=== PATIENT | male | born 1990 | race Caucasian/White ===

== ENCOUNTER 2023-09-18 15:11 | Inpatient (IN) ==
--- NOTE | 2023-09-18 17:08 | Emergency Department Note ---
Impression & Plan Nausea & vomiting, Pancytopenia, Burkitt lymphoma ED Provider Note ED Provider Note NAME: OMEGA SALVADOR AGE:32 SEX: Male : 1990 ARRIVES VIA: Private vehicle INFORMANT: Patient ED PROVIDER(s): Veena Kay DO CHIEF COMPLAINT: Nausea and vomiting, fatigue, tongue swelling HPI: This is a 32-year-old male with a history of Burkitt's lymphoma who presents emergency department with mother at bedside due to concern for increased fatigue today, sense of tongue swelling, as well as nausea and 2 episodes of vomiting. Mom states his last chemo was last week and this was his off week. She states he got a blood transfusion yesterday as an outpatient due to his red blood cell counts being low. She states his platelets are always low but were not low enough to need an infusion for. She states his labs yesterday showed a white blood cell count of 0.5. She states he did well with the transfusion and has not not had reactions as he has had transfusions in the past. She states he woke up with symptoms today. She states he did note that his father picked him up from the blood transfusion and then took him to the local public swimming pool to see friends. She is concerned he could have picked up an illness there. She states he denied shortness of breath or abdominal pain. She states no fevers or chills noted. No recent change in urine or stools. PAST MEDICAL HISTORY:See Below PAST SURGICAL HISTORY:See Below FAMILY HISTORY:See Below SOCIAL HISTORY:See Below HOME MEDICATIONS:See Below ALLERGIES:See Below VITALS:See Below PHYSICAL EXAMINATION: GENERAL: alert, ill appearing, well nourished, no distress, non-toxic EYE EXAM: normal conjunctiva, PERRL and EOM's grossly intact OROPHARYNX: no exudate, no erythema, lips, buccal mucosa, and tongue normal and mucous membranes are moist NECK: supple, no nuchal rigidity, no adenopathy, non-tender LUNGS: Clear to auscultation. Normal chest wall mechanics, no w/r/r HEART: no murmurs, S1 normal and S2 normal, port noted to right anterior superior chest wall ABDOMEN: abdomen soft, non-tender, normo-active bowel sounds, no masses, no rebound or guarding. SKIN: no rashes, petechiae, orbruising, pale UPPER EXTREMITIES: upper extremities are grossly normal. FROM, nml pulses b/l. LOWER EXTREMITIES: No pitting edema. FROM, nml pulses b/l. NEURO EXAM: Normal sensorium, cranial nerves II-XII grossly intact, normal speech, no facial droop,nogross weakness of arms, no gross weakness of legs. Gross sensation intact. No ataxia. Vital Signs: reviewed and remarkable Differential Diagnosis: Bacteremia, sepsis, viral syndrome, medication ADR, SANTA, electrolyte abnormality, as well as others were considered MEDICAL DECISION MAKING: This is a 32-year-old male with a history of recurrent lymphoma currently undergoing chemotherapy treatment who presents due to increased weakness/fatigue as well as 2 episodes of vomiting earlier today and decreased oral intake. Labs drawn and sent, IV established, and patient monitored on telemetry. He was started on IV fluids. I was able to review with mom blood work from yesterday via his [facility] portal as this was done as an outpatient. Labs here today show worsening pancytopenia. Given known history and current presentation I did contact heme-onc. I did recommend use of blood cultures despite national shortage, addition of urinalysis, chest x-ray, and viral panel. I did discuss the pancytopenia and threshold for transfusion this patient did receive an outpatient transfusion of packed RBCs yesterday. She was in agreement with plan for additional transfusion of packed red cells and would also recommend a unit of platelets. Transfusion consent form signed at bedside and patient and mom verbalized understanding. These were ordered and started. Patient initially did feel slightly improved and asked to try things by mouth, however became nauseated again. He was given Zofran and then felt more fatigued again. Patient continued to be fatigued in appearance although denied any current plaints of headache, chest pain, shortness of breath, abdominal pain. Had no further vomiting and no diarrhea while in the emergency department. Patient then developed a fever of 38.1. Heme-onc was updated and case discussed with the hospitalist team for additional evaluation and management. Cefepime and vancomycin was added additionally. Consultation(s): 0656: Discussed with Dr. Jason. Feels counts are likely lower from the effects of chemotherapy last week although patient is still at high risk of infection. Recommends adding chest x-ray, urinalysis, blood culture, and transfusing the patient with packed RBCs as well as 1 unit of platelets. She states if patient remained stable and can be discharged home, would recommend transfusion 2 units of packed RBCs now and have close follow-up with his usual oncologist on Thursday. If this cannot be safely arranged or the patient appears worse, would transfuse 1 unit packed red cells tonight and admit the patient overnight for additional observation. 2320: [facility] and mgmt. ER Treatment Provided: See below Diagnostics Interpreted By Me: -Cardiac Monitoring: An order was placed for continuous cardiac monitoring. The monitor shows a rate of 92 with normal sinus rhythm. -Laboratory studies: As stated above and show below. -Imaging studies: X-ray Chest: A single view study of the chest was reviewed and was negative for cardiomegaly, focal infiltrate, effusion, pulmonary edema, or wide mediastinum. Port noted on the right Triage Nursing Note Reviewed Prior/Outside Records Reviewed - outpatient labs from yesterday Critical Care: Critical care of 48 min performed to assess and manage high likelihood of life- threatening pancytopenia, involving labs and imaging performed with assessment to evaluate weakness and Burkitt's lymphoma diagnosis with frequent reassessment. This time includes bedside time, treatment discussions with patient/family/consultants, documentation time and excludes procedure time. 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) Hypertension Cerebral vasculitis Surgical History S/P tonsillectomy Family History Mother Hypertension Social History Smoking Status: Former smoker Tobacco Type: Cigarettes Age Quit Using Tobacco: 30; Cigarettes Per Day: 10; Smoking End Date: quit 2 years ago; Second Hand Exposure: No; Do You Dip or Chew Tobacco: No; Tobacco Cessation Education Requested by Patient: No Hx Alcohol Use: No Hx Substance Use: No Preferred Language: Bengali Communication Ability: Effective Hand Cloth Examiner Required: No Beliefs That Will Affect Care: None marital status: Single Current Living Situation: Family Current Living Situation Comment: lives with s/o current occupational status: disabled Other Information That Helps Us Care for You: No Feels Safe at Home: Yes Safety Concerns: Feels Safe At This Time Assistive Devices: None Assistive Devices Comment: right chest port Allergies Allergies Allergy/AdvReac Type Severity Reaction Status Date / Time No Known Allergies Allergy Verified 09/18/23 20:24 Home Meds Home Medications Medication Instructions Recorded Confirmed celecoxib 200 mg capsule 200 mg PO QAM 07/02/21 09/18/23 hydrochlorothiazide 12.5 mg tablet 12.5 mg PO DAILY 07/02/21 09/18/23 aspirin 81 mg tablet,delayed 81 mg PO DAILY 12/03/21 09/18/23 release (Brad Low Dose Aspirin) divalproex 500 mg tablet,extended 500 mg PO BID 12/03/21 09/18/23 release 24 hr (Depakote ER) propranolol 40 mg tablet 40 mg PO BID 12/03/21 09/18/23 topiramate 100 mg tablet (Topamax) 100 mg PO BID 12/03/21 09/18/23 Magic Swizzle 15 ml mucous membrane QID MOUTH 09/18/23 09/18/23 IRRITATION acyclovir 400 mg tablet 400 mg PO BID 09/18/23 09/18/23 albuterol sulfate 90 mcg/actuation 2 inh inhalation Q4H PRN Shortness 09/18/23 09/18/23 aerosol inhaler Of Breath Or Wheezing allopurinol 300 mg tablet 300 mg PO QAM 09/18/23 09/18/23 buprenorphine HCl 2 mg sublingual 1 mg sublingual BID 09/18/23 09/18/23 tablet cetirizine 10 mg tablet 10 mg PO QAM 09/18/23 09/18/23 famotidine 20 mg tablet 20 mg PO DAILY 09/18/23 09/18/23 fluconazole 200 mg tablet 400 mg PO QAM 09/18/23 09/18/23 fluticasone 250 mcg-salmeterol 50 1 inh inhalation BID 09/18/23 09/18/23 mcg/dose blistr powdr for inhalation levofloxacin 750 mg tablet 750 mg PO QAM PRN IF ANC <500. 09/18/23 09/18/23 morphine 15 mg immediate release 15 mg PO Q6H PRN Pain 09/18/23 09/18/23 tablet ondansetron HCl 4 mg tablet 4 mg PO Q6H PRN NAUSEA/VOMTING 09/18/23 09/18/23 ondansetron HCl 8 mg tablet 8 mg PO Q8H PRN NAUSEA/VOMITING 09/18/23 09/18/23 pantoprazole 40 mg tablet,delayed 40 mg PO DAILYBB 09/18/23 09/18/23 release potassium chloride 10 mEq 20 meq PO BID 09/18/23 09/18/23 tablet,extended release(part/cryst) sulfamethoxazole 400 1 tab PO QAM 09/18/23 09/18/23 mg-trimethoprim 80 mg tablet Results & Data (ED) Vital Signs Vital Signs - 24 hr 09/18/23 15:15 09/18/23 15:40 09/18/23 15:40 Temperature 36.6 C Temperature Source Temporal Artery Scan Pulse Rate 103 H Pulse Rate from SpO2 Sensor Pulse Rhythm Pulse Strength Respiratory Rate 20 Respiratory Effort / Characteristics Non-Labored Spontaneous Respiratory Depth Normal Blood Pressure 127/87 128/79 128/79 Blood Pressure Mean 100 84 84 Blood Pressure Position Pulse Oximetry 100 Oxygen Delivery Method Room Air Sepsis Recent Fever Within 48 Hours No Sepsis New/Unexplained Change in Mental Status No Sepsis Action Taken by Nursing No Action Required 09/18/23 15:41 09/18/23 15:42 09/18/23 16:06 Temperature Temperature Source Pulse Rate 99 H 100 H 94 H Pulse Rate from SpO2 Sensor 98 H 94 H Pulse Rhythm Pulse Strength Respiratory Rate 17 15 Respiratory Effort / Characteristics Respiratory Depth Blood Pressure Blood Pressure Mean Blood Pressure Position Pulse Oximetry 98 97 Oxygen Delivery Method Sepsis Recent Fever Within 48 Hours Sepsis New/Unexplained Change in Mental Status Sepsis Action Taken by Nursing 09/18/23 16:30 09/18/23 16:30 09/18/23 16:30 Temperature Temperature Source Pulse Rate 89 Pulse Rate from SpO2 Sensor 89 Pulse Rhythm Pulse Strength Respiratory Rate 15 Respiratory Effort / Characteristics Respiratory Depth Blood Pressure 111/67 111/67 Blood Pressure Mean 74 74 Blood Pressure Position Pulse Oximetry 99 Oxygen Delivery Method Sepsis Recent Fever Within 48 Hours Sepsis New/Unexplained Change in Mental Status Sepsis Action Taken by Nursing 09/18/23 16:54 09/18/23 17:00 09/18/23 17:00 Temperature Temperature Source Pulse Rate 85 Pulse Rate from SpO2 Sensor 85 Pulse Rhythm Pulse Strength Respiratory Rate 14 Respiratory Effort / Characteristics Respiratory Depth Blood Pressure 126/80 126/80 Blood Pressure Mean 97 97 Blood Pressure Position Pulse Oximetry 100 Oxygen Delivery Method Sepsis Recent Fever Within 48 Hours Sepsis New/Unexplained Change in Mental Status Sepsis Action Taken by Nursing 09/18/23 17:03 09/18/23 17:33 09/18/23 18:18 Temperature Temperature Source Pulse Rate 90 108 H 92 H Pulse Rate from SpO2 Sensor 89 92 H Pulse Rhythm Pulse Strength Respiratory Rate 15 19 14 Respiratory Effort / Characteristics Respiratory Depth Blood Pressure Blood Pressure Mean Blood Pressure Position Pulse Oximetry 100 99 Oxygen Delivery Method Sepsis Recent Fever Within 48 Hours Sepsis New/Unexplained Change in Mental Status Sepsis Action Taken by Nursing 09/18/23 18:30 09/18/23 18:30 09/18/23 18:30 Temperature Temperature Source Pulse Rate 96 H Pulse Rate from SpO2 Sensor 95 H Pulse Rhythm Pulse Strength Respiratory Rate 14 Respiratory Effort / Characteristics Respiratory Depth Blood Pressure 138/78 138/78 Blood Pressure Mean 94 94 Blood Pressure Position Pulse Oximetry 100 Oxygen Delivery Method Sepsis Recent Fever Within 48 Hours Sepsis New/Unexplained Change in Mental Status Sepsis Action Taken by Nursing 09/18/23 18:30 09/18/23 19:00 09/18/23 19:06 Temperature Temperature Source Pulse Rate 99 H Pulse Rate from SpO2 Sensor 97 H Pulse Rhythm Pulse Strength Respiratory Rate 9 L Respiratory Effort / Characteristics Respiratory Depth Blood Pressure 138/78 Blood Pressure Mean 94 Blood Pressure Position Pulse Oximetry 99 Oxygen Delivery Method Sepsis Recent Fever Within 48 Hours Sepsis New/Unexplained Change in Mental Status Sepsis Action Taken by Nursing 09/18/23 19:20 09/18/23 19:30 09/18/23 19:30 Temperature Temperature Source Pulse Rate 94 H Pulse Rate from SpO2 Sensor Pulse Rhythm Pulse Strength Respiratory Rate 17 Respiratory Effort / Characteristics Respiratory Depth Blood Pressure 127/84 126/78 Blood Pressure Mean 108 101 Blood Pressure Position Pulse Oximetry Oxygen Delivery Method Sepsis Recent Fever Within 48 Hours Sepsis New/Unexplained Change in Mental Status Sepsis Action Taken by Nursing 09/18/23 19:30 09/18/23 19:30 09/18/23 20:00 Temperature Temperature Source Pulse Rate 95 H Pulse Rate from SpO2 Sensor Pulse Rhythm Pulse Strength Respiratory Rate 14 Respiratory Effort / Characteristics Respiratory Depth Blood Pressure 126/78 126/78 Blood Pressure Mean 101 101 Blood Pressure Position Pulse Oximetry Oxygen Delivery Method Sepsis Recent Fever Within 48 Hours Sepsis New/Unexplained Change in Mental Status Sepsis Action Taken by Nursing 09/18/23 20:12 09/18/23 20:24 09/18/23 20:24 Temperature 36.9 C Temperature Source Oral Pulse Rate 97 H 102 H Pulse Rate from SpO2 Sensor Pulse Rhythm Regular Pulse Strength Normal Respiratory Rate 17 17 Respiratory Effort / Characteristics Respiratory Depth Blood Pressure 135/77 135/77 Blood Pressure Mean 96 90 Blood Pressure Position Lying Pulse Oximetry 100 100 Oxygen Delivery Method Room Air Sepsis Recent Fever Within 48 Hours Sepsis New/Unexplained Change in Mental Status Sepsis Action Taken by Nursing 09/18/23 20:43 09/18/23 20:58 09/18/23 21:28 Temperature 37.4 C 37.7 C H 37.3 C Temperature Source Oral Oral Oral Pulse Rate 105 H 102 H 103 H Pulse Rate from SpO2 Sensor Pulse Rhythm Regular Regular Pulse Strength Normal Normal Respiratory Rate 16 16 18 Respiratory Effort / Characteristics Respiratory Depth Blood Pressure 140/93 159/87 H 147/77 H Blood Pressure Mean 108 111 100 Blood Pressure Position Lying Lying Pulse Oximetry 100 100 100 Oxygen Delivery Method Sepsis Recent Fever Within 48 Hours Sepsis New/Unexplained Change in Mental Status Sepsis Action Taken by Nursing 09/18/23 21:28 09/18/23 22:28 09/18/23 23:28 Temperature 37.3 C 37.8 C H 38.1 C H Temperature Source Oral Oral Oral Pulse Rate 100 H 98 H 104 H Pulse Rate from SpO2 Sensor Pulse Rhythm Regular Regular Regular Pulse Strength Normal Normal Normal Respiratory Rate 16 16 17 Respiratory Effort / Characteristics Respiratory Depth Blood Pressure 147/77 H 123/71 136/83 Blood Pressure Mean 100 88 100 Blood Pressure Position Lying Lying Lying Pulse Oximetry 100 99 100 Oxygen Delivery Method Sepsis Recent Fever Within 48 Hours Sepsis New/Unexplained Change in Mental Status Sepsis Action Taken by Nursing 09/19/23 00:30 09/19/23 00:50 09/19/23 01:05 Temperature 36.8 C 36.6 C 37.4 C Temperature Source Oral Oral Oral Pulse Rate 103 H 102 H 108 H Pulse Rate from SpO2 Sensor Pulse Rhythm Regular Regular Regular Pulse Strength Normal Normal Normal Respiratory Rate 14 17 19 Respiratory Effort / Characteristics Respiratory Depth Blood Pressure 132/73 129/65 108/65 Blood Pressure Mean 92 86 79 Blood Pressure Position Lying Lying Lying Pulse Oximetry 98 99 98 Oxygen Delivery Method Sepsis Recent Fever Within 48 Hours Sepsis New/Unexplained Change in Mental Status Sepsis Action Taken by Nursing 09/19/23 01:35 Temperature 37.6 C Temperature Source Oral Pulse Rate 107 H Pulse Rate from SpO2 Sensor Pulse Rhythm Regular Pulse Strength Normal Respiratory Rate 14 Respiratory Effort / Characteristics Respiratory Depth Blood Pressure 134/74 Blood Pressure Mean 94 Blood Pressure Position Lying Pulse Oximetry 100 Oxygen Delivery Method Sepsis Recent Fever Within 48 Hours Sepsis New/Unexplained Change in Mental Status Sepsis Action Taken by Nursing Laboratory Data 09/19/23 10:58 09/19/23 10:58 Lab Results 09/18/23 09/18/23 09/18/23 Range/Units 15:40 18:51 18:55 WBC 0.11 L* (4.8-10.8) K/ul RBC 2.13 L (4.70-6.10) M/uL Hgb 6.4 L* (14.0-18.0) g/dl Hct 18.8 L* (42.0-52.0) % MCV 88.3 (80.0-100.0) fL MCH 30.0 (25.0-34.0) pg MCHC 34.0 (32.0-36.0) g/dL RDW Std Deviation 54.6 H (36.4-46.3) fL RDW Coeff of Anastasiia 17.0 H (11.5-14.5) % Plt Count 14 L* (130-400) K/uL Neut # (Auto) < 0.50 L* (1.40-6.50) K/uL Sodium 138 (136-145) mmol/L Potassium 3.2 L (3.5-5.1) mmol/L Chloride 107 (98-107) mmol/L Carbon Dioxide 24 (21-32) mmol/L Anion Gap 7 (3-11) BUN 11 (6-23) mg/dl Creatinine 0.55 L (0.6-1.4) mg/dl Est Cr Clr Drug Dosing 236.6 ml/min Est GFR ( Amer) > 150.0 ml/min Est GFR (Non-Af Amer) 136.0 ml/min BUN/Creatinine Ratio 20.0 (10-20) Glucose 134 H (70-99(Fasting)) mg/dl Calcium 9.3 (8.6-10.3) mg/dl Magnesium 1.7 (1.7-2.4) mg/dl Total Bilirubin 0.8 (0.2-1.0) mg/dl AST 10 L (13-39) U/L ALT 20 (7-52) U/L Alkaline Phosphatase 70 (34-104) U/L Total Protein 6.0 (6.0-8.3) gm/dl Albumin 3.9 (3.4-5.0) gm/dl Globulin 2.1 L (2.5-4.0) gm/dl Albumin/Globulin Ratio 1.9 (0.9-2) Urine Color Yellow Urine Appearance Clear (Clear) Urine pH 7.0 (4.5-7.5) Ur Specific [place] 1.015 (1.000-1.030) Urine Protein Negative (Negative) Urine Glucose (UA) Negative (Negative) Urine Ketones Negative (Negative) Urine Blood Negative (Negative) Urine Nitrite Negative (Negative) Urine Bilirubin Negative (Negative) Urine Urobilinogen Negative (Negative) Ur Leukocyte Esterase Negative (Negative) Adenovirus (PCR) Not Detected (NotDetected) B. pertussis DNA (PCR) Not Detected (NotDetected) B.parapertussis DNA PCR Not Detected (NotDetected) C. pneumoniae DNA (PCR) Not Detected (NotDetected) Coronavirus OC43 (PCR) Not Detected (NotDetected) Coronavirus HKU1 (PCR) Not Detected (NotDetected) Coronavirus 229E (PCR) Not Detected (NotDetected) SARS-CoV-2 (PCR) Not Detected (NotDetected) Coronavirus NL63 (PCR) Not Detected (NotDetected) Human Metapneumovir PCR Not Detected (NotDetected) Influenza Type A (PCR) Not Detected (NotDetected) Influenza Type B (PCR) Not Detected (NotDetected) M. pneumoniae (PCR) Not Detected (NotDetected) Parainfluenza 1 (PCR) Not Detected (NotDetected) Parainfluenza 2 (PCR) Not Detected (NotDetected) Parainfluenza 3 (PCR) Not Detected (NotDetected) Parainfluenza 4 (PCR) Not Detected (NotDetected) RSV (PCR) Not Detected (NotDetected) Entero/Rhino (PCR) Not Detected (NotDetected) Blood Type O Positive Blood Type Recheck Antibody Screen NEGATIVE Crossmatch See Detail 09/18/23 Range/Units 19:21 WBC (4.8-10.8) K/ul RBC (4.70-6.10) M/uL Hgb (14.0-18.0) g/dl Hct (42.0-52.0) % MCV (80.0-100.0) fL MCH (25.0-34.0) pg MCHC (32.0-36.0) g/dL RDW Std Deviation (36.4-46.3) fL RDW Coeff of Anastasiia (11.5-14.5) % Plt Count (130-400) K/uL Neut # (Auto) (1.40-6.50) K/uL Sodium (136-145) mmol/L Potassium (3.5-5.1) mmol/L Chloride (98-107) mmol/L Carbon Dioxide (21-32) mmol/L Anion Gap (3-11) BUN (6-23) mg/dl Creatinine (0.6-1.4) mg/dl Est Cr Clr Drug Dosing ml/min Est GFR ( Amer) ml/min Est GFR (Non-Af Amer) ml/min BUN/Creatinine Ratio (10-20) Glucose (70-99(Fasting)) mg/dl Calcium (8.6-10.3) mg/dl Magnesium (1.7-2.4) mg/dl Total Bilirubin (0.2-1.0) mg/dl AST (13-39) U/L ALT (7-52) U/L Alkaline Phosphatase (34-104) U/L Total Protein (6.0-8.3) gm/dl Albumin (3.4-5.0) gm/dl Globulin (2.5-4.0) gm/dl Albumin/Globulin Ratio (0.9-2) Urine Color Urine Appearance (Clear) Urine pH (4.5-7.5) Ur Specific [place] (1.000-1.030) Urine Protein (Negative) Urine Glucose (UA) (Negative) Urine Ketones (Negative) Urine Blood (Negative) Urine Nitrite (Negative) Urine Bilirubin (Negative) Urine Urobilinogen (Negative) Ur Leukocyte Esterase (Negative) Adenovirus (PCR) (NotDetected) B. pertussis DNA (PCR) (NotDetected) B.parapertussis DNA PCR (NotDetected) C. pneumoniae DNA (PCR) (NotDetected) Coronavirus OC43 (PCR) (NotDetected) Coronavirus HKU1 (PCR) (NotDetected) Coronavirus 229E (PCR) (NotDetected) SARS-CoV-2 (PCR) (NotDetected) Coronavirus NL63 (PCR) (NotDetected) Human Metapneumovir PCR (NotDetected) Influenza Type A (PCR) (NotDetected) Influenza Type B (PCR) (NotDetected) M. pneumoniae (PCR) (NotDetected) Parainfluenza 1 (PCR) (NotDetected) Parainfluenza 2 (PCR) (NotDetected) Parainfluenza 3 (PCR) (NotDetected) Parainfluenza 4 (PCR) (NotDetected) RSV (PCR) (NotDetected) Entero/Rhino (PCR) (NotDetected) Blood Type Blood Type Recheck O Positive Antibody Screen Crossmatch Administered Medications Acetaminophen (Acetaminophen 325 Mg Tab) 650 mg PO Q4H PRN PRN Reason: Pain or Fever Stop: 10/19/23 04:36 Last Admin: 09/19/23 09:07 Dose: 650 mg Documented By: LUIS Acyclovir (Acyclovir 400 Mg Tab) 400 mg PO BID [facility] Stop: 10/19/23 08:59 Last Admin: 09/19/23 08:05 Dose: 400 mg Documented By: LUIS Allopurinol (Allopurinol 300 Mg Tab) 300 mg PO QAM [facility] Stop: 10/19/23 08:59 Last Admin: 09/19/23 08:06 Dose: 300 mg Documented By: LUIS Aspirin (Aspirin 81 Mg Ectab) 81 mg PO DAILY [facility] [place] Stop: 10/19/23 08:59 Last Admin: 09/19/23 08:56 Dose: Not Given Documented By: LUIS Buprenorphine HCl (Buprenorphine Hcl 2 Mg Subl) 1 mg SL BID [facility] Stop: 10/19/23 08:59 Last Admin: 09/19/23 08:15 Dose: 1 mg Documented By: LUIS Cetirizine HCl (Cetirizine Hcl 10 Mg Tablet) 10 mg PO QAM [facility] Stop: 10/19/23 08:59 Last Admin: 09/19/23 08:06 Dose: 10 mg Documented By: LUIS Divalproex Sodium (Divalproex Extended Release 500 Mg Tab) 500 mg PO BID [facility] [place] Stop: 10/19/23 08:59 Last Admin: 09/19/23 08:05 Dose: 500 mg Documented By: LUIS Famotidine (Famotidine 20 Mg Tab) 20 mg PO DAILY [facility] Stop: 10/19/23 08:59 Last Admin: 09/19/23 08:06 Dose: 20 mg Documented By: LUIS Fluconazole (Fluconazole 100 Mg Tab) 400 mg PO QAM [facility] Stop: 10/19/23 08:59 Last Admin: 09/19/23 08:06 Dose: 400 mg Documented By: LUIS Fluticasone/Vilanterol (Fluticasone/Vilanterol 200/25mcg 14 Puffs/Inhaler) 1 puffs INH DAILY [facility] Stop: 10/19/23 08:59 Last Admin: 09/19/23 07:54 Dose: 1 puffs Documented By: LUIS Sodium Chloride (Nss) 1,000 mls @ 80 mls/hr IV .[id number] [facility] Stop: 10/19/23 04:36 Last Admin: 09/19/23 05:43 Dose: 80 mls/hr Documented By: MIKO Cefepime HCl 2,000 mg/ Syringe 20 mls @ 5 mls/min IV Q8H [facility]; Protocol Stop: 09/26/23 07:59 Last Admin: 09/19/23 07:55 Dose: 5 mls/min Documented By: LUIS Vancomycin HCl 1,500 mg/ (Sodium Chloride) 530 mls @ 200 mls/hr IV Q8H [facility] [place] Stop: 09/21/23 07:59 Last Infusion: 09/19/23 10:54 Dose: Infused Documented By: Admin: 09/19/23 07:56 Dose: 200 mls/hr Documented By: LUIS Multi-Ingredient Mouthwash/Gargle (First - Mouthwash Blm 119 Ml) 15 ml PO QID [facility] Stop: 10/19/23 08:59 Last Admin: 09/19/23 07:54 Dose: 15 ml Documented By: LUIS Pantoprazole Sodium (Pantoprazole 40 Mg Tab) 40 mg PO DAILYBB JARETH Stop: 10/19/23 06:29 Last Admin: 09/19/23 06:24 Dose: 40 mg Documented By: MIKO Potassium Chloride (Potassium Chloride Crtab 20 Meq Tabcr) 20 meq PO BID JARETH Stop: 10/19/23 08:59 Last Admin: 09/19/23 08:06 Dose: 20 meq Documented By: LUIS Propranolol HCl (Propranolol Hcl 20 Mg Tab) 40 mg PO BID JARETH Stop: 10/19/23 08:59 Last Admin: 09/19/23 08:06 Dose: 40 mg Documented By: LUIS Topiramate (Topiramate 100 Mg Tab) 100 mg PO BID JAR[facility] Stop: 10/19/23 08:59 Last Admin: 09/19/23 08:06 Dose: 100 mg Documented By: LUIS Discontinued Medications Acetaminophen (Acetaminophen 325 Mg Tab) 650 mg PO NOW ONE Stop: 09/19/23 05:59 Last Admin: 09/19/23 06:24 Dose: 650 mg Documented By: MIKO Diphenhydramine HCl (Diphenhydramine 50 Mg/Ml Vial) 25 mg IV NOW STA Stop: 09/18/23 20:59 Last Admin: 09/18/23 21:05 Dose: 25 mg Documented By: JUAN Furosemide (Furosemide Inj 20 Mg/2 Ml Vial) 20 mg IV ONE ONE Stop: 09/19/23 05:58 Last Admin: 09/19/23 06:41 Dose: 20 mg Documented By: MIKO Sodium Chloride (Nss) 1,000 mls @ 999 mls/hr IV .Q1H1M ONE Stop: 09/18/23 18:06 Last Infusion: 09/18/23 18:22 Dose: Infused Documented By: Admin: 09/18/23 17:17 Dose: 999 mls/hr Documented By: CHRISTINA Sodium Chloride (Nss) 250 mls @ 15 mls/hr IV .[id number] PRN PRN Reason: For Transfusion Duration Stop: 09/19/23 04:35 Last Infusion: 09/19/23 04:42 Dose: Infused Documented By: Admin: 09/18/23 20:28 Dose: 15 mls/hr Documented By: JUAN Famotidine (Pepcid 20mg Iv Push) 20 mg in 5 mls @ 2.5 mls/min IV NOW STA Stop: 09/18/23 20:59 Last Admin: 09/18/23 21:06 Dose: 2.5 mls/min Documented By: JUAN Vancomycin HCl 2,250 mg/ (Sodium Chloride) 545 mls @ 200 mls/hr IV NOW ONE Stop: 09/19/23 02:24 Last Infusion: 09/19/23 04:43 Dose: Infused Documented By: Admin: 09/19/23 00:51 Dose: 200 mls/hr Documented By: JUAN Cefepime HCl (Maxipime) 2,000 mg in 20 mls @ 5 mls/min IV NOW STA; Protocol Stop: 09/18/23 23:44 Last Admin: 09/18/23 23:58 Dose: 5 mls/min Documented By: JUAN Acetaminophen (Ofirmev) 1,000 mg in 100 mls @ 400 mls/hr IV NOW STA Stop: 09/18/23 23:56 Last Infusion: 09/19/23 00:14 Dose: Infused Documented By: Admin: 09/18/23 23:58 Dose: 400 mls/hr Documented By: JUAN Potassium Chloride (K Bo / Wtr) 10 meq in 100 mls @ 100 mls/hr IV Q1H JARETH Stop: 09/19/23 07:36 Last Infusion: 09/19/23 08:56 Dose: Infused Documented By: Admin: 09/19/23 07:53 Dose: 100 mls/hr Documented By: Infusion: 09/19/23 07:40 Dose: Infused Documented By: Admin: 09/19/23 06:40 Dose: 100 mls/hr Documented By: Infusion: 09/19/23 06:40 Dose: Infused Documented By: Admin: 09/19/23 05:42 Dose: 100 mls/hr Documented By: MIKO Magnesium Sulfate/Dextrose (Magnesium Sulfate / D5w) 1 gm in 100 mls @ 50 mls/hr IV ONE ONE Stop: 09/19/23 07:54 Last Infusion: 09/19/23 08:33 Dose: Infused Documented By: Admin: 09/19/23 06:22 Dose: 50 mls/hr Documented By: MIKO Ondansetron HCl (Ondansetron 4 Mg Od Tab) 4 mg PO NOW STA Stop: 09/18/23 20:49 Last Admin: 09/18/23 20:52 Dose: 4 mg Documented By: JUAN Potassium Chloride (Potassium Chloride Crtab 20 Meq Tabcr) 20 meq PO NOW STA Stop: 09/19/23 06:00 Last Admin: 09/19/23 06:24 Dose: 20 meq Documented By: MIKO Potassium Chloride (Potassium Chloride Crtab 20 Meq Tabcr) 20 meq PO NOW STA Stop: 09/19/23 12:19 Last Admin: 09/19/23 12:29 Dose: 20 meq Documented By: WS Imaging Data Radiologist's Impression: Chest X-Ray 09/18/23 18:29 XR chest 1V portable HISTORY: weakness COMPARISON: Chest 04/19/2023. FINDINGS: There are low lung volumes. The patient's head partially obscures the lung apices. No pneumothorax. No pleural effusions. The lungs are clear. The cardiac silhouette remains top normal in size. A right jugular Port-A-Cath terminates in the SVC. No acute fractures. IMPRESSION: No acute process. ACT 112: Negative or not required by law. Electronically signed by: Mayco Mcmillan M.D. 09/18/2023 6:58 PM Discharge Plan Visit Data Chief Complaint: Allergic Reaction Stated Complaint: POSSIBLE REACTION TO BLOOD TRANSFUSIN ED Provider: Veena Kay Discharge Problem: Nausea & vomiting, Pancytopenia, Burkitt lymphoma Patient Disposition: Admitted As Inpatient Discharge Instructions Interventions: ED Discharge Assessment Last Done: 09/19/23 04:07
[2023-09-18] MEDS: SODIUM CHLORIDE 0.9% 1,000 ML IV ONE (17:17)
[2023-09-18 17:47] LABS: Alanine Aminotransferase 20 U/L (7-52); Albumin Globulin Ratio 1.9 (0.9-2); Albumin Level 3.9 gm/dl (3.4-5.0); Alkaline Phosphatase 70 U/L (34-104); Anion Gap 7 (3-11); Aspartate Aminotransferase 10 U/L (13-39); Bilirubin,Total 0.8 mg/dl (0.2-1.0); Blood Urea Nitrogen 11 mg/dl (6-23); Calcium 9.3 mg/dl (8.6-10.3); Carbon Dioxide 24 mmol/L (21-32); Chloride 107 mmol/L (98-107); Creatinine Clr Calc Pharmacy 236.6 ml/min; Est GFR (African American) > 150.0 ml/min; Globulin 2.1 gm/dl (2.5-4.0); Glucose 134 mg/dl (70-99(Fasting)); Magnesium 1.7 mg/dl (1.7-2.4); Potassium 3.2 mmol/L (3.5-5.1); Sodium 138 mmol/L (136-145)
[2023-09-18 17:59] LABS: Hematocrit (blood only) 18.8 % (42.0-52.0); Hemoglobin 6.4 g/dl (14.0-18.0); Mean Corpuscular Volume 88.3 fL (80.0-100.0); Neutrophils # (auto) < 0.50 K/uL (1.40-6.50); Platelet Count 14 K/uL (130-400); RDW Standard Deviation 54.6 fL (36.4-46.3); Red Blood Count 2.13 M/uL (4.70-6.10); White Blood Count 0.11 K/ul (4.8-10.8)
[2023-09-18] MEDS ORDERED: SODIUM CHLORIDE 0.9% 250 ML IV PRN (18:43)
--- NOTE | 2023-09-18 19:00 | XRay Report ---
XR chest 1V portable HISTORY: weakness COMPARISON: Chest 04/19/2023. FINDINGS: There are low lung volumes. The patient's head partially obscures the lung apices. No pneum othorax. No pleural effusions. The lungs are clear. The cardiac silhouette remains top normal in size . A right jugular Port-A-Cath terminates in the SVC. No acute fractures. IMPRESSION: No acute process. ACT 112: Negative or not required by law. Electronically signed by: Mayco Mcmillan M.D. 09/18/2023 6:58 PM
[2023-09-18 19:24] LABS: Appearance Urine Clear (Clear); Bilirubin Urine Negative (Negative); Blood Urine Negative (Negative); Color Urine Yellow; Glucose Urine UA Negative (Negative); Ketones Urine Negative (Negative); Leukocyte Esterase Urine Negative (Negative); Nitrite Urine Negative (Negative); Protein Urine Negative (Negative); Specific Gravity Urine 1.015 (1.000-1.030); Urobilinogen Urine Negative (Negative)
[2023-09-18 20:02] LABS: Adenovirus PCR Not Detected (NotDetected); Bordetella parapertussis PCR Not Detected (NotDetected); Bordetella pertussis PCR Not Detected (NotDetected); Chlamydia pneumoniae PCR Not Detected (NotDetected); Coronavirus 229E PCR Not Detected (NotDetected); Coronavirus CoV-2 (COVID19)PCR Not Detected (NotDetected); Coronavirus HKU1 PCR Not Detected (NotDetected); Coronavirus NL63 PCR Not Detected (NotDetected); Coronavirus OC43PCR Not Detected (NotDetected); Human Metapneumovirus PCR Not Detected (NotDetected); Influenza A PCR Not Detected (NotDetected); Influenza B PCR Not Detected (NotDetected); Mycoplasma pneumoniae PCR Not Detected (NotDetected); Parainfluenza Virus 1 PCR Not Detected (NotDetected); Parainfluenza Virus 2 PCR Not Detected (NotDetected); Parainfluenza Virus 3 PCR Not Detected (NotDetected); Parainfluenza Virus 4 PCR Not Detected (NotDetected); Respiratory Syncytial VirusPCR Not Detected (NotDetected); Rhinovirus/Enterovirus PCR Not Detected (NotDetected)
[2023-09-18] MEDS: SODIUM CHLORIDE 0.9% 250 ML IV PRN (20:28)
[2023-09-18] MEDS: ONDANSETRON 4 MG OD TAB PO STA (20:52)
[2023-09-18] MEDS: diphenhydrAMINE 50 MG/ML VIAL IV STA (21:05)
[2023-09-18] MEDS: FAMOTIDINE 20MG IV PUSH 20 MG/5 ML SYR IV STA (21:06)
--- OUTSIDE RECORDS SUMMARY | 2023-09-18 21:14 | External Medical Summary | Summary of Care ---
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)*; Generalized weakness; Encounter to discuss test results Allergies No known active allergiesdocumented as of this encounter (statuses as of 09/17/2023) Medications Medication Sig Dispensed Refills Start Date End Date Status ASPIRIN 81 MG PO TABS one tablet daily Active Divalproex Sodium ER 500 MG Oral Tablet Extended Release 24 Hour (Depakote ER) TAKE ONE TABLET BY MOUTH TWICE A DAY (MORNING AND BEFORE BEDTIME) -DO NOT CUT, CRUSH OR CHEW 180 Tablet 3 08/04/2022 Active Additional Information Patient taking differently: 500 mg Oral QHS, Reported on 06/02/2023 Propranolol HCl 40 MG Oral Tablet (Inderal)Indications :Migraine with aura and without status migrainosus, not intractable,HTN, goal below 140/90 TAKE ONE TABLET BY MOUTH TWICE A DAY (IN THE MORNING AND BEFORE BEDTIME) 180 Tablet 3 02/23/2023 Active hydroCHLOROthiazide 12.5 MG Oral Capsule (Hydrodiuril)Indicat ions:History of petit-mal seizures Take 1 Capsule by mouth in the morning. 90 Capsule 1 03/02/2023 Active Celecoxib 200 MG Oral Capsule (CeleBREX)Indication s:Migraine with aura and without status migrainosus, not intractable Take 1 Capsule by mouth in the morning. Every morning.. 30 Capsule 3 05/01/2023 Active Pantoprazole Sodium 40 MG Oral Tablet Delayed Release (Protonix)Indication s:Gastroesophageal reflux disease with esophagitis without hemorrhage TAKE ONE TABLET BY MOUTH EVERY MORNING 30 MINUTES BEFORE THE FIRST MEAL OF THE DAY. DO NOT CRUSH,SPLIT OR CHEW THE TABLET 30 Tablet 5 05/22/2023 Active Proventil HFA 108 (90 Base) MCG/ACT Inhalation Aerosol SolutionIndications: Chronic cough Inhale 2 Puffs by mouth every 4 hours as needed for Wheezing, Shortness of Breath or Cough. 18 g 1 06/09/2023 Active Fluticasone-Salmeter ol 250-50 MCG/ACT Inhalation Aerosol Powder Breath Activated (Advair Diskus)Indications:C hronic cough INHALE ONE PUFF BY MOUTH EVERY MORNING AND ONE PUFF BEFORE BEDTIME 60 Each 5 06/11/2023 Active Sulfamethoxazole-Tri methoprim 400-80 MG Oral Tablet (Bactrim) Take 1 Tablet by mouth in the morning. 30 Tablet 1 07/08/2023 Active Sennosides-Docusate Sodium 8.6-50 MG Oral Tablet (Senokot-S) Take 2 Tablets by mouth in the morning and 2 Tablets in the evening. 60 Tablet 1 07/07/2023 Active Naloxone HCl 4 MG/0.1ML Nasal Liquid (Narcan Nasal) Administer 1 nasal spray device into one nostril as needed for suspected opioid overdose. Seek medical help immediately. If no response after 2-3 minutes, administer second nasal spray device in other nostril. 2 Each 3 07/07/2023 Active Magic Swizzle (Lidocaine-Benadryl- Maalox) oral solution Swish and spit 15 mL 4 times a day as needed for Sore throat (oral pain). 900 mL 07/14/2023 Active Prochlorperazine Maleate 5 MG Oral Tablet (Compazine)Indicatio ns:Chemotherapy induced nausea and vomiting Take 1 Tablet by mouth every 8 hours as needed for Nausea. 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 60 Tablet 1 07/24/2023 Active Lidocaine-Prilocaine 2.5-2.5 % External Cream (Emla)Indications:Bu rkitt lymphoma of intra-abdominal lymph nodes (HCC),Encounter for venous access device care Apply topically to affected area as needed prior to accessing port for chemotherapy and blood work. 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 Take 1 tab by mouth daily throughout all chemotherapy cycles.. 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 Take 2 tabs Daily for 4 days after starting chemotherapy. 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 Take twice a day with food on Days 1-5 of EPOCH treatment only. 75 Tablet 5 07/27/2023 Active Morphine Sulfate 15 MG Oral Tablet (Msir)Indications:Ca ncer related pain Take 1 Tablet by mouth every 6 hours as needed for Pain, Breakthrough. 30 Tablet 08/14/2023 Active Potassium Chloride Ashley ER 10 MEQ Oral Tablet Extended ReleaseIndications:H ypokalemia TAKE TWO TABLETS BY MOUTH EVERY MORNING AND TWO TABLETS BEFORE BEDTIME. DO ALL THIS FOR 14 DAYS 56 Tablet 08/24/2023 Active Buprenorphine HCl 2 MG Sublingual Tablet Sublingual (Subutex)Indications :Cancer related pain Place 0.5 Tablets under the tongue in the morning and 0.5 Tablets in the evening. 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 When ANC less than 500. 30 Tablet 08/28/2023 Active Topiramate 100 MG Oral Tablet (topAMAX) Take 1 Tablet by mouth in the morning and 1 Tablet before bedtime. 180 Tablet 3 08/28/2023 Active Cetirizine HCl 10 MG Oral Tablet (ZyrTEC)Indications: Seasonal allergies Take 1 Tablet by mouth in the morning. 30 Tablet 09/09/2023 4 Active Potassium Chloride Ashley ER 10 MEQ Oral Tablet Extended ReleaseIndications:H ypokalemia TAKE TWO TABLETS BY MOUTH TWICE A DAY (MORNING AND BEFORE BEDTIME) 56 Tablet 09/11/2023 Active documented as of this encounter (statuses as of 09/17/2023) Active Problems Patient Care Coordination No te Formatting of this note migh t be different from the original. Patient receiving home chemo infusion and gets disconnected in the [facility]. 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 06/25/2023 Hyperuricemia 06/25/2023 At high risk of tumor lysis syndrome 06/25/2023 History of immunosuppression therapy 06/25/2023 Cancer related pain 06/25/2023 Hypokalemia 06/22/2023 Neoplasm related pain 06/22/2023 Goals of care, counseling/discussion 06/22/2023 Kidney stones 05/21/2023 HTN, goal below 140/90 04/20/2023 Visual field defect due to a nd not concurrent with cerebrovascular accident (CVA) 04/22/2022 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 Overview: Follows in [place] q6m History of petit-mal seizures 03/07/2016 Tobacco use disorder 01/01/2016 Migraine with aura and witho ut status migrainosus, not intractable 12/18/2014 Gastroesophageal reflux disease with esophagitis 12/18/2014 Adjustment disorder with depressed mood 08/15/19 10 documented as of this encounter (statuses as of 09/17/2023) Resolved Problems Problem Noted Date Diagnosed Date Resolved Date Encounter for palliative care 07/07/2023 07/20/2023 Admission for antineoplastic chemotherapy 06/28/2023 07/20/2023 Therapeutic opioid induced constipation 06/22/2023 07/20/2023 Palliative care encounter 06/22/2023 Retroperitoneal mass 06/21/2023 024 Aspiration pneumonitis 06/04/202204/19 Pneumonia of left lower lobe due to infectious organism 07/05/2021 07/20/2023 Muscle spasm 11/29/2020 11/29/2020 Tenosynovitis of ankle 02/23/202011/29 Overview: left medial ankle. 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 08/14/2009 03/07/2016 Attention deficit hyperactiv ity disorder (ADHD) 08/14/2009 12/18/2014 OSTEOARTHRITIS 08/14/2009 03/07/2016 documented as of this encounter (statuses as of 09/17/2023) Immunizations Name Administration Dates Next Due DT - Diptheria/Tetanus (PEDS) 10/09/2005 DTaP Dipth/Tet/Acell Pertussis (Infanrix), Peds 04/23/1994,06/05/1989,03/30/1989,01/23 Haemophilius B (HIB), unspecified 03/16/1990 IPV - Polio Virus Vaccine (Inact) 1994,06/09/1990,06/05/1989,03/30,01/23/1989 MMR - Measles/Mumps/Rubella Vaccine 04/23/1994 Meningococcal Conjugate Vacc ine (Menactra/Menveo) 04/09/2007 OPV - Polio Virus Vaccine (Oral) 995,06/09/1990,06/05/1989,03/30,01/23/1989 PPD 05/15/1994,03/18/1990 Pneumococcal Polysaccharide PPV23 (Pneumovax) 01/23/2017 Seasonal Influenza, Quadrivalent, ID 03/2016,11/30/2015,10/31/2014,10/19,11/18/2012,01/09/2009,12/16/2007 ,01/18/2007 Seasonal Influenza, Split, I IV3, With Preserve, Inj 11/17/2016,11/30/2015,10/31/2014,10/19,11/18/2012 TDAP (age 10 and older)(Boostrix) 10/19/2013 documented as of this encounter Social History Tobacco Use Types Packs/Day Years Used Date Smoking Tobacco: Former Cigarettes 2 7.2 0 05/17/2014 - 07/17/2021 Passive Smoke Exposure: Past Smokeless Tobacco: Never Tobacco Cessation:Counseling Given: Not Answered Comments:4-5 cigs/day Alcohol Use Standard Drinks/Week Comments Yes 0 (1 standard drink = 0.6 oz pure alcohol) rarely - only on my birthday and new years PHQ-2 Answer Date Recorded PHQ Adult Total Score 1 07/08/2023 Hunger Vital Sign Answer Date Recorded Within the past 12 months, y ou worried that your food would run out before you got the money to buy more. Never true Within the past 12 months, t he food you bought just didn't last and you didn't have money to get more. Sometimes true Childcare Answer Date Recorded Do you feel overwhelmed with taking care of a child, family member or friend? No 07/08/2023 Does your family need help f inding childcare? (Household - for ages 0-17 years) Not on file 07/08/2023 Clothing Answer Date Recorded Have you been unable to get clothing when it was really needed? No 07/08/2023 Is your family able to get c lothes or diapers when needed? (Household - for ages 0-17 years) Not on file 07/08/2023 Personal Safety Answer Date Recorded Do you feel unsafe or have concerns for your saf ety? No 07/13/2023 Do you have concerns for you r family's safety? (Household - for ages 0-17 years) Not on file 07/13/2023 Utilities Answer Date Recorded Do you have trouble paying y our heating, water, or electric bill? No 07/13/2023 Is your family able to pay t he heat, water, or electric bill? (Household - for ages 0-17 years) Not on file 07/13/2023 Does your family have access to good internet? (Household - for ages 0-17 years) Not on file 07/13/2023 Employment Status Answer Date Recorded Are you unemployed or without regular income? No 07/08/2023 Does the household have a re gular source of income? (Household - for ages 0-17 years) Not on file 07/08/2023 Social Connections Answer Date Recorded How often do you feel lonely or isolated from th ose around you? Never 07/08/2023 Financial Resource Strain Answer Date R ecorded Do you have any trouble payi ng for your medications, or do you think you might in the future? No 07/08/2023 Does your family have troubl e paying for medicine? (Household - for ages 0-17 years) Not on file 07/08/2023 Transportation Needs Answer Date Record ed READ ONLY Do you have troubl e getting a ride to medical visits or work? Never True 07/13/2023 Does your family have a hard time getting a ride to doctors visits? (Household - for ages 0-17 years) Not on file 07/13/2023 Has lack of transportation k ept you from medical appointments, meetings, work, or from getting things needed for daily living? Check all that apply. (Adult - for ages 18 years and over) Not on file 07/13/2023 Do you (or your family) have trouble finding or paying for a ride (transportation)? (Household - for ages 0-17 years) Not on file 07/13/2023 Housing Stability Answer Date Recorded Do you currently live in a s helter or have no steady place to sleep at night? No 07/13/2023 READ ONLY Do you think you a re at risk of becoming homeless? No 07/13/2023 Does your family worry about paying for your home or becoming homeless? (Household - for ages 0-17 years) Not on file 0 07/13/2023 Are you homeless or worried that you might be in the future? (Adult - for ages 18 years and over) Not on file Are you (or your family) leonila eless or worried that you might be in the future? (Household - for ages 0-17 years) Not on file Food Insecurity Answer Date Recorded Do you need food for this week? No 07/13/2023 Are you able to get enough f ood for your family? (Household - for ages 0-17 years) Not on file 07/13/2023 Does your family need food t his week? (Household - for ages 0-17 years) Not on file 07/13/2023 Do you always have enough fo od for your family? (Household - for ages 0-17 years) Not on file 07/13/2023 Sex and Gender Information Value Date Recorded Sex Assigned at Male 06/11/2023 12:02 PM EDT Gender Identity Male 06/11/2023 12:02 PM EDT Sexual Orientation Straight 06/11/2023 12 :02 PM EDT Job Start Date Occupation Industry Not on file Not on file Not on file documented as of this encounter Last Filed Vital Signs Vital Sign Reading Time Taken Comments Blood Pressure 121/72 09/17/2023 11:11 AM EDT Pulse 89 09/17/2023 11:11 AM EDT Temperature 37.1 C (98.8 F) 09/17/2023 11:11 AM E DT Respiratory Rate - - Oxygen Saturation 100% 09/17/2023 11:11 AM EDT Inhaled Oxygen Concentration - - Weight 109 kg (240 lb 4.8 oz) 09/17/2023 11:11 A M EDT Height - - Body Mass Index 33.52 09/11/2023 9:25 AM EDT documented in this encounter Functional Status Functional Status Response Date of Assess ment Are you deaf or do you have serious difficulty h earing? No 07/13/2023 Are you blind or do you have serious difficulty seeing, even when wearing glasses? No 07/13/2023 Do you have serious difficul ty walking or climbing stairs? (5 years old or older) No 07/13/2023 Do you have difficulty dress ing or bathing? (5 years old or older) No 07/13/2023 Because of a physical, menta l, or emotional condition, do you have difficulty doing errands alone such as visiting a doctor s office or shopping? (15 years old or older) No 07/13/19 Cognitive Status Response Date of Assessm ent Because of a physical, menta l, or emotional condition, do you have serious difficulty concentrating, remembering, or making decisions? (5 years old or older) No 07/13/2023 documented as of this encounter Progress Notes * Ritika Godfrey CRNP - 09/17/2023 11:30 AM EDT Hematology/Oncology Outpatient Clinic note [address] [place] [address] Name: Farhad Franco Date: 09/17/2023 CHIEF COMPLAINT: Farhad Franco is a 32 year old male patient of Dr. Mike Chaudhary here today for f/u visit From Patient chart confirmed with patient. From Dr. Mike Chaudhary note 09/04/2023. Hematology/Oncology diagnosis: BL (Burkitt lymphoma): (June 2023) Sporadic variant, associated with EBV infection (EBV DNA, QN PCR= 70003). Also, patient with remotehistory of immunosuppressive meds. NEGATIVE HIV. High risk (retroperitoneal abdominal mass, > 7cm, High LDH). [email or web address] Bulky disease (single mass >7 cm) Stage III (Retroperitoneal disease), with no bone marrow, or [employer] involvement (LP x 2, Rare atypicallymphocytes W/small lymphocytes favor reactive lymphomonocytosis, flow:no evidence of clonal or aberrant cells) Retroperitoneal biopsy; IHC: Aggressive CD10+ B-cell lymphoma with EBV expression. Ki-67 = 80-90%. Flow cytometry: EU50-qucqxpdd B cell population expressing kappa light chains. FISH: t(8:14). 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 H/O seizures, last was in high school, has been on Depakote and toapmax for years Cognitive, and learning disabilities Gout HTN Former smoker, quit 2 years ago Treatment rendered: CALGB 1002 Pre-phase: Cyclophosphamide 200 mg/m2 IV days 1-5 (06/26/23-06/30/23) Prednisone 60 mg/m2 PO days 1-7 IT MTX 12 mg (07/02/23, 07/22/23) Current treatment: [email or web address] Risk-adapted DA-EPOCH-R Q 21 days, with G-CSF support x 6 cycles (07/02/23- )---> C1 started IP, w/o steroids d/t getting pre phase steroids. IT MTX D1 and D5 of C3-C6 (for a total of 8 doses) Supportive meds: Acyclovir 400 mg twice daily Fluconazole 400 mg daily Bactrim 400-80 mg once daily Allopurinol 300 mg daily Levofloxacin when ANC <500 HISTORY OF PRESENT ILLNESS: Farhad Franco is a 32 year old male with a history as outlined above. Currently here for f/u visit today with his father. He is here for toxicity check after treatment last week. He had Cycle 4 DA-EPOCH-R last week. His father reports that the trip to [place] and the wait for treatment is "rough". Farhad reports that he is so tired. No fever or chills. Denies headache. Denies sore mouth or trouble swallowing. Denies chest pain, palpitation or shortness of breath. Denies abdominal pain, cramping, constipation or diarrhea. No urinary issues. See full ROS below Past Medical History: Diagnosis Date Adjustment disorder with depressed mood 08/14/2009 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 Follows in [place] q6m Cerebrovascular accident (CVA) (HCC) Gastroesophageal reflux disease with esophagitis 12/18/2014 History of petit-mal seizures 03/07/2016 Migraine with aura and without status migrainosus, not intractable 12/18/2014 Pneumonia of left lower lobe due to infectious organism 07/05/2021 Retroperitoneal mass 06/21/2023 Tobacco use disorder 01/01/2016 Past Surgical History: Procedure Laterality Date COLONOSCOPY, DIAGNOSTIC (RECTUM) 02/05/2022 normal bx / COLONOSCOPY FLEXIBLE PROXIMAL DIAGNOSTIC performed by aLurence Dent MD at ENDOSCOPY [facility] EGD, FLEXIBLE, DIAGNOSTIC 02/05/2022 normal bx / ESOPHAGOGASTRODUODENOSCOPY (EGD), FLEXIBLE, TRANSORAL, DIAGNOSTIC performed by Laurence Dent MD at ENDOSCOPY [facility] INFORMATION Arteriograms. INSER TUNN ACC DEV;5 YRS/OLDER Right 07/17/2023 INSERT TUNNELED CENTRAL VENOUS ACCESS WITH SUBQ PORT performed by Medhat Angel MD at OR [facility] IR BIOPSY 06/22/2023 [place] ANESTH,OPEN HEAD SURGERY Social History Socioeconomic History Marital status: Single Spouse name: Not on file Number of children: Not on file Years of education: Not on file Highest education level: Not on file Occupational History Not on file Tobacco Use Smoking status: Former Current packs/day: 0.00 Average packs/day: 2.0 packs/day for 7.2 years (14.3 ttl pk-yrs) Types: Cigarettes Start date: 05/17/2014 Quit date: 07/17/2021 Years since quittin.1 Passive exposure: Past Smokeless tobacco: Never Tobacco comments: 4-5 cigs/day Vaping Use Vaping status: Former Start date: 02/16/2017 Quit date: 02/16/2019 Substances: Nicotine, Flavoring Devices: Pre-filled or refillable cartridge, Refillable tank Passive vaping exposure: Yes Substance and Sexual Activity Alcohol use: Yes Comment: rarely - only on my birthday and new years Drug use: Never Sexual activity: Not Currently Other Topics Concern Not on file Social History Narrative Not on file Social Determinants of Health Financial Resource Strain: Low Risk (07/08/2023) Financial Resource Strain Do you have any trouble paying for your medications, or do you think you might in the future? (Adult - for ages 18 years and over): No Does your family have trouble paying for medicine? (Household - for ages 0-17 years): Not on file Food Insecurity: No Food Insecurity (07/13/2023) Food Insecurity Do you need food for this week? (Adult - for ages 18 years and over): No Are you able to get enough food for your family? (Household - for ages 0-17 years): Not on file Does your family need food this week? (Household - for ages 0-17 years): Not on file Do you always have enough food for your family? (Household - for ages 0-17 years): Not on file Recent Concern: Food Insecurity - Food Insecurity Present (07/08/2023) Hunger Vital Sign Worried About Running Out of Food in the Last Year: Never true Ran Out of Food in the Last Year: Sometimes true Transportation Needs: No Transportation Needs (07/13/2023) Transportation Needs Do you have trouble getting a ride to medical visits or work? (Adult - for ages 18 years and over):Never True Does your family have a hard time getting a ride to doctors visits? (Household - for ages 0-17 years): Not on file Has lack of transportation kept you from medical appointments, meetings, work, or from getting things needed for daily living? Check all that apply. (Adult - for ages 18 years and over): Not on file Do you (or your family) have trouble finding or paying for a ride (transportation)? (Household - for ages 0-17 years): Not on file Social Connections: Socially Integrated (07/08/2023) Social Connections How often do you feel lonely or isolated from those around you? (Adult - for ages 18 years and over): Never Housing Stability: Low Risk (07/13/2023) Housing Stability Do you currently live in a fci or have no steady place to sleep at night? (Adult - for ages 18 years and over): No Do you think you are at risk of becoming homeless? (Adult - for ages 18 years and over): No Does your family worry about paying for your home or becoming homeless? (Household - for ages 0-17 years): Not on file Are you homeless or worried that you might be in the future? (Adult - for ages 18 years and over): Not on file Are you (or your family) homeless or worried that you might be in the future? (Household - for ages0-17 years): Not on file Review of patient's allergies indicates: No Known Allergies Current Outpatient Medications Medication Sig Dispense Refill ASPIRIN 81 MG PO TABS one tablet daily Divalproex Sodium ER 500 MG Oral Tablet Extended Release 24 Hour (Depakote ER) TAKE ONE TABLET BY MOUTH TWICE A DAY (MORNING AND BEFORE BEDTIME) -DO NOT CUT, CRUSH OR CHEW (Patient taking differently: Take 1 Tablet by mouth every night at bedtime.) 180 Tablet 3 Propranolol HCl 40 MG Oral Tablet (Inderal) TAKE ONE TABLET BY MOUTH TWICE A DAY (IN THE MORNING AND BEFORE BEDTIME) 180 Tablet 3 hydroCHLOROthiazide 12.5 MG Oral Capsule (Hydrodiuril) Take 1 Capsule by mouth in the morning. 90 Capsule 1 Celecoxib 200 MG Oral Capsule (CeleBREX) Take 1 Capsule by mouth in the morning. Every morning.. 30Capsule 3 Pantoprazole Sodium 40 MG Oral Tablet Delayed Release (Protonix) TAKE ONE TABLET BY MOUTH EVERY MORNING 30 MINUTES BEFORE THE FIRST MEAL OF THE DAY. DO NOT CRUSH,SPLIT OR CHEW THE TABLET 30 Tablet 5 Proventil HFA 108 (90 Base) MCG/ACT Inhalation Aerosol Solution Inhale 2 Puffs by mouth every 4 hours as needed for Wheezing, Shortness of Breath or Cough. 18 g 1 Fluticasone-Salmeterol 250-50 MCG/ACT Inhalation Aerosol Powder Breath Activated (Advair Diskus) INHALE ONE PUFF BY MOUTH EVERY MORNING AND ONE PUFF BEFORE BEDTIME 60 Each 5 Sulfamethoxazole-Trimethoprim 400-80 MG Oral Tablet (Bactrim) Take 1 Tablet by mouth in the morning. 30 Tablet 1 Sennosides-Docusate Sodium 8.6-50 MG Oral Tablet (Senokot-S) Take 2 Tablets by mouth in the morningand 2 Tablets in the evening. 60 Tablet 1 Naloxone HCl 4 MG/0.1ML Nasal Liquid (Narcan Nasal) Administer 1 nasal spray device into one nostril as needed for suspected opioid overdose. Seek medical help immediately. If no response after 2-3 minutes, administer second nasal spray device in other nostril. 2 Each 3 Magic Swizzle (Wyvnapvzu-Aqvgxpld-Cwbvbq) oral solution Swish and spit 15 mL 4 times a day as needed for Sore throat (oral pain). 900 mL 0 Prochlorperazine Maleate 5 MG Oral Tablet (Compazine) Take 1 Tablet by mouth every 8 hours as needed for Nausea. 30 Tablet 0 Allopurinol 300 MG Oral Tablet (Zyloprim) Take 1 Tablet by mouth in the morning. 30 Tablet 1 Fluconazole 200 MG Oral Tablet (Diflucan) Take 2 Tablets by mouth in the morning. 60 Tablet 1 Lidocaine-Prilocaine 2.5-2.5 % External Cream (Emla) Apply topically to affected area as needed prior to accessing port for chemotherapy and blood work. Apply to skin over mediport and cover 1 hour prior to accessing 30 g 0 Acyclovir 400 MG Oral Tablet (Zovirax) Take 1 Tablet by mouth in the morning and 1 Tablet before bedtime. 30 Tablet 2 Ondansetron HCl 4 MG Oral Tablet Take 1 Tablet by mouth every 6 hours as needed for Nausea. 30 Tablet 0 Sulfamethoxazole-Trimethoprim 400-80 MG Oral Tablet (Bactrim) Take 1 Tablet by mouth in the morning. Take 1 tab by mouth daily throughout all chemotherapy cycles.. 30 Tablet 5 Ondansetron HCl 8 MG Oral Tablet Take 1 Tablet by mouth every 8 hours as needed for Nausea. Take 2 tabs Daily for 4 days after starting chemotherapy. 8 Tablet 5 predniSONE 20 MG Oral Tablet (Deltasone) Take 7.25 Tablets by mouth in the morning and 7.25 Tabletsbefore bedtime. Take twice a day with food on Days 1-5 of EPOCH treatment only. 75 Tablet 5 Morphine Sulfate 15 MG Oral Tablet (Msir) Take 1 Tablet by mouth every 6 hours as needed for Pain, Breakthrough. 30 Tablet 0 Potassium Chloride Ashley ER 10 MEQ Oral Tablet Extended Release TAKE TWO TABLETS BY MOUTH EVERY MORNING AND TWO TABLETS BEFORE BEDTIME. DO ALL THIS FOR 14 DAYS 56 Tablet 0 Buprenorphine HCl 2 MG Sublingual Tablet Sublingual (Subutex) Place 0.5 Tablets under the tongue inthe morning and 0.5 Tablets in the evening. 30 Tablet 0 levoFLOXacin 750 MG Oral Tablet (Levaquin) Take 1 Tablet by mouth in the morning. When ANC less than 500. 30 Tablet 0 Topiramate 100 MG Oral Tablet (topAMAX) Take 1 Tablet by mouth in the morning and 1 Tablet before bedtime. 180 Tablet 3 Cetirizine HCl 10 MG Oral Tablet (ZyrTEC) Take 1 Tablet by mouth in the morning. 30 Tablet 0 Potassium Chloride Ashley ER 10 MEQ Oral Tablet Extended Release TAKE TWO TABLETS BY MOUTH TWICE A DAY (MORNING AND BEFORE BEDTIME) 56 Tablet 0 No current facility-administered medications for this visit. REVIEW OF SYSTEMS: Review of Systems Constitutional: Positive for appetite change and fatigue. Negative for chills and fever. HENT: Negative for mouth sores, sore throat and trouble swallowing. Respiratory: Negative for chest tightness, cough and shortness of breath. Cardiovascular: Negative for chest pain and palpitations. Gastrointestinal: Negative for abdominal pain, constipation, diarrhea, nausea and vomiting. Genitourinary: Negative for difficulty urinating. Musculoskeletal: Positive for back pain. Sore in back from injection Skin: Negative for itching and rash. Neurological: Positive for dizziness and numbness. Negative for extremity weakness. Got dizzy early this am, briefly. No syncope Numbness in tips of fingers -- no worse Hematological: Does not bruise/bleed easily. Psychiatric/Behavioral: Negative for sleep disturbance. OBJECTIVE: Filed Vitals: 09/17/23 1111 BP: 121/72 Pulse: 89 Temp: 37.1 C (98.8 F) TempSrc: Tympanic SpO2: 100% Weight: 109 kg (240 lb 4.8 oz) Wt Readings from Last 5 Encounters: 09/17/23 109 kg (240 lb 4.8 oz) 09/11/23 112 kg (246 lb 14.4 oz) 09/09/23 110.3 kg (243 lb 2.7 oz) 09/09/23 110.3 kg (243 lb 1.6 oz) 09/07/23 108.7 kg (239 lb 9.6 oz) PHYSICAL EXAM: ECOG: Performance Status 0 = 100% Normal Activity General Appearance: Normal - Healthy appearing patient in no acute distress HEENT: Normal - No oral or pharyngeal masses, ulceration or thrush noted, no sinus tenderness Lymph Nodes: Normal - No palpable lymph nodes in the neck or supraclavicular areas Lungs/Thorax: Normal - Clear to auscultation Heart: Normal - Regular rate and rhythm, normal S1, S2, no appreciable murmurs, rubs, gallops Pulses/Extremities: Normal - 2+ throughout and symmetrical, no edema Abdomen: Normal - Soft, nontender, bowel sounds present, no appreciable hepatosplenomegaly, no palpable masses Musculoskeletal: Normal - No pain on palpation over bony prominence, no joint or bony deformity Neurologic: Normal - Grossly intact LABS: Results for orders placed or performed in visit on 09/17/23 URIC ACID Result Value Ref Range Uric Acid 4.0 3.4 - 7.0 mg/dL LD Result Value Ref Range LD 209 <=250 U/L TYPE AND SCREEN Result Value Ref Range ABO O Rh Positive Red Blood Cell Antibody Screen Negative Specimen Expiration Date 09/20/2023 23:59 COMPREHENSIVE METABOLIC PANEL Result Value Ref Range BUN 12 6 - 20 mg/dL Creatinine 0.6 0.6 - 1.2 mg/dL Estimated Glomerular Filtration Rate >90 >=60 mL/min Sodium 141 135 - 146 mmol/L Potassium 3.7 3.5 - 5.1 mmol/L Chloride 108 (H) 98 - 107 mmol/L CO2 23 22 - 32 mmol/L Anion Gap 10 7 - 15 mmol/L Glucose 123 (H) 70 - 120 mg/dL Albumin 4.0 3.8 - 5.0 g/dL AST 17 10 - 50 U/L Alkaline Phosphatase 79 35 - 130 U/L Bilirubin, Total 0.3 <=1.2 mg/dL Calcium 8.9 8.4 - 10.2 mg/dL Protein 6.1 6.0 - 8.3 g/dL ALT 34 10 - 50 U/L CBC Result Value Ref Range WBC 0.55 (LL) 4.00 - 10.80 K/uL RBC 1.94 4.50 - 5.25 M/uL HGB 6.1 (L) 14.0 - 16.8 g/dL HCT 18.5 (L) 40.0 - 48.4 % MCV 95.4 82.0 - 99.5 fL MCH 31.4 27.0 - 34.0 pg MCHC 33.0 32.0 - 36.0 g/dL RDW 17.6 11.5 - 15.5 % PLT 37 (L) 140 - 400 K/uL MPV 10.1 6.6 - 11.1 fL nRBCs 0 <=0 /100 WBCs Reviewed lab results with pt/ father Neutropenia precautions reviewed Will need transfusion today IMPRESSION/PLAN: Burkitt Lymphoma of intra-abdominal lymph nodes Chemotherapy-induced pancytopenia Generalized Weakness/ Fatigue Seasonal allergies- improved Encounter to discuss test results Reviewed results of CBC/diff and CMP from 09/17/23 with the patient and his dad today Repeat CBC/diff, CMP and LDH twice weekly, next due 09/21/23 Transfuse as needed for Hgb < 7 and PLT < 10 Recently completed Cycle 4 of DA-EPOCH-R Repeat labs twice weekly: CBC/diff, CMP, and LDH Remain alert and contact the clinic with any new fevers, headaches, vision changes or signs of increased bruising or bleeding Neutropenic precautions reviewed Continue taking supportive medications as prescribed Allopurinol, Fluconazole, Bactrim and Acyclovir take Levaquin for when ANC < 500 Dose of R EPOCH to be adjusted based on his ANC as following: Each new cycle should be delayed until ANC is >1000/microL and platelet count is >100,000/microL. Doses of etoposide, doxorubicin, and cyclophosphamide are adjusted based upon the khurram ANC and platelet counts: If khurram ANC ?500/microL, increase doses by 20% over preceding cycle If ANC <500/microL on one or two measurements, doses remain the same as preceding cycle If ANC <500 on ?3 measurements or platelets <25,000/microL on one measurement, doses reduced by 20% from preceding cycle. Doxorubicin and etoposide doses are not reduced below starting dose Surveillance upon complete response (after 6 cycles): CT C/A/P W contrast no more often than every 6 mo for 2 y after completion of treatment, then only as clinically indicated. RTC Dr. Chaudhary 09/25/23 with CBC/diff, CMP, Uric Acid, UA and LDH NIK Enciso documented in this encounter Nursing Notes * Melvin Valiente MED ASSIST - 09/17/2023 11:16 AM EDT Patient identified by name and date of . Do you have any concerns about pain management for today's visit? No Living Will or Advance Directive for Health Care as noted on problem list. My [facility] is a way you can talk to your provider online through e-mail. Would you like to sign up? I can activate it for you? ALREADY ACTIVE BP 121/72 (BP Site: Right Arm, BP Position: Sitting, BP Cuff Size: Regular) | Pulse 89 | Temp 37.1 C (98.8 F) (Tympanic) | Wt 109 kg (240 lb 4.8 oz) | SpO2 100% | BMI 33.52 kg/m | BSA 2.34 m Patient was instructed to not get up on the exam table/exam chair until directed and assisted by their provider; patient is to remain seated in the chair/ wheelchair/ exam table/ exam chair for fall prevention and safety reasons. Patient is aware to have assistance to step down off exam table/exam chair with personnel. Patient voiced full comprehension of instructions. documented in this encounter Plan of Treatment Upcoming Encounters Date Type Department Care Team (Late st Contact Info) Description 09/21/2023 9:10 AM EDT Laboratory Laboratory [facility] [place] [address] [place] [phone] [place], Lab [facility] [address] [place] [address] 09/25/2023 10:30 AM EDT Laboratory Laboratory, [address] [phone] [facility], Lab [address] [place] [address] 09/25/2023 11:30 AM EDT Telemedicine Hematology/Oncology, [address] [address] Mike Chaudhary MD [address] [place] [address] Herve Hurtadoed [facility] Hem Onc Clinic [address] [place] [address] 09/25/2023 2:40 PM EDT Office Visit Rheumatology [address] [place], [place] [address] Oliver Zhang MD [address] [place] [address] [place], [place] [address] 09/28/2023 7:30 AM EDT Laboratory Laboratory Hem/Onc [facility], [address] [phone] [place], Lab [address] [place] [address] 09/28/2023 8:00 AM EDT Hem/Onc Treatment Hematology Oncology [address] [address] [place], Chair 14 Hem/Onc [address] [place] [address] 09/28/2023 2:00 PM EDT Appointment Radiology, [address] [phone] 09/30/2023 11:00 AM EDT Hem/Onc Treatment Hematology/Oncology Treatment, [address] [address] [facility], Chair2 Hem Onc [address] [place] [address] 10/02/2023 9:00 AM EDT Laboratory Laboratory Hem/Onc [address] [phone] [place], Lab [address] [place] [address] 10/02/2023 10:00 AM EDT Hem/Onc Treatment Hematology Oncology [address] [address] [place], Chair 18 Hem/Onc [address] [place] [address] 10/02/2023 2:00 PM EDT Appointment Radiology, [address] [address] 10/05/2023 7:10 AM EDT Laboratory Laboratory, [address] [address] [facility], Lab [address] [place] [address] 10/05/2023 8:00 AM EDT Immunization/Injection Hematology/Oncology Treatment, [address] [address] [facility], Chair2 Hem Onc [address] [place] [address] 10/08/2023 12:00 PM EDT Laboratory Laboratory, [address] [address] [facility], Lab [address] [place] [address] 10/08/2023 1:00 PM EDT Office Visit Hematology/Oncology, [address] [address] Lakeshia tSone CRNP [address] [place] [address] 10/08/2023 1:30 PM EDT Office Visit Palliative Medicine, [address] [place] [address] Tessa Rubio PA-C [address] [place] [address] 02/19/2024 12:00 PM EST [facility] [address] [place] [address] Kayla Reeder DO [address] [place] [id number] Health Maintenance Due Date Last Done Comments COVID-19 Vaccine (#1) 1993 Influenza Vaccine (FLU shot) (#1) 2023 11/17/2016, 11/17/2016, 11/30/2015, Additional history exists Depression Screening 07/07/2024 07/08/2023, 06/11/19 24 Albumin/Creatinine Ratio Discontinued 08/02/2021 documented as of this encounter Medical Devices Implanted Type Area Career Placement Specialist Device Identifier Shelf Expiration Date Model / Serial / Lot Mediport Pwr Mri 8fr [id number] - [id number] Implanted:Qty : 1 on 07/17/2023 by Medhat Angel MD at OR [facility] Right: Chest CR BARD : PERIPHERAL VASCULAR 07/16/2024 [id number] / / [id number] Port Implant W8f Poly Cath - [id number] Implanted:Qty : 1 on 07/17/2023 by Medhat Angel MD at OR [facility] CR BARD : PERIPHERAL VASCULAR [id number] 07/16/2024 [id number] / / [id number] documented as of this encounter Visit Diagnoses Diagnosis 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)- Primary Burkitt's tumor or lymphoma of intra-abdominal lymph nodes Generalized weakness Other malaise and fatigue Encounter to discuss test results Other specified counseling documented in this encounter Advance Directives Documents on File Type Date Recorded 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 Question Answer Comments Discussion of Advance Directives occurred with: Patient * Full Code Date Activated Date Inactivated Comments 06/20/2023 10:27 PM 07/07/2023 5:41 PM This order r eflects the patients wishes and were consensually agreed upon. Question Answer Comments Discussion of Advance Directives occurred with: Patient Healthcare Agents on File Name Relationship Healthcare Agent [facility] p Communication Trixie Le [facility] Care Repr esentative (appointed verbally by patient or by statute hierarchy) [email or web address] Care Teams Tree Warden Relationship Specialty Start Date End Date Kayla Reeder DO [address] [facility] [place] [id number] PCP - General Family Medicine 06/11/23 documented as of this encounter
--- OUTSIDE RECORDS SUMMARY | 2023-09-18 21:14 | External Medical Summary ---
Author Name Unknown Address Unknown Organization K1F:[facility] - [address] [address] Laboratory Report Ordering Provider Test Date Status [id number] 09/17/2023 10:21:57 Final Observation Date Value Abnormality Reference (Units ) Status Uric Acid 09/17/2023 10:21:57 4.0 3.4-7.0 (m g/dL) Final Performing Location [facility] - [address] [address]
--- OUTSIDE RECORDS SUMMARY | 2023-09-18 21:14 | External Medical Summary | Summary of Care ---
Author Name Unknown Organization [facility] Address [address] [place] [address] Phone [phone] Care Team Providers Care Boots And Shoes Supervisor Name Role Phone Varinder Kaylaparth Clarke DO Primary Care Provider [phone]- [phone] Reason for Visit * Reason Comments Outpatient Testing Encounter Details Date Type Department Care Team (Late st Contact Info) Description 09/17/2023 10:30 AM EDT Laboratory Laboratory, [facility] [address] [place] [address] [facility], Lab [address] [place], [place] [phone] 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); Antineoplastic chemotherapy induced pancytopenia (HCC); 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 18 g 06/09/2023 Active Fluticasone-Salmeter ol 250-50 MCG/ACT Inhalation Aerosol Powder Breath Activated (Advair Diskus)Indications:C hronic cough INHALE ONE PUFF BY MOUTH EVERY MORNING AND ONE PUFF BEFORE BEDTIME 60 Each 06/11/2023 Active Sulfamethoxazole-Tri methoprim 400-80 MG Oral [...] Tablets in the evening. 30 Tablet 08/24/2023 Active levoFLOXacin 750 MG Oral Tablet (Levaquin)Indication [...] mouth in the morning. 30 Tablet 09/09/2023 Active Potassium Chloride Ashley ER 10 MEQ [...] chemo infusion and gets disconnected in the [facility]. Problem Noted Date Diagnosed Date Antineoplastic chemotherapy [...] pain 07/24/2016 0 07/24/2017 Overview: Post Mt Dew Acute recurrent maxillary sinusitis 01/22/2016 07/24/2016 Attention deficit hyperactiv ity disorder (ADHD), combined type 12/18/2014 03/07/2016 RIGHT OTITIS EXTERNA 08/14/2009 013 CEREBRAL VASCULITIS AGE 6 08/14/2009 PETITE MAL SEIZURES LAST 200608/14/2009 03/07/2016 Esophageal reflux 08/14/2009 12/18/2014 MIGRAINE HEADACHES [...] Passive Smoke Exposure: Past Smokeless Tobacco: Never Comments:4-5 cigs/day Alcohol Use Standard Drinks/Week Comments [...] on file documented as of this encounter Functional Status Functional Status Response [...] No 07/13/2023 documented as of this encounter Plan of Treatment Upcoming Encounters Date Type Department Care Team (Latest Contact Info) Description 09/17/2023 11:30 AM EDT Office Visit Hematology/Oncolog [facility] [address] [place] [address] Ritika Godfrey CRNP [address] [place] [phone] PENDING VISIT DRAFT 09/17/2023 12:00 PM EDT Hem/Onc Treatment Hematology/Oncolog y Treatment, [address] [address] [facility], Chair9 Hem Onc [address] [place] [address] Arrived 09/21/2023 9:10 AM EDT Laboratory Laboratory [address], [place] [address] [place] [phone] [place], [address] [place] [address] 09/25/2023 10:30 AM EDT Laboratory Laboratory, [address] [phone] [facility], [address] [address] 09/25/2023 11:30 AM EDT Telemedicine Hematology/Oncolog y, [address] [address] Mike Chaudhary MD [address] [place] [address] [place], Telemed [facility] Hem [facility]c [facility] [address] [place] [address] 09/25/2023 2:40 PM EDT Office Visit Rheumatology [facility] [address] [place] [address] Oliver Zhang MD [address] [facility] [place] [address] 09/28/2023 7:30 AM EDT Laboratory Laboratory Hem/Onc [facility] [address] [place] [phone] Violette Julian Med[address] [place] [address] 09/28/2023 8:00 AM EDT Hem/Onc Treatment Hematology Oncology [facility], [address] [address] [place], Chair 14 Hem/Onc [address] [place] [address] 09/28/2023 2:00 PM EDT Appointment Radiology, [address] [phone] 09/30/2023 11:00 AM EDT Hem/Onc Treatment Hematology/Oncolog y Treatment, [address] [address] [facility], Chair2 Hem Onc [address] [place] [address] 10/02/2023 9:00 AM EDT Laboratory Laboratory Hem/Onc [facility], [address] [phone] [place], Lab [address] [address] 10/02/2023 10:00 AM EDT Hem/Onc Treatment Hematology Oncology [facility], [address] [address] [place], Chair [address] Hem/Onc [address] [place] [address] 10/02/2023 2:00 PM EDT Appointment Radiology, [address] [address] 10/05/2023 7:10 AM EDT Laboratory Laboratory, [address] [address] [facility], Lab [address] [place] [address] [place] [address] 10/05/2023 8:00 AM EDT Immunization/Injecti on Hematology/Oncolog y Treatment, [address], [place] [address] [place], Chair2 Hem Onc [address] [place] [address] 10/08/2023 12:00 PM EDT Laboratory Laboratory, [address] [phone] [facility], Lab [address] [place] [address] 10/08/2023 1:00 PM EDT Office Visit Hematology/Oncolog y, [address] [address] Lakeshia Stone CRNP [address] [place] [address] 10/08/2023 1:30 PM EDT Office Visit Palliative Medicine, [address] 5th [place] [address] Tessa Rubio PAMalik [address] [place] [address] 02/19/2024 12:00 PM EST Office Visit [facility] [address], [place] [address] [place] [phone] Kayla Reeder DO [address] [place] [address] Pending Results Name Type Priority Associated Diagnoses Date /Time URIC ACID Lab STAT 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) 09/17/2023 10:21 AM EDT LD Lab STAT 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) 09/17/2023 10:21 AM EDT CBC WITH WBC DIFFERENTIAL Lab STAT 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) 09/17/2023 10:21 AM EDT TYPE AND SCREEN Lab STAT 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) 09/17/2023 10:21 AM EDT COMPREHENSIVE METABOLIC PANEL Lab STAT 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) 09/17/2023 10:21 AM EDT CBC Lab STAT 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) 09/17/2023 10:21 AM EDT DIFFERENTIAL, AUTOMATED Lab STAT 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) 09/17/2023 10:21 AM EDT Health Maintenance Due Date Last Done Comments COVID-19 Vaccine (#1) 1993 Influenza Vaccine (FLU shot) (#1) 2023 11/17/2016, 11/17/2016, 11/30/2015, Additional history exists Depression Screening 07/07/2024 07/08/2023, 06/11/19 24 Albumin/Creatinine Ratio Discontinued 08/02/2021 documented as of this encounter Medical Devices Implanted Type Area Authorizer Device Identifier Shelf Expiration Date Model / Serial / Lot Mediport Pwr Mri 8fr [id number] - [id number] Implanted:Qty : 1 on 07/17/2023 by Medhat Angel MD at OR [facility] Right: Chest CR BARD : PERIPHERAL VASCULAR 07/16/2024 [id number] / / [id number] Port Implant W8f Poly Cath - [id number] Implanted:Qty : 1 on 07/17/2023 by Medhat Angel MD at OR [facility] CR BARD : PERIPHERAL VASCULAR [id number] 07/16/2024 [id number] / / [id number] documented as of this encounter Visit Diagnoses Diagnosis 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) Burkitt's tumor or lymphoma of intra-abdominal lymph nodes 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) Other malignant lymphomas of intra-abdominal lymph nodes documented in this encounter Advance Directives Documents on File Type Date Recorded 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
--- OUTSIDE RECORDS SUMMARY | 2023-09-18 21:14 | External Medical Summary | Summary of Care ---
Author Name Unknown Organization [facility] Address [address] [place] [address] Phone [phone] Care Team Providers Care Engineer Operations And Maintenance Name Role Phone ReederKayla Primary Care Provider +1- [phone] Reason for Visit * Reason Onset Date Comments Test Results 09/14/2023 Completed Encounter Details Date Type Department Care Team (Late st Contact Info) Description 09/14/2023 Telephone Hematology Oncology [facility] [address] [place] [address] Mike Chaudhary MD [address] [place] [address] Test Results (Completed) Allergies No known active allergiesdocumented as of [...] chemo infusion and gets disconnected in the [facility]. Problem Noted Date Diagnosed Date Antineoplastic chemotherapy induced pancytopenia 08/27/2023 Encounter for antineoplastic chemotherapy 2023 Immunodeficiency 07/20/2023 Pancytopenia 07/14/2023 Headache 07/13/2023 Chemotherapy-induced neutropenia 07/13/2023 Neoplastic (malignant) related fatigue 05/19/202 4 Therapeutic opioid-induced constipation (OIC) Burkitt lymphoma of [...] No 07/13/2023 documented as of this encounter Miscellaneous Notes * Telephone Encounter - Radha Grimm CPhT - 09/17/2023 2:40 PM EDT DA-EPOCH LAB MONITORING DOCUMENTATION Farhad Franco [id number] Patient Phone Numbers Communication: Chart review Indication/Staging/Diagnosis Code: 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 Chaudhary Treatment: DA-EPOCH Cycle 4 Patient was educated by nurse specialist at start of treatment: Yes Per communication from clinic pharmacist, Day 1 of current cycle was 09/06, which was a Thursday, meaning: Day 8 lab appt scheduled for 09/14/23 Day 11 lab appt scheduled for , 09/17/23 Day 15 lab appt scheduled for 09/21/23 Day 18 lab appt scheduled for , 09/24/23 Reviewed patient chart today to monitor for Day 11 lab completed: Patient labs completed and in chart, will follow up with lab compliance on Day 15 - 09/21/23 Radha Grimm Wire Coiner III Hematology Oncology Oral Chemotherapy Clinic Medication Therapy Disease Management [facility] 09/17/2023 2:42 PM Time Spent on Encounter: < 5 minutes * Telephone Encounter - Radha Grimm CPhT - 09/14/2023 3:03 PM EDT DA-EPOCH LAB MONITORING DOCUMENTATION Farhad Franco [id number] Patient Phone Numbers Communication: Chart review Indication/Staging/Diagnosis Code: 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 Chaudhary Treatment: DA-EPOCH Cycle 4 Patient was educated by nurse specialist at start of treatment: Yes Per communication from clinic pharmacist, Day 1 of current cycle was 09/06, which was a Thursday, meaning: Day 8 lab appt scheduled for 09/14/23 Day 11 lab appt scheduled for , 09/17/23 Day 15 lab appt scheduled for 09/21/23 Day 18 lab appt scheduled for , 09/24/23 Reviewed patient chart today to monitor for Day 8 lab completed: Patient labs completed and in chart, will follow up with lab compliance on Day 11 Will follow up on 09/16(Date) for next labs due on Day 11 Radha Grimm Wire Coiner III Hematology Oncology Oral Chemotherapy Clinic Medication Therapy Disease Management [facility] 09/14/2023 3:06 PM Time Spent on Encounter: < 5 minutes documented in this encounter Plan of Treatment Upcoming Encounters Date Type Department Care Team (Late st Contact Info) Description 09/21/2023 9:10 AM EDT Laboratory Laboratory [address] [place] [phone] [place], [facility] [address] [place] [address] 09/25/2023 10:30 AM EDT Laboratory Laboratory, [address] [phone] [facility], Lab [address] [place] [address] 09/25/2023 11:30 AM EDT Telemedicine Hematology/Oncology, [address] [address] Mike Chaudhary MD [address] [place] [address] [place], Telemed [facility] Hem Onc Clinic [address] [place] [address] 09/25/2023 2:40 PM EDT Office Visit Rheumatology [address] [place] [address] Oliver Zhang MD [address] [place] [address] 09/28/2023 7:30 AM EDT Laboratory Laboratory Hem/Onc [address] [phone] [place], [facility] Med [address] [place] [address] 09/28/2023 8:00 AM EDT Hem/Onc Treatment Hematology Oncology [place] [address] [place] [address] [place], Chair 14 Hem/Onc [facility] [address] [place], [place] [phone] 09/28/2023 2:00 PM EDT Appointment Radiology, [address] [phone] 09/30/2023 11:00 AM EDT Hem/Onc Treatment Hematology/Oncology Treatment, [address] [place] [address] [facility], Chair2 Hem Onc [address] [place] [address], [place] [address] 10/02/2023 9:00 AM EDT Laboratory Laboratory Hem/Onc [facility], [address] [phone] [place], Lab [address] [place] [address] 10/02/2023 10:00 AM EDT Hem/Onc Treatment Hematology Oncology [facility], [address] [place] [address] [place], Chair 18 Hem/Onc [address] [place] [address] 10/02/2023 2:00 PM EDT Appointment Radiology, [address] [phone] 10/05/2023 7:10 AM EDT Laboratory Laboratory, [address], [place] [address] [facility], Lab [address] [place] [address], [place] [address] 10/05/2023 8:00 AM EDT Immunization/Injection Hematology/Oncology Treatment, [address], [place] [address] [facility], Chair2 Hem Onc [address] [place] [address], [place] [address] 10/08/2023 12:00 PM EDT Laboratory Laboratory, [address] [phone] [facility], Lab [address] [place] [address] 10/08/2023 1:00 PM EDT Office Visit Hematology/Oncology, [address] [address] Lakeshia Stone CRNP [address] [place], [place] [phone] 10/08/2023 1:30 PM EDT Office Visit Palliative Medicine, [address] 5th [place] [address] Tessa Rubio PA-C [address] [place] [address] 02/19/2024 12:00 PM EST Office Visit [facility], [place] [address] [place] [address] Kayla Reeder DO [address] [place] [address] Health Maintenance Due Date Last Done Comments COVID-19 Vaccine (#1) 1993 Influenza Vaccine (FLU shot) (#1) 2023 11/17/2016, 11/17/2016, 11/30/2015, Additional history exists Depression Screening 07/07/2024 07/08/2023, 06/11/19 24 Albumin/Creatinine Ratio Discontinued 08/02/2021 documented as of this encounter Medical Devices Implanted Type Area Ocular Pathologist Device Identifier Shelf Expiration Date Model / Serial / Lot Mediport Pwr Mri 8fr [id number] - [id number] Implanted:Qty : 1 on 07/17/2023 by Medhat Angel MD at OR [facility] Right: Chest CR BARD : PERIPHERAL VASCULAR 07/16/2024 [id number] / / [id number] Port Implant W8f Poly Cath - [id number] Implanted:Qty : 1 on 07/17/2023 by Medhat Angel MD at OR [facility] CR BARD : PERIPHERAL VASCULAR [id number] 07/16/2024 [id number] / / [id number] documented as of this encounter Advance Directives Documents on File Type Date Recorded Patient Acetone Button Paster Expl anation Power of Ornamenter 09/15/2023 signed on 07/08/2023 * Full Code [...] Healthcare Agent Relationshi p Communication Trixie Le [facility] Care Repr esentative (appointed verbally by patient or by statute hierarchy) [email or web address] Care Teams Engineer Operations And Maintenance Relationship Specialty Start Date End Date Kayla Reeder DO [address] [place] [place] [address] PCP - General Family Medicine 06/11/23 documented as of this encounter
--- OUTSIDE RECORDS SUMMARY | 2023-09-18 21:14 | External Medical Summary ---
Author Name Unknown Address Unknown Organization K1F:LABORATORY [facility] - [address] [place] [address] Laboratory Report Ordering Provider Test Date Status MATTI BARAJAS 09/17/2023 10:21:57 Final Observation Date Value Abnormality Reference (Units ) Status LDH 09/17/2023 10:21:57 209 <=250 (U/L ) Final Results may be falsely eleva ketan due to hemolysis. Performing Location LABORATORY [facility] - [address] [place] [address]
--- OUTSIDE RECORDS SUMMARY | 2023-09-18 21:14 | External Medical Summary ---
Author Name Unknown Address Unknown Organization K1F:LABORATORY [facility] - [address] [place] [address] Laboratory Report Ordering Provider Test Date Status JENNMATTI 09/17/2023 10:21:57 Final Observation Date Value Abnormality Reference (Units ) Status ABO 09/17/2023 10:21:57 O Final RH 09/17/2023 10:21:57 Positive Final RED BLOOD CELL ANTIBODY SCREEN 09/17/2023 10:21:57 Negative Final SPECIMEN EXPIRATION DATE 09/17/2023 10:21:57 09/20/2023 23:59 Final Performing Location LABORATORY [facility] - [address] [place] [address]
--- OUTSIDE RECORDS SUMMARY | 2023-09-18 21:14 | External Medical Summary ---
Author Name Unknown Address Unknown Organization K1F[facility] [address] [facility] [place] [address] Laboratory Report Ordering Provider Test Date Status CHANTEL JORDAN 09/17/2023 10:21:57 Final Observation Date Value Abnormality Reference (Units ) Status BUN 09/17/2023 10:21:57 12 6-20 (mg/dL) Final Creatinine 09/17/2023 10:21:57 0.6 0.6-1.2 (mg/dL) Final Glomerular filtration rate/1.73 sq M.predicted [Volume Rate/Area] in Serum, Plasma or Blood by Creatinine-based formula (CKD-EPI) 09/17/2023 10:21:57 >90 >=60 (mL/min) Final eGFR is calculated based on the CKD-EPI 2020 equation. Sodium 09/17/2023 10:21:57 141 135-146 (m mol/L) Final Potassium 09/17/2023 10:21:57 3.7 3.5-5.1 (m mol/L) Final Cl 09/17/2023 10:21:57 108 Above high normal 98 -107 (mmol/L) Final CO2 09/17/2023 10:21:57 23 22-32 (mmo l/L) Final Anion gap 09/17/2023 10:21:57 10 7-15 (mmol /L) Final Glucose 09/17/2023 10:21:57 123 Above high normal 70 -120 (mg/dL) Final Albumin 09/17/2023 10:21:57 4.0 3.8-5.0 (g /dL) Final AST (Aspartate aminotransferase) 09/17/2023 10:21:57 17 10-50 (U/L) Fin al Results may be falsely eleva ketan due to hemolysis. Alk Phos 09/17/2023 10:21:57 79 35-130 (U/ L) Final Bilirubin, Total 09/17/2023 10:21:57 0.3 <=1 .2 (mg/dL) Final Calcium 09/17/2023 10:21:57 8.9 8.4-10.2 ( mg/dL) Final Protein 09/17/2023 10:21:57 6.1 6.0-8.3 (g /dL) Final ALT (Alanine aminotransferase) 09/17/2023 10:21:57 34 10-50 (U/L) Final Performing Location LABORATORY [facility] - [facility] [address] [place] [address]
--- OUTSIDE RECORDS SUMMARY | 2023-09-18 21:14 | External Medical Summary | Summary of Care ---
Author Name Unknown Organization [facility] Address [address] [place] [address] Phone [phone] Care Team Providers Care Television Analyzer Name Role Phone Kayla Reeder DO Primary Care Provider +1- [phone] Reason for Visit * Reason Comments eRx-Medication Refill Encounter Details Date Type Department Care Team (Late st Contact Info) Description 09/17/2023 Refill Family Practice [facility] [address] [place] [address] Calin Galloway PA-C [address] [place] [address] Chronic cough Allergies No known active allergiesdocumented as of [...] chemo infusion and gets disconnected in the [facility]. 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 Overview: Follows in [place] q6m History of petit-mal seizures 03/07/2016 Tobacco [...] encounter Miscellaneous Notes * Telephone Encounter - Chevy Arnold [facility] - 09/17/2023 1:20 PM EDT Refused Prescriptions: Disp Refills Loratadine 10 MG Oral Tablet (Claritin) 30 Tab*11 Sig: TAKE ONETABLET BY MOUTH EVERY MORNINGRefused By: CHEVY ARNOLDReason for Refusal: Other (comment below)Reason for Refusal Comment: Now on ceterizine documented in this encounter Plan of Treatment Upcoming Encounters Date Type Department Care Team (Late st Contact Info) Description 09/21/2023 9:10 AM EDT Laboratory Laboratory [address], [place] [address] [place] [phone] [place], Lab [address] [place] [address] 09/25/2023 10:30 AM EDT Laboratory Laboratory, [address] [phone] [facility], [address] [address] 09/25/2023 11:30 AM EDT Telemedicine Hematology/Oncology, [address] [address] Mike Chaudhary MD [address] [place] [address] [place], Telemed [facility] Hem Onc Clinic [address] [place] [address] 09/25/2023 2:40 PM EDT Office Visit Rheumatology [place] [address] [facility] [address] Oliver Zhang MD [address] [place] [address] [place] [address] 09/28/2023 7:30 AM EDT Laboratory Laboratory Hem/Onc [facility] [address] [place] [phone] [place] [address] [address] [place] [address] 09/28/2023 8:00 AM EDT Hem/Onc Treatment Hematology Oncology [facility], [address] [address] [place], Chair [address] Hem/Onc [address] [place] [address] 09/28/2023 2:00 PM EDT Appointment Radiology, [address] [phone] 09/30/2023 11:00 AM EDT Hem/Onc Treatment Hematology/Oncology Treatment, [address] [address] [facility], Chair2 Hem Onc [address] [place] [address] 10/02/2023 9:00 AM EDT Laboratory Laboratory Hem/Onc [address] [address] [place], Lab [address] [place] [address] 10/02/2023 10:00 AM EDT Hem/Onc Treatment Hematology Oncology [facility], [address] [address] [place], Chair [address] Hem/Onc [address] [place] [address] 10/02/2023 2:00 PM EDT Appointment Radiology, [address] [address] 10/05/2023 7:10 AM EDT Laboratory Laboratory, [address] [phone] [facility], Lab [address] [place] [address] 10/05/2023 8:00 AM EDT Immunization/Injection Hematology/Oncology Treatment, [address], [place] [address] [facility], Chair2 Hem Onc [address] [place] [address], [place] [address] 10/08/2023 12:00 PM EDT Laboratory Laboratory, [address] [phone] [facility], Lab [address] [place] [address], [place] [address] 10/08/2023 1:00 PM EDT Office Visit Hematology/Oncology, [address] [place] [address] Lakeshia Stone CRNP [address] [place] [address] 10/08/2023 1:30 PM EDT Office Visit Palliative Medicine, [address] 5th [place] [address] Tessa Rubio [facility] [address] [place] [address] 02/19/2024 12:00 PM EST Office Visit [facility] [place] [address] [place] [address] Kayla Reeder DO [address] [place] [place] [address] Health Maintenance Due Date Last Done Comments COVID-19 Vaccine (#1) 1993 Influenza Vaccine (FLU shot) (#1) 2023 11/17/2016, 11/17/2016, 11/30/2015, Additional history exists Depression Screening 07/07/2024 07/08/2023, 06/11/19 24 Albumin/Creatinine Ratio Discontinued 08/02/2021 documented as of this encounter Medical Devices Implanted Type Area Scientific Programmer Device Identifier Shelf Expiration Date Model / Serial / Lot Mediport Pwr Mri 8fr [id number] - [id number] Implanted:Qty : 1 on 07/17/2023 by Medhat Angel MD at OR [facility] Right: Chest CR BARD : PERIPHERAL VASCULAR 07/16/2024 [id number] / / [id number] Port Implant W8f Poly Cath - [id number] Implanted:Qty : 1 on 07/17/2023 by Medhat Angel MD at OR [facility] CR BARD : PERIPHERAL VASCULAR [id number] 07/16/2024 [id number] / / [id number] documented as of this encounter Visit Diagnoses Diagnosis Chronic cough Cough documented in this encounter Advance Directives Documents on File Type Date Recorded Patient Mail Weigher Expl anation Power of Insulation Cutter And Former 09/15/2023 signed on 07/08/2023 * Full Code [...] Agents on File Name Relationship Healthcare Agent [facility] p Communication Trixie Le [facility] Repr esentative (appointed verbally by patient or by statute hierarchy) [email or web address] Care Teams Television Analyzer Relationship Specialty Start Date End Date Kayla Reeder DO [address] [facility] [place] [place] [address] PCP - General Family Medicine 06/11/23 documented as of this encounter
--- OUTSIDE RECORDS SUMMARY | 2023-09-18 21:14 | External Medical Summary ---
Author Name Unknown Address Unknown Organization K1F:LABORATORY [facility] - [address] [address] Laboratory Report Ordering Provider Test Date Status MATTI BARAJAS 09/17/2023 10:21:57 Final Observation Date Value Abnormality Reference (Units ) Status COMMENT 09/17/2023 10:21:57 WBC < 0.60, WBC differential cancelled. Please call Client Services if differential is required. Final Performing Location LABORATORY [facility] - [address] [address]
--- OUTSIDE RECORDS SUMMARY | 2023-09-18 21:14 | External Medical Summary | Summary of Care ---
Author Name Unknown Organization [facility] Address [address] [place] [address] Phone [phone] Care Team Providers Care Certified Juvenile Probation Officer Name Role Phone Kayla Reeder DO Primary Care Provider +1- [phone] Reason for Visit * Reason Comments Treatment Blood transfusion Encounter Details Date Type Department Care Team (Latest Contact Info) Description 09/17/2023 12:00 PM EDT Hem/Onc Treatment Hematology/Oncolog y Treatment, [facility] [address] [place], [place] [id number] [facility], Chair9 Hem Onc [address] [place], [place] [id number] Antineoplastic chemotherapy induced pancytopenia (HCC)*; 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 60 Tablet 07/07/2023 Active Naloxone HCl 4 MG/0.1ML Nasal [...] and gets disconnected in the [facility]. Problem Noted Date Diagnosed Date Antineoplastic [...] Sign Reading Time Taken Comments Blood Pressure 108/60 09/17/2023 3:00 PM EDT Pulse 79 09/17/2023 3:00 PM EDT Temperature 36.6 C (97.9 F) 09/17/2023 3:00 PM ED T Respiratory Rate 18 09/17/2023 3:00 PM EDT Oxygen Saturation - - Inhaled Oxygen Concentration - - Weight - - Height - - Body Mass Index - - documented in this encounter Functional Status Functional [...] No 07/13/2023 documented as of this encounter Patient Instructions * Patient Instructions* Roula Ramirez RN - 09/17/2023 2:49 PM EDT POST TRANSFUSION INSTRUCTIONS FOR THE AMBULATORY PATIENT You have just completed your blood transfusion. Every effort has been made to ensure that you have received the safest blood product available. However, side effects or complications can occur. Thesecomplications are called transfusion reactions. These reactions are rare. It is important that you be able to recognize a reaction should one occur. If any of the following symptoms occur over the next 12 hours, please notify your physician immediately: Shaking chills Back pain (that is new or different) Chest pain Dizziness (that was not present before the transfusion) Fainting If any of the following symptoms occur over the next 10 days, please notify your physician right away: Fever greater than 100.5F Jaundice (the white part of your eyes turn yellow) Color of urine changes to pink, red, or brown. Shortness of breath (that was not present before the transfusion) Weakness after normal exercise Decrease in amount of urine or frequency or urinating. Every effort has been made to prevent any reactions and make your transfusion as safe as possible. Should you have any questions, please contact your physician. After hours and on weekends, call the hospital-paging acid polymerization operator at one of the below listed numbers and ask to speak with an emergency room physician or the medical staff specialist of transfusion medicine. [facility] - [phone] [facility] - [phone] [facility] - [phone] [facility] of [facility] - [phone] [facility] - [phone] [facility] - [phone] [facility] - ext. 4 [facility] - You received Red Blood Cells Your temperature, pulse, and blood pressure at the end of your transfusion are as follows: Temperature: 98.2 Pulse: 82 Blood Pressure: 110/54 documented in this encounter Nursing Notes * Roula Ramirez RN - 09/17/2023 3:06 PM EDT Patient tolerated blood transfusion without complications. Lungs clear post transfusion. Patient instructed on use of heat and massage functions where applicable. Patient shown how to operate the heat function of the chair and to alert nursing staff if the chair feels too warm. Patient instructed on the risk of potential watkins while using the heat function. * Haylie Pham RN - 09/17/2023 12:51 PM EDT 1240 - Patient tolerated first 15 minutes of blood transfusion without s/s of reaction. Patient's rate increased to 175 ml/hr as documented within Flowsheets. VSS. All needs met at this time. BP 105/54 | Pulse 88 | Temp 36.9 C (98.4 F) | Resp 16 * Haylie Pham RN - 09/17/2023 12:27 PM EDT 1225 - Dual verification performed with this nurse and Roula Ramirez RN. Patient explained s/s of transfusion reaction with verbal understanding. VS checked prior to blood transfusion as documented. Blood transfusion initiated at this time. BP 108/62 | Pulse 86 | Temp 37.1 C (98.8 F) | Resp 16 * Haylie Pham RN - 09/17/2023 12:14 PM EDT [facility] Nursing Care Plan ID is not set. 09/17/2023 Safety and Risk for Injury Patient will remain free from injury. Assess patient's risk for falls per policy. Encourage activity as ordered per policy. Ensure appropriate safety devices are available. Implement fall prevention plan of care per policy. Include patient and caregiver in decisions related to safety. Perform safety rounds per policy. Provide and maintain safe environment. Use appropriate transfer methods. Haylie Pham RN * Roula Ramirez RN - 09/17/2023 12:11 PM EDT Patient brought back to chair 5. Right chest port placed and flushed with + blood return. IVF running into port without difficulty. documented in this encounter Plan of Treatment Upcoming Encounters Date Type Department Care Team (Late st Contact Info) Description 09/21/2023 9:10 AM EDT Laboratory Laboratory [facility], [place] [address] [place] [phone] [place], Lab [facility] [address] [place] [address] 09/25/2023 10:30 AM EDT Laboratory Laboratory, [address] [phone] [facility], Lab [address] [place] [address] 09/25/2023 11:30 AM EDT Telemedicine Hematology/Oncology, [address] [address] Mike Chaudhary MD [address] [place] [address] [place], Telemed [facility] Hem Onc Clinic [address] [place] [address] 09/25/2023 2:40 PM EDT Office Visit Rheumatology [place] [address] [facility] [place] [address] Oliver Zhang MD [address] [place] [address] 09/28/2023 7:30 AM EDT Laboratory Laboratory Hem/Onc [facility], [address] [address] [place], Lab Med[address] [place] [address] 09/28/2023 8:00 AM EDT Hem/Onc Treatment Hematology Oncology [facility], [address] [address] [place], Chair 14 Hem/Onc [address] [place] [address] 09/28/2023 2:00 PM EDT Appointment Radiology, [address] [phone] 09/30/2023 11:00 AM EDT Hem/Onc Treatment Hematology/Oncology Treatment, [address] [address] [facility], Chair2 Hem Onc [address] [place] [address] 10/02/2023 9:00 AM EDT Laboratory Laboratory Hem/Onc [facility], [address] [address] [place], Lab [address] [place] [address] 10/02/2023 10:00 AM EDT Hem/Onc Treatment Hematology Oncology [facility], [address] [address] [place], Chair 18 Hem/Onc [address] [place] [address] 10/02/2023 2:00 PM EDT Appointment Radiology, [address] [address] 10/05/2023 7:10 AM EDT Laboratory Laboratory, [address] [place] [address] [facility], Lab [address] [place] [address] 10/05/2023 8:00 AM EDT Immunization/Injection Hematology/Oncology Treatment, [address] [address] [facility], Chair2 Hem Onc [address] [place] [address] 10/08/2023 12:00 PM EDT Laboratory Laboratory, [address] [address] [facility], Lab [address] [place] [address] 10/08/2023 1:00 PM EDT Office Visit Hematology/Oncology, [address] [address] Lakeshia Stone CRNP [address] [place] [address] 10/08/2023 1:30 PM EDT Office Visit Palliative Medicine, [address] [address] Tessa Rubio PA-C [address] [place] [address] 02/19/2024 12:00 PM EST Office Visit [facility] [place], [place] [address] [place] [address] Kayla Reeder DO [address] [place] [address] Health Maintenance Due Date Last Done Comments COVID-19 Vaccine (#1) 1993 Influenza Vaccine (FLU shot) (#1) 2023 11/17/2016, 11/17/2016, 11/30/2015, Additional history exists Depression Screening 07/07/2024 07/08/2023, 06/11/19 24 Albumin/Creatinine Ratio Discontinued 08/02/2021 documented as of this encounter Medical Devices Implanted Type Area Medical Registrar Device Identifier Shelf Expiration Date Model / Serial / Lot Mediport Pwr Mri 8fr [id number] - [id number] Implanted:Qty : 1 on 07/17/2023 by Medhat Angel MD at OR [facility] Right: Chest CR BARD : PERIPHERAL VASCULAR 07/16/2024 [id number] / / [id number] Port Implant W8f Poly Cath - [id number] Implanted:Qty : 1 on 07/17/2023 by Medhat Angel MD at OR [facility] CR BARD : PERIPHERAL VASCULAR [id number] 07/16/2024 [id number] / / [id number] documented as of this encounter Procedures Procedure Name Priority Date/Time Associated Diagnosis Comments TRANSFUSE PACKED RED BLOOD CELLS Routine 09/17/2023 12:25 PM EDT 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) PREPARE PACKED RED BLOOD CELLS STAT 09/17/2023 12:05 PM EDT 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) documented in this encounter Results * TRANSFUSE PACKED RED BLOOD CELLS (09/17/2023 2:48 PM EDT) [facility] TRANFUS E ORDERABLES * TRANSFUSE PACKED RED BLOOD CELLS (09/17/2023 2:48 PM EDT) [facility] TRANFUS E ORDERABLES * PREPARE PACKED RED BLOOD CELLS (09/17/2023 12:05 PM EDT) Unit Product Code [id number] 09/17/2023 12:17 PM EDT LAB[facility] Unit Number [id number] 09/17/2023 12:17 PM EDT LAB[facility]ATORY [facility] Unit ABO O 09/17/2023 12:17 PM EDT [facility]ORY [facility] Unit Rh POS 09/17/2023 12:17 PM EDT [facility]ORY [facility] Unit Crossmatch Compatible 09/17/2023 12:11 PM EDT LAB[facility]ATORY [facility] Unit Status IS 09/17/2023 12:17 PM EDT LAB[facility]ORY [facility] Unit Blood Type OPOS 09/17/2023 12:17 PM EDT LABORATORY [facility] Unit Expiration [id number] 09/17/2023 12:17 PM EDT LABORATORY [facility] Unit Barcode [id number] 09/17/2023 12:17 PM EDT LAB[facility]ATORY [facility] 09/17/2023 12:0 5 PM EDT Lakeshia ZARAGOZA BLD BANK PRODUCT ORDERABLES LAB[facility]ATORY [facility] [address] [place] [address] documented in this encounter Visit Diagnoses Diagnosis 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 Acetaminophen (Tylenol) tab 650 mg 650 mg, Oral, ONCE PRN Other, Transfusion Reaction, Starting on Tess 09/17/23 at 1200, Until Thu09/18/23 at 1159, For 24 hours, Maximum of 4 grams (4000 mg) per day. diphenhydrAMINE (Benadryl) cap 25 mg 25 mg, Oral, ONCE PRN Other, If previous infusion reaction with blood transfusion, Starting on Thu09/17/23 at 1315, Until Discontinued diphenhydrAMINE (Benadryl) cap 25 mg 25 mg, Oral, ONCE PRN Other, Transfusion Reaction, Starting on Thu09/17/23 at 1200, Until Thu09/18/23 at 1159, For 24 hours diphenhydrAMINE (Benadryl) inj 50 mg 50 mg, IV Push, ONCE PRN Other, Hypersensitivity Reaction, Starting on Thu09/17/23 at 1200, Until Thu09/18/23 at 1159, For 24 hours EPINEPHrine 1 MG/ML inj 0.3 mg 0.3 mg, Intramuscular, ONCE PRN Other, Hypersensitivity Reaction or Anaphylaxis, Starting on Thu09/17/23 at 1200, Until Thu09/18/23 at 1159, For 24 hours hEParin 100 UNIT/ML Lock Flush inj 500 Units 500 Units (5 mL), IV Lock, PRN Other, IV Flush, Starting on Thu09/17/23 at 1200, Until Thu09/18/23 at 1159, For 24 hours, Do not flush if lock, PICC, or central line not in place; IV infusing or unable to flush. Hydrocortisone Sod Suc (PF) (Solu-Cortef) inj 100 mg 100 mg, IV Push, ONCE PRN Other, If previous infusion reaction with blood transfusion, Starting on Thu09/17/23 at 1315, Until Discontinued Hydrocortisone Sod Suc (PF) (Solu-Cortef) inj 100 mg 100 mg, IV Push, ONCE PRN Other, Hypersensitivity Reaction, Starting on Thu09/17/23 at 1200, Until Thu09/18/23 at 1159, For 24 hours NSS infusion 500 mL, Intravenous, at 50 mL/hr, CONTINUOUS, Starting on Thu09/17/23 at 1315, Until Thu09/17/23 at 2314 Start Infusion 09/17/2023 12:09 PM EDT 500 mL 50 mL/hr oxygen GAS Inhalation, OXYGEN, First dose on Thu09/17/23 at 1600, Until Discontinued, Device/Managed by: Low Flow Device, Goal SPO2 (%): 91-95, Starting Device: Nasal Cannula, Initial Flow Rate (LPM): 2, Lowest Support: Nasal Cannula: Flow 0-6 LPM. Titrate up/down by 1 LPM., Higher Support: Non-Rebreather (NRB) Mask: Minimum of 10 LPM. Titrate to maintain bag inflation., Titration Interval: Q2 minutes and as needed., Notify Provider: For sudden DECREASE in resting SPO2 to less than 85% and when escalating delivery device., Wean patient off Oxygen when the oxygen saturation is greater than or equal to 93% sodium chloride 0.9 % flush central line 10 mL 10 mL, IV Push, PRN Other, IV Flush, Starting on Tess 09/17/23 at 1200, Until Thu09/18/23 at 1159, For 24 hours, Do not flush if lock, PICC, or central line not in place; IV infusing or unable to flush. documented in this encounter Advance Directives Documents on File Type Date Recorded Patient Oil Heat[employer] anation Power of Field Pipelines Supervisor 09/15/2023 signed on 07/08/2023 * Full Code [...] Agents on File Name Relationship Healthcare Agent [facility] p Communication Trixie [facility] Repr esentative (appointed verbally by patient or by statute hierarchy) [email or web address] Care Teams Certified Juvenile Probation Officer Relationship Specialty Start Date End Date Kayla Reeder DO [address] [facility] [place] [address] PCP - General Family Medicine 06/11/23 documented as of this encounter"
--- OUTSIDE RECORDS SUMMARY | 2023-09-18 21:14 | External Medical Summary ---
Author Name Unknown Address Unknown Organization K1F:LABORATORY [facility] - [address] [place] [address] Laboratory Report Ordering Provider Test Date Status MATTI BARAJAS 09/17/2023 10:21:57 Final Observation Date Value Abnormality Reference (Units ) Status WBC, Total 09/17/2023 10:21:57 0.55 Below lower panic limits 4.00-10.80 (K/uL) Final Results rechecked.
null RBC 09/17/2023 10:21:57 1.94 4.50-5.25 (M/uL) Final Hemoglobin 09/17/2023 10:21:57 6.1 Below low normal 14 .0-16.8 (g/dL) Final HCT 09/17/2023 10:21:57 18.5 Below low normal 40. 0-48.4 (%) Final MCV 09/17/2023 10:21:57 95.4 82.0-99.5 (fL) Final MCH 09/17/2023 10:21:57 31.4 27.0-34.0 (pg) Final MCHC 09/17/2023 10:21:57 33.0 32.0-36.0 (g/dL) Final RDW 09/17/2023 10:21:57 17.6 11.5-15.5 (%) Final Platelets 09/17/2023 10:21:57 37 Below low normal 140 -400 (K/uL) Final Results rechecked.
null MPV 09/17/2023 10:21:57 10.1 6.6-11.1 ( fL) Final Nucleated erythrocytes/100 leukocytes [Ratio] in Blood by Automated count 09/17/2023 10:21:57 0 <=0 (/100 WBCs) Fi nal Performing Location LAB[facility]ORY [facility] - [address] [place] [address]
--- OUTSIDE RECORDS SUMMARY | 2023-09-18 21:15 | External Medical Summary | Summary of Care ---
Author Name Unknown Organization [facility] Address [address] [place] [address] Phone [phone] Care Team Providers Care Blindstitch Hemmer Name Role Phone VarinderKayla Primary Care Provider +1- [phone] Reason for Visit * Reason Onset Date Comments Appointment 09/14/2023 Encounter Details Date Type Department Care Team (Late st Contact Info) Description 09/14/2023 Telephone Hematology/Oncology Treatment, [facility] [address] [place] [address] Mike Chaudhary MD [address] [place] [address] Appointment Allergies No known active allergiesdocumented as of this encounter (statuses as of 09/14/2023) Medications Medication Sig Dispensed Refills Start Date [...] as of this encounter (statuses as of 09/14/2023) Active Problems Patient Care Coordination No te Formatting of this note migh t be different from the original. Patient receiving home chemo infusion and gets disconnected in the [facility]. Problem Noted Date Diagnosed Date Antineoplastic chemotherapy [...] as of this encounter (statuses as of 09/14/2023) Resolved Problems Problem Noted Date Diagnosed Date [...] as of this encounter (statuses as of 09/14/2023) Immunizations Name Administration Dates Next Due DT [...] encounter Miscellaneous Notes * Telephone Encounter - Shannon Kendall RN - 09/14/2023 11:00 AM EDT Called farhad - left voicemail. Called Trixie - she states she sent her down to his home to get him. States he pounded on the door, no response, got the garcia and then entered Farhad's home. Farhad was not there. The father then went to the girlfriends house where they were unable to wake them up. Farhad then called hismother asking what happened and Trixie told him to call "her " apologize, and get down to his appointments. Trixie was unaware he had not yet arrived. Made aware Dr. Chaudhary still wants him to have his injection and he needs blood work today. Trixie attempting to call farhad and then willupdate nursing. Dr. Neena ARNOLD documented in this encounter Plan of Treatment Upcoming Encounters Date Type Department Care Team (Late st Contact Info) Description 09/17/2023 10:30 AM EDT Laboratory Laboratory, [address] [address] [facility], Lab [address] [place] [address] 09/17/2023 11:30 AM EDT Office Visit Hematology/Oncology, [address] [place] [address] Ritika Godfrey CRNP [address] [place] [address] 09/17/2023 12:00 PM EDT Hem/Onc Treatment Hematology/[address]cology Treatment, [address] [address] [facility], Chair9 Hem Onc [address] [place] [address] 09/18/2023 10:00 AM EDT Laboratory Laboratory, [address], [place] [address] [facility], Lab [address] [place] [address] 09/18/2023 11:30 AM EDT Hem/Onc Treatment Hematology/Oncology Treatment, [address] [address] [facility], Chair5 Hem Onc [address] [place] [address] [place] [address] 09/21/2023 9:10 AM EDT Laboratory Laboratory [address], [place] [address] [place] [phone] [place], [address] [place] [address] 09/25/2023 10:30 AM EDT Laboratory Laboratory, [address] [phone] [facility], [address] [address] 09/25/2023 11:30 AM EDT Telemedicine Hematology/Oncology, [address] [address] Mike Chaudhary MD [address] [place] [address] Herve Hurtadoed [facility] Hem Onc Clinic [address] [place] [address] 09/25/2023 2:40 PM EDT Office Visit Rheumatology [address] [place] [address] Oliver Zhang MD [address] [place] [address], [place] [address] 09/28/2023 2:00 PM EDT Appointment Radiology, [place] [address] [place] [phone] 09/30/2023 11:00 AM EDT Hem/Onc Treatment Hematology/Oncology Treatment, [address] [address] [facility], Chair2 Hem Onc [address] [place] [address] 10/02/2023 2:00 PM EDT Appointment Radiology, [address] [address] 10/05/2023 7:10 AM EDT Laboratory Laboratory, [address] [phone] [facility], Lab [address] [place] [address] 10/05/2023 8:00 AM EDT Immunization/Injection Hematology/Oncology Treatment, [address] [address] [facility], Chair2 Hem Onc [address] [place] [address] 10/08/2023 12:00 PM EDT Laboratory Laboratory, [address] [phone] [facility], Lab [address] [place] [address] 10/08/2023 1:00 PM EDT Office Visit Hematology/Oncology, [address] [address] Lakeshia Stone CRNP [address] [place] [address] 02/19/2024 12:00 PM EST [facility] [address] [place] [address] Kayla Reeder DO [address] [place] [place] [address] Health Maintenance Due Date Last Done Comments COVID-19 Vaccine (#1) 1993 Influenza Vaccine (FLU shot) (#1) 2023 11/17/2016, 11/17/2016, 11/30/2015, Additional history exists Depression Screening 07/07/2024 07/08/2023, 06/11/19 24 Albumin/Creatinine Ratio Discontinued 08/02/2021 documented as of this encounter Medical Devices Implanted Type Area Software Consultant Device Identifier Shelf Expiration Date Model / Serial / Lot Mediport Pwr Mri 8fr [id number] - [id number] Implanted:Qty : 1 on 07/17/2023 by Medhat Angel MD at OR [facility] Right: Chest CR BARD : PERIPHERAL VASCULAR 07/16/2024 [id number] / / [id number] Port Implant W8f Poly Cath - [id number] Implanted:Qty : 1 on 07/17/2023 by Medhat Angel MD at OR [facility] CR BARD : PERIPHERAL VASCULAR [id number] 07/16/2024 [id number] / / [id number] documented as of this encounter Advance Directives * Full Code (Latest Code Status on [...] Healthcare Agent Relationshi p Communication Trixie [facility] Repr esentative (appointed verbally by patient or by statute hierarchy) [email or web address] Care Teams Blindstitch Hemmer Relationship Specialty Start Date End Date Kayla Reeder DO [address] [facility] [place] [address] PCP - General Family Medicine 06/11/23 documented as of this encounter
--- OUTSIDE RECORDS SUMMARY | 2023-09-18 21:15 | External Medical Summary ---
Author Name Unknown Address Unknown Organization K1F[facility] [address] [facility] [place] [id number] Laboratory Report Ordering Provider Test Date Status CHANTEL JORDAN 09/14/2023 12:15:37 Final Observation Date Value Abnormality Reference (Units ) Status BUN 09/14/2023 12:15:37 10 6-20 (mg/dL) Final Creatinine 09/14/2023 12:15:37 0.7 0.6-1.2 (mg/dL) Final Glomerular filtration rate/1.73 sq M.predicted [Volume Rate/Area] in Serum, Plasma or Blood by Creatinine-based formula (CKD-EPI) 09/14/2023 12:15:37 >90 >=60 (mL/min) Final eGFR is calculated based on the CKD-EPI 2020 equation. Sodium 09/14/2023 12:15:37 142 135-146 (m mol/L) Final Potassium 09/14/2023 12:15:37 3.7 3.5-5.1 (m mol/L) Final Cl 09/14/2023 12:15:37 108 Above high normal 98 -107 (mmol/L) Final CO2 09/14/2023 12:15:37 25 22-32 (mmo l/L) Final Anion gap 09/14/2023 12:15:37 9 7-15 (mmol /L) Final Glucose 09/14/2023 12:15:37 120 70-120 (mg /dL) Final Albumin 09/14/2023 12:15:37 3.8 3.8-5.0 (g /dL) Final AST (Aspartate aminotransferase) 09/14/2023 12:15:37 52 Above high normal 10-50 (U/L) Final Results may be falsely eleva ketan due to hemolysis. Alk Phos 09/14/2023 12:15:37 72 35-130 (U/ L) Final Bilirubin, Total 09/14/2023 12:15:37 0.4 <=1 .2 (mg/dL) Final Calcium 09/14/2023 12:15:37 9.1 8.4-10.2 ( mg/dL) Final Protein 09/14/2023 12:15:37 6.0 6.0-8.3 (g /dL) Final ALT (Alanine aminotransferase) 09/14/2023 12:15:37 71 Above high normal 10-50 (U/L) Final Performing Location LABORATORY [facility] - [facility] [address]. [place] [id number]
--- OUTSIDE RECORDS SUMMARY | 2023-09-18 21:15 | External Medical Summary ---
Author Name Unknown Address Unknown Organization K1F:LABORATORY [facility] - [address] [address] Laboratory Report Ordering Provider Test Date Status MATTI BARAJAS 09/14/2023 12:15:37 Final Observation Date Value Abnormality Reference (Units ) Status Uric Acid 09/14/2023 12:15:37 6.2 3.4-7.0 (m g/dL) Final Performing Location [facility]ORY [facility] - [address] [place] [address]
--- OUTSIDE RECORDS SUMMARY | 2023-09-18 21:15 | External Medical Summary ---
Author Name Unknown Address Unknown Organization K1F:LABORATORY [facility] - [address] [address] Laboratory Report Ordering Provider Test Date Status MATTI BARAJAS 09/14/2023 12:15:37 Final Observation Date Value Abnormality Reference (Units ) Status LDH 09/14/2023 12:15:37 234 <=250 (U/L ) Final Results may be falsely eleva ketan due to hemolysis. Performing Location LAB[facility]ATORY [facility] - [address] [place] [address]
--- OUTSIDE RECORDS SUMMARY | 2023-09-18 21:15 | External Medical Summary ---
Author Name Unknown Address Unknown Organization K1F:LABORATORY [facility] - [address] [facility]. [place] [address] Laboratory Report Ordering Provider Test Date Status MATTI BARAJAS 09/14/2023 12:15:37 Final Observation Date Value Abnormality Reference (Units ) Status SYNC LEUKOCYTES IN BLOOD BY AUTOMATED COUNT 09/14/2023 12:15:37 2.95 Below low normal 4.00-10.80 (K/uL) Final Segs 09/14/2023 12:15:37 87.4 Above high normal 40.0-75.0 (%) Final Lymphs % 09/14/2023 12:15:37 10.2 Below low normal 18.0-42.0 (%) Final Monos 09/14/2023 12:15:37 0.3 Below low normal 1.0-11.0 (%) Final Eosinophils 09/14/2023 12:15:37 0.0 0.0-6.0 (%) Final Basos 09/14/2023 12:15:37 0.7 0.0-2.0 (%) Final Immature Granulocyte, Percent 09/14/2023 12:15:37 1.4 0.0-2.0 (%) Final Absolute Segs 09/14/2023 12:15:37 2.58 1.80-7.70 (K/uL) Final Lymphs, absolute 09/14/2023 12:15:37 0.30 Below low normal 1.00-4.80 (K/ul) Final Monos, Abs 09/14/2023 12:15:37 0.01 0.00-1.10 (K/uL) Final Eos, Abs 09/14/2023 12:15:37 0.00 0.00-0.70 (K/uL) Final Basos, Abs 09/14/2023 12:15:37 0.02 0.00-0.20 (K/uL) Final Immature Granulocytes, Number 09/14/2023 12:15:37 0.04 0.00-0.20 (K/uL) Final Performing Location LABORATORY [facility] - [facility] [address]ano. [place] [id number]
--- OUTSIDE RECORDS SUMMARY | 2023-09-18 21:15 | External Medical Summary | Summary of Care ---
Author Name Unknown Organization [facility] Address [address] [place] [address] Phone [phone] Care Team Providers Care Thermometer Maker Name Role Phone Kayla Reeder DO Primary Care Provider [phone] Reason for Visit * Reason Comments Follow Up Encounter Details Date Type Department Care Team (Late st Contact Info) Description 09/04/2023 11:00 AM EDT Telemedicine Hematology/Oncology , [facility] [address] [place] [address] Mike Chaudhary MD [address] [place] [address] 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); Encounter to discuss test results; Encounter for antineoplastic chemotherapy; Encounter to discuss treatment options; Encounter for medication monitoring; Generalized weakness Allergies No known active allergiesdocumented as of [...] NOT CUT, CRUSH OR CHEW 180 Tablet 08/05/19 23 Active Additional Information Patient taking differently: 500 mg Oral QHS, Reported on 06/02/2023 Propranolol HCl 40 MG Oral Tablet (Inderal)Indicatio ns:Migraine with aura and without status migrainosus, not intractable,HTN, goal below 140/90 TAKE ONE TABLET BY MOUTH TWICE A DAY (IN THE MORNING AND BEFORE BEDTIME) 180 Tablet 3 02/23/19 24 Active hydroCHLOROthiazid e 12.5 MG Oral Capsule (Hydrodiuril)Indic ations:History of petit-mal seizures Take 1 Capsule by mouth in the morning. 90 Capsule 03/02/19 24 Active Celecoxib 200 MG Oral Capsule (CeleBREX)Indicati ons:Migraine with aura and without status migrainosus, not intractable Take 1 Capsule by mouth in the morning. Every morning.. 30 Capsule 05/01/19 24 Active Pantoprazole Sodium 40 MG Oral Tablet Delayed Release (Protonix)Indicati ons:Gastroesophage al reflux disease with esophagitis without hemorrhage TAKE ONE TABLET BY MOUTH EVERY MORNING 30 MINUTES BEFORE THE FIRST MEAL OF THE DAY. DO NOT CRUSH,SPLIT OR CHEW THE TABLET 30 Tablet 05/22/19 24 Active Proventil HFA 108 (90 Base) MCG/ACT Inhalation Aerosol SolutionIndication s:Chronic cough Inhale 2 Puffs by mouth every 4 hours as needed for Wheezing, Shortness of Breath or Cough. 18 g 06/09/19 24 Active Fluticasone-Salmet alex 250-50 MCG/ACT Inhalation Aerosol Powder Breath Activated (Advair Diskus)Indications :Chronic cough INHALE ONE PUFF BY MOUTH EVERY MORNING AND ONE PUFF BEFORE BEDTIME 60 Each 06/11/19 24 Active Sulfamethoxazole-T rimethoprim 400-80 MG Oral Tablet (Bactrim) Take 1 Tablet by mouth in the morning. 30 Tablet 07/08/19 24 Active Sennosides-Docusat e Sodium 8.6-50 MG Oral Tablet (Senokot-S) Take 2 Tablets by mouth in the morning and 2 Tablets in the evening. 60 Tablet 07/07/19 24 Active Naloxone HCl 4 MG/0.1ML Nasal Liquid (Narcan Nasal) Administer 1 nasal spray device into one nostril as needed for suspected opioid overdose. Seek medical help immediately. If no response after 2-3 minutes, administer second nasal spray device in other nostril. 2 Each 3 07/07/19 24 Active Magic Swizzle (Lidocaine-Benadry l-Maalox) oral solution Swish and spit 15 mL 4 times a day as needed for Sore throat (oral pain). 900 mL 07/14/19 24 Active Prochlorperazine Maleate 5 MG Oral Tablet (Compazine)Indicat ions:Chemotherapy induced nausea and vomiting Take 1 Tablet by mouth every 8 hours as needed for Nausea. 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 30 Tablet 07/24/19 24 Active Sulfamethoxazole-T rimethoprim 400-80 MG Oral Tablet (Bactrim)Indicatio ns:Encounter for antineoplastic chemotherapy,Burki tt lymphoma of intra-abdominal lymph nodes (HCC) Take 1 Tablet by mouth in the morning. Take 1 tab by mouth daily throughout all chemotherapy cycles.. 30 Tablet 5 07/24/19 24 Active Ondansetron HCl 8 MG Oral TabletIndications: Encounter for antineoplastic chemotherapy,Burki tt lymphoma of intra-abdominal lymph nodes (HCC) Take 1 Tablet by mouth every 8 hours as needed for Nausea. Take 2 tabs Daily for 4 days after starting chemotherapy. 8 Tablet 5 07/24/19 24 Active predniSONE 20 MG Oral Tablet (Deltasone)Indicat ions:Encounter for antineoplastic chemotherapy,Burki tt lymphoma of intra-abdominal lymph nodes (HCC) Take 7.25 Tablets by mouth in the morning and 7.25 Tablets before bedtime. Take twice a day with food on Days 1-5 of EPOCH treatment only. 75 Tablet 5 07/27/19 24 Active Morphine Sulfate 15 MG Oral Tablet (Msir)Indications: Cancer related pain Take 1 Tablet by mouth every 6 hours as needed for Pain, Breakthrough. 30 Tablet 08/14/19 24 Active Potassium Chloride Ashley ER 10 MEQ Oral Tablet Extended ReleaseIndications :Hypokalemia TAKE TWO TABLETS BY MOUTH EVERY MORNING AND TWO TABLETS BEFORE BEDTIME. DO ALL THIS FOR 14 DAYS 56 Tablet 08/24/19 24 Active Buprenorphine HCl 2 MG Sublingual Tablet Sublingual (Subutex)Indicatio ns:Cancer related pain Place 0.5 Tablets under the tongue in the morning and 0.5 Tablets in the evening. 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 When ANC less than 500. 30 Tablet 08/28/19 24 Active Topiramate 100 MG Oral Tablet (topAMAX) Take 1 Tablet by mouth in the morning and 1 Tablet before bedtime. 180 Tablet 3 08/28/19 24 Active Loratadine 10 MG Oral Tablet (Claritin)Indicati ons:Chronic cough Take 1 Tablet by mouth in the morning. 30 Tablet 11 05/01/19 24 024 Discontinued(Me dication/Dose Changed) Famotidine 20 MG Oral Tablet (Pepcid)Indication s:Acid indigestion Take 1 Tablet by mouth in the morning. 30 Tablet 08/11/19 24 024 Potassium Chloride Ashley ER 10 MEQ Oral Tablet Extended ReleaseIndications :Hypokalemia Take 2 Tablets by mouth in the morning and 2 Tablets before bedtime. 56 Tablet 08/22/19 24 024 Discontinued documented as of this encounter (statuses as of 09/14/2023) Active Problems Patient Care Coordination No te Formatting of this note migh t be different from the original. Patient receiving home chemo infusion and gets disconnected in the [facility]. Problem Noted Date Diagnosed Date Antineoplastic chemotherapy [...] Past Smokeless Tobacco: Never Tobacco Cessation:Counseling Given: No Comments:4-5 cigs/day Alcohol Use Standard Drinks/Week Comments [...] Sign Reading Time Taken Comments Blood Pressure 113/71 09/04/2023 11:11 AM EDT Pulse 73 09/04/2023 11:11 AM EDT Temperature 36.9 C (98.4 F) 09/04/2023 1 1:11 AM EDT Respiratory Rate 16 09/04/2023 11:1 1 AM EDT Oxygen Saturation 96% 09/04/2023 11: 11 AM EDT Inhaled Oxygen Concentration - - Weight 109.9 kg (242 lb 4.8 oz) 024 11:11 AM EDT Height - - Body Mass Index 33.79 08/21/2023 9:40 AM EDT documented in this encounter Functional [...] as of this encounter Progress Notes * Mike Chaudhary MD - 09/04/2023 11:20 AM EDT Images from the original note were not included. TeleVIDEO Visit Patient location: CLINIC. I was not in a hospital or clinic location. After connecting through televideo, patient was verified with two unique identifiers. Patient (or authorized legal telephone services sales representative) was then informed that this was a Telemedicine visit and being conducted confidentially over secure lines. My office door was closed. No one else was in the room with me. Patient acknowledged consent and understanding of privacy and security of the Telemedicine visit, and gave permission to have atelemedicine presenter stay in the room in order to assist with the history and to conduct the examas needed. I informed the patient that I have reviewed their record in [facility] and presented the opportunity for them to ask any questions regarding the visit today. The patient agreed to participate. 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 Also, patient with remotehistory of immunosuppressive meds. NEGATIVE HIV. High risk (retroperitoneal abdominal mass, > 7cm, High LDH). [email or web address] Bulky disease (single mass >7 cm) Stage III (Retroperitoneal disease), with no bone marrow, or SPECIAL EDUCATION RESOURCE ROOM TEACHER involvement (LP x 2, Rare atypicallymphocytes W/small lymphocytes favor reactive lymphomonocytosis, flow:no evidence of clonal or aberrant cells) Retroperitoneal biopsy; IHC: Aggressive CD10+ B-cell lymphoma with EBV expression. Ki-67 = 80-90%. Flow cytometry: RR70-mmfhfazi B cell population expressing kappa light chains. FISH: t(8:14). 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 H/O seizures, last was in high school, has been on Depakote and toapmax for years Cognitive, and learning disabilities Gout HTN Former smoker, quit 2 years ago Treatment rendered: CALGB 1002 Pre-phase: Cyclophosphamide 200 mg/m2 IV days 1-5 (06/26/23-06/30/23) Prednisone 60 mg/m2 PO days 1-7 IT MTX 12 mg (07/02/23, 07/22/23) Current treatment: [email or web address] Risk-adapted DA-EPOCH-R Q 21 days, with G-CSF support x 6 cycles (07/02/23- )---> C1 started IP, w/o steroids d/t getting pre phase steroids. 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) 06/25/2023 Initial Diagnosis B-cell lymphoma of intra-abdominal lymph nodes (HCC) 06/26/2023 - 07/09/2023 Chemotherapy CALGB 27546 Pre-Phase ONLY (1 Cycle/14 Days) [id number] 07/01/2023 - 07/01/2023 Chemotherapy OP CHOP-R every 21 days (Lymphoma) [id number] 07/02/2023 - 07/09/2023 Chemotherapy IP DA-EPOCH every 21 days (Lymphoma) [id number] 07/02/2023 - Supportive Therapy SCP - INTRATHECAL CHEMOTHERAPY (HEMATOLOGY) [id number] Plan Provider: Yaz Molina MD Treatment goal: Supportive Line of treatment: [No plan line of treatment] 07/24/2023 - Chemotherapy OP DA-EPOCH-R every 21 days (Clinic Administration 48hr EPOCH infusion) [id number] 07/27/2023 - 07/27/2023 Chemotherapy Outpatient DA R-EPOCH Home Health Administration (48hr EPOCH infusion) [id number] 08/11/2023 - Supportive Therapy SCP - PORT FLUSH Plan Provider: Mkie Chaudhary MD Treatment goal: Supportive Line of treatment: Maintenance 08/27/2023 - Chemotherapy SCP - PACKED RED BLOOD CELLS AND PLATELETS FOR ADULTS REQUIRING FREQUENT TRANSFUSIONS (3 TIMES A WEEK FOR 3 MONTHS) [id number] 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 He reported generalized weakness, and feeling tired with chemotherapy. Overall, he is tolerating chemotherapy very well. He reported mild nausea, that controlled on Zofran. He denied constipation, diarrhea, vomiting, or neuropathy. He keeps himself well hydrated. He is taking all his supportive medications. History of present illness (at time of my initial evaluation on 07/27/2023 ): Farhad Franco is a 32 year old male , presented to my office today accompanied by his mother to establish care with outpatient lead massage therapist for evaluation, treatment of his newly diagnosed Burkittcell lymphoma. Patient lives 1 hour away from [facility]. He lives with his 4-year-old son. Patient is . He is on disability. Patient was admitted to [facility], and then transferred to [facility] because of Burkitt's lymphoma with hospital courses as below HOSPITAL COURSE (focused): - [facility] 06/20/2023 - 07/07/2023 (17 days): "Farhad Franco is 32 year old male with a past medical history significant for cerebral vasculitis (primary cerebral angiitis following Rheumatology in [place]) complicated by stroke at the age of7, migraine with aura, nephrolithiasis, petite mal seizures presented to [facility] with complaint of abdominal pain. Transferred from [facility] ER to [facility] to assess for IR biopsy in the setting of rapidly enlarging retroperitoneal mass on CT imaging. As per mother, he was on number of medications for his vasculitis like CellCept, Cytoxan, methotrexate from 1997 through 2014. Biopsy of retroperitoneal mass consistent with CD10 positive high-grade lymphoma with continued abdominal pain requiring morphine ADMISSIONS DIRECTOR pump. His uric acid was elevated s/p rasburicase. Transferred to inpatient service for initiating chemotherapy. Mr. Franco was admitted to medicine 06/19 with abdominal and back pain and due to concerns for lymphoma and IR performed a retroperitoneal mass biopsy. Palliative medicine was consulted for pain control related to his retroperitoneal mass. Hematology was consulted concerning concern for lymphoma and his biopsy did show a aggressive CD10+ B cell lymphoma and thus he was transferred to hematology for urgent chemotherapy. Bone marrow biopsy did not show any lymphoma involvement. He was started on pre-phase chemotherapy w cytoxan and prednisone while his pathology finalized. Mild TLS was controlledwith rasburicase and allopurinol. His pathology was finalized w FISH showing MYC + confirming Burkitts lymphoma. Thus, he was started on DA R-EPOCH chem which he tolerated well. Testicular and ocularw/u was negative for involvement. He had a LP with IT MTX on 07/02/23 and his CSF was negative for lymphoma. He had mild chest pain and his cardiology w/u was negative however a CXR done showed a L pneumonia. Although he had no respiratory symptoms, due to likely upcoming neutropenia from chemo he was started on a 10 day course of augmentin and cipro. Given he was stable, he was discahrged on atbxand will follow up 07/08 for a G-CSF shot and will see a AP in clinic on 07/14. Operations & Procedures: Bone marrow biopsy 06/25/23, lumbar puncture 07/02/23" HOSPITAL COURSE (focused) [facility]- 07/12/2023 - 07/14/2023 (2 days): 32 yo male presents to the [facility] ED c/o headache. Found to be pancytopenic on admission, not requiring transfusion. MRI done which was negative for acute change or metastasis. Headache resolved throughcourse of admission. Cell lines remained stable during admission, abx ppx was changed to levaquin. Oncology was consulted, recommended no additional change on management. Was discharged in stable condition on 07/13 with plan for close f/u with oncology OP. Review of Systems: Negative except as mentioned above Past Medical History: Diagnosis Date Adjustment disorder with depressed mood 08/14/2009 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 Follows in [place] q6m Cerebrovascular accident (CVA) (HCC) Gastroesophageal reflux disease with esophagitis 12/18/2014 History of petit-mal seizures 03/07/2016 Migraine with aura and without status migrainosus, not intractable 12/18/2014 Pneumonia of left lower lobe due to infectious organism 07/05/2021 Retroperitoneal mass 06/21/2023 Tobacco use disorder 01/01/2016 Past Surgical History: Procedure Laterality Date COLONOSCOPY, DIAGNOSTIC (RECTUM) 02/05/2022 normal bx / COLONOSCOPY FLEXIBLE PROXIMAL DIAGNOSTIC performed by Laurence Dent MD at ENDOSCOPY [facility] EGD, FLEXIBLE, DIAGNOSTIC 02/05/2022 normal bx / ESOPHAGOGASTRODUODENOSCOPY (EGD), FLEXIBLE, TRANSORAL, DIAGNOSTIC performed by Laurence Dent MD at ENDOSCOPY [facility] INFORMATION Arteriograms. INSER TUNN ACC DEV;5 YRS/OLDER Right 07/17/2023 INSERT TUNNELED CENTRAL VENOUS ACCESS WITH SUBQ PORT performed by Medhat Angel MD at OR [facility] IR BIOPSY 06/22/2023 [place] ANESTH,OPEN HEAD SURGERY Social History Tobacco Use Smoking status: Former Current packs/day: [...] Refillable tank Passive vaping exposure: Yes Substance Use Topics Alcohol use: Yes Comment: rarely - only on my birthday and new years Drug use: Never Family History Problem Relation Name Age of Onset Cervical Cancer Mother Uterine cancer Grandmother (Maternal) Uterine cancer Aunt (Maternal) Current Outpatient Medications Medication Sig Dispense Refill [...] mouth in the morning. 90 Capsule 1 Loratadine 10 MG Oral Tablet (Claritin) Take 1 Tablet by mouth in the morning. 30 Tablet 11 Celecoxib 200 MG Oral Capsule (CeleBREX) Take [...] other nostril. 2 Each 3 Magic Swizzle (Nlleiqlcm-Qrhglbwp-Vqnshc) oral solution Swish and spit 15 mL [...] of EPOCH treatment only. 75 Tablet 5 Famotidine 20 MG Oral Tablet (Pepcid) Take 1 Tablet by mouth in the morning. 30 Tablet 0 Morphine Sulfate 15 MG Oral Tablet (Msir) Take 1 Tablet by mouth every 6 hours as needed for Pain, Breakthrough. 30 Tablet 0 Potassium Chloride Ashley ER 10 MEQ Oral Tablet Extended Release TAKE TWO TABLETS BY MOUTH EVERY MORNING AND TWO TABLETS BEFORE BEDTIME. DO ALL THIS FOR 14 DAYS 56 Tablet 0 Potassium Chloride Ashley ER 10 MEQ Oral Tablet Extended Release Take 2 Tablets by mouth in the morning and 2 Tablets before bedtime. 56 Tablet 0 Buprenorphine HCl 2 MG [...] 1 Tablet before bedtime. 180 Tablet 3 No current facility-administered medications for this visit. Review of patient's allergies indicates: No Known Allergies Physical exam: Vitals 08/27/2023 08/28/2023 08/31/2023 09/01/2023 09/02/2023 12:48 09/04/2023 Vitals BP 110/73 113/71 Pulse 80 73 Resp 18 16 Temp 36.8 C (98.2 F) 36.9 C (98.4 F) SpO2 100 % 96 % Weight 245 lb 6.4 oz 242 lb 4.8 oz Notes Notes Patient Instructions Addendum Arlyn Melvin, RN Telephone Encounter Signed Shannon Kendall RN Telephone Encounter Signed Radha Grimm CPhT Telephone Encounter Signed Lakeshia Stone CRNP Telephone Encounter Signed Kayla Reeder, Progress Notes Sign when Signing Visit Tegan Burleson LPN Details More values are hidden. Newest values shown. Go to activity for more data. General: alert and no distress Head: Normocephalic, No masses, lesions, tenderness or abnormalities Rest of examination can not be performed because of video visit Labs: Results for orders placed or performed in visit on 09/04/23 URIC ACID Result Value Ref Range Uric Acid 6.4 3.4 - 7.0 mg/dL LD Result Value Ref Range LD 416 (H) <=250 U/L CBC Result Value Ref Range WBC 16.51 (H) 4.00 - 10.80 K/uL RBC 2.87 4.50 - 5.25 M/uL HGB 9.2 (L) 14.0 - 16.8 g/dL HCT 28.2 (L) 40.0 - 48.4 % MCV 98.3 82.0 - 99.5 fL MCH 32.1 27.0 - 34.0 pg MCHC 32.6 32.0 - 36.0 g/dL RDW 20.9 11.5 - 15.5 % PLT 140 140 - 400 K/uL MPV 10.6 6.6 - 11.1 fL nRBCs 1 (H) <=0 /100 WBCs COMPREHENSIVE METABOLIC PANEL Result Value Ref Range BUN 15 6 - 20 mg/dL Creatinine 0.7 0.6 - 1.2 mg/dL Estimated Glomerular Filtration Rate >90 >=60 mL/min Sodium 141 135 - 146 mmol/L Potassium 3.8 3.5 - 5.1 mmol/L Chloride 106 98 - 107 mmol/L CO2 22 22 - 32 mmol/L Anion Gap 13 7 - 15 mmol/L Glucose 106 70 - 120 mg/dL Albumin 3.9 3.8 - 5.0 g/dL AST 22 10 - 50 U/L Alkaline Phosphatase 117 35 - 130 U/L Bilirubin, Total 0.2 <=1.2 mg/dL Calcium 8.9 8.4 - 10.2 mg/dL Protein 6.3 6.0 - 8.3 g/dL ALT 19 10 - 50 U/L DIFFERENTIAL, TECHNOLOGIST REVIEW Result Value Ref Range WBC 16.51 (H) 4.00 - 10.80 K/uL Neutrophils % 74.0 40.0 - 75.0 % Lymphocytes % 6.0 (L) 18.0 - 42.0 % Monocytes % 5.0 1.0 - 11.0 % Metamyelocytes % 11.0 (H) <=0.0 % Myelocytes % 4.0 (H) <=0.0 % Absolute Neutrophils 12.22 (H) 1.80 - 7.70 K/uL Absolute Lymphocytes 0.99 (L) 1.00 - 4.80 K/uL Absolute Monocytes 0.83 0.00 - 1.10 K/uL Absolute Metamyelocytes 1.82 (H) <=0.00 K/uL Absolute Myelocytes 0.66 (H) <=0.00 K/uL Toxic Granulation Moderate (A) None Seen Imaging: FLUORO GUIDED CHEMO ADMIN INTO SPECIAL EDUCATION RESOURCE ROOM TEACHER Result Date: 08/21/2023 IMPRESSION Successful fluoroscopically guided lumbar puncture for administration of intrathecal chemotherapy. I have personally reviewed this examination and agree with the resident/fellow physician's interpretation. FLUORO GUIDED CHEMO ADMIN INTO SPECIAL EDUCATION RESOURCE ROOM TEACHER Result Date: 08/17/2023 IMPRESSION Final report Successful fluoroscopy guided lumbar puncture and intrathecal chemotherapy administration without immediate complication. I have personally reviewed this examination and agreewith the resident/fellow physician's interpretation. FLUORO GUIDED CHEMO ADMIN INTO SPECIAL EDUCATION RESOURCE ROOM TEACHER Result Date: 07/22/2023 IMPRESSION Successful fluoroscopy guided lumbar puncture and intrathecal chemotherapy administration without immediate complication. IR INTERVENTIONAL RADIOLOGY PROCEDURE IN OR Result Date: 07/17/2023 IMPRESSION: Successful placement of a chest power injectable medical port. MRI BRAIN W WO CONTRAST Result Date: 07/13/2023 IMPRESSION: No acute intracranial abnormality nor suspicious lesion. Chronic left ADMISSIONS DIRECTOR territory infarct. CTA HEAD/CTA NECK Result Date: 07/13/[address] HEAD WITHOUT CONTRAST shows: 1. No CT evidence for acute intracranial abnormality. 2.Stable chronic encephalomalacia in the left occipital lobe, likely sequela of chronic infarct. CTA HEAD AND NECK shows: 1. Redemonstration of multifocal areas of irregular stenosis or hypoplasia of the cerebral vasculature as above, left worse than right, stable to slightly worsened since prior andpossibly representing sequela of reported cerebral vasculitis. There is especially small caliber/poor opacification of the distal branches of the left posterior cerebral artery, though this finding is similar to prior. 2. Carotid and vertebral arterial systems are widely patent in the neck bilaterally. If there is concern for acute ischemia or other acute intracranial process, noncontrast MRI of the brain could be considered for further evaluation. XR CHEST 1 VIEW Result Date: 07/06/2023 IMPRESSION Left-sided infiltrate, compatible with pneumonia. US SCROTUM/TESTES Result Date: 06/29/2023 IMPRESSION 1. No sonographic evidence of intratesticular lesion. 2. Bilateral varicoceles. I have personally reviewed this examination and agree with the resident/fellow physician's interpretation. CT HEAD/BRAIN W WO CONTRAST Result Date: 06/29/2023 IMPRESSION 1. No acute intracranial abnormality. 2. No abnormal intracranial enhancement. If there is continued clinical concern for intracranial disease, MRI brain with and without contrast is suggested which is more sensitive. CT ABD/PELVIS WO IV/ORAL CONTRAST Result Date: 06/26/2023 IMPRESSION 1. There is a confluent lobulated mass in the retroperitoneum compatible with adenopathy. This may be slightly increased in size from the previous examination. There is also increased fat stranding noted around the mass. There is encasement of the vasculature which is suboptimally assessed due to lack of IV contrast. 2. There is some stranding in the root of the small bowel mesentery as well. 3. There are patchy ill-defined infiltrates in the lung bases. There is a left lower lobe nodule measuring 7 mm. These do not appear significantly changed from 06/20/2023. 4. There is a catheter whose tip is in the right ventricle. 5. The spleen is mildly enlarged. 6. Nonobstructing calculi in the left kidney. XR CHEST 1 VIEW Result Date: 06/26/2023 IMPRESSION Right PICC with tip at the mid right atrium. IR BIOPSY Result Date: 06/23/2023 IMPRESSION: CT-guided percutaneous fine needle aspiration and core biopsy of retroperitoneal mass. PLAN: Ordering clinician to follow-up results with patient. CTA CHEST/ABDOMEN/PELVIS Result Date: 06/20/2023 IMPRESSION: 1. No acute arterial pathology. 2. 8 x 8 x 8 cm upper retroperitoneal lesion, most suggestive of lymphoma. 3. Probable minor multilobar pneumonitis. 4. Nonobstructive left nephrolithiasis. THIS DOCUMENT HAS BEEN ELECTRONICALLY SIGNED BY ANUP NO MD XR ABDOMEN 1 VIEW Result Date: 05/21/2023 IMPRESSION Left renal calculi. Pathology Review: Retroperitoneum, CT guided fine needle aspiration (06/22/23) Addendum 2 A. Retroperitoneum, CT guided fine needle aspiration: - [id number] B-cell lymphoma expressing EBV and t(8:14), consistent with Burkitt lymphoma. FISH studies BCL2 (18q21) Rearrangement Not Detected BCL6 (3q27) Rearrangement Not Detected MYC (8q24) Rearrangement Detected MYC/IgH/CEN8 t(8;14) Detected Dr. Retana was notified of the updated diagnosis on 07/01/23 at 3:45 PM via secure messaging. Addendum electronically signed by Ritika Mane DO on 07/01/2023 at 1238 Final Diagnosis A. 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 See comment. at 1607 Cytology Diagnostic Comment The differential includes diffuse large B-cell lymphoma with EBV expression, Burkitt's lymphoma, orhigh grade B-cell lymphoma. Final categorization requires correlation of FISH studies to morphologic evaluation. Prior Cancer None Indication for Procedure rapidly enlarging retroperitoneal mass Gross Description A. Retroperitoneum. Received are 2 air dried and 1 fixed slides and specimen in RPMI labeled with name: Farhad Franco and retroperitoneum and verified with the patient's name and date of . Specimen A1 contains 3cores measuring up to 1.5 cm. Specimen A3 contains 2 cores measuring up to 1.5 cm. Specimen sent for cell block and Specimen held for FLOW cytometry. The slides are stained and specimens are preparedfor cell blocks at [facility]. The cell blocks are submitted in cassettes A1/A3 and processed at [facility]./MZ Prepared by: XIMENA Formalin fixation time: 10 hours Microscopic Description B. Sections show small core needle biopsies with small foci of medium-sized to large lymphoid cells. The lymphoid cells have variable amounts of cytoplasm, round to oval nuclei, fine to vesicular chromatin, and several small to medium nucleoli often adjacent to the nuclear membrane. Tingible-body macrophages and variable numbers of small lymphocytes and histiocytes are also present. Immunohistochemical staining is performed on block A3 to characterize the cells with appropriate staining noted in controls. CD3 stain background small sized T-cells. [place]-5 stains B-cells and is diffusely positive in the abnormal cells. Bcl-6 are in the abnormal B-cell. Bcl-2 is predominately negative in the large lymphocytes and stains background small sized lymphocytes. c-Myc is expressed in the majority of tumor cells consistent with double expressor phenotype. Ki-67 shows a high proliferation rate of 80-90%. EBV in situ hybridization is diffusely positive. CD30, CD23, and CD21 are negative in the B-cells. P53 shows weak diffuse staining. Intraprocedural Assessment A. Retroperitoneum. Collecting Physician: Dr Drew Type of Assessment: Telecytology used Onsite Personnel: Padmini Villafuerte DO Time: 12:37 Source: Retroperitoneum Part: [id number] Pass(es): 1 Adequacy: Less than optimal/Material collected for ancillary studies Preliminary: Defer Additional tube for molecular/Flow: Yes Reason for terminating procedure: Procedure endpoint (reasonable number of passes made) Additional Information: End Time: 13:38 Intraprocedural assessment performed by: Emir Cantu MD Specimen sent for: Specimen sent for cell block and Specimen held for FLOW cytometry Flow cytometry Indication for Flow Testing Retroperitoneum mass . Viability (%) Specimen A: 96 % . Cell Count Specimen A: 480 Cells/uL in 0.4 mL of fluid Gross Description A. Retroperitoneum. Specimen: A, Source: Retroperitoneum See . Flow Interpretation Retroperitoneum core biopsy: - [id number] B cell population expressing kappa light chains. See comment. COMMENT: Findings are consistent with a B-cell lymphoma and the differential includes follicular lymphoma, Burkitt's lymphoma and other B-cell lymphoma. Selective cell loss can occur in large cell lymphomas. Correlation with morphology is essential. Efrain Salgado PA-C notified via secure messaging at 5:10 PM. The analysis is performed by multi-parameter flow cytometry. On CD45 versus dot plot histogram, thelymphoid population comprises approximately 62% of the total events, which contains a monotypic B cell population (51% of lymphocytes) that are medium to large in size based on forward light scattered properties. The monotypic B cells are positive for CD45, CD19, CD20, CD10, CD43, and FMC7 and kappa immunoglobulin light chain. They monotypic Bcells show equivocal CD5 and CD3 expression in a subset of cells and are negative for other markers performed in this study. The remaining cells in the gate are T cells and NK cells. The remaining events (43%) are granulocytic. High-Grade/Large B-Cell Lymphoma FISH Bone marrow, left posterior iliac crest, aspirate, biopsy, clot, touch imprints and peripheral blood: - Normocellular marrow with trilineage hematopoiesis. Negative for lymphoma. at 1517 Clinical History Lymphoma, rule out BM involvement Bone Marrow Aspirate Microscopic Findings Aspirate Adequacy: adequate. Core Touch Imprint Adequacy: adeqaute. Blasts: within normal limits. Myelopoiesis: full spectrum of maturation; no dysplasia identified. Erythropoiesis: full spectrum of maturation; no dysplasia identified. Megakaryocytes: unremarkable morphology. Lymphocytes: within normal limits. Plasma Cells: within normal limits. Iron Status No ringed sideroblasts. Bone Marrow Biopsy and Clot Microscopic Findings Core Biopsy Adequacy: Present with relatively small amount of marrow elements. Clot Section Adequacy: Small fragments of marrow elements. Marrow Cellularity: 50% normocellular. Cellular Composition: similar to aspirate smears. Myelopoiesis: adequate with normal morphology and distribution. Erythropoiesis: adequate with normal morphology and distribution. Megakaryocytes: adequate with normal morphology and distribution. Trabecular Bone: unremarkable. Other: no lymphoid aggregates, granulomas, or abnormal cell populations. Blasts: not increased. Lymphocytes: not increased. Plasma cells: not increased. Monocytic cells: not increased. Peripheral Blood Microscopic Findings CBC resulted date/time: 06/25/2023 0842 EDT. WBC: 7.06 K/uL, HGB: 12.1 g/dL, MCV: 88.2 fL, RDW: 12.5 %, PLT: 232 K/uL Red Blood Cells: normocytic/normochromic red blood cells. White Blood Cells: normal white blood cell morphology. Platelets: normal in number; normal platelet morphology. Immunostains and Special Stains Flow cytometry analysis of the bone marrow aspirate demonstrated no evidence of monotypic or abnormal T-cell population consistent with a benign lymphoid population (linked report [id number]). Bone Marrow Aspirate Differential Value % Reference Range % Blasts 1 0-3 Early myeloid precursors 13 11-15 Neutrophils and other late precursors 34 22-40 Eosinophils and precursors 1 1-5 Monocytes 5 0-2 Erythroid precursors 30 15-25 Lymphocytes 15 10-15 Plasma Cells 1 0-1 Peripheral Blood Differential Value % Reference Range % Neutrophils 50 40-75 Lymphocytes 31 18-42 Monocytes 16 1-11 Eosinophils 2 0-6 Metamyelocytes 1 <=0 Impression: Farhad Franco is a 32 year old male with BL (Burkitt lymphoma): (June 2023) Sporadic variant, associated with EBV infection (EBV DNA, QN PCR= 69129). Also, patient with remotehistory of immunosuppressive meds. NEGATIVE HIV. High risk (retroperitoneal abdominal mass, > 7cm, High LDH). [email or web address] Bulky disease (single mass >7 cm) Stage III (Retroperitoneal disease), with no bone marrow, or SPECIAL EDUCATION RESOURCE ROOM TEACHER involvement (LP x 2, Rare atypicallymphocytes W/small lymphocytes favor reactive lymphomonocytosis, flow:no evidence of clonal or aberrant cells) Retroperitoneal biopsy; IHC: Aggressive CD10+ B-cell lymphoma with EBV expression. Ki-67 = 80-90%. Flow cytometry: [id number] B cell population expressing kappa light chains. FISH: t(8:14). MYC/IgH/CEN8 t(8;14) Detected (82%), MYC (8q24) Rearrangement Detected (68%) (MYC chromosomal translocations +) S/P CAL 1002 Pre-phase: Cyclophosphamide 200 mg/m2 IV days 1-5 (06/26/23-06/30/23) Prednisone 60 mg/m2 PO days 1-7 IT MTX 12 mg (07/02/23, 07/22/23) On our initial visit, I had a very lengthy discussion with patient, and his mother about his current diagnosis, prognosis, treatment options. Patient has some degree of learning and cognitive disabilities, and his mother is supportive, and helping him. Most of the care is provided by his mother, who works from home as a wiring technician. Patient has 1 son, and he is not planning for anymore kids. He is aware of reproductive, fertility risk of chemotherapy. We discussed that Burkitts lymphoma is a highly aggressive B-cell lymphoma and the most rapidly proliferating human cancer. More than 90% of children and adolescents are cured with highly dose-intensive chemotherapy, whereas adults are more susceptible to the toxic effects of treatment, and prospective trials have shown that only 75 to 85% of adults have a long-term remission. We also discussed that nvolvement of the SPECIAL EDUCATION RESOURCE ROOM TEACHER occurs in up to 20% of cases ( but he was negative for SPECIAL EDUCATION RESOURCE ROOM TEACHER involvement), and the bone marrow is involved in 30 to 35% of cases ( and also he was negative for bone marrow involvement ). EBV is associated with 20 to 30% of cases of sporadic Burkitts lymphoma. Although front-line therapy is highly effective, nearly all cases of recurrent or refractory disease are fatal. Retrospective population-based studies of Burkitts lymphoma have shown that the incidence of treatment failure among adults may be as high as 35%. His case was discussed in our Hematology tumor board on 07/20/23. We discussed different treatment regimens including CODOX-M/IVAC, HYPER CVAD, and DA EPOCH-R. Considering the high toxicity of most of the chemo regimens requiring treatment interruption, hospitalization, as well as his significant past medical history as mentioned above, decision was made to continue his treatment with dose adjustedEPOCH-R, and IT methotrexate. Plan: PET-CT-2 on 08/12/23 reviewed, Rosa score 1. Significant decrease in size and resolution of retroperitoneal lymph node conglomerate. Plan to complete 6 cycles of his current chemotherapy with dose adjusted EPOCH-R First 2 cylces of EPOCH-R were with same dose level. C3 DI by 20%. His khurram ANC after cycle 3 was 0.47, so will keep same dose level as C3 Platelet count is totally normal at 140 K, hemoglobin up to 9.2, ANC is up to 12,000, okay to proceed with cycle 4 as scheduled on Wednesday 09/06 in [place]. His systemic chemotherapy, as well as IT methotrexate on day 1, day 5 of every cycle, will be managed between [place], and [facility]. He is scheduled with IR in [place] for IT methotrexate on day 1, day 5 of cycle 3, and will be scheduled in the future until he completes total of 6 cycles of dose adjusted EPOCH-R. He should get labs twice weekly during treatment, and dose of R EPOCH to be adjusted based on his ANC as following; Each new cycle should be delayed until ANC is >1000/microL and platelet count is >100,000/microL. Doses of etoposide, doxorubicin, and cyclophosphamide are adjusted based upon the khurram ANC and platelet counts: If khurram ANC ?500/microL, increase doses by 20% over preceding cycle. If ANC <500/microL on one or two measurements, doses remain the same as preceding cycle. If ANC <500 on ?3 measurements or platelets <25,000/microL on one measurement, doses reduced by 20% from preceding cycle. Doxorubicin and etoposide doses are not reduced below starting dose. I highly instructed patient to be very well-hydrated and drink water about 2 to 3 L a day while he is receiving Cytoxan. Also will schedule him for IV fluids. Continue supportive medications as above. OK to stop Levaquin, his ANC is 12,000. LP x 2 did not show evidence of SPECIAL EDUC[employer] RESOURCE ROOM TEACHER involvement. So plan is to proceed with IT methotrexate on day1, day 5 of every cycle from cycle 3 to cycle 6. Currently his pain is well-controlled, he is following with palliative. Surveillance upon complete response (after 6 cycles): CT C/A/P W contrast no more often than every 6 mo for 2 y after completion of treatment, then only as clinically indicated. No orders of the defined types were placed in this encounter. Check-out note: RTC on 09/06 to [place] for C4D1 DA EPOCH-R (Then through the rest of the week between [facility] and [place]) Need IT MTX on D1 and D5 of each cycle by IR in [place] Need bag change Q 48 hrs IVF three times weekly on week of chemo RTC on Wednesday 09/13 for G-CSF shot CBC/Diff, CMP, LDH, twice weekly RTC with AP weekly for toxicity visit Need to be seen by Neena prior to each chemo cycle This chart was completed in part utilizing [employer] Speech Voice Recognition Software. Grammatical errors, random word insertions, pronoun errors, and incomplete sentences are an occasional consequence of this system due to software limitations, ambient noise, and hardware issues. Any formal questions or concerns about the content, text, or information contained within the body of this dictation should be directly addressed to the provider for clarification. I spent a total time of 40 minutes on the date of service in preparation, delivery, and documentation of the care provided, excluding any time spent in the performance of separately billed services. * Tegan Burleson LPN - 09/04/2023 11:12 AM EDT Vitals: 09/04/23 1111 Temp: 36.9 C (98.4 F) Pulse: 73 Resp: 16 SpO2: 96% BP: 113/71 Exam rm 7, CART 1 documented in this encounter Plan of Treatment Upcoming Encounters Date Type Department Care Team (Late st Contact Info) Description 09/14/2023 8:00 AM EDT Immunization/Injection Hematology/Oncology Treatment, [facility] [address] [place] [address] [facility], [facility] [address] [facility] [place] [address] 09/17/2023 10:30 AM EDT Laboratory Laboratory, [address] [place] [address] [facility], Lab [address] [place] [address] 09/17/2023 11:30 AM EDT Office Visit Hematology/Oncology, [address] [place] [address] Ritika Godfrey CRNP [address] [place] [address] 09/17/2023 12:00 PM EDT Hem/Onc Treatment Hematology/Oncology Treatment, [address] [place] [address] [facility], Chair9 Hem Onc [address] [place] [address], [place] [address] 09/18/2023 10:00 AM EDT Laboratory Laboratory, [address] [place] [address] [facility], Lab [address] [place] [address] 09/18/2023 11:30 AM EDT Hem/Onc Treatment Hematology/Oncology Treatment, [address], [place] [address] [facility], Chair5 Hem Onc [address] [place] [address], [place] [address] 09/21/2023 9:10 AM EDT Laboratory Laboratory [place] [address] [place] [address] [place], [facility] [address] [place] [address] 09/25/2023 10:30 AM EDT Laboratory Laboratory, [address] [address] [facility], Lab [address] [place] [address] 09/25/2023 11:30 AM EDT Telemedicine Hematology/Oncology, [address] [address] Mike Chaudhary MD [facility] [place] [address] Cart, Telemed [facility] Hem Onc Clinic [address] [place] [address] 09/25/2023 2:40 PM EDT Office Visit Rheumatology [place] [id number] [place] [address] Oliver Zhang MD [address] [place] [address], [place] [address] 09/28/2023 2:00 PM EDT Appointment Radiology, [address] [phone] 09/30/2023 11:00 AM EDT Hem/Onc Treatment Hematology/Oncology Treatment, [address] [place] [address] [facility], Chair2 Hem Onc [address] [place] [address] [place] [address] 10/02/2023 2:00 PM EDT Appointment Radiology, [address] [address] 10/05/2023 7:10 AM EDT Laboratory Laboratory, [address], [place] [address] [facility], Lab [address] [place] [address], [place] [address] 10/05/2023 8:00 AM EDT Immunization/Injection Hematology/Oncology Treatment, [address], [place] [address] [facility], Chair2 Hem Onc [address] [place] [address], [place] [address] 10/08/2023 12:00 PM EDT Laboratory Laboratory, [address], [place] [address] [facility], Lab [address] [place] [address], [place] [address] 10/08/2023 1:00 PM EDT Office Visit Hematology/Oncology, [address], [place] [address] Lakeshia Stone CRNP [address] [place] [address], [place] [address] 02/19/2024 12:00 PM EST Office Visit [facility] [address], [place] [address] [place] [address] Kayla Reeder DO [address] [place] [address] Health Maintenance Due Date Last Done Comments COVID-19 Vaccine (#1) 1995 Influenza Vaccine (FLU shot) (#1) 2023 11/17/2016, 11/17/2016, 11/30/2015, Additional history exists Depression Screening 07/07/2024 07/08/2023, 06/11/19 24 Albumin/Creatinine Ratio Discontinued 08/02/2021 documented as of this encounter Medical Devices Implanted Type Area Mailroom Supervisor Device Identifier Shelf Expiration Date Model / Serial / Lot Mediport Pwr Mri 8fr [id number] - [id number] Implanted:Qty : 1 on 07/17/2023 by Medhat Angel MD at OR [facility] Right: Chest CR BARD : PERIPHERAL VASCULAR 07/16/2024 [id number] / / [id number] Port Implant W8f Poly Cath - [id number] Implanted:Qty : 1 on 07/17/2023 by Medhat Angel MD at OR [facility] CR BARD : PERIPHERAL VASCULAR [id number] 07/16/2024 [id number] / / [id number] documented as of this encounter Visit Diagnoses Diagnosis 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)- Primary Burkitt's tumor or lymphoma of intra-abdominal lymph nodes 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) Other malignant lymphomas of intra-abdominal lymph nodes Encounter to discuss test results Other specified counseling Encounter for antineoplastic chemotherapy Encounter to discuss treatment options Other specified counseling Encounter for medication monitoring Encounter for therapeutic drug monitoring Generalized weakness Other malaise and fatigue documented in this encounter Advance Directives * Full Code [...] on File Name Relationship Healthcare Agent [facility] Trixie Le [facility] Repr esentative (appointed verbally by patient or by statute hierarchy) [email or web address] Care Teams Thermometer Maker Relationship Specialty Start Date End Date Kayla Reeder DO [address] [place] [address] PCP - General Family Medicine 06/11/23 documented as of this encounter
--- OUTSIDE RECORDS SUMMARY | 2023-09-18 21:15 | External Medical Summary | Summary of Care ---
Author Name Unknown Organization [facility] Address [address] [place] [address] Phone [phone] Care Team Providers Care Creosoting Engineer Name Role Phone Kayla Reeder DO Primary Care Provider +1- [phone] Encounter Details Date Type Department Care Team (Latest Contact Info) Description 09/11/2023 1:48 PM EDT - 09/11/2023 11:59 PM EDT Hospital Encounter Radiology, [facility] [address] [place] [address] Arrived Discharge Disposition: Home - Self Care Allergies No known active allergiesdocumented as of this encounter (statuses as of 09/12/2023) Medications Medication Sig Dispensed Refills Start Date [...] as of this encounter (statuses as of 09/12/2023) Active Problems Patient Care Coordination No te Formatting of this note migh t be different from the original. Patient receiving home chemo infusion and gets disconnected in the [facility]. Problem Noted Date Diagnosed Date [...] as of this encounter (statuses as of 09/12/2023) Resolved Problems Problem Noted Date Diagnosed Date [...] as of this encounter (statuses as of 09/12/2023) Immunizations Name Administration Dates Next Due DT [...] Sign Reading Time Taken Comments Blood Pressure 136/76 09/11/2023 3:45 PM EDT Pulse 77 09/11/2023 3:45 PM EDT Temperature 36.4 C (97.5 F) 09/11/2023 3:10 PM ED T Respiratory Rate 18 09/11/2023 3:45 PM EDT Oxygen Saturation 97% 09/11/2023 3:45 PM EDT Inhaled Oxygen Concentration - - Weight - [...] Team (Late st Contact Info) Description 09/14/2023 7:00 AM EDT Laboratory Laboratory, [address] [place] [address] [facility], Lab [address] [facility] [place] [address] 09/14/2023 8:00 AM EDT Immunization/Injection Hematology/Oncology Treatment, [address], [place] [address] [facility], Chair1 Hem Onc [address] [place] [address] [place] [address] 09/17/2023 10:30 AM EDT Laboratory Laboratory, [address], [place] [address] [facility], Lab [address] [place] [address], [place] [address] 09/17/2023 11:30 AM EDT Office Visit Hematology/Oncology, [address], [place] [address] Ritika Godfrey CRNP [address] [place] [address], [place] [address] 09/17/2023 12:00 PM EDT Hem/Onc Treatment Hematology/Oncology Treatment, [address], [place] [address] [facility], Chair9 Hem Onc [address] [place] [address], [place] [address] 09/18/2023 10:00 AM EDT Laboratory Laboratory, [address], [place] [address] [facility], Lab [address] [place] [address], [place] [address] 09/18/2023 11:30 AM EDT Hem/Onc Treatment Hematology/Oncology Treatment, [address], [place] [address] [facility], Chair5 Hem Onc [address] [place] [address] 09/21/2023 9:10 AM EDT Laboratory Laboratory [address], [place] [address] [place] [address] [place], Lab [address] [place] [address] 09/25/2023 10:30 AM EDT Laboratory Laboratory, [address] [id number] [facility], [address] [address] 09/25/2023 11:30 AM EDT Telemedicine Hematology/Oncology, [address] [address] Mike Chaudhary MD [address] [place], [place] [id number] Herve Hurtadoed [facility] Hem Onc Clinic [address] [place] [address] 09/25/2023 2:40 PM EDT Office Visit Rheumatology [address] [place] [address] Oliver Zhang MD [address] [place] [address] [place] [address] 09/28/2023 2:00 PM EDT Appointment Radiology, [facility] [address] [place] [address] 09/30/2023 11:00 AM EDT Hem/Onc Treatment Hematology/Oncology Treatment, [address] [address] [facility], Chair2 Hem Onc [address] [place] [address] 10/02/2023 2:00 PM EDT Appointment Radiology, [address] [facility] [address] 10/05/2023 7:10 AM EDT Laboratory Laboratory, [address] [place] [address] [facility], Lab [address] [place] [address] 10/05/2023 8:00 AM EDT Immunization/Injection Hematology/[address]cology Treatment, [address] [address] [facility], Chair2 Hem Onc [address] [place] [address] 10/08/2023 12:00 PM EDT Laboratory Laboratory, [address] [address] [facility], Lab [address] [place] [address] 10/08/2023 1:00 PM EDT Office Visit Hematology/Oncology, [address] [address] Lakeshia Stone CRNP [address] [place] [address] [place] [address] 02/19/2024 12:00 PM EST Office Visit [facility] [address], [place] [address] [place] [address] Kayla Reeder DO [address] [place] [address] Health Maintenance Due Date Last Done Comments COVID-19 Vaccine (#1) 1995 Influenza Vaccine (FLU shot) (#1) 2023 11/17/2016, 11/17/2016, 11/30/2015, Additional history exists Depression Screening 07/07/2024 07/08/2023, 06/11/19 24 Albumin/Creatinine Ratio Discontinued 08/02/2021 documented as of this encounter Medical Devices Implanted Type Area Reworker Device Identifier Shelf Expiration Date Model / Serial / Lot Mediport Pwr Mri 8fr [id number] - [id number] Implanted:Qty : 1 on 07/17/2023 by Medhat nAgel MD at OR [facility] Right: Chest CR BARD : PERIPHERAL VASCULAR 07/16/2024 [id number] / / [id number] Port Implant W8f Poly Cath - [id number] Implanted:Qty : 1 on 07/17/2023 by Medhat Angel MD at OR [facility] CR BARD : PERIPHERAL VASCULAR [id number] 07/16/2024 [id number] / / [id number] documented as of this encounter Procedures Procedure Name Priority Date/Time Associated Diagnosis Comments FLUORO GUIDED CHEMO ADMIN INTO GLUER STAT 09/11/2023 3:14 PM EDT 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 I have personally reviewed this examination and agree with the resident/fellow physician's interpretation. Narrative 09/11/2023 5:27 PM EDT EXAM FLUORO GUIDED CHEMO ADMIN INTO GLUER-09/11/2023 3:14 pm HISTORY IT methotrexate COMPARISON Lumbar puncture and chemotherapy administration 09/07/2023. TECHNIQUE PHYSICIANS: Dr. Raegan Marks (Attending); Dr. Correa (Resident) TIME OUT, PATIENT IDENTIFICATION, AND CONSENT: A time out procedure was performed at 2:50 p.m. in the presence of RT Michael. The patient's identification was verified. The risks, benefits, and alternatives to the procedure were discussed with the patient who then gave both written and verbal consent. Informed consent with agreement of procedure, site, and position was obtained. Verbalized procedure matches the written consent. All necessary equipment was available prior to the procedure. PROCEDURE: The patient was placed prone on the fluoroscopy table and under intermittent fluoroscopic guidance the right L4-5 interlaminar space was localized. The patient was prepped and draped in the usual sterile fashion. 1% percent lidocaine was injected into the skin at the access site for local anesthesia. A 22 gauge 3.5 in spinal needle and stylet were advanced into the thecal sac under intermittent fluoroscopic guidance. There was spontaneous slow flow of clear CSF. ADMINISTRATION OF CHEMOTHERAPY: Methotrexate sodium (PF) 50 MG/2ML 12 mg in sodium chloride 0.9 % 5 mL intrathecal was slowly administered. The stylet was replaced and the needle was removed. There were no immediate post procedure complications. ATTESTATION: Dr. Marks was present throughout the procedure without overlapping cases. FINDINGS Spot fluoroscopic images of the lumbar spine demonstrate spinal needle in proper position over the thecal sac. Procedure Note Raegan Marks MD - 09/11/2023 EXAM FLUORO GUIDED CHEMO ADMIN INTO GLUER-09/11/2023 3:14 pm HISTORY IT methotrexate COMPARISON Lumbar puncture and chemotherapy administration 09/07/2023. TECHNIQUE PHYSICIANS: Dr. Raegan Marks (Attending); Dr. Correa (Resident) TIME OUT, PATIENT IDENTIFICATION, AND CONSENT: A time out procedure wasperformed at 2:50 p.m. in the presence of RT Michael. The patient'sidentification was verified. The risks, benefits, and alternatives to theprocedure were discussed with the patient who then gave both written andverbal consent. Informed consent with agreement of procedure, site, andposition was obtained. Verbalized procedure matches the written consent.All necessary equipment was available prior to the procedure. PROCEDURE: The patient was placed prone on the fluoroscopy table and underintermittent fluoroscopic guidance the right L4-5 interlaminar space waslocalized. The patient was prepped and draped in the usual sterilefashion. 1% percent lidocaine was injected into the skin at the accesssite for local anesthesia. A 22 gauge 3.5 in spinal needle and stylet wereadvanced into the thecal sac under intermittent fluoroscopic guidance.There was spontaneous slow flow of clear CSF. ADMINISTRATION OF CHEMOTHERAPY: Methotrexate sodium (PF) 50 MG/2ML 12 mgin sodium chloride 0.9 % 5 mL intrathecal was slowly administered. The stylet was replaced and the needle was removed. There were noimmediate post procedure complications. ATTESTATION: Dr. Marks was present throughout the procedure withoutoverlapping cases. FINDINGS Spot fluoroscopic images of the lumbar spine demonstrate spinal needle inproper position over the thecal sac. IMPRESSION IMPRESSION Successful fluoroscopy guided lumbar puncture and intrathecaladministration of chemotherapy without immediate complications. I have personally reviewed this examination and agree with the resident/fellow physician's interpretation. 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)- Primary Burkitt's tumor or lymphoma of intra-abdominal lymph nodes documented in this encounter Administered Medications Inactive Administered Medications - up to 3 most recent administrations Medication Order MAR Action Action Date Dose Rate Site METHOtrexate Sodium (PF) 50 MG/2ML 12 mg in sodium chloride 0.9 % 5 mL intrathecal 12 mg, Intrathecal, Administer over 3 Minutes, FOR INTRATHECAL ADMINISTRATION Protect from Light!, ONCE, 1 dose, On Thu09/11/23 at 1527 Given 09/11/2023 2:34 PM EDT 12 mg documented in this encounter Advance Directives * [...] Relationship Healthcare Agent Relationshi p Communication Trixie D [facility] Repr esentative (appointed verbally by patient or by statute hierarchy) [email or web address] Care Teams Creosoting Engineer Relationship Specialty Start Date End Date Kayla Reeder DO [address] [facility] [place] [address] PCP - General Family Medicine 06/11/23 documented as of this encounter
--- OUTSIDE RECORDS SUMMARY | 2023-09-18 21:15 | External Medical Summary ---
Author Name Unknown Address Unknown Organization K1F:[facility] - [address] [place] [address] Laboratory Report Ordering Provider Test Date Status MATTI BARAJAS 09/14/2023 12:15:37 Final Observation Date Value Abnormality Reference (Units ) Status WBC, Total 09/14/2023 12:15:37 2.95 Below low normal 4.00-10.80 (K/uL) Final RBC 09/14/2023 12:15:37 2.24 4.50-5.25 (M/uL) Final Hemoglobin 09/14/2023 12:15:37 7.0 Below low normal 14.0-16.8 (g/dL) Final HCT 09/14/2023 12:15:37 21.5 Below low normal 40.0-48.4 (%) Final MCV 09/14/2023 12:15:37 96.0 82.0-99.5 (fL) Final MCH 09/14/2023 12:15:37 31.3 27.0-34.0 (pg) Final MCHC 09/14/2023 12:15:37 32.6 32.0-36.0 (g/dL) Final RDW 09/14/2023 12:15:37 19.2 11.5-15.5 (%) Final Platelets 09/14/2023 12:15:37 103 Below low normal 140-400 (K/uL) Final MPV 09/14/2023 12:15:37 9.4 6.6-11.1 (fL) Final Nucleated erythrocytes/100 leukocytes [Ratio] in Blood by Automated count 09/14/2023 12:15:37 0 <=0 (/100 WBCs) Final Performing Location [facility] - [address] [place] [address]
--- OUTSIDE RECORDS SUMMARY | 2023-09-18 21:15 | External Medical Summary | Summary of Care ---
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) Procedures IN DOXORUBIC HCL 10 MG VL CHEMO IN VINCRISTINE SULFATE 1 MG INJ IN FOSAPREPITANT INJECTION IN ETOPOSIDE 10 MG INJ IN INJECTION, RITUXIMAB-PVVR, BIOSIMILAR, (RUXIENCE), 10 MG IN INJ, NYVEPRIA IN INJ, CYCLOPHOSPHAMIDE, NOS Elvis Villalobos [facility] [address] [facility] [place] [address] [facility] [address] [facility] [place] [address] Referral ID Status Reason Start Date Expiration Date V isits Requested Visits Authorized [id number] Authorized 07/23/2023 01/22/2024 999 999 Encounter Details Date Type Department Care Team ([facility] st Contact Info) Description 09/14/2023 8:00 AM EDT Immunization/ Injection Hematology/Oncology Treatment, [facility] [address] [place] [address] 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 Problem Noted Date Diagnosed Date Antineoplastic [...] No 07/08/2023 Does the household have a [facility] source of income? (Household - for ages [...] (15 years old or older) No 07/13/19 24 Cognitive Status Response Date of Assessm ent Because of a physical, menta l, or emotional condition, do you have serious difficulty concentrating, remembering, or making decisions? (5 years old or older) No 07/13/2023 documented as of this encounter Nursing Notes * Radha López LPN - 09/14/2023 12:50 PM EDT [place] 3 Nyvepria given SQ left arm Patient left IVC by ambulating. Accompanied by Family. Voiced no complaints. Radha López LPN 09/14/2023 12:50 PM documented in this encounter Plan of Treatment Upcoming Encounters Date Type Department Care Team (Late st Contact Info) Description 09/17/2023 10:30 AM EDT Laboratory Laboratory, [address] [place] [address] [facility], Lab [address] [place], [place] [address] [address] 09/17/2023 11:30 AM EDT Office Visit Hematology/Oncology, [address] [place] [address] Ritika Godfrey CRNP [address] [place], [place] [address] [address] 09/17/2023 12:00 PM EDT Hem/Onc Treatment Hematology/Oncology Treatment, [address] [facility] [place] [address] [facility], Chair9 Hem Onc [address] [place], [place] [address] [address] 09/21/2023 9:10 AM EDT Laboratory Laboratory [place] [address] [place] [address] [address] [place] [address] 09/25/2023 10:30 AM EDT Laboratory Laboratory, [address] [address] [facility], Lab [address] [place] [address] 09/25/2023 11:30 AM EDT Telemedicine Hematology/Oncology, [address] [address] Mike Chaudhary MD [facility] [address] Cart, Telemed [facility] Hem Onc Clinic [address] [place] [address] 09/25/2023 2:40 PM EDT Office Visit Rheumatology [address] [address] Oliver Zhang MD [address] [place] [address], [place] [address] 09/28/2023 2:00 PM EDT Appointment Radiology, [address] [phone] 09/30/2023 11:00 AM EDT Hem/Onc Treatment Hematology/Oncology Treatment, [address] [address] [facility], Chair2 Hem Onc [address] [place] [address] 10/02/2023 2:00 PM EDT Appointment Radiology, [address] [phone] 10/05/2023 7:10 AM EDT Laboratory Laboratory, [address] [place] [address] [facility], Lab [address] [place] [address] 10/05/2023 8:00 AM EDT Immunization/Injection Hematology/Oncology Treatment, [address] [place] [address] [facility], Chair2 Hem Onc [address] [place] [address], [place] [address] 10/08/2023 12:00 PM EDT Laboratory Laboratory, [address] [place] [address] [facility], Lab [address] [place] [address] 10/08/2023 1:00 PM EDT Office Visit Hematology/Oncology, [address] [place] [address] Lakeshia Stone CRNP [address] [place] [address], [place] [address] 02/19/2024 12:00 PM EST Office Visit [facility] [address], [place] [address] [place] [address] Kayla Reeder DO [address] [place] [address] Health Maintenance Due Date Last Done Comments COVID-19 Vaccine (#1) 1995 Influenza Vaccine (FLU shot) (#1) 2023 11/17/2016, 11/17/2016, 11/30/2015, Additional history exists Depression Screening 07/07/2024 07/08/2023, 06/11/19 24 Albumin/Creatinine Ratio Discontinued 08/02/2021 documented as of this encounter Medical Devices Implanted Type Area Flower Picker Device Identifier Shelf Expiration Date Model / Serial / Lot Mediport Pwr Mri 8fr [id number] - [id number] Implanted:Qty : 1 on 07/17/2023 by Medhat Angel MD at OR [facility] Right: Chest CR BARD : PERIPHERAL VASCULAR 07/16/2024 [id number] / / [id number] Port Implant W8f Poly Cath - [id number] Implanted:Qty : 1 on 07/17/2023 by Medhat Angel MD at OR [facility] CR BARD : PERIPHERAL VASCULAR [id number] 07/16/2024 [id number] / / [id number] documented as of this encounter Visit Diagnoses Diagnosis Encounter for antineoplastic chemotherapy- Primary 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) Burkitt's tumor or lymphoma of intra-abdominal lymph nodes documented in this encounter Administered Medications Inactive Administered Medications - up to 3 most recent administrations Medication Order MAR Action Action Date Dose Rate Site Pegfilgrastim-apgf (Nyvepria) inj 6 mg 6 mg, Subcutaneous, ONCE, On Thu09/14/23 at 1300, For 1 dose Given 09/14/2023 12:46 PM EDT 6 mg Arm Left Upper documented in this encounter Advance Directives * [...] Agents on File Name Relationship Healthcare Agent [facility] p Communication Trixie Le [facility] Repr esentative (appointed verbally by patient or by statute hierarchy) [email or web address] Care Teams Clinical Outcomes Manager Relationship Specialty Start Date End Date Kayla Reeder DO [address] [facility] [place] [address] PCP - General Family Medicine 06/11/23 documented as of this encounter
--- OUTSIDE RECORDS SUMMARY | 2023-09-18 21:15 | External Medical Summary | Summary of Care ---
Author Name Unknown Organization [facility] Address [address] [place] [address] Phone [phone] Care Team Providers Care Inking Machine Tender Name Role Phone VarinderKayla Primary Care Provider +1- [phone] Reason for Visit * Reason Onset Date Comments Appointment 09/14/2023 Encounter Details Date Type Department Care Team (Late st Contact Info) Description 09/14/2023 Telephone Hematology/Oncology Treatment, [facility] [address] [place] [address] Mike Chaudhary MD [address] [place] [address] Appointment Allergies No known active [...] chemo infusion and gets disconnected in the [facility]. Problem Noted Date Diagnosed Date Antineoplastic [...] Encounter - Shannon Kendall RN - 09/14/2023 11:25 AM EDT Trixie calling back. She took off work to get Farhad and is bringing him in. Will be here at 1230. Let the treatment room and schedulers know of this. * Telephone Encounter - Shannon Kendall RN [...] Description 09/17/2023 10:30 AM EDT Laboratory Laboratory, [address] [phone] [facility], Lab [address] [place] [address] 09/17/2023 11:30 AM EDT Office Visit Hematology/Oncology, [address] [place] [address] Ritika Godfrey CRNP [address] [place], [place] [address] [address] 09/17/2023 12:00 PM EDT Hem/Onc Treatment Hematology/Oncology Treatment, [address] [address] [facility], Chair9 Hem Onc [address] [place], [place] [address] 09/18/2023 10:00 AM EDT Laboratory Laboratory, [address] [place] [address] [facility], Lab [address] [place] [address] 09/18/2023 11:30 AM EDT Hem/Onc Treatment Hematology/Oncology Treatment, [address] [address] [facility], Chair5 Hem Onc [address] [place] [address] 09/21/2023 9:10 AM EDT Laboratory Laboratory [address], [place] [address] [place] [address] [place], [address] [place] [address] 09/25/2023 10:30 AM EDT Laboratory Laboratory, [address] [address] [facility], Lab [address] [place] [address] 09/25/2023 11:30 AM EDT Telemedicine Hematology/Oncology, [address] [address] Mike Chaudhary MD [address] [place] [address] Cart, Telemed [facility] Hem Onc Clinic [address] [place] [address] 09/25/2023 2:40 PM EDT Office Visit Rheumatology [place] [phone] [place] [place] [address] Oliver Zhang MD [address] [facility] [place], [place] [address] 09/28/2023 2:00 PM EDT Appointment Radiology, [address], [place] [address] 09/30/2023 11:00 AM EDT Hem/Onc Treatment Hematology/Oncology Treatment, [address] [place] [address] [facility], Chair2 Hem Onc [address] [place] [address], [place] [address] 10/02/2023 2:00 PM EDT Appointment Radiology, [address] [place] [address] 10/05/2023 7:10 AM EDT Laboratory Laboratory, [address] [place] [address] [facility], Lab [address] [place] [address] 10/05/2023 8:00 AM EDT Immunization/Injection Hematology/Oncology Treatment, [address], [place] [address] [facility], Chair2 Hem Onc [address] [place] [address], [place] [address] 10/08/2023 12:00 PM EDT Laboratory Laboratory, [address] [place] [address] [facility], Lab [address] [place] [address], [place] [address] 10/08/2023 1:00 PM EDT Office Visit Hematology/Oncology, [address], [place] [address] Lakeshia Stone CRNP [address] [place], [place] [address] [address] 02/19/2024 12:00 PM EST Office Visit Family [facility] [address], [place] [address] [place] [phone] Kayla Reeder DO [address] [place] [address] Health Maintenance Due Date Last Done Comments COVID-19 Vaccine (#1) 1993 Influenza Vaccine (FLU shot) (#1) 2023 11/17/2016, 11/17/2016, 11/30/2015, Additional history exists Depression Screening 07/07/2024 07/08/2023, 06/11/19 24 Albumin/Creatinine Ratio Discontinued 08/02/2021 documented as of this encounter Medical Devices Implanted Type Area Fender Finisher Device Identifier Shelf Expiration Date Model / Serial / Lot Mediport Pwr Mri 8fr [id number] - [id number] Implanted:Qty : 1 on 07/17/2023 by Medhat Angel MD at OR [facility] Right: Chest CR BARD : PERIPHERAL VASCULAR 07/16/2024 [id number] / / [id number] Port Implant W8f Poly Cath - [id number] Implanted:Qty : 1 on 07/17/2023 by Medhat Angel MD at OR [facility] CR BARD : PERIPHERAL VASCULAR [id number] 07/16/2024 [id number] / / [id number] documented as of this encounter Advance Directives [...] Agents on File Name Relationship Healthcare Agent [facility] p Communication Trixie [facility] Repr esentative (appointed verbally by patient or by statute hierarchy) [email or web address] Care Teams Inking Machine Tender Relationship Specialty Start Date End Date Kayla Reeder DO [address] [facility] [place] [address] PCP - General Family Medicine 06/11/23 documented as of this encounter
--- OUTSIDE RECORDS SUMMARY | 2023-09-18 21:15 | External Medical Summary | Summary of Care ---
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 Problem Noted Date Diagnosed Date Antineoplastic [...] Description 09/17/2023 10:30 AM EDT Laboratory Laboratory, [address] [place] [address] [facility], Lab [address] [place], [place] [address]ER[place]rian [address] 09/17/2023 11:30 AM EDT Office Visit Hematology/Oncology, [address] [place] [address] Ritika Godfrey CRNP [address] [place] [address] [place] [address] 09/17/2023 12:00 PM EDT Hem/Onc Treatment Hematology/Oncology Treatment, [address], [place] [address] [facility], Chair9 Hem Onc [address] [place] [address], [place] [address] 09/18/2023 10:00 AM EDT Laboratory Laboratory, [address], [place] [phone] [facility], Lab [address] [place] [address], [place] [address] 09/18/2023 11:30 AM EDT Hem/Onc Treatment Hematology/Oncology Treatment, [address], [place] [address] [facility], Chair5 Hem Onc [address] [place] [address], [place] [address] 09/21/2023 9:10 AM EDT Laboratory Laboratory [facility], [place] [address] [facility] [place] [phone] [place], Lab [facility] [address] [facility] [place] [address] 09/25/2023 10:30 AM EDT Laboratory Laboratory, [address] [place] [phone] [facility], Lab [address] [place] [address], [place] [address] 09/25/2023 11:30 AM EDT Telemedicine Hematology/Oncology, [address] [place] [address] Mike Chaudhary MD [address] [facility] [place] [place] [address] Cart, Telemed [facility] Hem Onc Clinic [address] [place] [address] 09/25/2023 2:40 PM EDT Office Visit Rheumatology [address] [place], [place] [address] Oliver Zhang MD [address] [place] [address] [place], [place] [address] 09/28/2023 2:00 PM EDT Appointment Radiology, [address] [address] 09/30/2023 11:00 AM EDT Hem/Onc Treatment Hematology/Oncology Treatment, [address] [address] [facility], Chair2 Hem Onc [address] [place] [address], [place] [address] 10/02/2023 2:00 PM EDT Appointment Radiology, [address] [place] [address] 10/05/2023 7:10 AM EDT Laboratory Laboratory, [address] [place] [phone] [facility], Lab [address] [place] [address] [place] [address] 10/05/2023 8:00 AM EDT Immunization/Injection Hematology/Oncology Treatment, [address] [place] [address] [facility], Chair2 Hem Onc 400 [place] [address] 10/08/2023 12:00 PM EDT Laboratory Laboratory, [facility] [address] [place] [address] [facility], Lab [address] [place] [address] 10/08/2023 1:00 PM EDT Office Visit Hematology/Oncology, [address] [place] [address] Lakeshia Stone CRNP [address] [facility], [place] [address] 02/19/2024 12:00 PM EST Office Visit [facility] [address], [place] [address] [place] [address] Kayla Reeder, [address] [place] [address] Pending Results Name Type Priority Associated Diagnoses Date /Time URIC ACID Lab STAT 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) 09/14/2023 12:15 PM EDT LD Lab STAT 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) 09/14/2023 12:15 PM EDT COMPREHENSIVE METABOLIC PANEL Lab STAT 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) 09/14/2023 12:15 PM EDT Health Maintenance Due Date Last Done Comments COVID-19 Vaccine (#1) 1993 Influenza Vaccine (FLU shot) (#1) 2023 11/17/2016, 11/17/2016, 11/30/2015, Additional history exists Depression Screening 07/07/2024 07/08/2023, 06/11/19 24 Albumin/Creatinine Ratio Discontinued 08/02/2021 documented as of this encounter Medical Devices Implanted Type Area Carbon Capture Power Plant Manager Device Identifier Shelf Expiration Date Model / Serial / Lot Tee Pwr Mri 8fr [id number] - [id number] Implanted:Qty : 1 on 07/17/2023 by Medhat Angel MD at OR [facility] Right: Chest CR BARD : PERIPHERAL VASCULAR 07/16/2024 [id number] / / [id number] Port Implant W8f Poly Cath - [id number] Implanted:Qty : 1 on 07/17/2023 by Medhat Angel MD at OR [facility] CR BARD : PERIPHERAL VASCULAR [id number] 07/16/2024 [id number] / / [id number] documented as of this encounter Procedures Procedure Name Priority Date/Time Associated Diagnosis Comments DIFFERENTIAL, AUTOMATED STAT 09/14/2023 12:15 PM EDT 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) CBC STAT 09/14/2023 12:15 PM EDT 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) CBC STAT 09/14/2023 12:15 PM EDT 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) documented in this encounter Results * (ABNORMAL) DIFFERENTIAL, AUTOMATED (09/14/2023 12:15 PM EDT) WBC 2.95(L) 4.00 - 10.80 K/uL 09/14/2023 12:24 PM EDT LABORATORY [facility] Neutrophils % 87.4(H) 40.0 - 75.0 % 09/14/2023 12:24 PM EDT LABORATORY [facility] Lymphocytes % 10.2(L) 18.0 - 42.0 % 09/14/2023 12:24 PM EDT LABORATORY [facility] Monocytes % 0.3(L) 1.0 - 11.0 % 09/14/2023 12:24 PM EDT LABORATORY [facility] Eosinophils % 0.0 0.0 - 6.0 % 09/14/2023 12:24 PM EDT LABORATORY [facility] Basophils % 0.7 0.0 - 2.0 % 09/14/2023 12:24 PM EDT LABORATORY GL Immature Granulocytes % 1.4 0.0 - 2.0 % 09/14/2023 12:24 PM EDT LABORATORY GL Absolute Neutrophils 2.58 1.80 - 7.70 K/uL 09/14/2023 12:24 PM EDT LABORATORY GL Absolute Lymphocytes 0.30(L) 1.00 - 4.80 K/ul 09/14/2023 12:24 PM EDT LABORATORY GL Absolute Monocytes 0.01 0.00 - 1.10 K/uL 09/14/2023 12:24 PM EDT LABORATORY GL Absolute Eosinophils 0.00 0.00 - 0.70 K/uL 09/14/2023 12:24 PM EDT LABORATORY GL Absolute Basophils 0.02 0.00 - 0.20 K/uL 09/14/2023 12:24 PM EDT LABORATORY GL Absolute Immature Granulocytes 0.04 0.00 - 0.20 K/uL 09/14/2023 12:24 PM EDT LABORATORY GL Blood Venous blood specimen / Unknown Venipuncture / Unknown 09/14/2023 12:15 PM EDT 09/14/2023 12:15 PM EDT Mike Chaudhary MD LAB BLOOD O RDERABLES LABORATORY [facility] [address] [place] [address] * (ABNORMAL) CBC (09/14/2023 12:15 PM EDT) Pathologist [facility] WBC 2.95(L) 4.00 - 10.80 K/uL 09/14/2023 12:24 PM EDT LABORATORY GL RBC 2.24 4.50 - 5.25 M/uL 09/14/2023 12:24 PM EDT LABORATORY GL HGB 7.0(L) 14.0 - 16.8 g/dL 09/14/2023 12:24 PM EDT LABORATORY GL HCT 21.5(L) 40.0 - 48.4 % 09/14/2023 12:24 PM EDT LABORATORY GL MCV 96.0 82.0 - 99.5 fL 09/14/2023 12:24 PM EDT LABORATORY [facility] MCH 31.3 27.0 - 34.0 pg 09/14/2023 12:24 PM EDT LABORATORY [facility] MCHC 32.6 32.0 - 36.0 g/dL 09/14/2023 12:24 PM EDT LABORATORY [facility] RDW 19.2 11.5 - 15.5 % 09/14/2023 12:24 PM EDT LABORATORY [facility] PLT 103(L) 140 - 400 K/uL 09/14/2023 12:24 PM EDT LABORATORY [facility] MPV 9.4 6.6 - 11.1 fL 09/14/2023 12:24 PM EDT LABORATORY [facility] nRBCs 0 <=0 /100 WBCs 09/14/2023 12:24 PM EDT LABORATORY [facility] Blood Venous blood specimen / Unknown Venipuncture / Unknown 09/14/2023 12:15 PM EDT 09/14/2023 12:15 PM EDT Mike Chaudhary MD LAB BLOOD O RDERABLES LABORATORY [facility] [address] [place] [address] documented in this encounter Visit Diagnoses Diagnosis 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) Burkitt's tumor or lymphoma of intra-abdominal lymph nodes 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
--- OUTSIDE RECORDS SUMMARY | 2023-09-18 21:15 | External Medical Summary | Summary of Care ---
Author Name Unknown Organization [facility] Address [address] [place] [address] Phone [phone] Care Team Providers Care Developmental Therapist Name Role Phone ReederKayla Primary Care Provider +1- [phone] Reason for Visit * Reason Onset Date Comments Test Results 09/14/2023 Completed Encounter Details Date Type Department Care Team (Late st Contact Info) Description 09/14/2023 Telephone Hematology Oncology [facility] [address] [place] [address] Mike Chaudhary MD [address] [place] [address] Test Results (Completed) Allergies No [...] infusion and gets disconnected in the [facility]. 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 Chaudhary Treatment: DA-EPOCH Cycle 4 Patient [...] labs due on Day 11 Radha Grimm Case Management Associate III Hematology Oncology Oral Chemotherapy Clinic Medication Therapy Disease Management [facility] 09/14/2023 3:06 PM Time Spent on Encounter: < 5 minutes documented in this encounter Plan of Treatment Upcoming Encounters Date Type Department Care Team (Late st Contact Info) Description 09/17/2023 10:30 AM EDT Laboratory Laboratory, [address] [place] [address] [facility], Lab [address] [place], [place] [address] 09/17/2023 11:30 AM EDT Office Visit Hematology/Oncology, [address] [place] [address] Ritika Godfrey CRNP [address] [facility] [address] 09/17/2023 12:00 PM EDT Hem/Onc Treatment Hematology/Oncology Treatment, [address] [place] [address] [facility], Chair9 Hem Onc [address] [facility] [address] 09/21/2023 9:10 AM EDT Laboratory Laboratory [place], [place] [address] [place] [phone] [place]a [place] [address] [place] [address] 09/25/2023 10:30 AM EDT Laboratory Laboratory, [address] [address] [facility], Lab [address] [place] [address] 09/25/2023 11:30 AM EDT Telemedicine Hematology/Oncology, [address] [address] Mike Chaudhary MD [address] [place] [address] Cart, Telemed [facility] Hem Onc Clinic [address] [place] [phone] 09/25/2023 2:40 PM EDT Office Visit Rheumatology [address] [place] [address] Oliver Zhang MD [address] [place] [address], [place] [address] 09/28/2023 7:30 AM EDT Laboratory Laboratory Hem/Onc [address] [phone] [place], [address] [address] 09/28/2023 8:00 AM EDT Hem/Onc Treatment Hematology Oncology [address] [phone] [place], [facility] 14 Hem/Onc [address] [place] [id number] 09/28/2023 2:00 PM EDT Appointment Radiology, [address] [address] 09/30/2023 11:00 AM EDT Hem/Onc Treatment Hematology/Oncology Treatment, [address] [place] [address] [facility], Chair2 Hem Onc [address] [place] [address] 10/02/2023 9:00 AM EDT Laboratory Laboratory Hem/Onc [facility], [address] [address] [place], Lab [address] [address] 10/02/2023 10:00 AM EDT Hem/Onc Treatment Hematology Oncology [address] [address] [place], Chair 18 Hem/Onc [address] [place] [address] 10/02/2023 2:00 PM EDT Appointment Radiology, [address] [address] 10/05/2023 7:10 AM EDT Laboratory Laboratory, [address] [address] [facility], Lab [address] [place] [address] 10/05/2023 8:00 AM EDT Immunization/Injection Hematology/Oncology Treatment, [address] [place] [address] [facility], Chair2 Hem Onc [address] [place] [address] [place] [address] 10/08/2023 12:00 PM EDT Laboratory Laboratory, [address] [address] [facility], Lab [address] [facility] [address] 10/08/2023 1:00 PM EDT Office Visit Hematology/Oncology, [facility] [address] Lakeshia Stone CRNP [address] [facility] [address] 02/19/2024 12:00 PM EST [facility] Visit [facility] [address], [place] [address] [place] [phone] Kayla Reeder DO [address] [place] [address] Health Maintenance Due Date Last Done Comments COVID-19 Vaccine (#1) 1993 Influenza Vaccine (FLU shot) (#1) 2023 11/17/2016, 11/17/2016, 11/30/2015, Additional history exists Depression Screening 07/07/2024 07/08/2023, 06/11/19 24 Albumin/Creatinine Ratio Discontinued 08/02/2021 documented as of this encounter Medical Devices Implanted Type Area Antitank Assault Gunner Device Identifier Shelf Expiration Date Model / Serial / Lot Mediport Pwr Mri 8fr [id number] - [id number] Implanted:Qty : 1 on 07/17/2023 by Medhat Angel MD at OR [facility] Right: Chest CR BARD : PERIPHERAL VASCULAR 07/16/2024 [id number] / / [id number] Port Implant W8f Poly Cath - [id number] Implanted:Qty : 1 on 07/17/2023 by Medhat Angel MD at OR [facility] CR BARD : PERIPHERAL VASCULAR [id number] 07/16/2024 [id number] / / [id number] documented as of this encounter Advance Directives [...] Agents on File Name Relationship Healthcare Agent [facility] p Communication Trixie Le [facility] Repr esentative (appointed verbally by patient or by statute hierarchy) [email or web address] Care Teams Developmental Therapist Relationship Specialty Start Date End Date Kayla Reeder DO [address] [facility] ERNST [place] [phone] PCP - General Family Medicine 06/11/23 documented as of this encounter
--- OUTSIDE RECORDS SUMMARY | 2023-09-18 21:15 | External Medical Summary | Summary of Care ---
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)*; Seasonal allergies; Antineoplastic chemotherapy induced pancytopenia (HCC); Encounter for antineoplastic chemotherapy; 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 Every morning.. 30 Capsule 3 05/01/19 24 Active Pantoprazole Sodium 40 MG [...] of Breath or Cough. 18 g 1 06/09/19 24 Active Fluticasone-Salmet alex 250-50 MCG/ACT Inhalation Aerosol Powder Breath Activated (Advair Diskus)Indications :Chronic cough INHALE ONE PUFF BY MOUTH EVERY MORNING AND ONE PUFF BEFORE BEDTIME 60 Each 06/11/19 24 Active Sulfamethoxazole-T rimethoprim 400-80 MG Oral Tablet (Bactrim) Take 1 Tablet by mouth in the morning. 30 Tablet 1 07/08/19 24 Active Sennosides-Docusat e Sodium 8.6-50 MG Oral Tablet (Senokot-S) Take 2 Tablets by mouth in the morning and 2 Tablets in the evening. 60 Tablet 1 07/07/19 24 Active Naloxone HCl 4 MG/0.1ML [...] bedtime. 180 Tablet 3 08/28/19 24 Active Cetirizine HCl 10 MG Oral Tablet (ZyrTEC)Indication s:Seasonal allergies Take 1 Tablet by mouth in the morning. 30 Tablet 09/09/19 24 024 Active Loratadine 10 MG Oral Tablet (Claritin)Indicati [...] 2 Tablets before bedtime. 56 Tablet 08/22/19 024 Discontinued documented as of this encounter (statuses as of 09/11/2023) Active Problems Patient Care Coordination No te Formatting of this note migh t be different from the original. Patient receiving home chemo infusion and gets disconnected in the [facility]. Problem Noted Date Diagnosed Date Antineoplastic [...] as of this encounter (statuses as of 09/11/2023) Resolved Problems Problem Noted Date Diagnosed Date [...] as of this encounter (statuses as of 09/11/2023) Immunizations Name Administration Dates Next Due DT [...] No 07/08/2023 Does the household have a [facility] source of income? (Household - for ages [...] Sign Reading Time Taken Comments Blood Pressure 123/76 09/09/2023 10:38 AM EDT Pulse 81 09/09/2023 10:38 AM EDT Temperature 36.9 C (98.4 F) 09/09/2023 1 0:38 AM EDT Respiratory Rate - - Oxygen Saturation 100% 09/09/2023 10: 38 AM EDT Inhaled Oxygen Concentration - - Weight 110.3 kg (243 lb 1.6 oz) 024 10:38 AM EDT Height - - Body Mass Index 33.91 09/07/2023 7:53 AM EDT documented in this encounter Functional [...] as of this encounter Progress Notes * Lakeshia Stone CRNP - 09/09/2023 10:46 AM EDT Hematology/Oncology Outpatient Clinic note [facility], [address] [address] Name: Farhad Franco Date: 09/09/2023 CHIEF COMPLAINT: Farhad Franco is a 32 year old male patient of Dr. Mike Chaudhary here today for f/u visit today. From Patient chart confirmed with patient. From Dr. Mike Chaudhary note 09/04/2023. 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 Also, patient with remotehistory of immunosuppressive meds. NEGATIVE HIV. High risk (retroperitoneal abdominal mass, > 7cm, High LDH). [email or web address]/[email or web address] Bulky disease (single mass >7 cm) Stage III (Retroperitoneal disease), with no bone marrow, or IT CONSULTING MANAGER involvement (LP x 2, Rare atypicallymphocytes W/small lymphocytes favor reactive lymphomonocytosis, flow:no evidence of clonal or aberrant cells) Retroperitoneal biopsy; IHC: Aggressive CD10+ B-cell lymphoma with EBV expression. Ki-67 = 80-90%. Flow cytometry: AM95-sjfclhlq B cell population expressing kappa light chains. FISH: t(8:14). 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) 06/25/2023 Initial Diagnosis B-cell lymphoma of intra-abdominal lymph nodes (HCC) 06/26/2023 - 07/09/2023 Chemotherapy CALGB 53300 Pre-Phase ONLY (1 Cycle/14 Days) [id number] 07/01/2023 - 07/01/2023 Chemotherapy OP CHOP-R every 21 days (Lymphoma) [id number] 07/02/2023 - 07/09/2023 Chemotherapy IP DA-EPOCH every 21 days (Lymphoma) [id number] 07/02/2023 - Supportive Therapy SCP - INTRATHECAL CHEMOTHERAPY (HEMATOLOGY) [id number] Plan Provider: Yaz Molina MD Treatment goal: Supportive Line of treatment: [No plan line of treatment] 07/24/2023 - Chemotherapy OP DA-EPOCH-R every 21 days (Clinic Administration 48hr EPOCH infusion) [id number] 07/27/2023 - 07/27/2023 Chemotherapy Outpatient DA R-EPOCH Home Health Administration (48hr EPOCH infusion) [id number] 08/11/2023 - Supportive Therapy SCP - PORT FLUSH Plan Provider: Mike Chaudhary MD Treatment goal: Supportive Line of treatment: Maintenance 08/27/2023 - Chemotherapy SCP - PACKED RED BLOOD CELLS AND PLATELETS FOR ADULTS REQUIRING FREQUENT TRANSFUSIONS (3 TIMES A WEEK FOR 3 MONTHS) [id number] 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 Patient lives 1 hour away from [facility]. He lives with his 4-year-old son. Patient is . He is on disability. Patient was admitted to [facility], and then transferred to [facility] because of Burkitt's lymphoma with hospital courses as below HOSPITAL COURSE (focused): - C 06/20/2023 - 07/07/2023 (17 days): "Farhad Franco is 32 year old male with a past medical history significant for cerebral vasculitis (primary cerebral angiitis following Rheumatology in [place]) complicated by stroke at the age of7, migraine with aura, nephrolithiasis, petite mal seizures presented to [facility] with complaint of abdominal pain. Transferred from [facility] ER to [facility] to assess for IR biopsy in the setting of rapidly enlarging retroperitoneal mass on CT imaging. As per mother, he was on number of medications for his vasculitis like CellCept, Cytoxan, methotrexate from 1997 through 2014. 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 His uric acid was elevated s/p [...] 06/25/23, lumbar puncture 07/02/23" HOSPITAL COURSE (focused) [facility]- 07/12/2023 - 07/14/2023 (2 days): 32 yo male presents to the [facility] ED c/o headache. Found to be pancytopenic on admission, not requiring transfusion. MRI done which was negative for acute change or metastasis. Headache resolved throughcourse of admission. Cell lines remained stable during admission, abx ppx was changed to levaquin. Oncology was consulted, recommended no additional change on management. Was discharged in stable condition on 07/13 with plan for close f/u with oncology OP. ECOG: Performance Status 1 = 80-90% Symptoms [...] He is taking all his supportive medications. HISTORY OF PRESENT ILLNESS: Farhad Franco is a 32 year old male with a history as outlined above. Currently here for a f/u visit today, accompanied by his stepfather. Started Cycle 4 of treatment with DA-EPOCH-R 09/07/2023, today he is here for C4D3. He continues with some intermittent numbness to the fingers on his right hand and fatigue following chemotherapy treatments. On days 1 and 5 of treatment he has very long days traveling [facility] [place] [facility] [place]. Reports having an ongoing runny nose and eyes with clear drainage over the past week, from seasonal allergies - taking Claritin daily without relief of symptoms. Eating and drinking well, reports having a good appetite. No recent problems with nausea or vomiting, states that he has not needed to take nausea medications for several weeks now. Reports that heis taking his potassium supplement and other supportive medications at home as prescribed. Denies fevers, chills, night sweats, weakness, headaches, dizziness, vision changes, paresthesias, neuroapt S OB/MAHAN, chest pain or tightness, palpitations, lower extremity edema, abdominal pain, nausea, vomiting, diarrhea, constipation, hematuria, melena, or hematochezia. Past Medical History: Diagnosis Date Adjustment disorder with depressed mood 08/14/2009 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 Follows in [facility] q6m Cerebrovascular accident (CVA) (HCC) Gastroesophageal reflux [...] performed by Laurence Dent MD at [facility] EGD, FLEXIBLE, DIAGNOSTIC 02/05/2022 normal bx / ESOPHAGOGASTRODUODENOSCOPY (EGD), FLEXIBLE, TRANSORAL, DIAGNOSTIC performed by Laurence Dent MD at [facility] INFORMATION Arteriograms. INSER TUNN ACC DEV;5 YRS/OLDER Right 07/17/2023 INSERT TUNNELED CENTRAL VENOUS ACCESS WITH SUBQ PORT performed by Medhat Angel MD at OR [facility] IR BIOPSY 06/22/2023 MT ANESTH,OPEN HEAD SURGERY Social History Socioeconomic History [...] Stability Do you currently live in a custodial or have no steady place to sleep [...] other nostril. 2 Each 3 Magic Swizzle (Uzqbcdppy-Qazucwag-Moprso) oral solution Swish and spit 15 mL [...] medications for this visit. REVIEW OF SYSTEMS: See HPI - otherwise negative OBJECTIVE: Filed Vitals: 09/09/23 1038 BP: 123/76 Pulse: 81 Temp: 36.9 C (98.4 F) TempSrc: Tympanic SpO2: 100% Weight: 110.3 kg (243 lb 1.6 oz) Wt Readings from Last 5 Encounters: 09/09/23 110.3 kg (243 lb 1.6 oz) 09/07/23 108.7 kg (239 lb 9.6 oz) 09/04/23 109.9 kg (242 lb 4.8 oz) 08/27/23 111.3 kg (245 lb 6.4 oz) 08/21/23 113.7 kg (250 lb 9.6 oz) PHYSICAL EXAM: ECOG: Performance Status 1 = 80-90% Symptoms but nearly ambulatory General Appearance: Normal - Healthy appearing patient in no acute distress HEENT: Normal - No oral or pharyngeal masses, ulceration or thrush noted, no sinus tenderness Lungs/Thorax: Normal - Clear to auscultation Heart: Normal - Regular rate and rhythm, normal S1, S2, no appreciable murmurs, rubs, gallops Pulses/Extremities: Normal - 2+ throughout and symmetrical, no edema Abdomen: Normal - Soft, nontender, bowel sounds present, no appreciable hepatosplenomegaly, no palpable masses LABS: Results for orders placed or performed during the hospital encounter of 09/07/23 CELL COUNT, CSF Result Value Ref Range Color, CSF Colorless Colorless Clarity, CSF Clear Clear Color, Supernatant CSF Colorless Colorless Tube Number, CSF 1 Total Nucleated Cell Count, CSF 2 <5 cells/uL RBC, CSF 0 <5 cells/uL MANUAL DIFFERENTIAL, CSF Result Value Ref Range Total Nucleated Cell Count, CSF 2 cells/uL Neutrophils % 2 0 - 6 % Lymphocytes % 47 40 - 80 % Monocytes % 51 (H) 15 - 45 % Absolute Neutrophils 0.04 cells/uL Absolute Lymphocytes 0.94 cells/uL Absolute Monocytes 1.02 cells/uL CYTOLOGY Result Value Ref Range Final Diagnosis A. CSF, Cytology: Adequacy: Less than optimal- Evaluation limited by scant cellularity. Category: Benign. Interpretation: Benign lymphocytes, monocytes and red blood cells. Other: Prior Cancer Lymphoma Indication for Procedure IT methotrexate Gross Description A. CSF. Received fresh labeled with name: Farhad Franco and csf and verified with the patient's name anddate of . Received 1mls of clear colored fluid. The specimen is prepared for cytospin(s) at [facility]. Prepared by: Performing Labs Roll Forming Machine Set Up Operator screening performed at [facility]), [facility] [place] [address]. Pathologist sign out performed at [facility]), [facility] [place] [address]. Photographic images and diagrams represent garcia findings in this case; they are not intended to replace a complete review of the final diagnostic report. The following statement applies to Flow Cytometry, Histology, In situ Hybridization Assays and Molecular Genetics. This test was developed and performed at [facility] and its performance characteristics determined by [facility] [employer]. It has not been cleared or approved by the U.S. Food and Drug Administration. The FDA has determined that such clearance or approval is not necessary. This test is used for clinical purposes. It should not be regarded as investigationalor for research. Special stains, including histochemical stains, and studies using immunologic and MONA methodology (where applicable) are performed with appropriate positive and negative control reactions. IMAGING: FLUORO GUIDED CHEMO ADMIN INTO IT CONSULTING MANAGER Result Date: 09/07/2023 IMPRESSION Successful fluoroscopy guided lumbar puncture and administration of intrathecal chemotherapy without immediate complications. I have personally reviewed this examination and agree with theresident/fellow physician's interpretation. FLUORO GUIDED CHEMO ADMIN INTO IT CONSULTING MANAGER Result Date: 08/21/2023 IMPRESSION Successful fluoroscopically guided lumbar puncture for administration of intrathecal chemotherapy. I have personally reviewed this examination and agree with the resident/fellow physician's interpretation. FLUORO GUIDED CHEMO ADMIN INTO IT CONSULTING MANAGER Result Date: 08/17/2023 IMPRESSION Final report Successful fluoroscopy guided lumbar puncture and intrathecal chemotherapy administration without immediate complication. I have personally reviewed this examination and agreewith the resident/fellow physician's interpretation. FLUORO GUIDED CHEMO ADMIN INTO IT CONSULTING MANAGER Result Date: 07/22/2023 IMPRESSION Successful fluoroscopy guided lumbar puncture and intrathecal chemotherapy administration without immediate complication. IR INTERVENTIONAL RADIOLOGY PROCEDURE IN OR Result Date: 07/17/2023 IMPRESSION: Successful placement of a chest power injectable medical port. MRI BRAIN W WO CONTRAST Result Date: 07/13/2023 IMPRESSION: No acute intracranial abnormality nor suspicious lesion. Chronic left INTERSTATE BUS DRIVER territory infarct. CTA HEAD/CTA NECK Result Date: [...] Result Date: 05/21/2023 IMPRESSION Left renal calculi. IMPRESSION/PLAN: Burkitt Lymphoma of intra-abdominal lymph nodes Chemotherapy-induced pancytopenia Chemotherapy-induced nausea and vomiting Hypokalemia Generalized Weakness Seasonal allergies Acid indigestion Encounter to discuss test results Reviewed results of CBC/diff and CMP from 09/06 with the patient and his dad today Okay for treatment today with C4D3 of DA-EPOCH-R Scheduled for IV fluids x3/week on the week of chemotherapy Reinforced need to remain very well-hydrated while on chemotherapy and especially while receiving Cytoxan Repeat CBC/diff, CMP and LDH twice weekly, next due 09/11/2023 Transfuse as needed for Hgb < 7 and PLT < 10 Recently completed Cycle 3 of DA-EPOCH-R on 08/24/2023 with Cycle 4 Day 1 scheduled 09/07/2023 His khurram ANC after cycle 2 was 3300, so his dose of etoposide, doxorubicin, cyclophosphamide was increased by 20% in cycle 3. His systemic chemotherapy, as well as IT methotrexate on day 1, day 5 of every cycle, [facility] be [facility] and [facility]. He is scheduled with IR in [place] for IT methotrexate on day 1, day 5 of cycle 3, and will be scheduled in the future until he completes total of 6 cycles of dose adjusted EPOCH-R Repeat labs twice weekly: CBC/diff, CMP, and LDH UA to be processed on treatment Day 1 Remain alert and contact the clinic with any new fevers, headaches, vision changes or signs of increased bruising or bleeding Use Emla cream on port 1 hour prior to accessing Continue taking supportive medications as prescribed Allopurinol, Fluconazole, Bactrim and Acyclovir Start Levaquin for when ANC < 500 Continue Potassium Chloride 20 mEq BID for hypokalemia Continue Pepcid 20 mg PO once daily for heartburn/indigestion Can use OTC TUMS PRN Continue taking Protonix [address] tablet once daily in the morning at least 30 minutes to 1 hour before food Continue Zofran for PRN nausea and vomiting Palliative Medicine following, office visit today 09/09/2023 Stop Claritin and Start Zyrtec 10 mg PO once daily for seasonal allergies Dose of R EPOCH to be adjusted [...] treatment, then only as clinically indicated. RTC as scheduled with Ritika ZARAGOZA, with CBC/diff, CMP, Uric Acid, UA and LDH [facility] documented in this encounter Nursing Notes * Melvin Valiente MED ASSIST - 09/09/2023 10:42 AM EDT Patient identified by name and [...] activate it for you? ALREADY ACTIVE BP 123/76 (BP Site: Right Arm, BP Position: Sitting, BP Cuff Size: Regular) | Pulse 81 | Temp 36.9 C (98.4 F) (Tympanic) | Wt 110.3 kg (243 lb 1.6 oz) | SpO2 100% | BMI 33.91 kg/m | BSA 2.35 m Patient was instructed to not get [...] Description 09/14/2023 7:00 AM EDT Laboratory Laboratory, [address] [place] [address] [facility], Lab [address] [place], [place] [address] [id number] 09/14/2023 8:00 AM EDT Immunization/Injection Hematology/Oncology Treatment, [address] [place] [address] [facility], Chair1 Hem Onc [address] [facility]ERNST [place] [id number] 09/17/2023 10:30 AM EDT Laboratory Laboratory, [address], [place] [address] [facility], Lab [address] [place] [address] 09/17/2023 11:30 AM EDT Office Visit Hematology/Oncology, [address], [place] [address] Ritika Godfrey CRNP [address] [place] [address], [place] [address] 09/17/2023 12:00 PM EDT Hem/Onc Treatment Hematology/Oncology Treatment, [address], [place] [address] [facility], Chair9 Hem Onc [address] [place] [address], [place] [address] 09/18/2023 10:00 AM EDT Laboratory Laboratory, [address], [place] [address] [facility], Lab [address] [place] [address] 09/18/2023 11:30 AM EDT Hem/Onc Treatment Hematology/Oncology Treatment, [address], [place] [address] [facility], Chair5 Hem Onc [address] [place] [address], [place] [address] 09/21/2023 9:10 AM EDT Laboratory Laboratory [facility], [place] [address] [place] [id number] [place], Lab [facility] [address] [place] [address] 09/25/2023 10:30 AM EDT Laboratory Laboratory, [address] [address] [facility], Lab [address] [place] [address] 09/25/2023 11:30 AM EDT Telemedicine Hematology/Oncology, [address] [place] [address] Mike Chaudhary MD [address] [place] [address] Cart, Telemed [facility] Hem Onc Clinic [address] [place] [address] 09/25/2023 2:40 PM EDT Office Visit Rheumatology [address] [place] [address] Oliver Zhang MD [address] [place] [address], [place] [address] 09/28/2023 2:00 PM EDT Appointment Radiology, [place] [address] [place] [phone] 09/30/2023 11:00 AM EDT Hem/Onc Treatment Hematology/Oncology Treatment, [address] [place] [address] [facility], Chair2 Hem Onc [address] [place] [address] 10/02/2023 2:00 PM EDT Appointment Radiology, [address] [phone] 10/05/2023 7:10 AM EDT Laboratory Laboratory, [address] [place] [address] [facility], Lab [address] [place] [address] 10/05/2023 8:00 AM EDT Immunization/Injection Hematology/Oncology Treatment, [address] [address] [facility], Chair2 Hem Onc [address] [place] [address], [place] [address] 10/08/2023 12:00 PM EDT Laboratory Laboratory, [address] [place] [address] [facility], Lab [address] [place] [address] 10/08/2023 1:00 PM EDT Office Visit Hematology/Oncology, [address] [place] [address] Lakeshia Stone CRNP [address] [place] [address] 02/19/2024 12:00 PM EST Office Visit [facility] [address], [place] [address] [place] [address] Kayla Reeder DO [address] [place] [address] Health Maintenance Due Date Last Done Comments COVID-19 Vaccine (#1) 1993 Influenza Vaccine (FLU shot) (#1) 2023 11/17/2016, 11/17/2016, 11/30/2015, Additional history exists Depression Screening 07/07/2024 07/08/2023, 06/11/19 24 Albumin/Creatinine Ratio Discontinued 08/02/2021 documented as of this encounter Medical Devices Implanted Type Area Lead Fabricator Device Identifier Shelf Expiration Date Model / Serial / Lot Mediport Pwr Mri 8fr [id number] - [id number] Implanted:Qty : 1 on 07/17/2023 by Medhat Angel MD at OR [facility] Right: Chest CR BARD : PERIPHERAL VASCULAR 07/16/2024 [id number] / / [id number] Port Implant W8f Poly Cath - [id number] Implanted:Qty : 1 on 07/17/2023 by Medhat Angel MD at OR [facility] CR BARD : PERIPHERAL VASCULAR [id number] 07/16/2024 [id number] / / [id number] documented as of this encounter Visit Diagnoses Diagnosis 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)- Primary Burkitt's tumor or lymphoma of intra-abdominal lymph nodes Seasonal allergies Allergic rhinitis, cause unspecified Antineoplastic chemotherapy induced pancytopenia (HCC) Encounter for antineoplastic chemotherapy 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) Other malignant lymphomas of intra-abdominal lymph nodes Encounter to discuss test results Other specified counseling Generalized weakness Other malaise and fatigue Hypokalemia Hypopotassemia Chemotherapy induced nausea and vomiting Nausea with vomiting documented in this encounter Advance Directives * [...] Agents on File Name Relationship Healthcare Agent [facility]hi p Communication Trixie Le Gundersen [facility] Care Repr esentative (appointed verbally by patient or by statute hierarchy) [email or web address] Care Teams Manager Project Management Relationship Specialty Start Date End Date Kayla Reeder DO [address] [facility] [place] [address] PCP - General Family Medicine 06/11/23 documented as of this encounter
--- OUTSIDE RECORDS SUMMARY | 2023-09-18 21:16 | External Medical Summary ---
Author Name Unknown Address Unknown Organization K01:[facility] - [address] [facility] [address] Laboratory Report Ordering Provider Test Date Status MATTI BARAJAS 09/11/2023 09:22:38 Final Observation Date Value Abnormality Reference (Units ) Status WBC, Total 09/11/2023 09:22:38 3.98 Below low normal 4.00-10.80 (K/uL) Final RBC 09/11/2023 09:22:38 2.48 4.50-5.25 (M/uL) Final Hemoglobin 09/11/2023 09:22:38 7.6 Below low normal 14.0-16.8 (g/dL) Final HCT 09/11/2023 09:22:38 23.5 Below low normal 40.0-48.4 (%) Final MCV 09/11/2023 09:22:38 94.8 82.0-99.5 (fL) Final MCH 09/11/2023 09:22:38 30.6 27.0-34.0 (pg) Final MCHC 09/11/2023 09:22:38 32.3 32.0-36.0 (g/dL) Final RDW 09/11/2023 09:22:38 19.3 11.5-15.5 (%) Final Platelets 09/11/2023 09:22:38 161 140-400 (K/uL) Final MPV 09/11/2023 09:22:38 9.3 6.6-11.1 (fL) Final Nucleated erythrocytes/100 leukocytes [Ratio] in Blood by Automated count 09/11/2023 09:22:38 0 <=0 (/100 WBCs) Final Performing Location [facility] [address] - [address] [place] [address]
--- OUTSIDE RECORDS SUMMARY | 2023-09-18 21:16 | External Medical Summary | Summary of Care ---
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) Procedures OR DOXORUBIC HCL 10 MG VL CHEMO OR VINCRISTINE SULFATE 1 MG INJ OR FOSAPREPITANT INJECTION OR ETOPOSIDE 10 MG INJ OR INJECTION, RITUXIMAB-PVVR, BIOSIMILAR, (RUXIENCE), 10 MG OR INJ, NYVEPRIA OR INJ, CYCLOPHOSPHAMIDE, NOS Elvis Villalobos MD [address] [place] [address] Anc Hem[facility]Onc [facility] [address] [facility] [address] Referral ID Status Reason Start Date Expiration Date V isits Requested Visits Authorized [id number] Authorized 07/23/2023 01/22/[phone] Encounter Details Date Type Department Care Team (Latest Contact Info) Description 09/11/2023 10:00 AM EDT Hem/Onc Treatment Hematology Oncology [facility] [address] [place] [address] Iesha, Chair 19 Hem/Onc [address] [place] [address] Encounter for antineoplastic chemotherapy*; 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 (Household - for ages [...] Sign Reading Time Taken Comments Blood Pressure 113/75 09/11/2023 9:25 AM EDT Pulse 82 09/11/2023 9:25 AM EDT Temperature 36.2 C (97.1 F) 09/11/2023 9:25 AM ED T Respiratory Rate 16 09/11/2023 9:25 AM EDT Oxygen Saturation 100% 09/11/2023 9:25 AM EDT Inhaled Oxygen Concentration - - Weight 112 kg (246 lb 14.4 oz) 09/11/2023 9:25 A M EDT Height 180.3 cm (5' 11") 09/11/2023 9:25 AM EDT Body Mass Index 34.44 09/11/2023 9:25 AM EDT documented in this [...] as of this encounter Nursing Notes * Misti Hawkins RN - 09/11/2023 10:52 AM EDT Chair 17 Safety and Risk for Injury Patient will remain free from injury. Ensure appropriate safety devices are available. Provide and maintain safe environment. Goals: as above Possible barriers to meeting goals: IV pole Stability of the patient: Moderately stable - low risk of patient condition declining or worsening Summary regarding today's goals: Met: Pt remained free from falls Functional status at today's visit: Restricted in physically strenuous activity but ambulatory and able to carry out work on a light orsedentary nature, e.g. light house work, office work The drug name, dose, infusion volume, rate and route of administration, expiration date and time, appearance and physical integrity of the drug and rate set on the pump and sequencing of drug administration (as applicable) were verified by me and second sign-in RN. Patient was assessed for symptoms or adverse side effects during treatment. Patient instructed on use of heat and massage functions where applicable. Patient shown how to operate the heat function of the chair and to alert nursing staff if the chair feels too warm. Patient instructed on the risk of potential watkins while using the heat function. * Tara Lang RN - 09/11/2023 9:28 AM EDT Pre-chemo checklist Chemo/Immune agents ::cytoxan Consent for chemotherapy drug treatment complete, dated, and signed? 07/01/2023 Is this a research protocol? no Treatment lab parameters met? Yes Has treatment weight changed > than 10% No Treatment preauthorized? Yes Blood pressure N/A Urine protein N/A Chemo education completed for new therapies? N/A Return appointment scheduled Yes Orders released Yes, per provider OK to treat per [facility] protocol documented in this encounter Plan of Treatment Upcoming Encounters Date Type Department Care Team (Late st Contact Info) Description 09/14/2023 7:00 AM EDT [address], [address] [phone] [facility], Lab [address] [place], [place] [address] [address] 09/14/2023 8:00 AM EDT Immunization/Injection Hematology/Oncology Treatment, [address] [place] [address] [facility], Chair1 Hem Onc [address] [place], [place] [address] [address] 09/17/2023 10:30 AM EDT Laboratory Laboratory, [address] [address] [facility], Lab [address] [place], [place] [address] [address] 09/17/2023 11:30 AM EDT Office Visit Hematology/Oncology, [address] [place] [address] Ritika Godfrey CRNP [address] [place] [address], [place] [address] 09/17/2023 12:00 PM EDT Hem/Onc Treatment Hematology/Oncology Treatment, [address], [place] [address] [facility], Chair9 Hem Onc [address] [place] [address], [place] [address] 09/18/2023 10:00 AM EDT Laboratory Laboratory, [address], [place] [address] [facility], Lab [address] [place] [address], [place] [address] 09/18/2023 11:30 AM EDT Hem/Onc Treatment Hematology/Oncology Treatment, [address], [place] [address] [facility], Chair5 Hem Onc [address] [place] [address], [place] [address] 09/21/2023 9:10 AM EDT Laboratory Laboratory [facility] [address] [facility] [place] [phone] [place], Lab [facility] [address] [facility] [place] [address] 09/25/2023 10:30 AM EDT Laboratory Laboratory, [address], [place] [address] [facility], Lab [address] [place] [address], [place] [address] 09/25/2023 11:30 AM EDT Telemedicine Hematology/Oncology, [address] [address] Mike Chaudhary MD [address] [place] [address] Porsche Hurtado [facility] Hem Onc Clinic [address] [place] [address] 09/25/2023 2:40 PM EDT Office Visit Rheumatology [place] [address] [facility] [place] [address] Oliver Zhang MD [facility] [place] [address] 09/28/2023 2:00 PM EDT Appointment Radiology, [place] [address] [place] [phone] 09/30/2023 11:00 AM EDT Hem/Onc Treatment Hematology/Oncology Treatment, [address] [address] [facility], Chair2 Hem Onc [address] [place] [address] 10/02/2023 2:00 PM EDT Appointment Radiology, [address] [phone] 10/05/2023 7:10 AM EDT Laboratory Laboratory, [address] [address] [facility], Lab [address] [place] [address] 10/05/2023 8:00 AM EDT Immunization/Injection Hematology/Oncology Treatment, [address] [address] [facility], Chair2 Hem Onc [address] [place] [address] [place] [address] 10/08/2023 12:00 PM EDT Laboratory Laboratory, [facility] [address] [place] [phone] [facility], Lab [address] [facility], [place] [id number] 10/08/2023 1:00 PM EDT Office Visit Hematology/Oncology, [facility] [address] [place] [address] Lakeshia Stone CRNP [address] [place] [address] 02/19/2024 12:00 PM EST Office Visit [facility] [address] [place] [address] Kayla Reeder DO [address] [place] [address] Health Maintenance Due Date Last Done Comments COVID-19 Vaccine (#1) 1995 Influenza Vaccine (FLU shot) (#1) 2023 11/17/2016, 11/17/2016, 11/30/2015, Additional history exists Depression Screening 07/07/2024 07/08/2023, 06/11/19 24 Albumin/Creatinine Ratio Discontinued 08/02/2021 documented as of this encounter Medical Devices Implanted Type Area Inspector Experimental Assembly Device Identifier Shelf Expiration Date Model / Serial / Lot Mediport Pwr Mri 8fr [id number] - [id number] Implanted:Qty : 1 on 07/17/2023 by Medhat Angel MD at OR [facility] Right: Chest CR BARD : PERIPHERAL VASCULAR 07/16/2024 [id number] / / [id number] Port Implant W8f Poly Cath - [id number] Implanted:Qty : 1 on 07/17/2023 by Medhat Angel MD at OR [facility] CR BARD : PERIPHERAL VASCULAR [id number] 07/16/2024 [id number] / / [id number] documented as of this encounter Visit Diagnoses Diagnosis Encounter for antineoplastic chemotherapy- Primary 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 Start Infusion 09/11/2023 12:20 PM EDT 2,140 mg 500 mL/hr hEParin 100 UNIT/ML Lock Flush inj 500 Units 500 Units (5 mL), IV Lock, PRN Other, IV Flush, Starting on Thu09/11/23 at 0929, Until Thu09/11/23 at 1348, For 24 hours, Do not flush if lock, PICC, or central line not in place; IV infusing or unable to flush. Given 09/11/2023 1:32 PM EDT 500 Units NSS infusion FOR HYDRATION Intravenous, at 500 mL/hr Administer over 2 Hours, ONCE, 1 dose, On Thu09/11/23 at 1000 Start Infusion 09/11/2023 10:08 AM EDT 1,000 mL 500 mL/hr NSS infusion FOR HYDRATION Intravenous, at 50 mL/hr Administer over 10 Hours, ONCE PRN, 1 dose, Starting on Thu09/11/23 at 1132, Until Thu09/11/23 at 1330 Start Infusion 09/11/2023 12:14 PM EDT 500 mL 50 mL/hr ondansetron (Zofran) tab 8 mg 8 mg, Oral, ONCE, On Thu09/11/23 at 1030, For 1 dose, Give 30 minutes prior to chemotherapy. Given 09/11/2023 12:15 PM EDT 8 mg potassium chloride 20 mEq in 50 mL ivpb LOCKED DOSE 20 mEq, Central IV, ONCE, 1 dose, On Thu09/11/23 at 1215, Administer over 60 Minutes, Standard infusion duration is 60 minutes. Start Infusion 09/11/2023 12:21 PM EDT 20 mEq 50 mL/hr sodium chloride 0.9 % flush central line 10 mL 10 mL, IV Push, PRN Other, IV Flush, Starting on Thu09/11/23 at 0929, Until Thu09/11/23 at 1348, For 24 hours, Do not flush if lock, PICC, or central line not in place; IV infusing or unable to flush. Given 09/11/2023 1:31 PM EDT 10 mL documented in this encounter Advance Directives * [...] Agents on File Name Relationship Healthcare Agent [facility] T[facility]ie [facility] Repr esentative (appointed verbally by patient or by statute hierarchy) [email or web address] Care Teams Herd Tester Relationship Specialty Start Date End Date Kayla Reeder DO [address] [facility] [place] [address] PCP - General Family Medicine 06/11/23 documented as of this encounter
--- OUTSIDE RECORDS SUMMARY | 2023-09-18 21:16 | External Medical Summary | Summary of Care ---
Author Name Unknown Organization [facility] Address [address] [place] [address] Phone [phone] Care Team Providers Care Independent Producer Name Role Phone Kayla Reeder DO Primary Care Provider [phone]- [phone] Encounter Details Date Type Department Care Team (Latest Contact Info) Description 09/07/2023 12:17 PM EDT - 09/07/2023 11:59 PM EDT Hospital Encounter Radiology, [place] [address] [place] [address] Arrived Discharge Disposition: Home - Self Care Allergies No known active allergiesdocumented as of this encounter (statuses as of 09/08/2023) Medications Medication Sig Dispensed Refills Start Date [...] the morning. 90 Capsule 1 03/02/2023 Active Loratadine 10 MG Oral Tablet (Claritin)Indication s:Chronic cough Take 1 Tablet by mouth in the morning. 30 Tablet 11 05/01/2023 Active Celecoxib 200 MG Oral Capsule (CeleBREX)Indication [...] treatment only. 75 Tablet 5 07/27/2023 Active Famotidine 20 MG Oral Tablet (Pepcid)Indications: Acid indigestion Take 1 Tablet by mouth in the morning. 30 Tablet 08/11/2023 4 Active Morphine Sulfate 15 MG Oral Tablet (Msir)Indications:Ca ncer related pain Take 1 Tablet by mouth every 6 hours as needed for Pain, Breakthrough. 30 Tablet 08/14/2023 Active Potassium Chloride [facility] 10 MEQ Oral Tablet Extended ReleaseIndications:H ypokalemia TAKE TWO TABLETS BY MOUTH EVERY MORNING AND TWO TABLETS BEFORE BEDTIME. DO ALL THIS FOR 14 DAYS 56 Tablet 08/24/2023 Active Potassium Chloride [facility] 10 MEQ Oral Tablet Extended ReleaseIndications:H ypokalemia Take 2 Tablets by mouth in the morning and 2 Tablets before bedtime. 56 Tablet 08/22/2023 Active Buprenorphine HCl 2 MG Sublingual Tablet [...] before bedtime. 180 Tablet 3 08/28/2023 Active Hospital, Clinic, or Other Facility Administered Medication Ordered Dose Route Frequency Start Date End Date Status etoposide (VEPESID) 290 mg, vinCRIStine sulfate 1.91 mg, DOXOrubicin (Adriamycin) 58 mg in NSS 1,500 mL infusion IV CONTINUOUS 09/06/2023 09/08/2023 Ended documented as of this encounter (statuses as of 09/08/2023) Active Problems Patient Care Coordination No te Formatting of this note migh t be different from the original. Patient receiving home chemo infusion and gets disconnected in the [facility]. Problem Noted Date Diagnosed [...] as of this encounter (statuses as of 09/08/2023) Resolved Problems Problem Noted Date Diagnosed Date [...] as of this encounter (statuses as of 09/08/2023) Immunizations Name Administration Dates Next Due DT [...] Sign Reading Time Taken Comments Blood Pressure 121/74 09/07/2023 3:10 PM EDT Pulse 67 09/07/2023 3:10 PM EDT Temperature 36.6 C (97.9 F) 09/07/2023 2:30 PM ED T Respiratory Rate 18 09/07/2023 3:10 PM EDT Oxygen Saturation 99% 09/07/2023 3:10 PM EDT Inhaled Oxygen Concentration - - [...] as of this encounter Nursing Notes * Mary Hawley RN - 09/07/2023 2:00 PM EDT ITC medication METHOtrexate Sodium (PF) 50 MG/2ML 12 mg in sodium chloride 0.9 % 5 mL intrathecal verified and dual-signed with Dr. Chino Chun.Patient's name, , allergies, and wristband checkedagainst standing order under treatment plan. * Jasmine Ordonez RN - 09/07/2023 2:00 PM EDT DISCHARGE - POST INTERVENTIONAL RADIOLOGY PROCEDURE Patient meets discharge criteria for Interventional Radiology. Vital signs stable. Dressing clean, dry, and intact. Patient awake and oriented to pre procedure baseline. Discharge instructions given,no questions at this time. Patient tolerating liquids, with no nausea/vomiting. All belongings sentwith patient. Discharged to home. Vital Signs: BP: 121/74 (09/07/23 1510) Temp: 36.6 C (97.9 F) (09/07/23 1430) Pulse: 67 (09/07/23 1510) Resp: 18 (09/07/23 1510) SpO2: 99 % (09/07/23 1510) Neurological: [place] Coma Scale Eyes Open: Spontaneous (09/07/23 1430) Best Verbal Response: Verbally appropriate for age (09/07/23 1430) Best Motor Response: Obeys commands appropriate for age (09/07/23 1430) Coma Score: 15 (09/07/23 1430) Activity: Four Extremities LOC: Fully Awake or Pre-Anesthetic Level of Consciousness BP: Less than (+/-) 20% Resp: Deep Breathe and Cough Freely (09/06 1453) Respiratory: Pain Assessment Flowsheet Row Most Recent Value Pain Assessment Scale [facility] Adult Scale 0-10 Pain Score 0 (no pain) documented in this encounter Miscellaneous Notes * Ancillary Progress Note - Cielo Reno TECH - 09/07/2023 2:00 PM EDT PROGRESS NOTE - radiology Service [address] [place] [address] Name: Farhad Franco Location: Room/bed info not found Date: 09/07/2023 Time: 2:43 PM CSF carried to lab by Marilee, handed to Alis at 2:31. documented in this encounter Plan of Treatment Upcoming Encounters Date Type Department Care Team (Late st Contact Info) Description 09/09/2023 10:30 AM EDT Office Visit Hematology/Oncology, [address] [address] Lakeshia Stone CRNP [address] [place] [address] 09/09/2023 11:00 AM EDT Hem/Onc Treatment Hematology/Oncology Treatment, [address] [address] [facility], Chair1 Hem Onc [address] [place] [address] 09/09/2023 1:00 PM EDT Office Visit Palliative Medicine, [address] [place] [address] Tessa Rubio PA-C [address] [place] [address] 09/11/2023 9:00 AM EDT Nurse Only [facility], [address] [address] [place], Nurse Lab Hem/Onc [address] [place] [address] 09/11/2023 10:00 AM EDT Hem/Onc Treatment Hematology Oncology [facility], [place] [address] [place] [facility] [place] [address] [place], Chair 19 Hem/Onc [address] [place] [facility] [place] [address] 09/11/2023 2:00 PM EDT Appointment Radiology, [address] [place] [phone] 09/14/2023 7:00 AM EDT Laboratory Laboratory, [address] [address] [facility], Lab [address] [place] [address] 09/14/2023 8:00 AM EDT Immunization/Injectio n Hematology/Oncology Treatment, [address] [address] [facility], Chair1 Hem Onc [address] [place] [address] 09/17/2023 10:30 AM EDT Laboratory Laboratory, [address] [place] [address] [facility], Lab [address] [place] [address] 09/17/2023 11:30 AM EDT Office Visit Hematology/Oncology, [address] [place] [address] Ritika Godfrey CRNP [address] [place] [address] 09/17/2023 12:00 PM EDT Hem/Onc Treatment Hematology/Oncology Treatment, [address] [address] [facility], Chair9 Hem Onc [address] [place] [address], [place] [address] 09/18/2023 10:00 AM EDT Laboratory Laboratory, [address] [place] [phone] [facility], Lab [address] [place] [address], [place] [address] 09/18/2023 11:30 AM EDT Hem/Onc Treatment Hematology/Oncology Treatment, [address] [place] [address] [facility], Chair5 Hem Onc [address] [place] [address], [place] [address] 09/25/2023 2:40 PM EDT Office Visit Rheumatology [address] [place], [place] [address] Oliver Zhang MD [address] [place] [address], [place] [address] 09/28/2023 2:00 PM EDT Appointment Radiology, [address] [address] 10/02/2023 2:00 PM EDT Appointment Radiology, [address] [address] 02/19/2024 12:00 PM EST Office Visit [facility] [place] Maribell [address] [place] [phone] Kayla Reeder DO [address] [place] [address] Pending Results Name Type Priority Associated Diagnoses Date /Time CYTOLOGY Pathology STAT 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) 09/07/2023 12:01 AM EDT Health Maintenance Due Date Last Done Comments COVID-19 Vaccine (#1) 1995 Influenza Vaccine (FLU shot) (#1) 2023 11/17/2016, 11/17/2016, 11/30/2015, Additional history exists Depression Screening 07/07/2024 07/08/2023, 06/11/19 24 Albumin/Creatinine Ratio Discontinued 08/02/2021 documented as of this encounter Medical Devices Implanted Type Area Certified Alcohol And Drug Counselor Device Identifier Shelf Expiration Date Model / Serial / Lot Mediport Pwr Mri 8fr [id number] - [id number] Implanted:Qty : 1 on 07/17/2023 by Medhat Angel MD at OR [facility] Right: Chest CR BARD : PERIPHERAL VASCULAR 07/16/2024 [id number] / / [id number] Port Implant W8f Poly Cath - [id number] Implanted:Qty : 1 on 07/17/2023 by Medhat Angel MD at OR [facility] CR BARD : PERIPHERAL VASCULAR [id number] 07/16/2024 [id number] / / [id number] documented as of this encounter Procedures Procedure Name Priority Date/Time Associated Diagnosis Comments FLUORO GUIDED CHEMO ADMIN INTO OTHER SPORTS COACH OR INSTRUCTOR STAT 09/07/2023 2:36 PM EDT 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 I have personally reviewed this examination and agree with the resident/fellow physician's interpretation. Narrative 09/07/2023 2:46 PM EDT EXAM FLUORO GUIDED CHEMO ADMIN INTO OTHER SPORTS COACH OR INSTRUCTOR - 09/07/2023 HISTORY Burkitt lymphoma, intrathecal chemotherapy administration COMPARISON Fluoroscopically guided chemopuncture 08/21/2023 and 08/17/2023. TECHNIQUE PHYSICIANS: Dr. Chun (Attending); Dr. Correa (Resident) TIME OUT, PATIENT IDENTIFICATION, AND CONSENT: A time out procedure was performed at 1:50 p.m. in the presence of RT Michael. [...] and under intermittent fluoroscopic guidance the right L2-L3 interlaminar space was localized. The patient was prepped and draped in the usual sterile fashion. 1% percent lidocaine was injected into the skin at the access site for local anesthesia. A 22 gauge 4.75 in spinal needle and stylet were advanced into the thecal sac under intermittent fluoroscopic guidance. There was spontaneous slow flow of clear CSF. Approximately 2 mL of clear CSF was collected in 1 tube and sent to the lab for analysis. ADMINISTRATION OF CHEMOTHERAPY: Methotrexate sodium (PF) 50 MG/2ML 12 mg in sodium chloride 0.9 % 5 mL intrathecal was slowly administered. The stylet was replaced and the needle was removed. There were no immediate post procedure complications. ATTESTATION: Dr. Chun performed the procedure. FINDINGS Spot fluoroscopic images of the lumbar spine demonstrate spinal needle in proper position over the thecal sac. Procedure Note Chino Chun MD - 09/07/2023 EXAM FLUORO GUIDED CHEMO ADMIN INTO OTHER SPORTS COACH OR INSTRUCTOR - 09/07/2023 HISTORY Burkitt lymphoma, intrathecal chemotherapy administration COMPARISON Fluoroscopically guided chemopuncture 08/21/2023 and 08/17/2023. TECHNIQUE PHYSICIANS: Dr. Chun (Attending); Dr. Correa (Resident) TIME OUT, PATIENT IDENTIFICATION, AND CONSENT: A time out procedure wasperformed at 1:50 p.m. in the presence of RT Michael. [...] table and underintermittent fluoroscopic guidance the right L2-L3 interlaminar space waslocalized. The patient was prepped and draped in the usual sterilefashion. 1% percent lidocaine was injected into the skin at the accesssite for local anesthesia. A 22 gauge 4.75 in spinal needle and styletwere advanced into the thecal sac under intermittent fluoroscopicguidance. There was spontaneous slow flow of clear CSF. Approximately 2mL of clear CSF was collected in 1 tube and sent to the lab foranalysis. ADMINISTRATION OF CHEMOTHERAPY: Methotrexate sodium (PF) 50 MG/2ML 12 mgin sodium chloride 0.9 % 5 mL intrathecal was slowly administered. The stylet was replaced and the needle was removed. There were noimmediate post procedure complications. ATTESTATION: Dr. Chun performed the procedure. FINDINGS Spot fluoroscopic images of the lumbar spine demonstrate spinal needle inproper position over the thecal sac. IMPRESSION IMPRESSION Successful fluoroscopy guided lumbar puncture and administration ofintrathecal chemotherapy without immediate complications. I have personally reviewed this examination and agree with the resident/fellow physician's interpretation. Mike Chaudhary MD RAD FLUOROS COPY * (ABNORMAL) MANUAL DIFFERENTIAL, CSF (09/07/2023 1:28 PM EDT) Total Nucleated Cell Count, CSF 2 cells/uL 09/07/2023 6:49 PM EDT [facility] Neutrophils % 2 0 - 6 % 09/07/2023 6:49 PM EDT [facility] Lymphocytes % 47 40 - 80 % 09/07/2023 6:49 PM EDT [facility] Monocytes % 51(H) 15 - 45 % 09/07/2023 6:49 PM EDT [facility] Absolute Neutrophils 0.04 cells/uL 09/07/2023 6:49 PM EDT [facility] Absolute Lymphocytes 0.94 cells/uL 09/07/2023 6:49 PM EDT [facility] Absolute Monocytes 1.02 cells/uL 09/07/2023 6:49 PM EDT [facility] Cerebrospinal Fluid Cerebrospinal fluid specimen / Unknown Non-blood Collection / Unknown 09/07/2023 1:28 PM EDT 09/07/2023 2:35 PM EDT Narrative [facility] - 09/07/2023 6:49 PM EDT Some reference ranges and other method performance specifications have not been established for this fluid. The test results must be integrated into the clinical context for interpretation. Lakeshia ZARAGOZA LAB FLUID AND ST OOL ORDERABLES Performing Organization Address City/[facility]/ZIP Co de Phone Number LAB[facility]ATORY [facility] [address] [place] [address] * CELL COUNT, CSF (09/07/2023 1:28 PM EDT) Color, CSF Colorless Colorless 09/07/2023 4:56 PM EDT [facility] Clarity, CSF Clear Clear 09/07/2023 4:56 PM EDT [facility] Color, Supernatant CSF Colorless Colorless 09/07/2023 4:56 PM EDT [facility] Tube Number, CSF 1 09/07/2023 4:56 PM EDT [facility] Total Nucleated Cell Count, CSF 2 <5 cells/uL 09/07/2023 4:56 PM EDT [facility] RBC, CSF 0 <5 cells/uL 09/07/2023 4:56 PM EDT [facility] Cerebrospinal Fluid Cerebrospinal fluid specimen / Unknown Non-blood Collection / Unknown 09/07/2023 1:28 PM EDT 09/07/2023 2:35 PM EDT Narrative [facility] - 09/07/2023 4:56 PM EDT Some reference ranges and other method performance specifications have not been established for this fluid. The test results must be integrated into the clinical context for interpretation. Lakeshia ZARAGOZA LAB FLUID AND ST OOL ORDERABLES LAB[facility] [address] [place] [address] documented in this encounter Visit Diagnoses Diagnosis [...] Agents on File Name Relationship Healthcare Agent [facility] Communication Trixie Le [facility] Repr esentative (appointed verbally by patient or by statute hierarchy) [email or web address] Care Teams Independent Producer Relationship Specialty Start Date End Date Kayla Reeder DO [address] [facility] [place] [id number] PCP - General Family Medicine 06/11/23 documented as of this encounter
--- OUTSIDE RECORDS SUMMARY | 2023-09-18 21:16 | External Medical Summary ---
Author Name Unknown Address Unknown Organization [id number]:[facility] [address] [place] [address] Laboratory Report Ordering Provider Test Date Status MATTI BARAJAS 09/11/2023 09:22:38 Final Observation Date Value Abnormality Reference (Units ) Status LDH 09/11/2023 09:22:38 228 <=250 (U/L ) Final Performing Location [facility] - [address] [place] [address]
--- OUTSIDE RECORDS SUMMARY | 2023-09-18 21:16 | External Medical Summary | Summary of Care ---
Author Name Unknown Organization [facility] Address [address] [place] [address] Phone [phone] Care Team Providers Care Donkey Doctor Name Role Phone Varinder Kaylaparth Clarke DO Primary Care Provider [phone]- [phone] Reason for Visit * Reason Comments eRx-Medication Refill Encounter Details Date Type Department Care Team (Late st Contact Info) Description 09/09/2023 Refill Family Practice [facility] [address] [place] [address] Tim Batres MD [address] [place] [address] Hypokalemia Allergies No known active allergiesdocumented as [...] CUT, CRUSH OR CHEW 180 Tablet 3 3 Active Additional Information Patient taking differently: 500 mg Oral QHS, Reported on 06/02/2023 Propranolol HCl 40 MG Oral Tablet (Inderal)Indicatio ns:Migraine with aura and without status migrainosus, not intractable,HTN, goal below 140/90 TAKE ONE TABLET BY MOUTH TWICE A DAY (IN THE MORNING AND BEFORE BEDTIME) 180 Tablet 3 4 Active hydroCHLOROthiazid e 12.5 MG Oral Capsule (Hydrodiuril)Indic ations:History of petit-mal seizures Take 1 Capsule by mouth in the morning. 90 Capsule 1 4 Active Celecoxib 200 MG Oral Capsule (CeleBREX)Indicati ons:Migraine with aura and without status migrainosus, not intractable Take 1 Capsule by mouth in the morning. Every morning.. 30 Capsule 3 4 Active Pantoprazole Sodium 40 MG Oral Tablet Delayed Release (Protonix)Indicati ons:Gastroesophage al reflux disease with esophagitis without hemorrhage TAKE ONE TABLET BY MOUTH EVERY MORNING 30 MINUTES BEFORE THE FIRST MEAL OF THE DAY. DO NOT CRUSH,SPLIT OR CHEW THE TABLET 30 Tablet 5 4 Active Proventil HFA 108 (90 Base) MCG/ACT Inhalation Aerosol SolutionIndication s:Chronic cough Inhale 2 Puffs by mouth every 4 hours as needed for Wheezing, Shortness of Breath or Cough. 18 g 1 4 Active Fluticasone-Salmet alex 250-50 MCG/ACT Inhalation Aerosol Powder Breath Activated (Advair Diskus)Indications :Chronic cough INHALE ONE PUFF BY MOUTH EVERY MORNING AND ONE PUFF BEFORE BEDTIME 60 Each 5 4 Active Sulfamethoxazole-T rimethoprim 400-80 MG Oral Tablet (Bactrim) Take 1 Tablet by mouth in the morning. 30 Tablet 1 4 Active Sennosides-Docusat e Sodium 8.6-50 MG Oral Tablet (Senokot-S) Take 2 Tablets by mouth in the morning and 2 Tablets in the evening. 60 Tablet 1 4 Active Naloxone HCl 4 MG/0.1ML Nasal Liquid (Narcan Nasal) Administer 1 nasal spray device into one nostril as needed for suspected opioid overdose. Seek medical help immediately. If no response after 2-3 minutes, administer second nasal spray device in other nostril. 2 Each 3 4 Active Magic Swizzle (Lidocaine-Benadry l-Maalox) oral solution Swish and spit 15 mL 4 times a day as needed for Sore throat (oral pain). 900 mL 4 Active Prochlorperazine Maleate 5 MG Oral Tablet (Compazine)Indicat ions:Chemotherapy induced nausea and vomiting Take 1 Tablet by mouth every 8 hours as needed for Nausea. 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 30 Tablet 4 Active Sulfamethoxazole-T rimethoprim 400-80 MG Oral Tablet (Bactrim)Indicatio ns:Encounter for antineoplastic chemotherapy,Burki tt lymphoma of intra-abdominal lymph nodes (HCC) Take 1 Tablet by mouth in the morning. Take 1 tab by mouth daily throughout all chemotherapy cycles.. 30 Tablet 5 4 Active Ondansetron HCl 8 MG Oral TabletIndications: Encounter for antineoplastic chemotherapy,Burki tt lymphoma of intra-abdominal lymph nodes (HCC) Take 1 Tablet by mouth every 8 hours as needed for Nausea. Take 2 tabs Daily for 4 days after starting chemotherapy. 8 Tablet 5 4 Active predniSONE 20 MG Oral Tablet (Deltasone)Indicat ions:Encounter for antineoplastic chemotherapy,Burki tt lymphoma of intra-abdominal lymph nodes (HCC) Take 7.25 Tablets by mouth in the morning and 7.25 Tablets before bedtime. Take twice a day with food on Days 1-5 of EPOCH treatment only. 75 Tablet 5 4 Active Morphine Sulfate 15 MG Oral Tablet (Msir)Indications: Cancer related pain Take 1 Tablet by mouth every 6 hours as needed for Pain, Breakthrough. 30 Tablet 4 Active Potassium Chloride Ashley ER 10 MEQ Oral Tablet Extended ReleaseIndications :Hypokalemia TAKE TWO TABLETS BY MOUTH EVERY MORNING AND TWO TABLETS BEFORE BEDTIME. DO ALL THIS FOR 14 DAYS 56 Tablet 4 Active Buprenorphine HCl 2 MG Sublingual Tablet Sublingual (Subutex)Indicatio ns:Cancer related pain Place 0.5 Tablets under the tongue in the morning and 0.5 Tablets in the evening. 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 When ANC less than 500. 30 Tablet 4 Active Topiramate 100 MG Oral Tablet (topAMAX) Take 1 Tablet by mouth in the morning and 1 Tablet before bedtime. 180 Tablet 3 4 Active Cetirizine HCl 10 MG Oral Tablet (ZyrTEC)Indication s:Seasonal allergies Take 1 Tablet by mouth in the morning. 30 Tablet 4 10/09/19 24 Active Potassium Chloride Ashley ER 10 MEQ Oral Tablet Extended ReleaseIndications :Hypokalemia TAKE TWO TABLETS BY MOUTH TWICE A DAY (MORNING AND BEFORE BEDTIME) 56 Tablet 4 Active Famotidine 20 MG Oral Tablet (Pepcid)Indication s:Acid indigestion Take 1 Tablet by mouth in the morning. 30 Tablet 4 09/10/19 24 Potassium Chloride Ashley ER 10 MEQ Oral Tablet Extended ReleaseIndications :Hypokalemia Take 2 Tablets by mouth in the morning and 2 Tablets before bedtime. 56 Tablet 4 09/11/19 24 Discontinued documented as of this encounter (statuses [...] 07/08/2023 Does the household have a re lar source of income? (Household - for ages [...] encounter Miscellaneous Notes * Telephone Encounter - Luis M Minor PA-C - 09/11/2023 7:06 AM EDT Signed Prescriptions: Disp Refills Potassium Chloride Ashley ER 10 MEQ Oral Tab*56 Tab*0 Sig: TAKE TWO TABLETS BY MOUTH TWICE A DAY (MORNING AND BEFORE BEDTIME)Authorizing Provider: LUIS M MINOR S * Telephone Encounter - Jasmine aHrrison [facility] - 09/10/2023 10:14 AM EDTPending Prescriptions: Disp Refills Potassium Chloride Ashley ER 10 MEQ Oral Tab*56 Tab*0 Sig: TAKE TWO TABLETS BY MOUTH TWICE A DAY (MORNING AND BEFORE BEDTIME) * Telephone Encounter - Jasmine Harrison [facility] - 09/10/2023 10:14 AM EDT Please approve added refills if patient is to continue. Did you pend patient's preferred pharmacy and medication before forwarding?yes Pharmacy: [facility] [address] [place] [address] ALVAR[facility]- [place] Pending Prescriptions: Disp Refills Potassium Chloride Ashley ER 10 MEQ Oral Ta*56 Tab*0 Sig: TAKE TWO TABLETS BY MOUTH TWICE A DAY (MORNING AND BEFORE BEDTIME) Last Visit: 07/20/2023 (in office), Visit date not found (telemedicine) Next Visit: 02/19/2024 If no future appointments scheduled, and last appointment is greater than a year ago, please schedule patient for a follow-up appointment Last date the medication was ordered: 08/22/23 Is this request for a controlled substance?No Urine Drug Screen: Results for orders placed or performed in visit on 06/01/23 TOXICOLOGY, URINE SCREEN W/ CONFIRMATION Result Value Amphetamines Screen, U Negative Benzodiazepines Screen, U Negative Cannabinoids Screen, U Negative Cocaine Metabolite Screen, U Negative Fentanyl Screen, U Negative Hydrocodone Screen, U Negative Methadone Metabolite Screen, U Negative Morphine/Codeine Screen, U Negative Oxycodone Screen, U Negative Narrative Cutoff Concentrations: Drug Level Amphetamines 500 ng/mL Benzodiazepines 100 ng/mL Cannabinoids 50 ng/mL Cocaine Metabolite 150 ng/mL Fentanyl 1 ng/mL Hydrocodone / Hydromorphone 300 ng/mL Methadone Metabolite 100 ng/mL Morphine / Codeine 300 ng/mL Oxycodone / Oxymorphone 100 ng/mL Screening results are presumptive and can only be used for medical purposes. Positive screening results are reflexed to confirmatory testing. Patient Phone Numbers Labs: Lab Results Component Value Date/Time CREAT 0.8 09/07/2023 07:20 AM CREAT 0.90 08/06/2023 12:00 AM CREAT 1.1 11/11/2019 01:50 PM POTASSIUM 3.8 09/07/2023 07:20 AM POTASSIUM 2.9 (A) 08/06/2023 12:00 AM POTASSIUM 4.8 11/11/2019 01:50 PM TSH 3.86 04/22/2022 10:37 AM TSH 1.01 11/11/2019 01:50 PM LDLCALC 131 (H) 08/02/2021 08:53 AM LDLCALC 117 11/11/2019 01:50 PM LDLDIRECT NOT APPLICABLE 11/11/2019 01:50 PM ALT 18 09/07/2023 07:20 AM ALT 26 11/11/2019 01:50 PM HGBA1C 5.9 (H) 08/02/2021 08:53 AM HGBA1C 5.8 (H) 11/11/2019 01:50 PM documented in this encounter Plan of Treatment Upcoming Encounters Date Type Department Care Team (Late st Contact Info) Description 09/11/2023 9:00 AM EDT Nurse Only Hematology Oncology [facility] [address] [place] [address] Cobb, Nurse Lab Hem/Onc [address] [place] [address] 09/11/2023 10:00 AM EDT Hem/Onc Treatment Hematology Oncology [facility] [address] [address] Cobb, Chair 19 Hem/Onc [address] [place] [address] 09/11/2023 2:00 PM EDT Hospital Encounter Radiology, [address] [address] 09/14/2023 7:00 AM EDT Laboratory Laboratory, [address] [phone] [facility], Lab [address] [place] [address] 09/14/2023 8:00 AM EDT Immunization/Injection Hematology/Oncology Treatment, [address] [address] [facility], Chair1 Hem Onc [address] [place] [address] 09/17/2023 10:30 AM EDT Laboratory Laboratory, [address] [address] [facility], Lab [address] [place] [address] 09/17/2023 11:30 AM EDT Office Visit Hematology/Oncology, [address] [address] Ritika Godfrey CRNP [address] [place] [address] 09/17/2023 12:00 PM EDT Hem/Onc Treatment Hematology/Oncology Treatment, [address], [place] [address] [facility], Chair9 Hem Onc [address] [place] [address], [place] [address] 09/18/2023 10:00 AM EDT Laboratory Laboratory, [address] [place] [address] [facility], Lab [address] [place] [address] 09/18/2023 11:30 AM EDT Hem/Onc Treatment Hematology/Oncology Treatment, [address], [place] [address] [facility], Chair5 Hem Onc [address] [place] [address], [place] [address] 09/21/2023 9:10 AM EDT Laboratory Laboratory [facility] [place] [address] [place] [address] [place], Lab [facility] [address] [place] [address] 09/25/2023 10:30 AM EDT Laboratory Laboratory, [address], [place] [address] [facility], Lab [address] [place] [address], [place] [address] 09/25/2023 11:30 AM EDT Telemedicine Hematology/Oncology, [address] [place] [address] Mike Chaudhary MD [address] [place] [address] Cart, Telemed [facility] Hem Onc Clinic [address] [place] [address], [place] [address] 09/25/2023 2:40 PM EDT Office Visit Rheumatology [facility] [address] [facility] [place], [place] [address] Oliver Zhang MD [address] [facility] [place], [place] [address] 09/28/2023 2:00 PM EDT Appointment Radiology, [address] [place] [address] 09/30/2023 11:00 AM EDT Hem/Onc Treatment Hematology/Oncology Treatment, [address] [address] [facility], Chair2 Hem Onc [address] [place] [address] [place] [address] 10/02/2023 2:00 PM EDT Appointment Radiology, [address] [place] [phone] 10/05/2023 7:10 AM EDT Laboratory Laboratory, [address] [place] [phone] [facility], Lab [address] [place] [address], [place] [address] 10/05/2023 8:00 AM EDT Immunization/Injection Hematology/Oncology Treatment, [address] [address] [facility], Chair2 Hem Onc [address] [place], [place] [address] [address] 10/08/2023 12:00 PM EDT Laboratory Laboratory, [address] [phone] [facility], Lab [address] [place], [place] [address] 10/08/2023 1:00 PM EDT Office Visit Hematology/Oncology, [facility] [address] [facility] [place] [address] Lakeshia Stone CRNP [address] [place] [address] 02/19/2024 12:00 PM EST Office Visit [facility] [address], [place] [address] [place] [address] Kayla Reeder DO [address] [place] [address] Health Maintenance Due Date Last Done Comments COVID-19 Vaccine (#1) 1993 Influenza Vaccine (FLU shot) (#1) 2023 11/17/2016, 11/17/2016, 11/30/2015, Additional history exists Depression Screening 07/07/2024 07/08/2023, 06/11/19 24 Albumin/Creatinine Ratio Discontinued 08/02/2021 documented as of this encounter Medical Devices Implanted Type Area Joy Operator Helper Device Identifier Shelf Expiration Date Model / Serial / Lot Mediport Pwr Mri 8fr [id number] - [id number] Implanted:Qty : 1 on 07/17/2023 by Medhat Angel MD at OR [facility] Right: Chest CR BARD : PERIPHERAL VASCULAR 07/16/2024 [id number] / / [id number] Port Implant W8f Poly Cath - [id number] Implanted:Qty : 1 on 07/17/2023 by Medhat Angel MD at OR [facility] CR BARD : PERIPHERAL VASCULAR [id number] 07/16/2024 [id number] / / [id number] documented as of this encounter Visit Diagnoses Diagnosis Hypokalemia Hypopotassemia documented in this encounter Advance Directives * [...] Agents on File Name Relationship Healthcare Agent [facility] Communication Trixie Le [facility] Repr esentative (appointed verbally by patient or by statute hierarchy) [email or web address] Care Teams Donkey Doctor Relationship Specialty Start Date End Date Kayla Reeder DO [address] [facility] [place] [address] PCP - General Family Medicine 06/11/23 documented as of this encounter
--- OUTSIDE RECORDS SUMMARY | 2023-09-18 21:16 | External Medical Summary | Summary of Care ---
Author Name Unknown Organization [facility] Address [address] [place] [address] Phone [phone] Care Team Providers Care Senior Credit Analyst Name Role Phone VarinderKayla Primary Care Provider +1- [phone] Reason for Visit * Reason Onset Date Comments Left Message 09/11/2023 Lab reminder for DA-EPOCH Encounter Details Date Type Department Care Team (Late st Contact Info) Description 09/11/2023 Telephone Hematology Oncology [facility] [address] [place] [address] Mike Chaudhary MD [address] [place] [address] Left Message (Lab reminder for DA-EPOCH ) Allergies No known active allergiesdocumented as of [...] chemo infusion and gets disconnected in the [facility]. 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 Chaudhary Treatment: DA-EPOCH Cycle 4 Patient [...] , 09/24/23 Reviewed patient chart today to contact patient for lab reminder for the upcoming week on the days and dates as outlined above Will follow up on 09/13(Date) for next labs due on Day 8 Radha Grimm Neuroscience Specialist III Hematology Oncology Oral Chemotherapy Clinic Medication Therapy Disease Management [facility] 09/11/2023 4:15 PM Time Spent on Encounter: 6 - 10 minutes documented in this encounter Plan of Treatment Upcoming Encounters Date Type Department Care Team (Late st Contact Info) Description 09/14/2023 7:00 AM EDT Laboratory Laboratory, [address] [place] [address] [facility], Lab [address] [place], [place] [address] [address] 09/14/2023 8:00 AM EDT Immunization/Injection Hematology/Oncology Treatment, [address] [place] [address] [facility], Chair1 Hem Onc [address] [place], [place] [address] [address] 09/17/2023 10:30 AM EDT Laboratory Laboratory, [address] [place] [address] [facility], Lab [address] [place], [place] [address] [address] 09/17/2023 11:30 AM EDT Office Visit Hematology/Oncology, [address] [place] [address] Ritika Godfrey CRNP [address] [place], [place] [address] 09/17/2023 12:00 PM EDT Hem/Onc Treatment Hematology/Oncology Treatment, [address], [place] [address] [facility], Chair9 Hem Onc [address] [place] [address], [place] [address] 09/18/2023 10:00 AM EDT Laboratory Laboratory, [address], [place] [address] [facility], Lab [address] [place] [address], [place] [address] 09/18/2023 11:30 AM EDT Hem/Onc Treatment Hematology/Oncology Treatment, [address], [place] [address] [facility], Chair5 Hem Onc [address] [place] [address], [place] [address] 09/21/2023 9:10 AM EDT Laboratory Laboratory [facility], [place] [address] [facility] [place] [phone] [place], Lab [facility] [address] [facility] [place] [address] 09/25/2023 10:30 AM EDT Laboratory Laboratory, [address], [place] [address] [facility], Lab [address] [place] [address], [place] [address] 09/25/2023 11:30 AM EDT Telemedicine Hematology/Oncology, [address] [address] Mike Chaudhary MD [address] [place] [address] Porsche Hurtado [facility] Hem Onc Clinic [address] [place] [address] 09/25/2023 2:40 PM EDT Office Visit Rheumatology [address] [place] [address] Oliver Zhang MD [facility] [place] [address] 09/28/2023 2:00 PM EDT Appointment Radiology, [place] [address] [place] [address] 09/30/2023 11:00 AM EDT Hem/Onc Treatment Hematology/Oncology Treatment, [address] [address] [facility], Chair2 Hem Onc [address] [place] [address] 10/02/2023 2:00 PM EDT Appointment Radiology, [place] [address] [place] [address] 10/05/2023 7:10 AM EDT Laboratory Laboratory, [address] [address] [facility], Lab [address] [place] [address] 10/05/2023 8:00 AM EDT Immunization/Injection Hematology/Oncology Treatment, [address] [address] [facility], Chair2 Hem Onc [address] [place] [address] 10/08/2023 12:00 PM EDT Laboratory Laboratory, [facility] 400 [place] [phone] [facility], Lab [address] [facility] [place] [address] 10/08/2023 1:00 PM EDT Office Visit Hematology/Oncology, [facility] [address] [place] [address] Lakeshia Stone CRNP [address] [facility], [place] [id number] 02/19/2024 12:00 PM EST Office Visit [facility], [place] [address] [place] [address] Kayla Reeder DO [address] [place] [address] Health Maintenance Due Date Last Done Comments COVID-19 Vaccine (#1) 1993 Influenza Vaccine (FLU shot) (#1) 2023 11/17/2016, 11/17/2016, 11/30/2015, Additional history exists Depression Screening 07/07/2024 07/08/2023, 06/11/19 24 Albumin/Creatinine Ratio Discontinued 08/02/2021 documented as of this encounter Medical Devices Implanted Type Area Tape Control Skin Or Spar Mill Operator Device Identifier Shelf Expiration Date Model / Serial / Lot Mediport Pwr Mri 8fr [id number] - [id number] Implanted:Qty : 1 on 07/17/2023 by Medhat Angel MD at OR [facility] Right: Chest CR BARD : PERIPHERAL VASCULAR 07/16/2024 [id number] / / [id number] Port Implant W8f Poly Cath - [id number] Implanted:Qty : 1 on 07/17/2023 by Medhat Angel MD at OR [facility] CR BARD : PERIPHERAL VASCULAR [id number] 07/16/2024 [id number] / / [id number] documented as of this encounter Advance Directives [...] Agents on File Name Relationship Healthcare [facility] Communication Trixie Le [facility] Repr esentative (appointed verbally by patient or by statute hierarchy) [email or web address] Care Teams Senior Credit Analyst Relationship Specialty Start Date End Date Kayla Reeder DO [address] [facility] [place] [address] PCP - General Family Medicine 06/11/23 documented as of this encounter
--- OUTSIDE RECORDS SUMMARY | 2023-09-18 21:16 | External Medical Summary | Summary of Care ---
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) Procedures KS DOXORUBIC HCL 10 MG VL CHEMO KS VINCRISTINE SULFATE 1 MG INJ KS FOSAPREPITANT INJECTION KS ETOPOSIDE 10 MG INJ KS INJECTION, RITUXIMAB-PVVR, BIOSIMILAR, (RUXIENCE), 10 MG KS INJ, NYVEPRIA KS INJ, CYCLOPHOSPHAMIDE, NOS Elvis Villalobos MD [address] [place] [address] [facility] [place] [address] Referral ID Status Reason Start Date Expiration Date V isits Requested Visits Authorized [id number] Authorized 07/23/2023 01/22/2024 999 999 Encounter Details Date Type Department Care Team (Latest Contact Info) Description 09/09/2023 11:00 AM EDT Hem/Onc Treatment Hematology/Oncolog y Treatment, [facility] [address] [place] [address] [facility], Chair1 Hem Onc [address] [place] [id number] Encounter for antineoplastic chemotherapy*; 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 30 Tablet 08/11/2023 Active Morphine Sulfate 15 MG Oral Tablet [...] before bedtime. 180 Tablet 3 08/28/2023 Active documented as of this encounter (statuses as of 09/09/2023) Active Problems Patient Care Coordination No te Formatting of this note migh t be different from the original. Patient receiving home chemo infusion and gets disconnected in the [facility]. Problem Noted Date Diagnosed Date Antineoplastic [...] as of this encounter (statuses as of 09/09/2023) Resolved Problems Problem Noted Date Diagnosed Date [...] as of this encounter (statuses as of 09/09/2023) Immunizations Name Administration Dates Next Due DT [...] No 07/08/2023 Does the household have a scheurer hospitalr source of income? (Household - for [...] as of this encounter Nursing Notes * Roula Ramirez RN - 09/09/2023 11:31 AM EDT Chemotherapy/Immunotherapy agents: DOXORUBICIN, ETOPOSIDE, and VINCRISTINE Consent for chemotherapy drug treatment complete, dated, and signed? yes, date - 07/01/23 Treatment lab parameters met? Yes Has treatment weight changed > than 10%? No Treatment preauthorized? Yes VITALS There were no vitals filed for this visit. Urine protein: N/A Patient education completed for treatment? Yes Blood transfusion consent signed and complete? NA Return appointment scheduled? Yes Patient had provider visit today? Yes - Ok to release order and treat per provider Functional Status: Functional status at today's visit: Restricted in [...] or adverse side effects during treatment. Patient Education: Patient instructed on use of heat and massage functions where applicable. Patient shown how to operate the heat function of the chair and to alert nursing staff if the chair feels too warm. Patient instructed on the risk of potential watkins while using the heat function. documented in this encounter Plan of Treatment Upcoming Encounters Date Type Department Care Team (Late st Contact Info) Description 09/11/2023 9:00 AM EDT Nurse Only Hematology Oncology [facility] [address] [place] [address] [place], Nurse Lab Hem/Onc [address] [place] [address] 09/11/2023 10:00 AM EDT Hem/Onc Treatment Hematology Oncology [facility], [address] [address] [place], Chair 19 Hem/Onc [address] [place] [address] 09/11/2023 2:00 PM EDT Appointment Radiology, [address] [address] 09/14/2023 7:00 AM EDT Laboratory Laboratory, [address] [phone] [facility], Lab [address] [place] [address] 09/14/2023 8:00 AM EDT Immunization/Injectio n Hematology/Oncology Treatment, [address] [address] [facility], Chair1 Hem Onc [address] [place] [address] 09/17/2023 10:30 AM EDT Laboratory Laboratory, [address] [phone] [facility], Lab [address] [place] [address] 09/17/2023 11:30 AM EDT Office Visit Hematology/Oncology, [address] [address] Ritika Godfrey CRNP [address] [place] [address] 09/17/2023 12:00 PM EDT Hem/Onc Treatment Hematology/Oncology Treatment, [address] [place] [address] [facility], Chair9 Hem Onc [address] [place] [address] 09/18/2023 10:00 AM EDT Laboratory Laboratory, [address] [place] [address] [facility], Lab [address] [place] [address] 09/18/2023 11:30 AM EDT Hem/Onc Treatment Hematology/Oncology Treatment, [address] [place] [address] [facility], Chair5 Hem Onc [address] [place] [address] 09/25/2023 2:40 PM EDT Office Visit Rheumatology [address] [place] [address] Oliver Zhang MD [address] [place] [address], [place] [address] 09/28/2023 2:00 PM EDT Appointment Radiology, [address] [address] 10/02/2023 2:00 PM EDT Appointment Radiology, [address] [address] 02/19/2024 12:00 PM EST Office Visit Family [facility] Maribell Garcia [address] [place] [address] Kayla Reeder DO [address] [place] [address] Health Maintenance Due Date Last Done Comments COVID-19 Vaccine (#1) 1995 Influenza Vaccine (FLU shot) (#1) 2023 11/17/2016, 11/17/2016, 11/30/2015, Additional history exists Depression Screening 07/07/2024 07/08/2023, 06/11/19 Albumin/Creatinine Ratio Discontinued 08/02/2021 documented as of this encounter Medical Devices Implanted Type Area Medical Affairs Leader Device Identifier Shelf Expiration Date Model / Serial / Lot Mediport Pwr Mri 8fr [id number] - [id number] Implanted:Qty : 1 on 07/17/2023 by Medhat Angel MD at OR [facility] Right: Chest CR BARD : PERIPHERAL VASCULAR 07/16/2024 [id number] / / [id number] Port Implant W8f Poly Cath - [id number] Implanted:Qty : 1 on 07/17/2023 by Medhat Angel MD at OR 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) Burkitt's tumor or lymphoma of intra-abdominal lymph nodes documented in this encounter Administered Medications Active Administered Medications - up to 3 most recent administrations Medication Order MAR Action Action Date Dose Rate Site diphenhydrAMINE (Benadryl) inj 50 mg 50 mg, IV Push, ONCE PRN Other, Hypersensitivity Reaction, Starting on Thu09/09/23 at 1118, Until Tess 09/10/23 at 1117, For 24 hours EPINEPHrine 1 MG/ML inj 0.3 mg 0.3 mg, Intramuscular, ONCE PRN Other, Hypersensitivity Reaction or Anaphylaxis, Starting on Thu09/09/23 at 1118, Until Tess 09/10/23 at 1117, For 24 hours etoposide (VEPESID) 290 mg, vinCRIStine sulfate 1.9 mg, DOXOrubicin (Adriamycin) 58 mg [facility] 48 HOUR infusion Intravenous, Administer over 48 Hours, PROTECT FROM LIGHT! Administer through 0.22 micron low protein binding filter! Home Infusion Pharmacy to specify base solution and volume. To be given over 48 hours every other day for 4 days (2 bags) through home infusion company., CONTINUOUS, Starting on Thu09/09/23 at 1300, Until Discontinued Start Infusion 09/09/2023 11:56 AM EDT 31.2 mL/hr hEParin 100 UNIT/ML Lock Flush inj 500 Units 500 Units (5 mL), IV Lock, PRN Other, IV Flush, Starting on Thu09/09/23 at 1118, Until Tess 09/10/23 at 1117, For 24 hours, Do not flush if lock, PICC, or central line not in place; IV infusing or unable to flush. Hydrocortisone Sod Suc (PF) (Solu-Cortef) inj 100 mg 100 mg, IV Push, ONCE PRN Other, Hypersensitivity Reaction, Starting on Thu09/09/23 at 1118, Until Tess 09/10/23 at 1117, For 24 hours LORAzepam (Ativan) tab 0.5 mg 0.5 mg, Oral, ONCE PRN Anxiety, Nausea, Starting on Thu09/09/23 at 1230, Until Discontinued NSS infusion Intravenous, at 50 mL/hr, PRN, Starting on Thu09/09/23 at 1230, Until Discontinued, Maintenance line oxygen GAS Inhalation, OXYGEN, First dose on Thu09/09/23 at 1600, Until Discontinued, Device/Managed by: Low [...] is greater than or equal to 93% prochlorperazine (Compazine) tab 10 mg 10 mg, Oral, Q6H PRN Nausea, Starting on Thu09/09/23 at 1118, Until Discontinued sodium chloride 0.9 % flush central line 10 mL 10 mL, IV Push, PRN Other, IV Flush, Starting on Thu09/09/23 at 1118, Until Tess 09/10/23 at 1117, For 24 hours, Do not flush if lock, PICC, or central line not in place; IV infusing or unable to flush. Inactive Administered Medications - up to 3 most recent administrations Medication Order MAR Action Action Date Dose Rate Site NSS infusion FOR HYDRATION Intravenous, at 500 mL/hr Administer over 2 Hours, ONCE, 1 dose, On Thu09/09/23 at 1200 Start Infusion 09/09/2023 11:44 AM EDT 1,000 mL 500 mL/hr ondansetron (Zofran) tab 8 mg 8 mg, Oral, ONCE, On Thu09/09/23 at 1230, For 1 dose, Give 30 minutes prior to chemotherapy. Given 09/09/2023 11:26 AM EDT 8 mg documented in this encounter Advance Directives [...] Healthcare Agent Relationshi p Communication Trixie Le [facility] Repr esentative (appointed verbally by patient or by statute hierarchy) [email or web address] Care Teams Media Supervisor Relationship Specialty Start Date End Date Kayla Reeder DO [address] [facility] [place] [address] PCP - General Family Medicine 06/11/23 documented as of this encounter
--- OUTSIDE RECORDS SUMMARY | 2023-09-18 21:16 | External Medical Summary ---
Author Name Unknown Address Unknown Organization K01:LABORATORY [facility] - [address] [place] [address] Laboratory Report Ordering Provider Test Date Status JENNMATTI Morrlel 09/11/2023 09:22:38 Final Observation Date Value Abnormality Reference (Units ) Status Uric Acid 09/11/2023 09:22:38 5.7 3.4-7.0 (m g/dL) Final Performing Location [facility] - [address] [place] [address]
--- OUTSIDE RECORDS SUMMARY | 2023-09-18 21:16 | External Medical Summary | Summary of Care ---
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) Procedures AL DOXORUBIC HCL 10 MG VL CHEMO AL VINCRISTINE SULFATE 1 MG INJ AL FOSAPREPITANT INJECTION AL ETOPOSIDE 10 MG INJ AL INJECTION, RITUXIMAB-PVVR, BIOSIMILAR, (RUXIENCE), 10 MG AL INJ, NYVEPRIA AL INJ, CYCLOPHOSPHAMIDE, NOS Elvis Villalobos MD [address] [place] [address] Anc Hem/Onc [facility] [address] [facility] [place] [address] Referral ID Status Reason Start Date Expiration Date V isits Requested Visits Authorized [id number] Authorized 07/23/2023 01/22/2024 999 999 Encounter Details Date Type Department Care Team (Latest Contact Info) Description 09/11/2023 10:00 AM EDT Hem/Onc Treatment Hematology Oncology [facility] [address] [place] [address] [place], Chair 19 Hem/Onc [address] [place] [address] Encounter for antineoplastic chemotherapy*; Burkitt lymphoma of [...] chemo infusion and gets disconnected in the [facility]. 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 (Household - for ages [...] Team (Late st Contact Info) Description 09/11/2023 2:00 PM EDT Hospital Encounter Radiology, [address] [phone] 09/14/2023 7:00 AM EDT Laboratory Laboratory, [address] [phone] [facility], Lab [address] [place] [address] 09/14/2023 8:00 AM EDT Immunization/Injection Hematology/Oncology Treatment, [address] [place] [address] [facility], Chair1 Hem Onc [address] [place] [address] [place] [id number] 09/17/2023 10:30 AM EDT Laboratory Laboratory, [address] [place] [id number] [facility], Lab [address] [place] [address] 09/17/2023 11:30 AM EDT Office Visit Hematology/Oncology, [address] [place] [address] Ritika Godfrey CRNP [address] [place] [address], [place] [address] 09/17/2023 12:00 PM EDT Hem/Onc Treatment Hematology/Oncology Treatment, [address] [place] [address] [facility], Chair9 Hem Onc [address] [place] [address], [place] [id number] 09/18/2023 10:00 AM EDT Laboratory Laboratory, [address] [place] [address] [facility], Lab [address] [place] [address] 09/18/2023 11:30 AM EDT Hem/Onc Treatment Hematology/Oncology Treatment, [address], [place] [address] [facility], Chair5 Hem Onc [address] [place] [address], [place] [id number] 09/21/2023 9:10 AM EDT Laboratory Laboratory [facility], [place] [address] [place] [phone] [place], [address] [place] [address] 09/25/2023 10:30 AM EDT Laboratory Laboratory, [address], [place] [address] [facility], Lab [address] [place], [place] [address] 09/25/2023 11:30 AM EDT Telemedicine Hematology/Oncology, [address] [address] Mike Chaudhary MD [address] [place] [address] Cart, Telemed [facility] Hem Onc Clinic [address] [place] [address] 09/25/2023 2:40 PM EDT Office Visit Rheumatology [place] [address] [facility] [place] [address] Oliver Zhang MD [facility] [place], [place] [address] 09/28/2023 2:00 PM EDT Appointment Radiology, [address] [place] [phone] 09/30/2023 11:00 AM EDT Hem/Onc Treatment Hematology/Oncology Treatment, [address] [address] [facility], Chair2 Hem Onc [address] [place] [address] 10/02/2023 2:00 PM EDT Appointment Radiology, [address] [place] [phone] 10/05/2023 7:10 AM EDT Laboratory Laboratory, [address] [place] [id number] [facility], Lab [address] [place] [address] 10/05/2023 8:00 AM EDT Immunization/Injection Hematology/Oncology Treatment, [address] [place] [address] [facility], Chair2 Hem Onc [address] [place] [address] 10/08/2023 12:00 PM EDT Laboratory Laboratory, [address], [place] [phone] [facility], Lab [address] [place] [address] 10/08/2023 1:00 PM EDT Office Visit Hematology/Oncology, [address] [place] [address] Lakeshia Stone CRNP [address] [place] [id number] 02/19/2024 12:00 PM EST Office Visit [facility] [address] [place] [address] [place] [address] Kayla Reeder DO [address] [place] [address] Health Maintenance Due Date Last Done Comments COVID-19 Vaccine (#1) 1993 Influenza Vaccine (FLU shot) (#1) 2023 11/17/2016, 11/17/2016, 11/30/2015, Additional history exists Depression Screening 07/07/2024 07/08/2023, 06/11/19 24 Albumin/Creatinine Ratio Discontinued 08/02/2021 documented as of this encounter Medical Devices Implanted Type Area Fiberglass Boat Finisher Device Identifier Shelf Expiration Date Model / Serial / Lot Mediport Pwr Mri 8fr [id number] - [id number] Implanted:Qty : 1 on 07/17/2023 by Medhat Angel MD at OR [facility] Right: Chest CR BARD : PERIPHERAL VASCULAR 07/16/2024 [id number] / / [id number] Port Implant W8f Poly Cath - [id number] Implanted:Qty : 1 on 07/17/2023 by Medhat Angel MD at OR [facility] BARD : PERIPHERAL VASCULAR [id number] 07/16/2024 [id number] / / [id number] documented as of this encounter Visit Diagnoses Diagnosis Encounter for antineoplastic chemotherapy- Primary 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) Burkitt's tumor or lymphoma of intra-abdominal lymph nodes Hypokalemia Hypopotassemia documented in this encounter Administered Medications Active Administered Medications - up to 3 most recent administrations Medication Order MAR Action Action Date Dose Rate Site diphenhydrAMINE (Benadryl) inj 50 mg 50 mg, IV Push, ONCE PRN Other, Hypersensitivity Reaction, Starting on Thu09/11/23 at 0929, Until 09/12/23 at 0928, For 24 hours EPINEPHrine 1 MG/ML inj 0.3 mg 0.3 mg, Intramuscular, ONCE PRN Other, Hypersensitivity Reaction or Anaphylaxis, Starting on Thu09/11/23 at 0929, Until 09/12/23 at 0928, For 24 hours hEParin 100 UNIT/ML Lock Flush inj 500 Units 500 Units (5 mL), IV Lock, PRN Other, IV Flush, Starting on Thu09/11/23 at 0929, Until 09/12/23 at 0928, For 24 hours, Do not flush if lock, PICC, or central line not in place; IV infusing or unable to flush. Given 09/11/2023 1:32 PM EDT 500 Units Hydrocortisone Sod Suc (PF) (Solu-Cortef) inj 100 mg 100 mg, IV Push, ONCE PRN Other, Hypersensitivity Reaction, Starting on Thu09/11/23 at 0929, Until 09/12/23 at 0928, For 24 hours LORAzepam (Ativan) tab 0.5 mg 0.5 mg, Oral, ONCE PRN Anxiety, Nausea, Starting on Thu09/11/23 at 1030, Until Discontinued NSS infusion Intravenous, at 50 mL/hr, PRN, Starting on Thu09/11/23 at 1030, Until Discontinued, Maintenance line oxygen GAS Inhalation, OXYGEN, First dose on Thu09/11/23 at 1000, Until Discontinued, Device/Managed by: Low Flow Device, [...] Flush, Starting on Thu09/11/23 at 0929, Until Thu09/12/23 at 0928, For 24 hours, Do not flush if lock, PICC, or central line not in place; IV infusing or unable to flush. Given 09/11/2023 1:31 PM EDT 10 mL Inactive Administered Medications - up to 3 [...] 12:20 PM EDT 2,140 mg 500 mL/hr NSS infusion FOR HYDRATION Intravenous, at 500 [...] 12:21 PM EDT 20 mEq 50 mL/hr documented in this encounter Advance Directives * [...] Agents on File Name Relationship Healthcare Agent [facility] p Communication Trixie Le [facility] Repr esentative (appointed verbally by patient or by statute hierarchy) [email or web address] Care Teams Branch Controller Relationship Specialty Start Date End Date Kayla Reeder DO [address] [facility] [place] [address] PCP - General Family Medicine 06/11/23 documented as of this encounter
--- OUTSIDE RECORDS SUMMARY | 2023-09-18 21:16 | External Medical Summary ---
Author Name Unknown Address Unknown Organization K01:LABORATORY [facility] - [address] [place] [facility] [place] [address] Laboratory Report Ordering Provider Test Date Status CHANTEL JORDAN 09/11/2023 09:22:38 Final Observation Date Value Abnormality Reference (Units ) Status BUN 09/11/2023 09:22:38 15 6-20 (mg/dL) Final Creatinine 09/11/2023 09:22:38 0.8 0.6-1.2 (mg/dL) Final Glomerular filtration rate/1.73 sq M.predicted [Volume Rate/Area] in Serum, Plasma or Blood by Creatinine-based formula (CKD-EPI) 09/11/2023 09:22:38 >90 >=60 (mL/min) Final eGFR is calculated based on the CKD-EPI 2020 equation. Sodium 09/11/2023 09:22:38 142 135-146 (m mol/L) Final Potassium 09/11/2023 09:22:38 2.9 Below low normal 3.5 -5.1 (mmol/L) Final Cl 09/11/2023 09:22:38 105 98-107 (mm ol/L) Final CO2 09/11/2023 09:22:38 26 22-32 (mmo l/L) Final Anion gap 09/11/2023 09:22:38 11 7-15 (mmol /L) Final Glucose 09/11/2023 09:22:38 102 70-120 (mg /dL) Final Albumin 09/11/2023 09:22:38 4.2 3.8-5.0 (g /dL) Final AST (Aspartate aminotransferase) 09/11/2023 09:22:38 27 10-50 (U/L) Fin al Alk Phos 09/11/2023 09:22:38 74 35-130 (U/ L) Final Bilirubin, Total 09/11/2023 09:22:38 0.3 <=1 .2 (mg/dL) Final Calcium 09/11/2023 09:22:38 9.4 8.4-10.2 ( mg/dL) Final Protein 09/11/2023 09:22:38 5.9 Below low normal 6.0 -8.3 (g/dL) Final ALT (Alanine aminotransferase) 09/11/2023 09:22:38 33 10-50 (U/L) Jaswinder mullen Performing Location LABORATORY [facility] - [address] [facility] [address]
--- OUTSIDE RECORDS SUMMARY | 2023-09-18 21:16 | External Medical Summary ---
Author Name Unknown Address Unknown Organization K01:[facility] - [address] [facility] [address] Laboratory Report Ordering Provider Test Date Status MATTI BARAJAS 09/11/2023 09:22:38 Final Observation Date Value Abnormality Reference (Units ) Status SYNC LEUKOCYTES IN BLOOD BY AUTOMATED COUNT 09/11/2023 09:22:38 3.98 Below low normal 4.00-10.80 (K/uL) Final Neutrophils/100 leukocytes in Blood by Manual count 09/11/2023 09:22:38 80.0 Above high normal 40.0-75.0 (%) Final Lymphocytes/100 leukocytes in Blood by Manual count 09/11/2023 09:22:38 15.0 Below low normal 18.0-42.0 (%) Final Monocytes/100 leukocytes in Blood by Manual count 09/11/2023 09:22:38 4.0 1.0-11.0 (%) Final Metamyelocytes/100 leukocytes in Blood by Manual count 09/11/2023 09:22:38 1.0 Above high normal <=0.0 (%) Final Neutrophils [#/volume] in Blood by Manual count 09/11/2023 09:22:38 3.18 1.80-7.70 (K/uL) Final Lymphocytes [#/volume] in Blood by Manual count 09/11/2023 09:22:38 0.60 Below low normal 1.00-4.80 (K/uL) Final Monocytes [#/volume] in Blood by Manual count 09/11/2023 09:22:38 0.16 0.00-1.10 (K/uL) Final Metamyelocytes [#/volume] in Blood by Manual count 09/11/2023 09:22:38 0.04 Above high normal <=0.00 (K/uL) Final Performing Location [facility] - [address] [facility] [address]
--- OUTSIDE RECORDS SUMMARY | 2023-09-18 21:16 | External Medical Summary | Summary of Care ---
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 90 Capsule 1 03/02/2023 Active Celecoxib 200 MG Oral Capsule (CeleBREX)Indicatio ns:Migraine with aura and without status migrainosus, not intractable Take 1 Capsule by mouth in the morning. Every morning.. 30 Capsule 3 05/01/2023 Active Pantoprazole Sodium 40 MG Oral Tablet Delayed Release (Protonix)Indicatio ns:Gastroesophageal reflux disease with esophagitis without hemorrhage TAKE ONE TABLET BY MOUTH EVERY MORNING 30 MINUTES BEFORE THE FIRST MEAL OF THE DAY. DO NOT CRUSH,SPLIT OR CHEW THE TABLET 30 Tablet 5 05/22/2023 Active Proventil HFA 108 (90 Base) MCG/ACT Inhalation Aerosol SolutionIndications :Chronic cough Inhale 2 Puffs by mouth every 4 hours as needed for Wheezing, Shortness of Breath or Cough. 18 g 1 06/09/2023 Active Fluticasone-Salmete rol 250-50 MCG/ACT Inhalation Aerosol Powder Breath Activated (Advair Diskus)Indications: Chronic cough INHALE ONE PUFF BY MOUTH EVERY MORNING AND ONE PUFF BEFORE BEDTIME 60 Each 5 06/11/2023 Active Sulfamethoxazole-Tr imethoprim 400-80 MG Oral Tablet (Bactrim) Take 1 [...] 2 Each 3 07/07/2023 Active Magic Swizzle (Lidocaine-Benadryl -Maalox) oral solution Swish and spit 15 mL 4 times a day as needed for Sore throat (oral pain). 900 mL 07/14/2023 Active Prochlorperazine Maleate 5 MG Oral Tablet (Compazine)Indicati ons:Chemotherapy induced nausea and vomiting Take 1 Tablet by mouth every 8 hours as needed for Nausea. 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 60 Tablet 1 07/24/2023 Active Lidocaine-Prilocain e 2.5-2.5 % External Cream (Emla)Indications:B urkitt lymphoma of intra-abdominal lymph nodes (HCC),Encounter for venous access device care Apply topically to affected area as needed prior to accessing port for chemotherapy and blood work. 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 30 Tablet 07/24/2023 Active Sulfamethoxazole-Tr imethoprim 400-80 MG Oral Tablet (Bactrim)Indication s:Encounter for antineoplastic chemotherapy,Burkit t lymphoma of intra-abdominal lymph nodes (HCC) Take 1 Tablet by mouth in the morning. Take 1 tab by mouth daily throughout all chemotherapy cycles.. 30 Tablet 5 07/24/2023 Active Ondansetron HCl 8 MG Oral TabletIndications:E ncounter for antineoplastic chemotherapy,Burkit t lymphoma of intra-abdominal lymph nodes (HCC) Take 1 Tablet by mouth every 8 hours as needed for Nausea. Take 2 tabs Daily for 4 days after starting chemotherapy. 8 Tablet 5 07/24/2023 Active predniSONE 20 MG Oral Tablet (Deltasone)Indicati ons:Encounter for antineoplastic chemotherapy,Burkit t lymphoma of intra-abdominal lymph nodes (HCC) Take 7.25 Tablets by mouth in the morning and 7.25 Tablets before bedtime. Take twice a day with food on Days 1-5 of EPOCH treatment only. 75 Tablet 5 07/27/2023 Active Famotidine 20 MG Oral Tablet (Pepcid)Indications :Acid indigestion Take 1 Tablet by mouth in the morning. 30 Tablet 08/11/2023 09/10/19 24 Active Morphine Sulfate 15 MG Oral Tablet (Msir)Indications:C ancer related pain Take 1 Tablet by mouth every 6 hours as needed for Pain, Breakthrough. 30 Tablet 08/14/2023 Active Potassium Chloride [facility] 10 MEQ Oral Tablet Extended ReleaseIndications: Hypokalemia TAKE TWO TABLETS BY MOUTH EVERY MORNING AND TWO TABLETS BEFORE BEDTIME. DO ALL THIS FOR 14 DAYS 56 Tablet 08/24/2023 Active Potassium Chloride [facility] ER 10 MEQ Oral Tablet Extended ReleaseIndications: Hypokalemia Take 2 Tablets by mouth in the morning and 2 Tablets before bedtime. 56 Tablet 08/22/2023 Active Buprenorphine HCl 2 MG Sublingual Tablet Sublingual (Subutex)Indication s:Cancer related pain Place 0.5 Tablets under the tongue in the morning and 0.5 Tablets in the evening. 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 When ANC less than 500. 30 Tablet 08/28/2023 Active Topiramate 100 MG Oral Tablet (topAMAX) Take 1 Tablet by mouth in the morning and 1 Tablet before bedtime. 180 Tablet 3 08/28/2023 Active Loratadine 10 MG Oral Tablet (Claritin)Indicatio ns:Chronic cough Take 1 Tablet by mouth in the morning. 30 Tablet 11 05/01/2023 09/09/19 Discontinu ed(Medicat ion/Dose Changed) documented as of this encounter (statuses as of 09/09/2023) Active Problems Patient Care Coordination No te Formatting of this note migh t be different from the original. Patient receiving home chemo infusion and gets disconnected in the [facility]. 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 (Household - for ages [...] Time Taken Comments Blood Pressure 123/76 09/09/2023 10:44 AM EDT Pulse 81 09/09/2023 10:44 AM EDT Temperature 36.9 C (98.4 F) 09/09/2023 1 0:44 AM EDT Respiratory Rate - - Oxygen Saturation 100% 09/09/2023 10: 44 AM EDT Inhaled Oxygen Concentration - - Weight 110.3 kg (243 lb 2.7 oz) 024 10:44 AM EDT Height - - Body Mass [...] this encounter Patient Instructions * Patient Instructions* Tegan Burleson LPN - 09/09/2023 10:44 AM EDT Our Palliative Medicine Clinic is available Thursday through Thursday during business hours, so we are unavailable on weekends and holidays. Please ensure that you request refills early in the week as itmay take 1-2 days for them to be addressed and filled, for authorizations to be approved, or for the pharmacy to order them if needed. You can contact our office at [phone], which is our clinic in [place], or you can message us on [email or web address]. If you have an emergency outside of these hours, we recommend calling your primary care clinic, Oncology office, or going to the ER if you have a medical emergency. 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 At last visit, he was stable on pain regimen with no new symptoms. He has continue taking Subutex 1 mg BID and MSIR 1 tablet at bedtime. He hasn't needed any further medication during the day. He has had no nausea/vomiting for weeks and hasn't required medication. He notes that he has been hanging out with his 4 year old son and taking him swimming, etc. This has been fun. His step father is with him today. Examination: BP 123/76 | Pulse 81 | Temp 36.9 C (98.4 F) | Wt 110.3 kg (243 lb 2.7 oz) | SpO2 100% | BMI 33.91 kg/m | BSA 2.35 m Constitutional: no acute distress HENT: normocephalic, atraumatic. Eyes: anicteric, sclera and conjunctiva normal. Neck: no stridor Chest: normal respiratory effort ASSESSMENT/PLAN: Farhad Franco is a 32 year old male seen in follow-up for goals of care and pain and symptom management. 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 Chaudhary Cancer related pain Continues Subutex 1 mg BID. Continue PRN MSIR. Using this once at night for pain prior to bed. Not needing otherwise. Financial concerns. Asking about gas cards- will relay info to Oncology team. Randolph Reich, [employer] previously reached out via [employer] about helping with assistance programs. Patient isn't sure if they ever followed up. Will check with his mom. Goals of care Continue treatment in hope of remission. Follow up in 4-6 weeks Next visit with Dr. Silva. I spent a total of 35 minutes on the date of service in preparation, delivery, and documentation ofthe care provided to Farhad Franco excluding any time spent in the performance of separately billed services. Tessa Rubio PA-C [facility] Palliative Medicine [phone] * Tegan Burleson LPN - 09/09/2023 10:45 AM EDT TBS in infusion center documented in this encounter Plan of Treatment Upcoming Encounters Date Type Department Care Team (Late st Contact Info) Description 09/11/2023 9:00 AM EDT Nurse Only Hematology Oncology [facility], [place] [address] [place] [address] [place], Nurse Lab Hem/Onc [address] [place] [address] 09/11/2023 10:00 AM EDT Hem/Onc Treatment Hematology [facility], [address], [place] [address] [place], Chair [address] Hem/Onc [address] [place] [address], [place] [address] 09/11/2023 2:00 PM EDT Appointment Radiology, [address] [place] [address] 09/14/2023 7:00 AM EDT Laboratory Laboratory, [address] [address] [facility], Lab [address] [place] [address] 09/14/2023 8:00 AM EDT Immunization/Injectio n Hematology/Oncology Treatment, [address] [place] [address] [facility], Chair1 Hem Onc [address] [place] [address] 09/17/2023 10:30 AM EDT Laboratory Laboratory, [address] [place] [address] [facility], Lab [address] [place] [address], [place] [address] 09/17/2023 11:30 AM EDT Office Visit Hematology/Oncology, [address], [place] [address] Ritika Godfrey CRNP [address] [place] [address] 09/17/2023 12:00 PM EDT Hem/Onc Treatment Hematology/Oncology Treatment, [address], [place] [address] [facility], Chair9 Hem Onc [address] [place] [address] 09/18/2023 10:00 AM EDT Laboratory Laboratory, [address] [place] [id number] [facility], Lab [address] [place] [address], [place] [address] 09/18/2023 11:30 AM EDT Hem/Onc Treatment Hematology/Oncology Treatment, [address], [place] [address] [facility], Chair5 Hem Onc [address] [place] [address] [place] [address] 09/25/2023 2:40 PM EDT Office Visit Rheumatology [address] [place] [address] Oliver Zhang MD [address] [place] [address], [place] [address] 09/28/2023 2:00 PM EDT Appointment Radiology, [address] [address] 10/02/2023 2:00 PM EDT Appointment Radiology, [place] [address] [place] [address] 02/19/2024 12:00 PM EST Office Visit [facility] [address] [place] [address] Kayla Reeder DO [address] [place] [address] Health Maintenance Due Date Last Done Comments COVID-19 Vaccine (#1) 1993 Influenza Vaccine (FLU shot) (#1) 2023 11/17/2016, 11/17/2016, 11/30/2015, Additional history exists Depression Screening 07/07/2024 07/08/2023, 06/11/19 24 Albumin/Creatinine Ratio Discontinued 08/02/2021 documented as of this encounter Medical Devices Implanted Type Area Rf Test Engineer Device Identifier Shelf Expiration Date Model / Serial / Lot Mediport Pwr Mri 8fr [id number] - [id number] Implanted:Qty : 1 on 07/17/2023 by Medhat Angel MD at OR [facility] Right: Chest CR BARD : PERIPHERAL VASCULAR 07/16/2024 [id number] / / [id number] Port Implant W8f Poly Cath - [id number] Implanted:Qty : 1 on 07/17/2023 by Medhat Angel MD at OR [facility] CR BARD : PERIPHERAL VASCULAR [id number] 07/16/2024 [id number] / / [id number] documented as of this encounter Visit Diagnoses Diagnosis 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)- Primary Burkitt's tumor or lymphoma of intra-abdominal lymph nodes Cancer related pain Neoplasm related pain (acute) (chronic) Palliative care encounter Encounter for palliative care documented in this encounter Advance Directives * [...] Agents on File Name Relationship Healthcare Agent [facility] p Communication Trixie Bashir [facility] Repr esentative (appointed verbally by patient or by statute hierarchy) [email or web address] Care Teams Engraver Optical Frames Relationship Specialty Start Date End Date Kayla Reeder DO [address] [facility] [place] [address] PCP - General Family Medicine 06/11/23 documented as of this encounter"
--- OUTSIDE RECORDS SUMMARY | 2023-09-18 21:16 | External Medical Summary | Summary of Care ---
Author Name Unknown Organization [facility] Address [address] [place] [address] Phone [phone] Care Team Providers Care Button Sewing Machine Operator Name Role Phone VarinderKayla Primary Care Provider +1- [phone] Encounter Details Date Type Department Care Team (Late st Contact Info) Description 09/11/2023 Orders Only Hematology/Oncology [facility] [place] [address] [place] [address] Tim Batres MD [address] [place] [address] Hypokalemia* Allergies No known active allergiesdocumented as of [...] chemo infusion and gets disconnected in the [facility]. Problem Noted Date Diagnosed [...] as of this encounter Progress Notes * Tim Batres MD - 09/11/2023 11:05 AM EDT Potassium level has remained on lower side around 2.9 (09/11/2023) He is already on oral potassium 20 mEq twice a day. Will give him IV KCl 20 mEq x 1 dose.( At [facility]) documented in this encounter Plan of Treatment Upcoming Encounters Date Type Department Care Team (Late st Contact Info) Description 09/11/2023 2:00 PM EDT Hospital Encounter Radiology, [address] [address] 09/14/2023 7:00 AM EDT Laboratory Laboratory, [address] [place] [address] [facility], Lab [address] [place] [address], [place] [address] 09/14/2023 8:00 AM EDT Immunization/Injection Hematology/Oncology Treatment, [address] [place] [address] [facility], Chair1 Hem Onc [address] [place] [address], [place] [address] 09/17/2023 10:30 AM EDT Laboratory Laboratory, [address], [place] [address] [facility], Lab [address] [place] [address] 09/17/2023 11:30 AM EDT Office Visit Hematology/Oncology, [address], [place] [address] Ritika Godfrey, IAP DISPLAYS ANALYST [address] [place] [address], [place] [address] 09/17/2023 12:00 PM EDT Hem/Onc Treatment Hematology/Oncology Treatment, [address] [place] [address] [facility], Chair9 Hem Onc [address] [place] [address], [place] [address] 09/18/2023 10:00 AM EDT Laboratory Laboratory, [address], [place] [address] [facility], Lab [address] [place] [address], [place] [address] 09/18/2023 11:30 AM EDT Hem/Onc Treatment Hematology/Oncology Treatment, [address] [address] [facility], Chair5 Hem Onc [address] [place] [address] 09/21/2023 9:10 AM EDT Laboratory Laboratory [address], [place] [address] [place] [phone] [place], Lab [facility] [address] [facility] [place] [address] 09/25/2023 10:30 AM EDT Laboratory Laboratory, [address] [phone] [facility], Lab [address] [place] [address] 09/25/2023 11:30 AM EDT Telemedicine Hematology/Oncology, [address] [address] Mike Chaudhary MD [address] [place] [address] [place], Telemed [facility] Hem Onc Clinic [address] [place] [address] 09/25/2023 2:40 PM EDT Office Visit Rheumatology [place] [address] [facility] [place] [address] Oliver Zhang MD [facility] [place] [address] 09/28/2023 2:00 PM EDT Appointment Radiology, [place] [address] [place] [address] 09/30/2023 11:00 AM EDT Hem/Onc Treatment Hematology/Oncology Treatment, [address] [address] [facility], Chair2 Hem Onc [address] [place] [address] 10/02/2023 2:00 PM EDT Appointment Radiology, [address], [place] [address] 10/05/2023 7:10 AM EDT Laboratory Laboratory, [address] [address] [facility], Lab [address] [place] [address] 10/05/2023 8:00 AM EDT Immunization/Injection Hematology/Oncology Treatment, [address] [place] [address] [facility], Chair2 Hem Onc [address] [place] [address], [place] [address] 10/08/2023 12:00 PM EDT Laboratory Laboratory, [address] [place] [address] [facility], Lab [address] [place] [address], [place] [address] 10/08/2023 1:00 PM EDT Office Visit Hematology/Oncology, [address] [place] [address] Lakeshia Stone CRNP [address] [place] [address], [place] [address] 02/19/2024 12:00 PM EST Office Visit [facility] [address] [place] [address] Kayla Reeder DO [address] [place] [address] Health Maintenance Due Date Last Done Comments COVID-19 Vaccine (#1) 1993 Influenza Vaccine (FLU shot) (#1) 2023 11/17/2016, 11/17/2016, 11/30/2015, Additional history exists Depression Screening 07/07/2024 07/08/2023, 06/11/19 24 Albumin/Creatinine Ratio Discontinued 08/02/2021 documented as of this encounter Medical Devices Implanted Type Area Websphere Commerce Developer Device Identifier Shelf Expiration Date Model / Serial / Lot Mediport Pwr Mri 8fr [id number] - [id number] Implanted:Qty : 1 on 07/17/2023 by Medhat Angel MD at OR [facility] Right: Chest CR BARD : PERIPHERAL VASCULAR 07/16/2024 [id number] / / [id number] Port Implant W8f Poly Cath - [id number] Implanted:Qty : 1 on 07/17/2023 by Medhat Angel MD at OR [facility] CR BARD : PERIPHERAL VASCULAR [id number] 07/16/2024 [id number] / / [id number] documented as of this encounter Visit Diagnoses Diagnosis Hypokalemia- Primary Hypopotassemia documented in this encounter Advance Directives [...] Agents on File Name Relationship Healthcare Agent [facility] p Communication Trixie Bashir [facility] Repr esentative (appointed verbally by patient or by statute hierarchy) [email or web address] Care Teams Button Sewing Machine Operator Relationship Specialty Start Date End Date Kayla Reeder DO [address] [facility] [place] [address] PCP - General Family Medicine 06/11/23 documented as of this encounter
--- OUTSIDE RECORDS SUMMARY | 2023-09-18 21:17 | External Medical Summary ---
Author Name Unknown Address Unknown Organization K01:[facility] [place] [address] [place] [address] Laboratory Report Ordering Provider Test Date Status CHANTEL JORDAN 09/07/2023 07:20:25 Final Observation Date Value Abnormality Reference (Units ) Status BUN 09/07/2023 07:20:25 14 6-20 (mg/dL) Final Creatinine 09/07/2023 07:20:25 0.8 0.6-1.2 (mg/dL) Final Glomerular filtration rate/1.73 sq M.predicted [Volume Rate/Area] in Serum, Plasma or Blood by Creatinine-based formula (CKD-EPI) 09/07/2023 07:20:25 >90 >=60 (mL/min) Final eGFR is calculated based on the CKD-EPI 2020 equation. Sodium 09/07/2023 07:20:25 138 135-146 (m mol/L) Final Potassium 09/07/2023 07:20:25 3.8 3.5-5.1 (m mol/L) Final Cl 09/07/2023 07:20:25 104 98-107 (mm ol/L) Final CO2 09/07/2023 07:20:25 23 22-32 (mmo l/L) Final Anion gap 09/07/2023 07:20:25 11 7-15 (mmol /L) Final Glucose 09/07/2023 07:20:25 117 70-120 (mg /dL) Final Albumin 09/07/2023 07:20:25 4.2 3.8-5.0 (g /dL) Final AST (Aspartate aminotransferase) 09/07/2023 07:20:25 19 10-50 (U/L) Final Alk Phos 09/07/2023 07:20:25 130 35-130 (U/ L) Final Bilirubin, Total 09/07/2023 07:20:25 0.2 <=1 .2 (mg/dL) Final Calcium 09/07/2023 07:20:25 9.4 8.4-10.2 ( mg/dL) Final Protein 09/07/2023 07:20:25 6.6 6.0-8.3 (g /dL) Final ALT (Alanine aminotransferase) 09/07/2023 07:20:25 18 10-50 (U/L) Final Performing Location [facility] [place] [address] [facility] [address]
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
--- OUTSIDE RECORDS SUMMARY | 2023-09-18 21:17 | External Medical Summary ---
Author Name Unknown Address Unknown Organization [id number]:LABORATORY [facility] - [address] [place] [address] Laboratory Report Ordering Provider Test Date Status CHANTEL JORDAN 09/07/2023 13:28:00 Final Some reference ranges and ot her method performance specifications have not been established for this fluid. The test results must be integrated into the clinical context for interpretation. Observation Date Value Abnormality Reference (Units ) Status CSF, color 09/07/2023 13:28:00 Colorless Colorless Final CSF, clarity 09/07/2023 13:28:00 Clear Clear Final Color of Spun Cerebral spinal fluid 09/07/2023 13:28:00 Colorless Colorless Final Tube number of Cerebral spinal fluid 09/07/2023 13:28:00 1 Final Nucleated cells [#/volume] in Body fluid by Automated count 09/07/2023 13:28:00 2 <5 (cells/uL) Final Erythrocytes [#/volume] in Cerebral spinal fluid 09/07/2023 13:28:00 0 <5 (cells/uL) Final Performing Location LABORATORY [facility] - [address] [place] [address]
--- OUTSIDE RECORDS SUMMARY | 2023-09-18 21:17 | External Medical Summary | Summary of Care ---
Author Name Unknown Organization [facility] Address [address] [place] [address] Phone [phone] Care Team Providers Care Steeping Press Operator Name Role Phone Kayla Reeder DO Primary Care Provider +1- [phone] Encounter Details Date Type Department Care Team (Late st Contact Info) Description 09/07/2023 7:15 AM EDT Nurse Only Hematology Oncology [facility] [place] [address] [place], [place] [phone] [place], Nurse Lab Hem/Onc [address] [place] [address] Arrived Allergies No known active allergiesdocumented as of [...] Care Team (Latest Contact Info) Description 09/07/2023 8:00 AM EDT Hem/Onc Treatment Hematology Oncology [facility] [place] [address] [facility] [place] [address] [place], [facility] 19 Hem/Onc [address] [place] [address] Encounter for antineoplastic chemotherapy*; 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) 09/07/2023 2:00 PM EDT Hospital Encounter Radiology, [address] [phone] 09/09/2023 10:30 AM EDT Office Visit Hematology/Oncolog y, [address] [address] Lakeshia Stone CRNP [address] [place] [address] 09/09/2023 11:00 AM EDT Hem/Onc Treatment Hematology/Oncolog y Treatment, [address] [address] [facility], Chair1 Hem Onc [address] [place] [address] 09/09/2023 1:00 PM EDT Office Visit Palliative Medicine, [address] 5th [place] [address] Tessa Rubio PA-C [address] [place] [address] 09/11/2023 9:00 AM EDT Nurse Only Hematology Oncology [facility], [address] [address] [place], Nurse Lab Hem/Onc [address] [place] [address] 09/11/2023 10:00 AM EDT Hem/Onc Treatment Hematology Oncology [facility], [address] [address] [place], Chair 19 Hem/Onc [address] [place] [address] 09/11/2023 2:00 PM EDT Appointment Radiology, [address] [phone] 09/14/2023 7:00 AM EDT Laboratory Laboratory, [address], [place] [address] [facility], Lab [address] [place] [address], [place] [address] 09/14/2023 8:00 AM EDT Immunization/Inject ion Hematology/Oncolog y Treatment, [address], [place] [address] [facility], Chair1 Hem Onc [address] [place] [address], [place] [address] 09/17/2023 10:30 AM EDT Laboratory Laboratory, [address], [place] [address] [facility], Lab [address] [place] [address], [place] [address] 09/17/2023 11:30 AM EDT Office Visit Hematology/Oncolog y, [address], [place] [address] Ritika Godfrey CRNP [address] [place] [address], [place] [address] 09/17/2023 12:00 PM EDT Hem/Onc Treatment Hematology/Oncolog y Treatment, [address], [place] [address] [facility], Chair9 Hem Onc [address] [place] [address], [place] [address] 09/18/2023 10:00 AM EDT Laboratory Laboratory, [address], [place] [address] [facility], Lab [address] [facility], [place] [address] 09/18/2023 11:30 AM EDT Hem/Onc Treatment Hematology/Oncolog y Treatment, [facility] [address] [facility] [place], [place] [address] [facility], Chair5 Hem Onc [address] [facility], [place] [address] 09/25/2023 2:40 PM EDT Office Visit Rheumatology [place] [phone] [employer] [facility], [place] [address] Oliver Zhang MD [facility] [employer] [facility], [place] [address] 09/28/2023 2:00 PM EDT Appointment Radiology, [address] [address] 10/02/2023 2:00 PM EDT Appointment Radiology, [address] [address] 02/19/2024 12:00 PM EST Office Visit [facility] [place] [address] [facility] [place] [address] Kayla Reeder DO [address] 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) 09/07/2023 7:20 AM EDT Health Maintenance Due Date Last Done Comments COVID-19 Vaccine (#1) 1993 Influenza Vaccine (FLU shot) (#1) 2023 11/17/2016, 11/17/2016, 11/30/2015, Additional history exists Depression Screening 07/07/2024 07/08/2023, 06/11/19 Albumin/Creatinine Ratio Discontinued 08/02/2021 documented as of this encounter Medical Devices Implanted Type Area [employer] Business Representative Device Identifier Shelf Expiration Date Model / Serial / Lot Mediport Pwr Mri 8fr [id number] - [id number] Implanted:Qty : 1 on 07/17/2023 by Medhat Angel MD at OR [facility] Right: Chest CR BARD : PERIPHERAL VASCULAR 07/16/2024 [id number] / / [id number] Port Implant W8f Poly Cath - [id number] Implanted:Qty : 1 on 07/17/2023 by Medhat Angel MD at OR [facility] CR BARD : PERIPHERAL VASCULAR [id number] 07/16/2024 [id number] / / [id number] documented as of this encounter Procedures Procedure Name Priority Date/Time Associated Diagnosis Comments DIFFERENTIAL, AUTOMATED STAT 09/07/2023 7:20 AM EDT 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) CBC STAT 09/07/2023 7:20 AM EDT 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) CBC STAT 09/07/2023 7:20 AM EDT 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) documented in this encounter Results * (ABNORMAL) DIFFERENTIAL, AUTOMATED (09/07/2023 7:20 AM EDT) WBC 11.05(H) 4.00 - 10.80 K/uL 09/07/2023 7:26 AM EDT LAB[facility]ATORY [facility] Neutrophils % 65.5 40.0 - 75.0 % 09/07/2023 7:26 AM EDT LAB[facility]ORY [facility] Lymphocytes % 11.1(L) 18.0 - 42.0 % 09/07/2023 7:26 AM EDT LABORATORY [facility] Monocytes % 17.6(H) 1.0 - 11.0 % 09/07/2023 7:26 AM EDT LABORATORY [facility] Eosinophils % 0.0 0.0 - 6.0 % 09/07/2023 7:26 AM EDT LABORATORY [facility] Basophils % 0.4 0.0 - 2.0 % 09/07/2023 7:26 AM EDT LABORATORY [facility] Immature Granulocytes % 5.4(H) 0.0 - 2.0 % 09/07/2023 7:26 AM EDT LABORATORY [facility] Absolute Neutrophils 7.24 1.80 - 7.70 K/uL 09/07/2023 7:26 AM EDT LABORATORY [facility] Absolute Lymphocytes 1.23 1.00 - 4.80 K/ul 09/07/2023 7:26 AM EDT LABORATORY [facility] Absolute Monocytes 1.94(H) 0.00 - 1.10 K/uL 09/07/2023 7:26 AM EDT LABORATORY [facility] Absolute Eosinophils 0.00 0.00 - 0.70 K/uL 09/07/2023 7:26 AM EDT LABORATORY [facility] Absolute Basophils 0.04 0.00 - 0.20 K/uL 09/07/2023 7:26 AM EDT LABORATORY [facility] Absolute Immature Granulocytes 0.60(H) 0.00 - 0.20 K/uL 09/07/2023 7:26 AM EDT LABORATORY [facility] Blood Blood sample taken from central line / Unknown Central Line / Unknown 09/07/2023 7:20 AM EDT 09/07/2023 7:23 AM EDT Mike Chaudhary MD LAB BLOOD O RDERABLES LABORATORY [facility] [address] [place] [address] * (ABNORMAL) CBC (09/07/2023 7:20 AM EDT) WBC 11.05(H) 4.00 - 10.80 K/uL 09/07/2023 7:26 AM EDT LABORATORY [facility] RBC 2.82 4.50 - 5.25 M/uL 09/07/2023 7:26 AM EDT LABORATORY [facility] HGB 8.7(L) 14.0 - 16.8 g/dL 09/07/2023 7:26 AM EDT LABORATORY [facility] HCT 27.4(L) 40.0 - 48.4 % 09/07/2023 7:26 AM EDT LABORATORY [facility] MCV 97.2 82.0 - 99.5 fL 09/07/2023 7:26 AM EDT LABORATORY [facility] MCH 30.9 27.0 - 34.0 pg 09/07/2023 7:26 AM EDT LABORATORY [facility] MCHC 31.8 32.0 - 36.0 g/dL 09/07/2023 7:26 AM EDT LABORATORY [facility] RDW 20.5 11.5 - 15.5 % 09/07/2023 7:26 AM EDT LABORATORY [facility] PLT 182 140 - 400 K/uL 09/07/2023 7:26 AM EDT LABORATORY [facility] MPV 10.0 6.6 - 11.1 fL 09/07/2023 7:26 AM EDT LABORATORY [facility] nRBCs 1(H) <=0 /100 WBCs 09/07/2023 7:26 AM EDT LABORATORY [facility] Blood Blood sample taken from central line / Unknown Central Line / Unknown 09/07/2023 7:20 AM EDT 09/07/2023 7:23 AM EDT Mike Chaudhary MD LAB BLOOD O RDERABLES LABORATORY [facility] [address] [place] [address] documented in this encounter Visit Diagnoses Diagnosis Encounter for antineoplastic chemotherapy- 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 Care Teams Steeping Press Operator Relationship Specialty Start Date End Date Kayla Reeder DO [address] [facility] [place] [address] PCP - General Family Medicine 06/11/23 documented as of this encounter
--- OUTSIDE RECORDS SUMMARY | 2023-09-18 21:17 | External Medical Summary | Summary of Care ---
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 [place] [address] Referral ID Status Reason Start Date Expiration Date V isits Requested Visits Authorized [id number] Authorized 07/23/2023 01/22/2024 [id number] Encounter Details Date Type Department Care Team (Latest Contact Info) Description 09/07/2023 8:00 AM EDT Hem/Onc Treatment Hematology Oncology [facility] [address] [place] [address] [place], Chair 19 Hem/Onc [address] [place] [address] Encounter for antineoplastic chemotherapy*; Burkitt lymphoma of [...] infusion and gets disconnected in the [facility]. Problem Noted Date Diagnosed Date Antineoplastic chemotherapy [...] esophagitis 12/18/2014 Adjustment disorder with depressed mood 06/29/20 10 documented as of this encounter (statuses [...] Sign Reading Time Taken Comments Blood Pressure 116/72 09/07/2023 7:53 AM EDT Pulse 81 09/07/2023 7:53 AM EDT Temperature 36.5 C (97.7 F) 09/07/2023 7:53 AM ED T Respiratory Rate 16 09/07/2023 7:53 AM EDT Oxygen Saturation 99% 09/07/2023 7:53 AM EDT Inhaled Oxygen Concentration - - Weight 108.7 kg (239 lb 9.6 oz) 09/07/2023 7:53 AM EDT Height 180.3 cm (5' 11") 09/07/2023 7:53 AM EDT Body Mass Index 33.42 09/07/2023 7:53 AM EDT documented in this [...] of this encounter Nursing Notes * Mary Hooks RN - 09/07/2023 8:26 AM EDT CHAIR 20 Safety and Risk for Injury Patient will remain free from injury. Ensure appropriate safety devices are available. Provide and maintain safe environment. Goals: See above. Possible barriers to meeting goals: IV pole. Stability of the patient: Moderately stable - low risk of patient condition declining or worsening Summary regarding today's goals: Met: No falls. Functional status at today's visit: Ambulatory and capable of all selfcare but unable to carry out any work activities. Up and about more than 50% of waking hours The drug name, dose, infusion volume, rate and route of administration, expiration date and time, appearance and physical integrity of the drug and rate set on the pump and sequencing of drug administration (as applicable) were verified by me and second sign-in RN. Patient was assessed for symptoms or adverse side effects during treatment. * Tara Lang RN - 09/07/2023 7:54 AM EDT Pre-chemo checklist Chemo/Immune agents ::R-EPOCH Consent for chemotherapy drug treatment complete, dated, and signed? 07/01/2023 Is this a research protocol? no Treatment lab parameters met? Yes Has treatment weight changed > than 10% No Treatment preauthorized? Yes Blood pressure N/A Urine protein N/A Chemo education completed for new therapies? N/A Return appointment scheduled Yes Orders released Yes, meets parameters outlined in [place] plan documented in this encounter Plan of Treatment Upcoming Encounters Date Type Department Care Team (Late st Contact Info) Description 09/09/2023 10:30 AM EDT Office Visit Hematology/Oncology, [address] [address] Lakeshia Stone CRNP [address] [place] [address] 09/09/2023 11:00 AM EDT Hem/Onc Treatment Hematology/Oncology Treatment, [address] [address] [facility], Chair1 Hem Onc [address] [place] [address] 09/09/2023 1:00 PM EDT Office Visit Palliative Medicine, [address] 5th [place] [address] Tessa Rubio PA-C [address] [place] [address] 09/11/2023 9:00 AM EDT Nurse Only Hematology Oncology [facility], [place] [address] [place] [address] [place], Nurse Lab Hem/Onc [address] [facility] [place] [address] 09/11/2023 10:00 AM EDT Hem/Onc Treatment Hematology Oncology [facility], [address], [place] [address] [place], Chair 19 Hem/Onc [address] [place] [address], [place] [address] 09/11/2023 2:00 PM EDT Appointment Radiology, [address] [place] [address] 09/14/2023 7:00 AM EDT Laboratory Laboratory, [address] [address] [facility], Lab [address] [place] [address] 09/14/2023 8:00 AM EDT Immunization/Injectio n Hematology/Oncology Treatment, [address] [place] [address] [facility], Chair1 Hem Onc [address] [place] [address] 09/17/2023 10:30 AM EDT Laboratory Laboratory, [address] [place] [address] [facility], Lab [address] [place] [address], [place] [address] 09/17/2023 11:30 AM EDT Office Visit Hematology/Oncology, [address], [place] [address] Ritika Godfrey CRNP [address] [place] [address] 09/17/2023 12:00 PM EDT Hem/Onc Treatment Hematology/Oncology Treatment, [address], [place] [address] [facility], Chair9 Hem Onc [address] [place] [address] 09/18/2023 10:00 AM EDT Laboratory Laboratory, [address], [place] [address] [facility], Lab [address] [place] [address], [place] [address] 09/18/2023 11:30 AM EDT Hem/Onc Treatment Hematology/Oncology Treatment, [address], [place] [address] [facility], Chair5 Hem Onc [address] [place] [address] [place] [address] 09/25/2023 2:40 PM EDT Office Visit Rheumatology [address] [place] [address] Oliver Zhang MD [address] [place] [address], [place] [address] 09/28/2023 2:00 PM EDT Appointment Radiology, [address] [place] [address] 10/02/2023 2:00 PM EDT Appointment Radiology, [place] [address] [place] [address] 02/19/2024 12:00 PM EST Office Visit [facility] [address] [place] [address] Kayla Reeder DO [address] [place] [address] Scheduled Orders Name Type Priority Associated Diagnoses Orde r Schedule BLOOD PRESSURE Procedures STAT Encounter for antineoplastic chemotherapy 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) Expected: 09/07/2023 (Approximate), Expires: 03/05/2024 Health Maintenance Due Date Last Done Comments COVID-19 Vaccine (#1) 1993 Influenza Vaccine (FLU shot) (#1) 2023 11/17/2016, 11/17/2016, 11/30/2015, Additional history exists Depression Screening 07/07/2024 07/08/2023, 06/11/19 24 Albumin/Creatinine Ratio Discontinued 08/02/2021 documented as of this encounter Medical Devices Implanted Type Area Paint Technician Device Identifier Shelf Expiration Date Model / Serial / Lot Mediport Pwr Mri 8fr [id number] - [id number] Implanted:Qty : 1 on 07/17/2023 by Medhat Angel MD at OR [facility] Right: Chest CR BARD : PERIPHERAL VASCULAR 07/16/2024 [id number] / / [id number] Port Implant W8f Poly Cath - [id number] Implanted:Qty : 1 on 07/17/2023 by Medhat Angel MD at OR [facility] CR BARD : PERIPHERAL VASCULAR [id number] 07/16/2024 [id number] / / [id number] documented as of this encounter Visit Diagnoses Diagnosis Encounter for antineoplastic chemotherapy- Primary 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 Given 09/07/2023 8:19 AM EDT 650 mg diphenhydrAMINE (Benadryl) cap 50 mg 50 mg, Oral, ONCE, On Thu09/07/23 at 1030, For 1 dose Given 09/07/2023 8:19 AM EDT 50 mg etoposide (VEPESID) 290 mg, vinCRIStine sulfate 1.9 mg, DOXOrubicin (Adriamycin) 58 mg [facility] 48 HOUR infusion Intravenous, Administer over 48 Hours, PROTECT FROM LIGHT! Administer through 0.22 micron low protein binding filter! Home Infusion Pharm[facility] to specify base solution and volume. To be given over 48 hours every other day for 4 days (2 bags) through home infusion company., CONTINUOUS, Starting on Thu09/07/23 at 1100, Until Thu09/07/23 at 2137 Start Infusion 09/07/2023 11:40 AM EDT Famotidine (Pepcid) tab 20 mg 20 mg, Oral, ONCE, On Thu09/07/23 at 1030, For 1 dose Given 09/07/2023 8:19 AM EDT 20 mg Fosaprepitant Dimeglumine (Emend) 150 mg, ondansetron (Zofran) 16 mg in NSS 250 mL Infusion 150 mg, IV Piggyback, ONCE, 1 dose, On Thu09/07/23 at 1030, Administer over 30 Minutes, Give 30 minutes prior to chemotherapy. Infuse over 30 minutes. Start Infusion 09/07/2023 8:41 AM EDT 150 mg 536 mL/hr NSS infusion FOR HYDRATION Intravenous, at 500 mL/hr Administer over 2 Hours, ONCE, 1 dose, On Thu09/07/23 at 0830 Start Infusion 09/07/2023 8:19 AM EDT 1,000 mL 500 mL/hr riTUXimab-pvvr (Ruxience) 900 mg in NSS 250 mL ivpb 900 mg (rounded from 892.5 mg = 375 mg/m2 2.38 m2 Treatment Plan BSA from Recorded weight), IV Piggyback, ONCE, 1 dose, On Thu09/07/23 at 1100, ADM AT 100mL / HR FOR THE FIRST 30 MIN THEN AT 200mL / HR FOR THE REMAINDER Rate Change 09/07/2023 10:16 AM EDT 200 mL/hr Start Infusion 09/07/2023 9:44 AM EDT 900 mg 100 mL/hr sodium chloride 0.9 % flush central line 10 mL 10 mL, IV Push, PRN Other, IV Flush, Starting on Thu09/07/23 at 0755, Until Thu09/07/23 at 2137, For 24 hours, Do not flush if lock, PICC, or central line not in place; IV infusing or unable to flush. Given 09/07/2023 11:38 AM EDT 10 mL Given 09/07/2023 8:16 AM EDT 10 mL documented in this encounter [...] Agents on File Name Relationship Healthcare Agent [facility] p Communication Trixie D [facility] Repr esentative (appointed verbally by patient or by statute hierarchy) [email or web address] Care Teams Bss Solution Architect Relationship Specialty Start Date End Date Kayla Reeder DO [address] [facility] [place] [address] PCP - General Family Medicine 06/11/23 documented as of this encounter
--- OUTSIDE RECORDS SUMMARY | 2023-09-18 21:17 | External Medical Summary | Summary of Care ---
Author Name Unknown Organization [facility] Address [address] [place] [address] Phone [phone] Care Team Providers Care Grinder Lap Name Role Phone Kayla Reeder DO Primary Care Provider +1- [phone] Reason for Visit * Reason Onset Date Comments Medication Question 06/08/2023 Encounter Details Date Type Department Care Team (Late st Contact Info) Description 06/08/2023 Telephone Pharmacy Call Center [address] [facility] [place] [address] [place] [address] Medication Question Allergies No known active allergiesdocumented as of [...] 03/02/2023 Active Loratadine 10 MG Oral Tablet (Claritin)Indicatio ns:Chronic cough Take 1 Tablet by mouth in the morning. 30 Tablet 11 05/01/2023 Active Celecoxib 200 MG Oral Capsule (CeleBREX)Indicatio [...] THE TABLET 30 Tablet 5 05/22/2023 Active documented as of this encounter (statuses [...] Cigarettes 2 7.2 0 05/17/2014 - 07/17/2021 Smokeless Tobacco: Never Comments:4-5 cigs/day Alcohol Use Standard Drinks/Week Comments Yes 0 (1 standard drink = 0.6 oz pur e alcohol) rarely PHQ-2 Answer Date Recorded PHQ Adult Total [...] on file documented as of this encounter Miscellaneous Notes * Telephone Encounter - Sharyn Arenas OSA - 06/08/2023 6:13 PM EDT Faxed lab results to Dr. Gray, [facility] at [phone] as requested. * Telephone Encounter - Xin Dominguez LPN - 06/08/2023 5:45 PM EDT Pt would like recent labs from 05/31 faxed to rheumatology at [place], unsure of fax but phone is [phone] Pending medication for review. Pending Prescriptions: Disp Refills Fluticasone-Salmeterol 250-50 MCG/ACT Inh*60 Each5 Sig: INHALE ONE PUFF BY MOUTH EVERY MORNING AND ONE PUFF BEFORE BEDTIME Last Visit: Visit date not found (in office), Visit date not found (telemedicine) Next Visit: Visit date not found Last date the medication was ordered: 07/02/22 Patient Active Problem List Diagnosis Code Adjustment disorder with depressed mood F43.21 Migraine with aura and without status migrainosus, not intractable G43.109 Gastroesophageal reflux disease with esophagitis K21.00 Tobacco use disorder F17.200 History of petit-mal seizures Z86.69 Cerebral vasculitis I67.7 Visual field defect due to and not concurrent with cerebrovascular accident (CVA) H53.40, I69.398 HTN, goal below 140/90 I10 Kidney stones N20.0 Labs: Lab Results Component Value Date/Time CREATININE - [facility] 1.0 06/01/2023 08:57 AM CREATININE - [facility] 1.1 11/11/2019 01:50 PM CREATININE, RANDOM URINE - [facility] 211 08/02/2021 09:59 AM CREATININE-OUTSIDE LAB 1.00 03/30/2023 12:00 AM Lab Results Component Value Date/Time POTASSIUM - [facility] 4.0 06/01/2023 08:57 AM POTASSIUM - [facility] 4.8 11/11/2019 01:50 PM POTASSIUM-OUTSIDE LAB 3.4 (A) 03/30/2023 12:00 AM Lab Results Component Value Date/Time TSH - [facility] 3.86 04/22/2022 10:37 AM TSH - [facility] 1.01 11/11/2019 01:50 PM Lab Results Component Value Date/Time LDL (CALCULATED)-OUTSIDE LAB 91 12/29/2014 12:00 AM LDL (CALCULATED)-OUTSIDE LAB 145 (A) 03/31/2012 12:00 AM LDL CHOLESTEROL (CALCULATED) - [facility] 131 (H) 08/02/2021 08:53 AM LDL CHOLESTEROL (CALCULATED) - [facility] 117 11/11/2019 01:50 PM LDL CHOLESTEROL (CALCULATED) - [facility] 94 11/15/2013 08:59 AM LDL CHOLESTEROL (DIRECT MEASURE) - [facility] NOT APPLICABLE 11/11/2019 01:50 PM Lab Results Component Value Date/Time ALT - [facility] 31 04/22/2022 10:37 AM ALT - [facility] 26 11/11/2019 01:50 PM ALT-OUTSIDE LAB 32 07/25/2016 12:00 AM Hemoglobin AIC Results: Lab Results Component Value Date/Time HEMOGLOBIN A1C - [facility] 5.9 (H) 08/02/2021 08:53 AM HEMOGLOBIN A1C - [facility] 5.8 (H) 11/11/2019 01:50 PM * Telephone Encounter - Fransisco Cano, art supervisor - 06/08/2023 4:30 PM EDT Pt called for refills on meds. No PCP listed. Transferred over to schedule with new PCP. Thank You, Fransisco Cano [facility] II [facility] (Formerly Telepharmacy) 06/08/2023, 4:31 PM documented in this encounter Plan of Treatment Upcoming Encounters Date Type Department Care Team (Late st Contact Info) Description 09/09/2023 10:30 AM EDT Office Visit Hematology/Oncology, [facility] [address] [place] [address] Lakeshia Stone CRNP [address] [place] [id number] 09/09/2023 11:00 AM EDT Hem/Onc Treatment Hematology/Oncology Treatment, [address] [address] [facility], Chair1 Hem Onc [address] [place] [address], [place] [address] 09/09/2023 1:00 PM EDT Office Visit Palliative Medicine, [address] [address] Tessa Rubio, PA-C [address] [place] [address] 09/11/2023 9:00 AM EDT Nurse Only Hematology Oncology [facility], [address] [address] [place], Nurse Lab Hem/Onc [address] [place] [address] 09/11/2023 10:00 AM EDT Hem/Onc Treatment Hematology Oncology [facility], [address] [address] [place], Chair 19 Hem/Onc [address] [place] [address] 09/11/2023 2:00 PM EDT Appointment Radiology, [address] [address] 09/14/2023 7:00 AM EDT Laboratory Laboratory, [address] [place] [address] [facility], Lab [address] [place] [address], [place] [address] 09/14/2023 8:00 AM EDT Immunization/Injectio n Hematology/Oncology Treatment, [address] [address] [facility], Chair1 Hem Onc [address] [place] [address], [place] [address] 09/17/2023 10:30 AM EDT Laboratory Laboratory, [address] [place] [address] [facility], Lab [address] [place] [address] 09/17/2023 11:30 AM EDT Office Visit Hematology/Oncology, [address] [address] Ritika Godfrey CRNP [address] [place] [address] 09/17/2023 12:00 PM EDT Hem/Onc Treatment Hematology/Oncology Treatment, [address], [place] [address] [facility], Chair9 Hem Onc [address] [place] [address], [place] [address] 09/18/2023 10:00 AM EDT Laboratory Laboratory, [address], [place] [address] [facility], Lab [address] [place] [address], [place] [address] 09/18/2023 11:30 AM EDT Hem/Onc Treatment Hematology/Oncology Treatment, [address], [place] [address] [facility], Chair5 Hem Onc [address] [place] [address], [place] [address] 09/25/2023 2:40 PM EDT Office Visit Rheumatology [address] [place] [address] Oliver Zhang MD [address] [facility] [place], [place] [address] 09/28/2023 2:00 PM EDT Appointment Radiology, [address] [address] 10/02/2023 2:00 PM EDT Appointment Radiology, [address] [address] 02/19/2024 12:00 PM EST Office Visit Family [facility] [place] Maribell Garcia [address] [place] [address] Kayla Reeder DO [address] [place] [address] Health Maintenance Due Date Last Done Comments COVID-19 Vaccine (#1) 1993 Influenza Vaccine (FLU shot) (#1) 2023 11/17/2016, 11/17/2016, 11/30/2015, Additional history exists Depression Screening 07/07/2024 07/08/2023, 06/11/19 24 Albumin/Creatinine Ratio Discontinued 08/02/2021 documented as of this encounter Medical Devices Implanted Type Area Auto Rental Clerk Device Identifier Shelf Expiration Date Model / Serial / Lot Mediport Pwr Mri 8fr [id number] - [id number] Implanted:Qty : 1 on 07/17/2023 by Medhat Angel MD at OR [facility] Right: Chest CR BARD : PERIPHERAL VASCULAR 07/16/2024 [id number] / / [id number] Port Implant W8f Poly Cath - [id number] Implanted:Qty : 1 on 07/17/2023 by Medhat Angel MD at OR [facility] CR BARD : PERIPHERAL VASCULAR [id number] 07/16/2024 [id number] / / [id number] documented as of this encounter Visit Diagnoses Diagnosis Chronic cough Cough documented in this encounter Additional Health Concerns Infection Onset Date Last Indicated Resolved Time C. difficile Rule-Out 06/24/2023 06/24/20232023 8:27 PM EDT Gastrointestinal Rule-Out 06/24/2023 06/24/2023 10:45 PM EDT documented as of this encounter Advance Directives [...] File Name Relationship Healthcare Agent [facility] p Communication Trixie Le [facility] Repr esentative (appointed verbally by patient or by statute hierarchy) [email or web address] Care Teams Grinder Lap Relationship Specialty Start Date End Date Kayla Reeder DO [address] [facility] [place] [address] PCP - General Family Medicine 06/11/23 documented as of this encounter
--- OUTSIDE RECORDS SUMMARY | 2023-09-18 21:17 | External Medical Summary ---
Author Name Unknown Address Unknown Organization [facility] [address] [place] [address] Laboratory Report Ordering Provider Test Date Status MATTI BARAJAS 09/07/2023 07:20:25 Final Observation Date Value Abnormality Reference (Units ) Status LDH 09/07/2023 07:20:25 327 Above high normal <= 250 (U/L) Final Performing Location [facility] [address] [place] [address]
--- OUTSIDE RECORDS SUMMARY | 2023-09-18 21:17 | External Medical Summary ---
Author Name Unknown Address Unknown Organization [facility] - [address] [facility] [address] Laboratory Report Ordering Provider Test Date Status CHANTEL JORDAN 09/07/2023 13:28:00 Final Some reference ranges and ot her method performance specifications have not been established for this fluid. The test results must be integrated into the clinical context for interpretation. Observation Date Value Abnormality Reference (Units ) Status SYNC TOTAL NUCLEATED CELLS, CSF 09/07/2023 13:28:00 2 (cells/uL) Final Neutrophils/100 leukocytes in Cerebral spinal fluid 09/07/2023 13:28:00 2 0-6 (%) Final Lymphocytes/100 leukocytes in Cerebral spinal fluid 09/07/2023 13:28:00 47 40-80 (%) Final Monocytes/100 leukocytes in Cerebral spinal fluid 09/07/2023 13:28:00 51 Above high normal 15-45 (%) Final Neutrophils [#/volume] in Cerebral spinal fluid 09/07/2023 13:28:00 0.04 (cells/uL) Final Lymphocytes [#/volume] in Cerebral spinal fluid 09/07/2023 13:28:00 0.94 (cells/uL) Final Monocytes [#/volume] in Cerebral spinal fluid 09/07/2023 13:28:00 1.02 (cells/uL) Final Performing Location [facility] - [address] [facility] [address]
--- OUTSIDE RECORDS SUMMARY | 2023-09-18 21:17 | External Medical Summary ---
Author Name Unknown Address Unknown Organization K01:[facility] - [address] [place] [address] Laboratory Report Ordering Provider Test Date Status MATTI BARAJAS 09/07/2023 07:20:25 Final Observation Date Value Abnormality Reference (Units ) Status Uric Acid 09/07/2023 07:20:25 5.1 3.4-7.0 (m g/dL) Final Performing Location [facility] - [address] [place] [address]
--- OUTSIDE RECORDS SUMMARY | 2023-09-18 21:17 | External Medical Summary | Summary of Care ---
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) Procedures AZ DOXORUBIC HCL 10 MG VL CHEMO AZ VINCRISTINE SULFATE 1 MG INJ AZ FOSAPREPITANT INJECTION AZ ETOPOSIDE 10 MG INJ AZ INJECTION, RITUXIMAB-PVVR, BIOSIMILAR, (RUXIENCE), 10 MG AZ INJ, NYVEPRIA AZ INJ, CYCLOPHOSPHAMIDE, NOS Elvis Villalobos MD [address] [place] [address] Anc Hem/Onc Gl [address] [facility] [place] [address] Referral ID Status Reason Start Date Expiration Date V isits Requested Visits Authorized [id number] Authorized 07/23/2023 01/22/2024 [id number] Encounter Details Date Type Department Care Team (Latest Contact Info) Description 09/07/2023 8:00 AM EDT Hem/Onc Treatment Hematology Oncology [facility] [address] [place] [address] [place], Chair 19 Hem/Onc [address] [place] [address] Encounter for antineoplastic chemotherapy*; Burkitt lymphoma of [...] infusion and gets disconnected in the [facility]. Problem Noted Date Diagnosed Date Antineoplastic [...] Orders released Yes, meets parameters outlined in [place] plan documented in this encounter Plan of Treatment Upcoming Encounters Date Type Department Care Team (Late st Contact Info) Description 09/09/2023 10:30 AM EDT Office Visit Hematology/Oncology, [address] [address] Lakeshia Stone CRNP [address] [place] [address] 09/09/2023 11:00 AM EDT Hem/Onc Treatment Hematology/Oncology Treatment, [address] [address] [facility], Chair1 Hem Onc [address] [place] [address] 09/09/2023 1:00 PM EDT Office Visit Palliative Medicine, [address] 5th [place] [address] Tessa Rubio PA-C [address] [place] [address] 09/11/2023 9:00 AM EDT Nurse Only Hematology Oncology [facility], [place] [address] [place] [address] [place], Nurse Lab Hem/Onc [address] [facility] [place] [address] 09/11/2023 10:00 AM EDT Hem/Onc Treatment Hematology Oncology [facility], [address], [place] [address] [place], Chair 19 Hem/Onc [address] [place] [address], [place] [address] 09/11/2023 2:00 PM EDT Appointment Radiology, [address] [place] [address] 09/14/2023 7:00 AM EDT Laboratory Laboratory, [address] [address] [facility], Lab [address] [place] [address] 09/14/2023 8:00 AM EDT Immunization/Injectio n Hematology/Oncology Treatment, [address] [place] [address] [facility], Chair1 Hem Onc [address] [place] [address] 09/17/2023 10:30 AM EDT Laboratory Laboratory, [address] [place] [address] [facility], Lab [address] [place] [address], [place] [address] 09/17/2023 11:30 AM EDT Office Visit Hematology/Oncology, [address], [place] [address] Ritika Godfrey CRNP [address] [place] [address] 09/17/2023 12:00 PM EDT Hem/Onc Treatment Hematology/Oncology Treatment, [address], [place] [address] [facility], Chair9 Hem Onc [address] [place] [address] 09/18/2023 10:00 AM EDT Laboratory Laboratory, [address], [place] [address] [facility], Lab [address] [place] [address], [place] [address] 09/18/2023 11:30 AM EDT Hem/Onc Treatment Hematology/Oncology Treatment, [address], [place] [address] [facility], Chair5 Hem Onc [address] [place] [address] [place] [address] 09/25/2023 2:40 PM EDT Office Visit Rheumatology [address] [place] [address] Oliver Zhang MD [address] [place] [address], [place] [address] 09/28/2023 2:00 PM EDT Appointment Radiology, [address] [place] [address] 10/02/2023 2:00 PM EDT Appointment Radiology, [place] [address] [place] [address] 02/19/2024 12:00 PM EST Office Visit [facility] [address] [address] Kayla Reeder DO [address] [place] [address] Scheduled Orders Name Type Priority Associated Diagnoses [...] this encounter Medical Devices Implanted Type Area Construction Framer Device Identifier Shelf Expiration Date Model / Serial / Lot Mediport Pwr Mri 8fr [id number] - [id number] Implanted:Qty : 1 on 07/17/2023 by Medhat Angel MD at OR [facility] Right: Chest CR BARD : PERIPHERAL VASCULAR 07/16/2024 [id number] / / [id number] Port Implant W8f Poly Cath - [id number] Implanted:Qty : 1 on 07/17/2023 by Medhat Angel MD at OR [facility] CR BARD : PERIPHERAL VASCULAR [id number] 07/16/2024 [id number] / / [id number] documented as of this encounter Visit Diagnoses [...] sulfate 1.9 mg, DOXOrubicin (Adriamycin) 58 mg [facility] 48 HOUR infusion Intravenous, [...] Agents on File Name Relationship Healthcare Agent [facility] p Communication Trixie D [facility] Repr esentative (appointed verbally by patient or by statute hierarchy) [email or web address] Care Teams Pharmacist Technician Relationship Specialty Start Date End Date Kayla Reeder DO [address] [facility] [place] [address] PCP - General Family Medicine 06/11/23 documented as of this encounter
--- OUTSIDE RECORDS SUMMARY | 2023-09-18 21:17 | External Medical Summary | Summary of Care ---
Author Name Unknown Organization [facility] Address [address] [place] [address] Phone [phone] Care Team Providers Care Tower Erector Name Role Phone ReederMelissaie Tricia DO Primary Care Provider [phone]- [phone] Reason for Visit * Reason Comments Follow Up Encounter Details Date Type Department Care Team ([facility] st Contact Info) Description 09/04/2023 11:00 AM EDT Telemedicine Hematology/Oncology , [facility] [address] [place] [address] Mike Chaudhary MD [address] [place] [address] Herve Hurtadoed [facility] Hem Onc Clinic [address] [place] [address] 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)*; 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); Encounter to discuss test results; Encounter for antineoplastic chemotherapy; Encounter to discuss treatment options; Encounter for medication monitoring; Generalized weakness Allergies No known active allergiesdocumented as of this encounter (statuses as of 09/04/2023) Medications Medication Sig Dispensed Refills Start Date [...] as of this encounter (statuses as of 09/04/2023) Active Problems Problem Noted Date Diagnosed Date [...] as of this encounter (statuses as of 09/04/2023) Resolved Problems Problem Noted Date Diagnosed Date [...] as of this encounter (statuses as of 09/04/2023) Immunizations Name Administration Dates Next Due DT [...] two unique identifiers. 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 The patient agreed to participate. Patient's Name: Farhad Franco MR #: [id number] : 1990 Today's date: 09/04/2023 PCP: Kayla Reeder DO Referring provider: Kayla Reeder DO Reason for referral: Retroperitoneal mass Hematology/Oncology diagnosis: BL (Burkitt lymphoma): (June 2023) Sporadic variant, associated with EBV infection (EBV DNA, QN PCR= 43021). Also, patient with remotehistory of immunosuppressive meds. NEGATIVE HIV. High risk (retroperitoneal abdominal mass, > 7cm, High LDH). [email or web address]/[email or web address] Bulky disease (single mass >7 cm) Stage III (Retroperitoneal disease), with no bone marrow, or ORDNANCE TRUCK INSTALLATION MECHANIC involvement (LP x 2, Rare atypicallymphocytes W/small lymphocytes favor reactive lymphomonocytosis, flow:no evidence of clonal or aberrant cells) Retroperitoneal biopsy; IHC: Aggressive CD10+ B-cell lymphoma with EBV expression. Ki-67 = 80-90%. Flow cytometry: [id number]-hhjvlxbn B cell population expressing kappa light chains. FISH: t(8:14). 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 H/O seizures, last was in high school, has been on Depakote and toapmax for years Cognitive, and learning disabilities Gout HTN Former smoker, quit 2 years ago Treatment rendered: [facility] 1002 Pre-phase: Cyclophosphamide 200 mg/m2 IV days 1-5 (06/26/23-06/30/23) Prednisone 60 mg/m2 PO days 1-7 IT MTX 12 mg (07/02/23, 07/22/23) Current treatment: [email or web address]://[email or web address].org/doi/10.1200/[email or web address] Risk-adapted DA-EPOCH-R Q 21 days, with G-CSF [...] nodes (HCC) 06/26/2023 - 07/09/2023 Chemotherapy [facility] 45688 Pre-Phase ONLY (1 Cycle/14 Days) [id number] 07/01/2023 - 07/01/2023 Chemotherapy OP CHOP-R every 21 days (Lymphoma) [id number] 07/02/2023 - 07/09/2023 Chemotherapy IP DA-EPOCH every 21 days (Lymphoma) [id number] 07/02/2023 - Supportive Therapy SCP - INTRATHECAL CHEMOTHERAPY (HEMATOLOGY) [id number] Plan Provider: Yaz Molina MD Treatment goal: Supportive Line of treatment: [No plan line of treatment] 07/24/2023 - Chemotherapy OP DA-EPOCH-R every 21 days (Clinic Administration 48hr EPOCH infusion) [id number] 07/27/2023 - 07/27/2023 Chemotherapy Outpatient DA R-EPOCH Home Health Administration (48hr EPOCH infusion) [id number] 08/11/2023 - Supportive Therapy [facility] - PORT FLUSH Plan Provider: Mike Chaudhary MD Treatment goal: Supportive Line of treatment: Maintenance 08/27/2023 - Chemotherapy S[facility] - PACKED RED BLOOD CELLS AND PLATELETS FOR ADULTS REQUIRING FREQUENT TRANSFUSIONS (3 TIMES A WEEK FOR 3 MONTHS) [id number] 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 Patient [address] [facility]. He lives with his 4-year-old son. Patient is . He is on disability. Patient was admitted to [facility], and then transferred to [facility] because of Burkitt's lymphoma with hospital courses as below HOSPITAL COURSE (focused): - [facility] 06/20/2023 - 07/07/2023 (17 days): "Farhad Franco is 32 year old male with a past medical history significant for cerebral vasculitis (primary cerebral angiitis following Rheumatology in [place]) complicated by stroke at the age of7, migraine with aura, nephrolithiasis, petite mal seizures presented to [facility] with complaint of abdominal pain. Transferred from [facility] ER to [facility] to assess for IR biopsy in the setting of rapidly enlarging retroperitoneal mass on CT imaging. As per mother, he was on number of medications for his vasculitis like CellCept, Cytoxan, methotrexate from 1997 through 2014. Biopsy of retroperitoneal mass consistent with CD10 positive high-grade lymphoma with continued abdominal pain requiring morphine ELEVATOR TECHNICIAN pump. His uric acid was elevated s/p [...] puncture 07/02/23" HOSPITAL COURSE (focused) [facility]- 07/12/2023 - 07/14/2023 (2 days): 32 yo male presents to the [facility] ED c/o headache. Found to be [...] mood 08/14/2009 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 Follows in [place] q6m Cerebrovascular accident (CVA) (HCC) Gastroesophageal reflux [...] performed by Laurence Dent MD at [facility] EGD, FLEXIBLE, DIAGNOSTIC 02/05/2022 normal bx / ESOPHAGOGASTRODUODENOSCOPY (EGD), FLEXIBLE, TRANSORAL, DIAGNOSTIC performed by Laurence Dent MD at [facility] INFORMATION Arteriograms. INSER TUNN ACC DEV;5 YRS/OLDER Right 07/17/2023 INSERT TUNNELED CENTRAL VENOUS ACCESS WITH SUBQ PORT performed by Medhat Angel MD at OR [facility] IR BIOPSY 06/22/2023 [place] ANESTH,OPEN HEAD SURGERY Social History Tobacco Use [...] other nostril. 2 Each 3 Magic Swizzle (Zdtvmcskg-Xepgmkfn-Exmjig) oral solution Swish and spit 15 mL [...] oz Notes Notes Patient Instructions Addendum Arlyn Melvin RN Telephone Encounter Signed Shannon Kendall RN Telephone Encounter Signed Radha Grimm CPhT Telephone Encounter Signed Lakeshia Stone CRNP Telephone Encounter Signed Kayla Reeder, DO Progress Notes Sign when Signing Visit Tegan [...] Seen Imaging: FLUORO GUIDED CHEMO ADMIN INTO ORDNANCE TRUCK INSTALLATION MECHANIC Result Date: 08/21/2023 IMPRESSION Successful fluoroscopically guided lumbar puncture for administration of intrathecal chemotherapy. I have personally reviewed this examination and agree with the resident/fellow physician's interpretation. FLUORO GUIDED CHEMO ADMIN INTO ORDNANCE TRUCK INSTALLATION MECHANIC Result Date: 08/17/2023 IMPRESSION Final report Successful fluoroscopy guided lumbar puncture and intrathecal chemotherapy administration without immediate complication. I have personally reviewed this examination and agreewith the resident/fellow physician's interpretation. FLUORO GUIDED CHEMO ADMIN INTO ORDNANCE TRUCK INSTALLATION MECHANIC Result Date: 07/22/2023 IMPRESSION Successful fluoroscopy guided lumbar puncture and intrathecal chemotherapy administration without immediate complication. IR INTERVENTIONAL RADIOLOGY PROCEDURE IN OR Result Date: 07/17/2023 IMPRESSION: Successful placement of a chest power injectable medical port. MRI BRAIN W WO CONTRAST Result Date: 07/13/2023 IMPRESSION: No acute intracranial abnormality nor suspicious lesion. Chronic left ELEVATOR TECHNICIAN territory infarct. CTA HEAD/CTA NECK Result Date: [...] Retroperitoneum, CT guided fine needle aspiration: - EX22-qlimlbcu B-cell lymphoma expressing EBV and t(8:14), consistent with Burkitt lymphoma. FISH studies BCL2 (18q21) Rearrangement Not Detected BCL6 (3q27) Rearrangement Not Detected MYC (8q24) Rearrangement Detected MYC/IgH/CEN8 t(8;14) Detected Dr. Retana was notified of the updated diagnosis on 07/01/23 at 3:45 PM via secure messaging. Addendum electronically signed by Ritika Mane DO on 07/01/2023 at 1549 Final Diagnosis A. Retroperitoneum, CT guided fine [...] and specimens are preparedfor cell blocks at [facility] [place]. The cell blocks are submitted in cassettes A1/A3 and processed at [facility] [place]./MZ Prepared by: XIMENA Formalin fixation time: 10 [...] controls. CD3 stain background small sized T-cells. Catlin-5 stains B-cells and is diffusely positive in [...] Villafuerte DO Time: 12:37 Source: Retroperitoneum Part: [id number] Pass(es): 1 Adequacy: Less than optimal/Material collected [...] . Flow Interpretation Retroperitoneum core biopsy: - RF76-lybliyjn B cell population expressing kappa light chains. [...] with a benign lymphoid population (linked report [id number]). Bone Marrow Aspirate Differential Value % Reference [...] with EBV infection (EBV DNA, QN PCR= 17016). Also, patient with remotehistory of immunosuppressive meds. NEGATIVE HIV. High risk (retroperitoneal abdominal mass, > 7cm, High LDH). [email or web address] Bulky disease (single mass >7 cm) Stage III (Retroperitoneal disease), with no bone marrow, or ORDNANCE TRUCK INSTALLATION MECHANIC involvement (LP x 2, Rare atypicallymphocytes W/small lymphocytes favor reactive lymphomonocytosis, flow:no evidence of clonal or aberrant cells) Retroperitoneal biopsy; IHC: Aggressive CD10+ B-cell lymphoma with EBV expression. Ki-67 = 80-90%. Flow cytometry: VD59-gtbgftsf B cell population expressing kappa light chains. FISH: t(8:14). MYC/IgH/CEN8 t(8;14) Detected (82%), MYC (8q24) Rearrangement Detected (68%) (MYC chromosomal translocations +) S/P [facility] 1002 Pre-phase: Cyclophosphamide 200 mg/m2 IV [...] mother, who works from home as a [employer]. Patient has 1 son, and he is [...] We also discussed that nvolvement of the ORDNANCE TRUCK INSTALLATION MECHANIC occurs in up to 20% of cases ( but he was negative for ORDNANCE TRUCK INSTALLATION MECHANIC involvement), and the bone marrow is involved [...] IT methotrexate. Plan: PET-CT-2 on 08/12/23 reviewed, [place] score 1. Significant decrease in size and [...] 4 as scheduled on Wednesday 09/06 in [place]. His systemic chemotherapy, as well as IT methotrexate on day 1, day 5 of every cycle, will be managed between [place], and [facility]. He is scheduled with IR in [place] for IT methotrexate on day 1, day [...] x 2 did not show evidence of ORDNANCE TRUCK INSTALLATION MECHANIC involvement. So plan is to proceed with IT methotrexate on day 1, day 5 of every cycle from cycle [...] encounter. Check-out note: RTC on 09/06 to [place] for C4D1 DA EPOCH-R (Then through the rest of the week between [facility] and [place]) Need IT MTX on D1 and D5 of each cycle by IR in [place] Need bag change Q 48 hrs IVF three times weekly on week of chemo RTC on Wednesday 09/13 for G-CSF shot CBC/Diff, CMP, LDH, twice weekly RTC with AP weekly for toxicity visit Need to be seen by Neena prior to each chemo cycle This chart was completed in part utilizing [employer] Speech Voice Recognition Software. Grammatical errors, random [...] 7:15 AM EDT Nurse Only Hematology Oncology [facility], [address] [address] [place], Nurse Lab Hem/Onc [address] [place] [address] 09/07/2023 8:00 AM EDT Hem/Onc Treatment Hematology Oncology [facility], [address] [address] [place], Chair 19 Hem/Onc [address] [place] [address] 09/07/2023 2:00 PM EDT Appointment Radiology, [address] [address] 09/09/2023 10:30 AM EDT Office Visit Hematology/Oncology, [address] [address] Lakeshia Stone CRNP [address] [place] [address] 09/09/2023 11:00 AM EDT Hem/Onc Treatment Hematology/Oncology Treatment, [address] [address] [place], Chair1 Hem Onc [address] [place] [address] 09/09/2023 1:00 PM EDT Office Visit Palliative Medicine, [address] 5th [place] [address] Tessa Rubio PACatieC [address] [place] [address] 09/11/2023 9:00 AM EDT Nurse Only Hematology Oncology [facility], [address] [address] [place], Nurse Lab Hem/Onc [address] [place] [address] 09/11/2023 10:00 AM EDT Hem/Onc Treatment Hematology Oncology [facility], [address] [address] [place], Chair 19 Hem/Onc [address] [place] [address] 09/11/2023 2:00 PM EDT Appointment Radiology, [address] [address] 09/14/2023 7:00 AM EDT Laboratory Laboratory, [facility] [place] [address] [facility], Lab [address] [place] [address], [place] [address] 09/14/2023 8:00 AM EDT Immunization/Injectio n Hematology/Oncology Treatment, [address] [place] [address] [facility], Chair1 Hem Onc [address] [place] [address], [place] [address] 09/17/2023 10:30 AM EDT Laboratory Laboratory, [address], [place] [address] [facility], Lab [address] [place] [address], [place] [address] 09/17/2023 11:30 AM EDT Office Visit Hematology/Oncology, [address], [place] [address] Ritika Godfrey CRNP [address] [place] [address], [place] [address] 09/17/2023 12:00 PM EDT Hem/Onc Treatment Hematology/Oncology Treatment, [address], [place] [address] [facility], Chair9 Hem Onc [address] [place] [address], [place] [address] 09/18/2023 10:00 AM EDT Laboratory Laboratory, [address], [place] [address] [facility], Lab [address] [place] [address], [place] [address] 09/18/2023 11:30 AM EDT Hem/Onc Treatment Hematology/Oncology Treatment, [facility] [address] [place] [address] [facility], Chair5 Hem Onc [address] [place] [address] 09/25/2023 2:40 PM EDT Office Visit Rheumatology [place] [address] [place], [place] [address] Oliver Zhang MD [address] [place], [place] [address] 02/19/2024 12:00 PM EST Office Visit [facility] [place] [address] [place] [address] Kayla Reeder DO [address] [place] [address] Health Maintenance Due Date Last Done Comments COVID-19 Vaccine (#1) 1993 Influenza Vaccine (FLU shot) (#1) 2023 11/17/2016, 11/17/2016, 11/30/2015, Additional history exists Depression Screening 07/07/2024 07/08/2023, 06/11/19 24 Albumin/Creatinine Ratio Discontinued 08/02/2021 documented as of this encounter Medical Devices Implanted Type Area Strand Galvanizer Device Identifier Shelf Expiration Date Model / Serial / Lot Mediport Pwr Mri 8fr [id number] - [id number] Implanted:Qty : 1 on 07/17/2023 by Medhat Angel MD at OR [facility] Right: Chest CR BARD : PERIPHERAL VASCULAR 07/16/2024 [id number] / / [id number] Port Implant W8f Poly Cath - [id number] Implanted:Qty : 1 on 07/17/2023 by Medhat Angel MD at OR [facility] CR BARD : PERIPHERAL VASCULAR [id number] 07/16/2024 [id number] / / [id number] documented as of this encounter Visit Diagnoses [...] Agents on File Name Relationship Healthcare Agent [facility] p Communication Trixie Le [facility] Repr esentative (appointed verbally by patient or by statute hierarchy) [email or web address] Care Teams Tower Erector Relationship Specialty Start Date End Date Kayla Reeder DO [address] [facility] [place] [address] PCP - General Family Medicine 06/11/23 documented as of this encounter
--- OUTSIDE RECORDS SUMMARY | 2023-09-18 21:17 | External Medical Summary | Summary of Care ---
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) Procedures NH DOXORUBIC HCL 10 MG VL CHEMO NH VINCRISTINE SULFATE 1 MG INJ NH FOSAPREPITANT INJECTION NH ETOPOSIDE 10 MG INJ NH INJECTION, RITUXIMAB-PVVR, BIOSIMILAR, (RUXIENCE), 10 MG NH INJ, NYVEPRIA NH INJ, CYCLOPHOSPHAMIDE, NOS Elvis Villalobos MD [address] [place] [address] Anc Hem/Onc Gl 400 [facility] [place] [address] Referral ID Status Reason Start Date Expiration Date V isits Requested Visits Authorized [id number] Authorized 07/23/2023 01/22/[phone] Encounter Details Date Type Department Care Team (Latest Contact Info) Description 09/07/2023 8:00 AM EDT Hem/Onc Treatment Hematology Oncology [facility] [address] [place] [address] [place], Chair 19 Hem/Onc [address] [place] [address] Encounter for antineoplastic chemotherapy*; Burkitt lymphoma of [...] 07/08/2023 Does the household have a [facility] source of income? (Household - for [...] adverse side effects during treatment. * Tara Lagn RN - 09/07/2023 7:54 AM EDT Pre-chemo [...] Orders released Yes, meets parameters outlined in [place] plan documented in this encounter Plan of Treatment Upcoming Encounters Date Type Department Care Team (Late st Contact Info) Description 09/09/2023 10:30 AM EDT Office Visit Hematology/Oncology, [address] [address] Lakeshia Stone CRNP [address] [place] [address] 09/09/2023 11:00 AM EDT Hem/Onc Treatment Hematology/Oncology Treatment, [address] [address] [facility], Chair1 Hem Onc [address] [place] [address] 09/09/2023 1:00 PM EDT Office Visit Palliative Medicine, [address] 5[address] [place] [address] Tessa Rubio PAMalik [address] [place] [address] 09/11/2023 9:00 AM EDT Nurse Only Hematology Oncology [facility] [address] [place] [address] [place], Nurse Lab Hem/Onc [address] [place] [address] 09/11/2023 10:00 AM EDT Hem/Onc Treatment Hematology Oncology [facility] [place] [address] [address] [facility] [place] [address] [place], Chair 19 Hem/Onc [address] [place] [address], [place] [address] 09/11/2023 2:00 PM EDT Appointment Radiology, [address] [place] [phone] 09/14/2023 7:00 AM EDT Laboratory Laboratory, [address] [address] [facility], Lab [address] [place] [address] 09/14/2023 8:00 AM EDT Immunization/Injectio n Hematology/Oncology Treatment, [address] [address] [facility], Chair1 Hem Onc [address] [place] [address] 09/17/2023 10:30 AM EDT Laboratory Laboratory, [address] [place] [address] [facility], Lab [address] [place] [address] 09/17/2023 11:30 AM EDT Office Visit Hematology/Oncology, [address] [address] Ritika Godfrey CRNP [address] [place] [address] 09/17/2023 12:00 PM EDT Hem/Onc Treatment Hematology/Oncology Treatment, [address] [address] [facility], Chair9 Hem Onc [address] [place] [address], [place] [address] 09/18/2023 10:00 AM EDT Laboratory Laboratory, [address], [place] [phone] [facility], Lab [address] [place] [address], [place] [address] 09/18/2023 11:30 AM EDT Hem/Onc Treatment Hematology/Oncology Treatment, [address] [place] [address] [facility], Chair5 Hem Onc [address] [place] [address], [place] [address] 09/25/2023 2:40 PM EDT Office Visit Rheumatology [address] [place] [address] Oliver Zhang MD [address] [place] [address], [place] [address] 09/28/2023 2:00 PM EDT Appointment Radiology, [address] [address] 10/02/2023 2:00 PM EDT Appointment Radiology, [address] [address] 02/19/2024 12:00 PM EST Office Visit [facility] [address] Maribell Garcia [address] [place] [address] Kayla Reeder DO [address] [place] [address] Scheduled Orders Name Type Priority Associated Diagnoses [...] this encounter Medical Devices Implanted Type Area Nurses Assistant Device Identifier Shelf Expiration Date Model / Serial / Lot Mediport Pwr Mri 8fr [id number] - [id number] Implanted:Qty : 1 on 07/17/2023 by Medhat Angel MD at OR [facility] Right: Chest CR BARD : PERIPHERAL VASCULAR 07/16/2024 [id number] / / [id number] Port Implant W8f Poly Cath - [id number] Implanted:Qty : 1 on 07/17/2023 by Medhat Angel MD at OR [facility] CR BARD : PERIPHERAL VASCULAR [id number] 07/16/2024 [id number] / / [id number] documented as of this encounter Visit Diagnoses [...] ONCE PRN Other, Hypersensitivity Reaction, Starting on Thu09/07/23 at 0755, Until Thu09/08/23 at 0754, For 24 hours EPINEPHrine 1 MG/ML inj 0.3 mg 0.3 mg, Intramuscular, ONCE PRN Other, Hypersensitivity Reaction or Anaphylaxis, Starting on Thu09/07/23 at 0755, Until Thu09/08/23 at 0754, For 24 hours etoposide (VEPESID) 290 mg, vinCRIStine sulfate 1.9 mg, DOXOrubicin (Adriamycin) 58 mg [facility] 48 HOUR infusion Intravenous, Administer over 48 Hours, PROTECT FROM LIGHT! Administer through 0.22 micron low protein binding filter! Home Infusion Pharmacy to specify base solution and volume. To be given over 48 hours every other day for 4 days (2 bags) through home infusion company., CONTINUOUS, Starting on Thu09/07/23 at 1100, Until Discontinued Start Infusion 09/07/2023 11:40 AM EDT hEParin 100 UNIT/ML Lock Flush inj 500 Units 500 Units (5 mL), IV Lock, PRN Other, IV Flush, Starting on Thu09/07/23 at 0755, Until Thu09/08/23 at 0754, For 24 hours, Do not flush if lock, PICC, or central line not in place; IV infusing or unable to flush. Hydrocortisone Sod Suc (PF) (Solu-Cortef) inj 100 mg 100 mg, IV Push, ONCE PRN Other, Hypersensitivity Reaction, Starting on Thu09/07/23 at 0755, Until Thu09/08/23 at 0754, For 24 hours LORAzepam (Ativan) tab 0.5 mg 0.5 mg, Oral, ONCE PRN Anxiety, Nausea, Starting on Thu09/07/23 at 1030, Until Discontinued oxygen GAS Inhalation, OXYGEN, First dose on Thu09/07/23 at 0830, Until Discontinued, Device/Managed by: Low Flow Device, [...] Flush, Starting on Thu09/07/23 at 0755, Until Thu09/08/23 at 0754, For 24 hours, Do not flush if lock, PICC, or central line not in place; IV infusing or unable to flush. Given 09/07/2023 11:38 AM EDT 10 mL Given 09/07/2023 8:16 AM EDT 10 mL Inactive Administered Medications - [...] Given 09/07/2023 8:19 AM EDT 50 mg Famotidine (Pepcid) tab 20 mg 20 mg, [...] 9:44 AM EDT 900 mg 100 mL/hr documented in this encounter Advance Directives [...] Healthcare Agent Relationshi p Communication Trixie Le [facility] Repr esentative (appointed verbally by patient or by statute hierarchy) [email or web address] Care Teams Marine Electrician Helper Relationship Specialty Start Date End Date Kayla Reeder DO [address] [place] [address] PCP - General Family Medicine 06/11/23 documented as of this encounter
--- OUTSIDE RECORDS SUMMARY | 2023-09-18 21:17 | External Medical Summary ---
Author Name Unknown Address Unknown Organization [id number]:[address] [address] Laboratory Report Ordering Provider Test Date Status MATTI BARAJAS 09/07/2023 07:20:25 Final Observation Date Value Abnormality Reference (Units ) Status SYNC LEUKOCYTES IN BLOOD BY AUTOMATED COUNT 09/07/2023 07:20:25 11.05 Above high normal 4.00-10.80 (K/uL) Final Segs 09/07/2023 07:20:25 65.5 40.0-75.0 (%) Final Lymphs % 09/07/2023 07:20:25 11.1 Below low normal 18.0-42.0 (%) Final Monos 09/07/2023 07:20:25 17.6 Above high normal 1.0-11.0 (%) Final Eosinophils 09/07/2023 07:20:25 0.0 0.0-6.0 (%) Final Basos 09/07/2023 07:20:25 0.4 0.0-2.0 (%) Final Immature Granulocyte, Percent 09/07/2023 07:20:25 5.4 Above high normal 0.0-2.0 (%) Final Absolute Segs 09/07/2023 07:20:25 7.24 1.80-7.70 (K/uL) Final Lymphs, absolute 09/07/2023 07:20:25 1.23 1.00-4.80 (K/ul) Final Monos, Abs 09/07/2023 07:20:25 1.94 Above high normal 0.00-1.10 (K/uL) Final Eos, Abs 09/07/2023 07:20:25 0.00 0.00-0.70 (K/uL) Final Basos, Abs 09/07/2023 07:20:25 0.04 0.00-0.20 (K/uL) Final Immature Granulocytes, Number 09/07/2023 07:20:25 0.60 Above high normal 0.00-0.20 (K/uL) Final Performing Location [facility] - [address] [facility] [address]
--- OUTSIDE RECORDS SUMMARY | 2023-09-18 21:17 | External Medical Summary ---
Author Name Unknown Address Unknown Organization [id number]:[facility] [address] [facility] [address] Laboratory Report Ordering Provider Test Date Status MATTI BARAJAS 09/07/2023 07:20:25 Final Observation Date Value Abnormality Reference (Units ) Status WBC, Total 09/07/2023 07:20:25 11.05 Above high normal 4.00-10.80 (K/uL) Final RBC 09/07/2023 07:20:25 2.82 4.50-5.25 (M/uL) Final Hemoglobin 09/07/2023 07:20:25 8.7 Below low normal 14.0-16.8 (g/dL) Final HCT 09/07/2023 07:20:25 27.4 Below low normal 40.0-48.4 (%) Final MCV 09/07/2023 07:20:25 97.2 82.0-99.5 (fL) Final MCH 09/07/2023 07:20:25 30.9 27.0-34.0 (pg) Final MCHC 09/07/2023 07:20:25 31.8 32.0-36.0 (g/dL) Final RDW 09/07/2023 07:20:25 20.5 11.5-15.5 (%) Final Platelets 09/07/2023 07:20:25 182 140-400 (K/uL) Final MPV 09/07/2023 07:20:25 10.0 6.6-11.1 (fL) Final Nucleated erythrocytes/100 leukocytes [Ratio] in Blood by Automated count 09/07/2023 07:20:25 1 Above high normal <=0 (/100 WBCs) Final Performing Location [facility] - [address] [facility] [address]
--- OUTSIDE RECORDS SUMMARY | 2023-09-18 21:18 | External Medical Summary | Summary of Care ---
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 30 Tablet 08/14/2023 Active Potassium Chloride Ashely ER 10 MEQ Oral Tablet Extended ReleaseIndications:H [...] Info) Description 09/04/2023 11:00 AM EDT Telemedicine Hematology/Oncology, [facility] [address] [place] [address] Mike Chaudhary MD [address] [place] [address] Herve Hurtadoed [facility] Hem Onc Clinic [address] [place] [address] Arrived 09/07/2023 7:15 AM EDT Nurse Only Hematology Oncology [facility] [address] [facility] [address] [place], Nurse Lab Hem/Onc [address] [place] [address] 09/07/2023 8:00 AM EDT Hem/Onc Treatment Hematology Oncology [facility], [address] [address] [place], Chair 19 Hem/Onc [address] [place] [address] 09/07/2023 2:00 PM EDT Appointment Radiology, [address] [phone] 09/09/2023 11:00 AM EDT Hem/Onc Treatment Hematology/Oncology Treatment, [address] [address] [facility], Chair1 Hem Onc [address] [place] [address] 09/09/2023 1:00 PM EDT Office Visit Palliative Medicine, [address] [place] [address] Tessa Rubio PA-C [address] [place] [address] 09/11/2023 9:00 AM EDT Nurse Only Hematology Oncology [facility], [address] [address] [place], Nurse Lab Hem/Onc [address] [place] [address] 09/11/2023 10:00 AM EDT Hem/Onc Treatment Hematology Oncology [facility], [address] [address] [place], Chair 19 Hem/Onc [address] [place] [address] 09/11/2023 2:00 PM EDT Appointment Radiology, [place] [address] [place] [address] 09/14/2023 7:00 AM EDT Laboratory Laboratory, [address] [address] [facility], Lab [address] [place] [address] 09/14/2023 8:00 AM EDT Immunization/Injection Hematology/Oncology Treatment, [address] [address] [facility], Chair1 Hem Onc [address] [place] [address] 09/18/2023 10:00 AM EDT Laboratory Laboratory, [address] [phone] [facility], Lab [address] [place] [address] 09/18/2023 11:00 AM EDT Telemedicine Hematology/Oncology, [address] [address] Mike Chaudhary MD [address] [place] [address] Cart, Telemed [facility] Hem Onc Clinic [address] [place] [address] 09/25/2023 2:40 PM EDT Office Visit Rheumatology [address] [place] [address] Oliver Zhang MD [address] [place] [address] [place] [address] 02/19/2024 12:00 PM EST Office Visit [facility] [place] [address] [place] [phone] Kayla Reeder DO [address] [place] [address] Pending Results Name Type Priority Associated Diagnoses Date /Time URIC ACID Lab STAT 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) 09/04/2023 10:27 AM EDT LD Lab STAT 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) 09/04/2023 10:27 AM EDT CBC WITH WBC DIFFERENTIAL Lab STAT 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) 09/04/2023 10:27 AM EDT DIFFERENTIAL, AUTOMATED Lab STAT 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) 09/04/2023 10:27 AM EDT Health Maintenance Due Date Last Done Comments COVID-19 Vaccine (#1) 1995 Influenza Vaccine (FLU shot) (#1) 2023 11/17/2016, 11/17/2016, 11/30/2015, Additional history exists Depression Screening 07/07/2024 07/08/2023, 06/11/19 24 Albumin/Creatinine Ratio Discontinued 08/02/2021 documented as of this encounter Medical Devices Implanted Type Area Therapeutic Support Staff Device Identifier Shelf Expiration Date Model / Serial / Lot Mediport Pwr Mri 8fr [id number] - [id number] Implanted:Qty : 1 on 07/17/2023 by Medhat Angel MD at OR [facility] Right: Chest CR BARD : PERIPHERAL VASCULAR 07/16/2024 [id number] / / [id number] Port Implant W8f Poly Cath - [id number] Implanted:Qty : 1 on 07/17/2023 by Medhat Angel MD at OR [facility] CR BARD : PERIPHERAL VASCULAR [id number] 07/16/2024 [id number] / / [id number] documented as of this encounter Procedures Procedure Name Priority Date/Time Associated Diagnosis Comments CBC STAT 09/04/2023 10:27 AM EDT 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) documented in this encounter Results * (ABNORMAL) CBC (09/04/2023 10:27 AM EDT) WBC 16.51(H) 4.00 - 10.80 K/uL 09/04/2023 10:46 AM EDT LABORATORY [facility] RBC 2.87 4.50 - 5.25 M/uL 09/04/2023 10:46 AM EDT LABORATORY GL HGB 9.2(L) 14.0 - 16.8 g/dL 09/04/2023 10:46 AM EDT LABORATORY GL HCT 28.2(L) 40.0 - 48.4 % 09/04/2023 10:46 AM EDT LABORATORY GL MCV 98.3 82.0 - 99.5 fL 09/04/2023 10:46 AM EDT LABORATORY GL MCH 32.1 27.0 - 34.0 pg 09/04/2023 10:46 AM EDT LABORATORY [facility] MCHC 32.6 32.0 - 36.0 g/dL 09/04/2023 10:46 AM EDT LABORATORY [facility] RDW 20.9 11.5 - 15.5 % 09/04/2023 10:46 AM EDT LABORATORY [facility] PLT 140 140 - 400 K/uL 09/04/2023 10:46 AM EDT LABORATORY [facility] MPV 10.6 6.6 - 11.1 fL 09/04/2023 10:46 AM EDT LABORATORY GL nRBCs 1(H) <=0 /100 WBCs 09/04/2023 10:46 AM EDT LABORATORY [facility] Blood Venous blood specimen / Unknown Venipuncture / Unknown 09/04/2023 10:27 AM EDT 09/04/2023 10:27 AM EDT Mike Chaudhary MD LAB BLOOD O RDERABLES LABORATORY [facility] [address] [place] [address] documented in this encounter Visit [...] Agents on File Name Relationship Healthcare Agent [facility] p Communication Trixie Le [facility] Repr esentative (appointed verbally by patient or by statute hierarchy) [email or web address] Care Teams Clerk To Justice Relationship Specialty Start Date End Date Kayla Reeder DO [address] [facility] [place] [address] PCP - General Family Medicine 06/11/23 documented as of this encounter
--- OUTSIDE RECORDS SUMMARY | 2023-09-18 21:18 | External Medical Summary | Summary of Care ---
Author Name Unknown Organization [facility] Address [address] [place] [address] Phone [phone] Care Team Providers Care Preparation Plant Repairer Name Role Phone ReederKaylasnehal MALDONADO Primary Care Provider [phone] Reason for Visit * Reason Onset Date Comments Lab Draw Only 08/21/2023 Encounter Details Date Type Department Care Team (Late st Contact Info) Description 08/21/2023 Telephone Hematology/Oncology, [facility] [address] [place] [address] Mike Chaudhary MD [address] [place] [address] Lab Draw Only Allergies No known active allergiesdocumented as of [...] for Pain, Breakthrough. 30 Tablet 08/14/2023 Active Topiramate 100 MG Oral Tablet (topAMAX) TAKE ONE TABLET BY MOUTH TWICE A DAY (MORNING AND BEFORE BEDTIME) 180 Tablet 3 08/04/2022 08/28/19 24 Discontinu ed(Refill) Buprenorphine HCl 2 MG Sublingual Tablet Sublingual (Subutex)Indication s:Cancer related pain Place 0.5 Tablets under the tongue in the morning and 0.5 Tablets in the evening. 30 Tablet 07/22/2023 08/24/19 24 Discontinu ed(Refill) Potassium Chloride [facility] 10 MEQ Oral Tablet Extended ReleaseIndications: Hypokalemia Take 2 Tablets by mouth in the morning and 2 Tablets before bedtime. Do all this for 14 days. 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 When ANC less than 500. 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 Chaudhary Treatment: DA-EPOCH Cycle 3 Patient was educated by nurse specialist at start of treatment: Yes Per communication from clinic pharmacist, Day 1 of current cycle was 08/16, which was a Thursday, meaning: Day 8 lab appt scheduled for Thursday, 08/23 Day lab appt scheduled for , 08/26 Day 15 lab appt scheduled for Thursday, 08/30 Day 18 lab appt scheduled for , 09/02 Reviewed patient chart today to monitor for Day 18 labs completed 09/04/23. 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 Chaudhary Treatment: DA-EPOCH Cycle 3 Patient was educated by nurse specialist at start of treatment: Yes Per communication from clinic pharmacist, Day 1 of current cycle was 08/16, which was a Thursday, meaning: Day 8 lab appt scheduled for Thursday, 08/23 Day lab appt scheduled for , 08/26 Day lab appt scheduled for Thursday, 08/30 Day lab appt scheduled for , 09/02 Reviewed patient chart today to monitor for Day 15 lab completed: Patient labs completed and in chart, will follow up with lab compliance on Day 18 Will follow up on 09/02(Date) for next labs due on Day 18 Of note, patient scheduled 09/03 @ [facility] lab Radha Grimm [employer] Consultant III Hematology Oncology Oral Chemotherapy Clinic Medication Therapy Disease Management [facility] 08/31/2023 1:53 PM Time Spent on Encounter: 6 - 10 minutes * Telephone Encounter - Radha Grimm CPhT - 08/27/2023 3:16 PM EDT DA-EPOCH LAB MONITORING DOCUMENTATION Farhadgracia Barronis [id number] Patient Phone Numbers Fanzo [phone] Communication: Chart review 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 Chaudhary Treatment: DA-EPOCH Cycle 3 Patient was educated by nurse specialist at start of treatment: Yes Per communication from clinic pharmacist, Day 1 of current cycle was 08/16, which was a Thursday, meaning: Day 8 lab appt scheduled for Thursday, 08/23 Day lab appt scheduled for , lab appt scheduled for Thursday, lab appt scheduled for , 09/02 Reviewed patient chart today to monitor for Day lab completed: Patient labs completed and in chart, will follow up with lab compliance on Will follow up on 08/30(Date) for next labs due on Radha Grimm [employer] [facility] Consultant III Hematology Oncology Oral Chemotherapy Clinic Medication Therapy Disease Management [facility] 08/27/2023 3:17 PM Time Spent on Encounter: < 5 minutes * Telephone Encounter - Radha Grimm CPhT - 08/24/2023 3:29 PM EDT DA-EPOCH LAB MONITORING DOCUMENTATION Farhad Barronis [id number] Patient Phone Numbers Communication: Chart review 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 Chaudhary Treatment: DA-EPOCH Cycle 3 Patient was educated by nurse specialist at start of treatment: Yes Per communication from clinic pharmacist, Day 1 of current cycle was 08/16, which was a Thursday, meaning: Day 8 lab appt scheduled for Thursday, lab appt scheduled for , lab appt scheduled for Thursday, lab appt scheduled for , 09/02 Reviewed patient chart today to monitor for Day lab completed: Patient labs completed and in chart, will follow up with lab compliance on Day Will follow up on 08/26(Date) for next labs due on Day Radha Grimm [employer] Consultant III Hematology Oncology Oral Chemotherapy Clinic Medication Therapy Disease Management [facility] 08/24/2023 3:31 PM Time Spent on Encounter: 6 - 10 minutes * Telephone Encounter - Radha Grimm CPhT - 08/21/2023 2:41 PM EDT DA-EPOCH LAB MONITORING DOCUMENTATION Farhad Franco [id number] Patient Phone Numbers Communication: Chart review 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 Chaudhary Treatment: DA-EPOCH Cycle 3 Patient was educated by nurse specialist at start of treatment: Yes Per communication from clinic pharmacist, Day 1 of current cycle was 08/16, which was a Thursday, meaning: 8 lab appt scheduled for Thursday, lab appt scheduled for , lab appt scheduled for Thursday, lab appt scheduled for , 09/02 Reviewed patient chart today to contact patient for lab reminder for the upcoming week on the days and dates as outlined above Will follow up on 08/24/23(Date) for next labs due on Day 8 Radha Grimm [employer] Consultant III Hematology Oncology Oral Chemotherapy Clinic Medication Therapy Disease Management [facility] 08/21/2023 2:46 PM Time Spent on Encounter: 6 - 10 minutes documented in this encounter Plan of Treatment Upcoming Encounters Date Type Department Care Team (Late st Contact Info) Description 09/07/2023 7:15 AM EDT Nurse Only Hematology Oncology [place] [address] [place] [address] Iesha, Nurse Lab Hem/Onc Formerly named [facility] [place] [address] 09/07/2023 8:00 AM EDT Hem/Onc Treatment Hematology Oncology [facility] [address] [place] [address] Ieh[place], Chair 19 Hem/Onc Formerly named [facility] [place] [address] 09/07/2023 2:00 PM EDT Appointment Radiology, [address] [phone] 09/09/2023 10:30 AM EDT Office Visit Hematology/Oncology, [address] [address] Lakeshia Stone CRNP [address] [place] [address] 09/09/2023 11:00 AM EDT Hem/Onc Treatment Hematology/Oncology Treatment, [address] [address] [facility], Chair1 Hem Onc [address] [place] [address] 09/09/2023 1:00 PM EDT Office Visit Palliative Medicine, [address] [place] [address] Tessa Rubio PA-C [address] [place] [address] 09/11/2023 9:00 AM EDT Nurse Only Hematology Oncology [facility], [address] [address] [place], Nurse Lab Hem/Onc [address] [place] [address] 09/11/2023 10:00 AM EDT Hem/Onc Treatment Hematology Oncology [facility], [address] [address] I[place], Chair 19 Hem/Onc [address] [place] [address] 09/11/2023 2:00 PM EDT Appointment Radiology[address] [phone] 09/14/2023 7:00 AM EDT Laboratory Laboratory, [address], [place] [address] [facility], Lab [address] [place] [address] 09/14/2023 8:00 AM EDT Immunization/Injectio n Hematology/Oncology Treatment, [address], [place] [address] [facility], Chair1 Hem Onc [address] [place] [address], [place] [address] 09/17/2023 10:30 AM EDT Laboratory Laboratory, [address], [place] [address] [facility], Lab [address] [place] [address], [place] [address] 09/17/2023 11:30 AM EDT Office Visit Hematology/Oncology, [address], [place] [address] Ritika Godfrey CRNP [address] [place] [address], [place] [address] 09/17/2023 12:00 PM EDT Hem/Onc Treatment Hematology/Oncology Treatment, [address], [place] [address] [facility], Chair9 Hem Onc [address] [place] [address], [place] [address] 09/18/2023 10:00 AM EDT Laboratory Laboratory, [address] [address] [facility], Lab [address] [facility], [place] [address] 09/18/2023 11:30 AM EDT Hem/Onc Treatment Hematology/Oncology Treatment, [facility] [address] [facility], [place] [address] [facility], Chair5 Hem Onc [address] [facility], [place] [address] 09/25/2023 2:40 PM EDT Office Visit Rheumatology [address] [employer] [facility] [place], [place] [address] Oliver Zhang MD [facility] [employer] [place], [place] [address] 02/19/2024 12:00 PM EST Office Visit Family [facility] [place] Maribell Garcia [address] [place] [address] [place] [address] Kayla Reeder DO [address] [facility] [place] [address] Health Maintenance Due Date Last Done Comments COVID-19 Vaccine (#1) 1995 Influenza Vaccine (FLU shot) (#1) 2023 11/17/2016, 11/17/2016, 11/30/2015, Additional history exists Depression Screening 07/07/2024 07/08/2023, 06/11/19 24 Albumin/Creatinine Ratio Discontinued 08/02/2021 documented as of this encounter Medical Devices Implanted Type Area Mason Tender Device Identifier Shelf Expiration Date Model / Serial / Lot Mediport Pwr Mri 8fr [id number] - [id number] Implanted:Qty : 1 on 07/17/2023 by Medhat Angel MD at OR [facility] Right: Chest CR BARD : PERIPHERAL VASCULAR 07/16/2024 [id number] / / [id number] Port Implant W8f Poly Cath - [id number] Implanted:Qty : 1 on 07/17/2023 by Medhat Angel MD at OR [facility] BARD : PERIPHERAL VASCULAR [id number] 07/16/2024 [id number] / / [id number] documented as of this encounter Advance Directives [...] Agents on File Name Relationship Healthcare Agent [facility] Communication Trixie Le [facility] Repr esentative (appointed verbally by patient or by statute hierarchy) [email or web address] Care Teams Preparation Plant Repairer Relationship Specialty Start Date End Date Kayla Reeder DO [address] [facility] [place] [address] PCP - General Family Medicine 06/11/23 documented as of this encounter
--- OUTSIDE RECORDS SUMMARY | 2023-09-18 21:18 | External Medical Summary | Summary of Care ---
Author Name Unknown Organization [facility] Address [address] [place] [address] Phone [phone] Care Team Providers Care Building Materials Sales Attendant Name Role Phone ReederMelissarosio Clarke DO Primary Care Provider [phone] Reason for Visit * Reason Comments Follow Up Encounter Details Date Type Department Care Team ([facility] st Contact Info) Description 08/14/2023 10:00 AM EDT Telemedicine Hematology/Oncology , [facility] [address] [place] [address] Mike Chaudhary MD [address] [place] [address] Herve Hurtadoed [facility] [address] [place] [address] 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 30 Tablet 08/11/2023 09/10/19 24 Active Topiramate 100 MG Oral Tablet [...] 30 Tablet 07/24/2023 08/28/19 24 Discontinu ed(Refill) HYDROmorphone HCl 2 MG Oral Tablet (Dilaudid)Indicatio ns:Cancer related pain Take 1and 1/2 Tablets by mouth every 4 hours as needed for Pain, Moderate or Pain, Severe. 60 Tablet 08/12/2023 08/19/19 24 Discontinu ed(Medicat ion/Dose Changed) documented as of [...] Sign Reading Time Taken Comments Blood Pressure 103/67 08/14/2023 9:17 AM EDT Pulse 87 08/14/2023 9:17 AM EDT Temperature 35.9 C (96.7 F) 08/14/2023 9:17 AM ED T Respiratory Rate 16 08/14/2023 9:17 AM EDT Oxygen Saturation 98% 08/14/2023 9:17 AM EDT Inhaled Oxygen Concentration - - Weight 111.1 kg (244 lb 14.4 oz) 08/14/2023 9:17 AM EDT Height - - Body Mass Index 34.16 07/22/2023 9:20 AM EDT documented in this encounter Functional [...] Progress Notes * Mike Chaudhary MD - 08/14/2023 9:50 AM EDT Images from the original note were not included. TeleVIDEO Visit Patient location: CLINIC. I was in a different facility from the patient. After connecting through televideo, patient was verified with two unique identifiers. Patient (or authorized legal sales and marketing representative) was then informed that this was a Telemedicine visit and being conducted confidentially over secure lines. My office door was closed. No one else was in the room with me. Patient acknowledged consent and understanding of privacy and security of the Telemedicine visit, and gave permission to have a telemedicine presenter stay in the room in order to assist with the history and to conduct the exam as needed. I informed the patient that I have reviewed their record in [facility] and presented the opportunity for them to ask any questions regarding the visit today. The patient agreed to participate. 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 Also, patient with remotehistory of immunosuppressive meds. NEGATIVE HIV. High risk (retroperitoneal abdominal mass, > 7cm, High LDH). [email or web address]://[email or web address].org/doi/10.1200/JCO.[email or web address] Bulky disease (single mass >7 cm) Stage III (Retroperitoneal disease), with no bone marrow, or RESEARCH ANALYST involvement (LP x 2, Rare atypicallymphocytes W/small lymphocytes favor reactive lymphomonocytosis, flow:no evidence of clonal or aberrant cells) Retroperitoneal biopsy; IHC: Aggressive CD10+ B-cell lymphoma with EBV expression. Ki-67 = 80-90%. Flow cytometry: [id number]-veivgwoc B cell population expressing kappa light chains. FISH: t(8:14). 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 H/O seizures, last was in high school, has been on Depakote and toapmax for years Cognitive, and learning disabilities Gout HTN Former smoker, quit 2 years ago Treatment rendered: CALGB 1002 Pre-phase: Cyclophosphamide 200 mg/m2 IV days 1-5 (06/26/23-06/30/23) Prednisone 60 mg/m2 PO days 1-7 IT MTX 12 mg (07/02/23, 07/22/23) Current treatment: [email or web address]://ascopubs.org/doi/10.1200/JCO.[email or web address] Risk-adapted DA-EPOCH-R Q 21 days, with G-CSF support x 6 cycles (07/02/23- )---> C1 started IP,w/o steroids d/t he got pre phase steroids. IT MTX D1 and [...] nodes (HCC) 06/26/2023 - 07/09/2023 Chemotherapy CALGB 24165 Pre-Phase ONLY (1 Cycle/14 Days) [id number] 07/01/2023 - 07/01/2023 Chemotherapy OP CHOP-R every 21 days (Lymphoma) [id number] 07/02/2023 - 07/09/2023 Chemotherapy IP DA-EPOCH every 21 days (Lymphoma) [id number] 07/02/2023 - Supportive Therapy SCP - INTRATHECAL CHEMOTHERAPY (HEMATOLOGY) [id number] Plan Provider: Yaz Molina MD Treatment goal: Supportive Line of treatment: [No plan line of treatment] 07/24/2023 - Chemotherapy OP DA-EPOCH-R every 21 days (Clinic Administration 48hr EPOCH infusion) [id number] 07/27/2023 - 07/27/2023 Chemotherapy Outpatient DA R-EPOCH Home Health Administration (48hr EPOCH infusion) [id number] 08/11/2023 - Supportive Therapy SCP - PORT FLUSH Plan Provider: Mike Chaudhary MD Treatment goal: Supportive Line of treatment: Maintenance ECOG: Performance Status 1 = 80-90% Symptoms but nearly ambulatory Interval H/O: Patient presented to my office, accompanied by his stepfather for follow-up, evaluation before starting cycle 3 of dose adjusted R EPOCH, and discuss results of his PET-CT, and treatment plan. Overall, he is tolerating chemotherapy very well. [...] his mother to establish care with outpatient clin tech for evaluation, treatment of his newly diagnosed Burkittcell lymphoma. Patient lives 1 hour away from [facility]. He lives with his 4-year-old son. Patient is . He is on disability. Patient was admitted to [facility], and then transferred to [facility] because of Burkitt's lymphoma with hospital courses as below HOSPITAL COURSE (focused): - [facility] 06/20/2023 - 07/07/2023 (17 days): "Farhad Franco is 32 year old male with a past medical history significant for cerebral vasculitis (primary cerebral angiitis following Rheumatology in [place]) complicated by stroke at the age of7, migraine with aura, nephrolithiasis, petite mal seizures presented to [facility] with complaint of abdominal pain. Transferred from [facility] ER to [facility] to assess for IR biopsy in the setting of rapidly enlarging retroperitoneal mass on CT imaging. As per mother, he was on number of medications for his vasculitis like CellCept, Cytoxan, methotrexate from 1997 through 2014. Biopsy of retroperitoneal mass consistent with CD10 positive high-grade lymphoma with continued abdominal pain requiring morphine RETAIL COORDINATOR pump. His uric acid was elevated s/p [...] 06/25/23, lumbar puncture 07/02/23" HOSPITAL COURSE (focused) [facility]- 07/12/2023 - 07/14/2023 (2 days): 32 yo male presents to the [facility] ED c/o headache. Found to be [...] mood 08/14/2009 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 Follows in [place] q6m Cerebrovascular accident (CVA) (HCC) Gastroesophageal reflux [...] performed by Laurence Dent MD at ENDOSCOPY [facility] EGD, FLEXIBLE, DIAGNOSTIC 02/05/2022 normal bx / ESOPHAGOGASTRODUODENOSCOPY (EGD), FLEXIBLE, TRANSORAL, DIAGNOSTIC performed by Laurence Dent MD at ENDOSCOPY [facility] INFORMATION Arteriograms. INSER TUNN ACC DEV;5 YRS/OLDER Right 07/17/2023 INSERT TUNNELED CENTRAL VENOUS ACCESS WITH SUBQ PORT performed by Medhat Angel MD at OR [facility] IR BIOPSY 06/22/2023 MA ANESTH,OPEN HEAD SURGERY Social History Tobacco Use Smoking status: Former Current packs/day: 0.00 Average packs/day: 2.0 packs/day for 7.2 years (14.3 ttl pk-yrs) Types: Cigarettes Start date: 05/17/2014 Quit date: 07/17/2021 Years since quittin.0 Passive exposure: Past Smokeless tobacco: Never Tobacco [...] 81 MG PO TABS one tablet daily Topiramate 100 MG Oral Tablet (topAMAX) TAKE ONE TABLET BY MOUTH TWICE A DAY (MORNING AND BEFORE BEDTIME) 180 Tablet 3 Divalproex Sodium ER 500 MG Oral Tablet [...] other nostril. 2 Each 3 Magic Swizzle (Xuesuolpr-Sxcwiygt-Ftrpgk) oral solution Swish and spit 15 mL 4 times a day as needed for Sore throat (oral pain). 900 mL 0 Prochlorperazine Maleate 5 MG Oral Tablet (Compazine) Take 1 Tablet by mouth every 8 hours as needed for Nausea. 30 Tablet 0 Buprenorphine HCl 2 MG Sublingual Tablet Sublingual (Subutex) Place 0.5 Tablets under the tongue inthe morning and 0.5 Tablets in the evening. 30 Tablet 0 Allopurinol 300 MG Oral [...] 1 Tablet before bedtime. 30 Tablet 2 levoFLOXacin 750 MG Oral Tablet (Levaquin) Take 1 Tablet by mouth in the morning. When ANC less than 500. 30 Tablet 0 Ondansetron HCl 4 MG Oral Tablet Take [...] mouth in the morning. 30 Tablet 0 HYDROmorphone HCl 2 MG Oral Tablet (Dilaudid) Take 1and 1/2 Tablets by mouth every 4 hours as needed for Pain, Moderate or Pain, Severe. 60 Tablet 0 Morphine Sulfate 15 MG Oral Tablet (Msir) Take 1 Tablet by mouth every 6 hours as needed for Pain, Breakthrough. 30 Tablet 0 No current facility-administered medications for this visit. Review of patient's allergies indicates: No Known Allergies Physical exam: Vitals 08/07/2023 08/10/2023 14:39 08/11/2023 08/12/2023 08/13/2023 08/14/2023 Vitals BP 115/67 103/67 Pulse 73 87 Resp 16 Temp 36.4 C (97.5 F) 35.9 C (96.7 F) SpO2 100 % 98 % Weight 248 lb 4.8 oz 244 lb 14.4 oz Notes Notes Telephone Encounter Signed Rebeca Piper OSA Telephone Encounter Signed Radha Grimm CPhT Telephone Encounter Signed Aury Silva MD Telephone Encounter Signed Aury Silva MD Telephone Encounter Signed Tegan Burleson LPN Telephone Encounter Signed Radha Grimm CPhT Progress Notes Incomplete Mike Chaudhary MD Details More values are hidden. Newest values shown. Go to activity for more data. General: alert and no distress Head: Normocephalic, No masses, lesions, tenderness or abnormalities Rest of examination can not be performed because of video visit. Labs: Results for orders placed or performed in visit on 08/14/23 COMPREHENSIVE METABOLIC PANEL Result Value Ref Range BUN 15 6 - 20 mg/dL Creatinine 1.0 0.6 - 1.2 mg/dL Estimated Glomerular Filtration Rate >90 >=60 mL/min Sodium 142 135 - 146 mmol/L Potassium 4.2 3.5 - 5.1 mmol/L Chloride 108 (H) 98 - 107 mmol/L CO2 23 22 - 32 mmol/L Anion Gap 11 7 - 15 mmol/L Glucose 112 70 - 120 mg/dL Albumin 4.0 3.8 - 5.0 g/dL AST 28 10 - 50 U/L Alkaline Phosphatase 88 35 - 130 U/L Bilirubin, Total 0.2 <=1.2 mg/dL Calcium 9.5 8.4 - 10.2 mg/dL Protein 6.5 6.0 - 8.3 g/dL ALT 39 10 - 50 U/L URIC ACID Result Value Ref Range Uric Acid 5.0 3.4 - 7.0 mg/dL LD Result Value Ref Range LD 339 (H) <=250 U/L CBC Result Value Ref Range WBC 7.84 4.00 - 10.80 K/uL RBC 3.31 4.50 - 5.25 M/uL HGB 10.2 (L) 14.0 - 16.8 g/dL HCT 31.7 (L) 40.0 - 48.4 % MCV 95.8 82.0 - 99.5 fL MCH 30.8 27.0 - 34.0 pg MCHC 32.2 32.0 - 36.0 g/dL RDW 19.6 11.5 - 15.5 % PLT 136 (L) 140 - 400 K/uL MPV 10.4 6.6 - 11.1 fL nRBCs 0 <=0 /100 WBCs Imaging: FLUORO GUIDED CHEMO ADMIN INTO RESEARCH ANALYST Result Date: 07/22/2023 IMPRESSION Successful fluoroscopy guided lumbar puncture and intrathecal chemotherapy administration without immediate complication. IR INTERVENTIONAL RADIOLOGY PROCEDURE IN OR Result Date: 07/17/2023 IMPRESSION: Successful placement of a chest power injectable medical port. MRI BRAIN W WO CONTRAST Result Date: 07/13/2023 IMPRESSION: No acute intracranial abnormality nor suspicious lesion. Chronic left RETAIL COORDINATOR territory infarct. CTA HEAD/CTA NECK Result Date: [...] Retroperitoneum, CT guided fine needle aspiration: - WO07-okexethr B-cell lymphoma expressing EBV and t(8:14), consistent [...] and specimens are preparedfor cell blocks at [facility]. The cell blocks are submitted in cassettes A1/A3 and processed at [facility]./MZ Prepared by: Formalin fixation time: 10 hours Microscopic Description [...] controls. CD3 stain background small sized T-cells. [place]-5 stains B-cells and is diffusely positive in [...] Villafuerte DO Time: 12:37 Source: Retroperitoneum Part: [id number] Pass(es): 1 Adequacy: Less than optimal/Material collected [...] . Flow Interpretation Retroperitoneum core biopsy: - GG08-zlljiwoh B cell population expressing kappa light chains. [...] with a benign lymphoid population (linked report [id number]). Bone Marrow Aspirate Differential Value % Reference [...] with EBV infection (EBV DNA, QN PCR= 52501). Also, patient with remotehistory of immunosuppressive meds. NEGATIVE HIV. High risk (retroperitoneal abdominal mass, > 7cm, High LDH). [email or web address]://[email or web address]/doi/10.1200/[email or web address] Bulky disease (single mass >7 cm) Stage III (Retroperitoneal disease), with no bone marrow, or RESEARCH ANALYST involvement (LP x 2, Rare atypicallymphocytes W/small lymphocytes favor reactive lymphomonocytosis, flow:no evidence of clonal or aberrant cells) Retroperitoneal biopsy; IHC: Aggressive CD10+ B-cell lymphoma with EBV expression. Ki-67 = 80-90%. Flow cytometry: [id number]-cdeeyxlv B cell population expressing kappa light chains. FISH: t(8:14). MYC/IgH/CEN8 t(8;14) Detected (82%), MYC (8q24) Rearrangement Detected (68%) (MYC chromosomal translocations +) S/P [facility] 1002 Pre-phase: Cyclophosphamide 200 mg/m2 IV days [...] mother, who works from home as a [employer]. Patient has 1 son, and he is [...] We also discussed that nvolvement of the RESEARCH ANALYST occurs in up to 20% of cases ( but he was negative for RESEARCH ANALYST involvement), and the bone marrow is involved [...] and resolution of retroperitoneal lymph node conglomerate. I have a long discussion with the patient, the stepfather about the current findings, our plan to complete 6 cycles of his current chemotherapy with dose adjusted EPOCH-R He completed 2 cycles of dose adjusted EPOCH-R with same dose level. His khurram ANC after cycle 2 was 3300, so will increase dose of etoposide, doxorubicin, cyclophosphamide by 20% in cycle 3. His systemic chemotherapy, as well as IT methotrexate on day 1, day 5 of every cycle, will be managed between [place], and [facility]. He is scheduled with IR in [place] for IT methotrexate on day 1, day [...] IV fluids. Continue supportive medications as above. LP x 2 did not show evidence of RESEARCH ANALYST involvement. So plan is to proceed with IT methotrexate on day 1, day 5 of every cycle from cycle 3 to cycle 6. Currently his pain is well-controlled, he is following with palliative. Surveillance upon complete response (after 6 cycles): CT C/A/P W contrast no more often than every 6 mo for 2 y after completion of treatment, then only as clinically indicated. Systemic, and intrathecal chemotherapy plan reviewed in details in epic, discussed with nursing staff. Okay to proceed with cycle 3 next week. Plan New Supportive Care Plan Treatment Ordered By: Hem/Onc --- Protocol: SCP - HYDRATION [id number] Check-out note: RTC on 08/16 to [place] for C3D1 DA EPOCH-R (Then through the rest of the week between [facility] and [place]) Need IT MTX on D1 and D5 of each cycle by IR in [place] Need bag change Q 48 hrs IVF three times weekly on week of chemo RTC on Wednesday 08/23 for G-CSF shot CBC/Diff, CMP, LDH, twice weekly RTC with AP weekly for toxicity visit Need to be seen by Neena prior to each chemo cycle This chart was completed in part utilizing [employer] Speech Voice Recognition Software. Grammatical errors, random word insertions, pronoun errors, and incomplete sentences are an occasional consequence of this system due to software limitations, ambient noise, and hardware issues. Any formal questions or concerns about the content, text, or information contained within the body of this dictation should be directly addressed to the provider for clarification. I spent a total time of 60 minutes on the date of service in preparation, delivery, and documentation of the care provided, excluding any time spent in the performance of separately billed services. Most of the time spent to review old records from [place], multiple recent hospitalizations, chemotherapy regimens, discussing with pharmacy and nursing staff, reviewing his labs, imaging, bone marrow biopsy, update his orders, and discussing the plan with patient, his mother. * Tegan Burleson LPN - 08/14/2023 9:17 AM EDT Vitals: 08/14/23 0917 Temp: 35.9 C (96.7 F) Pulse: 87 Resp: 16 SpO2: 98% BP: 103/67 EXAM RM 7 documented in this encounter Plan of Treatment Upcoming Encounters Date Type Department Care Team (Late st Contact Info) Description 09/07/2023 7:15 AM EDT Nurse Only Hematology Oncology [facility], [address] [address] [place], Nurse Lab Hem/Onc [address] [place] [address] 09/07/2023 8:00 AM EDT Hem/Onc Treatment Hematology Oncology [facility], [address] [address] [place], Chair 19 Hem/Onc [address] [place] [address] 09/07/2023 2:00 PM EDT Appointment Radiology, [address] [address] 09/09/2023 10:30 AM EDT Office Visit Hematology/Oncology, [address] [address] Lakeshia Stone CRNP [address] [place] [address] 09/09/2023 11:00 AM EDT Hem/Onc Treatment Hematology/Oncology Treatment, [address] [address] [facility], Chair1 Hem Onc [address] [place] [address] 09/09/2023 1:00 PM EDT Office Visit Palliative Medicine, [address] [place] [address] Tessa Rubio PA-C [address] [place] [address] 09/11/2023 9:00 AM EDT Nurse Only Hematology Oncology [facility], [address] [address] [place], Nurse Lab Hem/Onc [address] [facility] [place] [address] 09/11/2023 10:00 AM EDT Hem/Onc Treatment Hematology Oncology [facility], [place] [address] [address] [facility] [place] [address] [place], Chair 19 Hem/Onc [facility] [place] [address] 09/11/2023 2:00 PM EDT Appointment Radiology, [address] [place] [phone] 09/14/2023 7:00 AM EDT Laboratory Laboratory, [address] [address] [facility], Lab [address] [place] [address] 09/14/2023 8:00 AM EDT Immunization/Injectio n Hematology/Oncology Treatment, [address] [address] [facility], Chair1 Hem Onc [address] [place] [address] 09/17/2023 10:30 AM EDT Laboratory Laboratory, [address] [phone] [facility], Lab [address] [place] [address] 09/17/2023 11:30 AM EDT Office Visit Hematology/Oncology, [address] [address] Ritika Godfrey CRNP [address] [place] [address] 09/17/2023 12:00 PM EDT Hem/Onc Treatment Hematology/Oncology Treatment, [address], [place] [address] [facility], Chair9 Hem Onc [address] [place] [address], [place] [address] 09/18/2023 10:00 AM EDT Laboratory Laboratory, [address], [place] [id number] [facility], Lab [address] [place] [address], [place] [address] 09/18/2023 11:30 AM EDT Hem/Onc Treatment Hematology/Oncology Treatment, [address], [place] [address] [facility], Chair5 Hem Onc [address] [place] [address], [place] [address] 09/25/2023 2:40 PM EDT Office Visit Rheumatology [address] [place] [address] Oliver Zhang MD [address] [place] [address], [place] [address] 02/19/2024 12:00 PM EST Office Visit Family [facility] [place] Maribell Garcia [address] [place] [address] Kayla Reeder DO [address] [place] [address] Health Maintenance Due Date Last Done Comments COVID-19 Vaccine (#1) 1993 Influenza Vaccine (FLU shot) (#1) 2023 11/17/2016, 11/17/2016, 11/30/2015, Additional history exists Depression Screening 07/07/2024 07/08/2023, 06/11/19 24 Albumin/Creatinine Ratio Discontinued 08/02/2021 documented as of this encounter Medical Devices Implanted Type Area Elder Counselor Device Identifier Shelf Expiration Date Model / Serial / Lot Mediport Pwr Mri 8fr [id number] - [id number] Implanted:Qty : 1 on 07/17/2023 by Medhat Angel MD at OR [facility] Right: Chest CR BARD : PERIPHERAL VASCULAR 07/16/2024 [id number] / / [id number] Port Implant W8f Poly Cath - [id number] Implanted:Qty : 1 on 07/17/2023 by Medhat Angel MD at OR 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 p Communication Trixie Le [facility] Repr esentative (appointed verbally by patient or by statute hierarchy) [email or web address] Care Teams Building Materials Sales Attendant Relationship Specialty Start Date End Date Kayla Reeder DO [address] [place] [address] PCP - General Family Medicine 06/11/23 documented as of this encounter
--- OUTSIDE RECORDS SUMMARY | 2023-09-18 21:18 | External Medical Summary | Summary of Care ---
Author Name Unknown Organization [facility] Address [address] [place] [address] Phone [phone] Care Team Providers Care Television And Radio Repairer Name Role Phone ReederMelissarosio Clarke DO Primary Care Provider [phone]- [phone] Reason for Visit * Reason Comments Follow Up Encounter Details Date Type Department Care Team ([facility] st Contact Info) Description 08/14/2023 10:00 AM EDT Telemedicine Hematology/Oncology , [facility] [address] [place] [address] Mike Chaudhary MD [address] [place] [address] Herve Hurtadoed [facility] Hem Onc Clinic [address] [place] [address] Burkitt lymphoma of intra-abdominal lymph [...] two unique identifiers. 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 The patient agreed to participate. 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 Also, patient with remotehistory of immunosuppressive meds. NEGATIVE HIV. High risk (retroperitoneal abdominal mass, > 7cm, High LDH). [email or web address]/[email or web address] Bulky disease (single mass >7 cm) Stage III (Retroperitoneal disease), with no bone marrow, or DENTAL SPECIALIST involvement (LP x 2, Rare atypicallymphocytes W/small lymphocytes favor reactive lymphomonocytosis, flow:no evidence of clonal or aberrant cells) Retroperitoneal biopsy; IHC: Aggressive CD10+ B-cell lymphoma with EBV expression. Ki-67 = 80-90%. Flow cytometry: RJ21-ivwuqxny B cell population expressing kappa light chains. FISH: t(8:14). 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 H/O seizures, last was in high school, has been on Depakote and toapmax for years Cognitive, and learning disabilities Gout HTN Former smoker, quit 2 years ago Treatment rendered: CALGB 1002 Pre-phase: Cyclophosphamide 200 mg/m2 IV days 1-5 (06/26/23-06/30/23) Prednisone 60 mg/m2 PO days 1-7 IT MTX 12 mg (07/02/23, 07/22/23) Current treatment: [email or web address]://[email or web address]/doi/[email or web address] Risk-adapted DA-EPOCH-R Q 21 days, with G-CSF [...] nodes (HCC) 06/26/2023 - 07/09/2023 Chemotherapy CALGB 21909 Pre-Phase ONLY (1 Cycle/14 Days) [id number] 07/01/2023 - 07/01/2023 Chemotherapy OP CHOP-R every 21 days (Lymphoma) [id number] 07/02/2023 - 07/09/2023 Chemotherapy IP DA-EPOCH every 21 days (Lymphoma) [id number] 07/02/2023 - Supportive Therapy SCP - INTRATHECAL CHEMOTHERAPY (HEMATOLOGY) [id number] Plan Provider: Yaz Molina MD Treatment goal: Supportive Line of treatment: [No plan line of treatment] 07/24/2023 - Chemotherapy OP DA-EPOCH-R every 21 days (Clinic Administration 48hr EPOCH infusion) [id number] 07/27/2023 - 07/27/2023 Chemotherapy Outpatient DA R-EPOCH Home Health Administration (48hr EPOCH infusion) [id number] 08/11/2023 - Supportive Therapy SCP - PORT [...] his mother to establish care with outpatient emergency management director for evaluation, treatment of his newly diagnosed Burkittcell lymphoma. Patient lives 1 hour away from [facility]. He lives with his 4-year-old son. Patient is . He is on disability. Patient was admitted to [facility], and then transferred to [facility] because of Burkitt's lymphoma with hospital courses as below HOSPITAL COURSE (focused): - [facility] 06/20/2023 - 07/07/2023 (17 days): "Farhad Franco is 32 year old male with a past medical history significant for cerebral vasculitis (primary cerebral angiitis following Rheumatology in [place]) complicated by stroke at the age of7, migraine with aura, nephrolithiasis, petite mal seizures presented to [facility] with complaint of abdominal pain. Transferred from [facility] ER to [facility] to assess for IR biopsy in the setting of rapidly enlarging retroperitoneal mass on CT imaging. As per mother, he was on number of medications for his vasculitis like CellCept, Cytoxan, methotrexate from 1997 through 2014. 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 His uric acid was elevated s/p [...] 06/25/23, lumbar puncture 07/02/23" HOSPITAL COURSE (focused) [facility]- 07/12/2023 - 07/14/2023 (2 days): 32 yo male presents to the [facility] ED c/o headache. Found to be pancytopenic [...] mood 08/14/2009 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 Follows in [place] q6m Cerebrovascular accident (CVA) (HCC) Gastroesophageal reflux [...] performed by Laurence Dent MD at ENDOSCOPY [facility] EGD, FLEXIBLE, DIAGNOSTIC 02/05/2022 normal bx / ESOPHAGOGASTRODUODENOSCOPY (EGD), FLEXIBLE, TRANSORAL, DIAGNOSTIC performed by Laurence Dent MD at ENDOSCOPY [facility] INFORMATION Arteriograms. INSER TUNN ACC DEV;5 YRS/OLDER Right 07/17/2023 INSERT TUNNELED CENTRAL VENOUS ACCESS WITH SUBQ PORT performed by Medhat Angel MD at OR [facility] IR BIOPSY 06/22/2023 LA ANESTH,OPEN HEAD SURGERY Social History Tobacco Use [...] other nostril. 2 Each 3 Magic Swizzle (Onxvydiko-Kgiqbtjc-Kqgwzw) oral solution Swish and spit 15 mL [...] WBCs Imaging: FLUORO GUIDED CHEMO ADMIN INTO DENTAL SPECIALIST Result Date: 07/22/2023 IMPRESSION Successful fluoroscopy guided lumbar puncture and intrathecal chemotherapy administration without immediate complication. IR INTERVENTIONAL RADIOLOGY PROCEDURE IN OR Result Date: 07/17/2023 IMPRESSION: Successful placement of a chest power injectable medical port. MRI BRAIN W WO CONTRAST Result Date: 07/13/2023 IMPRESSION: No acute intracranial abnormality nor suspicious lesion. Chronic left DIESEL ENGINE MECHANIC APPRENTICE territory infarct. CTA HEAD/CTA NECK Result Date: [...] Retroperitoneum, CT guided fine needle aspiration: - VB44-lubtjoeu B-cell lymphoma expressing EBV and t(8:14), consistent [...] and specimens are preparedfor cell blocks at [facility]. The cell blocks are submitted in cassettes A1/A3 and processed at [facility]./MZ Prepared by: Formalin fixation time: 10 hours [...] controls. CD3 stain background small sized T-cells. Sartell-5 stains B-cells and is diffusely positive in [...] Villafuerte DO Time: 12:37 Source: Retroperitoneum Part: [id number] Pass(es): 1 Adequacy: Less than optimal/Material collected [...] . Flow Interpretation Retroperitoneum core biopsy: - LC82-nivtzvlo B cell population expressing kappa light chains. [...] with a benign lymphoid population (linked report [id number]). Bone Marrow Aspirate Differential Value % Reference [...] with EBV infection (EBV DNA, QN PCR= 28151). Also, patient with remotehistory of immunosuppressive meds. NEGATIVE HIV. High risk (retroperitoneal abdominal mass, > 7cm, High LDH). 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 Ki-67 = 80-90%. Flow cytometry: WR33-ufhmaoxr B cell population expressing kappa light chains. FISH: t(8:14). MYC/IgH/CEN8 t(8;14) Detected (82%), MYC (8q24) Rearrangement Detected (68%) (MYC chromosomal translocations +) S/P [facility] 1002 Pre-phase: Cyclophosphamide 200 mg/m2 IV days [...] mother, who works from home as a [employer]. Patient has 1 son, and he is [...] We also discussed that nvolvement of the DENTAL SPECIALIST occurs in up to 20% of cases ( but he was negative for DENTAL SPECIALIST involvement), and the bone marrow is involved [...] of every cycle, will be managed between [place], and [facility]. He is scheduled with IR in [place] for IT methotrexate on day 1, day [...] x 2 did not show evidence of DENTAL SPECIALIST involvement. So plan is to proceed with [...] By: Hem/Onc --- Protocol: SCP - HYDRATION [id number] Check-out note: RTC on 08/16 to [place] for C3D1 DA EPOCH-R (Then through the rest of the week between [facility] and [place]) Need IT MTX on D1 and D5 of each cycle by IR in [place] Need bag change Q 48 hrs IVF three times weekly on week of chemo RTC on Wednesday 08/23 for G-CSF shot CBC/Diff, CMP, LDH, twice weekly RTC with AP weekly for toxicity visit Need to be seen by Neena prior to each chemo cycle This chart was completed in part utilizing [employer] Speech Voice Recognition Software. Grammatical errors, random [...] billed services. * Tegan Burleson LPN - 08/14/2023 9:17 AM EDT Vitals: 08/14/23 0917 Temp: 35.9 C (96.7 F) Pulse: 87 Resp: 16 SpO2: 98% BP: 103/67 EXAM RM 7 documented in this encounter Plan of Treatment Upcoming Encounters Date Type Department Care Team (Late st Contact Info) Description 09/07/2023 7:15 AM EDT Nurse Only Hematology Oncology [facility], [place] [address] [place] [address] [place], Nurse Lab Hem/Onc [address] [place] [address] 09/07/2023 8:00 AM EDT Hem/Onc Treatment Hematology Oncology [facility], [address] [address] [place], Chair 19 Hem/Onc [address] [place] [address] 09/07/2023 2:00 PM EDT Appointment Radiology, [address] [phone] 09/09/2023 10:30 AM EDT Office Visit Hematology/Oncology, [address] [address] Lakeshia Stone CRNP [address] [place] [address] 09/09/2023 11:00 AM EDT Hem/Onc Treatment Hematology/Oncology Treatment, [address] [address] [facility], Chair1 Hem Onc [address] [place] [address] 09/09/2023 1:00 PM EDT Office Visit Palliative Medicine, [address] 5th [place] [address] Tessa Rubio PA-C [address] [place] [address] 09/11/2023 9:00 AM EDT Nurse Only Hematology Oncology [facility], [address] [address] [place], Nurse Lab Hem/Onc [address] [place] [address] 09/11/2023 10:00 AM EDT Hem/Onc Treatment Hematology Oncology [facility], [place] [address] [facility], [place] [address] Iesha, Chair 19 Hem/Onc [address] [place] [facility] [place] [address] 09/11/2023 2:00 PM EDT Appointment Radiology, [address] [place] [phone] 09/14/2023 7:00 AM EDT Laboratory Laboratory, [address] [address] [facility], Lab [address] [place] [address] 09/14/2023 8:00 AM EDT Immunization/Injectio n Hematology/Oncology Treatment, [address] [address] [facility], Chair1 Hem Onc [address] [place] [address] [place] [address] 09/17/2023 10:30 AM EDT Laboratory Laboratory, [address] [place] [address] [facility], Lab [address] [place] [address] 09/17/2023 11:30 AM EDT Office Visit Hematology/Oncology, [address] [address] Ritika Godfrey CRNP [address] [place] [address] 09/17/2023 12:00 PM EDT Hem/Onc Treatment Hematology/Oncology Treatment, [address] [address] [facility], Chair9 [facility] [address] [facility] [address] 09/18/2023 10:00 AM EDT Laboratory Laboratory, [address] [phone] [facility], Lab [address] [facility], [place] [address] 09/18/2023 11:30 AM EDT Hem/Onc Treatment Hematology/Oncology Treatment, [address], [place] [address] [facility], Chair5 Hem Onc [address] [place], [place] [address] 09/25/2023 2:40 PM EDT Office Visit Rheumatology [place] [address] [place] [address] [facility] [place] [address] 02/19/2024 12:00 PM EST Office Visit [facility] Maribell Garcia [address] [place] [address] Kayla Reeder DO [address] [place] [address] Health Maintenance Due Date Last Done Comments COVID-19 Vaccine (#1) 1993 Influenza Vaccine (FLU shot) (#1) 2023 11/17/2016, 11/17/2016, 11/30/2015, Additional history exists Depression Screening 07/07/2024 07/08/2023, 06/11/19 24 Albumin/Creatinine Ratio Discontinued 08/02/2021 documented as of this encounter Medical Devices Implanted Type Area Packaging Specialist Device Identifier Shelf Expiration Date Model / Serial / Lot Mediport Pwr Mri 8fr [id number] - [id number] Implanted:Qty : 1 on 07/17/2023 by Medhat Angel MD at OR [facility] Right: Chest CR BARD : PERIPHERAL VASCULAR 07/16/2024 [id number] / / [id number] Port Implant W8f Poly Cath - [id number] Implanted:Qty : 1 on 07/17/2023 by Medhat Angel MD at OR [facility] CR BARD : PERIPHERAL VASCULAR [id number] 07/16/2024 [id number] / / [id number] documented as of this encounter Visit Diagnoses [...] Agents on File Name Relationship Healthcare Agent [facility] p Communication Tirxie [facility] Repr esentative (appointed verbally by patient or by statute hierarchy) [email or web address] Care Teams Television And Radio Repairer Relationship Specialty Start Date End Date Kayla Reeder DO [address] [facility] [place] [address] PCP - General Family Medicine 06/11/23 documented as of this encounter
--- OUTSIDE RECORDS SUMMARY | 2023-09-18 21:18 | External Medical Summary | Summary of Care ---
Author Name Unknown Organization [facility] Address [address] [place] [address] Phone [phone] Care Team Providers Care Superintendent Meter Tests Name Role Phone Varinder Kayla Clarke DO Primary Care Provider +1- [phone] Reason for Visit * Reason Comments Outpatient Testing Encounter Details Date Type Department Care Team ([facility] st Contact Info) Description 09/04/2023 10:00 AM EDT Laboratory Laboratory, [facility] [address] [place] [phone] [facility], Lab [address] [place] [address] Burkitt lymphoma of intra-abdominal lymph [...] Description 09/04/2023 11:00 AM EDT Telemedicine Hematology/Oncology, [facility] [address] [facility] [place] [address] Mike Chaudhary MD [address] [place] [facility] [place] [address] [facility] Hem Onc Clinic [address] [place] [address] Arrived 09/07/2023 7:15 AM EDT Nurse Only Hematology Oncology [facility] [address] [facility] [address] [place], Nurse Lab Hem/Onc [address] [place] [address] 09/07/2023 8:00 AM EDT Hem/Onc Treatment Hematology Oncology [facility] [address] [address] I[place], Chair 19 Hem/Onc [address] [place] [address] 09/07/2023 2:00 PM EDT Appointment Radiology, [address] [phone] 09/09/2023 11:00 AM EDT Hem/Onc Treatment Hematology/Oncology Treatment, [address] [address] [facility], Chair1 Hem Onc [address] [place] [address] 09/09/2023 1:00 PM EDT Office Visit Palliative Medicine, [address] 5[address] [place] [address] Tessa Rubio PA-C [address] [place] [address] 09/11/2023 9:00 AM EDT Nurse Only Hematology Oncology [facility] [address] [address] [place], Nurse Lab Hem/Onc [address] [place] [address] 09/11/2023 10:00 AM EDT Hem/Onc Treatment Hematology Oncology [facility] [address] [address] [place], Chair 19 Hem/Onc [address] [place] [address] 09/11/2023 2:00 PM EDT Appointment Radiology, [place] [address] [place] [address] 09/14/2023 7:00 AM EDT Laboratory Laboratory, [address] [address] [facility], Lab [address] [place] [address] 09/14/2023 8:00 AM EDT Immunization/Injection Hematology/Oncology Treatment, [address] [address] [facility], Chair1 Hem Onc [address] [place] [address] 09/18/2023 10:00 AM EDT Laboratory Laboratory, [address] [phone] [facility], Lab [address] [place] [address] 09/18/2023 11:00 AM EDT Telemedicine Hematology/Oncology, [address] [address] Mike Chaudhary MD [address] [place] [address] Cart, Telemed [facility] Hem Onc Clinic [address] [place] [address] 09/25/2023 2:40 PM EDT Office Visit Rheumatology [address] [place] [address] Oliver Zhang MD [address] [place] [address] [place] [address] 02/19/2024 12:00 PM EST [facility] [address] [place] [place] [phone] Kayla Reeder DO [address] [place] [address] Pending Results Name Type Priority Associated Diagnoses Date /Time URIC ACID Lab STAT 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) 09/04/2023 10:27 AM EDT LD Lab STAT 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) 09/04/2023 10:27 AM EDT CBC WITH WBC DIFFERENTIAL Lab STAT 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) 09/04/2023 10:27 AM EDT TYPE AND SCREEN Lab STAT 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) 09/04/2023 10:27 AM EDT CBC Lab STAT Burkitt lymphoma [...] this encounter Medical Devices Implanted Type Area Front Desk Monitor Device Identifier Shelf Expiration Date Model / Serial / Lot Mediport Pwr Mri 8fr [id number] - [id number] Implanted:Qty : 1 on 07/17/2023 by Medhat Angel MD at OR [facility] Right: Chest CR BARD : PERIPHERAL VASCULAR 07/16/2024 [id number] / / [id number] Port Implant W8f Poly Cath - [id number] Implanted:Qty : 1 on 07/17/2023 by Medhat Angel MD at OR [facility] CR BARD : PERIPHERAL VASCULAR [id number] 07/16/2024 [id number] / / [id number] documented as of this encounter Visit Diagnoses [...] Agents on File Name Relationship Healthcare Agent [facility] p Communication Trixie Le [facility] Repr esentative (appointed verbally by patient or by statute hierarchy) [email or web address] Care Teams Superintendent Meter Tests Relationship Specialty Start Date End Date Kayla Reeder DO [address] [facility] [place] [address] PCP - General Family Medicine 06/11/23 documented as of this encounter
--- OUTSIDE RECORDS SUMMARY | 2023-09-18 21:18 | External Medical Summary | Summary of Care ---
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) Procedures WA DOXORUBIC HCL 10 MG VL CHEMO WA VINCRISTINE SULFATE 1 MG INJ WA FOSAPREPITANT INJECTION WA ETOPOSIDE 10 MG INJ WA INJECTION, RITUXIMAB-PVVR, BIOSIMILAR, (RUXIENCE), 10 MG WA INJ, NYVEPRIA WA INJ, CYCLOPHOSPHAMIDE, NOS Elvis Villalobos [facility] [address] [facility] [place] [address] Anc Hem[facility]Onc [facility] [address] [place] [address] Referral ID Status Reason Start Date Expiration Date V isits Requested Visits Authorized [id number] Authorized 07/23/2023 01/22/2024 [id number] Encounter Details Date Type Department Care Team ([facility] st Contact Info) Description 08/24/2023 8:00 AM EDT Immunization/ Injection Hematology/Oncology Treatment, [facility] [place] [id number], Chair1 Hem Onc [address] [facility] [place] [address] Encounter for antineoplastic chemotherapy*; Burkitt lymphoma of [...] Tablets before bedtime. 56 Tablet 08/22/2023 Active Topiramate 100 MG Oral Tablet (topAMAX) TAKE ONE TABLET BY MOUTH TWICE A DAY (MORNING AND BEFORE BEDTIME) 180 Tablet 3 08/04/2022 08/28/19 24 Discontinu ed(Refill) Buprenorphine HCl 2 MG Sublingual Tablet Sublingual (Subutex)Indication s:Cancer related pain Place 0.5 Tablets under the tongue in the morning and 0.5 Tablets in the evening. 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 When ANC less than 500. 30 Tablet 07/24/2023 08/28/19 24 Discontinu ed(Refill) documented as of this encounter (statuses as of 09/04/2023) Active Problems Problem Noted Date Diagnosed Date Encounter for antineoplastic chemotherapy 2023 Immunodeficiency 07/20/2023 [...] Nursing Notes * Radha López LPN - 08/24/2023 8:38 AM EDT [place] 3 [facility] given SQ left arm. Patient left IVC by ambulating. Accompanied by Family. Voiced no complaints. Radha López LPN 08/24/2023 8:38 AM documented in this encounter Plan of Treatment Upcoming Encounters Date Type Department Care Team (Late st Contact Info) Description 09/07/2023 7:15 AM EDT Nurse Only Hematology Oncology [facility], [address] [address] [place], Nurse Lab Hem/Onc [address] [place] [address] 09/07/2023 8:00 AM EDT Hem/Onc Treatment Hematology Oncology [facility], [address] [address] [place], Chair 19 Hem/Onc [address] [place] [address] 09/07/2023 2:00 PM EDT Appointment Radiology, [address] [address] 09/09/2023 10:30 AM EDT Office Visit Hematology/Oncology, [address] [place] [address] Lakeshia Stone CRNP [address] [place] [address] 09/09/2023 11:00 AM EDT Hem/Onc Treatment Hematology/Oncology Treatment, [address] [place] [address] [facility], Chair1 Hem Onc [address] [place] [address] 09/09/2023 1:00 PM EDT Office Visit Palliative Medicine, [address] 5th [place] [address] Tessa Rubio, PA-C [address] [place] [address] 09/11/2023 9:00 AM EDT Nurse Only Hematology Oncology [facility], [address] [address] [place], Nurse Lab Hem/Onc [address] [place] [address] 09/11/2023 10:00 AM EDT Hem/Onc Treatment Hematology Oncology [facility], [address] [address] [place], Chair 19 Hem/Onc [address] [place] [address] 09/11/2023 2:00 PM EDT Appointment Radiology, [address] [address] 09/14/2023 7:00 AM EDT Laboratory Laboratory, [address] [address] [facility], Lab [address] [place] [address] 09/14/2023 8:00 AM EDT Immunization/Injectio n Hematology/Oncology Treatment, [address] [address] [facility], Chair1 Hem Onc [address] [place] [address] 09/17/2023 10:30 AM EDT Laboratory Laboratory, [address] [address] [facility], Lab [address] [place] [address] 09/17/2023 11:30 AM EDT Office Visit Hematology/Oncology, [address] [place] [address] Ritika Godfrey CRNP [address] [place] [address] 09/17/2023 12:00 PM EDT Hem/Onc Treatment Hematology/Oncology Treatment, [address] [place] [address] [facility], Chair9 Hem Onc [address] [place] [address] 09/18/2023 10:00 AM EDT Laboratory Laboratory, [address] [place] [address] [facility], Lab [address] [place] [address] 09/18/2023 11:30 AM EDT Hem/Onc Treatment Hematology/Oncology Treatment, [address] [place] [address] [facility], Chair5 Hem Onc [address] [place] [address], [place] [address] 09/25/2023 2:40 PM EDT Office Visit Rheumatology [place] [phone] [facility] [place], [place] [address] Oliver Zhang MD [address] [place] [address] [place] [address] 02/19/2024 12:00 PM EST Office Visit Family Practice [address], [place] [address] [place] [place] [address] Kayla Reeder DO [address] [place] [place] [address] Health Maintenance Due Date Last Done Comments COVID-19 Vaccine (#1) 1993 Influenza Vaccine (FLU shot) (#1) 2023 11/17/2016, 11/17/2016, 11/30/2015, Additional history exists Depression Screening 07/07/2024 07/08/2023, 06/11/19 24 Albumin/Creatinine Ratio Discontinued 08/02/2021 documented as of this encounter Medical Devices Implanted Type Area Instrument Maker Device Identifier Shelf Expiration Date Model / Serial / Lot Mediport Pwr Mri 8fr [id number] - [id number] Implanted:Qty : 1 on 07/17/2023 by Medhat Angel MD at OR [facility] Right: Chest CR BARD : PERIPHERAL VASCULAR 07/16/2024 [id number] / / [id number] Port Implant W8f Poly Cath - [id number] Implanted:Qty : 1 on 07/17/2023 by Medhat Angel MD at OR [facility] CR BARD : PERIPHERAL VASCULAR [id number] 07/16/2024 [id number] / / [id number] documented as of this encounter Visit Diagnoses Diagnosis Encounter for antineoplastic chemotherapy- Primary 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) Burkitt's tumor or lymphoma of intra-abdominal lymph nodes documented in this encounter Administered Medications Inactive Administered Medications - up to 3 most recent administrations Medication Order MAR Action Action Date Dose Rate Site Pegfilgrastim-apgf ([facility]) inj 6 mg 6 mg, Subcutaneous, ONCE, On Thu08/24/23 at 0900, For 1 dose Given 08/24/2023 8:36 AM EDT 6 mg Arm L eft Upper documented in this encounter Advance Directives [...] Agents on File Name Relationship Healthcare Agent [facility] Communication Trixie Le [facility] Repr esentative (appointed verbally by patient or by statute hierarchy) [email or web address] Care Teams [employer] Relationship Specialty Start Date End Date Kayla Reeder DO [address] [facility] [place] [address] PCP - General Family Medicine 06/11/23 documented as of this encounter
--- OUTSIDE RECORDS SUMMARY | 2023-09-18 21:18 | External Medical Summary ---
Author Name Unknown Address Unknown Organization K1F:[facility] - [address] [place] [address] Laboratory Report Ordering Provider Test Date Status MATTI BARAJAS 09/04/2023 10:50:54 Final Observation Date Value Abnormality Reference (Units ) Status Color of Urine by Auto 09/04/2023 10:50:54 Yellow Final Clarity, Urine 09/04/2023 10:50:54 Clear Final Glucose [Mass/volume] in Urine by Automated test strip 09/04/2023 10:50:54 Negative (mg/dL) Final Bilirubin.total [Presence] in Urine by Automated test strip 09/04/2023 10:50:54 Negative Final Ketones [Mass/volume] in Urine by Automated test strip 09/04/2023 10:50:54 Negative (mg/dL) Final Specific gravity, Urine 09/04/2023 10:50:54 1.030 1.003-1.030 Final Hemoglobin [Presence] in Urine by Automated test strip 09/04/2023 10:50:54 Negative Final pH, Urine 09/04/2023 10:50:54 7.0 5.0-7.5 (Units) Final Protein [Mass/volume] in Urine by Automated test strip 09/04/2023 10:50:54 Trace (mg/dL) Final Urobilinogen [Mass/volume] in Urine by Automated test strip 09/04/2023 10:50:54 1.0 (mg/dL) Final Nitrite [Presence] in Urine by Automated test strip 09/04/2023 10:50:54 Negative Negative Final Leukocyte esterase [Presence] in Urine by Automated test strip 09/04/2023 10:50:54 Negative Negative Final Annotation Comment 09/04/2023 10:50:54 Final Screen negative - Microscopi c not performed. Performing Location [facility] [address] [place] [address]
--- OUTSIDE RECORDS SUMMARY | 2023-09-18 21:18 | External Medical Summary | Summary of Care ---
Author Name Unknown Organization [facility] Address [address] [place] [address] Phone [phone] Care Team Providers Care Research Study Assistant Name Role Phone Varinder Kayla Clarke DO Primary Care Provider +1- [phone] Reason for Visit * Reason Comments Outpatient Testing Encounter Details Date Type Department Care Team ([facility] st Contact Info) Description 09/04/2023 10:00 AM EDT Laboratory Laboratory, [facility] [address] [place] [address] [facility], Lab [address] [place] [address] Burkitt lymphoma of intra-abdominal lymph [...] Description 09/04/2023 11:00 AM EDT Telemedicine Hematology/Oncology, [facility] 400 [place] [address] Mike Chaudhary MD [address] [place] [address] Herve Hurtadoed [facility] Hem Onc Clinic [address] [place] [address] Arrived 09/07/2023 7:15 AM EDT Nurse Only Hematology Oncology [facility] [address] [facility] [address] [facility] [address] [place], Nurse Lab Hem/Onc [address] [place] [address] 09/07/2023 8:00 AM EDT Hem/Onc Treatment Hematology Oncology [facility], [address] [address] [place], Chair 19 Hem/Onc [address] [place] [address] 09/07/2023 2:00 PM EDT Appointment Radiology, [address] [phone] 09/09/2023 11:00 AM EDT Hem/Onc Treatment Hematology/Oncology Treatment, [address] [address] [facility], Chair1 Hem Onc [address] [place] [address] 09/09/2023 1:00 PM EDT Office Visit Palliative Medicine, [address] 5th [place] [address] Tessa Rubio PA-C [address] [place] [address] 09/11/2023 9:00 AM EDT Nurse Only Hematology Oncology [facility], [address] [address] [place], Nurse Lab Hem/Onc [address] [place] [address] 09/11/2023 10:00 AM EDT Hem/Onc Treatment Hematology Oncology [facility], [address] [address] [place], Chair 19 Hem/Onc [address] [place] [address] 09/11/2023 2:00 PM EDT Appointment Radiology, [place] [address] [place] [address] 09/14/2023 7:00 AM EDT Laboratory Laboratory, [address] [address] [facility], Lab [address] [place] [address] 09/14/2023 8:00 AM EDT Immunization/Injection Hematology/Oncology Treatment, [address] [address] [facility], Chair1 Hem Onc [address] [place] [address] 09/18/2023 10:00 AM EDT Laboratory Laboratory, [address] [phone] [facility], Lab [address] [place] [address] 09/18/2023 11:00 AM EDT Telemedicine Hematology/Oncology, [address] [address] Mike Chaudhary MD [address] [place] [address] Cart, Telemed [facility] Hem Onc Clinic [address] [place] [address] 09/25/2023 2:40 PM EDT Office Visit Rheumatology [address] [place] [address] Oliver Zhang MD [address] [place] [address] [place] [address] 02/19/2024 12:00 PM EST [facility] [address] [place] [place] [phone] Kayla Reeder DO [address] [place] [place] [address] Pending Results Name Type Priority Associated Diagnoses [...] this encounter Medical Devices Implanted Type Area Customer Service Technician Device Identifier Shelf Expiration Date Model / Serial / Lot Mediport Pwr Mri 8fr [id number] - [id number] Implanted:Qty : 1 on 07/17/2023 by Medhat Angel MD at OR [facility] Right: Chest CR BARD : PERIPHERAL VASCULAR 07/16/2024 [id number] / / [id number] Port Implant W8f Poly Cath - [id number] Implanted:Qty : 1 on 07/17/2023 by Medhat Angel MD at OR [facility] CR BARD : PERIPHERAL VASCULAR [id number] 07/16/2024 [id number] / / [id number] documented as of this encounter Procedures Procedure Name Priority Date/Time Associated Diagnosis Comments CBC STAT 09/04/2023 10:27 AM EDT 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) documented in this encounter Results * (ABNORMAL) CBC (09/04/2023 10:27 AM EDT) WBC 16.51(H) 4.00 - 10.80 K/uL 09/04/2023 10:46 AM EDT LABORATORY [facility] RBC 2.87 4.50 - 5.25 M/uL 09/04/2023 10:46 AM EDT LABORATORY GL HGB 9.2(L) 14.0 - 16.8 g/dL 09/04/2023 10:46 AM EDT LABORATORY GL HCT 28.2(L) 40.0 - 48.4 % 09/04/2023 10:46 AM EDT LABORATORY GL MCV 98.3 82.0 - 99.5 fL 09/04/2023 10:46 AM EDT LABORATORY GL MCH 32.1 27.0 - 34.0 pg 09/04/2023 10:46 AM EDT LABORATORY [facility] MCHC 32.6 32.0 - 36.0 g/dL 09/04/2023 10:46 AM EDT LABORATORY [facility] RDW 20.9 11.5 - 15.5 % 09/04/2023 10:46 AM EDT LABORATORY [facility] PLT 140 140 - 400 K/uL 09/04/2023 10:46 AM EDT LABORATORY [facility] MPV 10.6 6.6 - 11.1 fL 09/04/2023 10:46 AM EDT LABORATORY GL nRBCs 1(H) <=0 /100 WBCs 09/04/2023 10:46 AM EDT LABORATORY [facility] Blood Venous blood specimen / Unknown Venipuncture / Unknown 09/04/2023 10:27 AM EDT 09/04/2023 10:27 AM EDT Mike Chaudhary MD LAB BLOOD O RDERABLES LABORATORY [facility] [address] [place] [address] documented in this encounter Visit [...] Agents on File Name Relationship Healthcare Agent [facility] p Communication Trixie Le [facility] Repr esentative (appointed verbally by patient or by statute hierarchy) [email or web address] Care Teams Research Study Assistant Relationship Specialty Start Date End Date Kayla Reeder DO [address] [facility] [place] [address] PCP - General Family Medicine 06/11/23 documented as of this encounter
--- OUTSIDE RECORDS SUMMARY | 2023-09-18 21:18 | External Medical Summary ---
Author Name Unknown Address Unknown Organization K1F:LABORATORY [facility] - [address] [place] [address] Laboratory Report Ordering Provider Test Date Status MATTI BARAJAS 09/04/2023 10:27:24 Final Observation Date Value Abnormality Reference (Units ) Status WBC, Total 09/04/2023 10:27:24 16.51 Above high normal 4.00-10.80 (K/uL) Final RBC 09/04/2023 10:27:24 2.87 4.50-5.25 (M/uL) Final Hemoglobin 09/04/2023 10:27:24 9.2 Below low normal 14.0-16.8 (g/dL) Final HCT 09/04/2023 10:27:24 28.2 Below low normal 40.0-48.4 (%) Final MCV 09/04/2023 10:27:24 98.3 82.0-99.5 (fL) Final MCH 09/04/2023 10:27:24 32.1 27.0-34.0 (pg) Final MCHC 09/04/2023 10:27:24 32.6 32.0-36.0 (g/dL) Final RDW 09/04/2023 10:27:24 20.9 11.5-15.5 (%) Final Platelets 09/04/2023 10:27:24 140 140-400 (K/uL) Final MPV 09/04/2023 10:27:24 10.6 6.6-11.1 (fL) Final Nucleated erythrocytes/100 leukocytes [Ratio] in Blood by Automated count 09/04/2023 10:27:24 1 Above high normal <=0 (/100 WBCs) Final Performing Location [facility] - [address] [place] [address]
--- OUTSIDE RECORDS SUMMARY | 2023-09-18 21:18 | External Medical Summary | Summary of Care ---
Author Name Unknown Organization [facility] Address [address] [place] [address] Phone [phone] Care Team Providers Care Business Machine Mechanic Name Role Phone Kayla Reeder DO Primary Care Provider [phone]- [phone] Encounter Details Date Type Department Care Team (Late st Contact Info) Description 08/17/2023 7:15 AM EDT Nurse Only Hematology Oncology [facility] [address] [place], [place] [phone] [place], Nurse Lab Hem/Onc [address] [place], [place] [phone] Allergies No known active allergiesdocumented as of [...] as of this encounter Miscellaneous Notes * Addendum Note - Amirah Cristobal PBT - 09/04/2023 11:22 AM EDTAddended by: AMIRAH CRISTOBAL on: 09/04/2023 11:22 AM Modules accepted: Orders * Addendum Note - Maricarmen Charles PBT - 08/17/2023 2:41 PM EDTAddended by: MARICARMEN CHARLES on: 08/17/2023 02:41 PM Modules accepted: Orders * Addendum Note - Sampson Mosher TECH - 08/17/2023 7:53 AM EDTAddended by: SAMPSON MOSHER on: 08/17/2023 07:53 AM Modules accepted: Orders documented in this encounter Plan of Treatment Upcoming Encounters Date Type Department Care Team (Late st Contact Info) Description 09/07/2023 7:15 AM EDT Nurse Only Hematology Oncology [facility], [address] [address] [place], Nurse Lab Hem/Onc [address] [place] [address] 09/07/2023 8:00 AM EDT Hem/Onc Treatment Hematology Oncology [facility], [address] [address] [place], Chair 19 Hem/Onc [address] [place] [address] 09/07/2023 2:00 PM EDT Appointment Radiology, [address] [address] 09/09/2023 11:00 AM EDT Hem/Onc Treatment Hematology/Oncology Treatment, [address] [place] [address] [facility], Chair1 Hem Onc [address] [place] [address] [place] [address] 09/09/2023 1:00 PM EDT Office Visit Palliative Medicine, [address] [place] [address] Tessa Rubio [facility] [address] [place] [address] 09/11/2023 9:00 AM EDT Nurse Only Hematology Oncology [facility], [address] [address] [place], Nurse Lab Hem/Onc [address] [place] [address] 09/11/2023 10:00 AM EDT Hem/Onc Treatment Hematology Oncology [facility], [address] [address] [place], Chair 19 Hem/Onc [address] [place] [address] 09/11/2023 2:00 PM EDT Appointment Radiology, [address] [address] 09/14/2023 7:00 AM EDT Laboratory Laboratory, [address] [phone] [facility], Lab [address] [place] [address] 09/14/2023 8:00 AM EDT Immunization/Injection Hematology/Oncology Treatment, [address] [address] [facility], Chair1 Hem Onc [address] [place] [address] 09/18/2023 10:00 AM EDT Laboratory Laboratory, [address] [phone] [facility], Lab [address] [place] [address] 09/18/2023 11:00 AM EDT Telemedicine Hematology/Oncology, [address] [address] [facility]aud[facility]ary [facility] [address] [facility] [id number] [place], Telemed [facility] Hem Onc Clinic [address] [place] [address] 09/25/2023 2:40 PM EDT Office Visit Rheumatology [place] [phone] [facility] [place], [place] [address] Oliver Zhang MD [facility] [address] [place], [place] [address] 02/19/2024 12:00 PM EST Office Visit Family [facility] [address] [place] [address] Kayla Reeder DO [address] [place] [address] Pending Results Name Type Priority Associated Diagnoses Date /Time URINALYSIS, REFLEX TO MICROSCOPIC Lab STAT 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) 09/04/2023 10:50 AM EDT EXTRA TUBES Lab Routine 09/04/2023 10 :50 AM EDT EXTRA URINE Lab Routine 09/04/2023 10 :50 AM EDT Health Maintenance Due Date Last Done Comments COVID-19 Vaccine (#1) 1993 Influenza Vaccine (FLU shot) (#1) 2023 11/17/2016, 11/17/2016, 11/30/2015, Additional history exists Depression Screening 07/07/2024 07/08/2023, 06/11/19 24 Albumin/Creatinine Ratio Discontinued 08/02/2021 documented as of this encounter Medical Devices Implanted Type Area Cleaning Crew Member Device Identifier Shelf Expiration Date Model / Serial / Lot Mediport Pwr Mri 8fr [id number] - [id number] Implanted:Qty : 1 on 07/17/2023 by Medhat Angel MD at OR [facility] Right: Chest CR BARD : PERIPHERAL VASCULAR 07/16/2024 [id number] / / [id number] Port Implant W8f Poly Cath - [id number] Implanted:Qty : 1 on 07/17/2023 by Medhat Angel MD at OR 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) CELL COUNT, CSF Routine 08/17/2023 2:40 PM EDT Encounter for antineoplastic chemotherapy 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) EXTRA GREEN TOP WITH GEL Routine 08/17/2023 7:07 AM EDT EXTRA TUBES Routine 08/17/2023 7:07 AM EDT DIFFERENTIAL, AUTOMATED STAT 08/17/2023 7:07 AM EDT 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) COMPREHENSIVE METABOLIC PANEL STAT 08/17/2023 7:07 AM EDT 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) CBC STAT 08/17/2023 7:07 AM EDT 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) LD STAT 08/17/2023 7:07 AM EDT 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) CBC STAT 08/17/2023 7:07 AM EDT 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) URIC ACID STAT 08/17/2023 7:07 AM EDT 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) documented in this encounter Results * (ABNORMAL) MANUAL DIFFERENTIAL, CSF (08/17/2023 2:40 PM EDT) Total Nucleated Cell Count, CSF 55 cells/uL 08/17/2023 4:40 PM EDT [facility] Neutrophils % 43(H) 0 - 6 % 08/17/2023 4:40 PM EDT [facility] Lymphocytes % 34(L) 40 - 80 % 08/17/2023 4:40 PM EDT [facility] Monocytes % 23 15 - 45 % 08/17/2023 4:40 PM EDT [facility] Absolute Neutrophils 23.65 cells/uL 08/17/2023 4:40 PM EDT [facility] Absolute Lymphocytes 18.70 cells/uL 08/17/2023 4:40 PM EDT [facility] Absolute Monocytes 12.65 cells/uL 08/17/2023 4:40 PM EDT [facility] Cerebrospinal Fluid Cerebrospinal fluid specimen / Unknown Non-blood Collection / Unknown 08/17/2023 2:40 PM EDT 08/17/2023 2:41 PM EDT Narrative [facility] - 08/17/2023 4:40 PM EDT Some reference ranges and other method performance specifications have not been established for this fluid. The test results must be integrated into the clinical context for interpretation. Mike Chaudhary MD LAB FLUID A ND STOOL ORDERABLES LABORATORY [facility] [address] [place] [address] * (ABNORMAL) CELL COUNT, CSF (08/17/2023 2:40 PM EDT) Color, CSF Colorless Colorless 08/17/2023 4:39 PM EDT [facility] Clarity, CSF Clear Clear 08/17/2023 4:39 PM EDT [facility] Color, Supernatant CSF Colorless Colorless 08/17/2023 4:39 PM EDT [facility] Tube Number, CSF 3 08/17/2023 4:39 PM EDT [facility] Total Nucleated Cell Count, CSF 55(H) <5 cells/uL 08/17/2023 4:39 PM EDT LABORATORY [facility] RBC, CSF 203(H) <5 cells/uL 08/17/2023 4:39 PM EDT LABORATORY [facility] Cerebrospinal Fluid Cerebrospinal fluid specimen / Unknown Non-blood Collection / Unknown 08/17/2023 2:40 PM EDT 08/17/2023 2:41 PM EDT Narrative LABORATORY [facility] - 08/17/2023 4:39 PM EDT Some reference ranges and other method performance specifications have not been established for this fluid. The test results must be integrated into the clinical context for interpretation. Mike Chaudhary MD LAB FLUID A ND STOOL ORDERABLES LABORATORY [facility] [address] [place] [address] * EXTRA GREEN TOP WITH GEL (08/17/2023 7:07 AM EDT) Blood Venous blood specimen / Unknown 08/17/2023 7:07 AM EDT 08/17/2023 7:53 AM EDT Mike Chaudhary MD LAB BLOOD O RDERABLES LABORATORY [facility] [address] [place] [address] * (ABNORMAL) DIFFERENTIAL, AUTOMATED (08/17/2023 7:07 AM EDT) WBC 7.29 4.00 - 10.80 K/uL 08/17/2023 7:30 AM EDT [facility] Neutrophils % 85.2(H) 40.0 - 75.0 % 08/17/2023 7:30 AM EDT LABORATORY [facility] Lymphocytes % 8.2(L) 18.0 - 42.0 % 08/17/2023 7:30 AM EDT LABORATORY [facility] Monocytes % 3.8 1.0 - 11.0 % 08/17/2023 7:30 AM EDT LABORATORY [facility] Eosinophils % 0.0 0.0 - 6.0 % 08/17/2023 7:30 AM EDT LABORATORY [facility] Basophils % 0.5 0.0 - 2.0 % 08/17/2023 7:30 AM EDT LABORATORY [facility] Immature Granulocytes % 2.3(H) 0.0 - 2.0 % 08/17/2023 7:30 AM EDT LABORATORY [facility] Absolute Neutrophils 6.20 1.80 - 7.70 K/uL 08/17/2023 7:30 AM EDT LABORATORY [facility] Absolute Lymphocytes 0.60(L) 1.00 - 4.80 K/ul 08/17/2023 7:30 AM EDT LABORATORY [facility] Absolute Monocytes 0.28 0.00 - 1.10 K/uL 08/17/2023 7:30 AM EDT LABORATORY [facility] Absolute Eosinophils 0.00 0.00 - 0.70 K/uL 08/17/2023 7:30 AM EDT LABORATORY [facility] Absolute Basophils 0.04 0.00 - 0.20 K/uL 08/17/2023 7:30 AM EDT LABORATORY [facility] Absolute Immature Granulocytes 0.17 0.00 - 0.20 K/uL 08/17/2023 7:30 AM EDT LABORATORY [facility] Blood Blood sample taken from central line / Unknown Central Line / Unknown 08/17/2023 7:07 AM EDT 08/17/2023 7:27 AM EDT Mike Chaudhary MD LAB BLOOD O RDERABLES LABORATORY [facility] [address] [place] [address] * (ABNORMAL) CBC (08/17/2023 7:07 AM EDT) [facility] WBC 7.29 4.00 - 10.80 K/uL 08/17/2023 7:30 AM EDT LABORATORY [facility] RBC 3.05 4.50 - 5.25 M/uL 08/17/2023 7:30 AM EDT LABORATORY [facility] HGB 9.5(L) 14.0 - 16.8 g/dL 08/17/2023 7:30 AM EDT LABORATORY [facility] HCT 29.1(L) 40.0 - 48.4 % 08/17/2023 7:30 AM EDT LABORATORY [facility] MCV 95.4 82.0 - 99.5 fL 08/17/2023 7:30 AM EDT LABORATORY [facility] MCH 31.1 27.0 - 34.0 pg 08/17/2023 7:30 AM EDT LABORATORY [facility] MCHC 32.6 32.0 - 36.0 g/dL 08/17/2023 7:30 AM EDT LABORATORY [facility] RDW 19.3 11.5 - 15.5 % 08/17/2023 7:30 AM EDT LABORATORY [facility] PLT 163 140 - 400 K/uL 08/17/2023 7:30 AM EDT LABORATORY [facility] MPV 10.0 6.6 - 11.1 fL 08/17/2023 7:30 AM EDT LABORATORY [facility] nRBCs 0 <=0 /100 WBCs 08/17/2023 7:30 AM EDT LABORATORY [facility] Blood Blood sample taken from central line / Unknown Central Line / Unknown 08/17/2023 7:07 AM EDT 08/17/2023 7:27 AM EDT Mike Chaudhary MD LAB BLOOD O RDERABLES Performing Organization Address City/State/[facility] Co de Phone Number LABORATORY [facility] [address] [place] [address] * (ABNORMAL) LD (08/17/2023 7:07 AM EDT) LD 339(H) <=250 U/L 08/17/2023 8:18 AM EDT LABORATORY [facility] Blood Blood sample taken from central line / Unknown Central Line / Unknown 08/17/2023 7:07 AM EDT 08/17/2023 7:52 AM EDT Mike Chaudhary MD LAB BLOOD O RDERABLES Performing Organization Address City/[facility]/ZIP Co de Phone Number [facility] [address] [place] [address] * URIC ACID (08/17/2023 7:07 AM EDT) Uric Acid 4.5 3.4 - 7.0 mg/dL 08/17/2023 8:18 AM EDT LABORATORY [facility] Blood Blood sample taken from central line / Unknown Central Line / Unknown 08/17/2023 7:07 AM EDT 08/17/2023 7:52 AM EDT Mike Chaudhary MD LAB BLOOD O RDERABLES Performing Organization Address City/[facility] Co de Phone Number LABORATORY [facility] [address] [place] [address] * (ABNORMAL) COMPREHENSIVE METABOLIC PANEL (08/17/2023 7:07 AM EDT) BUN 17 6 - 20 mg/dL 08/17/2023 8:18 AM EDT [facility] Creatinine 0.8 0.6 - 1.2 mg/dL 08/17/2023 8:18 AM EDT [facility] Estimated Glomerular Filtration Rate >90 >=60 mL/min 08/17/2023 8:18 AM EDT [facility] Comment:eGFR is calculated b ased on the CKD-EPI 2020 equation Sodium 139 135 - 146 mmol/L 08/17/2023 8:18 AM EDT [facility] Potassium 3.8 3.5 - 5.1 mmol/L 08/17/2023 8:18 AM EDT [facility] Chloride 106 98 - 107 mmol/L 08/17/2023 8:18 AM EDT [facility] CO2 21(L) 22 - 32 mmol/L 08/17/2023 8:18 AM EDT [facility] Anion Gap 12 7 - 15 mmol/L 08/17/2023 8:18 AM EDT [facility] Glucose 148(H) 70 - 120 mg/dL 08/17/2023 8:18 AM EDT [facility] Albumin 4.2 3.8 - 5.0 g/dL 08/17/2023 8:18 AM EDT [facility] AST 25 10 - 50 U/L 08/17/2023 8:18 AM EDT [facility] Alkaline Phosphatase 80 35 - 130 U/L 08/17/2023 8:18 AM EDT [facility] Bilirubin, Total 0.2 <=1.2 mg/dL 08/17/2023 8:18 AM EDT [facility] Calcium 9.4 8.4 - 10.2 mg/dL 08/17/2023 8:18 AM EDT [facility] Protein 6.7 6.0 - 8.3 g/dL 08/17/2023 8:18 AM EDT [facility] ALT 43 10 - 50 U/L 08/17/2023 8:18 AM EDT [facility] Blood Blood sample taken from central line / Unknown Central Line / Unknown 08/17/2023 7:07 AM EDT 08/17/2023 7:52 AM EDT Mike Chaudhary MD LAB BLOOD O RDERABLES [facility] [address] [place] [address] documented in this encounter Visit Diagnoses Diagnosis 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 [place] [id number] PCP - General Family Medicine 06/11/23 documented as of this encounter
--- OUTSIDE RECORDS SUMMARY | 2023-09-18 21:19 | External Medical Summary | Summary of Care ---
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) Procedures ID DOXORUBIC HCL 10 MG VL CHEMO ID VINCRISTINE SULFATE 1 MG INJ ID FOSAPREPITANT INJECTION ID ETOPOSIDE 10 MG INJ ID INJECTION, RITUXIMAB-PVVR, BIOSIMILAR, (RUXIENCE), 10 MG ID INJ, NYVEPRIA ID INJ, CYCLOPHOSPHAMIDE, NOS Elvis Villalobos MD [address] [facility] [place] [address] Anc Hem[facility]Onc [facility] [place] [address] Referral ID Status Reason Start Date Expiration Date V isits Requested Visits Authorized [id number] Authorized 07/23/2023 01/22/2024 [id number] Encounter Details Date Type Department Care Team (Latest Contact Info) Description 07/27/2023 10:00 AM EDT Hem/Onc Treatment Hematology/Oncolog y Treatment, 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 When ANC less than 500. 30 Tablet 07/24/2023 Active Ondansetron HCl 4 MG Oral [...] starting chemotherapy. 8 Tablet 5 07/24/2023 Active HYDROmorphone HCl 2 MG Oral Tablet (Dilaudid) Take 1.5 Tablets by mouth every 4 hours as needed for moderate or severe pain 100 Tablet 07/07/2023 08/11/19 24 Discontinu ed(Refill) Buprenorphine HCl 2 MG [...] 56 Tablet 07/24/2023 08/22/19 24 Discontinu ed(Refill) predniSONE 20 MG Oral Tablet (Deltasone)Indicati ons:Encounter for antineoplastic chemotherapy,Burkit t lymphoma of intra-abdominal lymph nodes (HCC) Take 7.25 Tablets by mouth in the morning and 7.25 Tablets before bedtime. Take twice a day with food on Days 1-5 of EPOCH treatment only. 60 Tablet 5 07/24/2023 07/27/19 24 Discontinu ed(Refill) documented as of this encounter (statuses as of 08/27/2023) Active Problems Problem Noted Date Diagnosed Date [...] as of this encounter (statuses as of 08/27/2023) Resolved Problems Problem Noted Date Diagnosed Date [...] as of this encounter (statuses as of 08/27/2023) Immunizations Name Administration Dates Next Due DT [...] Sign Reading Time Taken Comments Blood Pressure 108/63 07/27/2023 1:39 PM EDT Pulse 76 07/27/2023 1:39 PM EDT Temperature 36.2 C (97.2 F) 07/27/2023 1:39 PM ED T Respiratory Rate 18 07/27/2023 1:39 PM EDT Oxygen Saturation - - Inhaled [...] as of this encounter Nursing Notes * Gabriella Mendez, RN - 07/27/2023 10:21 AM EDT [place] 10 Chemotherapy/Immunotherapy agents: Rituximab, Cyclyophosamide, Doxorubicin, Vincristine, Prednisone Consent for chemotherapy drug treatment complete, dated, and signed? yes, date - 07/01/23 Treatment lab parameters met? Yes Has treatment weight changed > than 10%? No Treatment preauthorized? Yes Urine protein: N/A Patient education completed for [...] symptoms or adverse side effects during treatment. Pt tolerated treatment at infusion center well. Pt was hooked up to home infusion at 1:49 pm. Patient left IVC by ambulating. Accompanied by Family. Voiced no complaints. Gabriella Mendez RN 07/27/2023 [facility] [address] Nursing Care Plan ID is not set. 07/27/2023 Safety and Risk for Injury Patient will remain free from injury. Assess patient's risk for falls per policy. Encourage activity as ordered per policy. Ensure appropriate safety devices are available. Implement fall prevention plan of care per policy. Include patient and caregiver in decisions related to safety. Perform safety rounds per policy. Provide and maintain safe environment. Goals: Pt will not fall at infusion center. Possible barriers to meeting goals: Ambulating with IV pole. Stability of the patient: Moderately stable - low risk of patient condition declining or worsening Summary regarding today's goals: Met: Pt did not fall at infusion center. Gabriella Mendez, RN documented in this encounter Plan of Treatment Upcoming Encounters Date Type Department Care Team (Late st Contact Info) Description 08/31/2023 10:00 AM EDT Laboratory Laboratory [facility] [place] [address] [place] [phone] [place], Lab [facility] [address] [place] [address] 09/04/2023 10:00 AM EDT Laboratory Laboratory, [address] [phone] [facility], Lab [address] [place] [address] 09/04/2023 11:00 AM EDT Telemedicine Hematology/Oncology, [address] [address] Mike Chaudhary MD [address] [place] [address] Cart, Telemed [facility] Hem Onc Clinic [address] [place] [address] 09/07/2023 7:15 AM EDT Nurse Only Hematology Oncology [facility] [address] [place] [address] [place], Nurse Lab Hem/Onc [address] [place] [address] 09/07/2023 8:00 AM EDT Hem/Onc Treatment Hematology Oncology [facility], [address] [address] [place], Chair 19 Hem/Onc [address] [place] [address] 09/07/2023 2:00 PM EDT Appointment Radiology, [address] [phone] 09/09/2023 11:00 AM EDT Hem/Onc Treatment Hematology/Oncology Treatment, [address] [address] [facility], Chair1 Hem Onc [address] [place] [address] 09/09/2023 1:00 PM EDT Office Visit Palliative Medicine, [address] [place] [address] Tessa Rubio PACatieC [address] [place] [address] 09/11/2023 9:00 AM EDT Nurse Only Hematology Oncology [facility], [address] [address] [place], Nurse Lab Hem/Onc [address] [place] [address] 09/11/2023 10:00 AM EDT Hem/Onc Treatment Hematology Oncology [facility], [address] [address] [place], Chair 19 Hem/Onc [address] [place] [address] 09/11/2023 2:00 PM EDT Appointment Radiology, [address] [phone] 09/14/2023 7:00 AM EDT Laboratory Laboratory, [facility] [phone] [facility], Lab [address] [place] [address] [phone] 09/14/2023 8:00 AM EDT Immunization/Injection Hematology/Oncology Treatment, [address] [phone] [facility], Chair1 Hem Onc [address] [place] [phone] 09/18/2023 10:00 AM EDT Laboratory Laboratory, [address] [phone] [facility], Lab [address] [place] [address] 09/18/2023 11:00 AM EDT Telemedicine Hematology/Oncology, [address] [address] Mike Chaudhary MD [address], [place] [id number] Cart, Telemed [facility] Hem Onc Clinic [address] [place] [address] 09/25/2023 2:40 PM EDT Office Visit Rheumatology [place] [phone] [facility] [place] [place] [address] Oliver Zhang MD [facility] [place] [address] 02/19/2024 12:00 PM EST Office Visit [facility] Maribell Garcia [address] [place] [address] Kayla Reeder DO [address] [place] [address] Scheduled Orders Name Type Priority Associated Diagnoses Orde r Schedule BLOOD PRESSURE Procedures STAT Encounter for antineoplastic chemotherapy 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) Expected: 07/27/2023 (Approximate), Expires: 01/23/2024 Health Maintenance Due Date Last Done Comments COVID-19 Vaccine (#1) 1993 Influenza Vaccine (FLU shot) (#1) 2023 11/17/2016, 11/17/2016, 11/30/2015, Additional history exists Depression Screening 07/07/2024 07/08/2023, 06/11/19 Albumin/Creatinine Ratio Discontinued 08/02/2021 documented as of this encounter Medical Devices Implanted Type Area Cd Storage And Materials Make Up Helper Device Identifier Shelf Expiration Date Model / Serial / Lot Mediport Pwr Mri 8fr [id number] - [id number] Implanted:Qty : 1 on 07/17/2023 by Medhat Angel MD at OR [facility] Right: Chest CR BARD : PERIPHERAL VASCULAR 07/16/2024 [id number] / / [id number] Port Implant W8f Poly Cath - [id number] Implanted:Qty : 1 on 07/17/2023 by Medhat Angel MD at OR [facility] CR BARD : PERIPHERAL VASCULAR [id number] 07/16/2024 [id number] / / [id number] documented as of this encounter Visit Diagnoses Diagnosis Encounter for antineoplastic chemotherapy- Primary 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 Administer through 0.22 micron low protein binding filter! Home Infusion Pharmacy to specify base solution and volume. To be given over 48 hours every other day for 4 days (2 bags) through home infusion company., CONTINUOUS, Starting on Thu07/27/23 at 1100, Until Thu07/27/23 at 1755 New Bag 07/27/2023 1:49 PM EDT 31.2 mL/hr Fosaprepitant Dimeglumine (Emend) 150 mg, ondansetron (Zofran) 16 mg in NSS 250 mL Infusion 150 mg, IV Piggyback, ONCE, 1 dose, On Thu07/27/23 at 1100, Administer over 30 Minutes, Give 30 minutes prior to chemotherapy. Infuse over 30 minutes. Start Infusion 07/27/2023 10:49 AM EDT 150 mg 536 mL/hr NSS infusion FOR HYDRATION Intravenous, at 500 mL/hr Administer over 2 Hours, ONCE, 1 dose, On Thu07/27/23 at 1215 Start Infusion 07/27/2023 11:41 AM EDT 1,000 mL 500 mL/hr NSS infusion Intravenous, at 50 mL/hr, PRN, Starting on Thu07/27/23 at 0830, Until Thu07/27/23 at 1755, Maintenance line Start Infusion 07/27/2023 10:36 AM EDT 50 mL/hr riTUXimab-pvvr (Ruxience) 900 mg in NSS 250 mL ivpb 900 mg (rounded from 892.5 mg = 375 mg/m2 2.38 m2 Treatment Plan BSA from Recorded weight), IV Piggyback, ONCE, 1 dose, On Thu07/27/23 at 1100, ADM AT 100mL / HR FOR THE FIRST 30 MIN THEN AT 200mL / HR FOR THE REMAINDER Rate Change 07/27/2023 12:08 PM EDT 200 mL/hr Start Infusion 07/27/2023 11:37 AM EDT 900 mg 100 mL/h r documented in this encounter Advance Directives * [...] Healthcare Agent Relationshi p Communication Trixie Le [facility] Repr esentative (appointed verbally by patient or by statute hierarchy) [email or web address] Care Teams Amplifier Mechanic Relationship Specialty Start Date End Date Kayla Reeder DO [address] [facility] [place] [address] PCP - General Family Medicine 06/11/23 documented as of this encounter
--- OUTSIDE RECORDS SUMMARY | 2023-09-18 21:19 | External Medical Summary ---
Author Name Unknown Address Unknown Organization [facility] [address] [facility] [place] [address] Laboratory Report Ordering Provider Test Date Status CHANTEL JORDAN 09/04/2023 10:27:24 Final Observation Date Value Abnormality Reference (Units ) Status BUN 09/04/2023 10:27:24 15 6-20 (mg/dL) Final Creatinine 09/04/2023 10:27:24 0.7 0.6-1.2 (mg/dL) Final Glomerular filtration rate/1.73 sq M.predicted [Volume Rate/Area] in Serum, Plasma or Blood by Creatinine-based formula (CKD-EPI) 09/04/2023 10:27:24 >90 >=60 (mL/min) Final eGFR is calculated based on the CKD-EPI 2020 equation. Sodium 09/04/2023 10:27:24 141 135-146 (m mol/L) Final Potassium 09/04/2023 10:27:24 3.8 3.5-5.1 (m mol/L) Final Cl 09/04/2023 10:27:24 106 98-107 (mm ol/L) Final CO2 09/04/2023 10:27:24 22 22-32 (mmo l/L) Final Anion gap 09/04/2023 10:27:24 13 7-15 (mmol /L) Final Glucose 09/04/2023 10:27:24 106 70-120 (mg /dL) Final Albumin 09/04/2023 10:27:24 3.9 3.8-5.0 (g /dL) Final AST (Aspartate aminotransferase) 09/04/2023 10:27:24 22 10-50 (U/L) Final Alk Phos 09/04/2023 10:27:24 117 35-130 (U/ L) Final Bilirubin, Total 09/04/2023 10:27:24 0.2 <=1 .2 (mg/dL) Final Calcium 09/04/2023 10:27:24 8.9 8.4-10.2 ( mg/dL) Final Protein 09/04/2023 10:27:24 6.3 6.0-8.3 (g /dL) Final ALT (Alanine aminotransferase) 09/04/2023 10:27:24 19 10-50 (U/L) Final Performing Location LABORATORY [facility] - [address] [place], [place] [address]keyonna Blisswsnehal [place] [address]
--- OUTSIDE RECORDS SUMMARY | 2023-09-18 21:19 | External Medical Summary ---
Author Name Unknown Address Unknown Organization [facility] - [address] [place] [address] Laboratory Report Ordering Provider Test Date Status MATTI BARAJAS 09/04/2023 10:27:24 Final Observation Date Value Abnormality Reference (Units ) Status LDH 09/04/2023 10:27:24 416 Above high normal <= 250 (U/L) Final Performing Location [facility] - [address] [place] [address]
--- OUTSIDE RECORDS SUMMARY | 2023-09-18 21:19 | External Medical Summary | Summary of Care ---
Author Name Unknown Organization [facility] Address [address] [place] [address] Phone [phone] Care Team Providers Care Mobile Device Engineer Name Role Phone ReederKaylasnehal MALDONADO Primary Care Provider [phone]- [phone] Reason for Visit * Reason Onset Date Comments Lab Draw Only 08/21/2023 Encounter Details Date Type Department Care Team (Late st Contact Info) Description 08/21/2023 Telephone Hematology/Oncology, [facility] [address] [place] [address] Mike Chaudhary MD [address] [place] [address] Lab Draw Only Allergies No known active allergiesdocumented as of this encounter (statuses as of 08/31/2023) Medications Medication Sig Dispensed Refills Start Date [...] as of this encounter (statuses as of 08/31/2023) Active Problems Problem Noted Date Diagnosed Date [...] as of this encounter (statuses as of 08/31/2023) Resolved Problems Problem Noted Date Diagnosed Date [...] as of this encounter (statuses as of 08/31/2023) Immunizations Name Administration Dates Next Due DT [...] EDT DA-EPOCH LAB MONITORING DOCUMENTATION Farhad Franco [id number] Patient Phone Numbers Communication: Chart review Indication/Staging/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 Chaudhary Treatment: DA-EPOCH Cycle 3 Patient was educated by nurse specialist at start of treatment: Yes Per communication from clinic pharmacist, Day 1 of current cycle was 08/16, which was a Thursday, meaning: Day 8 lab appt scheduled for Thursday, lab appt scheduled for , 08/26 Day lab appt scheduled for Thursday, lab appt scheduled for , 09/02 Reviewed patient chart today to monitor for Day lab completed: Patient labs completed and in chart, will follow up with lab compliance on Will follow up on 09/02(Date) for next labs due on Day 18 Of note, patient scheduled 09/03 @ [facility] lab Radha Grimm Wire Weaving Loom Setter III Hematology Oncology Oral Chemotherapy Clinic Medication Therapy Disease Management [facility] 08/31/2023 1:53 PM Time Spent on Encounter: 6 - 10 minutes * Telephone Encounter - Radha Grimm CPhT - 08/27/2023 3:16 PM EDT [facility] LAB MONITORING DOCUMENTATION Farhad Thanh Franco [id number] Patient Phone Numbers Communication: Chart review Indication/Staging/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 Chaudhary Treatment: DA-EPOCH Cycle 3 Patient [...] 08/24/23(Date) for next labs due on Day Radha Grimm Wire Weaving Loom Setter III Hematology Oncology Oral Chemotherapy Clinic Medication Therapy Disease Management [facility] 08/21/2023 2:46 PM Time Spent on Encounter: 6 - 10 minutes documented in this encounter Plan of Treatment Upcoming Encounters Date Type Department Care Team (Late st Contact Info) Description 09/04/2023 10:00 AM EDT Laboratory Laboratory, [address] [phone] [facility], Lab [address] [place] [address] 09/04/2023 11:00 AM EDT Telemedicine Hematology/Oncology, [address] [address] Mike Chaudhary MD [facility]note 2] [address] [place], [place] [phone] Cart, Telemed [facility] Hem Onc Clinic [address] [place] [address] [phone] 09/07/2023 7:15 AM EDT Nurse Only Hematology Oncology [address] [address] [place], Nurse Lab Hem/Onc [address] [place] [address] 09/07/2023 8:00 AM EDT Hem/Onc Treatment Hematology Oncology [address] [address] [place], Chair 19 Hem/Onc [address] [place] [address] [phone] 09/07/2023 2:00 PM EDT Appointment Radiology, [address] [phone] 09/09/2023 11:00 AM EDT Hem/Onc Treatment Hematology/Oncology Treatment, [address] [address] [facility], Chair1 Hem Onc [address] [place] [address] 09/09/2023 1:00 PM EDT Office Visit Palliative Medicine, [address] [address] Tessa Rubio PA-C [address] [place] [address] 09/11/2023 9:00 AM EDT Nurse Only Hematology Oncology [facility], [address] [address] [place], Nurse Lab Hem/Onc [address] [place] [address] 09/11/2023 10:00 AM EDT Hem/Onc Treatment Hematology Oncology [facility], [address] [address] [place], Chair 19 Hem/Onc [address] [place] [address] 09/11/2023 2:00 PM EDT Appointment Radiology, [address] [phone] 09/14/2023 7:00 AM EDT Laboratory Laboratory, [address] [phone] [facility], Lab [address] [place] [address] 09/14/2023 8:00 AM EDT Immunization/Injection Hematology/Oncology Treatment, [address] [address] [facility], Chair1 Hem Onc [address] [place] [address] 09/18/2023 10:00 AM EDT Laboratory Laboratory, [address] [phone] [facility], Lab [address] [place] [address] 09/18/2023 11:00 AM EDT Telemedicine Hematology/Oncology, [address] [address] Mike Chaudhary MD [address] [place] [address] Cart, Telemed [facility] Hem Onc Clinic [address] [place] [address] 09/25/2023 2:40 PM EDT Office Visit Rheumatology [place] [address] [place] [address] Oliver Zhang MD [facility] [place] [address] 02/19/2024 12:00 PM EST Office Visit Family Practice [place] Maribell Garcia [address] [place] [address] Kayla Reeder DO [address] [place] [address] Health Maintenance Due Date Last Done Comments COVID-19 Vaccine (#1) 1993 Influenza Vaccine (FLU shot) (#1) 2023 11/17/2016, 11/17/2016, 11/30/2015, Additional history exists Depression Screening 07/07/2024 07/08/2023, 06/11/19 24 Albumin/Creatinine Ratio Discontinued 08/02/2021 documented as of this encounter Medical Devices Implanted Type Area Manager Cost Device Identifier Shelf Expiration Date Model / Serial / Lot Mediport Pwr Mri 8fr [id number] - [id number] Implanted:Qty : 1 on 07/17/2023 by Medhat Angel MD at OR [facility] Right: Chest CR BARD : PERIPHERAL VASCULAR 07/16/2024 [id number] / / [id number] Port Implant W8f Poly Cath - [id number] Implanted:Qty : 1 on 07/17/2023 by Medhat Angel MD at OR [facility] CR BARD : PERIPHERAL VASCULAR [id number] 07/16/2024 [id number] / / [id number] documented as of this encounter Advance Directives [...] File Name Relationship Healthcare Agent [facility] p Communication Trixie Le [facility] Repr esentative (appointed verbally by patient or by statute hierarchy) [email or web address] Care Teams Mobile Device Engineer Relationship Specialty Start Date End Date Kayla Reeder DO [address] [place] [place] [address] PCP - General Family Medicine 06/11/23 documented as of this encounter
--- OUTSIDE RECORDS SUMMARY | 2023-09-18 21:19 | External Medical Summary | Summary of Care ---
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, Lab [address] [place] [address] 09/04/2023 11:00 AM EDT Telemedicine Hematology/Oncology, [address] [place] [address] Mike Chaudhary MD [address] [place] [address] Cart, Telemed [facility] Hem Onc Clinic [address] [place] [address] 09/07/2023 7:15 AM EDT Nurse Only Hematology Oncology [facility], [address] [address] [place], Nurse Lab Hem/Onc [address] [place] [address] 09/07/2023 8:00 AM EDT Hem/Onc Treatment Hematology Oncology [facility], [address] [address] [place], Chair 19 Hem/Onc [address] [place] [address] 09/07/2023 2:00 PM EDT Appointment Radiology, [address] [phone] 09/09/2023 11:00 AM EDT Hem/Onc Treatment Hematology/Oncology Treatment, [address] [address] [facility], Chair1 Hem Onc [address] [place] [address] 09/09/2023 1:00 PM EDT Office Visit Palliative Medicine, [address] 5th [place] [address] Tessa Rubio PA-C [address] [place] [address] 09/11/2023 9:00 AM EDT Nurse Only Hematology Oncology [facility], [address] [address] [place], Nurse Lab Hem/Onc [address] [place] [address] 09/11/2023 10:00 AM EDT Hem/Onc Treatment Hematology Oncology [facility], [place] [address] [place] [address] [place], Chair 19 Hem/Onc [address] [place] [address] 09/11/2023 2:00 PM EDT Appointment Radiology, [address] [phone] 09/14/2023 7:00 AM EDT Laboratory Laboratory, [address] [phone] [facility], Lab [address] [place] [address] 09/14/2023 8:00 AM EDT Immunization/Injection Hematology/Oncology Treatment, [address] [address] [facility], Chair1 Hem Onc [address] [place] [address] 09/18/2023 10:00 AM EDT Laboratory Laboratory, [address] [address] [facility], Lab [address] [place] [address] 09/18/2023 11:00 AM EDT Telemedicine Hematology/Oncology, [address] [address] Mike Chaudhary MD [address] [place] [address] [place], Telemed 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) 08/31/2023 10:01 AM EDT COMPREHENSIVE METABOLIC PANEL Lab STAT 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) 08/31/2023 10:01 AM EDT FLOW CYTOMETRY, LEUKEMIA LYMPHOMA PANEL Lab STAT 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) 08/31/2023 10:01 AM EDT TYPE AND SCREEN Lab STAT 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) 08/31/2023 10:01 AM EDT CBC Lab STAT 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) 08/31/2023 10:01 AM EDT DIFFERENTIAL, AUTOMATED Lab STAT 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) 08/31/2023 10:01 AM EDT Health Maintenance Due Date Last Done Comments COVID-19 Vaccine (#1) 1993 Influenza Vaccine (FLU shot) (#1) 2023 11/17/2016, 11/17/2016, 11/30/2015, Additional history exists Depression Screening 07/07/2024 07/08/2023, 06/11/19 24 Albumin/Creatinine Ratio Discontinued 08/02/2021 documented as of this encounter Medical Devices Implanted Type Area Multi Township Assessor Device Identifier Shelf Expiration Date Model / Serial / Lot Mediport Pwr Mri 8fr [id number] - [id number] Implanted:Qty : 1 on 07/17/2023 by Medhat Agnel MD at OR [facility] Right: Chest CR BARD : PERIPHERAL VASCULAR 07/16/2024 [id number] / / [id number] Port Implant W8f Poly Cath - [id number] Implanted:Qty : 1 on 07/17/2023 by Medhat Angel MD at OR [facility] CR BARD : PERIPHERAL VASCULAR [id number] 07/16/2024 [id number] / / [id number] documented as of this encounter Visit Diagnoses [...] Agents on File Name Relationship Healthcare Agent [facility] p Communication Trixie Le [facility] Repr esentative (appointed verbally by patient or by statute hierarchy) [email or web address] Care Teams Genetic Technologist Relationship Specialty Start Date End Date Kayla Reeder DO [address] [facility] [place] [address] PCP - General Family Medicine 06/11/23 documented as of this encounter
--- OUTSIDE RECORDS SUMMARY | 2023-09-18 21:19 | External Medical Summary | Summary of Care ---
Author Name Unknown Organization [facility] Address [address] [place] [address] Phone [phone] Care Team Providers Care Toxicology Supervisor Name Role Phone Kayla Reeder DO Primary Care Provider +1- [phone] Reason for Visit * Reason Comments Treatment 1 Unit PRBC Encounter Details Date Type Department Care Team (Latest Contact Info) Description 08/27/2023 12:00 PM EDT Hem/Onc Treatment Hematology/Oncolog y Treatment, [address] [address] [place], Chair4 Hem Onc [address] [place] [address] Antineoplastic chemotherapy induced pancytopenia (HCC)*; Burkitt lymphoma [...] 07/24/2023 Active levoFLOXacin 750 MG Oral Tablet (Levaquin)Indication [...] the evening. 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 Overview: Follows in [place] q6m History of petit-mal seizures 03/07/2016 Tobacco [...] Sign Reading Time Taken Comments Blood Pressure 110/73 08/27/2023 4:45 PM EDT Pulse 80 08/27/2023 4:45 PM EDT Temperature 36.8 C (98.2 F) 08/27/2023 4:45 PM ED T Respiratory Rate 18 08/27/2023 4:45 PM EDT Oxygen Saturation 100% 08/27/2023 4:45 PM EDT Inhaled Oxygen Concentration - - [...] this encounter Patient Instructions * Patient Instructions* Arlyn Melvin RN - 08/27/2023 4:20 PM EDT POST TRANSFUSION INSTRUCTIONS FOR THE [...] hours and on weekends, call the hospital-paging alodize machine operator at one of the below listed numbers and ask to speak with an emergency room physician or the medical staffing coordinator of transfusion medicine. [facility] - [phone] [facility] - [phone] [facility] - [phone] [facility], a campus of [facility] - [phone] [facility] - [phone] [facility] - [phone] [facility] - ext. 4 [facility] - You received : 1 unit of PRBCs Your temperature, pulse, and blood pressure at the end of your transfusion are as follows: Temperature: 36.8 Pulse: 80 Blood Pressure: 115/76 documented in this encounter Nursing Notes * Maricarmen Villeda RN - 08/27/2023 4:20 PM EDT Patient presents for 1 unit PRBCs, chair 1. [facility] Care Plan ID is not set. Safety and Risk for Injury Patient will remain free from injury. Assess patient's risk for falls per policy. Ensure appropriate safety devices are available. Provide and maintain safe environment. Use appropriate transfer methods. Goals: maintain patient safety Possible barriers to meeting goals: Blood Transfusion Stability of the patient: Moderately stable - low risk of patient condition declining or worsening Summary regarding today's goals: Met: patient safety maintained. documented in this encounter Plan of Treatment Upcoming Encounters Date Type Department Care Team (Late st Contact Info) Description 08/31/2023 10:00 AM EDT Laboratory Laboratory [facility], [place] [address] [place] [phone] [place], Lab [facility] [address] [place] [address] 09/04/2023 10:00 AM EDT Laboratory Laboratory, [address] [phone] [facility], Lab [address] [place] [address] 09/04/2023 11:00 AM EDT Telemedicine Hematology/Oncology, [address] [address] Mike Chaudhary MD [address] [place] [address] [place], Telemed [facility] Hem Onc Clinic [address] [place] [address] 09/07/2023 7:15 AM EDT Nurse Only Hematology Oncology [facility] [address] [place] [address] [place] Nurse Lab Hem/Onc [address] [place] [address] 09/07/2023 8:00 AM EDT Hem/Onc Treatment Hematology Oncology [facility], [address] [address] [place], Chair 19 Hem/Onc [address] [place] [address] 09/07/2023 2:00 PM EDT Appointment Radiology, [address] [phone] 09/09/2023 11:00 AM EDT Hem/Onc Treatment Hematology/Oncology Treatment, [address] [address] [facility], Chair1 Hem Onc [address] [place] [address] 09/09/2023 1:00 PM EDT Office Visit Palliative Medicine, [address] 5th [place] [address] Tessa Ruboi PA-C [address] [place] [address] 09/11/2023 9:00 AM EDT Nurse Only Hematology Oncology [facility], [address] [address] [place], Nurse Lab Hem/Onc [address] [place] [address] 09/11/2023 10:00 AM EDT Hem/Onc Treatment Hematology Oncology [facility], [address] [address] [place], Chair 19 Hem/Onc [address] [place] [address] 09/11/2023 2:00 PM EDT Appointment Radiology, [address] [place] [address] 09/14/2023 7:00 AM EDT Laboratory Laboratory, [address] [phone] [facility], Lab [address] [place] [address] 09/14/2023 8:00 AM EDT Immunization/Injection Hematology/Oncology Treatment, [address] [address] [facility], Chair1 Hem Onc [address] [place] [address] 09/18/2023 10:00 AM EDT Laboratory Laboratory, [address] [phone] [facility], Lab [address] [place] [address] 09/18/2023 11:00 AM EDT Telemedicine Hematology/Oncology, [address] [address] Mike Chaudhary MD [address] [place] [address] [place] Telemed [facility] Hem Onc Clinic [address] [place] [address] 09/25/2023 2:40 PM EDT Office Visit Rheumatology [place] [phone] [facility] [place] [address] Oliver Zhang MD [facility] [place] [address] 02/19/2024 12:00 PM EST [facility] [address] [place] [place] [address] Kayla Reeder DO [address] [place] [address] Health Maintenance Due Date Last Done Comments COVID-19 Vaccine (#1) 1993 Influenza Vaccine (FLU shot) (#1) 2023 11/17/2016, 11/17/2016, 11/30/2015, Additional history exists Depression Screening 07/07/2024 07/08/2023, 06/11/19 24 Albumin/Creatinine Ratio Discontinued 08/02/2021 documented as of this encounter Medical Devices Implanted Type Area Dental Treatment Coordinator Device Identifier Shelf Expiration Date Model / Serial / Lot Mediport Pwr Mri 8fr [id number] - [id number] Implanted:Qty : 1 on 07/17/2023 by Medhat Angel MD at OR [facility] Right: Chest CR BARD : PERIPHERAL VASCULAR 07/16/2024 [id number] / / [id number] Port Implant W8f Poly Cath - [id number] Implanted:Qty : 1 on 07/17/2023 by Medhat Angel MD at OR [facility] CR BARD : PERIPHERAL VASCULAR [id number] 07/16/2024 [id number] / / [id number] documented as of this encounter Procedures Procedure Name Priority Date/Time Associated Diagnosis Comments TRANSFUSE PACKED RED BLOOD CELLS Routine 08/27/2023 1:55 PM EDT 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) PREPARE PACKED RED BLOOD CELLS STAT 08/27/2023 1:00 PM EDT 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) documented in this encounter Results * TRANSFUSE PACKED RED BLOOD CELLS (08/27/2023 4:28 PM EDT) Lakeshia ZARAGOZA BLD BANK TRANFUS E ORDERABLES * TRANSFUSE PACKED RED BLOOD CELLS (08/27/2023 4:28 PM EDT) Lakeshia Clarke Chase ZARAGOZA D BANK TRANFUS E ORDERABLES * PREPARE PACKED RED BLOOD CELLS (08/27/2023 1:00 PM EDT) Unit Product Code [id number] 08/27/2023 1:50 PM EDT LABORATORY [facility] Unit Number [id number] 08/27/2023 1:50 PM EDT LABORATORY [facility] Unit ABO O 08/27/2023 1:50 PM EDT LABORATORY [facility] Unit Rh POS 08/27/2023 1:50 PM EDT LABORATORY [facility] Unit Crossmatch Compatible 08/27/2023 1:37 PM EDT LABORATORY [facility] Unit Status IS 08/27/2023 1:50 PM EDT LABORATORY [facility] Unit Blood Type OPOS 08/27/2023 1:50 PM EDT LABORATORY [facility] Unit Expiration [id number] 08/27/2023 1:50 PM EDT LABORATORY [facility] Unit Barcode 5100 08/27/2023 1:50 PM EDT LABORATORY [facility] 08/27/2023 1:00 PM EDT Lakeshia Dowdgers [employer]OP[employer] ADMINISTRATOR D BANK PRODUCT ORDERABLES LABORATORY [facility] [address] [place] [address] documented in this encounter Visit [...] reaction with blood transfusion, Starting on Tess 08/27/23 at 1400, Until Discontinued, Maximum of 4 grams (4000 mg) per day. Acetaminophen (Tylenol) tab 650 mg 650 mg, Oral, ONCE PRN Other, Transfusion Reaction, Starting on Thu08/27/23 at 1258, Until Thu08/28/23 at 1257, For 24 hours, Maximum of 4 grams (4000 mg) per day. diphenhydrAMINE (Benadryl) cap 25 mg 25 mg, Oral, ONCE PRN Other, If previous infusion reaction with blood transfusion, Starting on Thu08/27/23 at 1400, Until Discontinued diphenhydrAMINE (Benadryl) cap 25 mg 25 mg, Oral, ONCE PRN Other, Transfusion Reaction, Starting on Thu08/27/23 at 1258, Until Thu08/28/23 at 1257, For 24 hours diphenhydrAMINE (Benadryl) inj 50 mg 50 mg, IV Push, ONCE PRN Other, Hypersensitivity Reaction, Starting on Thu08/27/23 at 1258, Until Thu08/28/23 at 1257, For 24 hours EPINEPHrine 1 MG/ML inj 0.3 mg 0.3 mg, Intramuscular, ONCE PRN Other, Hypersensitivity Reaction or Anaphylaxis, Starting on Thu08/27/23 at 1258, Until Thu08/28/23 at 1257, For 24 hours hEParin 100 UNIT/ML Lock Flush inj 500 Units 500 Units (5 mL), IV Lock, PRN Other, IV Flush, Starting on Thu08/27/23 at 1258, Until Thu08/28/23 at 1257, For 24 hours, Do not flush if lock, PICC, or central line not in place; IV infusing or unable to flush. Given 08/27/2023 4:45 PM EDT 500 Units Hydrocortisone Sod Suc (PF) (Solu-Cortef) inj 100 mg 100 mg, IV Push, ONCE PRN Other, If previous infusion reaction with blood transfusion, Starting on Thu08/27/23 at 1400, Until Discontinued Hydrocortisone Sod Suc (PF) (Solu-Cortef) inj 100 mg 100 mg, IV Push, ONCE PRN Other, Hypersensitivity Reaction, Starting on Thu08/27/23 at 1258, Until Thu08/28/23 at 1257, For 24 hours NSS infusion 500 mL, Intravenous, at 50 mL/hr, CONTINUOUS, Starting on Thu08/27/23 at 1400, Until Thu08/27/23 at 2359 sodium chloride 0.9 % flush central line 10 mL 10 mL, IV Push, PRN Other, IV Flush, Starting on Tess 08/27/23 at 1258, Until Thu08/28/23 at 1257, For 24 hours, Do not flush if lock, PICC, or central line not in place; IV infusing or unable to flush. Given 08/27/2023 4:45 PM EDT 10 mL documented in this [...] Agents on File Name Relationship Healthcare Agent [facility] p Communication Trixie Le [facility] Repr esentative (appointed verbally by patient or by statute hierarchy) [email or web address] Care Teams Toxicology Supervisor Relationship Specialty Start Date End Date Kayla Reeder DO [address] [facility] [place] [address] PCP - General Family Medicine 06/11/23 documented as of this encounter
--- OUTSIDE RECORDS SUMMARY | 2023-09-18 21:19 | External Medical Summary ---
Author Name Unknown Address Unknown Organization K1F:[facility]ATORY [facility] - [address] [facility]. Jarek DUKES [address] Laboratory Report Ordering Provider Test Date Status MATTI BARAJAS 09/04/2023 10:27:24 Final Observation Date Value Abnormality Reference (Units ) Status SYNC LEUKOCYTES IN BLOOD BY AUTOMATED COUNT 09/04/2023 10:27:24 16.51 Above high normal 4.00-10.80 (K/uL) Final Neutrophils/100 leukocytes in Blood by Manual count 09/04/2023 10:27:24 74.0 40.0-75.0 (%) Final Lymphocytes/100 leukocytes in Blood by Manual count 09/04/2023 10:27:24 6.0 Below low normal 18.0-42.0 (%) Final Monocytes/100 leukocytes in Blood by Manual count 09/04/2023 10:27:24 5.0 1.0-11.0 (%) Final Metamyelocytes/100 leukocytes in Blood by Manual count 09/04/2023 10:27:24 11.0 Above high normal <=0.0 (%) Final Myelocytes/100 leukocytes in Blood by Manual count 09/04/2023 10:27:24 4.0 Above high normal <=0.0 (%) Final Neutrophils [#/volume] in Blood by Manual count 09/04/2023 10:27:24 12.22 Above high normal 1.80-7.70 (K/uL) Final Lymphocytes [#/volume] in Blood by Manual count 09/04/2023 10:27:24 0.99 Below low normal 1.00-4.80 (K/uL) Final Monocytes [#/volume] in Blood by Manual count 09/04/2023 10:27:24 0.83 0.00-1.10 (K/uL) Final Metamyelocytes [#/volume] in Blood by Manual count 09/04/2023 10:27:24 1.82 Above high normal <=0.00 (K/uL) Final Myelocytes [#/volume] in Blood by Manual count 09/04/2023 10:27:24 0.66 Above high normal <=0.00 (K/uL) Final Toxic granules [Presence] in Blood by Light microscopy 09/04/2023 10:27:24 Moderate Abnormal None Seen Final Performing Location LABORATORY [facility] [place] [address]
--- OUTSIDE RECORDS SUMMARY | 2023-09-18 21:19 | External Medical Summary ---
Author Name Unknown Address Unknown Organization K01:[facility] - [address] [facility] [address] Laboratory Report Ordering Provider Test Date Status MATTI BARAJAS 08/31/2023 10:01:30 Final Observation Date Value Abnormality Reference (Units ) Status SYNC LEUKOCYTES IN BLOOD BY AUTOMATED COUNT 08/31/2023 10:01:30 10.15 4.00-10.80 (K/uL) Final Neutrophils/100 leukocytes in Blood by Manual count 08/31/2023 10:01:30 67.0 40.0-75.0 (%) Final Lymphocytes/100 leukocytes in Blood by Manual count 08/31/2023 10:01:30 9.0 Below low normal 18.0-42.0 (%) Final Monocytes/100 leukocytes in Blood by Manual count 08/31/2023 10:01:30 18.0 Above high normal 1.0-11.0 (%) Final Metamyelocytes/100 leukocytes in Blood by Manual count 08/31/2023 10:01:30 2.0 Above high normal <=0.0 (%) Final Myelocytes/100 leukocytes in Blood by Manual count 08/31/2023 10:01:30 4.0 Above high normal <=0.0 (%) Final Neutrophils [#/volume] in Blood by Manual count 08/31/2023 10:01:30 6.80 1.80-7.70 (K/uL) Final Lymphocytes [#/volume] in Blood by Manual count 08/31/2023 10:01:30 0.91 Below low normal 1.00-4.80 (K/uL) Final Monocytes [#/volume] in Blood by Manual count 08/31/2023 10:01:30 1.83 Above high normal 0.00-1.10 (K/uL) Final Metamyelocytes [#/volume] in Blood by Manual count 08/31/2023 10:01:30 0.20 Above high normal <=0.00 (K/uL) Final Myelocytes [#/volume] in Blood by Manual count 08/31/2023 10:01:30 0.41 Above high normal <=0.00 (K/uL) Final Ovalocytes [Presence] in Blood by Light microscopy 08/31/2023 10:01:30 Moderate Abnormal None Seen Final Polychromasia [Presence] in Blood by Light microscopy 08/31/2023 10:01:30 Moderate Abnormal None Seen Final Toxic granules [Presence] in Blood by Light microscopy 08/31/2023 10:01:30 Moderate Abnormal None Seen Final Performing Location LABORATORY [facility] - [address] [facility] [address]
--- OUTSIDE RECORDS SUMMARY | 2023-09-18 21:19 | External Medical Summary | Summary of Care ---
Author Name Unknown Organization [facility] Address [address] [place] [address] Phone [phone] Care Team Providers Care Culinary Assistant Name Role Phone ReederMelissaie Tricia DO Primary Care Provider [phone]- [phone] Reason for Visit * Reason Onset Date Comments Advice 09/01/2023 Confusion, jerry rgic and dropping things Encounter Details Date Type Department Care Team (Late st Contact Info) Description 09/01/2023 Telephone Hematology/Oncology, [facility] [address] [place] [address] Mike Chaudhary MD [address] [place] [address] Advice (Confusion, lethargic and dropping ... Allergies No known active allergiesdocumented as of this encounter (statuses as of 09/01/2023) Medications Medication Sig Dispensed Refills Start Date [...] spray device in other nostril. 2 Each 07/07/2023 Active Magic Swizzle (Lidocaine-Benadryl- Maalox) oral [...] as of this encounter (statuses as of 09/01/2023) Active Problems Problem Noted Date Diagnosed Date [...] as of this encounter (statuses as of 09/01/2023) Resolved Problems Problem Noted Date Diagnosed Date [...] as of this encounter (statuses as of 09/01/2023) Immunizations Name Administration Dates Next Due DT [...] encounter Miscellaneous Notes * Telephone Encounter - Marilee Samuel RN - 09/01/2023 2:05 PM EDT See MyG from today. * Telephone Encounter - Marilee Samuel RN - 09/01/2023 12:07 PM EDT Pt's mother calling in. Pt's girlfriend just called her, Farhad has been confused, lethargic and dropping things all morning. Had a recent blood transfusion last week. HGB was 6.9 Labs drawn yesterday HGB 7.9 Advised mother to bring pt to the closest ER for evaluation. Mother will get pt to [facility] ER ELIEL. documented in this encounter Plan of Treatment Upcoming Encounters Date Type Department Care Team (Late st Contact Info) Description 09/04/2023 10:00 AM EDT Laboratory Laboratory, [address] [address] [facility], Lab [address] [place] [address] 09/04/2023 11:00 AM EDT Telemedicine Hematology/Oncology, [address] [address] Mike Chaudhary MD [address] [place] [address] [place], Telemed [facility] Hem Onc Clinic [address] [place] [address] 09/07/2023 7:15 AM EDT Nurse Only Hematology Oncology [facility], [address] [address] [place], Nurse Lab Hem/Onc [address] [place] [address] 09/07/2023 8:00 AM EDT Hem/Onc Treatment Hematology Oncology [facility], [address] [address] [place], Chair 19 Hem/Onc [address] [place] [address] 09/07/2023 2:00 PM EDT Appointment Radiology, [address] [phone] 09/09/2023 11:00 AM EDT Hem/Onc Treatment Hematology/Oncology Treatment, [address] [address] [facility], Chair1 Hem Onc [address] [place] [address] 09/09/2023 1:00 PM EDT Office Visit Palliative Medicine, [address] 5th [place] [address] Tessa Rubio [place] [address] [place] [address] 09/11/2023 9:00 AM EDT Nurse Only Hematology Oncology [facility], [address] [address] [place], Nurse Lab Hem/Onc [address] [place] [address] 09/11/2023 10:00 AM EDT Hem/Onc Treatment Hematology Oncology [facility], [address] [address] [place], Chair 19 Hem/Onc [address] [place] [address] 09/11/2023 2:00 PM EDT Appointment Radiology, [address] [address] 09/14/2023 7:00 AM EDT Laboratory Laboratory, [address] [phone] [facility], Lab [address] [place] [address] 09/14/2023 8:00 AM EDT Immunization/Injection Hematology/Oncology Treatment, [address] [place] [address] [facility], Chair1 Hem Onc [address] [place] [address] [place] [address] 09/18/2023 10:00 AM EDT Laboratory Laboratory, [address] [phone] [facility], Lab [address] [place] [address] 09/18/2023 11:00 AM EDT Telemedicine Hematology/Oncology, [address] [address] Mike Chaudhary MD [address], [place] [phone] Cart, Telemed [facility] Hem Onc Clinic [address] [place] [address] 09/25/2023 2:40 PM EDT Office Visit Rheumatology [place] [id number] [facility] [place] [address] Oliver Zhang MD [facility] [employer] [place] [address] 02/19/2024 12:00 PM EST Office Visit [facility] [address] [facility] [place] [id number] Kayla Reeder DO [address] [place] [address] Health Maintenance Due Date Last Done Comments COVID-19 Vaccine (#1) 1993 Influenza Vaccine (FLU shot) (#1) 2023 11/17/2016, 11/17/2016, 11/30/2015, Additional history exists Depression Screening 07/07/2024 07/08/2023, 06/11/19 24 Albumin/Creatinine Ratio Discontinued 08/02/2021 documented as of this encounter Medical Devices Implanted Type Area Warehouse Foreman Device Identifier Shelf Expiration Date Model / Serial / Lot Mediport Pwr Mri 8fr [id number] - [id number] Implanted:Qty : 1 on 07/17/2023 by Medhat Angel MD at OR [facility] Right: Chest CR BARD : PERIPHERAL VASCULAR 07/16/2024 [id number] / / [id number] Port Implant W8f Poly Cath - [id number] Implanted:Qty : 1 on 07/17/2023 by Medhat Angel MD at OR [facility] CR BARD : PERIPHERAL VASCULAR [id number] 07/16/2024 [id number] / / [id number] documented as of this encounter Advance Directives [...] Agents on File Name Relationship Healthcare Agent [facility] Communication Trixie Le [facility] Care Repr esentative (appointed verbally by patient or by statute hierarchy) [email or web address] Care Teams Culinary Assistant Relationship Specialty Start Date End Date Kayla Reeder DO [address] [facility] [place] [phone] PCP - General Family Medicine 06/11/23 documented as of this encounter
--- OUTSIDE RECORDS SUMMARY | 2023-09-18 21:19 | External Medical Summary | Summary of Care ---
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 2 Each 07/07/2023 Active Magic Swizzle (Lidocaine-Benadryl -Maalox) oral [...] less than 500. 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 When ANC less than 500. 30 Tablet 07/24/2023 08/28/19 24 Discontinu ed(Refill) documented as of this encounter (statuses as of 08/28/2023) Active Problems Problem Noted Date Diagnosed Date [...] as of this encounter (statuses as of 08/28/2023) Resolved Problems Problem Noted Date Diagnosed Date [...] as of this encounter (statuses as of 08/28/2023) Immunizations Name Administration Dates Next Due DT [...] Telephone Encounter - Shannon Kendall RN - 08/28/2023 12:48 PM EDT Pending Prescriptions: Disp Refills levoFLOXacin 750 MG Oral Tablet (Levaquin) 30 Tab*0 Sig: Take 1 Tablet by mouth in the morning. When ANC less than 500. * Telephone Encounter - Donna Cisneros CPhT - 08/28/2023 12:42 PM EDT Patient is up to date for office visits. Per OV discussion Pending Prescriptions: Disp Refills levoFLOXacin 750 MG Oral Tablet (Levaquin)30 Tab*0 Sig: Take 1 Tablet by mouth in the morning. When ANC less than 500. Last Visit: 08/27/2023 (in office), 08/14/2023 (telemedicine) Next Visit: 09/04/2023 If no future appointments scheduled, and last appointment is greater than a year ago, please schedule patient for a follow-up appointment Last date the medication was ordered: 07/24/2023 Pharmacy: [facility] [address] [place] [address] [place] Is this request for a controlled substance?No it is not controlled. Urine Drug Screen: Results for orders placed [...] Lab Results Component Value Date/Time CREAT 0.8 08/27/2023 10:22 AM CREAT 0.90 08/06/2023 12:00 AM CREAT 1.1 11/11/2019 01:50 PM POTASSIUM 4.1 08/27/2023 10:22 AM POTASSIUM 2.9 (A) 08/06/2023 12:00 AM POTASSIUM 4.8 11/11/2019 01:50 PM TSH 3.86 04/22/2022 10:37 AM TSH 1.01 11/11/2019 01:50 PM LDLCALC 131 (H) 08/02/2021 08:53 AM LDLCALC 117 11/11/2019 01:50 PM LDLDIRECT NOT APPLICABLE 11/11/2019 01:50 PM ALT 24 08/27/2023 10:22 AM ALT 26 11/11/2019 01:50 PM HGBA1C 5.9 (H) 08/02/2021 08:53 AM HGBA1C 5.8 (H) 11/11/2019 01:50 PM documented in this encounter Plan of Treatment Upcoming Encounters Date Type Department Care Team (Late st Contact Info) Description 08/31/2023 10:00 AM EDT Laboratory Laboratory [facility] [address] [place] [phone] [place], Lab [facility] [address] [place] [address] 09/04/2023 10:00 AM EDT Laboratory Laboratory, [address] [address] [facility], Lab [address] [place] [address] 09/04/2023 11:00 AM EDT Telemedicine Hematology/Oncology, [address] [address] Mike Chaudhary MD [address] [place] [address] [place], Telemed [facility] Hem Onc Clinic [address] [place] [address] 09/07/2023 7:15 AM EDT Nurse Only Hematology Oncology [facility], [address] [address] [place], Nurse Lab Hem/Onc [address] [place] [address] 09/07/2023 8:00 AM EDT Hem/Onc Treatment Hematology Oncology [facility], [address] [address] [place], Chair 19 Hem/Onc [address] [place] [address] 09/07/2023 2:00 PM EDT Appointment Radiology, [address] [phone] 09/09/2023 11:00 AM EDT Hem/Onc Treatment Hematology/Oncology Treatment, [address] [address] [facility], Chair1 Hem Onc [address] [place] [address] 09/09/2023 1:00 PM EDT Office Visit Palliative Medicine, [address] [place] [address] Tessa Rubio PA-C [address] [place] [address] 09/11/2023 9:00 AM EDT Nurse Only Hematology Oncology [facility], [address] [address] [place], Nurse Lab Hem/Onc [address] [place] [address] 09/11/2023 10:00 AM EDT Hem/Onc Treatment Hematology Oncology [facility], [address] [address] [place], Chair 19 Hem/Onc [address] [place] [address] 09/11/2023 2:00 PM EDT Appointment Radiology, [place] [address] [place] [address] 09/14/2023 7:00 AM EDT Laboratory Laboratory, [address] [phone] [facility], Lab [address] [place] [address] 09/14/2023 8:00 AM EDT Immunization/Injection Hematology/Oncology Treatment, [address] [address] [facility], Chair1 Hem Onc [address] [place] [address] 09/18/2023 10:00 AM EDT Laboratory Laboratory, [address] [phone] [facility], Lab [address] [place] [address] 09/18/2023 11:00 AM EDT Telemedicine Hematology/Oncology, [address] [address] Mike Chaudhary MD [address] [place] [address] [place], Telemed [facility] Hem Onc Clinic [address] [place] [address] 09/25/2023 2:40 PM EDT Office Visit Rheumatology [place] [address] [facility] [place] [address] Oliver Zhang MD [address] [place] [address] 02/19/2024 12:00 PM EST Office Visit Family [facility] [address], [place] [address] [place] [address] Kayla Reeder DO [address] [place] [address] Health Maintenance Due Date Last Done Comments COVID-19 Vaccine (#1) 1995 Influenza Vaccine (FLU shot) (#1) 2023 11/17/2016, 11/17/2016, 11/30/2015, Additional history exists Depression Screening 07/07/2024 07/08/2023, 06/11/19 24 Albumin/Creatinine Ratio Discontinued 08/02/2021 documented as of this encounter Medical Devices Implanted Type Area Telegraph Dispatcher Device Identifier Shelf Expiration Date Model / Serial / Lot Mediport Pwr Mri 8fr [id number] - [id number] Implanted:Qty : 1 on 07/17/2023 by Medhat Angel MD at OR [facility] Right: Chest CR BARD : PERIPHERAL VASCULAR 07/16/2024 [id number] / / [id number] Port Implant W8f Poly Cath - [id number] Implanted:Qty : 1 on 07/17/2023 by Medhat Angel MD at OR [facility] CR BARD : PERIPHERAL VASCULAR [id number] 07/16/2024 [id number] / / [id number] documented as of this encounter Visit Diagnoses [...] Healthcare Agent Relationshi p Communication Trixie Le Mckay Count Includes [facility] Health Care Repr esentative (appointed verbally by patient or by statute hierarchy) [email or web address] Care Teams Pcas Relationship Specialty Start Date End Date Kayla Reeder DO [address] [facility] [place] [address] PCP - General Family Medicine 06/11/23 documented as of this encounter
--- OUTSIDE RECORDS SUMMARY | 2023-09-18 21:19 | External Medical Summary | Summary of Care ---
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)*; Antineoplastic chemotherapy induced pancytopenia (HCC); 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); Chemotherapy induced nausea and vomiting; Encounter to discuss test results Allergies No [...] 04/22/2022 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 Overview: Follows in [place] q6m History of petit-mal seizures 03/07/2016 Tobacco [...] Reading Time Taken Comments Blood Pressure 121/72 08/27/2023 11:53 AM EDT Pulse 78 08/27/2023 11:53 AM EDT Temperature 36.9 C (98.5 F) 08/27/2023 1 1:53 AM EDT Respiratory Rate - - Oxygen Saturation 100% 08/27/2023 11: 53 AM EDT Inhaled Oxygen Concentration - - Weight 111.3 kg (245 lb 6.4 oz) 024 11:53 AM EDT Height - - Body Mass Index 34.23 08/21/2023 9:40 AM EDT documented in this [...] Progress Notes * Lakeshia Stone CRNP - 08/27/2023 10:47 AM EDT Hematology/Oncology Outpatient Clinic note [facility] Hematology/Oncology, [address] [facility] [address] Name: Farhad Franco Date: 08/27/2023 CHIEF COMPLAINT: Farhad Franco is a 32 year old male patient of Dr. Mike Chaudhary here today for f/u visit today. From Patient chart confirmed with patient. From Dr. Mike Chaudhary note 08/14/2023. 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 Also, patient with remotehistory of immunosuppressive meds. NEGATIVE HIV. High risk (retroperitoneal abdominal mass, > 7cm, High LDH). [email or web address] Bulky disease (single mass >7 cm) Stage III (Retroperitoneal disease), with no bone marrow, or TUBE DISPATCHER involvement (LP x 2, Rare atypicallymphocytes W/small lymphocytes favor reactive lymphomonocytosis, flow:no evidence of clonal or aberrant cells) Retroperitoneal biopsy; IHC: Aggressive CD10+ B-cell lymphoma with EBV expression. Ki-67 = 80-90%. Flow cytometry: RP17-[id number] B cell population expressing kappa light chains. FISH: t(8:14). 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 H/O seizures, last was in high school, has been on Depakote and toapmax for years Cognitive, and learning disabilities Gout HTN Former smoker, quit 2 years ago Treatment rendered: CALGB 1002 Pre-phase: Cyclophosphamide 200 mg/m2 IV days 1-5 (06/26/23-06/30/23) Prednisone 60 mg/m2 PO days 1-7 IT MTX 12 mg (07/02/23, 07/22/23) Current treatment: [email or web address] Risk-adapted DA-EPOCH-R Q 21 days, with G-CSF support x 6 cycles (07/02/23- )---> C1 started IP, w/o steroids d/t he got pre phase steroids. 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) 06/25/2023 Initial Diagnosis B-cell lymphoma of intra-abdominal lymph nodes (HCC) 06/26/2023 - 07/09/2023 Chemotherapy CAL 32544 Pre-Phase ONLY (1 Cycle/14 Days) [id number] 07/01/2023 - 07/01/2023 Chemotherapy OP CHOP-R every 21 days (Lymphoma) [id number] 07/02/2023 - 07/09/2023 Chemotherapy IP DA-EPOCH every 21 days (Lymphoma) [id number] 07/02/2023 - Supportive Therapy SCP - INTRATHECAL CHEMOTHERAPY (HEMATOLOGY) [id number] Plan Provider: Yaz Molina MD Treatment goal: Supportive Line of treatment: [No plan line of treatment] 07/24/2023 - Chemotherapy OP DA-EPOCH-R every 21 days (Clinic Administration 48hr EPOCH infusion) [id number] 07/27/2023 - 07/27/2023 Chemotherapy Outpatient DA R-EPOCH Home Health Administration (48hr EPOCH infusion) [id number] 08/11/2023 - Supportive Therapy SCP - PORT FLUSH Plan Provider: Mike Chaudhary MD Treatment goal: Supportive Line of treatment: Maintenance History of present illness (at time of my initial evaluation on 07/27/2023 ): Farhad Franco is a 32 year old male , presented to my office today accompanied by his mother to establish care with outpatient explosive operator supervisor for evaluation, treatment of his newly diagnosed Burkittcell lymphoma. Patient lives 1 hour away from [facility]. He lives with his 4-year-old son. Patient is . He is on disability. Patient was admitted to [facility], and then transferred to [facility] because of Burkitt's lymphoma with hospital courses as below HOSPITAL COURSE (focused): - [facility] [place]/2023 - 07/07/2023 (17 days): "Farhad Franco is 32 year old male with a past medical history significant for cerebral vasculitis (primary cerebral angiitis following Rheumatology in [place]) complicated by stroke at the age of7, migraine with aura, nephrolithiasis, petite mal seizures presented to [facility] with complaint of abdominal pain. Transferred from [facility] ER to [facility] to assess for IR biopsy in the setting of rapidly enlarging retroperitoneal mass on CT imaging. As per mother, he was on number of medications for his vasculitis like CellCept, Cytoxan, methotrexate from 1997 through 2014. Biopsy of retroperitoneal mass consistent with CD10 positive high-grade lymphoma with continued abdominal pain requiring morphine NET MANAGER pump. His uric acid was elevated s/p [...] 06/25/23, lumbar puncture 07/02/23" HOSPITAL COURSE (focused) [facility]- 07/12/2023 - 07/14/2023 (2 days): 32 yo male presents to the [facility] ED c/o headache. Found to be pancytopenic [...] history as outlined above. Currently here for an acute visit today, accompanied by his father. Recently completed Cycle 3 of treatment with DA-EPOCH-R 08/24/2023 and IT MTX 08/21/2023. He has had no nausea or vomiting since his last office visit. TakingPepcid PRN when he gets heartburn, took for the first time last night - relieved his heartburn in six minutes. Appetite has been much better, eating and drinking normally. Reports that he is drinkingplenty of of water, drank about 80 ounces of powerade/tea/water yesterday. Only pain he has is in his back where they do the lumbar punctures. Pain regimen is keeping it well-managed. Otherwise denies any new concerns or symptoms during the office visit today. Confirmed he has Levaquin at home and that he needs to take it now that ANC < 500. Denies fevers, chills, night sweats, weakness, headaches, dizziness, vision changes, paresthesias, neuroapt SOB/MAHAN, chest pain or tightness, palpitations, lower extremity edema, abdominal pain, nausea, vomiting, diarrhea, constipation, hematuria, melena, or hematochezia. Past Medical History: Diagnosis Date Adjustment disorder with depressed mood 08/14/2009 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 Follows in [place] q6m Cerebrovascular accident (CVA) (HCC) Gastroesophageal reflux [...] performed by Laurence Dent MD at ENDOSCOPY [facility] EGD, FLEXIBLE, DIAGNOSTIC 02/05/2022 normal bx / ESOPHAGOGASTRODUODENOSCOPY (EGD), FLEXIBLE, TRANSORAL, DIAGNOSTIC performed by Laurence Dent MD at ENDOSCOPY [facility] INFORMATION Arteriograms. INSER TUNN ACC DEV;5 YRS/OLDER Right 07/17/2023 INSERT TUNNELED CENTRAL VENOUS ACCESS WITH SUBQ PORT performed by Medhat Angel MD at OR [facility] IR BIOPSY 06/22/2023 [place] ANESTH,OPEN HEAD SURGERY Social History Socioeconomic History [...] Stability Do you currently live in a assisted or have no steady place to sleep [...] other nostril. 2 Each 3 Magic Swizzle (Xaadehdqp-Hgkfvhou-Nfplld) oral solution Swish and spit 15 mL [...] Tablets in the evening. 30 Tablet 0 No current facility-administered medications for this visit. REVIEW OF SYSTEMS: See HPI - otherwise negative OBJECTIVE: Filed Vitals: 08/27/23 1153 BP: 121/72 Pulse: 78 Temp: 36.9 C (98.5 F) TempSrc: Tympanic SpO2: 100% Weight: 111.3 kg (245 lb 6.4 oz) Wt Readings from Last 5 Encounters: 08/21/23 113.7 kg (250 lb 9.6 oz) 08/19/23 112.7 kg (248 lb 8 oz) 08/17/23 113.3 kg (249 lb 12.8 oz) 08/14/23 111.1 kg (244 lb 14.4 oz) 08/14/23 111.1 kg (244 lb 14.4 oz) PHYSICAL EXAM: ECOG: Performance Status 1 [...] orders placed or performed in visit on 08/27/23 COMPREHENSIVE METABOLIC PANEL Result Value Ref Range BUN 16 6 - 20 mg/dL Creatinine 0.8 0.6 - 1.2 mg/dL Estimated Glomerular Filtration Rate >90 >=60 mL/min Sodium 140 135 - 146 mmol/L Potassium 4.1 3.5 - 5.1 mmol/L Chloride 106 98 - 107 mmol/L CO2 25 22 - 32 mmol/L Anion Gap 9 7 - 15 mmol/L Glucose 128 (H) 70 - 120 mg/dL Albumin 4.1 3.8 - 5.0 g/dL AST 12 10 - 50 U/L Alkaline Phosphatase 71 35 - 130 U/L Bilirubin, Total 0.6 <=1.2 mg/dL Calcium 9.4 8.4 - 10.2 mg/dL Protein 6.4 6.0 - 8.3 g/dL ALT 24 10 - 50 U/L URIC ACID Result Value Ref Range Uric Acid 5.3 3.4 - 7.0 mg/dL LD Result Value Ref Range LD 208 <=250 U/L CBC Result Value Ref Range WBC 0.67 (LL) 4.00 - 10.80 K/uL RBC 2.17 4.50 - 5.25 M/uL HGB 6.9 (L) 14.0 - 16.8 g/dL HCT 20.7 (L) 40.0 - 48.4 % MCV 95.4 82.0 - 99.5 fL MCH 31.8 27.0 - 34.0 pg MCHC 33.3 32.0 - 36.0 g/dL RDW 18.0 11.5 - 15.5 % PLT 49 (L) 140 - 400 K/uL MPV 9.6 6.6 - 11.1 fL nRBCs 0 <=0 /100 WBCs DIFFERENTIAL, TECHNOLOGIST REVIEW Result Value Ref Range WBC 0.67 (LL) 4.00 - 10.80 K/uL Neutrophils % 70.0 40.0 - 75.0 % Lymphocytes % 25.0 18.0 - 42.0 % Monocytes % 1.0 1.0 - 11.0 % Basophils % 4.0 (H) 0.0 - 2.0 % Absolute Neutrophils 0.47 (L) 1.80 - 7.70 K/uL Absolute Lymphocytes 0.17 (L) 1.00 - 4.80 K/uL Absolute Monocytes 0.01 0.00 - 1.10 K/uL Absolute Basophils 0.03 0.00 - 0.20 K/uL IMAGING: FLUORO GUIDED CHEMO ADMIN INTO TUBE DISPATCHER Result Date: 08/21/2023 IMPRESSION Successful fluoroscopically guided lumbar puncture for administration of intrathecal chemotherapy. I have personally reviewed this examination and agree with the resident/fellow physician's interpretation. FLUORO GUIDED CHEMO ADMIN INTO TUBE DISPATCHER Result Date: 08/17/2023 IMPRESSION Final report Successful fluoroscopy guided lumbar puncture and intrathecal chemotherapy administration without immediate complication. I have personally reviewed this examination and agreewith the resident/fellow physician's interpretation. FLUORO GUIDED CHEMO ADMIN INTO TUBE DISPATCHER Result Date: 07/22/2023 IMPRESSION Successful fluoroscopy guided lumbar puncture and intrathecal chemotherapy administration without immediate complication. IR INTERVENTIONAL RADIOLOGY PROCEDURE IN OR Result Date: 07/17/2023 IMPRESSION: Successful placement of a chest power injectable medical port. MRI BRAIN W WO CONTRAST Result Date: 07/13/2023 IMPRESSION: No acute intracranial abnormality nor suspicious lesion. Chronic left NET MANAGER territory infarct. CTA HEAD/CTA NECK Result Date: [...] Lymphoma of intra-abdominal lymph nodes Chemotherapy-induced pancytopenia Nausea and vomiting Hypokalemia Acid indigestion Encounter to discuss test results Reviewed results of CBC/diff and CMP with the patient and his dad WBC 3.54 --> 2.07 --> 0.67 ANC 3.28 --> 1.67 --> 0.47 Hgb 9.2 --> 7.6 --> 6.9 PLT 205 --> 139 --> 49 Java Flex Developer 0.8 GFR > 90 K 4.1 AST 12 ALT 24 Uric Acid 5.3 Scheduled for IV fluids x3/week on the week of chemotherapy Reinforced need to remain very well-hydrated while on chemotherapy and especially while receiving Cytoxan Repeat CBC/diff, CMP and LDH twice weekly Transfuse as needed for Hgb < 7 and PLT < 10 Transfuse 1 unit PRBC today for Hgb 6.9 Blood consent e-signed today Recently completed Cycle 3 of DA-EPOCH-R on 08/24/2023 with Cycle 4 Day 1 scheduled 09/07/2023 His khurram ANC after cycle 2 was 3300, so his dose of etoposide, doxorubicin, cyclophosphamide was increased by 20% in cycle 3. His systemic chemotherapy, as well as IT methotrexate on day 1, day 5 of every cycle, will be managed between [place], and [facility]. He is scheduled with IR in [place] for IT methotrexate on day 1, day [...] Acyclovir Start Levaquin for when ANC < 500, reviewed that he should start taking as ANC 0.47 Continue Potassium Chloride 20 mEq BID for hypokalemia Continue Pepcid 20 mg PO once daily for heartburn/indigestion Can use OTC TUMS PRN Continue taking Protonix [address] tablet once daily in the morning at least 30 minutes to 1 hour before food Continue Zofran for PRN nausea and vomiting Palliative Medicine following, next appointment 08/14/2023 Dose of R EPOCH to be adjusted [...] as clinically indicated. RTC as scheduled with Dr. Chaudhary, with CBC/diff, CMP, Uric Acid, UA and LDH NIK [facility]ille documented in this encounter Nursing Notes * Brayan Dempsey MED ASSIST - 08/27/2023 11:54 AM EDT Chief Complaint Patient presents with Follow Up Provider aware of VS. BP 121/72 | Pulse 78 | Temp 36.9 C (98.5 F) (Tympanic) | Wt 111.3 kg (245 lb 6.4 oz) | SpO2 100% | BMI 34.23 kg/m | BSA 2.36 m Patient was instructed to not get [...] Description 08/31/2023 10:00 AM EDT Laboratory Laboratory [facility], [place] [address] [place] [phone] [place], Lab [facility] [address] [facility] [address] 09/04/2023 10:00 AM EDT Laboratory Laboratory, [address] [phone] [facility], Lab [address] [place] [address] 09/04/2023 11:00 AM EDT Telemedicine Hematology/Oncology, [address] [address] Mike Chaudhary MD [facility] [address] [place], [place] [phone] Herve Hurtadoed [facility] Hem Onc Clinic [address] [place] [address] 09/07/2023 7:15 AM EDT Nurse Only Hematology Oncology [place] [address] [place] [address] [place], Nurse Lab Hem/Onc [address] [place] [address] 09/07/2023 8:00 AM EDT Hem/Onc Treatment Hematology Oncology [place] [address] [place] [address] Iesha, Chair 19 Hem/Onc [facility] [address] [place], [place] [phone] 09/07/2023 2:00 PM EDT Appointment Radiology, [address] [phone] 09/09/2023 11:00 AM EDT Hem/Onc Treatment Hematology/Oncology Treatment, [address] [address] [facility], Chair1 Hem Onc [address] [place] [address] 09/09/2023 1:00 PM EDT Office Visit Palliative Medicine, [address] [place] [address] Tessa Rubio [place] [address] [place] [address] 09/11/2023 9:00 AM EDT Nurse Only Hematology Oncology [facility], [address] [address] [place], Nurse Lab Hem/Onc [address] [place] [address] 09/11/2023 10:00 AM EDT Hem/Onc Treatment Hematology Oncology [facility], [address] [address] Iesha, Chair 19 Hem/Onc [address] [place] [address] 09/11/2023 2:00 PM EDT Appointment Radiology, [address] [phone] 09/14/2023 7:00 AM EDT Laboratory Laboratory, [address] [phone] [facility], Lab [address] [place] [address] 09/14/2023 8:00 AM EDT Immunization/Injection Hematology/Oncology Treatment, [address] [address] [facility], Chair1 Hem Onc [address] [place] [address] 09/18/2023 10:00 AM EDT Laboratory Laboratory, [address] [phone] [facility], Lab [address] [place] [address] 09/18/2023 11:00 AM EDT Telemedicine Hematology/Oncology, [address] [address] Mike Chaudhary MD [address] [place] [address] Cart, Telemed [facility] Hem Onc Clinic [address] [place] [address] 09/25/2023 2:40 PM EDT Office Visit Rheumatology [address] [address] Oliver Zhang MD [address] [place] [address] 02/19/2024 12:00 PM EST Office Visit Family [facility] [place] [facility] [address] [place] [address] Kayla Reeder DO [address] [place] [place] [address] Health Maintenance Due Date Last Done Comments COVID-19 Vaccine (#1) 1993 Influenza Vaccine (FLU shot) (#1) 2023 11/17/2016, 11/17/2016, 11/30/2015, Additional history exists Depression Screening 07/07/2024 07/08/2023, 06/11/19 24 Albumin/Creatinine Ratio Discontinued 08/02/2021 documented as of this encounter Medical Devices Implanted Type Area Copyholder Device Identifier Shelf Expiration Date Model / Serial / Lot Mediport Pwr Mri 8fr [id number] - [id number] Implanted:Qty : 1 on 07/17/2023 by Medhat Angel MD at OR [facility] Right: Chest CR BARD : PERIPHERAL VASCULAR 07/16/2024 [id number] / / [id number] Port Implant W8f Poly Cath - [id number] Implanted:Qty : 1 on 07/17/2023 by Medhat Angel MD at OR [facility] CR BARD : PERIPHERAL VASCULAR [id number] 07/16/2024 [id number] / / [id number] documented as of this encounter Visit Diagnoses Diagnosis 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)- Primary Burkitt's tumor or lymphoma of intra-abdominal lymph nodes 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) Other malignant lymphomas of intra-abdominal lymph nodes Chemotherapy induced nausea and vomiting Nausea with vomiting Encounter to discuss test results Other specified counseling documented in this encounter Advance Directives * [...] [facility] p Communication Trixie Le [facility] Repr esentative (appointed verbally by patient or by statute hierarchy) [email or web address] Care Teams Data Librarian Relationship Specialty Start Date End Date Kayla Reeder DO [address] [facility] [place] [phone] PCP - General Family Medicine 06/11/23 documented as of this encounter
--- OUTSIDE RECORDS SUMMARY | 2023-09-18 21:19 | External Medical Summary ---
Author Name Unknown Address Unknown Organization [id number]:LABORATORY [facility] [place] - [address] [facility] [place] [facility] [address] Laboratory Report Ordering Provider Test Date Status MATTI BARAJAS 08/31/2023 10:01:30 Final Observation Date Value Abnormality Reference (Units ) Status WBC, Total 08/31/2023 10:01:30 10.15 4.00-10.80 (K/uL) Final RBC 08/31/2023 10:01:30 2.54 4.50-5.25 (M/uL) Final Hemoglobin 08/31/2023 10:01:30 7.9 Below low normal 14.0-16.8 (g/dL) Final HCT 08/31/2023 10:01:30 25.3 Below low normal 40.0-48.4 (%) Final MCV 08/31/2023 10:01:30 99.6 82.0-99.5 (fL) Final MCH 08/31/2023 10:01:30 31.1 27.0-34.0 (pg) Final MCHC 08/31/2023 10:01:30 31.2 32.0-36.0 (g/dL) Final RDW 08/31/2023 10:01:30 20.5 11.5-15.5 (%) Final Platelets 08/31/2023 10:01:30 99 Below low normal 140-400 (K/uL) Final MPV 08/31/2023 10:01:30 12.1 6.6-11.1 (fL) Final Nucleated erythrocytes/100 leukocytes [Ratio] in Blood by Automated count 08/31/2023 10:01:30 4 Above high normal <=0 (/100 WBCs) Final Performing Location LAB[facility]ATORY [facility] - [address] [facility] [address]
--- OUTSIDE RECORDS SUMMARY | 2023-09-18 21:19 | External Medical Summary | Summary of Care ---
Author Name Unknown Organization [facility] Address [address] [place] [address] Phone [phone] Care Team Providers Care Maintenance Supervisor Mechanical Name Role Phone Kayla Reeder DO Primary Care Provider +1- [phone] Reason for Visit * Reason Comments Outpatient Testing Encounter Details Date Type Department Care Team ([facility] st Contact Info) Description 08/31/2023 10:00 AM EDT Laboratory Laboratory [facility] [address] [place] [address] [place], [facility] [address] [place] [address] Burkitt lymphoma of intra-abdominal lymph [...] Description 09/04/2023 10:00 AM EDT Laboratory Laboratory, [address] [place] [phone] [facility], Lab [address] [place] [address] 09/04/2023 11:00 AM EDT Telemedicine Hematology/Oncology, [address] [place] [address] Mkie Chaudhary MD [address] [place] [address] Cart, Telemed [facility] Hem Onc Clinic [address] [place] [address] 09/07/2023 7:15 AM EDT Nurse Only Hematology Oncology [facility] ([facility] [address] [address] [place], Nurse Lab Hem/Onc [address] [place] [address] 09/07/2023 8:00 AM EDT Hem/Onc Treatment Hematology Oncology [facility] ([facility] [address] [address] [place], Chair 19 Hem/Onc [address] [place] [address] 09/07/2023 2:00 PM EDT Appointment Radiology, [address] [phone] 09/09/2023 11:00 AM EDT Hem/Onc Treatment Hematology/Oncology Treatment, [address] [address] [facility], Chair1 Hem Onc [address] [place] [address] 09/09/2023 1:00 PM EDT Office Visit Palliative Medicine, [address] 5th [place] [address] Tessa Rubio PA-C [address] [place] [address] 09/11/2023 9:00 AM EDT Nurse Only Hematology Oncology [facility] ([facility] [address] [address] [place], Nurse Lab Hem/Onc [address] [place] [address] 09/11/2023 10:00 AM EDT Hem/Onc Treatment Hematology Oncology [facility], [place] [address] [place] [address] [place], Chair 19 Hem/Onc [address] [place] [address] 09/11/2023 2:00 PM EDT Appointment Radiology, [address] [phone] 09/14/2023 7:00 AM EDT Laboratory Laboratory, [address] [address] [facility], Lab [address] [place] [address] 09/14/2023 8:00 AM EDT Immunization/Injection Hematology/Oncology Treatment, [address] [address] [facility], Chair1 Hem Onc [address] [place] [address] 09/18/2023 10:00 AM EDT Laboratory Laboratory, [address] [address] [facility], Lab [address] [place] [address] 09/18/2023 11:00 AM EDT Telemedicine Hematology/Oncology, [address] [address] Mike Chaudhary MD [address] [place] [address] Bryant, Telemed [facility] Hem Onc Clinic [address] [place] [address] 09/25/2023 2:40 PM EDT Office Visit Rheumatology [facility] [address] [facility] [place] [address] Oliver Zhang MD [address] [facility] [place], [place] [address] 02/19/2024 12:00 PM EST Office Visit Family Practice [place], Marib[place] [address] [place] [phone] Kayla Reeder DO [address] [place] [address] Pending Results Name Type Priority Associated Diagnoses [...] encounter Medical Devices Implanted Type Area Manager Ui Device Identifier Shelf Expiration Date Model / Serial / Lot Mediport Pwr Mri 8fr [id number] - [id number] Implanted:Qty : 1 on 07/17/2023 by Medhat Angel MD at [facility] Right: Chest CR BARD : PERIPHERAL VASCULAR 07/16/2024 [id number] / / [id number] Port Implant W8f Poly Cath - [id number] Implanted:Qty : 1 on 07/17/2023 by Medhta Angel MD at [facility] CR BARD : PERIPHERAL VASCULAR [id number] 07/16/2024 [id number] / / [id number] documented as of this encounter Visit Diagnoses [...] File Name Relationship Healthcare Agent [facility] Communication Trixie Le [facility] Repr esentative (appointed verbally by patient or by statute hierarchy) [email or web address] Care Teams Maintenance Supervisor Mechanical Relationship Specialty Start Date End Date Kayla Reeder DO [address] [facility] [place] [address] PCP - General Family Medicine 06/11/23 documented as of this encounter
--- OUTSIDE RECORDS SUMMARY | 2023-09-18 21:19 | External Medical Summary ---
Author Name Unknown Address Unknown Organization K1F:LABORATORY [facility] - [address] [place] [address] Laboratory Report Ordering Provider Test Date Status TYE BARAJASMAIKEL 09/04/2023 10:27:24 Final Observation Date Value Abnormality Reference (Units ) Status Uric Acid 09/04/2023 10:27:24 6.4 3.4-7.0 (m g/dL) Final Performing Location LABORATORY [facility] - [address] [address]
--- OUTSIDE RECORDS SUMMARY | 2023-09-18 21:19 | External Medical Summary ---
Author Name Unknown Address Unknown Organization K01[place] [place] [address] [facility] [address] Laboratory Report Ordering Provider Test Date Status MATTI BARAJAS 08/31/2023 10:01:30 Final Observation Date Value Abnormality Reference (Units ) Status BUN 08/31/2023 10:01:30 12 6-20 (mg/dL) Final Creatinine 08/31/2023 10:01:30 1.0 0.6-1.2 (mg/dL) Final Glomerular filtration rate/1.73 sq M.predicted [Volume Rate/Area] in Serum, Plasma or Blood by Creatinine-based formula (CKD-EPI) 08/31/2023 10:01:30 >90 >=60 (mL/min) Final eGFR is calculated based on the CKD-EPI 2020 equation Sodium 08/31/2023 10:01:30 143 135-146 (m mol/L) Final Potassium 08/31/2023 10:01:30 3.7 3.5-5.1 (m mol/L) Final Cl 08/31/2023 10:01:30 105 98-107 (mm ol/L) Final CO2 08/31/2023 10:01:30 24 22-32 (mmo l/L) Final Anion gap 08/31/2023 10:01:30 14 7-15 (mmol /L) Final Glucose 08/31/2023 10:01:30 109 70-120 (mg /dL) Final Albumin 08/31/2023 10:01:30 3.9 3.8-5.0 (g /dL) Final AST (Aspartate aminotransferase) 08/31/2023 10:01:30 26 10-50 (U/L) Fin al Alk Phos 08/31/2023 10:01:30 93 35-130 (U/ L) Final Bilirubin, Total 08/31/2023 10:01:30 0.3 <=1 .2 (mg/dL) Final Calcium 08/31/2023 10:01:30 9.0 8.4-10.2 ( mg/dL) Final Protein 08/31/2023 10:01:30 5.9 Below low normal 6.0 -8.3 (g/dL) Final ALT (Alanine aminotransferase) 08/31/2023 10:01:30 17 10-50 (U/L) Jaswinder mullen Performing Location [facility] [place] [facility] [place] [facility] [address] [place]. [facility] [address]
--- OUTSIDE RECORDS SUMMARY | 2023-09-18 21:20 | External Medical Summary ---
Author Name Unknown Address Unknown Organization K1F:LABORATORY [facility] - [address] [place] [address] Laboratory Report Ordering Provider Test Date Status TYE BARAJASMAIKEL 08/27/2023 11:47:20 Final Observation Date Value Abnormality Reference (Units ) Status ABO 08/27/2023 11:47:20 O Final RH 08/27/2023 11:47:20 Positive Final Performing Location LABORATORY [facility] - [address] [place] [address]
--- OUTSIDE RECORDS SUMMARY | 2023-09-18 21:20 | External Medical Summary ---
Author Name Unknown Address Unknown Organization K1F:LABORATORY [facility] - [address] [place] [address] Laboratory Report Ordering Provider Test Date Status MATTI BARAJAS 08/27/2023 11:30:57 Final Observation Date Value Abnormality Reference (Units ) Status ABO 08/27/2023 11:30:57 O Final RH 08/27/2023 11:30:57 Positive Final RED BLOOD CELL ANTIBODY SCREEN 08/27/2023 11:30:57 Negative Final SPECIMEN EXPIRATION DATE 08/27/2023 11:30:57 08/30/2023 23:59 Final Performing Location LABORATORY [facility] - [address] [place] [address]
--- OUTSIDE RECORDS SUMMARY | 2023-09-18 21:20 | External Medical Summary | Summary of Care ---
Author Name Unknown Organization [facility] Address [address] [place] [address] Phone [phone] Care Team Providers Care Applications Development Analyst Name Role Phone Reeder Kayla Clarke DO Primary Care Provider +1- [phone] Reason for Visit * Reason Comments Outpatient Testing Encounter Details Date Type Department Care Team ([facility] st Contact Info) Description 08/27/2023 10:30 AM EDT Laboratory Laboratory, [facility] [address] [place] [phone] [facility], Lab [address] [place] [address] Burkitt lymphoma of intra-abdominal lymph [...] THE MORNING AND BEFORE BEDTIME) 180 Tablet 02/23/2023 Active hydroCHLOROthiazide 12.5 MG Oral Capsule (Hydrodiuril)Indicat ions:History of petit-mal seizures Take 1 Capsule by mouth in the morning. 90 Capsule 03/02/2023 Active Loratadine 10 MG Oral Tablet (Claritin)Indication s:Chronic cough Take 1 Tablet by mouth in the morning. 30 Tablet 05/01/2023 Active Celecoxib 200 MG Oral Capsule [...] by mouth in the morning. 30 Tablet 07/08/2023 Active Sennosides-Docusate Sodium 8.6-50 MG Oral [...] Care Team (Late st Contact Info) Description 08/27/2023 12:00 PM EDT Hem/Onc Treatment Hematology/Oncology Treatment, [address] [place] [address] [facility], Chair4 Hem Onc [address] [place], [place] [address] [address] Arrived 08/31/2023 10:00 AM EDT Laboratory Laboratory [place] Mar[place]ell Garcia [address] [place] [phone] [place] Jose [address] [place] [address] 09/04/2023 10:00 AM EDT Laboratory Laboratory, [address] [phone] [facility], Lab [address] [place] [address] 09/04/2023 11:00 AM EDT Telemedicine Hematology/Oncology, [address] [address] Mike Chaudhary MD [address] [place] [address] Cart, Telemed [facility] Hem Onc Clinic [address] [place] [address] 09/07/2023 7:15 AM EDT Nurse Only Hematology Oncology [place] [address] [place] [address] [place], Nurse Lab Hem/Onc [facility] [place] [address] 09/07/2023 8:00 AM EDT Hem/Onc Treatment Hematology Oncology [place] [address] [place] [address] [place], Chair 19 Hem/Onc [facility] [place] [address] 09/07/2023 2:00 PM EDT Appointment Radiology, [address] [phone] 09/09/2023 11:00 AM EDT Hem/Onc Treatment Hematology/Oncology Treatment, [address] [address] [facility], Chair1 Hem Onc [address] [place] [address] 09/09/2023 1:00 PM EDT Office Visit Palliative Medicine, [address] [place] [address] Tessa Rubio PA-C [address] [place] [address] 09/11/2023 9:00 AM EDT Nurse Only Hematology Oncology [facility], [address] [address] [place], Nurse Lab Hem/Onc [address] [place] [address] 09/11/2023 10:00 AM EDT Hem/Onc Treatment Hematology Oncology [facility], [address] [address] [place], Chair 19 Hem/Onc [address] [place] [address] 09/11/2023 2:00 PM EDT Appointment Radiology, [address] [phone] 09/14/2023 7:00 AM EDT Laboratory Laboratory, [address] [phone] [facility], Lab [address] [place] [address] 09/14/2023 8:00 AM EDT Immunization/Injection Hematology/Oncology Treatment, [address] [address] [facility], Chair1 Hem Onc [address] [place] [address] 09/18/2023 10:00 AM EDT Laboratory Laboratory, [address] [phone] [facility], Lab [address] [place] [address] 09/18/2023 11:00 AM EDT Telemedicine Hematology/Oncology, [facility] [address] [facility] [place] [address] Mike Chaudhary MD [address] [place], [place] [phone] Cart, Telemed [facility] Hem Onc Clinic [address] [facility], [place] [phone] 09/25/2023 2:40 PM EDT Office Visit Rheumatology [place] [address] [employer] [place] [address] Oliver Zhang MD [facility] [place] [employer] [place] [address] 02/19/2024 12:00 PM EST Office Visit Family [facility] Maribell Garcia [address] [place] [address] Kayla Reeder DO [address] [place] [address] Pending Results Name Type Priority Associated Diagnoses Date /Time TYPE AND SCREEN Lab STAT 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) 08/27/2023 11:30 AM EDT ABO/RH Lab STAT 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) 08/27/2023 11:47 AM EDT Health Maintenance Due Date Last Done Comments COVID-19 Vaccine (#1) 1993 Influenza Vaccine (FLU shot) (#1) 2023 11/17/2016, 11/17/2016, 11/30/2015, Additional history exists Depression Screening 07/07/2024 07/08/2023, 06/11/19 24 Albumin/Creatinine Ratio Discontinued 08/02/2021 documented as of this encounter Medical Devices Implanted Type Area Manager Education Device Identifier Shelf Expiration Date Model / Serial / Lot Mediport Pwr Mri 8fr [id number] - [id number] Implanted:Qty : 1 on 07/17/2023 by Medhat Angel MD at OR [facility] Right: Chest CR BARD : PERIPHERAL VASCULAR 07/16/2024 [id number] / / [id number] Port Implant W8f Poly Cath - [id number] Implanted:Qty : 1 on 07/17/2023 by Medhat Angel MD at OR [facility] CR BARD : PERIPHERAL VASCULAR [id number] 07/16/2024 [id number] / / [id number] documented as of this encounter Procedures Procedure Name Priority Date/Time Associated Diagnosis Comments DIFFERENTIAL, AUTOMATED STAT 08/27/2023 10:22 AM EDT 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) COMPREHENSIVE METABOLIC PANEL STAT 08/27/2023 10:22 AM EDT 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) CBC STAT 08/27/2023 10:22 AM EDT 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) LD STAT 08/27/2023 10:22 AM EDT 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) CBC STAT 08/27/2023 10:22 AM EDT 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) DIFFERENTIAL, TECHNOLOGIST REVIEW Routine 08/27/2023 10:22 AM EDT 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) URIC ACID STAT 08/27/2023 10:22 AM EDT 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) documented in this encounter Results * (ABNORMAL) DIFFERENTIAL, TECHNOLOGIST REVIEW (08/27/2023 10:22 AM EDT) Pathologist [facility] WBC 0.67(LL) 4.00 - 10.80 K/uL 08/27/2023 11:13 AM EDT LABORATORY [facility] Neutrophils % 70.0 40.0 - 75.0 % 08/27/2023 11:13 AM EDT LABORATORY [facility] Lymphocytes % 25.0 18.0 - 42.0 % 08/27/2023 11:13 AM EDT LABORATORY [facility] Monocytes % 1.0 1.0 - 11.0 % 08/27/2023 11:13 AM EDT LABORATORY [facility] Basophils % 4.0(H) 0.0 - 2.0 % 08/27/2023 11:13 AM EDT LABORATORY [facility] Absolute Neutrophils 0.47(L) 1.80 - 7.70 K/uL 08/27/2023 11:13 AM EDT LABORATORY [facility] Absolute Lymphocytes 0.17(L) 1.00 - 4.80 K/uL 08/27/2023 11:13 AM EDT LABORATORY [facility] Absolute Monocytes 0.01 0.00 - 1.10 K/uL 08/27/2023 11:13 AM EDT LABORATORY GL Absolute Basophils 0.03 0.00 - 0.20 K/uL 08/27/2023 11:13 AM EDT LABORATORY [facility] Blood Venous blood specimen / Unknown Venipuncture / Unknown 08/27/2023 10:22 AM EDT 08/27/2023 10:25 AM EDT Mike Chaudhary MD LAB BLOOD O RDERABLES Performing Organization Address City/[facility] Co de Phone Number LABORATORY [address] [address] * DIFFERENTIAL, AUTOMATED (08/27/2023 10:22 AM EDT) Blood Venous blood specimen / Unknown Venipuncture / Unknown 08/27/2023 10:22 AM EDT 08/27/2023 10:25 AM EDT Mike Chaudhary MD LAB BLOOD O RDERABLES Performing Organization Address City/[facility]/ZIP Co de Phone Number LABORATORY [address] [phone] * (ABNORMAL) CBC (08/27/2023 10:22 AM EDT) WBC 0.67(LL) 4.00 - 10.80 K/uL 08/27/2023 11:06 AM EDT LABORATORY [facility] RBC 2.17 4.50 - 5.25 M/uL 08/27/2023 11:06 AM EDT LABORATORY [facility] HGB 6.9(L) 14.0 - 16.8 g/dL 08/27/2023 11:06 AM EDT LABORATORY [facility] HCT 20.7(L) 40.0 - 48.4 % 08/27/2023 11:06 AM EDT LABORATORY [facility] MCV 95.4 82.0 - 99.5 fL 08/27/2023 11:06 AM EDT LABORATORY [facility] MCH 31.8 27.0 - 34.0 pg 08/27/2023 11:06 AM EDT LABORATORY [facility] MCHC 33.3 32.0 - 36.0 g/dL 08/27/2023 11:06 AM EDT LABORATORY [facility] RDW 18.0 11.5 - 15.5 % 08/27/2023 11:06 AM EDT LABORATORY [facility] PLT 49(L) 140 - 400 K/uL 08/27/2023 11:06 AM EDT LABORATORY [facility] MPV 9.6 6.6 - 11.1 fL 08/27/2023 11:06 AM EDT LABORATORY [facility] nRBCs 0 <=0 /100 WBCs 08/27/2023 11:06 AM EDT LABORATORY [facility] Blood Venous blood specimen / Unknown Venipuncture / Unknown 08/27/2023 10:22 AM EDT 08/27/2023 10:25 AM EDT Mike Chaudhary MD LAB BLOOD O RDERABLES LABORATORY [facility] [address] [place] [address] * LD (08/27/2023 10:22 AM EDT) LD 208 <=250 U/L 08/27/2023 11:13 AM EDT LABORATORY [facility] Comment:Results may be false ly elevated due to hemolysis. Blood Venous blood specimen / Unknown Venipuncture / Unknown 08/27/2023 10:22 AM EDT 08/27/2023 10:25 AM EDT Mike Chaudhary MD LAB BLOOD O RDERABLES Performing Organization Address City/[facility]/ZIP Co de Phone Number LABORATORY [facility] [address] [place] [address] * URIC ACID (08/27/2023 10:22 AM EDT) Uric Acid 5.3 3.4 - 7.0 mg/dL 08/27/2023 11:13 AM EDT LABORATORY [facility] Blood Venous blood specimen / Unknown Venipuncture / Unknown 08/27/2023 10:22 AM EDT 08/27/2023 10:25 AM EDT Mike Chaudhary MD LAB BLOOD O RDERABLES Performing Organization Address City/[facility] Co de Phone Number LABORATORY [address] [phone] * (ABNORMAL) COMPREHENSIVE METABOLIC PANEL (08/27/2023 10:22 AM EDT) BUN 16 6 - 20 mg/dL 08/27/2023 11:13 AM EDT LABORATORY [facility] Creatinine 0.8 0.6 - 1.2 mg/dL 08/27/2023 11:13 AM EDT LABORATORY [facility] Estimated Glomerular Filtration Rate >90 >=60 mL/min 08/27/2023 11:13 AM EDT LABORATORY [facility] Comment:eGFR is calculated b ased on the CKD-EPI 2020 equation Sodium 140 135 - 146 mmol/L 08/27/2023 11:13 AM EDT LABORATORY [facility] Potassium 4.1 3.5 - 5.1 mmol/L 08/27/2023 11:13 AM EDT LABORATORY [facility] Chloride 106 98 - 107 mmol/L 08/27/2023 11:13 AM EDT LABORATORY [facility] CO2 25 22 - 32 mmol/L 08/27/2023 11:13 AM EDT LABORATORY [facility] Anion Gap 9 7 - 15 mmol/L 08/27/2023 11:13 AM EDT LABORATORY [facility] Glucose 128(H) 70 - 120 mg/dL 08/27/2023 11:13 AM EDT LABORATORY [facility] Albumin 4.1 3.8 - 5.0 g/dL 08/27/2023 11:13 AM EDT LABORATORY [facility] AST 12 10 - 50 U/L 08/27/2023 11:13 AM EDT LABORATORY [facility] Comment:Results may be false ly elevated due to hemolysis. Alkaline Phosphatase 71 35 - 130 U/L 08/27/2023 11:13 AM EDT LABORATORY [facility] Bilirubin, Total 0.6 <=1.2 mg/dL 08/27/2023 11:13 AM EDT LABORATORY [facility] Calcium 9.4 8.4 - 10.2 mg/dL 08/27/2023 11:13 AM EDT LABORATORY [facility] Protein 6.4 6.0 - 8.3 g/dL 08/27/2023 11:13 AM EDT LABORATORY [facility] ALT 24 10 - 50 U/L 08/27/2023 11:13 AM EDT LABORATORY [facility] Blood Venous blood specimen / Unknown Venipuncture / Unknown 08/27/2023 10:22 AM EDT 08/27/2023 10:25 AM EDT Mike Chaudhary MD LAB BLOOD O RDERABLES Performing Organization Address City/State/[facility] Co de Phone Number LABORATORY [facility] [address] [place] [address] documented in this encounter Visit [...] Healthcare Agent Relationshi p Communication Trixie Le [facility] Care Repr esentative (appointed verbally by patient or by statute hierarchy) [email or web address] Care Teams Applications Development Analyst Relationship Specialty Start Date End Date Kayla Reeder DO [address] [facility] [place] [address] PCP - General Family Medicine 06/11/23 documented as of this encounter
--- OUTSIDE RECORDS SUMMARY | 2023-09-18 21:20 | External Medical Summary ---
Author Name Unknown Address Unknown Organization K1F:LABORATORY [facility] - [address] [place] [address] Laboratory Report Ordering Provider Test Date Status MATTI BARAJAS 08/27/2023 10:22:43 Final Observation Date Value Abnormality Reference (Units ) Status WBC, Total 08/27/2023 10:22:43 0.67 Below lower panic limits 4.00-10.80 (K/uL) Final RBC 08/27/2023 10:22:43 2.17 4.50-5.25 (M/uL) Final Hemoglobin 08/27/2023 10:22:43 6.9 Below low normal 14.0-16.8 (g/dL) Final HCT 08/27/2023 10:22:43 20.7 Below low normal 40.0-48.4 (%) Final MCV 08/27/2023 10:22:43 95.4 82.0-99.5 (fL) Final MCH 08/27/2023 10:22:43 31.8 27.0-34.0 (pg) Final MCHC 08/27/2023 10:22:43 33.3 32.0-36.0 (g/dL) Final RDW 08/27/2023 10:22:43 18.0 11.5-15.5 (%) Final Platelets 08/27/2023 10:22:43 49 Below low normal 140-400 (K/uL) Final MPV 08/27/2023 10:22:43 9.6 6.6-11.1 (fL) Final Nucleated erythrocytes/100 leukocytes [Ratio] in Blood by Automated count 08/27/2023 10:22:43 0 <=0 (/100 WBCs) Final Performing Location LABORATORY [facility] - [address] [address]
--- OUTSIDE RECORDS SUMMARY | 2023-09-18 21:20 | External Medical Summary ---
Author Name Unknown Address Unknown Organization K1F:LABORATORY [facility] - [address] [address] Laboratory Report Ordering Provider Test Date Status MATTI BARAJAS 08/27/2023 10:22:43 Final Observation Date Value Abnormality Reference (Units ) Status LDH 08/27/2023 10:22:43 208 <=250 (U/L ) Final Results may be falsely eleva ketan due to hemolysis. Performing Location LABORATORY [facility] - [address] [address]
--- OUTSIDE RECORDS SUMMARY | 2023-09-18 21:20 | External Medical Summary ---
Author Name Unknown Address Unknown Organization K1F:LABORATORY [facility] - [address] [place] [address] Laboratory Report Ordering Provider Test Date Status MATTI BARAJAS 08/27/2023 10:22:43 Final Observation Date Value Abnormality Reference (Units ) Status SYNC LEUKOCYTES IN BLOOD BY AUTOMATED COUNT 08/27/2023 10:22:43 0.67 Below lower panic limits 4.00-10.80 (K/uL) Final Neutrophils/100 leukocytes in Blood by Manual count 08/27/2023 10:22:43 70.0 40.0-75.0 (%) Final Lymphocytes/100 leukocytes in Blood by Manual count 08/27/2023 10:22:43 25.0 18.0-42.0 (%) Final Monocytes/100 leukocytes in Blood by Manual count 08/27/2023 10:22:43 1.0 1.0-11.0 (%) Final Basophils/100 leukocytes in Blood by Manual count 08/27/2023 10:22:43 4.0 Above high normal 0.0-2.0 (%) Final Neutrophils [#/volume] in Blood by Manual count 08/27/2023 10:22:43 0.47 Below low normal 1.80-7.70 (K/uL) Final Lymphocytes [#/volume] in Blood by Manual count 08/27/2023 10:22:43 0.17 Below low normal 1.00-4.80 (K/uL) Final Monocytes [#/volume] in Blood by Manual count 08/27/2023 10:22:43 0.01 0.00-1.10 (K/uL) Final Basophils [#/volume] in Blood by Manual count 08/27/2023 10:22:43 0.03 0.00-0.20 (K/uL) Final Performing Location LABORATORY [facility] - [address] [place] [address]
--- OUTSIDE RECORDS SUMMARY | 2023-09-18 21:20 | External Medical Summary | Summary of Care ---
Author Name Unknown Organization [facility] Address [address] [place] [address] Phone [phone] Care Team Providers Care Agricultural Specialist Name Role Phone ReederKaylasnehal MALDONADO Primary Care Provider +1- [phone] Reason for Visit * Reason Onset Date Comments Lab Draw Only 08/21/2023 Encounter Details Date Type Department Care Team ([facility] st Contact Info) Description 08/21/2023 Telephone Hematology/Oncology, [facility] [address] [place] [address] Mike Chaudhary MD [address] [place] [address] Lab Draw Only Allergies No [...] Breath or Cough. 18 g 06/09/2023 Active Fluticasone-Salmete rol 250-50 MCG/ACT Inhalation Aerosol Powder Breath Activated (Advair Diskus)Indications: Chronic cough INHALE ONE PUFF BY MOUTH EVERY MORNING AND ONE PUFF BEFORE BEDTIME 60 Each 06/11/2023 Active Sulfamethoxazole-Tr imethoprim 400-80 MG Oral [...] for Pain, Breakthrough. 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 Chaudhary Treatment: DA-EPOCH Cycle 3 Patient was educated by nurse specialist at start of treatment: Yes Per communication from clinic pharmacist, Day 1 of current cycle was 08/16, which was a Thursday, meaning: lab appt scheduled for Thursday, lab appt scheduled for , lab appt scheduled for Thursday, lab appt scheduled for , 09/02 Reviewed patient chart today to contact patient for lab reminder for the upcoming week on the days and dates as outlined above Will follow up on 08/24/23(Date) for next labs due on Radha Grimm [facility] III Hematology Oncology Oral Chemotherapy Clinic Medication Therapy Disease Management [facility] 08/21/2023 2:46 PM Time Spent on Encounter: 6 - 10 minutes documented in this encounter Plan of Treatment Upcoming Encounters Date Type Department Care Team (Late st Contact Info) Description 08/31/2023 10:00 AM EDT Laboratory Laboratory [facility] [address] [place] [phone] [place], Lab [facility] [address] [place] [address] 09/04/2023 10:00 AM EDT Laboratory Laboratory, [address] [phone] [facility], Lab [address] [place] [address] 09/04/2023 11:00 AM EDT Telemedicine Hematology/Oncology, [address] [address] Mike Chaudhary MD [address] [place] [address] Cart, Telemed [facility] Hem Onc Clinic [address] [place] [address] 09/07/2023 7:15 AM EDT Nurse Only Hematology Oncology [facility], [address] [address] [place], Nurse Lab Hem/Onc [address] [place] [address] 09/07/2023 8:00 AM EDT Hem/Onc Treatment Hematology Oncology [facility], [address] [address] [place], Chair 19 Hem/Onc [address] [place] [address] 09/07/2023 2:00 PM EDT Appointment Radiology, [address] [phone] 09/09/2023 11:00 AM EDT Hem/Onc Treatment Hematology/Oncology Treatment, [address] [address] [facility], Chair1 Hem Onc [address] [place] [address] 09/09/2023 1:00 PM EDT Office Visit Palliative Medicine, [address] 5th [place] [address] Tessa Rubio [employer] [address] [place] [address] 09/11/2023 9:00 AM EDT Nurse Only Hematology Oncology [facility], [address] [address] [place], Nurse Lab Hem/Onc [address] [place] [address] 09/11/2023 10:00 AM EDT Hem/Onc Treatment Hematology Oncology [facility], [place] [address] [place] [address] [place], Chair 19 Hem/Onc [address] [place] [address] 09/11/2023 2:00 PM EDT Appointment Radiology, [address] [phone] 09/14/2023 7:00 AM EDT Laboratory Laboratory, [address] [phone] [facility], Lab [address] [place] [address] 09/14/2023 8:00 AM EDT Immunization/Injection Hematology/Oncology Treatment, [address] [address] [facility], Chair1 Hem Onc [address] [place] [address] 09/18/2023 10:00 AM EDT Laboratory Laboratory, [address] [address] [facility], Lab [address] [place] [address] 09/18/2023 11:00 AM EDT Telemedicine Hematology/Oncology, [address] [address] Mike Chaudhary MD [facility] [place] [address] Herve Hurtadoed [facility] Hem Onc Clinic [address] [place] [address] 09/25/2023 2:40 PM EDT Office Visit Rheumatology [facility] [address] [employer] [facility] [place] [address] Oliver Zhang MD [address] [place], [place] [address] 02/19/2024 12:00 PM EST Office Visit Family Practice [address], [place] [address] [place] [address] Kayla Reeder DO [address] [place] [address] Health Maintenance Due Date Last Done Comments COVID-19 Vaccine (#1) 1993 Influenza Vaccine (FLU shot) (#1) 2023 11/17/2016, 11/17/2016, 11/30/2015, Additional history exists Depression Screening 07/07/2024 07/08/2023, 06/11/19 24 Albumin/Creatinine Ratio Discontinued 08/02/2021 documented as of this encounter Medical Devices Implanted Type Area Labor Law Professor Device Identifier Shelf Expiration Date Model / Serial / Lot Mediport Pwr Mri 8fr [id number] - [id number] Implanted:Qty : 1 on 07/17/2023 by Medhat Angel MD at OR [facility] Right: Chest CR BARD : PERIPHERAL VASCULAR 07/16/2024 [id number] / / [id number] Port Implant W8f Poly Cath - [id number] Implanted:Qty : 1 on 07/17/2023 by Medhat Angel MD at OR [facility] CR BARD : PERIPHERAL VASCULAR [id number] 07/16/2024 [id number] / / [id number] documented as of this encounter Advance Directives [...] Agents on File Name Relationship Healthcare Agent [facility] Communication Trixie Le [facility] Repr esentative (appointed verbally by patient or by statute hierarchy) [email or web address] Care Teams Agricultural Specialist Relationship Specialty Start Date End Date Kayla Reeder DO [address] [facility] [place] [address] PCP - General Family Medicine 06/11/23 documented as of this encounter
--- OUTSIDE RECORDS SUMMARY | 2023-09-18 21:20 | External Medical Summary | Summary of Care ---
Author Name Unknown Organization [facility] Address [address] [place] [address] Phone [phone] Care Team Providers Care Fashion Design Professor Name Role Phone Reeder Kayla Clarke DO Primary Care Provider +1- [phone] Reason for Visit * Reason Comments Outpatient Testing Encounter Details Date Type Department Care Team ([facility] st Contact Info) Description 08/27/2023 10:30 AM EDT Laboratory Laboratory, [facility] [address] [place] [phone] [facility], Lab [address] [place] [address] Burkitt lymphoma of intra-abdominal lymph [...] 12:00 PM EDT Hem/Onc Treatment Hematology/Oncology Treatment, [facility] [address] [place] [address] [facility], Chair4 [facility]c [address] [facility] [address] 08/31/2023 10:00 AM EDT Laboratory Laboratory [place] [address] [place] [phone] [place] 1970 [place] [address] 09/04/2023 10:00 AM EDT Laboratory Laboratory, [address] [phone] [facility], Lab [address] [place] [address] 09/04/2023 11:00 AM EDT Telemedicine Hematology/Oncology, [address] [address] Mike Chaudhary MD [address] [place] [address] Cart, Telemed [facility] Hem Onc Clinic [address] [place] [address] 09/07/2023 7:15 AM EDT Nurse Only Hematology Oncology [place] [address] [place] [address] [place], Nurse Lab Hem/Onc [address] [place] [address] 09/07/2023 8:00 AM EDT Hem/Onc Treatment Hematology Oncology [place] [address] [place] [address] [place], Chair 19 Hem/Onc [facility] [place] [address] 09/07/2023 2:00 PM EDT Appointment Radiology, [address] [phone] 09/09/2023 11:00 AM EDT Hem/Onc Treatment Hematology/Oncology Treatment, [address] [address] [facility], Chair1 Hem Onc [address] [place] [address] 09/09/2023 1:00 PM EDT Office Visit Palliative Medicine, [address] 5th [place] [address] Tessa Rubio PA-C [address] [place] [address] 09/11/2023 9:00 AM EDT Nurse Only Hematology Oncology [facility], [address] [address] [place], Nurse Lab Hem/Onc [address] [place] [address] 09/11/2023 10:00 AM EDT Hem/Onc Treatment Hematology Oncology [facility], [address] [address] [place], Chair 19 Hem/Onc [address] [place] [address] 09/11/2023 2:00 PM EDT Appointment Radiology, [address] [phone] 09/14/2023 7:00 AM EDT Laboratory Laboratory, [address] [phone] [facility], Lab [address] [place] [address] 09/14/2023 8:00 AM EDT Immunization/Injection Hematology/Oncology Treatment, [address] [address] [facility], Chair1 Hem Onc [address] [place] [address] 09/18/2023 10:00 AM EDT Laboratory Laboratory, [address] [place] [phone] [facility], Lab [address] [place] [address] 09/18/2023 11:00 AM EDT Telemedicine Hematology/Oncology, [facility] [address] [place] [address] Mike Chaudhary MD [address] [place] [address] Cart, Telemed [facility] Hem Onc Clinic [address] [place], [place] [address] 09/25/2023 2:40 PM EDT Office Visit Rheumatology [place] [address] [place] [address] Oliver Zhang MD [facility] [employer] [place] [address] 02/19/2024 12:00 PM EST 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) 08/27/2023 11:30 AM EDT Health Maintenance Due Date Last Done Comments COVID-19 Vaccine (#1) 1993 Influenza Vaccine (FLU shot) (#1) 2023 11/17/2016, 11/17/2016, 11/30/2015, Additional history exists Depression Screening 07/07/2024 07/08/2023, 06/11/19 24 Albumin/Creatinine Ratio Discontinued 08/02/2021 documented as of this encounter Medical Devices Implanted Type Area Residential Interior Designer Device Identifier Shelf Expiration Date Model / Serial / Lot Mediport Pwr Mri 8fr [id number] - [id number] Implanted:Qty : 1 on 07/17/2023 by Medhat Angel MD at OR [facility] Right: Chest CR BARD : PERIPHERAL VASCULAR 07/16/2024 [id number] / / [id number] Port Implant W8f Poly Cath - [id number] Implanted:Qty : 1 on 07/17/2023 by Medhat Angel MD at OR [facility] CR BARD : PERIPHERAL VASCULAR [id number] 07/16/2024 [id number] / / [id number] documented as of this encounter Procedures Procedure [...] DIFFERENTIAL, TECHNOLOGIST REVIEW (08/27/2023 10:22 AM EDT) WBC 0.67(LL) 4.00 - 10.80 K/uL 08/27/2023 11:13 AM EDT LABORATORY [facility] Neutrophils % 70.0 40.0 - 75.0 % [...] 4.80 K/uL 08/27/2023 11:13 AM EDT LABORATORY [facility] Absolute Monocytes 0.01 0.00 - 1.10 K/uL 08/27/2023 11:13 AM EDT LABORATORY [facility] Absolute Basophils 0.03 0.00 - 0.20 K/uL 08/27/2023 11:13 AM EDT LABORATORY [facility] Blood Venous blood specimen / Unknown Venipuncture / Unknown 08/27/2023 10:22 AM EDT 08/27/2023 10:25 AM EDT Mike Chaudhary MD LAB BLOOD O RDERABLES Performing Organization Address City/[facility] Co de Phone Number LABORATORY [address] [address] * DIFFERENTIAL, AUTOMATED (08/27/2023 10:22 AM EDT) Blood Venous blood specimen / Unknown Venipuncture / Unknown 08/27/2023 10:22 AM EDT 08/27/2023 10:25 AM EDT Mike Chaudhary MD LAB BLOOD O RDERABLES Performing Organization Address City/[facility]/ZIP Co de Phone Number LABORATORY [address] [phone] * (ABNORMAL) CBC (08/27/2023 10:22 AM EDT) WBC 0.67(LL) 4.00 - 10.80 K/uL 08/27/2023 11:06 AM EDT LABORATORY [facility] RBC 2.17 4.50 - 5.25 M/uL 08/27/2023 11:06 AM EDT LABORATORY [facility] HGB 6.9(L) 14.0 - 16.8 g/dL 08/27/2023 11:06 AM EDT LABORATORY [facility] HCT 20.7(L) 40.0 - 48.4 % 08/27/2023 11:06 AM EDT LABORATORY [facility] MCV 95.4 82.0 - 99.5 fL 08/27/2023 11:06 AM EDT LABORATORY [facility] MCH 31.8 27.0 - 34.0 pg 08/27/2023 11:06 AM EDT LABORATORY [facility] MCHC 33.3 32.0 - 36.0 g/dL 08/27/2023 11:06 AM EDT LABORATORY [facility] RDW 18.0 11.5 - 15.5 % 08/27/2023 11:06 AM EDT LABORATORY [facility] PLT 49(L) 140 - 400 K/uL 08/27/2023 11:06 AM EDT LABORATORY [facility] MPV 9.6 6.6 - 11.1 fL 08/27/2023 11:06 AM EDT LABORATORY [facility] nRBCs 0 <=0 /100 WBCs 08/27/2023 11:06 AM EDT LABORATORY [facility] Blood Venous blood specimen / Unknown Venipuncture / Unknown 08/27/2023 10:22 AM EDT 08/27/2023 10:25 AM EDT Mike Chaudhary MD LAB BLOOD O RDERABLES LABORATORY [facility] [address] [place] [address] * LD (08/27/2023 10:22 AM EDT) LD 208 <=250 U/L 08/27/2023 11:13 AM EDT LABORATORY [facility] Comment:Results may be false ly elevated due to hemolysis. Blood Venous blood specimen / Unknown Venipuncture / Unknown 08/27/2023 10:22 AM EDT 08/27/2023 10:25 AM EDT Mike Chaudhary MD LAB BLOOD O RDERABLES Performing Organization Address City/[facility]/ZIP Co de Phone Number LABORATORY [facility] [address] [place] [address] * URIC ACID (08/27/2023 10:22 AM EDT) Uric Acid 5.3 3.4 - 7.0 mg/dL 08/27/2023 11:13 AM EDT LABORATORY [facility] Blood Venous blood specimen / Unknown Venipuncture / Unknown 08/27/2023 10:22 AM EDT 08/27/2023 10:25 AM EDT Mike Chaudhary MD LAB BLOOD O RDERABLES Performing Organization Address [facility] Co de Phone Number LABORATORY [address] [address] * (ABNORMAL) COMPREHENSIVE METABOLIC PANEL (08/27/2023 10:22 [...] Chaudhary MD LAB BLOOD O RDERABLES LABORATORY [facility] [address] [place] [address] documented in this encounter Visit [...] Healthcare Agent [facility] p Communication Trixie D [facility] Care Repr esentative (appointed verbally by patient or by statute hierarchy) [email or web address] Care Teams Fashion Design Professor Relationship Specialty Start Date End Date Kayla Reeder DO [address] [facility] [place] [address] PCP - General Family Medicine 06/11/23 documented as of this encounter
--- OUTSIDE RECORDS SUMMARY | 2023-09-18 21:20 | External Medical Summary | Summary of Care ---
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 30 Tablet 08/14/2023 Active documented as of this encounter (statuses [...] AM EDT Laboratory Laboratory [facility] [place] [address] [facility] [place] [phone] [facility] Lab [facility] [address] [place] [address] 09/04/2023 10:00 AM EDT Laboratory Laboratory, [address] [phone] [facility], Lab [address] [place] [address] 09/04/2023 11:00 AM EDT Telemedicine Hematology/Oncology, [address] [address] Mike Chaudhary MD [address] [place] [address] Herve Hurtadoed [facility] Hem Onc Clinic [address] [place] [address] 09/07/2023 7:15 AM EDT Nurse Only Hematology Oncology [facility] [address] [place] [address] [place], Nurse Lab Hem/Onc [address] [place] [address] 09/07/2023 8:00 AM EDT Hem/Onc Treatment Hematology Oncology [facility], [address] [address] [place], Chair 19 Hem/Onc [address] [place] [address] 09/07/2023 2:00 PM EDT Appointment Radiology, [address] [phone] 09/09/2023 11:00 AM EDT Hem/Onc Treatment Hematology/Oncology Treatment, [address] [address] [facility], Chair1 Hem Onc [address] [place] [address] 09/09/2023 1:00 PM EDT Office Visit Palliative Medicine, [address] 5th [place] [address] Tessa Rubio, PA-C [address] [place] [address] 09/11/2023 9:00 AM EDT Nurse Only Hematology Oncology [facility], [address] [address] [place], Nurse Lab Hem/Onc [address] [place] [address] 09/11/2023 10:00 AM EDT Hem/Onc Treatment Hematology Oncology [facility], [address] [address] [place], Chair 19 Hem/Onc [address] [place] [address] 09/11/2023 2:00 PM EDT Appointment Radiology, [place] [address] [place] [address] 09/14/2023 7:00 AM EDT Laboratory Laboratory, [address] [address] [facility], Lab [address] [place] [address] 09/14/2023 8:00 AM EDT Immunization/Injection Hematology/Oncology Treatment, [address] [address] [facility], Chair1 Hem Onc [address] [place] [address] 09/18/2023 10:00 AM EDT Laboratory Laboratory, [address] [phone] [facility], Lab [address] [place] [address] 09/18/2023 11:00 AM EDT Telemedicine Hematology/Oncology, [address] [address] Mike Chaudhary MD [address] [place] [address] Cart, Telemed [facility] Hem Onc Clinic [address] [place] [address] 09/25/2023 2:40 PM EDT Office Visit Rheumatology [place] [address] [facility] [place] [address] Oliver Zhang MD [address] [place] [employer] [place] [id number] 02/19/2024 12:00 PM EST Office Visit [facility] [address], [place] [address] [place] [address] Kayla Reeder DO [address] [place] [address] Scheduled Orders Name Type Priority Associated Diagnoses Orde r Schedule CBC WITH WBC DIFFERENTIAL Lab STAT 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) Every Mon, Wed, Fri for 52 Occurrences starting 08/27/2023 until 08/26/2024 TYPE AND SCREEN Lab STAT 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) Every Mon, Wed, Fri for 52 Occurrences starting 08/27/2023 until 09/26/2024 ABO/RH Lab STAT 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) Expected: 08/27/2023 (Approximate), Expires: 09/26/2024 Health Maintenance Due Date Last Done Comments COVID-19 Vaccine (#1) 1993 Influenza Vaccine (FLU shot) (#1) 2023 11/17/2016, 11/17/2016, 11/30/2015, Additional history exists Depression Screening 07/07/2024 07/08/2023, 06/11/19 24 Albumin/Creatinine Ratio Discontinued 08/02/2021 documented as of this encounter Medical Devices Implanted Type Area Hot Kettle Tender Device Identifier Shelf Expiration Date Model / Serial / Lot Mediport Pwr Mri 8fr [id number] - [id number] Implanted:Qty : 1 on 07/17/2023 by Medhat Angel MD at OR [facility] Right: Chest CR BARD : PERIPHERAL VASCULAR 07/16/2024 [id number] / / [id number] Port Implant W8f Poly Cath - [id number] Implanted:Qty : 1 on 07/17/2023 by Medhat Angel MD at OR [facility] CR BARD : PERIPHERAL VASCULAR [id number] 07/16/2024 [id number] / / [id number] documented as of this encounter Visit Diagnoses [...] Healthcare Agent Relationshi p Communication Trixie Le [facility] Repr esentative (appointed verbally by patient or by statute hierarchy) [email or web address] Care Teams Supervisor Dehydrogenation Relationship Specialty Start Date End Date Kayla Reeder DO [address] [facility] [place] [address] PCP - General Family Medicine 06/11/23 documented as of this encounter
--- OUTSIDE RECORDS SUMMARY | 2023-09-18 21:20 | External Medical Summary | Summary of Care ---
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 [place] [address] Referral ID Status Reason Start Date Expiration Date V isits Requested Visits Authorized [id number] Authorized 07/23/2023 01/22/2024 999 999 Encounter Details Date Type Department Care Team (Latest Contact Info) Description 07/27/2023 10:00 AM EDT Hem/Onc Treatment Hematology/Oncolog y Treatment, [facility] [place] [phone] [facility], Chair2 Hem Onc [address] [place] [place] [address] Encounter for antineoplastic chemotherapy*; Burkitt lymphoma of [...] Mendez, RN - 07/27/2023 10:21 AM EDT [place] 10 Chemotherapy/Immunotherapy agents: Rituximab, Cyclyophosamide, Doxorubicin, Vincristine, [...] Voiced no complaints. Gabriella Mendez RN 07/27/2023 [facility] Nursing Care Plan ID is not set. [...] Team (Late st Contact Info) Description 08/27/2023 10:30 AM EDT Laboratory Laboratory, [address] [phone] [facility], Lab [address] [place] [address] [place] [address] 08/27/2023 11:30 AM EDT Office Visit Hematology/Oncology, [address] [address] Lakeshia Stone CRNP [facility] [address] 08/31/2023 10:00 AM EDT Laboratory Laboratory [facility] [place] [address] [place] [phone] [place], Lab [facility] [address] [facility] [place]NST [place] [address] 09/04/2023 10:00 AM EDT Laboratory Laboratory, [address] [phone] [facility], Lab [address] [place], [place] [address]ERN[address] 09/04/2023 11:00 AM EDT Telemedicine Hematology/Oncology, [address] [address] Mike Chaudhary MD [address] [place] [address] [facility] Hem Onc Clinic [address] [place] [address] 09/07/2023 7:15 AM EDT Nurse Only Hematology Oncology [facility], [address] [address] [place], Nurse Lab Hem/Onc [address] [place] [address] 09/07/2023 8:00 AM EDT Hem/Onc Treatment Hematology Oncology [facility], [address] [address] [place], Chair 19 Hem/Onc [address] [place] [address] 09/07/2023 2:00 PM EDT Appointment Radiology, [address] [phone] 09/09/2023 11:00 AM EDT Hem/Onc Treatment Hematology/Oncology Treatment, [address] [address] [facility], Chair1 Hem Onc [address] [place] [address] 09/09/2023 1:00 PM EDT Office Visit Palliative Medicine, [address] 5th [place] [address] Tessa Rubio PACatieC [address] [place] [address] 09/11/2023 9:00 AM EDT Nurse Only Hematology Oncology [facility], [address] [address] [place], Nurse Lab Hem/Onc [facility] [place] [address] 09/11/2023 10:00 AM EDT Hem/Onc Treatment Hematology Oncology [facility], [address] [address] [place], Chair 19 Hem/Onc [address] [place] [address] 09/11/2023 2:00 PM EDT Appointment Radiology, [address] [phone] 09/14/2023 7:00 AM EDT Laboratory Laboratory, [address] [phone] [facility], Lab [address] [place] [address] 09/14/2023 8:00 AM EDT Immunization/Injection Hematology/Oncology Treatment, [address] [address] [facility], Chair1 Hem Onc [address] [place] [address] 09/18/2023 10:00 AM EDT Laboratory Laboratory, [address] [address] [facility], Lab [address] [place] [address] 09/18/2023 11:00 AM EDT Telemedicine Hematology/Oncology, [address] [address] Mike Chaudhary MD [facility] [place] [address] Cart, Telemed [facility] Hem Onc Clinic [address] [place] ER[place]ST [place] [address] 09/25/2023 2:40 PM EDT Office Visit Rheumatology [facility] [address] [facility] [place], ERNST [address] Oliver Zhang MD [address] [place], ERNST [address] 02/19/2024 12:00 PM EST Office Visit Family Practice [address], [place] [address] [place] [address] Kayla Reeder DO [address] [place]ST [place] [address] Scheduled Orders Name Type Priority Associated Diagnoses [...] this encounter Medical Devices Implanted Type Area Layaway Clerk Device Identifier Shelf Expiration Date Model / Serial / Lot Mediport Pwr Mri 8fr [id number] - [id number] Implanted:Qty : 1 on 07/17/2023 by Medhat Angel MD at OR [facility] Right: Chest CR BARD : PERIPHERAL VASCULAR 07/16/2024 [id number] / / [id number] Port Implant W8f Poly Cath - [id number] Implanted:Qty : 1 on 07/17/2023 by Medhat Angel MD at OR [facility] CR BARD : PERIPHERAL VASCULAR [id number] 07/16/2024 [id number] / / [id number] documented as of this encounter Visit Diagnoses [...] sulfate 1.9 mg, DOXOrubicin (Adriamycin) 48 mg [facility] 48 HOUR infusion Intravenous, [...] [facility] Communication Trixie [facility] Repr esentative (appointed verbally by patient or by statute hierarchy) [email or web address] Care Teams Private Sector Executive Relationship Specialty Start Date End Date Kayla Reeder DO [address] [facility] ERNST [place] [address] PCP - General Family Medicine 06/11/23 documented as of this encounter
--- OUTSIDE RECORDS SUMMARY | 2023-09-18 21:20 | External Medical Summary | Summary of Care ---
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 [place] [address] Referral ID Status Reason Start Date Expiration Date V isits Requested Visits Authorized [id number] Authorized 07/23/2023 01/22/2024 999 999 Encounter Details Date Type Department Care Team (Latest Contact Info) Description 07/27/2023 10:00 AM EDT Hem/Onc Treatment Hematology/Oncolog y Treatment, [facility] [place] [phone] [facility], Chair2 Hem Onc [address] [place] [address] Encounter for antineoplastic chemotherapy*; Burkitt lymphoma of [...] Mendez, RN - 07/27/2023 10:21 AM EDT [place] 10 Chemotherapy/Immunotherapy agents: Rituximab, Cyclyophosamide, Doxorubicin, Vincristine, [...] Voiced no complaints. Gabriella Mendez RN 07/27/2023 [facility] Nursing Care Plan ID is not set. [...] Description 08/31/2023 10:00 AM EDT Laboratory Laboratory [facility] [place] [address] [place] [phone] [place], Lab [facility] [address] [place] [address] 09/04/2023 10:00 AM EDT Laboratory Laboratory, [address] [phone] [facility], Lab [address] [place] [address] 09/04/2023 11:00 AM EDT Telemedicine Hematology/Oncology, [address] [address] Mike Chaudhary MD [address] [place] [address] Cart, Telemed [facility] Hem Onc Clinic [address] [place] [address] 09/07/2023 7:15 AM EDT Nurse Only Hematology Oncology [facility] [address] [place] [address] [place], Nurse Lab Hem/Onc [address] [place] [address] 09/07/2023 8:00 AM EDT Hem/Onc Treatment Hematology Oncology [facility], [address] [address] [place], Chair 19 Hem/Onc [address] [place] [address] 09/07/2023 2:00 PM EDT Appointment Radiology, [address] [phone] 09/09/2023 11:00 AM EDT Hem/Onc Treatment Hematology/Oncology Treatment, [address] [address] [facility], Chair1 Hem Onc [address] [place] [address] 09/09/2023 1:00 PM EDT Office Visit Palliative Medicine, [address] 5th [place] [address] Tessa Rubio PACatieC [address] [place] [address] 09/11/2023 9:00 AM EDT Nurse Only Hematology Oncology [facility], [address] [address] [place], Nurse Lab Hem/Onc [address] [place] [address] 09/11/2023 10:00 AM EDT Hem/Onc Treatment Hematology Oncology [facility], [address] [address] [place], Chair 19 Hem/Onc [address] [place] [address] 09/11/2023 2:00 PM EDT Appointment Radiology, [address] [phone] 09/14/2023 7:00 AM EDT Laboratory Laboratory, [facility] [phone] [facility], Lab [address] [place] [phone] 09/14/2023 8:00 AM EDT Immunization/Injection Hematology/Oncology Treatment, [address] [phone] [facility], Chair1 Hem Onc [address] [place] [address] 355[address] 09/18/2023 10:00 AM EDT Laboratory Laboratory, [address] [phone] [facility], Lab [address] [place] [address] 09/18/2023 11:00 AM EDT Telemedicine Hematology/Oncology, [address] [address] Mike Chaudhary MD [address] [place], [place] [phone] Cart, Telemed [facility] Hem Onc Clinic [address] [place] [address] 09/25/2023 2:40 PM EDT Office Visit Rheumatology [place] [phone] [facility] [place] [address] Oliver Zhang MD [facility]0 [place] [address] 02/19/2024 12:00 PM EST Office Visit Counts Include [address] [facility] [place] Garcia [address] [place] ER[place]ST [place] [address] Kayla Reeder DO [address] [place] [address] Scheduled Orders Name Type Priority Associated Diagnoses [...] this encounter Medical Devices Implanted Type Area Environmental Services Manager Device Identifier Shelf Expiration Date Model / Serial / Lot Mediport Pwr Mri 8fr [id number] - [id number] Implanted:Qty : 1 on 07/17/2023 by Medhat Angel MD at OR [facility] Right: Chest CR BARD : PERIPHERAL VASCULAR 07/16/2024 [id number] / / [id number] Port Implant W8f Poly Cath - [id number] Implanted:Qty : 1 on 07/17/2023 by Medhat Angel MD at OR [facility] CR BARD : PERIPHERAL VASCULAR [id number] 07/16/2024 [id number] / / [id number] documented as of this encounter Visit Diagnoses [...] sulfate 1.9 mg, DOXOrubicin (Adriamycin) [address] [facility] INF[facility] 48 HOUR infusion Intravenous, [...] Healthcare Agent Relationshi p Communication Trixie Le [facility] Repr esentative (appointed verbally by patient or by statute hierarchy) [email or web address] Care Teams Brickmason Supervisor Relationship Specialty Start Date End Date Kayla Reeder DO [address] [facility] ERNST [place] [address] PCP - General Family Medicine 06/11/23 documented as of this encounter
--- OUTSIDE RECORDS SUMMARY | 2023-09-18 21:20 | External Medical Summary | Summary of Care ---
Author Name Unknown Organization [facility] Address [address] [place] [address] Phone [phone] Care Team Providers Care Wrapper Cashier Name Role Phone Reeder Kayla Clarke DO Primary Care Provider +1- [phone] Reason for Visit * Reason Comments Outpatient Testing Encounter Details Date Type Department Care Team ([facility] st Contact Info) Description 08/27/2023 10:30 AM EDT Laboratory Laboratory, [facility] [address] [place] [phone] [facility], Lab [address] [place] [address] Burkitt lymphoma of intra-abdominal lymph [...] Team (Late st Contact Info) Description 08/27/2023 11:30 AM EDT Office Visit Hematology/Oncology, [facility] 400 [place] [address] Lakeshia Stone CRNP 400 [place] [address] Arrived 08/31/2023 10:00 AM EDT Laboratory Laboratory [address] [place] [address] ER[place]ST [place] [phone] [place] [address] [place] [address] ER[place]ST [place] [address] 09/04/2023 10:00 AM EDT Laboratory Laboratory [address] [phone] [facility], Lab [address] [place] [address] 09/04/2023 11:00 AM EDT Telemedicine Hematology/Oncology, [address] [address] Mike Chaudhary MD [facility] [place] [address] [place], Telemed [facility] Hem Onc Clinic [address] [place] [address] 09/07/2023 7:15 AM EDT Nurse Only Hematology Oncology [address] [address] [place], Nurse Lab Hem/Onc [address] [place] [address] 09/07/2023 8:00 AM EDT Hem/Onc Treatment Hematology Oncology [address] [address] [place], Chair 19 Hem/Onc [address] [place] [address] 09/07/2023 2:00 PM EDT Appointment Radiology, [address] [phone] 09/09/2023 11:00 AM EDT Hem/Onc Treatment Hematology/Oncology Treatment, [address] [address] [facility], Chair1 Hem Onc [address] [place] [address] 09/09/2023 1:00 PM EDT Office Visit Palliative Medicine, [address] [place] [address] Tessa Rubio [facility]ik [address] [place] [address] 09/11/2023 9:00 AM EDT Nurse Only Hematology Oncology [facility], [address] [address] [place], Nurse Lab Hem/Onc [address] [place] [address] 09/11/2023 10:00 AM EDT Hem/Onc Treatment Hematology Oncology [facility], [address] [address] [place], Chair 19 Hem/Onc [address] [place] [address] 09/11/2023 2:00 PM EDT Appointment Radiology, [address] [address] 09/14/2023 7:00 AM EDT Laboratory Laboratory, [address] [phone] [facility], Lab [address] [place] [address] 09/14/2023 8:00 AM EDT Immunization/Injection Hematology/Oncology Treatment, [address] [address] [facility], Chair1 Hem Onc [address] [place] [address] 09/18/2023 10:00 AM EDT Laboratory Laboratory, [address] [phone] [facility], Lab [address] [place] [address] 09/18/2023 11:00 AM EDT Telemedicine Hematology/Oncology, [facility] [address] [place] [address] Mike Chaudhary MD [address] [place] [address] Cart, Telemed [facility] Hem Onc Clinic [address] [place], [place] [phone] 09/25/2023 2:40 PM EDT Office Visit Rheumatology [place] [address] [place] [address] Oliver Zhang MD [facility]0 [facility] [place] [address] 02/19/2024 12:00 PM EST Office Visit Family Practice [address], [place] [address] [facility] ERNST [place] [address] Kayla Reeder DO [address] [facility] ERNST [place] [address] Pending Results Name Type Priority Associated Diagnoses Date /Time CBC WITH WBC DIFFERENTIAL Lab STAT 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) 08/27/2023 10:22 AM EDT COMPREHENSIVE METABOLIC PANEL Lab STAT 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) 08/27/2023 10:22 AM EDT URIC ACID Lab STAT 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) 08/27/2023 10:22 AM EDT LD Lab STAT 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) 08/27/2023 10:22 AM EDT CBC Lab STAT 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) 08/27/2023 10:22 AM EDT DIFFERENTIAL, AUTOMATED Lab STAT 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) 08/27/2023 10:22 AM EDT Health Maintenance Due Date Last Done Comments COVID-19 Vaccine (#1) 1993 Influenza Vaccine (FLU shot) (#1) 2023 11/17/2016, 11/17/2016, 11/30/2015, Additional history exists Depression Screening 07/07/2024 07/08/2023, 06/11/19 24 Albumin/Creatinine Ratio Discontinued 08/02/2021 documented as of this encounter Medical Devices Implanted Type Area Cook Tortilla Device Identifier Shelf Expiration Date Model / Serial / Lot Mediport Pwr Mri 8fr [id number] - [id number] Implanted:Qty : 1 on 07/17/2023 by Medhat Angel MD at OR [facility] Right: Chest CR BARD : PERIPHERAL VASCULAR 07/16/2024 [id number] / / [id number] Port Implant W8f Poly Cath - [id number] Implanted:Qty : 1 on 07/17/2023 by Medhat Angel MD at OR [facility] CR BARD : PERIPHERAL VASCULAR [id number] 07/16/2024 [id number] / / [id number] documented as of this encounter Visit Diagnoses [...] Agents on File Name Relationship Healthcare Agent [facility] p Communication Trixie Le Mck[facility] Repr esentative (appointed verbally by patient or by statute hierarchy) [email or web address] Experience Care Teams Wrapper Cashier Relationship Specialty Start Date End Date Kayla Reeder DO [address] [facility] ERNST [place] [address] PCP - General Family Medicine 06/11/23 documented as of this encounter
--- OUTSIDE RECORDS SUMMARY | 2023-09-18 21:20 | External Medical Summary ---
Author Name Unknown Address Unknown Organization K[facility] [address] [facility] [place] [address] Laboratory Report Ordering Provider Test Date Status MATTI BARAJAS 08/27/2023 10:22:43 Final Observation Date Value Abnormality Reference (Units ) Status BUN 08/27/2023 10:22:43 16 6-20 (mg/dL) Final Creatinine 08/27/2023 10:22:43 0.8 0.6-1.2 (mg/dL) Final Glomerular filtration rate/1.73 sq M.predicted [Volume Rate/Area] in Serum, Plasma or Blood by Creatinine-based formula (CKD-EPI) 08/27/2023 10:22:43 >90 >=60 (mL/min) Final eGFR is calculated based on the CKD-EPI 2020 equation Sodium 08/27/2023 10:22:43 140 135-146 (m mol/L) Final Potassium 08/27/2023 10:22:43 4.1 3.5-5.1 (m mol/L) Final Cl 08/27/2023 10:22:43 106 98-107 (mm ol/L) Final CO2 08/27/2023 10:22:43 25 22-32 (mmo l/L) Final Anion gap 08/27/2023 10:22:43 9 7-15 (mmol /L) Final Glucose 08/27/2023 10:22:43 128 Above high normal 70 -120 (mg/dL) Final Albumin 08/27/2023 10:22:43 4.1 3.8-5.0 (g /dL) Final AST (Aspartate aminotransferase) 08/27/2023 10:22:43 12 10-50 (U/L) Fin al Results may be falsely eleva ketan due to hemolysis. Alk Phos 08/27/2023 10:22:43 71 35-130 (U/ L) Final Bilirubin, Total 08/27/2023 10:22:43 0.6 <=1 .2 (mg/dL) Final Calcium 08/27/2023 10:22:43 9.4 8.4-10.2 ( mg/dL) Final Protein 08/27/2023 10:22:43 6.4 6.0-8.3 (g /dL) Final ALT (Alanine aminotransferase) 08/27/2023 10:22:43 24 10-50 (U/L) Final Performing Location LABORATORY [facility] - [facility] Faby Rydertowsnehal [place] [address]
--- OUTSIDE RECORDS SUMMARY | 2023-09-18 21:20 | External Medical Summary ---
Author Name Unknown Address Unknown Organization K1F:LAB[facility]ATORY [facility] - [address] [place] [address] Laboratory Report Ordering Provider Test Date Status TYE BARAJASMAIKEL 08/27/2023 10:22:43 Final Observation Date Value Abnormality Reference (Units ) Status Uric Acid 08/27/2023 10:22:43 5.3 3.4-7.0 (m g/dL) Final Performing Location [facility] - [address] [place] [address]
--- OUTSIDE RECORDS SUMMARY | 2023-09-18 21:21 | External Medical Summary | Summary of Care ---
Author Name Unknown Organization [facility] Address [address] [place] [address] Phone [phone] Care Team Providers Care Sleep Technologist Name Role Phone Kayla Reeder DO Primary Care Provider +1- [phone] Reason for Visit * Reason Comments eRx-Medication Refill Encounter Details Date Type Department Care Team ([facility] st Contact Info) Description 08/22/2023 Refill Hematology/Oncology, [facility] [address] [place] [address] Lakeshia Stone CRNP [address] [place] [address] Hypokalemia Allergies No known active allergiesdocumented as of this encounter (statuses as of 08/24/2023) Medications Medication Sig Dispensed Refills Start Date [...] FOR 14 DAYS 56 Tablet 08/24/2023 Active documented as of this encounter (statuses as of 08/24/2023) Active Problems Problem Noted Date Diagnosed Date [...] as of this encounter (statuses as of 08/24/2023) Resolved Problems Problem Noted Date Diagnosed Date [...] as of this encounter (statuses as of 08/24/2023) Immunizations Name Administration Dates Next Due DT [...] No 07/08/2023 Does the household have a [facility] source of income? (Household - for ages [...] encounter Miscellaneous Notes * Telephone Encounter - Jenn Chino MD - 08/24/2023 11:56 AM EDT Signed Prescriptions: Disp Refills Potassium Chloride [facility] 10 MEQ Oral Tab*56 Tab*0 Sig: TAKE TWO TABLETS BY MOUTH EVERY MORNING AND TWO TABLETS BEFORE BEDTIME. DO ALL THIS FOR 14 DAYS Authorizing Provider: JENN CHINO * Telephone Encounter - Mayra Sánchez LPN - 08/24/2023 7:47 AM EDTPending Prescriptions: Disp Refills Potassium Chloride [facility] ER 10 MEQ Oral Tab*56 Tab*0 Sig: TAKE TWO TABLETS BY MOUTH EVERY MORNING AND TWO TABLETS BEFORE BEDTIME. DO ALL THIS FOR 14 DAYS * Telephone Encounter - Jet Caraballo MD - 08/24/2023 7:29 AM EDTPending Prescriptions: Disp Refills Potassium Chloride [facility] ER 10 MEQ Oral Tab*56 Tab*0 Sig: TAKE TWO TABLETS BY MOUTH EVERY MORNING AND TWO TABLETS BEFORE BEDTIME. DO ALL THIS FOR 14 DAYS * Telephone Encounter - Mahsa Pascual CPhT - 08/22/2023 11:16 AM EDT Did you pend patient's preferred pharmacy and medication before forwarding?yes Pharmacy: [facility] [address] [facility] [place] Pending Prescriptions: Disp Refills Potassium Chloride [facility] ER 10 MEQ Oral Ta*56 Tab*0 Sig: TAKE TWO TABLETS BY MOUTH EVERY MORNING AND TWO TABLETS BEFORE BEDTIME. DO ALL THIS FOR 14 DAYS Last Visit: 08/11/2023 (in office), 08/14/2023 (telemedicine) Next Visit: 08/27/2023 If no future appointments scheduled, and last appointment is greater than a year ago, please schedule patient for a follow-up appointment Last date the medication was ordered: 07/24/2023 Is this request for a controlled substance?No [...] Labs: Lab Results Component Value Date/Time CREAT 0.6 08/21/2023 09:11 AM CREAT 0.90 08/06/2023 12:00 AM CREAT 1.1 11/11/2019 01:50 PM POTASSIUM 3.2 (L) 08/21/2023 09:11 AM POTASSIUM 2.9 (A) 08/06/2023 12:00 AM POTASSIUM 4.8 11/11/2019 01:50 PM TSH 3.86 04/22/2022 10:37 AM TSH 1.01 11/11/2019 01:50 PM LDLCALC 131 (H) 08/02/2021 08:53 AM LDLCALC 117 11/11/2019 01:50 PM LDLDIRECT NOT APPLICABLE 11/11/2019 01:50 PM ALT 46 08/21/2023 09:11 AM ALT 26 11/11/2019 01:50 PM HGBA1C 5.9 (H) 08/02/2021 08:53 AM HGBA1C 5.8 (H) 11/11/2019 01:50 PM documented in this encounter Plan of Treatment Upcoming Encounters Date Type Department Care Team (Late st Contact Info) Description 08/27/2023 10:30 AM EDT Laboratory Laboratory, [facility] [address] [place] [phone] [facility], Lab [address] [place] [address] 08/27/2023 11:30 AM EDT Office Visit Hematology/Oncology, [facility] [address] [place] [address] Lakeshia Stone CRNP [address] [place] [address] 08/31/2023 10:00 AM EDT Laboratory Laboratory [address], [place] [address] [place] [phone] [place], Lab [address] [place] [address] 09/04/2023 10:00 AM EDT Laboratory Laboratory, [address] [phone] [facility], Lab [address] [place] [address] 09/04/2023 11:00 AM EDT Telemedicine Hematology/Oncology, [address] [address] Jenn Chino MD [facility] [place] [address] [place], Telemed [facility] [address] [place] [address] 09/07/2023 7:15 AM EDT Nurse Only Hematology Oncology [address] [address] [place], Nurse Lab Hem/Onc [address] [place] [address] 09/07/2023 8:00 AM EDT Hem/Onc Treatment Hematology Oncology [place] [address] [place] [address] [place], Chair 19 Hem/Onc [facility] [place] [address] 09/07/2023 2:00 PM EDT Appointment Radiology, [address] [address] 09/09/2023 11:00 AM EDT Hem/Onc Treatment Hematology/Oncology Treatment, [address] [address] [facility], Chair1 Hem Onc [address] [place] [address] 09/09/2023 1:00 PM EDT Office Visit Palliative Medicine, [address] [place] [address] Aury Silva MD [address] [place] [address] 09/11/2023 9:00 AM EDT Nurse Only Hematology Oncology [facility], [address] [address] [place], Nurse Lab Hem/Onc [address] [place] [address] 09/11/2023 10:00 AM EDT Hem/Onc Treatment Hematology Oncology [facility], [address] [address] [place], Chair 19 Hem/Onc [address] [place] [address] 09/11/2023 2:00 PM EDT Appointment Radiology, [address] [address] 09/14/2023 7:00 AM EDT Laboratory Laboratory, [address] [phone] [facility], Lab [address] [place] [address] 09/14/2023 8:00 AM EDT Immunization/Injection Hematology/Oncology Treatment, [address] [address] [facility], Chair1 Hem Onc [address] [place] [address] 09/18/2023 10:00 AM EDT Laboratory Laboratory, [address] [phone] [facility], Lab [address] [place] [address] 09/18/2023 11:00 AM EDT Telemedicine Hematology/Oncology, [address] [address] Jenn Chino MD [address] [place] [address] [place], Telemed [facility] [address] [place] [address] 09/25/2023 2:40 PM EDT Office Visit Rheumatology [address] [place] [address] Oliver Zhang MD [address] [place] [address] 02/19/2024 12:00 PM EST Office Visit Family Practice [address], [place] [address] [place] [address] Kayla Reeder DO [address] [place] [address] Health Maintenance Due Date Last Done Comments COVID-19 Vaccine (#1) 1993 Influenza Vaccine (FLU shot) (#1) 2023 11/17/2016, 11/17/2016, 11/30/2015, Additional history exists Depression Screening 07/07/2024 07/08/2023, 06/11/19 24 Albumin/Creatinine Ratio Discontinued 08/02/2021 documented as of this encounter Medical Devices Implanted Type Area Cloth Shrinking Supervisor Device Identifier Shelf Expiration Date Model / Serial / Lot Mediport Pwr Mri 8fr [id number] - [id number] Implanted:Qty : 1 on 07/17/2023 by Medhat Angel MD at OR [facility] Right: Chest CR BARD : PERIPHERAL VASCULAR 07/16/2024 [id number] / / [id number] Port Implant W8f Poly Cath - [id number] Implanted:Qty : 1 on 07/17/2023 by Medhat Angel MD at OR [facility] CR BARD : PERIPHERAL VASCULAR [id number] 07/16/2024 [id number] / / [id number] documented as of this encounter Visit Diagnoses [...] Agents on File Name Relationship Healthcare Agent [facility] p Communication Trixie Le [facility] Repr esentative (appointed verbally by patient or by statute hierarchy) [email or web address] Management [email or web address] Care Teams Sleep Technologist Relationship Specialty Start Date End Date Kayla Reedre DO [address] [facility] [place] [place] [address] PCP - General Family Medicine 06/11/23 documented as of this encounter
--- OUTSIDE RECORDS SUMMARY | 2023-09-18 21:21 | External Medical Summary | Summary of Care ---
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 [address] [facility] [place] [address] Referral ID Status Reason Start Date Expiration Date V isits Requested Visits Authorized [id number] Authorized 07/23/2023 01/22/2024 999 [id number] Encounter Details Date Type Department Care Team (Latest Contact Info) Description 07/31/2023 1:30 PM EDT Hem/Onc Treatment Hematology/Oncolog y Treatment, [facility] [address] [facility] [place] [address] 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 75 Tablet 5 07/27/2023 Active HYDROmorphone HCl 2 MG Oral Tablet [...] 56 Tablet 07/24/2023 08/22/19 24 Discontinu ed(Refill) Hospital, Clinic, or Other Facility Administered Medication Ordered Dose Route Frequency Start Date End Date Status etoposide (VEPESID) 240 mg, vinCRIStine sulfate 1.91 mg, DOXOrubicin (Adriamycin) 48 mg in NSS 1,500 mL infusion IV CONTINUOUS 07/28/2023 07/30/2023 Discontinued documented as of this encounter (statuses as of 08/26/2023) Active Problems Problem Noted Date Diagnosed Date [...] as of this encounter (statuses as of 08/26/2023) Resolved Problems Problem Noted Date Diagnosed Date [...] as of this encounter (statuses as of 08/26/2023) Immunizations Name Administration Dates Next Due DT [...] No 07/08/2023 Does the household have a [facility] source of income? (Household - for [...] Sign Reading Time Taken Comments Blood Pressure 116/74 07/31/2023 1:15 PM EDT Pulse 84 07/31/2023 1:15 PM EDT Temperature 36.3 C (97.3 F) 07/31/2023 1:15 PM ED T Respiratory Rate 20 07/31/2023 1:15 PM EDT Oxygen Saturation - - Inhaled Oxygen Concentration - - Weight 115 kg (253 lb 8 oz) 07/31/2023 1:15 PM E DT Height - - Body Mass Index 35.36 07/22/2023 9:20 AM EDT documented in this [...] as of this encounter Nursing Notes * Ruola Ramirez, RN - 07/31/2023 4:10 PM EDT Patient left IVC by ambulating. Unaccompanied. Voiced no complaints. Roula Ramirez RN 07/31/2023 4:10 PM * Marilee aSmuel RN - 07/31/2023 1:19 PM EDT Chair # 8 Chemotherapy/Immunotherapy agents: Cytoxan Consent for chemotherapy drug treatment complete, dated, and signed? yes, date - 07/01/2023 Treatment lab parameters met? Yes Has treatment weight changed > than 10%? No Treatment preauthorized? Yes VITALS Filed Vitals: 07/31/23 1315 BP: 116/74 Pulse: 84 Resp: 20 Temp: 36.3 C (97.3 F) Weight: 115 kg (253 lb 8 oz) Urine protein: N/A Patient education completed for treatment? Yes Blood transfusion consent signed and complete? NA Return appointment scheduled? Yes Patient had provider visit today? No - If no provider visit must complete Pretreatment Assessment Functional Status: Functional status at today's visit: [...] symptoms or adverse side effects during treatment. [facility] Care Plan ID is not set. 07/31/2023 Safety and Risk for Injury Patient will remain free from injury. Assess patient's risk for falls per policy. Encourage activity as ordered per policy. Ensure appropriate safety devices are available. Implement fall prevention plan of care per policy. Include patient and caregiver in decisions related to safety. Perform safety rounds per policy. Provide and maintain safe environment. Marilee Samuel RN Appetite-good Nausea/Vomiting -denies Diarrhea -denies Constipation -denies Mucositis -denies Fatigue -yes Bleeding -denies Infection -denies Rash -denies Numbness tingling -denies Pain -denies Radiation N/A ABN Labs all labs WNL Alt in Tx: -none Return in 3 days for [employer] documented in this encounter Plan of Treatment Upcoming Encounters Date Type Department Care Team (Late st Contact Info) Description 08/27/2023 10:30 AM EDT Laboratory Laboratory, [facility] [address] [place] [address] [facility], Lab [address] [place] [address] 08/27/2023 11:30 AM EDT Office Visit Hematology/Oncology, [facility] [address] [facility] [place] [address] Lakeshia Stone CRNP [address] [facility] [place] [address] 08/31/2023 10:00 AM EDT Laboratory Laboratory [place] [address] [place] [address] [place], Lab [facility] [address] [facility] [place] [address] 09/04/2023 10:00 AM EDT Laboratory Laboratory, [address] [address] [facility], Lab [address] [place] [address] 09/04/2023 11:00 AM EDT Telemedicine Hematology/Oncology, [address] [address] Mike Chaudhary MD [facility] [place] [address] Cart, Telemed [facility] Hem Onc Clinic [address] [place] [address] 09/07/2023 7:15 AM EDT Nurse Only Hematology Oncology [address] [address] [place], Nurse Lab Hem/Onc [address] [place] [address] 09/07/2023 8:00 AM EDT Hem/Onc Treatment Hematology Oncology [address] [address] [place], Chair 19 Hem/Onc [address] [place] [address] 09/07/2023 2:00 PM EDT Appointment Radiology, [address] [phone] 09/09/2023 11:00 AM EDT Hem/Onc Treatment Hematology/Oncology Treatment, [address] [place] [address] [facility], Chair1 Hem Onc [address] [place] [address] 09/09/2023 1:00 PM EDT Office Visit Palliative Medicine, [address] [address] Tessa Rubio PA-C [address] [place] [address] 09/11/2023 9:00 AM EDT Nurse Only Hematology Oncology [facility], [address] [address] [place], Nurse Lab Hem/Onc [address] [place] [address] 09/11/2023 10:00 AM EDT Hem/Onc Treatment Hematology Oncology [facility], [address] [address] [place], Chair 19 Hem/Onc [address] [place] [address] 09/11/2023 2:00 PM EDT Appointment Radiology, [address] [phone] 09/14/2023 7:00 AM EDT Laboratory Laboratory, [address] [address] [facility], Lab [address] [place] [address] 09/14/2023 8:00 AM EDT Immunization/Injection Hematology/Oncology Treatment, [address] [address] [facility], Chair1 Hem Onc [address] [place] [address] 09/18/2023 10:00 AM EDT Laboratory Laboratory, [address] [phone] [facility], Lab [address] [place] [address] 09/18/2023 11:00 AM EDT Telemedicine Hematology/Oncology, [address] [place] [address] Mike Chaudhary MD [address] [place], [place] [phone] Cart, Telemed [facility] Hem Onc Clinic [address] [place] [address] 09/25/2023 2:40 PM EDT Office Visit Rheumatology [address] [place] [address] Oliver Zhang MD [address] [place] [address], [place] [address] 02/19/2024 12:00 PM EST [facility] [address] [place] [address] Kayla Reeder DO [address] [place] [address] Health Maintenance Due Date Last Done Comments COVID-19 Vaccine (#1) 1993 Influenza Vaccine (FLU shot) (#1) 2023 11/17/2016, 11/17/2016, 11/30/2015, Additional history exists Depression Screening 07/07/2024 07/08/2023, 06/11/19 24 Albumin/Creatinine Ratio Discontinued 08/02/2021 documented as of this encounter Medical Devices Implanted Type Area Green Plumber Device Identifier Shelf Expiration Date Model / Serial / Lot Madiport Pwr Mri 8fr [id number] - [id number] Implanted:Qty : 1 on 07/17/2023 by Medhat Angel MD at OR [facility] Right: Chest CR BARD : PERIPHERAL VASCULAR 07/16/2024 [id number] / / [id number] Port Implant W8f Poly Cath - [id number] Implanted:Qty : 1 on 07/17/2023 by Medhat Angel MD at OR [facility] CR BARD : PERIPHERAL VASCULAR [id number] 07/16/2024 [id number] / / [id number] documented as of this encounter Visit Diagnoses Diagnosis Encounter for antineoplastic chemotherapy- Primary 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 Start Infusion 07/31/2023 2:16 PM EDT 1,790 mg 1037.9 mL/hr hEParin 100 UNIT/ML Lock Flush inj 500 Units 500 Units (5 mL), IV Lock, PRN Other, IV Flush, Starting on Thu07/31/23 at 1326, Until Thu07/31/23 at 2012, For 24 hours, Do not flush if lock, PICC, or central line not in place; IV infusing or unable to flush. Given 07/31/2023 4:11 PM EDT 500 Units NSS infusion FOR HYDRATION Intravenous, at 500 mL/hr Administer over 2 Hours, ONCE, 1 dose, On Thu07/31/23 at 1400 Start Infusion 07/31/2023 2:05 PM EDT 1,000 mL 500 mL/hr NSS infusion Intravenous, at 50 mL/hr, PRN, Starting on Thu07/31/23 at 1430, Until Thu07/31/23 at 2012, Maintenance line Start Infusion 07/31/2023 2:04 PM EDT 500 mL 50 mL/hr ondansetron (Zofran) tab 8 mg 8 mg, Oral, ONCE, On Thu07/31/23 at 1430, For 1 dose, Give 30 minutes prior to chemotherapy. Given 07/31/2023 2:12 PM EDT 8 mg sodium chloride 0.9 % flush central line 10 mL 10 mL, IV Push, PRN Other, IV Flush, Starting on Thu07/31/23 at 1326, Until Thu07/31/23 at 2012, For 24 hours, Do not flush if lock, PICC, or central line not in place; IV infusing or unable to flush. Given 07/31/2023 4:11 PM EDT 10 mL documented in this [...] Agents on File Name Relationship Healthcare Agent [facility] p Communication Trixie [employer] [facility] Repr esentative (appointed verbally by patient or by statute hierarchy) [email or web address] Care Teams Motor Mechanic Relationship Specialty Start Date End Date Kayla Reeder DO [address] [facility] [place] [address] PCP - General Family Medicine 06/11/23 documented as of this encounter
--- OUTSIDE RECORDS SUMMARY | 2023-09-18 21:21 | External Medical Summary | Summary of Care ---
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) Procedures AR DOXORUBIC HCL 10 MG VL CHEMO AR VINCRISTINE SULFATE 1 MG INJ AR FOSAPREPITANT INJECTION AR ETOPOSIDE 10 MG INJ AR INJECTION, RITUXIMAB-PVVR, BIOSIMILAR, (RUXIENCE), 10 MG AR INJ, NYVEPRIA AR INJ, CYCLOPHOSPHAMIDE, NOS Wilfredo, Elvis Ray MD [address] [facility] [place] [address] Anc Hem/Onc [facility] [address] [facility] [place] [address] Referral ID Status Reason Start Date Expiration Date V isits Requested Visits Authorized [id number] Authorized 07/23/2023 01/22/2024 999 999 Encounter Details Date Type Department Care Team (Latest Contact Info) Description 07/31/2023 1:30 PM EDT Hem/Onc Treatment Hematology/Oncolog y Treatment, [facility] [address] [facility] [place] [address] [facility], Chair2 Hem Onc [address] [place] [address], [place] [address] Encounter for antineoplastic chemotherapy*; Burkitt lymphoma of [...] No 07/08/2023 Does the household have a [facility] source of income? (Household - for [...] of this encounter Nursing Notes * Roula Ramirez, RN - 07/31/2023 4:10 PM EDT Patient left IVC by ambulating. Unaccompanied. Voiced no complaints. Roula Ramirez RN 07/31/2023 4:10 PM * Marilee Samuel RN - 07/31/2023 1:19 PM EDT Chair [...] symptoms or adverse side effects during treatment. [facility] Care Plan ID is not set. 07/31/2023 [...] Description 08/27/2023 10:30 AM EDT Laboratory Laboratory, [facility] 400 [place] [address] [facility], Lab 400 [place] [address] 08/27/2023 11:30 AM EDT Office Visit Hematology/Oncology, [facility] [address] [facility] [place] [address] Lakeshia Stone CRNP [address] [facility] [place] [address] 08/31/2023 10:00 AM EDT Laboratory Laboratory [address] [place] [address] [place], Lab [facility] [address] [facility] [place]ST [place] [address] 09/04/2023 10:00 AM EDT Laboratory Laboratory, [address] [address] [facility], Lab [address] [place] [address] 09/04/2023 11:00 AM EDT Telemedicine Hematology/Oncology, [address] [address] Mike Chaudhary MD [facility] [place] [address] Cart, Telemed [facility] Hem Onc Clinic [address] [place] [address] 09/07/2023 7:15 AM EDT Nurse Only Hematology Oncology [address] [address] [place], Nurse Lab Hem/Onc [address] [place] [address] 09/07/2023 8:00 AM EDT Hem/Onc Treatment Hematology Oncology [address] [address] [place], Chair 19 Hem/Onc [address] [place] [address] 09/07/2023 2:00 PM EDT Appointment Radiology, [address] [phone] 09/09/2023 11:00 AM EDT Hem/Onc Treatment Hematology/Oncology Treatment, [address] [place] [address] [facility], Chair1 Hem Onc [address] [place] [address] 09/09/2023 1:00 PM EDT Office Visit Palliative Medicine, [address] [address] Tessa Rubio PA-C [address] [place] [address] 09/11/2023 9:00 AM EDT Nurse Only Hematology Oncology [facility], [address] [address] [place], Nurse Lab Hem/Onc [address] [place] [address] 09/11/2023 10:00 AM EDT Hem/Onc Treatment Hematology Oncology [facility], [address] [address] [place], Chair 19 Hem/Onc [address] [place] [address] 09/11/2023 2:00 PM EDT Appointment Radiology, [address] [phone] 09/14/2023 7:00 AM EDT Laboratory Laboratory, [address] [address] [facility], Lab [address] [place] [address] 09/14/2023 8:00 AM EDT Immunization/Injection Hematology/Oncology Treatment, [address] [address] [facility], Chair1 Hem Onc [address] [place] [address] 09/18/2023 10:00 AM EDT Laboratory Laboratory, [address] [phone] [facility], Lab [address] [place] [address] 09/18/2023 11:00 AM EDT Telemedicine Hematology/Oncology, [address] [place] [address] Mike Chaudhary MD [address] [place], [place] [address] Cart, Telemed [facility] Hem Onc Clinic [address] [place] [address] 09/25/2023 2:40 PM EDT Office Visit Rheumatology [address] [place] [address] Oilver Zhang MD [address] [place] [address], [place] [address] 02/19/2024 12:00 PM EST [facility] [address] [place] [address] Kayla Reeder DO [address] [place] [address] Health Maintenance Due Date Last Done Comments COVID-19 Vaccine (#1) 1993 Influenza Vaccine (FLU shot) (#1) 2023 11/17/2016, 11/17/2016, 11/30/2015, Additional history exists Depression Screening 07/07/2024 07/08/2023, 06/11/19 24 Albumin/Creatinine Ratio Discontinued 08/02/2021 documented as of this encounter Medical Devices Implanted Type Area Mechanical Specialist Device Identifier Shelf Expiration Date Model / Serial / Lot Madiport Pwr Mri 8fr [id number] - [id number] Implanted:Qty : 1 on 07/17/2023 by Medhat Angel MD at OR [facility] Right: Chest CR BARD : PERIPHERAL VASCULAR 07/16/2024 [id number] / / [id number] Port Implant W8f Poly Cath - [id number] Implanted:Qty : 1 on 07/17/2023 by Medhat Angel MD at OR [facility] CR BARD : PERIPHERAL VASCULAR [id number] 07/16/2024 [id number] / / [id number] documented as of this encounter Visit Diagnoses [...] Agents on File Name Relationship Healthcare Agent [facility] p Communication Trixie [facility] Repr esentative (appointed verbally by patient or by statute hierarchy) [email or web address] Care Teams Utilization Supervisor Relationship Specialty Start Date End Date Kayla Reeder DO [address] [facility] [place] [address] PCP - General Family Medicine 06/11/23 documented as of this encounter
--- OUTSIDE RECORDS SUMMARY | 2023-09-18 21:21 | External Medical Summary | Summary of Care ---
Author Name Unknown Organization [facility] Address [address] [place] [address] Phone [phone] Care Team Providers Care Equities Analyst Name Role Phone Kayla Reeder DO Primary Care Provider +1- [phone] Reason for Visit * Reason Comments Chemotherapy Day#3 chemotherapy b ag change Infusion hydration * Episode Based Medications (Routine) - Authorized [...] OR INJ, NYVEPRIA OR INJ, CYCLOPHOSPHAMIDE, NOS Wilfredo, Elvis Ray MD 400 [facility] [place]ST [place] [address] Anc Hem/Onc [facility] 400 [facility] [place] [address] Referral ID Status Reason Start Date Expiration Date V isits Requested Visits Authorized [id number] Authorized 07/23/2023 01/22/2024 999 999 Encounter Details Date Type Department Care Team (Latest Contact Info) Description 07/29/2023 1:30 PM EDT Hem/Onc Treatment Hematology/Oncolog y Treatment, [facility] [address] [facility] [place] [phone] [facility], Chair4 Hem Onc [address] [place] [address], [place] [address] Encounter for antineoplastic chemotherapy*; Burkitt lymphoma of [...] No 07/08/2023 Does the household have a [facility] source of income? (Household - for ages [...] Sign Reading Time Taken Comments Blood Pressure 139/82 07/29/2023 3:37 PM EDT Pulse 98 07/29/2023 3:37 PM EDT Temperature 36.2 C (97.2 F) 07/29/2023 3:37 PM ED T Respiratory Rate 18 07/29/2023 3:37 PM EDT Oxygen Saturation - - Inhaled Oxygen Concentration - - Weight 115.7 kg (255 lb 1.6 oz) 07/29/2023 1:23 PM EDT Height - - Body Mass Index 35.58 07/22/2023 9:20 AM EDT documented in this [...] as of this encounter Nursing Notes * Lindsay Kendall RN - 07/29/2023 3:46 PM EDT Pt tolerated hydration without reported difficulty. Vss. Patient left IVC by ambulating. Accompanied by Family. Voiced no complaints. Lindsay Kendall RN 07/29/2023 3:46 PM * Lindsay Kendall RN - 07/29/2023 3:27 PM EDT [facility] Nursing Care Plan ID is not set. 07/29/2023 Safety and Risk for Injury Patient will remain free from injury. Assess patient's risk for falls per policy. Encourage activity as ordered per policy. Ensure appropriate safety devices are available. Implement fall prevention plan of care per policy. Include patient and caregiver in decisions related to safety. Perform safety rounds per policy. Provide and maintain safe environment. Use appropriate transfer methods. Goals: pt will not fall while in iv clinic Possible barriers to meeting goals: iv pole Stability of the patient: Moderately stable - low risk of patient condition declining or worsening Summary regarding today's goals: Met: pt did not fall while in iv clinic Lindsay Kendall RN * Lindsay Kendall RN - 07/29/2023 2:24 PM EDT Pt in bay#9 present for chemotherapy change of intravenous infusion Chemotherapy/Immunotherapy agents: R-EPOCH Consent for chemotherapy drug treatment complete, dated, and signed? yes, date - 07/01/2023 Treatment lab parameters met? Yes Has treatment weight changed > than 10%? No Treatment preauthorized? Yes VITALS Filed Vitals: 07/29/23 1323 BP: 136/79 Pulse: 85 Resp: 20 Temp: 36.8 C (98.2 F) TempSrc: Tympanic Weight: 115.7 kg (255 lb 1.6 oz) Urine protein: N/A Patient education completed [...] symptoms or adverse side effects during treatment. documented in this encounter Plan of Treatment Upcoming Encounters Date Type Department Care Team (Late st Contact Info) Description 08/27/2023 10:30 AM EDT Laboratory Laboratory, [facility] [address] [place] [address] [facility], Lab [address] [place] [address] 08/27/2023 11:30 AM EDT Office Visit Hematology/Oncology, [address] [address] Lakeshia Stone CRNP [address] [place] [address] 08/31/2023 10:00 AM EDT Laboratory Laboratory [address], [place] [address] [place] [phone] [place], Lab [address] [place] [address] 09/04/2023 10:00 AM EDT Laboratory Laboratory, [address] [phone] [facility], Lab [address] [place] [address] 09/04/2023 11:00 AM EDT Telemedicine Hematology/Oncology, [address] [address] Mike Chaudhary MD [facility] [place] [address] [place], Telemed [facility] Hem Onc Clinic [address] [place] [address] 09/07/2023 7:15 AM EDT Nurse Only Hematology Oncology [place] [address] [place] [address] [place], Nurse Lab Hem/Onc [address] [place] [address] 09/07/2023 8:00 AM EDT Hem/Onc Treatment Hematology Oncology [address] [place] [address] [place] [address] [place], Chair 19 Hem/Onc [facility] [place] [address] 09/07/2023 2:00 PM EDT Appointment Radiology, [address] [phone] 09/09/2023 11:00 AM EDT Hem/Onc Treatment Hematology/Oncology Treatment, [address] [address] [facility], Chair1 Hem Onc [address] [place] [address] 09/09/2023 1:00 PM EDT Office Visit Palliative Medicine, [address] [place] [address] Tessa Rubio PA-C [address] [place] [address] 09/11/2023 9:00 AM EDT Nurse Only Hematology Oncology [facility], [address] [address] [place], Nurse Lab Hem/Onc [address] [place] [address] 09/11/2023 10:00 AM EDT Hem/Onc Treatment Hematology Oncology [facility], [address] [address] [place], Chair 19 Hem/Onc [address] [place] [address] 09/11/2023 2:00 PM EDT Appointment Radiology, [address] [phone] 09/14/2023 7:00 AM EDT Laboratory Laboratory, [address] [address] [facility], Lab [address] [place] [address] 09/14/2023 8:00 AM EDT Immunization/Injection Hematology/Oncology Treatment, [address] [address] [facility], Chair1 Hem Onc [address] [place] [address] 09/18/2023 10:00 AM EDT Laboratory Laboratory, [address] [phone] [facility], Lab [address] [place] [address] 09/18/2023 11:00 AM EDT Telemedicine Hematology/Oncology, [address] [address] Mike Chaudhary MD [address] [place] [address] Cart, Telemed [facility] Hem Onc Clinic [address] [place] [address] 09/25/2023 2:40 PM EDT Office Visit Rheumatology [address] [place] [address] Oliver Zhang MD [address] [place] [address] [place] [address] 02/19/2024 12:00 PM EST Office Visit Family Practice [address] [place] [address] Kayla Reeder DO [address] [place] [address] Scheduled Orders Name Type Priority Associated Diagnoses Orde r Schedule BLOOD PRESSURE Procedures STAT Encounter for antineoplastic chemotherapy 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) Expected: 07/29/2023 (Approximate), Expires: 01/25/2024 Health Maintenance Due Date Last Done Comments COVID-19 Vaccine (#1) 1993 Influenza Vaccine (FLU shot) (#1) 2023 11/17/2016, 11/17/2016, 11/30/2015, Additional history exists Depression Screening 07/07/2024 07/08/2023, 06/11/19 24 Albumin/Creatinine Ratio Discontinued 08/02/2021 documented as of this encounter Medical Devices Implanted Type Area Electromechanical Equipment Assembler Device Identifier Shelf Expiration Date Model / Serial / Lot Mediport Pwr Mri 8fr [id number] - [id number] Implanted:Qty : 1 on 07/17/2023 by Medhat Angel MD at OR [facility] Right: Chest CR BARD : PERIPHERAL VASCULAR 07/16/2024 [id number] / / [id number] Port Implant W8f Poly Cath - [id number] Implanted:Qty : 1 on 07/17/2023 by Medhat Angel MD at OR [facility] CR BARD : PERIPHERAL VASCULAR [id number] 07/16/2024 [id number] / / [id number] documented as of this encounter Visit Diagnoses [...] sulfate 1.9 mg, DOXOrubicin (Adriamycin) 48 mg [facility] 48 HOUR infusion Intravenous, Administer over 48 Hours, PROTECT FROM LIGHT! Administer through 0.22 micron low protein binding filter! Home Infusion Pharmacy to specify base solution and volume. To be given over 48 hours every other day for 4 days (2 bags) through home infusion company., CONTINUOUS, Starting on Thu07/29/23 at 1500, Until Thu07/29/23 at 1946 New Bag 07/29/2023 2:02 PM EDT 31.2 mL/hr NSS infusion FOR HYDRATION Intravenous, at 500 mL/hr Administer over 2 Hours, ONCE, 1 dose, On Thu07/29/23 at 1415 Start Infusion 07/29/2023 1:44 PM EDT 1,000 mL 500 mL/hr ondansetron (Zofran) tab 8 mg 8 mg, Oral, ONCE, On Thu07/29/23 at 1430, For 1 dose, Give 30 minutes prior to chemotherapy. Given 07/29/2023 1:41 PM EDT 8 mg documented in this encounter [...] on File Name Relationship Healthcare Agent [facility] Communication Trixei Le [facility] Repr esentative (appointed verbally by patient or by statute hierarchy) [email or web address] Care Teams Equities Analyst Relationship Specialty Start Date End Date Kayla Reeder DO [address] [facility] [place] [address] PCP - General Family Medicine 06/11/23 documented as of this encounter
--- OUTSIDE RECORDS SUMMARY | 2023-09-18 21:21 | External Medical Summary | Summary of Care ---
Author Name Unknown Organization [facility] Address [address] [place] [address] Phone [phone] Care Team Providers Care Day Camp Counselor Name Role Phone ReederKaylasnehal MALDONADO Primary Care Provider +1- [phone] Reason for Visit * Reason Onset Date Comments Lab Draw Only 08/21/2023 Encounter Details Date Type Department Care Team ([facility] st Contact Info) Description 08/21/2023 Telephone Hematology/Oncology, [facility] [address] [place] [address] Mike Chaudhary MD [address] [place] [address] Lab Draw Only Allergies No [...] Notes * Telephone Encounter - Radha Grimm feature writer - 08/24/2023 3:29 PM EDT DA-EPOCH LAB MONITORING DOCUMENTATION Farhad Franco [id number] Patient Phone Numbers Communication: Chart review Indication/Staging/Diagnosis Code: 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 Treatment: DA-EPOCH Cycle 3 Patient [...] labs due on Day 8 Radha Grimm Agency Service Representative III Hematology Oncology Oral Chemotherapy Clinic Medication Therapy Disease Management [facility] 08/21/2023 2:46 PM Time Spent on Encounter: 6 - 10 minutes documented in this encounter Plan of Treatment Upcoming Encounters Date Type Department Care Team (Late st Contact Info) Description 08/27/2023 10:30 AM EDT Laboratory Laboratory, [facility] [address] [place] [address] [facility], Lab [address] [facility] [place] [address] 08/27/2023 11:30 AM EDT Office Visit Hematology/Oncology, [address] [address] Lakeshia Stone CRNP [address] [place] [address] 08/31/2023 10:00 AM EDT Laboratory Laboratory [address], [place] [address] [place] [address] [place], Lab [address] [facility] [place] [address] 09/04/2023 10:00 AM EDT Laboratory Laboratory, [address] [address] [facility], Lab [address] [place] [address] 09/04/2023 11:00 AM EDT Telemedicine Hematology/Oncology, [address] [address] iMke Chaudhary MD [address] [place] [address] Bryant, Telemed [facility] Hem Onc Clinic [address] [place] [address] 09/07/2023 7:15 AM EDT Nurse Only Hematology Oncology [address] [address] [place], Nurse Lab Hem/Onc [facility] [place] [address] 09/07/2023 8:00 AM EDT Hem/Onc Treatment Hematology Oncology [facility], [place] [address] [place], Chair 19 Hem/Onc [address] [place] [address] 09/07/2023 2:00 PM EDT Appointment Radiology, [address] [address] 09/09/2023 11:00 AM EDT Hem/Onc Treatment Hematology/Oncology Treatment, [address] [address] [facility], Chair1 Hem Onc [address] [place] [address] 09/09/2023 1:00 PM EDT Office Visit Palliative Medicine, [address] [place] [address] Aury Silva MD [address] [place] [address] 09/11/2023 9:00 AM EDT Nurse Only Hematology Oncology [facility], [address] [address] [place], Nurse Lab Hem/Onc [address] [place] [address] 09/11/2023 10:00 AM EDT Hem/Onc Treatment Hematology Oncology [facility], [address] [address] [place], Chair 19 Hem/Onc [address] [place] [address] 09/11/2023 2:00 PM EDT Appointment Radiology, [address] [address] 09/14/2023 7:00 AM EDT Laboratory Laboratory, [address] [phone] [facility], Lab [address] [place] [address] 09/14/2023 8:00 AM EDT Immunization/Injection Hematology/Oncology Treatment, [address] [address] [facility], Chair1 Hem Onc [address] [place] [phone] 09/18/2023 10:00 AM EDT Laboratory Laboratory, [address] [phone] [facility], Lab [address] [place] [address] 09/18/2023 11:00 AM EDT Telemedicine Hematology/Oncology, [address] [address] Mike Chaudhary MD [address] [place], [place] [phone] Cart, Telemed [facility] Hem Onc Clinic [address] [place] [address] 09/25/2023 2:40 PM EDT Office Visit Rheumatology [place] [address]70 [place] [address] Oliver Zhang MD [facility] [place] [address] 02/19/2024 12:00 PM EST Office Visit [facility] [address], [place] [address] [place] [address] Kayla Reeder DO [address] [place] [address] Health Maintenance Due Date Last Done Comments COVID-19 Vaccine (#1) 1993 Influenza Vaccine (FLU shot) (#1) 2023 11/17/2016, 11/17/2016, 11/30/2015, Additional history exists Depression Screening 07/07/2024 07/08/2023, 06/11/19 24 Albumin/Creatinine Ratio Discontinued 08/02/2021 documented as of this encounter Medical Devices Implanted Type Area Promotions Executive Device Identifier Shelf Expiration Date Model / Serial / Lot Mediport Pwr Mri 8fr [id number] - [id number] Implanted:Qty : 1 on 07/17/2023 by Medhat Angel MD at OR [facility] Right: Chest CR BARD : PERIPHERAL VASCULAR 07/16/2024 [id number] / / [id number] Port Implant W8f Poly Cath - [id number] Implanted:Qty : 1 on 07/17/2023 by Medhat Angel MD at OR [facility] CR BARD : PERIPHERAL VASCULAR [id number] 07/16/2024 [id number] / / [id number] documented as of this encounter Advance Directives [...] Healthcare Agent Relationshi p Communication Trixie Le [facility] Repr esentative (appointed verbally by patient or by statute hierarchy) [email or web address] Care Teams Day Camp Counselor Relationship Specialty Start Date End Date Kayla Reeder DO [address] [facility] [place] [address] PCP - General Family Medicine 06/11/23 documented as of this encounter
--- OUTSIDE RECORDS SUMMARY | 2023-09-18 21:21 | External Medical Summary | Summary of Care ---
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) Procedures FL DOXORUBIC HCL 10 MG VL CHEMO FL VINCRISTINE SULFATE 1 MG INJ FL FOSAPREPITANT INJECTION FL ETOPOSIDE 10 MG INJ FL INJECTION, RITUXIMAB-PVVR, BIOSIMILAR, (RUXIENCE), 10 MG FL INJ, NYVEPRIA FL INJ, CYCLOPHOSPHAMIDE, NOS Wilfredo, Elvis Ray MD [address] [facility] [place] [address] Anc Hem/Onc [facility] [address] [facility] [place] [address] Referral ID Status Reason Start Date Expiration Date V isits Requested Visits Authorized [id number] Authorized 07/23/2023 01/22/2024 999 999 Encounter Details Date Type Department Care Team (Latest Contact Info) Description 07/31/2023 1:30 PM EDT Hem/Onc Treatment Hematology/Oncolog y Treatment, [facility] [address] [facility] [place] [address] [facility], Chair2 Hem Onc [address] [place] [address], [place] [address] Encounter for antineoplastic chemotherapy*; Burkitt lymphoma of [...] No 07/08/2023 Does the household have a [facility] source of income? (Household - [...] symptoms or adverse side effects during treatment. [facility] Care Plan ID is not set. [...] Description 08/27/2023 10:30 AM EDT Laboratory Laboratory, [facility] 400 [place] [address] [facility], Lab 400 [place] [address] 08/27/2023 11:30 AM EDT Office Visit Hematology/Oncology, [facility] [address] [facility] [address] Lakeshia Stone CRNP [facility] [place] [address] 08/31/2023 10:00 AM EDT Laboratory Laboratory [address] [place] [address] [place], Lab [facility] [address] [facility] [place] [address] 09/04/2023 10:00 AM EDT Laboratory Laboratory, [address] [address] [facility], Lab [address] [place] [address] 09/04/2023 11:00 AM EDT Telemedicine Hematology/Oncology, [address] [address] Mike Chaudhary MD [facility] [place] [address] [place], Telemed [facility] Hem Onc Clinic [address] [place] [address] 09/07/2023 7:15 AM EDT Nurse Only Hematology Oncology [address] [address] [place], Nurse Lab Hem/Onc [address] [place] [address] 09/07/2023 8:00 AM EDT Hem/Onc Treatment Hematology Oncology [address] [address] [place], Chair 19 Hem/Onc [address] [place] [address] 09/07/2023 2:00 PM EDT Appointment Radiology, [address] [phone] 09/09/2023 11:00 AM EDT Hem/Onc Treatment Hematology/Oncology Treatment, [address] [place] [address] [facility], Chair1 Hem Onc [address] [place] [address] 09/09/2023 1:00 PM EDT Office Visit Palliative Medicine, [address] [address] Tessa Rubio PA-C [address] [place] [address] 09/11/2023 9:00 AM EDT Nurse Only Hematology Oncology [facility], [address] [address] [place], Nurse Lab Hem/Onc [address] [place] [address] 09/11/2023 10:00 AM EDT Hem/Onc Treatment Hematology Oncology [facility], [address] [address] [place], Chair 19 Hem/Onc [address] [place] [address] 09/11/2023 2:00 PM EDT Appointment Radiology, [address] [phone] 09/14/2023 7:00 AM EDT Laboratory Laboratory, [address] [address] [facility], Lab [address] [place] [address] 09/14/2023 8:00 AM EDT Immunization/Injection Hematology/Oncology Treatment, [address] [address] [facility], Chair1 Hem Onc [address] [place] [address] 09/18/2023 10:00 AM EDT Laboratory Laboratory, [address] [phone] [facility], Lab [address] [place] [address] 09/18/2023 11:00 AM EDT Telemedicine Hematology/Oncology, [address] [place] [address] Mike Chaudhary MD [address] [place], [place] [phone] Cart, Telemed [facility] Hem Onc Clinic [address] [place] [address] 09/25/2023 2:40 PM EDT Office Visit Rheumatology [address] [place] [address] Oliver Zhang MD [address] [place] [address], [place] [address] 02/19/2024 12:00 PM EST [facility] [address] [place] [address] Kayla Reeder DO [address] [place] [address] Health Maintenance Due Date Last Done Comments COVID-19 Vaccine (#1) 1993 Influenza Vaccine (FLU shot) (#1) 2023 11/17/2016, 11/17/2016, 11/30/2015, Additional history exists Depression Screening 07/07/2024 07/08/2023, 06/11/19 24 Albumin/Creatinine Ratio Discontinued 08/02/2021 documented as of this encounter Medical Devices Implanted Type Area Chief Architect Device Identifier Shelf Expiration Date Model / Serial / Lot Madiport Pwr Mri 8fr [id number] - [id number] Implanted:Qty : 1 on 07/17/2023 by Medhat Angel MD at OR [facility] Right: Chest CR BARD : PERIPHERAL VASCULAR 07/16/2024 [id number] / / [id number] Port Implant W8f Poly Cath - [id number] Implanted:Qty : 1 on 07/17/2023 by Medhat Angel MD at OR [facility] CR BARD : PERIPHERAL VASCULAR [id number] 07/16/2024 [id number] / / [id number] documented as of this encounter Visit Diagnoses [...] File Name Relationship Healthcare Agent [facility] p Communication Trixie Le [facility] Repr esentative (appointed verbally by patient or by statute hierarchy) [email or web address] Teams Rectifying Operator Relationship Specialty Start Date End Date Kayla Reeder DO [address] [facility] [place] [address] PCP - General Family Medicine 06/11/23 documented as of this encounter
--- OUTSIDE RECORDS SUMMARY | 2023-09-18 21:21 | External Medical Summary | Summary of Care ---
Author Name Unknown Organization [facility] Address [address] [place] [address] Phone [phone] Care Team Providers Care Order Builder Loader Name Role Phone ReederBryanKaylaparth Clarke DO Primary Care Provider +1- [phone] Reason for Visit * Reason Comments Medication Refill Encounter Details Date Type Department Care Team (Late st Contact Info) Description 08/24/2023 Refill Palliative Medicine [facility] [address] [place] [address] Gregory Krishna MD [address] [place] [address] Cancer related pain Allergies No known active allergiesdocumented as of [...] Tablets in the evening. 30 Tablet 08/24/2023 09/23/19 24 Active Buprenorphine HCl 2 MG Sublingual Tablet Sublingual (Subutex)Indication s:Cancer related pain Place 0.5 Tablets under the tongue in the morning and 0.5 Tablets in the evening. 30 Tablet 07/22/2023 08/24/19 24 Discontinu ed(Refill) documented as of this [...] Palliative care encounter 06/22/2023 Retroperitoneal mass 06/21/2023 06 024 Aspiration pneumonitis 06/04/202204/19 Pneumonia of left [...] encounter Miscellaneous Notes * Telephone Encounter - Gregory Krishna MD - 08/24/2023 8:47 AM EDT Signed Prescriptions: Disp Refills Buprenorphine HCl 2 MG Sublingual Tablet S*30 Tab*0 Sig: Place 0.5 Tablets under the tongue in the morning and 0.5 Tablets in the evening.Authorizing Provider: GREGORY KRISHNA documented in this encounter Plan of Treatment Upcoming Encounters Date Type Department Care Team (Late st Contact Info) Description 08/27/2023 10:30 AM EDT Laboratory Laboratory, [address] [phone] [facility], Lab [address] [place] [address] 08/27/2023 11:30 AM EDT Office Visit Hematology/Oncology, [address] [address] Lakeshia Stone CRNP [address] [place] [address] 08/31/2023 10:00 AM EDT Laboratory Laboratory [facility], [place] [address] [place] [phone] [place], Lab [facility] [address] [place] [address] 09/04/2023 10:00 AM EDT Laboratory Laboratory, [address] [phone] [facility], Lab [address] [place] [address] 09/04/2023 11:00 AM EDT Telemedicine Hematology/Oncology, [address] [address] Mike Chaudhary MD [address] [place] [address] Porsche Hurtado [facility] Hem Onc Clinic [address] [place] [address] 09/07/2023 7:15 AM EDT Nurse Only Hematology Oncology [facility], [address] [address] [place], Nurse Lab Hem/Onc [address] [place] [address] 09/07/2023 8:00 AM EDT Hem/Onc Treatment Hematology Oncology [facility], [address] [address] [place], Chair 19 Hem/Onc [address] [place] [address] 09/07/2023 2:00 PM EDT Appointment Radiology, [address] [phone] 09/09/2023 11:00 AM EDT Hem/Onc Treatment Hematology/Oncology Treatment, [address] [address] [facility], Chair1 Hem Onc [address] [place] [address] 09/09/2023 1:00 PM EDT Office Visit Palliative Medicine, [address] 5[address] [place] [address] Gregory Krishna MD [address] [place] [address] 09/11/2023 9:00 AM EDT Nurse Only Hematology Oncology [facility], [address] [address] [place], Nurse Lab Hem/Onc [address] [place] [address] 09/11/2023 10:00 AM EDT Hem/Onc Treatment Hematology Oncology [facility], [address] [address] [place], Chair 19 Hem/Onc [address] [place] [address] 09/11/2023 2:00 PM EDT Appointment Radiology, [place] [address] [place] [address] 09/14/2023 7:00 AM EDT Laboratory Laboratory, [address] [phone] [facility], Lab [address] [place] [address] 09/14/2023 8:00 AM EDT Immunization/Injection Hematology/Oncology Treatment, [address] [address] [facility], Chair1 Hem Onc [address] [place] [address] 09/18/2023 10:00 AM EDT Laboratory Laboratory, [address] [phone] [facility], Lab [address] [place] [address] 09/18/2023 11:00 AM EDT Telemedicine Hematology/Oncology, [address] [address] Mike Chaudhary MD [address] [place] [address] [place], Telemed [facility] Hem Onc Clinic [address] [place] [address] 09/25/2023 2:40 PM EDT Office Visit Rheumatology [place] [address]40 [place] [address] Oliver Zhang MD [address] [place] [address] 02/19/2024 12:00 PM EST Office Visit Family [facility] [address], [place] [address] [place] [address] Kayla Reeder DO [address] [place] [address] Health Maintenance Due Date Last Done Comments COVID-19 Vaccine (#1) 1993 Influenza Vaccine (FLU shot) (#1) 2023 11/17/2016, 11/17/2016, 11/30/2015, Additional history exists Depression Screening 07/07/2024 07/08/2023, 06/11/19 24 Albumin/Creatinine Ratio Discontinued 08/02/2021 documented as of this encounter Medical Devices Implanted Type Area Electroplating Technician Device Identifier Shelf Expiration Date Model / Serial / Lot Mediport Pwr Mri 8fr [id number] - [id number] Implanted:Qty : 1 on 07/17/2023 by Medhat Angel MD at OR [facility] Right: Chest CR BARD : PERIPHERAL VASCULAR 07/16/2024 [id number] / / [id number] Port Implant W8f Poly Cath - [id number] Implanted:Qty : 1 on 07/17/2023 by Medhat Angel MD at OR [facility] CR BARD : PERIPHERAL VASCULAR [id number] 07/16/2024 [id number] / / [id number] documented as of this encounter Visit Diagnoses Diagnosis Cancer related pain Neoplasm related pain (acute) (chronic) documented in this encounter Advance Directives * [...] Healthcare Agent Relationshi p Communication Trixie Le [facility] Care Repr esentative (appointed verbally by patient or by statute hierarchy) [email or web address] Care Teams Order Builder Loader Relationship Specialty Start Date End Date Kayla Reeder DO [address] [facility] [place] [address] PCP - General Family Medicine 06/11/23 documented as of this encounter
--- OUTSIDE RECORDS SUMMARY | 2023-09-18 21:21 | External Medical Summary | Summary of Care ---
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) Procedures MO DOXORUBIC HCL 10 MG VL CHEMO MO VINCRISTINE SULFATE 1 MG INJ MO FOSAPREPITANT INJECTION MO ETOPOSIDE 10 MG INJ MO INJECTION, RITUXIMAB-PVVR, BIOSIMILAR, (RUXIENCE), 10 MG MO INJ, NYVEPRIA MO INJ, CYCLOPHOSPHAMIDE, NOS Wilfredo, Elvis Ray MD 400 [facility] [place] [address] Anc Hem/Onc [facility] [address] [facility] [place] [address] Referral ID Status Reason Start Date Expiration Date V isits Requested Visits Authorized [id number] Authorized 07/23/2023 01/22/2024 999 999 Encounter Details Date Type Department Care Team (Latest Contact Info) Description 07/29/2023 1:30 PM EDT Hem/Onc Treatment Hematology/Oncolog y Treatment, [facility] [address] [facility] [place] [phone] [facility], Chair4 Hem Onc [address] [place] [address], [place] [address] Encounter for antineoplastic chemotherapy*; Burkitt lymphoma of [...] No 07/08/2023 Does the household have a [facility] source of income? (Household - for ages [...] Kendall RN - 07/29/2023 3:27 PM EDT [facility] Care Plan ID is not [...] Description 08/27/2023 10:30 AM EDT Laboratory Laboratory, [facility] [address] [place] [address] [facility], Lab [address] [place] [address] 08/27/2023 11:30 AM EDT Office Visit Hematology/Oncology, [address] [address] Lakeshia Stone CRNP 400 [place] [address] 08/31/2023 10:00 AM EDT Laboratory Laboratory [address], [place] [address] [place] [phone] [place], Lab [address] [place] [address] 09/04/2023 10:00 AM EDT Laboratory Laboratory, [address] [phone] [facility], Lab [address] [place] [address] 09/04/2023 11:00 AM EDT Telemedicine Hematology/Oncology, [address] [address] Mike Chaudhary MD [facility] [place] [address] [place], Telemed [facility] Hem Onc Clinic [address] [place] [address] 09/07/2023 7:15 AM EDT Nurse Only Hematology Oncology [place] [address] [place] [address] [place], Nurse Lab Hem/Onc [address] [place] [address] 09/07/2023 8:00 AM EDT Hem/Onc Treatment Hematology Oncology [place] [address] [place] [address] [place], Chair 19 Hem/Onc [facility] [place] [address] 09/07/2023 2:00 PM EDT Appointment Radiology, [address] [phone] 09/09/2023 11:00 AM EDT Hem/Onc Treatment Hematology/Oncology Treatment, [address] [address] [facility], Chair1 Hem Onc [address] [place] [address] 09/09/2023 1:00 PM EDT Office Visit Palliative Medicine, [address] [place] [address] Tessa Rubio PA-C [address] [place] [address] 09/11/2023 9:00 AM EDT Nurse Only Hematology Oncology [facility], [address] [address] [place], Nurse Lab Hem/Onc [address] [place] [address] 09/11/2023 10:00 AM EDT Hem/Onc Treatment Hematology Oncology [facility], [address] [address] [place], Chair 19 Hem/Onc [address] [place] [address] 09/11/2023 2:00 PM EDT Appointment Radiology, [address] [phone] 09/14/2023 7:00 AM EDT Laboratory Laboratory, [address] [address] [facility], Lab [address] [place] [address] 09/14/2023 8:00 AM EDT Immunization/Injection Hematology/Oncology Treatment, [address] [address] [facility], Chair1 Hem Onc [address] [place] [address] 09/18/2023 10:00 AM EDT Laboratory Laboratory, [address] [phone] [facility], Lab [address] [place] [address] 09/18/2023 11:00 AM EDT Telemedicine Hematology/Oncology, [address] [address] Mike Chaudhary MD [address] [place] [address] Cart, Telemed [facility] Hem Onc Clinic [address] [place] [address] 09/25/2023 2:40 PM EDT Office Visit Rheumatology [address] [place] [address] Oliver Zhang MD [address] [place] [address] [place] [address] 02/19/2024 12:00 PM EST [place] [address] [place] [address] Kayla Reeder DO [address] [place] [address] Scheduled Orders Name Type Priority Associated Diagnoses [...] this encounter Medical Devices Implanted Type Area Assistant Sales Manager Device Identifier Shelf Expiration Date Model / Serial / Lot Mediport Pwr Mri 8fr [id number] - [id number] Implanted:Qty : 1 on 07/17/2023 by Medhat Angel MD at OR [facility] Right: Chest CR BARD : PERIPHERAL VASCULAR 07/16/2024 [id number] / / [id number] Port Implant W8f Poly Cath - [id number] Implanted:Qty : 1 on 07/17/2023 by Medhat Angel MD at OR [facility] CR BARD : PERIPHERAL VASCULAR [id number] 07/16/2024 [id number] / / [id number] documented as of this encounter Visit Diagnoses [...] sulfate 1.9 mg, DOXOrubicin (Adriamycin) 48 mg [facility] HOME INFUSION SERVICE 48 HOUR infusion [...] Agents on File Name Relationship Healthcare Agent [facility] Communication Trixie Le [facility] Repr esentative (appointed verbally by patient or by statute hierarchy) [email or web address] Pharmacist Technician Relationship Specialty Start Date End Date Kayla Reeder DO [address] [facility] [place] [address] PCP - General Family Medicine 06/11/23 documented as of this encounter
--- OUTSIDE RECORDS SUMMARY | 2023-09-18 21:21 | External Medical Summary | Summary of Care ---
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) Procedures MI DOXORUBIC HCL 10 MG VL CHEMO MI VINCRISTINE SULFATE 1 MG INJ MI FOSAPREPITANT INJECTION MI ETOPOSIDE 10 MG INJ MI INJECTION, RITUXIMAB-PVVR, BIOSIMILAR, (RUXIENCE), 10 MG MI INJ, NYVEPRIA MI INJ, CYCLOPHOSPHAMIDE, NOS Wilfredo, Elvis Ray MD [address] [facility] [place] [address] Anc Hem[facility]Onc [facility] [address] [facility] [place] [address] Referral ID Status Reason Start Date Expiration Date V isits Requested Visits Authorized [id number] Authorized 07/23/2023 01/22/2024 [id number] Encounter Details Date Type Department Care Team (Latest Contact Info) Description 07/31/2023 1:30 PM EDT Hem/Onc Treatment Hematology/Oncolog y Treatment, [facility] [address] [facility] [place] [address] [facility], Chair2 Hem Onc [address] [place] [address], [place] [address] Encounter for antineoplastic chemotherapy*; Burkitt lymphoma of [...] No 07/08/2023 Does the household have a [facility] source of income? (Household - for [...] symptoms or adverse side effects during treatment. [facility] Care Plan ID is not set. [...] Description 08/27/2023 10:30 AM EDT Laboratory Laboratory, [facility] [address] [place] [address] [facility], Lab [address] [place] [address] 08/27/2023 11:30 AM EDT Office Visit Hematology/Oncology, [facility] [address] [facility] [address] Lakeshia Stone CRNP [address] [facility] [place] [address] 08/31/2023 10:00 AM EDT Laboratory Laboratory [address] [place] [address] [place], Lab [facility] [address] [facility] [place] [address] 09/04/2023 10:00 AM EDT Laboratory Laboratory, [address] [address] [facility], Lab [address] [place] [address] 09/04/2023 11:00 AM EDT Telemedicine Hematology/Oncology, [address] [address] Mike Chaudhary MD [facility] [place] [address] Cart, Telemed [facility] Hem Onc Clinic [address] [place] [address] 09/07/2023 7:15 AM EDT Nurse Only Hematology Oncology [address] [address] [place], Nurse Lab Hem/Onc [address] [place] [address] 09/07/2023 8:00 AM EDT Hem/Onc Treatment Hematology Oncology [address] [address] [place], Chair 19 Hem/Onc [address] [place] [address] 09/07/2023 2:00 PM EDT Appointment Radiology, [address] [phone] 09/09/2023 11:00 AM EDT Hem/Onc Treatment Hematology/Oncology Treatment, [address] [place] [address] [facility], Chair1 Hem Onc [address] [place] [address] 09/09/2023 1:00 PM EDT Office Visit Palliative Medicine, [address] [address] Tessa Rubio PA-C [address] [place] [address] 09/11/2023 9:00 AM EDT Nurse Only Hematology Oncology [facility], [address] [address] [place], Nurse Lab Hem/Onc [address] [place] [address] 09/11/2023 10:00 AM EDT Hem/Onc Treatment Hematology Oncology [facility], [address] [address] [place], Chair 19 Hem/Onc [address] [place] [address] 09/11/2023 2:00 PM EDT Appointment Radiology, [address] [phone] 09/14/2023 7:00 AM EDT Laboratory Laboratory, [address] [address] [facility], Lab [address] [place] [address] 09/14/2023 8:00 AM EDT Immunization/Injection Hematology/Oncology Treatment, [address] [address] [facility], Chair1 Hem Onc [address] [place] [address] 09/18/2023 10:00 AM EDT Laboratory Laboratory, [address] [phone] [facility], Lab [address] [place] [address] 09/18/2023 11:00 AM EDT Telemedicine Hematology/Oncology, [address] [place] [address] Mike Chaudhary MD [address] [place], [place] [id number] Cart, Telemed [facility] Hem Onc Clinic [address] [place] [address] 09/25/2023 2:40 PM EDT Office Visit Rheumatology [address] [place] [address] Oliver Zhang MD [address] [place] [address], [place] [address] 02/19/2024 12:00 PM EST [facility] [address] [place] [address] Kayla Reeder DO [address] [place] [address] Health Maintenance Due Date Last Done Comments COVID-19 Vaccine (#1) 1993 Influenza Vaccine (FLU shot) (#1) 2023 11/17/2016, 11/17/2016, 11/30/2015, Additional history exists Depression Screening 07/07/2024 07/08/2023, 06/11/19 24 Albumin/Creatinine Ratio Discontinued 08/02/2021 documented as of this encounter Medical Devices Implanted Type Area Manager Law Device Identifier Shelf Expiration Date Model / Serial / Lot Madiport Pwr Mri 8fr [id number] - [id number] Implanted:Qty : 1 on 07/17/2023 by Medhat Angel MD at OR [facility] Right: Chest CR BARD : PERIPHERAL VASCULAR 07/16/2024 [id number] / / [id number] Port Implant W8f Poly Cath - [id number] Implanted:Qty : 1 on 07/17/2023 by Medhat Angel MD at OR [facility] CR BARD : PERIPHERAL VASCULAR [id number] 07/16/2024 [id number] / / [id number] documented as of this encounter Visit Diagnoses [...] Agents on File Name Relationship Healthcare Agent [facility] p Communication Trixie Le [facility] Repr esentative (appointed verbally by patient or by statute hierarchy) [email or web address] Care Teams Carbon Sequestration Plant Operator Relationship Specialty Start Date End Date Kayla Reeder DO [address] [facility] [place] [address] PCP - General Family Medicine 06/11/23 documented as of this encounter
--- OUTSIDE RECORDS SUMMARY | 2023-09-18 21:22 | External Medical Summary ---
Author Name Unknown Address Unknown Organization K1F:LABORATORY [facility] - [address] [place] [address] Laboratory Report Ordering Provider Test Date Status MATTI BARAJAS 08/24/2023 07:56:29 Final Observation Date Value Abnormality Reference (Units ) Status LDH 08/24/2023 07:56:29 243 <=250 (U/L ) Final Results may be falsely eleva ketan due to hemolysis. Performing Location LABORATORY [facility] - [address] [place] [address]
--- OUTSIDE RECORDS SUMMARY | 2023-09-18 21:22 | External Medical Summary ---
Author Name Unknown Address Unknown Organization K1F:LABORATORY [facility] - [address] [place] [address] Laboratory Report Ordering Provider Test Date Status JENNTYEMAIKEL 08/24/2023 07:56:29 Final Observation Date Value Abnormality Reference (Units ) Status Uric Acid 08/24/2023 07:56:29 5.7 3.4-7.0 (m g/dL) Final Performing Location LABORATORY [facility] - [address] [place] [address]
--- OUTSIDE RECORDS SUMMARY | 2023-09-18 21:22 | External Medical Summary | Summary of Care ---
Author Name Unknown Organization [facility] Address [address] [place] [address] Phone [phone] Care Team Providers Care Production Tool Engineer Name Role Phone Kayla Reeder DO Primary Care Provider +1- [phone] Reason for Visit * Reason Onset Date Comments Precert Approved 08/14/2023 MSIR Encounter Details Date Type Department Care Team ([facility] st Contact Info) Description 08/14/2023 Telephone Palliative Medicine, [facility] [address] [facility] 5th [place] [address] Gabriella Florian CRNP [address] [place] [address] Precert Approved (MSIR) Allergies No known active allergiesdocumented as of [...] needed for Nausea. 30 Tablet 07/15/2023 Active Buprenorphine HCl 2 MG Sublingual Tablet Sublingual (Subutex)Indication s:Cancer related pain Place 0.5 Tablets under the tongue in the morning and 0.5 Tablets in the evening. 30 Tablet 07/22/2023 08/26/19 24 Active Allopurinol 300 MG Oral Tablet (Zyloprim)Indicatio [...] 1-5 of EPOCH treatment only. 75 Tablet 07/27/2023 Active Famotidine 20 MG Oral Tablet [...] 56 Tablet 07/24/2023 08/22/19 24 Discontinu ed(Refill) HYDROmorphone HCl 2 MG [...] pain 07/24/2016 0 07/24/2017 Overview: Post [facility] Acute recurrent maxillary sinusitis 01/22/2016 07/24/2016 Attention [...] encounter Miscellaneous Notes * Telephone Encounter - Tegan Burleson LPN - 08/14/2023 9:41 AM EDT PRIOR AUTHORIZATION Medication Name and Strength: Morphine Sulfate 15 MG Oral Tablet (Msir) Qty & Days Supply: #30 tabs/7.5 days supply ICD 10 Code(s): Cancer related pain [G89.3] Is there medical record documentation that the prescriber or the prescriber's delegate conducted a search of the [place] Prescription Drug Monitoring Program (PDMP) for the beneficiary's controlled substance prescription history? YES Therapeutic failure, intolerance or contraindication to alternative medications? (If yes, please list the medications): YES, oxyCODONE-Acetaminophen 5-325 MG Oral Tablet (Percocet), Hydromorphone Also on Buprenorphine HCl 2 MG Sublingual Tablet Sublingual (Subutex) Is there medical record documentation of a diagnosis of active cancer? YES Is there medical record documentation of a diagnosis of sickle cell disease with crisis? NO Is there medical record documentation that the member is receiving hospice services? NO Is there medical record documentation that the member is receiving palliative care? YES (Answering YES to this question may populate automatic approval) Additional supportive documentation if needed: Palliative symptoms: Pain: Located at: mid-thoracic back Currently taking: subutex 1mg BID, takes hydromorphone 3mg just once in the evening when the pain is the worst. Severity: 3.5-4/10 at its worst. Current sitting in office it is a 1/10. Timing: worse in the evening Context: Burkitt's lymphoma, at the site of injections Discontinued Hydromorphone documented in this encounter Plan of Treatment Upcoming Encounters Date Type Department Care Team (Late st Contact Info) Description 08/27/2023 10:30 AM EDT Laboratory Laboratory, [address] [address] [facility], Lab [address] [place] [address] 08/27/2023 11:30 AM EDT Office Visit Hematology/Oncology, [address] [place] [address] Lakeshia Stone CRNP [address] [place] [address] 08/31/2023 10:00 AM EDT Laboratory Laboratory [place] Maribell Garcia [address] [place] [address] Violette Reyna [facility] [address] [place] [address] 09/04/2023 10:00 AM EDT Laboratory Laboratory, [address] [address] [facility], Lab [address] [place] [address] 09/04/2023 11:00 AM EDT Telemedicine Hematology/Oncology, [address] [address] Mike Chaudhary MD [facility] [place] [address] Cart, Telemed [facility] Hem Onc Clinic [address] [place] [address] 09/07/2023 7:15 AM EDT Nurse Only Hematology Oncology [facility], [address] [address] [place], Nurse Lab Hem/Onc [address] [place] [address] 09/07/2023 8:00 AM EDT Hem/Onc Treatment Hematology Oncology [address] [address] [place], Chair 19 Hem/Onc [address] [place] [address] 09/07/2023 2:00 PM EDT Appointment Radiology, [address] [phone] 09/09/2023 11:00 AM EDT Hem/Onc Treatment Hematology/Oncology Treatment, [address] [address] [facility], Chair1 Hem Onc [address] [place] [address] 09/09/2023 1:00 PM EDT Office Visit Palliative Medicine, [address] 5th [place] [address] Aury Silva MD [address] [place] [address] 09/11/2023 9:00 AM EDT Nurse Only Hematology Oncology [facility], [address] [address] [place], Nurse Lab Hem/Onc [address] [place] [address] 09/11/2023 10:00 AM EDT Hem/Onc Treatment Hematology Oncology [facility], [address] [address] [place], Chair 19 Hem/Onc [address] [place] [address] 09/11/2023 2:00 PM EDT Appointment Radiology, [address] [phone] 09/14/2023 7:00 AM EDT Laboratory Laboratory, [address] [address] [facility], Lab [address] [place] [address] 09/14/2023 8:00 AM EDT Immunization/Injection Hematology/Oncology Treatment, [address] [address] [facility], Chair1 Hem Onc [address] [place] [address] 09/18/2023 10:00 AM EDT Laboratory Laboratory, [address] [phone] [facility], Lab [address] [place] [address] 09/18/2023 11:00 AM EDT Telemedicine Hematology/Oncology, [address] [address] Mike Chaudhary MD [address] [place] [address] Cart, Telemed [facility] Hem Onc Clinic [address] [place] [address] 09/25/2023 2:40 PM EDT Office Visit Rheumatology [address] [place] [address] Oliver Zhang MD [address] [place] [address] [employer] [place] [address] 02/19/2024 12:00 PM EST Office Visit [facility] [address] [place] [address] Kayla Reeder DO [address] [place] [address] Health Maintenance Due Date Last Done Comments COVID-19 Vaccine (#1) 1993 Influenza Vaccine (FLU shot) (#1) 2023 11/17/2016, 11/17/2016, 11/30/2015, Additional history exists Depression Screening 07/07/2024 07/08/2023, 06/11/19 24 Albumin/Creatinine Ratio Discontinued 08/02/2021 documented as of this encounter Medical Devices Implanted Type Area Cross Tie Turner Device Identifier Shelf Expiration Date Model / Serial / Lot Mediport Pwr Mri 8fr [id number] - [id number] Implanted:Qty : 1 on 07/17/2023 by Medhat Angel MD at OR [facility] Right: Chest CR BARD : PERIPHERAL VASCULAR 07/16/2024 [id number] / / [id number] Port Implant W8f Poly Cath - [id number] Implanted:Qty : 1 on 07/17/2023 by Medhat Angel MD at OR [facility] CR BARD : PERIPHERAL VASCULAR [id number] 07/16/2024 [id number] / / [id number] documented as of this encounter Advance Directives [...] Relationshi p Communication Trixie Le [facility] Repr esentative (appointed verbally by patient or by statute hierarchy) [email or web address] Care Teams Production Tool Engineer Relationship Specialty Start Date End Date Kayla Reeder DO [address] [facility] [place] [address] PCP - General Family Medicine 06/11/23 documented as of this encounter
--- OUTSIDE RECORDS SUMMARY | 2023-09-18 21:22 | External Medical Summary ---
Author Name Unknown Address Unknown Organization K1F:[facility] [address] [facility] [place] [address] Laboratory Report Ordering Provider Test Date Status MATTI BARAJAS 08/24/2023 07:56:29 Final Observation Date Value Abnormality Reference (Units ) Status BUN 08/24/2023 07:56:29 19 6-20 (mg/dL) Final Creatinine 08/24/2023 07:56:29 0.7 0.6-1.2 (mg/dL) Final Glomerular filtration rate/1.73 sq M.predicted [Volume Rate/Area] in Serum, Plasma or Blood by Creatinine-based formula (CKD-EPI) 08/24/2023 07:56:29 >90 >=60 (mL/min) Final eGFR is calculated based on the CKD-EPI 2020 equation Sodium 08/24/2023 07:56:29 142 135-146 (m mol/L) Final Potassium 08/24/2023 07:56:29 3.4 Below low normal 3.5 -5.1 (mmol/L) Final Cl 08/24/2023 07:56:29 104 98-107 (mm ol/L) Final CO2 08/24/2023 07:56:29 24 22-32 (mmo l/L) Final Anion gap 08/24/2023 07:56:29 14 7-15 (mmol /L) Final Glucose 08/24/2023 07:56:29 112 70-120 (mg /dL) Final Albumin 08/24/2023 07:56:29 3.9 3.8-5.0 (g /dL) Final AST (Aspartate aminotransferase) 08/24/2023 07:56:29 19 10-50 (U/L) Fin al Results may be falsely eleva ketan due to hemolysis. Alk Phos 08/24/2023 07:56:29 52 35-130 (U/ L) Final Bilirubin, Total 08/24/2023 07:56:29 0.4 <=1 .2 (mg/dL) Final Calcium 08/24/2023 07:56:29 9.3 8.4-10.2 ( mg/dL) Final Protein 08/24/2023 07:56:29 5.8 Below low normal 6.0 -8.3 (g/dL) Final ALT (Alanine aminotransferase) 08/24/2023 07:56:29 40 10-50 (U/L) Jaswinder mullen Performing Location LABORATORY [facility] - [facility] [place] [place] [address]
--- OUTSIDE RECORDS SUMMARY | 2023-09-18 21:22 | External Medical Summary | Summary of Care ---
Author Name Unknown Organization [facility] Address [address] [place] [address] Phone [phone] Care Team Providers Care Meal Miller Name Role Phone Kayla Reeder DO Primary Care Provider +1- [phone] Reason for Visit * Reason Comments Outpatient Testing Encounter Details Date Type Department Care Team ([facility] st Contact Info) Description 08/24/2023 7:00 AM EDT Laboratory Laboratory, [facility] [address] [place] [phone] [facility], Lab [address] [place] [address] Burkitt lymphoma of intra-abdominal lymph [...] Tablets in the evening. 30 Tablet 07/22/2023 Active Allopurinol 300 MG Oral Tablet (Zyloprim)Indication [...] Tablets before bedtime. 56 Tablet 08/22/2023 Active documented as of this encounter (statuses [...] Description 08/27/2023 10:30 AM EDT Laboratory Laboratory, [facility] [address] [facility] [place] [address] [facility] Lab [address] [facility] [address] 08/27/2023 11:30 AM EDT Office Visit Hematology/Oncology, [facility] [address] 400 [facility] [address] Lakeshia Stone CRNP 400 [facility] [place] [address] 08/31/2023 10:00 AM EDT Laboratory Laboratory [place], Maribell [address] [place] [phone] [place], [address] [place] [address] 09/04/2023 10:00 AM EDT Laboratory Laboratory, [address] [address] [facility], Lab [address] [place] [address] 09/04/2023 11:00 AM EDT Telemedicine Hematology/Oncology, [address] [address] Mike Chaudhary MD [facility] [place] [address] Cart, Telemed [facility] Hem Onc Clinic [address] [place] [address] 09/07/2023 7:15 AM EDT Nurse Only Hematology Oncology [address] [address] [place]ha, Nurse Lab Hem/Onc [address] [place] [address] 09/07/2023 8:00 AM EDT Hem/Onc Treatment Hematology Oncology [place] [address] [place] [address] I[place]ha, Chair 19 Hem/Onc [facility] [place] [address] 09/07/2023 2:00 PM EDT Appointment Radiology, [address] [phone] 09/09/2023 11:00 AM EDT Hem/Onc Treatment Hematology/Oncology Treatment, [address] [address] [facility], Chair1 Hem Onc [address] [place] [address] 09/09/2023 1:00 PM EDT Office Visit Palliative Medicine, [address] 5th [place] [address] Aury Silva MD [address] [place] [address] 09/11/2023 9:00 AM EDT Nurse Only Hematology Oncology [facility], [address] [address] [place], Nurse Lab Hem/Onc [address] [place] [address] 09/11/2023 10:00 AM EDT Hem/Onc Treatment Hematology Oncology [facility], [address] [address] [place], Chair 19 Hem/Onc [address] [place] [address] 09/11/2023 2:00 PM EDT Appointment Radiology, [address] [address] 09/14/2023 7:00 AM EDT Laboratory Laboratory, [address] [address] [facility], Lab [address] [place] [address] 09/14/2023 8:00 AM EDT Immunization/Injection Hematology/Oncology Treatment, [address] [address] [facility], Chair1 Hem Onc [address] [place] [address] 09/18/2023 10:00 AM EDT Laboratory Laboratory, [address] [address] [facility], Lab [address] [place] [address] 09/18/2023 11:00 AM EDT Telemedicine Hematology/Oncology, [address] [address] Mike Chaudhary MD [address] [place] [address] Cart, Telemed [facility] Hem Onc Clinic [address] [place] [phone] 09/25/2023 2:40 PM EDT Office Visit Rheumatology [address] [address] Oliver Zhang MD [address] [place] [address], [place] [address] 02/19/2024 12:00 PM EST Office Visit [facility] Maribell Garcia [address] [facility] [place]ST [place] [address] Kayla Reeder DO [address] [facility] [place]ST [place] [address] Pending Results Name Type Priority Associated Diagnoses Date /Time COMPREHENSIVE METABOLIC PANEL Lab STAT 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) 08/24/2023 7:56 AM EDT URIC ACID Lab STAT 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) 08/24/2023 7:56 AM EDT LD Lab STAT 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) 08/24/2023 7:56 AM EDT Health Maintenance Due Date Last Done Comments COVID-19 Vaccine (#1) 1993 Influenza Vaccine (FLU shot) (#1) 2023 11/17/2016, 11/17/2016, 11/30/2015, Additional history exists Depression Screening 07/07/2024 07/08/2023, 06/11/19 24 Albumin/Creatinine Ratio Discontinued 08/02/2021 documented as of this encounter Medical Devices Implanted Type Area Military Administrative Technician Device Identifier Shelf Expiration Date Model / Serial / Lot Madiport Pwr Mri 8fr [id number] - [id number] Implanted:Qty : 1 on 07/17/2023 by Medhat Angel MD at OR [facility] Right: Chest CR BARD : PERIPHERAL VASCULAR 07/16/2024 [id number] / / [id number] Port Implant W8f Poly Cath - [id number] Implanted:Qty : 1 on 07/17/2023 by Medhat Angel MD at OR [facility] CR BARD : PERIPHERAL VASCULAR [id number] 07/16/2024 [id number] / / [id number] documented as of this encounter Procedures Procedure Name Priority Date/Time Associated Diagnosis Comments DIFFERENTIAL, AUTOMATED STAT 08/24/2023 7:56 AM EDT 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) CBC STAT 08/24/2023 7:56 AM EDT 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) CBC STAT 08/24/2023 7:56 AM EDT 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) documented in this encounter Results * (ABNORMAL) DIFFERENTIAL, AUTOMATED (08/24/2023 7:56 AM EDT) WBC 2.07(L) 4.00 - 10.80 K/uL 08/24/2023 8:22 AM EDT LABORATORY GL Neutrophils % 80.6(H) 40.0 - 75.0 % 08/24/2023 8:22 AM EDT LABORATORY [facility] Lymphocytes % 17.4(L) 18.0 - 42.0 % 08/24/2023 8:22 AM EDT LABORATORY [facility] Monocytes % 1.0 1.0 - 11.0 % 08/24/2023 8:22 AM EDT LABORATORY [facility] Eosinophils % 0.0 0.0 - 6.0 % 08/24/2023 8:22 AM EDT LABORATORY GL Basophils % 0.5 0.0 - 2.0 % 08/24/2023 8:22 AM EDT LABORATORY GL Immature Granulocytes % 0.5 0.0 - 2.0 % 08/24/2023 8:22 AM EDT LABORATORY GL Absolute Neutrophils 1.67(L) 1.80 - 7.70 K/uL 08/24/2023 8:22 AM EDT LABORATORY GL Absolute Lymphocytes 0.36(L) 1.00 - 4.80 K/ul 08/24/2023 8:22 AM EDT LABORATORY GL Absolute Monocytes 0.02 0.00 - 1.10 K/uL 08/24/2023 8:22 AM EDT LABORATORY GL Absolute Eosinophils 0.00 0.00 - 0.70 K/uL 08/24/2023 8:22 AM EDT LABORATORY GL Absolute Basophils 0.01 0.00 - 0.20 K/uL 08/24/2023 8:22 AM EDT LABORATORY [facility] Absolute Immature Granulocytes 0.01 0.00 - 0.20 K/uL 08/24/2023 8:22 AM EDT LABORATORY [facility] Blood Venous blood specimen / Unknown Venipuncture / Unknown 08/24/2023 7:56 AM EDT 08/24/2023 8:09 AM EDT Mike Chaudhary MD LAB BLOOD O RDERABLES LABORATORY [address] [address] * (ABNORMAL) CBC (08/24/2023 7:56 AM EDT) WBC 2.07(L) 4.00 - 10.80 K/uL 08/24/2023 8:22 AM EDT LABORATORY GL RBC 2.47 4.50 - 5.25 M/uL 08/24/2023 8:22 AM EDT LABORATORY GL HGB 7.6(L) 14.0 - 16.8 g/dL 08/24/2023 8:22 AM EDT LABORATORY GL HCT 23.1(L) 40.0 - 48.4 % 08/24/2023 8:22 AM EDT LABORATORY [facility] MCV 93.5 82.0 - 99.5 fL 08/24/2023 8:22 AM EDT LABORATORY [facility] MCH 30.8 27.0 - 34.0 pg 08/24/2023 8:22 AM EDT LABORATORY [facility] MCHC 32.9 32.0 - 36.0 g/dL 08/24/2023 8:22 AM EDT LABORATORY [facility] RDW 18.3 11.5 - 15.5 % 08/24/2023 8:22 AM EDT LABORATORY [facility] PLT 139(L) 140 - 400 K/uL 08/24/2023 8:22 AM EDT LABORATORY [facility] MPV 9.4 6.6 - 11.1 fL 08/24/2023 8:22 AM EDT LABORATORY [facility] nRBCs 0 <=0 /100 WBCs 08/24/2023 8:22 AM EDT LABORATORY [facility] Blood Venous blood specimen / Unknown Venipuncture / Unknown 08/24/2023 7:56 AM EDT 08/24/2023 8:09 AM EDT Mike Chaudhary MD LAB BLOOD O RDERABLES Performing Organization Address City/State/[facility] Co de Phone Number LABORATORY [address] [address] documented in this encounter Visit Diagnoses [...] on File Name Relationship Healthcare Agent [facility] p Communication Trixie [facility]ope [facility] Repr esentative (appointed verbally by patient or by statute hierarchy) [email or web address] Care Teams Meal Miller Relationship Specialty Start Date End Date Kayla Reeder DO [address] [facility] [place]NST [place] [address] PCP - General Family Medicine 06/11/23 documented as of this encounter
--- OUTSIDE RECORDS SUMMARY | 2023-09-18 21:22 | External Medical Summary | Summary of Care ---
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) Procedures CO DOXORUBIC HCL 10 MG VL CHEMO CO VINCRISTINE SULFATE 1 MG INJ CO FOSAPREPITANT INJECTION CO ETOPOSIDE 10 MG INJ CO INJECTION, RITUXIMAB-PVVR, BIOSIMILAR, (RUXIENCE), 10 MG CO INJ, NYVEPRIA CO INJ, CYCLOPHOSPHAMIDE, NOS Wilfredo, Elvis Ray MD [address] [place] [address] Anc Hem/Onc [facility] [address] [place] [address] Referral ID Status Reason Start Date Expiration Date V isits Requested Visits Authorized [id number] Authorized 07/23/2023 01/22/2024 [id number] Encounter Details Date Type Department Care Team (Latest Contact Info) Description 08/21/2023 10:00 AM EDT Hem/Onc Treatment Hematology Oncology [facility] [address] [place], [place] [phone] [place], [facility] 18 Hem/Onc [address], [place] [phone] Encounter for antineoplastic chemotherapy*; 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) Allergies No known active allergiesdocumented as of this encounter (statuses as of 08/21/2023) Medications Medication Sig Dispensed Refills Start Date [...] as of this encounter (statuses as of 08/21/2023) Active Problems Problem Noted Date Diagnosed Date [...] as of this encounter (statuses as of 08/21/2023) Resolved Problems Problem Noted Date Diagnosed Date [...] as of this encounter (statuses as of 08/21/2023) Immunizations Name Administration Dates Next Due DT [...] Sign Reading Time Taken Comments Blood Pressure 117/79 08/21/2023 9:40 AM EDT Pulse 79 08/21/2023 9:40 AM EDT Temperature 36.7 C (98 F) 08/21/2023 9:40 AM EDT Respiratory Rate 16 08/21/2023 9:40 AM EDT Oxygen Saturation 97% 08/21/2023 9:40 AM EDT RA Inhaled Oxygen Concentration - - Weight 113.7 kg (250 lb 9.6 oz) 08/21/2023 9:40 AM EDT Height 180.3 cm (5' 11") 08/21/2023 9:40 AM EDT Body Mass Index 34.95 08/21/2023 9:40 AM EDT documented in this [...] as of this encounter Nursing Notes * Celina Flanagan RN - 08/21/2023 2:26 PM EDT Pt had to leave to go to IR with approx 10 ml of K challenge (20 caity) uninfused- Dr Chaudhary made aware. * Celina Flanagan RN - 08/21/2023 12:45 PM EDT 1210 EPOCH chemo complete. 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 She states to leave pump here at [facility] and that she will notify pt's major case detective RN. * Celina Flanagan RN - 08/21/2023 10:18 AM EDT Per pharmacy ok to run nss with EPCOH via mediport * Celina Flanagan RN - 08/21/2023 9:56 AM EDT Safety and Risk for Injury Patient will remain free from injury. Ensure appropriate safety devices are available. Provide and maintain safe environment. Chair 11 old Goals: see above Possible barriers to meeting goals: treatment Stability of the patient: Moderately stable - low risk of patient condition declining or worsening Summary regarding today's goals: Met: unharmed Functional status at today's visit: Restricted in [...] during treatment. * Tara Lang RN - 08/21/2023 9:48 AM EDT Pre-chemo checklist Chemo/Immune agents ::cytoxan Consent for chemotherapy drug treatment complete, dated, and signed? 07/01/2023 Is this a research protocol? no Treatment lab parameters met? Yes Has treatment weight changed > than 10% No Treatment preauthorized? Yes Blood pressure N/A Urine protein N/A Chemo education completed for new therapies? N/A Return appointment scheduled Yes Orders released Yes, meets parameters outlined in [place] plan documented in this encounter Plan of Treatment Upcoming Encounters Date Type Department Care Team (Late st Contact Info) Description 08/24/2023 7:00 AM EDT Laboratory Laboratory, [address] [phone] [facility], Lab [address] [place], [place] [address]ERNST [place] [address] 08/24/2023 8:00 AM EDT Immunization/Injection Hematology/Oncology Treatment, [address] [place] [address] [facility], Chair1 Hem Onc 400 [facility] [place] [address] 08/27/2023 10:30 AM EDT Laboratory Laboratory, [address] [phone] [facility], Lab [address] [place] [address] 08/27/2023 11:30 AM EDT Office Visit Hematology/Oncology, [address] [address] Lakeshia Stone CRNP 400 [place] [address] 08/31/2023 10:00 AM EDT Laboratory Laboratory [facility] [place] [address] [facility] [place] [phone] [place], Lab [facility] [address] [facility] [place] [address] 09/04/2023 10:00 AM EDT Laboratory Laboratory, [address] [phone] [facility], Lab [address] [place] [address] 09/04/2023 11:00 AM EDT Telemedicine Hematology/Oncology, [address] [address] Mike Chaudhary MD [address] [place] [address] [place] Telemed [facility] Hem Onc Clinic [address] [place] [address] 09/07/2023 7:15 AM EDT Nurse Only Hematology Oncology [facility] [address] [place] [address] [place], Nurse Lab Hem/Onc [address] [place] [address] 09/07/2023 8:00 AM EDT Hem/Onc Treatment Hematology Oncology [facility], [address] [address] [place], Chair 19 Hem/Onc [address] [place] [address] 09/07/2023 2:00 PM EDT Appointment Radiology, [address] [phone] 09/09/2023 11:00 AM EDT Hem/Onc Treatment Hematology/Oncology Treatment, [address] [address] [facility], Chair1 Hem Onc [address] [place] [address] 09/09/2023 1:00 PM EDT Office Visit Palliative Medicine, [address] 5th [place] [address] Aury Silva MD [address] [place] [address] 09/11/2023 9:00 AM EDT Nurse Only Hematology Oncology [address] [address] [place], Nurse Lab Hem/Onc [address] [place] [address] 09/11/2023 10:00 AM EDT Hem/Onc Treatment Hematology Oncology [facility], [address] [address] [place], Chair 19 Hem/Onc [address] [place] [address] 09/11/2023 2:00 PM EDT Appointment Radiology, [place] [address] [place] [address] 09/14/2023 7:00 AM EDT Laboratory Laboratory, [address] [address] [facility], Lab [address] [place] [address] 09/14/2023 8:00 AM EDT Immunization/Injection Hematology/Oncology Treatment, [address] [address] [facility], Chair1 Hem Onc [address] [place] [address] 09/18/2023 10:00 AM EDT Laboratory Laboratory, [address] [phone] [facility], Lab [address] [place] [address] 09/18/2023 11:00 AM EDT Telemedicine Hematology/Oncology, [address] [address] Mike Chaudhary MD [address] [place] [address] Cart, Telemed [facility] Hem Onc Clinic [address] [place] [address] 09/25/2023 2:40 PM EDT Office Visit Rheumatology [address] [place] [address] Oliver Zhang MD [address] [place] [address] [place] [address] 02/19/2024 12:00 PM EST Office Visit [facility] [address], [place] [address] [place] [place] [address] Kayla Reeder DO [address] [place] [id number] Health Maintenance Due Date Last Done Comments COVID-19 Vaccine (#1) 1993 Influenza Vaccine (FLU shot) (#1) 2023 11/17/2016, 11/17/2016, 11/30/2015, Additional history exists Depression Screening 07/07/2024 07/08/2023, 06/11/19 Albumin/Creatinine Ratio Discontinued 08/02/2021 documented as of this encounter Medical Devices Implanted Type Area Director Of Safety And Security Device Identifier Shelf Expiration Date Model / Serial / Lot Mediport Pwr Mri 8fr [id number] - [id number] Implanted:Qty : 1 on 07/17/2023 by Medhat Angel MD at OR [facility] Right: Chest CR BARD : PERIPHERAL VASCULAR 07/16/2024 [id number] / / [id number] Port Implant W8f Poly Cath - [id number] Implanted:Qty : 1 on 07/17/2023 by Medhat Angel MD at OR [facility] CR BARD : PERIPHERAL VASCULAR [id number] 07/16/2024 [id number] / / [id number] documented as of this encounter Visit Diagnoses [...] ONCE PRN Other, Hypersensitivity Reaction, Starting on Thu08/21/23 at 0949, Until 08/22/23 at 0948, For 24 hours EPINEPHrine 1 MG/ML inj 0.3 mg 0.3 mg, Intramuscular, ONCE PRN Other, Hypersensitivity Reaction or Anaphylaxis, Starting on Thu08/21/23 at 0949, Until 08/22/23 at 0948, For 24 hours hEParin 100 UNIT/ML Lock Flush inj 500 Units 500 Units (5 mL), IV Lock, PRN Other, IV Flush, Starting on Thu08/21/23 at 0949, Until 08/22/23 at 0948, For 24 hours, Do not flush if lock, PICC, or central line not in place; IV infusing or unable to flush. Given 08/21/2023 2:06 PM EDT 500 Units Hydrocortisone Sod Suc (PF) (Solu-Cortef) inj 100 mg 100 mg, IV Push, ONCE PRN Other, Hypersensitivity Reaction, Starting on Thu08/21/23 at 0949, Until 08/22/23 at 0948, For 24 hours LORAzepam (Ativan) tab 0.5 mg 0.5 mg, Oral, ONCE PRN Anxiety, Nausea, Starting on Thu08/21/23 at 1100, Until Discontinued NSS infusion Intravenous, at 50 mL/hr, PRN, Starting on Thu08/21/23 at 1100, Until Discontinued, Maintenance line Start Infusion 08/21/2023 12:17 PM EDT 50 mL/hr oxygen GAS Inhalation, OXYGEN, First dose on Thu08/21/23 at 1030, Until Discontinued, Device/Managed by: Low Flow Device, [...] Push, PRN Other, IV Flush, Starting on Thu08/21/23 at 0949, Until 08/22/23 at 0948, For 24 hours, Do not flush if lock, PICC, or central line not in place; IV infusing or unable to flush. Given 08/21/2023 2:06 PM EDT 10 mL Given 08/21/2023 10:13 AM EDT 10 mL Inactive Administered Medications - up to 3 most recent administrations Medication Order MAR Action Action Date Dose Rate Site cycloPHOSphamide (Cytoxan) 2,140 mg in NSS 500 mL infusion 2,140 mg (rounded from 2,142 mg = 900 mg/m2 2.38 m2 Treatment Plan BSA from Recorded weight), IV Piggyback, ONCE, On Thu08/21/23 at 1130, For 1 dose, Cyclophosphamide doses over 1g should be in 500 mL.May extend infusion to 1 hour if not tolerated. Start Infusion 08/21/2023 12:20 PM EDT 2,140 mg 667 mL/hr NSS infusion FOR HYDRATION Intravenous, at 500 mL/hr Administer over 2 Hours, ONCE, 1 dose, On Thu08/21/23 at 1030 Start Infusion 08/21/2023 10:14 AM EDT 1,000 mL 500 mL/hr ondansetron (Zofran) tab 8 mg 8 mg, Oral, ONCE, On Thu08/21/23 at 1100, For 1 dose, Give 30 minutes prior to chemotherapy. Given 08/21/2023 10:14 AM EDT 8 mg potassium chloride 20 mEq in 50 mL ivpb LOCKED DOSE 20 mEq, Central IV, Q1H, 2 doses, First dose on Thu08/21/23 at 1300, Last dose on Thu08/21/23 at 1400, Administer over 60 Minutes, Standard infusion duration is 60 minutes. Start Infusion 08/21/2023 1:13 PM EDT 20 mEq 50 mL/hr Start Infusion 08/21/2023 12:12 PM EDT 20 mEq 50 mL/hr documented [...] Agents on File Name Relationship Healthcare Agent [facility] p Communication Trixie Le [facility] Repr esentative (appointed verbally by patient or by statute hierarchy) [email or web address] Care Teams Pin Drafting Machine Operator Relationship Specialty Start Date End Date Kayla Reeder DO [address] [facility] [place] [address] PCP - General Family Medicine 06/11/23 documented as of this encounter
--- OUTSIDE RECORDS SUMMARY | 2023-09-18 21:22 | External Medical Summary | Summary of Care ---
Author Name Unknown Organization [facility] Address [address] [place] [address] Phone [phone] Care Team Providers Care Gear Machine Operator General Name Role Phone Kayla Reeder DO Primary Care Provider +1- [phone] Encounter Details Date Type Department Care Team (Late st Contact Info) Description 08/21/2023 Telephone Hematology/Oncology, [facility] [address] [place] [address] Mike Chaudhary MD [address] [place] [address] Allergies No known active allergiesdocumented as of [...] EDT DA-EPOCH LAB MONITORING DOCUMENTATION Farhad Franco [id number] Patient Phone Numbers Communication: Chart review Indication/Staging/Diagnosis Code: 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 Chaudhary Treatment: DA-EPOCH Cycle 3 Patient [...] labs due on Day 8 Radha Grimm Meat Slicer III Hematology Oncology Oral Chemotherapy Clinic Medication Therapy Disease Management [facility] 08/21/2023 2:46 PM Time Spent on Encounter: 6 - 10 minutes documented in this encounter Plan of Treatment Upcoming Encounters Date Type Department Care Team (Late st Contact Info) Description 08/24/2023 7:00 AM EDT Laboratory Laboratory, [address], [place] [phone] [facility], Lab [address] [place] [address] 08/24/2023 8:00 AM EDT Immunization/Injection Hematology/Oncology Treatment, [address] [place] [address] [facility], Chair1 Hem Onc [address] [place] [address], [place] [address] 08/27/2023 10:30 AM EDT Laboratory Laboratory, [address] [phone] [facility], Lab [address] [place] [address] 08/27/2023 11:30 AM EDT Office Visit Hematology/Oncology, [address] [address] Lakeshia Stone CRNP [address] [place] [address] [place] [address] 08/31/2023 10:00 AM EDT Laboratory Laboratory [facility] [place] [facility] [facility] [place] [phone] [place], Lab [address] [facility] [place] [address] 09/04/2023 10:00 AM EDT Laboratory Laboratory, [address] [address] [facility], Lab [address] [place] [address] [place] [address] 09/04/2023 11:00 AM EDT Telemedicine Hematology/Oncology, [address] [address] Mike Chaudhary MD [address] [place] [address] Cart, Telemed [facility] Hem Onc Clinic [address] [place] [address] 09/07/2023 7:15 AM EDT Nurse Only Hematology Oncology [place] [address] [place] [address] [place], Nurse Lab Hem/Onc [address] [place] [address] 09/07/2023 8:00 AM EDT Hem/Onc Treatment Hematology Oncology [place] [address] [place] [address] [place], Chair 19 Hem/Onc [address] [place] [address] 09/07/2023 2:00 PM EDT Appointment Radiology, [address] [phone] 09/09/2023 11:00 AM EDT Hem/Onc Treatment Hematology/Oncology Treatment, [address] [address] [facility], Chair1 Hem Onc [address] [place] [address] [place] [address] 09/09/2023 1:00 PM EDT Office Visit Palliative Medicine, [address] 5th [place] [address] Aury Silva MD [address] [place] [address] 09/11/2023 9:00 AM EDT Nurse Only Hematology Oncology [facility], [address] [address] [place], Nurse Lab Hem/Onc [address] [place] [address] 09/11/2023 10:00 AM EDT Hem/Onc Treatment Hematology Oncology [facility], [address] [address] [place], Chair 19 Hem/Onc [address] [place] [address] 09/11/2023 2:00 PM EDT Appointment Radiology, [address] [address] 09/14/2023 7:00 AM EDT Laboratory Laboratory, [address] [address] [facility], Lab [address] [place] [address] 09/14/2023 8:00 AM EDT Immunization/Injection Hematology/Oncology Treatment, [address] [address] [facility], Chair1 Hem Onc [address] [place] [address] 09/18/2023 10:00 AM EDT Laboratory Laboratory, [address] [phone] [facility], Lab [address] [place] [address] 09/18/2023 11:00 AM EDT Telemedicine Hematology/Oncology, [facility] [address] [place] [address] Mike Chaudhary MD [address] [place], [place] [phone] Cart, Telemed [facility] Hem Onc Clinic [address] [place], [place] [phone] 09/25/2023 2:40 PM EDT Office Visit Rheumatology [place] [address] [address], [place] [address] Oliver Zhang MD [facility] [employer] [facility], [place] [address] 02/19/2024 12:00 PM EST Office Visit [facility] [place] [address] [place] [address] Kayla Reeder DO [address] [place] [address] Health Maintenance Due Date Last Done Comments COVID-19 Vaccine (#1) 1993 Influenza Vaccine (FLU shot) (#1) 2023 11/17/2016, 11/17/2016, 11/30/2015, Additional history exists Depression Screening 07/07/2024 07/08/2023, 06/11/19 24 Albumin/Creatinine Ratio Discontinued 08/02/2021 documented as of this encounter Medical Devices Implanted Type Area Beam Department Supervisor Device Identifier Shelf Expiration Date Model / Serial / Lot Mediport Pwr Mri 8fr [id number] - [id number] Implanted:Qty : 1 on 07/17/2023 by Medhat Angel MD at OR [facility] Right: Chest CR BARD : PERIPHERAL VASCULAR 07/16/2024 [id number] / / [id number] Port Implant W8f Poly Cath - [id number] Implanted:Qty : 1 on 07/17/2023 by Medhat Angel MD at OR [facility] CR BARD : PERIPHERAL VASCULAR [id number] 07/16/2024 [id number] / / [id number] documented as of this encounter Advance Directives [...] Agents on File Name Relationship Healthcare Agent [facility] Communication Trixie Le [facility] Repr esentative (appointed verbally by patient or by statute hierarchy) [email or web address] Care Teams Gear Machine Operator General Relationship Specialty Start Date End Date Kayla Reeder DO [address] [facility] [place] [address] PCP - General Family Medicine 06/11/23 documented as of this encounter
--- OUTSIDE RECORDS SUMMARY | 2023-09-18 21:22 | External Medical Summary ---
Author Name Unknown Address Unknown Organization K1F:LABORATORY [facility] - [address]. [place] [address] Laboratory Report Ordering Provider Test Date Status MATTI BARAJAS 08/24/2023 07:56:29 Final Observation Date Value Abnormality Reference (Units ) Status SYNC LEUKOCYTES IN BLOOD BY AUTOMATED COUNT 08/24/2023 07:56:29 2.07 Below low normal 4.00-10.80 (K/uL) Final Segs 08/24/2023 07:56:29 80.6 Above high normal 40.0-75.0 (%) Final Lymphs % 08/24/2023 07:56:29 17.4 Below low normal 18.0-42.0 (%) Final Monos 08/24/2023 07:56:29 1.0 1.0-11.0 (%) Final Eosinophils 08/24/2023 07:56:29 0.0 0.0-6.0 (%) Final Basos 08/24/2023 07:56:29 0.5 0.0-2.0 (%) Final Immature Granulocyte, Percent 08/24/2023 07:56:29 0.5 0.0-2.0 (%) Final Absolute Segs 08/24/2023 07:56:29 1.67 Below low normal 1.80-7.70 (K/uL) Final Lymphs, absolute 08/24/2023 07:56:29 0.36 Below low normal 1.00-4.80 (K/ul) Final Monos, Abs 08/24/2023 07:56:29 0.02 0.00-1.10 (K/uL) Final Eos, Abs 08/24/2023 07:56:29 0.00 0.00-0.70 (K/uL) Final Basos, Abs 08/24/2023 07:56:29 0.01 0.00-0.20 (K/uL) Final Immature Granulocytes, Number 08/24/2023 07:56:29 0.01 0.00-0.20 (K/uL) Final Performing Location LABORATORY [facility] - [facility] [address]y [address]. [place] [address]
--- OUTSIDE RECORDS SUMMARY | 2023-09-18 21:22 | External Medical Summary ---
Author Name Unknown Address Unknown Organization K1F:LABORATORY [facility] - [address] [place] [address] Laboratory Report Ordering Provider Test Date Status MATTI BARAJAS 08/24/2023 07:56:29 Final Observation Date Value Abnormality Reference (Units ) Status WBC, Total 08/24/2023 07:56:29 2.07 Below low normal 4.00-10.80 (K/uL) Final RBC 08/24/2023 07:56:29 2.47 4.50-5.25 (M/uL) Final Hemoglobin 08/24/2023 07:56:29 7.6 Below low normal 14.0-16.8 (g/dL) Final HCT 08/24/2023 07:56:29 23.1 Below low normal 40.0-48.4 (%) Final MCV 08/24/2023 07:56:29 93.5 82.0-99.5 (fL) Final MCH 08/24/2023 07:56:29 30.8 27.0-34.0 (pg) Final MCHC 08/24/2023 07:56:29 32.9 32.0-36.0 (g/dL) Final RDW 08/24/2023 07:56:29 18.3 11.5-15.5 (%) Final Platelets 08/24/2023 07:56:29 139 Below low normal 140-400 (K/uL) Final MPV 08/24/2023 07:56:29 9.4 6.6-11.1 (fL) Final Nucleated erythrocytes/100 leukocytes [Ratio] in Blood by Automated count 08/24/2023 07:56:29 0 <=0 (/100 WBCs) Final Performing Location LABORATORY [facility] - [address] [place] [place] [address]
--- OUTSIDE RECORDS SUMMARY | 2023-09-18 21:22 | External Medical Summary | Summary of Care ---
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) Procedures NV DOXORUBIC HCL 10 MG VL CHEMO NV VINCRISTINE SULFATE 1 MG INJ NV FOSAPREPITANT INJECTION NV ETOPOSIDE 10 MG INJ NV INJECTION, RITUXIMAB-PVVR, BIOSIMILAR, (RUXIENCE), 10 MG NV INJ, NYVEPRIA NV INJ, CYCLOPHOSPHAMIDE, NOS Wilfredo, Elvis Ray MD [address] [facility] [place] [address] Anc Hem[facility]Onc [facility] [address] [facility] [place] [address] Referral ID Status Reason Start Date Expiration Date V isits Requested Visits Authorized [id number] Authorized 07/23/2023 01/22/[phone] Encounter Details Date Type Department Care Team (Latest Contact Info) Description 08/19/2023 11:00 AM EDT Hem/Onc Treatment Hematology/Oncolog y Treatment, [facility] [address] [facility] [place] [address] [facility], Chair3 Hem Onc [address] [place] [address], [place] [address] Encounter for antineoplastic chemotherapy*; Burkitt lymphoma of [...] for Pain, Breakthrough. 30 Tablet 08/14/2023 Active HYDROmorphone HCl 2 MG Oral Tablet (Dilaudid)Indicatio [...] 07/08/2023 Does the household have a [facility] source of income? (Household - [...] Sign Reading Time Taken Comments Blood Pressure 126/80 08/19/2023 10:58 AM EDT Pulse 89 08/19/2023 10:58 AM EDT Temperature 35.5 C (95.9 F) 08/19/2023 10:58 AM E DT Respiratory Rate 20 08/19/2023 10:58 AM EDT Oxygen Saturation - - Inhaled Oxygen Concentration - - Weight 112.7 kg (248 lb 8 oz) 08/19/2023 10:58 A M EDT Height - - Body Mass Index 34.66 08/17/2023 7:33 AM EDT documented in this encounter Functional [...] as of this encounter Nursing Notes * Marilee Samuel, RN - 08/19/2023 1:24 PM EDT Patient left IVC by ambulating. Accompanied by Family. Voiced no complaints. Marilee Samuel RN 08/19/2023 1:24 PM * Roula Ramirez RN - 08/19/2023 12:11 PM EDT 1158 - 48 hour chemo bag started at this time. Roula Ramirez RN 08/19/2023 12:12 PM * Marilee Samuel RN - 08/19/2023 11:17 AM EDT Chair # 7 Chemotherapy/Immunotherapy agents: Etoposide/Vincristine/Adriamycin Consent for chemotherapy drug treatment complete, dated, and signed? yes, date - 07/01/23 Treatment lab parameters met? Yes Has treatment weight changed > than 10%? No Treatment preauthorized? Yes VITALS Filed Vitals: 08/19/23 1058 BP: 126/80 Pulse: 89 Resp: 20 Temp: 35.5 C (95.9 F) Weight: 112.7 kg (248 lb 8 oz) Urine protein: N/A Patient education completed for treatment? Yes Blood transfusion consent signed and complete? Yes Return appointment scheduled? Yes Patient had provider [...] symptoms or adverse side effects during treatment. Appetite -denies Nausea/Vomiting -denies Diarrhea -denies Constipation -denies Mucositis -denies Fatigue -denies Bleeding -denies Infection -denies Rash -denies Numbness tingling -denies Pain -denies Radiation N/A ABN Labs -all labs completed 08/17/23 Alt in Tx: -none Return in 08/21/23 in [place] IVF started at 1107 via peripheral IV. documented in this encounter Plan of Treatment Upcoming Encounters Date Type Department Care Team (Late st Contact Info) Description 08/21/2023 2:00 PM EDT Hospital Encounter Radiology, [place] [address] [place] [facility] [place] [address] 08/24/2023 7:00 AM EDT Laboratory Laboratory, [address] [place] [address] [facility], Lab [address] [place], [place] [address] [address] 08/24/2023 8:00 AM EDT Immunization/Injection Hematology/Oncology Treatment, [address] [place] [address] [facility], Chair1 Hem Onc [address] [place], [place] [address] [address] 08/27/2023 10:30 AM EDT Laboratory Laboratory, [address] [phone] [facility], Lab [address] [place] [address] 08/27/2023 11:30 AM EDT Office Visit Hematology/Oncology, [address] [address] Lakeshia Stone CRNP [address] [place] [address] 08/31/2023 10:00 AM EDT Laboratory Laboratory [facility] [place] [address] [place] [phone] [place] [address] [place] [address] 09/04/2023 10:00 AM EDT Laboratory Laboratory, [address] [phone] [facility], Lab [address] [place] [address] 09/04/2023 11:00 AM EDT Telemedicine Hematology/Oncology, [address] [address] Mike Chaudhary MD [address] [facility], [place] [phone] Herve Hurtadoed [facility] Hem Onc Clinic [address] [place] [address] 09/07/2023 7:15 AM EDT Nurse Only Hematology Oncology [facility] [address] [place] [address] [place], Nurse Lab Hem/Onc [address] [place] [address] 09/07/2023 8:00 AM EDT Hem/Onc Treatment Hematology Oncology [facility], [place] [address] [place] [address] [place], Chair 19 Hem/Onc [address] [place] [address] 09/07/2023 2:00 PM EDT Appointment Radiology, [address] [phone] 09/09/2023 11:00 AM EDT Hem/Onc Treatment Hematology/Oncology Treatment, [address] [address] [facility], Chair1 Hem Onc [address] [place] [address] 09/09/2023 1:00 PM EDT Office Visit Palliative Medicine, [address] 5th [place] [address] Aury Silva MD [address] [place] [address] 09/11/2023 9:00 AM EDT Nurse Only Hematology Oncology [facility], [address] [address] [place], Nurse Lab Hem/Onc [address] [place] [address] 09/11/2023 10:00 AM EDT Hem/Onc Treatment Hematology Oncology [facility], [address] [address] [place], Chair 19 Hem/Onc [address] [place] [address] 09/11/2023 2:00 PM EDT Appointment Radiology, [place] [address] [place] [address] 09/14/2023 7:00 AM EDT Laboratory Laboratory, [address] [phone] [facility], Lab [address] [place] [address] 09/14/2023 8:00 AM EDT Immunization/Injection Hematology/Oncology Treatment, [address] [address] [facility], Chair1 Hem Onc [address] [place] [address] 09/18/2023 10:00 AM EDT Laboratory Laboratory, [address] [phone] [facility], Lab [address] [place] [address] 09/18/2023 11:00 AM EDT Telemedicine Hematology/Oncology, [address] [address] Mike Chaudhary MD [address] [place] [address] Cart, Telemed [facility] Hem Onc Clinic [address] [place] [address] 09/25/2023 2:40 PM EDT Office Visit Rheumatology [place] [address] [facility] [place] [address] Oliver Zhang MD [address] [place] [address] [place] [address] 02/19/2024 12:00 PM EST Office Visit [facility], [place] [address] [place] [address] Kayla Reeder DO [address] [place] [address] Health Maintenance Due Date Last Done Comments COVID-19 Vaccine (#1) 1993 Influenza Vaccine (FLU shot) (#1) 2023 11/17/2016, 11/17/2016, 11/30/2015, Additional history exists Depression Screening 07/07/2024 07/08/2023, 06/11/19 24 Albumin/Creatinine Ratio Discontinued 08/02/2021 documented as of this encounter Medical Devices Implanted Type Area Innovation Analyst Device Identifier Shelf Expiration Date Model / Serial / Lot Mediport Pwr Mri 8fr [id number] - [id number] Implanted:Qty : 1 on 07/17/2023 by Medhat Angel MD at OR [facility] Right: Chest CR BARD : PERIPHERAL VASCULAR 07/16/2024 [id number] / / [id number] Port Implant W8f Poly Cath - [id number] Implanted:Qty : 1 on 07/17/2023 by Medhat Angel MD at OR [facility] CR BARD : PERIPHERAL VASCULAR [id number] 07/16/2024 [id number] / / [id number] documented as of this encounter Visit Diagnoses Diagnosis Encounter for antineoplastic chemotherapy- Primary 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 Administer through 0.22 micron low protein binding filter! Home Infusion Pharmacy to specify base solution and volume. To be given over 48 hours every other day for 4 days (2 bags) through home infusion company., CONTINUOUS, Starting on 7/3/24 at 1230, Until Thu08/19/23 at 1725 Start Infusion 08/19/2023 11:58 AM EDT 31.2 mL/hr NSS infusion FOR HYDRATION Intravenous, at 500 mL/hr Administer over 2 Hours, ONCE, 1 dose, On Thu08/19/23 at 1130 Start Infusion 08/19/2023 11:07 AM EDT 1,000 mL 500 mL/hr documented in this encounter Advance Directives [...] Name Relationship Healthcare Agent [facility] Communication Trixie Le [facility] Repr esentative (appointed verbally by patient or by statute hierarchy) [email or web address] Care Teams Manager Competitive Intelligence Relationship Specialty Start Date End Date Kayla Reeder DO [address] [facility] [place] [address] PCP - General Family Medicine 06/11/23 documented as of this encounter
--- OUTSIDE RECORDS SUMMARY | 2023-09-18 21:22 | External Medical Summary | Summary of Care ---
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) Procedures NC DOXORUBIC HCL 10 MG VL CHEMO NC VINCRISTINE SULFATE 1 MG INJ NC FOSAPREPITANT INJECTION NC ETOPOSIDE 10 MG INJ NC INJECTION, RITUXIMAB-PVVR, BIOSIMILAR, (RUXIENCE), 10 MG NC INJ, NYVEPRIA NC INJ, CYCLOPHOSPHAMIDE, NOS Elvis Villalobos MD [address] [facility] [place] [address] Anc [facility]c [facility] [address] [facility] [place] [address] Referral ID Status Reason Start Date Expiration Date V isits Requested Visits Authorized [id number] Authorized 07/23/2023 01/22/2024 [id number] Encounter Details Date Type Department Care Team ([facility] st Contact Info) Description 08/24/2023 8:00 AM EDT Immunization/ Injection Hematology/Oncology Treatment, [facility] [place] [id number] [facility], Chair1 Hem Onc [address] [facility] [place] [address] Encounter for antineoplastic chemotherapy*; Burkitt lymphoma of [...] López LPN - 08/24/2023 8:38 AM EDT [place] 3 Nyve[facility]a given SQ left arm. Patient left IVC by ambulating. Accompanied by Family. Voiced no complaints. Radha López LPN 08/24/2023 8:38 AM documented in this encounter Plan of Treatment Upcoming Encounters Date Type Department Care Team (Late st Contact Info) Description 08/27/2023 10:30 AM EDT Laboratory Laboratory, [address] [phone] [facility], Lab [address] [place] [address] [place] [address] 08/27/2023 11:30 AM EDT Office Visit Hematology/Oncology, [address] [place] [address] Lakeshia Stone CRNP [address] [facility] [address] 08/31/2023 10:00 AM EDT [facility] [facility] ER[facility] [place] [phone] [place], Lab [facility] [address] [facility] ERNST [place] [address] 09/04/2023 10:00 AM EDT Laboratory Laboratory, [address] [place] [phone] [facility], Lab [address] [place], [place] [address]ERN[place] [address] 09/04/2023 11:00 AM EDT Telemedicine Hematology/Oncology, [facility] [address] Mike Chaudhary MD [facility] [place] [address] Herve Hurtadoed [facility] Hem Onc Clinic [address] [place] [address] 09/07/2023 7:15 AM EDT Nurse Only Hematology Oncology [facility], [address] [address] [place], Nurse Lab Hem/Onc [address] [place] [address] 09/07/2023 8:00 AM EDT Hem/Onc Treatment Hematology Oncology [address] [address] [place], Chair 19 Hem/Onc [address] [place] [address] 09/07/2023 2:00 PM EDT Appointment Radiology, [address] [phone] 09/09/2023 11:00 AM EDT Hem/Onc Treatment Hematology/Oncology Treatment, [address] [address] [facility], Chair1 Hem Onc [address] [place] [address] 09/09/2023 1:00 PM EDT Office Visit Palliative Medicine, [address] [place] [address] Aury Silva MD [address] [place] [address] 09/11/2023 9:00 AM EDT Nurse Only Hematology Oncology [facility], [address] [address] [place], Nurse Lab Hem/Onc [address] [place] [address] 09/11/2023 10:00 AM EDT Hem/Onc Treatment Hematology Oncology [facility], [address] [address] [place], Chair 19 Hem/Onc [address] [place] [address] 09/11/2023 2:00 PM EDT Appointment Radiology, [address] [phone] 09/14/2023 7:00 AM EDT Laboratory Laboratory, [address] [phone] [facility], Lab [address] [place] [address] 09/14/2023 8:00 AM EDT Immunization/Injection Hematology/Oncology Treatment, [address] [address] [facility], Chair1 Hem Onc [address] [place] [address] 09/18/2023 10:00 AM EDT Laboratory Laboratory, [address] [phone] [facility], Lab [address] [place] [address] 09/18/2023 11:00 AM EDT Telemedicine Hematology/Oncology, [address] [address] Mike Chaudhary MD [facility] [place] [address] Cart, Telemed [facility] Hem Onc Clinic [address] [facility] ERNST [place] [address] 09/25/2023 2:40 PM EDT Office Visit Rheumatology [address] [place] [address] Oliver Zhang MD [facility] [place] [address] 02/19/2024 12:00 PM EST Office Visit Family Practice [address], [place] [address] [place] [address] Kayla Reeder DO [address] ER[address] [place] [address] Health Maintenance Due Date Last Done Comments COVID-19 Vaccine (#1) 1993 Influenza Vaccine (FLU shot) (#1) 2023 11/17/2016, 11/17/2016, 11/30/2015, Additional history exists Depression Screening 07/07/2024 07/08/2023, 06/11/19 24 Albumin/Creatinine Ratio Discontinued 08/02/2021 documented as of this encounter Medical Devices Implanted Type Area Hand Weaver Device Identifier Shelf Expiration Date Model / Serial / Lot Mediport Pwr Mri 8fr [id number] - [id number] Implanted:Qty : 1 on 07/17/2023 by Medhat Angel MD at OR [facility] Right: Chest CR BARD : PERIPHERAL VASCULAR 07/16/2024 [id number] / / [id number] Port Implant W8f Poly Cath - [id number] Implanted:Qty : 1 on 07/17/2023 by Medhat Angel MD at OR [facility] CR BARD : PERIPHERAL VASCULAR [id number] 07/16/2024 [id number] / / [id number] documented as of this encounter Visit Diagnoses [...] on File Name Relationship Healthcare Agent [facility] p Communication Trixie Le [facility] Repr esentative (appointed verbally by patient or by statute hierarchy) [email or web address] Care Teams Tire Shop Mechanic Relationship Specialty Start Date End Date Kayla Reeder DO [address] [facility] ERNST [place] [address] PCP - General Family Medicine 06/11/23 documented as of this encounter
--- OUTSIDE RECORDS SUMMARY | 2023-09-18 21:22 | External Medical Summary | Summary of Care ---
Author Name Unknown Organization [facility] Address [address] [place] [address] Phone [phone] Care Team Providers Care Brick Siding Applicator Name Role Phone Kayla Reeder DO Primary Care Provider +1- [phone] Encounter Details Date Type Department Care Team (Latest Contact Info) Description 08/21/2023 2:00 PM EDT - 08/21/2023 11:59 PM EDT Hospital Encounter Radiology, [place] [address] [place] [address] Arrived Discharge Disposition: Home - Self Care Allergies No known active allergiesdocumented as of this encounter (statuses as of 08/22/2023) Medications Medication Sig Dispensed Refills Start Date [...] as of this encounter (statuses as of 08/22/2023) Active Problems 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 Overview: Follows in [place] q6m History of petit-mal seizures 03/07/2016 Tobacco use disorder 01/01/2016 Migraine with aura and witho ut status migrainosus, not intractable 12/18/2014 Gastroesophageal reflux disease with esophagitis 12/18/2014 Adjustment disorder with depressed mood 08/15/19 10 documented as of this encounter (statuses as of 08/22/2023) Resolved Problems Problem Noted Date Diagnosed Date [...] as of this encounter (statuses as of 08/22/2023) Immunizations Name Administration Dates Next Due DT [...] Sign Reading Time Taken Comments Blood Pressure 122/62 08/21/2023 3:45 PM EDT Pulse 63 08/21/2023 3:45 PM EDT Temperature - - Respiratory Rate 16 08/21/2023 3:45 PM EDT Oxygen Saturation 100% 08/21/2023 3:45 PM EDT Inhaled Oxygen Concentration - [...] as of this encounter Nursing Notes * Jasmine Ordonez, RN - 08/21/2023 2:00 PM EDT DISCHARGE - POST INTERVENTIONAL RADIOLOGY PROCEDURE Patient meets discharge criteria for Interventional Radiology. Vital signs stable. Dressing clean, dry, and intact. Patient awake and oriented to pre procedure baseline. Discharge instructions given,no questions at this time. Patient tolerating liquids, with no nausea/vomiting. All belongings sentwith patient. Discharged to home at [address] Jaramillo Vital Signs: BP: 126/83 (08/21/23 1530) Pulse: 79 (08/21/23 1515) Resp: 18 (08/21/23 1530) SpO2: 97 % (08/21/23 1530) Neurological: Harrietta Coma Scale Eyes Open: Spontaneous (08/21/23 1515) Best Verbal Response: Verbally appropriate for age (08/21/23 1515) Best Motor Response: Obeys commands appropriate for age (08/21/23 1515) Coma Score: 15 (08/21/23 1515) Respiratory: Pain Assessment No data to display documented in this encounter Plan of Treatment Upcoming Encounters Date Type Department Care Team (Late st Contact Info) Description 08/24/2023 7:00 AM EDT Laboratory Laboratory, [address] [place] [phone] [facility], Lab [address] [place] [address] 08/24/2023 8:00 AM EDT Immunization/Injection Hematology/Oncology Treatment, [address] [place] [address] [facility], Chair1 Hem Onc [address] [place] [address] [place] [address] 08/27/2023 10:30 AM EDT Laboratory Laboratory, [address] [place] [address] [facility], Lab [address] [place] [address] [place] [address] 08/27/2023 11:30 AM EDT Office Visit Hematology/Oncology, [address] [place] [address] Lakeshia Stone CRNP [address] [place] [address] [place] [address] 08/31/2023 10:00 AM EDT Laboratory Laboratory [address], [place] [address] [facility] ERNST [place] [phone] [place], Lab [facility] [address] [facility] ERNST [place] [address] 09/04/2023 10:00 AM EDT Laboratory Laboratory, [address] [place] [address] [facility], Lab [address] [place] [address] 09/04/2023 11:00 AM EDT Telemedicine Hematology/Oncology, [address] [address] Mike Chaudhary MD [address] [place] [address] Cart, Telemed [facility] Hem Onc Clinic [address] [place] [address] 09/07/2023 7:15 AM EDT Nurse Only Hematology Oncology [address] [address] [place], Nurse Lab Hem/Onc [address] [place] [address] 09/07/2023 8:00 AM EDT Hem/Onc Treatment Hematology Oncology [address] [address] [facility], Chair 19 Hem/Onc [address] [place] [address] 09/07/2023 2:00 PM EDT Appointment Radiology, [address] [phone] 09/09/2023 11:00 AM EDT Hem/Onc Treatment Hematology/Oncology Treatment, [address] [address] [facility], Chair1 Hem Onc [address] [place] [address] 09/09/2023 1:00 PM EDT Office Visit Palliative Medicine, [address] [place] [address] Aury Silva MD [address] [place] [address] 09/11/2023 9:00 AM EDT Nurse Only Hematology Oncology [facility], [address] [address] [place], Nurse Lab Hem/Onc [address] [place] [address] 09/11/2023 10:00 AM EDT Hem/Onc Treatment Hematology Oncology [facility], [address] [address] [place], Chair 19 Hem/Onc [address] [place] [address] 09/11/2023 2:00 PM EDT Appointment Radiology, [address] [address] 09/14/2023 7:00 AM EDT Laboratory Laboratory, [address] [phone] [facility], Lab [address] [place] [address] 09/14/2023 8:00 AM EDT Immunization/Injection Hematology/Oncology Treatment, [address] [address] [facility], Chair1 Hem Onc [address] [place] [address] 09/18/2023 10:00 AM EDT Laboratory Laboratory, [address] [phone] [facility], Lab [address] [place] [address] 09/18/2023 11:00 AM EDT Telemedicine Hematology/Oncology, [facility] [address] [place] [address] Mike Chaudhary MD [address] [place] [address] Cart, Telemed [facility] Hem Onc Clinic [address] [facility] [address] 09/25/2023 2:40 PM EDT Office Visit [facility]umatology [address] [place] [address] Oliver Zhang MD [facility] [employer] [place] [address] 02/19/2024 12:00 PM EST Office Visit Family Practice [facility] [address] [facility] ERNST [place] [address] Kayla Reeder DO [address] [place] [address] Health Maintenance Due Date Last Done Comments COVID-19 Vaccine (#1) 1993 Influenza Vaccine (FLU shot) (#1) 2023 11/17/2016, 11/17/2016, 11/30/2015, Additional history exists Depression Screening 07/07/2024 07/08/2023, 06/11/19 24 Albumin/Creatinine Ratio Discontinued 08/02/2021 documented as of this encounter Medical Devices Implanted Type Area Rn Post Partum Device Identifier Shelf Expiration Date Model / Serial / Lot Mediport Pwr Mri 8fr [id number] - [id number] Implanted:Qty : 1 on 07/17/2023 by Medhat Angel MD at OR [facility] Right: Chest CR BARD : PERIPHERAL VASCULAR 07/16/2024 [id number] / / [id number] Port Implant W8f Poly Cath - [id number] Implanted:Qty : 1 on 07/17/2023 by Medhat Angel MD at OR [facility] BARD : PERIPHERAL VASCULAR [id number] 07/16/2024 [id number] / / [id number] documented as of this encounter Procedures Procedure Name Priority Date/Time Associated Diagnosis Comments FLUORO GUIDED CHEMO ADMIN INTO DISCHARGING MACHINE OPERATOR STAT 08/21/2023 3:19 PM EDT 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 I have personally reviewed this examination and agree with the resident/fellow physician's interpretation. Narrative 08/21/2023 4:08 PM EDT EXAM FLUORO GUIDED CHEMO ADMIN INTO DISCHARGING MACHINE OPERATOR-08/21/2023 3:19 pm HISTORY 32 y/o M with IT methotrexate. COMPARISON Fluoroscopic guided lumbar puncture dated 08/17/2023. TECHNIQUE PHYSICIANS: Dr. Jaramillo (attending); Dr. Rhodes (resident) TIME OUT, PATIENT IDENTIFICATION, AND CONSENT: A time out procedure was performed at 2:23 p.m. in the presence of RT Michael. The patient's identification was verified. The risks, benefits, and alternatives to the procedure were discussed with the patient who then gave both written and verbal consent. Informed consent with agreement of procedure, site, and position was obtained. Verbalized procedure matches the written consent. All necessary equipment was available prior to the procedure. DESCRIPTION OF THE PROCEDURE: LUMBAR PUNCTURE: The patient was placed prone on the fluoroscopy table and under intermittent fluoroscopic guidance the left L3-4 interlaminar space was localized. The patient was prepped and draped in the usual sterile fashion. 1% percent lidocaine was injected into the skin at the access site for local anesthesia. A 22 gauge 4.75 in spinal needle and stylet were advanced into the thecal sac under intermittent fluoroscopic guidance. Clear CSF was returned. ADMINISTRATION OF CHEMOTHERAPY: METHOtrexate Sodium (PF) 50 MG/2ML 12 mg in sodium chloride 0.9 % 5 mL intrathecal was slowly administered. The stylet was replaced and the needle was removed. There were no immediate post procedure complications. ATTESTATION: Dr. Jaramillo was present throughout the procedure without overlapping cases. FINDINGS As above. Procedure Note Gregorio Jaramillo MD - 08/21/2023 EXAM FLUORO GUIDED CHEMO ADMIN INTO DISCHARGING MACHINE OPERATOR-08/21/2023 3:19 pm HISTORY 32 y/o M with IT methotrexate. COMPARISON Fluoroscopic guided lumbar puncture dated 08/17/2023. TECHNIQUE PHYSICIANS: Dr. Jaramillo (attending); Dr. Rhodes (resident) TIME OUT, PATIENT IDENTIFICATION, AND CONSENT: A time out procedure wasperformed at 2:23 p.m. in the presence of RT Michael. The patient'sidentification was verified. The risks, benefits, and alternatives to theprocedure were discussed with the patient who then gave both written andverbal consent. Informed consent with agreement of procedure, site, andposition was obtained. Verbalized procedure matches the written consent.All necessary equipment was available prior to the procedure. DESCRIPTION OF THE PROCEDURE: LUMBAR PUNCTURE: The patient was placed prone on the fluoroscopy table andunder intermittent fluoroscopic guidance the left L3-4 interlaminar spacewas localized. The patient was prepped and draped in the usual sterilefashion. 1% percent lidocaine was injected into the skin at the accesssite for local anesthesia. A 22 gauge 4.75 in spinal needle and styletwere advanced into the thecal sac under intermittent fluoroscopicguidance. Clear CSF was returned. ADMINISTRATION OF CHEMOTHERAPY: METHOtrexate Sodium (PF) 50 MG/2ML 12 mgin sodium chloride 0.9 % 5 mL intrathecal was slowly administered. The stylet was replaced and the needle was removed. There were noimmediate post procedure complications. ATTESTATION: Dr. Jaramillo was present throughout the procedure withoutoverlapping cases. FINDINGS As above. IMPRESSION IMPRESSION Successful fluoroscopically guided lumbar puncture for administration ofintrathecal chemotherapy. I have personally reviewed this examination [...] 650 mg 650 mg, Oral, ONCE, On Thu08/21/23 at 1542, For 1 dose, Maximum of 4 grams (4000 mg) per day. Given 08/21/2023 3:39 PM EDT 650 mg METHOtrexate Sodium (PF) 50 MG/2ML 12 mg in sodium chloride 0.9 % 5 mL intrathecal 12 mg, Intrathecal, Administer over 3 Minutes, FOR INTRATHECAL ADMINISTRATION Protect from Light! IR at 1400, ONCE, 1 dose, On Thu08/21/23 at 1454 Given 08/21/2023 2:29 PM EDT 12 mg documented in this [...] Agents on File Name Relationship Healthcare Agent [facility] Communication Trixie Le [facility] Repr esentative (appointed verbally by patient or by statute hierarchy) [email or web address] Care Teams Brick Siding Applicator Relationship Specialty Start Date End Date Kayla Reeder DO [address] [facility] [place]ST [place] [address] PCP - General Family Medicine 06/11/23 documented as of this encounter
--- OUTSIDE RECORDS SUMMARY | 2023-09-18 21:22 | External Medical Summary | Summary of Care ---
Author Name Unknown Organization [facility] Address [address] [place] [address] Phone [phone] Care Team Providers Care Telegraph Lineman Name Role Phone Kayla Reeder DO Primary Care Provider +1- [phone] Reason for Visit * Reason Onset Date Comments Advice 08/22/2023 Encounter Details Date Type Department Care Team ([facility] st Contact Info) Description 08/22/2023 Telephone Family Practice [facility] [address] [place] [address] Kayla Reeder DO [address] [place] [address] Advice Allergies No known active allergiesdocumented as of [...] Tablets before bedtime. 56 Tablet 08/22/2023 Active Potassium Chloride [facility] 10 MEQ [...] encounter Miscellaneous Notes * Telephone Encounter - Tim Batres MD - 08/22/2023 3:08 PM EDT He called the answering service at about 3 PM on 08/22/2023, he says that he would like to call him prescription for oral potassium supplementation. He took last pill yesterday. Currently is on oral potassium supplementation 10 mEq, 2 tablets twice a day. - Potassium level --> 3.2 on 08/21/2023. E-prescribed oral potassium supplementation 10 mEq, 2 tablets twice a day. * Telephone Encounter - Xin Dominguez LPN - 08/22/2023 2:53 PM EDT Looks like previous script was only for 14 days, please advise * Telephone Encounter - Anika Andrews OSA - 08/22/2023 2:36 PM EDT Calling because her son is out of potassium pills. Needs a refill. He has been in ER before and wants to avoid that. Please send refill to [facility] [place]. Needs it madison lyndon. documented in this encounter Plan of Treatment Upcoming Encounters Date Type Department Care Team (Late st Contact Info) Description 08/24/2023 7:00 AM EDT Laboratory Laboratory, [address] [phone] [facility], Lab [address] [place] [address] [place] [address] 08/24/2023 8:00 AM EDT Immunization/Injection Hematology/Oncology Treatment, [address] [address] [facility], Chair1 Hem Onc [address] [place], [place] [address] 08/27/2023 10:30 AM EDT Laboratory Laboratory, [address] [address] [facility] [address] 08/27/2023 11:30 AM EDT Office Visit Hematology/Oncology, [address] [address] Lakeshia Stone CRNP [address] [place] [address] 08/31/2023 10:00 AM EDT Laboratory Laboratory [address], [place] [address] [place] [address] [place], Lab [address] [place] [address] 09/04/2023 10:00 AM EDT Laboratory Laboratory, [address] [phone] [facility], Lab [address] [place] [address] 09/04/2023 11:00 AM EDT Telemedicine Hematology/Oncology, [address] [address] Mike Chaudhary MD [facility] [place] [address] Bryant Telemed [facility] Hem Onc Clinic [address] [place] [address] 09/07/2023 7:15 AM EDT Nurse Only Hematology Oncology [address] [address] [place], Nurse Lab Hem/Onc [address] [place] [address] 09/07/2023 8:00 AM EDT Hem/Onc Treatment Hematology Oncology [address] [address] [place], Chair 19 Hem/Onc [address] [place] [address] 09/07/2023 2:00 PM EDT Appointment Radiology, [address] [address] 09/09/2023 11:00 AM EDT Hem/Onc Treatment Hematology/Oncology Treatment, [address] [address] [facility], Chair1 Hem Onc [address] [place] [address] 09/09/2023 1:00 PM EDT Office Visit Palliative Medicine, [address] 5th [place] [address] Aury Silva MD [address] [place] [address] 09/11/2023 9:00 AM EDT Nurse Only Hematology Oncology [facility], [address] [address] [place], Nurse Lab Hem/Onc [address] [place] [address] 09/11/2023 10:00 AM EDT Hem/Onc Treatment Hematology Oncology [facility], [address] [address] [place], Chair 19 Hem/Onc [address] [place] [address] 09/11/2023 2:00 PM EDT Appointment Radiology, [address] [address] 09/14/2023 7:00 AM EDT Laboratory Laboratory, [address] [phone] [facility], Lab [address] [place] [address] 09/14/2023 8:00 AM EDT Immunization/Injection Hematology/Oncology Treatment, [address] [address] [facility], Chair1 Hem Onc [address] [place] [address] 09/18/2023 10:00 AM EDT Laboratory Laboratory, [address] [phone] [facility], Lab [address] [place] [address] 09/18/2023 11:00 AM EDT Telemedicine Hematology/Oncology, [address] [address] Mike Chaudhary MD [address] [place] [address] Cart, Telemed [facility] Hem Onc Clinic [address] [place] [address] 09/25/2023 2:40 PM EDT Office Visit Rheumatology [address] [address] Oliver Zhang MD [address] [place] [address] 02/19/2024 12:00 PM EST Office Visit Family Practice [address], [place] [address] [place] [place] [address] Kayla Reeder DO [address] [place] [address] Health Maintenance Due Date Last Done Comments COVID-19 Vaccine (#1) 1993 Influenza Vaccine (FLU shot) (#1) 2023 11/17/2016, 11/17/2016, 11/30/2015, Additional history exists Depression Screening 07/07/2024 07/08/2023, 06/11/19 24 Albumin/Creatinine Ratio Discontinued 08/02/2021 documented as of this encounter Medical Devices Implanted Type Area Commercial Driver Device Identifier Shelf Expiration Date Model / Serial / Lot Mediport Pwr Mri 8fr [id number] - [id number] Implanted:Qty : 1 on 07/17/2023 by Medhat Angel MD at OR [facility] Right: Chest CR BARD : PERIPHERAL VASCULAR 07/16/2024 [id number] / / [id number] Port Implant W8f Poly Cath - [id number] Implanted:Qty : 1 on 07/17/2023 by Medhat Angel MD at OR [facility] CR BARD : PERIPHERAL VASCULAR [id number] 07/16/2024 [id number] / / [id number] documented as of this encounter Visit Diagnoses [...] Agents on File Name Relationship Healthcare Agent [facility] p Communication Trixie Le [facility] Repr esentative (appointed verbally by patient or by statute hierarchy) [email or web address] Care Teams Telegraph Lineman Relationship Specialty Start Date End Date Kayla Reeder DO [address] [facility] [place] [address] PCP - General Family Medicine 06/11/23 documented as of this encounter
--- OUTSIDE RECORDS SUMMARY | 2023-09-18 21:23 | External Medical Summary ---
Author Name Unknown Address Unknown Organization K01:[facility]ATORY [facility] - [address] [place] [address] Laboratory Report Ordering Provider Test Date Status MATTI BARAJAS 08/21/2023 09:11:56 Final Observation Date Value Abnormality Reference (Units ) Status LDH 08/21/2023 09:11:56 267 Above high normal <= 250 (U/L) Final Result may be falsely elevat ed due to hemolysis. Performing Location [facility] - [address] [place] [address]
--- OUTSIDE RECORDS SUMMARY | 2023-09-18 21:23 | External Medical Summary ---
Author Name Unknown Address Unknown Organization K[facility] - [address] [place] [address] Laboratory Report Ordering Provider Test Date Status MATTI BARAJAS 08/21/2023 09:11:56 Final Observation Date Value Abnormality Reference (Units ) Status Uric Acid 08/21/2023 09:11:56 5.0 3.4-7.0 (m g/dL) Final Performing Location [facility] - [address] [place] [address]
--- OUTSIDE RECORDS SUMMARY | 2023-09-18 21:23 | External Medical Summary | Summary of Care ---
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) Procedures PA DOXORUBIC HCL 10 MG VL CHEMO PA VINCRISTINE SULFATE 1 MG INJ PA FOSAPREPITANT INJECTION PA ETOPOSIDE 10 MG INJ PA INJECTION, RITUXIMAB-PVVR, BIOSIMILAR, (RUXIENCE), 10 MG PA INJ, NYVEPRIA PA INJ, CYCLOPHOSPHAMIDE, NOS Wilfredo, Elvis Ray MD [address] [facility] [place] [address] Anc Hem/Onc [facility] [place] [address] Referral ID Status Reason Start Date Expiration Date V isits Requested Visits Authorized [id number] Authorized 07/23/2023 01/22/2024 999 [id number] Encounter Details Date Type Department Care Team (Latest Contact Info) Description 08/19/2023 11:00 AM EDT Hem/Onc Treatment Hematology/Oncolog y Treatment, [facility] [address] [facility] [place] [address] [facility], Chair3 Hem Onc [address] [place] [address], [place] [address] Encounter for antineoplastic chemotherapy*; 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 (Household - for ages [...] in Tx: -none Return in 08/21/23 in [place] IVF started at 1107 via peripheral IV. documented in this encounter Plan of Treatment Upcoming Encounters Date Type Department Care Team (Late st Contact Info) Description 08/21/2023 9:00 AM EDT Nurse Only Hematology Oncology [facility], [address] [address] [place], Nurse Lab Hem/Onc [address] [place] [address] 08/21/2023 10:00 AM EDT Hem/Onc Treatment Hematology Oncology [facility], [address] [address] [place], Chair 18 Hem/Onc [address] [place] [address] 08/21/2023 2:00 PM EDT Hospital Encounter Radiology, [address] [address] 08/24/2023 7:00 AM EDT Laboratory Laboratory, [address], [place] [address] [facility], Lab [address] [place] [address], [place] [address] 08/24/2023 8:00 AM EDT Immunization/Injection Hematology/Oncology Treatment, [address], [place] [address] [facility], Chair1 Hem Onc [address] [place] [address], [place] [address] 08/27/2023 10:30 AM EDT Laboratory Laboratory, [address] [place] [address] [facility], Lab [address] [place] [address] 08/27/2023 11:30 AM EDT Office Visit Hematology/Oncology, [address], [place] [address] Lakeshia Stone CRNP [address] [place] [address], [place] [address] 08/31/2023 10:00 AM EDT Laboratory Laboratory [facility], [place] [address] [facility] [place] [phone] [place], Lab [facility] [address] [facility] [place] [address] 09/04/2023 10:00 AM EDT Laboratory Laboratory, [address], [place] [address] [facility], Lab [address] [place] [address] 09/04/2023 11:00 AM EDT Telemedicine Hematology/Oncology, [address] [address] Mike Chaudhary MD [address] [place] [address] Cart, Telemed [facility] Hem Onc Clinic [address] [place] [address] 09/07/2023 7:15 AM EDT Nurse Only Hematology Oncology [address] [address] [place], Nurse Lab Hem/Onc [address] [place] [address] 09/07/2023 8:00 AM EDT Hem/Onc Treatment Hematology Oncology [address] [address] [place], Chair 19 Hem/Onc [address] [place] [address] 09/07/2023 2:00 PM EDT Appointment Radiology, [address] [address] 09/09/2023 11:00 AM EDT Hem/Onc Treatment Hematology/Oncology Treatment, [address] [address] [facility], Chair1 Hem Onc [address] [place] [address] 09/09/2023 1:00 PM EDT Office Visit Palliative Medicine, [address] 5th [place] [address] Aury Silva MD [address] [place] [address] 09/11/2023 9:00 AM EDT Nurse Only Hematology Oncology [facility], [address] [address] [place], Nurse Lab Hem/Onc [address] [place] [address] 09/11/2023 10:00 AM EDT Hem/Onc Treatment Hematology Oncology [facility], [address] [address] [place], Chair 19 Hem/Onc [address] [place] [address] 09/11/2023 2:00 PM EDT Appointment Radiology, [address] [address] 09/14/2023 7:00 AM EDT Laboratory Laboratory, [address] [address] [facility], Lab [address] [place] [address] 09/14/2023 8:00 AM EDT Immunization/Injection Hematology/Oncology Treatment, [address] [address] [facility], Chair1 Hem Onc [address] [place] [address] 09/18/2023 10:00 AM EDT Laboratory Laboratory, [address] [phone] [facility], Lab [address] [place] [address] 09/18/2023 11:00 AM EDT Telemedicine Hematology/Oncology, [address] [address] Mike Chaudhary MD [address] [place] [address] Cart, Telemed [facility] Hem Onc Clinic 400 [facility] [place] [address] 09/25/2023 2:40 PM EDT Office Visit Rheumatology [place] [address] [employer] [place], [place] [address] Oliver Zhang MD [facility] [place] [address] 02/19/2024 12:00 PM EST Office Visit Family [facility] , [place] [address] [place] [address] Kayla Reeder DO [address] [place] [address] Health Maintenance Due Date Last Done Comments COVID-19 Vaccine (#1) 1993 Influenza Vaccine (FLU shot) (#1) 2023 11/17/2016, 11/17/2016, 11/30/2015, Additional history exists Depression Screening 07/07/2024 07/08/2023, 06/11/19 24 Albumin/Creatinine Ratio Discontinued 08/02/2021 documented as of this encounter Medical Devices Implanted Type Area Senior Mortgage Loan Processor Device Identifier Shelf Expiration Date Model / Serial / Lot Mediport Pwr Mri 8fr [id number] - [id number] Implanted:Qty : 1 on 07/17/2023 by Medhat Angel MD at OR [facility] Right: Chest CR BARD : PERIPHERAL VASCULAR 07/16/2024 [id number] / / [id number] Port Implant W8f Poly Cath - [id number] Implanted:Qty : 1 on 07/17/2023 by Medhat Angel MD at OR [facility] CR BARD : PERIPHERAL VASCULAR [id number] 07/16/2024 [id number] / / [id number] documented as of this encounter Visit Diagnoses [...] ONCE PRN Other, Hypersensitivity Reaction, Starting on Thu08/19/23 at 1054, Until Tess 08/20/23 at 1053, For 24 hours EPINEPHrine 1 MG/ML inj 0.3 mg 0.3 mg, Intramuscular, ONCE PRN Other, Hypersensitivity Reaction or Anaphylaxis, Starting on Thu08/19/23 at 1054, Until Tess 08/20/23 at 1053, For 24 hours etoposide (VEPESID) 290 mg, vinCRIStine sulfate 1.9 mg, DOXOrubicin (Adriamycin) [address] [facility] 48 HOUR infusion Intravenous, Administer over 48 Hours, PROTECT FROM LIGHT! Administer through 0.22 micron low protein binding filter! Home Infusion Pharmacy to specify base solution and volume. To be given over 48 hours every other day for 4 days (2 bags) through home infusion company., CONTINUOUS, Starting on Thu08/19/23 at 1230, Until Discontinued Start Infusion 08/19/2023 11:58 AM EDT 31.2 mL/hr hEParin 100 UNIT/ML Lock Flush inj 500 Units 500 Units (5 mL), IV Lock, PRN Other, IV Flush, Starting on Thu08/19/23 at 1054, Until Tess 08/20/23 at 1053, For 24 hours, Do not flush if lock, PICC, or central line not in place; IV infusing or unable to flush. Hydrocortisone Sod Suc (PF) (Solu-Cortef) inj 100 mg 100 mg, IV Push, ONCE PRN Other, Hypersensitivity Reaction, Starting on Thu08/19/23 at 1054, Until Tess 08/20/23 at 1053, For 24 hours LORAzepam (Ativan) tab 0.5 mg 0.5 mg, Oral, ONCE PRN Anxiety, Nausea, Starting on Thu08/19/23 at 1200, Until Discontinued prochlorperazine (Compazine) tab 10 mg 10 mg, Oral, Q6H PRN Nausea, Starting on Thu08/19/23 at 1054, Until Discontinued sodium chloride 0.9 % flush central line 10 mL 10 mL, IV Push, PRN Other, IV Flush, Starting on Thu08/19/23 at 1054, Until Tess 08/20/23 at 1053, For 24 hours, Do not flush if [...] Agents on File Name Relationship Healthcare Agent [facility] Communication Trixie Le [facility] Repr esentative (appointed verbally by patient or by statute hierarchy) [email or web address] General Magistrate Relationship Specialty Start Date End Date Kayla Reeder DO [address] [facility] [place] [address] PCP - General Family Medicine 06/11/23 documented as of this encounter
--- OUTSIDE RECORDS SUMMARY | 2023-09-18 21:23 | External Medical Summary | Summary of Care ---
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 30 Tablet 08/11/2023 Active HYDROmorphone HCl 2 MG Oral Tablet (Dilaudid)Indication s:Cancer related pain Take 1and 1/2 Tablets by mouth every 4 hours as needed for Pain, Moderate or Pain, Severe. 60 Tablet 08/12/2023 Active Morphine Sulfate 15 MG Oral Tablet (Msir)Indications:Ca ncer related pain Take 1 Tablet by mouth every 6 hours as needed for Pain, Breakthrough. 30 Tablet 08/14/2023 Active documented as of this encounter (statuses as of 08/18/2023) Active Problems Problem Noted Date Diagnosed Date [...] as of this encounter (statuses as of 08/18/2023) Resolved Problems Problem Noted Date Diagnosed Date [...] as of this encounter (statuses as of 08/18/2023) Immunizations Name Administration Dates Next Due DT [...] Care Team (Late st Contact Info) Description 08/19/2023 11:00 AM EDT Hem/Onc Treatment Hematology/Oncology Treatment, [address] [address] [facility], Chair3 Hem Onc [address] [place] [address] 08/19/2023 11:00 AM EDT Office Visit Palliative Medicine, [address] 5th [place] [address] Tessa Rubio PA-C [address] [place] [address] 08/21/2023 9:00 AM EDT Nurse Only Hematology Oncology [facility], [place] [address] [place] [address] [place], Nurse Lab Hem/Onc [address] [place] [address] 08/21/2023 10:00 AM EDT Hem/Onc Treatment Hematology Oncology [facility], [address] [address] [place], Chair 18 Hem/Onc [address] [place] [address] 08/21/2023 2:00 PM EDT Hospital Encounter Radiology, [address] [address] 08/24/2023 7:00 AM EDT Laboratory Laboratory, [address] [address] [facility], Lab [address] [place] [address] 08/24/2023 8:00 AM EDT Immunization/Injection Hematology/Oncology Treatment, [address] [address] [facility], Chair1 Hem Onc [address] [place] [address] 08/27/2023 10:30 AM EDT Laboratory Laboratory, [address] [phone] [facility], Lab [address] [place] [address] 08/27/2023 11:30 AM EDT Office Visit Hematology/Oncology, [address] [address] Lakeshia Stone CRNP [address] [place] [address] 08/31/2023 10:00 AM EDT Laboratory Laboratory [facility], [address] [place] [address] [place], Lab [address] [place] [address] 09/04/2023 10:00 AM EDT Laboratory Laboratory, [address] [address] [facility], Lab [address] [place] [address] 09/04/2023 11:00 AM EDT Telemedicine Hematology/Oncology, [address] [address] Mike Chaudhary MD [facility] [address] Cart, Telemed [facility] Hem Onc Clinic [address] [place] [address] 09/07/2023 7:15 AM EDT Nurse Only Hematology Oncology [address] [address] [place], Nurse Lab Hem/Onc [address] [place] [address] 09/07/2023 8:00 AM EDT Hem/Onc Treatment Hematology Oncology [place] [address] [place] [address] [place], Chair 19 Hem/Onc [address] [place] [address] 09/07/2023 2:00 PM EDT Appointment Radiology, [address] [address] 09/09/2023 11:00 AM EDT Hem/Onc Treatment Hematology/Oncology Treatment, [address] [address] [facility], Chair1 Hem Onc [address] [place] [address] 09/11/2023 9:00 AM EDT Nurse Only Hematology Oncology [facility], [address] [address] [place], Nurse Lab Hem/Onc [address] [place] [address] 09/11/2023 10:00 AM EDT Hem/Onc Treatment Hematology Oncology [facility], [address] [address] [place], Chair 19 Hem/Onc [address] [place] [address] 09/11/2023 2:00 PM EDT Appointment Radiology, [address] [address] 09/14/2023 7:00 AM EDT Laboratory Laboratory, [address] [phone] [facility], Lab [address] [place] [address] 09/14/2023 8:00 AM EDT Immunization/Injection Hematology/Oncology Treatment, [address] [place] [address] [facility], Chair1 Hem Onc [address] [place] [address] [place] [address] 09/18/2023 10:00 AM EDT Laboratory Laboratory, [address] [place] [address] [facility], Lab [address] [facility], ERNST [address] 09/18/2023 11:00 AM EDT Telemedicine Hematology/Oncology, [facility] 400 [facility], ERNST [address] Mike Chaudhary MD [address] [place] [address] Cart, Telemed [facility] Hem Onc Clinic [address] [facility] [address] 09/25/2023 2:40 PM EDT Office Visit Rheumatology [place] [address] [employer] [place], [place] [address] Oliver Zhang MD [facility] [employer] [place], [place] [address] 02/19/2024 12:00 PM EST Office Visit Family Practice [facility], [place] [address] [facility] [place] [address] Kayla Reeder DO [address] [facility] [place] [address] Health Maintenance Due Date Last Done Comments COVID-19 Vaccine (#1) 1993 Influenza Vaccine (FLU shot) (#1) 2023 11/17/2016, 11/17/2016, 11/30/2015, Additional history exists Depression Screening 07/07/2024 07/08/2023, 06/11/19 24 Albumin/Creatinine Ratio Discontinued 08/02/2021 documented as of this encounter Medical Devices Implanted Type Area Hat And Cap Drying Room Attendant Device Identifier Shelf Expiration Date Model / Serial / Lot Mediport Pwr Mri 8fr [id number] - [id number] Implanted:Qty : 1 on 07/17/2023 by Medhat Angel MD at OR [facility] Right: Chest CR BARD : PERIPHERAL VASCULAR 07/16/2024 [id number] / / [id number] Port Implant W8f Poly Cath - [id number] Implanted:Qty : 1 on 07/17/2023 by Medhat Angel MD at OR [facility] BARD : PERIPHERAL VASCULAR [id number] 07/16/2024 [id number] / / [id number] documented as of this encounter Visit Diagnoses Diagnosis Encounter for antineoplastic chemotherapy Burkitt lymphoma of [...] Agents on File Name Relationship [facility] Communication Trixie Le [facility] Repr esentative (appointed verbally by patient or by statute hierarchy) [email or web address] Care Teams Olive Grower Relationship Specialty Start Date End Date Kayla Reeder DO [address] [facility] [place]ST [place] [address] PCP - General Family Medicine 06/11/23 documented as of this encounter
--- OUTSIDE RECORDS SUMMARY | 2023-09-18 21:23 | External Medical Summary ---
Author Name Unknown Address Unknown Organization K01:[facility] [employer] [address] Laboratory Report Ordering Provider Test Date Status MATTI BARAJAS 08/21/2023 09:11:56 Final Observation Date Value Abnormality Reference (Units ) Status SYNC LEUKOCYTES IN BLOOD BY AUTOMATED COUNT 08/21/2023 09:11:56 3.54 Below low normal 4.00-10.80 (K/uL) Final Segs 08/21/2023 09:11:56 92.7 Above high normal 40.0-75.0 (%) Final Lymphs % 08/21/2023 09:11:56 5.9 Below low normal 18.0-42.0 (%) Final Monos 08/21/2023 09:11:56 0.8 Below low normal 1.0-11.0 (%) Final Eosinophils 08/21/2023 09:11:56 0.0 0.0-6.0 (%) Final Basos 08/21/2023 09:11:56 0.0 0.0-2.0 (%) Final Immature Granulocyte, Percent 08/21/2023 09:11:56 0.6 0.0-2.0 (%) Final Absolute Segs 08/21/2023 09:11:56 3.28 1.80-7.70 (K/uL) Final Lymphs, absolute 08/21/2023 09:11:56 0.21 Below low normal 1.00-4.80 (K/ul) Final Monos, Abs 08/21/2023 09:11:56 0.03 0.00-1.10 (K/uL) Final Eos, Abs 08/21/2023 09:11:56 0.00 0.00-0.70 (K/uL) Final Basos, Abs 08/21/2023 09:11:56 0.00 0.00-0.20 (K/uL) Final Immature Granulocytes, Number 08/21/2023 09:11:56 0.02 0.00-0.20 (K/uL) Final Performing Location [facility] - [address] [facility] [id number]
--- OUTSIDE RECORDS SUMMARY | 2023-09-18 21:23 | External Medical Summary ---
Author Name Unknown Address Unknown Organization K01[place] [place] [address] [facility] [place] [address] Laboratory Report Ordering Provider Test Date Status MATTI BARAJAS 08/21/2023 09:11:56 Final Observation Date Value Abnormality Reference (Units ) Status BUN 08/21/2023 09:11:56 15 6-20 (mg/dL) Final Creatinine 08/21/2023 09:11:56 0.6 0.6-1.2 (mg/dL) Final Glomerular filtration rate/1.73 sq M.predicted [Volume Rate/Area] in Serum, Plasma or Blood by Creatinine-based formula (CKD-EPI) 08/21/2023 09:11:56 >90 >=60 (mL/min) Final eGFR is calculated based on the CKD-EPI 2020 equation Sodium 08/21/2023 09:11:56 138 135-146 (m mol/L) Final Potassium 08/21/2023 09:11:56 3.2 Below low normal 3.5 -5.1 (mmol/L) Final Cl 08/21/2023 09:11:56 103 98-107 (mm ol/L) Final CO2 08/21/2023 09:11:56 20 Below low normal 22- 32 (mmol/L) Final Anion gap 08/21/2023 09:11:56 15 7-15 (mmol /L) Final Glucose 08/21/2023 09:11:56 136 Above high normal 70 -120 (mg/dL) Final Albumin 08/21/2023 09:11:56 4.1 3.8-5.0 (g /dL) Final AST (Aspartate aminotransferase) 08/21/2023 09:11:56 24 10-50 (U/L) Fin al Alk Phos 08/21/2023 09:11:56 59 35-130 (U/ L) Final Bilirubin, Total 08/21/2023 09:11:56 0.4 <=1 .2 (mg/dL) Final Calcium 08/21/2023 09:11:56 9.5 8.4-10.2 ( mg/dL) Final Protein 08/21/2023 09:11:56 6.2 6.0-8.3 (g /dL) Final ALT (Alanine aminotransferase) 08/21/2023 09:11:56 46 10-50 (U/L) Jaswinder mullen Performing Location [facility] [place] [address] [facility] [place] [address]
--- OUTSIDE RECORDS SUMMARY | 2023-09-18 21:23 | External Medical Summary | Summary of Care ---
Author Name Unknown Organization [facility] Address [address] [place] [address] Phone [phone] Care Team Providers Care Labor Contractor Name Role Phone VarinderBryanKaylaparth Clarke DO Primary Care Provider +1- [phone] Encounter Details Date Type Department Care Team (Late st Contact Info) Description 08/19/2023 Orders Only Hematology Oncology [facility] [address] [place] [address] Mike Chaudhary MD [address] [place] [address] Burkitt lymphoma of intra-abdominal lymph [...] No 07/08/2023 Does the household have a [facility] source of income? (Household - for [...] AM EDT Nurse Only Hematology Oncology [facility], [address] [address] [place], Nurse Lab Hem/Onc [address] [place] [address] 08/21/2023 10:00 AM EDT Hem/Onc Treatment Hematology Oncology [facility], [address] [address] [place], Chair 18 Hem/Onc [address] [place] [address] 08/21/2023 2:00 PM EDT Hospital Encounter Radiology, [address] [phone] 08/24/2023 7:00 AM EDT Laboratory Laboratory, [address] [phone] [facility], Lab [address] [place] [address] 08/24/2023 8:00 AM EDT Immunization/Injection Hematology/Oncology Treatment, [address] [address] [facility], Chair1 Hem Onc [address] [place] [address] 08/27/2023 10:30 AM EDT Laboratory Laboratory, [address] [phone] [facility], Lab [address] [place] [address] 08/27/2023 11:30 AM EDT Office Visit Hematology/Oncology, [address] [address] Lakeshia Stone CRNP [address] [place] [address] 08/31/2023 10:00 AM EDT Laboratory Laboratory [facility], [place] [address] [facility] [place] [phone] [place], Lab [facility] [address] [place] [address] 09/04/2023 10:00 AM EDT Laboratory Laboratory, [address] [phone] [facility], Lab [address] [place] [address] 09/04/2023 11:00 AM EDT Telemedicine Hematology/Oncology, [address] [address] Mike Chaudhary MD [address] [place] [address] Cart, Telemed [facility] Hem Onc Clinic [address] [place] [address] 09/07/2023 7:15 AM EDT Nurse Only Hematology Oncology [facility], [address] [address] [place], Nurse Lab Hem/Onc [address] [place] [address] 09/07/2023 8:00 AM EDT Hem/Onc Treatment Hematology Oncology [facility], [address] [address] [place], Chair 19 Hem/Onc [address] [place] [address] 09/07/2023 2:00 PM EDT Appointment Radiology, [address] [phone] 09/09/2023 11:00 AM EDT Hem/Onc Treatment Hematology/Oncology Treatment, [address] [address] [facility], Chair1 Hem Onc [address] [place] [address] 09/09/2023 1:00 PM EDT Office Visit Palliative Medicine, [address]th [place] [address] Aury Silva MD [address] [place] [address] 09/11/2023 9:00 AM EDT Nurse Only Hematology Oncology [facility], [address] [address] [place], Nurse Lab Hem/Onc [address] [place] [address] 09/11/2023 10:00 AM EDT Hem/Onc Treatment Hematology Oncology [facility], [place] [address] [place] [address] [place], Chair 19 Hem/Onc [address] [place] [address] 09/11/2023 2:00 PM EDT Appointment Radiology, [address] [phone] 09/14/2023 7:00 AM EDT Laboratory Laboratory, [address] [phone] [facility], Lab [address] [place] [address] 09/14/2023 8:00 AM EDT Immunization/Injection Hematology/Oncology Treatment, [address] [address] [facility], Chair1 Hem Onc [address] [place] [address] 09/18/2023 10:00 AM EDT Laboratory Laboratory, [address] [phone] [facility], Lab [address] [place] [address] 09/18/2023 11:00 AM EDT Telemedicine Hematology/Oncology, [address] [address] Mike Chaudhary MD [address] [place] [address] Bryant, Telemed [facility] Hem Onc Clinic [address] [place] [address] 09/25/2023 2:40 PM EDT Office Visit Rheumatology [place] [phone] [facility] [place], [place] [address] Oliver Zhang MD [facility] [employer] Boat [facility] [place], [place] [address] 02/19/2024 12:00 PM EST Office Visit Family Practice [place], [place] [address] [place] [address] Kayla Reeder DO [address] [place] [id number] Scheduled Orders Name Type Priority Associated Diagnoses Orde r Schedule URIC ACID Lab STAT 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) 10 Occurrences starting 08/19/2023 until 08/18/2024 LD Lab STAT 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) 10 Occurrences starting 08/19/2023 until 08/18/2024 Health Maintenance Due Date Last Done Comments COVID-19 Vaccine (#1) 1993 Influenza Vaccine (FLU shot) (#1) 2023 11/17/2016, 11/17/2016, 11/30/2015, Additional history exists Depression Screening 07/07/2024 07/08/2023, 06/11/19 24 Albumin/Creatinine Ratio Discontinued 08/02/2021 documented as of this encounter Medical Devices Implanted Type Area Marketing Analytics Manager Device Identifier Shelf Expiration Date Model / Serial / Lot Mediport Pwr Mri 8fr [id number] - [id number] Implanted:Qty : 1 on 07/17/2023 by Medhat Angel MD at OR [facility] Right: Chest CR BARD : PERIPHERAL VASCULAR 07/16/2024 [id number] / / [id number] Port Implant W8f Poly Cath - [id number] Implanted:Qty : 1 on 07/17/2023 by Medhat Angel MD at OR [facility] CR BARD : PERIPHERAL VASCULAR [id number] 07/16/2024 [id number] / / [id number] documented as of this encounter Visit Diagnoses [...] Agents on File Name Relationship Healthcare Agent [facility] Communication Trixie Le [facility] Repr esentative (appointed verbally by patient or by statute hierarchy) [email or web address] Care Teams Labor Contractor Relationship Specialty Start Date End Date Kayla Reeder DO [address] [facility] [place] [address] PCP - General Family Medicine 06/11/23 documented as of this encounter
--- OUTSIDE RECORDS SUMMARY | 2023-09-18 21:23 | External Medical Summary | Summary of Care ---
Author Name Unknown Organization [facility] Address [address] [place] [address] Phone [phone] Care Team Providers Care Manager Corporate Responsibility Name Role Phone Varinder Kaylaparth Clarke DO Primary Care Provider +1- [phone] Encounter Details Date Type Department Care Team (Late st Contact Info) Description 08/18/2023 Orders Only [facility] [address] [place] [address] Mike Chaudhary MD [address] [place] [address] Encounter for antineoplastic chemotherapy; Burkitt [...] 11:00 AM EDT Hem/Onc Treatment Hematology/Oncology Treatment, [address] [address] [facility], Chair3 Hem Onc [address] [place] [address] 08/19/2023 11:00 AM EDT Office Visit Palliative Medicine, [address] [place] [address] Tessa Rubio PA-C [address] [place] [address] 08/21/2023 9:00 AM EDT Nurse Only Hematology Oncology [facility], [place] [address] [place] [address] [place], Nurse Lab Hem/Onc [address] [place] [address] 08/21/2023 10:00 AM EDT Hem/Onc Treatment Hematology Oncology [facility], [address] [address] [place], Chair 18 Hem/Onc [address] [place] [address] 08/21/2023 2:00 PM EDT Hospital Encounter Radiology, [address] [phone] 08/24/2023 7:00 AM EDT Laboratory Laboratory, [address] [phone] [facility], Lab [address] [place] [address] 08/24/2023 8:00 AM EDT Immunization/Injection Hematology/Oncology Treatment, [address] [address] [facility], Chair1 Hem Onc [address] [place] [address] 08/27/2023 10:30 AM EDT Laboratory Laboratory, [address] [phone] [facility], Lab [address] [place] [address] 08/27/2023 11:30 AM EDT Office Visit Hematology/Oncology, [address] [address] Lakeshia Stone CRNP [address] [place] [address] 08/31/2023 10:00 AM EDT Laboratory Laboratory [facility], [address] [place] [phone] [place], [address] [place] [address] 09/04/2023 10:00 AM EDT Laboratory Laboratory, [address] [address] [facility], Lab [address] [place] [address] 09/04/2023 11:00 AM EDT Telemedicine Hematology/Oncology, [address] [address] Mike Chaudhary MD [facility] [place] [address] Cart, Telemed [facility] Hem Onc Clinic [address] [place] [address] 09/07/2023 7:15 AM EDT Nurse Only Hematology Oncology [address] [address] [place], Nurse Lab Hem/Onc [address] [place] [address] 09/07/2023 8:00 AM EDT Hem/Onc Treatment Hematology Oncology [place] [address] [place] [address] [place], Chair 19 Hem/Onc [address] [place] [address] 09/07/2023 2:00 PM EDT Appointment Radiology, [address] [address] 09/09/2023 11:00 AM EDT Hem/Onc Treatment Hematology/Oncology Treatment, [address] [address] [facility], Chair1 Hem Onc [address] [place] [address] 09/11/2023 9:00 AM EDT Nurse Only Hematology Oncology [facility], [address] [address] [place], Nurse Lab Hem/Onc [address] [place] [address] 09/11/2023 10:00 AM EDT Hem/Onc Treatment Hematology Oncology [facility], [address] [address] [place], Chair 19 Hem/Onc [address] [place] [address] 09/11/2023 2:00 PM EDT Appointment Radiology, [address] [address] 09/14/2023 7:00 AM EDT Laboratory Laboratory, [address] [phone] [facility], Lab [address] [place] [address] 09/14/2023 8:00 AM EDT Immunization/Injection Hematology/Oncology Treatment, [address] [place] [address] [facility], Chair1 Hem Onc [address] [place] [address] [place] [address] 09/18/2023 10:00 AM EDT Laboratory Laboratory, [address] [place] [phone] [facility], Lab [address] [facility], [place] [address] 09/18/2023 11:00 AM EDT Telemedicine Hematology/Oncology, [facility] [address] [facility], [place] [address] Mike Chaudhary MD [address] [facility] [place] [address] Cart, Telemed [facility] [address] [facility] [address] 09/25/2023 2:40 PM EDT Office Visit Rheumatology [place] [address] [facility] [facility] [employer] [facility] [place], [place] [address] Oliver Zhang MD [facility] [place], [place] [address] 02/19/2024 12:00 PM EST Office Visit Family Practice [facility], [place] [address] [facility] [place] [address] Kayla Reeder DO [address] [facility] [place] [address] Health Maintenance Due Date Last Done Comments COVID-19 Vaccine (#1) 1993 Influenza Vaccine (FLU shot) (#1) 2023 11/17/2016, 11/17/2016, 11/30/2015, Additional history exists Depression Screening 07/07/2024 07/08/2023, 06/11/19 24 Albumin/Creatinine Ratio Discontinued 08/02/2021 documented as of this encounter Medical Devices Implanted Type Area Special Library Librarian Device Identifier Shelf Expiration Date Model / Serial / Lot Mediport Pwr Mri 8fr [id number] - [id number] Implanted:Qty : 1 on 07/17/2023 by Medhat Angel MD at OR [facility] Right: Chest CR BARD : PERIPHERAL VASCULAR 07/16/2024 [id number] / / [id number] Port Implant W8f Poly Cath - [id number] Implanted:Qty : 1 on 07/17/2023 by Medhat Angel MD at OR [facility] BARD : PERIPHERAL VASCULAR [id number] 07/16/2024 [id number] / / [id number] documented as of this encounter Visit Diagnoses [...] on File Name Relationship Healthcare Agent [facility] Communication Trixie Le [facility] Repr esentative (appointed verbally by patient or by statute hierarchy) [email or web address] Care Teams Manager Corporate Responsibility Relationship Specialty Start Date End Date Kayla Reeder DO [address] [facility] [place] [address] PCP - General Family Medicine 06/11/23 documented as of this encounter
--- OUTSIDE RECORDS SUMMARY | 2023-09-18 21:23 | External Medical Summary | Summary of Care ---
Author Name Unknown Organization [facility] Address [address] [place] [address] Phone [phone] Care Team Providers Care Cnc Supervisor Name Role Phone Varinder Kayla Clarke DO Primary Care Provider +1- [phone] Reason for Visit * Reason Comments Follow Up Encounter Details Date Type Department Care Team ([facility] st Contact Info) Description 08/19/2023 11:00 AM EDT Office Visit Palliative Medicine, [facility] [address] [facility] 5th [place] [address] Tessa Rubio, PA-C [address] [place] [address] Cancer related pain*; 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); Palliative care encounter; Goals of care, counseling/discussio n Allergies No known active allergiesdocumented as of [...] 04/22/2022 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 Overview: Follows in [place] q6m History of petit-mal seizures 03/07/2016 Tobacco [...] Time Taken Comments Blood Pressure 126/80 08/19/2023 11:43 AM EDT Pulse - - Temperature - - Respiratory Rate - - Oxygen Saturation - - Inhaled Oxygen Concentration [...] as of this encounter Progress Notes * Tessa Rubio PA-C - 08/19/2023 11:16 AM EDT Palliative Medicine Outpatient Progress Note [facility], 5th Floor [address] [facility] [place] [address] Name: Farhad Franco Date: 08/19/2023 HPI: Farhad Franco is a 32 year old male with 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 At last visit, he was changed from hydromorphone to MS IR for PRN due to insurance issues. He continued Subutex 1 mg BID. He is in the infusion center today with his step-Dad Cy. Palliative symptoms: Pain: Currently taking: He was able to get MS IR and start this in place of hydromorphone. He has only been taking this at night. It has been going well. Continues Subutex 1 mg BID. Severity: 5/10 prior to dose. 0/10 after. Timing: Controlled during the day, worse at night before bed. Nausea/Vomiting: No Appetite: Too good Constipation: No Confusion: No Sleep issues: No- used to be a 'night owl' now not so much Dyspnea: no Mood issues: no Examination: BP 126/80 Constitutional: no acute distress, chronically ill HENT: normocephalic, atraumatic. Eyes: anicteric, sclera and conjunctiva normal. Neck: no stridor Chest: normal respiratory effort ASSESSMENT/PLAN: Farhad Franco is a 32 year old male seen in follow-up for goals of care and pain and symptom management. 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 Chaudhary Cancer related pain Continues Subutex 1 mg BID. Started MS IR as needed. Usually takes 1 dose at bedtime. Going well. No side effects. Continue same dose. No refill needed today. Goals of care Continue treatment in hope of remission. Follow up in 4 weeks Next visit with Dr. Silva if able. I spent a total of 31 minutes on the date of service in preparation, delivery, and documentation ofthe care provided to Farhad Franco excluding any time spent in the performance of separately billed services. Tessa Rubio PA-C [facility] Palliative Medicine [phone] documented in this encounter Plan of Treatment Upcoming Encounters Date Type Department Care Team (Late st Contact Info) Description 08/21/2023 9:00 AM EDT Nurse Only Hematology Oncology [facility], [place] [address] [address] [facility] [place] [address] [place], Nurse Lab Hem/Onc [address] [place] [address], [place] [address] 08/21/2023 10:00 AM EDT Hem/Onc Treatment Hematology Oncology [facility], [address] [place] [address] [place], Chair 18 Hem/Onc [address] [place] [address] 08/21/2023 2:00 PM EDT Hospital Encounter Radiology, [address] [place] [address] 08/24/2023 7:00 AM EDT Laboratory Laboratory, [address] [address] [facility], Lab [address] [place] [address] 08/24/2023 8:00 AM EDT Immunization/Injection Hematology/Oncology Treatment, [address] [address] [facility], Chair1 Hem Onc [address] [place] [address] 08/27/2023 10:30 AM EDT Laboratory Laboratory, [address] [address] [facility], Lab [address] [place] [address] 08/27/2023 11:30 AM EDT Office Visit Hematology/Oncology, [address] [address] Lakeshia Stone CRNP [address] [place] [address] 08/31/2023 10:00 AM EDT Laboratory Laboratory [address], [place] [address] [place] [address] [place], [address] [place] [address] 09/04/2023 10:00 AM EDT Laboratory Laboratory, [address] [address] [facility], Lab [address] [place] [address] 09/04/2023 11:00 AM EDT Telemedicine Hematology/Oncology, [address] [address] Mike Chaudhary MD [facility] [place] [place] [address] [place], Telemed [facility] Hem Onc Clinic [address] [place] [address] 09/07/2023 7:15 AM EDT Nurse Only Hematology Oncology [address] [address] [place], Nurse Lab Hem/Onc [address] [place] [address] 09/07/2023 8:00 AM EDT Hem/Onc Treatment Hematology Oncology [address] [address] [place], Chair 19 Hem/Onc [address] [place] [address] 09/07/2023 2:00 PM EDT Appointment Radiology, [address] [address] 09/09/2023 11:00 AM EDT Hem/Onc Treatment Hematology/Oncology Treatment, [address] [address] [facility], Chair1 Hem Onc [address] [place] [address] 09/11/2023 9:00 AM EDT Nurse Only Hematology Oncology [facility], [address] [address] [place], Nurse Lab Hem/Onc [address] [place] [address] 09/11/2023 10:00 AM EDT Hem/Onc Treatment Hematology Oncology [facility], [address] [address] [place], Chair 19 Hem/Onc [address] [place] [address] 09/11/2023 2:00 PM EDT Appointment Radiology, [address] [address] 09/14/2023 7:00 AM EDT Laboratory Laboratory, [address] [phone] [facility], Lab [address] [place] [address] 09/14/2023 8:00 AM EDT Immunization/Injection Hematology/Oncology Treatment, [address] [place] [address] [facility], Chair1 Hem Onc [address] [place] [address] [place] [address] 09/18/2023 10:00 AM EDT Laboratory Laboratory, [address] [phone] [facility], Lab [address] [place] [address] 09/18/2023 11:00 AM EDT Telemedicine Hematology/Oncology, [facility] [address] [place] [address] Mike Chaudhary MD [address] [place] [address] [place], Telemed [facility] Hem Onc Clinic [address] [place] [address] 09/25/2023 2:40 PM EDT Office Visit Rheumatology [place] [address] [place] [address] Oliver Zhang MD [facility] [employer] [place] [address] 02/19/2024 12:00 PM EST Office Visit Family [facility], [place] [address] [place] [address] Kayla Reeder DO [address] [place] [address] Health Maintenance Due Date Last Done Comments COVID-19 Vaccine (#1) 1993 Influenza Vaccine (FLU shot) (#1) 2023 11/17/2016, 11/17/2016, 11/30/2015, Additional history exists Depression Screening 07/07/2024 07/08/2023, 06/11/19 24 Albumin/Creatinine Ratio Discontinued 08/02/2021 documented as of this encounter Medical Devices Implanted Type Area Administrative Underwriter Device Identifier Shelf Expiration Date Model / Serial / Lot Mediport Pwr Mri 8fr [id number] - [id number] Implanted:Qty : 1 on 07/17/2023 by Medhat Angel MD at OR [facility] Right: Chest CR BARD : PERIPHERAL VASCULAR 07/16/2024 [id number] / / [id number] Port Implant W8f Poly Cath - [id number] Implanted:Qty : 1 on 07/17/2023 by Medhat Angel MD at OR [facility] BARD : PERIPHERAL VASCULAR [id number] 07/16/2024 [id number] / / [id number] documented as of this encounter Visit Diagnoses Diagnosis Cancer related pain- Primary Neoplasm related pain (acute) (chronic) 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) Burkitt's tumor or lymphoma of intra-abdominal lymph nodes Palliative care encounter Encounter for palliative care Goals of care, counseling/discussion Other specified counseling documented in this encounter [...] Agents on File Name Relationship Healthcare Agent [facility] p Communication Trixie Le [facility] Repr esentative (appointed verbally by patient or by statute hierarchy) [email or web address] Care Teams Cnc Supervisor Relationship Specialty Start Date End Date Kayla Reeder DO [address] [facility] [place] [address] PCP - General Family Medicine 06/11/23 documented as of this encounter
--- OUTSIDE RECORDS SUMMARY | 2023-09-18 21:23 | External Medical Summary | Summary of Care ---
Author Name Unknown Organization [facility] Address [address] [place] [address] Phone [phone] Care Team Providers Care Product Safety Head Name Role Phone Kayla Reeder DO Primary Care Provider +1- [phone] Encounter Details Date Type Department Care Team (Latest Contact Info) Description 08/17/2023 12:54 PM EDT - 08/17/2023 11:59 PM EDT Hospital Encounter Radiology, [place] [address] [place] [address] Arrived Discharge Disposition: Home - [...] Sign Reading Time Taken Comments Blood Pressure 98/57 08/17/2023 3:16 PM EDT Pulse 78 08/17/2023 3:16 PM EDT Temperature 36.7 C (98 F) 08/17/2023 3:16 PM EDT Respiratory Rate 20 08/17/2023 3:16 PM EDT Oxygen Saturation 97% 08/17/2023 3:16 PM EDT Inhaled Oxygen Concentration - - [...] as of this encounter Nursing Notes * Angeli Bocanegra LPN - 08/17/2023 2:00 PM EDT DISCHARGE - POST INTERVENTIONAL RADIOLOGY PROCEDURE Patient meets discharge criteria for Interventional Radiology. Vital signs stable. Dressing clean, dry, and intact. Patient awake and oriented to pre procedure baseline. Discharge instructions given,no questions at this time. Patient tolerating liquids, with no nausea/vomiting. All belongings sentwith patient. Discharged to home. Vital Signs: BP: 98/57 (08/17/231515) Temp: 36.7 C (98 F) (08/17/231515) Pulse: 78 (08/17/231515) Resp: 20 (08/17/231515) SpO2: 97 % (08/17/231515) Neurological: [place] Coma Scale Eyes Open: Spontaneous (08/17/231515) Best Verbal Response: Verbally appropriate for age (08/17/231515) Best Motor Response: Obeys commands appropriate for age (08/17/231515) Coma Score: 15 (08/17/231515) @ANEPOSTANESSCORE@ Respiratory: documented in this encounter Miscellaneous Notes * Ancillary Progress Note - Cielo Reno TECH - 08/17/2023 2:00 PM EDT PROGRESS NOTE - Radiology Service [address] [address] Name: Farhad Franco Location: Room/bed info not found Date: 08/17/2023 Time: 2:41 PM CSF carried to lab by [place] handed to Ashish at 14:32. documented in this encounter Plan of Treatment Upcoming Encounters Date Type Department Care Team (Late st Contact Info) Description 08/19/2023 11:00 AM EDT Hem/Onc Treatment Hematology/Oncology Treatment, [address] [address] [facility], Chair3 Hem Onc [address] [place] [address] [place] [address] 08/19/2023 11:00 AM EDT Office Visit Palliative Medicine, [address] 5th [place] [address] Tessa Rubio PACatieC [address] [place] [address] 08/21/2023 9:00 AM EDT Nurse Only Hematology Oncology [address] [address] [place], Nurse Lab Hem/Onc [address] [place] [address], [place] [address] 08/21/2023 10:00 AM EDT Hem/Onc Treatment Hematology Oncology [facility], [address] [place] [address] [place], Chair 18 Hem/Onc [address] [place] [address] 08/21/2023 2:00 PM EDT Hospital Encounter Radiology, [address] [place] [phone] 08/24/2023 7:00 AM EDT Laboratory Laboratory, [address] [address] [facility], Lab [address] [place] [address] 08/24/2023 8:00 AM EDT Immunization/Injection Hematology/Oncology Treatment, [address] [address] [facility], Chair1 Hem Onc [address] [place] [address] 08/27/2023 10:30 AM EDT Laboratory Laboratory, [address] [place] [address] [facility], Lab [address] [place] [address] 08/27/2023 11:30 AM EDT Office Visit Hematology/Oncology, [address] [address] Lakeshia Stone CRNP [address] [place] [address] 08/31/2023 10:00 AM EDT Laboratory Laboratory [address], [place] [address] [place] [address] [place], Lab [address] [place] [address] 09/04/2023 10:00 AM EDT Laboratory Laboratory, [address] [phone] [facility], Lab [address] [place] [address] 09/04/2023 11:00 AM EDT Telemedicine Hematology/Oncology, [address] [address] Mike Chaudhary MD [facility] [address] [place], Telemed [facility] Hem Onc Clinic [address] [place] [address] 09/07/2023 2:00 PM EDT Appointment Radiology, [address] [phone] 09/09/2023 11:00 AM EDT Hem/Onc Treatment Hematology/Oncology Treatment, [address] [address] [facility], Chair1 Hem Onc [address] [place] [address] 09/11/2023 2:00 PM EDT Appointment Radiology, [address] [address] 09/14/2023 7:00 AM EDT Laboratory Laboratory, [address] [phone] [facility], Lab [address] [place] [address] 09/14/2023 8:00 AM EDT Immunization/Injection Hematology/Oncology Treatment, [address] [address] [facility], Chair1 Hem Onc [address] [place] [address] 09/18/2023 10:00 AM EDT Laboratory Laboratory, [address] [phone] [facility], Lab [address] [place] [address] 09/18/2023 11:00 AM EDT Telemedicine Hematology/Oncology, [address] [address] Mike Chaudhary MD [address] [place], [place] [address] Cart, Telemed [facility] Hem Onc Clinic [address] [place] [address] 09/25/2023 2:40 PM EDT Office Visit Rheumatology [place] [phone] [place] [address] Oliver Zhang MD [facility] [address] 02/19/2024 12:00 PM EST Office Visit [facility] [address], [place] [address] [place] [address] Kayla Reeder DO [address] [place] [address] Health Maintenance Due Date Last Done Comments COVID-19 Vaccine (#1) 1993 Influenza Vaccine (FLU shot) (#1) 2023 11/17/2016, 11/17/2016, 11/30/2015, Additional history exists Depression Screening 07/07/2024 07/08/2023, 06/11/19 24 Albumin/Creatinine Ratio Discontinued 08/02/2021 documented as of this encounter Medical Devices Implanted Type Area Waste Duster Device Identifier Shelf Expiration Date Model / Serial / Lot Mediport Pwr Mri 8fr [id number] - [id number] Implanted:Qty : 1 on 07/17/2023 by Medhat Angel MD at OR [facility] Right: Chest CR BARD : PERIPHERAL VASCULAR 07/16/2024 [id number] / / [id number] Port Implant W8f Poly Cath - [id number] Implanted:Qty : 1 on 07/17/2023 by Medhat Angel MD at OR [facility] CR BARD : PERIPHERAL VASCULAR [id number] 07/16/2024 [id number] / / [id number] documented as of this encounter Procedures Procedure Name Priority Date/Time Associated Diagnosis Comments FLUORO GUIDED CHEMO ADMIN INTO INSTRUCTOR BALLROOM DANCING STAT 08/17/2023 2:38 PM EDT 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 I have personally reviewed this examination and agree with the resident/fellow physician's interpretation. Narrative 08/17/2023 3:42 PM EDT EXAM FLUORO GUIDED CHEMO ADMIN INTO INSTRUCTOR BALLROOM DANCING-08/17/2023 2:38 pm HISTORY IT methotrexate COMPARISON Chemo LP 07/22/23 TECHNIQUE OPERATORS: Dr. Jw Larson (Attending) and Dr. Jaquan Bethea (Resident) PATIENT IDENTIFICATION AND CONSENT: A time out procedure was performed at 2:00 PM in the presence of Cielo Reno, RT. The patient's identification was verified. Informed consent with agreement of procedure, site, and position was obtained. All necessary equipment was available prior to the procedure. Risks, benefits, and alternatives to fluoroscopy guided lumbar puncture were discussed with the patient, and all questions were answered. The procedure matches verbalized consent. PROCEDURE NARRATIVE: The patient was placed prone on the fluoroscopy table and lumbar skin was prepped and draped in sterile fashion. 1% lidocaine was used for local anesthesia. A 22 gauge 4.75 in needle was introduced into the spinal canal the left L2-3 interlaminar approach under fluoroscopy guidance. (Please note there is lumbarization of S1.) Free flow of clear, colorless CSF was obtained without trauma. CSF was collected in four tubes, which were sent to the lab for analysis. Subsequently, Methotrexate Sodium (PF) 50 MG/2ML 12 mg in sodium chloride 0.9 % 5 mL intrathecal was slowly administered. The needle was removed, and the puncture site dressed with a sterile bandage. There was no blood loss. The patient tolerated the procedure without immediate complication. ATTESTATION: Dr. Larson was present throughout the procedure without overlapping cases. FINDINGS Technically successful fluoroscopically guided lumbar puncture with intrathecal chemotherapy administration. Transitional spinal anatomy with lumbarization of S1. Procedure Note Jw Larson IV, MD - 08/17/2023 EXAM FLUORO GUIDED CHEMO ADMIN INTO INSTRUCTOR BALLROOM DANCING-08/17/2023 2:38 pm HISTORY IT methotrexate COMPARISON Chemo LP 07/22/23 TECHNIQUE OPERATORS: Dr. Jw Larson (Attending) and Dr. Jaquan Bethea(Resident) PATIENT IDENTIFICATION AND CONSENT: A time out procedure was performed at2:00 PM in the presence of Cielo Reno, RT. The patient's identificationwas verified. Informed consent with agreement of procedure, site, andposition was obtained. All necessary equipment was available prior to theprocedure. Risks, benefits, and alternatives to fluoroscopy guided lumbarpuncture were discussed with the patient, and all questions were answered.The procedure matches verbalized consent. PROCEDURE NARRATIVE: The patient was placed prone on the fluoroscopy tableand lumbar skin was prepped and draped in sterile fashion. 1% lidocainewas used for local anesthesia. A 22 gauge 4.75 in needle was introducedinto the spinal canal the left L2-3 interlaminar approach underfluoroscopy guidance. (Please note there is lumbarization of S1.) Freeflow of clear, colorless CSF was obtained without trauma. CSF was collected in four tubes, which were sent to the lab foranalysis. Subsequently, Methotrexate Sodium (PF) 50 MG/2ML 12 mg in sodium chloride0.9 % 5 mL intrathecal was slowly administered. The needle was removed, and the puncture site dressed with a sterilebandage. There was no blood loss. The patient tolerated the procedure without immediate complication. ATTESTATION: Dr. Larson was present throughout the procedure withoutoverlapping cases. FINDINGS Technically successful fluoroscopically guided lumbar puncture withintrathecal chemotherapy administration. Transitional spinal anatomy withlumbarization of S1. IMPRESSION IMPRESSION Final report Successful fluoroscopy guided lumbar puncture and intrathecal chemotherapyadministration without immediate complication. I have personally reviewed this examination and agree with the resident/fellow physician's interpretation. Mike Chaudhary MD RAD FLUOROS COPY * CYTOLOGY (08/17/2023 1:00 PM EDT) Final Diagnosis A. CSF, Cytology: Adequacy: Satisfactory for evaluation. Category: Benign. Interpretation: Blood. Other: 08/18/2023 9:34 AM EDT LABORATORY [facility] Prior Cancer Lymphoma 08/18/2023 9:34 AM EDT LABORATORY [facility] Indication for Procedure IT methotrexate 08/18/2023 9:34 AM EDT LABORATORY [facility] Gross Description A. CSF. Received fresh labeled with name: Farhad Franco and csf and verified with the patient's name and date of . Received 1mls of clear colored fluid. The specimen is prepared for cytospin(s) at [facility]. Prepared by: XIMENA 08/18/2023 9:34 AM EDT LABORATORY [facility] Performing Labs Golf Technician screening performed at [facility] ([facility]), [address] [place] [address]. Pathologist sign out performed at [facility] ([facility]), [address] [place] [address]. 08/18/2023 9:34 AM EDT LABORATORY [facility] Photographic images and diagrams represent garcia findings in this case; they are not intended to replace a complete review of the final diagnostic report. The following statement applies to Flow Cytometry, Histology, In situ Hybridization Assays and Molecular Genetics. This test was developed and performed at [facility] and its performance characteristics determined by [facility]. It has not been cleared or approved by the U.S. Food and Drug Administration. The FDA has determined that such clearance or approval is not necessary. This test is used for clinical purposes. It should not be regarded as investigational or for research. Special stains, including histochemical stains, and studies using immunologic and MONA methodology (where applicable) are performed with appropriate positive and negative control reactions. 08/18/2023 9:34 AM EDT LABORATORY [facility] Cerebrospinal Fluid Cerebrospinal fluid specimen / Unknown 08/17/2023 1:00 PM EDT 08/17/2023 2:42 PM EDT Comment:Only need on Day 1 Mike Chaudhary MD LAB CYTOLOG Y ORDERABLES LABORATORY [facility] [address] [place] [address] documented in this encounter Visit Diagnoses Diagnosis [...] Protect from Light!, ONCE, 1 dose, On 08/17/23 at 1444 Given 08/17/2023 1:43 PM EDT 12 mg documented in this [...] Agents on File Name Relationship Healthcare Agent [facility] p Communication Trixie Le [facility] Repr esentative (appointed verbally by patient or by statute hierarchy) [email or web address] Care Teams Product Safety Head Relationship Specialty Start Date End Date Kayla Reeder DO [address] [facility] [place] [address] PCP - General Family Medicine 06/11/23 documented as of this encounter
--- OUTSIDE RECORDS SUMMARY | 2023-09-18 21:23 | External Medical Summary ---
Author Name Unknown Address Unknown Organization [id number]:[facility] - [address] [facility] [place]. [facility] [address] Laboratory Report Ordering Provider Test Date Status MATTI BARAJAS 08/21/2023 09:11:56 Final Observation Date Value Abnormality Reference (Units ) Status WBC, Total 08/21/2023 09:11:56 3.54 Below low normal 4.00-10.80 (K/uL) Final RBC 08/21/2023 09:11:56 2.94 4.50-5.25 (M/uL) Final Hemoglobin 08/21/2023 09:11:56 9.2 Below low normal 14.0-16.8 (g/dL) Final HCT 08/21/2023 09:11:56 26.4 Below low normal 40.0-48.4 (%) Final MCV 08/21/2023 09:11:56 89.8 82.0-99.5 (fL) Final MCH 08/21/2023 09:11:56 31.3 27.0-34.0 (pg) Final MCHC 08/21/2023 09:11:56 34.8 32.0-36.0 (g/dL) Final RDW 08/21/2023 09:11:56 18.0 11.5-15.5 (%) Final Platelets 08/21/2023 09:11:56 205 140-400 (K/uL) Final MPV 08/21/2023 09:11:56 9.2 6.6-11.1 (fL) Final Nucleated erythrocytes/100 leukocytes [Ratio] in Blood by Automated count 08/21/2023 09:11:56 0 <=0 (/100 WBCs) Final Performing Location [facility] - [address] [facility] [place]. [place] [address]
--- OUTSIDE RECORDS SUMMARY | 2023-09-18 21:23 | External Medical Summary | Summary of Care ---
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) Procedures TX DOXORUBIC HCL 10 MG VL CHEMO TX VINCRISTINE SULFATE 1 MG INJ TX FOSAPREPITANT INJECTION TX ETOPOSIDE 10 MG INJ TX INJECTION, RITUXIMAB-PVVR, BIOSIMILAR, (RUXIENCE), 10 MG TX INJ, NYVEPRIA TX INJ, CYCLOPHOSPHAMIDE, NOS Wilfredo, Elvis Ray MD [address] [place] [address] Anc Hem/Onc [facility] [address] [place] [address] Referral ID Status Reason Start Date Expiration Date V isits Requested Visits Authorized [id number] Authorized 07/23/2023 01/22/2024 999 999 Encounter Details Date Type Department Care Team (Latest Contact Info) Description 08/17/2023 8:00 AM EDT Hem/Onc Treatment Hematology Oncology [facility] [address] [place], [place] [phone] Iesha, [facility] 20 Hem/Onc [address], [place] [phone] Encounter for antineoplastic chemotherapy*; Burkitt lymphoma of [...] Sign Reading Time Taken Comments Blood Pressure 107/57 08/17/2023 7:33 AM EDT Pulse 84 08/17/2023 7:33 AM EDT Temperature 36.7 C (98 F) 08/17/2023 7:33 AM EDT Respiratory Rate 16 08/17/2023 7:33 AM EDT Oxygen Saturation 97% 08/17/2023 7:33 AM EDT RA Inhaled Oxygen Concentration - - Weight 113.3 kg (249 lb 12.8 oz) 08/17/2023 7:33 AM EDT Height 180.3 cm (5' 11") 08/17/2023 7:33 AM EDT Body Mass Index 34.84 08/17/2023 7:33 AM EDT documented in this [...] as of this encounter Nursing Notes * Jade Morris RN - 08/17/2023 8:49 AM EDT Pt in chair 20, treatment room Safety and Risk for Injury Patient will remain free from injury. Ensure appropriate safety devices are available. Provide and maintain safe environment. Goals: pt will remain free from injury during time at clinic Possible barriers to meeting goals: treatment and medical equipment Stability of the patient: Moderately stable - low risk of patient condition declining or worsening Summary regarding today's goals: Met: pt safely completed treatment and exited clinic Functional status at today's visit: Restricted in [...] during treatment. * Tara Lang RN - 08/17/2023 7:53 AM EDT Pre-chemo checklist Chemo/Immune agents R-EPOCH Consent for chemotherapy drug treatment complete, dated, and signed? 07/01/2023 Is this a research protocol? no Treatment lab parameters met? Yes Has treatment weight changed > than 10% No Treatment preauthorized? Yes Blood pressure N/A Urine protein N/A Chemo education completed for new therapies? N/A Return appointment scheduled Yes Orders released Yes, per provider per office visit with Dr. Chaudhary on 08/13 patient is good for day 1 cycle 3 of R-EPOCH---will have IT MTX later today at IR documented in this encounter Plan of Treatment Upcoming Encounters Date Type Department Care Team (Late st Contact Info) Description 08/21/2023 9:00 AM EDT Nurse Only Hematology Oncology [facility], [address] [address] [place], Nurse Lab Hem/Onc [address] [place] [address] 08/21/2023 10:00 AM EDT Hem/Onc Treatment Hematology Oncology [facility], [address] [address] [place], Chair 18 Hem/Onc [address] [place] [address] 08/21/2023 2:00 PM EDT Hospital Encounter Radiology, [address] [address] 08/24/2023 7:00 AM EDT Laboratory Laboratory, [address] [phone] [facility], Lab [address] [place] [address] 08/24/2023 8:00 AM EDT Immunization/Injection Hematology/Oncology Treatment, [address] [address] [facility], Chair1 Hem Onc [address] [place] [address] [place] [address] 08/27/2023 10:30 AM EDT Laboratory Laboratory, [address] [phone] [facility], Lab [address] [place] [address] 08/27/2023 11:30 AM EDT Office Visit Hematology/Oncology, [address] [address] Lakeshia Stone CRNP [address] [place] [address] 08/31/2023 10:00 AM EDT Laboratory Laboratory [facility], [place] [address] [facility] [place] [phone] [place], Lab [facility] [address] [place] [address] 09/04/2023 10:00 AM EDT Laboratory Laboratory, [address] [phone] [facility], Lab [address] [place] [address] 09/04/2023 11:00 AM EDT Telemedicine Hematology/Oncology, [address] [address] Mike Chaudhary MD [address] [place] [address] Porsche Hurtado [facility] Hem Onc Clinic [address] [place] [address] 09/07/2023 7:15 AM EDT Nurse Only Hematology Oncology [facility], [address] [address] I[place]ha, Nurse Lab Hem/Onc [address] [place] [address] 09/07/2023 8:00 AM EDT Hem/Onc Treatment Hematology Oncology [facility], [address] [address] [place], Chair 19 Hem/Onc [address] [place] [address] 09/07/2023 2:00 PM EDT Appointment Radiology, [address] [phone] 09/09/2023 11:00 AM EDT Hem/Onc Treatment Hematology/Oncology Treatment, [address] [address] [facility], Chair1 Hem Onc [address] [place] [address] 09/09/2023 1:00 PM EDT Office Visit Palliative Medicine, [address] [place] [address] Aury Silva MD [address] [place] [address] 09/11/2023 9:00 AM EDT Nurse Only Hematology Oncology [facility], [address] [address] Iesha, Nurse Lab Hem/Onc [address] [place] [address] 09/11/2023 10:00 AM EDT Hem/Onc Treatment Hematology Oncology [facility], [address] [address] I[place]ha, Chair 19 Hem/Onc [address] [place] [address] 09/11/2023 2:00 PM EDT Appointment Radiology, [place] [address] [place] [address] 09/14/2023 7:00 AM EDT Laboratory Laboratory, [address] [phone] [facility], Lab [address] [place] [address] 09/14/2023 8:00 AM EDT Immunization/Injection Hematology/Oncology Treatment, [address] [address] [facility], Chair1 Hem Onc [address] [place] [address] 09/18/2023 10:00 AM EDT Laboratory Laboratory, [address] [phone] [facility], Lab [address] [place] [address] 09/18/2023 11:00 AM EDT Telemedicine Hematology/Oncology, [address] [address] Mike Chaudhary MD [address] [place] [address] [place], Telemed [facility] Hem Onc Clinic [address] [place] [address] 09/25/2023 2:40 PM EDT Office Visit Rheumatology [place] [address] [facility] [place] [address] Oliver Zhang MD [facility] [place] [address] 02/19/2024 12:00 PM EST Office Visit [facility] [address] [address] [place] [address] Kayla Reeder DO [address] [place] [address] Scheduled Orders Name Type Priority Associated Diagnoses Orde r Schedule BLOOD PRESSURE Procedures STAT Encounter for antineoplastic chemotherapy 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) Expected: 08/17/2023 (Approximate), Expires: 02/13/2024 Health Maintenance Due Date Last Done Comments COVID-19 Vaccine (#1) 1993 Influenza Vaccine (FLU shot) (#1) 2023 11/17/2016, 11/17/2016, 11/30/2015, Additional history exists Depression Screening 07/07/2024 07/08/2023, 06/11/19 24 Albumin/Creatinine Ratio Discontinued 08/02/2021 documented as of this encounter Medical Devices Implanted Type Area Baker Bench Device Identifier Shelf Expiration Date Model / Serial / Lot Mediport Pwr Mri 8fr [id number] - [id number] Implanted:Qty : 1 on 07/17/2023 by Medhat Angel MD at OR [facility] Right: Chest CR BARD : PERIPHERAL VASCULAR 07/16/2024 [id number] / / [id number] Port Implant W8f Poly Cath - [id number] Implanted:Qty : 1 on 07/17/2023 by Medhat Angel MD at OR [facility] CR BARD : PERIPHERAL VASCULAR [id number] 07/16/2024 [id number] / / [id number] documented as of this encounter Visit Diagnoses Diagnosis Encounter for antineoplastic chemotherapy- Primary 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 Given 08/17/2023 8:45 AM EDT 650 mg diphenhydrAMINE (Benadryl) cap 50 mg 50 mg, Oral, ONCE, On Thu08/17/23 at 0830, For 1 dose Given 08/17/2023 8:45 AM EDT 50 mg etoposide (VEPESID) 290 [...] through home infusion company., CONTINUOUS, Starting on Thu08/17/23 at 0900, Until Thu08/17/23 at 1713 Start Infusion 08/17/2023 11:40 AM EDT Famotidine (Pepcid) tab 20 mg 20 mg, Oral, ONCE, On Thu08/17/23 at 0830, For 1 dose Given 08/17/2023 8:45 AM EDT 20 mg Fosaprepitant Dimeglumine (Emend) 150 mg, ondansetron (Zofran) 16 mg in NSS 250 mL Infusion 150 mg, IV Piggyback, ONCE, 1 dose, On Thu08/17/23 at 0830, Administer over 30 Minutes, Give 30 minutes prior to chemotherapy. Infuse over 30 minutes. Start Infusion 08/17/2023 8:29 AM EDT 150 mg 536 mL/hr NSS infusion FOR HYDRATION Intravenous, at 500 mL/hr Administer over 2 Hours, ONCE, 1 dose, On Thu08/17/23 at 0830 Start Infusion 08/17/2023 8:20 AM EDT 1,000 mL 500 mL/hr riTUXimab-pvvr (Ruxience) 900 mg in NSS 250 mL ivpb 900 mg (rounded from 892.5 mg = 375 mg/m2 2.38 m2 Treatment Plan BSA from Recorded weight), IV Piggyback, ONCE, 1 dose, On Thu08/17/23 at 0900, ADM AT 100mL / HR FOR THE FIRST 30 MIN THEN AT 200mL / HR FOR THE REMAINDER Rate Change 08/17/2023 9:34 AM EDT 200 mL/hr Start Infusion 08/17/2023 9:04 AM EDT 900 mg 100 mL/hr documented [...] Relationship Healthcare Agent [facility] Communication Trixie Le [facility] Repr esentative (appointed verbally by patient or by statute hierarchy) [email or web address] Care Teams Gas Maker Helper Relationship Specialty Start Date End Date Kayla Reeder DO [address] [facility] [place] [address] PCP - General Family Medicine 06/11/23 documented as of this encounter
--- OUTSIDE RECORDS SUMMARY | 2023-09-18 21:24 | External Medical Summary ---
Author Name Unknown Address Unknown Organization K01:[facility] - [address] [facility] [address] Laboratory Report Ordering Provider Test Date Status MATTI BARAJAS 08/17/2023 14:40:45 Final Some reference ranges and ot her method performance specifications have not been established for this fluid. The test results must be integrated into the clinical context for interpretation. Observation Date Value Abnormality Reference (Units ) Status CSF, color 08/17/2023 14:40:45 Colorless Colorless Final CSF, clarity 08/17/2023 14:40:45 Clear Clear Final Color of Spun Cerebral spinal fluid 08/17/2023 14:40:45 Colorless Colorless Final Tube number of Cerebral spinal fluid 08/17/2023 14:40:45 3 Final Nucleated cells [#/volume] in Body fluid by Automated count 08/17/2023 14:40:45 55 Above high normal <5 (cells/uL) Final Erythrocytes [#/volume] in Cerebral spinal fluid 08/17/2023 14:40:45 203 Above high normal <5 (cells/uL) Final Performing Location [facility] - [address] [facility] [address]
--- OUTSIDE RECORDS SUMMARY | 2023-09-18 21:24 | External Medical Summary | Summary of Care ---
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) Procedures MS DOXORUBIC HCL 10 MG VL CHEMO MS VINCRISTINE SULFATE 1 MG INJ MS FOSAPREPITANT INJECTION MS ETOPOSIDE 10 MG INJ MS INJECTION, RITUXIMAB-PVVR, BIOSIMILAR, (RUXIENCE), 10 MG MS INJ, NYVEPRIA MS INJ, CYCLOPHOSPHAMIDE, NOS Wilfredo, Elvis Ray MD [address] [place] [address] Anc Hem/Onc [facility] [address] [place] [address] Referral ID Status Reason Start Date Expiration Date V isits Requested Visits Authorized [id number] Authorized 07/23/2023 01/22/2024 999 999 Encounter Details Date Type Department Care Team (Latest Contact Info) Description 08/17/2023 8:00 AM EDT Hem/Onc Treatment Hematology Oncology [facility] [address] [place], [place] [phone] Iesha, [facility] 20 Hem/Onc [address] [place], [place] [phone] Encounter for antineoplastic chemotherapy*; 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) Allergies No known active allergiesdocumented as of this encounter (statuses as of 08/17/2023) Medications Medication Sig Dispensed Refills Start Date [...] as of this encounter (statuses as of 08/17/2023) Active Problems 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 Overview: Follows in [place] q6m History of petit-mal seizures 03/07/2016 Tobacco use disorder 01/01/2016 Migraine with aura and witho ut status migrainosus, not intractable 12/18/2014 Gastroesophageal reflux disease with esophagitis 12/18/2014 Adjustment disorder with depressed mood 08/15/19 10 documented as of this encounter (statuses as of 08/17/2023) Resolved Problems Problem Noted Date Diagnosed Date [...] as of this encounter (statuses as of 08/17/2023) Immunizations Name Administration Dates Next Due DT [...] Team (Late st Contact Info) Description 08/17/2023 12:54 PM EDT Hospital Encounter Radiology, [address] [phone] Arrived 08/19/2023 11:00 AM EDT Hem/Onc Treatment Hematology/Oncology Treatment, [address] [address] [facility], Chair3 Hem Onc [address] [place] [address] 08/19/2023 11:00 AM EDT Office Visit Palliative Medicine, [address] [place] [address] Tessa Rubio, PA-C [address] [place] [address] 08/21/2023 9:00 AM EDT Nurse Only Hematology Oncology [address] [address] [place], Nurse Lab Hem/Onc [address] [place] [address] 08/21/2023 10:00 AM EDT Hem/Onc Treatment Hematology Oncology [address] [address] [place], Chair 18 Hem/Onc [address] [place] [address] 08/21/2023 2:00 PM EDT Hospital Encounter Radiology, [address] [address] 08/24/2023 7:00 AM EDT Laboratory Laboratory, [address] [place] [phone] [facility], Lab [address] [place] [address] 08/24/2023 8:00 AM EDT Immunization/Injection Hematology/Oncology Treatment, [address] [address] [facility], Chair1 Hem Onc [address] [place] [address] 08/27/2023 10:30 AM EDT Laboratory Laboratory, [address] [phone] [facility], Lab [address] [place] [address] 08/27/2023 11:30 AM EDT Office Visit Hematology/Oncology, [address] [address] Lakeshia Stone CRNP [address] [place] [address] 08/31/2023 10:00 AM EDT Laboratory Laboratory [facility], [place] [address] [facility] [place] [phone] [place], [address] [facility] [place] [address] 09/04/2023 10:00 AM EDT Laboratory Laboratory, [address] [place] [phone] [facility], Lab [address] [place] [address], [place] [address] 09/04/2023 11:00 AM EDT Telemedicine Hematology/Oncology, [address] [place] [address] Mike Chaudhary MD [address] [facility] [place] [address] [place], Telemed [facility] Hem Onc Clinic [address] [place] [address], [place] [address] 09/07/2023 2:00 PM EDT Appointment Radiology, [address] [place] [phone] 09/09/2023 11:00 AM EDT Hem/Onc Treatment Hematology/Oncology Treatment, [address] [place] [address] [facility], Chair1 Hem Onc [address] [place] [address], [place] [address] 09/11/2023 2:00 PM EDT Appointment Radiology, [address] [place] [phone] 09/14/2023 7:00 AM EDT Laboratory Laboratory, [address], [place] [address] [facility], Lab [address] [place] [address], [place] [address] 09/14/2023 8:00 AM EDT Immunization/Injection Hematology/Oncology Treatment, [address] [place] [address] [facility], Chair1 Hem Onc [address] [place] [address], [place] [address] 09/18/2023 10:00 AM EDT Laboratory Laboratory, [address] [phone] [facility], Lab [address] [place] [address] 09/18/2023 11:00 AM EDT Telemedicine Hematology/Oncology, [address] [address] Mike Chaudhary MD [address] [place], [place] [phone] [place], Telemed [facility] Hem Onc Clinic [address] [place] [address] 09/25/2023 2:40 PM EDT Office Visit Rheumatology [address] [place] [address] Oliver Zhang MD [facility] [place] [address] 02/19/2024 12:00 PM EST Office Visit [facility], [place] [address] [facility] [place] [address] Kayla Reeder DO [address] [facility] [place] [address] Scheduled Orders Name Type Priority Associated Diagnoses [...] this encounter Medical Devices Implanted Type Area Log Buyer Device Identifier Shelf Expiration Date Model / Serial / Lot Tee Pwr Mri 8fr [id number] - [id number] Implanted:Qty : 1 on 07/17/2023 by Medhat Angel MD at OR [facility] Right: Chest CR BARD : PERIPHERAL VASCULAR 07/16/2024 [id number] / / [id number] Port Implant W8f Poly Cath - [id number] Implanted:Qty : 1 on 07/17/2023 by Medhat Angel MD at OR [facility] CR BARD : PERIPHERAL VASCULAR [id number] 07/16/2024 [id number] / / [id number] documented as of this encounter Visit Diagnoses Diagnosis 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)- Primary Burkitt's tumor or lymphoma of intra-abdominal lymph nodes Encounter for antineoplastic chemotherapy- Primary 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) Burkitt's tumor or lymphoma of intra-abdominal lymph nodes documented in this encounter Administered Medications Active Administered Medications - up to 3 most recent administrations Medication Order MAR Action Action Date Dose Rate Site diphenhydrAMINE (Benadryl) inj 50 mg 50 mg, IV Push, ONCE PRN Other, Hypersensitivity Reaction, Starting on Thu08/17/23 at 0755, Until Thu08/18/23 at 0754, For 24 hours EPINEPHrine 1 MG/ML inj 0.3 mg 0.3 mg, Intramuscular, ONCE PRN Other, Hypersensitivity Reaction or Anaphylaxis, Starting on Thu08/17/23 at 0755, Until Thu08/18/23 at 0754, For 24 hours etoposide (VEPESID) 290 mg, vinCRIStine sulfate 1.9 mg, DOXOrubicin (Adriamycin) 58 mg [facility] 48 HOUR infusion Intravenous, Administer over 48 Hours, PROTECT FROM LIGHT! Administer through 0.22 micron low protein binding filter! Home Infusion Pharmacy to specify base solution and volume. To be given over 48 hours every other day for 4 days (2 bags) through home infusion company., CONTINUOUS, Starting on Thu08/17/23 at 0900, Until Discontinued Start Infusion 08/17/2023 11:40 AM EDT hEParin 100 UNIT/ML Lock Flush inj 500 Units 500 Units (5 mL), IV Lock, PRN Other, IV Flush, Starting on Thu08/17/23 at 0755, Until Thu08/18/23 at 0754, For 24 hours, Do not flush if lock, PICC, or central line not in place; IV infusing or unable to flush. Hydrocortisone Sod Suc (PF) (Solu-Cortef) inj 100 mg 100 mg, IV Push, ONCE PRN Other, Hypersensitivity Reaction, Starting on Thu08/17/23 at 0755, Until Thu08/18/23 at 0754, For 24 hours LORAzepam (Ativan) tab 0.5 mg 0.5 mg, Oral, ONCE PRN Anxiety, Nausea, Starting on Thu08/17/23 at 0830, Until Discontinued oxygen GAS Inhalation, OXYGEN, First dose on Thu08/17/23 at 0830, Until Discontinued, Device/Managed by: Low [...] Push, PRN Other, IV Flush, Starting on Thu08/17/23 at 0755, Until Thu08/18/23 at 0754, For 24 hours, Do not [...] Given 08/17/2023 8:45 AM EDT 50 mg Famotidine (Pepcid) tab [...] [facility] p Communication Trixie D [facility] Repr esentative (appointed verbally by patient or by statute hierarchy) [email or web address] Care Teams Cardiology Specialist Relationship Specialty Start Date End Date Kayla Reeder DO [address] [facility] [place] [address] PCP - General Family Medicine 06/11/23 documented as of this encounter
--- OUTSIDE RECORDS SUMMARY | 2023-09-18 21:24 | External Medical Summary | Summary of Care ---
Author Name Unknown Organization [facility] Address [address] [place] [address] Phone [phone] Care Team Providers Care Fancy Wire Drawer Name Role Phone Kayla Reeder DO Primary Care Provider +1- [phone] Encounter Details Date Type Department Care Team (Late st Contact Info) Description 08/14/2023 Documentation Pharmacy Hematology Oncology [facility] [address] [place] [address] [facility] [address] [place] [address] Allergies No known active allergiesdocumented as of this encounter (statuses as of 08/14/2023) Medications Medication Sig Dispensed Refills Start Date [...] as of this encounter (statuses as of 08/14/2023) Active Problems Problem Noted Date Diagnosed Date [...] as of this encounter (statuses as of 08/14/2023) Resolved Problems Problem Noted Date Diagnosed Date [...] as of this encounter (statuses as of 08/14/2023) Immunizations Name Administration Dates Next Due DT [...] as of this encounter Progress Notes * Jasmine Richardson, [facility] - 08/14/2023 1:42 PM EDT Patient is following: Traditional dose adjusted protocol- Pharmacy will monitor labs and adjust dose levels based on protocol Monitoring Parameters Estimated ClCr = Serum creatinine: 1 mg/dL 08/14/23 0900 Estimated creatinine clearance: 131.9 mL/min EF (date): % () Anthracycline cumulative dose: 81.27 mg/m2 (18%)-not including this cycle Hepatitis panel: Drug interaction assessment: Treatment plan and current medication list evaluated for drug-drug interactions. No clinically significant drug interaction identified Relevant Labs Labs drawn starting 3-4 days after previous cycle Day 5 chemotherapy: Yes Labs drawn twice weekly: Yes Labs drawn 3-4 days apart: Yes Lab Parameters to Determine Level ANC > 500/Lyle all measurements (3-4 days apart) -- Increase one dose level (Max level 7) Based on previous labs, dosing for this upcoming cycle will be: Doxorubicin 24 mg/m2 IV q48h on Days 1 and 3 , Etoposide 120 mg/m2 IV q48h on Days 1 and 3 , and Cyclophosphamide 900 mg/m2 IV once on Day 5 [place] has been updated by NS and signed by provider. Labs reviewed and agree with dosing adjustment. This cycle will be administered in the oupatient setting. Communicated upcoming cycle day 1 and day 8 to pharmacy helper team for upcoming lab monitoringvia Hem/Onc Oral Chemotherapy Pharmacist Jorge [phone] with subject "Protalex Lab Reminder Call" Current treatment Cycle Dates Dose Level C1 07/02/23 - 07/06/23 Level 1 C2 07/27/23 - 07/31/23 Level 1 C3 To start 08/16/22 Level 2 documented in this encounter Plan of Treatment Upcoming Encounters Date Type Department Care Team (Late st Contact Info) Description 08/17/2023 7:15 AM EDT Nurse Only Hematology Oncology [facility], [address] [address] [place], Nurse Lab Hem/Onc [address] [place] [address] 08/17/2023 8:00 AM EDT Hem/Onc Treatment Hematology Oncology [facility], [address] [address] [place], Chair 20 Hem/Onc [address] [place] [address] 08/17/2023 2:00 PM EDT Hospital Encounter Radiology, [address] [address] 08/19/2023 11:00 AM EDT Hem/Onc Treatment Hematology/Oncology Treatment, [address] [address] [facility], Chair3 Hem Onc [address] [place] [address] [place] [address] 08/19/2023 11:00 AM EDT Office Visit Palliative Medicine, [address] 5th Floor [place] [address] Tessa Rubio, PACatieC [address] [place] [address] 08/21/2023 9:00 AM EDT Nurse Only Hematology Oncology [facility], [place] [address] [address] [facility] [place] [address] [place], Nurse Lab Hem/Onc [facility] [place] [address] 08/21/2023 10:00 AM EDT Hem/Onc Treatment Hematology Oncology [facility], [place] [address] [place] [address] [place], Chair 18 Hem/Onc [address] [place] [address] 08/21/2023 2:00 PM EDT Hospital Encounter Radiology, [address] [phone] 08/24/2023 8:00 AM EDT Immunization/Injectio n Hematology/Oncology Treatment, [address] [address] [facility], Chair1 Hem Onc [address] [place] [address] 08/25/2023 10:50 AM EDT Laboratory Laboratory [address], [place] [address] [facility] [place] [phone] [place], Lab [address] [facility] [place] [address] 08/26/2023 12:30 PM EDT Office Visit Hematology/Oncology, [address] [address] Lakeshia tSone CRNP [address] [place] [address] 08/27/2023 11:30 AM EDT [facility] [address] [place] [phone] [place], [facility] 6[address] [facility] [place] [address] 09/07/2023 2:00 PM EDT Appointment Radiology, [address] [address] 09/11/2023 2:00 PM EDT Appointment Radiology, [address] [address] 09/25/2023 2:40 PM EDT Office Visit Rheumatology [address] [place] [address] Oliver Zhang MD [facility] [employer] [facility] [place] [address] 02/19/2024 12:00 PM EST Office Visit Family Practice [facility], [place] [address] [place] [address] Kayla Reeder DO [address] [place] [address] Health Maintenance Due Date Last Done Comments COVID-19 Vaccine (#1) 1993 Influenza Vaccine (FLU shot) (Season Ended) 2023 11/17/2016, 11/17/2016, 11/30/2015, Additional history exists Depression Screening 07/07/2024 07/08/2023, 06/11/19 24 Albumin/Creatinine Ratio Discontinued 08/02/2021 documented as of this encounter Medical Devices Implanted Type Area Grain Oilseed Or Pasture Farm Worker Device Identifier Shelf Expiration Date Model / Serial / Lot Mediport Pwr Mri 8fr [id number] - [id number] Implanted:Qty : 1 on 07/17/2023 by Medhat Angel MD at OR [facility] Right: Chest CR BARD : PERIPHERAL VASCULAR 07/16/2024 [id number] / / [id number] Port Implant W8f Poly Cath - [id number] Implanted:Qty : 1 on 07/17/2023 by Medhat Angel MD at OR [facility] BARD : PERIPHERAL VASCULAR [id number] 07/16/2024 [id number] / / [id number] documented as of this encounter Advance Directives [...] Name Relationship Healthcare Agent [facility] p Communication Trixie Le [facility] Repr esentative (appointed verbally by patient or by statute hierarchy) [email or web address] Care Teams Fancy Wire Drawer Relationship Specialty Start Date End Date Kayla Reeder DO [address] [facility] [place] [address] PCP - General Family Medicine 06/11/23 documented as of this encounter
--- OUTSIDE RECORDS SUMMARY | 2023-09-18 21:24 | External Medical Summary | Summary of Care ---
Author Name Unknown Organization [facility] Address [address] [place] [address] Phone [phone] Care Team Providers Care Charging Machine Operator Name Role Phone Kayla Reeder DO Primary Care Provider +1- [phone] Encounter Details Date Type Department Care Team (Late st Contact Info) Description 08/17/2023 7:15 AM EDT Nurse Only Hematology Oncology [facility], [place] [address] [place], [place] [phone] [place], Nurse Lab Hem/Onc [address] [place], [place] [phone] Arrived Allergies No known active allergiesdocumented as [...] encounter Miscellaneous Notes * Addendum Note - Sampson Mosher TECH - 08/17/2023 7:53 AM EDTAddended by: SAMPSON MOSHER on: 08/17/2023 07:53 AM Modules accepted: Orders documented in this encounter Plan of Treatment Upcoming Encounters Date Type Department Care Team (Latest Contact Info) Description 08/17/2023 8:00 AM EDT Hem/Onc Treatment Hematology Oncology [facility], [address] [address] [place], [facility] 20 Hem/Onc [address] [place] [address] Encounter for antineoplastic chemotherapy*; 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) 08/17/2023 2:00 PM EDT Hospital Encounter Radiology, [address] [address] 08/19/2023 11:00 AM EDT Hem/Onc Treatment [facility], [facility] [address] [address] [facility], Chair3 Hem Onc [address] [place] [address] 08/19/2023 11:00 AM EDT Office Visit Palliative Medicine, [address] [place] [address] Tessa Rubio PA-C [address] [place] [address] 08/21/2023 9:00 AM EDT Nurse Only Hematology Oncology [facility], [address] [address] [place], Nurse Lab Hem/Onc [address] [place] [address] 08/21/2023 10:00 AM EDT Hem/Onc Treatment Hematology Oncology [facility], [address] [address] [place], Chair 18 Hem/Onc [address] [place] [address] 08/21/2023 2:00 PM EDT Hospital Encounter Radiology, [address] [phone] 08/24/2023 8:00 AM EDT Immunization/Inject ion Hematology/Oncolog y Treatment, [address] [address] [facility], Chair1 Hem Onc [address] [place] [address] [place] [address] 08/25/2023 10:50 AM EDT Laboratory Laboratory [address], [place] [address] [place] [phone] [place] [address] 08/26/2023 12:30 PM EDT Office Visit Hematology/Oncolog , [facility] 400 [place] [address] Lakeshia Stone CRNP [address] [place] [address] 08/27/2023 11:30 AM EDT Laboratory Laboratory [place] Garcia [address] [place] [phone] [place] [address] [place] [address] 09/07/2023 2:00 PM EDT Appointment Radiology, [address] [address] 09/11/2023 2:00 PM EDT Appointment Radiology, [address] [address] 09/25/2023 2:40 PM EDT Office Visit Rheumatology [address] [place] [address] Oliver Zhang MD [address] [place] [address], [place] [address] 02/19/2024 12:00 PM EST Office Visit Family Practice [place] Garcia [address] [place] [address] Kayla Reeder DO [address] [place] [address] Pending Results Name Type Priority Associated Diagnoses Date /Time COMPREHENSIVE METABOLIC PANEL Lab STAT 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) 08/17/2023 7:07 AM EDT URIC ACID Lab STAT 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) 08/17/2023 7:07 AM EDT LD Lab STAT 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) 08/17/2023 7:07 AM EDT EXTRA TUBES Lab Routine 08/17/2023 7: 07 AM EDT EXTRA GREEN TOP WITH GEL Lab Routine 08/17/2023 7:07 AM EDT Health Maintenance Due Date Last Done Comments COVID-19 Vaccine (#1) 1993 Influenza Vaccine (FLU shot) (#1) 2023 11/17/2016, 11/17/2016, 11/30/2015, Additional history exists Depression Screening 07/07/2024 07/08/2023, 06/11/19 24 Albumin/Creatinine Ratio Discontinued 08/02/2021 documented as of this encounter Medical Devices Implanted Type Area Bus Matron Device Identifier Shelf Expiration Date Model / Serial / Lot Mediport Pwr Mri 8fr [id number] - [id number] Implanted:Qty : 1 on 07/17/2023 by Medhat Angel MD at OR [facility] Right: Chest CR BARD : PERIPHERAL VASCULAR 07/16/2024 [id number] / / [id number] Port Implant W8f Poly Cath - [id number] Implanted:Qty : 1 on 07/17/2023 by Medhat Angel MD at OR [facility] CR BARD : PERIPHERAL VASCULAR [id number] 07/16/2024 [id number] / / [id number] documented as of this encounter Procedures Procedure Name Priority Date/Time Associated Diagnosis Comments DIFFERENTIAL, AUTOMATED STAT 08/17/2023 7:07 AM EDT 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0 % 08/17/2023 7:30 AM EDT LAB[facility]ORY [facility] Eosinophils % 0.0 0.0 - 6.0 % 08/17/2023 7:30 AM EDT LAB[facility]ORY [facility] Basophils % 0.5 0.0 - 2.0 % 08/17/2023 7:30 AM EDT LAB[facility]ATORY [facility] Immature Granulocytes % 2.3(H) 0.0 - 2.0 % 08/17/2023 7:30 AM EDT LAB[facility]ATORY [facility] Absolute Neutrophils 6.20 1.80 - 7.70 K/uL 08/17/2023 7:30 AM EDT LABORATORY [facility] Absolute Lymphocytes 0.60(L) 1.00 - 4.80 K/ul 08/17/2023 7:30 AM EDT LAB[facility]ATORY [facility] Absolute Monocytes 0.28 0.00 - 1.10 K/uL 08/17/2023 7:30 AM EDT LAB[facility]ATORY [facility] Absolute Eosinophils 0.00 0.00 - 0.70 K/uL 08/17/2023 7:30 AM EDT LAB[facility]ATORY [facility] Absolute Basophils 0.04 0.00 - 0.20 K/uL 08/17/2023 7:30 AM EDT LAB[facility]ATORY [facility] Absolute Immature Granulocytes 0.17 0.00 - 0.20 K/uL 08/17/2023 7:30 AM EDT LAB[facility]ORY [facility] Blood Blood sample taken from central line / Unknown Central Line / Unknown 08/17/2023 7:07 AM EDT 08/17/2023 7:27 AM EDT Mike Chaudhary MD LAB BLOOD O RDERABLES LABORATORY [facility] [address] [place] [address] * (ABNORMAL) CBC (08/17/2023 7:07 AM EDT) WBC 7.29 4.00 - 10.80 K/uL 08/17/2023 7:30 AM EDT LAB[facility]ATORY [facility] RBC 3.05 4.50 - 5.25 M/uL 08/17/2023 7:30 AM EDT LAB[facility]ATORY [facility] HGB 9.5(L) 14.0 - 16.8 g/dL 08/17/2023 7:30 AM EDT LAB[facility]ORY [facility] HCT 29.1(L) 40.0 - 48.4 % 08/17/2023 7:30 AM EDT LABORATORY [facility] MCV 95.4 82.0 - 99.5 fL 08/17/2023 7:30 AM EDT LABORATORY [facility] MCH 31.1 27.0 - 34.0 pg 08/17/2023 7:30 AM EDT LAB[facility]ATORY [facility] MCHC 32.6 32.0 - 36.0 g/dL 08/17/2023 7:30 AM EDT LAB[facility]ATORY [facility] RDW 19.3 11.5 - 15.5 % 08/17/2023 7:30 AM EDT LAB[facility]ATORY [facility] PLT 163 140 - 400 K/uL 08/17/2023 7:30 AM EDT LAB[facility]ATORY [facility] MPV 10.0 6.6 - 11.1 fL 08/17/2023 7:30 AM EDT LAB[facility]ORY [facility] nRBCs 0 <=0 /100 WBCs 08/17/2023 7:30 AM EDT LAB[facility]ATORY [facility] Blood Blood sample taken from central line / Unknown Central Line / Unknown 08/17/2023 7:07 AM EDT 08/17/2023 7:27 AM EDT Mike Chaudhary MD LAB BLOOD O RDERABLES [facility]ORY [facility] [address] [place] [address] documented in this encounter Visit Diagnoses Diagnosis 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)- Primary Burkitt's tumor or lymphoma of intra-abdominal lymph nodes Encounter for antineoplastic chemotherapy Encounter for antineoplastic chemotherapy- Primary Burkitt lymphoma [...] on File Name Relationship Healthcare Agent [facility] p Communication Trixie Le [facility] Repr esentative (appointed verbally by patient or by statute hierarchy) [email or web address] [email or web address] Care Teams Charging Machine Operator Relationship Specialty Start Date End Date Kayla Reeder DO [address] [facility] [address] PCP - General Family Medicine 06/11/23 documented as of this encounter
--- OUTSIDE RECORDS SUMMARY | 2023-09-18 21:24 | External Medical Summary ---
Author Name Unknown Address Unknown Organization K01:LABORATORY C - [address] [place] [address] Laboratory Report Ordering Provider Test Date Status MATTI BARAJAS 08/17/2023 07:07:00 Final Observation Date Value Abnormality Reference (Units ) Status Uric Acid 08/17/2023 07:07:00 4.5 3.4-7.0 (m g/dL) Final Performing Location [facility] - [address] [place] [address]
--- OUTSIDE RECORDS SUMMARY | 2023-09-18 21:24 | External Medical Summary | Summary of Care ---
Author Name Unknown Organization [facility] Address [address] [place] [address] Phone [phone] Care Team Providers Care Accounts Payable Administrator Name Role Phone Kayla Reeder DO Primary Care Provider +1- [phone] Encounter Details Date Type Department Care Team (Late st Contact Info) Description 08/17/2023 7:15 AM EDT Nurse Only Hematology Oncology [facility], [place] [address] [place], [place] [phone] [place], Nurse Lab Hem/Onc [address] [place], [place] [phone] Arrived Allergies No known active allergiesdocumented as [...] 8:00 AM EDT Hem/Onc Treatment Hematology Oncology [facility], [address] [address] [place], [facility] 20 Hem/Onc [address] [place] [address] Encounter for antineoplastic chemotherapy*; 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) 08/17/2023 2:00 PM EDT Hospital Encounter Radiology, [address] [address] 08/19/2023 11:00 AM EDT Hem/Onc Treatment [facility]ematology[facility]olog [facility], [facility] [address] [facility], Chair3 Hem Onc [address] [place] [address] 08/19/2023 11:00 AM EDT Office Visit Palliative Medicine, [address] [place] [address] Tessa Rubio PA-C [address] [place] [address] 08/21/2023 9:00 AM EDT Nurse Only Hematology Oncology [facility], [address] [address] [place], Nurse Lab Hem/Onc [address] [place] [address] 08/21/2023 10:00 AM EDT Hem/Onc Treatment Hematology Oncology [facility], [address] [address] [place], Chair 18 Hem/Onc [address] [place] [address] 08/21/2023 2:00 PM EDT Hospital Encounter Radiology, [address] [phone] 08/24/2023 8:00 AM EDT Immunization/Inject ion Hematology/Oncolog y Treatment, [address] [address] [facility], Chair1 Hem Onc [address] [place] [address] [place] [address] 08/25/2023 10:50 AM EDT Laboratory [address], [place] [address] [place] [phone] [place] [address] 08/26/2023 12:30 PM EDT Office Visit Hematology/Oncolog , [facility] 400 [facility] [place] [address] Lakeshia Stone CRNP [address] [place] [address] 08/27/2023 11:30 AM EDT Laboratory Laboratory [place] Garcia [address] [place] [place] [phone] [place] Reyn[address] [place] [address] [place] [address] 09/07/2023 2:00 PM EDT Appointment Radiology, [address] [address] 09/11/2023 2:00 PM EDT Appointment Radiology, [address] [address] 09/25/2023 2:40 PM EDT Office Visit Rheumatology [address] [place] [address] Oliver Zhang MD [address] [place] [address], [place] [address] 02/19/2024 12:00 PM EST Office Visit Family Practice [place] Garcia [address] [place] [address] Kayla Reeder DO [address] [place] [address] Pending Results Name Type Priority Associated Diagnoses [...] this encounter Medical Devices Implanted Type Area Ski Top Trimmer Device Identifier Shelf Expiration Date Model / Serial / Lot Mediport Pwr Mri 8fr [id number] - [id number] Implanted:Qty : 1 on 07/17/2023 by Medhat Angel MD at OR [facility] Right: Chest CR BARD : PERIPHERAL VASCULAR 07/16/2024 [id number] / / [id number] Port Implant W8f Poly Cath - [id number] Implanted:Qty : 1 on 07/17/2023 by Medhat Angel MD at OR [facility] CR BARD : PERIPHERAL VASCULAR [id number] 07/16/2024 [id number] / / [id number] documented as of this encounter Procedures Procedure [...] 10.80 K/uL 08/17/2023 7:30 AM EDT LABORATORY [facility] Neutrophils % 85.2(H) 40.0 - 75.0 % 08/17/2023 7:30 AM EDT LABORATORY [facility] Lymphocytes % 8.2(L) 18.0 - 42.0 % 08/17/2023 7:30 AM EDT LABORATORY [facility] Monocytes % 3.8 1.0 - 11.0 % 08/17/2023 7:30 AM EDT LABORATORY [facility] Eosinophils % 0.0 0.0 - 6.0 % 08/17/2023 7:30 AM EDT LAB[facility]ATORY [facility] Basophils % 0.5 0.0 - 2.0 % 08/17/2023 7:30 AM EDT LABORATORY [facility] Immature Granulocytes % 2.3(H) 0.0 - 2.0 % 08/17/2023 7:30 AM EDT LABORATORY [facility] Absolute Neutrophils 6.20 1.80 - 7.70 K/uL 08/17/2023 7:30 AM EDT LAB[facility]ATORY [facility] Absolute Lymphocytes 0.60(L) 1.00 - 4.80 K/ul 08/17/2023 7:30 AM EDT LAB[facility]ATORY [facility] Absolute Monocytes 0.28 0.00 - 1.10 K/uL 08/17/2023 7:30 AM EDT LABORATORY [facility] Absolute Eosinophils 0.00 0.00 - 0.70 K/uL 08/17/2023 7:30 AM EDT LAB[facility]ATORY [facility] Absolute Basophils 0.04 0.00 - 0.20 K/uL 08/17/2023 7:30 AM EDT LABORATORY [facility] Absolute Immature Granulocytes 0.17 0.00 - 0.20 K/uL 08/17/2023 7:30 AM EDT LAB[facility]ATORY [facility] Blood Blood sample taken from central line / Unknown Central Line / Unknown 08/17/2023 7:07 AM EDT 08/17/2023 7:27 AM EDT Mike Chaudhary MD LAB BLOOD O RDERABLES LABORATORY [facility] [address] [place] [address] * (ABNORMAL) CBC (08/17/2023 7:07 AM EDT) WBC 7.29 4.00 - 10.80 K/uL 08/17/2023 7:30 AM EDT LAB[facility]ATORY [facility] RBC 3.05 4.50 - 5.25 M/uL 08/17/2023 7:30 AM EDT LAB[facility]ATORY [facility] HGB 9.5(L) 14.0 - 16.8 g/dL 08/17/2023 7:30 AM EDT LAB[facility]ATORY [facility] HCT 29.1(L) 40.0 - 48.4 % 08/17/2023 7:30 AM EDT LABORATORY [facility] MCV 95.4 82.0 - 99.5 fL 08/17/2023 7:30 AM EDT LAB[facility]ATORY [facility] MCH 31.1 27.0 - 34.0 pg 08/17/2023 7:30 AM EDT LAB[facility]ORY [facility] MCHC 32.6 32.0 - 36.0 g/dL 08/17/2023 7:30 AM EDT LAB[facility]ORY [facility] RDW 19.3 11.5 - 15.5 % 08/17/2023 7:30 AM EDT LAB[facility]ATORY [facility] PLT 163 140 - 400 K/uL 08/17/2023 7:30 AM EDT LAB[facility]ATORY [facility] MPV 10.0 6.6 - 11.1 fL 08/17/2023 7:30 AM EDT LABORATORY [facility] nRBCs 0 <=0 /100 WBCs 08/17/2023 7:30 AM EDT LAB[facility]ORY [facility] Blood Blood sample taken from central line / Unknown Central Line / Unknown 08/17/2023 7:07 AM EDT 08/17/2023 7:27 AM EDT Mike Chaudhary MD LAB BLOOD O RDERABLES LAB[facility]ATORY [facility] [address] [place] [address] documented in this encounter Visit Diagnoses Diagnosis [...] Agents on File Name Relationship Healthcare Agent [employer] p Communication Trixie Le [facility] Repr esentative (appointed verbally by patient or by statute hierarchy) [email or web address] Care Teams Accounts Payable Administrator Relationship Specialty Start Date End Date [facility]la Reeder [facility] [address] [facility] [address] PCP - General Family Medicine 06/11/23 documented as of this encounter
--- OUTSIDE RECORDS SUMMARY | 2023-09-18 21:24 | External Medical Summary ---
Author Name Unknown Address Unknown Organization [id number]:[address] [address] Laboratory Report Ordering Provider Test Date Status MATTI BARAJAS 08/17/2023 07:07:00 Final Observation Date Value Abnormality Reference (Units ) Status SYNC LEUKOCYTES IN BLOOD BY AUTOMATED COUNT 08/17/2023 07:07:00 7.29 4.00-10.80 (K/uL) Final Segs 08/17/2023 07:07:00 85.2 Above high normal 40.0-75.0 (%) Final Lymphs % 08/17/2023 07:07:00 8.2 Below low normal 18.0-42.0 (%) Final Monos 08/17/2023 07:07:00 3.8 1.0-11.0 (%) Final Eosinophils 08/17/2023 07:07:00 0.0 0.0-6.0 (%) Final Basos 08/17/2023 07:07:00 0.5 0.0-2.0 (%) Final Immature Granulocyte, Percent 08/17/2023 07:07:00 2.3 Above high normal 0.0-2.0 (%) Final Absolute Segs 08/17/2023 07:07:00 6.20 1.80-7.70 (K/uL) Final Lymphs, absolute 08/17/2023 07:07:00 0.60 Below low normal 1.00-4.80 (K/ul) Final Monos, Abs 08/17/2023 07:07:00 0.28 0.00-1.10 (K/uL) Final Eos, Abs 08/17/2023 07:07:00 0.00 0.00-0.70 (K/uL) Final Basos, Abs 08/17/2023 07:07:00 0.04 0.00-0.20 (K/uL) Final Immature Granulocytes, Number 08/17/2023 07:07:00 0.17 0.00-0.20 (K/uL) Final Performing Location [facility] - [address] [facility] [address]
--- OUTSIDE RECORDS SUMMARY | 2023-09-18 21:24 | External Medical Summary | Summary of Care ---
Author Name Unknown Organization [facility] Address [address] [place] [address] Phone [phone] Care Team Providers Care Sugar Laboratory Assistant Name Role Phone Kayla Reeder DO Primary Care Provider [phone]- [phone] Encounter Details Date Type Department Care Team (Late st Contact Info) Description 08/17/2023 7:15 AM EDT Nurse Only Hematology Oncology [facility], [place] [address], [place] [phone] [place], Nurse Lab Hem/Onc [address], [place] [phone] Arrived Allergies No known active allergiesdocumented as [...] encounter Miscellaneous Notes * Addendum Note - Maricarmen Duran PBT - 08/17/2023 2:41 PM EDTAddended by: MARICARMEN DURAN on: 08/17/2023 02:41 PM Modules accepted: Orders * Addendum Note - Sampson Mosher TECH - 08/17/2023 7:53 AM EDTAddended by: SAMPSON MOSHER on: 08/17/2023 07:53 AM Modules accepted: Orders documented in this encounter Plan of Treatment Upcoming Encounters Date Type Department Care Team (Late st Contact Info) Description 08/19/2023 11:00 AM EDT Hem/Onc Treatment Hematology/Oncology Treatment, [facility] [address] [address] [facility], Chair3 Hem Onc [address] [address] 08/19/2023 11:00 AM EDT Office Visit Palliative Medicine, [address] [place] [address] Tessa Rubio PA-C [address] [place] [address] 08/21/2023 9:00 AM EDT Nurse Only Hematology Oncology [facility], [address] [address] [place], Nurse Lab Hem/Onc [address] [place] [address] 08/21/2023 10:00 AM EDT Hem/Onc Treatment Hematology Oncology [address] [address] [place], Chair 18 Hem/Onc [address] [place] [address] 08/21/2023 2:00 PM EDT Hospital Encounter Radiology, [address] [phone] 08/24/2023 7:00 AM EDT Laboratory Laboratory, [address] [phone] [facility], Lab [address] [place] [address] 08/24/2023 8:00 AM EDT Immunization/Injection Hematology/Oncology Treatment, [address] [address] [facility], Chair1 Hem Onc [address] [place] [address] 08/27/2023 10:30 AM EDT Laboratory Laboratory, [address] [address] [facility], Lab [address] [place] [address] 08/27/2023 11:30 AM EDT Office Visit Hematology/Oncology, [address] [address] Lakeshia Stone CRNP [address] [place] [address] 08/31/2023 10:00 AM EDT Laboratory Laboratory [facility] [place] [address] [facility] [place] [phone] [place], Lab [facility] [address] [facility] [place] [address] 09/04/2023 10:00 AM EDT Laboratory Laboratory, [address] [address] [facility], Lab [address] [place] [address] 09/04/2023 11:00 AM EDT Telemedicine Hematology/Oncology, [address] [address] Mike Chaudhary MD [address] [place] [address] Cart, Telemed [facility] Hem Onc Clinic [address] [place] [address] 09/07/2023 2:00 PM EDT Appointment Radiology, [place] [address] [place] [phone] 09/09/2023 11:00 AM EDT Hem/Onc Treatment Hematology/Oncology Treatment, [address] [place] [address] [facility], Chair1 Hem Onc [address] [place] [address] 09/11/2023 2:00 PM EDT Appointment Radiology, [place] [address] [place] [phone] 09/14/2023 7:00 AM EDT Laboratory Laboratory, [address] [address] [facility], Lab [address] [place] [address] 09/14/2023 8:00 AM EDT Immunization/Injection Hematology/Oncology Treatment, [address] [address] [facility], Chair1 Hem Onc [address] [place] [address] 09/18/2023 10:00 AM EDT Laboratory Laboratory, [address] [place] [address] [facility], Lab [address] [place] [address] 09/18/2023 11:00 AM EDT Telemedicine Hematology/Oncology, [address] [place] [address] Mike Chaudhary MD [address] [facility] [place] [address] [facility] Hem Onc Clinic [address] [place] [address] 09/25/2023 2:40 PM EDT Office Visit Rheumatology [facility], [place] [address] [place] [address] Oliver Zhang MD [facility] [place] [address] 02/19/2024 12:00 PM EST Office Visit Family 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) 08/17/2023 2:40 PM EDT Health Maintenance Due Date Last Done Comments COVID-19 Vaccine (#1) 1993 Influenza Vaccine (FLU shot) (#1) 2023 11/17/2016, 11/17/2016, 11/30/2015, Additional history exists Depression Screening 07/07/2024 07/08/2023, 06/11/19 24 Albumin/Creatinine Ratio Discontinued 08/02/2021 documented as of this encounter Medical Devices Implanted Type Area Hearing Aid Repairer Device Identifier Shelf Expiration Date Model / Serial / Lot Mediport Pwr Mri 8fr [id number] - [id number] Implanted:Qty : 1 on 07/17/2023 by Medhat Angel MD at [facility] Right: Chest CR BARD : PERIPHERAL VASCULAR 07/16/2024 [id number] / / [id number] Port Implant W8f Poly Cath - [id number] Implanted:Qty : 1 on 07/17/2023 by Medhat Angel MD at OR [facility] CR BARD : PERIPHERAL VASCULAR [id number] 07/16/2024 [id number] / / [id number] documented as of this encounter Procedures Procedure Name Priority Date/Time Associated Diagnosis Comments EXTRA GREEN TOP WITH GEL Routine 08/17/2023 [...] (HCC) documented in this encounter Results * EXTRA GREEN TOP WITH GEL (08/17/2023 7:07 AM EDT) Blood Venous blood specimen / Unknown 08/17/2023 7:07 AM EDT 08/17/2023 7:53 AM EDT Mike Chaudhary MD LAB BLOOD O RDERABLES LABORATORY [facility] [address] [place] [address] * (ABNORMAL) DIFFERENTIAL, AUTOMATED (08/17/2023 7:07 AM EDT) WBC 7.29 4.00 - 10.80 K/uL 08/17/2023 7:30 AM EDT [facility]ORY [facility] Neutrophils % 85.2(H) 40.0 - 75.0 % 08/17/2023 7:30 AM EDT LABORATORY [facility] Lymphocytes % 8.2(L) 18.0 - 42.0 % 08/17/2023 7:30 AM EDT LAB[facility]ATORY [facility] Monocytes % 3.8 1.0 - 11.0 % 08/17/2023 7:30 AM EDT LAB[facility]ATORY [facility] Eosinophils % 0.0 0.0 - 6.0 % 08/17/2023 7:30 AM EDT LAB[facility]ATORY [facility] Basophils % 0.5 0.0 - 2.0 % 08/17/2023 7:30 AM EDT LAB[facility]ATORY [facility] Immature Granulocytes % 2.3(H) 0.0 - 2.0 % 08/17/2023 7:30 AM EDT LAB[facility]ATORY [facility] Absolute Neutrophils 6.20 1.80 - 7.70 K/uL 08/17/2023 7:30 AM EDT LAB[facility]ATORY [facility] Absolute Lymphocytes 0.60(L) 1.00 - 4.80 K/ul 08/17/2023 7:30 AM EDT LAB[facility]ATORY [facility] Absolute Monocytes 0.28 0.00 - 1.10 K/uL 08/17/2023 7:30 AM EDT LAB[facility]ATORY [facility] Absolute Eosinophils 0.00 0.00 - 0.70 K/uL 08/17/2023 7:30 AM EDT LAB[facility]ATORY [facility] Absolute Basophils 0.04 0.00 - 0.20 K/uL 08/17/2023 7:30 AM EDT LAB[facility]ATORY [facility] Absolute Immature Granulocytes 0.17 0.00 - 0.20 K/uL 08/17/2023 7:30 AM EDT LAB[facility]ATORY [facility] Blood Blood sample taken from central line / Unknown Central Line / Unknown 08/17/2023 7:07 AM EDT 08/17/2023 7:27 AM EDT Mike Chaudhary MD LAB BLOOD O RDERABLES LAB[facility]ATORY [facility] [address] [place] [address] * (ABNORMAL) CBC (08/17/2023 7:07 AM EDT) WBC 7.29 4.00 - 10.80 K/uL 08/17/2023 7:30 AM EDT LAB[facility]ATORY [facility] RBC 3.05 4.50 - 5.25 M/uL 08/17/2023 7:30 AM EDT LAB[facility]ATORY [facility] HGB 9.5(L) 14.0 - 16.8 g/dL 08/17/2023 7:30 AM EDT LAB[facility]ATORY [facility] HCT 29.1(L) 40.0 - 48.4 % 08/17/2023 7:30 AM EDT LAB[facility]ATORY [facility] MCV 95.4 82.0 - 99.5 fL 08/17/2023 7:30 AM EDT LAB[facility]ATORY [facility] MCH 31.1 27.0 - 34.0 pg 08/17/2023 7:30 AM EDT LAB[facility]ATORY [facility] MCHC 32.6 32.0 - 36.0 g/dL 08/17/2023 7:30 AM EDT LAB[facility]ATORY [facility] RDW 19.3 11.5 - 15.5 % 08/17/2023 7:30 AM EDT LAB[facility]ATORY [facility] PLT 163 140 - 400 K/uL 08/17/2023 7:30 AM EDT LAB[facility]ATORY [facility] MPV 10.0 6.6 - 11.1 fL 08/17/2023 7:30 AM EDT LAB[facility]ATORY [facility] nRBCs 0 <=0 /100 WBCs 08/17/2023 7:30 AM EDT LAB[facility]ATORY [facility] Blood Blood sample taken from central line / Unknown Central Line / Unknown 08/17/2023 7:07 AM EDT 08/17/2023 7:27 AM EDT Mike Chaudhary MD LAB BLOOD O RDERABLES LAB[facility]ATORY [facility] [address] [place] [address] * (ABNORMAL) LD (08/17/2023 7:07 AM EDT) Pathologist [facility] LD 339(H) <=250 U/L 08/17/2023 8:18 AM EDT LABORATORY [facility] Blood Blood sample taken from central line / Unknown Central Line / Unknown 08/17/2023 7:07 AM EDT 08/17/2023 7:52 AM EDT Mike Chaudhary MD LAB BLOOD O RDERABLES LABORATORY [facility] [address] [place] [address] * URIC ACID (08/17/2023 7:07 AM EDT) [facility] [address] Uric Acid 4.5 3.4 - 7.0 mg/dL 08/17/2023 8:18 AM EDT LABORATORY [facility] Blood Blood sample taken from central line / Unknown Central Line / Unknown 08/17/2023 7:07 AM EDT 08/17/2023 7:52 AM EDT Mike Chaudhary MD LAB BLOOD O RDERABLES LABORATORY [facility] [address] [place] [address] * (ABNORMAL) COMPREHENSIVE METABOLIC PANEL (08/17/2023 7:07 AM EDT) [facility] [address] BUN 17 6 - 20 mg/dL 08/17/2023 8:18 AM EDT LABORATORY [facility] Creatinine 0.8 0.6 - 1.2 mg/dL 08/17/2023 8:18 AM EDT LABORATORY [facility] Estimated Glomerular Filtration Rate >90 >=60 mL/min 08/17/2023 8:18 AM EDT LABORATORY [facility] Comment:eGFR is calculated b ased on the CKD-EPI 2020 equation Sodium 139 135 - 146 mmol/L 08/17/2023 8:18 AM EDT LABORATORY [facility] Potassium 3.8 3.5 - 5.1 mmol/L 08/17/2023 [...] BLOOD O RDERABLES LAB[facility]ATORY [facility] [address] [place] [address] documented in this encounter Visit Diagnoses Diagnosis [...] Agents on File Name Relationship Healthcare Agent Relationsdc p Communication Trixie Le [facility] Repr esentative (appointed verbally by patient or by statute hierarchy) [email or web address] Care Teams Sugar Laboratory Assistant Relationship Specialty Start Date End Date Kayla Reeder DO [address] [facility] [place] [id number] PCP - General Family Medicine 06/11/23 documented as of this encounter
--- OUTSIDE RECORDS SUMMARY | 2023-09-18 21:24 | External Medical Summary ---
Author Name Unknown Address Unknown Organization K01:[facility] - [address] [place] [address] Laboratory Report Ordering Provider Test Date Status MATTI BARAJAS 08/17/2023 07:07:00 Final Observation Date Value Abnormality Reference (Units ) Status LDH 08/17/2023 07:07:00 339 Above high normal <= 250 (U/L) Final Performing Location [facility] - [address] [place] [address]
--- OUTSIDE RECORDS SUMMARY | 2023-09-18 21:24 | External Medical Summary | Summary of Care ---
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 30 Tablet 08/11/2023 09/10/19 24 Active HYDROmorphone HCl 2 MG Oral Tablet (Dilaudid) Take 1.5 Tablets by mouth every 4 hours as needed for moderate or severe pain 100 Tablet 07/07/2023 08/11/19 24 Discontinu ed(Refill) documented as of this encounter (statuses as of 08/16/2023) Active Problems Problem Noted Date Diagnosed Date [...] as of this encounter (statuses as of 08/16/2023) Resolved Problems Problem Noted Date Diagnosed Date [...] as of this encounter (statuses as of 08/16/2023) Immunizations Name Administration Dates Next Due DT [...] Sign Reading Time Taken Comments Blood Pressure 115/67 08/11/2023 12:56 PM EDT Pulse 73 08/11/2023 12:56 PM EDT Temperature 36.4 C (97.5 F) 08/11/2023 1 2:56 PM EDT Respiratory Rate - - Oxygen Saturation 100% 08/11/2023 12: 56 PM EDT Inhaled Oxygen Concentration - - Weight 112.6 kg (248 lb 4.8 oz) 024 12:56 PM EDT Height - - Body Mass Index 34.63 07/22/2023 9:20 AM EDT documented in this [...] Progress Notes * Lakeshia Stone CRNP - 08/11/2023 1:10 PM EDT Hematology/Oncology Outpatient Clinic note [facility] Hematology/Oncology, [address] [address] Name: Farhad Franco Date: 08/11/2023 CHIEF COMPLAINT: Farhad Franco is a 32 year old male patient of Dr. Mike Chaudhary here today for f/u visit today. From Patient chart confirmed with patient. From Lakeshia ZARAGOZA note 08/06/2023. Hematology/Oncology diagnosis: BL (Burkitt lymphoma): (June 2023) Sporadic variant, associated with EBV infection (EBV DNA, QN PCR= 32358). Also, patient with remotehistory of immunosuppressive meds. NEGATIVE HIV. High risk (retroperitoneal abdominal mass, > 7cm, High LDH). [email or web address] Bulky disease (single mass >7 cm) Stage III (Retroperitoneal disease), with no bone marrow, or INFORMATION CLERK BROKERAGE involvement (LP x 2, Rare atypicallymphocytes W/small lymphocytes favor reactive lymphomonocytosis, flow:no evidence of clonal or aberrant cells) Retroperitoneal biopsy; IHC: Aggressive CD10+ B-cell lymphoma with EBV expression. Ki-67 = 80-90%. Flow cytometry: WW67-[id number] B cell population expressing kappa light chains. FISH: t(8:14). 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) 06/25/2023 Initial Diagnosis B-cell lymphoma of intra-abdominal lymph nodes (HCC) 06/26/2023 - 07/09/2023 Chemotherapy CALGB 67022 Pre-Phase ONLY (1 Cycle/14 Days) [id number] 07/01/2023 - 07/01/2023 Chemotherapy OP CHOP-R every 21 days (Lymphoma) [id number] 07/02/2023 - 07/09/2023 Chemotherapy IP DA-EPOCH every 21 days (Lymphoma) [id number] 07/02/2023 - Supportive Therapy SCP - INTRATHECAL CHEMOTHERAPY (HEMATOLOGY) [id number] Plan Provider: Yaz Molina MD Treatment goal: Supportive Line of treatment: [No plan line of treatment] 07/24/2023 - Chemotherapy OP DA-EPOCH-R every 21 days (Clinic Administration 48hr EPOCH infusion) [id number] 07/27/2023 - 07/27/2023 Chemotherapy Outpatient DA R-EPOCH Home Health Administration (48hr EPOCH infusion) [id number] ECOG: Performance Status 1 = 80-90% Symptoms but nearly ambulatory History of present illness (at time of my initial evaluation on 07/27/2023 ): Farhad Franco is a 32 year old male , presented to my office today accompanied by his mother to establish care with outpatient partition notcher for evaluation, treatment of his newly diagnosed Burkittcell lymphoma. Patient lives 1 hour away from [facility]. He lives with his 4-year-old son. Patient is . He is on disability. Patient was admitted to [facility], and then transferred to [facility] because of Burkitt's lymphoma with hospital courses as below HOSPITAL COURSE (focused): - [facility] 06/20/2023 - 07/07/2023 (17 days): "Farhad Franco is 32 year old male with a past medical history significant for cerebral vasculitis (primary cerebral angiitis following Rheumatology in [place]) complicated by stroke at the age of7, migraine with aura, nephrolithiasis, petite mal seizures presented to [facility] with complaint of abdominal pain. Transferred from [facility] ER to [facility] to assess for IR biopsy in the setting of rapidly enlarging retroperitoneal mass on CT imaging. As per mother, he was on number of medications for his vasculitis like CellCept, Cytoxan, methotrexate from 1997 through 2014. Biopsy of retroperitoneal mass consistent with CD10 positive high-grade lymphoma with continued abdominal pain requiring morphine REFRIGERATION SUPERVISOR pump. His uric acid was elevated s/p [...] 06/25/23, lumbar puncture 07/02/23" HOSPITAL COURSE (focused) [facility]- 07/12/2023 - 07/14/2023 (2 days): 32 yo male presents to the [facility] ED c/o headache. Found to be [...] plan for close f/u with oncology OP. INTERVAL HISTORY: 08/06/2023 - His main concerns today are that he is tired and is experiencing heartburn every time he eats. Reports that he has not been sleeping enough at night because his room is the only one with AC so he shares it with his young son during this heat - is hopeful that once the heat passes he'll get more sleep and has also started taking naps during the day while family can watch his son. His dad is retired while his mom works. Explains that he has heartburn with eating food or drinking water, has been taking his pantoprazole at bedtime. Eating and drinking normally otherwise, appetite has been great, drinking about 4 pint bottles of water or Gatorade a day. Weight is stable. Denies any new pain today, but that he continues to have a dull ache on his back where they administer the IT chemo. Taking all supportive and pain medications as prescribed. Otherwise he states that he has had no other symptoms HISTORY OF PRESENT ILLNESS: Farhad Franco is a 32 year old male with a history as outlined above. Currently here for an acute visit today, accompanied by his father and his mom via telephone. He was in the [place] ER overthe weekend due to dehydration and generally feeling unwell. States that he just was not drinking much last week due to the heat wave and his indigestion. In the ER they gave him IV fluids and IV potassium. Mother is very concerned that he may be developing stomach ulcers. He reports that since receiving the IV fluids the "acid feeling" in his stomach has completely resolved and while still fatigued, he has been eating and drinking normally again and has felt much better. Continues to not sleepwell at night time, last night he woke up with an unpleasant dream and never fell back asleep. Explains that he doesn't like drinking water and has instead been drinking mostly lemonade, sometimes powerade or gatorade - drinking at least 48 ounces of fluids every day now. Otherwise no new concerns or symptoms since previous office visit five days ago. Denies fevers, chills, weakness, headaches, dizziness, SOB/MAHAN, chest pain or tightness, palpitations, lower extremity edema, abdominal pain, nausea, vomiting, diarrhea, constipation, hematuria, melena, or hematochezia. Past Medical History: Diagnosis Date Adjustment disorder with depressed mood 08/14/2009 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 Follows in [place] q6m Cerebrovascular accident (CVA) (HCC) Gastroesophageal reflux [...] performed by Laurence Dent MD at ENDOSCOPY [facility] EGD, FLEXIBLE, DIAGNOSTIC 02/05/2022 normal bx / ESOPHAGOGASTRODUODENOSCOPY (EGD), FLEXIBLE, TRANSORAL, DIAGNOSTIC performed by Laurence Dent MD at ENDOSCOPY [facility] INFORMATION Arteriograms. INSER TUNN ACC DEV;5 YRS/OLDER Right 07/17/2023 INSERT TUNNELED CENTRAL VENOUS ACCESS WITH SUBQ PORT performed by Medhat Angel MD at OR [facility] IR BIOPSY 06/22/2023 AR ANESTH,OPEN HEAD SURGERY Social History Socioeconomic History [...] Stability Do you currently live in a usp or have no steady place to sleep [...] Current Outpatient Medications Medication Sig Dispense Refill Famotidine 20 MG Oral Tablet (Pepcid) Take 1 Tablet by mouth in the morning. 30 Tablet 0 ASPIRIN 81 MG PO TABS one tablet [...] ONE PUFF BEFORE BEDTIME 60 Each 5 HYDROmorphone HCl 2 MG Oral Tablet (Dilaudid) Take 1.5 Tablets by mouth every 4 hours as needed formoderate or severe pain 100 Tablet 0 Sulfamethoxazole-Trimethoprim 400-80 MG Oral Tablet [...] other nostril. 2 Each 3 Magic Swizzle (Gmmaxdyce-Lpwkjigh-Kcnupg) oral solution Swish and spit 15 mL [...] of EPOCH treatment only. 75 Tablet 5 No current facility-administered medications for this visit. REVIEW OF SYSTEMS: See HPI - otherwise negative OBJECTIVE: Filed Vitals: 08/11/23 1256 BP: 115/67 Pulse: 73 Temp: 36.4 C (97.5 F) TempSrc: Tympanic SpO2: 100% Weight: 112.6 kg (248 lb 4.8 oz) Wt Readings from Last 5 Encounters: 08/11/23 112.6 kg (248 lb 4.8 oz) 08/06/23 114.7 kg (252 lb 14.4 oz) 07/31/23 115 kg (253 lb 8 oz) 07/29/23 115.7 kg (255 lb 1.6 oz) 07/27/23 114.6 kg (252 lb 10.4 oz) PHYSICAL EXAM: ECOG: Performance Status 1 [...] orders placed or performed in visit on 08/11/23 COMPREHENSIVE METABOLIC PANEL Result Value Ref Range BUN 6 6 - 20 mg/dL Creatinine 0.8 0.6 - 1.2 mg/dL Estimated Glomerular Filtration Rate >90 >=60 mL/min Sodium 141 135 - 146 mmol/L Potassium 4.1 3.5 - 5.1 mmol/L Chloride 107 98 - 107 mmol/L CO2 24 22 - 32 mmol/L Anion Gap 10 7 - 15 mmol/L Glucose 103 70 - 120 mg/dL Albumin 3.6 (L) 3.8 - 5.0 g/dL AST 19 10 - 50 U/L Alkaline Phosphatase 76 35 - 130 U/L Bilirubin, Total <0.2 <=1.2 mg/dL Calcium 9.2 8.4 - 10.2 mg/dL Protein 5.9 (L) 6.0 - 8.3 g/dL ALT 33 10 - 50 U/L URIC ACID Result Value Ref Range Uric Acid 4.8 3.4 - 7.0 mg/dL LD Result Value Ref Range LD 304 (H) <=250 U/L CBC Result Value Ref Range WBC 12.50 (H) 4.00 - 10.80 K/uL RBC 2.96 4.50 - 5.25 M/uL HGB 9.0 (L) 14.0 - 16.8 g/dL HCT 28.6 (L) 40.0 - 48.4 % MCV 96.6 82.0 - 99.5 fL MCH 30.4 27.0 - 34.0 pg MCHC 31.5 32.0 - 36.0 g/dL RDW 20.0 11.5 - 15.5 % PLT 102 (L) 140 - 400 K/uL MPV 11.2 6.6 - 11.1 fL nRBCs 1 (H) <=0 /100 WBCs DIFFERENTIAL, TECHNOLOGIST REVIEW Result Value Ref Range WBC 12.50 (H) 4.00 - 10.80 K/uL Neutrophils % 80.0 (H) 40.0 - 75.0 % Lymphocytes % 8.0 (L) 18.0 - 42.0 % Monocytes % 4.0 1.0 - 11.0 % Metamyelocytes % 7.0 (H) <=0.0 % Myelocytes % 1.0 (H) <=0.0 % Absolute Neutrophils 10.00 (H) 1.80 - 7.70 K/uL Absolute Lymphocytes 1.00 1.00 - 4.80 K/uL Absolute Monocytes 0.50 0.00 - 1.10 K/uL Absolute Metamyelocytes 0.88 (H) <=0.00 K/uL Absolute Myelocytes 0.13 (H) <=0.00 K/uL Toxic Granulation Moderate (A) None Seen IMAGING: FLUORO GUIDED CHEMO ADMIN INTO INFORMATION CLERK BROKERAGE Result Date: 07/22/2023 IMPRESSION Successful fluoroscopy guided lumbar puncture and intrathecal chemotherapy administration without immediate complication. IR INTERVENTIONAL RADIOLOGY PROCEDURE IN OR Result Date: 07/17/2023 IMPRESSION: Successful placement of a chest power injectable medical port. MRI BRAIN W WO CONTRAST Result Date: 07/13/2023 IMPRESSION: No acute intracranial abnormality nor suspicious lesion. Chronic left REFRIGERATION SUPERVISOR territory infarct. CTA HEAD/CTA NECK Result Date: [...] CMP with the patient and his dad ANC 3.33 --> 10.00 Hgb 10.1 --> 10.0 --> 9.0 PLT 205 --> 170 --> 64 --> 102 Medical Records Tech 0.9 --> 0.8 GFR >90 K 3.3 --> 3.1 --> 3.2 --> 4.1 AST <10 --> 19 ALT 35 --> 33 Uric Acid 4.8 Start Pepcid 20 mg PO once daily for heartburn/indigestion Can use OTC TUMS PRN Continue taking Protonix [address] tablet once daily in the morning at least 30 minutes to 1 hour before food Continue Zofran for PRN nausea and vomiting Encouraged him to reach out any time he is eating or drinking less for any reason Recently completed Cycle 2 of DA-EPOCH-R on 08/03/2023 with Cycle 3 Day 1 scheduled 08/17/2023 Labs twice weekly: CBC/diff, CMP, Uric Acid and LDH UA to be processed on treatment Day 1 Completed Cycle 1 da-R-EPOCH 07/02/2023 - 07/06/2023, pegfilgrastim 6 mg subcutaneously given on 07/09/[address] scheduled tomorrow 08/12/2023 Remain alert and contact the clinic with any new fevers, headaches, vision changes or signs of increased bruising or bleeding Use Emla cream on port 1 hour prior to accessing Continue taking supportive medications as prescribed Allopurinol, Fluconazole, Bactrim and Acyclovir Levaquin for when ANC < 500 Continue Potassium Chloride 20 mEq BID for hypokalemia Palliative Medicine following, next appointment 08/14/2023 RTC as scheduled with Dr. Chaudhary, with CBC/diff, CMP, Uric Acid, UA and LDH NIK [facility]ille documented in this encounter Nursing Notes * Brayan Dempsey, SAMANTHA ASSIST - 08/11/2023 12:59 PM EDT Chief Complaint Patient presents with Follow Up Provider aware of VS. BP 115/67 | Pulse 73 | Temp 36.4 C (97.5 F) (Tympanic) | Wt 112.6 kg (248 lb 4.8 oz) | SpO2 100% | BMI 34.63 kg/m | BSA 2.37 m Patient was instructed to not get [...] Care Team (Latest Contact Info) Description 08/17/2023 7:15 AM EDT Nurse Only Hematology Oncology [facility], [address] [address] [place], Nurse Lab Hem/Onc [address] [place] [address] 08/17/2023 8:00 AM EDT Hem/Onc Treatment Hematology Oncology [facility], [address] [address] [place], Chair 20 Hem/Onc [address] [place] [address] Encounter for antineoplastic chemotherapy*; 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) 08/17/2023 2:00 PM EDT Hospital Encounter Radiology, [address] [phone] 08/19/2023 11:00 AM EDT Hem/Onc Treatment Hematology/[address]colog [address] Treatment, [address] [address] [facility], Chair3 [facility] [address] [facility] [phone] 08/19/2023 11:00 AM EDT Office Visit Palliative Medicine, [facility] [address] [facility] 5th Floor [place] [place] [address] Tessa Rubio, PA-C [address] [facility] [address] 08/21/2023 9:00 AM EDT Nurse Only Hematology Oncology [facility], [address] [address] [place], Nurse Lab Hem/Onc [address] [place] [address] 08/21/2023 10:00 AM EDT Hem/Onc Treatment Hematology Oncology [facility], [address] [address] [place], Chair 18 Hem/Onc [address] [place] [address] 08/21/2023 2:00 PM EDT Hospital Encounter Radiology, [address] [phone] 08/24/2023 8:00 AM EDT Immunization/Inject ion Hematology/Oncolog y Treatment, [address] [address] [facility], Chair1 Hem Onc [address] [place] [address] 08/25/2023 10:50 AM EDT [facility] [address] [facility] ER[address] [place] [phone] Violette Reyna [facility] [address] [facility] [place] [place] [address] 08/26/2023 12:30 PM EDT Office Visit Hematology/Oncolog y, [address] [address] Lakeshia Stone CRNP [address] [place] [address] 08/27/2023 11:30 AM EDT Laboratory Laboratory [place] JoseMaribell [address] [facility] ER[address] [place] [phone] Violette Reyna [facility] [address] [facility] [place] [place] [address] 09/07/2023 2:00 PM EDT Appointment Radiology, [address] [phone] 09/11/2023 2:00 PM EDT Appointment Radiology, [address] [phone] 09/25/2023 2:40 PM EDT Office Visit Rheumatology [address] [place] [address] Oliver Zhang MD [facility] [place] [place] [address] 02/19/2024 12:00 PM EST Office Visit Family Practice [place] Jose [place] [address] [facility] [place] [place] [address] Kayla Reeder DO [address] [place] [address] Health Maintenance Due Date Last Done Comments COVID-19 Vaccine (#1) 1993 Influenza Vaccine (FLU shot) (Season Ended) 2023 11/17/2016, 11/17/2016, 11/30/2015, Additional history exists Depression Screening 07/07/2024 07/08/2023, 06/11/19 24 Albumin/Creatinine Ratio Discontinued 08/02/2021 documented as of this encounter Medical Devices Implanted Type Area Boiler Fireman Device Identifier Shelf Expiration Date Model / Serial / Lot Mediport Pwr Mri 8fr [id number] - [id number] Implanted:Qty : 1 on 07/17/2023 by Medhat Angel MD at [facility] Right: Chest CR BARD : PERIPHERAL VASCULAR 07/16/2024 [id number] / / [id number] Port Implant W8f Poly Cath - [id number] Implanted:Qty : 1 on 07/17/2023 by Medhat Angel MD at OR [facility] BARD : PERIPHERAL VASCULAR [id number] 07/16/2024 [id number] / / [id number] documented as of this encounter Visit Diagnoses Diagnosis Dehydration- Primary 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) Other malignant lymphomas of intra-abdominal lymph nodes 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) Burkitt's tumor or lymphoma of intra-abdominal lymph nodes Chemotherapy induced nausea and vomiting Nausea with vomiting Pancytopenia due to chemotherapy (HCC) Antineoplastic chemotherapy induced pancytopenia Acid indigestion Dyspepsia and other specified disorders of function of stomach Encounter for antineoplastic chemotherapy- Primary Burkitt lymphoma [...] Healthcare Agent [facility] Communication Trixie Le [facility] Repr esentative (appointed verbally by patient or by statute hierarchy) [email or web address] Care Teams Repairer Sash And Door Relationship Specialty Start Date End Date Kayla Reeder DO [address] [facility] [place] [place] [address] PCP - General Family Medicine 06/11/23 documented as of this encounter
--- OUTSIDE RECORDS SUMMARY | 2023-09-18 21:24 | External Medical Summary ---
Author Name Unknown Address Unknown Organization K01:[facility] [address] [facility] [address] Laboratory Report Ordering Provider Test Date Status MATTI BARAJAS 08/17/2023 14:40:45 Final Some reference ranges and ot her method performance specifications have not been established for this fluid. The test results must be integrated into the clinical context for interpretation. Observation Date Value Abnormality Reference (Units ) Status SYNC TOTAL NUCLEATED CELLS, CSF 08/17/2023 14:40:45 55 (cells/uL) Final Neutrophils/100 leukocytes in Cerebral spinal fluid 08/17/2023 14:40:45 43 Above high normal 0-6 (%) Final Lymphocytes/100 leukocytes in Cerebral spinal fluid 08/17/2023 14:40:45 34 Below low normal 40-80 (%) Final Monocytes/100 leukocytes in Cerebral spinal fluid 08/17/2023 14:40:45 23 15-45 (%) Final Neutrophils [#/volume] in Cerebral spinal fluid 08/17/2023 14:40:45 23.65 (cells/uL) Final Lymphocytes [#/volume] in Cerebral spinal fluid 08/17/2023 14:40:45 18.70 (cells/uL) Final Monocytes [#/volume] in Cerebral spinal fluid 08/17/2023 14:40:45 12.65 (cells/uL) Final Performing Location [facility] - [address] [facility] [address]
--- OUTSIDE RECORDS SUMMARY | 2023-09-18 21:24 | External Medical Summary | Summary of Care ---
Author Name Unknown Organization [facility] Address [address] [place] [address] Phone [phone] Care Team Providers Care Stamp Collector Name Role Phone ReederMelissarosio Clarke DO Primary Care Provider [phone] Reason for Visit * Reason Comments Follow Up Encounter Details Date Type Department Care Team ([facility] st Contact Info) Description 08/14/2023 10:00 AM EDT Telemedicine Hematology/Oncology , [facility] [address] [place] [address] Mike Chaudhary MD [address] [place] [address] [facility] [address] [place] [address] Burkitt lymphoma of intra-abdominal [...] or Pain, Severe. 60 Tablet 08/12/2023 Active documented as of this encounter (statuses [...] two unique identifiers. Patient (or authorized legal marketing development representative) was then informed that this was [...] that I have reviewed their record in [employer] and presented the opportunity for them to ask any questions regarding the visit today. The patient agreed to participate. 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 Also, patient with remotehistory of immunosuppressive meds. NEGATIVE HIV. High risk (retroperitoneal abdominal mass, > 7cm, High LDH). 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 Ki-67 = 80-90%. Flow cytometry: RV87-gjxdwraz B cell population expressing kappa light chains. FISH: t(8:14). 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 H/O seizures, last was in high school, has been on Depakote and toapmax for years Cognitive, and learning disabilities Gout HTN Former smoker, quit 2 years ago Treatment rendered: [facility] 1002 Pre-phase: Cyclophosphamide 200 mg/m2 IV days 1-5 (06/26/23-06/30/23) Prednisone 60 mg/m2 PO days 1-7 IT MTX 12 mg (07/02/23, 07/22/23) Current treatment: [email or web address]://[email or web address].org/doi/10.1200/[email or web address] Risk-adapted DA-EPOCH-R Q 21 days, with G-CSF [...] lymph nodes (HCC) 06/26/2023 - 07/09/2023 Chemotherapy [facility] [address]49 Pre-Phase ONLY (1 Cycle/14 Days) [id number] 07/01/2023 - 07/01/2023 Chemotherapy OP CHOP-R every 21 days (Lymphoma) [id number] 07/02/2023 - 07/09/2023 Chemotherapy IP DA-EPOCH every 21 days (Lymphoma) [id number] 07/02/2023 - Supportive Therapy SCP - INTRATHECAL CHEMOTHERAPY (HEMATOLOGY) [id number] Plan Provider: Yaz Molina MD Treatment goal: Supportive Line of treatment: [No plan line of treatment] 07/24/2023 - Chemotherapy OP DA-EPOCH-R every 21 days (Clinic Administration 48hr EPOCH infusion) [id number] 07/27/2023 - 07/27/2023 Chemotherapy Outpatient DA R-EPOCH Home Health Administration (48hr EPOCH infusion) [id number] 08/11/2023 - Supportive Therapy SCP - PORT [...] his mother to establish care with outpatient fabric sourcer for evaluation, treatment of his newly diagnosed Burkittcell lymphoma. Patient lives 1 hour away from [facility]. He lives with his 4-year-old son. Patient is . He is on disability. Patient was admitted to [facility], and then transferred to [facility] because of Burkitt's lymphoma with hospital courses as below HOSPITAL COURSE (focused): - [facility] 06/20/2023 - 07/07/2023 (17 days): "Farhad Franco is 32 year old male with a past medical history significant for cerebral vasculitis (primary cerebral angiitis following Rheumatology in [place]) complicated by stroke at the age of7, migraine with aura, nephrolithiasis, petite mal seizures presented to [facility] with complaint of abdominal pain. Transferred from [facility] ER to [facility] to assess for IR biopsy in the setting of rapidly enlarging retroperitoneal mass on CT imaging. As per mother, he was on number of medications for his vasculitis like CellCept, Cytoxan, methotrexate from 1997 through 2014. Biopsy of retroperitoneal mass consistent with CD10 positive high-grade lymphoma with continued abdominal pain requiring morphine BILLING AND QUALITY TECHNICIAN pump. His uric acid was elevated [...] 06/25/23, lumbar puncture 07/02/23" HOSPITAL COURSE (focused) [facility]- 07/12/2023 - 07/14/2023 (2 days): 32 yo male presents to the [facility] ED c/o headache. Found to be [...] performed by Laurence Dent MD at ENDOSCOPY [facility] EGD, FLEXIBLE, DIAGNOSTIC 02/05/2022 normal bx / ESOPHAGOGASTRODUODENOSCOPY (EGD), FLEXIBLE, TRANSORAL, DIAGNOSTIC performed by Laurence Dent MD at ENDOSCOPY [facility] INFORMATION Arteriograms. INSER TUNN ACC DEV;5 YRS/OLDER Right 07/17/2023 INSERT TUNNELED CENTRAL VENOUS ACCESS WITH SUBQ PORT performed by Medhat Angel MD at OR [facility] IR BIOPSY 06/22/2023 NC ANESTH,OPEN HEAD SURGERY Social History Tobacco Use [...] other nostril. 2 Each 3 Magic Swizzle (Zeitjvcdt-Vfwypkrm-Fjxvns) oral solution Swish and spit 15 mL [...] Normocephalic, No masses, lesions, tenderness or abnormalities Lymph: no palpable lymphadenopathy Heart: regular rate & rhythm, no murmur, and no gallops Lungs: chest symmetric with normal AP diameter, no chest deformities noted, no chest wall tenderness, lungs clear to auscultation Abdomen: abdomen soft, non-tender, normal bowel sounds, and no masses or organomegaly Extremities: no edema, no clubbing, no cyanosis Skin: skin color, texture, turgor are normal, no rashes or significant lesions Labs: Results for orders placed or performed [...] WBCs Imaging: FLUORO GUIDED CHEMO ADMIN INTO REFRIGERATOR CRATER Result Date: 07/22/2023 IMPRESSION Successful fluoroscopy guided lumbar puncture and intrathecal chemotherapy administration without immediate complication. IR INTERVENTIONAL RADIOLOGY PROCEDURE IN OR Result Date: 07/17/2023 IMPRESSION: Successful placement of a chest power injectable medical port. MRI BRAIN W WO CONTRAST Result Date: 07/13/2023 IMPRESSION: No acute intracranial abnormality nor suspicious lesion. Chronic left BILLING AND QUALITY TECHNICIAN territory infarct. CTA HEAD/CTA NECK Result [...] Retroperitoneum, CT guided fine needle aspiration: - RZ75-pzbanswm B-cell lymphoma expressing EBV and t(8:14), consistent [...] and specimens are preparedfor cell blocks at [facility]. The cell blocks are submitted in cassettes A1/A3 and processed at [facility]./MZ Prepared by: XIMENA Formalin fixation time: 10 [...] controls. CD3 stain background small sized T-cells. [place]-5 stains B-cells and is diffusely positive in [...] Villafuerte DO Time: 12:37 Source: Retroperitoneum Part: [id number] Pass(es): 1 Adequacy: Less than optimal/Material collected [...] . Flow Interpretation Retroperitoneum core biopsy: - HQ08-szjadfsv B cell population expressing kappa light chains. [...] with a benign lymphoid population (linked report [id number]). Bone Marrow Aspirate Differential Value % Reference [...] with EBV infection (EBV DNA, QN PCR= 28007). Also, patient with remotehistory of immunosuppressive meds. NEGATIVE HIV. High risk (retroperitoneal abdominal mass, > 7cm, High LDH). [email or web address]/doi/10.1200/[email or web address] Bulky disease (single mass >7 cm) Stage III (Retroperitoneal disease), with no bone marrow, or REFRIGERATOR CRATER involvement (LP x 2, Rare atypicallymphocytes W/small lymphocytes favor reactive lymphomonocytosis, flow:no evidence of clonal or aberrant cells) Retroperitoneal biopsy; IHC: Aggressive CD10+ B-cell lymphoma with EBV expression. Ki-67 = 80-90%. Flow cytometry: ZQ16-fksftjgx B cell population expressing kappa light chains. 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 Patient has 1 son, and he is [...] We also discussed that nvolvement of the REFRIGERATOR CRATER occurs in up to 20% of cases ( but he was negative for REFRIGERATOR CRATER involvement), and the bone marrow is involved [...] IT methotrexate. Plan: PET-CT-2 on 08/12/23 reviewed, Deauville score 1. Significant decrease in size and [...] of every cycle, will be managed between [place], and [facility]. He is scheduled with IR in [place] for IT methotrexate on day 1, day [...] x 2 did not show evidence of REFRIGERATOR CRATER involvement. So plan is to proceed with [...] By: Hem/Onc --- Protocol: SCP - HYDRATION [id number] Check-out note: RTC on 08/16 to [place] for C3D1 DA EPOCH-R (Then through the rest of the week between [facility] and [place]) Need IT MTX on D1 and D5 of each cycle by IR in [place] Need bag change Q 48 hrs IVF three times weekly on week of chemo RTC on Wednesday 08/23 for G-CSF shot CBC/Diff, CMP, LDH, twice weekly RTC with AP weekly for toxicity visit Need to be seen by Neena prior to each chemo cycle This chart was completed in part utilizing [employer] Speech Voice Recognition Software. Grammatical errors, random [...] time spent to review old records from [place], multiple recent hospitalizations, chemotherapy regimens, discussing with [...] 7:15 AM EDT Nurse Only Hematology Oncology [facility], [place] [address] [place] [address] [place], Nurse Lab Hem/Onc [address] [place] [address] 08/17/2023 8:00 AM EDT Hem/Onc Treatment Hematology Oncology [facility], [address] [address] [place], Chair 20 Hem/Onc [address] [place] [address] 08/17/2023 2:00 PM EDT Hospital Encounter Radiology, [address] [address] 08/19/2023 11:00 AM EDT Hem/Onc Treatment Hematology/Oncology Treatment, [address] [address] [facility], Chair3 Hem Onc [address] [place] [address] 08/19/2023 11:00 AM EDT Office Visit Palliative Medicine, [address] [place] [address] Tessa Rubio, PA-C [address] [place] [address] 08/21/2023 9:00 AM EDT Nurse Only Hematology Oncology [facility], [address] [address] [place], Nurse Lab Hem/Onc [address] [place] [address] 08/21/2023 10:00 AM EDT Hem/Onc Treatment Hematology Oncology [facility], [address] [address] [place], Chair 18 Hem/Onc [address] [place] [address] 08/21/2023 2:00 PM EDT Hospital Encounter Radiology, [address] [address] 08/24/2023 8:00 AM EDT Immunization/Injectio n Hematology/Oncology Treatment, [address] [address] [facility], Chair1 Hem Onc [address] [place] [address] 08/25/2023 10:50 AM EDT Laboratory Laboratory [place] [address] [facility] [place] [phone] [place] [facility] [address] [place] [address] 08/26/2023 12:30 PM EDT Office Visit Hematology/Oncology, [address] [address] Lakeshia Stone CRNP [address] [place] [address] 08/27/2023 11:30 AM EDT Laboratory Laboratory [place] [address] [place] [phone] [place] [address] [facility] [place] [address] 09/07/2023 2:00 PM EDT Appointment Radiology, [address] [place] [address] 09/11/2023 2:00 PM EDT Appointment Radiology, [address] [place] [address] 09/25/2023 2:40 PM EDT Office Visit Rheumatology [address] [place] [address] Oliver Zhang MD [address] [place] [address] [place] [address] 02/19/2024 12:00 PM EST Office Visit Family Practice [address], [place] [address] [place] [address] Kayla Reeder DO [address] [place] [address] Health Maintenance Due Date Last Done Comments COVID-19 Vaccine (#1) 1993 Influenza Vaccine (FLU shot) (Season Ended) 2023 11/17/2016, 11/17/2016, 11/30/2015, Additional history exists Depression Screening 07/07/2024 07/08/2023, 06/11/19 24 Albumin/Creatinine Ratio Discontinued 08/02/2021 documented as of this encounter Medical Devices Implanted Type Area Wetlands Conservation Laborer Device Identifier Shelf Expiration Date Model / Serial / Lot Mediport Pwr Mri 8fr [id number] - [id number] Implanted:Qty : 1 on 07/17/2023 by Medhat Angel MD at OR [facility] Right: Chest CR BARD : PERIPHERAL VASCULAR 07/16/2024 [id number] / / [id number] Port Implant W8f Poly Cath - [id number] Implanted:Qty : 1 on 07/17/2023 by Medhat Angel MD at OR [facility] CR BARD : PERIPHERAL VASCULAR [id number] 07/16/2024 [id number] / / [id number] documented as of this encounter Visit Diagnoses [...] medication monitoring Encounter for therapeutic drug monitoring Encounter for antineoplastic chemotherapy- Primary Burkitt lymphoma [...] Agents on File Name Relationship Healthcare Agent [facility] Communication Trixie [facility] Repr esentative (appointed verbally by patient or by statute hierarchy) [email or web address] Care Teams Stamp Collector Relationship Specialty Start Date End Date Kayla Reeder DO [address] [facility] [place] [address] PCP - General Family Medicine 06/11/23 documented as of this encounter
--- OUTSIDE RECORDS SUMMARY | 2023-09-18 21:24 | External Medical Summary ---
Author Name Unknown Address Unknown Organization K01:[facility] [address] [facility] [address] Laboratory Report Ordering Provider Test Date Status MATTI BARAJAS 08/17/2023 07:07:00 Final Observation Date Value Abnormality Reference (Units ) Status WBC, Total 08/17/2023 07:07:00 7.29 4.00-10.80 (K/uL) Final RBC 08/17/2023 07:07:00 3.05 4.50-5.25 (M/uL) Final Hemoglobin 08/17/2023 07:07:00 9.5 Below low normal 14.0-16.8 (g/dL) Final HCT 08/17/2023 07:07:00 29.1 Below low normal 40.0-48.4 (%) Final MCV 08/17/2023 07:07:00 95.4 82.0-99.5 (fL) Final MCH 08/17/2023 07:07:00 31.1 27.0-34.0 (pg) Final MCHC 08/17/2023 07:07:00 32.6 32.0-36.0 (g/dL) Final RDW 08/17/2023 07:07:00 19.3 11.5-15.5 (%) Final Platelets 08/17/2023 07:07:00 163 140-400 (K/uL) Final MPV 08/17/2023 07:07:00 10.0 6.6-11.1 (fL) Final Nucleated erythrocytes/100 leukocytes [Ratio] in Blood by Automated count 08/17/2023 07:07:00 0 <=0 (/100 WBCs) Final Performing Location [facility] [address] [facility] [address]
--- OUTSIDE RECORDS SUMMARY | 2023-09-18 21:24 | External Medical Summary ---
Author Name Unknown Address Unknown Organization K01:[facility] - [address] [facility] [place] [address] Laboratory Report Ordering Provider Test Date Status MATTI BARAJAS 08/17/2023 07:07:00 Final Observation Date Value Abnormality Reference (Units ) Status BUN 08/17/2023 07:07:00 17 6-20 (mg/dL) Final Creatinine 08/17/2023 07:07:00 0.8 0.6-1.2 (mg/dL) Final Glomerular filtration rate/1.73 sq M.predicted [Volume Rate/Area] in Serum, Plasma or Blood by Creatinine-based formula (CKD-EPI) 08/17/2023 07:07:00 >90 >=60 (mL/min) Final eGFR is calculated based on the CKD-EPI 2020 equation Sodium 08/17/2023 07:07:00 139 135-146 (m mol/L) Final Potassium 08/17/2023 07:07:00 3.8 3.5-5.1 (m mol/L) Final Cl 08/17/2023 07:07:00 106 98-107 (mm ol/L) Final CO2 08/17/2023 07:07:00 21 Below low normal 22- 32 (mmol/L) Final Anion gap 08/17/2023 07:07:00 12 7-15 (mmol /L) Final Glucose 08/17/2023 07:07:00 148 Above high normal 70 -120 (mg/dL) Final Albumin 08/17/2023 07:07:00 4.2 3.8-5.0 (g /dL) Final AST (Aspartate aminotransferase) 08/17/2023 07:07:00 25 10-50 (U/L) Fin al Alk Phos 08/17/2023 07:07:00 80 35-130 (U/ L) Final Bilirubin, Total 08/17/2023 07:07:00 0.2 <=1 .2 (mg/dL) Final Calcium 08/17/2023 07:07:00 9.4 8.4-10.2 ( mg/dL) Final Protein 08/17/2023 07:07:00 6.7 6.0-8.3 (g /dL) Final ALT (Alanine aminotransferase) 08/17/2023 07:07:00 43 10-50 (U/L) Jaswinder mullen Performing Location [facility]ORY [facility] - [facility] [address]. [facility] [address]
--- OUTSIDE RECORDS SUMMARY | 2023-09-18 21:24 | External Medical Summary | Summary of Care ---
Author Name Unknown Organization [facility] Address [address] [place] [address] Phone [phone] Care Team Providers Care Straight Slicing Machine Operator Name Role Phone Kayla Reeder DO Primary Care Provider +1- [phone] Encounter Details Date Type Department Care Team (Late st Contact Info) Description 08/17/2023 7:15 AM EDT Nurse Only Hematology Oncology [facility], [place] [address], [place] [id number] [place], Nurse Lab Hem/Onc [address], [place] [id number] Arrived Allergies No known active allergiesdocumented as [...] 8:00 AM EDT Hem/Onc Treatment Hematology Oncology [facility], [address] [address] [place], Chair 20 Hem/Onc [address] [place] [address] Encounter for antineoplastic chemotherapy*; Burkitt lymphoma of intra-abdominal lymph nodes (HCC) 08/17/2023 2:00 PM EDT Hospital Encounter Radiology, [address] [address] 08/19/2023 11:00 AM EDT Hem/Onc Treatment Hematology/Oncolog y Treatment, [address] [place] [address] [facility], Chair3 Hem Onc [address] [place] [address] [place] [address] 08/19/2023 11:00 AM EDT Office Visit Palliative Medicine, [address] 5th [place] [address] Tessa Rubio PA-C [address] [place] [address] 08/21/2023 9:00 AM EDT Nurse Only Hematology Oncology [facility], [address] [address] [place], Nurse Lab Hem/Onc [address] [place] [address] 08/21/2023 10:00 AM EDT Hem/Onc Treatment Hematology Oncology [address] [address] [place], Chair 18 Hem/Onc [address] [place] [address] 08/21/2023 2:00 PM EDT Hospital Encounter Radiology, [address] [phone] 08/24/2023 8:00 AM EDT Immunization/Inject ion Hematology/Oncolog y Treatment, [address] [address] [facility], Chair1 Hem Onc [address] [place] [address] 08/25/2023 10:50 AM EDT Laboratory Laboratory [facility] [address] [facility] [place] [phone] [place], [address] [facility] [place] [address] 08/26/2023 12:30 PM EDT Office Visit Hematology/Oncolog y, [address] [address] Lakeshia Stone CRNP [address] [place], [place] [address], [place] [address] 08/27/2023 11:30 AM EDT Laboratory Laboratory [place] Garcia [address] [place] [phone] [place], [facility] [address] [facility] [place] [address] 09/07/2023 2:00 PM EDT Appointment Radiology, [address] [address] 09/11/2023 2:00 PM EDT Appointment Radiology, [address] [address] 09/25/2023 2:40 PM EDT Office Visit Rheumatology [place] [address] [facility] [address] Oliver Zhang MD [facility] [address] [place] [address] 02/19/2024 12:00 PM EST Office Visit Family Practice [place] [address] [facility] [place] [address] Kayla Reeder DO [address] [facility] [place] [address] Health Maintenance Due Date Last Done Comments COVID-19 Vaccine (#1) 1993 Influenza Vaccine (FLU shot) (#1) 2023 11/17/2016, 11/17/2016, 11/30/2015, Additional history exists Depression Screening 07/07/2024 07/08/2023, 06/11/19 24 Albumin/Creatinine Ratio Discontinued 08/02/2021 documented as of this encounter Medical Devices Implanted Type Area Radiation Officer Device Identifier Shelf Expiration Date Model / Serial / Lot Mediport Pwr Mri 8fr [id number] - [id number] Implanted:Qty : 1 on 07/17/2023 by Medhat Angel MD at OR [facility] Right: Chest CR BARD : PERIPHERAL VASCULAR 07/16/2024 [id number] / / [id number] Port Implant W8f Poly Cath - [id number] Implanted:Qty : 1 on 07/17/2023 by Medhat Angel MD at [facility] CR BARD : PERIPHERAL VASCULAR [id number] 07/16/2024 [id number] / / [id number] documented as of this encounter Procedures Procedure [...] 10.80 K/uL 08/17/2023 7:30 AM EDT [facility] Neutrophils % 85.2(H) 40.0 - 75.0 % 08/17/2023 7:30 AM EDT [facility] Lymphocytes % 8.2(L) 18.0 - 42.0 % 08/17/2023 7:30 AM EDT [facility] Monocytes % 3.8 1.0 - 11.0 % 08/17/2023 7:30 AM EDT [facility] Eosinophils % 0.0 0.0 - 6.0 % 08/17/2023 7:30 AM EDT [facility] Basophils % 0.5 0.0 - 2.0 % 08/17/2023 7:30 AM EDT [facility] Immature Granulocytes % 2.3(H) 0.0 - 2.0 % 08/17/2023 7:30 AM EDT LABORATORY [facility] Absolute Neutrophils 6.20 1.80 - 7.70 K/uL 08/17/2023 7:30 AM EDT LABORATORY [facility] Absolute Lymphocytes 0.60(L) 1.00 - 4.80 K/ul 08/17/2023 7:30 AM EDT LABORATORY [facility] Absolute Monocytes 0.28 0.00 - 1.10 K/uL 08/17/2023 7:30 AM EDT LABORATORY [facility] Absolute Eosinophils 0.00 0.00 - 0.70 K/uL 08/17/2023 7:30 AM EDT LABORATORY [facility] Absolute Basophils 0.04 0.00 - 0.20 K/uL 08/17/2023 7:30 AM EDT LABORATORY [facility] Absolute Immature Granulocytes 0.17 0.00 - 0.20 K/uL 08/17/2023 7:30 AM EDT LABORATORY [facility] Blood Blood sample taken from central line / Unknown Central Line / Unknown 08/17/2023 7:07 AM EDT 08/17/2023 7:27 AM EDT Mike Chaudhary MD LAB BLOOD O RDERABLES LABORATORY [facility] [address] [place] [address] * (ABNORMAL) CBC (08/17/2023 7:07 AM EDT) WBC 7.29 4.00 - 10.80 K/uL 08/17/2023 7:30 AM EDT LABORATORY [facility] RBC 3.05 4.50 - 5.25 M/uL 08/17/2023 7:30 AM EDT LABORATORY [facility] HGB 9.5(L) 14.0 - 16.8 g/dL 08/17/2023 7:30 AM EDT LABORATORY [facility] HCT 29.1(L) 40.0 - 48.4 % 08/17/2023 7:30 AM EDT LABORATORY [facility] MCV 95.4 82.0 - 99.5 fL 08/17/2023 7:30 AM EDT LABORATORY [facility] MCH 31.1 27.0 - 34.0 pg 08/17/2023 7:30 AM EDT LABORATORY [facility] MCHC 32.6 32.0 - 36.0 g/dL 08/17/2023 7:30 AM EDT LABORATORY [facility] RDW 19.3 11.5 - 15.5 % 08/17/2023 7:30 AM EDT LABORATORY [facility] PLT 163 140 - 400 K/uL 08/17/2023 7:30 AM EDT LABORATORY [facility] MPV 10.0 6.6 - 11.1 fL 08/17/2023 7:30 AM EDT LABORATORY [facility] nRBCs 0 <=0 /100 WBCs 08/17/2023 7:30 AM EDT LABORATORY [facility] Blood Blood sample taken from central line / Unknown Central Line / Unknown 08/17/2023 7:07 AM EDT 08/17/2023 7:27 AM EDT Mike Chaudhary MD LAB BLOOD O RDERABLES LABORATORY [facility] [address] [place] [address] documented in this encounter Visit Diagnoses Diagnosis [...] Relationship Healthcare Agent Relationshi p Communication Trixie Mimi Mckay [facility] Care Repr esentative (appointed verbally by patient or by statute hierarchy) [email or web address] Care Teams Straight Slicing Machine Operator Relationship Specialty Start Date End Date Kayla Reeder DO [address] [facility] [place] [address] PCP - General Family Medicine 06/11/23 documented as of this encounter
--- OUTSIDE RECORDS SUMMARY | 2023-09-18 21:25 | External Medical Summary ---
Author Name Unknown Address Unknown Organization K1F:LABORATORY [facility] - [address] [place] [address] Laboratory Report Ordering Provider Test Date Status MATTI BARAJAS 08/14/2023 09:00:20 Final Observation Date Value Abnormality Reference (Units ) Status [facility] 08/14/2023 09:00:20 339 Above high normal <= 250 (U/L) Final Results may be falsely eleva ketan due to hemolysis. Performing Location LABORATORY [facility] - [address] [address]
--- OUTSIDE RECORDS SUMMARY | 2023-09-18 21:25 | External Medical Summary | Summary of Care ---
Author Name Unknown Organization [facility] Address [address] [place] [address] Phone [phone] Care Team Providers Care Director Physical Name Role Phone ReederMelissaie Tricia DO Primary Care Provider +1- [phone] Reason for Visit * Reason Onset Date Comments Precert Denied 08/12/2023 Prior auth neede d on [facility] for Hydromorphone 2 mg. Help desk # [phone], ID # [id number]. Please call [facility] @ [phone] option 0 when approved. Thanks. Encounter Details Date Type Department Care Team (Late st Contact Info) Description 08/12/2023 Telephone Palliative Medicine, [facility] [address] [facility] 5th [place] [address] Gabriella Florian CRNP [address] [place] [address] Precert Denied ( Prior auth needed on [facility] ... Allergies No known active allergiesdocumented as of this encounter (statuses as of 08/13/2023) Medications Medication Sig Dispensed Refills Start Date [...] as of this encounter (statuses as of 08/13/2023) Active Problems Problem Noted Date Diagnosed Date [...] as of this encounter (statuses as of 08/13/2023) Resolved Problems Problem Noted Date Diagnosed Date [...] as of this encounter (statuses as of 08/13/2023) Immunizations Name Administration Dates Next Due DT [...] Telephone Encounter - Tegan Burleson LPN - 08/12/2023 9:07 AM EDT PRIOR AUTHORIZATION Medication Name and Strength:HYDROmorphone HCl 2 MG Oral Tablet (Dilaudid) Qty & Days Supply: #60 tabs/10 day supply ICD 10 Code(s): Cancer related pain [G89.3] Is there medical record documentation that the prescriber or the prescriber's delegate conducted a search of the [place] Prescription Drug Monitoring Program (PDMP) for the beneficiary's controlled substance prescription history? YES Therapeutic failure, intolerance or contraindication to alternative medications? 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 At last visit on 07/22/23 - subutex was decreased from 1mg BID to 0.5mg BID, continued hydromorphone 3mg PO Q4h PRN breakthrough pain. Saw patient and his mom in the infusion center this morning. He is doing quite well. Has had very little, if any, pain at all on the lowered dose of subutex. He even forgot a dose or two here and there. Has not taken any hydromorphone at all. Palliative symptoms: Pain: 0/10 Located at: back and headache Currently taking: subutex 0.5mg BID Quality: deep ache Severity: 0/10 today * Telephone Encounter - Winter Maravilla secondary market manager - 08/12/2023 8:47 AM EDT Prior auth needed on [facility] for Hydromorphone 2 mg. Help desk # [phone], ID # [id number].Please call [facility] @ [phone] option 0 when approved. Thanks. documented in this encounter Plan of Treatment Upcoming Encounters Date Type Department Care Team (Late st Contact Info) Description 08/14/2023 9:00 AM EDT Laboratory Laboratory, [facility] [address] [facility] [place] [phone] [facility], Lab [address] [place], [place] [address] brian [id number] 08/14/2023 10:00 AM EDT Telemedicine Hematology/Oncology, [address] [address] Mike Chaudhary MD [address] [place] [address] [place], Telemed [facility] Hem Onc Clinic [address] [place] [address] 08/14/2023 10:30 AM EDT Office Visit Palliative Medicine, [address] 5th [place] [address] Gabriella Florian CRNP [address] [place] [address] 08/17/2023 7:15 AM EDT Nurse Only Hematology Oncology [place] [address] [place] [address] [place], Nurse Lab Hem/[place]c [facility] [address] 08/17/2023 8:00 AM EDT Hem/Onc Treatment Hematology Oncology [place] [address] [place] [address] [place], Chair 20 Hem/Onc [facility] [address] 08/17/2023 2:00 PM EDT Hospital Encounter Radiology, [address] [address] 08/19/2023 11:00 AM EDT Hem/Onc Treatment Hematology/Oncology Treatment, [address] [address] [facility], Chair3 Hem Onc [address] [place] [address] 08/21/2023 9:00 AM EDT Nurse Only Hematology Oncology [facility], [address] [address] [place], Nurse Lab Hem/Onc [address] [place] [address] 08/21/2023 10:00 AM EDT Hem/Onc Treatment Hematology Oncology [facility], [address] [address] [place], Chair 18 Hem/Onc [address] [place] [address] 08/21/2023 2:00 PM EDT Hospital Encounter Radiology, [address] [address] 09/07/2023 2:00 PM EDT Appointment Radiology, [address] [address] 09/11/2023 2:00 PM EDT Appointment Radiology, [address] [address] 09/25/2023 2:40 PM EDT Office Visit Rheumatology [address] [place] [address] Oliver Zhang MD [address] [place] [address], [place] [address] 02/19/2024 12:00 PM EST Office Visit Family [facility] [place] Garcia [address] [place] [address] Kayla Reeder DO [address] [place] [address] Health Maintenance Due Date Last Done Comments COVID-19 Vaccine (#1) 1993 Influenza Vaccine (FLU shot) (Season Ended) 2023 11/17/2016, 11/17/2016, 11/30/2015, Additional history exists Depression Screening 07/07/2024 07/08/2023, 06/11/19 Albumin/Creatinine Ratio Discontinued 08/02/2021 documented as of this encounter Medical Devices Implanted Type Area Academic Affairs Dean Device Identifier Shelf Expiration Date Model / Serial / Lot Mediport Pwr Mri 8fr [id number] - [id number] Implanted:Qty : 1 on 07/17/2023 by Medhat Angel MD at OR [facility] Right: Chest CR BARD : PERIPHERAL VASCULAR 07/16/2024 [id number] / / [id number] Port Implant W8f Poly Cath - [id number] Implanted:Qty : 1 on 07/17/2023 by Medhat Angel MD at OR [facility] CR BARD : PERIPHERAL VASCULAR [id number] 07/16/2024 [id number] / / [id number] documented as of this encounter Advance Directives [...] Agents on File Name Relationship Healthcare Agent [facility] p Communication Trixie Le [facility] Repr esentative (appointed verbally by patient or by statute hierarchy) [email or web address] Care Teams Director Physical Relationship Specialty Start Date End Date Kayla Reeder DO [address] [facility] [place] [address] PCP - General Family Medicine 06/11/23 documented as of this encounter
--- OUTSIDE RECORDS SUMMARY | 2023-09-18 21:25 | External Medical Summary | Summary of Care ---
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); Burkitt lymphoma of intra-abdominal lymph nodes (HCC); Chemotherapy induced nausea and vomiting; Pancytopenia due to chemotherapy (HCC); Acid indigestion Allergies No known active allergiesdocumented as of this encounter (statuses as of 08/12/2023) Medications Medication Sig Dispensed Refills Start Date [...] as of this encounter (statuses as of 08/12/2023) Active Problems Problem Noted Date Diagnosed Date [...] as of this encounter (statuses as of 08/12/2023) Resolved Problems Problem Noted Date Diagnosed Date [...] as of this encounter (statuses as of 08/12/2023) Immunizations Name Administration Dates Next Due DT [...] Hematology/Oncology Outpatient Clinic note [facility] Hematology/Oncology, [address] [address] Name: Farhad Franco Date: 08/11/2023 CHIEF COMPLAINT: Farhad Franco is a 32 year old male patient of Dr. Mike Chaudhary here today for f/u visit today. From Patient chart confirmed with patient. From Lakeshia ZARAGOZA note 08/06/2023. Hematology/Oncology diagnosis: BL (Burkitt lymphoma): (June 2023) Sporadic variant, associated with EBV infection (EBV DNA, QN PCR= 19820). Also, patient with remotehistory of immunosuppressive meds. NEGATIVE HIV. High risk (retroperitoneal abdominal mass, > 7cm, High LDH). [email or web address] Bulky disease (single mass >7 cm) Stage III (Retroperitoneal disease), with no bone marrow, or CALCIMINER involvement (LP x 2, Rare atypicallymphocytes W/small lymphocytes favor reactive lymphomonocytosis, flow:no evidence of clonal or aberrant cells) Retroperitoneal biopsy; IHC: Aggressive CD10+ B-cell lymphoma with EBV expression. Ki-67 = 80-90%. Flow cytometry: CA00-rmbcgbhg B cell population expressing kappa light chains. FISH: t(8:14). 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 H/O seizures, last was in high school, has been on Depakote and toapmax for years Cognitive, and learning disabilities Gout HTN Former smoker, quit 2 years ago Treatment rendered: CALGB 1002 Pre-phase: Cyclophosphamide 200 mg/m2 IV days 1-5 (06/26/23-06/30/23) Prednisone 60 mg/m2 PO days 1-7 IT MTX 12 mg (07/02/23, 07/22/23) Current treatment: [email or web address] Risk-adapted DA-EPOCH-R Q 21 days, with G-CSF [...] nodes (HCC) 06/26/2023 - 07/09/2023 Chemotherapy CALGB 95570 Pre-Phase ONLY (1 Cycle/14 Days) [id number] 07/01/2023 - 07/01/2023 Chemotherapy OP CHOP-R every 21 days (Lymphoma) [id number] 07/02/2023 - 07/09/2023 Chemotherapy IP DA-EPOCH every 21 days (Lymphoma) [id number] 07/02/2023 - Supportive Therapy SCP - INTRATHECAL CHEMOTHERAPY (HEMATOLOGY) [id number] Plan Provider: Yaz Molina MD Treatment goal: Supportive Line of treatment: [No plan line of treatment] 07/24/2023 - Chemotherapy OP DA-EPOCH-R every 21 days (Clinic Administration 48hr EPOCH infusion) [id number] 07/27/2023 - 07/27/2023 Chemotherapy Outpatient DA R-EPOCH Home Health Administration (48hr EPOCH infusion) [id number] ECOG: Performance Status 1 = 80-90% Symptoms but nearly ambulatory History of present illness (at time of my initial evaluation on 07/27/2023 ): Farhad Franco is a 32 year old male , presented to my office today accompanied by his mother to establish care with outpatient can marker for evaluation, treatment of his newly diagnosed Burkittcell lymphoma. Patient lives 1 hour away from [facility]. He lives with his 4-year-old son. Patient is . He is on disability. Patient was admitted to [facility], and then transferred to [facility] because of Burkitt's lymphoma with hospital courses as below HOSPITAL COURSE (focused): - [facility] 06/20/2023 - 07/07/2023 (17 days): "Farhad Franco is 32 year old male with a past medical history significant for cerebral vasculitis (primary cerebral angiitis following Rheumatology in [place]) complicated by stroke at the age of7, migraine with aura, nephrolithiasis, petite mal seizures presented to [facility] with complaint of abdominal pain. Transferred from [facility] ER to [facility] to assess for IR biopsy in the setting of rapidly enlarging retroperitoneal mass on CT imaging. As per mother, he was on number of medications for his vasculitis like CellCept, Cytoxan, methotrexate from 1997 through 2014. 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 His uric acid was elevated s/p [...] 06/25/23, lumbar puncture 07/02/23" HOSPITAL COURSE (focused) [facility]- 07/12/2023 - 07/14/2023 (2 days): 32 yo male presents to the [facility] ED c/o headache. Found to be pancytopenic [...] mom via telephone. He was in the [facility] ER overthe weekend due to dehydration and [...] mood 08/14/2009 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 Follows in [place] q6m Cerebrovascular accident (CVA) (HCC) Gastroesophageal reflux [...] performed by Laurence Dent MD at [facility] EGD, FLEXIBLE, DIAGNOSTIC 02/05/2022 normal bx / ESOPHAGOGASTRODUODENOSCOPY (EGD), FLEXIBLE, TRANSORAL, DIAGNOSTIC performed by Laurence Dent MD at [facility] INFORMATION Arteriograms. INSER TUNN ACC DEV;5 YRS/OLDER Right 07/17/2023 INSERT TUNNELED CENTRAL VENOUS ACCESS WITH SUBQ PORT performed by Medhat Angel MD at OR [facility] IR BIOPSY 06/22/2023 LA ANESTH,OPEN HEAD SURGERY Social History Socioeconomic History [...] Stability Do you currently live in a snf or have no steady place to sleep [...] other nostril. 2 Each 3 Magic Swizzle (Cqlfgkblz-Zxaqecjl-Yuvhot) oral solution Swish and spit 15 mL [...] Seen IMAGING: FLUORO GUIDED CHEMO ADMIN INTO CALCIMINER Result Date: 07/22/2023 IMPRESSION Successful fluoroscopy guided lumbar puncture and intrathecal chemotherapy administration without immediate complication. IR INTERVENTIONAL RADIOLOGY PROCEDURE IN OR Result Date: 07/17/2023 IMPRESSION: Successful placement of a chest power injectable medical port. MRI BRAIN W WO CONTRAST Result Date: 07/13/2023 IMPRESSION: No acute intracranial abnormality nor suspicious lesion. Chronic left COMMERCIAL ESCROW ASSISTANT territory infarct. CTA HEAD/CTA NECK Result Date: [...] 205 --> 170 --> 64 --> 102 Process Cheese Cooker 0.9 --> 0.8 GFR >90 K 3.3 [...] Team (Late st Contact Info) Description 08/12/2023 10:45 AM EDT Imaging Radiology, [address] [place] [id number] 08/14/2023 9:00 AM EDT Laboratory Laboratory, [address] [address] [facility], Lab [address] [place] [address] 08/14/2023 10:00 AM EDT Telemedicine Hematology/Oncology, [address] [address] Mike Chaudhary MD [address] [place] [address] Cart, Telemed [facility] Hem Onc Clinic [address] [place] [address] 08/14/2023 10:30 AM EDT Office Visit Palliative Medicine, [address] 5th Floor [place] [address] Gabriella Florian CRNP [address] [place] [address] 08/17/2023 7:15 AM EDT Nurse Only Hematology Oncology [facility] [address] [place], [place] [id number] [place], Nurse Lab Hem/Onc [address] [place] [address] 08/17/2023 8:00 AM EDT Hem/Onc Treatment Hematology Oncology [facility], [address] [address] [place], Chair 20 Hem/Onc [address] [place] [address] 08/17/2023 2:00 PM EDT Hospital Encounter Radiology, [address] [phone] 08/19/2023 11:00 AM EDT Hem/Onc Treatment Hematology/Oncology Treatment, [address] [address] [facility], Chair3 Hem Onc [address] [place] [address] 08/21/2023 9:00 AM EDT Nurse Only Hematology Oncology [facility], [address] [address] [place], Nurse Lab Hem/Onc [address] [place] [address] 08/21/2023 10:00 AM EDT Hem/Onc Treatment Hematology Oncology [facility], [address] [address] [place], Chair 18 Hem/Onc [address] [place] [address] 08/21/2023 2:00 PM EDT Hospital Encounter Radiology, [address] [address] 09/07/2023 2:00 PM EDT Appointment Radiology, [address] [address] 09/11/2023 2:00 PM EDT Appointment Radiology, [address] [place] [address] 09/25/2023 2:40 PM EDT Office Visit Rheumatology [place] [id number] [facility] [place] [address] Oliver Zhang MD [facility] [place] [address] 02/19/2024 12:00 PM EST Office Visit Family Practice [address], [place] [address] [place] [address] Kayla Reeder DO [address] [place] [address] Health Maintenance Due Date Last Done Comments COVID-19 Vaccine (#1) 1993 Influenza Vaccine (FLU shot) (Season Ended) 2023 11/17/2016, 11/17/2016, 11/30/2015, Additional history exists Depression Screening 07/07/2024 07/08/2023, 06/11/19 24 Albumin/Creatinine Ratio Discontinued 08/02/2021 documented as of this encounter Medical Devices Implanted Type Area Course Instructor Device Identifier Shelf Expiration Date Model / Serial / Lot Mediport Pwr Mri 8fr [id number] - [id number] Implanted:Qty : 1 on 07/17/2023 by Medhat Angel MD at OR [facility] Right: Chest CR BARD : PERIPHERAL VASCULAR 07/16/2024 [id number] / / [id number] Port Implant W8f Poly Cath - [id number] Implanted:Qty : 1 on 07/17/2023 by Medhat Angel MD at OR [facility] CR BARD : PERIPHERAL VASCULAR [id number] 07/16/2024 [id number] / / [id number] documented as of this encounter Visit Diagnoses [...] other specified disorders of function of stomach documented in this encounter Advance Directives * [...] File Name Relationship Healthcare Agent [facility] Communication Trixie Le [facility] Repr esentative (appointed verbally by patient or by statute hierarchy) [email or web address] Care Teams Certified Peer Specialist Relationship Specialty Start Date End Date Kayla Reeder DO [address] [facility] [place] [address] PCP - General Family Medicine 06/11/23 documented as of this encounter
--- OUTSIDE RECORDS SUMMARY | 2023-09-18 21:25 | External Medical Summary | Summary of Care ---
Author Name Unknown Organization [facility] Address [address] [place] [address] Phone [phone] Care Team Providers Care Employee Training Specialist Name Role Phone Kayla Reeder DO Primary Care Provider +1- [phone] Reason for Visit * Reason Comments Outpatient Testing Encounter Details Date Type Department Care Team ([facility] st Contact Info) Description 08/14/2023 9:00 AM EDT Laboratory Laboratory, [facility] [address] [place] [phone] [facility], Lab [address] [place] [address] Burkitt lymphoma of intra-abdominal lymph [...] Department Care Team (Latest Contact Info) Description 08/14/2023 10:00 AM EDT Telemedicine Hematology/Oncolog y, [facility] [address] [place] [address] Mike Chaudhary MD [address] [place] [address] Cart, Telemed [facility] Hem Onc Clinic [address] [place] [address] Arrived 08/14/2023 10:30 AM EDT Office Visit Palliative Medicine, [address] 5th [place] [address] Gabriella Florian CRNP [address] [place] [address] Palliative Medicine Outpatient Progress Note 08/17/2023 7:15 AM EDT Nurse Only Hematology Oncology [facility] [address] [place] [address] [place], Nurse Lab Hem/Onc [address] [place] [address] 08/17/2023 8:00 AM EDT Hem/Onc Treatment Hematology Oncology [facility] [address] [address] [place], Chair 20 Hem/Onc [address] [place] [address] 08/17/2023 2:00 PM EDT Hospital Encounter Radiology, [address] [phone] 08/19/2023 11:00 AM EDT Hem/Onc Treatment Hematology/Oncolog y Treatment, [address] [address] [facility], Chair3 Hem Onc [address] [place] [address] 08/21/2023 9:00 AM EDT Nurse Only Hematology Oncology [facility] [address] [address] [place], Nurse Lab Hem/Onc [address] [place] [address] 08/21/2023 10:00 AM EDT Hem/Onc Treatment Hematology Oncology [facility] [address] [address] [place], Chair 18 Hem/Onc [address] [place] [address] 08/21/2023 2:00 PM EDT Hospital Encounter Radiology, [address] [phone] 09/07/2023 2:00 PM EDT Appointment Radiology, [address] [address] 09/11/2023 2:00 PM EDT Appointment Radiology, [address] [place] [address] 09/25/2023 2:40 PM EDT Office Visit Rheumatology [place] [address] [facility] [place], [place] [address] Oliver Zhang MD [address] [facility] [place] [address] 02/19/2024 12:00 PM EST Office Visit [address] [place] [address] Kayla Reeder DO [address] [place] [address] Pending Results Name Type Priority Associated Diagnoses Date /Time CBC WITH WBC DIFFERENTIAL Lab STAT Burkitt lymphoma of intra-abdominal lymph nodes (HCC) 08/14/2023 9:00 AM EDT COMPREHENSIVE METABOLIC PANEL Lab STAT Burkitt lymphoma of intra-abdominal lymph nodes (HCC) 08/14/2023 9:00 AM EDT URIC ACID Lab STAT Burkitt lymphoma of intra-abdominal lymph nodes (HCC) 08/14/2023 9:00 AM EDT LD Lab STAT Burkitt lymphoma of intra-abdominal lymph nodes (HCC) 08/14/2023 9:00 AM EDT CBC Lab STAT Burkitt lymphoma of intra-abdominal lymph nodes (HCC) 08/14/2023 9:00 AM EDT DIFFERENTIAL, AUTOMATED Lab STAT Burkitt lymphoma of intra-abdominal lymph nodes (HCC) 08/14/2023 9:00 AM EDT Health Maintenance Due Date Last Done Comments COVID-19 Vaccine (#1) 1993 Influenza Vaccine (FLU shot) (Season Ended) 2023 11/17/2016, 11/17/2016, 11/30/2015, Additional history exists Depression Screening 07/07/2024 07/08/2023, 06/11/19 24 Albumin/Creatinine Ratio Discontinued 08/02/2021 documented as of this encounter Medical Devices Implanted Type Area Muck Miner Blasting Device Identifier Shelf Expiration Date Model / Serial / Lot Mediport Pwr Mri 8fr [id number] - [id number] Implanted:Qty : 1 on 07/17/2023 by Medhat Angel MD at OR [facility] Right: Chest CR BARD : PERIPHERAL VASCULAR 07/16/2024 [id number] / / [id number] Port Implant W8f Poly Cath - [id number] Implanted:Qty : 1 on 07/17/2023 by Medhat Angel MD at OR [facility] CR BARD : PERIPHERAL VASCULAR [id number] 07/16/2024 [id number] / / [id number] documented as of this encounter Visit Diagnoses [...] Healthcare Agent Relationshi p Communication Trixie Le [facility] [facility] Repr esentative (appointed verbally by patient or by statute hierarchy) [email or web address] Care Teams Employee Training Specialist Relationship Specialty Start Date End Date Kayla Reeder DO [address] [facility] [place] [address] PCP - General Family Medicine 06/11/23 documented as of this encounter
--- OUTSIDE RECORDS SUMMARY | 2023-09-18 21:25 | External Medical Summary ---
Author Name Unknown Address Unknown Organization K1F:[facility] - [address] [facility]. [place] [address] Laboratory Report Ordering Provider Test Date Status MATTI BARAJAS 08/14/2023 09:00:20 Final Observation Date Value Abnormality Reference (Units ) Status SYNC LEUKOCYTES IN BLOOD BY AUTOMATED COUNT 08/14/2023 09:00:20 7.84 4.00-10.80 (K/uL) Final Neutrophils/100 leukocytes in Blood by Manual count 08/14/2023 09:00:20 56.0 40.0-75.0 (%) Final Lymphocytes/100 leukocytes in Blood by Manual count 08/14/2023 09:00:20 13.0 Below low normal 18.0-42.0 (%) Final Monocytes/100 leukocytes in Blood by Manual count 08/14/2023 09:00:20 14.0 Above high normal 1.0-11.0 (%) Final Metamyelocytes/100 leukocytes in Blood by Manual count 08/14/2023 09:00:20 15.0 Above high normal <=0.0 (%) Final Myelocytes/100 leukocytes in Blood by Manual count 08/14/2023 09:00:20 2.0 Above high normal <=0.0 (%) Final Neutrophils [#/volume] in Blood by Manual count 08/14/2023 09:00:20 4.39 1.80-7.70 (K/uL) Final Lymphocytes [#/volume] in Blood by Manual count 08/14/2023 09:00:20 1.02 1.00-4.80 (K/uL) Final Monocytes [#/volume] in Blood by Manual count 08/14/2023 09:00:20 1.10 0.00-1.10 (K/uL) Final Metamyelocytes [#/volume] in Blood by Manual count 08/14/2023 09:00:20 1.18 Above high normal <=0.00 (K/uL) Final Myelocytes [#/volume] in Blood by Manual count 08/14/2023 09:00:20 0.16 Above high normal <=0.00 (K/uL) Final Toxic granules [Presence] in Blood by Light microscopy 08/14/2023 09:00:20 Moderate Abnormal None Seen Final Performing Location [facility] - [address] [place] [address]
--- OUTSIDE RECORDS SUMMARY | 2023-09-18 21:25 | External Medical Summary | Summary of Care ---
Author Name Unknown Organization [facility] Address [address] [place] [address] Phone [phone] Care Team Providers Care Medical Research Assistant Name Role Phone Kayla Reeder DO Primary Care Provider [phone] Encounter Details Date Type Department Care Team (Late st Contact Info) Description 07/31/2023 Telephone Hematology/Oncology, [facility] [address] [place] [address] Mike Chaudhary MD [address] [place] [address] Allergies No known active allergiesdocumented as of this encounter (statuses as of 08/13/2023) Medications Medication Sig Dispensed Refills Start Date End Date Status ASPIRIN 81 MG PO TABS one tablet daily Active Topiramate 100 MG Oral Tablet (topAMAX) TAKE ONE TABLET BY MOUTH TWICE A DAY (MORNING AND BEFORE BEDTIME) 180 Tablet 3 3 Active Divalproex Sodium ER 500 MG Oral [...] BEFORE BEDTIME) 180 Tablet 3 4 Active hydroCHLOROthiazide 12.5 MG Oral Capsule (Hydrodiuril)Indica tions:History of petit-mal seizures Take 1 Capsule by mouth in the morning. 90 Capsule 1 4 Active Loratadine 10 MG Oral Tablet (Claritin)Indicatio ns:Chronic cough Take 1 Tablet by mouth in the morning. 30 Tablet 11 4 Active Celecoxib 200 MG Oral Capsule (CeleBREX)Indicatio [...] or Cough. 18 g 1 4 Active Fluticasone-Salmete rol 250-50 MCG/ACT Inhalation Aerosol Powder Breath Activated (Advair Diskus)Indications: Chronic cough INHALE ONE PUFF BY MOUTH EVERY MORNING AND ONE PUFF BEFORE BEDTIME 60 Each 5 4 Active Sulfamethoxazole-Tr imethoprim 400-80 MG Oral Tablet (Bactrim) Take 1 Tablet by mouth in the morning. 30 Tablet 1 4 Active Sennosides-Docusate Sodium 8.6-50 MG Oral Tablet [...] 2 Each 3 4 Active Magic Swizzle (Lidocaine-Benadryl -Maalox) oral solution Swish and spit 15 mL 4 times a day as needed for Sore throat (oral pain). 900 mL 4 Active Prochlorperazine Maleate 5 MG Oral Tablet (Compazine)Indicati ons:Chemotherapy induced nausea and vomiting Take 1 Tablet by mouth every 8 hours as needed for Nausea. 30 Tablet 4 Active Buprenorphine HCl 2 MG Sublingual Tablet Sublingual (Subutex)Indication s:Cancer related pain Place 0.5 Tablets under the tongue in the morning and 0.5 Tablets in the evening. 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 60 Tablet 1 4 Active Lidocaine-Prilocain e 2.5-2.5 % External Cream (Emla)Indications:B urkitt lymphoma of intra-abdominal lymph nodes (HCC),Encounter for venous access device care Apply topically to affected area as needed prior to accessing port for chemotherapy and blood work. 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 When ANC less than 500. 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 30 Tablet 4 Active Sulfamethoxazole-Tr imethoprim 400-80 MG Oral Tablet (Bactrim)Indication s:Encounter for antineoplastic chemotherapy,Burkit t lymphoma of intra-abdominal lymph nodes (HCC) Take 1 Tablet by mouth in the morning. Take 1 tab by mouth daily throughout all chemotherapy cycles.. 30 Tablet 5 4 Active Ondansetron HCl 8 MG Oral TabletIndications:E ncounter for antineoplastic chemotherapy,Burkit t lymphoma of intra-abdominal lymph nodes (HCC) Take 1 Tablet by mouth every 8 hours as needed for Nausea. Take 2 tabs Daily for 4 days after starting chemotherapy. 8 Tablet 5 4 Active predniSONE 20 MG Oral Tablet (Deltasone)Indicati ons:Encounter for antineoplastic chemotherapy,Burkit t lymphoma of intra-abdominal lymph nodes (HCC) Take 7.25 Tablets by mouth in the morning and 7.25 Tablets before bedtime. Take twice a day with food on Days 1-5 of EPOCH treatment only. 75 Tablet 5 4 Active HYDROmorphone HCl 2 MG Oral Tablet (Dilaudid) Take 1.5 Tablets by mouth every 4 hours as needed for moderate or severe pain 100 Tablet 4 08/11/19 24 Discontinue d(Refill) Potassium Chloride Ashley ER 10 MEQ Oral Tablet Extended ReleaseIndications: Hypokalemia Take 2 Tablets by mouth in the morning and 2 Tablets before bedtime. Do all this for 14 days. 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 Chaudhary Treatment: DA-EPOCH Cycle 2 Patient was educated by nurse specialist at start of treatment: Yes Per communication from clinic pharmacist, Day 1 of current cycle was 07/27/23, which was a Thursday, meaning: Day 8 lab appt scheduled for 08/03/23 Day 11 lab appt scheduled for , 08/06/23 Day 15 lab appt scheduled for 08/10/23 Day 18 lab appt scheduled for , 08/13/23 Reviewed patient chart today to monitor Day 18 lab completed: Confirmed patient scheduled for 08/13 labs @ 9:00am Will follow up tomorrow 08/14/23(Date) to ensure that labs are completed as noted above to stay compliant with protocol lab timing requirement Radha Grimm Customer Relations Coordinator III Hematology Oncology Oral Chemotherapy Clinic Medication Therapy Disease Management [facility] 08/13/2023 2:11 PM * Telephone Encounter - Veena Stapleton OSA - 08/11/2023 12:53 PM EDT DA-EPOCH LAB MONITORING DOCUMENTATION Farhad Franco [id number] Patient Phone Numbers Communication: Chart review 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 Chaudhary Treatment: DA-EPOCH Cycle 2 Patient was educated by nurse specialist at start of treatment: Yes Per communication from clinic pharmacist, Day 1 of current cycle was 07/27/23, which was a Thursday, meaning: Day 8 lab appt scheduled for 08/03/23 Day 11 lab appt scheduled for , 08/06/23 Day 15 lab appt scheduled for 08/10/23 Day 18 lab appt scheduled for Thursday, 08/13 Reviewed patient chart today to monitor for Day 15 lab completed: Patient labs completed and in chart, will follow up with lab compliance on Day 18 Will follow up on 08/12(Date) for next labs due on Day 18 TATIANNA Wiliknson [employer] [facility] Hematology Oncology Oral Chemotherapy Clinic Medication Therapy Disease Management [facility] 08/11/23 1:02 PM * Telephone Encounter - Radha Grimm CPhT - 08/10/2023 2:39 PM EDT DA-EPOCH LAB MONITORING DOCUMENTATION Farhad Franco [id number] Patient Phone Numbers Communication: Left message requesting pt to obtain lab work and sent MyG 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 Chaudhary Treatment: DA-EPOCH Cycle 2 Patient was educated by nurse specialist at start of treatment: Yes Per communication from clinic pharmacist, Day 1 of current cycle was 07/27/23, which was a Thursday, meaning: Day 8 lab appt scheduled for 08/03/23 Day 11 lab appt scheduled for , 08/06/23 Day 15 lab appt scheduled for 08/10/23 Day 18 lab appt scheduled for , 08/13/23 Reviewed patient chart today to monitor for Day 15 lab completed: Patient due for labs today, not yet completed. Reached out to patient to notify due for labs today. Unable to reach patient via telephone, sent [employer] message with reminder that patient must get labs today or tomorrow to stay compliant with protocol. 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 Chaudhary Treatment: DA-EPOCH Cycle 2 Patient was educated by nurse specialist at start of treatment: Yes Patient was introduced to Chemotherapy Clinic: We are Pharmacists & Pharmacy Technicians, who are a part of hematology & oncology care across the [facility] offering telephone based appointments from the comfort of your own home. Pharmacists are available Thursday-Thursday from 8am - 4:30pm via call to the infusion center clinic. After 4:30pm, calls/questions/concerns should be directedto their oncologist office directly (number provided). In case of an emergency, [facility] or travel to nearest emergency department. Communicated to patient: Nurse specialists provided education about your medication, including a handout reviewing the importance of lab compliance. Pharmacy technicians will monitor compliance with labs and and pharmacists will review labs to adjust doses of next cycle's chemotherapy. All information will be shared & available to your oncologist. Reminded patient that twice weekly labs 3-4 days apart during non-chemotherapy weeks of each cycle,starting 3-4 days after last chemotherapy dose is needed in order to stay compliant with protocol and able to give them the proper dose of chemotherapy for the next cycle. Per communication from clinic pharmacist, Day 1 of current cycle was 07/27/23, which was a Thursday, meaning: Day 8 lab appt scheduled for 08/03/23 Day 11 lab appt scheduled for , 08/06/23 Day 15 lab appt scheduled for 08/10/23 Day 18 lab appt scheduled for , 08/13/23 Reviewed patient chart today to monitor for Day 11 lab completed: Patient labs completed and in chart, will follow up with lab compliance on Day 15 Will follow up on 08/10/23(Date) for next labs due on Day 15 Radha Grimm Customer Relations Coordinator III Hematology Oncology Oral Chemotherapy Clinic Medication Therapy Disease Management [facility] 08/06/2023 1:28 PM Time Spent on Encounter: < 5 minutes * Telephone Encounter - Radha Grimm CPhT - 08/03/2023 3:21 PM EDT DA-EPOCH LAB MONITORING DOCUMENTATION Farhad Franco [id number] Patient Phone Numbers Communication: Chart review 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 Chaudhary Treatment: DA-EPOCH Cycle 2 Patient was educated by nurse specialist at start of treatment: Yes Patient was introduced to Chemotherapy Clinic: We are Pharmacists & Pharmacy Technicians, who are a part of hematology & oncology care across the [facility] offering telephone based appointments from the comfort of your own home. Pharmacists are available Thursday-Thursday from 8am - 4:30pm via call to the infusion center clinic. After 4:30pm, calls/questions/concerns should be directedto their oncologist office directly (number provided). In case of an emergency, patient is aware [place] [address] or travel to nearest emergency department. Communicated to patient: Nurse specialists provided education about your medication, including a handout reviewing the importance of lab compliance. Pharmacy technicians will monitor compliance with labs and and pharmacists will review labs to adjust doses of next cycle's chemotherapy. All information will be shared & available to your oncologist. Reminded patient that twice weekly labs 3-4 days apart during non-chemotherapy weeks of each cycle,starting 3-4 days after last chemotherapy dose is needed in order to stay compliant with protocol and able to give them the proper dose of chemotherapy for the next cycle. Per communication from clinic pharmacist, Day 1 of current cycle was 07/27/23, which was a Thursday, meaning: Day 8 lab appt scheduled for 08/03/23 Day 11 lab appt scheduled for , 08/06/23 Day 15 lab appt scheduled for 08/10/23 Day 18 lab appt scheduled for , 08/13/23 Reviewed patient chart today to monitor for Day 8 lab completed: Patient labs completed and in chart, will follow up with lab compliance on Day 11 Will follow up on 08/06/23(Date) for next labs due on Day 11 Radha Grimm Customer Relations Coordinator III Hematology Oncology Oral Chemotherapy Clinic Medication Therapy Disease Management [facility] 08/03/2023 3:27 PM Time Spent on Encounter: < 5 minutes * Telephone Encounter - Radha Grimm CPhT - 07/31/2023 12:06 PM EDT DA-EPOCH LAB MONITORING DOCUMENTATION Farhad Franco [id number] Patient Phone Numbers Communication: Left message requesting pt to obtain lab work on 08/02 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 Chaudhary Treatment: DA-EPOCH Cycle 2 Patient was educated by nurse specialist at start of treatment: Yes Per communication from clinic pharmacist, Day 1 of current cycle was 07/27/23, which was a Thursday, meaning: Day 8 lab appt scheduled for 08/03/23 Day 11 lab appt scheduled for , 08/06/23 Day 15 lab appt scheduled for 08/10/23 Day 18 lab appt scheduled for , 08/13/23 Will follow up on 08/03/23(Date) for next labs due on Day 8 Patient currently scheduled 08/03/23 @ 8:00am ([facility] lab) Radha Grimm Customer Relations Coordinator III Hematology Oncology Oral Chemotherapy Clinic Medication Therapy Disease Management [facility] 07/31/2023 12:54 PM documented in this encounter Plan of Treatment Upcoming Encounters Date Type Department Care Team (Late st Contact Info) Description 08/14/2023 9:00 AM EDT Laboratory Laboratory, [address] [id number] [facility], Lab [address] [place] [address] 08/14/2023 10:00 AM EDT Telemedicine Hematology/Oncology, [address] [address] Mike Chaudhary MD [address] [place] [address] Cart, Telemed [facility] Hem Onc Clinic [address] [place] [address] 08/14/2023 10:30 AM EDT Office Visit Palliative Medicine, [address] [place] [address] Gabriella Florian CRNP [address] [place] [address] 08/17/2023 7:15 AM EDT Nurse Only Hematology Oncology [facility] [address] [place] [address] [place], Nurse Lab Hem/Onc [facility] [place] [address] 08/17/2023 8:00 AM EDT Hem/Onc Treatment Hematology Oncology [facility], [address] [address] I[place]ha, Chair 20 Hem/Onc [address] [place] [address] 08/17/2023 2:00 PM EDT Hospital Encounter Radiology, [address] [address] 08/19/2023 11:00 AM EDT Hem/Onc Treatment Hematology/Oncology Treatment, [address] [address] [facility], Chair3 Hem Onc [address] [place] [address] 08/21/2023 9:00 AM EDT Nurse Only Hematology Oncology [facility], [address] [address] Iesha, Nurse Lab Hem/Onc [address] [place] [address] 08/21/2023 10:00 AM EDT Hem/Onc Treatment Hematology Oncology [facility], [address] [address] Iesha, Chair 18 Hem/Onc [address] [place] [address] 08/21/2023 2:00 PM EDT Hospital Encounter Radiology, [address] [address] 09/07/2023 2:00 PM EDT Appointment Radiology, [address] [address] 09/11/2023 2:00 PM EDT Appointment Radiology, [address] [address] 09/25/2023 2:40 PM EDT Office Visit Rheumatology [facility] [address] [place], [place] [address] Oliver Zhang MD [address] [place] [address] 02/19/2024 12:00 PM EST Office Visit Family [facility] [address], [place] [address] [place] [address] Kayla Reeder DO [address] [place] [address] Health Maintenance Due Date Last Done Comments COVID-19 Vaccine (#1) 1993 Influenza Vaccine (FLU shot) (Season Ended) 2023 11/17/2016, 11/17/2016, 11/30/2015, Additional history exists Depression Screening 07/07/2024 07/08/2023, 06/11/19 24 Albumin/Creatinine Ratio Discontinued 08/02/2021 documented as of this encounter Medical Devices Implanted Type Area Ballaster Device Identifier Shelf Expiration Date Model / Serial / Lot Mediport Pwr Mri 8fr [id number] - [id number] Implanted:Qty : 1 on 07/17/2023 by Medhat Angel MD at OR [facility] Right: Chest CR BARD : PERIPHERAL VASCULAR 07/16/2024 [id number] / / [id number] Port Implant W8f Poly Cath - [id number] Implanted:Qty : 1 on 07/17/2023 by Medhat Angel MD at OR [facility] CR BARD : PERIPHERAL VASCULAR [id number] 07/16/2024 [id number] / / [id number] documented as of this encounter Advance Directives [...] Relationship Healthcare Agent Relationshi p Communication Trixie [facility] Care Repr esentative (appointed verbally by patient or by statute hierarchy) [email or web address] Care Teams Medical Research Assistant Relationship Specialty Start Date End Date Kayla Reeder DO [address] [facility] [place] [address] PCP - General Family Medicine 06/11/23 documented as of this encounter
--- OUTSIDE RECORDS SUMMARY | 2023-09-18 21:25 | External Medical Summary ---
Author Name Unknown Address Unknown Organization K[facility] [address] [facility] [address] Laboratory Report Ordering Provider Test Date Status MATTI BARAJAS 08/14/2023 09:00:20 Final Observation Date Value Abnormality Reference (Units ) Status BUN 08/14/2023 09:00:20 15 6-20 (mg/dL) Final Creatinine 08/14/2023 09:00:20 1.0 0.6-1.2 (mg/dL) Final Glomerular filtration rate/1.73 sq M.predicted [Volume Rate/Area] in Serum, Plasma or Blood by Creatinine-based formula (CKD-EPI) 08/14/2023 09:00:20 >90 >=60 (mL/min) Final eGFR is calculated based on the CKD-EPI 2020 equation Sodium 08/14/2023 09:00:20 142 135-146 (m mol/L) Final Potassium 08/14/2023 09:00:20 4.2 3.5-5.1 (m mol/L) Final Cl 08/14/2023 09:00:20 108 Above high normal 98 -107 (mmol/L) Final CO2 08/14/2023 09:00:20 23 22-32 (mmo l/L) Final Anion gap 08/14/2023 09:00:20 11 7-15 (mmol /L) Final Glucose 08/14/2023 09:00:20 112 70-120 (mg /dL) Final Albumin 08/14/2023 09:00:20 4.0 3.8-5.0 (g /dL) Final AST (Aspartate aminotransferase) 08/14/2023 09:00:20 28 10-50 (U/L) Fin al Results may be falsely eleva ketan due to hemolysis. Alk Phos 08/14/2023 09:00:20 88 35-130 (U/ L) Final Bilirubin, Total 08/14/2023 09:00:20 0.2 <=1 .2 (mg/dL) Final Calcium 08/14/2023 09:00:20 9.5 8.4-10.2 ( mg/dL) Final Protein 08/14/2023 09:00:20 6.5 6.0-8.3 (g /dL) Final ALT (Alanine aminotransferase) 08/14/2023 09:00:20 39 10-50 (U/L) Final Performing Location [facility] - [facility] [place] [address]
--- OUTSIDE RECORDS SUMMARY | 2023-09-18 21:25 | External Medical Summary | Summary of Care ---
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); 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); Chemotherapy induced nausea and vomiting; Pancytopenia due to chemotherapy (HCC); Acid indigestion Allergies No known active allergiesdocumented as of this encounter (statuses as of 08/11/2023) Medications Medication Sig Dispensed Refills Start Date [...] as of this encounter (statuses as of 08/11/2023) Active Problems Problem Noted Date Diagnosed Date [...] as of this encounter (statuses as of 08/11/2023) Resolved Problems Problem Noted Date Diagnosed Date [...] as of this encounter (statuses as of 08/11/2023) Immunizations Name Administration Dates Next Due DT [...] Outpatient Clinic note [facility] Hematology/Oncology, [address] [address] Name: Farhad Franco Date: 08/11/2023 CHIEF COMPLAINT: Farhad Franco is a 32 year old male patient of Dr. Mike Chaudhary here today for f/u visit today. From Patient chart confirmed with patient. From Lakeshia ZARAGOZA note 08/06/2023. 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 Also, patient with remotehistory of immunosuppressive meds. NEGATIVE HIV. High risk (retroperitoneal abdominal mass, > 7cm, High LDH). [email or web address] Bulky disease (single mass >7 cm) Stage III (Retroperitoneal disease), with no bone marrow, or PLATEN PRESS OPERATOR involvement (LP x 2, Rare atypicallymphocytes W/small lymphocytes favor reactive lymphomonocytosis, flow:no evidence of clonal or aberrant cells) Retroperitoneal biopsy; IHC: Aggressive CD10+ B-cell lymphoma with EBV expression. Ki-67 = 80-90%. Flow cytometry: MD50-oczzuake B cell population expressing kappa light chains. FISH: t(8:14). 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 H/O seizures, last was in high school, has been on Depakote and toapmax for years Cognitive, and learning disabilities Gout HTN Former smoker, quit 2 years ago Treatment rendered: CALGB 1002 Pre-phase: Cyclophosphamide 200 mg/m2 IV days 1-5 (06/26/23-06/30/23) Prednisone 60 mg/m2 PO days 1-7 IT MTX 12 mg (07/02/23, 07/22/23) Current treatment: [email or web address] Risk-adapted DA-EPOCH-R Q 21 days, with G-CSF [...] nodes (HCC) 06/26/2023 - 07/09/2023 Chemotherapy CALGB 57297 Pre-Phase ONLY (1 Cycle/14 Days) [id number] 07/01/2023 - 07/01/2023 Chemotherapy OP CHOP-R every 21 days (Lymphoma) [id number] 07/02/2023 - 07/09/2023 Chemotherapy IP DA-EPOCH every 21 days (Lymphoma) [id number] 07/02/2023 - Supportive Therapy SCP - INTRATHECAL CHEMOTHERAPY (HEMATOLOGY) [id number] Plan Provider: Yaz Molina MD Treatment goal: Supportive Line of treatment: [No plan line of treatment] 07/24/2023 - Chemotherapy OP DA-EPOCH-R every 21 days (Clinic Administration 48hr EPOCH infusion) [id number] 07/27/2023 - 07/27/2023 Chemotherapy Outpatient DA R-EPOCH [facility] (48hr EPOCH infusion) [id number] ECOG: Performance Status 1 = 80-90% Symptoms but nearly ambulatory History of present illness (at time of my initial evaluation on 07/27/2023 ): Farhad Franco is a 32 year old male , presented to my office today accompanied by his mother to establish care with outpatient office receptionist for evaluation, treatment of his newly diagnosed Burkittcell lymphoma. Patient lives 1 hour away from [facility]. He lives with his 4-year-old son. Patient is . He is on disability. Patient was admitted to [facility], and then transferred to [facility] because of Burkitt's lymphoma with hospital courses as below HOSPITAL COURSE (focused): - [facility] [place] [place] 06/20/2023 - 07/07/2023 (17 days): "Farhad Franco is 32 year old male with a past medical history significant for cerebral vasculitis (primary cerebral angiitis following Rheumatology in [place]) complicated by stroke at the age of7, migraine with aura, nephrolithiasis, petite mal seizures presented to [facility] with complaint of abdominal pain. Transferred from [facility] ER to [facility] to assess for IR biopsy in the setting of rapidly enlarging retroperitoneal mass on CT imaging. As per mother, he was on number of medications for his vasculitis like CellCept, Cytoxan, methotrexate from 1997 through 2014. Biopsy of retroperitoneal mass consistent with CD10 positive high-grade lymphoma with continued abdominal pain requiring morphine CELL ROOM SUPERVISOR pump. His uric acid was elevated [...] 06/25/23, lumbar puncture 07/02/23" HOSPITAL COURSE (focused) [facility]- 07/12/2023 - 07/14/2023 (2 days): 32 yo male presents to the [facility] ED c/o headache. Found to be [...] mom via telephone. He was in the [facility] ER overthe weekend due to dehydration and [...] mood 08/14/2009 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 Follows in [place] q6m Cerebrovascular accident (CVA) (HCC) Gastroesophageal reflux [...] by Laurence Dent MD at ENDOSCOPY [facility] EGD, FLEXIBLE, DIAGNOSTIC 02/05/2022 normal bx / ESOPHAGOGASTRODUODENOSCOPY (EGD), FLEXIBLE, TRANSORAL, DIAGNOSTIC performed by Laurence Dent MD at ENDOSCOPY [facility] INFORMATION Arteriograms. INSER TUNN ACC DEV;5 YRS/OLDER Right 07/17/2023 INSERT TUNNELED CENTRAL VENOUS ACCESS WITH SUBQ PORT performed by Medhat Angel MD at OR [facility] IR BIOPSY 06/22/2023 [place] ANESTH,OPEN HEAD SURGERY Social History Socioeconomic History [...] Stability Do you currently live in a longterm or have no steady place to sleep [...] other nostril. 2 Each 3 Magic Swizzle (Ydmfqeaat-Szepvukf-Cvjoce) oral solution Swish and spit 15 mL [...] Seen IMAGING: FLUORO GUIDED CHEMO ADMIN INTO PLATEN PRESS OPERATOR Result Date: 07/22/2023 IMPRESSION Successful fluoroscopy guided lumbar puncture and intrathecal chemotherapy administration without immediate complication. IR INTERVENTIONAL RADIOLOGY PROCEDURE IN OR Result Date: 07/17/2023 IMPRESSION: Successful placement of a chest power injectable medical port. MRI BRAIN W WO CONTRAST Result Date: 07/13/2023 IMPRESSION: No acute intracranial abnormality nor suspicious lesion. Chronic left CELL ROOM SUPERVISOR territory infarct. CTA HEAD/CTA NECK Result [...] 205 --> 170 --> 64 --> 102 Feltmaker And Weigher 0.9 --> 0.8 GFR >90 K 3.3 [...] Description 08/12/2023 10:45 AM EDT Imaging Radiology, [address] [place] [id number] 08/14/2023 9:00 AM EDT Laboratory Laboratory, [address] [address] [facility], Lab [address] [place] [address] 08/14/2023 10:00 AM EDT Telemedicine Hematology/Oncology, [address] [address] Mike Chaudhary MD [address] [place] [address] Cart, Telemed [facility] Hem Onc Clinic [address] [place] [address] 08/14/2023 10:30 AM EDT Office Visit Palliative Medicine, [address] 5th Floor [place] [address] Gabriella Florian CRNP [address] [place] [address] 08/17/2023 7:15 AM EDT Nurse Only Hematology Oncology [facility] [address] [place], [place] [id number] [place], Nurse Lab Hem/Onc [address] [place] [address] 08/17/2023 8:00 AM EDT Hem/Onc Treatment Hematology Oncology [facility], [address] [address] [place], Chair 20 Hem/Onc [address] [place] [address] 08/17/2023 2:00 PM EDT Hospital Encounter Radiology, [address] [id number] 08/19/2023 11:00 AM EDT Hem/Onc Treatment Hematology/Oncology Treatment, [address] [address] [facility], Chair3 Hem Onc [address] [place] [address] 08/21/2023 9:00 AM EDT Nurse Only Hematology Oncology [facility], [address] [address] [place], Nurse Lab Hem/Onc [address] [place] [address] 08/21/2023 10:00 AM EDT Hem/Onc Treatment Hematology Oncology [facility], [address] [address] [place], Chair 18 Hem/Onc [address] [place] [address] 08/21/2023 2:00 PM EDT Hospital Encounter Radiology, [address] [address] 09/07/2023 2:00 PM EDT Appointment Radiology, [address] [address] 09/11/2023 2:00 PM EDT Appointment Radiology, [address] [place] [address] 09/25/2023 2:40 PM EDT Office Visit Rheumatology [place] [phone] [facility] [place] [address] Oliver Zhang MD [facility] [place] [address] 02/19/2024 12:00 PM EST Office Visit Family Practice [address], [place] [address] [place] [address] Kayla Reeder DO [address] [place] [address] Health Maintenance Due Date Last Done Comments COVID-19 Vaccine (#1) 1993 Influenza Vaccine (FLU shot) (Season Ended) 2023 11/17/2016, 11/17/2016, 11/30/2015, Additional history exists Depression Screening 07/07/2024 07/08/2023, 06/11/19 24 Albumin/Creatinine Ratio Discontinued 08/02/2021 documented as of this encounter Medical Devices Implanted Type Area Pawn Shop Keeper Device Identifier Shelf Expiration Date Model / Serial / Lot Mediport Pwr Mri 8fr [id number] - [id number] Implanted:Qty : 1 on 07/17/2023 by Medhat Angel MD at OR [facility] Right: Chest CR BARD : PERIPHERAL VASCULAR 07/16/2024 [id number] / / [id number] Port Implant W8f Poly Cath - [id number] Implanted:Qty : 1 on 07/17/2023 by Medhat Angel MD at OR [facility] CR BARD : PERIPHERAL VASCULAR [id number] 07/16/2024 [id number] / / [id number] documented as of this encounter Visit Diagnoses [...] Agents on File Name Relationship Healthcare Agent [facility] Communication Trixie Le [facility] Repr esentative (appointed verbally by patient or by statute hierarchy) [email or web address] Care Teams Adjunct Physics Instructor Relationship Specialty Start Date End Date Kayla Reeder DO [address] [facility] [place] [address] PCP - General Family Medicine 06/11/23 documented as of this encounter
--- OUTSIDE RECORDS SUMMARY | 2023-09-18 21:25 | External Medical Summary | Summary of Care ---
Author Name Unknown Organization [facility] Address [address] [place] [address] Phone [phone] Care Team Providers Care Wall Man Name Role Phone Kayla Reeder DO Primary Care Provider +1- [phone] Reason for Visit * Reason Comments Follow Up Encounter Details Date Type Department Care Team ([facility] st Contact Info) Description 08/14/2023 10:30 AM EDT Office Visit Palliative Medicine, [facility] [address] 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 You can contact our office at [phone], which is our clinic in [place], or you can message us on [employer]. If you have an emergency outside of these hours, we recommend calling your primary care clinic, Oncology office, or going to the ER if you have a medical emergency. documented in this encounter Progress Notes * Tegan Bulreson LPN - 08/14/2023 9:09 AM EDT Return Palliative Visit Pain: 0/10 Taking subutex BID Mostly only taking dilaudid one at night Denies any N/V Eating OK, but losing weight Sleeping OK, but occasionally having "weird" dreams * Gabriella Florian CRNP - 08/14/2023 9:07 AM EDT Palliative Medicine Outpatient Progress Note [facility], 5th Floor [address] [facility] [address] Name: Farhad Franco Date: 08/14/2023 HPI: Farhad Franco is a 32 year old male with Burkitt lymphoma in intra- abdominal lymph nodes, seen in follow-up for goals of care and symptom management. At last visit, patient was doing quite well on Subutex 1 mg BID, taking hydromorphone sparingly. Today, patient continues to do well. He at one point did try to cut subutex to 0.5mg BID but pain was worse, so he increased it back to 1mg BID (as he was told to do by Dr. Silva). He now has good pain relief and takes hydromorphone 3mg just once a day in the evening or at bedtime when his painis the worst. He has no drowsiness or side effects. We discussed that insurance will not cover the hydromorphone, they'd like us to try a preferred medication. We discussed Percocet or MS IR, we decided to try MS IR as he had it before and tolerated. Palliative symptoms: Pain: Located at: mid-thoracic back Currently taking: subutex 1mg BID, takes hydromorphone 3mg just once in the evening when the pain is the worst. Severity: 3.5-4/10 at its worst. Current sitting in office it is a 1/10. Timing: worse in the evening Context: Burkitt's lymphoma, at the site of injections Nausea/Vomiting: no, takes Zofran occasionally Appetite: ok Constipation: no - takes Miralax in coffee Confusion: no Sleep issues: no Dyspnea: no Mood issues: no Falls: no Other: no Examination: VS: BP 103/67 | Pulse 87 | Temp 35.9 C (96.7 F) (Tympanic) | Resp 16 | Wt 111.1 kg (244 lb 14.4oz) | SpO2 98% | BMI 34.16 kg/m | BSA 2.36 m Constitutional: no acute distress HENT: normocephalic, atraumatic. Eyes: anicteric, sclera and conjunctiva normal. Neck: no stridor Chest: normal respiratory effort Abdominal: nondistended Extremities: no edema Data Review: External notes reviewed: - Reviewed notes from hem/onc 08/11/23 - Continue treatment for Burkitt's lymphoma, monitor for chemo-induced pancytopenia Lab / Imaging Results: 08/11/23 - WBC 12.5, hgb 9.0 hct 28.6 - both stable. PET/CT 08/12/23 report: "IMPRESSION: Deauville score 1. Significant decrease in size and resolution of retroperitoneal lymph node conglomerate." Advanced Care Planning (see ACP Tab): AD in EMR: no POLST in EMR: no ASSESSMENT/PLAN: Farhad Franco is a 32 year old male seen in follow-up for goals of care and pain and symptom management. Cancer related pain - located in thoracic spine mostly Stop hydromorphone as insurance will not cover. Start MS IR 15mg PO Q6h PRN - has only been using breakthrough pain med once daily. Continue subutex 1mg BID Burkitt lymphoma in intra-abdominal lymph nodes Continue treatment with Dr. Chaudhary and hem/onc team PET CT on 08/11 shows improvement Risk for OIC Continue miralax. Goals of care Continue cancer treatment, hoping for remission. Code status if admitted: full Follow up on 08/18 when here for treatment. I spent a total of 45 minutes on the date of service in preparation, delivery, and documentation ofthe care provided to Farhad Franco excluding any time spent in the performance of separately billed services. NIK Flor [facility] Palliative Medicine [phone] documented in this encounter Plan of Treatment Upcoming Encounters Date Type Department Care Team (Late st Contact Info) Description 08/17/2023 7:15 AM EDT Nurse Only Hematology Oncology [facility], [address] [address] [place], Nurse Lab Hem/Onc [address] [place] [address] 08/17/2023 8:00 AM EDT Hem/Onc Treatment Hematology Oncology [facility], [address] [address] [place], Chair 20 Hem/Onc [address] [place] [address] 08/17/2023 2:00 PM EDT Hospital Encounter Radiology, [address] [address] 08/19/2023 11:00 AM EDT Hem/Onc Treatment Hematology/Oncology Treatment, [address] [address] [facility], Chair3 Hem Onc [address] [place], [place] [address] [address] 08/19/2023 11:00 AM EDT Office Visit Palliative Medicine, [address] 5th Floor [place] [address] Tessa Rubio PA-C [address] [place] [address] 08/21/2023 9:00 AM EDT Nurse Only Hematology Oncology [facility], [address] [address] [place], Nurse Lab Hem/Onc [address] [place] [address] 08/21/2023 10:00 AM EDT Hem/Onc Treatment Hematology Oncology [facility], [address] [address] [place], Chair 18 Hem/Onc [address] [place] [address] 08/21/2023 2:00 PM EDT Hospital Encounter Radiology, [address] [address] 09/07/2023 2:00 PM EDT Appointment Radiology, [address] [address] 09/11/2023 2:00 PM EDT Appointment Radiology, [address] [address] 09/25/2023 2:40 PM EDT Office Visit Rheumatology [address] [place] [address] Oliver Zhang MD [address] [place] [address] [place] [address] 02/19/2024 12:00 PM EST Office Visit [facility] [address] [place] [address] Kayla Reeder DO [address] [place] [address] Health Maintenance Due Date Last Done Comments COVID-19 Vaccine (#1) 1993 Influenza Vaccine (FLU shot) (Season Ended) 2023 11/17/2016, 11/17/2016, 11/30/2015, Additional history exists Depression Screening 07/07/2024 07/08/2023, 06/11/19 24 Albumin/Creatinine Ratio Discontinued 08/02/2021 documented as of this encounter Medical Devices Implanted Type Area Wholesale Loan Processor Device Identifier Shelf Expiration Date Model / Serial / Lot Mediport Pwr Mri 8fr [id number] - [id number] Implanted:Qty : 1 on 07/17/2023 by Medhat Angel MD at OR [facility] Right: Chest CR BARD : PERIPHERAL VASCULAR 07/16/2024 [id number] / / [id number] Port Implant W8f Poly Cath - [id number] Implanted:Qty : 1 on 07/17/2023 by Medhat Angel MD at OR [facility] CR BARD : PERIPHERAL VASCULAR [id number] 07/16/2024 [id number] / / [id number] documented as of this encounter Visit Diagnoses [...] Agent Relationshi p Communication Trixie Le Mckay [facility] Care Repr esentative (appointed verbally by patient or by statute hierarchy) [email or web address] Care Teams Wall Man Relationship Specialty Start Date End Date Kayla Reeder DO [address] [facility] [place] [address] PCP - General Family Medicine 06/11/23 documented as of this encounter
--- OUTSIDE RECORDS SUMMARY | 2023-09-18 21:25 | External Medical Summary | Summary of Care ---
Author Name Unknown Organization [facility] Address [address] [place] [address] Phone [phone] Care Team Providers Care Data Clerk Name Role Phone ReederMelissarosio Clarke DO Primary Care Provider [phone]- [phone] Reason for Visit * Reason Comments Follow Up Encounter Details Date Type Department Care Team ([facility] st Contact Info) Description 08/14/2023 10:00 AM EDT Telemedicine Hematology/Oncology , [facility] [address] [place] [address] Mike Chaudhary MD [address] [place] [address] Herve Hurtadoed [facility] Hem Onc Clinic [address] [place] [address] Burkitt lymphoma of intra-abdominal lymph [...] two unique identifiers. 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 The patient agreed to participate. 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 Also, patient with remotehistory of immunosuppressive meds. NEGATIVE HIV. High risk (retroperitoneal abdominal mass, > 7cm, High LDH). 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 Ki-67 = 80-90%. Flow cytometry: DF73-eayzlfii B cell population expressing kappa light chains. FISH: t(8:14). 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 H/O seizures, last was in high school, has been on Depakote and toapmax for years Cognitive, and learning disabilities Gout HTN Former smoker, quit 2 years ago Treatment rendered: [facility] 1002 Pre-phase: Cyclophosphamide 200 mg/m2 IV days 1-5 (06/26/23-06/30/23) Prednisone 60 mg/m2 PO days 1-7 IT MTX 12 mg (07/02/23, 07/22/23) Current treatment: [email or web address]://[email or web address]/doi/10.1200/[email or web address] Risk-adapted DA-EPOCH-R Q 21 days, with G-CSF [...] lymph nodes (HCC) 06/26/2023 - 07/09/2023 Chemotherapy [facility] [id number] Pre-Phase ONLY (1 Cycle/14 Days) [id number] 07/01/2023 - 07/01/2023 Chemotherapy OP CHOP-R every 21 days (Lymphoma) [id number] 07/02/2023 - 07/09/2023 Chemotherapy IP DA-EPOCH every 21 days (Lymphoma) [id number] 07/02/2023 - Supportive Therapy SCP - INTRATHECAL CHEMOTHERAPY (HEMATOLOGY) [id number] Plan Provider: Yaz Molina MD Treatment goal: Supportive Line of treatment: [No plan line of treatment] 07/24/2023 - Chemotherapy OP DA-EPOCH-R every 21 days (Clinic Administration 48hr EPOCH infusion) [id number] 07/27/2023 - 07/27/2023 Chemotherapy Outpatient DA R-EPOCH Home Health Administration (48hr EPOCH infusion) [id number] 08/11/2023 - Supportive Therapy SCP - PORT [...] his mother to establish care with outpatient salvage diver for evaluation, treatment of his newly diagnosed Burkittcell lymphoma. Patient [address] [facility]. He lives with his 4-year-old son. Patient is . He is on disability. Patient was admitted to [facility], and then transferred to [facility] because of Burkitt's lymphoma with hospital courses as below HOSPITAL COURSE (focused): - [facility] [place]/20/2023 - 07/07/2023 (17 days): "Farhad Franco is 32 year old male with a past medical history significant for cerebral vasculitis (primary cerebral angiitis following Rheumatology in [place]) complicated by stroke at the age of7, migraine with aura, nephrolithiasis, petite mal seizures presented to [facility] with complaint of abdominal pain. Transferred from [facility] ER to [facility] to assess for IR biopsy in the setting of rapidly enlarging retroperitoneal mass on CT imaging. As per mother, he was on number of medications for his vasculitis like CellCept, Cytoxan, methotrexate from 1997 through 2014. Biopsy of retroperitoneal mass consistent with CD10 positive high-grade lymphoma with continued abdominal pain requiring morphine INSTRUMENT/CONTROL TECHNICIAN pump. His uric acid was elevated [...] 06/25/23, lumbar puncture 07/02/23" HOSPITAL COURSE (focused) [facility]- 07/12/2023 - 07/14/2023 (2 days): 32 yo male presents to the [facility] ED c/o headache. Found to be [...] performed by Laurence Dent MD at ENDOSCOPY [facility] EGD, FLEXIBLE, DIAGNOSTIC 02/05/2022 normal bx / ESOPHAGOGASTRODUODENOSCOPY (EGD), FLEXIBLE, TRANSORAL, DIAGNOSTIC performed by Laurnece Dent MD at ENDOSCOPY [facility] INFORMATION Arteriograms. INSER TUNN ACC DEV;5 YRS/OLDER Right 07/17/2023 INSERT TUNNELED CENTRAL VENOUS ACCESS WITH SUBQ PORT performed by Medhat Angel MD at OR [facility] IR BIOPSY 06/22/2023 [place] ANESTH,OPEN HEAD SURGERY Social History Tobacco Use [...] other nostril. 2 Each 3 Magic Swizzle (Zhwziugab-Uceufwcd-Fymfju) oral solution Swish and spit 15 mL [...] oz Notes Notes Telephone Encounter Signed Rebeca Piepr OSA Telephone Encounter Signed Radha Grimm CPhT [...] WBCs Imaging: FLUORO GUIDED CHEMO ADMIN INTO LIEUTENANT FIREFIGHTER Result Date: 07/22/2023 IMPRESSION Successful fluoroscopy guided lumbar puncture and intrathecal chemotherapy administration without immediate complication. IR INTERVENTIONAL RADIOLOGY PROCEDURE IN OR Result Date: 07/17/2023 IMPRESSION: Successful placement of a chest power injectable medical port. MRI BRAIN W WO CONTRAST Result Date: 07/13/2023 IMPRESSION: No acute intracranial abnormality nor suspicious lesion. Chronic left INSTRUMENT/CONTROL TECHNICIAN territory infarct. CTA HEAD/CTA NECK Result [...] Retroperitoneum, CT guided fine needle aspiration: - HM56-uirkvlwu B-cell lymphoma expressing EBV and t(8:14), consistent [...] and specimens are preparedfor cell blocks at [facility] The cell blocks are submitted in cassettes A1/A3 and processed at [facility]MZ Prepared by: XIMENA Formalin fixation time: 10 [...] controls. CD3 stain background small sized T-cells. [place]-5 stains B-cells and is diffusely positive in [...] Villafuerte DO Time: 12:37 Source: Retroperitoneum Part: [id number] Pass(es): 1 Adequacy: Less than optimal/Material collected [...] . Flow Interpretation Retroperitoneum core biopsy: - HW13-niwjybrd B cell population expressing kappa light chains. [...] with a benign lymphoid population (linked report [id number]). Bone Marrow Aspirate Differential Value % Reference [...] with EBV infection (EBV DNA, QN PCR= 85846). Also, patient with remotehistory of immunosuppressive meds. NEGATIVE HIV. High risk (retroperitoneal abdominal mass, > 7cm, High LDH). [email or web address] Bulky disease (single mass >7 cm) Stage III (Retroperitoneal disease), with no bone marrow, or LIEUTENANT FIREFIGHTER involvement (LP x 2, Rare atypicallymphocytes W/small lymphocytes favor reactive lymphomonocytosis, flow:no evidence of clonal or aberrant cells) Retroperitoneal biopsy; IHC: Aggressive CD10+ B-cell lymphoma with EBV expression. Ki-67 = 80-90%. Flow cytometry: TE98-pxfefpxk B cell population expressing kappa light chains. 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 Patient has 1 son, and he is [...] We also discussed that nvolvement of the LIEUTENANT FIREFIGHTER occurs in up to 20% of cases ( but he was negative for LIEUTENANT FIREFIGHTER involvement), and the bone marrow is involved [...] of every cycle, will be managed between [place], and [facility]. He is scheduled with IR in [place] for IT methotrexate on day 1, day [...] x 2 did not show evidence of LIEUTENANT FIREFIGHTER involvement. So plan is to proceed with [...] By: Hem/Onc --- Protocol: SCP - HYDRATION [id number] Check-out note: RTC on 08/16 to [place] for C3D1 DA EPOCH-R (Then through the rest of the week between [facility] and [place]) Need IT MTX on D1 and D5 of each cycle by IR in [place] Need bag change Q 48 hrs IVF three times weekly on week of chemo RTC on Wednesday 08/23 for G-CSF shot CBC/Diff, CMP, LDH, twice weekly RTC with AP weekly for toxicity visit Need to be seen by Neena prior to each chemo cycle This chart was completed in part utilizing [employer] Speech Voice Recognition Software. Grammatical errors, random [...] time spent to review old records from [place], multiple recent hospitalizations, chemotherapy regimens, discussing with [...] 7:15 AM EDT Nurse Only Hematology Oncology [facility]3], [place] [address] [place] [address] [place], Nurse Lab Hem/Onc [address] [place] [address] 08/17/2023 8:00 AM EDT Hem/Onc Treatment Hematology Oncology [facility]3], [address] [address] [place], Chair 20 Hem/Onc [address] [place] [address] 08/17/2023 2:00 PM EDT Hospital Encounter Radiology, [address] [address] 08/19/2023 11:00 AM EDT Hem/Onc Treatment Hematology/Oncology Treatment, [address] [address] [facility], Chair3 Hem Onc [address] [place] [address] 08/19/2023 11:00 AM EDT Office Visit Palliative Medicine, [address] 5th [place] [address] Tessa Rubio, PA-C [address] [place] [address] 08/21/2023 9:00 AM EDT Nurse Only Hematology Oncology [facility]3], [address] [address] [place], Nurse Lab Hem/Onc [address] [place] [address] 08/21/2023 10:00 AM EDT Hem/Onc Treatment Hematology Oncology [facility]3], [address] [address] [place], Chair 18 Hem/Onc [address] [place] [address] 08/21/2023 2:00 PM EDT Hospital Encounter Radiology, [address] [address] 08/24/2023 8:00 AM EDT Immunization/Injectio n Hematology/Oncology Treatment, [address] [address] [facility], Chair1 Hem Onc [address] [place] [address] 08/25/2023 10:50 AM EDT Laboratory Laboratory [place] [address] [facility] [place] [phone] [place] Lab [facility] [address] [place] [place] [address] 08/26/2023 12:30 PM EDT Office Visit Hematology/Oncology, [address] [address] Lakeshia Stone CRNP [address] [place] [address] 08/27/2023 11:30 AM EDT Laboratory Laboratory [place] [address] [place] [phone] [place] Lab [facility] [address] [facility] [place] [address] 09/07/2023 2:00 PM EDT Appointment Radiology, [address] [place] [address] 09/11/2023 2:00 PM EDT Appointment Radiology, [address] [place] [address] 09/25/2023 2:40 PM EDT Office Visit Rheumatology [address] [place] [address] Oliver Zhang MD [address] [place] [address] [place] [address] 02/19/2024 12:00 PM EST Office Visit Family Practice [address], [place] [address] [place] [address] Kayla Reeder DO [address] [place] [address] Health Maintenance Due Date Last Done Comments COVID-19 Vaccine (#1) 1993 Influenza Vaccine (FLU shot) (Season Ended) 2023 11/17/2016, 11/17/2016, 11/30/2015, Additional history exists Depression Screening 07/07/2024 07/08/2023, 06/11/19 24 Albumin/Creatinine Ratio Discontinued 08/02/2021 documented as of this encounter Medical Devices Implanted Type Area [employer] Footballer Device Identifier Shelf Expiration Date Model / Serial / Lot Mediport Pwr Mri 8fr [id number] - [id number] Implanted:Qty : 1 on 07/17/2023 by Medhat Angel MD at OR [facility] Right: Chest CR BARD : PERIPHERAL VASCULAR 07/16/2024 [id number] / / [id number] Port Implant W8f Poly Cath - [id number] Implanted:Qty : 1 on 07/17/2023 by Medhat Angel MD at OR [facility] CR BARD : PERIPHERAL VASCULAR [id number] 07/16/2024 [id number] / / [id number] documented as of this encounter Visit Diagnoses [...] Agents on File Name Relationship Healthcare Agent [facility] Communication Trixie Le [place] Repr esentative (appointed verbally by patient or by statute hierarchy) [email or web address] Care Teams Data Clerk Relationship Specialty Start Date End Date Kayla Reeder DO [address] [facility] [place] [address] PCP - General Family Medicine 06/11/23 documented as of this encounter
--- OUTSIDE RECORDS SUMMARY | 2023-09-18 21:25 | External Medical Summary | Summary of Care ---
Author Name Unknown Organization [facility] Address [address] [place] [address] Phone [phone] Care Team Providers Care Traffic Rate Analyst Name Role Phone Kayla Reeder DO Primary Care Provider +1- [phone] Reason for Visit * Reason Onset Date Comments Palliative Care Follow-up 08/13/2023 Encounter Details Date Type Department Care Team ([facility] st Contact Info) Description 08/13/2023 Telephone Palliative Medicine, [facility] [address] [facility] 5th [place] [address] Gabriella Florian CRNP [address] [place] [address] Palliative Care Follow-up Allergies No known active allergiesdocumented as of [...] Telephone Encounter - Tegan Burleson LPN - 08/13/2023 10:26 AM EDT Patient's Dilaudid prior auth was DENIED Patient is scheduled for visit tomorrow Call to patient No answer Left message requesting return call to [phone] Need to inquire if patient OK with waiting until tomorrow to discuss possible med change or if visit/phone call needs done today to discuss possible med change documented in this encounter Plan of Treatment Upcoming Encounters Date Type Department Care Team (Late st Contact Info) Description 08/14/2023 9:00 AM EDT Laboratory Laboratory, [facility] [address] [place] [address] [facility], Lab [address] [place] [address] 08/14/2023 10:00 AM EDT Telemedicine Hematology/Oncology, [facility] [address] [place] [address] Mike Chaudhary MD [address] [place] [address] Porsche Hurtado [facility] Hem Onc Clinic [address] [place] [address] 08/14/2023 10:30 AM EDT Office Visit Palliative Medicine, [address] [place] [address] Gabriella Florian CRNP [address] [place] [address] 08/17/2023 7:15 AM EDT Nurse Only Hematology Oncology [address] [address] [place], Nurse Lab Hem/Onc [address] [place] [address] 08/17/2023 8:00 AM EDT Hem/Onc Treatment Hematology Oncology [address] [address] [place], Chair 20 Hem/Onc [address] [place] [address] 08/17/2023 2:00 PM EDT Hospital Encounter Radiology, [address] [address] 08/19/2023 11:00 AM EDT Hem/Onc Treatment Hematology/Oncology Treatment, [address] [address] [facility], Chair3 Hem Onc [address] [place] [address] 08/21/2023 9:00 AM EDT Nurse Only Hematology Oncology [address] [address] [place], Nurse Lab Hem/Onc [facility] [place] [address] 08/21/2023 10:00 AM EDT Hem/Onc Treatment Hematology Oncology [facility] [place] [address] [place] [address] [place], Chair 18 Hem/Onc [facility] [place] [address] 08/21/2023 2:00 PM EDT Hospital Encounter Radiology, [address] [address] 09/07/2023 2:00 PM EDT Appointment Radiology, [address] [address] 09/11/2023 2:00 PM EDT Appointment Radiology, [address] [address] 09/25/2023 2:40 PM EDT Office Visit Rheumatology [address] [address] Oliver Zhang MD [address] [place] [address] 02/19/2024 12:00 PM EST Office Visit Family Practice [address] [address] [place] [address] Kayla Reeder DO [address] [place] [address] Health Maintenance Due Date Last Done Comments COVID-19 Vaccine (#1) 1993 Influenza Vaccine (FLU shot) (Season Ended) 2023 11/17/2016, 11/17/2016, 11/30/2015, Additional history exists Depression Screening 07/07/2024 07/08/2023, 06/11/19 24 Albumin/Creatinine Ratio Discontinued 08/02/2021 documented as of this encounter Medical Devices Implanted Type Area [employer]ian [employer] Officer Device Identifier Shelf Expiration Date Model / Serial / Lot Mediport Pwr Mri 8fr [id number] - [id number] Implanted:Qty : 1 on 07/17/2023 by Medhat Angel MD at OR [facility] Right: Chest CR BARD : PERIPHERAL VASCULAR 07/16/2024 [id number] / / [id number] Port Implant W8f Poly Cath - [id number] Implanted:Qty : 1 on 07/17/2023 by Medhat Angel MD at OR [facility] CR BARD : PERIPHERAL VASCULAR [id number] 07/16/2024 [id number] / / [id number] documented as of this encounter Advance Directives [...] Agents on File Name Relationship Healthcare Agent [facility] p Communication Trixie Le [facility] Repr esentative (appointed verbally by patient or by statute hierarchy) [email or web address] Care Teams Traffic Rate Analyst Relationship Specialty Start Date End Date Kayla Reeder DO [address] [facility] [place] [address] PCP - General Family Medicine 06/11/23 documented as of this encounter
--- OUTSIDE RECORDS SUMMARY | 2023-09-18 21:25 | External Medical Summary ---
Author Name Unknown Address Unknown Organization K1F:LABORATORY [facility] - [address] [place] [address] Laboratory Report Ordering Provider Test Date Status TYE BARAJASMAIKEL 08/14/2023 09:00:20 Final Observation Date Value Abnormality Reference (Units ) Status Uric Acid 08/14/2023 09:00:20 5.0 3.4-7.0 (m g/dL) Final Performing Location LABORATORY [facility] - [address] [place] [address]
--- OUTSIDE RECORDS SUMMARY | 2023-09-18 21:25 | External Medical Summary ---
Author Name Unknown Address Unknown Organization K1F:LABORATORY [facility] - [address] [place] [address] Laboratory Report Ordering Provider Test Date Status MATTI BARAJAS 08/14/2023 09:00:20 Final Observation Date Value Abnormality Reference (Units ) Status WBC, Total 08/14/2023 09:00:20 7.84 4.00-10.80 (K/uL) Final RBC 08/14/2023 09:00:20 3.31 4.50-5.25 (M/uL) Final Hemoglobin 08/14/2023 09:00:20 10.2 Below low normal 14.0-16.8 (g/dL) Final HCT 08/14/2023 09:00:20 31.7 Below low normal 40.0-48.4 (%) Final MCV 08/14/2023 09:00:20 95.8 82.0-99.5 (fL) Final MCH 08/14/2023 09:00:20 30.8 27.0-34.0 (pg) Final MCHC 08/14/2023 09:00:20 32.2 32.0-36.0 (g/dL) Final RDW 08/14/2023 09:00:20 19.6 11.5-15.5 (%) Final Platelets 08/14/2023 09:00:20 136 Below low normal 140-400 (K/uL) Final MPV 08/14/2023 09:00:20 10.4 6.6-11.1 (fL) Final Nucleated erythrocytes/100 leukocytes [Ratio] in Blood by Automated count 08/14/2023 09:00:20 0 <=0 (/100 WBCs) Final Performing Location LABORATORY [facility] - [address] [address]
--- OUTSIDE RECORDS SUMMARY | 2023-09-18 21:26 | External Medical Summary ---
Author Name Unknown Address Unknown Organization K1F:LABORATORY [facility] - [address] [facility]. [place] [address] Laboratory Report Ordering Provider Test Date Status MATTI BARAJAS 08/11/2023 12:10:00 Final Observation Date Value Abnormality Reference (Units ) Status SYNC LEUKOCYTES IN BLOOD BY AUTOMATED COUNT 08/11/2023 12:10:00 12.50 Above high normal 4.00-10.80 (K/uL) Final Neutrophils/100 leukocytes in Blood by Manual count 08/11/2023 12:10:00 80.0 Above high normal 40.0-75.0 (%) Final Lymphocytes/100 leukocytes in Blood by Manual count 08/11/2023 12:10:00 8.0 Below low normal 18.0-42.0 (%) Final Monocytes/100 leukocytes in Blood by Manual count 08/11/2023 12:10:00 4.0 1.0-11.0 (%) Final Metamyelocytes/100 leukocytes in Blood by Manual count 08/11/2023 12:10:00 7.0 Above high normal <=0.0 (%) Final Myelocytes/100 leukocytes in Blood by Manual count 08/11/2023 12:10:00 1.0 Above high normal <=0.0 (%) Final Neutrophils [#/volume] in Blood by Manual count 08/11/2023 12:10:00 10.00 Above high normal 1.80-7.70 (K/uL) Final Lymphocytes [#/volume] in Blood by Manual count 08/11/2023 12:10:00 1.00 1.00-4.80 (K/uL) Final Monocytes [#/volume] in Blood by Manual count 08/11/2023 12:10:00 0.50 0.00-1.10 (K/uL) Final Metamyelocytes [#/volume] in Blood by Manual count 08/11/2023 12:10:00 0.88 Above high normal <=0.00 (K/uL) Final Myelocytes [#/volume] in Blood by Manual count 08/11/2023 12:10:00 0.13 Above high normal <=0.00 (K/uL) Final Toxic granules [Presence] in Blood by Light microscopy 08/11/2023 12:10:00 Moderate Abnormal None Seen Final Performing Location LABORATORY [facility] - [address] [place] [address]
--- OUTSIDE RECORDS SUMMARY | 2023-09-18 21:26 | External Medical Summary | Summary of Care ---
Author Name Unknown Organization [facility] Address [address] [place] [address] Phone [phone] Care Team Providers Care Ironmolder Name Role Phone Kayla Reeder DO Primary Care Provider +1- [phone] Reason for Visit * Reason Comments Procedure Lab Draw from Port Encounter Details Date Type Department Care Team ([facility] st Contact Info) Description 08/11/2023 12:00 PM EDT Nurse Only Hematology/Oncology Treatment, [facility] [address] [place] [address] Gl, Chair6 Hem Onc [address] [place], [place] [id number] Procedure (Lab Draw from Port) Allergies No known active allergiesdocumented as of [...] BEFORE BEDTIME 60 Each 5 06/11/2023 Active HYDROmorphone HCl 2 MG Oral Tablet (Dilaudid) Take 1.5 Tablets by mouth every 4 hours as needed for moderate or severe pain 100 Tablet 07/07/2023 Active Sulfamethoxazole-Tri methoprim 400-80 MG Oral Tablet [...] treatment only. 75 Tablet 5 07/27/2023 Active documented as of this encounter (statuses [...] Nursing Notes * Gabriella Mendez, RN - 08/11/2023 12:21 PM EDT Bena 7 VAD flushed with 10 ml NSS. 7 ml of blood drawn back and wasted. Labs collected. VAD flushed with 20 ml NSS and Heparin 5 ml (100 units/ml). Carver needle removed intact. Patient left IVC by ambulating. Accompanied by Family. Voiced no complaints. Gabriella Mendez RN 08/11/2023 12:21 PM documented in this encounter Plan of Treatment Upcoming Encounters Date Type Department Care Team (Late st Contact Info) Description 08/11/2023 1:00 PM EDT Office Visit Hematology/Oncology, [facility] [address] [facility] [address] Lakeshia Stone CRNP [address] [facility] [address] Arrived 08/12/2023 10:45 AM EDT Imaging Radiology, [place] [address] [place] [address] [place] [address] 08/14/2023 9:00 AM EDT Laboratory Laboratory, [facility] 400 [facility] [place] [phone] [facility], Lab [address] [place] [address] 08/14/2023 10:00 AM EDT Telemedicine Hematology/Oncology, [address] [address] Mike Chaudhary MD [facility] [place] [address] Cart, Telemed [facility] Hem Onc Clinic [address] [place] [address] 08/14/2023 10:30 AM EDT Office Visit Palliative Medicine, [address] [place] [address] Gabriella Florian CRNP [address] [place] [address] 08/17/2023 7:15 AM EDT Nurse Only Hematology Oncology [address] [address] [place], Nurse Lab Hem/Onc [address] [place] [address] 08/17/2023 8:00 AM EDT Hem/Onc Treatment Hematology Oncology [address] [address] [place], Chair 20 Hem/Onc [address] [place] [address] 08/17/2023 2:00 PM EDT Hospital Encounter Radiology, [address] [address] 08/19/2023 11:00 AM EDT Hem/Onc Treatment Hematology/Oncology Treatment, [address] [address] [facility], Chair3 Hem Onc [address] [place] [address] 08/21/2023 9:00 AM EDT Nurse Only Hematology Oncology [facility], [address] [address] [place], Nurse Lab Hem/Onc [address] [place] [address] 08/21/2023 10:00 AM EDT Hem/Onc Treatment Hematology Oncology [facility], [address] [address] [place], Chair 18 Hem/Onc [address] [place] [address] 08/21/2023 2:00 PM EDT Hospital Encounter Radiology, [address] [address] 09/07/2023 2:00 PM EDT Appointment Radiology, [address] [address] 09/11/2023 2:00 PM EDT Appointment Radiology, [address] [address] 09/25/2023 2:40 PM EDT Office Visit Rheumatology [address] [place] [address] Oliver Zhang MD [address] [place] [address], [place] [address] 02/19/2024 12:00 PM EST Office Visit Family Practice [place] Maribell Garcia [address] [place] [address] Kayla Reeder DO [address] [place] [address] Pending Results Name Type Priority Associated Diagnoses Date /Time CBC WITH WBC DIFFERENTIAL Lab STAT 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) 08/11/2023 12:10 PM EDT COMPREHENSIVE METABOLIC PANEL Lab STAT 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) 08/11/2023 12:10 PM EDT URIC ACID Lab STAT 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) 08/11/2023 12:10 PM EDT LD Lab STAT 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) 08/11/2023 12:10 PM EDT DIFFERENTIAL, AUTOMATED Lab STAT 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) 08/11/2023 12:10 PM EDT Scheduled Orders Name Type Priority Associated Diagnoses Orde r Schedule CBC Lab STAT 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) Ordered: 08/11/2023 DIFFERENTIAL, AUTOMATED Lab STAT 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) Ordered: 08/11/2023 Health Maintenance Due Date Last Done Comments COVID-19 Vaccine (#1) 1995 Influenza Vaccine (FLU shot) (Season Ended) 2023 11/17/2016, 11/17/2016, 11/30/2015, Additional history exists Depression Screening 07/07/2024 07/08/2023, 06/11/19 24 Albumin/Creatinine Ratio Discontinued 08/02/2021 documented as of this encounter Medical Devices Implanted Type Area Tool And Die Engineer Device Identifier Shelf Expiration Date Model / Serial / Lot Mediport Pwr Mri 8fr [id number] - [id number] Implanted:Qty : 1 on 07/17/2023 by Medhat Angel MD at OR [facility] Right: Chest CR BARD : PERIPHERAL VASCULAR 07/16/2024 [id number] / / [id number] Port Implant W8f Poly Cath - [id number] Implanted:Qty : 1 on 07/17/2023 by Medhat Angel MD at OR [facility] CR BARD : PERIPHERAL VASCULAR [id number] 07/16/2024 [id number] / / [id number] documented as of this encounter Procedures Procedure Name Priority Date/Time Associated Diagnosis Comments CBC STAT 08/11/2023 12:10 PM EDT 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) documented in this encounter Results * (ABNORMAL) CBC (08/11/2023 12:10 PM EDT) WBC 12.50(H) 4.00 - 10.80 K/uL 08/11/2023 12:38 PM EDT LABORATORY GL RBC 2.96 4.50 - 5.25 M/uL 08/11/2023 12:38 PM EDT LABORATORY [facility] HGB 9.0(L) 14.0 - 16.8 g/dL 08/11/2023 12:38 PM EDT LABORATORY GL HCT 28.6(L) 40.0 - 48.4 % 08/11/2023 12:38 PM EDT LABORATORY [facility] MCV 96.6 82.0 - 99.5 fL 08/11/2023 12:38 PM EDT LABORATORY [facility] MCH 30.4 27.0 - 34.0 pg 08/11/2023 12:38 PM EDT LABORATORY [facility] MCHC 31.5 32.0 - 36.0 g/dL 08/11/2023 12:38 PM EDT LABORATORY [facility] RDW 20.0 11.5 - 15.5 % 08/11/2023 12:38 PM EDT LABORATORY [facility] PLT 102(L) 140 - 400 K/uL 08/11/2023 12:38 PM EDT LABORATORY [facility] MPV 11.2 6.6 - 11.1 fL 08/11/2023 12:38 PM EDT LABORATORY [facility] nRBCs 1(H) <=0 /100 WBCs 08/11/2023 12:38 PM EDT LABORATORY [facility] Blood Blood sample taken from central line / Unknown Central Line / Unknown 08/11/2023 12:10 PM EDT 08/11/2023 12:24 PM EDT Mike Chaudhary MD LAB BLOOD O RDERABLES LABORATORY [facility] [address] [place] [address] documented in this encounter Visit [...] [facility] p Communication Trixie Le [facility] Repr esentative (appointed verbally by patient or by statute hierarchy) [email or web address] Care Teams Ironmolder Relationship Specialty Start Date End Date Kayla Reeder DO [address] [place] [address] PCP - General Family Medicine 06/11/23 documented as of this encounter
--- OUTSIDE RECORDS SUMMARY | 2023-09-18 21:26 | External Medical Summary | Summary of Care ---
Author Name Unknown Organization [facility] Address [address] [place] [address] Phone [phone] Care Team Providers Care Nut Picker Name Role Phone Kayla Reeder DO Primary Care Provider +1- [phone] Encounter Details Date Type Department Care Team (Late st Contact Info) Description 07/31/2023 Telephone Hematology/Oncology, [facility] [address] [place] [address] Mike Chaudhary MD [address] [place] [address] Allergies No known active allergiesdocumented as of this encounter (statuses as of 08/10/2023) Medications Medication Sig Dispensed Refills Start Date [...] treatment only. 75 Tablet 5 07/27/2023 Active Potassium Chloride [facility] ER 10 MEQ Oral Tablet Extended ReleaseIndications:H ypokalemia Take 2 Tablets by mouth in the morning and 2 Tablets before bedtime. Do all this for 14 days. 56 Tablet 07/24/2023 4 documented as of this encounter (statuses as of 08/10/2023) Active Problems Problem Noted Date Diagnosed Date [...] as of this encounter (statuses as of 08/10/2023) Resolved Problems Problem Noted Date Diagnosed Date [...] as of this encounter (statuses as of 08/10/2023) Immunizations Name Administration Dates Next Due DT [...] Notes * Telephone Encounter - Radha Grimm [facility] - 08/10/2023 2:39 PM EDT DA-EPOCH LAB MONITORING DOCUMENTATION Farhad Franco [id number] Patient Phone Numbers Communication: Left message requesting pt to obtain lab work and sent MyG Indication/Staging/Diagnosis Code: 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 Chaudhary Treatment: DA-EPOCH Cycle 2 Patient [...] Unable to reach patient via telephone, sent MyG message with reminder that patient must get labs today or tomorrow to stay compliant with protocol. 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 Chaudhary Treatment: DA-EPOCH Cycle 2 Patient was educated by nurse specialist at start of treatment: Yes Patient was introduced to Chemotherapy Clinic: We are Pharmacists & Pharmacy Technicians, who are a part of hematology & oncology care across the [facility] offering telephone based appointments from the comfort of your own home. Pharmacists are available Thursday-Thursday from 8am - 4:30pm via call to the infusion center clinic. After 4:30pm, calls/questions/concerns should be directedto their oncologist office directly (number provided). In case of an emergency, patient is aware [facility] 91 or travel to nearest emergency department. 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 Chaudhary Treatment: DA-EPOCH Cycle 2 Patient was educated by nurse specialist at start of treatment: Yes Patient was introduced to Chemotherapy Clinic: We are Pharmacists & Pharmacy Technicians, who are a part of hematology & oncology care across the [facility] offering telephone based appointments from the comfort of your own home. Pharmacists are available Thursday-Thursday from 8am - 4:30pm via call to the infusion center clinic. After 4:30pm, calls/questions/concerns should be directedto their oncologist office directly (number provided). In case of an emergency, patient is aware tocall 911 or travel to nearest emergency department. 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 Chaudhary Treatment: DA-EPOCH Cycle 2 Patient [...] Patient currently scheduled 08/03/23 @ 8:00am ([facility] lab) Radha Grimm Marine Oiler III Hematology Oncology Oral Chemotherapy Clinic Medication Therapy Disease Management [facility] 07/31/2023 12:54 PM documented in this encounter Plan of Treatment Upcoming Encounters Date Type Department Care Team (Late st Contact Info) Description 08/11/2023 12:00 PM EDT Nurse Only Hematology/Oncology Treatment, [facility] [address] [facility], Chair6 Hem Onc [address] [place] [address] 08/11/2023 1:00 PM EDT Office Visit Hematology/Oncology, [address] [address] Lakeshia Stone CRNP [address] [place] [address] 08/12/2023 10:45 AM EDT Imaging Radiology, [address] [place], [place] [address] 08/14/2023 9:00 AM EDT Laboratory Laboratory, [address] [phone] [facility], Lab [address] [place] [address] 08/14/2023 10:00 AM EDT Telemedicine Hematology/Oncology, [address] [address] Mike Chaudhary MD [address] [place] [address] Cart, Telemed [facility] Hem Onc Clinic [address] [place] [address] 08/14/2023 10:30 AM EDT Office Visit Palliative Medicine, [address] 5th [place] [address] Gabriella Florian CRNP [address] [place] [address] 08/17/2023 7:15 AM EDT Nurse Only Hematology Oncology apper [facility], [address] [address] [place], Nurse Lab Hem/Onc [address] [place] [address] 08/17/2023 8:00 AM EDT Hem/Onc Treatment Hematology Oncology [facility], [address] [address] [place], Chair 20 Hem/Onc [address] [place] [address] 08/17/2023 2:00 PM EDT Hospital Encounter Radiology, [address] [phone] 08/19/2023 11:00 AM EDT Hem/Onc Treatment Hematology/Oncology Treatment, [address] [address] [facility], Chair4 Hem Onc [address] [place] [address] 08/21/2023 9:00 AM EDT Nurse Only Hematology Oncology [facility], [address] [address] [place], Nurse Lab Hem/Onc [address] [place] [address] 08/21/2023 10:00 AM EDT Hem/Onc Treatment Hematology Oncology [facility], [address] [address] [place], Chair 18 Hem/Onc [address] [place] [address] 08/21/2023 2:00 PM EDT Hospital Encounter Radiology, [address] [phone] 09/07/2023 2:00 PM EDT Appointment Radiology, [address] [address] 09/11/2023 2:00 PM EDT Appointment Radiology, [place] [address] [facility] [place] [address] 09/25/2023 2:40 PM EDT Office Visit Rheumatology [facility] [address] [place] [address] Oliver Zhang MD [facility] [place] [address] 02/19/2024 12:00 PM EST Office Visit Family Practice [place] [address] [place] [address] Kayla Reeder DO [address] [place] [id number] Health Maintenance Due Date Last Done Comments COVID-19 Vaccine (#1) 1995 Influenza Vaccine (FLU shot) (Season Ended) 2023 11/17/2016, 11/17/2016, 11/30/2015, Additional history exists Depression Screening 07/07/2024 07/08/2023, 06/11/19 24 Albumin/Creatinine Ratio Discontinued 08/02/2021 documented as of this encounter Medical Devices Implanted Type Area Flexible Babysitter Device Identifier Shelf Expiration Date Model / Serial / Lot Mediport Pwr Mri 8fr [id number] - [id number] Implanted:Qty : 1 on 07/17/2023 by Medhat Angel MD at OR [facility] Right: Chest CR BARD : PERIPHERAL VASCULAR 07/16/2024 [id number] / / [id number] Port Implant W8f Poly Cath - [id number] Implanted:Qty : 1 on 07/17/2023 by Medhat Angel MD at OR [facility] CR BARD : PERIPHERAL VASCULAR [id number] 07/16/2024 [id number] / / [id number] documented as of this encounter Advance Directives [...] File Name Relationship Healthcare Agent [facility] p Communication Trixie Le [facility] Repr esentative (appointed verbally by patient or by statute hierarchy) [email or web address] Trip Care Teams Nut Picker Relationship Specialty Start Date End Date Kayla Reeder DO [address] [facility] [place] [address] PCP - General Family Medicine 06/11/23 documented as of this encounter
--- OUTSIDE RECORDS SUMMARY | 2023-09-18 21:26 | External Medical Summary | Summary of Care ---
Author Name Unknown Organization [facility] Address [address] [place] [address] Phone [phone] Care Team Providers Care Brazing Machine Setter Name Role Phone Kayla Reeder DO Primary Care Provider +1- [phone] Reason for Visit * Reason Onset Date Comments Other 08/07/2023 Encounter Details Date Type Department Care Team ([facility] st Contact Info) Description 08/07/2023 Telephone Access Center, [place] [address] [facility] *DO NOT REMOVE THIS DEPARTMENT* [place] [address] Services, Scheduling [address] [place] [address] Other Allergies No known active allergiesdocumented as of this encounter (statuses as of 08/07/2023) Medications Medication Sig Dispensed Refills Start Date [...] Tablets in the evening. 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 60 Tablet 1 07/24/2023 Active Potassium Chloride [facility] 10 MEQ Oral Tablet Extended ReleaseIndications:H ypokalemia Take 2 Tablets by mouth in the morning and 2 Tablets before bedtime. Do all this for 14 days. 56 Tablet 07/24/2023 4 Active Lidocaine-Prilocaine 2.5-2.5 % External Cream (Emla)Indications:Bu [...] as of this encounter (statuses as of 08/07/2023) Active Problems Problem Noted Date Diagnosed Date [...] as of this encounter (statuses as of 08/07/2023) Resolved Problems Problem Noted Date Diagnosed Date [...] as of this encounter (statuses as of 08/07/2023) Immunizations Name Administration Dates Next Due DT [...] encounter Miscellaneous Notes * Addendum Note - Shannon Harkins RN - 08/07/2023 4:00 PM EDTAddended by: SHANNON HARKINS on: 08/07/2023 04:00 PM Modules accepted: Orders * Telephone Encounter - Shannon Harkins RN - 08/07/2023 3:54 PM EDT Left detailed message for the mother with the message below. Will also send a myG. 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 Labs: cbcd, cmp, uric, LD, mag. * Telephone Encounter - Shannon Harkins RN - 08/07/2023 3:52 PM EDT Mike Chaudhary MD You18 minutes ago (3:32 PM) He needs to remain very well-hydrated. Take Protonix, and Zofran as needed for nausea and vomiting.If poor oral intake, he should receive IV fluids either in our office, or in the ER if needed over the weekend. Please schedule him for a PA visit, and labs early next week. Thank you * Telephone Encounter - Shannon Harkins RN - 08/07/2023 3:[address] Chaudhary - please advise. It appears the patient has a prescription for Protonix. * Telephone Encounter - Arabella Collier OSA - 08/07/2023 2:59 PM EDT Patients Mother calling to state that yesterday he was very dehydrated and was very loopy and out of it. He did go to the [facility] ER and was given an IV. He is complaining of a lot of acid in his stomach and it is affecting his appetite. Mom is concerned if this happened because he was just dehydrated or if he is starting to develop ulcers again like he had before when he first started chemo. documented in this encounter Plan of Treatment Upcoming Encounters Date Type Department Care Team (Late st Contact Info) Description 08/10/2023 9:20 AM EDT [facility] [address] [place] [place] [id number] Violette Reyna [facility] [address] [facility] [place] [address] 08/11/2023 1:00 PM EDT Office Visit Hematology/Oncology, [facility] [place] [address] Lakes[facility]ia Stone CRNP [address] [facility] [address] 08/12/2023 10:45 AM EDT Imaging Radiology, [address] [place]ST [place] [id number] 08/14/2023 9:00 AM EDT Laboratory Laboratory, [address] [address] [facility], Lab [address] [place] [address] 08/14/2023 10:00 AM EDT Telemedicine Hematology/Oncology, [address] [address] Mike Chaudhary MD [facility] [place] [address] [place], Telemed [facility] Hem Onc Clinic [address] [place] [address] 08/14/2023 10:30 AM EDT Office Visit Palliative Medicine, [address] 5th [place] [address] Gabriella Florian CRNP [address] [place] [address] 08/17/2023 7:15 AM EDT Nurse Only Hematology Oncology [facility], [address] [address] I[place]ha, Nurse Lab Hem/Onc [address] [place] [address] 08/17/2023 8:00 AM EDT Hem/Onc Treatment Hematology Oncology [facility], [address] [address] [place], Chair 20 Hem/Onc [address] [place] [address] 08/17/2023 2:00 PM EDT Appointment Radiology, [address] [address] 08/19/2023 11:00 AM EDT Hem/Onc Treatment Hematology/Oncology Treatment, [address] [address] [facility], Chair4 Hem Onc [address] [place] [address] 08/21/2023 9:00 AM EDT Nurse Only Hematology Oncology [facility], [address] [address] Wilcox, Nurse Lab Hem/Onc [address] [place] [address] 08/21/2023 10:00 AM EDT Hem/Onc Treatment Hematology Oncology [facility], [address] [address] [place], Chair 18 Hem/Onc [address] [place] [address] 08/21/2023 2:00 PM EDT Appointment Radiology, [address] [address] 09/07/2023 2:00 PM EDT Appointment Radiology, [address] [address] 09/11/2023 2:00 PM EDT Appointment Radiology, [address] [address] 09/25/2023 2:40 PM EDT Office Visit Rheumatology [place] [address] [facility] [place] [address] Oliver Zhang MD [facility] [place] [address] 02/19/2024 12:00 PM EST Office Visit Family [place] [facility] Maribell Garcia [address] [place] [place] [address] Kayla Reeder DO [address] [place] [address] Scheduled Orders Name Type Priority Associated Diagnoses Orde r Schedule MAGNESIUM Lab STAT 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) Expected: 08/11/2023 (Approximate), Expires: 08/06/2024 Health Maintenance Due Date Last Done Comments COVID-19 Vaccine (#1) 1995 Influenza Vaccine (FLU shot) (Season Ended) 2023 11/17/2016, 11/17/2016, 11/30/2015, Additional history exists Depression Screening 07/07/2024 07/08/2023, 06/11/19 24 Albumin/Creatinine Ratio Discontinued 08/02/2021 documented as of this encounter Medical Devices Implanted Type Area Retail Store Associate Device Identifier Shelf Expiration Date Model / Serial / Lot Mediport Pwr Mri 8fr [id number] - [id number] Implanted:Qty : 1 on 07/17/2023 by Medhat Angel MD at OR [facility] Right: Chest CR BARD : PERIPHERAL VASCULAR 07/16/2024 [id number] / / [id number] Port Implant W8f Poly Cath - [id number] Implanted:Qty : 1 on 07/17/2023 by Medhat Angel MD at OR [facility] CR BARD : PERIPHERAL VASCULAR [id number] 07/16/2024 [id number] / / [id number] documented as of this encounter Visit Diagnoses Diagnosis 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 Care Repr esentative (appointed verbally by patient or by statute hierarchy) [email or web address] Care Teams Brazing Machine Setter Relationship Specialty Start Date End Date Kayla Reeder DO [address] [facility] [place]ST [place] [address] PCP - General Family Medicine 06/11/23 documented as of this encounter
--- OUTSIDE RECORDS SUMMARY | 2023-09-18 21:26 | External Medical Summary | Summary of Care ---
Author Name Unknown Organization [facility] Address [address] [place] [address] Phone [phone] Care Team Providers Care Child And Family Counselor Name Role Phone Kayla Reeder DO Primary Care Provider +1- [phone] Reason for Visit * Reason Onset Date Comments Other 08/07/2023 Encounter Details Date Type Department Care Team ([facility] st Contact Info) Description 08/07/2023 Telephone Access Center, [place] [address] [facility] *DO NOT REMOVE THIS DEPARTMENT* [place] [address] Services, Scheduling [address] [place] [address] Other Allergies No known active allergiesdocumented as [...] encounter Miscellaneous Notes * Telephone Encounter - Andie Agosto OSA - 08/07/2023 4:13 PM EDT Pt mom calling back; Pt scheduled with Lakeshia Stone on 08/10 at 1 PM; Pt also needs port labs drawnon that date. Please call Trixie Bashir to schedule, or [phone] option 0. * Addendum Note - Shannon Harkins RN [...] scheduled early next week with labs and FIELD TECHNICAL SUPPORT CONSULTANT visit. Labs: cbcd, cmp, uric, LD, mag. [...] of it. He did go to the [facility] ER and was given an IV. [...] Description 08/10/2023 9:20 AM EDT Laboratory Laboratory [place] Mar[place] Garcia [address] [place] [phone] Violette Reyn[place] [address] [place] [address] 08/11/2023 1:00 PM EDT Office Visit Hematology/Oncology, [address] [address] Lakeshia Stone CRNP [address] [place] [address] 08/12/2023 10:45 AM EDT Imaging Radiology, [facility] [address] [place] [address] ERNST [place] [address] 08/14/2023 9:00 AM EDT Laboratory Laboratory, [address] [phone] [facility], Lab [address] [place] [address] 08/14/2023 10:00 AM EDT Telemedicine Hematology/Oncology, [address] [address] Mike Chaudhary MD [address] [place] [address] Bryant Telemed [facility] Hem Onc Clinic [address] [place] [address] 08/14/2023 10:30 AM EDT Office Visit Palliative Medicine, [address] 5th [place] [address] Gabriella Florian CRNP [address] [place] [address] 08/17/2023 7:15 AM EDT Nurse Only Hematology Oncology [facility] [address] [place] [address] [place], Nurse Lab Hem/Onc [address] [place] [address] 08/17/2023 8:00 AM EDT Hem/Onc Treatment Hematology Oncology apper [facility], [address] [address] Iesha, Chair 20 Hem/Onc [address] [place] [address] 08/17/2023 2:00 PM EDT Appointment Radiology, [address] [address] 08/19/2023 11:00 AM EDT Hem/Onc Treatment Hematology/Oncology Treatment, [address] [address] [facility], Chair4 Hem Onc [address] [place] [address] 08/21/2023 9:00 AM EDT Nurse Only Hematology Oncology [facility], [address] [address] I[place]ha, Nurse Lab Hem/Onc [address] [place] [address] 08/21/2023 10:00 AM EDT Hem/Onc Treatment Hematology Oncology [facility], [address] [address] [place], Chair 18 Hem/Onc [address] [place] [place] [address] 08/21/2023 2:00 PM EDT Appointment Radiology, [address] [address] 09/07/2023 2:00 PM EDT Appointment Radiology, [address] [address] 09/11/2023 2:00 PM EDT Appointment Radiology, [address] [address] 09/25/2023 2:40 PM EDT Office Visit Rheumatology [address] [place] [address] Oliver Zhang MD [address] [place] [address] 02/19/2024 12:00 PM EST Office Visit Family [facility] [address], [place] [address] [place], [place] [phone] Kayla Reeder DO [address] [place] [address] Scheduled Orders Name Type Priority Associated Diagnoses [...] this encounter Medical Devices Implanted Type Area Application Coordinator Device Identifier Shelf Expiration Date Model / Serial / Lot Mediport Pwr Mri 8fr [id number] - [id number] Implanted:Qty : 1 on 07/17/2023 by Medhat Angel MD at OR [facility] Right: Chest CR BARD : PERIPHERAL VASCULAR 07/16/2024 [id number] / / [id number] Port Implant W8f Poly Cath - [id number] Implanted:Qty : 1 on 07/17/2023 by Medhat Angel MD at OR [facility] CR BARD : PERIPHERAL VASCULAR [id number] 07/16/2024 [id number] / / [id number] documented as of this encounter Visit Diagnoses [...] Healthcare Agent Relationshi p Communication Trixie Le [facility] Repr esentative (appointed verbally by patient or by statute hierarchy) [email or web address] Care Teams Child And Family Counselor Relationship Specialty Start Date End Date Kayla Reeder DO [address] [facility] [place]NST [place] [address] PCP - General Family Medicine 06/11/23 documented as of this encounter
--- OUTSIDE RECORDS SUMMARY | 2023-09-18 21:26 | External Medical Summary | Summary of Care ---
Author Name Unknown Organization [facility] Address [address] [place] [address] Phone [phone] Care Team Providers Care Wringer Machine Operator Name Role Phone Kayla Reeder DO Primary Care Provider +1- [phone] Encounter Details Date Type Department Care Team (Late st Contact Info) Description 08/10/2023 Orders Only Family Practice [facility] [address] [place] [address] Kayla Reeder DO [address] [place] [address] Allergies No known active allergiesdocumented as of [...] 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 Overview: Follows in [email or web address] History of petit-mal seizures 03/07/2016 Tobacco use disorder 01/01/2016 Migraine with aura and witho ut status migrainosus, not intractable 12/18/2014 Gastroesophageal reflux disease with esophagitis 12/18/2014 Adjustment disorder with depressed mood 08/15/19 documented as of this encounter (statuses as [...] 12:00 PM EDT Nurse Only Hematology/Oncology Treatment, [address] [address] [facility], Chair6 Hem Onc [address] [place], [place] [address]ERNST [address] 08/11/2023 1:00 PM EDT Office Visit Hematology/Oncology, [address] [place] [address] Lakeshia Stone CRNP [address] [place], [place] [address]ERNST [place] [address] 08/12/2023 10:45 AM EDT Imaging Radiology, [address] ERNST [place] [phone] 08/14/2023 9:00 AM EDT Laboratory Laboratory, [address] [place] [phone] [facility], Lab [address] [place], [place] [address]ERN[address] [place] [address] 08/14/2023 10:00 AM EDT Telemedicine Hematology/Oncology, [address] [place] [address] Mike Chaudhary MD [address] [place] [address] [facility] Hem Onc Clinic [address] [place] [address] 08/14/2023 10:30 AM EDT Office Visit Palliative Medicine, [address] 5th [place] [address] Gabriella Florian CRNP [address] [place] [address] 08/17/2023 7:15 AM EDT Nurse Only Hematology Oncology [address] [address] [place], Nurse Lab Hem/Onc [address] [place] [address] 08/17/2023 8:00 AM EDT Hem/Onc Treatment Hematology Oncology [address] [address] Iesha, Chair 20 Hem/Onc [address] [place] [address] 08/17/2023 2:00 PM EDT Appointment Radiology, [address] [address] 08/19/2023 11:00 AM EDT Hem/Onc Treatment Hematology/Oncology Treatment, [address] [address] [facility], Chair4 Hem Onc [address] [place] [address] 08/21/2023 9:00 AM EDT Nurse Only Hematology Oncology [address] [address] I[place], Nurse Lab Hem/Onc [address] [place] [address] 08/21/2023 10:00 AM EDT Hem/Onc Treatment Hematology Oncology [facility], [address] [address] [place], Chair 18 Hem/Onc [address] [place] [address] 08/21/2023 2:00 PM EDT Appointment Radiology, [address] [address] 09/07/2023 2:00 PM EDT Appointment Radiology, [address] [address] 09/11/2023 2:00 PM EDT Appointment Radiology, [address] [address] 09/25/2023 2:40 PM EDT Office Visit Rheumatology [place] [address] [place] [address] Oliver Zhang MD [facility] [place] [address] 02/19/2024 12:00 PM EST Office Visit [facility] [address] [place], [place] [address] Kayla Reeder DO [address] [facility] [place] [address] Health Maintenance Due Date Last Done Comments COVID-19 Vaccine (#1) 1993 Influenza Vaccine (FLU shot) (Season Ended) 2023 11/17/2016, 11/17/2016, 11/30/2015, Additional history exists Depression Screening 07/07/2024 07/08/2023, 06/11/19 24 Albumin/Creatinine Ratio Discontinued 08/02/2021 documented as of this encounter Medical Devices Implanted Type Area Instructor Private Device Identifier Shelf Expiration Date Model / Serial / Lot Mediport Pwr Mri 8fr [id number] - [id number] Implanted:Qty : 1 on 07/17/2023 by Medhat Angel MD at OR [facility] Right: Chest CR BARD : PERIPHERAL VASCULAR 07/16/2024 [id number] / / [id number] Port Implant W8f Poly Cath - [id number] Implanted:Qty : 1 on 07/17/2023 by Medhat Angel MD at OR [facility] CR BARD : PERIPHERAL VASCULAR [id number] 07/16/2024 [id number] / / [id number] documented as of this encounter Procedures Procedure Name Priority Date/Time Associated Diagnosis Comments CHEMISTRY-OUTSIDE Routine 08/06/2023 documented in this encounter Results * (ABNORMAL) CHEMISTRY-OUTSIDE (08/06/2023) Not all results display below - see scan for full detail OUTSIDE LAB (SEE SCANNED REPORT) Comment:SCAN INCLUDES: PH HU [facility] ED LABS - CBCD, UA, MG, CMP, LIPASE CREATININE-OUTSID E LAB 0.90 0.40 - 1.50 MG/DL OUTSIDE LAB (SEE SCANNED REPORT) EGFR-OUTSIDE LAB >90 >=60 ML/MIN/1. 73M2 OUTSIDE LAB (SEE SCANNED REPORT) POTASSIUM-OUTSIDE LAB 2.9(A) 3.6 - 5.0 MMOL/L OUTSIDE LAB (SEE SCANNED REPORT) GLUCOSE-OUTSIDE LAB 114(A) 65 - 110 MG/DL OUTSIDE LAB (SEE SCANNED REPORT) HOURS FASTING OUTSID E LAB (SEE SCANNED REPORT) TRIGLYCERIDES-OUT SIDE LAB OUTSIDE LAB (SEE SCANNED REPORT) CHOLESTEROL-OUTSI DE LAB OUTSIDE LAB (SEE SCANNED REPORT) HDL-OUTSIDE LAB OUTS [place] LAB (SEE SCANNED REPORT) CHOL/HDL RATIO-OUTSIDE LAB OUTSIDE [place] B (SEE SCANNED REPORT) LDL (CALCULATED)-OUTS [place] LAB OUTSIDE LAB (SEE SCANNED REPORT) LDL (DIRECT MEASURE)-OUTSIDE LAB OUTSIDE LAB (SEE SCANNED REPORT) HEMOGLOBIN, J5S-AZRSOZW LAB OUTSIDE LAB (SEE SCANNED REPORT) PHOSPHORUS-OUTSID E LAB OUTSIDE LAB (SEE SCANNED REPORT) PTH-OUTSIDE LAB OUTS [place] LAB (SEE SCANNED REPORT) MICROALBUMIN RATIO-OUTSIDE LAB OUTSIDE [place] B (SEE SCANNED REPORT) PROTEIN, UA-OUTSIDE LAB NEGATIVE OUTSIDE LAB (SEE SCANNED REPORT) HGB 10.1(A) 14 - 18 GM/DL OUTSIDE LAB (SEE SCANNED REPORT) 08/06/2023 Abdullahi Mohamud MD LABORATORY OUTSIDE LAB (SEE SCANNED REPORT) documented in this encounter Advance Directives * [...] File Name Relationship Healthcare Agent [facility] p Communication Trixie Le [facility] Repr esentative (appointed verbally by patient or by statute hierarchy) [email or web address] Care Teams Wringer Machine Operator Relationship Specialty Start Date End Date Kayla Reeder DO [address] [facility] [place]ST [place] [address] PCP - General Family Medicine 06/11/23 documented as of this encounter
--- OUTSIDE RECORDS SUMMARY | 2023-09-18 21:26 | External Medical Summary | Summary of Care ---
Author Name Unknown Organization [facility] Address [address] [place] [address] Phone [phone] Care Team Providers Care Lead Cargo Mover Name Role Phone Kayla Reeder DO Primary Care Provider +1- [phone] Encounter Details Date Type Department Care Team (Late st Contact Info) Description 07/31/2023 Telephone Hematology/Oncology, [facility] [address] [place] [address] Mike Chaudhary MD [address] [place] [address] Allergies No known active allergiesdocumented [...] No 07/08/2023 Does the household have a [facility] source of income? 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 Chaudhary Treatment: DA-EPOCH Cycle 2 Patient was educated by nurse specialist at start of treatment: Yes Patient was introduced to Chemotherapy Clinic: We are Pharmacists & Pharmacy Technicians, who are a part of hematology & oncology care across the [facility] offering telephone based appointments from the comfort [...] labs due on Day 15 Radha Grimm Radio Division Lieutenant III Hematology Oncology Oral Chemotherapy Clinic Medication Therapy Disease Management [facility] 08/06/2023 1:28 PM Time Spent on Encounter: < 5 minutes * Telephone Encounter - Radha Grimm CPhT - 08/03/2023 3:21 PM EDT DA-Atmocean LAB MONITORING DOCUMENTATION Farhad Thanh Franco [id number] Patient Phone Numbers Communication: Chart review 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 Chaudhary Treatment: DA-EPOCH Cycle 2 Patient was educated by nurse specialist at start of treatment: Yes Patient was introduced to Chemotherapy Clinic: We are Pharmacists & Pharmacy Technicians, who are a part of hematology & oncology care across the [facility] offering telephone based appointments from the comfort of your own home. Pharmacists are available Thursday-Thursday from 8am - 4:30pm via call to the infusion center clinic. After 4:30pm, calls/questions/concerns should be directedto their oncologist office directly (number provided). In case of an emergency, [facility] is aware [facility] 911 or travel to nearest emergency department. 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 Chaudhary Treatment: DA-EPOCH Cycle 2 Patient [...] 8 Patient currently scheduled 08/03/23 @ 8:00am ([facility] lab) Radha Grimm Radio Division Lieutenant III Hematology Oncology Oral Chemotherapy Clinic Medication Therapy Disease Management [facility] 07/31/2023 12:54 PM documented in this encounter Plan of Treatment Upcoming Encounters Date Type Department Care Team (Late st Contact Info) Description 08/12/2023 10:45 AM EDT Imaging Radiology, [facility] [address] [place] [address] 08/14/2023 9:00 AM EDT Laboratory Laboratory, [address] [address] [facility], Lab [address] [place] [address] 08/14/2023 10:00 AM EDT Telemedicine Hematology/Oncology, [address] [place] [address] Mike Chaudhary MD [address] [place] [address] Cart, Telemed [facility] Hem Onc Clinic [address] [place], [place] [address] [address] 08/14/2023 10:30 AM EDT Office Visit Palliative Medicine, [address] 5th [place] [address] Gabriella Florian CRNP [address] [place] [address] 08/17/2023 7:15 AM EDT Nurse Only Hematology Oncology [facility], [address] [address] [place], Nurse Lab Hem/Onc [address] [place] [address] 08/17/2023 8:00 AM EDT Hem/Onc Treatment Hematology Oncology [address] [address] [place], Chair 20 Hem/Onc [address] [place] [address] 08/17/2023 2:00 PM EDT Hospital Encounter Radiology, [address] [address] 08/19/2023 11:00 AM EDT Hem/Onc Treatment Hematology/Oncology Treatment, [address] [address] [facility], Chair3 Hem Onc [address] [place] [address] 08/21/2023 9:00 AM EDT Nurse Only Hematology Oncology [address] [address] [place], Nurse Lab Hem/Onc [address] [place] [address] 08/21/2023 10:00 AM EDT Hem/Onc Treatment Hematology Oncology [facility], [address] [address] [place], Chair 18 Hem/Onc [facility] [place] [address] 08/21/2023 2:00 PM EDT Hospital Encounter Radiology, [address] [address] 09/07/2023 2:00 PM EDT Appointment Radiology, [address] [address] 09/11/2023 2:00 PM EDT Appointment Radiology, [address] [address] 09/25/2023 2:40 PM EDT Office Visit Rheumatology [place] [address] [facility] [facility] [place] [address] Oliver Zhang MD [facility] [employer] [place] [address] 02/19/2024 12:00 PM EST Office Visit Family Practice [address] [place] [address] [place] [address] Kayla Reeder DO [address] [place] [address] Health Maintenance Due Date Last Done Comments COVID-19 Vaccine (#1) 1993 Influenza Vaccine (FLU shot) (Season Ended) 2023 11/17/2016, 11/17/2016, 11/30/2015, Additional history exists Depression Screening 07/07/2024 07/08/2023, 06/11/19 24 Albumin/Creatinine Ratio Discontinued 08/02/2021 documented as of this encounter Medical Devices Implanted Type Area Appeals Officer Device Identifier Shelf Expiration Date Model / Serial / Lot Mediport Pwr Mri 8fr [id number] - [id number] Implanted:Qty : 1 on 07/17/2023 by Medhat Angel MD at OR [facility] Right: Chest CR BARD : PERIPHERAL VASCULAR 07/16/2024 [id number] / / [id number] Port Implant W8f Poly Cath - [id number] Implanted:Qty : 1 on 07/17/2023 by Medhat Angel MD at OR [facility] BARD : PERIPHERAL VASCULAR [id number] 07/16/2024 [id number] / / [id number] documented as of this encounter Advance Directives [...] File Name Relationship Healthcare Agent [facility] Communication Trixie Le [facility] Repr esentative (appointed verbally by patient or by statute hierarchy) [email or web address] Care Teams Lead Cargo Mover Relationship Specialty Start Date End Date Kayla Reeder DO [address] [facility] [place] [address] PCP - General Family Medicine 06/11/23 documented as of this encounter
--- OUTSIDE RECORDS SUMMARY | 2023-09-18 21:26 | External Medical Summary ---
Author Name Unknown Address Unknown Organization K1F:LABORATORY [facility] - [address] [address] Laboratory Report Ordering Provider Test Date Status MATTI BARAJAS 08/11/2023 12:10:00 Final Observation Date Value Abnormality Reference (Units ) Status Uric Acid 08/11/2023 12:10:00 4.8 3.4-7.0 (m g/dL) Final Performing Location LABORATORY [facility] - [address] [address]
--- OUTSIDE RECORDS SUMMARY | 2023-09-18 21:26 | External Medical Summary ---
Author Name Unknown Address Unknown Organization K1F:[facility] [address] [facility] [address] [place] [address] Laboratory Report Ordering Provider Test Date Status MATTI BARAJAS 08/11/2023 12:10:00 Final Observation Date Value Abnormality Reference (Units ) Status BUN 08/11/2023 12:10:00 6 6-20 (mg/dL) Final Creatinine 08/11/2023 12:10:00 0.8 0.6-1.2 (mg/dL) Final Glomerular filtration rate/1.73 sq M.predicted [Volume Rate/Area] in Serum, Plasma or Blood by Creatinine-based formula (CKD-EPI) 08/11/2023 12:10:00 >90 >=60 (mL/min) Final eGFR is calculated based on the CKD-EPI 2020 equation Sodium 08/11/2023 12:10:00 141 135-146 (m mol/L) Final Potassium 08/11/2023 12:10:00 4.1 3.5-5.1 (m mol/L) Final Cl 08/11/2023 12:10:00 107 98-107 (mm ol/L) Final CO2 08/11/2023 12:10:00 24 22-32 (mmo l/L) Final Anion gap 08/11/2023 12:10:00 10 7-15 (mmol /L) Final Glucose 08/11/2023 12:10:00 103 70-120 (mg /dL) Final Albumin 08/11/2023 12:10:00 3.6 Below low normal 3.8 -5.0 (g/dL) Final AST (Aspartate aminotransferase) 08/11/2023 12:10:00 19 10-50 (U/L) Fin al Alk Phos 08/11/2023 12:10:00 76 35-130 (U/ L) Final Bilirubin, Total 08/11/2023 12:10:00 <0.2 <=1 .2 (mg/dL) Final Calcium 08/11/2023 12:10:00 9.2 8.4-10.2 ( mg/dL) Final Protein 08/11/2023 12:10:00 5.9 Below low normal 6.0 -8.3 (g/dL) Final ALT (Alanine aminotransferase) 08/11/2023 12:10:00 33 10-50 (U/L) Jaswinder mullen Performing Location LABORATORY [facility] - [facility] [address]. [address] [place] [address]
--- OUTSIDE RECORDS SUMMARY | 2023-09-18 21:26 | External Medical Summary ---
Author Name Unknown Address Unknown Organization K1F:LABORATORY [facility] - [address] [address] Laboratory Report Ordering Provider Test Date Status MATTI BARAJAS 08/11/2023 12:10:00 Final Observation Date Value Abnormality Reference (Units ) Status Magnesium 08/11/2023 12:10:00 2.0 1.5-2.6 (m g/dL) Final Performing Location LABORATORY [facility] - [address] [address]
--- OUTSIDE RECORDS SUMMARY | 2023-09-18 21:26 | External Medical Summary | Summary of Care ---
Author Name Unknown Organization [facility] Address [address] [place] [address] Phone [phone] Care Team Providers Care Motorcyles Final Inspector Name Role Phone Varinder Kayla Clarke DO Primary Care Provider +1- [phone] Reason for Visit * Reason Onset Date Comments Medication Refill 08/11/2023 Encounter Details Date Type Department Care Team (Late st Contact Info) Description 08/11/2023 Refill Palliative Medicine, [facility] [address] [facility] 5th Floor [place], [place] [phone] Gregory Krishna MD [address] [place] [address] Allergies No known active allergiesdocumented as of [...] Pain, Moderate or Pain, Severe. 60 Tablet 08/11/2023 Active HYDROmorphone HCl 2 MG [...] Telephone Encounter - Gregory Krishna MD - 08/11/2023 2:05 PM EDT I have reviewed the patients controlled substance dispensing history in the Prescription Drug Monitoring Program in compliance with the [facility] regulations before prescribing a controlled substance. * Telephone Encounter - Gregory Krishna MD - 08/11/2023 2:05 PM EDT Signed Prescriptions: Disp Refills HYDROmorphone HCl 2 MG Oral Tablet (Dilaud*60 Tab*0 Sig: Take 1.5 Tablets by mouth every 4 hours as needed for Pain, Moderate or Pain, Severe. Authorizing Provider: GREGORY KRISHNA * Telephone Encounter - Tegan Burleson LPN - 08/11/2023 1:56 PM EDT I have reviewed the patients controlled substance dispensing history in the Prescription Drug Monitoring Program in compliance with the [facility] regulations before prescribing a controlled substance. Were any discrepancies found:no Last prescribed 07/06 Last Filled 07/06 RX Due 07/11 Only got #45 tabs filled at that time d/t pharmacy supply documented in this encounter Plan of Treatment Upcoming Encounters Date Type Department Care Team (Late st Contact Info) Description 08/12/2023 10:45 AM EDT Imaging Radiology, [address] [place] [address] 08/14/2023 9:00 AM EDT Laboratory Laboratory, [address] [phone] [facility], Lab [address] [place] [address] 08/14/2023 10:00 AM EDT Telemedicine Hematology/Oncology, [address] [address] Mike Chaudhary MD [address] [place] [address] [place], Telemed [facility] Hem Onc Clinic [address] [place] [address] [place] [address] 08/14/2023 10:30 AM EDT Office Visit Palliative Medicine, [address] 5th Floor [place] [address] Gabriella Florian CRNP [address] [place] [address] 08/17/2023 7:15 AM EDT Nurse Only Hematology Oncology [facility], [address] [address] [place], Nurse Lab Hem/Onc [address] [place] [address] 08/17/2023 8:00 AM EDT Hem/Onc Treatment Hematology Oncology [address] [address] [place], Chair 20 Hem/Onc [address] [place] [address] 08/17/2023 2:00 PM EDT Hospital Encounter Radiology, [address] [phone] 08/19/2023 11:00 AM EDT Hem/Onc Treatment Hematology/Oncology Treatment, [address] [address] [facility], Chair3 Hem Onc [address] [place] [address] 08/21/2023 9:00 AM EDT Nurse Only Hematology Oncology [address] [address] [place], Nurse Lab Hem/Onc [address] [place] [address] 08/21/2023 10:00 AM EDT Hem/Onc Treatment Hematology Oncology [address] [address] [place], Chair 18 Hem/Onc [address] [place] [address] 08/21/2023 2:00 PM EDT Hospital Encounter Radiology, [place] [address] [address] [facility] [place] [address] 09/07/2023 2:00 PM EDT Appointment Radiology, [address] [address] 09/11/2023 2:00 PM EDT Appointment Radiology, [address] [place] [address] 09/25/2023 2:40 PM EDT Office Visit Rheumatology [place] [address]60 [facility] [place], [place] [address] Oliver Zhang MD [facility] [employer] [place], [place] [address] 02/19/2024 12:00 PM EST Office Visit Family Practice [address], [place] [address] [place] [address] Kayla Reeder DO [address] [place] [address] Health Maintenance Due Date Last Done Comments COVID-19 Vaccine (#1) 1993 Influenza Vaccine (FLU shot) (Season Ended) 2023 11/17/2016, 11/17/2016, 11/30/2015, Additional history exists Depression Screening 07/07/2024 07/08/2023, 06/11/19 24 Albumin/Creatinine Ratio Discontinued 08/02/2021 documented as of this encounter Medical Devices Implanted Type Area Hide Sorter Device Identifier Shelf Expiration Date Model / Serial / Lot Mediport Pwr Mri 8fr [id number] - [id number] Implanted:Qty : 1 on 07/17/2023 by Medhat Angel MD at OR [facility] Right: Chest CR BARD : PERIPHERAL VASCULAR 07/16/2024 [id number] / / [id number] Port Implant W8f Poly Cath - [id number] Implanted:Qty : 1 on 07/17/2023 by Medhat Angel MD at OR [facility] CR BARD : PERIPHERAL VASCULAR [id number] 07/16/2024 [id number] / / [id number] documented as of this encounter Advance Directives [...] [facility] p Communication Trixie Le [facility] Repr esentative (appointed verbally by patient or by statute hierarchy) [email or web address] Motorcyles Final Inspector Relationship Specialty Start Date End Date Kayla Reeder DO [address] [facility] [place] [address] PCP - General Family Medicine 06/11/23 documented as of this encounter
--- OUTSIDE RECORDS SUMMARY | 2023-09-18 21:26 | External Medical Summary ---
Author Name Unknown Address Unknown Organization K1F:LABORATORY [facility] - [address] [address] Laboratory Report Ordering Provider Test Date Status MATTI BARAJAS 08/11/2023 12:10:00 Final Observation Date Value Abnormality Reference (Units ) Status WBC, Total 08/11/2023 12:10:00 12.50 Above high normal 4.00-10.80 (K/uL) Final RBC 08/11/2023 12:10:00 2.96 4.50-5.25 (M/uL) Final Hemoglobin 08/11/2023 12:10:00 9.0 Below low normal 14.0-16.8 (g/dL) Final HCT 08/11/2023 12:10:00 28.6 Below low normal 40.0-48.4 (%) Final MCV 08/11/2023 12:10:00 96.6 82.0-99.5 (fL) Final MCH 08/11/2023 12:10:00 30.4 27.0-34.0 (pg) Final MCHC 08/11/2023 12:10:00 31.5 32.0-36.0 (g/dL) Final RDW 08/11/2023 12:10:00 20.0 11.5-15.5 (%) Final Platelets 08/11/2023 12:10:00 102 Below low normal 140-400 (K/uL) Final MPV 08/11/2023 12:10:00 11.2 6.6-11.1 (fL) Final Nucleated erythrocytes/100 leukocytes [Ratio] in Blood by Automated count 08/11/2023 12:10:00 1 Above high normal <=0 (/100 WBCs) Final Performing Location LABORATORY [facility] - [address] [address]
--- OUTSIDE RECORDS SUMMARY | 2023-09-18 21:26 | External Medical Summary ---
Author Name Unknown Address Unknown Organization K1F:LABORATORY [facility] - [address] [address] Laboratory Report Ordering Provider Test Date Status MATTI BARAJAS 08/11/2023 12:10:00 Final Observation Date Value Abnormality Reference (Units ) Status LDH 08/11/2023 12:10:00 304 Above high normal <= 250 (U/L) Final Performing Location LABORATORY [facility] - [address] [address]
--- OUTSIDE RECORDS SUMMARY | 2023-09-18 21:26 | External Medical Summary | Summary of Care ---
Author Name Unknown Organization [facility] Address [address] [place] [address] Phone [phone] Care Team Providers Care Cooler Service Supervisor Name Role Phone Kayla Reeder DO Primary Care Provider +1- [phone] Reason for Visit * Reason Onset Date Comments Other 08/07/2023 Encounter Details Date Type Department Care Team ([facility] st Contact Info) Description 08/07/2023 Telephone Access Center, [place] [address] [facility] *DO NOT REMOVE THIS DEPARTMENT* [place] [address] Services, Scheduling [address] [place] [address] Other Allergies No known active allergiesdocumented as [...] encounter Miscellaneous Notes * Telephone Encounter - Rebeca Piper OSA - 08/07/2023 4:21 PM EDT Labs via port scheduled 1 hour prior to Silas appt... @Andrez, please let me know if this needs adjusted in any way. * Telephone Encounter - Andie Agosto OSA - 08/07/2023 4:13 PM EDT Pt mom calling back; Pt scheduled with Lakeshia Stone on 08/10 at 1 PM; Pt also needs port labs drawnon that date. Please call Trixie Bashir to schedule, or [phone] option [phone]. * Addendum Note - Shannon [...] scheduled early next week with labs and WEATHER CLERK visit. Labs: cbcd, cmp, uric, LD, mag. [...] of it. He did go to the [facility] ER and was given an IV. [...] 12:00 PM EDT Nurse Only Hematology/Oncology Treatment, [address] [place] [address] [facility], Chair6 Hem Onc [address] [place] [address] 08/11/2023 1:00 PM EDT Office Visit Hematology/Oncology, [address] [address] Lakeshia Stone CRNP [address] [place] [address] 08/12/2023 10:45 AM EDT Imaging Radiology, [address] [place] [address] 08/14/2023 9:00 AM EDT Laboratory Laboratory, [address] [phone] [facility], Lab [address] [place] [address] 08/14/2023 10:00 AM EDT Telemedicine Hematology/Oncology, [address] [address] Mike Chaudhary MD [address] [place] [address] Cart, Telemed [facility] Hem Onc Clinic [address] [place] [address] 08/14/2023 10:30 AM EDT Office Visit Palliative Medicine, [address], [place] [address] Gabriella Florian CRNP [address] [place] [address] 08/17/2023 7:15 AM EDT Nurse Only Hematology Oncology [facility], [address] [address] [place], Nurse Lab Hem/Onc [address] [place] [address] 08/17/2023 8:00 AM EDT Hem/Onc Treatment Hematology Oncology [facility], [address] [address] [place], Chair 20 Hem/Onc [address] [place] [address] 08/17/2023 2:00 PM EDT Appointment Radiology, [address] [address] 08/19/2023 11:00 AM EDT Hem/Onc Treatment Hematology/Oncology Treatment, [address] [address] [facility], Chair4 Hem Onc [address] [place] [address] 08/21/2023 9:00 AM EDT Nurse Only Hematology Oncology [facility], [address] [address] [place], Nurse Lab Hem/Onc [address] [place] [address] 08/21/2023 10:00 AM EDT Hem/Onc Treatment Hematology Oncology [facility], [address] [address] [place], Chair 18 Hem/Onc [address] [place] [address] 08/21/2023 2:00 PM EDT Appointment Radiology, [address] [address] 09/07/2023 2:00 PM EDT Appointment Radiology, [place] [address] [place] [address] 09/11/2023 2:00 PM EDT Appointment Radiology, [place] [address] [place] [address] 09/25/2023 2:40 PM EDT Office Visit Rheumatology [place] [address] [facility] [place], [place] [address] Oliver Zhang MD [address] [place] [address] [place] [address] 02/19/2024 12:00 PM EST Office Visit Family Practice [address] [place] [address] [place] [address] Kayla Reeder DO [address] [place] [address] Scheduled Orders Name Type Priority Associated [...] this encounter Medical Devices Implanted Type Area Helper [employer] Fabrication Device Identifier Shelf Expiration Date Model / Serial / Lot Mediport Pwr Mri 8fr [id number] - [id number] Implanted:Qty : 1 on 07/17/2023 by Medhat Angel MD at OR [facility] Right: Chest CR BARD : PERIPHERAL VASCULAR 07/16/2024 [id number] / / [id number] Port Implant W8f Poly Cath - [id number] Implanted:Qty : 1 on 07/17/2023 by Medhat Angel MD at OR [facility] BARD : PERIPHERAL VASCULAR [id number] 07/16/2024 [id number] / / [id number] documented as of this encounter Visit Diagnoses [...] on File Name Relationship Healthcare Agent [facility] p Communication Trixie Le [facility] Repr esentative (appointed verbally by patient or by statute hierarchy) [email or web address] Care Teams Cooler Service Supervisor Relationship Specialty Start Date End Date Kayla Reeder DO [address] [facility] [place] [address] PCP - General Family Medicine 06/11/23 documented as of this encounter
--- OUTSIDE RECORDS SUMMARY | 2023-09-18 21:27 | External Medical Summary ---
Author Name Unknown Address Unknown Organization K1F[facility] [address] [facility] [place] [address] Laboratory Report Ordering Provider Test Date Status MATTI BARAJAS 08/06/2023 08:14:53 Final Observation Date Value Abnormality Reference (Units ) Status BUN 08/06/2023 08:14:53 24 Above high normal 6-20 (mg/dL) Final Creatinine 08/06/2023 08:14:53 0.9 0.6-1.2 (mg/dL) Final Glomerular filtration rate/1.73 sq M.predicted [Volume Rate/Area] in Serum, Plasma or Blood by Creatinine-based formula (CKD-EPI) 08/06/2023 08:14:53 >90 >=60 (mL/min) Final eGFR is calculated based on the CKD-EPI 2020 equation Sodium 08/06/2023 08:14:53 141 135-146 (m mol/L) Final Potassium 08/06/2023 08:14:53 3.2 Below low normal 3.5 -5.1 (mmol/L) Final Cl 08/06/2023 08:14:53 102 98-107 (mm ol/L) Final CO2 08/06/2023 08:14:53 26 22-32 (mmo l/L) Final Anion gap 08/06/2023 08:14:53 13 7-15 (mmol /L) Final Glucose 08/06/2023 08:14:53 97 70-120 (mg /dL) Final Albumin 08/06/2023 08:14:53 4.0 3.8-5.0 (g /dL) Final AST (Aspartate aminotransferase) 08/06/2023 08:14:53 <10 Below low normal 10-50 (U/L) Final Alk Phos 08/06/2023 08:14:53 59 35-130 (U/ L) Final Bilirubin, Total 08/06/2023 08:14:53 0.4 <=1 .2 (mg/dL) Final Calcium 08/06/2023 08:14:53 8.9 8.4-10.2 ( mg/dL) Final Protein 08/06/2023 08:14:53 5.9 Below low normal 6.0 -8.3 (g/dL) Final ALT (Alanine aminotransferase) 08/06/2023 08:14:53 35 10-50 (U/L) Jaswinder mullen Performing Location LABORATORY [facility] - [address] [place], [place] [address]keyonna Pizano. Jarek DUKES [id number]
--- OUTSIDE RECORDS SUMMARY | 2023-09-18 21:27 | External Medical Summary | Summary of Care ---
Author Name Unknown Organization [facility] Address [address] [place] [address] Phone [phone] Care Team Providers Care Manufacturing Plant Technician Name Role Phone Kayla Reeder DO Primary Care Provider +1- [phone] Encounter Details Date Type Department Care Team (Late st Contact Info) Description 07/31/2023 Telephone Hematology/Oncology, [facility] [address] [place] [address] Mike Chaudhary MD [address] [place] [address] Allergies No known active allergiesdocumented as of this encounter (statuses as of 08/06/2023) Medications Medication Sig Dispensed Refills Start Date [...] as of this encounter (statuses as of 08/06/2023) Active Problems Problem Noted Date Diagnosed Date [...] as of this encounter (statuses as of 08/06/2023) Resolved Problems Problem Noted Date Diagnosed Date [...] as of this encounter (statuses as of 08/06/2023) Immunizations Name Administration Dates Next Due DT [...] Notes * Telephone Encounter - Radha Grimm [facility] - 08/06/2023 1:26 PM EDT DA-EPOCH LAB MONITORING DOCUMENTATION Farhad Franco [id number] Patient Phone Numbers Communication: Chart review 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 Chaudhary Treatment: DA-EPOCH Cycle 2 Patient was educated by nurse specialist at start of treatment: Yes Patient was introduced to Chemotherapy Clinic: We are Pharmacists & Pharmacy Technicians, who are a part of hematology & oncology care across the [facility] system offering telephone based appointments from the comfort of your own home. Pharmacists are available Thursday-Thursday from 8am - 4:30pm via call to the infusion center clinic. After 4:30pm, calls/questions/concerns should be directedto their oncologist office directly (number provided). In case of an emergency, patient is aware [place] [phone] or travel to nearest emergency department. 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 Chaudhary Treatment: DA-EPOCH Cycle 2 Patient was educated by nurse specialist at start of treatment: Yes Patient was introduced to Chemotherapy Clinic: We are Pharmacists & Pharmacy Technicians, who are a part of hematology & oncology care across the [facility] offering telephone based appointments from the [...] labs due on Day 11 Radha Grimm Presentation Manager III Hematology Oncology Oral Chemotherapy Clinic Medication Therapy Disease Management [facility] 08/03/2023 3:27 PM Time Spent on Encounter: < 5 minutes * Telephone Encounter - Radha Grimm CPhT - 07/31/2023 12:06 PM EDT DA-EPOCH LAB MONITORING DOCUMENTATION Farhad Law Joan [id number] Patient Phone Numbers Communication: Left message requesting pt to obtain lab work on 08/02 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 Chaudhary Treatment: DA-EPOCH Cycle 2 Patient [...] 8 Patient currently scheduled 08/03/23 @ 8:00am ([facility] lab) Radha Grimm Presentation Manager III Hematology Oncology Oral Chemotherapy Clinic Medication Therapy Disease Management [facility] 07/31/2023 12:54 PM documented in this encounter Plan of Treatment Upcoming Encounters Date Type Department Care Team (Late st Contact Info) Description 08/10/2023 9:20 AM EDT Laboratory Laboratory [address], [place] [address] [facility] [place] [phone] [place] [facility] [address] [facility] [place] [address] 08/12/2023 10:45 AM EDT Imaging Radiology, [address] [place] [address] 08/14/2023 9:00 AM EDT Laboratory Laboratory, [address] [phone] [facility], Lab [address] [place] [address] 08/14/2023 10:00 AM EDT Telemedicine Hematology/Oncology, [address] [address] Mike Chaudhary MD [address] [place] [address] Cart, Telemed [facility] Hem Onc Clinic [address] [place] [address] 08/14/2023 10:30 AM EDT Office Visit Palliative Medicine, [address] 5th Floor [place] [address] Gabriella Florian CRNP [address] [place] [address] 08/17/2023 7:15 AM EDT Nurse Only Hematology Oncology [facility], [address] [address] [place], Nurse Lab Hem/Onc [address] [place] [address] 08/17/2023 8:00 AM EDT Hem/Onc Treatment Hematology Oncology [facility], [address] [address] [place], Chair 20 Hem/Onc [address] [place] [address] 08/17/2023 2:00 PM EDT Appointment Radiology, [address] [phone] 08/19/2023 11:00 AM EDT Hem/Onc Treatment Hematology/Oncology Treatment, [address] [address] [facility], Chair4 Hem Onc [address] [place] [address] 08/21/2023 9:00 AM EDT Nurse Only Hematology Oncology [address] [address] Jessie, Nurse Lab Hem/Onc [address] [place] [address] 08/21/2023 10:00 AM EDT Hem/Onc Treatment Hematology Oncology [address] [address] [place], Chair 18 Hem/Onc [address] [place] [address] 08/21/2023 2:00 PM EDT Appointment Radiology, [address] [address] 09/07/2023 2:00 PM EDT Appointment Radiology, Jessie [address] [place] [address] 09/11/2023 2:00 PM EDT Appointment Radiology, Jessie [address] [place] [facility] [place] [address] 09/25/2023 2:40 PM EDT Office Visit Rheumatology [address] [place] [address] Oliver Zhang MD [address] [place] [address] [place], [place] [address] 02/19/2024 12:00 PM EST Office Visit Family Practice [address], [place] [address] [place] [address] Kayla Reeder DO [address] [place] [address] Health Maintenance Due Date Last Done Comments COVID-19 Vaccine (#1) 1993 Influenza Vaccine (FLU shot) (Season Ended) 2023 11/17/2016, 11/17/2016, 11/30/2015, Additional history exists Depression Screening 07/07/2024 07/08/2023, 06/11/19 24 Albumin/Creatinine Ratio Discontinued 08/02/2021 documented as of this encounter Medical Devices Implanted Type Area Station Engineer Main Line Device Identifier Shelf Expiration Date Model / Serial / Lot Mediport Pwr Mri 8fr [id number] - [id number] Implanted:Qty : 1 on 07/17/2023 by Medhat Angel MD at OR [facility] Right: Chest CR BARD : PERIPHERAL VASCULAR 07/16/2024 [id number] / / [id number] Port Implant W8f Poly Cath - [id number] Implanted:Qty : 1 on 07/17/2023 by Medhat Angel MD at OR [facility] CR BARD : PERIPHERAL VASCULAR [id number] 07/16/2024 [id number] / / [id number] documented as of this encounter Advance Directives [...] Agent [facility] p Communication Trixie Le [facility] Repr esentative (appointed verbally by patient or by statute hierarchy) [email or web address] Care Teams Manufacturing Plant Technician Relationship Specialty Start Date End Date Kayla Reeder DO [address] [place] [address] PCP - General Family Medicine 06/11/23 documented as of this encounter
--- OUTSIDE RECORDS SUMMARY | 2023-09-18 21:27 | External Medical Summary | Summary of Care ---
Author Name Unknown Organization [facility] Address [address] [place] [address] Phone [phone] Care Team Providers Care Computing Machine Operator Name Role Phone VarinderBryanKaylaparth Clarke DO Primary Care Provider +1- [phone] Reason for Visit * Reason Onset Date Comments Appointment 08/05/2023 Encounter Details Date Type Department Care Team ([facility] st Contact Info) Description 08/05/2023 Telephone Hematology/Oncology Treatment, [facility] [address] [place] [address] Mike Chaudhary MD [address] [place] [address] Appointment Allergies No known active allergiesdocumented as of this encounter (statuses as of 08/05/2023) Medications Medication Sig Dispensed Refills Start Date [...] PUFF BEFORE BEDTIME 60 Each 06/11/2023 Active HYDROmorphone HCl 2 MG Oral [...] as of this encounter (statuses as of 08/05/2023) Active Problems Problem Noted Date Diagnosed Date [...] as of this encounter (statuses as of 08/05/2023) Resolved Problems Problem Noted Date Diagnosed Date [...] as of this encounter (statuses as of 08/05/2023) Immunizations Name Administration Dates Next Due DT [...] Telephone Encounter - Shannon Kendall RN - 08/05/2023 9:[address] Chaudhary - wanted to let you know of a change to the patient's scheduled. Your last dispo note: Check-out Note Ok for C2D1 chemo today with the same dose level of DA-EPOCH-R Need bag change Q 48 hrs RTC on Thursday and Thursday this week for IVF RTC on Thursday for CTX RTC on Thursday for G-CSF shot CBC/Diff, CMP, LDH, and uric acid twice weekly PET-CT in 2 weeks RTC with AP weekly for toxicity visit Need to be seen by Neena prior to each chemo cycle Because the patient needs day 1 and day 5 IT methotrexate we needed to shift things around and I want you to be aware of where the patient will be and when. Farhad will be getting labs done on 08/13 at 0900 and then seeing you at 1000 where you will provider direction on his treatment - I will release his bag during that appointment to go to [place] on 08/16. On 08/16 the patient will present to [place] at 0715 for labs with treatment/IVF to follow and then IT methotrexate at 1400. On 08/18 the patient will present back to the clinic here in [place] for his bag change/IVF. On 08/20 the patient will present back to [place] at 0900 for labs and then treatment/IVF to follow and then IT methotrexate at 1400. documented in this encounter Plan of Treatment Upcoming Encounters Date Type Department Care Team (Late st Contact Info) Description 08/06/2023 9:30 AM EDT Office Visit Hematology/Oncology, [address] [address] Lakeshia Stone CRNP [address] [place] [address] 08/10/2023 9:20 AM EDT Laboratory Laboratory [facility] [place] [address] [place] [phone] [facility] [address] [place] [address] 08/13/2023 11:45 AM EDT Appointment Radiology, [address] [address] 08/14/2023 9:00 AM EDT Laboratory Laboratory, [address] [phone] [facility], Lab [address] [place] [address] 08/14/2023 10:00 AM EDT Telemedicine Hematology/Oncology, [address] [address] Mike Chaudhary MD [address] [place] [address] Cart, Telemed [facility] Hem Onc Clinic [address] [place] [address] [place] [address] 08/14/2023 10:30 AM EDT Office Visit Palliative Medicine, [address] 5th [place] [address] Gabriella Florian CRNP [address] [place] [address] 08/17/2023 7:15 AM EDT Nurse Only Hematology Oncology [facility], [address] [address] [place], Nurse Lab Hem/Onc [address] [place] [address] 08/17/2023 8:00 AM EDT Hem/Onc Treatment Hematology Oncology [address] [address] [place], Chair 20 Hem/Onc [address] [place] [address] 08/17/2023 2:00 PM EDT Appointment Radiology, [address] [phone] 08/19/2023 11:00 AM EDT Hem/Onc Treatment Hematology/Oncology Treatment, [address] [address] [facility], Chair4 Hem Onc [address] [place] [address] 08/21/2023 9:00 AM EDT Nurse Only Hematology Oncology [address] [address] [place], Nurse Lab Hem/Onc [address] [place] [address] 08/21/2023 10:00 AM EDT Hem/Onc Treatment Hematology Oncology [address] [address] [place], Chair 18 Hem/Onc [address] [place] [address] 08/21/2023 2:00 PM EDT Appointment Radiology, [place] [address] [place] [address] 09/07/2023 2:00 PM EDT Appointment Radiology, [place] [address] [place] [address] 09/11/2023 2:00 PM EDT Appointment Radiology, [place] [address] [place] [address] 09/25/2023 2:40 PM EDT Office Visit Rheumatology [place] [address] [facility] [place] [address] Oliver Zhang MD [facility] Rank By Search [facility] [place] [address] 02/19/2024 12:00 PM EST Office Visit Family Practice [address], [place] [address] [place] [address] Kayla Reeder DO [address] [place] [address] Health Maintenance Due Date Last Done Comments COVID-19 Vaccine (#1) 1993 Influenza Vaccine (FLU shot) (Season Ended) 2023 11/17/2016, 11/17/2016, 11/30/2015, Additional history exists Depression Screening 07/07/2024 07/08/2023, 06/11/19 24 Albumin/Creatinine Ratio Discontinued 08/02/2021 documented as of this encounter Medical Devices Implanted Type Area Lumber Carrier Operator Device Identifier Shelf Expiration Date Model / Serial / Lot Mediport Pwr Mri 8fr [id number] - [id number] Implanted:Qty : 1 on 07/17/2023 by Medhat Angel MD at [facility] Right: Chest CR BARD : PERIPHERAL VASCULAR 07/16/2024 [id number] / / [id number] Port Implant W8f Poly Cath - [id number] Implanted:Qty : 1 on 07/17/2023 by Medhat Angel MD at OR [facility] BARD : PERIPHERAL VASCULAR [id number] 07/16/2024 [id number] / / [id number] documented as of this encounter Advance Directives [...] Agents on File Name Relationship Healthcare Agent [facility] p Communication Trixie Le [facility] Repr esentative (appointed verbally by patient or by statute hierarchy) [email or web address] Care Teams Computing Machine Operator Relationship Specialty Start Date End Date Kayla Reeder DO [address] [facility] [place] [address] PCP - General Family Medicine 06/11/23 documented as of this encounter
--- OUTSIDE RECORDS SUMMARY | 2023-09-18 21:27 | External Medical Summary | Summary of Care ---
Author Name Unknown Organization [facility] Address [address] [place] [address] Phone [phone] Care Team Providers Care Clinical Instructor Name Role Phone Kayla Reeder DO Primary Care Provider +1- [phone] Encounter Details Date Type Department Care Team (Late st Contact Info) Description 08/03/2023 Telephone Family Practice [facility] [place] [address] [place] [address] Calin Galloway PA-C [address] [place] [address] Allergies No known active allergiesdocumented as of this encounter (statuses as of 08/03/2023) Medications Medication Sig Dispensed Refills Start Date [...] as of this encounter (statuses as of 08/03/2023) Active Problems Problem Noted Date Diagnosed Date [...] as of this encounter (statuses as of 08/03/2023) Resolved Problems Problem Noted Date Diagnosed Date [...] as of this encounter (statuses as of 08/03/2023) Immunizations Name Administration Dates Next Due DT [...] have money to get more. Sometimes true Sex and Gender Information Value Date Recorded [...] encounter Miscellaneous Notes * Telephone Encounter - Calin Galloway PA-C - 08/03/2023 3:[address] Reeder, appears you saw this patient most recently. Do you have anything to add here? documented in this encounter Plan of Treatment Upcoming Encounters Date Type Department Care Team (Late st Contact Info) Description 08/06/2023 8:20 AM EDT Laboratory Laboratory, [address] [place] [address] [facility], Lab [address] [place] [address] 08/06/2023 9:30 AM EDT Office Visit Hematology/Oncology, [address] [address] Lakeshia Stone CRNP [address] [place] [address] 08/10/2023 9:20 AM EDT Laboratory Laboratory [address], [place] [address] [place] [phone] [place], Lab [facility] [address] [facility] [address] 08/13/2023 11:45 AM EDT Appointment Radiology, [address] [address] 08/14/2023 9:00 AM EDT Laboratory Laboratory, [address] [address] [facility], Lab [address] [place] [address] 08/14/2023 10:00 AM EDT Telemedicine Hematology/Oncology, [address] [address] Mike Chaudhary MD [address] [place] [address] Herve Hurtadoed [facility] Hem Onc Clinic [address] [place] [address] 08/14/2023 10:30 AM EDT Office Visit Palliative Medicine, [address] 5th [place] [address] Gabriella Florian CRNP [address] [place] [address] 08/17/2023 7:15 AM EDT Nurse Only Hematology Oncology [facility] [address] [address] [place], Nurse Lab Hem/Onc [address] [place] [address] 08/17/2023 8:00 AM EDT Hem/Onc Treatment Hematology Oncology [facility] [address] [address] [place], Chair 20 Hem/Onc [address] [place] [phone] 08/17/2023 2:00 PM EDT Appointment Radiology, [address] [phone] 08/19/2023 11:00 AM EDT Nurse Only Hematology/Oncology Treatment, [address] [address] [facility], Chair9 Hem Onc [address] [place] [address] 08/21/2023 9:00 AM EDT Nurse Only Hematology Oncology [facility] [address] [address] [place], Nurse Lab Hem/Onc [address] [place] [address] 08/21/2023 10:00 AM EDT Hem/Onc Treatment Hematology Oncology [facility] [address] [address] [place], Chair 18 Hem/Onc [address] [place] [phone] 08/21/2023 2:00 PM EDT Appointment Radiology, [address] [address] 09/07/2023 2:00 PM EDT Appointment Radiology, [address] [address] 09/11/2023 2:00 PM EDT Appointment Radiology, [address] [address] 09/25/2023 2:40 PM EDT Office Visit Rheumatology [place] [address] [facility] [place] [address] Oliver Zhang MD [facility] [place] [address] 02/19/2024 12:00 PM EST Office Visit Family Practice [address] [place] [address] [place] [address] Kayla Reeder DO [address] [place] [address] Health Maintenance Due Date Last Done Comments COVID-19 Vaccine (#1) 1993 Influenza Vaccine (FLU shot) (Season Ended) 2023 11/17/2016, 11/17/2016, 11/30/2015, Additional history exists Depression Screening 07/07/2024 07/08/2023, 06/11/19 24 Albumin/Creatinine Ratio Discontinued 08/02/2021 documented as of this encounter Medical Devices Implanted Type Area Appraiser Art Device Identifier Shelf Expiration Date Model / Serial / Lot Mediport Pwr Mri 8fr [id number] - [id number] Implanted:Qty : 1 on 07/17/2023 by Medhat Angel MD at OR [facility] Right: Chest CR BARD : PERIPHERAL VASCULAR 07/16/2024 [id number] / / [id number] Port Implant W8f Poly Cath - [id number] Implanted:Qty : 1 on 07/17/2023 by Medhat Angel MD at OR [facility] CR BARD : PERIPHERAL VASCULAR [id number] 07/16/2024 [id number] / / [id number] documented as of this encounter Advance Directives [...] Agents on File Name Relationship Healthcare [facility] Communication Trixie Le [facility] Repr esentative (appointed verbally by patient or by statute hierarchy) [email or web address] Care Teams Clinical Instructor Relationship Specialty Start Date End Date Kayla Reeder DO [address] [facility] [place] [address] PCP - General Family Medicine 06/11/23 documented as of this encounter
--- OUTSIDE RECORDS SUMMARY | 2023-09-18 21:27 | External Medical Summary | Summary of Care ---
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)*; Chemotherapy induced nausea and vomiting; Hypokalemia; Pancytopenia due to chemotherapy (HCC); Encounter to discuss test results Allergies No [...] Sign Reading Time Taken Comments Blood Pressure 112/74 08/06/2023 9:28 AM EDT Pulse 83 08/06/2023 9:28 AM EDT Temperature 35.4 C (95.7 F) 08/06/2023 9:28 AM ED T Respiratory Rate 18 08/06/2023 9:28 AM EDT Oxygen Saturation 98% 08/06/2023 9:28 AM EDT Inhaled Oxygen Concentration - - Weight 114.7 kg (252 lb 14.4 oz) 08/06/2023 9:28 AM EDT Height - - Body Mass Index 35.27 07/22/2023 9:20 AM EDT documented in this [...] Progress Notes * Lakeshia Stone CRNP - 08/06/2023 8:57 AM EDT Hematology/Oncology Outpatient Clinic note [facility] Hematology/Oncology, [address] [address] Name: Farhad Franco Date: 08/06/2023 CHIEF COMPLAINT: Farhad Franco is a 32 year old male patient of Dr. Mike Chaudhary here today for f/u visit today. From Patient chart confirmed with patient. From Dr. Mike Chaudhary note 07/27/2023. 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 Also, patient with remotehistory of immunosuppressive meds. NEGATIVE HIV. High risk (retroperitoneal abdominal mass, > 7cm, High LDH). 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 Ki-67 = 80-90%. Flow cytometry: VJ21-aejklphy B cell population expressing kappa light chains. FISH: t(8:14). 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 H/O seizures, last was in high school, has been on Depakote and toapmax for years Cognitive, and learning disabilities Gout HTN Former smoker, quit 2 years ago Treatment rendered: CALGB 1002 Pre-phase: Cyclophosphamide 200 mg/m2 IV days 1-5 (06/26/23-06/30/23) Prednisone 60 mg/m2 PO days 1-7 IT MTX 12 mg (07/02/23, 07/22/23) Current treatment: [email or web address] Risk-adapted DA-EPOCH-R Q 21 days, with G-CSF [...] nodes (HCC) 06/26/2023 - 07/09/2023 Chemotherapy CALGB 27876 Pre-Phase ONLY (1 Cycle/14 Days) [id number] 07/01/2023 - 07/01/2023 Chemotherapy OP CHOP-R every 21 days (Lymphoma) [id number] 07/02/2023 - 07/09/2023 Chemotherapy IP DA-EPOCH every 21 days (Lymphoma) [id number] 07/02/2023 - Supportive Therapy SCP - INTRATHECAL CHEMOTHERAPY (HEMATOLOGY) [id number] Plan Provider: Yaz Molina MD Treatment goal: Supportive Line of treatment: [No plan line of treatment] 07/24/2023 - Chemotherapy OP DA-EPOCH-R every 21 days (Clinic Administration 48hr EPOCH infusion) [id number] 07/27/2023 - 07/27/2023 Chemotherapy Outpatient DA R-EPOCH Home Health Administration (48hr EPOCH infusion) [id number] ECOG: Performance Status 1 = 80-90% Symptoms but nearly ambulatory History of present illness (at time of my initial evaluation on 07/27/2023 ): Farhad Franco is a 32 year old male , presented to my office today accompanied by his mother to establish care with outpatient shredding specialist for evaluation, treatment of his newly diagnosed Burkittcell lymphoma. Patient lives 1 hour away from [facility]. He lives with his 4-year-old son. Patient is . He is on disability. Patient was admitted to [facility], and then transferred to [facility] because of Burkitt's lymphoma with hospital courses as below HOSPITAL COURSE (focused): - [facility] 06/20/2023 - 07/07/2023 (17 days): "Farhad Franco is 32 year old male with a past medical history significant for cerebral vasculitis (primary cerebral angiitis following Rheumatology in [place]) complicated by stroke at the age of7, migraine with aura, nephrolithiasis, petite mal seizures presented to [facility] with complaint of abdominal pain. Transferred from [facility] ER to [facility] to assess for IR biopsy in the setting of rapidly enlarging retroperitoneal mass on CT imaging. As per mother, he was on number of medications for his vasculitis like CellCept, Cytoxan, methotrexate from 1997 through 2014. 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 His uric acid was elevated s/p [...] 06/25/23, lumbar puncture 07/02/23" HOSPITAL COURSE (focused) [facility]- 07/12/2023 - 07/14/2023 (2 days): 32 yo male presents to the [facility] ED c/o headache. Found to be pancytopenic on admission, not requiring transfusion. MRI done which was negative for acute change or metastasis. Headache resolved throughcourse of admission. Cell lines remained stable during admission, abx ppx was changed to levaquin. Oncology was consulted, recommended no additional change on management. Was discharged in stable condition on 07/13 with plan for close f/u with oncology OP. HISTORY OF PRESENT ILLNESS: Farhad Franco is a 32 year old male with a history as outlined above. Currently here for f/u visit today, accompanied by his father and itgp-qvzp-bmy son. His main concerns today are that he is tired and is experiencing heartburn every time he eats. Reports that he has not been sleeping enough at night because his room is the only one with so he shares it with his young son during this heat- is hopeful that once the heat passes he'll get more sleep and has also started taking naps duringthe day while family can watch his son. [...] states that he has had no other symptoms. Denies fevers, chills, night sweats, headaches, dizziness (sometimes lightheaded from heat), vision changes, new arthralgias or myalgias, rash, pruritus, SOB/MAHAN, chest pain or tightness, palpitations, lower extremity swelling, signs ofincreased bruising or bleeding, abdominal pain, nausea, vomiting, diarrhea, constipation, hematuria, [...] performed by Laurence Dent MD at [facility] EGD, FLEXIBLE, DIAGNOSTIC 02/05/2022 normal bx / ESOPHAGOGASTRODUODENOSCOPY (EGD), FLEXIBLE, TRANSORAL, DIAGNOSTIC performed by Laurence Dent MD at [facility] INFORMATION Arteriograms. INSER TUNN ACC DEV;5 YRS/OLDER Right 07/17/2023 INSERT TUNNELED CENTRAL VENOUS ACCESS WITH SUBQ PORT performed by Medhat Angel MD at OR [facility] IR BIOPSY 06/22/2023 CA ANESTH,OPEN HEAD SURGERY Social History Socioeconomic History [...] Stability Do you currently live in a half-way or have no steady place to sleep [...] other nostril. 2 Each 3 Magic Swizzle (Avxvrnxjx-Nvljlzjv-Pqvewn) oral solution Swish and spit 15 mL [...] mouth in the morning. 60 Tablet 1 Potassium Chloride [facility] 10 MEQ Oral Tablet Extended Release Take 2 Tablets by mouth in the morning and 2 Tablets before bedtime. Do all this for 14 days. 56 Tablet 0 Lidocaine-Prilocaine 2.5-2.5 % External Cream (Emla) Apply [...] HPI - otherwise negative OBJECTIVE: Filed Vitals: 08/06/23 0928 BP: 112/74 Pulse: 83 Resp: 18 Temp: 35.4 C (95.7 F) TempSrc: Tympanic SpO2: 98% Weight: 114.7 kg (252 lb 14.4 oz) Wt Readings from Last 5 Encounters: 08/06/23 114.7 kg (252 lb 14.4 oz) 07/31/23 115 kg (253 lb 8 oz) 07/29/23 115.7 kg (255 lb 1.6 oz) 07/27/23 114.6 kg (252 lb 10.4 oz) 07/27/23 114.6 kg (252 lb 11.2 oz) PHYSICAL EXAM: ECOG: Performance Status 1 [...] orders placed or performed in visit on 08/06/23 COMPREHENSIVE METABOLIC PANEL Result Value Ref Range BUN 24 (H) 6 - 20 mg/dL Creatinine 0.9 0.6 - 1.2 mg/dL Estimated Glomerular Filtration Rate >90 >=60 mL/min Sodium 141 135 - 146 mmol/L Potassium 3.2 (L) 3.5 - 5.1 mmol/L Chloride 102 98 - 107 mmol/L CO2 26 22 - 32 mmol/L Anion Gap 13 7 - 15 mmol/L Glucose 97 70 - 120 mg/dL Albumin 4.0 3.8 - 5.0 g/dL AST <10 (L) 10 - 50 U/L Alkaline Phosphatase 59 35 - 130 U/L Bilirubin, Total 0.4 <=1.2 mg/dL Calcium 8.9 8.4 - 10.2 mg/dL Protein 5.9 (L) 6.0 - 8.3 g/dL ALT 35 10 - 50 U/L CBC Result Value Ref Range WBC 4.36 4.00 - 10.80 K/uL RBC 3.24 4.50 - 5.25 M/uL HGB 10.0 (L) 14.0 - 16.8 g/dL HCT 30.0 (L) 40.0 - 48.4 % MCV 92.6 82.0 - 99.5 fL MCH 30.9 27.0 - 34.0 pg MCHC 33.3 32.0 - 36.0 g/dL RDW 17.5 11.5 - 15.5 % PLT 64 (L) 140 - 400 K/uL MPV 10.9 6.6 - 11.1 fL nRBCs 0 <=0 /100 WBCs IMAGING: FLUORO GUIDED CHEMO ADMIN INTO FEED MILL TENDER Result Date: 07/22/2023 IMPRESSION Successful fluoroscopy guided lumbar puncture and intrathecal chemotherapy administration without immediate complication. IR INTERVENTIONAL RADIOLOGY PROCEDURE IN OR Result Date: 07/17/2023 IMPRESSION: Successful placement of a chest power injectable medical port. MRI BRAIN W WO CONTRAST Result Date: 07/13/2023 IMPRESSION: No acute intracranial abnormality nor suspicious lesion. Chronic left CEMENTING MACHINE OPERATOR territory infarct. CTA HEAD/CTA NECK Result Date: [...] nodes Chemotherapy-induced pancytopenia Nausea and vomiting Hypokalemia Encounter to discuss test results Reviewed results of CBC/diff and CMP with the patient and his dad ANC 3.33 Hgb 11.1 --> 10.1 --> 10.0 PLT 205 --> 170 --> 64 Cisco Consultant 0.9 GFR >90 K 3.9 --> 3.7 --> 3.3 --> 3.1 --> 3.2 AST <10 ALT 35 Recently completed Cycle 2 of DA-EPOCH-R on 08/03/2023 with Cycle 3 Day 1 scheduled 08/17/2023 Labs twice weekly: CBC/diff, CMP, Uric Acid and LDH UA to be processed on treatment Day 1 Completed Cycle 1 da-R-EPOCH 07/02/2023 - 07/06/2023, pegfilgrastim 6 mg subcutaneously given on 07/09/[address] scheduled 08/12/2023 Continue Zofran for PRN nausea and vomiting Remain alert and contact the clinic with any new fevers, headaches, vision changes or signs of increased bruising or bleeding Use Emla cream on port 1 hour prior to accessing Continue taking supportive medications as prescribed Allopurinol, Fluconazole, Bactrim and Acyclovir Levaquin for when ANC < 500 Continue Potassium Chloride 20 mEq BID for hypokalemia Palliative Medicine following RTC as scheduled with Dr. Chaudhary, with CBC/diff, CMP, Uric Acid, UA and LDH NIK [facility]ille documented in this encounter Nursing Notes * Vida Lopez, MED ASSIST - 08/06/2023 9:30 AM EDT ROOM 1 Chief Complaint Patient presents with Follow Up Filed Vitals: 08/06/23 0928 BP: 112/74 Pulse: 83 Resp: 18 Temp: 35.4 C (95.7 F) TempSrc: Tympanic SpO2: 98% Weight: 114.7 kg (252 lb 14.4 oz) Patient was instructed to not get up [...] Description 08/10/2023 9:20 AM EDT Laboratory Laboratory [facility] [address] [facility] [phone] [facility] [facility] [address] [facility] [address] 08/12/2023 10:45 AM EDT Imaging Radiology, [place] [address] [place] [address] 08/14/2023 9:00 AM EDT Laboratory Laboratory, [address] [phone] [facility], Lab [address] [place] [address] 08/14/2023 10:00 AM EDT Telemedicine Hematology/Oncology, [address] [address] Mike Chaudhary MD [address] [place], [place] [phone] Cart, Telemed [facility] Hem Onc Clinic [address] [place] [address] 08/14/2023 10:30 AM EDT Office Visit Palliative Medicine, [address] 5th [place] [address] Gabriella Florian, NIK [address] [place] [address] 08/17/2023 7:15 AM EDT Nurse Only Hematology Oncology [facility], [address] [address] [place], Nurse Lab Hem/Onc [address] [place] [address] 08/17/2023 8:00 AM EDT Hem/Onc Treatment Hematology Oncology [address] [address] [place], Chair 20 Hem/Onc [address] [place] [address] 08/17/2023 2:00 PM EDT Appointment Radiology, [address] [address] 08/19/2023 11:00 AM EDT Hem/Onc Treatment Hematology/Oncology Treatment, [facility] [address] [place] [address] [facility], Chair4 Hem Onc [address] [place] [address] 08/21/2023 9:00 AM EDT Nurse Only Hematology Oncology [facility], [address] [address] [place], Nurse Lab Hem/Onc [address] [place] [address] 08/21/2023 10:00 AM EDT Hem/Onc Treatment Hematology Oncology [facility], [address] [address] [place], Chair 18 Hem/Onc [address] [place] [phone] 08/21/2023 2:00 PM EDT Appointment Radiology, [place] [address] [place] [address] 09/07/2023 2:00 PM EDT Appointment Radiology, [place] [address] [place] [address] 09/11/2023 2:00 PM EDT Appointment Radiology, [place] [address] [place] [address] 09/25/2023 2:40 PM EDT Office Visit Rheumatology [place] [address] [facility] [place] [address] Oliver Zhang MD [facility] DataContact [place] [address] 02/19/2024 12:00 PM EST Office Visit Family Practice [facility] [place] [address] [place] [address] Kayla Reeder DO [address] [place] [address] Health Maintenance Due Date Last Done Comments COVID-19 Vaccine (#1) 1993 Influenza Vaccine (FLU shot) (Season Ended) 2023 11/17/2016, 11/17/2016, 11/30/2015, Additional history exists Depression Screening 07/07/2024 07/08/2023, 06/11/19 24 Albumin/Creatinine Ratio Discontinued 08/02/2021 documented as of this encounter Medical Devices Implanted Type Area Assistant Front Desk Manager Device Identifier Shelf Expiration Date Model / Serial / Lot Mediport Pwr Mri 8fr [id number] - [id number] Implanted:Qty : 1 on 07/17/2023 by Medhat Angel MD at OR [facility] Right: Chest CR BARD : PERIPHERAL VASCULAR 07/16/2024 [id number] / / [id number] Port Implant W8f Poly Cath - [id number] Implanted:Qty : 1 on 07/17/2023 by Medhat Angel MD at OR 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 Repr esentative (appointed verbally by patient or by statute hierarchy) [email or web address] Care Teams Manager Surgical Relationship Specialty Start Date End Date Kayla Reeder DO [address] [facility] [place] [address] PCP - General Family Medicine 06/11/23 documented as of this encounter
--- OUTSIDE RECORDS SUMMARY | 2023-09-18 21:27 | External Medical Summary ---
Author Name Unknown Address Unknown Organization K1F:[facility] - [address] Jarek [place] [address] Laboratory Report Ordering Provider Test Date Status MATTI BARAJAS 08/06/2023 08:14:53 Final Observation Date Value Abnormality Reference (Units ) Status WBC, Total 08/06/2023 08:14:53 4.36 4.00-10.8 0 (K/uL) Final RBC 08/06/2023 08:14:53 3.24 4.50-5.25 (M/uL) Final Hemoglobin 08/06/2023 08:14:53 10.0 Below low normal 14 .0-16.8 (g/dL) Final HCT 08/06/2023 08:14:53 30.0 Below low normal 40. 0-48.4 (%) Final MCV 08/06/2023 08:14:53 92.6 82.0-99.5 (fL) Final MCH 08/06/2023 08:14:53 30.9 27.0-34.0 (pg) Final MCHC 08/06/2023 08:14:53 33.3 32.0-36.0 (g/dL) Final RDW 08/06/2023 08:14:53 17.5 11.5-15.5 (%) Final Platelets 08/06/2023 08:14:53 64 Below low normal 140 -400 (K/uL) Final Results rechecked.
null MPV 08/06/2023 08:14:53 10.9 6.6-11.1 ( fL) Final Nucleated erythrocytes/100 leukocytes [Ratio] in Blood by Automated count 08/06/2023 08:14:53 0 <=0 (/100 WBCs) Fi nal Performing Location [facility] [address] [facility] [place] [address]
--- OUTSIDE RECORDS SUMMARY | 2023-09-18 21:27 | External Medical Summary | Summary of Care ---
Author Name Unknown Organization [facility] Address [address] [place] [address] Phone [phone] Care Team Providers Care Performing Arts Technicians Name Role Phone VarinderBryanKaylaparth Clarke DO Primary Care Provider +1- [phone] Reason for Visit * Reason Onset Date Comments Appointment 08/05/2023 Encounter Details Date Type Department Care Team ([facility] st Contact Info) Description 08/05/2023 Telephone Hematology/Oncology Treatment, [facility] [address] [place] [address] Mike Chaudhary MD [address] [place] [address] Appointment Allergies No known active [...] bag during that appointment to go to Only on 08/16. On 08/16 the patient will present to Only at 0715 for labs with treatment/IVF to follow and then IT methotrexate at 1400. On 08/18 the patient will present back to the clinic here in [place] for his bag change/IVF. On 08/20 the patient will present back to Only at 0900 for labs and then treatment/IVF to follow and then IT methotrexate at 1400. documented in this encounter Plan of Treatment Upcoming Encounters Date Type Department Care Team (Late st Contact Info) Description 08/06/2023 9:30 AM EDT Office Visit Hematology/Oncology, [address] [address] Lakeshia Stone CRNP [address] [place] [address] 08/10/2023 9:20 AM EDT Laboratory Laboratory [facility] [place] [address] [place] [phone] [facility] [address] [facility] [place] [address] 08/13/2023 11:45 AM EDT Appointment Radiology, [address] [address] 08/14/2023 9:00 AM EDT Laboratory Laboratory, [address] [phone] [facility], Lab [address] [place] [address] 08/14/2023 10:00 AM EDT Telemedicine Hematology/Oncology, [address] [address] Mike Chaudhary MD [address] [place] [address] Cart, Telemed [facility] Hem Onc Clinic [address] [place] [address] [place] [address] 08/14/2023 10:30 AM EDT Office Visit Palliative Medicine, [address]th [place] [address] Gabriella Florian CRNP [address] [place] [address] 08/17/2023 7:15 AM EDT Nurse Only Hematology Oncology [facility], [address] [address] [place], Nurse Lab Hem/Onc [address] [place] [address] 08/17/2023 8:00 AM EDT Hem/Onc Treatment Hematology Oncology [address] [address] [place], Chair 20 Hem/Onc [address] [place] [address] 08/17/2023 2:00 PM EDT Appointment Radiology, [address] [phone] 08/19/2023 11:00 AM EDT Hem/Onc Treatment Hematology/Oncology Treatment, [address] [address] [facility], Chair4 Hem Onc [address] [place] [address] 08/21/2023 9:00 AM EDT Nurse Only Hematology Oncology [address] [address] [place], Nurse Lab Hem/Onc [address] [place] [address] 08/21/2023 10:00 AM EDT Hem/Onc Treatment Hematology Oncology [address] [address] [place], Chair 18 Hem/Onc [address] [place] [address] 08/21/2023 2:00 PM EDT Appointment Radiology, Only [address] [place] [address] 09/07/2023 2:00 PM EDT Appointment Radiology, Only [address] [place] [address] 09/11/2023 2:00 PM EDT Appointment Radiology, Only [address] [place] [address] 09/25/2023 2:40 PM EDT Office Visit Rheumatology [place] [phone] [facility] [place] [address] Oliver Zhang MD [facility] [place] [address] 02/19/2024 12:00 PM EST Office Visit Family Practice [address], [place] [address] [place] [address] Kayla Reeder DO [address] [place] [address] Health Maintenance Due Date Last Done Comments COVID-19 Vaccine (#1) 1993 Influenza Vaccine (FLU shot) (Season Ended) 2023 11/17/2016, 11/17/2016, 11/30/2015, Additional history exists Depression Screening 07/07/2024 07/08/2023, 06/11/19 24 Albumin/Creatinine Ratio Discontinued 08/02/2021 documented as of this encounter Medical Devices Implanted Type Area Globe Mounter Device Identifier Shelf Expiration Date Model / Serial / Lot Mediport Pwr Mri 8fr [id number] - [id number] Implanted:Qty : 1 on 07/17/2023 by Medhat Angel MD at [facility] Right: Chest CR BARD : PERIPHERAL VASCULAR 07/16/2024 [id number] / / [id number] Port Implant W8f Poly Cath - [id number] Implanted:Qty : 1 on 07/17/2023 by Medhat Angel MD at OR [facility] BARD : PERIPHERAL VASCULAR [id number] 07/16/2024 [id number] / / [id number] documented as of this encounter Advance Directives [...] File Name Relationship Healthcare Agent [facility] p Communication Trixie Le [facility] Repr esentative (appointed verbally by patient or by statute hierarchy) [email or web address] Care Teams Performing Arts Technicians Relationship Specialty Start Date End Date Kayla Reeder DO [address] [facility] [place] [address] PCP - General Family Medicine 06/11/23 documented as of this encounter
--- OUTSIDE RECORDS SUMMARY | 2023-09-18 21:27 | External Medical Summary | Summary of Care ---
Author Name Unknown Organization [facility] Address [address] [place] [address] Phone [phone] Care Team Providers Care Customer Support Associate Name Role Phone Kayla Reeder DO Primary Care Provider +1- [phone] Reason for Visit * Reason Onset Date Comments Light Cleaner Documentation 08/06/2023 Encounter Details Date Type Department Care Team (Late st Contact Info) Description 08/06/2023 Telephone Hematology Oncology, [place] [address] [facility] 101 [place] [address] Helder Reich LSW [address] [place] [address] Light Cleaner Documentation Allergies No known active allergiesdocumented as of [...] encounter Miscellaneous Notes * Telephone Encounter - Helder Reich LSW - 08/06/2023 3:29 PM EDT SW left a message for Mr. Franco encouraging him to call back at his earliest convenience. SW left his name, number, and office hours for the remainder of the day. Services provided include: Care Coordination Follow-up Calls and Visits Maggie Castro, CAR UNLOADER, ENGINE LATHE OPERATOR Public Health Clinical Nurse Specialist Sarah Hematology/Oncology [place] Office: [phone] [place] Office: [phone] E-mail: [email or web address] documented in this encounter Plan of Treatment Upcoming Encounters Date Type Department Care Team (Late st Contact Info) Description 08/10/2023 9:20 AM EDT Laboratory Laboratory [address] [place] [place] [address] [place] [address] [place] [address] 08/12/2023 10:45 AM EDT Imaging Radiology, [place] [address] [place], [place] [address] 08/14/2023 9:00 AM EDT Laboratory Laboratory, [address] [address] [facility], Lab [address] [place] [address] 08/14/2023 10:00 AM EDT Telemedicine Hematology/Oncology, [address] [address] Mike Chaudhary MD [address] [place] [address] Cart, Telemed [facility] Hem Onc Clinic [address] [place] [address] 08/14/2023 10:30 AM EDT Office Visit Palliative Medicine, [address] 5th [place] [address] Gabriella Florian CRNP 400 [place] [address] 08/17/2023 7:15 AM EDT Nurse Only Hematology Oncology [address] [address] [place], Nurse Lab Hem/Onc [address] [place] [address] 08/17/2023 8:00 AM EDT Hem/Onc Treatment Hematology Oncology [address] [address] [place], Chair 20 Hem/Onc [address] [place] [address] 08/17/2023 2:00 PM EDT Appointment Radiology, [address] [address] 08/19/2023 11:00 AM EDT Hem/Onc Treatment Hematology/Oncology Treatment, [address] [address] [facility], Chair4 Hem Onc [address] [place] [address] 08/21/2023 9:00 AM EDT Nurse Only Hematology Oncology [facility], [address] [address] [place], Nurse Lab Hem/Onc [address] [place] [address] 08/21/2023 10:00 AM EDT Hem/Onc Treatment Hematology Oncology [facility], [address] [address] [place], Chair 18 Hem/Onc [address] [place] [address] 08/21/2023 2:00 PM EDT Appointment Radiology, [address] [address] 09/07/2023 2:00 PM EDT Appointment Radiology, [address] [address] 09/11/2023 2:00 PM EDT Appointment Radiology, [address] [address] 09/25/2023 2:40 PM EDT Office Visit Rheumatology [facility] [address] [facility] [place], [place] [address] Oliver Zhang MD [address] [facility] [place] [address] 02/19/2024 12:00 PM EST Office Visit Family [facility] [address] [place] [address] Kayla Reeder DO [address] [place] [address] Health Maintenance Due Date Last Done Comments COVID-19 Vaccine (#1) 1993 Influenza Vaccine (FLU shot) (Season Ended) 2023 11/17/2016, 11/17/2016, 11/30/2015, Additional history exists Depression Screening 07/07/2024 07/08/2023, 06/11/19 24 Albumin/Creatinine Ratio Discontinued 08/02/2021 documented as of this encounter Medical Devices Implanted Type Area Data Processing Operator Device Identifier Shelf Expiration Date Model / Serial / Lot Mediport Pwr Mri 8fr [id number] - [id number] Implanted:Qty : 1 on 07/17/2023 by Medhat Angel MD at OR [facility] Right: Chest CR BARD : PERIPHERAL VASCULAR 07/16/2024 [id number] / / [id number] Port Implant W8f Poly Cath - [id number] Implanted:Qty : 1 on 07/17/2023 by Medhat Angel MD at OR [facility] CR BARD : PERIPHERAL VASCULAR [id number] 07/16/2024 [id number] / / [id number] documented as of this encounter Advance Directives [...] Relationship Healthcare Agent Relationshi p Communication Trixie Bashir [facility] Care Repr esentative (appointed verbally by patient or by statute hierarchy) [email or web address] Care Teams Customer Support Associate Relationship Specialty Start Date End Date Kayla Reeder DO [address] [facility] [place] [address] PCP - General Family Medicine 06/11/23 documented as of this encounter
--- OUTSIDE RECORDS SUMMARY | 2023-09-18 21:27 | External Medical Summary | Summary of Care ---
Author Name Unknown Organization [facility] Address [address] [place] [address] Phone [phone] Care Team Providers Care Delivery Rep Name Role Phone Kayla Reeder DO Primary Care Provider +1- [phone] Reason for Visit * Reason Onset Date Comments Other 08/07/2023 Encounter Details Date Type Department Care Team ([facility] st Contact Info) Description 08/07/2023 Telephone Access Center, [place] [address] [facility] *DO NOT REMOVE THIS DEPARTMENT* [place] [address] Services, Scheduling [address] [place] [address] Other Allergies No known active allergiesdocumented as [...] Telephone Encounter - Shannon Kendall RN - 08/07/2023 3:54 PM EDT Left detailed message for the mother with the message below. Will also send a myG. Scheduling - can you please reach out to the patient/his mother and get him scheduled early next week with labs and MARITIME PILOT visit. Labs: cbcd, cmp, uric, LD, mag. * Telephone Encounter - Shannon Kendall RN - 08/07/2023 3:52 PM EDT Mike [...] Thank you * Telephone Encounter - Shannon Kendall RN - 08/07/2023 3:[address] Chaudhary - please advise. It appears the patient has a prescription for Protonix. * Telephone Encounter - Arabella Collier OSA - 08/07/2023 2:59 PM EDT Patients Mother calling to state that yesterday he was very dehydrated and was very loopy and out of it. He did go to the [facility] ER and was given an IV. [...] Description 08/10/2023 9:20 AM EDT Laboratory Laboratory [facility] [place] [address] [facility] [place] [phone] [place], [facility] [address] [facility] [place] [address] 08/12/2023 10:45 AM EDT Imaging Radiology, [address] [place] [address] 08/14/2023 9:00 AM EDT Laboratory Laboratory, [address] [address] [facility], Lab [address] [place] [address] 08/14/2023 10:00 AM EDT Telemedicine Hematology/Oncology, [address] [address] Mike Chaudhary MD [address] [place] [address] Cart, Telemed [facility] Hem Onc Clinic [address] [place] [address] 08/14/2023 10:30 AM EDT Office Visit Palliative Medicine, [address] 5th [place] [address] Gabriella Florian CRNP 400 [place] [address] 08/17/2023 7:15 AM EDT Nurse Only Hematology Oncology [facility], [address] [address] [place], Nurse Lab Hem/Onc [address] [place] [address] 08/17/2023 8:00 AM EDT Hem/Onc Treatment Hematology Oncology [facility], [address] [address] [place], Chair 20 Hem/Onc [address] [place] [address] 08/17/2023 2:00 PM EDT Appointment Radiology, [address] [address] 08/19/2023 11:00 AM EDT Hem/Onc Treatment Hematology/Oncology Treatment, [address] [address] [facility], Chair4 Hem Onc [address] [place] [address] 08/21/2023 9:00 AM EDT Nurse Only Hematology Oncology [facility], [address] [address] [place], Nurse Lab Hem/Onc [address] [place] [address] 08/21/2023 10:00 AM EDT Hem/Onc Treatment Hematology Oncology [facility], [place] [address] [place] [address] [place], Chair 18 Hem/Onc [address] [place] [address] 08/21/2023 2:00 PM EDT Appointment Radiology, [address] [address] 09/07/2023 2:00 PM EDT Appointment Radiology, [address] [address] 09/11/2023 2:00 PM EDT Appointment Radiology, [address] [address] 09/25/2023 2:40 PM EDT Office Visit Rheumatology [place] [address] [place] [id number] Oliver Zhang MD [address] [place] [address] [place] [address] 02/19/2024 12:00 PM EST Office Visit Family Practice [facility] [place] [address] [place] [address] Kayla Reeder DO 3793 [place] [address] Scheduled Orders Name Type Priority Associated Diagnoses [...] this encounter Medical Devices Implanted Type Area Washroom Attendant Device Identifier Shelf Expiration Date Model / Serial / Lot Mediport Pwr Mri 8fr [id number] - [id number] Implanted:Qty : 1 on 07/17/2023 by Medhat Angel MD at OR [facility] Right: Chest CR BARD : PERIPHERAL VASCULAR 07/16/2024 [id number] / / [id number] Port Implant W8f Poly Cath - [id number] Implanted:Qty : 1 on 07/17/2023 by Medhat Angel MD at OR [facility] CR BARD : PERIPHERAL VASCULAR [id number] 07/16/2024 [id number] / / [id number] documented as of this encounter Visit Diagnoses [...] Name Relationship Healthcare Agent [facility] Communication Trixie Le [facility] Repr esentative (appointed verbally by patient or by statute hierarchy) [email or web address] Care Teams Delivery Rep Relationship Specialty Start Date End Date Kayla Reeder DO [address] [facility] [place] [address] PCP - General Family Medicine 06/11/23 documented as of this encounter
--- OUTSIDE RECORDS SUMMARY | 2023-09-18 21:27 | External Medical Summary ---
Author Name Unknown Address Unknown Organization K1F:[facility] - [address] [facility]. Jarek DUKES [address] Laboratory Report Ordering Provider Test Date Status MATTI BARAJAS 08/06/2023 08:14:53 Final Observation Date Value Abnormality Reference (Units ) Status SYNC LEUKOCYTES IN BLOOD BY AUTOMATED COUNT 08/06/2023 08:14:53 4.36 4.00-10.80 (K/uL) Final Segs 08/06/2023 08:14:53 76.5 Above high normal 40.0-75.0 (%) Final Lymphs % 08/06/2023 08:14:53 11.9 Below low normal 18.0-42.0 (%) Final Monos 08/06/2023 08:14:53 1.1 1.0-11.0 (%) Final Eosinophils 08/06/2023 08:14:53 0.0 0.0-6.0 (%) Final Basos 08/06/2023 08:14:53 0.2 0.0-2.0 (%) Final Immature Granulocyte, Percent 08/06/2023 08:14:53 10.3 Above high normal 0.0-2.0 (%) Final Absolute Segs 08/06/2023 08:14:53 3.33 1.80-7.70 (K/uL) Final Lymphs, absolute 08/06/2023 08:14:53 0.52 Below low normal 1.00-4.80 (K/ul) Final Monos, Abs 08/06/2023 08:14:53 0.05 0.00-1.10 (K/uL) Final Eos, Abs 08/06/2023 08:14:53 0.00 0.00-0.70 (K/uL) Final Basos, Abs 08/06/2023 08:14:53 0.01 0.00-0.20 (K/uL) Final Immature Granulocytes, Number 08/06/2023 08:14:53 0.45 Above high normal 0.00-0.20 (K/uL) Final Performing Location [facility] - [facility] [place] [facility] Faby Pizano. Jarek DUKES [id number]
--- OUTSIDE RECORDS SUMMARY | 2023-09-18 21:27 | External Medical Summary | Summary of Care ---
Author Name Unknown Organization [facility] Address [address] [place] [address] Phone [phone] Care Team Providers Care Chassis Inspector Name Role Phone Reeder Kayla Tricia DO Primary Care Provider +1- [phone] Reason for Visit * Reason Comments Outpatient Testing Encounter Details Date Type Department Care Team ([facility] st Contact Info) Description 08/06/2023 8:20 AM EDT Laboratory Laboratory, [facility] 400 [place] [phone] [facility], Lab [address] [place] [address] Burkitt lymphoma of intra-abdominal lymph [...] 08/06/2023 9:30 AM EDT Office Visit Hematology/Oncology, [facility] 400 [facility] [place] [address] Lakeshia Stone CRNP [address] [facility] [place] [address] Arrived 08/10/2023 9:20 AM EDT Laboratory Laboratory [facility] [place] [address] [facility] [place]ST [place] [phone] [place], Lab [facility] [place] [address]76 [facility] [place] [address] 08/13/2023 11:45 AM EDT Appointment Radiology, [facility] [address] [place] [address] 08/14/2023 9:00 AM EDT Laboratory Laboratory, [address] [place] [address] [facility], Lab [address] [place] [address] 08/14/2023 10:00 AM EDT Telemedicine Hematology/Oncology, [address] [address] Mike Chaudhary MD [facility] [place] [address] Cart, Telemed [facility] Hem Onc Clinic [address] [place] [address] 08/14/2023 10:30 AM EDT Office Visit Palliative Medicine, [address] 5th [place] [address] Gabriella Florian CRNP [address] [place] [address] 08/17/2023 7:15 AM EDT Nurse Only Hematology Oncology [address] [address] [place], Nurse Lab Hem/Onc [address] [place] [address] 08/17/2023 8:00 AM EDT Hem/Onc Treatment Hematology Oncology [address] [address] [place], Chair 20 Hem/Onc [address] [place] [address] 08/17/2023 2:00 PM EDT Appointment Radiology, [address] [address] 08/19/2023 11:00 AM EDT Hem/Onc Treatment Hematology/Oncology Treatment, [address] [address] [facility], Chair4 Hem Onc [address] [facility] [place] [address] 08/21/2023 9:00 AM EDT Nurse Only Hematology Oncology [facility], [address] [address] [place], Nurse Lab Hem/Onc [address] [place] [address] 08/21/2023 10:00 AM EDT Hem/Onc Treatment Hematology Oncology [facility], [address] [address] [place], Chair 18 Hem/Onc [address] [place] [address] 08/21/2023 2:00 PM EDT Appointment Radiology, [address] [address] 09/07/2023 2:00 PM EDT Appointment Radiology, [address] [address] 09/11/2023 2:00 PM EDT Appointment Radiology, [address] [address] 09/25/2023 2:40 PM EDT Office Visit Rheumatology [address] [place] [address] Oliver Zhang MD [address] [place] [address] [place] [address] 02/19/2024 12:00 PM EST Office Visit Family Practice [place] [address] [place] [address] Kayla Reeder DO [address] [place] [address] Pending Results Name Type Priority Associated Diagnoses Date /Time CBC WITH WBC DIFFERENTIAL Lab STAT 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) 08/06/2023 8:14 AM EDT COMPREHENSIVE METABOLIC PANEL Lab STAT 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) 08/06/2023 8:14 AM EDT CBC Lab STAT 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) 08/06/2023 8:14 AM EDT DIFFERENTIAL, AUTOMATED Lab STAT 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) 08/06/2023 8:14 AM EDT Health Maintenance Due Date Last Done Comments COVID-19 Vaccine (#1) 1993 Influenza Vaccine (FLU shot) (Season Ended) 2023 11/17/2016, 11/17/2016, 11/30/2015, Additional history exists Depression Screening 07/07/2024 07/08/2023, 06/11/19 24 Albumin/Creatinine Ratio Discontinued 08/02/2021 documented as of this encounter Medical Devices Implanted Type Area Air Compressor Mechanic Device Identifier Shelf Expiration Date Model / Serial / Lot Mediport Pwr Mri 8fr [id number] - [id number] Implanted:Qty : 1 on 07/17/2023 by Medhat Angel MD at OR [facility] Right: Chest CR BARD : PERIPHERAL VASCULAR 07/16/2024 [id number] / / [id number] Port Implant W8f Poly Cath - [id number] Implanted:Qty : 1 on 07/17/2023 by Medhat Angel MD at OR [facility] CR BARD : PERIPHERAL VASCULAR [id number] 07/16/2024 [id number] / / [id number] documented as of this encounter Visit Diagnoses [...] Healthcare Agent Relationshi p Communication Trixie Le [facility] Care Repr esentative (appointed verbally by patient or by statute hierarchy) [email or web address] Care Teams Chassis Inspector Relationship Specialty Start Date End Date Kayla Reeder DO [address] [facility] [place] [address] PCP - General Family Medicine 06/11/23 documented as of this encounter
--- OUTSIDE RECORDS SUMMARY | 2023-09-18 21:27 | External Medical Summary | Summary of Care ---
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 [facility] Role Assembling Inspector Referring Reason: Coordinate Cancer Resources Comments Is patient being transitioned from [facility] to Complex Case Management? No Patient travels frequently for his treatments. Family and patient asking for assistance with gas cards/money or any available assistance. 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 Overview: Follows in [place] q6m History of petit-mal seizures 03/07/2016 Tobacco [...] Description 08/10/2023 9:20 AM EDT Laboratory Laboratory [address] [place] [address] [place] [address] [place] [address] 08/12/2023 10:45 AM EDT Imaging Radiology, [place] [address] [place] [address] 08/14/2023 9:00 AM EDT Laboratory Laboratory, [address] [address] [facility], Lab [address] [place] [address] 08/14/2023 10:00 AM EDT Telemedicine Hematology/Oncology, [address] [address] Mike Chaudhary MD [facility] [place] [address] Cart, Telemed [facility] Hem Onc Clinic [address] [place] [address] 08/14/2023 10:30 AM EDT Office Visit Palliative Medicine, [address] 5th [place] [address] Gabriella Florian CRNP [address] [place] [address] 08/17/2023 7:15 AM EDT Nurse Only Hematology Oncology [facility], [address] [address] [place], Nurse Lab Hem/Onc [address] [place] [address] 08/17/2023 8:00 AM EDT Hem/Onc Treatment Hematology Oncology [facility], [place] [address] [place] [address] [place], Chair 20 Hem/Onc [address] [place] [address] 08/17/2023 2:00 PM EDT Appointment Radiology, [address] [address] 08/19/2023 11:00 AM EDT Hem/Onc Treatment Hematology/Oncology Treatment, [address] [address] [facility], Chair4 Hem Onc [address] [place] [address] 08/21/2023 9:00 AM EDT Nurse Only Hematology Oncology [facility], [address] [address] [place], Nurse Lab Hem/Onc [address] [place] [address] 08/21/2023 10:00 AM EDT Hem/Onc Treatment Hematology Oncology [facility], [address] [address] [place], Chair 18 Hem/Onc [address] [place] [address] 08/21/2023 2:00 PM EDT Appointment Radiology, [address] [address] 09/07/2023 2:00 PM EDT Appointment Radiology, [address] [address] 09/11/2023 2:00 PM EDT Appointment Radiology, [address] [address] 09/25/2023 2:40 PM EDT Office Visit Rheumatology [place] [address] [facility] [address] Oliver Zhang MD [facility] [place] [address] 02/19/2024 12:00 PM EST Office Visit [facility] [address] [place] [address] Kayla Reeder DO [address] [place] [address] Scheduled Referrals Name Type Priority Associated Diagnoses Orde r Schedule POPULATION HEALTH REFERRAL OP Referral Within 3 days (urgent) 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) Ordered: 08/06/2023 Health Maintenance Due Date Last Done Comments COVID-19 Vaccine (#1) 1993 Influenza Vaccine (FLU shot) (Season Ended) 2023 11/17/2016, 11/17/2016, 11/30/2015, Additional history exists Depression Screening 07/07/2024 07/08/2023, 06/11/19 24 Albumin/Creatinine Ratio Discontinued 08/02/2021 documented as of this encounter Medical Devices Implanted Type Area Comfort Station Attendant Device Identifier Shelf Expiration Date Model / Serial / Lot Mediport Pwr Mri 8fr [id number] - [id number] Implanted:Qty : 1 on 07/17/2023 by Medhat Angel MD at OR [facility] Right: Chest CR BARD : PERIPHERAL VASCULAR 07/16/2024 [id number] / / [id number] Port Implant W8f Poly Cath - [id number] Implanted:Qty : 1 on 07/17/2023 by Medhat Angel MD at OR [facility] CR BARD : PERIPHERAL VASCULAR [id number] 07/16/2024 [id number] / / [id number] documented as of this encounter Visit Diagnoses [...] Healthcare Agent Relationshi p Communication Trixie Le [facility] Repr esentative (appointed verbally by patient or by statute hierarchy) [email or web address] Care Teams Mold Hoister Relationship Specialty Start Date End Date Kayla Reeder DO [address] [facility] [place]ST [place] [address] PCP - General Family Medicine 06/11/23 documented as of this encounter
--- OUTSIDE RECORDS SUMMARY | 2023-09-18 21:28 | External Medical Summary | Summary of Care ---
Author Name Unknown Organization [facility] Address [address] [place] [address] Phone [phone] Care Team Providers Care Thermometer Maker Name Role Phone Kayla Reeder DO Primary Care Provider +1- [phone] Encounter Details Date Type Department Care Team (Late st Contact Info) Description 07/31/2023 Telephone Hematology/Oncology, [facility] [address] [place] [address] Mike Chaudhary MD [address] [place] [address] Allergies No known active allergiesdocumented as of this encounter (statuses as of 07/31/2023) Medications Medication Sig Dispensed Refills Start Date [...] as of this encounter (statuses as of 07/31/2023) Active Problems Problem Noted Date Diagnosed Date [...] as of this encounter (statuses as of 07/31/2023) Resolved Problems Problem Noted Date Diagnosed Date [...] as of this encounter (statuses as of 07/31/2023) Immunizations Name Administration Dates Next Due DT [...] Notes * Telephone Encounter - Radha Grimm [facility] - 07/31/2023 12:06 PM EDT DA-EPOCH LAB MONITORING DOCUMENTATION Farhad M Joan [id number] Patient Phone Numbers Communication: Left message requesting pt to obtain lab work on 08/02 Indication/Staging/Diagnosis Code: 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 Chaudhary Treatment: DA-EPOCH Cycle 2 Patient [...] 8 Patient currently scheduled 08/03/23 @ 8:00am ([facility] lab) Radha Grimm Delivery Driver III Hematology Oncology Oral Chemotherapy Clinic Medication Therapy Disease Management [facility] 07/31/2023 12:54 PM documented in this encounter Plan of Treatment Upcoming Encounters Date Type Department Care Team (Late st Contact Info) Description 07/31/2023 1:30 PM EDT Hem/Onc Treatment Hematology/Oncology Treatment, [address] [address] [facility], Chair2 Hem Onc [address] [place], [place] [address] [address] Arrived 08/03/2023 8:00 AM EDT Laboratory Laboratory, [address] [phone] [facility], Lab [address] [place], [place] [address] [address] 08/03/2023 9:00 AM EDT Immunization/Injection Hematology/Oncology Treatment, [address] [address] [facility], Chair8 Hem Onc [address] [place], [place] [address] [address] 08/06/2023 8:20 AM EDT Laboratory Laboratory, [address] [place] [phone] [facility], Lab [address] [place] [address] 08/06/2023 9:30 AM EDT Office Visit Hematology/Oncology, [address] [address] Lakeshia Stone CRNP [address] [place] [address] 08/10/2023 9:20 AM EDT Laboratory Laboratory [facility], [place] [address] [facility] [place] [phone] [place], Lab [facility] [address] [place] [address] 08/13/2023 11:45 AM EDT Appointment Radiology, [address] [address] 08/14/2023 9:00 AM EDT Laboratory Laboratory, [address] [phone] [facility], Lab [address] [place] [address] 08/14/2023 10:00 AM EDT Telemedicine Hematology/Oncology, [address] [address] Mike Chaudhary MD [address] [place] [address] Herve Hurtadoed [facility] Hem Onc Clinic [address] [place] [address] 08/14/2023 10:30 AM EDT Office Visit Palliative Medicine, [address] 5th [place] [address] Aury Silva MD [address] [place] [address] 08/17/2023 7:15 AM EDT Nurse Only Hematology Oncology [facility], [address] [address] [place], Nurse Lab Hem/Onc [address] [place] [address] 08/17/2023 8:00 AM EDT Hem/Onc Treatment Hematology Oncology [address] [address] [place], Chair 20 Hem/Onc [address] [place] [address] 08/17/2023 2:00 PM EDT Appointment Radiology, [address] [phone] 08/19/2023 11:00 AM EDT Nurse Only Hematology/Oncology Treatment, [address] [address] [facility], Chair9 Hem Onc [address] [place] [address] 08/21/2023 9:00 AM EDT Nurse Only Hematology Oncology [address] [address] [place], Nurse Lab Hem/Onc [address] [place] [address] 08/21/2023 10:00 AM EDT Hem/Onc Treatment Hematology Oncology [address] [address] [place], Chair 18 Hem/Onc [address] [place] [id number] 08/21/2023 2:00 PM EDT Appointment Radiology, [address] [address] 08/26/2023 1:00 PM EDT Office Visit Sleep Disorders, [facility] [address] [place] [address] Dave Daigle PA-C [address] [place], [place] [phone] 09/07/2023 2:00 PM EDT Appointment Radiology, [address] [phone] 09/11/2023 2:00 PM EDT Appointment Radiology, [address] [address] 09/25/2023 2:40 PM EDT Office Visit Rheumatology [place] [address] [place] [address] Oliver Zhang MD [facility] [place] [address] 02/19/2024 12:00 PM EST Office Visit Family Practice [facility] [address] [place] [address] Kayla Reeder DO [address] [place] [address] Health Maintenance Due Date Last Done Comments COVID-19 Vaccine (#1) 1993 Influenza Vaccine (FLU shot) (Season Ended) 2023 11/17/2016, 11/17/2016, 11/30/2015, Additional history exists Depression Screening 07/07/2024 07/08/2023, 06/11/19 24 Albumin/Creatinine Ratio Discontinued 08/02/2021 documented as of this encounter Medical Devices Implanted Type Area Principal Investigator Device Identifier Shelf Expiration Date Model / Serial / Lot Mediport Pwr Mri 8fr [id number] - [id number] Implanted:Qty : 1 on 07/17/2023 by Medhat Angel MD at OR [facility] Right: Chest CR BARD : PERIPHERAL VASCULAR 07/16/2024 [id number] / / [id number] Port Implant W8f Poly Cath - [id number] Implanted:Qty : 1 on 07/17/2023 by Medhat Angel MD at OR [facility] CR BARD : PERIPHERAL VASCULAR [id number] 07/16/2024 [id number] / / [id number] documented as of this encounter Advance Directives [...] [facility] Access Hospitalhi p Communication Trixie Le [facility] Repr esentative (appointed verbally by patient or by statute hierarchy) [email or web address] Care Teams Thermometer Maker Relationship Specialty Start Date End Date Kayla Reeder DO [address] [facility] [place] [address] PCP - General Family Medicine 06/11/23 documented as of this encounter
--- OUTSIDE RECORDS SUMMARY | 2023-09-18 21:28 | External Medical Summary | Summary of Care ---
Author Name Unknown Organization [facility] Address [address] [place] [address] Phone [phone] Care Team Providers Care Sales Representative [employer] Name Role Phone Kayla Reeder DO Primary Care Provider +1- [phone] Encounter Details Date Type Department Care Team (Late st Contact Info) Description 07/31/2023 Telephone Family Practice [facility] [place] [address] [place] [address] Calin Galloway PA-C [address] [place] [address] Allergies No known active allergiesdocumented [...] encounter Miscellaneous Notes * Telephone Encounter - Jeannette Selby LPN - 07/31/2023 1:59 PM EDT Spoke to Calin, hospital follow up has been completed. Will wait and address any pt concerns as they come up * Telephone Encounter - Calin Galloway PA-C - 07/31/2023 1:47 PM EDT Reviewed. Is he to be scheduled for sooner visit with us? documented in this encounter Plan of Treatment Upcoming Encounters Date Type Department Care Team (Late st Contact Info) Description 08/03/2023 8:00 AM EDT Laboratory Laboratory, [address] [address] [facility], Lab [address] [place] [address] 08/03/2023 9:00 AM EDT Immunization/Injection Hematology/Oncology Treatment, [address] [address] [facility], Chair8 Hem Onc [address] [place] [address] [place] [address] 08/06/2023 8:20 AM EDT Laboratory Laboratory, [address] [address] [facility], Lab [address] [place] [address] 08/06/2023 9:30 AM EDT Office Visit Hematology/Oncology, [address] [address] Lakeshia Stone CRNP [address] [place] [address] [place] [address] 08/10/2023 9:20 AM EDT Laboratory Laboratory [facility], [place] [address] [facility] [place]ST [place] [phone] [place], Lab [facility] 5738 [facility] [place] [address] 08/13/2023 11:45 AM EDT Appointment Radiology, [address] [address] 08/14/2023 9:00 AM EDT Laboratory Laboratory, [address] [address] [facility], Lab [address] [place] [address] 08/14/2023 10:00 AM EDT Telemedicine Hematology/Oncology, [address] [address] Mike Chaudhary MD [facility] [place] [address] Cart, Telemed [facility] Hem Onc Clinic [address] [place] [address] 08/14/2023 10:30 AM EDT Office Visit Palliative Medicine, [address] 5th [place] [address] Aury Silva MD [address] [place] [address] 08/17/2023 7:15 AM EDT Nurse Only Hematology Oncology [address] [address] [place], Nurse Lab Hem/Onc [address] [place] [address] 08/17/2023 8:00 AM EDT Hem/Onc Treatment Hematology Oncology [place] [address] [place] [address] [place], Chair 20 Hem/Onc [address] [place] [address] 08/17/2023 2:00 PM EDT Appointment Radiology, [address] [address] 08/19/2023 11:00 AM EDT Nurse Only Hematology/Oncology Treatment, [address] [address] [facility], Chair9 Hem Onc [address] [place] [address] 08/21/2023 9:00 AM EDT Nurse Only Hematology Oncology [facility] [place], [address] [address] [place], Nurse Lab Hem/Onc [address] [place] [address] 08/21/2023 10:00 AM EDT Hem/Onc Treatment Hematology Oncology [facility] [place], [address] [address] [place], Chair 18 Hem/Onc [address] [place] [address] 08/21/2023 2:00 PM EDT Appointment Radiology, [address] [address] 08/26/2023 1:00 PM EDT Office Visit Sleep Disorders, [address] [address] Dave Daigle PA-C [address] [place] [address] 09/07/2023 2:00 PM EDT Appointment Radiology, [address] [address] 09/11/2023 2:00 PM EDT Appointment Radiology, [address] [address] 09/25/2023 2:40 PM EDT Office Visit Rheumatology [address] [address] Oliver Zhang MD [address] [place] [address] 02/19/2024 12:00 PM EST Office Visit Family [facility] [address], [place] [address] [place] [address] Kayla Reeder DO [address] [place] [phone] Health Maintenance Due Date Last Done Comments COVID-19 Vaccine (#1) 1993 Influenza Vaccine (FLU shot) (Season Ended) 2023 11/17/2016, 11/17/2016, 11/30/2015, Additional history exists Depression Screening 07/07/2024 07/08/2023, 06/11/19 24 Albumin/Creatinine Ratio Discontinued 08/02/2021 documented as of this encounter Medical Devices Implanted Type Area Pig Machine Operator Helper Device Identifier Shelf Expiration Date Model / Serial / Lot Mediport Pwr Mri 8fr [id number] - [id number] Implanted:Qty : 1 on 07/17/2023 by Medhat Angel MD at OR [facility] Right: Chest CR BARD : PERIPHERAL VASCULAR 07/16/2024 [id number] / / [id number] Port Implant W8f Poly Cath - [id number] Implanted:Qty : 1 on 07/17/2023 by Medhat Angel MD at OR [facility] CR BARD : PERIPHERAL VASCULAR [id number] 07/16/2024 [id number] / / [id number] documented as of this encounter Advance Directives [...] Healthcare Agent Relationshi p Communication Trixie Le [facility] Care Repr esentative (appointed verbally by patient or by statute hierarchy) [email or web address] Care Teams Sales Representative [employer] Relationship Specialty Start Date End Date Kayla Reeder DO [address] [facility] [place] [address] PCP - General Family Medicine 06/11/23 documented as of this encounter
--- OUTSIDE RECORDS SUMMARY | 2023-09-18 21:28 | External Medical Summary ---
Author Name Unknown Address Unknown Organization K1F[facility] [address] [facility] [place] [address] Laboratory Report Ordering Provider Test Date Status MATTI BARAJAS 08/03/2023 08:21:24 Final Observation Date Value Abnormality Reference (Units ) Status BUN 08/03/2023 08:21:24 20 6-20 (mg/dL) Final Creatinine 08/03/2023 08:21:24 0.7 0.6-1.2 (mg/dL) Final Glomerular filtration rate/1.73 sq M.predicted [Volume Rate/Area] in Serum, Plasma or Blood by Creatinine-based formula (CKD-EPI) 08/03/2023 08:21:24 >90 >=60 (mL/min) Final eGFR is calculated based on the CKD-EPI 2020 equation Sodium 08/03/2023 08:21:24 138 135-146 (m mol/L) Final Potassium 08/03/2023 08:21:24 3.4 Below low normal 3.5 -5.1 (mmol/L) Final Cl 08/03/2023 08:21:24 100 98-107 (mm ol/L) Final CO2 08/03/2023 08:21:24 23 22-32 (mmo l/L) Final Anion gap 08/03/2023 08:21:24 15 7-15 (mmol /L) Final Glucose 08/03/2023 08:21:24 142 Above high normal 70 -120 (mg/dL) Final Albumin 08/03/2023 08:21:24 3.9 3.8-5.0 (g /dL) Final AST (Aspartate aminotransferase) 08/03/2023 08:21:24 17 10-50 (U/L) Fin al Results may be falsely eleva ketan due to hemolysis. Alk Phos 08/03/2023 08:21:24 55 35-130 (U/ L) Final Bilirubin, Total 08/03/2023 08:21:24 0.5 <=1 .2 (mg/dL) Final Calcium 08/03/2023 08:21:24 9.4 8.4-10.2 ( mg/dL) Final Protein 08/03/2023 08:21:24 6.2 6.0-8.3 (g /dL) Final ALT (Alanine aminotransferase) 08/03/2023 08:21:24 41 10-50 (U/L) Final Performing Location LABORATORY [facility] Faby Rydertowsnehal [place] [address]
--- OUTSIDE RECORDS SUMMARY | 2023-09-18 21:28 | External Medical Summary | Summary of Care ---
Author Name Unknown Organization [facility] Address [address] [place] [address] Phone [phone] Care Team Providers Care Family Life Educator Name Role Phone Varinder Kayla Clarke DO Primary Care Provider +1- [phone] Reason for Visit * Reason Comments Outpatient Testing Encounter Details Date Type Department Care Team ([facility] st Contact Info) Description 08/03/2023 8:00 AM EDT Laboratory Laboratory, [facility] [address] [place] [phone] [facility], Lab [address] [place] [address] Burkitt lymphoma of intra-abdominal lymph [...] Team (Late st Contact Info) Description 08/03/2023 9:00 AM EDT Immunization/Injection Hematology/Oncology Treatment, [facility] [address] [place] [address] [facility], Chair8 Hem Onc [address] [place] [address] Arrived 08/06/2023 8:20 AM EDT Laboratory Laboratory, [address] [address] [facility], Lab [address] [place] [address] 08/06/2023 9:30 AM EDT Office Visit Hematology/Oncology, [address] [address] Lakeshia Stone CRNP [address] [place] [address] 08/10/2023 9:20 AM EDT Laboratory Laboratory [facility], [place] [address] [place] [phone] [place], Lab [facility] [address] [facility] [place] [address] 08/13/2023 11:45 AM EDT Appointment Radiology, [address] [address] 08/14/2023 9:00 AM EDT Laboratory Laboratory, [address] [address] [facility], Lab [address] [place] [address] 08/14/2023 10:00 AM EDT Telemedicine Hematology/Oncology, [address] [address] Mike Chaudhary MD [address] [facility] [place] [address] Cart, Telemed [facility] Hem Onc Clinic [address] [place] [address] 08/14/2023 10:30 AM EDT Office Visit Palliative Medicine, [address] 5th [place] [address] Aury Silva MD [address] [place] [address] 08/17/2023 7:15 AM EDT Nurse Only Hematology Oncology [facility], [address] [address] [place], Nurse Lab Hem/Onc [address] [place] [address] 08/17/2023 8:00 AM EDT Hem/Onc Treatment Hematology Oncology [facility], [address] [address] [place], Chair 20 Hem/Onc [address] [place] [address] 08/17/2023 2:00 PM EDT Appointment Radiology, [address] [phone] 08/19/2023 11:00 AM EDT Nurse Only Hematology/Oncology Treatment, [address] [address] [facility], Chair9 Hem Onc [address] [place] [address] 08/21/2023 9:00 AM EDT Nurse Only Hematology Oncology [address] [address] [place], Nurse Lab Hem/Onc [address] [place] [address] 08/21/2023 10:00 AM EDT Hem/Onc Treatment Hematology Oncology [address] [address] [place], Chair 18 Hem/Onc [address] [facility] [place] [address] 08/21/2023 2:00 PM EDT Appointment Radiology, [place] [address] [place] [address] 09/07/2023 2:00 PM EDT Appointment Radiology, [address] [address] 09/11/2023 2:00 PM EDT Appointment Radiology, [address] [address] 09/25/2023 2:40 PM EDT Office Visit Rheumatology [place] [address] [employer] [place] [address] Oliver Zhang MD [facility] [place] [address] 02/19/2024 12:00 PM EST Office Visit Family Practice [facility], [place] [address] [place] [address] Kayla Reeder DO [address] [place] [address] Pending Results Name Type Priority Associated Diagnoses Date /Time CBC WITH WBC DIFFERENTIAL Lab STAT 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) 08/03/2023 8:21 AM EDT COMPREHENSIVE METABOLIC PANEL Lab STAT 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) 08/03/2023 8:21 AM EDT URIC ACID Lab STAT 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) 08/03/2023 8:21 AM EDT LD Lab STAT 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) 08/03/2023 8:21 AM EDT DIFFERENTIAL, AUTOMATED Lab STAT 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) 08/03/2023 8:21 AM EDT Health Maintenance Due Date Last Done Comments COVID-19 Vaccine (#1) 1993 Influenza Vaccine (FLU shot) (Season Ended) 2023 11/17/2016, 11/17/2016, 11/30/2015, Additional history exists Depression Screening 07/07/2024 07/08/2023, 06/11/19 24 Albumin/Creatinine Ratio Discontinued 08/02/2021 documented as of this encounter Medical Devices Implanted Type Area Rubber Compounder Mixer Device Identifier Shelf Expiration Date Model / Serial / Lot Mediport Pwr Mri 8fr [id number] - [id number] Implanted:Qty : 1 on 07/17/2023 by Medaht Angel MD at OR [facility] Right: Chest CR BARD : PERIPHERAL VASCULAR 07/16/2024 [id number] / / [id number] Port Implant W8f Poly Cath - [id number] Implanted:Qty : 1 on 07/17/2023 by Medhat Angel MD at OR [facility] CR BARD : PERIPHERAL VASCULAR [id number] 07/16/2024 [id number] / / [id number] documented as of this encounter Procedures Procedure Name Priority Date/Time Associated Diagnosis Comments CBC STAT 08/03/2023 8:21 AM EDT 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) documented in this encounter Results * (ABNORMAL) CBC (08/03/2023 8:21 AM EDT) WBC 5.59 4.00 - 10.80 K/uL 08/03/2023 8:36 AM EDT LAB[facility]ATORY [facility] RBC 3.33 4.50 - 5.25 M/uL 08/03/2023 8:36 AM EDT LAB[facility]ORY [facility] HGB 10.1(L) 14.0 - 16.8 g/dL 08/03/2023 8:36 AM EDT LAB[facility]ATORY [facility] HCT 29.5(L) 40.0 - 48.4 % 08/03/2023 8:36 AM EDT LAB[facility] MCV 88.6 82.0 - 99.5 fL 08/03/2023 8:36 AM EDT LAB[facility]ORY [facility] MCH 30.3 27.0 - 34.0 pg 08/03/2023 8:36 AM EDT LAB[facility]ORY [facility] MCHC 34.2 32.0 - 36.0 g/dL 08/03/2023 8:36 AM EDT LAB[facility]ORY [facility] RDW 17.1 11.5 - 15.5 % 08/03/2023 8:36 AM EDT LABORATORY [facility] PLT 170 140 - 400 K/uL 08/03/2023 8:36 AM EDT LABORATORY [facility] MPV 9.5 6.6 - 11.1 fL 08/03/2023 8:36 AM EDT LABORATORY GL nRBCs 0 <=0 /100 WBCs 08/03/2023 8:36 AM EDT LABORATORY [facility] Blood Venous blood specimen / Unknown Venipuncture / Unknown 08/03/2023 8:21 AM EDT 08/03/2023 8:21 AM EDT Mike Chaudhary MD LAB BLOOD O RDERABLES LABORATORY [facility] [address] [facility] [place] [address] documented in this encounter Visit Diagnoses Diagnosis [...] Agents on File Name Relationship Healthcare Agent [facility] p Communication Trixie Le [facility] Repr esentative (appointed verbally by patient or by statute hierarchy) [email or web address] Care Teams Family Life Educator Relationship Specialty Start Date End Date Kayla Reeder DO [address] [place] [address] PCP - General Family Medicine 06/11/23 documented as of this encounter
--- OUTSIDE RECORDS SUMMARY | 2023-09-18 21:28 | External Medical Summary | Summary of Care ---
Author Name Unknown Organization [facility] Address [address] [place] [address] Phone [phone] Care Team Providers Care Almond Cutting Machine Tender Name Role Phone Kayla Reeder DO Primary Care Provider +1- [phone] Reason for Visit * Reason Comments Treatment [...] NV INJ, NYVEPRIA [place] INJ, CYCLOPHOSPHAMIDE, NOS Elvis Villalobos MD [facility] [place] [address] Anc Hem[facility]Onc [facility] [place] [address] Referral ID Status Reason Start Date Expiration Date V isits Requested Visits Authorized [id number] Authorized 07/23/2023 01/22/[phone] Encounter Details Date Type Department Care Team ([facility] st Contact Info) Description 08/03/2023 9:00 AM EDT Immunization/ Injection Hematology/Oncology Treatment, [facility] [place] [id number] [facility], Chair8 Hem Onc [facility] [place] [address] Encounter for antineoplastic chemotherapy*; Burkitt lymphoma of [...] Nursing Notes * Radha López LPN - 08/03/2023 9:02 AM EDT [place] 3 Nyvepria given subcutaneously left arm per order. Tolerated well. Patient left IVC by ambulating. Accompanied by Family. Voiced no complaints. Radha López LPN 08/03/2023 9:02 AM documented in this encounter Plan of Treatment Upcoming Encounters Date Type Department Care Team (Late st Contact Info) Description 08/06/2023 8:20 AM EDT Laboratory Laboratory, [address] [place] [address] [facility], Lab [address] [place] [address] 08/06/2023 9:30 AM EDT Office Visit Hematology/Oncology, [facility] [place] [address] Laksehia Stone CRNP 400 [place] [address] 08/10/2023 9:20 AM EDT Laboratory Laboratory [place] Mar[place]ell Garcia [address] [place] [phone] Voilette Reyna [place] Jose [address] [place] [id number] 08/13/2023 11:45 AM EDT Appointment Radiology, [address] [address] 08/14/2023 9:00 AM EDT Laboratory Laboratory, [address] [address] [facility], Lab [address] [place] [address] 08/14/2023 10:00 AM EDT Telemedicine Hematology/Oncology, [address] [address] Mike Chaudhary MD [address] [place] [address] Cart, Telemed [facility] Hem Onc Clinic [address] [place] [address] 08/14/2023 10:30 AM EDT Office Visit Palliative Medicine, [address] 5th [place] [address] Aury Silva MD [address] [place] [address] 08/17/2023 7:15 AM EDT Nurse Only Hematology Oncology [address] [address] [place], Nurse Lab Hem/Onc [address] [place] [address] 08/17/2023 8:00 AM EDT Hem/Onc Treatment Hematology Oncology [address] [address] [place], Chair 20 Hem/Onc [address] [place] [address] 08/17/2023 2:00 PM EDT Appointment Radiology, [address] [phone] 08/19/2023 11:00 AM EDT Nurse Only Hematology/Oncology Treatment, [address] [address] [facility], Chair9 Hem Onc [address] [place] [address] 08/21/2023 9:00 AM EDT Nurse Only Hematology Oncology [facility], [address] [address] [place], Nurse Lab Hem/Onc [address] [place] [address] 08/21/2023 10:00 AM EDT Hem/Onc Treatment Hematology Oncology [facility], [address] [address] [place], Chair 18 Hem/Onc [address] [place] [address] 08/21/2023 2:00 PM EDT Appointment Radiology, [address] [address] 09/07/2023 2:00 PM EDT Appointment Radiology, [address] [address] 09/11/2023 2:00 PM EDT Appointment Radiology, [address] [address] 09/25/2023 2:40 PM EDT Office Visit Rheumatology [place] [address]250 [facility] [address] Oliver Zhang MD [address] [facility] [place] [address] 02/19/2024 12:00 PM EST Office Visit [facility], [place] 895558 [facility] [place] ERNST [address] Kayla Reeder DO [address] [facility] [place] ERNST [address] Health Maintenance Due Date Last Done Comments COVID-19 Vaccine (#1) 1993 Influenza Vaccine (FLU shot) (Season Ended) 2023 11/17/2016, 11/17/2016, 11/30/2015, Additional history exists Depression Screening 07/07/2024 07/08/2023, 06/11/19 24 Albumin/Creatinine Ratio Discontinued 08/02/2021 documented as of this encounter Medical Devices Implanted Type Area Kiln Puller Device Identifier Shelf Expiration Date Model / Serial / Lot Mediport Pwr Mri 8fr [id number] - [id number] Implanted:Qty : 1 on 07/17/2023 by Medhat Angel MD at OR [facility] Right: Chest CR BARD : PERIPHERAL VASCULAR 07/16/2024 [id number] / / [id number] Port Implant W8f Poly Cath - [id number] Implanted:Qty : 1 on 07/17/2023 by Medhat Angel MD at OR [facility] CR BARD : PERIPHERAL VASCULAR [id number] 07/16/2024 [id number] / / [id number] documented as of this encounter Visit Diagnoses Diagnosis Encounter for antineoplastic chemotherapy- Primary 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) Burkitt's tumor or lymphoma of intra-abdominal lymph nodes documented in this encounter Administered Medications Inactive Administered Medications - up to 3 most recent administrations Medication Order MAR Action Action Date Dose Rate Site Pegfilgrastim-apgf (Nyvepria) inj 6 mg 6 mg, Subcutaneous, ONCE, On 08/03/23 at 0930, For 1 dose Given 08/03/2023 8:59 AM EDT 6 mg Arm L eft [...] Healthcare Agent Relationshi p Communication Trixie Le [facility] Repr esentative (appointed verbally by patient or by statute hierarchy) [email or web address] Care Teams Almond Cutting Machine Tender Relationship Specialty Start Date End Date Kayla Reeder DO [address] [facility] ERNST [place] [address] PCP - General Family Medicine 06/11/23 documented as of this encounter
--- OUTSIDE RECORDS SUMMARY | 2023-09-18 21:28 | External Medical Summary | Summary of Care ---
Author Name Unknown Organization [facility] Address [address] [place] [address] Phone [phone] Care Team Providers Care Director Of Retail Name Role Phone Kayla Reeder DO Primary Care Provider +1- [phone] Encounter Details Date Type Department Care Team (Late st Contact Info) Description 07/31/2023 Telephone Family Practice [facility] [place] [address] [place] [address] Calin Galloway PA-C [address] [place] [address] Allergies No known active allergiesdocumented [...] Description 08/03/2023 8:00 AM EDT Laboratory Laboratory, [address] [phone] [facility], Lab [address] [place] [address] 08/03/2023 9:00 AM EDT Immunization/Injection Hematology/Oncology Treatment, [address] [address] [facility], Chair8 Hem Onc [address] [place] [address] [place] [address] 08/06/2023 8:20 AM EDT Laboratory Laboratory, [address] [address] [facility], Lab [address] [place] [address] 08/06/2023 9:30 AM EDT Office Visit Hematology/Oncology, [address] [address] Lakeshia Stone CRNP [address] [place] [address] [place] [address] 08/10/2023 9:20 AM EDT Laboratory Laboratory [facility], [place] 5518 [facility] ERNST [place] [phone] [place], Lab [facility] 1848 [facility] ERNST [place] [address] 08/13/2023 11:45 AM EDT Appointment Radiology, [address] [address] 08/14/2023 9:00 AM EDT Laboratory Laboratory, [address] [address] [facility], Lab [address] [place] [address] 08/14/2023 10:00 AM EDT Telemedicine Hematology/Oncology, [address] [address] Mike Chaudhary MD [facility] [place] [address] Cart, Telemed [facility] Hem Onc Clinic [address] [place] [address] 08/14/2023 10:30 AM EDT Office Visit Palliative Medicine, [address] [place] [address] Aury Silva MD [address] [place] [address] 08/17/2023 7:15 AM EDT Nurse Only Hematology Oncology [address] [address] [place], Nurse Lab Hem/Onc [address] [place] [address] 08/17/2023 8:00 AM EDT Hem/Onc Treatment Hematology Oncology [place] [address] [place] [address] [place], Chair 20 Hem/Onc [address] [place] [address] 08/17/2023 2:00 PM EDT Appointment Radiology, [address] [address] 08/19/2023 11:00 AM EDT Nurse Only Hematology/Oncology Treatment, [address] [address] [facility], Chair9 Hem Onc [address] [place] [address] 08/21/2023 9:00 AM EDT Nurse Only Hematology Oncology [facility], [address] [address] [place], Nurse Lab Hem/Onc [address] [place] [address] 08/21/2023 10:00 AM EDT Hem/Onc Treatment Hematology Oncology [facility], [address] [address] [place], Chair 18 Hem/Onc [address] [place] [address] 08/21/2023 2:00 PM EDT Appointment Radiology, [address] [address] 08/26/2023 1:00 PM EDT Office Visit Sleep Disorders, [address] [address] Dave Daigle PA-C [address] [place] [address] 09/07/2023 2:00 PM EDT Appointment Radiology, [address] [address] 09/11/2023 2:00 PM EDT Appointment Radiology, [address] [address] 09/25/2023 2:40 PM EDT Office Visit Rheumatology [address] [address] Oliver Zhang MD [address] [place] [address] 02/19/2024 12:00 PM EST Office Visit Family [facility] [address], [place] [address] [place] [address] Kayla Reeder DO [address] [place] [phone] Health Maintenance Due Date Last Done Comments COVID-19 Vaccine (#1) 1993 Influenza Vaccine (FLU shot) (Season Ended) 2023 11/17/2016, 11/17/2016, 11/30/2015, Additional history exists Depression Screening 07/07/2024 07/08/2023, 06/11/19 24 Albumin/Creatinine Ratio Discontinued 08/02/2021 documented as of this encounter Medical Devices Implanted Type Area Poly Area Supervisor Device Identifier Shelf Expiration Date Model / Serial / Lot Mediport Pwr Mri 8fr [id number] - [id number] Implanted:Qty : 1 on 07/17/2023 by Medhat Angel MD at OR [facility] Right: Chest CR BARD : PERIPHERAL VASCULAR 07/16/2024 [id number] / / [id number] Port Implant W8f Poly Cath - [id number] Implanted:Qty : 1 on 07/17/2023 by Medhat Angel MD at OR [facility] CR BARD : PERIPHERAL VASCULAR [id number] 07/16/2024 [id number] / / [id number] documented as of this encounter Advance Directives [...] p Communication Trixie Le [facility] Care Repr esentative (appointed verbally by patient or by statute hierarchy) [email or web address] Care Teams Director Of Retail Relationship Specialty Start Date End Date Kayla Reeder DO 3[address] [facility] [place]NST [place] [address] PCP - General Family Medicine 06/11/23 documented as of this encounter
--- OUTSIDE RECORDS SUMMARY | 2023-09-18 21:28 | External Medical Summary | Summary of Care ---
Author Name Unknown Organization [facility] Address [address] [place] [address] Phone [phone] Care Team Providers Care Crib Attendant Name Role Phone Kayla Reeder DO Primary Care Provider +1- [phone] Reason for Visit * Reason Comments Outpatient Testing Encounter Details Date Type Department Care Team ([facility] st Contact Info) Description 07/31/2023 12:30 PM EDT Laboratory Laboratory, [facility] [address] [place] [phone] [facility], Lab [address] [place] [address] Borderline anemia; Hypokalemia; Renal calculus, left; Hypocalcemia; 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) [...] 1:30 PM EDT Hem/Onc Treatment Hematology/Oncology Treatment, [place] [address] [place]NST [place] [address] [facility], Chair2 Hem Onc [address] [place] [address] [place]NST [place] [address] Arrived 08/03/2023 8:00 AM EDT Laboratory Laboratory, [address] [place] [address] [facility], Lab [address] [place] [address] 08/03/2023 9:00 AM EDT Immunization/Injection Hematology/Oncology Treatment, [address] [place] [address] [facility], Chair8 Hem Onc [address] [place] [address], [place] [address] 08/06/2023 8:20 AM EDT Laboratory Laboratory, [address] [address] [facility], Lab [address] [place] [address] 08/06/2023 9:30 AM EDT Office Visit Hematology/Oncology, [address] [place] [address] Lakeshia Stone, NIK [address] [place] [address] 08/10/2023 9:20 AM EDT Laboratory Laboratory [facility], [place] 3[address] [facility] ERNST [place] [phone] [place], Lab [address] [facility] ERNST [place] [address] 08/13/2023 11:45 AM EDT Appointment Radiology, [address] [address] 08/14/2023 9:00 AM EDT Laboratory Laboratory, [address] [address] [facility], Lab [address] [place] [address] 08/14/2023 10:00 AM EDT Telemedicine Hematology/Oncology, [address] [address] Mike Chaudhary MD [address] [place] [address] [place], Telemed [facility] Hem Onc Clinic [address] [place] [address] 08/14/2023 10:30 AM EDT Office Visit Palliative Medicine, [address] 5th [place] [address] Aury Silva MD [address] [place] [address] 08/17/2023 7:15 AM EDT Nurse Only Hematology Oncology [facility], [address] [address] [place], Nurse Lab Hem/Onc [address] [place] [address] 08/17/2023 8:00 AM EDT Hem/Onc Treatment Hematology Oncology [facility], [address] [address] [place], Chair 20 Hem/Onc [address] [place] [address] 08/17/2023 2:00 PM EDT Appointment Radiology, [address] [address] 08/19/2023 11:00 AM EDT Nurse Only Hematology/Oncology Treatment, [address] [address] [facility], Chair9 Hem Onc [address] [place] [address] 08/21/2023 9:00 AM EDT Nurse Only Hematology Oncology [facility], [address] [address] [place], Nurse Lab Hem/Onc [address] [place] [address] 08/21/2023 10:00 AM EDT Hem/Onc Treatment Hematology Oncology [facility], [address] [address] [place], Chair 18 Hem/Onc [address] [place] [address] 08/21/2023 2:00 PM EDT Appointment Radiology, [address] [address] 08/26/2023 1:00 PM EDT Office Visit Sleep Disorders, [address] [address] Dave Daigle PA-C [address] [place] [address] 09/07/2023 2:00 PM EDT Appointment Radiology, [address] [address] 09/11/2023 2:00 PM EDT Appointment Radiology, [address] [address] 09/25/2023 2:40 PM EDT Office Visit Rheumatology [place] 535180 [facility] [place] [address] Oliver Zhang MD [facility] [place] [address] 02/19/2024 12:00 PM EST Office Visit [facility] [address], [place] [address] [place] [address] Kayla Reeder DO [address] [place] [address] Pending Results Name Type Priority Associated Diagnoses Date /Time PTH Lab Routine Borderline anemia Hypokalemia Renal calculus, left Hypocalcemia 07/31/2023 11:06 AM EDT CBC WITH WBC DIFFERENTIAL AND ANEMIA REFLEX WORKUP Lab STAT Borderline anemia Hypokalemia Renal calculus, left Hypocalcemia 07/31/2023 11:06 AM EDT COMPREHENSIVE METABOLIC PANEL Lab STAT 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) 07/31/2023 11:06 AM EDT URIC ACID Lab STAT 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) 07/31/2023 11:06 AM EDT LD Lab STAT 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) 07/31/2023 11:06 AM EDT FLOW CYTOMETRY, LEUKEMIA LYMPHOMA PANEL Lab STAT 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) 07/31/2023 11:06 AM EDT ANEMIA REFLEX CHEMISTRY HOLD Lab STAT Borderline anemia Hypokalemia Renal calculus, left Hypocalcemia 07/31/2023 11:06 AM EDT RETICULOCYTE PANEL Lab STAT Borderline anemia Hypokalemia Renal calculus, left Hypocalcemia 07/31/2023 11:06 AM EDT Health Maintenance Due Date Last Done Comments COVID-19 Vaccine (#1) 1993 Influenza Vaccine (FLU shot) (Season Ended) 2023 11/17/2016, 11/17/2016, 11/30/2015, Additional history exists Depression Screening 07/07/2024 07/08/2023, 06/11/19 24 Albumin/Creatinine Ratio Discontinued 08/02/2021 documented as of this encounter Medical Devices Implanted Type Area Inverted Block Operator Device Identifier Shelf Expiration Date Model / Serial / Lot Mediport Pwr Mri 8fr [id number] - [id number] Implanted:Qty : 1 on 07/17/2023 by Medhat Angel MD at OR [facility] Right: Chest CR BARD : PERIPHERAL VASCULAR 07/16/2024 [id number] / / [id number] Port Implant W8f Poly Cath - [id number] Implanted:Qty : 1 on 07/17/2023 by Medhat Angel MD at OR [facility] CR BARD : PERIPHERAL VASCULAR [id number] 07/16/2024 [id number] / / [id number] documented as of this encounter Procedures Procedure Name Priority Date/Time Associated Diagnosis Comments ANEMIA CBC STAT 07/31/2023 11:06 AM EDT Borderline anemia Hypokalemia Renal calculus, left Hypocalcemia DIFFERENTIAL, AUTOMATED STAT 07/31/2023 11:06 AM EDT Borderline anemia Hypokalemia Renal calculus, left Hypocalcemia documented in this encounter Results * (ABNORMAL) DIFFERENTIAL, AUTOMATED (07/31/2023 11:06 AM EDT) WBC 5.61 4.00 - 10.80 K/uL 07/31/2023 11:16 AM EDT LABORATORY [facility] Neutrophils % 86.1(H) 40.0 - 75.0 % 07/31/2023 11:16 AM EDT LABORATORY [facility] Lymphocytes % 4.8(L) 18.0 - 42.0 % 07/31/2023 11:16 AM EDT LABORATORY GL Monocytes % 8.0 1.0 - 11.0 % 07/31/2023 11:16 AM EDT LABORATORY [facility] Eosinophils % 0.0 0.0 - 6.0 % 07/31/2023 11:16 AM EDT LABORATORY [facility] Basophils % 0.0 0.0 - 2.0 % 07/31/2023 11:16 AM EDT LABORATORY GL Immature Granulocytes % 1.1 0.0 - 2.0 % 07/31/2023 11:16 AM EDT LABORATORY [facility] Absolute Neutrophils 4.83 1.80 - 7.70 K/uL 07/31/2023 11:16 AM EDT LABORATORY [facility] Absolute Lymphocytes 0.27(L) 1.00 - 4.80 K/ul 07/31/2023 11:16 AM EDT LABORATORY [facility] Absolute Monocytes 0.45 0.00 - 1.10 K/uL 07/31/2023 11:16 AM EDT LABORATORY [facility] Absolute Eosinophils 0.00 0.00 - 0.70 K/uL 07/31/2023 11:16 AM EDT LAB[facility]ATORY [facility] Absolute Basophils 0.00 0.00 - 0.20 K/uL 07/31/2023 11:16 AM EDT LAB[facility]ORY [facility] Absolute Immature Granulocytes 0.06 0.00 - 0.20 K/uL 07/31/2023 11:16 AM EDT LAB[facility]ATORY [facility] Blood Venous blood specimen / Unknown Venipuncture / Unknown 07/31/2023 11:06 AM EDT 07/31/2023 11:08 AM EDT Calin Galloway PA-C LAB BLOOD ORD ERABLES LABORATORY [address] [address] * (ABNORMAL) ANEMIA CBC (07/31/2023 11:06 AM EDT) WBC 5.61 4.00 - 10.80 K/uL 07/31/2023 11:16 AM EDT LABORATORY [facility] RBC 3.63 4.50 - 5.25 M/uL 07/31/2023 11:16 AM EDT LABORATORY [facility] HGB 11.1(L) 14.0 - 16.8 g/dL 07/31/2023 11:16 AM EDT LABORATORY [facility] Comment: Anemia reflex testing triggers on a HGB < 12.0 for Females and HGB < 13.0 for Males in accordance with the WHO Anemia Guidelines Anemia reflex testing triggers on a HGB < 12.0 for Females and HGB < 13.0 for Males in accordance with the WHO Anemia Guidelines HCT 31.3(L) 40.0 - 48.4 % 07/31/2023 11:16 AM EDT LABORATORY [facility] MCV 86.2 82.0 - 99.5 fL 07/31/2023 11:16 AM EDT LAB[facility]ATORY [facility] MCH 30.6 27.0 - 34.0 pg 07/31/2023 11:16 AM EDT LABORATORY [facility] MCHC 35.5 32.0 - 36.0 g/dL 07/31/2023 11:16 AM EDT LABORATORY [facility] RDW 17.5 11.5 - 15.5 % 07/31/2023 11:16 AM EDT LABORATORY [facility] PLT 205 140 - 400 K/uL 07/31/2023 11:16 AM EDT LABORATORY [facility] MPV 9.3 6.6 - 11.1 fL 07/31/2023 11:16 AM EDT LABORATORY [facility] nRBCs 0 <=0 /100 WBCs 07/31/2023 11:16 AM EDT LABORATORY [facility] Blood Venous blood specimen / Unknown Venipuncture / Unknown 07/31/2023 11:06 AM EDT 07/31/2023 11:08 AM EDT Calin Galloway PA-C LAB BLOOD ORD ERABLES LABORATORY [facility] [address] [place] [address] documented in this encounter Visit Diagnoses Diagnosis Borderline anemia Hypokalemia Hypopotassemia Renal calculus, left Calculus of kidney Hypocalcemia 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
--- OUTSIDE RECORDS SUMMARY | 2023-09-18 21:28 | External Medical Summary ---
Author Name Unknown Address Unknown Organization K1F:LABORATORY [facility] - [address] [facility]. Jarek DUKES [address] Laboratory Report Ordering Provider Test Date Status MATTI BARAJAS 08/03/2023 08:21:24 Final Observation Date Value Abnormality Reference (Units ) Status SYNC LEUKOCYTES IN BLOOD BY AUTOMATED COUNT 08/03/2023 08:21:24 5.59 4.00-10.80 (K/uL) Final Segs 08/03/2023 08:21:24 96.9 Above high normal 40.0-75.0 (%) Final Lymphs % 08/03/2023 08:21:24 1.8 Below low normal 18.0-42.0 (%) Final Monos 08/03/2023 08:21:24 0.4 Below low normal 1.0-11.0 (%) Final Eosinophils 08/03/2023 08:21:24 0.0 0.0-6.0 (%) Final Basos 08/03/2023 08:21:24 0.2 0.0-2.0 (%) Final Immature Granulocyte, Percent 08/03/2023 08:21:24 0.7 0.0-2.0 (%) Final Absolute Segs 08/03/2023 08:21:24 5.42 1.80-7.70 (K/uL) Final Lymphs, absolute 08/03/2023 08:21:24 0.10 Below low normal 1.00-4.80 (K/ul) Final Monos, Abs 08/03/2023 08:21:24 0.02 0.00-1.10 (K/uL) Final Eos, Abs 08/03/2023 08:21:24 0.00 0.00-0.70 (K/uL) Final Basos, Abs 08/03/2023 08:21:24 0.01 0.00-0.20 (K/uL) Final Immature Granulocytes, Number 08/03/2023 08:21:24 0.04 0.00-0.20 (K/uL) Final Performing Location LABORATORY [facility] - [facility] Faby [address]izano. Jarek DUKES [address]
--- OUTSIDE RECORDS SUMMARY | 2023-09-18 21:28 | External Medical Summary | Summary of Care ---
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 [place] [address] Anc Hem/Onc [facility] [place] [address] Referral ID Status Reason Start Date Expiration Date V isits Requested Visits Authorized [id number] Authorized 07/23/2023 01/22/2024 999 999 Encounter Details Date Type Department Care Team (Latest Contact Info) Description 07/29/2023 1:30 PM EDT Hem/Onc Treatment Hematology/Oncolog y Treatment, [facility] [place] [id number] [facility], Chair4 Hem Onc [address] [place] [address], [place] [address] Encounter for antineoplastic chemotherapy*; Burkitt lymphoma of [...] treatment only. 75 Tablet 5 07/27/2023 Active Hospital, Clinic, or Other Facility Administered Medication Ordered Dose Route Frequency Start Date End Date Status etoposide (VEPESID) 240 mg, vinCRIStine sulfate 1.91 mg, DOXOrubicin (Adriamycin) 48 mg in NSS 1,500 mL infusion IV CONTINUOUS 07/28/2023 07/30/2023 Ended documented as of this encounter (statuses [...] Kendall RN - 07/29/2023 3:27 PM EDT [facility] Nursing Care Plan ID is not set. [...] 1:30 PM EDT Hem/Onc Treatment Hematology/Oncology Treatment, [address], [place] [address] [facility], Chair2 Hem Onc [address] [place] [address], [place] [address] Arrived 08/03/2023 8:00 AM EDT Laboratory Laboratory, [address], [place] [address] [facility], Lab [address] [place] [address] 08/03/2023 9:00 AM EDT Immunization/Injection Hematology/Oncology Treatment, [address], [place] [address] [facility], Chair8 Hem Onc [address] [place] [address], [place] [address] 08/06/2023 8:20 AM EDT Laboratory Laboratory, [address], [place] [address] [facility], Lab [address] [place] [address], [place] [address] 08/06/2023 9:30 AM EDT Office Visit Hematology/Oncology, [address], [place] [address] Lakeshia Stone CRNP [address] [place], [place] [address] 08/10/2023 9:20 AM EDT Laboratory Laboratory [address], [place] [address] [place] [phone] [place], Lab [address] [place] [address] 08/13/2023 11:45 AM EDT Appointment Radiology, [address] [address] 08/14/2023 9:00 AM EDT Laboratory Laboratory, [address] [address] [facility], Lab [address] [place] [address] 08/14/2023 10:00 AM EDT Telemedicine Hematology/Oncology, [address] [address] Mike Chaudhary MD [address] [place] [address] Cart, Telemed [facility] Hem Onc Clinic [address] [place] [address] 08/14/2023 10:30 AM EDT Office Visit Palliative Medicine, [address] 5th [place] [address] Aury Silva MD [address] [place] [address] 08/17/2023 7:15 AM EDT Nurse Only Hematology Oncology [address] [address] [place], Nurse Lab Hem/Onc [address] [place] [address] 08/17/2023 8:00 AM EDT Hem/Onc Treatment Hematology Oncology [facility], [address] [address] [place], Chair 20 Hem/Onc [address] [place] [address] 08/17/2023 2:00 PM EDT Appointment Radiology, [address] [phone] 08/19/2023 11:00 AM EDT Nurse Only Hematology/Oncology Treatment, [address] [address] [facility], Chair9 Hem Onc [address] [place] [address] 08/21/2023 9:00 AM EDT Nurse Only Hematology Oncology [facility], [address] [address] [place], Nurse Lab Hem/Onc [address] [place] [address] 08/21/2023 10:00 AM EDT Hem/Onc Treatment Hematology Oncology [facility], [address] [address] [place], Chair 18 Hem/Onc [address] [place] [address] 08/21/2023 2:00 PM EDT Appointment Radiology, [address] [address] 08/26/2023 1:00 PM EDT Office Visit Sleep Disorders, [address] [address] Dave Daigle PA-C [address] [place] [address] 09/07/2023 2:00 PM EDT Appointment Radiology, [address] [address] 09/11/2023 2:00 PM EDT Appointment Radiology, [address] [address] 09/25/2023 2:40 PM EDT Office Visit Rheumatology [place] [phone] [facility] [place], [place] [address] Oliver Zhang MD [address] [place] [address] [place], [place] [address] 02/19/2024 12:00 PM EST Office Visit Family Practice [place] [address] [place] [address] Kayla Reeder DO [address] [place] [address] Scheduled Orders Name Type Priority Associated [...] this encounter Medical Devices Implanted Type Area Operational Intelligence Analyst Device Identifier Shelf Expiration Date Model / Serial / Lot Mediport Pwr Mri 8fr [id number] - [id number] Implanted:Qty : 1 on 07/17/2023 by Medhat Angel MD at OR [facility] Right: Chest CR BARD : PERIPHERAL VASCULAR 07/16/2024 [id number] / / [id number] Port Implant W8f Poly Cath - [id number] Implanted:Qty : 1 on 07/17/2023 by Medhat Angel MD at OR [facility] CR BARD : PERIPHERAL VASCULAR [id number] 07/16/2024 [id number] / / [id number] documented as of this encounter Visit Diagnoses [...] sulfate 1.9 mg, DOXOrubicin (Adriamycin) 48 mg [facility] INF[facility] 48 HOUR infusion Intravenous, [...] Agents on File Name Relationship Healthcare Agent [facility] p Communication Trixie Le [facility] Repr esentative (appointed verbally by patient or by statute hierarchy) [email or web address] Care Teams Manager Interface Relationship Specialty Start Date End Date Kayla Reeder DO [address] [facility] [place] [address] PCP - General Family Medicine 06/11/23 documented as of this encounter
--- OUTSIDE RECORDS SUMMARY | 2023-09-18 21:28 | External Medical Summary ---
Author Name Unknown Address Unknown Organization K1F:LABORATORY [facility] - [address] [address] Laboratory Report Ordering Provider Test Date Status MATTI BARAJAS 08/03/2023 08:21:24 Final Observation Date Value Abnormality Reference (Units ) Status Uric Acid 08/03/2023 08:21:24 4.4 3.4-7.0 (m g/dL) Final Performing Location LABORATORY [facility] - [address] [address]
--- OUTSIDE RECORDS SUMMARY | 2023-09-18 21:28 | External Medical Summary | Summary of Care ---
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) Procedures LA DOXORUBIC HCL 10 MG VL CHEMO LA VINCRISTINE SULFATE 1 MG INJ LA FOSAPREPITANT INJECTION LA ETOPOSIDE 10 MG INJ LA INJECTION, RITUXIMAB-PVVR, BIOSIMILAR, (RUXIENCE), 10 MG LA INJ, NYVEPRIA LA INJ, CYCLOPHOSPHAMIDE, NOS Wilfredo, Elvis Ray MD [address] [facility] [place] [address] Anc Hem/Onc [facility] 400 [facility] [place] [address] Referral ID Status Reason Start Date Expiration Date V isits Requested Visits Authorized [id number] Authorized 07/23/2023 01/22/2024 999 999 Encounter Details Date Type Department Care Team (Latest Contact Info) Description 07/31/2023 1:30 PM EDT Hem/Onc Treatment Hematology/Oncolog y Treatment, [facility] [address] [facility] [place] [address] [facility], Chair2 Hem Onc [address] [place] [address], [place] [address] Encounter for antineoplastic chemotherapy*; Burkitt lymphoma of [...] Nursing Notes * Roula Ramirez RN - 07/31/2023 4:10 PM EDT Patient [...] symptoms or adverse side effects during treatment. [facility] Plan ID is not set. 07/31/2023 Safety [...] 08/03/2023 8:00 AM EDT Laboratory Laboratory, [address] [place] [phone] [facility], Lab [address] [facility] [place] [address] 08/03/2023 9:00 AM EDT Immunization/Injection Hematology/Oncology Treatment, [address] [place] [address] [facility], Chair8 Hem Onc [address] [place] [address] 08/06/2023 8:20 AM EDT Laboratory Laboratory, [address] [phone] [facility], Lab [address] [place] [address] 08/06/2023 9:30 AM EDT Office Visit Hematology/Oncology, [address] [address] Lakeshia Stone CRNP [address] [place] [address] 08/10/2023 9:20 AM EDT Laboratory Laboratory [facility], [place] [address] [facility] [phone] [place], Lab [facility] 3228 [place] [address] 08/13/2023 11:45 AM EDT Appointment Radiology, [address] [address] 08/14/2023 9:00 AM EDT Laboratory Laboratory, [address] [place] [phone] [facility], Lab [address] [place] [address] 08/14/2023 10:00 AM EDT Telemedicine Hematology/Oncology, [address] [address] Mike Chaudhary MD [address] [place] [address] Cart, Telemed [facility] Hem Onc Clinic [address] [place] [address] 08/14/2023 10:30 AM EDT Office Visit Palliative Medicine, [address] 5th [place] [address] Aury Silva MD [address] [place] [address] 08/17/2023 7:15 AM EDT Nurse Only Hematology Oncology [facility], [address] [address] [place], Nurse Lab Hem/Onc [address] [place] [address] 08/17/2023 8:00 AM EDT Hem/Onc Treatment Hematology Oncology [facility], [address] [address] [place], Chair 20 Hem/Onc [address] [place] [address] 08/17/2023 2:00 PM EDT Appointment Radiology, [address] [address] 08/19/2023 11:00 AM EDT Nurse Only Hematology/Oncology Treatment, [address] [address] [facility], Chair9 Hem Onc [address] [place] [address] 08/21/2023 9:00 AM EDT Nurse Only Hematology Oncology [facility], [address] [address] [place], Nurse Lab Hem/Onc [address] [place] [address] 08/21/2023 10:00 AM EDT Hem/Onc Treatment Hematology Oncology [facility], [address] [address] [place], Chair 18 Hem/Onc [address] [place] [address] 08/21/2023 2:00 PM EDT Appointment Radiology, [address] [address] 08/26/2023 1:00 PM EDT Office Visit Sleep Disorders, [facility] [address] [place] [address] Dave Daigle PA-C [address] [place] [address] 09/07/2023 2:00 PM EDT Appointment Radiology, [address] [address] 09/11/2023 2:00 PM EDT Appointment Radiology, [address] [address] 09/25/2023 2:40 PM EDT Office Visit Rheumatology [address] [place] [address] Oliver Zhang MD [address] [place] [address], [place] [address] 02/19/2024 12:00 PM EST Office Visit Family Practice [address], [place] [address] [address] [place] [address] Kayla Reeder DO [address] [place] [id number] Health Maintenance Due Date Last Done Comments COVID-19 Vaccine (#1) 1993 Influenza Vaccine (FLU shot) (Season Ended) 2023 11/17/2016, 11/17/2016, 11/30/2015, Additional history exists Depression Screening 07/07/2024 07/08/2023, 06/11/19 Albumin/Creatinine Ratio Discontinued 08/02/2021 documented as of this encounter Medical Devices Implanted Type Area Hand Candy Dipper Device Identifier Shelf Expiration Date Model / Serial / Lot Tee Pwr Mri 8fr [id number] - [id number] Implanted:Qty : 1 on 07/17/2023 by Medhat Angel MD at OR [facility] Right: Chest CR BARD : PERIPHERAL VASCULAR 07/16/2024 [id number] / / [id number] Port Implant W8f Poly Cath - [id number] Implanted:Qty : 1 on 07/17/2023 by Medhat Angel MD at OR [facility] CR BARD : PERIPHERAL VASCULAR [id number] 07/16/2024 [id number] / / [id number] documented as of this encounter Visit Diagnoses [...] ONCE PRN Other, Hypersensitivity Reaction, Starting on Thu07/31/23 at 1326, Until 08/01/23 at 1325, For 24 hours EPINEPHrine 1 MG/ML inj 0.3 mg 0.3 mg, Intramuscular, ONCE PRN Other, Hypersensitivity Reaction or Anaphylaxis, Starting on Thu07/31/23 at 1326, Until 08/01/23 at 1325, For 24 hours hEParin 100 UNIT/ML Lock Flush inj 500 Units 500 Units (5 mL), IV Lock, PRN Other, IV Flush, Starting on Thu07/31/23 at 1326, Until 08/01/23 at 1325, For 24 hours, Do not flush if lock, PICC, or central line not in place; IV infusing or unable to flush. Given 07/31/2023 4:11 PM EDT 500 Units Hydrocortisone Sod Suc (PF) (Solu-Cortef) inj 100 mg 100 mg, IV Push, ONCE PRN Other, Hypersensitivity Reaction, Starting on Thu07/31/23 at 1326, Until 08/01/23 at 1325, For 24 hours LORAzepam (Ativan) tab 0.5 mg 0.5 mg, Oral, ONCE PRN Anxiety, Nausea, Starting on Thu07/31/23 at 1430, Until Discontinued NSS infusion Intravenous, at 50 mL/hr, PRN, Starting on Thu07/31/23 at 1430, Until Discontinued, Maintenance line Start Infusion 07/31/2023 2:04 PM EDT 500 mL 50 mL/hr sodium chloride 0.9 % flush central line 10 mL 10 mL, IV Push, PRN Other, IV Flush, Starting on Thu07/31/23 at 1326, Until 08/01/23 at 1325, For 24 hours, Do not flush if lock, PICC, or central line not in place; IV infusing or unable to flush. Given 07/31/2023 4:11 PM EDT 10 mL Inactive Administered Medications [...] 2:16 PM EDT 1,790 mg 1037.9 mL/hr NSS infusion FOR HYDRATION Intravenous, at 500 mL/hr Administer over 2 Hours, ONCE, 1 dose, On Thu07/31/23 at 1400 Start Infusion 07/31/2023 2:05 PM EDT 1,000 mL 500 mL/hr ondansetron (Zofran) tab 8 mg 8 mg, Oral, ONCE, On Thu07/31/23 at 1430, For 1 dose, Give 30 minutes prior to chemotherapy. Given 07/31/2023 2:12 PM EDT 8 mg documented in this [...] Healthcare Agent Relationshi p Communication Trixie Le [facility] Repr esentative (appointed verbally by patient or by statute hierarchy) [email or web address] Care Teams Home Economics Extension Worker Relationship Specialty Start Date End Date Kayla Reeder DO [address] [facility] [place]ST [place] [address] PCP - General Family Medicine 06/11/23 documented as of this encounter
--- OUTSIDE RECORDS SUMMARY | 2023-09-18 21:28 | External Medical Summary | Summary of Care ---
Author Name Unknown Organization [facility] Address [address] [place] [address] Phone [phone] Care Team Providers Care Environmental Planner Name Role Phone Kayla Reeder DO Primary Care Provider +1- [phone] Encounter Details Date Type Department Care Team (Late st Contact Info) Description 07/31/2023 Telephone Hematology/Oncology, [facility] [address] [place] [address] Mike Chaudhary MD [address] [place] [address] Allergies No known active allergiesdocumented [...] EDT [facility] LAB MONITORING DOCUMENTATION Farhad Franco [id number] Patient Phone Numbers Communication: Chart review Indication/Staging/Diagnosis Code: 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 Chaudhary Treatment: DA-EPOCH Cycle 2 Patient was educated by nurse specialist at start of treatment: Yes Patient was introduced to Chemotherapy Clinic: We are Pharmacists & Pharmacy Technicians, who are a part of hematology & oncology care across the [facility] offering telephone based appointments from the [...] labs due on Day 11 Radha Grimm Billing Representative III Hematology Oncology Oral Chemotherapy Clinic Medication Therapy Disease Management [facility] 08/03/2023 3:27 PM Time Spent on Encounter: < 5 minutes * Telephone Encounter - Radha Grimm CPhT - 07/31/2023 12:06 PM EDT [facility] [employer] 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 Chaudhary Treatment: DA-EPOCH Cycle 2 Patient [...] 8 Patient currently scheduled 08/03/23 @ 8:00am ([facility] lab) Radha Grimm Billing Representative III Hematology Oncology Oral Chemotherapy Clinic Medication Therapy Disease Management [facility] 07/31/2023 12:54 PM documented in this encounter Plan of Treatment Upcoming Encounters Date Type Department Care Team (Late st Contact Info) Description 08/06/2023 8:20 AM EDT Laboratory Laboratory, [facility] 400 [place] [address] [facility], Lab [address] [place] [address] 08/06/2023 9:30 AM EDT Office Visit Hematology/Oncology, [facility] 400 [place] [address] Lakeshia Stone CRNP 400 [facility] [place] [address] 08/10/2023 9:20 AM EDT Laboratory Laboratory [place] [address] [place] [phone] [place], Lab [address] 0648 [facility] [place] [address] 08/13/2023 11:45 AM EDT Appointment Radiology, [address] [address] 08/14/2023 9:00 AM EDT Laboratory Laboratory, [address] [address] [facility], Lab [address] [place] [address] 08/14/2023 10:00 AM EDT Telemedicine Hematology/Oncology, [address] [address] Mike Chaudhary MD [facility] [place] [address] Cart, Telemed [facility] Hem Onc Clinic [address] [place] [address] 08/14/2023 10:30 AM EDT Office Visit Palliative Medicine, [address] 5th [place] [address] Gabriella Florian CRNP [address] [place] [address] 08/17/2023 7:15 AM EDT Nurse Only Hematology Oncology [address] [address] [facility], Nurse Lab Hem/Onc [address] [place] [address] 08/17/2023 8:00 AM EDT Hem/Onc Treatment Hematology Oncology [place] [address] [place] [address] [place], Chair 20 Hem/Onc [facility] [place] [address] 08/17/2023 2:00 PM EDT Appointment Radiology, [address] [address] 08/19/2023 11:00 AM EDT Nurse Only Hematology/Oncology Treatment, [address] [address] [facility], Chair9 Hem Onc [address] [place] [address] 08/21/2023 9:00 AM EDT Nurse Only Hematology Oncology [facility]er Clinic, [address] [address] [facility], Nurse Lab Hem/Onc [address] [place] [address] 08/21/2023 10:00 AM EDT Hem/Onc Treatment Hematology Oncology [facility] [address] [address] [facility], Chair 18 Hem/Onc [address] [place] [address] 08/21/2023 2:00 PM EDT Appointment Radiology, [address] [address] 09/07/2023 2:00 PM EDT Appointment Radiology, [address] [address] 09/11/2023 2:00 PM EDT Appointment Radiology, [address] [address] 09/25/2023 2:40 PM EDT Office Visit Rheumatology [facility] [address] [facility] [place], [place] [address] Oliver Zhang MD [address] [facility] [place] [address] 02/19/2024 12:00 PM EST Office Visit Family [facility] [address] [place] [address] Kayla Reeder, DO [address] [facility] [place] [address] Health Maintenance Due Date Last Done Comments COVID-19 Vaccine (#1) 1993 Influenza Vaccine (FLU shot) (Season Ended) 2023 11/17/2016, 11/17/2016, 11/30/2015, Additional history exists Depression Screening 07/07/2024 07/08/2023, 06/11/19 24 Albumin/Creatinine Ratio Discontinued 08/02/2021 documented as of this encounter Medical Devices Implanted Type Area Raw Stock Dyeing Machine Tender Device Identifier Shelf Expiration Date Model / Serial / Lot Mediport Pwr Mri 8fr [id number] - [id number] Implanted:Qty : 1 on 07/17/2023 by Medhat Angel MD at OR [facility] Right: Chest CR BARD : PERIPHERAL VASCULAR 07/16/2024 [id number] / / [id number] Port Implant W8f Poly Cath - [id number] Implanted:Qty : 1 on 07/17/2023 by Medhat Angel MD at OR [facility] CR BARD : PERIPHERAL VASCULAR [id number] 07/16/2024 [id number] / / [id number] documented as of this encounter Advance Directives [...] Healthcare Agent Relationshi p Communication Trixie Bashir [facility] Care Repr esentative (appointed verbally by patient or by statute hierarchy) [email or web address] Care Teams Environmental Planner Relationship Specialty Start Date End Date Kayla Reeder DO [address] [facility] [place]ST [place] [id number] PCP - General Family Medicine 06/11/23 documented as of this encounter
--- OUTSIDE RECORDS SUMMARY | 2023-09-18 21:28 | External Medical Summary ---
Author Name Unknown Address Unknown Organization K1F:LABORATORY [facility] - [address] [address] Laboratory Report Ordering Provider Test Date Status MATTI BARAJAS 08/03/2023 08:21:24 Final Observation Date Value Abnormality Reference (Units ) Status LDH 08/03/2023 08:21:24 214 <=250 (U/L ) Final Results may be falsely eleva ketan due to hemolysis. Performing Location LABORATORY [facility] - [address] [address]
--- OUTSIDE RECORDS SUMMARY | 2023-09-18 21:28 | External Medical Summary ---
Author Name Unknown Address Unknown Organization K1F:LABORATORY [facility] - [address] [place] [address] Laboratory Report Ordering Provider Test Date Status MATTI BARAJAS 08/03/2023 08:21:24 Final Observation Date Value Abnormality Reference (Units ) Status WBC, Total 08/03/2023 08:21:24 5.59 4.00-10.80 (K/uL) Final RBC 08/03/2023 08:21:24 3.33 4.50-5.25 (M/uL) Final Hemoglobin 08/03/2023 08:21:24 10.1 Below low normal 14.0-16.8 (g/dL) Final HCT 08/03/2023 08:21:24 29.5 Below low normal 40.0-48.4 (%) Final MCV 08/03/2023 08:21:24 88.6 82.0-99.5 (fL) Final MCH 08/03/2023 08:21:24 30.3 27.0-34.0 (pg) Final MCHC 08/03/2023 08:21:24 34.2 32.0-36.0 (g/dL) Final RDW 08/03/2023 08:21:24 17.1 11.5-15.5 (%) Final Platelets 08/03/2023 08:21:24 170 140-400 (K/uL) Final MPV 08/03/2023 08:21:24 9.5 6.6-11.1 (fL) Final Nucleated erythrocytes/100 leukocytes [Ratio] in Blood by Automated count 08/03/2023 08:21:24 0 <=0 (/100 WBCs) Final Performing Location LABORATORY [facility] - [address] [address]
--- OUTSIDE RECORDS SUMMARY | 2023-09-18 21:29 | External Medical Summary | Summary of Care ---
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) Procedures PET CT SKULL BASE TO MID-THIGH FDG Mike Chaudhary MD [address] [place] [address] Referral ID Status Reason Start Date Expiration Date V isits Requested Visits Authorized [id number] Pending Review 08/10/2023 999 999 Reason for Visit * Reason Comments NEW PATIENT * Evaluate & Treat - Unlimited Visits (Within 3 days (urgent)) - Authorized Specialty Diagnoses / Procedures Referred By Kala villaseñor Referred To Contact Hematology/Oncology / Hematology Oncology Diagnoses Retroperitoneal mass Kayla Reeder DO [address] [place] [address] Referral ID Status Reason Start Date Expiration Date Visits Requested Visits Authorized [id number] Authorized Specialty Services Required 06/11/[phone] Encounter Details Date Type Department Care Team (Latest Contact Info) Description 07/27/2023 9:00 AM EDT Office Visit Hematology/Oncology , [address] [place] [address] Mike Chaudhary MD [address], [place] [id number] 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)*; Encounter for antineoplastic chemotherapy; Goals of care, counseling/discussion; Encounter to establish care with new doctor; Encounter to discuss test results; Encounter to discuss treatment options; Hospitalization within last 30 days; Frequent hospital admissions; 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 56 Tablet 07/24/2023 08/07/19 24 Active Lidocaine-Prilocain e 2.5-2.5 % External Cream [...] treatment only. 75 Tablet 5 07/27/2023 Active predniSONE 20 MG Oral Tablet (Deltasone)Indicati ons:Encounter for antineoplastic chemotherapy,Burkit t lymphoma of intra-abdominal lymph nodes (HCC) Take 7.25 Tablets by mouth in the morning and 7.25 Tablets before bedtime. Take twice a day with food on Days 1-5 of EPOCH treatment only. 60 Tablet 5 07/24/2023 07/27/19 24 Discontinu ed(Refill) Hospital, Clinic, or Other Facility Administered Medication Ordered Dose Route Frequency Start Date End Date Status etoposide (VEPESID) 240 mg, vinCRIStine sulfate 1.91 mg, DOXOrubicin (Adriamycin) 48 mg in NSS 1,500 mL infusion IV CONTINUOUS 07/24/2023 07/26/2023 Discontinued documented as of this encounter (statuses as of 07/28/2023) Active Problems Problem Noted Date Diagnosed Date [...] as of this encounter (statuses as of 07/28/2023) Resolved Problems Problem Noted Date Diagnosed Date [...] as of this encounter (statuses as of 07/28/2023) Immunizations Name Administration Dates Next Due DT [...] Sign Reading Time Taken Comments Blood Pressure 118/78 07/27/2023 8:53 AM EDT Pulse 80 07/27/2023 8:53 AM EDT Temperature 36.9 C (98.5 F) 07/27/2023 8:53 AM ED T Respiratory Rate - - Oxygen Saturation 99% 07/27/2023 8:53 AM EDT Inhaled Oxygen Concentration - - Weight 114.6 kg (252 lb 11.2 oz) 07/27/2023 8:53 AM EDT Height - - Body Mass Index 35.24 07/22/2023 9:20 AM EDT documented in this [...] Progress Notes * Mike Chaudhary MD - 07/27/2023 9:17 AM EDT Images from the original note were not included. Patient's Name: Farhad Franco MR #: [id number] : 1990 Today's date: 07/27/2023 PCP: Kayla Reeder DO Referring provider: Kayla Reeder DO Reason for referral: Retroperitoneal mass Hematology/Oncology diagnosis: BL (Burkitt lymphoma): (June 2023) Sporadic variant, associated with EBV infection (EBV DNA, QN PCR= 32207). Also, patient with remotehistory of immunosuppressive meds. NEGATIVE HIV. High risk (retroperitoneal abdominal mass, > 7cm, High LDH). [email or web address]/10.1200/[email or web address] Bulky disease (single mass >7 cm) Stage III (Retroperitoneal disease), with no bone marrow, or REVIEW COORDINATOR involvement (LP x 2, Rare atypicallymphocytes W/small lymphocytes favor reactive lymphomonocytosis, flow:no evidence of clonal or aberrant cells) Retroperitoneal biopsy; IHC: Aggressive CD10+ B-cell lymphoma with EBV expression. Ki-67 = 80-90%. Flow cytometry: [id number] B cell population expressing kappa light chains. FISH: t(8:14). 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) 06/25/2023 Initial Diagnosis B-cell lymphoma of intra-abdominal lymph nodes (HCC) 06/26/2023 - 07/09/2023 Chemotherapy CALGB 06005 Pre-Phase ONLY (1 Cycle/14 Days) [id number] 07/01/2023 - 07/01/2023 Chemotherapy OP CHOP-R every 21 days (Lymphoma) [id number] 07/02/2023 - 07/09/2023 Chemotherapy IP DA-EPOCH every 21 days (Lymphoma) [id number] 07/02/2023 - Supportive Therapy SCP - INTRATHECAL CHEMOTHERAPY (HEMATOLOGY) [id number] Plan Provider: Yaz Molina MD Treatment goal: Supportive Line of treatment: [No plan line of treatment] 07/24/2023 - Chemotherapy OP DA-EPOCH-R every 21 days (Clinic Administration 48hr EPOCH infusion) [id number] 07/27/2023 - 07/27/2023 Chemotherapy Outpatient DA R-EPOCH [facility] Health Administration (48hr EPOCH infusion) [id number] ECOG: Performance Status 1 = 80-90% Symptoms but nearly ambulatory History of present illness (at time of my initial evaluation on 07/27/2023 ): Farhad Franco is a 32 year old male , presented to my office today accompanied by his mother to establish care with outpatient life agent for evaluation, treatment of his newly diagnosed Burkittcell lymphoma. Patient lives 1 hour away from [facility]. He lives with his 4-year-old son. Patient is . He is on disability. Patient was admitted to [facility], and then transferred to [facility] because of Burkitt's lymphoma with hospital courses as below HOSPITAL COURSE (focused): - [facility] 06/20/2023 - 07/07/2023 (17 days): "Farhad Franco is 32 year old male with a past medical history significant for cerebral vasculitis (primary cerebral angiitis following Rheumatology in [place]) complicated by stroke at the age of7, migraine with aura, nephrolithiasis, petite mal seizures presented to [facility] with complaint of abdominal pain. Transferred from [facility] ER to [facility] to assess for IR biopsy in the setting of rapidly enlarging retroperitoneal mass on CT imaging. As per mother, he was on number of medications for his vasculitis like CellCept, Cytoxan, methotrexate from 1997 through 2014. Biopsy of retroperitoneal mass consistent with CD10 positive high-grade lymphoma with continued abdominal pain requiring morphine LACE MENDER pump. His uric acid was elevated s/p [...] 06/25/23, lumbar puncture 07/02/23" HOSPITAL COURSE (focused) [facility]- 07/12/2023 - 07/14/2023 (2 days): 32 yo male presents to the [facility] ED c/o headache. Found to be [...] mood 08/14/2009 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 Follows in [place] q6m Cerebrovascular accident (CVA) (HCC) Gastroesophageal reflux [...] performed by Laurence Dent MD at ENDOSCOPY [facility] EGD, FLEXIBLE, DIAGNOSTIC 02/05/2022 normal bx / ESOPHAGOGASTRODUODENOSCOPY (EGD), FLEXIBLE, TRANSORAL, DIAGNOSTIC performed by Laurence Dent MD at END[facility]COPY [facility] INFORMATION Arteriograms. INSER TUNN ACC DEV;5 YRS/OLDER Right 07/17/2023 INSERT TUNNELED CENTRAL VENOUS ACCESS WITH SUBQ PORT performed by Medhat Angel MD at OR [facility] IR BIOPSY 06/22/2023 MI ANESTH,OPEN HEAD SURGERY Social History Tobacco Use [...] birthday and new years Drug use: Never No family history on file. Current Outpatient Medications Medication Sig Dispense Refill [...] other nostril. 2 Each 3 Magic Swizzle (Ibwcctljk-Nlmfvcvi-Lnquwx) oral solution Swish and spit 15 mL [...] as needed for Nausea. 30 Tablet 0 predniSONE 20 MG Oral Tablet (Deltasone) Take 7.25 Tablets by mouth in the morning and 7.25 Tabletsbefore bedtime. Take twice a day with food on Days 1-5 of EPOCH treatment only. 60 Tablet 5 Sulfamethoxazole-Trimethoprim 400-80 MG Oral Tablet (Bactrim) Take 1 Tablet by mouth in the morning. Take 1 tab by mouth daily throughout all chemotherapy cycles.. 30 Tablet 5 Ondansetron HCl 8 MG Oral Tablet Take 1 Tablet by mouth every 8 hours as needed for Nausea. Take 2 tabs Daily for 4 days after starting chemotherapy. 8 Tablet 5 No current facility-administered medications for this visit. Review of patient's allergies indicates: No Known Allergies Physical exam: Vitals 07/20/2023 07/21/2023 07/22/2023 07/23/2023 07/24/2023 07/27/2023 Vitals BP 132/84 107/60 112/74 118/78 Pulse 82 64 89 80 Resp 20 16 18 Temp 36.6 C (97.9 F) 37 C (98.6 F) 36.3 C (97.4 F) 36.9 C (98.5 F) SpO2 98 % 98 % 98 % 99 % Weight 250 lb 9.6 oz 249 lb 12.8 oz 251 lb 9.6 oz 252 lb 10.4 oz Height 1.803 m (5' 11") 1.803 m (5' 11") BMI 34.97 34.86 Notes Notes Progress Notes Signed Kayla Reeder DO Addendum Note Signed Shannon Kendall RN Ancillary Progress Note Signed Cielo Reno TECH Nursing Progress Note Signed Laurel Gill RN Telephone Encounter Signed Shannon Kendall RN Patient Instructions Signed Lakeshia Stone CRNP Patient Instructions Signed Tegan Burleson LPN Progress Notes Sign when Signing Visit Tegan [...] orders placed or performed in visit on 07/27/23 COMPREHENSIVE METABOLIC PANEL Result Value Ref Range BUN 12 6 - 20 mg/dL Creatinine 0.9 0.6 - 1.2 mg/dL Estimated Glomerular Filtration Rate >90 >=60 mL/min Sodium 140 135 - 146 mmol/L Potassium 3.5 3.5 - 5.1 mmol/L Chloride 109 (H) 98 - 107 mmol/L CO2 23 22 - 32 mmol/L Anion Gap 8 7 - 15 mmol/L Glucose 96 70 - 120 mg/dL Albumin 4.1 3.8 - 5.0 g/dL AST 33 10 - 50 U/L Alkaline Phosphatase 93 35 - 130 U/L Bilirubin, Total <0.2 <=1.2 mg/dL Calcium 9.2 8.4 - 10.2 mg/dL Protein 6.7 6.0 - 8.3 g/dL ALT 46 10 - 50 U/L URIC ACID Result Value Ref Range Uric Acid 5.0 3.4 - 7.0 mg/dL LD Result Value Ref Range LD 304 (H) <=250 U/L CBC Result Value Ref Range WBC 4.67 4.00 - 10.80 K/uL RBC 3.44 4.50 - 5.25 M/uL HGB 10.6 (L) 14.0 - 16.8 g/dL HCT 31.0 (L) 40.0 - 48.4 % MCV 90.1 82.0 - 99.5 fL MCH 30.8 27.0 - 34.0 pg MCHC 34.2 32.0 - 36.0 g/dL RDW 16.8 11.5 - 15.5 % PLT 168 140 - 400 K/uL MPV 9.7 6.6 - 11.1 fL nRBCs 0 <=0 /100 WBCs DIFFERENTIAL, AUTOMATED Result Value Ref Range WBC 4.67 4.00 - 10.80 K/uL Neutrophils % 68.2 40.0 - 75.0 % Lymphocytes % 14.3 (L) 18.0 - 42.0 % Monocytes % 15.8 (H) 1.0 - 11.0 % Eosinophils % 0.0 0.0 - 6.0 % Basophils % 1.1 0.0 - 2.0 % Immature Granulocytes % 0.6 0.0 - 2.0 % Absolute Neutrophils 3.18 1.80 - 7.70 K/uL Absolute Lymphocytes 0.67 (L) 1.00 - 4.80 K/ul Absolute Monocytes 0.74 0.00 - 1.10 K/uL Absolute Eosinophils 0.00 0.00 - 0.70 K/uL Absolute Basophils 0.05 0.00 - 0.20 K/uL Absolute Immature Granulocytes 0.03 0.00 - 0.20 K/uL Imaging: FLUORO GUIDED CHEMO ADMIN INTO REVIEW COORDINATOR Result Date: 07/22/2023 IMPRESSION Successful fluoroscopy guided lumbar puncture and intrathecal chemotherapy administration without immediate complication. IR INTERVENTIONAL RADIOLOGY PROCEDURE IN OR Result Date: 07/17/2023 IMPRESSION: Successful placement of a chest power injectable medical port. MRI BRAIN W WO CONTRAST Result Date: 07/13/2023 IMPRESSION: No acute intracranial abnormality nor suspicious lesion. Chronic left LACE MENDER territory infarct. CTA HEAD/CTA NECK Result Date: [...] Retroperitoneum, CT guided fine needle aspiration: - [id number]-itczcanm B-cell lymphoma expressing EBV and t(8:14), consistent [...] and specimens are preparedfor cell blocks at [facility]. The cell blocks are submitted in cassettes A1/A3 and processed at [facility]./MZ Prepared by: Formalin fixation time: 10 hours [...] controls. CD3 stain background small sized T-cells. [place]-5 stains B-cells and is diffusely positive in [...] of Assessment: Telecytology used Onsite Personnel: Padmini Christo, DO Time: 12:37 Source: Retroperitoneum Part: [id number] Pass(es): 1 Adequacy: Less than optimal/Material collected [...] . Flow Interpretation Retroperitoneum core biopsy: - [id number]-zjcwzdaz B cell population expressing kappa light chains. [...] with a benign lymphoid population (linked report [id number]). Bone Marrow Aspirate Differential Value % Reference [...] with EBV infection (EBV DNA, QN PCR= 52916). Also, patient with remotehistory of immunosuppressive meds. NEGATIVE HIV. High risk (retroperitoneal abdominal mass, > 7cm, High LDH). [email or web address]://[email or web address]/doi/10.1200/[email or web address] Bulky disease (single mass >7 cm) Stage III (Retroperitoneal disease), with no bone marrow, or REVIEW COORDINATOR involvement (LP x 2, Rare atypicallymphocytes W/small lymphocytes favor reactive lymphomonocytosis, flow:no evidence of clonal or aberrant cells) Retroperitoneal biopsy; IHC: Aggressive CD10+ B-cell lymphoma with EBV expression. Ki-67 = 80-90%. Flow cytometry: OR86-xisquteh B cell population expressing kappa light chains. FISH: t(8:14). MYC/IgH/CEN8 t(8;14) Detected (82%), MYC (8q24) Rearrangement Detected (68%) (MYC chromosomal translocations +) S/P CALGB 1002 Pre-phase: Cyclophosphamide 200 mg/m2 IV days 1-5 (06/26/23-06/30/23) Prednisone 60 mg/m2 PO days 1-7 IT MTX 12 mg (07/02/23, 07/22/23) Plan: I have a very lengthy discussion with patient, and his mother about his current diagnosis, prognosis, treatment options. Patient has some degree of learning and cognitive disabilities, and his motheris supportive, and helping him. Most of the care is provided by his mother, who works from home as a [employer]. We discussed that Burkitts lymphoma is a [...] We also discussed that nvolvement of the REVIEW COORDINATOR occurs in up to 20% of cases ( but he was negative for REVIEW COORDINATOR involvement), and the bone marrow is involved [...] treatment with dose adjustedEPOCH-R, and IT methotrexate. Labs reviewed, ANC was 0.04 x1 after cycle 1 of REPOCH, so will proceed today with C2 D1, with samedose level as cycle 1. He should get labs twice weekly during treatment, and dose of R EPOCH to be adjusted based on his ANC as following; Each new cycle should be delayed until ANC is >1000/microL and platelet count is >100,000/microL. Doses of etoposide, doxorubicin, and cyclophosphamide are adjusted based upon the khurarm ANC and platelet counts: If khurram ANC [...] x 2 did not show evidence of REVIEW COORDINATOR involvement. So plan is to proceed with IT methotrexate on day1, day 5 of every cycle from cycle 3 to cycle 6. Currently his pain is well-controlled, he is following with palliative. Will order PET-CT after cycle 2 to evaluate treatment response. Surveillance upon complete response (after 6 cycles): CT C/A/P W contrast no more often than every 6 mo for 2 y after completion of treatment, then only as clinically indicated. D/W nursing, pharmacy teams. All patients, and his mother's questions answered to the level of their satisfaction. Plan PET CT Limited Skull Base to Mid Thigh FDG predniSONE 20 MG Oral Tablet (Deltasone) New Supportive Care Plan Treatment Ordered By: Hem/Onc --- Protocol: SCP - HYDRATION [id number] Alteration of Treatment Plan Check-out note: Ok for C2D1 chemo today with the [...] This chart was completed in part utilizing Access Intelligence Speech Voice Recognition Software. Grammatical errors, random word insertions, pronoun errors, and incomplete sentences are an occasional consequence of this system due to software limitations, ambient noise, and hardware issues. Any formal questions or concerns about the content, text, or information contained within the body of this dictation should be directly addressed to the provider for clarification. I spent a total time of 130 minutes on the date of service in preparation, delivery, and documentation of the care provided, excluding any time spent in the performance of separately billed services. Most of the time spent to review old records from [place], multiple recent hospitalizations, chemotherapy regimens, discussing with pharmacy and nursing staff, reviewing his labs, imaging, bone marrow biopsy, update his orders, and discussing the plan with patient, his mother. documented in this encounter Nursing Notes * Melvin Valiente MED ASSIST - 07/27/2023 8:58 AM EDT Patient identified by name and [...] activate it for you? ALREADY ACTIVE BP 118/78 (BP Site: Right Arm, BP Position: Sitting, BP Cuff Size: Regular) | Pulse 80 | Temp 36.9 C (98.5 F) (Tympanic) | Wt 114.6 kg (252 lb 11.2 oz) | SpO2 99% | BMI 35.24 kg/m | BSA 2.4 m Patient was instructed to not get [...] Care Team (Late st Contact Info) Description 07/29/2023 1:30 PM EDT Hem/Onc Treatment Hematology/Oncology Treatment, [address], [place] [address] [facility], Chair4 Hem Onc [address] [place] [address], [place] [address] 07/31/2023 12:30 PM EDT Laboratory Laboratory, [address], [place] [address] [facility], Lab [address] [place] [address], [place] [address] 07/31/2023 1:30 PM EDT Hem/Onc Treatment Hematology[address], [address] [address] [facility], Chair2 Hem Onc [address] [place], [place] [address] 08/03/2023 8:00 AM EDT Laboratory Laboratory, [address], [place] [address] [facility], Lab [address] [place] [address], [place] [address] 08/03/2023 9:00 AM EDT Immunization/Injection Hematology/[address]cology [address], [address] [address] [facility], Chair8 Hem Onc [address] [place], [place] [address] 08/06/2023 8:20 AM EDT Laboratory Laboratory, [address] [address] [facility], Lab [address] [place] [address] 08/06/2023 9:30 AM EDT Office Visit Hematology/Oncology, [address] [address] Lakeshia Stone CRNP [address] [place] [address] 08/10/2023 9:00 AM EDT Laboratory Laboratory, [address] [address] [facility], Lab [address] [place] [address] 08/13/2023 11:45 AM EDT Appointment Radiology, [address] [place] [address] 08/14/2023 9:00 AM EDT Laboratory Laboratory, [address] [place] [address] [facility], Lab [address] [place] [address] 08/14/2023 10:00 AM EDT Telemedicine Hematology/Oncology, [address] [place] [address] Mike Chaudhary MD [address] [place] [address] Herve Hurtadoed [facility] Hem Onc Clinic [address] [place] [address], [place] [address] 08/17/2023 7:15 AM EDT Nurse Only Hematology Oncology [facility], [address] [address] [place], Nurse Lab Hem/Onc [address] [place] [address] 08/17/2023 8:00 AM EDT Hem/Onc Treatment Hematology Oncology [facility], [address] [address] [place], Chair 20 Hem/Onc [address] [place] [address] 08/17/2023 1:00 PM EDT Office Visit Palliative Medicine, [address] [place] [address] Aury Silva MD [address] [place] [address] 08/17/2023 2:00 PM EDT Appointment Radiology, [address] [phone] 08/21/2023 9:00 AM EDT Nurse Only Hematology Oncology [facility], [address] [address] [place], Nurse Lab Hem/Onc [address] [place] [address] 08/21/2023 10:00 AM EDT Hem/Onc Treatment Hematology Oncology [facility], [address] [address] [place], Chair 18 Hem/Onc [address] [place] [address] 08/21/2023 2:00 PM EDT Appointment Radiology, [address] [phone] 08/26/2023 1:00 PM EDT Office Visit Sleep Disorders, [address] [address] Dave Daigle PA-C [address] [facility] [place] [address] 09/07/2023 2:00 PM EDT Appointment Radiology, [address] [address] 09/11/2023 2:00 PM EDT Appointment Radiology, [address] [address] 09/25/2023 2:40 PM EDT Office Visit Rheumatology [address] [place] [address] Oliver Zhang MD [address] [place] [address] [place], [place] [address] 02/19/2024 12:00 PM EST Office Visit Family Practice [address], [place] [address] [place] [address] Kayla Reeder DO [address] [place] [address] Scheduled Orders Name Type Priority Associated Diagnoses Orde r Schedule PET CT SKULL BASE TO MID-THIGH FDG Medical Imaging Routine Encounter for antineoplastic chemotherapy 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) Expected: 08/10/2023, Expires: 08/25/2024 Health Maintenance Due Date Last Done Comments COVID-19 Vaccine (#1) 1993 Influenza Vaccine (FLU shot) (Season Ended) 2023 11/17/2016, 11/17/2016, 11/30/2015, Additional history exists Depression Screening 07/07/2024 07/08/2023, 06/11/19 24 Albumin/Creatinine Ratio Discontinued 08/02/2021 documented as of this encounter Medical Devices Implanted Type Area Jukebox Coin Collector Device Identifier Shelf Expiration Date Model / Serial / Lot Mediport Pwr Mri 8fr [id number] - [id number] Implanted:Qty : 1 on 07/17/2023 by Medhat Angel MD at [facility] Right: Chest CR BARD : PERIPHERAL VASCULAR 07/16/2024 [id number] / / [id number] Port Implant W8f Poly Cath - [id number] Implanted:Qty : 1 on 07/17/2023 by Medhat Angel MD at OR [facility] CR BARD : PERIPHERAL VASCULAR [id number] 07/16/2024 [id number] / / [id number] documented as of this encounter Visit Diagnoses Diagnosis 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)- Primary Burkitt's tumor or lymphoma of intra-abdominal lymph nodes Encounter for antineoplastic chemotherapy Goals of care, counseling/discussion Other specified counseling Encounter to establish care with new doctor Other reasons for seeking consultation Encounter to discuss test results Other specified counseling Encounter to discuss treatment options Other specified counseling Hospitalization within last 30 days Frequent hospital admissions 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 p Communication Trixie Le [facility] Repr esentative (appointed verbally by patient or by statute hierarchy) [email or web address] Care Teams [employer] Consultant Relationship Specialty Start Date End Date Kayla Reeder DO [address] [facility] [facility] [place] [address] PCP - General Family Medicine 06/11/23 documented as of this encounter
--- OUTSIDE RECORDS SUMMARY | 2023-09-18 21:29 | External Medical Summary | Summary of Care ---
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) Procedures HI DOXORUBIC HCL 10 MG VL CHEMO HI VINCRISTINE SULFATE 1 MG INJ HI FOSAPREPITANT INJECTION HI ETOPOSIDE 10 MG INJ HI INJECTION, RITUXIMAB-PVVR, BIOSIMILAR, (RUXIENCE), 10 MG HI INJ, NYVEPRIA HI INJ, CYCLOPHOSPHAMIDE, NOS Wilfredo, Elvis Ray MD [address] [facility] [place] [address] Anc Hem/Onc [facility] [place] [address] Referral ID Status Reason Start Date Expiration Date V isits Requested Visits Authorized [id number] Authorized 07/23/2023 01/22/2024 999 999 Encounter Details Date Type Department Care Team (Latest Contact Info) Description 07/29/2023 1:30 PM EDT Hem/Onc Treatment Hematology/Oncolog y Treatment, [facility] [address] [facility] [place] [phone] [facility], Chair4 Hem Onc [address] [place] [address], [place] [address] Encounter for antineoplastic chemotherapy*; 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) Allergies No known active allergiesdocumented as of this encounter (statuses as of 07/30/2023) Medications Medication Sig Dispensed Refills Start Date [...] as of this encounter (statuses as of 07/30/2023) Active Problems Problem Noted Date Diagnosed Date [...] as of this encounter (statuses as of 07/30/2023) Resolved Problems Problem Noted Date Diagnosed Date [...] as of this encounter (statuses as of 07/30/2023) Immunizations Name Administration Dates Next Due DT [...] as of this encounter Nursing Notes * Lindasy Kendall RN - 07/29/2023 3:46 PM EDT Pt tolerated hydration without reported difficulty. Vss. Patient left IVC by ambulating. Accompanied by Family. Voiced no complaints. Lindsay Kendall RN 07/29/2023 3:46 PM * Lindsay Kendall RN - 07/29/2023 3:27 PM EDT [facility] Nursing Care Plan ID is not [...] Team (Late st Contact Info) Description 07/31/2023 12:30 PM EDT Laboratory Laboratory, [address], [place] [address] [facility], Lab [address] [place] [address], [place] [address] 07/31/2023 1:30 PM EDT Hem/Onc Treatment Hematology/Oncology Treatment, [address], [place] [address] [facility], Chair2 Hem Onc [address] [place] [address], [place] [address] 08/03/2023 8:00 AM EDT Laboratory Laboratory, [address], [place] [address] [facility], Lab [address] [place] [address], [place] [address] 08/03/2023 9:00 AM EDT Immunization/Injection Hematology/Oncology Treatment, [address], [place] [address] [facility], Chair8 Hem Onc [address] [place] [address], [place] [address] 08/06/2023 8:20 AM EDT Laboratory Laboratory, [address], [place] [address] [facility], Lab [address] [place] [address], [place] [address] 08/06/2023 9:30 AM EDT Office Visit Hematology/Oncology, [address], [place] [address] Lakeshia Stone CRNP [address] [place] [address], [place] [address] 08/10/2023 9:20 AM EDT Laboratory Laboratory [address], [place] [address] [place] [phone] [place], Lab [address] [place] [address] 08/13/2023 11:45 AM EDT Appointment Radiology, [address] [address] 08/14/2023 9:00 AM EDT Laboratory Laboratory, [address] [address] [facility], Lab [address] [place] [address] 08/14/2023 10:00 AM EDT Telemedicine Hematology/Oncology, [address] [address] Mike Chaudhary MD [address] [place] [address] [place], Telemed [facility] Hem Onc Clinic [address] [place] [address] 08/14/2023 10:30 AM EDT Office Visit Palliative Medicine, [address] 5th [place] [address] Aury Silva MD [address] [place] [address] 08/17/2023 7:15 AM EDT Nurse Only Hematology Oncology [place] [address] [place] [address] [place], Nurse Lab Hem/Onc [address] [place] [address] 08/17/2023 8:00 AM EDT Hem/Onc Treatment Hematology Oncology [facility], [address] [address] [place], Chair 20 Hem/Onc [address] [place] [address] 08/17/2023 2:00 PM EDT Appointment Radiology, [address] [phone] 08/19/2023 11:00 AM EDT Nurse Only Hematology/Oncology Treatment, [address] [address] [facility], Chair9 Hem Onc [address] [place] [address] 08/21/2023 9:00 AM EDT Nurse Only Hematology Oncology [facility]er [facility], [address] [address] [place], Nurse Lab Hem/Onc [address] [place] [address] 08/21/2023 10:00 AM EDT Hem/Onc Treatment Hematology Oncology [place] [facility], [address] [address] [place], Chair 18 Hem/Onc [address] [place] [address] 08/21/2023 2:00 PM EDT Appointment Radiology, [address] [phone] 08/26/2023 1:00 PM EDT Office Visit Sleep Disorders, [address] [id number] Dave Daigle PA-C [address] [place] [address] 09/07/2023 2:00 PM EDT Appointment Radiology, [address] [address] 09/11/2023 2:00 PM EDT Appointment Radiology, [place] [address] [place] [address] 09/25/2023 2:40 PM EDT Office Visit Rheumatology [place] [address] [facility] [place] [place] [address] Oliver Zhang MD [facility]0 [place], [place] [address] 02/19/2024 12:00 PM EST Office Visit Family Practice [facility], [place] [address] [place], [place] [phone] Kayla Reeder DO [address] [place] [address] Scheduled Orders Name Type Priority Associated Diagnoses [...] this encounter Medical Devices Implanted Type Area Dice Dealer Device Identifier Shelf Expiration Date Model / Serial / Lot Mediport Pwr Mri 8fr [id number] - [id number] Implanted:Qty : 1 on 07/17/2023 by Medhat Angel MD at [facility] Right: Chest CR BARD : PERIPHERAL VASCULAR 07/16/2024 [id number] / / [id number] Port Implant W8f Poly Cath - [id number] Implanted:Qty : 1 on 07/17/2023 by Medhat Angel MD at OR [facility] BARD : PERIPHERAL VASCULAR [id number] 07/16/2024 [id number] / / [id number] documented as of this encounter Visit Diagnoses [...] sulfate 1.9 mg, DOXOrubicin (Adriamycin) 48 mg [facility] 48 HOUR infusion Intravenous, [...] Agents on File Name Relationship Healthcare Agent [facility] p Communication Trixie D [facility] Repr esentative (appointed verbally by patient or by statute hierarchy) [email or web address] Care Teams Skin Grader Relationship Specialty Start Date End Date Kayla Reeder DO [address] [facility] [place] [address] PCP - General Family Medicine 06/11/23 documented as of this encounter
--- OUTSIDE RECORDS SUMMARY | 2023-09-18 21:29 | External Medical Summary ---
Author Name Unknown Address Unknown Organization K1F:LABORATORY [facility] - [address] [place] [address] Laboratory Report Ordering Provider Test Date Status ELISE SOTO 07/31/2023 11:06:34 Final Observation Date Value Abnormality Reference (Units ) Status Retic, % (auto) 07/31/2023 11:06:34 2.47 Above high normal 0.80-1.90 (%) Final Reticulocytes, Absolute 07/31/2023 11:06:34 89.7 31.3-100.1 (K/uL) Final Reticulocyte fraction, immature 07/31/2023 11:06:34 4.1 2.5-20.6 (%) Final Reticulocyte HGB 07/31/2023 11:06:34 35.9 29.7-37.4 (pg) Final Performing Location LABORATORY [facility] - [address] [place] [address]
--- OUTSIDE RECORDS SUMMARY | 2023-09-18 21:29 | External Medical Summary ---
Author Name Unknown Address Unknown Organization K1F:LABORATORY [facility] - [address] [address] Laboratory Report Ordering Provider Test Date Status MATTI BARAJAS 07/31/2023 11:06:34 Final Observation Date Value Abnormality Reference (Units ) Status LDH 07/31/2023 11:06:34 204 <=250 (U/L ) Final Performing Location LABORATORY [facility] - [address] [address]
--- OUTSIDE RECORDS SUMMARY | 2023-09-18 21:29 | External Medical Summary ---
Author Name Unknown Address Unknown Organization K1F:LABORATORY [facility] - [address] [place] [address] Laboratory Report Ordering Provider Test Date Status ELISE SOTO 07/31/2023 11:06:34 Final Observation Date Value Abnormality Reference (Units ) Status WBC, Total 07/31/2023 11:06:34 5.61 4.00-10.8 0 (K/uL) Final RBC 07/31/2023 11:06:34 3.63 4.50-5.25 (M/uL) Final Hemoglobin 07/31/2023 11:06:34 11.1 Below low normal 14 .0-16.8 (g/dL) Final Anemia reflex testing trigge rs on a HGB < 12.0 for Females and HGB < 13.0 for Males in accordance with the WHO Anemia Guidelines
Anemia reflex testing triggers on a HGB < 12.0 for Females and HGB < 13.0 for Males in accordance with the WHO Anemia Guidelines HCT 07/31/2023 11:06:34 31.3 Below low normal 40. 0-48.4 (%) Final MCV 07/31/2023 11:06:34 86.2 82.0-99.5 (fL) Final MCH 07/31/2023 11:06:34 30.6 27.0-34.0 (pg) Final MCHC 07/31/2023 11:06:34 35.5 32.0-36.0 (g/dL) Final RDW 07/31/2023 11:06:34 17.5 11.5-15.5 (%) Final Platelets 07/31/2023 11:06:34 205 140-400 (K /uL) Final MPV 07/31/2023 11:06:34 9.3 6.6-11.1 ( fL) Final Nucleated erythrocytes/100 leukocytes [Ratio] in Blood by Automated count 07/31/2023 11:06:34 0 <=0 (/100 WBCs) Final Performing Location LABORATORY [facility] - [address] [place] [address]
--- OUTSIDE RECORDS SUMMARY | 2023-09-18 21:29 | External Medical Summary ---
Author Name Unknown Address Unknown Organization K01:LABORATORY [facility] - [address] [place] [address] Laboratory Report Ordering Provider Test Date Status ELISE SOTO 07/31/2023 11:06:34 Final Observation Date Value Abnormality Reference (Units ) Status Parathyrin.intact [Mass/volume] in Serum or Plasma 07/31/2023 11:06:34 46 15-65 (pg/mL) Final Performing Location [facility] - [address] [place] [address]
--- OUTSIDE RECORDS SUMMARY | 2023-09-18 21:29 | External Medical Summary | Summary of Care ---
Author Name Unknown Organization [facility] Address [address] [place] [address] Phone [phone] Care Team Providers Care Lead Project Engineer Name Role Phone Kayla Reeder DO Primary Care Provider [phone]- [phone] Encounter Details Date Type Department Care Team (Late st Contact Info) Description 07/27/2023 Documentation Hematology/Oncology, [facility] [address] [place], [place] [phone] Sada Porras[address] [address] Allergies No known active allergiesdocumented as of this encounter (statuses as of 07/27/2023) Medications Medication Sig Dispensed Refills Start Date [...] as of this encounter (statuses as of 07/27/2023) Active Problems Problem Noted Date Diagnosed Date [...] as of this encounter (statuses as of 07/27/2023) Resolved Problems Problem Noted Date Diagnosed Date [...] as of this encounter (statuses as of 07/27/2023) Immunizations Name Administration Dates Next Due DT [...] as of this encounter Progress Notes * Sada Porras, [facility] - 07/27/2023 9:09 PM EDT Patient is following: Traditional dose adjusted protocol- Pharmacy will monitor labs and adjust dose levels based on protocol Monitoring Parameters Estimated ClCr = Serum creatinine: 0.9 mg/dL 07/27/23 0810 Estimated creatinine clearance: 148.9 mL/min EF (06/24/23): 55% Anthracycline cumulative dose: 104 mg (inclusive of cycle 1) = 41.98 mg/m2 (9% of 450 mg/m2 maximum) Hepatitis panel: Latest Reference Range & Units 06/24/23 16:18 06/25/23 08:20 Hepatitis A Antibody IgM Negative Negative HEPATITIS B SURFACE ANTIGEN Rpt Hepatitis B Surface Antigen Negative Negative Negative Hepatitis B Surface Antibody, Quantitative mIU/mL <3.5 HEPATITIS B SURFACE ANTIBODY Rpt Hepatitis B Surface Antibody, Interpretation NOT immune to Hepatitis B Virus Hepatitis B Surface Antibody, Qualitative Negative Hepatitis B Core Antibodies IgG and IgM Negative Negative Hepatitis B Core Antibody IgM Negative Negative Hepatitis C Antibody Negative Negative Rpt: View report in Results Review for more information Drug interaction assessment: Treatment plan and current medication list evaluated for drug-drug interactions. No clinically significant drug interaction identified Relevant Labs Latest Reference Range & Units 07/12/23 23:52 07/13/23 07:54 07/14/23 11:47 07/15/23 11:13 07/24/23 09:17 WBC 4.00 - 10.80 K/uL 0.47 (LL) 0.53 (LL) 0.99 5.20 4.54 (LL): Data is critically low Latest Reference Range & Units 07/14/23 04:48 07/15/23 11:13 07/24/23 09:17 Absolute Neutrophils 1.80 - 7.70 K/uL 0.04 (L) 2.03 3.25 (L): Data is abnormally low Latest Reference Range & Units 07/12/23 23:52 07/13/23 23:30 07/14/23 04:48 07/14/23 11:47 07/15/23 11:13 07/24/23 09:17 PLT 140 - 400 K/uL 79 (L) 74 (L) 71 (L) 74 (L) 107 (L) 177 (L): Data is abnormally low Labs drawn starting 3-4 days after previous cycle Day 5 chemotherapy: No, last cycle D5 = 07/06/23. 1st lab drawn on 07/12/23. Labs drawn twice weekly: No, will try to spread out next cycle Labs drawn 3-4 days apart: No, drawn 3 consecutive days, 07/12, 07/13, 07/14 then 07/23 Lab Parameters to Determine Level ANC < 500/L on 1 or 2 measurements (3-4 days apart) -- Maintain dose level Based on previous labs, dosing for this upcoming cycle will be: Doxorubicin 20 mg/m2 IV q48h on Days 1 and 3 , Etoposide 100 mg/m2 IV q48h on Days 1 and 3 , and Cyclophosphamide 750 mg/m2 IV once on Day 5 This cycle will be administered in the outpatient setting. 07/27/2023 Communicated upcoming cycle day 1 and day 8 to deliverer pharmacy team for upcoming lab monitoringvia Hem/Onc Oral Chemotherapy Pharmacist [place] [phone] with subject "Tech DA-EPOCH Lab Reminder Call" Current treatment Cycle Dates Dose Level C1 07/02/23 - 07/06/23 Level 1 C2 07/27/23 - 07/31/23 Level 1 Sada Porras Clinical Pharmacist [facility] 07/27/2023, 8:40 PM documented in this encounter Plan of Treatment Upcoming Encounters Date Type Department Care Team (Late st Contact Info) Description 07/29/2023 1:30 PM EDT Hem/Onc Treatment Hematology/[address], [address] [address] [facility], Chair4 Hem Onc [address] [place], [place] [address] 07/31/2023 12:30 PM EDT Laboratory Laboratory, [address] [phone] [facility], Lab [address] [place], [place] [address] 07/31/2023 1:30 PM EDT Hem/Onc Treatment Hematology/Oncology Treatment, [address] [address] [facility], Chair2 Hem Onc [address] [place], [place] [address] 08/03/2023 8:00 AM EDT Laboratory Laboratory, [address] [phone] [facility], Lab [address] [facility] [place] [address] 08/03/2023 9:00 AM EDT Immunization/Injection Hematology/Oncology Treatment, [address] [place] [address] [facility], Chair8 Hem Onc [address] [place] [address], [place] [address] 08/06/2023 8:20 AM EDT Laboratory Laboratory, [address] [place] [address] [facility], Lab [address] [place] [address], [place] [address] 08/06/2023 9:30 AM EDT Office Visit Hematology/Oncology, [address] [place] [address] Lakeshia Stone CRNP [address] [place] [address], [place] [address] 08/10/2023 9:00 AM EDT Laboratory Laboratory, [address] [place] [address] [facility], Lab [address] [place] [address], [place] [address] 08/10/2023 10:00 AM EDT Office Visit Hematology/Oncology, [address] [place] [address] Ritika Godfrey CRNP [address] [place] [address], [place] [address] 08/12/2023 2:00 PM EDT Appointment Radiology, [address] [place] [address] 08/13/2023 11:00 AM EDT Laboratory Laboratory, [address] [address] [facility], Lab [address] [place] [address] 08/13/2023 11:45 AM EDT Appointment Radiology, [address] [address] 08/17/2023 9:00 AM EDT Laboratory Laboratory, [address] [address] [facility], Lab [address] [place] [address] 08/17/2023 10:00 AM EDT Telemedicine Hematology/Oncology, [address] [address] Mike Chaudhary MD [address] [place] [address] [place], Telemed [facility] Hem Onc Clinic [address] [place] [address] 08/17/2023 10:30 AM EDT Hem/Onc Treatment Hematology/Oncology Treatment, [address] [address] [facility], Chair5 Hem Onc [address] [place] [address] 08/17/2023 1:00 PM EDT Office Visit Palliative Medicine, [address] [place] [address] Aury Silva MD [address] [facility] [place] [address] 08/26/2023 1:00 PM EDT Office Visit Sleep Disorders, [facility] [address] [facility] [place] [address] Dave Daigle PA-C [address] [place] [address] 09/25/2023 2:40 PM EDT Office Visit Rheumatology [place] [address] [employer] [place], [place] [address] Oliver Zhang MD [facility] [employer] [place], [place] [address] 02/19/2024 12:00 PM EST Office Visit Family Practice [address] [place] [address] [place] [address] Kayla Reeder DO [address] [place] [address] Health Maintenance Due Date Last Done Comments COVID-19 Vaccine (#1) 1993 Influenza Vaccine (FLU shot) (Season Ended) 2023 11/17/2016, 11/17/2016, 11/30/2015, Additional history exists Depression Screening 07/07/2024 07/08/2023, 06/11/19 24 Albumin/Creatinine Ratio Discontinued 08/02/2021 documented as of this encounter Medical Devices Implanted Type Area File Clerk Data Entry Device Identifier Shelf Expiration Date Model / Serial / Lot Mediport Pwr Mri 8fr [id number] - [id number] Implanted:Qty : 1 on 07/17/2023 by Medhat Angel MD at OR [facility] Right: Chest CR BARD : PERIPHERAL VASCULAR 07/16/2024 [id number] / / [id number] Port Implant W8f Poly Cath - [id number] Implanted:Qty : 1 on 07/17/2023 by Medhat Angel MD at OR [facility] BARD : PERIPHERAL VASCULAR [id number] 07/16/2024 [id number] / / [id number] documented as of this encounter Advance Directives [...] Agents on File Name Relationship Healthcare Agent [facility] p Communication Trixie Le [facility] Repr esentative (appointed verbally by patient or by statute hierarchy) [email or web address] Care Teams Lead Project Engineer Relationship Specialty Start Date End Date Kayla Reeder DO [address] [facility] [place] [address] PCP - General Family Medicine 06/11/23 documented as of this encounter
--- OUTSIDE RECORDS SUMMARY | 2023-09-18 21:29 | External Medical Summary ---
Author Name Unknown Address Unknown Organization K01:LABORATORY [facility] - [address] [place] [address] Laboratory Report Ordering Provider Test Date Status ELISE SOTO 07/31/2023 11:06:34 Final Observation Date Value Abnormality Reference (Units ) Status Iron 07/31/2023 11:06:34 327 Above high normal 45-176 (ug/dL) Final Iron-binding capacity 07/31/2023 11:06:34 327 250-425 (ug/dL) Final Transferrin Sat % 07/31/2023 11:06:34 100 Above high normal 15-55 (%) Final Performing Location LAB[facility]ORY [facility] - [address] [place] [address]
--- OUTSIDE RECORDS SUMMARY | 2023-09-18 21:29 | External Medical Summary ---
Author Name Unknown Address Unknown Organization K1F:LABORATORY [facility] - [address] [facility] [place] [address] Laboratory Report Ordering Provider Test Date Status ELISE SOTO 07/31/2023 11:06:34 Final Observation Date Value Abnormality Reference (Units ) Status SYNC LEUKOCYTES IN BLOOD BY AUTOMATED COUNT 07/31/2023 11:06:34 5.61 4.00-10.80 (K/uL) Final Segs 07/31/2023 11:06:34 86.1 Above high normal 40.0-75.0 (%) Final Lymphs % 07/31/2023 11:06:34 4.8 Below low normal 18.0-42.0 (%) Final Monos 07/31/2023 11:06:34 8.0 1.0-11.0 (%) Final Eosinophils 07/31/2023 11:06:34 0.0 0.0-6.0 (%) Final Basos 07/31/2023 11:06:34 0.0 0.0-2.0 (%) Final Immature Granulocyte, Percent 07/31/2023 11:06:34 1.1 0.0-2.0 (%) Final Absolute Segs 07/31/2023 11:06:34 4.83 1.80-7.70 (K/uL) Final Lymphs, absolute 07/31/2023 11:06:34 0.27 Below low normal 1.00-4.80 (K/ul) Final Monos, Abs 07/31/2023 11:06:34 0.45 0.00-1.10 (K/uL) Final Eos, Abs 07/31/2023 11:06:34 0.00 0.00-0.70 (K/uL) Final Basos, Abs 07/31/2023 11:06:34 0.00 0.00-0.20 (K/uL) Final Immature Granulocytes, Number 07/31/2023 11:06:34 0.06 0.00-0.20 (K/uL) Final Performing Location LABORATORY [facility] - [address] [place], [place] [address]keyonna [address]. [place] [address]
--- OUTSIDE RECORDS SUMMARY | 2023-09-18 21:29 | External Medical Summary ---
Author Name Unknown Address Unknown Organization K01:LABORATORY [facility] - [address] [place] [address] Laboratory Report Ordering Provider Test Date Status ELISE SOTO 07/31/2023 11:06:34 Final Observation Date Value Abnormality Reference (Units ) Status Ferritin 07/31/2023 11:06:34 789 Above high normal 30 -400 (ng/mL) Final Performing Location LAB[facility] - [address] [place] [address]
--- OUTSIDE RECORDS SUMMARY | 2023-09-18 21:29 | External Medical Summary | Summary of Care ---
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 Name Role Phone Kayla Reeder DO Primary Care Provider [phone] Reason for Visit * Reason Comments Follow Up Encounter Details Date Type Department Care Team ([facility] st Contact Info) Description 07/24/2023 10:00 AM EDT Office Visit Hematology/Oncology, [facility] [address] [place] [address] Lakeshia Stone CRNP [address] [place] [address] Hypokalemia*; Need for case management follow-up; 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 90 Capsule 1 4 Active Loratadine 10 MG Oral Tablet (Claritin)Indic ations:Chronic cough Take 1 Tablet by mouth in the morning. 30 Tablet 11 4 Active Celecoxib 200 MG Oral Capsule (CeleBREX)Indic ations:Migraine with aura and without status migrainosus, not intractable Take 1 Capsule by mouth in the morning. Every morning.. 30 Capsule 3 4 Active Pantoprazole Sodium 40 MG Oral Tablet Delayed Release (Protonix)Indic ations:Gastroes ophageal reflux disease with esophagitis without hemorrhage TAKE ONE TABLET BY MOUTH EVERY MORNING 30 MINUTES BEFORE THE FIRST MEAL OF THE DAY. DO NOT CRUSH,SPLIT OR CHEW THE TABLET 30 Tablet 5 4 Active Proventil HFA 108 (90 Base) MCG/ACT Inhalation Aerosol SolutionIndicat ions:Chronic cough Inhale 2 Puffs by mouth every 4 hours as needed for Wheezing, Shortness of Breath or Cough. 18 g 1 4 Active Fluticasone-Madi meterol 250-50 MCG/ACT Inhalation Aerosol Powder Breath Activated (Advair Diskus)Indicati ons:Chronic cough INHALE ONE PUFF BY MOUTH EVERY MORNING AND ONE PUFF BEFORE BEDTIME 60 Each 5 4 Active HYDROmorphone HCl 2 MG Oral Tablet (Dilaudid) Take 1.5 Tablets by mouth every 4 hours as needed for moderate or severe pain 100 Tablet 4 Active Sulfamethoxazol e-Trimethoprim 400-80 MG Oral Tablet (Bactrim) Take 1 Tablet by mouth in the morning. 30 Tablet 1 4 Active Sennosides-Docu sate Sodium 8.6-50 MG Oral Tablet (Senokot-S) Take [...] 2 Each 3 4 Active Magic Swizzle (Lidocaine-[place] dryl-Maalox) oral solution Swish and spit 15 mL 4 times a day as needed for Sore throat (oral pain). 900 mL 4 Active Prochlorperazin e Maleate 5 MG Oral Tablet (Compazine)Michelle cations:Chemoth erapy induced nausea and vomiting Take 1 Tablet by mouth every 8 hours as needed for Nausea. 30 Tablet 4 Active Buprenorphine HCl 2 MG Sublingual Tablet Sublingual (Subutex)Indica tions:Cancer related pain Place 0.5 Tablets under the tongue in the morning and 0.5 Tablets in the evening. 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 60 Tablet 1 4 Active Potassium Chloride Ashley ER 10 MEQ Oral Tablet Extended ReleaseIndicati ons:Hypokalemia Take 2 Tablets by mouth in the morning and 2 Tablets before bedtime. Do all this for 14 days. 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 When ANC less than 500. 30 Tablet 4 Active Ondansetron HCl 4 MG Oral TabletIndicatio ns:Need for case management follow-up,Burki tt lymphoma of intra-abdominal lymph nodes (HCC) Take 1 Tablet by mouth every 6 hours as needed for Nausea. 30 Tablet 4 Active Fluconazole 200 MG Oral Tablet (Diflucan) Take 2 Tablets by mouth in the morning. 60 Tablet 1 4 07/24/19 24 Discontinued(Ref ill) Allopurinol 300 MG Oral Tablet (Zyloprim) Take 1 Tablet by mouth daily in the morning. 30 Tablet 1 4 07/24/19 24 Discontinued(Ref ill) Ondansetron HCl 4 MG Oral TabletIndicatio ns:Need for case management follow-up,Burki tt lymphoma of intra-abdominal lymph nodes (HCC) Take 1 Tablet by mouth every 6 hours as needed for Nausea. 30 Tablet 4 07/24/19 24 Discontinued(Ref ill) levoFLOXacin 750 MG Oral Tablet (Levaquin) Take 1 Tablet by mouth in the morning. 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 30 Tablet 4 07/24/19 24 Discontinued Ondansetron HCl 4 MG Oral TabletIndicatio ns:Need for case management follow-up,Burki tt lymphoma of intra-abdominal lymph nodes (HCC) Take 1 Tablet by mouth every 6 hours as needed for Nausea. 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 30 Tablet 2 4 07/24/19 24 Discontinued documented as of this encounter (statuses as of 07/29/2023) Active Problems 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 Overview: Follows in [place] q6m History of petit-mal seizures 03/07/2016 Tobacco use disorder 01/01/2016 Migraine with aura and witho ut status migrainosus, not intractable 12/18/2014 Gastroesophageal reflux disease with esophagitis 12/18/2014 Adjustment disorder with depressed mood 08/15/19 10 documented as of this encounter (statuses as of 07/29/2023) Resolved Problems Problem Noted Date Diagnosed Date [...] as of this encounter (statuses as of 07/29/2023) Immunizations Name Administration Dates Next Due DT [...] Reading Time Taken Comments Blood Pressure 112/74 07/24/2023 9:53 AM EDT Pulse 89 07/24/2023 9:53 AM EDT Temperature 36.3 C (97.4 F) 07/24/2023 9:53 AM ED T Respiratory Rate 18 07/24/2023 9:53 AM EDT Oxygen Saturation 98% 07/24/2023 9:53 AM EDT Inhaled Oxygen Concentration - - Weight 114.1 kg (251 lb 9.6 oz) 07/24/2023 9:53 AM EDT Height - - Body Mass Index 35.09 07/22/2023 9:20 AM EDT documented in this [...] this encounter Patient Instructions * Patient Instructions* Lakeshia Stone CRNP - 07/24/2023 10:49 AM EDT Day 1: Thursday In the clinic, for rituxumab infusion and bag commissary superintendent for etoposide Day 3: Thursday In the clinic, for etoposide bag change Day 5: Thursday In the clinic, for bag disconnection and cytoxan infusion in the infusion Day 8: following Thursday In the clinic, for pegfilgrastin injection to help support blood counts documented in this encounter Progress Notes * Lakeshia Stone CRNP - 07/24/2023 9:38 AM EDT Hematology/Oncology Outpatient Clinic note [facility]On[facility], [address] [address] Name: Farhad Franco Date: 07/24/2023 CHIEF COMPLAINT: Farhad Franco is a 32 year old male patient of Dr. Mike Chaudhary here today for f/u visit today. From Patient chart confirmed with patient. From Lakeshia ZARAGOZA note 07/24/2023. 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 CURRENT TREATMENT*: R- EPOCH x1 on 07/02/2023 - 07/06/2023 with G-CSF on 07/09/2023 Completed inpatient at [facility] DA-R-EPOCH every 21 days with G-CSF support Outpatient plan to start 07/27/2023 Treatment Days 1-5, G-CSF Day 8 Intrathecal Methotrexate (21 day cycle) First treatment 07/02/2023 while inpatient at [facility] Second treatment 07/22/2023 Supportive Medications: Acyclovir 400 mg twice daily Fluconazole 400 mg daily Bactrim 400-80 mg once daily Allopurinol 300 mg daily Needs Levofloxacin once ANC <500 ONCOLOGY HISTORY: 32-year-old white male with recently diagnosed EBV positive Burkitt lymphoma having developed worsening headaches starting evening prior to admission unlike the usual pain he experienced from cerebral vasculitis in the past. Headache is frontal in center of his head instead of posterior. On evaluation in the ED was found to be leukopenic CT of the head revealed cerebrovascular irregularities withstenosis similar to previous studies with no history of evidence of acute pathology.. LP workup forCSF involvement with lymphoma was negative MRI was suggested. Past history is significant for cerebral vasculitis since 6 years old, hypertension, petit mal seizures and recent diagnosis of intra-abdominal CD 10 positive high-grade Burkitt lymphoma after biopsyof retroperitoneal mass. Bone marrow was negative for lymphomatous involvement. He was started on pre phase chemotherapy with Cytoxan and prednisone while his pathology finalized. Mild tumor lysis syndrome was controlled with rasburicase on allopurinol with pathology finally finalized with FISH showing MYC positive confirming Burkitt's lymphoma. He was then started on dose adjusted R- EPOCH from 07/01 2023 through 07/06/2023 which he tolerated well. There was no evidence of testicular or ocularinvolvement. LP with intrathecal methotrexate on 07/02/2023 with CSF negative for lymphoma. Becauseof a question of pneumonia he was started on a 10 day course of Augmentin and Cipro and discharged on antibiotics. Pegfilgrastim 6 mg was given on 07/09/2023 at [facility]. Headache is less severe. Patient denies nausea or vomiting but does have a sore throat without diarrhea. Patient denies peripheral paresthesias, cough, shortness of breath, abdominal pain, lower extremity swelling or redness, PND, orthopnea, palpitations. Patient denies peripheral paresthesias. HOSPITAL COURSE (focused): 06/20/2023 - 07/07/2023 Mr. Franco was admitted to medicine 06/19 [...] see a AP in clinic on 07/14. INTERVAL HISTORY: 07/24/2023 - He was recently admitted and transferred to [facility] 06/20/2023 - 07/07/2023 during which biopsy resultsdemonstrated aggressive CD10+ B cell lymphoma, with FISH showing MYC+, confirming Burkitt's Lymphoma. CSF was negative for lymphoma. He started treatment inpatient with R-EPOCH and IT Methotrexate. 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 Overall he feels that he did well while in the hospital. Since discharge he has been experiencing chills, hot flashes, nausea, vomiting, and headaches accompanied by light sensitivity and dizziness. When he experiences t he hot flashes he states he also feels SOB and like his chest is tight. His mom gave him 8 mg of zofran once to try and help his nausea because 4 mg was not working - do not believe the doubled dose helped either, his mother shares that the only thing that worked in the hospital was Compazine - which he received IV while inpatient at [facility]. Appetite has been very poor, mostly snacking. Drinks maybethree bottles of Gatorade a day, unsure of how many ounces they are. Has been experiencing a lot ofdifficulty swallowing pills, takes them one at a time and spaces them out throughout the entire day. He threw up his pills once and vomited after eating a yogurt. Has not been been able to eat much because his sense of taste has changed, especially meat. Noted approximately 25 pound weight loss over the past month. Reports that he has been having "diarrhea" or loose BM every day for a long time - had a lot of difficulty with constipation in the past and has a bowel-regimen at home that prevents it - has resulted in softener bowel movements. Has some left forearm pain where an IV infiltrated. Denies fevers, vision changes, new arthralgias or myalgias, rash, pruritus, mouth ulcers, chest pain, palpitations, lower extremity edema, abdominal pain, early satiety, bloating, constipation, hematuria, melena, and hematochezia. HISTORY OF PRESENT ILLNESS: Farhad Franco is a 32 year old male with a history as outlined above. Currently here for f/u visit today, accompanied by his mother. He received his second treatment with IT MTX on 07/22/2023 under fluoroscopy, mother states it took several attempts before they got it and is concerned if it willalways be a difficult process and if there are alternatives. He had difficulty walking due to pain after the procedure. Continues with occasional night sweats and soft to loose stools on his current bowel regimen. He and his mom explain that another provider told them to stop taking Acyclovir and Potassium replacement, still has both at home. Nausea has been well controlled using zofran, eating and drinking normally - shares that he was able to eat a whole steak yesterday after not being able to tolerate meat last week. Weight stable today. He and his mom refuse to take Zyprexa for nausea control, are very unhappy with the list of potential side effects that they read and do not want to start it unless he needs it and there are no other options. Has not been taking Compazine. Otherwise nonew symptoms or concerns since our office visit last week. Denies fevers, headaches, vision changes, dizziness, new arthralgias or myalgias, rash, pruritus, mouth ulcers, SOB/MAHAN, chest pain or tightness, palpitations, lower extremity edema, abdominal pain, early satiety, bloating, vomiting, constip ation, dysuria, hematuria, melena, and hematochezia. Past Medical History: Diagnosis Date Adjustment disorder with depressed mood 08/14/2009 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 Follows in [place] q6m Cerebrovascular accident (CVA) (HCC) Gastroesophageal reflux [...] by Laurence Dent MD at ENDOSCOPY [facility] EGD, FLEXIBLE, DIAGNOSTIC 02/05/2022 normal bx / ESOPHAGOGASTRODUODENOSCOPY (EGD), FLEXIBLE, TRANSORAL, DIAGNOSTIC performed by Laurence Dent MD at ENDOSCOPY [facility] INFORMATION Arteriograms. INSER TUNN ACC DEV;5 YRS/OLDER Right 07/17/2023 INSERT TUNNELED CENTRAL VENOUS ACCESS WITH SUBQ PORT performed by Medhat Angel MD at OR [facility] IR BIOPSY 06/22/2023 [place] ANESTH,OPEN HEAD SURGERY Social History Socioeconomic History [...] Social Determinants of Health Financial Resource Strain: Not on file Food Insecurity: Food Insecurity Present (07/08/2023) Hunger Vital Sign Worried About Running Out of Food in the Last Year: Never true Ran Out of Food in the Last Year: Sometimes true Transportation Needs: Not on file Physical Activity: Not on file Stress: Not on file Social Connections: Not on file Intimate Partner Violence: Not on file Housing Stability: Not on file Review of patient's allergies [...] mouth in the morning. 60 Tablet 1 Sennosides-Docusate Sodium 8.6-50 MG Oral Tablet (Senokot-S) Take 2 Tablets by mouth in the morningand 2 Tablets in the evening. 60 Tablet 1 Allopurinol 300 MG Oral Tablet (Zyloprim) Take 1 Tablet by mouth daily in the morning. 30 Tablet 1 Naloxone HCl 4 MG/0.1ML Nasal Liquid (Narcan Nasal) Administer 1 nasal spray device into one nostril as needed for suspected opioid overdose. Seek medical help immediately. If no response after 2-3 minutes, administer second nasal spray device in other nostril. 2 Each 3 Ondansetron HCl 4 MG Oral Tablet Take 1 Tablet by mouth every 6 hours as needed for Nausea. 30 Tablet 0 levoFLOXacin 750 MG Oral Tablet (Levaquin) Take 1 Tablet by mouth in the morning. 30 Tablet 0 Magic Swizzle (Mdbdoejuy-Gelpkwej-Fjfrur) oral solution Swish and spit 15 mL [...] HPI - otherwise negative OBJECTIVE: Filed Vitals: 07/24/23 0953 BP: 112/74 Pulse: 89 Resp: 18 Temp: 36.3 C (97.4 F) TempSrc: Tympanic SpO2: 98% Weight: 114.1 kg (251 lb 9.6 oz) Wt Readings from Last 5 Encounters: 07/24/23 114.1 kg (251 lb 9.6 oz) 07/22/23 113.3 kg (249 lb 12.8 oz) 07/20/23 113.7 kg (250 lb 9.6 oz) 07/17/23 112.9 kg (249 lb) 07/15/23 113.4 kg (249 lb 14.4 oz) PHYSICAL EXAM: ECOG: Performance [...] orders placed or performed in visit on 07/24/23 COMPREHENSIVE METABOLIC PANEL Result Value Ref Range BUN 15 6 - 20 mg/dL Creatinine 0.9 0.6 - 1.2 mg/dL Estimated Glomerular Filtration Rate >90 >=60 mL/min Sodium 141 135 - 146 mmol/L Potassium 3.1 (L) 3.5 - 5.1 mmol/L Chloride 107 98 - 107 mmol/L CO2 21 (L) 22 - 32 mmol/L Anion Gap 13 7 - 15 mmol/L Glucose 122 (H) 70 - 120 mg/dL Albumin 4.2 3.8 - 5.0 g/dL AST 30 10 - 50 U/L Alkaline Phosphatase 103 35 - 130 U/L Bilirubin, Total 0.2 <=1.2 mg/dL Calcium 9.6 8.4 - 10.2 mg/dL Protein 6.8 6.0 - 8.3 g/dL ALT 47 10 - 50 U/L URIC ACID Result Value Ref Range Uric Acid 6.9 3.4 - 7.0 mg/dL LD Result Value Ref Range LD 224 <=250 U/L CBC Result Value Ref Range WBC 4.54 4.00 - 10.80 K/uL RBC 3.74 4.50 - 5.25 M/uL HGB 11.5 (L) 14.0 - 16.8 g/dL HCT 32.9 (L) 40.0 - 48.4 % MCV 88.0 82.0 - 99.5 fL MCH 30.7 27.0 - 34.0 pg MCHC 35.0 32.0 - 36.0 g/dL RDW 16.4 11.5 - 15.5 % PLT 177 140 - 400 K/uL MPV 9.8 6.6 - 11.1 fL nRBCs 0 <=0 /100 WBCs DIFFERENTIAL, AUTOMATED Result Value Ref Range WBC 4.54 4.00 - 10.80 K/uL Neutrophils % 71.6 40.0 - 75.0 % Lymphocytes % 12.1 (L) 18.0 - 42.0 % Monocytes % 14.8 (H) 1.0 - 11.0 % Eosinophils % 0.0 0.0 - 6.0 % Basophils % 0.4 0.0 - 2.0 % Immature Granulocytes % 1.1 0.0 - 2.0 % Absolute Neutrophils 3.25 1.80 - 7.70 K/uL Absolute Lymphocytes 0.55 (L) 1.00 - 4.80 K/ul Absolute Monocytes 0.67 0.00 - 1.10 K/uL Absolute Eosinophils 0.00 0.00 - 0.70 K/uL Absolute Basophils 0.02 0.00 - 0.20 K/uL Absolute Immature Granulocytes 0.05 0.00 - 0.20 K/uL IMAGING: FLUORO GUIDED CHEMO ADMIN INTO MANAGER MAIL Result Date: 07/22/2023 IMPRESSION Successful fluoroscopy guided lumbar puncture and intrathecal chemotherapy administration without immediate complication. IR INTERVENTIONAL RADIOLOGY PROCEDURE IN OR Result Date: 07/17/2023 IMPRESSION: Successful placement of a chest power injectable medical port. MRI BRAIN W WO CONTRAST Result Date: 07/13/2023 IMPRESSION: No acute intracranial abnormality nor suspicious lesion. Chronic left PHOTONICS ENGINEERING TECHNICIAN territory infarct. CTA HEAD/CTA NECK Result [...] to discuss test results Reviewed results of CBC/diff, CMP, LDH, and Uric Acid with the patient and his parents today ANC 0.58 --> 1.92 --> 3.25 Hgb 10.3 --> 11.3 --> 11.5 PLT 71 --> 107 --> 177 Mobile Tester 1.0 --> 0.9 GFR >90 K 3.9 --> 3.7 --> 3.3 --> 3.1 AST 26 --> 30 ALT 36 --> 47 Uric Acid 3.8 --> 4.5 --> 6.9 LDH 204 --> 362 --> 224 Adding Magnesium to today's blood work Okay for C2D1 of DA-EPOCH-R to start 07/27/2023 Labs twice weekly: CBC/diff, CMP, Uric Acid and LDH UA to be processed on treatment Day 1 Second IT Chemo completed at [facility] 07/22/2023 Next scheduled 08/12/2023 Reviewed how to take all take home medications in the [place] Plan and supportive medications Emphasized need to take prednisone in the morning prior to arriving for treatment Reviewed all blood work and urine sample required prior to provider visit and treatment on Thursday07/27/2023 Continue Zofran for PRN nausea and vomiting Ordered Emla cream to used on port 1 hour prior to accessing Continue and do not stop taking supportive medications as prescribed - verified and refilled all supportive medications Allopurinol, Fluconazole, Bactrim and Acyclovir Levaquin for when ANC < 500 Completed Cycle 1 da-R-EPOCH 07/02/2023 - 07/06/2023, pegfilgrastim 6 mg subcutaneously given on 07/09/2023 Start Potassium Chloride 20 mEq BID for hypokalemia Mediport inserted 07/17/2023 Palliative Medicine following, next appointment 07/27/2023 RTC as scheduled with Dr. Chaudhary, with CBC/diff, CMP, Uric Acid, UA and LDH [facility] documented in this encounter Nursing Notes * Vida Lopez MED ASSIST - 07/24/2023 9:54 AM EDT ROOM 6 Chief Complaint Patient presents with Follow Up Filed Vitals: 07/24/23 0953 BP: 112/74 Pulse: 89 Resp: 18 Temp: 36.3 C (97.4 F) TempSrc: Tympanic SpO2: 98% Weight: 114.1 kg (251 lb 9.6 oz) Patient was instructed to not get [...] comprehension of instructions. documented in this encounter Miscellaneous Notes * Addendum Note - Lakeshia Stone CRNP - 07/29/2023 1:28 PM EDTAddended by: LAKESHIA STONE on: 07/29/2023 01:28 PM Modules accepted: Orders documented in this encounter Plan of Treatment Upcoming Encounters Date Type Department Care Team (Late st Contact Info) Description 07/31/2023 12:30 PM EDT Laboratory Laboratory, [address], [place] [address] [facility], Lab [address] [place] [address] 07/31/2023 1:30 PM EDT Hem/Onc Treatment Hematology[address] [address] [facility], Chair2 Hem Onc [address] [place], [place] [address] 08/03/2023 8:00 AM EDT Laboratory Laboratory, [address], [place] [address] [facility], Lab [address] [place] [address], [place] [address] 08/03/2023 9:00 AM EDT Immunization/Injection Hematology/Oncology Treatment, [address], [place] [address] [facility], Chair8 Hem Onc [address] [place], [place] [address] [address] 08/06/2023 8:20 AM EDT [address] [address] [facility], Lab [address] [place], [place] [address] [address] 08/06/2023 9:30 AM EDT Office Visit Hematology/Oncology, [address] [address] Lakeshia Stone CRNP [address] [place] [address] 08/10/2023 9:20 AM EDT Laboratory Laboratory [address], [place] [address] [place], [place] [id number] [place], Lab [address] [facility] [address] 08/13/2023 11:45 AM EDT Appointment Radiology, [address] [place] [address] 08/14/2023 9:00 AM EDT Laboratory Laboratory, [address] [id number] [facility], Lab [address] [place] [address] 08/14/2023 10:00 AM EDT Telemedicine Hematology/Oncology, [address] [place] [address] Mike Chaudhary MD [address] [place] [address] [facility] Hem Onc Clinic [address] [place], [place] [address] 08/14/2023 10:30 AM EDT Office Visit Palliative Medicine, [address] [place] [address] Aury Silva MD [address] [place] [address] 08/17/2023 7:15 AM EDT Nurse Only Hematology Oncology apper [facility], [address] [address] [place], Nurse Lab Hem/Onc [address] [place] [address] 08/17/2023 8:00 AM EDT Hem/Onc Treatment Hematology Oncology [facility], [address] [address] [place], Chair 20 Hem/Onc [address] [place] [address] 08/17/2023 2:00 PM EDT Appointment Radiology, [address] [address] 08/21/2023 9:00 AM EDT Nurse Only Hematology Oncology [facility], [address] [address] [place], Nurse Lab Hem/Onc [address] [place] [address] 08/21/2023 10:00 AM EDT Hem/Onc Treatment Hematology Oncology [facility], [address] [address] [place], Chair 18 Hem/Onc [address] [place] [address] 08/21/2023 2:00 PM EDT Appointment Radiology, [address] [address] [address] 08/26/2023 1:00 PM EDT Office Visit Sleep Disorders, [address] [id number] Dave Daigle PA-C [address] [place] [address] 09/07/2023 2:00 PM EDT Appointment Radiology, [address] [place] [address] 09/11/2023 2:00 PM EDT Appointment Radiology, [address] [phone] 09/25/2023 2:40 PM EDT Office Visit Rheumatology [place] [address] [facility] [place] [address] Oliver Zhang MD [facility] [place] [address] 02/19/2024 12:00 PM EST Office Visit Family Practice [address], [place] [address] [place], [place] [phone] Kayla Reeder DO [address] [place] [address] Health Maintenance Due Date Last Done Comments COVID-19 Vaccine (#1) 1993 Influenza Vaccine (FLU shot) (Season Ended) 2023 11/17/2016, 11/17/2016, 11/30/2015, Additional history exists Depression Screening 07/07/2024 07/08/2023, 06/11/19 24 Albumin/Creatinine Ratio Discontinued 08/02/2021 documented as of this encounter Medical Devices Implanted Type Area Logging Specialist Device Identifier Shelf Expiration Date Model / Serial / Lot Mediport Pwr Mri 8fr [id number] - [id number] Implanted:Qty : 1 on 07/17/2023 by Medhat Angel MD at OR [facility] Right: Chest CR BARD : PERIPHERAL VASCULAR 07/16/2024 [id number] / / [id number] Port Implant W8f Poly Cath - [id number] Implanted:Qty : 1 on 07/17/2023 by Medhat Angel MD at OR [facility] CR BARD : PERIPHERAL VASCULAR [id number] 07/16/2024 [id number] / / [id number] documented as of this encounter Results * MAGNESIUM (07/24/2023 9:17 AM EDT) Magnesium 2.2 1.5 - 2.6 mg/dL 07/24/2023 6:33 PM EDT LABORATORY GL Blood Venous blood specimen / Unknown Venipuncture / Unknown 07/24/2023 9:17 AM EDT 07/24/2023 9:17 AM EDT Lakeshia Clarke Chase [facility] BLOOD [facility] [address] [facility] [place] [address] documented in this encounter Visit Diagnoses Diagnosis Hypokalemia- Primary Hypopotassemia Need for case management follow-up 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) Burkitt's tumor or lymphoma of intra-abdominal lymph nodes Encounter for venous access device care Fitting and adjustment of vascular catheter documented in this encounter Advance Directives * [...] Agent [facility] p Communication Trixie Le [facility] Repr esentative (appointed verbally by patient or by statute hierarchy) [email or web address] Care Teams Field Crop Ii Farmworker Relationship Specialty Start Date End Date Kayla Reeder DO [address] [facility] [place] [address] PCP - General Family Medicine 06/11/23 documented as of this encounter
--- OUTSIDE RECORDS SUMMARY | 2023-09-18 21:29 | External Medical Summary | Summary of Care ---
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) Procedures PET CT SKULL BASE TO MID-THIGH FDG Mike Chaudhary MD [address] [place] [address] Referral ID Status Reason Start Date Expiration Date V isits Requested Visits Authorized [id number] Pending Review 08/10/2023 999 999 Reason for Visit * Reason Comments NEW PATIENT * Evaluate & Treat - Unlimited Visits (Within 3 days (urgent)) - Authorized Specialty Diagnoses / Procedures Referred By Kala villaseñor Referred To Contact Hematology/Oncology / Hematology Oncology Diagnoses Retroperitoneal mass Kayla Reeder DO [address] [place] [address] Referral ID Status Reason Start Date Expiration Date Visits Requested Visits Authorized [id number] Authorized Specialty Services Required 06/11/2023 999 999 Encounter Details Date Type Department Care Team (Latest Contact Info) Description 07/27/2023 9:00 AM EDT Office Visit Hematology/Oncology , [address] [place] [address] Mike Chaudhary MD [address], [place] [phone] 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 Patient's Name: Farhad Franco MR #: [id number] : 1990 Today's date: 07/27/2023 PCP: Kayla Reeder DO Referring provider: Kayla Reeder DO Reason for referral: Retroperitoneal mass Hematology/Oncology diagnosis: BL (Burkitt lymphoma): (June 2023) Sporadic variant, associated with EBV infection (EBV DNA, QN PCR= 32140). Also, patient with remotehistory of immunosuppressive meds. NEGATIVE HIV. High risk (retroperitoneal abdominal mass, > 7cm, High LDH). [email or web address]://[email or web address].org/doi/10.1200/JCO.20.01878 Bulky disease (single mass >7 cm) Stage III (Retroperitoneal disease), with no bone marrow, or HOUSING LIAISON involvement (LP x 2, Rare atypicallymphocytes W/small lymphocytes favor reactive lymphomonocytosis, flow:no evidence of clonal or aberrant cells) Retroperitoneal biopsy; IHC: Aggressive CD10+ B-cell lymphoma with EBV expression. Ki-67 = 80-90%. Flow cytometry: QJ59-ugvaqvcz B cell population expressing kappa light chains. FISH: t(8:14). 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 H/O seizures, last was in high school, has been on Depakote and toapmax for years Cognitive, and learning disabilities Gout HTN Former smoker, quit 2 years ago Treatment rendered: CALGB 1002 Pre-phase: Cyclophosphamide 200 mg/m2 IV days 1-5 (06/26/23-06/30/23) Prednisone 60 mg/m2 PO days 1-7 IT MTX 12 mg (07/02/23, 07/22/23) Current treatment: [email or web address]://[email or web address].org/doi/10.1200/JCO.20.73038 Risk-adapted DA-EPOCH-R Q 21 days, with G-CSF [...] nodes (HCC) 06/26/2023 - 07/09/2023 Chemotherapy CALGB 02842 Pre-Phase ONLY (1 Cycle/14 Days) [id number] 07/01/2023 - 07/01/2023 Chemotherapy OP CHOP-R every 21 days (Lymphoma) [id number] 07/02/2023 - 07/09/2023 Chemotherapy IP DA-EPOCH every 21 days (Lymphoma) [id number] 07/02/2023 - Supportive Therapy SCP - INTRATHECAL CHEMOTHERAPY (HEMATOLOGY) [id number] Plan Provider: Yaz Molina MD Treatment goal: Supportive Line of treatment: [No plan line of treatment] 07/24/2023 - Chemotherapy OP DA-EPOCH-R every 21 days (Clinic Administration 48hr EPOCH infusion) [id number] 07/27/2023 - 07/27/2023 Chemotherapy Outpatient DA R-EPOCH [facility] (48hr EPOCH infusion) [id number] ECOG: Performance Status 1 = 80-90% Symptoms but nearly ambulatory History of present illness (at time of my initial evaluation on 07/27/2023 ): Farhad Franco is a 32 year old male , presented to my office today accompanied by his mother to establish care with outpatient joint supervisor for evaluation, treatment of his newly diagnosed Burkittcell lymphoma. Patient lives 1 hour away from [facility]. He lives with his 4-year-old son. Patient is . He is on disability. Patient was admitted to [facility], and then transferred to [facility] because of Burkitt's lymphoma with hospital courses as below HOSPITAL COURSE (focused): - [facility] 06/20/2023 - 07/07/2023 (17 days): "Farhad Franco is 32 year old male with a past medical history significant for cerebral vasculitis (primary cerebral angiitis following Rheumatology in [place]) complicated by stroke at the age of7, migraine with aura, nephrolithiasis, petite mal seizures presented to [facility] with complaint of abdominal pain. Transferred from [facility] ER to [facility] to assess for IR biopsy in the setting of rapidly enlarging retroperitoneal mass on CT imaging. As per mother, he was on number of medications for his vasculitis like CellCept, Cytoxan, methotrexate from 1997 through 2014. Biopsy of retroperitoneal mass consistent with CD10 positive high-grade lymphoma with continued abdominal pain requiring morphine SALESPERSON FLORIST SUPPLIES pump. His uric acid was elevated s/p [...] 06/25/23, lumbar puncture 07/02/23" HOSPITAL COURSE (focused) [facility]- 07/12/2023 - 07/14/2023 (2 days): 32 yo male presents to the [facility] ED c/o headache. Found to [...] mood 08/14/2009 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 Follows in [place] q6m Cerebrovascular accident (CVA) (HCC) Gastroesophageal reflux [...] performed by Laurence Dent MD at [facility] EGD, FLEXIBLE, DIAGNOSTIC 02/05/2022 normal bx / ESOPHAGOGASTRODUODENOSCOPY (EGD), FLEXIBLE, TRANSORAL, DIAGNOSTIC performed by Laurence Dent MD at [facility] INFORMATION Arteriograms. INSER TUNN ACC DEV;5 YRS/OLDER Right 07/17/2023 INSERT TUNNELED CENTRAL VENOUS ACCESS WITH SUBQ PORT performed by Medhat Angel MD at OR [facility] IR BIOPSY 06/22/2023 [place] ANESTH,OPEN HEAD SURGERY Social History Tobacco Use [...] other nostril. 2 Each 3 Magic Swizzle (Euopvipuy-Rxiroesv-Mlfhhh) oral solution Swish and spit 15 mL [...] Signed Lakeshia Stone CRNP Patient Instructions Signed Tegna Burleson LPN Progress Notes Sign when Signing [...] K/uL Imaging: FLUORO GUIDED CHEMO ADMIN INTO HOUSING LIAISON Result Date: 07/22/2023 IMPRESSION Successful fluoroscopy guided lumbar puncture and intrathecal chemotherapy administration without immediate complication. IR INTERVENTIONAL RADIOLOGY PROCEDURE IN OR Result Date: 07/17/2023 IMPRESSION: Successful placement of a chest power injectable medical port. MRI BRAIN W WO CONTRAST Result Date: 07/13/2023 IMPRESSION: No acute intracranial abnormality nor suspicious lesion. Chronic left SALESPERSON FLORIST SUPPLIES territory infarct. CTA HEAD/CTA NECK Result Date: [...] Retroperitoneum, CT guided fine needle aspiration: - IZ97-gcqvvsxr B-cell lymphoma expressing EBV and t(8:14), consistent [...] specimens are preparedfor cell blocks at [facility]. The cell blocks are submitted in cassettes A1/A3 and processed at [facility]./MZ Prepared by: Formalin fixation time: 10 hours [...] controls. CD3 stain background small sized T-cells. Seneca-5 stains B-cells and is diffusely positive in [...] of Assessment: Telecytology used Onsite Personnel: Padmini Chrsito, DO Time: 12:37 Source: Retroperitoneum Part: [id number] Pass(es): 1 Adequacy: Less than optimal/Material collected [...] . Flow Interpretation Retroperitoneum core biopsy: - XT18-xqszkwwe B cell population expressing kappa light chains. [...] with a benign lymphoid population (linked report [id number]). Bone Marrow Aspirate Differential Value % Reference [...] with EBV infection (EBV DNA, QN PCR= 53657). Also, patient with remotehistory of immunosuppressive meds. NEGATIVE HIV. High risk (retroperitoneal abdominal mass, > 7cm, High LDH). [email or web address]://[email or web address].org/doi/10.1200/JCO.20.69153 Bulky disease (single mass >7 cm) Stage III (Retroperitoneal disease), with no bone marrow, or HOUSING LIAISON involvement (LP x 2, Rare atypicallymphocytes W/small lymphocytes favor reactive lymphomonocytosis, flow:no evidence of clonal or aberrant cells) Retroperitoneal biopsy; IHC: Aggressive CD10+ B-cell lymphoma with EBV expression. Ki-67 = 80-90%. Flow cytometry: BO11-vgpsfbyy B cell population expressing kappa light chains. [...] mother, who works from home as a [employer]. We discussed that Burkitts lymphoma is a [...] We also discussed that nvolvement of the HOUSING LIAISON occurs in up to 20% of cases ( but he was negative for HOUSING LIAISON involvement), and the bone marrow is involved [...] x 2 did not show evidence of HOUSING LIAISON involvement. So plan is to proceed with [...] By: Hem/Onc --- Protocol: SCP - HYDRATION [id number] Alteration of Treatment Plan Check-out note: Ok [...] This chart was completed in part utilizing [employer] Speech Voice Recognition Software. Grammatical errors, random [...] 1:30 PM EDT Hem/Onc Treatment Hematology/Oncology Treatment, [address], [place] [address] [facility], Chair4 Hem Onc [address] [place] [address], [place] [address] 07/31/2023 12:30 PM EDT Laboratory Laboratory, [address], [place] [address] [facility], Lab [address] [place] [address], [place] [address] 07/31/2023 1:30 PM EDT Hem/Onc Treatment Hematology/Oncology Treatment, [address] [address] [facility], Chair2 Hem Onc [address] [place], [place] [address] 08/03/2023 8:00 AM EDT Laboratory Laboratory, [address], [place] [address] [facility], Lab [address] [place] [address], [place] [address] 08/03/2023 9:00 AM EDT Immunization/Injection Hematology/Oncology Treatment, [address] [address] [facility], Chair8 Hem Onc [address] [place], [place] [address] 08/06/2023 8:20 AM EDT Laboratory Laboratory, [address] [address] [facility], Lab [address] [place] [address] 08/06/2023 9:30 AM EDT Office Visit Hematology/Oncology, [address] [address] Lakeshia Stone CRNP [address] [place] [address] 08/10/2023 9:00 AM EDT Laboratory Laboratory, [address] [address] [facility], Lab [address] [place] [address] 08/13/2023 11:45 AM EDT Appointment Radiology, [address] [place] [address] 08/14/2023 9:00 AM EDT Laboratory Laboratory, [address] [place] [address] [facility], Lab [address] [place] [address] 08/14/2023 10:00 AM EDT Telemedicine Hematology/Oncology, [address] [place] [address] Mike Chaudhary MD [address] [place] [address] Herve Hurtadoed [facility] Hem Onc Clinic [address] [place] [address], [place] [address] 08/17/2023 7:15 AM EDT Nurse Only Hematology Oncology [facility], [address] [address] [place], Nurse Lab Hem/Onc [address] [place] [address] 08/17/2023 8:00 AM EDT Hem/Onc Treatment Hematology Oncology [facility], [address] [address] [place], Chair 20 Hem/Onc [address] [place] [address] 08/17/2023 1:00 PM EDT Office Visit Palliative Medicine, [address] [place] [address] Aury Silva MD [address] [place] [address] 08/17/2023 2:00 PM EDT Appointment Radiology, [address] [phone] 08/21/2023 9:00 AM EDT Nurse Only Hematology Oncology [facility], [address] [address] [place], Nurse Lab Hem/Onc [address] [place] [address] 08/21/2023 10:00 AM EDT Hem/Onc Treatment Hematology Oncology [facility], [address] [address] [place], Chair 18 Hem/Onc [address] [place] [address] 08/21/2023 2:00 PM EDT Appointment Radiology, [address] [phone] 08/26/2023 1:00 PM EDT Office Visit Sleep Disorders, [address] [address] Dave Daigle PA-C [address] [facility] [place] [address] 09/07/2023 2:00 PM EDT Appointment Radiology, [address] [address] 09/11/2023 2:00 PM EDT Appointment Radiology, [address] [address] 09/25/2023 2:40 PM EDT Office Visit Rheumatology [address] [place] [address] Oliver Zhang MD [address] [place] [address] [place], [place] [address] 02/19/2024 12:00 PM EST Office Visit Family Practice [address], [place] [address] [place] [address] Kayla Reeder DO [address] [place] [address] Scheduled Orders Name Type Priority Associated Diagnoses [...] this encounter Medical Devices Implanted Type Area Tissue Specialist Device Identifier Shelf Expiration Date Model / Serial / Lot Mediport Pwr Mri 8fr [id number] - [id number] Implanted:Qty : 1 on 07/17/2023 by Mdehat Angel MD at [facility] Right: Chest CR BARD : PERIPHERAL VASCULAR 07/16/2024 [id number] / / [id number] Port Implant W8f Poly Cath - [id number] Implanted:Qty : 1 on 07/17/2023 by Medhat Angel MD at OR [facility] CR BARD : PERIPHERAL VASCULAR [id number] 07/16/2024 [id number] / / [id number] documented as of this encounter Visit Diagnoses [...] Agents on File Name Relationship Healthcare Agent [facility] p Communication Trixie Le [facility] Repr esentative (appointed verbally by patient or by statute hierarchy) [email or web address] Care Teams Learning And Development Specialist Relationship Specialty Start Date End Date Kayla Reeder DO [address] [facility] [place] [address] PCP - General Family Medicine 06/11/23 documented as of this encounter
--- OUTSIDE RECORDS SUMMARY | 2023-09-18 21:29 | External Medical Summary | Summary of Care ---
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) Procedures MT DOXORUBIC HCL 10 MG VL CHEMO MT VINCRISTINE SULFATE 1 MG INJ MT FOSAPREPITANT INJECTION MT ETOPOSIDE 10 MG INJ MT INJECTION, RITUXIMAB-PVVR, BIOSIMILAR, (RUXIENCE), 10 MG MT INJ, NYVEPRIA MT INJ, CYCLOPHOSPHAMIDE, NOS Elvis Villalobos MD 400 [facility] [place] [address] Anc Hem/Onc [facility] [address] [facility] [place] [address] Referral ID Status Reason Start Date Expiration Date V isits Requested Visits Authorized [id number] Authorized 07/23/2023 01/22/2024 999 999 Encounter Details Date Type Department Care Team (Latest Contact Info) Description 07/27/2023 10:00 AM EDT Hem/Onc Treatment Hematology/Oncolog y Treatment, [facility] [address] [facility] [place] [phone] [facility], Chair2 Hem Onc [address] [address] Encounter for antineoplastic chemotherapy*; Burkitt lymphoma of [...] 07/24/2023 Active levoFLOXacin 750 MG Oral Tablet (Levaquin)Ciarao ns: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 Gabriella Mendez RN 07/27/2023 [facility] Nursing Care Plan ID is not [...] did not fall at infusion center. Gabriella Mendez RN documented in this encounter Plan of Treatment Upcoming Encounters Date Type Department Care Team (Late st Contact Info) Description 07/29/2023 1:30 PM EDT Hem/Onc Treatment Hematology/Oncology Treatment, [address] [address] [facility], Chair4 Hem Onc [address] [place], [place] [address] [address] 07/31/2023 12:30 PM EDT Laboratory Laboratory, [address] [phone] [facility], Lab [address] [place], [place] [address] 07/31/2023 1:30 PM EDT Hem/Onc Treatment Hematology/Oncology Treatment, [address] [place] [address] [facility], Chair2 Hem Onc [address] [place], [place] [address] 08/03/2023 8:00 AM EDT Laboratory Laboratory, [address] [place] [address] [facility], Lab [address] [place] [address] 08/03/2023 9:00 AM EDT Immunization/Injection Hematology/Oncology Treatment, [address] [place] [address] [facility], Chair8 Hem Onc [address] [place] [address], [place] [address] 08/06/2023 8:20 AM EDT Laboratory Laboratory, [address] [address] [facility], Lab [address] [place] [address], [place] [address] 08/06/2023 9:30 AM EDT Office Visit Hematology/Oncology, [address] [place] [address] Lakeshia Stone CRNP [address] [place] [address] 08/10/2023 9:00 AM EDT Laboratory Laboratory, [address] [place] [address] [facility], Lab [address] [place] [address], [place] [address] 08/10/2023 10:00 AM EDT Office Visit Hematology/Oncology, [address] [address] Ritika Godfrey CRNP [address] [place] [address] 08/12/2023 2:00 PM EDT Appointment Radiology, [place] [address] [place] [address] 08/13/2023 11:00 AM EDT Laboratory Laboratory, [address] [address] [facility], Lab [address] [place] [address] 08/13/2023 11:45 AM EDT Appointment Radiology, [address] [address] 08/17/2023 9:00 AM EDT Laboratory Laboratory, [address] [address] [facility], Lab [address] [place] [address], [place] [address] 08/17/2023 10:00 AM EDT Telemedicine Hematology/Oncology, [address] [place] [address] Mike Chaudhary MD [address] [facility] [place] [address] Herve Hurtadoed [facility] Hem Onc Clinic [address] [place] [address], [place] [address] 08/17/2023 10:30 AM EDT Hem/Onc Treatment Hematology/Oncology Treatment, [address] [place] [address] [facility], Chair5 Hem Onc [address] [place] [address], [place] [address] 08/17/2023 1:00 PM EDT Office Visit Palliative Medicine, [address] [place] [address] Aury Silva MD [address] [place] [address] 08/26/2023 1:00 PM EDT Office Visit Sleep Disorders, [address] [address] Dave Dagile PA-C [address] [place] [address] 09/25/2023 2:40 PM EDT Office Visit Rheumatology [address] [place] [address] Oliver Zhang MD [address] [place] [address], [place] [address] 02/19/2024 12:00 PM EST Office Visit Family Practice [facility] [place] [place] [address] [facility] [place] [place] [address] Kayla eReder DO [address] [place] [address] Scheduled Orders Name Type Priority Associated Diagnoses [...] this encounter Medical Devices Implanted Type Area Geochemical Laboratory Technician Device Identifier Shelf Expiration Date Model / Serial / Lot Mediport Pwr Mri 8fr [id number] - [id number] Implanted:Qty : 1 on 07/17/2023 by Medhat Angel MD at OR [facility] Right: Chest CR BARD : PERIPHERAL VASCULAR 07/16/2024 [id number] / / [id number] Port Implant W8f Poly Cath - [id number] Implanted:Qty : 1 on 07/17/2023 by Medhat Angel MD at OR [facility] CR BARD : PERIPHERAL VASCULAR [id number] 07/16/2024 [id number] / / [id number] documented as of this encounter Visit Diagnoses [...] sulfate 1.9 mg, DOXOrubicin (Adriamycin) 48 mg [facility] [employer] [facility] 48 HOUR infusion Intravenous, [...] File Name Relationship Healthcare Agent [facility] p Communication Trixie Le [facility] Repr esentative (appointed verbally by patient or by statute hierarchy) [email or web address] Care Teams Platen Press Feeder Relationship Specialty Start Date End Date Kayla Reeder DO [address] [facility] [place] [place] [address] PCP - General Family Medicine 06/11/23 documented as of this encounter
--- OUTSIDE RECORDS SUMMARY | 2023-09-18 21:29 | External Medical Summary ---
Author Name Unknown Address Unknown Organization K1F:[facility]ATORY [facility] - [address] [address] Laboratory Report Ordering Provider Test Date Status TYE BARAJASMAIKEL 07/31/2023 11:06:34 Final Observation Date Value Abnormality Reference (Units ) Status Uric Acid 07/31/2023 11:06:34 5.1 3.4-7.0 (m g/dL) Final Performing Location [facility] - [address] [address]
--- OUTSIDE RECORDS SUMMARY | 2023-09-18 21:29 | External Medical Summary | Summary of Care ---
Author Name Unknown Organization [facility] Address [address] [place] [address] Phone [phone] Care Team Providers Care Film Reproducer Name Role Phone Kayla Reeder DO Primary Care Provider +1- [phone] Encounter Details Date Type Department Care Team (Late st Contact Info) Description 07/28/2023 Orders Only [facility] [address] [place] [address] Mike Chaudhary MD [address] [place] [address] Burkitt lymphoma of intra-abdominal lymph [...] 1,500 mL infusion IV CONTINUOUS 07/28/2023 07/30/2023 Active documented as of this encounter (statuses [...] 1:30 PM EDT Hem/Onc Treatment Hematology/Oncology Treatment, [place] [address] [place] [address] [facility], Chair4 Hem Onc [address] [place] [place] [address] 07/31/2023 12:30 PM EDT Laboratory Laboratory, [address], [place] [address] [facility], Lab [address] [place] [address], [place] [address] 07/31/2023 1:30 PM EDT Hem/Onc Treatment Hematology/Oncology Treatment, [address], [place] [address] [facility], Chair2 Hem Onc [address] [place] [address], [place] [address] 08/03/2023 8:00 AM EDT Laboratory Laboratory, [address], [place] [address] [facility], Lab [address] [place] [address], [place] [address] 08/03/2023 9:00 AM EDT Immunization/Injection Hematology/Oncology Treatment, [address], [place] [address] [facility], Chair8 Hem Onc [address] [place] [address], [place] [address] 08/06/2023 8:20 AM EDT Laboratory Laboratory, [address], [place] [address] [facility], Lab [address] [place] [address], [place] [address] 08/06/2023 9:30 AM EDT Office Visit Hematology/Oncology, [address], [place] [address] Lakeshia Stone CRNP [address] [place] [address] 08/10/2023 9:00 AM EDT Laboratory Laboratory, [address] [phone] [facility], Lab [address] [place] [address] 08/13/2023 11:45 AM EDT Appointment Radiology, [address] [address] 08/14/2023 9:00 AM EDT Laboratory Laboratory, [address] [address] [facility], Lab [address] [place] [address] 08/14/2023 10:00 AM EDT Telemedicine Hematology/Oncology, [address] [address] Mike Chaudhary MD [address] [place] [address] Cart, Telemed [facility] Hem Onc Clinic [address] [place] [address] 08/17/2023 7:15 AM EDT Nurse Only Hematology Oncology [facility] [address] [place] [address] [place], Nurse Lab Hem/Onc [address] [place] [address] 08/17/2023 8:00 AM EDT Laboratory Laboratory, [address] [place] [address] [facility], Lab [address] [place] [address] 08/17/2023 8:00 AM EDT Hem/Onc Treatment Hematology Oncology [facility], [address] [address] [place], Chair 20 Hem/Onc [address] [place] [address] 08/17/2023 9:00 AM EDT Telemedicine Hematology/Oncology, [address] [address] Mike Chaudhary MD [facility] [place] [address] Cart, Telemed [facility] Hem Onc Clinic [address] [place] [address] 08/17/2023 10:30 AM EDT Hem/Onc Treatment Hematology/Oncology Treatment, [address] [address] [facility], Chair5 Hem Onc [address] [place] [address] 08/17/2023 1:00 PM EDT Office Visit Palliative Medicine, [address] 5th [place] [address] Aury Silva MD [address] [place] [address] 08/17/2023 2:00 PM EDT Appointment Radiology, [address] [address] 08/21/2023 9:00 AM EDT Nurse Only Hematology Oncology [facility], [address] [address] [place], Nurse Lab Hem/Onc [address] [place] [address] 08/21/2023 10:00 AM EDT Hem/Onc Treatment Hematology Oncology [facility], [address] [address] [place], Chair 18 Hem/Onc [address] [place] [address] 08/21/2023 2:00 PM EDT Appointment Radiology, [address] [phone] 08/26/2023 1:00 PM EDT Office Visit Sleep Disorders, [facility] [address] [place], [place] [id number] Dave Daigle PA-C [address] [place] [address] 09/07/2023 2:00 PM EDT Appointment Radiology, [address] [address] 09/11/2023 2:00 PM EDT Appointment Radiology, [address] [address] 09/25/2023 2:40 PM EDT Office Visit Rheumatology [place] 415490 [place] [address] Oliver Zhang MD [facility] [place] [address] 02/19/2024 12:00 PM EST Office Visit Family Practice [facility] Maribell Garcia [address] [place] [address] Kayla Reeder DO [address] [place] [address] Scheduled Orders Name Type Priority Associated Diagnoses Orde r Schedule FLUORO GUIDED CHEMO ADMIN INTO PHOTOCOMPOSITION KEYBOARD OPERATOR Medical Imaging STAT 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) Every 3 Weeks for 8 Occurrences starting 07/28/2023 until 08/26/2024 CYTOLOGY Pathology STAT 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) Every 3 Weeks for 4 Occurrences starting 07/28/2023 until 08/26/2024 FLOW CYTOMETRY, LEUKEMIA LYMPHOMA PANEL Lab STAT 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) Every 3 Weeks for 4 Occurrences starting 07/28/2023 until 07/27/2024 Health Maintenance Due Date Last Done Comments COVID-19 Vaccine (#1) 1993 Influenza Vaccine (FLU shot) (Season Ended) 2023 11/17/2016, 11/17/2016, 11/30/2015, Additional history exists Depression Screening 07/07/2024 07/08/2023, 06/11/19 24 Albumin/Creatinine Ratio Discontinued 08/02/2021 documented as of this encounter Medical Devices Implanted Type Area Rn Tele Device Identifier Shelf Expiration Date Model / Serial / Lot Mediport Pwr Mri 8fr [id number] - [id number] Implanted:Qty : 1 on 07/17/2023 by Medhat Angel MD at OR [facility] Right: Chest CR BARD : PERIPHERAL VASCULAR 07/16/2024 [id number] / / [id number] Port Implant W8f Poly Cath - [id number] Implanted:Qty : 1 on 07/17/2023 by Medhat Angel MD at OR [facility] CR BARD : PERIPHERAL VASCULAR [id number] 07/16/2024 [id number] / / [id number] documented as of this encounter Visit Diagnoses [...] File Name Relationship Healthcare Agent [facility] p Communication Trixie Le Mckay [facility] Care Repr esentative (appointed verbally by patient or by statute hierarchy) [email or web address] Teams Film Reproducer Relationship Specialty Start Date End Date Kayla Reeder DO [address] [facility] [place] [address] PCP - General Family Medicine 06/11/23 documented as of this encounter
--- OUTSIDE RECORDS SUMMARY | 2023-09-18 21:29 | External Medical Summary ---
Author Name Unknown Address Unknown Organization K1F[facility] [address] [facility] [place] [address] Laboratory Report Ordering Provider Test Date Status MATTI BARAJAS 07/31/2023 11:06:34 Final Observation Date Value Abnormality Reference (Units ) Status BUN 07/31/2023 11:06:34 13 6-20 (mg/dL) Final Creatinine 07/31/2023 11:06:34 0.9 0.6-1.2 (mg/dL) Final Glomerular filtration rate/1.73 sq M.predicted [Volume Rate/Area] in Serum, Plasma or Blood by Creatinine-based formula (CKD-EPI) 07/31/2023 11:06:34 >90 >=60 (mL/min) Final eGFR is calculated based on the CKD-EPI 2020 equation Sodium 07/31/2023 11:06:34 141 135-146 (m mol/L) Final Potassium 07/31/2023 11:06:34 3.4 Below low normal 3.5 -5.1 (mmol/L) Final Cl 07/31/2023 11:06:34 105 98-107 (mm ol/L) Final CO2 07/31/2023 11:06:34 26 22-32 (mmo l/L) Final Anion gap 07/31/2023 11:06:34 10 7-15 (mmol /L) Final Glucose 07/31/2023 11:06:34 132 Above high normal 70 -120 (mg/dL) Final Albumin 07/31/2023 11:06:34 4.2 3.8-5.0 (g /dL) Final AST (Aspartate aminotransferase) 07/31/2023 11:06:34 24 10-50 (U/L) Fin al Alk Phos 07/31/2023 11:06:34 75 35-130 (U/ L) Final Bilirubin, Total 07/31/2023 11:06:34 0.5 <=1 .2 (mg/dL) Final Calcium 07/31/2023 11:06:34 9.5 8.4-10.2 ( mg/dL) Final Protein 07/31/2023 11:06:34 6.6 6.0-8.3 (g /dL) Final ALT (Alanine aminotransferase) 07/31/2023 11:06:34 52 Above high normal 10-50 (U/L) Final Performing Location LABORATORY [facility] - [facility] [address] [place] [address]
--- OUTSIDE RECORDS SUMMARY | 2023-09-18 21:30 | External Medical Summary | Summary of Care ---
Author Name Unknown Organization [facility] Address [address] [place] [address] Phone [phone] Care Team Providers Care Riverboat Captain Name Role Phone Kayla Reeder DO Primary Care Provider +1- [phone] Reason for Visit * Reason Comments Follow Up Encounter Details Date Type Department Care Team ([facility] st Contact Info) Description 07/27/2023 10:30 AM EDT Office Visit Palliative Medicine, [facility] [address] [facility] 5th [place] [address] Gabriella Florian CRNP [address] [place] [address] Cancer related pain*; 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 8 Tablet 5 07/24/2023 Active documented as of this encounter (statuses [...] Time Taken Comments Blood Pressure 118/78 07/27/2023 9:07 AM EDT Pulse 80 07/27/2023 9:07 AM EDT Temperature 36.9 C (98.5 F) 07/27/2023 9:07 AM ED T Respiratory Rate - - Oxygen Saturation 99% 07/27/2023 9:07 AM EDT Inhaled Oxygen Concentration - - Weight 114.6 kg (252 lb 10.4 oz) 07/27/2023 9:07 AM EDT Height - - Body Mass [...] * Patient Instructions* Tegan Burleson LPN - 07/27/2023 9:07 AM EDT Our Palliative Medicine Clinic is [...] needed. You can contact our office at [phone], which is our clinic in [place], or you can message us on [employer]. If you have an emergency outside of these hours, we recommend calling your primary care clinic, Oncology office, or going to the ER if you have a medical emergency. documented in this encounter Progress Notes * Gabriella Florian CRNP - 07/27/2023 10:23 AM EDT Palliative Medicine Outpatient Progress Note [facility], 5th Floor [address] [place] [address] Name: Farhad Franco Date: 07/27/2023 HPI: Farhad Franco is a 32 year [...] BID Quality: deep ache Severity: 0/10 today Nausea/Vomiting: occasional nausea. Using zofran PRN, feels this works better than compazine. Instructed him to try and catch nausea as soon as possible. Appetite: good Constipation: no Confusion: no Sleep issues: no Dyspnea: no Mood issues: no Falls: no Other: no Examination: BP 118/78 | Pulse 80 | Temp 36.9 C (98.5 F) | Wt 114.6 kg (252 lb 10.4 oz) | SpO2 99% | BMI 35.24 kg/m | BSA 2.4 m Constitutional: no acute distress HENT: normocephalic, atraumatic. Eyes: anicteric, sclera and conjunctiva normal. Neck: no stridor Chest: normal respiratory effort Abdominal: nondistended Extremities: no edema Data Review: External notes reviewed: - Reviewed notes from hem/onc 07/24/23 - okay to continue DA-EPOCH-R treatment, first day is 07/27/23. - Reviewed notes from hem/onc 07/27/23 - note still pending Lab / Imaging Results: hgb 07/27/23 10.6 - slightly down from 11.5. Absolute lymphocyte count 07/27/23 0.67 - mildly improved but still low. All related to chemo/cancer Information obtained from patient and his mother for collateral history ASSESSMENT/PLAN: Farhad Franco is a 32 year old male seen in follow-up for goals of care and pain and symptom management. Cancer related pain Continue subutex 0.5mg BID. May be able to wean even further, but we decided today to continue thisregimen since it is a cycle week and this has caused him pain in the past. Already has a refill waiting at pharmacy per Mom. Is not needing PRN hydromorphone but has it available. They have narcan available at home as well. Burkitt's lymphoma of intra-abdominal lymph nodes Continue treatment with DA-EPOCH-R with Dr. Chaudhary and hem/onc team. Pancytopenia related to chemotherapy Stable. Goals of care Per palliative note on 07/22/23 - continue treatment, his goal is for cure in 6 months. Code status if admitted: full Follow up in 3-4 weeks in infusion center at next cycle. I spent a total of 34 minutes on the date of service in preparation, delivery, and documentation ofthe care provided to Farhad Franco excluding any time spent in the performance of separately billed services. NIK Flor [facility] Palliative Medicine [phone] * Tegan Burleson LPN - 07/27/2023 9:07 AM EDT TBS in [facility] center documented in this encounter Plan of Treatment Upcoming Encounters Date Type Department Care Team (Late st Contact Info) Description 07/30/2023 9:20 AM EDT Laboratory Laboratory, [address], [place] [address] [facility], Lab [address] [place] [address], [place] [address] 07/31/2023 1:30 PM EDT Hem/Onc Treatment Hematology/Oncology Treatment, [address], [place] [address] [facility], Chair2 Hem Onc [address] [place] [address], [place] [address] 08/03/2023 8:00 AM EDT Laboratory Laboratory, [address], [place] [address] [facility], Lab [address] [facility], [place] [address] 08/06/2023 8:20 AM EDT Laboratory Laboratory, [address], [place] [address] [facility], Lab [address] [place] [address] 08/10/2023 8:10 AM EDT Laboratory Laboratory, [address] [address] [facility], Lab [address] [place] [address], [place] [address] 08/12/2023 2:00 PM EDT Appointment Radiology, [address] [address] 08/13/2023 11:00 AM EDT Laboratory Laboratory, [address] [address] [facility], Lab [address] [place] [address] 08/13/2023 11:45 AM EDT Appointment Radiology, [address] [address] 08/17/2023 8:00 AM EDT Laboratory Laboratory, [address] [address] [facility], Lab [address] [place] [address] 08/26/2023 1:00 PM EDT Office Visit Sleep Disorders, [address] [address] Dave Daigle PA-C [address] [place] [address] 09/25/2023 2:40 PM EDT Office Visit Rheumatology [place] 263740 [facility] [place], [place] [address] Oliver Zhang MD [facility] [place], [place] [address] 02/19/2024 12:00 PM EST Office Visit Family Practice [address], [place] [address] [place] [place] [address] Kayla Reeder DO [address] [place] [place] [address] Health Maintenance Due Date Last Done Comments COVID-19 Vaccine (#1) 1993 Influenza Vaccine (FLU shot) (Season Ended) 2023 11/17/2016, 11/17/2016, 11/30/2015, Additional history exists Depression Screening 07/07/2024 07/08/2023, 06/11/19 24 Albumin/Creatinine Ratio Discontinued 08/02/2021 documented as of this encounter Medical Devices Implanted Type Area Head Greenskeeper Device Identifier Shelf Expiration Date Model / Serial / Lot Mediport Pwr Mri 8fr [id number] - [id number] Implanted:Qty : 1 on 07/17/2023 by Medhat Angel MD at OR [facility] Right: Chest CR BARD : PERIPHERAL VASCULAR 07/16/2024 [id number] / / [id number] Port Implant W8f Poly Cath - [id number] Implanted:Qty : 1 on 07/17/2023 by Medhat Angel MD at OR [facility] CR BARD : PERIPHERAL VASCULAR [id number] 07/16/2024 [id number] / / [id number] documented as of this encounter Visit Diagnoses [...] Healthcare Agent Relationshi p Communication Trixie Le [facility] Health Care Repr esentative (appointed verbally by patient or by statute hierarchy) [email or web address] Care Teams Riverboat Captain Relationship Specialty Start Date End Date Kayla Reeder DO [address] [facility] [place] [address] PCP - General Family Medicine 06/11/23 documented as of this encounter"
--- OUTSIDE RECORDS SUMMARY | 2023-09-18 21:30 | External Medical Summary | Summary of Care ---
Author Name Unknown Organization [facility] Address [address] [place] [address] Phone [phone] Care Team Providers Care Weigher Production Name Role Phone Kayla Reeder DO Primary Care Provider +1- [phone] Reason for Visit * Reason Comments Treatment [...] INJ, CYCLOPHOSPHAMIDE, NOS Elvis Villalobos MD [address] [facility] [place] [address] Anc Hem/Onc [facility] [address] [facility] [place] [address] Referral ID Status Reason Start Date Expiration Date V isits Requested Visits Authorized [id number] Authorized 07/23/2023 01/22/2024 999 999 Encounter Details Date Type Department Care Team (Latest Contact Info) Description 07/27/2023 10:00 AM EDT Hem/Onc Treatment Hematology/Oncolog y Treatment, [facility] [address] [facility] [place] [id number] [facility], Chair2 Hem Onc [address] [place] [address] Encounter for antineoplastic chemotherapy*; Burkitt lymphoma of [...] Mendez, RN - 07/27/2023 10:21 AM EDT [place] 10 Chemotherapy/Immunotherapy agents: Rituximab, Cyclyophosamide, Doxorubicin, Vincristine, [...] Voiced no complaints. Gabriella Mendez RN 07/27/2023 [facility] Nursing Care Plan ID is [...] 1:30 PM EDT Hem/Onc Treatment Hematology/Oncology Treatment, [address] [address] [facility], Chair4 Hem Onc [address] [place], [place] [address] 07/31/2023 12:30 PM EDT Laboratory Laboratory, [address] [phone] [facility], Lab [address] [place], [place] [address] 07/31/2023 1:30 PM EDT Hem/Onc Treatment Hematology/Oncology Treatment, [address] [place] [address] [facility], Chair2 Hem Onc [address] [place], [place] [address] 08/03/2023 8:00 AM EDT Laboratory Laboratory, [address] [place] [address] [facility], Lab [address] [place] [address] 08/03/2023 9:00 AM EDT Immunization/Injection Hematology/Oncology Treatment, [address] [place] [address] [facility], Chair8 Hem Onc [address] [place] [address], [place] [address] 08/06/2023 8:20 AM EDT Laboratory Laboratory, [address] [address] [facility], Lab [address] [place] [address], [place] [address] 08/06/2023 9:30 AM EDT Office Visit Hematology/Oncology, [address] [place] [address] Lakeshia Stone CRNP [address] [place] [address] 08/10/2023 9:00 AM EDT Laboratory Laboratory, [address] [place] [address] [facility], Lab [address] [place] [address], [place] [address] 08/10/2023 10:00 AM EDT Office Visit Hematology/Oncology, [address] [address] Ritika Godfrey CRNP [address] [place] [address] 08/12/2023 2:00 PM EDT Appointment Radiology, [place] [address] [place] [address] 08/13/2023 11:00 AM EDT Laboratory Laboratory, [address] [address] [facility], Lab [address] [place] [address] 08/13/2023 11:45 AM EDT Appointment Radiology, [address] [address] 08/17/2023 9:00 AM EDT Laboratory Laboratory, [address] [address] [facility], Lab [address] [place] [address], [place] [address] 08/17/2023 10:00 AM EDT Telemedicine Hematology/Oncology, [address] [place] [address] Mike Chaudhary MD [address] [facility] [place] [address] Herve Hurtadoed [facility] Hem Onc Clinic [address] [place] [address], [place] [address] 08/17/2023 10:30 AM EDT Hem/Onc Treatment Hematology/Oncology Treatment, [address] [place] [address] [facility], Chair5 Hem Onc [address] [place] [address], [place] [address] 08/17/2023 1:00 PM EDT Office Visit Palliative Medicine, [address] 5th [place] [address] Aury Silva MD [address] [place] [address] 08/26/2023 1:00 PM EDT Office Visit Sleep Disorders, [address] [address] Dave Daigle PA-C [address] [place] [address] 09/25/2023 2:40 PM EDT Office Visit Rheumatology [address] [place] [address] Oliver Zhang MD [address] [place] [address], [place] [address] 02/19/2024 12:00 PM EST Office Visit Family Practice [facility], [place] [address] [facility] [place]ST [place] [address] Kayla Reeder DO [address] [place] [address] Scheduled Orders Name Type Priority Associated Diagnoses [...] this encounter Medical Devices Implanted Type Area Drawing Hand Device Identifier Shelf Expiration Date Model / Serial / Lot Madiport Pwr Mri 8fr [id number] - [id number] Implanted:Qty : 1 on 07/17/2023 by eMdhat Angel MD at OR [facility] Right: Chest CR BARD : PERIPHERAL VASCULAR 07/16/2024 [id number] / / [id number] Port Implant W8f Poly Cath - [id number] Implanted:Qty : 1 on 07/17/2023 by Medhat Angel MD at OR [facility] CR BARD : PERIPHERAL VASCULAR [id number] 07/16/2024 [id number] / / [id number] documented as of this encounter Visit Diagnoses [...] ONCE PRN Other, Hypersensitivity Reaction, Starting on Thu07/27/23 at 1019, Until Thu07/28/23 at 1018, For 24 hours EPINEPHrine 1 MG/ML inj 0.3 mg 0.3 mg, Intramuscular, ONCE PRN Other, Hypersensitivity Reaction or Anaphylaxis, Starting on Thu07/27/23 at 1019, Until Thu07/28/23 at 1018, For 24 hours etoposide (VEPESID) 240 mg, vinCRIStine sulfate 1.9 mg, DOXOrubicin (Adriamycin) 48 mg [facility] 48 HOUR infusion Intravenous, Administer over 48 Hours, PROTECT FROM LIGHT! Administer through 0.22 micron low protein binding filter! Home Infusion Pharmacy to specify base solution and volume. To be given over 48 hours every other day for 4 days (2 bags) through home infusion company., CONTINUOUS, Starting on Thu07/27/23 at 1100, Until Discontinued New Bag 07/27/2023 1:49 PM EDT 31.2 mL/hr hEParin 100 UNIT/ML Lock Flush inj 500 Units 500 Units (5 mL), IV Lock, PRN Other, IV Flush, Starting on Thu07/27/23 at 1019, Until Thu07/28/23 at 1018, For 24 hours, Do not flush if lock, PICC, or central line not in place; IV infusing or unable to flush. Hydrocortisone Sod Suc (PF) (Solu-Cortef) inj 100 mg 100 mg, IV Push, ONCE PRN Other, Hypersensitivity Reaction, Starting on Thu07/27/23 at 1019, Until Thu07/28/23 at 1018, For 24 hours LORAzepam (Ativan) tab 0.5 mg 0.5 mg, Oral, ONCE PRN Anxiety, Nausea, Starting on Thu07/27/23 at 0830, Until Discontinued NSS infusion Intravenous, at 50 mL/hr, PRN, Starting on Thu07/27/23 at 0830, Until Discontinued, Maintenance line Start Infusion 07/27/2023 10:36 AM EDT 50 mL/hr sodium chloride 0.9 % flush central line 10 mL 10 mL, IV Push, PRN Other, IV Flush, Starting on Thu07/27/23 at 1019, Until Thu07/28/23 at 1018, For 24 hours, Do not flush if lock, PICC, or central line not in place; IV infusing or unable to flush. Inactive Administered Medications - up to 3 most recent administrations Medication Order MAR Action Action Date Dose Rate Site Fosaprepitant Dimeglumine (Emend) 150 mg, ondansetron (Zofran) [...] 11:41 AM EDT 1,000 mL 500 mL/hr [id number] [...] Agents on File Name Relationship Healthcare Agent [facility] p Communication Trixie Le [facility] Repr esentative (appointed verbally by patient or by statute hierarchy) [email or web address] Weigher Production Relationship Specialty Start Date End Date Kayla Reeder DO [address] [facility] [place]ST [place] [address] PCP - General Family Medicine 06/11/23 documented as of this encounter
--- OUTSIDE RECORDS SUMMARY | 2023-09-18 21:30 | External Medical Summary | Summary of Care ---
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 [place] [address] Referral ID Status Reason Start Date Expiration Date V isits Requested Visits Authorized [id number] Authorized 07/23/2023 01/22/[phone] Encounter Details Date Type Department Care Team (Latest Contact Info) Description 07/27/2023 10:00 AM EDT Hem/Onc Treatment Hematology/Oncolog y Treatment, [facility] [address] [facility] [place] [phone] [facility], Chair2 Hem Onc [address] [place] [place] [address] Encounter for antineoplastic chemotherapy*; Burkitt lymphoma of [...] as of this encounter Nursing Notes * Gabirella Mendez, RN - 07/27/2023 10:21 AM EDT [place] 10 Chemotherapy/Immunotherapy agents: Rituximab, Cyclyophosamide, Doxorubicin, Vincristine, [...] Voiced no complaints. Gabriella Mendez RN 07/27/2023 [facility] Nursing Care Plan ID is [...] 1:30 PM EDT Hem/Onc Treatment Hematology/Oncology Treatment, [address] [address] [facility], Chair4 Hem Onc [address] [place], [place] [address] [address] 07/31/2023 12:30 PM EDT Laboratory Laboratory, [address] [phone] [facility], Lab [address] [place], [place] [address] 07/31/2023 1:30 PM EDT Hem/Onc Treatment Hematology/Oncology Treatment, [address] [place] [address] [facility], Chair2 Hem Onc [address] [place], [place] [address] [address] 08/03/2023 8:00 AM EDT Laboratory Laboratory, [address] [place] [address] [facility], Lab [address] [place] [address] 08/03/2023 9:00 AM EDT Immunization/Injection Hematology/Oncology Treatment, [address] [place] [address] [facility], Chair8 Hem Onc [address] [place] [address], [place] [address] 08/06/2023 8:20 AM EDT Laboratory Laboratory, [address] [address] [facility], Lab [address] [place] [address], [place] [address] 08/06/2023 9:30 AM EDT Office Visit Hematology/Oncology, [address] [place] [address] Lakeshia Stone CRNP [address] [place] [address] 08/10/2023 9:00 AM EDT Laboratory Laboratory, [address] [place] [address] [facility], Lab [address] [place] [address], [place] [address] 08/10/2023 10:00 AM EDT Office Visit Hematology/Oncology, [address] [address] Ritika Godfrey CRNP [address] [place] [address] 08/12/2023 2:00 PM EDT Appointment Radiology, [place] [address] [place] [address] 08/13/2023 11:00 AM EDT Laboratory Laboratory, [address] [address] [facility], Lab [address] [place] [address] 08/13/2023 11:45 AM EDT Appointment Radiology, [address] [address] 08/17/2023 9:00 AM EDT Laboratory Laboratory, [address] [address] [facility], Lab [address] [place] [address], [place] [address] 08/17/2023 10:00 AM EDT Telemedicine Hematology/Oncology, [address] [place] [address] Mike Chaudhary MD [address] [place] [facility] [place] [address] Herve Hurtadoed [facility] Hem Onc Clinic [address] [place] [address], [place] [address] 08/17/2023 10:30 AM EDT Hem/Onc Treatment Hematology/Oncology Treatment, [address] [place] [address] [facility], Chair5 Hem Onc [address] [place] [address], [place] [address] 08/17/2023 1:00 PM EDT Office Visit Palliative Medicine, [address] 5th [place] [address] Aury Silva MD [address] [place] [address] 08/26/2023 1:00 PM EDT Office Visit Sleep Disorders, [address] [address] Dave Daigle PA-C [address] [place] [address] 09/25/2023 2:40 PM EDT Office Visit Rheumatology [address] [place] [address] Oliver Zhang MD [address] [place] [address], [place] [address] 02/19/2024 12:00 PM EST Office Visit Family Practice [facility] [place] [address] [facility] [place]NST [place] [address] Kayla Reeder DO [address] [facility] [address] Scheduled Orders Name Type Priority Associated Diagnoses [...] this encounter Medical Devices Implanted Type Area Prop And Scenery Maker Device Identifier Shelf Expiration Date Model / Serial / Lot Madiport Pwr Mri 8fr [id number] - [id number] Implanted:Qty : 1 on 07/17/2023 by Medhat Angel MD at OR [facility] Right: Chest CR BARD : PERIPHERAL VASCULAR 07/16/2024 [id number] / / [id number] Port Implant W8f Poly Cath - [id number] Implanted:Qty : 1 on 07/17/2023 by Medhat Angel MD at OR [facility] CR BARD : PERIPHERAL VASCULAR [id number] 07/16/2024 [id number] / / [id number] documented as of this encounter Visit Diagnoses [...] sulfate 1.9 mg, DOXOrubicin (Adriamycin) 48 mg [facility] INFUSION [facility]ICE 48 HOUR infusion [...] Agents on File Name Relationship Healthcare Agent [facility] p Communication Trixie Le [facility] Repr esentative (appointed verbally by patient or by statute hierarchy) [email or web address] Care Teams Pharmacy Technician Inpatient Relationship Specialty Start Date End Date Kayla Reeder DO [address] [facility] [place]NST [place] [address] PCP - General Family Medicine 06/11/23 documented as of this encounter
--- OUTSIDE RECORDS SUMMARY | 2023-09-18 21:30 | External Medical Summary ---
Author Name Unknown Address Unknown Organization K1F:LABORATORY [facility] - [address] [facility]. [place] [address] Laboratory Report Ordering Provider Test Date Status MATTI BARAJAS 07/27/2023 08:10:03 Final Observation Date Value Abnormality Reference (Units ) Status SYNC LEUKOCYTES IN BLOOD BY AUTOMATED COUNT 07/27/2023 08:10:03 4.67 4.00-10.80 (K/uL) Final Segs 07/27/2023 08:10:03 68.2 40.0-75.0 (%) Final Lymphs % 07/27/2023 08:10:03 14.3 Below low normal 18.0-42.0 (%) Final Monos 07/27/2023 08:10:03 15.8 Above high normal 1.0-11.0 (%) Final Eosinophils 07/27/2023 08:10:03 0.0 0.0-6.0 (%) Final Basos 07/27/2023 08:10:03 1.1 0.0-2.0 (%) Final Immature Granulocyte, Percent 07/27/2023 08:10:03 0.6 0.0-2.0 (%) Final Absolute Segs 07/27/2023 08:10:03 3.18 1.80-7.70 (K/uL) Final Lymphs, absolute 07/27/2023 08:10:03 0.67 Below low normal 1.00-4.80 (K/ul) Final Monos, Abs 07/27/2023 08:10:03 0.74 0.00-1.10 (K/uL) Final Eos, Abs 07/27/2023 08:10:03 0.00 0.00-0.70 (K/uL) Final Basos, Abs 07/27/2023 08:10:03 0.05 0.00-0.20 (K/uL) Final Immature Granulocytes, Number 07/27/2023 08:10:03 0.03 0.00-0.20 (K/uL) Final Performing Location LABORATORY [facility] - [address] [place], [place] [address]keyonna Pizano. Jarek [place] [address]
--- OUTSIDE RECORDS SUMMARY | 2023-09-18 21:30 | External Medical Summary ---
Author Name Unknown Address Unknown Organization K1F:LABORATORY [facility] - [address] [place] [address] Laboratory Report Ordering Provider Test Date Status MATTI BARAJAS 07/27/2023 08:10:03 Final Observation Date Value Abnormality Reference (Units ) Status WBC, Total 07/27/2023 08:10:03 4.67 4.00-10.80 (K/uL) Final RBC 07/27/2023 08:10:03 3.44 4.50-5.25 (M/uL) Final Hemoglobin 07/27/2023 08:10:03 10.6 Below low normal 14.0-16.8 (g/dL) Final HCT 07/27/2023 08:10:03 31.0 Below low normal 40.0-48.4 (%) Final MCV 07/27/2023 08:10:03 90.1 82.0-99.5 (fL) Final MCH 07/27/2023 08:10:03 30.8 27.0-34.0 (pg) Final MCHC 07/27/2023 08:10:03 34.2 32.0-36.0 (g/dL) Final RDW 07/27/2023 08:10:03 16.8 11.5-15.5 (%) Final Platelets 07/27/2023 08:10:03 168 140-400 (K/uL) Final MPV 07/27/2023 08:10:03 9.7 6.6-11.1 (fL) Final Nucleated erythrocytes/100 leukocytes [Ratio] in Blood by Automated count 07/27/2023 08:10:03 0 <=0 (/100 WBCs) Final Performing Location LAB[facility]ATORY [facility] - [address] [place] [address]
--- OUTSIDE RECORDS SUMMARY | 2023-09-18 21:30 | External Medical Summary | Summary of Care ---
Author Name Unknown Organization [facility] Address [address] [place] [address] Phone [phone] Care Team Providers Care Hired Worker Name Role Phone Kayla Reeder DO Primary Care Provider +1- [phone] Encounter Details Date Type Department Care Team (Late st Contact Info) Description 07/24/2023 Orders Only [facility] RX [address] [place] [address] Lakeshia Stone CRNP [address] [place] [address] Allergies No known active allergiesdocumented as of this encounter (statuses as of 07/24/2023) Medications Medication Sig Dispensed Refills Start Date [...] BEFORE BEDTIME) 180 Tablet 3 02/23/2023 Active hydroCHLOROthiazid e 12.5 MG Oral Capsule (Hydrodiuril)Indic ations:History of petit-mal seizures Take 1 Capsule by mouth in the morning. 90 Capsule 1 03/02/2023 Active Loratadine 10 MG Oral Tablet (Claritin)Indicati ons:Chronic cough Take 1 Tablet by mouth in the morning. 30 Tablet 11 05/01/2023 Active Celecoxib 200 MG Oral Capsule (CeleBREX)Indicati [...] or Cough. 18 g 1 06/09/2023 Active Fluticasone-Salmet alex 250-50 MCG/ACT Inhalation Aerosol Powder Breath Activated (Advair Diskus)Indications :Chronic cough INHALE ONE PUFF BY MOUTH EVERY MORNING AND ONE PUFF BEFORE BEDTIME 60 Each 5 06/11/2023 Active HYDROmorphone HCl 2 MG Oral Tablet (Dilaudid) Take 1.5 Tablets by mouth every 4 hours as needed for moderate or severe pain 100 Tablet 07/07/2023 Active Sulfamethoxazole-T rimethoprim 400-80 MG Oral Tablet (Bactrim) Take 1 Tablet by mouth in the morning. 30 Tablet 1 07/08/2023 Active Sennosides-Docusat e Sodium 8.6-50 MG Oral [...] 2 Each 3 07/07/2023 Active Magic Swizzle (Lidocaine-Benadry l-Maalox) oral solution [...] Tablets in the evening. 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 60 Tablet 1 07/24/2023 Active Potassium Chloride [facility] 10 MEQ Oral Tablet Extended ReleaseIndications :Hypokalemia Take 2 Tablets by mouth in the morning and 2 Tablets before bedtime. Do all this for 14 days. 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 When ANC less than 500. 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 30 Tablet 07/24/2023 Active Hospital, Clinic, or Other Facility Administered Medication Ordered Dose Route Frequency Start Date End Date Status etoposide (VEPESID) 240 mg, vinCRIStine sulfate 1.91 mg, DOXOrubicin (Adriamycin) 48 mg in NSS 1,500 mL infusion IV CONTINUOUS 07/24/2023 07/26/2023 Active etoposide (VEPESID), vinCRIStine sulfate 0.96 mg, DOXOrubicin (Adriamycin) in NSS 500 mL infusion IV CONTINUOUS 07/24/2023 07/24/2023 Discontin ued documented as of this encounter (statuses as of 07/24/2023) Active Problems Problem Noted Date Diagnosed Date [...] as of this encounter (statuses as of 07/24/2023) Resolved Problems Problem Noted Date Diagnosed Date [...] as of this encounter (statuses as of 07/24/2023) Immunizations Name Administration Dates Next Due DT [...] Care Team (Latest Contact Info) Description 07/27/2023 8:00 AM EDT Laboratory Laboratory, [address] [address] [facility], Lab [address] [place] [address] 07/27/2023 9:00 AM EDT Office Visit Hematology/Oncolog y, [address] [place] [address] Mike Chaudhary MD [address] [place] [address] 07/27/2023 10:00 AM EDT Hem/Onc Treatment Hematology/Oncolog y Treatment, [address] [address] 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) 07/27/2023 10:30 AM EDT Office Visit Palliative Medicine, [facility] 400 [facility] 5th [place] [address] Gabriella Florian CRNP [address] [place] [address] 08/12/2023 2:00 PM EDT Appointment Radiology, [address] [phone] 08/26/2023 1:00 PM EDT Office Visit Sleep Disorders, [facility] [address] [place] [address] Dave Daigle PA-C [address] [place] [address] 09/25/2023 2:40 PM EDT Office Visit Rheumatology [address] [place] [address] Oliver Zhang MD [address] [place] [address] [place] [address] 02/19/2024 12:00 PM EST Office Visit Family Practice [address] [place] [address] [place] [place] [address] Kayla Reeder DO [address] [place] [place] [address] Health Maintenance Due Date Last Done Comments COVID-19 Vaccine (#1) 1993 Influenza Vaccine (FLU shot) (Season Ended) 2023 11/17/2016, 11/17/2016, 11/30/2015, Additional history exists Depression Screening 07/07/2024 07/08/2023, 06/11/19 24 Albumin/Creatinine Ratio Discontinued 08/02/2021 documented as of this encounter Medical Devices Implanted Type Area Project/Production Manager Imaging Device Identifier Shelf Expiration Date Model / Serial / Lot Mediport Pwr Mri 8fr [id number] - [id number] Implanted:Qty : 1 on 07/17/2023 by Medhat Angel MD at OR [facility] Right: Chest CR BARD : PERIPHERAL VASCULAR 07/16/2024 [id number] / / [id number] Port Implant W8f Poly Cath - [id number] Implanted:Qty : 1 on 07/17/2023 by Medhat Angel MD at OR [facility] CR BARD : PERIPHERAL VASCULAR [id number] 07/16/2024 [id number] / / [id number] documented as of this encounter Advance Directives [...] Healthcare Agent Relationshi p Communication Trixie Le [facility] Repr esentative (appointed verbally by patient or by statute hierarchy) [email or web address] Care Teams Hired Worker Relationship Specialty Start Date End Date Kayla Reeder DO [address] [facility] [place]ST [place] [address] PCP - General Family Medicine 06/11/23 documented as of this encounter
--- OUTSIDE RECORDS SUMMARY | 2023-09-18 21:30 | External Medical Summary | Summary of Care ---
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 Take twice a day with food on Days 1-5 of EPOCH treatment only. 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) 07/27/2023 10:30 AM EDT Office Visit Palliative Medicine, [address]th [place] [address] Gabriella Florian CRNP [address] [place] [address] Arrived 08/12/2023 2:00 PM EDT Appointment Radiology, [address] [address] 08/26/2023 1:00 PM EDT Office Visit Sleep Disorders, [address] [address] Dave Daigle PA-C [address] [place] [address] 09/25/2023 2:40 PM EDT Office Visit Rheumatology [address] [place] [address] Oliver Zhang MD [address] [place] [address] [place] [address] 02/19/2024 12:00 PM EST Office Visit Family Practice [facility] Maribell Garcia [address] [facility] [place] [place] [address] Kayla Reeder DO [address] [facility] [place] [place] [address] Pending Results Name Type Priority Associated Diagnoses Date /Time COMPREHENSIVE METABOLIC PANEL Lab STAT 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) 07/27/2023 8:10 AM EDT URIC ACID Lab STAT 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) 07/27/2023 8:10 AM EDT LD Lab STAT 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) 07/27/2023 8:10 AM EDT URINALYSIS, REFLEX TO MICROSCOPIC Lab STAT 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) 07/27/2023 8:10 AM EDT Health Maintenance Due Date Last Done Comments COVID-19 Vaccine (#1) 1993 Influenza Vaccine (FLU shot) (Season Ended) 2023 11/17/2016, 11/17/2016, 11/30/2015, Additional history exists Depression Screening 07/07/2024 07/08/2023, 06/11/19 24 Albumin/Creatinine Ratio Discontinued 08/02/2021 documented as of this encounter Medical Devices Implanted Type Area Salt Plant Operator Device Identifier Shelf Expiration Date Model / Serial / Lot Mediport Pwr Mri 8fr [id number] - [id number] Implanted:Qty : 1 on 07/17/2023 by Medhat Angel MD at OR [facility] Right: Chest CR BARD : PERIPHERAL VASCULAR 07/16/2024 [id number] / / [id number] Port Implant W8f Poly Cath - [id number] Implanted:Qty : 1 on 07/17/2023 by Medhat Angel MD at OR [facility] CR BARD : PERIPHERAL VASCULAR [id number] 07/16/2024 [id number] / / [id number] documented as of this encounter Procedures Procedure Name Priority Date/Time Associated Diagnosis Comments DIFFERENTIAL, AUTOMATED STAT 07/27/2023 8:10 AM EDT 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) CBC STAT 07/27/2023 8:10 AM EDT 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) CBC STAT 07/27/2023 8:10 AM EDT 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) documented in this encounter Results * (ABNORMAL) DIFFERENTIAL, AUTOMATED (07/27/2023 8:10 AM EDT) WBC 4.67 4.00 - 10.80 K/uL 07/27/2023 8:20 AM EDT LABORATORY GL Neutrophils % 68.2 40.0 - 75.0 % 07/27/2023 8:20 AM EDT LABORATORY GL Lymphocytes % 14.3(L) 18.0 - 42.0 % 07/27/2023 8:20 AM EDT LABORATORY [facility] Monocytes % 15.8(H) 1.0 - 11.0 % 07/27/2023 8:20 AM EDT LABORATORY [facility] Eosinophils % 0.0 0.0 - 6.0 % 07/27/2023 8:20 AM EDT LABORATORY [facility] Basophils % 1.1 0.0 - 2.0 % 07/27/2023 8:20 AM EDT LABORATORY [facility] Immature Granulocytes % 0.6 0.0 - 2.0 % 07/27/2023 8:20 AM EDT LABORATORY [facility] Absolute Neutrophils 3.18 1.80 - 7.70 K/uL 07/27/2023 8:20 AM EDT LABORATORY [facility] Absolute Lymphocytes 0.67(L) 1.00 - 4.80 K/ul 07/27/2023 8:20 AM EDT LABORATORY GL Absolute Monocytes 0.74 0.00 - 1.10 K/uL 07/27/2023 8:20 AM EDT LABORATORY GL Absolute Eosinophils 0.00 0.00 - 0.70 K/uL 07/27/2023 8:20 AM EDT LABORATORY GL Absolute Basophils 0.05 0.00 - 0.20 K/uL 07/27/2023 8:20 AM EDT LABORATORY GL Absolute Immature Granulocytes 0.03 0.00 - 0.20 K/uL 07/27/2023 8:20 AM EDT LABORATORY [facility] Blood Venous blood specimen / Unknown Venipuncture / Unknown 07/27/2023 8:10 AM EDT 07/27/2023 8:10 AM EDT Mike Chaudhary MD LAB BLOOD O RDERABLES LABORATORY [facility] [address] [place] [address] * (ABNORMAL) CBC (07/27/2023 8:10 AM EDT) Pathologist [facility] WBC 4.67 4.00 - 10.80 K/uL 07/27/2023 8:20 AM EDT LABORATORY [facility] RBC 3.44 4.50 - 5.25 M/uL 07/27/2023 8:20 AM EDT LABORATORY [facility] HGB 10.6(L) 14.0 - 16.8 g/dL 07/27/2023 8:20 AM EDT LABORATORY [facility] HCT 31.0(L) 40.0 - 48.4 % 07/27/2023 8:20 AM EDT LABORATORY [facility] MCV 90.1 82.0 - 99.5 fL 07/27/2023 8:20 AM EDT LABORATORY [facility] MCH 30.8 27.0 - 34.0 pg 07/27/2023 8:20 AM EDT LABORATORY [facility] MCHC 34.2 32.0 - 36.0 g/dL 07/27/2023 8:20 AM EDT LABORATORY [facility] RDW 16.8 11.5 - 15.5 % 07/27/2023 8:20 AM EDT LABORATORY [facility] PLT 168 140 - 400 K/uL 07/27/2023 8:20 AM EDT LABORATORY [facility] MPV 9.7 6.6 - 11.1 fL 07/27/2023 8:20 AM EDT LABORATORY [facility] nRBCs 0 <=0 /100 WBCs 07/27/2023 8:20 AM EDT LABORATORY GL Blood Venous blood specimen / Unknown Venipuncture / Unknown 07/27/2023 8:10 AM EDT 07/27/2023 8:10 AM EDT Mike Chaudhary MD LAB BLOOD O RDERABLES LAB[facility]ORY [facility] [address] [facility] [place]ST [place] [address] documented in this encounter Visit Diagnoses Diagnosis EBV (+) [...] Agents on File Name Relationship Healthcare Agent [facility] p Communication Trixie Le [facility] Repr esentative (appointed verbally by patient or by statute hierarchy) [email or web address] Care Teams Certified Composites Technician Relationship Specialty Start Date End Date Kayla Reeder DO [address] [facility] [place] [address] PCP - General Family Medicine 06/11/23 documented as of this encounter
--- OUTSIDE RECORDS SUMMARY | 2023-09-18 21:30 | External Medical Summary ---
Author Name Unknown Address Unknown Organization K1F:[facility] [address] [facility] [place] [address] Laboratory Report Ordering Provider Test Date Status MATTI BARAJAS 07/27/2023 08:10:03 Final Observation Date Value Abnormality Reference (Units ) Status BUN 07/27/2023 08:10:03 12 6-20 (mg/dL) Final Creatinine 07/27/2023 08:10:03 0.9 0.6-1.2 (mg/dL) Final Glomerular filtration rate/1.73 sq M.predicted [Volume Rate/Area] in Serum, Plasma or Blood by Creatinine-based formula (CKD-EPI) 07/27/2023 08:10:03 >90 >=60 (mL/min) Final eGFR is calculated based on the CKD-EPI 2020 equation Sodium 07/27/2023 08:10:03 140 135-146 (m mol/L) Final Potassium 07/27/2023 08:10:03 3.5 3.5-5.1 (m mol/L) Final Cl 07/27/2023 08:10:03 109 Above high normal 98 -107 (mmol/L) Final CO2 07/27/2023 08:10:03 23 22-32 (mmo l/L) Final Anion gap 07/27/2023 08:10:03 8 7-15 (mmol /L) Final Glucose 07/27/2023 08:10:03 96 70-120 (mg /dL) Final Albumin 07/27/2023 08:10:03 4.1 3.8-5.0 (g /dL) Final AST (Aspartate aminotransferase) 07/27/2023 08:10:03 33 10-50 (U/L) Fin al Results may be falsely eleva ketan due to hemolysis. Alk Phos 07/27/2023 08:10:03 93 35-130 (U/ L) Final Bilirubin, Total 07/27/2023 08:10:03 <0.2 <=1 .2 (mg/dL) Final Calcium 07/27/2023 08:10:03 9.2 8.4-10.2 ( mg/dL) Final Protein 07/27/2023 08:10:03 6.7 6.0-8.3 (g /dL) Final ALT (Alanine aminotransferase) 07/27/2023 08:10:03 46 10-50 (U/L) Final Performing Location LABORATORY [facility] - [facility] [place]y [place] [address]
--- OUTSIDE RECORDS SUMMARY | 2023-09-18 21:30 | External Medical Summary ---
Author Name Unknown Address Unknown Organization K1F:LABORATORY [facility] - [address] [place] [address] Laboratory Report Ordering Provider Test Date Status MATTI BARAJAS 07/27/2023 08:10:03 Final Observation Date Value Abnormality Reference (Units ) Status Uric Acid 07/27/2023 08:10:03 5.0 3.4-7.0 (m g/dL) Final Performing Location [facility] - [address] [place] [place] [address]
--- OUTSIDE RECORDS SUMMARY | 2023-09-18 21:30 | External Medical Summary ---
Author Name Unknown Address Unknown Organization K1F:LABORATORY [facility] - [address] [place] [address] Laboratory Report Ordering Provider Test Date Status MATTI BARAJAS 07/27/2023 08:10:03 Final Observation Date Value Abnormality Reference (Units ) Status LDH 07/27/2023 08:10:03 304 Above high normal <= 250 (U/L) Final Results may be falsely eleva ketan due to hemolysis. Performing Location LAB[facility]ATORY [facility] - [address] [place] [place] [address]
--- OUTSIDE RECORDS SUMMARY | 2023-09-18 21:30 | External Medical Summary | Summary of Care ---
Author Name Unknown Organization 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 [address] Referral ID Status Reason Start Date Expiration Date Visits Re quested Visits Authorized [id number] Closed 07/02/2023 01/02/[phone] Encounter Details Date Type Department Care Team ([facility] st Contact Info) Description 07/09/2023 8:00 AM EDT Immunization/I njection Hematology/Oncology Treatment, 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 90 Capsule 1 4 Active Loratadine 10 MG Oral Tablet (Claritin)Indica tions:Chronic cough Take 1 Tablet by mouth in the morning. 30 Tablet 11 4 Active Celecoxib 200 MG Oral Capsule (CeleBREX)Indica tions:Migraine with aura and without status migrainosus, not intractable Take 1 Capsule by mouth in the morning. Every morning.. 30 Capsule 3 4 Active Pantoprazole Sodium 40 MG Oral Tablet Delayed Release (Protonix)Indica tions:Gastroesop hageal reflux disease with esophagitis without hemorrhage TAKE ONE TABLET BY MOUTH EVERY MORNING 30 MINUTES BEFORE THE FIRST MEAL OF THE DAY. DO NOT CRUSH,SPLIT OR CHEW THE TABLET 30 Tablet 5 4 Active Proventil HFA 108 (90 Base) MCG/ACT Inhalation Aerosol SolutionIndicati ons:Chronic cough Inhale 2 Puffs by mouth every 4 hours as needed for Wheezing, Shortness of Breath or Cough. 18 g 1 4 Active Fluticasone-Salm eterol 250-50 MCG/ACT Inhalation Aerosol Powder Breath Activated (Advair Diskus)Indicatio ns:Chronic cough INHALE ONE PUFF BY MOUTH EVERY MORNING AND ONE PUFF BEFORE BEDTIME 60 Each 5 4 Active HYDROmorphone HCl 2 MG Oral Tablet (Dilaudid) Take 1.5 Tablets by mouth every 4 hours as needed for moderate or severe pain 100 Tablet 4 Active Sulfamethoxazole -Trimethoprim 400-80 MG Oral Tablet (Bactrim) Take 1 Tablet by mouth in the morning. 30 Tablet 1 4 Active Sennosides-Docus ate Sodium 8.6-50 MG Oral Tablet (Senokot-S) Take [...] other nostril. 2 Each 3 4 Active Buprenorphine HCl 2 MG Sublingual Tablet Sublingual (Subutex) Place 0.5 (one-half) tablet under the tongue three times a day (morning, noon, before bedtime) for 1 day. 2 Tablet 4 07/14/19 24 Discontinued Buprenorphine HCl 2 MG Sublingual Tablet Sublingual (Subutex) Place one-half tablet under the tongue in the morning and one-half tablet in the evening. Do all this for 21 days. 21 Tablet 4 07/22/19 24 Discontinued(Ref ill) Fluconazole 200 MG Oral Tablet (Diflucan) Take 2 Tablets by mouth in the morning. 60 Tablet 1 4 07/24/19 24 Discontinued(Ref ill) Acyclovir 400 MG Oral Tablet (Zovirax) Take 1 Tablet by mouth in the morning and 1 Tablet before bedtime. 60 Tablet 2 4 07/20/19 24 Discontinued(End of Procedure) Ciprofloxacin HCl 500 MG Oral Tablet (Cipro) Take 1 Tablet by mouth in the morning and 1 Tablet before bedtime. 60 Tablet 4 07/14/19 24 Discontinued Amoxicillin-Pot Clavulanate 875-125 MG Oral Tablet (Augmentin) Take 1 Tablet by mouth in the morning and 1 Tablet before bedtime. Do all this for 9 days. 18 Tablet 4 07/16/19 24 Allopurinol 300 MG Oral Tablet (Zyloprim) Take 1 Tablet by mouth daily in the morning. 30 Tablet 1 4 07/24/19 24 Discontinued(Ref ill) Ondansetron HCl 4 MG Oral TabletIndication s:Need for case management follow-up,Burkit t lymphoma of intra-abdominal lymph nodes (HCC) Take 1 Tablet by mouth every 6 hours as needed for Nausea. 30 Tablet 4 07/24/19 24 Discontinued(Ref ill) documented as of this encounter (statuses as of 07/27/2023) Active Problems Problem Noted Date Diagnosed Date Neoplastic (malignant) related fatigue Therapeutic opioid-induced constipation [...] Sign Reading Time Taken Comments Blood Pressure - - Pulse - - Temperature 36.9 C (98.4 F) 07/09/2023 8:04 AM ED T Respiratory Rate - - Oxygen Saturation - - Inhaled Oxygen Concentration - - Weight - - Height - - Body Mass Index - - documented in this encounter Functional Status Functional Status Response Date of Assess ment Are you deaf or do you have serious difficulty h earing? No 06/20/2023 Are you blind or do you have serious difficulty seeing, even when wearing glasses? No 06/20/2023 Do you have serious difficul ty walking or climbing stairs? (5 years old or older) Yes 06/20/2023 Do you have difficulty dress ing or bathing? (5 years old or older) No 06/20/2023 Because of a physical, menta l, or emotional condition, do you have difficulty doing errands alone such as visiting a doctor s office or shopping? (15 years old or older) No 06/20/19 Cognitive Status Response Date of Assessm ent Because of a physical, menta l, or emotional condition, do you have serious difficulty concentrating, remembering, or making decisions? (5 years old or older) No 06/20/2023 documented as of this encounter Nursing Notes * Marilee Samuel, RN - 07/09/2023 8:04 AM EDT Chair # 6 Nyvepria injection given RADHA. Pt is afebrile today and at home. Patient left IVC by ambulating. Unaccompanied. Voiced no complaints. Marilee Samuel RN 07/09/2023 8:05 AM documented in this encounter Plan of Treatment Upcoming Encounters Date Type Department Care Team (Latest Contact Info) Description 07/27/2023 8:00 AM EDT Laboratory Laboratory, [address] [place] [phone] [facility], Lab [address] [place] [address] Arrived 07/27/2023 9:00 AM EDT Office Visit Hematology/Oncolog y, [address] [address] Mike Chaudhary MD [address] [place] [address] 07/27/2023 10:00 AM EDT Hem/Onc Treatment Hematology/Oncolog y Treatment, [address] [address] [facility], Chair2 Hem Onc [address] [place] [address] Encounter for antineoplastic chemotherapy*; 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) 07/27/2023 10:30 AM EDT Office Visit Palliative Medicine, [address] 5[address] [place] [address] Gabriella Florian CRNP [address] [place] [address] 08/12/2023 2:00 PM EDT Appointment Radiology, [place] [address] [place] [phone] 08/26/2023 1:00 PM EDT Office Visit Sleep Disorders, [address] [address] Dave Daigle PA-C [address] [place] [address] 09/25/2023 2:40 PM EDT Office Visit Rheumatology [address] [place], [place] [address] Oliver Zhang MD [address] [place] [address] 02/19/2024 12:00 PM EST Office Visit Family Practice [address], [place] [address] [place] [address] Kayla Reeder, [address] [place] [address] Health Maintenance Due Date Last Done Comments COVID-19 Vaccine (#1) 1993 Influenza Vaccine (FLU shot) (Season Ended) 2023 11/17/2016, 11/17/2016, 11/30/2015, Additional history exists Depression Screening 07/07/2024 07/08/2023, 06/11/19 24 Albumin/Creatinine Ratio Discontinued 08/02/2021 documented as of this encounter Medical Devices Not on filedocumented as of this encounter Visit Diagnoses Diagnosis [...] 6 mg 6 mg, Subcutaneous, ONCE, On Thu07/09/23 at 0830, For 1 dose, +++ IVC for 07/08 +++ Given 07/09/2023 8:02 AM EDT 6 mg Arm Right Upper documented in this encounter Advance Directives [...] Agent Relationshi p Communication Trixie Le Mckay [facility] Health Care Repr esentative (appointed verbally by patient or by statute hierarchy) [email or web address] Care Teams Road Machine Runner Relationship Specialty Start Date End Date Kayla Reeder DO [address] [facility] [place] [address] PCP - General Family Medicine 06/11/23 documented as of this encounter
--- OUTSIDE RECORDS SUMMARY | 2023-09-18 21:30 | External Medical Summary ---
Author Name Unknown Address Unknown Organization K1F:LABORATORY [facility] - [address] [place] [address] Laboratory Report Ordering Provider Test Date Status MATTI BARAJAS 07/27/2023 08:10:03 Final Observation Date Value Abnormality Reference (Units ) Status Color of Urine by Auto 07/27/2023 08:10:03 Yellow Light Yellow, Yellow, Dark Yellow Final Clarity, Urine 07/27/2023 08:10:03 Clear Clear Final Glucose [Mass/volume] in Urine by Automated test strip 07/27/2023 08:10:03 Negative Negative (mg/dL) Final Bilirubin.total [Presence] in Urine by Automated test strip 07/27/2023 08:10:03 Negative Negative Final Ketones [Mass/volume] in Urine by Automated test strip 07/27/2023 08:10:03 Negative Negative (mg/dL) Final Specific gravity, Urine 07/27/2023 08:10:03 1.019 1.003-1.030 Final Hemoglobin [Presence] in Urine by Automated test strip 07/27/2023 08:10:03 Negative Negative Final pH, Urine 07/27/2023 08:10:03 7.0 5.0-7.5 (Units) Final Protein [Mass/volume] in Urine by Automated test strip 07/27/2023 08:10:03 Trace Abnormal Negative (mg/dL) Final Urobilinogen [Mass/volume] in Urine by Automated test strip 07/27/2023 08:10:03 0.2 0.2, 1.0 (mg/dL) Final Nitrite [Presence] in Urine by Automated test strip 07/27/2023 08:10:03 Negative Negative Final Leukocyte esterase [Presence] in Urine by Automated test strip 07/27/2023 08:10:03 Negative Negative Final Annotation Comment 07/27/2023 08:10:03 Final Screen negative - Microscopi c not performed. Performing Location LABORATORY [facility] - [address] [place] [address]
--- OUTSIDE RECORDS SUMMARY | 2023-09-18 21:30 | External Medical Summary | Summary of Care ---
Author Name Unknown Organization [facility] Address [address] [place] [address] Phone [phone] Care Team Providers Care Fiber Worker Name Role Phone Kayla Reeder DO Primary Care Provider +1- [phone] Reason for Visit * Reason Comments Follow Up Encounter Details Date Type Department Care Team ([facility] st Contact Info) Description 07/24/2023 10:00 AM EDT Office Visit Hematology/Oncology, [facility] [address] [place] [address] Lakeshia Stone CRNP [address] [place] [address] Hypokalemia*; Need for case management [...] 2 Each 3 4 Active Magic Swizzle (Lidocaine-Tisha dryl-Maalox) oral solution Swish and spit 15 [...] Tablets in the evening. 30 Tablet 4 08/21/19 24 Active Allopurinol 300 MG Oral Tablet [...] the clinic, for rituxumab infusion and bag special education supervisor for etoposide Day 3: Thursday In the [...] Hematology/Oncology Outpatient Clinic note [facility] Hematology/Oncology, [address] [address] Name: Farhad Franco Date: 07/24/2023 CHIEF COMPLAINT: [...] subcutaneously given on 07/09/2023, no evidence of TEXTILE TECHNOLOGIST involvement. CURRENT TREATMENT*: R- EPOCH x1 on 07/02/2023 - 07/06/2023 with G-CSF on 07/09/2023 Completed inpatient at [facility] [place] [place] DA-R-EPOCH every 21 days with G-CSF support Outpatient plan to start 07/27/2023 Treatment Days 1-5, G-CSF Day 8 Intrathecal Methotrexate (21 day cycle) First treatment 07/02/2023 while inpatient at [facility] [place] [place] Second treatment 07/22/2023 Supportive Medications: Acyclovir 400 [...] 6 mg was given on 07/09/2023 at [facility]. Headache is less severe. 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 CSF was negative for lymphoma. He started treatment inpatient with R-EPOCH and IT Methotrexate. During hospitalization he experienced fatigue, weakness, lower extremity swelling, and complex pain for which Palliative Medicine was consulted and he was briefly on a morphine CAR RENTAL AGENCY MANAGER. Overall he feels that he did well [...] which he received IV while inpatient at [facility] [place] [place]. Appetite has been very poor, mostly snacking. 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 INSER TUNN ACC DEV;5 YRS/OLDER Right 07/17/2023 INSERT TUNNELED CENTRAL VENOUS ACCESS WITH SUBQ PORT performed by Medhat Angel MD at OR [facility] IR BIOPSY 06/22/2023 GA ANESTH,OPEN HEAD SURGERY Social History Socioeconomic History [...] the morning. 30 Tablet 0 Magic Swizzle (Gsiyboqxv-Qylxdhsp-Wyufur) oral solution Swish and spit 15 mL [...] K/uL IMAGING: FLUORO GUIDED CHEMO ADMIN INTO TEXTILE TECHNOLOGIST Result Date: 07/22/2023 IMPRESSION Successful fluoroscopy guided lumbar puncture and intrathecal chemotherapy administration without immediate complication. IR INTERVENTIONAL RADIOLOGY PROCEDURE IN OR Result Date: 07/17/2023 IMPRESSION: Successful placement of a chest power injectable medical port. MRI BRAIN W WO CONTRAST Result Date: 07/13/2023 IMPRESSION: No acute intracranial abnormality nor suspicious lesion. Chronic left CAR RENTAL AGENCY MANAGER territory infarct. CTA HEAD/CTA NECK Result [...] 11.5 PLT 71 --> 107 --> 177 Pv Design Engineer 1.0 --> 0.9 GFR >90 K 3.9 [...] Day 1 Second IT Chemo completed at [facility] [place] [place] 07/22/2023 Next scheduled 08/12/2023 Reviewed how to take all take home medications in the [place] Plan and supportive medications Emphasized need to [...] Description 07/27/2023 8:00 AM EDT Laboratory Laboratory, [address] [id number] [facility], Lab [address] [place] [address] 07/27/2023 9:00 AM EDT Office Visit Hematology/Oncolog y, [address] [address] Mike Chaudhary MD [address] [place] [address] 07/27/2023 10:00 AM EDT Hem/Onc Treatment Hematology/Oncolog y Treatment, [address] [address] [facility], Chair2 Hem Onc [address] [place] [address] Encounter for antineoplastic chemotherapy*; 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 [address] [facility] [place], [place] [address] Oliver Zhang MD [address] [facility] [place], [place] [address] 02/19/2024 12:00 PM EST Office Visit Family Practice [address], [place] [address] [place] [address] Kayla Reeder DO [address] [place] [address] Health Maintenance Due Date Last Done Comments COVID-19 Vaccine (#1) 1993 Influenza Vaccine (FLU shot) (Season Ended) 2023 11/17/2016, 11/17/2016, 11/30/2015, Additional history exists Depression Screening 07/07/2024 07/08/2023, 06/11/19 24 Albumin/Creatinine Ratio Discontinued 08/02/2021 documented as of this encounter Medical Devices Implanted Type Area Director Of Kids Device Identifier Shelf Expiration Date Model / Serial / Lot Mediport Pwr Mri 8fr [id number] - [id number] Implanted:Qty : 1 on 07/17/2023 by Medhat Angel MD at OR [facility] Right: Chest CR BARD : PERIPHERAL VASCULAR 07/16/2024 [id number] / / [id number] Port Implant W8f Poly Cath - [id number] Implanted:Qty : 1 on 07/17/2023 by Medhat Angel MD at OR [facility] CR BARD : PERIPHERAL VASCULAR [id number] 07/16/2024 [id number] / / [id number] documented as of this encounter Results * MAGNESIUM (07/24/2023 9:17 AM EDT) Magnesium 2.2 1.5 - 2.6 mg/dL 07/24/2023 6:33 PM EDT LABORATORY [facility] Blood Venous blood specimen / Unknown Venipuncture / Unknown 07/24/2023 9:17 AM EDT 07/24/2023 9:17 AM EDT Lakeshia Stone STOCK ORDER [facility] [address] [place] [address] documented in this encounter Visit Diagnoses Diagnosis Hypokalemia- Primary Hypopotassemia Need for case management follow-up 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) Burkitt's tumor or lymphoma of intra-abdominal lymph nodes Encounter for venous access device care Fitting and adjustment of vascular catheter Encounter for antineoplastic chemotherapy- Primary Burkitt lymphoma [...] [facility] p Communication Trixie Le [facility] Repr esentative (appointed verbally by patient or by statute hierarchy) [email or web address] Care Teams Fiber Worker Relationship Specialty Start Date End Date Kayla Reeder DO [address] [facility] [place] [address] PCP - General Family Medicine 06/11/23 documented as of this encounter
--- OUTSIDE RECORDS SUMMARY | 2023-09-18 21:31 | External Medical Summary | Summary of Care ---
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 30 Tablet 1 07/08/2023 Active Fluconazole 200 MG Oral Tablet (Diflucan) Take 2 Tablets by mouth in the morning. 60 Tablet 1 07/08/2023 Active Sennosides-Docusat e Sodium 8.6-50 MG Oral Tablet (Senokot-S) Take 2 Tablets by mouth in the morning and 2 Tablets in the evening. 60 Tablet 1 07/07/2023 Active Allopurinol 300 MG Oral Tablet (Zyloprim) Take 1 Tablet by mouth daily in the morning. 30 Tablet 1 07/08/2023 Active Naloxone HCl 4 MG/0.1ML Nasal Liquid (Narcan Nasal) Administer 1 nasal spray device into one nostril as needed for suspected opioid overdose. Seek medical help immediately. If no response after 2-3 minutes, administer second nasal spray device in other nostril. 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 30 Tablet 07/08/2023 Active levoFLOXacin 750 MG Oral Tablet (Levaquin) Take 1 Tablet by mouth in the morning. 30 Tablet 07/15/2023 08/14/2023 Active Magic Swizzle (Lidocaine-Benadry l-Maalox) oral solution [...] the evening. 30 Tablet 07/22/2023 08/21/2023 Active documented as of this encounter (statuses as of 07/23/2023) Active Problems Problem Noted Date Diagnosed Date [...] as of this encounter (statuses as of 07/23/2023) Resolved Problems Problem Noted Date Diagnosed Date [...] as of this encounter (statuses as of 07/23/2023) Immunizations Name Administration Dates Next Due DT [...] Team (Late st Contact Info) Description 07/24/2023 9:10 AM EDT Laboratory Laboratory, [address] [place] [address] [facility], Lab [address] [place] [address] 07/24/2023 10:00 AM EDT Office Visit Hematology/Oncology, [address] [address] Lakeshia Stone CRNP [address] [place] [address] 07/27/2023 8:00 AM EDT Laboratory Laboratory, [address] [id number] [facility], Lab [address] [place] [address] 07/27/2023 9:00 AM EDT Office Visit Hematology/Oncology, [address] [address] Mike Chaudhary MD [address] [place] [address] 07/27/2023 10:00 AM EDT Hem/Onc Treatment Hematology/Oncology Treatment, [address] [address] [facility], Chair2 Hem Onc [address] [place] [address] 07/27/2023 10:30 AM EDT Office Visit Palliative Medicine, [address] [place] [address] Gabriella Florian CRNP [address] [place] [address] 08/12/2023 2:00 PM EDT Appointment Radiology, [place] [address] [place] [facility] [place] [address] 08/26/2023 1:00 PM EDT Office Visit Sleep Disorders, [facility] [address] [facility] [place] [address] Dave Daigle PA-C [address] [place] [address] 09/25/2023 2:40 PM EDT Office Visit Rheumatology [place] [address] [facility] [place], [place] [address] Oliver Zhang MD [address] [place], [place] [address] 02/19/2024 12:00 PM EST Office Visit Family Practice [address], [place] [address] [place] [address] Kayla Reeder DO [address] [place] [address] Health Maintenance Due Date Last Done Comments COVID-19 Vaccine (#1) 1995 Influenza Vaccine (FLU shot) (Season Ended) 2023 11/17/2016, 11/17/2016, 11/30/2015, Additional history exists Depression Screening 07/07/2024 07/08/2023, 06/11/19 24 Albumin/Creatinine Ratio Discontinued 08/02/2021 documented as of this encounter Medical Devices Implanted Type Area Clamp Remover Device Identifier Shelf Expiration Date Model / Serial / Lot Mediport Pwr Mri 8fr [id number] - [id number] Implanted:Qty : 1 on 07/17/2023 by Medhat Angel MD at OR [facility] Right: Chest CR BARD : PERIPHERAL VASCULAR 07/16/2024 [id number] / / [id number] Port Implant W8f Poly Cath - [id number] Implanted:Qty : 1 on 07/17/2023 by Medhat Angel MD at OR [facility] CR BARD : PERIPHERAL VASCULAR [id number] 07/16/2024 [id number] / / [id number] documented as of this encounter Visit Diagnoses [...] Of [place] p Communication Trixie Le [facility] Repr esentative (appointed verbally by patient or by statute hierarchy) [email or web address] Care Teams Meal Attendant Relationship Specialty Start Date End Date Kayla Reeder DO [address] [facility] [place] [address] PCP - General Family Medicine 06/11/23 documented as of this encounter
--- OUTSIDE RECORDS SUMMARY | 2023-09-18 21:31 | External Medical Summary ---
Author Name Unknown Address Unknown Organization K01:LABORATORY [facility] - [address] [place] [address] Laboratory Report Ordering Provider Test Date Status MATTI BARAJAS 07/22/2023 14:45:00 Final Some reference ranges and ot her method performance specifications have not been established for this fluid. The test results must be integrated into the clinical context for interpretation. Observation Date Value Abnormality Reference (Units ) Status CSF, color 07/22/2023 14:45:00 Colorless Colorless Final CSF, clarity 07/22/2023 14:45:00 Clear Clear Final Color of Spun Cerebral spinal fluid 07/22/2023 14:45:00 Colorless Colorless Final Tube number of Cerebral spinal fluid 07/22/2023 14:45:00 3 Final Nucleated cells [#/volume] in Body fluid by Automated count 07/22/2023 14:45:00 2 <5 (cells/uL) Final Erythrocytes [#/volume] in Cerebral spinal fluid 07/22/2023 14:45:00 2 <5 (cells/uL) Final Performing Location LABORATORY [facility] - [address] [place] [address]
--- OUTSIDE RECORDS SUMMARY | 2023-09-18 21:31 | External Medical Summary ---
Author Name Unknown Address Unknown Organization K1F:[facility] [address] [place] [address] Laboratory Report Ordering Provider Test Date Status MATTI BARAJAS 07/24/2023 09:17:33 Final Observation Date Value Abnormality Reference (Units ) Status BUN 07/24/2023 09:17:33 15 6-20 (mg/dL) Final Creatinine 07/24/2023 09:17:33 0.9 0.6-1.2 (mg/dL) Final Glomerular filtration rate/1.73 sq M.predicted [Volume Rate/Area] in Serum, Plasma or Blood by Creatinine-based formula (CKD-EPI) 07/24/2023 09:17:33 >90 >=60 (mL/min) Final eGFR is calculated based on the CKD-EPI 2020 equation Sodium 07/24/2023 09:17:33 141 135-146 (m mol/L) Final Potassium 07/24/2023 09:17:33 3.1 Below low normal 3.5 -5.1 (mmol/L) Final Cl 07/24/2023 09:17:33 107 98-107 (mm ol/L) Final CO2 07/24/2023 09:17:33 21 Below low normal 22- 32 (mmol/L) Final Anion gap 07/24/2023 09:17:33 13 7-15 (mmol /L) Final Glucose 07/24/2023 09:17:33 122 Above high normal 70 -120 (mg/dL) Final Albumin 07/24/2023 09:17:33 4.2 3.8-5.0 (g /dL) Final AST (Aspartate aminotransferase) 07/24/2023 09:17:33 30 10-50 (U/L) Fin al Alk Phos 07/24/2023 09:17:33 103 35-130 (U/ L) Final Bilirubin, Total 07/24/2023 09:17:33 0.2 <=1 .2 (mg/dL) Final Calcium 07/24/2023 09:17:33 9.6 8.4-10.2 ( mg/dL) Final Protein 07/24/2023 09:17:33 6.8 6.0-8.3 (g /dL) Final ALT (Alanine aminotransferase) 07/24/2023 09:17:33 47 10-50 (U/L) Jaswinder mullen Performing Location [address]ATORY [address] [place] [address]
--- OUTSIDE RECORDS SUMMARY | 2023-09-18 21:31 | External Medical Summary ---
Author Name Unknown Address Unknown Organization K1F:LABORATORY [facility] - [address] [place] [address] Laboratory Report Ordering Provider Test Date Status MATTI BARAJAS 07/24/2023 09:17:33 Final Observation Date Value Abnormality Reference (Units ) Status WBC, Total 07/24/2023 09:17:33 4.54 4.00-10.80 (K/uL) Final RBC 07/24/2023 09:17:33 3.74 4.50-5.25 (M/uL) Final Hemoglobin 07/24/2023 09:17:33 11.5 Below low normal 14.0-16.8 (g/dL) Final HCT 07/24/2023 09:17:33 32.9 Below low normal 40.0-48.4 (%) Final MCV 07/24/2023 09:17:33 88.0 82.0-99.5 (fL) Final MCH 07/24/2023 09:17:33 30.7 27.0-34.0 (pg) Final MCHC 07/24/2023 09:17:33 35.0 32.0-36.0 (g/dL) Final RDW 07/24/2023 09:17:33 16.4 11.5-15.5 (%) Final Platelets 07/24/2023 09:17:33 177 140-400 (K/uL) Final MPV 07/24/2023 09:17:33 9.8 6.6-11.1 (fL) Final Nucleated erythrocytes/100 leukocytes [Ratio] in Blood by Automated count 07/24/2023 09:17:33 0 <=0 (/100 WBCs) Final Performing Location LABORATORY [facility] - [address] [place] [address]
--- OUTSIDE RECORDS SUMMARY | 2023-09-18 21:31 | External Medical Summary | Summary of Care ---
Author Name Unknown Organization [facility] Address [address] [place] [address] Phone [phone] Care Team Providers Care Kidney Trimmer Name Role Phone Varinder Kayla Clarke DO Primary Care Provider +1- [phone] Reason for Visit * Reason Comments Outpatient Testing Encounter Details Date Type Department Care Team ([facility] st Contact Info) Description 07/24/2023 9:10 AM EDT Laboratory Laboratory, [facility] [address] [place] [phone] [facility], Lab [address] [place] [address] Burkitt lymphoma of intra-abdominal lymph [...] Breath or Cough. 18 g 06/09/2023 Active Fluticasone-Salmet alex 250-50 MCG/ACT Inhalation [...] in the morning. 30 Tablet 07/08/2023 Active Fluconazole 200 MG Oral Tablet (Diflucan) Take 2 Tablets by mouth in the morning. 60 Tablet 07/08/2023 Active Sennosides-Docusat e Sodium 8.6-50 MG [...] Team (Late st Contact Info) Description 07/24/2023 10:00 AM EDT Office Visit Hematology/Oncology, [address] [place] [address] Lakeshia Stone CRNP [address] [place] [address] Arrived 07/27/2023 8:00 AM EDT Laboratory Laboratory, [address] [address] [facility], Lab [address] [place] [address] 07/27/2023 9:00 AM EDT Office Visit Hematology/Oncology, [address] [address] Mike Chaudhary MD [address] [place] [address] 07/27/2023 10:00 AM EDT Hem/Onc Treatment Hematology/Oncology Treatment, [address] [address] [facility], Chair2 Hem Onc [address] [place] [address] [place] [address] 07/27/2023 10:30 AM EDT Office Visit Palliative Medicine, [address] 5[address] Floor [place] [address] Gabriella Florian CRNP [address] [place] [address] [place] [address] 08/12/2023 2:00 PM EDT Appointment Radiology, [place] [address] [place] [phone] 08/26/2023 1:00 PM EDT Office Visit Sleep Disorders, [address] [address] Dave Daigle PA-C [address] [place] [address] 09/25/2023 2:40 PM EDT Office Visit Rheumatology [place] [address] [facility] [place] [address] Oliver Zhang MD [address] [facility] [place], [place] [address] 02/19/2024 12:00 PM EST Office Visit Family Practice [address], [place] [address] [facility] [address] Kayla Reeder DO [address] [facility] [place] [address] Pending Results Name Type Priority Associated Diagnoses Date /Time COMPREHENSIVE METABOLIC PANEL Lab STAT 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) 07/24/2023 9:17 AM EDT URIC ACID Lab STAT 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) 07/24/2023 9:17 AM EDT LD Lab STAT 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) 07/24/2023 9:17 AM EDT Health Maintenance Due Date Last Done Comments COVID-19 Vaccine (#1) 1993 Influenza Vaccine (FLU shot) (Season Ended) 2023 11/17/2016, 11/17/2016, 11/30/2015, Additional history exists Depression Screening 07/07/2024 07/08/2023, 06/11/19 24 Albumin/Creatinine Ratio Discontinued 08/02/2021 documented as of this encounter Medical Devices Implanted Type Area Desktop Publisher Device Identifier Shelf Expiration Date Model / Serial / Lot Mediport Pwr Mri 8fr [id number] - [id number] Implanted:Qty : 1 on 07/17/2023 by Medhat Angel MD at OR [facility] Right: Chest CR BARD : PERIPHERAL VASCULAR 07/16/2024 [id number] / / [id number] Port Implant W8f Poly Cath - [id number] Implanted:Qty : 1 on 07/17/2023 by Medhat Angel MD at OR [facility] CR BARD : PERIPHERAL VASCULAR [id number] 07/16/2024 [id number] / / [id number] documented as of this encounter Procedures Procedure Name Priority Date/Time Associated Diagnosis Comments DIFFERENTIAL, AUTOMATED STAT 07/24/2023 9:17 AM EDT 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) CBC STAT 07/24/2023 9:17 AM EDT 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) CBC STAT 07/24/2023 9:17 AM EDT 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) documented in this encounter Results * (ABNORMAL) DIFFERENTIAL, AUTOMATED (07/24/2023 9:17 AM EDT) WBC 4.54 4.00 - 10.80 K/uL 07/24/2023 9:22 AM EDT LABORATORY [facility] Neutrophils % 71.6 40.0 - 75.0 % 07/24/2023 9:22 AM EDT LABORATORY [facility] Lymphocytes % 12.1(L) 18.0 - 42.0 % 07/24/2023 9:22 AM EDT LABORATORY [facility] Monocytes % 14.8(H) 1.0 - 11.0 % 07/24/2023 9:22 AM EDT LABORATORY [facility] Eosinophils % 0.0 0.0 - 6.0 % 07/24/2023 9:22 AM EDT LABORATORY [facility] Basophils % 0.4 0.0 - 2.0 % 07/24/2023 9:22 AM EDT LABORATORY [facility] Immature Granulocytes % 1.1 0.0 - 2.0 % 07/24/2023 9:22 AM EDT LABORATORY [facility] Absolute Neutrophils 3.25 1.80 - 7.70 K/uL 07/24/2023 9:22 AM EDT LABORATORY [facility] Absolute Lymphocytes 0.55(L) 1.00 - 4.80 K/ul 07/24/2023 9:22 AM EDT LABORATORY GL Absolute Monocytes 0.67 0.00 - 1.10 K/uL 07/24/2023 9:22 AM EDT LABORATORY GL Absolute Eosinophils 0.00 0.00 - 0.70 K/uL 07/24/2023 9:22 AM EDT LABORATORY [facility] Absolute Basophils 0.02 0.00 - 0.20 K/uL 07/24/2023 9:22 AM EDT LABORATORY [facility] Absolute Immature Granulocytes 0.05 0.00 - 0.20 K/uL 07/24/2023 9:22 AM EDT LABORATORY [facility] Blood Venous blood specimen / Unknown Venipuncture / Unknown 07/24/2023 9:17 AM EDT 07/24/2023 9:17 AM EDT Mike Chaudhary MD LAB BLOOD O [facility] LABORATORY [address] [address] * (ABNORMAL) CBC (07/24/2023 9:17 AM EDT) WBC 4.54 4.00 - 10.80 K/uL 07/24/2023 9:22 AM EDT LABORATORY [facility] RBC 3.74 4.50 - 5.25 M/uL 07/24/2023 9:22 AM EDT LABORATORY [facility] HGB 11.5(L) 14.0 - 16.8 g/dL 07/24/2023 9:22 AM EDT LABORATORY [facility] HCT 32.9(L) 40.0 - 48.4 % 07/24/2023 9:22 AM EDT LABORATORY [facility] MCV 88.0 82.0 - 99.5 fL 07/24/2023 9:22 AM EDT LABORATORY [facility] MCH 30.7 27.0 - 34.0 pg 07/24/2023 9:22 AM EDT LABORATORY [facility] MCHC 35.0 32.0 - 36.0 g/dL 07/24/2023 9:22 AM EDT LABORATORY [facility] RDW 16.4 11.5 - 15.5 % 07/24/2023 9:22 AM EDT LABORATORY [facility] PLT 177 140 - 400 K/uL 07/24/2023 9:22 AM EDT LABORATORY [facility] MPV 9.8 6.6 - 11.1 fL 07/24/2023 9:22 AM EDT LABORATORY GL nRBCs 0 <=0 /100 WBCs 07/24/2023 9:22 AM EDT LABORATORY GL Blood Venous blood specimen / Unknown Venipuncture / Unknown 07/24/2023 9:17 AM EDT 07/24/2023 9:17 AM EDT Mike Chaudhary MD LAB BLOOD O [facility]AT[facility] GL [address] [facility] [place] [address] documented in this encounter Visit Diagnoses Diagnosis [...] Agents on File Name Relationship Healthcare Agent [facility] p Communication Trixie Le [facility] Repr esentative (appointed verbally by patient or by statute hierarchy) [email or web address] Care Teams Kidney Trimmer Relationship Specialty Start Date End Date Kayla Reeder DO [address] [facility] [place] [address] PCP - General Family Medicine 06/11/23 documented as of this encounter
--- OUTSIDE RECORDS SUMMARY | 2023-09-18 21:31 | External Medical Summary | Summary of Care ---
Author Name Unknown Organization [facility] Address [address] [place] [address] Phone [phone] Care Team Providers Care Bridge Ironworker Name Role Phone ReederMelissaie Tricia DO Primary Care Provider [phone]- [phone] Reason for Visit * Reason Comments NEW PATIENT SHADER AND TONER Encounter Details Date Type Department Care Team ([facility] st Contact Info) Description 07/22/2023 9:00 AM EDT Office Visit Palliative Medicine [facility] [address] [place] [address] Aury Silva MD [address] [place] [address] Cancer related pain*; 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); Goals of care, counseling/discussio n; Constipation due to pain medication; Palliative care encounter Allergies No known active allergiesdocumented as of this encounter (statuses as of 07/22/2023) Medications Medication Sig Dispensed Refills Start Date [...] 06/02/2023 Propranolol HCl 40 MG Oral Tablet (Inderal)Indicati ons:Migraine with aura and without status migrainosus, not intractable,HTN, goal below 140/90 TAKE ONE TABLET BY MOUTH TWICE A DAY (IN THE MORNING AND BEFORE BEDTIME) 180 Tablet 3 02/23/2023 Active hydroCHLOROthiazi de 12.5 MG Oral Capsule (Hydrodiuril)Michelle cations:History of petit-mal seizures Take 1 Capsule by mouth in the morning. 90 Capsule 1 03/02/2023 Active Loratadine 10 MG Oral Tablet (Claritin)Indicat ions:Chronic cough Take 1 Tablet by mouth in the morning. 30 Tablet 11 05/01/2023 Active Celecoxib 200 MG Oral Capsule (CeleBREX)Indicat ions:Migraine with aura and without status migrainosus, not intractable Take 1 Capsule by mouth in the morning. Every morning.. 30 Capsule 3 05/01/2023 Active Pantoprazole Sodium 40 MG Oral Tablet Delayed Release (Protonix)Indicat ions:Gastroesopha geal reflux disease with esophagitis without hemorrhage TAKE ONE TABLET BY MOUTH EVERY MORNING 30 MINUTES BEFORE THE FIRST MEAL OF THE DAY. DO NOT CRUSH,SPLIT OR CHEW THE TABLET 30 Tablet 05/22/2023 Active Proventil HFA 108 (90 Base) MCG/ACT Inhalation Aerosol SolutionIndicatio ns:Chronic cough Inhale 2 Puffs by mouth every 4 hours as needed for Wheezing, Shortness of Breath or Cough. 18 g 1 06/09/2023 Active Fluticasone-Salme terol 250-50 MCG/ACT Inhalation Aerosol Powder Breath Activated (Advair Diskus)Indication s:Chronic cough INHALE ONE PUFF BY MOUTH EVERY MORNING AND ONE PUFF BEFORE BEDTIME 60 Each 06/11/2023 Active HYDROmorphone HCl 2 MG Oral Tablet (Dilaudid) Take 1.5 Tablets by mouth every 4 hours as needed for moderate or severe pain 100 Tablet 07/07/2023 Active Sulfamethoxazole- Trimethoprim 400-80 MG Oral Tablet (Bactrim) Take 1 Tablet by mouth in the morning. 30 Tablet 1 07/08/2023 Active Fluconazole 200 MG Oral Tablet (Diflucan) Take 2 Tablets by mouth in the morning. 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 30 Tablet 07/08/2023 Active levoFLOXacin 750 MG Oral Tablet (Levaquin) Take 1 Tablet by mouth in the morning. 30 Tablet 07/15/2023 4 Active Magic Swizzle (Lidocaine-Benadr yl-Maalox) oral solution Swish and spit 15 mL 4 times a day as needed for Sore throat (oral pain). 900 mL 07/14/2023 Active Prochlorperazine Maleate 5 MG Oral Tablet (Compazine)Indica tions:Chemotherap y induced nausea and vomiting Take 1 Tablet by mouth every 8 hours as needed for Nausea. 30 Tablet 07/15/2023 Active Buprenorphine HCl 2 MG Sublingual Tablet Sublingual (Subutex)Indicati ons:Cancer related pain Place 0.5 Tablets under the tongue in the morning and 0.5 Tablets in the evening. 30 Tablet 07/22/2023 4 Active Buprenorphine HCl 2 MG Sublingual Tablet Sublingual (Subutex) Place one-half tablet under the tongue in the morning and one-half tablet in the evening. Do all this for 21 days. 21 Tablet 07/07/2023 4 Discontinue d(Refill) documented as of this encounter (statuses as of 07/22/2023) Active Problems Problem Noted Date Diagnosed Date Immunodeficiency 07/20/2023 Pancytopenia 07/14/2023 Headache 07/13/2023 Chemotherapy-induced [...] as of this encounter (statuses as of 07/22/2023) Resolved Problems Problem Noted Date Diagnosed Date [...] as of this encounter (statuses as of 07/22/2023) Immunizations Name Administration Dates Next Due DT [...] Sign Reading Time Taken Comments Blood Pressure 115/83 07/22/2023 9:20 AM EDT Pulse 84 07/22/2023 9:20 AM EDT Temperature 36.3 C (97.3 F) 07/22/2023 9:20 AM ED T Respiratory Rate - - Oxygen Saturation 99% 07/22/2023 9:20 AM EDT Inhaled Oxygen Concentration - - Weight 113.3 kg (249 lb 12.8 oz) 07/22/2023 9:20 AM EDT Height 180.3 cm (5' 11") 07/22/2023 9:20 AM EDT Body Mass Index 34.84 07/22/2023 9:20 AM EDT documented in this [...] this encounter Patient Instructions * Patient Instructions* Aury Silva MD - 07/22/2023 9:31 AM EDT Our Palliative Medicine Clinic is [...] needed. You can contact our office at [phone], which is our clinic in [place], or you can message us on SinglePlatform. If you have an emergency outside of these hours, we recommend calling your primary care clinic, Oncology office, or going to the ER if you have a medical emergency. Will have Gabriella check in on you on Thursday documented in this encounter Progress Notes * Aury Silva MD - 07/22/2023 9:00 AM EDT Images from the original note were not included. Palliative Medicine Outpatient Consult Note [facility] Palliative Medicine Outreach [address] [place] [address] Name: Farhad Franco Date: 07/22/2023 Referring Provider: Kayla Reeder DO Reason for Consult: Goals of care; Pain and symptom management Patient accompanied by mom and 3-year-old son Avery, history obtained from patient and mom HPI: Farhad Franco is a 32 year old male with a primary diagnosis of recently diagnosed Burkitt's lymphoma, with background of cerebral vasculitis, hx of a stroke at age 7, migraine with aura, nephrolithiasis, petite mal seizures, and others. He was recently diagnosed w/this and was admitted to [facility] for urgent chemotherapy then readmitted again to [facility] for severe headache and neutropenia. Referred to palliative for symptom management and goals of care. Met w/patient and his mom. He is doing OK overall. Had a concerning event 2 days ago where he had taken 1.5 tablets of his 3mg Dilaudid as well as all his other morning medications and he became verylethargic. He was afraid he was overdosing so he used the Narcan nasal spray. Since then his pain has actually been okay. He has not been using the p.r.n. Dilaudid. He has been taking the Subutex twice daily and says that currently his pain is 0/10. Emotionally he is doing okay, he finds it hard when he is in the hospital away from his son Avery. He is open to therapy referral. He feels that right now he would feel better if he could just sleep well, but some of his medications are making him feel very itchy. Full discussion below, but in summary, he is ok with continuing current level of treatment for lymphoma - goal is for this to be cured in 6 months. Palliative symptoms: Pain: 0/10 today Located at: headache, back where mass is Currently taking: Subutex 1mg BID (cuts the 2mg tab) Quality: Deep ache Severity: 0/10 in office but at times is worse Nausea/Vomiting: no Appetite: ok Constipation: Stopped senna, last BM yesterday, using Miralax Confusion: no Sleep issues: yes, above Dyspnea: no Mood issues: flat affect Falls: no Other: Functional Status: - Palliative Performance Scale: 90% - Activities of Daily Living: (bolded items indicate areas of independence) 6/6 BADL (transfer, toilet, continence, bathe, dress self, feed self) / IADL (meds, transport, telephone, shop, housekeeping, meal prep, money management) - Ambulates: unassisted SHx: Family Support: Well supported by Mom who works at their local [employer]. Is not in touch with avery's mom who has substance issues. Has a girlfriend Ashley who lives next door. Has abrother and sister PHYSICAL EXAMINATION: Constitutional: BP 115/83 (BP Site: Left Arm, BP Position: Sitting, BP Cuff Size: Large) | Pulse 84| Temp 36.3 C (97.3 F) (Tympanic) | Ht 1.803 m (5' 11") | Wt 113.3 kg (249 lb 12.8 oz) | SpO2 99% | BMI 34.84 kg/m | BSA 2.38 m , no acute distress HENT: normocephalic, atraumatic. Eyes: anicteric, sclera and conjunctiva normal. Neck: no stridor Chest: normal respiratory effort Abdominal: nondistended Extremities: no edema Neuro: alert, oriented to person, place, and time Psych: normal mood and flat affect Data Review: External notes reviewed: - Reviewed notes from Dr Valdez, Palliative at [facility] on 07/06, he was started on Subutex 1mg SL BID with hydromorphone 3mg q4h PRN moderate/severe pain, was also given narcan. They note his pain is very complex. 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 y Does Patient have a Healthcare Agent? Y, unsure at this time Discussion with Patient & Family: Met with patient and mom Introduced role of Outpatient Palliative Medicine team and reviewed symptoms as above. Reviewed patient's/family's understanding of current medical situation. Their goal is for curative treatment Advanced Care Planning: Deferred ASSESSMENT/PLAN: Farhad Franco is a/an 32 year old male referred for consultation to Palliative Medicine with theprimary diagnosis of: Burkitt's lymphoma of intra-abdominal lymph nodes Chemotherapy induced pancytopenia Cancer related pain Mild hypokalemia Recent hospital stay Hx of cerebral vasculitis with stroke at age 7 Goals of care - continue treatment Recommendations: Plan is to start treatment next week For pain, we will try to get him on the lowest dose of pain medications. Will wean his Subutex to 0.5mg in AM and 1mg in PM and see how he does. If pain returns, can alwaysincrease to 1mg BID again Need to complete KIRK at next visit I have reviewed the patients controlled substance dispensing history in the Prescription Drug Monitoring Program in compliance with the [facility] regulations before prescribing a controlled substance. Offered more Narcan, he has 1 at home and 3 refills so declined For bowels, continue Miralax, may need [employer] Has case mx support (Jasmine Salcido RN) Will add behavioral health support Follow up frequently - in 1 weeks in infusion center. Not sure if he is able to do video visits. Next visit with me / SNEHAL. Thank you for this consult. We appreciate the opportunity to take part in the care of your patient. Note routed back to referring provider Kayla Reeder DO and PCP Kayla Reeder DO Billed as return as patient was seen IP at [facility] I spent a total of 41 minutes on the date of service in preparation, delivery, and documentation ofthe care provided to Farhad Franco excluding any time spent in the performance of separately billed services. Aury Silva MD [facility] Palliative Medicine [phone] documented in this encounter Nursing Notes * Maricarmen Lopez, MED ASSIST - 07/22/2023 9:21 AM EDT Patient identifed by name and birthdate Do you have any concerns about pain management for today's visit? No Living Will or Advance Directive for Health Care as noted on the problem list. [facility] is a way you can talk to your provider on line through e-mail. Would you like to sign up? I can activate it for you? ALREADY ACTIVE Filed Vitals: 07/22/23 0920 BP: 115/83 Pulse: 84 Temp: 36.3 C (97.3 F) TempSrc: Tympanic SpO2: 99% Weight: 113.3 kg (249 lb 12.8 oz) Height: 1.803 m (5' 11") Patient was instructed to not get up [...] Care Team (Late st Contact Info) Description 07/22/2023 2:00 PM EDT Hospital Encounter Radiology, [address] [address] 07/24/2023 9:10 AM EDT Laboratory Laboratory, [address] [address] [facility], Lab [address] [place] [address] 07/24/2023 10:00 AM EDT Office Visit Hematology/Oncology, [address] [address] Lakeshia Stone CRNP [address] [place] [address] 07/27/2023 8:00 AM EDT Laboratory Laboratory, [address] [place] [address] [facility], Lab [address] [place] [address] 07/27/2023 9:00 AM EDT Office Visit Hematology/Oncology, [address] [address] Mike Chaudhary MD [address] [place] [address] 07/27/2023 10:00 AM EDT Hem/Onc Treatment Hematology/Oncology Treatment, [address] [address] Gl, Chair2 Hem Onc [address] [place] [address] 07/27/2023 10:30 AM EDT Office Visit Palliative Medicine, [address] 5th [place] [address] Gabriella Florian CRNP [address] [place] [address] 08/12/2023 2:00 PM EDT Appointment Radiology, [place] [address] [place] [address] 08/26/2023 1:00 PM EDT Office Visit Sleep Disorders, [address] [address] Dave Daigle PA-C [address] [place] [address] 09/25/2023 2:40 PM EDT Office Visit Rheumatology [facility] [address] [facility] [place] [address] Oliver Zhang MD [address] [facility] [place] [address] 02/19/2024 12:00 PM EST Office Visit Family [facility] Maribell Garcia [address] [place] [address] Kayla Reeder, DO [address] [facility] [place] [address] Health Maintenance Due Date Last Done Comments COVID-19 Vaccine (#1) 1993 Influenza Vaccine (FLU shot) (Season Ended) 2023 11/17/2016, 11/17/2016, 11/30/2015, Additional history exists Depression Screening 07/07/2024 07/08/2023, 06/11/19 24 Albumin/Creatinine Ratio Discontinued 08/02/2021 documented as of this encounter Medical Devices Implanted Type Area Belt Fixer Device Identifier Shelf Expiration Date Model / Serial / Lot Mediport Pwr Mri 8fr [id number] - [id number] Implanted:Qty : 1 on 07/17/2023 by Medhat Angel MD at OR [facility] Right: Chest CR BARD : PERIPHERAL VASCULAR 07/16/2024 [id number] / / [id number] Port Implant W8f Poly Cath - [id number] Implanted:Qty : 1 on 07/17/2023 by Medhat Angel MD at OR [facility] CR BARD : PERIPHERAL VASCULAR [id number] 07/16/2024 [id number] / / [id number] documented as of this encounter Visit Diagnoses Diagnosis Cancer related pain- Primary Neoplasm related pain (acute) (chronic) 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) Burkitt's tumor or lymphoma of intra-abdominal lymph nodes Goals of care, counseling/discussion Other specified counseling Constipation due to pain medication Other constipation Palliative care encounter Encounter for palliative care [...] Agents on File Name Relationship Healthcare Agent [facility] p Communication [facility]rixie [facility] Repr esentative (appointed verbally by patient or by statute hierarchy) [email or web address] Care Teams Bridge Ironworker Relationship Specialty Start Date End Date Kayla Reeder DO [address] [facility] [place] [address] PCP - General Family Medicine 06/11/23 documented as of this encounter
--- OUTSIDE RECORDS SUMMARY | 2023-09-18 21:31 | External Medical Summary | Summary of Care ---
Author Name Unknown Organization [facility] Address [address] [place] [address] Phone [phone] Care Team Providers Care Laminating Machine Offbearer Name Role Phone VarinderMelissarosio Clarke DO Primary Care Provider [phone]- [phone] Encounter Details Date Type Department Care Team (Late st Contact Info) Description 07/22/2023 Orders Only Hematology Oncology [facility] [address] [place] [address] Mike Chaudhary MD [address] [place] [address] Burkitt lymphoma of intra-abdominal lymph [...] Description 07/24/2023 9:10 AM EDT Laboratory Laboratory, [address] [place] [phone] [facility], Lab [address] [place] [address] 07/24/2023 10:00 AM EDT Office Visit Hematology/Oncology, [address] [address] Lakeshia Stone CRNP [address] [place] [address] 07/27/2023 8:00 AM EDT Laboratory Laboratory, [address] [phone] [facility], Lab [address] [place] [address] 07/27/2023 9:00 AM EDT Office Visit Hematology/Oncology, [address] [address] Mike Chaudhary MD [address] [place] [address] 07/27/2023 10:00 AM EDT Hem/Onc Treatment Hematology/Oncology Treatment, [address] [address] [facility], Chair2 Hem Onc [address] [place] [address] 07/27/2023 10:30 AM EDT Office Visit Palliative Medicine, [address] Floor [place] [address] Gabriella Florian CRNP [address] [place] [address] 08/12/2023 2:00 PM EDT Appointment Radiology, [place] [address] [place] [address] 08/26/2023 1:00 PM EDT Office Visit Sleep Disorders, [facility] [address] [facility] [place] [address] Dave Daigle PA-C [address] [facility] [place] [address] 09/25/2023 2:40 PM EDT Office Visit Rheumatology [place] [phone] C$ [employer] [place] [address] Oliver Zhang MD [address] [facility] [place] [address] 02/19/2024 12:00 PM EST Office Visit Family Practice [address], [place] [address] [place] [phone] Kayla Reeder DO [address] [place] [address] Health Maintenance Due Date Last Done Comments COVID-19 Vaccine (#1) 1993 Influenza Vaccine (FLU shot) (Season Ended) 2023 11/17/2016, 11/17/2016, 11/30/2015, Additional history exists Depression Screening 07/07/2024 07/08/2023, 06/11/19 24 Albumin/Creatinine Ratio Discontinued 08/02/2021 documented as of this encounter Medical Devices Implanted Type Area Fur Designer Device Identifier Shelf Expiration Date Model / Serial / Lot Mediport Pwr Mri 8fr [id number] - [id number] Implanted:Qty : 1 on 07/17/2023 by Medhat Angel MD at OR [facility] Right: Chest CR BARD : PERIPHERAL VASCULAR 07/16/2024 [id number] / / [id number] Port Implant W8f Poly Cath - [id number] Implanted:Qty : 1 on 07/17/2023 by Medhat Angel MD at OR [facility] CR BARD : PERIPHERAL VASCULAR [id number] 07/16/2024 [id number] / / [id number] documented as of this encounter Visit Diagnoses [...] Agents on File Name Relationship Healthcare Agent [facility] Communication Trixie Le [facility] Repr esentative (appointed verbally by patient or by statute hierarchy) [email or web address] Care Teams Laminating Machine Offbearer Relationship Specialty Start Date End Date Kayla Reeder DO [address] [facility] [place] [address] PCP - General Family Medicine 06/11/23 documented as of this encounter
--- OUTSIDE RECORDS SUMMARY | 2023-09-18 21:31 | External Medical Summary ---
Author Name Unknown Address Unknown Organization K1F:LABORATORY [facility] - [address] [place] [address] Laboratory Report Ordering Provider Test Date Status JENNMATTI 07/24/2023 09:17:33 Final Observation Date Value Abnormality Reference (Units ) Status Uric Acid 07/24/2023 09:17:33 6.9 3.4-7.0 (m g/dL) Final Performing Location LABORATORY [facility] - [address] [address]
--- OUTSIDE RECORDS SUMMARY | 2023-09-18 21:31 | External Medical Summary ---
Author Name Unknown Address Unknown Organization K01:LABORATORY [facility] - [address] [facility] [address] Laboratory Report Ordering Provider Test Date Status MATTI BARAJAS 07/22/2023 14:45:00 Final Some reference ranges and ot her method performance specifications have not been established for this fluid. The test results must be integrated into the clinical context for interpretation. Observation Date Value Abnormality Reference (Units ) Status SYNC TOTAL NUCLEATED CELLS, CSF 07/22/2023 14:45:00 2000 (cells/uL) Final Neutrophils/100 leukocytes in Cerebral spinal fluid 07/22/2023 14:45:00 16 Above high normal 0-6 (%) Final Lymphocytes/100 leukocytes in Cerebral spinal fluid 07/22/2023 14:45:00 58 40-80 (%) Final Monocytes/100 leukocytes in Cerebral spinal fluid 07/22/2023 14:45:00 26 15-45 (%) Final Neutrophils [#/volume] in Cerebral spinal fluid 07/22/2023 14:45:00 320.00 (cells/uL) Final Lymphocytes [#/volume] in Cerebral spinal fluid 07/22/2023 14:45:00 1160.00 (cells/uL) Final Monocytes [#/volume] in Cerebral spinal fluid 07/22/2023 14:45:00 520.00 (cells/uL) Final Performing Location LABORATORY [facility] - [address] [facility] [address]
--- OUTSIDE RECORDS SUMMARY | 2023-09-18 21:31 | External Medical Summary ---
Author Name Unknown Address Unknown Organization K1F:LABORATORY [facility] - [address] [address] Laboratory Report Ordering Provider Test Date Status MATTI BARAJAS 07/24/2023 09:17:33 Final Observation Date Value Abnormality Reference (Units ) Status LDH 07/24/2023 09:17:33 224 <=250 (U/L ) Final Performing Location LABORATORY [facility] - [address] [address]
--- OUTSIDE RECORDS SUMMARY | 2023-09-18 21:31 | External Medical Summary | Summary of Care ---
Author Name Unknown Organization [facility] Address [address] [place] [address] Phone [phone] Care Team Providers Care Mailhouse Operator Name Role Phone Kayla Reeder DO Primary Care Provider +1- [phone] Encounter Details Date Type Department Care Team (Late st Contact Info) Description 07/23/2023 Orders Only Hematology/Oncology Treatment, [facility] [address] [place] [address] Mike Chaudhary MD [address] [place] [address] Burkitt lymphoma of intra-abdominal lymph [...] Description 07/24/2023 9:10 AM EDT Laboratory Laboratory, [address] [place] [address] [facility], Lab [address] [place] [address] 07/24/2023 10:00 AM EDT Office Visit Hematology/Oncology, [address] [address] Lakeshia Stone CRNP [address] [place] [address] 07/27/2023 8:00 AM EDT Laboratory Laboratory, [address] [phone] [facility], Lab [address] [place] [place] [address] 07/27/2023 9:00 AM EDT Office Visit Hematology/Oncology, [address] [address] Mike Chaudhary MD [address] [place] [address] 07/27/2023 10:00 AM EDT Hem/Onc Treatment Hematology/Oncology Treatment, [address] [address] [facility], Chair2 Hem Onc [address] [place] [place] [address] 07/27/2023 10:30 AM EDT Office Visit Palliative Medicine, [address] [place] [address] Gabriella Florian CRNP [address] [place] [place] [address] 08/12/2023 2:00 PM EDT Appointment Radiology, [address] [place] [address] 08/26/2023 1:00 PM EDT Office Visit Sleep Disorders, [facility] [address] [facility] [place] [address] Dave Daigle PA-C [address] [facility] [place] [id number] 09/25/2023 2:40 PM EDT Office Visit Rheumatology [place] [phone] [facility] [place], [place] [address] Oliver Zhang MD [address] [place] [address] 02/19/2024 12:00 PM EST [facility] [place] [facility] [facility] [place] [address] Kayla Reeder DO [address] [facility] [place] [address] Scheduled Orders Name Type Priority Associated Diagnoses Orde r Schedule URIC ACID Lab STAT 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) Every 3 Weeks for 12 Occurrences starting 07/23/2023 until 07/22/2024 LD Lab STAT 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) Every 3 Weeks for 12 Occurrences starting 07/23/2023 until 07/22/2024 URINALYSIS, REFLEX TO MICROSCOPIC Lab STAT 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) Every 3 Weeks for 12 Occurrences starting 07/23/2023 until 07/22/2024 Health Maintenance Due Date Last Done Comments COVID-19 Vaccine (#1) 1993 Influenza Vaccine (FLU shot) (Season Ended) 2023 11/17/2016, 11/17/2016, 11/30/2015, Additional history exists Depression Screening 07/07/2024 07/08/2023, 06/11/19 24 Albumin/Creatinine Ratio Discontinued 08/02/2021 documented as of this encounter Medical Devices Implanted Type Area Drug Safety Data Management Specialist Device Identifier Shelf Expiration Date Model / Serial / Lot Mediport Pwr Mri 8fr [id number] - [id number] Implanted:Qty : 1 on 07/17/2023 by Medhat Angel MD at OR [facility] Right: Chest CR BARD : PERIPHERAL VASCULAR 07/16/2024 [id number] / / [id number] Port Implant W8f Poly Cath - [id number] Implanted:Qty : 1 on 07/17/2023 by Medhat Angel MD at OR [facility] CR BARD : PERIPHERAL VASCULAR [id number] 07/16/2024 [id number] / / [id number] documented as of this encounter Visit Diagnoses [...] Agents on File Name Relationship Healthcare Agent [facility] p Communication Trixie Le [facility] Repr esentative (appointed verbally by patient or by statute hierarchy) [email or web address] Care Teams Mailhouse Operator Relationship Specialty Start Date End Date Kayla Reeder DO [address] [facility] [place] [address] PCP - General Family Medicine 06/11/23 documented as of this encounter
--- OUTSIDE RECORDS SUMMARY | 2023-09-18 21:31 | External Medical Summary | Summary of Care ---
Author Name Unknown Organization [facility] Address [address] [place] [address] Phone [phone] Care Team Providers Care Aircraft Body Repairer Name Role Phone VarinderBryanKayla Tricia DO Primary Care Provider +1- [phone] Reason for Visit * Reason Onset Date Comments Medication Question 07/23/2023 Encounter Details Date Type Department Care Team ([facility] st Contact Info) Description 07/23/2023 Telephone Hematology/Oncology Treatment, [facility] [address] [place] [address] Mike Chaudhary MD [address] [place] [address] Medication Question Allergies No known active allergiesdocumented [...] Telephone Encounter - Shannon Kendall RN - 07/23/2023 3:37 PM EDT Lakeshia - this patient is seeing you tomorrow for pump clearance. If I do not hear from him before then can you please see the myG and confirm with the patient what medications he already has at home to ensure I can get him what is needed before his treatment start date 07/26. Thank you! documented in this encounter Plan of Treatment Upcoming Encounters Date Type Department Care Team (Late st Contact Info) Description 07/24/2023 9:10 AM EDT Laboratory Laboratory, [address] [phone] [facility], Lab [address] [place] [address] 07/24/2023 10:00 AM EDT Office Visit Hematology/Oncology, [address] [address] Lakeshia Stone CRNP [address] [place] [address] 07/27/2023 8:00 AM EDT Laboratory Laboratory, [address] [phone] [facility], Lab [address] [place] [address] 07/27/2023 9:00 AM EDT Office Visit Hematology/Oncology, [address] [address] Mike Chaudhary MD [address] [place] [address] 07/27/2023 10:00 AM EDT Hem/Onc Treatment Hematology/Oncology Treatment, [address] [address] [facility], Chair2 Hem Onc [address] [place], [place] [address] [place] [address] 07/27/2023 10:30 AM EDT Office Visit Palliative Medicine, [facility] 400 [facility] 5th [place] [address] Gabriella Florian, PURCHASING SUPERVISOR [address] [place] [address] 08/12/2023 2:00 PM EDT Appointment Radiology, [address] [address] 08/26/2023 1:00 PM EDT Office Visit Sleep Disorders, [facility] 400 [place] [address] Dave Daigle PA-C [address] [place] [address] 09/25/2023 2:40 PM EDT Office Visit Rheumatology [address] [place] [address] Oliver Zhang MD [address] [place] [address] [place] [address] 02/19/2024 12:00 PM EST Office Visit Family Practice [address], [place] [address] [place] [address] Kayla Reeder DO [address] [place] [address] Health Maintenance Due Date Last Done Comments COVID-19 Vaccine (#1) 1993 Influenza Vaccine (FLU shot) (Season Ended) 2023 11/17/2016, 11/17/2016, 11/30/2015, Additional history exists Depression Screening 07/07/2024 07/08/2023, 06/11/19 24 Albumin/Creatinine Ratio Discontinued 08/02/2021 documented as of this encounter Medical Devices Implanted Type Area Manager Customer Service Device Identifier Shelf Expiration Date Model / Serial / Lot Mediport Pwr Mri 8fr [id number] - [id number] Implanted:Qty : 1 on 07/17/2023 by Medhat Angel MD at OR [facility] Right: Chest CR BARD : PERIPHERAL VASCULAR 07/16/2024 [id number] / / [id number] Port Implant W8f Poly Cath - [id number] Implanted:Qty : 1 on 07/17/2023 by Medhat Angel MD at OR [facility] CR BARD : PERIPHERAL VASCULAR [id number] 07/16/2024 [id number] / / [id number] documented as of this encounter Advance Directives [...] Agents on File Name Relationship Healthcare [facility] Communication Trixie Le [facility] Repr esentative (appointed verbally by patient or by statute hierarchy) [email or web address] Care Teams Aircraft Body Repairer Relationship Specialty Start Date End Date Kayla Reeder DO [address] [facility] [place] [address] PCP - General Family Medicine 06/11/23 documented as of this encounter
--- OUTSIDE RECORDS SUMMARY | 2023-09-18 21:31 | External Medical Summary ---
Author Name Unknown Address Unknown Organization K1F[facility] [address] [place] [address] Laboratory Report Ordering Provider Test Date Status CHANTEL JORDAN 07/24/2023 09:17:33 Final Observation Date Value Abnormality Reference (Units ) Status Magnesium 07/24/2023 09:17:33 2.2 1.5-2.6 (m g/dL) Final Performing Location [facility] [address] [place] [address]
--- OUTSIDE RECORDS SUMMARY | 2023-09-18 21:31 | External Medical Summary | Summary of Care ---
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 Do all this for 21 days. 21 Tablet 07/07/2023 07/28/2023 Active HYDROmorphone HCl 2 MG Oral Tablet [...] needed for Nausea. 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 08/14/2009 03/07/2016 Attention deficit hyperactiv ity disorder (ADHD) 08/14/2009 12/18/2014 OSTEOARTHRITIS 08/14/2009 03/07/2016 documented as of this encounter (statuses as of 07/21/2023) Immunizations Name Administration Dates Next Due DT [...] encounter Miscellaneous Notes * Addendum Note - Hang Harkins RN - 07/21/2023 11:07 AM EDTAddended by: HANG HARKINS on: 07/21/2023 11:07 AM Modules accepted: Orders documented in this encounter Plan of Treatment Upcoming Encounters Date Type Department Care Team (Late st Contact Info) Description 07/22/2023 9:00 AM EDT Office Visit Palliative Medicine [facility] [address] [place] [address] Aury Silva MD [address] [place] [address] 07/22/2023 2:00 PM EDT Hospital Encounter Radiology, [address] [phone] 07/24/2023 9:10 AM EDT Laboratory Laboratory, [address] [phone] [facility], Lab [address] [place] [address] 07/24/2023 10:00 AM EDT Office Visit Hematology/Oncology, [address] [address] Lakeshia Stone CRNP [address] [place] [address] 07/27/2023 8:00 AM EDT Laboratory Laboratory, [address] [phone] [facility], Lab [address] [place] [address] 07/27/2023 9:00 AM EDT Office Visit Hematology/Oncology, [address] [address] Mike Chaudhary MD [address] [place] [address] 07/27/2023 10:00 AM EDT Hem/Onc Treatment Hematology/Oncology Treatment, [address] [address] [facility], Chair2 Hem Onc [address] [place] [address] 08/12/2023 2:00 PM EDT Appointment Radiology, [address] [address] 08/26/2023 1:00 PM EDT Office Visit Sleep Disorders, [address] [address] Dave Daigle PA-C [address] [place] [address] 09/25/2023 2:40 PM EDT Office Visit Rheumatology [address] [place] [address] Oliver Zhang MD [address] [place] [address], [place] [address] 02/19/2024 12:00 PM EST [facility] [address] [facility] [place] [address] Kayla Reeder DO [address] [facility] [place] [address] Scheduled Orders Name Type Priority Associated Diagnoses Orde r Schedule CYTOLOGY Pathology Routine 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) Expected: 07/22/2023, Expires: 08/18/2024 FLOW CYTOMETRY, LEUKEMIA LYMPHOMA PANEL Lab STAT 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) Expected: 07/23/2023, Expires: 07/19/2024 CBC WITH WBC DIFFERENTIAL Lab STAT 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) Expected: 07/24/2023 (Approximate), Expires: 07/20/2024 COMPREHENSIVE METABOLIC PANEL Lab STAT 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) Expected: 07/24/2023 (Approximate), Expires: 07/20/2024 URIC ACID Lab STAT 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) Expected: 07/24/2023 (Approximate), Expires: 07/20/2024 LD Lab STAT 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) Expected: 07/24/2023 (Approximate), Expires: 07/20/2024 CBC WITH WBC DIFFERENTIAL Lab STAT 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) Every Mon, Thurs for 12 Occurrences starting 07/21/2023 until 07/20/2024 COMPREHENSIVE METABOLIC PANEL Lab STAT 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) Every Mon, Thurs for 12 Occurrences starting 07/21/2023 until 07/20/2024 Health Maintenance Due Date Last Done Comments COVID-19 Vaccine (#1) 1993 Influenza Vaccine (FLU shot) (Season Ended) 2023 11/17/2016, 11/17/2016, 11/30/2015, Additional history exists Depression Screening 07/07/2024 07/08/2023, 06/11/19 24 Albumin/Creatinine Ratio Discontinued 08/02/2021 documented as of this encounter Medical Devices Implanted Type Area Traveling Passenger Agent Device Identifier Shelf Expiration Date Model / Serial / Lot Mediport Pwr Mri 8fr [id number] - [id number] Implanted:Qty : 1 on 07/17/2023 by Medhat Angel MD at OR [facility] Right: Chest CR BARD : PERIPHERAL VASCULAR 07/16/2024 [id number] / / [id number] Port Implant W8f Poly Cath - [id number] Implanted:Qty : 1 on 07/17/2023 by Medhat Angel MD at OR [facility] CR BARD : PERIPHERAL VASCULAR [id number] 07/16/2024 [id number] / / [id number] documented as of this encounter Visit Diagnoses [...] Agents on File Name Relationship Healthcare Agent [facility] Communication Trixie Le [facility] Repr esentative (appointed verbally by patient or by statute hierarchy) [email or web address] Care Teams Transcript Clerk Relationship Specialty Start Date End Date Kayla Reeder DO [address] [facility] [place] [address] PCP - General Family Medicine 06/11/23 documented as of this encounter
--- OUTSIDE RECORDS SUMMARY | 2023-09-18 21:31 | External Medical Summary ---
Author Name Unknown Address Unknown Organization K1F:[facility] - [address] [facility]. [place] [address] Laboratory Report Ordering Provider Test Date Status MATTI BARAJAS 07/24/2023 09:17:33 Final Observation Date Value Abnormality Reference (Units ) Status SYNC LEUKOCYTES IN BLOOD BY AUTOMATED COUNT 07/24/2023 09:17:33 4.54 4.00-10.80 (K/uL) Final Segs 07/24/2023 09:17:33 71.6 40.0-75.0 (%) Final Lymphs % 07/24/2023 09:17:33 12.1 Below low normal 18.0-42.0 (%) Final Monos 07/24/2023 09:17:33 14.8 Above high normal 1.0-11.0 (%) Final Eosinophils 07/24/2023 09:17:33 0.0 0.0-6.0 (%) Final Basos 07/24/2023 09:17:33 0.4 0.0-2.0 (%) Final Immature Granulocyte, Percent 07/24/2023 09:17:33 1.1 0.0-2.0 (%) Final Absolute Segs 07/24/2023 09:17:33 3.25 1.80-7.70 (K/uL) Final Lymphs, absolute 07/24/2023 09:17:33 0.55 Below low normal 1.00-4.80 (K/ul) Final Monos, Abs 07/24/2023 09:17:33 0.67 0.00-1.10 (K/uL) Final Eos, Abs 07/24/2023 09:17:33 0.00 0.00-0.70 (K/uL) Final Basos, Abs 07/24/2023 09:17:33 0.02 0.00-0.20 (K/uL) Final Immature Granulocytes, Number 07/24/2023 09:17:33 0.05 0.00-0.20 (K/uL) Final Performing Location [facility] [address] [facility] [place] [address]
--- OUTSIDE RECORDS SUMMARY | 2023-09-18 21:31 | External Medical Summary | Summary of Care ---
Author Name Unknown Organization [facility] Address [address] [place] [address] Phone [phone] Care Team Providers Care Supervisor Records Change Name Role Phone Kayla Reeder DO Primary Care Provider [phone]- [phone] Encounter Details Date Type Department Care Team (Latest Contact Info) Description 07/22/2023 1:20 PM EDT - 07/22/2023 11:59 PM EDT Hospital Encounter Radiology, [place] [address] [place] [address] Arrived Discharge Disposition: Home - [...] combined type 12/18/2014 03/07/2016 RIGHT OTITIS EXTERNA 08/14/200912/07/2 013 CEREBRAL VASCULITIS AGE 6 08/14/2009 PETITE [...] Sign Reading Time Taken Comments Blood Pressure 107/60 07/22/2023 4:00 PM EDT Pulse 64 07/22/2023 4:00 PM EDT Temperature 37 C (98.6 F) 07/22/2023 4:00 PM EDT Respiratory Rate 16 07/22/2023 4:00 PM EDT Oxygen Saturation 98% 07/22/2023 4:00 PM EDT Inhaled Oxygen Concentration - - [...] as of this encounter Nursing Notes * Laurel Gill RN - 07/22/2023 2:00 PM EDT DISCHARGE - POST INTERVENTIONAL RADIOLOGY PROCEDURE Patient meets discharge criteria for Interventional Radiology. Vital signs stable. Dressing clean, dry, and intact. Patient awake and oriented to pre procedure baseline. Discharge instructions given,no questions at this time. Patient tolerating liquids, with no nausea/vomiting. All belongings sentwith patient. Discharged to home. Vital Signs: BP: 107/60 (07/22/231599) Temp: 37 C (98.6 F) (07/22/231599) Pulse: 64 (07/22/231599) Resp: 16 (07/22/231599) SpO2: 98 % (07/22/231599) Neurological: Radha Coma Scale Eyes Open: Spontaneous (07/22/231599) Best Verbal Response: Verbally appropriate for age (07/22/231599) Best Motor Response: Obeys commands appropriate for age (07/22/231599) Coma Score: 15 (07/22/231599) Respiratory: Pain Assessment Flowsheet Row Most Recent Value Pain Assessment Scale [facility] Adult Scale 0-10 Pain Score 0 (no pain) documented in this encounter Miscellaneous Notes * Ancillary Progress Note - Cielo Reno TECH - 07/22/2023 2:00 PM EDT PROGRESS NOTE - Radiology Service [facility]-[address] [address] Name: Farhad Franco Location: Room/bed info not found Date: 07/22/2023 Time: 3:07 PM CSF carried to lab by Matthew and handed to Faith at 2:58pm documented in this encounter Plan of Treatment Upcoming Encounters Date Type Department Care Team (Late st Contact Info) Description 07/24/2023 9:10 AM EDT [address], [address] [phone] [facility], Lab [address] [place] [address] 07/24/2023 10:00 AM EDT Office Visit Hematology/Oncology, [address] [address] Lakeshia Stone CRNP [address] [place] [address] 07/27/2023 8:00 AM EDT Laboratory Laboratory, [address] [phone] [facility], Lab [address] [place] [address] 07/27/2023 9:00 AM EDT Office Visit Hematology/Oncology, [address] [address] Mike Chaudhary MD [address] [place] [address] 07/27/2023 10:00 AM EDT Hem/Onc Treatment Hematology/Oncology Treatment, [address] [address] [facility], Chair2 Hem Onc [address] [place] [address] 07/27/2023 10:30 AM EDT Office Visit Palliative Medicine, [address] [address] Gabriella Florian CRNP [address] [place] [address] 08/12/2023 2:00 PM EDT Appointment Radiology, [place] [address] [place] [facility] [place] [address] 08/26/2023 1:00 PM EDT Office Visit Sleep Disorders, [facility] [address] [facility] [place] [address] Dave Daigle PA-C [address] [place], [place] [phone] 09/25/2023 2:40 PM EDT Office Visit Rheumatology [place] [address] [address] [place], [place] [address] Oliver Zhang MD [facility] [employer] [facility] [place], [place] [address] 02/19/2024 12:00 PM EST Office Visit Family Practice [facility] [address] [place] [address] Kayla Reeder DO [address] [place] [address] Health Maintenance Due Date Last Done Comments COVID-19 Vaccine (#1) 1993 Influenza Vaccine (FLU shot) (Season Ended) 2023 11/17/2016, 11/17/2016, 11/30/2015, Additional history exists Depression Screening 07/07/2024 07/08/2023, 06/11/19 24 Albumin/Creatinine Ratio Discontinued 08/02/2021 documented as of this encounter Medical Devices Implanted Type Area Information Coder Device Identifier Shelf Expiration Date Model / Serial / Lot Mediport Pwr Mri 8fr [id number] - [id number] Implanted:Qty : 1 on 07/17/2023 by Medhat Angel MD at OR [facility] Right: Chest CR BARD : PERIPHERAL VASCULAR 07/16/2024 [id number] / / [id number] Port Implant W8f Poly Cath - [id number] Implanted:Qty : 1 on 07/17/2023 by Medhat Angel MD at OR [facility] CR BARD : PERIPHERAL VASCULAR [id number] 07/16/2024 [id number] / / [id number] documented as of this encounter Procedures Procedure Name Priority Date/Time Associated Diagnosis Comments FLUORO GUIDED CHEMO ADMIN INTO INKER Routine 07/22/2023 3:04 PM EDT 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) FLOW CYTOMETRY, LEUKEMIA LYMPHOMA PANEL STAT 07/22/2023 2:45 PM EDT 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) MANUAL DIFFERENTIAL, CSF STAT 07/22/2023 2:45 PM EDT CELL COUNT WITH DIFFERENTIAL, CSF STAT 07/22/2023 2:45 PM EDT CELL COUNT, CSF STAT 07/22/2023 2:45 PM EDT CYTOLOGY Routine 07/22/2023 2:45 PM EDT 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) documented in this encounter Results * (ABNORMAL) MANUAL DIFFERENTIAL, CSF (07/22/2023 2:45 PM EDT) Total Nucleated Cell Count, CSF 2,000 cells/uL 07/22/2023 5:15 PM EDT [facility] Neutrophils % 16(H) 0 - 6 % 07/22/2023 5:15 PM EDT [facility] Lymphocytes % 58 40 - 80 % 07/22/2023 5:15 PM EDT [facility] Monocytes % 26 15 - 45 % 07/22/2023 5:15 PM EDT [facility] Absolute Neutrophils 320.00 cells/uL 07/22/2023 5:15 PM EDT [facility] Absolute Lymphocytes 1,160.00 cells/uL 07/22/2023 5:15 PM EDT [facility] Absolute Monocytes 520.00 cells/uL 07/22/2023 5:15 PM EDT [facility] Cerebrospinal Fluid Cerebrospinal fluid specimen / Unknown Non-blood Collection / Unknown 07/22/2023 2:45 PM EDT 07/22/2023 3:17 PM EDT Narrative [facility] - 07/22/2023 5:15 PM EDT Some reference ranges and other method performance specifications have not been established for this fluid. The test results must be integrated into the clinical context for interpretation. Mike Chaudhary MD LAB FLUID A ND STOOL ORDERABLES Performing Organization Address [facility] de Phone Number [facility] [address] [place] [address] * CELL COUNT, CSF (07/22/2023 2:45 PM EDT) Color, CSF Colorless Colorless 07/22/2023 5:15 PM EDT [facility] Clarity, CSF Clear Clear 07/22/2023 5:15 PM EDT [facility] Color, Supernatant CSF Colorless Colorless 07/22/2023 5:15 PM EDT [facility] Tube Number, CSF 3 07/22/2023 5:15 PM EDT [facility] Total Nucleated Cell Count, CSF 2 <5 cells/uL 07/22/2023 5:15 PM EDT [facility] RBC, CSF 2 <5 cells/uL 07/22/2023 5:15 PM EDT [facility] Cerebrospinal Fluid Cerebrospinal fluid specimen / Unknown Non-blood Collection / Unknown 07/22/2023 2:45 PM EDT 07/22/2023 3:17 PM EDT [facility] - 07/22/2023 5:15 PM EDT Some reference ranges and other method performance specifications have not been established for this fluid. The test results must be integrated into the clinical context for interpretation. Mike Chaudhary MD LAB FLUID A ND STOOL ORDERABLES Performing Organization Address [facility] de Phone Number [facility] [address] [place] [address] * FLOW CYTOMETRY, LEUKEMIA LYMPHOMA PANEL (07/22/2023 2:45 PM EDT) Indication for Flow Testing H/O treated lymphoma, suspected of lymphoma 07/23/2023 10:41 AM EDT [facility] Viability (%) Specimen A: 0 % 07/23/2023 10:41 AM EDT [facility] Cell Count Specimen A: NA Cells/u L in mL of Fluid 07/23/2023 10:41 AM EDT LABORATORY C Gross Description A. CSF. Specimen: A, Source: CSF See INSUFFICIENT CELLS FOR FLOW CYTOMETRY 07/23/2023 10:41 AM EDT LABORATORY C Flow Interpretation Fluid: Scant cells, insufficient for flow cytometric evaluation. Comment: Correlation with clinical information and cytology findings is recommended. 07/23/2023 10:41 AM EDT [facility] Markers Performed There are no tasks to display for the given criteria. 07/23/2023 10:41 AM EDT LABORATORY C Performing Labs 10:41 AM EDT [facility] Comment:Performed at [facility] ([facility]), [facility] [place] [place] [address]. Flow Disclaimer Photographic images and diagrams represent garcia findings in this case; they are not intended to replace a complete review of the final diagnostic report. The following statement applies to Flow Cytometry, Histology, In situ Hybridization Assays and Molecular Genetics. This test was developed and performed at [facility] and its performance characteristics determined by [facility]. It has not been cleared or approved [...] with appropriate positive and negative control reactions. 07/23/2023 10:41 AM EDT LABORATORY [facility] Cerebrospinal Fluid Cerebrospinal fluid specimen / Unknown Non-blood Collection / Unknown 07/22/2023 2:45 PM EDT 07/22/2023 3:10 PM EDT Comment:Burkitt's lymphoma Mike Chaudhary MD LAB PATHOLO GY ORDERABLES LABORATORY [place] [address] [place] [address] * CYTOLOGY (07/22/2023 2:45 PM EDT) Final Diagnosis A. CSF, Cytology: Adequacy: Satisfactory for evaluation. Category: Atypical. Interpretation: Atypical lymphocytes, see comment. Other: Special studies: Flow cytometry was not performed due to low cellularity of the specimen. 07/23/2023 11:06 AM EDT LABORATORY [facility] Cytology Diagnostic Comment Rare atypical lymphocytes are present. No sufficient cells available for flow cytometry. Recommend clinical correlation and follow-up. 07/23/2023 11:06 AM EDT LABORATORY [facility] Prior Cancer Lymphoma 07/23/2023 11:06 AM EDT LABORATORY [facility] Indication for Procedure Burkitt lymphoma 07/23/2023 11:06 AM EDT LABORATORY [facility] Gross Description A. CSF. Received fresh labeled with name: Farhad Franco and csf and verified with the patient's name and date of . Received 2 mls of clear colored fluid. The specimen is prepared for cytospin(s) at [facility]. /MB Prepared by: XIMENA 07/23/2023 11:06 AM EDT LABORATORY [facility] Performing Labs Examination Proctor screening performed at [facility]), [address] [place] [id number]. Pathologist sign out performed at [facility]), [facility] [place] [place] [address]. 07/23/2023 11:06 AM EDT LABORATORY [facility] Photographic images and diagrams represent garcia findings in this case; they are not intended to replace a complete review of the final diagnostic report. The following statement applies to Flow Cytometry, Histology, In situ Hybridization Assays and Molecular Genetics. This test was developed and performed at [facility] and its performance characteristics determined by [facility]. It has not been cleared or approved [...] with appropriate positive and negative control reactions. 07/23/2023 11:06 AM EDT LABORATORY [facility] Cerebrospinal Fluid Cerebrospinal fluid specimen / Unknown Non-blood Collection / Unknown 07/22/2023 2:45 PM EDT 07/22/2023 3:10 PM EDT Mike Chaudhary MD LAB CYTOLOG Y ORDERABLES LABORATORY [facility] [address] [facility] [place] [address] documented in this encounter Visit Diagnoses Diagnosis [...] Protect from Light!, ONCE, 1 dose, On Thu07/22/23 at 1511 Given 07/22/2023 2:06 PM EDT 12 mg documented in this [...] [facility] p Communication Trixie [facility] Repr esentative (appointed verbally by patient or by statute hierarchy) [email or web address] Education Care Teams Supervisor Records Change Relationship Specialty Start Date End Date Kayla Reeder DO [address] [facility] [place] [address] PCP - General Family Medicine 06/11/23 documented as of this encounter
--- OUTSIDE RECORDS SUMMARY | 2023-09-18 21:32 | External Medical Summary | Summary of Care ---
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, unspecified B-cell lymphoma type (HCC) [C85.13] Procedures INSER TUNN ACC DEV;5 YRS/OLDER INSERT TUNNELED CENTRAL VENOUS ACCESS WITH SUBQ PORT Medhat Angel MD [address] [place] [address] Or [facility] [address] [place] [address] Referral ID Status Reason Start Date Expiration Date Visits Re quested Visits Authorized [id number] [phone] Encounter Details Date Type Department Care Team (Latest Contact Info) Description 07/17/2023 11:58 AM EDT - 07/17/2023 2:22 PM EDT Hospital Encounter OR [facility], Operating Room, [facility] - 4th Floor [address] [place] [address] Medhat Angel MD [address] [place] [address] Discharge Disposition: Home - Self Care Allergies No known active allergiesdocumented as of this encounter (statuses as of 07/18/2023) Medications Medication Sig Dispensed Refills Start Date [...] or Cough. 18 g 1 06/09/2023 Active Additional Information Patient not taking.Reported on 07/17/2023 Fluticasone-Salmet alex 250-50 MCG/ACT Inhalation Aerosol Powder Breath Activated (Advair Diskus)Indications :Chronic cough INHALE ONE PUFF BY MOUTH EVERY MORNING AND ONE PUFF BEFORE BEDTIME 60 Each 5 06/11/2023 Active Buprenorphine HCl 2 MG Sublingual [...] the morning. 60 Tablet 1 07/08/2023 Active Acyclovir 400 MG Oral Tablet (Zovirax) Take 1 Tablet by mouth in the morning and 1 Tablet before bedtime. 60 Tablet 2 07/07/2023 Active Additional Information Patient not taking.Reported on 07/17/2023 Sennosides-Docusat e Sodium 8.6-50 MG Oral Tablet [...] needed for Nausea. 30 Tablet 07/15/2023 Active Amoxicillin-Pot Clavulanate 875-125 MG Oral Tablet (Augmentin) Take 1 Tablet by mouth in the morning and 1 Tablet before bedtime. Do all this for 9 days. 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 06/25/2023 Hyperuricemia 06/25/2023 At high risk of tumor lysis syndrome 06/25/2023 History of immunosuppression therapy 06/25/2023 Cancer related pain 06/25/2023 Hypokalemia 06/22/2023 Neoplasm related pain 06/22/2023 Therapeutic opioid induced constipation 06/22/19 24 Palliative care encounter 06/22/2023 Goals of care, counseling/discussion 06/22/2023 Retroperitoneal mass 06/21/2023 Kidney stones 05/21/2023 HTN, goal below 140/90 04/20/2023 Visual field defect due to a nd not concurrent with cerebrovascular accident (CVA) 04/22/2022 Pneumonia of left lower lobe due to infectious o rganism 07/05/2021 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 Overview: Follows in [place] q6m History of petit-mal seizures 03/07/2016 Tobacco use disorder 01/01/2016 Migraine with aura and witho ut status migrainosus, not intractable 12/18/2014 Gastroesophageal reflux disease with esophagitis 12/18/2014 Adjustment disorder with depressed mood 08/15/19 documented as of this encounter (statuses as of 07/18/2023) Resolved Problems Problem Noted Date Diagnosed Date Resolved Date Aspiration pneumonitis 06/04/202204/19 Muscle spasm 11/29/2020 11/29/2020 Tenosynovitis of ankle [...] as of this encounter (statuses as of 07/18/2023) Immunizations Name Administration Dates Next Due DT [...] Sign Reading Time Taken Comments Blood Pressure 108/75 07/17/2023 2:08 PM EDT Pulse 84 07/17/2023 2:08 PM EDT Temperature 37.1 C (98.8 F) 07/17/2023 2:08 PM ED T Respiratory Rate 16 07/17/2023 2:08 PM EDT Oxygen Saturation 96% 07/17/2023 2:08 PM EDT Inhaled Oxygen Concentration - - Weight 112.9 kg (249 lb) 07/17/2023 12:13 PM EDT Height 180.3 cm (5' 11") 07/17/2023 12:13 PM EDT Body Mass Index 34.73 07/17/2023 12:13 PM EDT documented in this encounter Functional Status [...] No 06/20/2023 documented as of this encounter Discharge Instructions * Discharge Instr - AVS* Medhat Angel MD - 07/17/2023 1:47 PM EDT Discharge Date: 07/17/2023 Provider: Dr. Medhat Angel If you are experiencing any problems related to your procedure, please contact Interventional Radiology at [phone] during normal business hours: Thursday- Thursday 7:30 am - 4 pm. If a problem occursoutside of normal business hours, please call the hospital long wall shear operator at [phone] and ask for theInterventional Radiologist patron attendant. Contact scheduling for Interventional Radiology at [phone] during normal business hours: Thursday-Thursday, 7:30 am - 4 pm. The information below provides you with the instructions and the list of medications you need to betaking following discharge from the hospital. If you have any questions, please ask before leaving.Please carry this letter with you when you see your doctor in the clinic. If you have questions, you can reach us at the numbers above. SPECIAL INSTRUCTIONS Mediport Insertion (Implanted Central Venous Access) A Mediport is a sealed chamber covered by a silicone disc that is surgically placed in a pocket under the skin on the upper chest, just below the collarbone. This chamber connects to a flexible tube that goes into a large vein in the neck. The tip is near the heart. The port provides direct access to the bloodstream and can be used in drawing blood samples and giving intravenous fluids and medications. Some ports allow CT scan injections; these ports are referred to as "Power Ports." The port will be visible only as a small raised area beneath your skin. Home Care If you experience pain or discomfort at the site you may use a cold pack on the site and/or take acetaminophen (Tylenol) or your preferred pain medicine as directed. Avoid contact sports or any activity that may cause blunt force impact to the port area, as it may damage your port. Avoid strenuous activity for 24 to 48 hours after the procedure. Do not lift anything heavier than 10 pounds for 3 days after the procedure. Gradually increase your activity after 24 to 48 hours after the procedure. No dressing changes or wound care are needed at the insertion site. Your wound is closed with sutures on the inside and then sealed on the outside with a special "skin glue" called Dermabond (a surgical glue). Depending on your physician's preference, there may also be "steri strips" applied. It isvery important to let these special bandages fall off on their own. Please do not scrub or pull these bandages off. You may gently wash the area with soap and water. Depending on your physician's preference, there may also be gauze and Tegaderm (clear) bandage overthe Mediport insertion site. You may remove this bandage in 24 hours. You may shower in 24 hours. Gently wash the area and pat it dry. Please DO NOT take a bath, soak in a hot tub, or swim until the wound is completely healed. Your port must be accessed and flushed/heparinized every 30 days if it is not currently being used. When to Call Interventional Radiology Call Interventional Radiology right away if you have any of the following: Fever above 100 degrees Fahrenheit Increased bleeding, redness, swelling, warmth, or discharge at the incision site. Constant or increasing pain, numbness, coldness, or tingling around the incision area. Vomiting or nausea that does not go away If at any time you experience any of the following or feel you are having a medical emergency, [email or web address] for emergency assistance. Chest Pain Sudden, severe shortness of breath Rapid heart rate Sudden onset of weakness Do not smoke or use tobacco products in any way! If you feel suicidal or homicidal, please call the crisis hotline at [phone]-[phone] ([phone]) MODERATE SEDATION You may have received medication that made you comfortable/sedated you during your procedure. This is considered moderate sedation. This medication was given to relax you. You may also not remember having the procedure done. It may take up to 24 hours for this medication to be out of your system. Because of this, you should observe the following for the next 24 hours: Do not drink alcohol or take depressant drugs. Do not operate any type of machinery that requires hand-eye coordination. Do not sign any legal papers or documents. Do not make any financial decisions. You should be in the presence of an adult for the remainder of the day. If you are experiencing any problems related to your procedure, you should contact the Interventional Radiology physician unless otherwise directed. Driving: You may resume driving 2 day . Diet: You may resume your current diet as tolerated. Return to work or school: You may return to school or work 2 days after the procedure, unless otherwise instructed by the physician. documented in this encounter Progress Notes * Medhat Angel MD - 07/17/2023 1:55 PM EDT [facility] [address] OUTPATIENT SURGERY DISCHARGE SUMMARY NOTE Name: Farhad Franco Location: OR [facility]/[place] Date: 07/17/2023 Time: 1:55 PM Surgery Date: 07/17/2023 Procedure: INSERT TUNNELED CENTRAL VENOUS ACCESS WITH SUBQ PORT Right Surgeon: Medhat Angel MD Discharge Diagnosis: port placement After examination of this patient, I have determined he is ready for discharge to home when the patient meets criteria. Discharge instructions were given to the patient. 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 Follows in [place] q6m Cerebrovascular accident (CVA) (HCC) Gastroesophageal reflux disease with esophagitis 12/18/2014 History of petit-mal seizures 03/07/2016 Migraine with aura and without status migrainosus, not intractable 12/18/2014 Tobacco use disorder 01/01/2016 Past Surgical History: Procedure Laterality Date COLONOSCOPY, DIAGNOSTIC (RECTUM) 02/05/2022 normal bx / COLONOSCOPY FLEXIBLE PROXIMAL DIAGNOSTIC performed by Laurence Dent MD at [facility]COPY [facility] EGD, FLEXIBLE, DIAGNOSTIC 02/05/2022 normal bx / ESOPHAGOGASTRODUODENOSCOPY (EGD), FLEXIBLE, TRANSORAL, DIAGNOSTIC performed by Laurence Dent MD at [facility]COPY [facility] INFORMATION Arteriograms. IR BIOPSY 06/22/2023 ND ANESTH,OPEN HEAD SURGERY Social History Socioeconomic History [...] on file Housing Stability: Not on file No family history on file. Review of patient's allergies indicates: No Known Allergies Current Facility-Administered Medications Medication Dose Route Frequency Provider Last Rate Last Admin isolyte-S pH 7.4 infusion Intravenous Continuous Medhat Angel MD 10 mL/hr at 07/17/23 1245 New Bag at 07/17/23 1245 REVIEW OF SYSTEMS: Constitutional: (-) fever chills sweats or weight loss Cardiovascular: (-) negative: no chest pain, dyspnea, syncope, or palpitations Pulmonary: (-) negative: no cough, wheezing, or shortness of breath Abdominal/GI: (-) negative: no pain, heartburn, dysphagia, bleeding, change in bowel habits, nauseaor vomiting OBJECTIVE: BP 127/87 | Pulse 92 | Temp 36.3 C (97.3 F) (Tympanic) | Resp 16 | Ht 1.803 m (5' 11") | Wt 112.9 kg (249 lb) | SpO2 98% | BMI 34.73 kg/m | BSA 2.38 m PHYSICAL EXAM: Constitutional: no acute distress CV: normal rate and rhythm, no murmur, gallops or rub Chest: normal respiratory effort, lungs clear to auscultation and percussion, breath sounds normal Abdomen: normal: soft, bowel sounds normal, no masses, tenderness or organomegaly LABS: CBC Results: PT INR Results: Results for orders placed or performed during the hospital encounter of 07/12/23 PT INR Result Value Ref Range Prothrombin Time 13.7 11.6 - 15.2 seconds INR 1.1 0.8 - 1.2 Results for orders placed or performed during the hospital encounter of 06/20/23 PT INR Result Value Ref Range Prothrombin Time 13.4 11.6 - 15.2 seconds INR 1.0 0.8 - 1.2 PT INR Result Value Ref Range Prothrombin Time 13.4 11.6 - 15.2 seconds INR 1.0 0.8 - 1.2 BUN Results: Lab Results Component Value Date/Time BUN - [facility] 9 07/15/2023 11:13 AM BUN - [facility] 10 07/14/2023 04:48 AM BUN - [facility] 13 07/13/2023 07:54 AM BUN - [facility] 14 11/11/2019 01:50 PM BUN - [facility] 6 11/15/2013 08:59 AM Creatinine Results: Lab Results Component Value Date/Time CREATININE - [facility] 1.0 07/15/2023 11:13 AM CREATININE - [facility] 1.0 07/14/2023 04:48 AM CREATININE - [facility] 0.8 07/13/2023 07:54 AM CREATININE - [facility] 1.1 11/11/2019 01:50 PM CREATININE - [facility] 1.0 11/15/2013 08:59 AM CREATININE, RANDOM URINE - [facility] 211 08/02/2021 09:59 AM CREATININE-OUTSIDE LAB 1.10 06/19/2023 12:00 AM CREATININE-OUTSIDE LAB 1.00 06/10/2023 12:00 AM CREATININE-OUTSIDE LAB 0.90 06/09/2023 12:00 AM Potassium Results: Lab Results Component Value Date/Time POTASSIUM - [facility] 3.3 (L) 07/15/2023 11:13 AM POTASSIUM - [facility] 3.7 07/14/2023 04:48 AM POTASSIUM - [facility] 3.9 07/13/2023 07:54 AM POTASSIUM - [facility] 4.8 11/11/2019 01:50 PM POTASSIUM - [facility] 4.1 11/15/2013 08:59 AM POTASSIUM-OUTSIDE LAB 3.2 (A) 06/19/2023 12:00 AM POTASSIUM-OUTSIDE LAB 3.3 (A) 06/10/2023 12:00 AM POTASSIUM-OUTSIDE LAB 3.5 (A) 06/09/2023 12:00 AM INFORMED CONSENT: Yes PRE-SEDATION ASSESSMENT IMPRESSION/PLAN: Port placement Medhat Angel MD documented in this encounter Nursing Notes * Jaquan Epps RN - 07/17/2023 1:15 PM EDT Pt condition was reassessed by Dr. Medhat Angel immediately prior to start of moderate sedation and procedure. documented in this encounter OR Notes * OR Surgeon - Medhat Angel MD - 07/17/2023 1:54 PM EDT Procedure: chest medical port placement 07/17/2023 INDICATION: Burkitt's lymphoma central intravenous access needed for chemotherapy.] ATTENDING (OPERATING PHYSICIAN): [Jeanne] CONSENT: After a detailed discussion of the procedure, risks, benefits and alternative treatment options, informed consent was obtained. TIME OUT: A time out procedure was performed. The patient's identification was verified. Informed consent with agreement of procedure, site and position was obtained. All necessary equipment was available prior to procedure. CONTRAST: No contrast was administered. COMPLICATIONS: None. ANESTHESIA: [Local lidocaine.] [IV Versed.] [IV Fentanyl.] SEDATION TIME: [Start to end: [00 17-0064]. Qualified nurse sedation observer [RYLAN Rashid.] MEDICATIONS: See MAR PROCEDURE DESCRIPTION: The [right] neck and chest were prepped and draped in the usual sterile fashion. After local anesthesia, a small incision was made at the site of venous access in the neck. Using real-time ultrasound guidance, the internal jugular vein was punctured with a micro puncture needle. Digital ultrasound images were acquired and digitally archived. A wire and sheath were used to secure access to the internal jugular vein access using fluoroscopic guidance. [A second incision was made in the upper chest and a pocket was created. The medical port catheter was tunneled from the pocket to the venotomy site. A peel- away sheath was placed through the venotomy over the wire and the catheter was advanced through a peel-away sheath and positioned under fluoroscopic guidance. The catheter was then measured to [25] cm, cut, and attached to a power injectable port.] Once the medical port and catheter were in satisfactory position, the medical port was accessed, had appropriate blood return, and easily flushed and was locked with dilute heparin. [The incision wasthen closed in layers with absorbable sutures and tissue adhesive.] The venotomy site was closed with [absorbable suture and] tissue adhesive. I personally performed the procedure. Findings: Ultrasound shows an anechoic and compressible [right] internal jugular vein. The medical port is inthe upper chest with the catheter tip at the [right atrium] Impression: Successful placement of a chest power injectable medical port. * Operative Report Brief - Medhat Angel MD - 07/17/2023 1:46 PM EDT PROCEDURE NOTE - Interventional Radiology [facility]-[address] [address] Name: Farhad Franco Location: [facility]/[place] Date: 07/17/2023 Time: 1:46 PM PROCEDURE: port placement FLOOR SPACE ALLOCATOR: Dr. Medhat Angel ASSISTANTS: none ANESTHESIA: conscious sedation COMPLICATIONS: none SPECIMEN: none ESTIMATED BLOOD LOSS: negligible FINDINGS: right IJ patent documented in this encounter Miscellaneous Notes * Sedation Note - Medhat Angel MD - 07/17/2023 1:46 PM EDT Post Sedation Evaluation: Cardiovascular status: acceptable, BP returned to baseline, and hemodynamically stable Level of consciousness: awake and alert Airway patency: patent Distress - NAD Hydration status - well hydrated Nausea/vomiting - not present Pain Evaluation Pain Assessment Flowsheet Row Most Recent Value Pain Assessment Scale [facility] Scale 0-10 Pain Score 0 (no pain) Vital Signs: Temp: 36.3 C (97.3 F) (07/16 1213) BP: 113/73 (07/16 1340) Pulse: 88 (07/16 1340) Resp: 15 (07/16 1335) SpO2: 98 % (07/16 1340) I have personally examined the patient, prescribed the necessary medications as charted, and certify that Farhad Franco is recovered for safe discharge from my face to face care. * Pre-Sedation Assessment - Medhat Angel MD - 07/17/2023 12:50 PM EDT PRE-SEDATION ASSESSMENT PRE-SEDATION ASSESSMENT: Port Placement Level of sedation planned: Moderate Patient's allergies reviewed: Yes H&P Review / Interval Note Documentation: There is no H&P on file. Difficulty with sedation / anesthesia: No Sleep apnea: No History of snoring: No History of difficult intubation: No Decreased ROM neck flexion/extension: No Tracheal deviation: No Decreased ability to open mouth / TMJ: No Loose teeth / dentures / partial: No Congenital deformities / abnormalities: No Dysphagia: No Mallampati Classification: II - soft palate, uvula, fauces visible Chest: Clear Heart: Regular Rhythm Adequate Vascular Access: Yes ASA Risk Stratification (Select One): ASA 2 - Mild systemic disease, no functional limitations The patient was identified and the procedure verified: Yes The patient was reevaluated immediately prior to the sedation: 07/17/2023 12:51 PM documented in this encounter Plan of Treatment Upcoming Encounters Date Type Department Care Team (Late st Contact Info) Description 07/20/2023 1:40 PM EDT Office Visit [address], [place] [id number] [facility] [place] [address] Kayla Reeder DO [address] [facility] [place] [address] 07/22/2023 9:00 AM EDT Office Visit Palliative Medicine [facility] [address] [place] [address] Aury Silva MD [address] [place] [address] 07/22/2023 2:00 PM EDT Appointment Radiology, [address] [phone] 07/27/2023 8:00 AM EDT Laboratory Laboratory, [address] [phone] [facility], Lab [address] [place] [address] 07/27/2023 9:00 AM EDT Office Visit Hematology/Oncology, [address] [address] Mike Chaudhary MD [address] [place] [address] 08/12/2023 2:00 PM EDT Appointment Radiology, [address] [phone] 08/26/2023 1:00 PM EDT Office Visit Sleep Disorders, [address] [address] Dave Daigle PA-C [address] [place] [address] 09/25/2023 2:40 PM EDT Office Visit Rheumatology [facility] [address] [facility] [place] [address] Oliver Zhang MD [address] [place] [address] Health Maintenance Due Date Last Done Comments COVID-19 Vaccine (#1) 1993 Influenza Vaccine (FLU shot) (Season Ended) 2023 11/17/2016, 11/17/2016, 11/30/2015, Additional history exists Depression Screening 07/07/2024 07/08/2023, 06/11/19 24 Albumin/Creatinine Ratio Discontinued 08/02/2021 documented as of this encounter Medical Devices Implanted Type Area New Product Trainer Device Identifier Shelf Expiration Date Model / Serial / Lot Mediport Pwr Mri 8fr [id number] - [id number] Implanted:Qty : 1 on 07/17/2023 by Medhat Angel MD at OR [facility] Right: Chest CR BARD : PERIPHERAL VASCULAR 07/16/2024 [id number] / / [id number] Port Implant W8f Poly Cath - [id number] Implanted:Qty : 1 on 07/17/2023 by Medhat Angel MD at OR [facility] CR BARD : PERIPHERAL VASCULAR [id number] 07/16/2024 [id number] / / [id number] documented as of this encounter Procedures Procedure Name Priority Date/Time Associated Diagnosis Comments IR INTERVENTIONAL RADIOLOGY PROCEDURE IN OR Routine 07/17/2023 1:50 PM EDT documented in this encounter Results * IR INTERVENTIONAL RADIOLOGY PROCEDURE IN OR (07/17/2023 1:50 PM EDT) 07/17/2023 1:56 PM EDT [facility] - 07/17/2023 1:54 PM EDT IMPRESSION: Successful placement of a chest power injectable medical port. Narrative [facility] - 07/17/2023 1:54 PM EDT PROCEDURE: chest medical port placement 07/17/2023 INDICATION: Burkitt's lymphoma central intravenous access needed for chemotherapy. ATTENDING (OPERATING PHYSICIAN): Jeanne CONSENT: After a detailed discussion of the procedure, risks, benefits and alternative treatment options, informed consent was obtained. TIME OUT: A time out procedure was performed. The patient's identification was verified. Informed consent with agreement of procedure, site and position was obtained. All necessary equipment was available prior to procedure. CONTRAST: No contrast was administered. COMPLICATIONS: None. ANESTHESIA: Local lidocaine. IV Versed. IV Fentanyl. SEDATION TIME: Start to end: . Qualified nurse sedation observer RYLAN Stevenson. MEDICATIONS: See [facility] PROCEDURE DESCRIPTION: The right neck and chest were prepped and draped in the usual sterile fashion. After local anesthesia, a small incision was made at the site of venous access in the neck. Using real-time ultrasound guidance, the internal jugular vein was punctured with a micro puncture needle. Digital ultrasound images were acquired and digitally archived. A wire and sheath were used to secure access to the internal jugular vein access using fluoroscopic guidance. A second incision was made in the upper chest and a pocket was created. The medical port catheter was tunneled from the pocket to the venotomy site. A peel-away sheath was placed through the venotomy over the wire and the catheter was advanced through a peel-away sheath and positioned under fluoroscopic guidance. The catheter was then measured to 25 cm, cut, and attached to a power injectable port. Once the medical port and catheter were in satisfactory position, the medical port was accessed, had appropriate blood return, and easily flushed and was locked with dilute heparin. The incision was then closed in layers with absorbable sutures and tissue adhesive. The venotomy site was closed with absorbable suture and tissue adhesive. I personally performed the procedure. FINDINGS: Ultrasound shows an anechoic and compressible right internal jugular vein. The medical port is in the upper chest with the catheter tip at the right atrium Procedure Note Medhat Angel MD - 07/17/2023 PROCEDURE: chest medical port placement 07/17/2023 INDICATION: Burkitt's lymphoma central intravenous access needed forchemotherapy. ATTENDING (OPERATING PHYSICIAN): Jeanne CONSENT: After a detailed discussion of the procedure, risks, benefits andalternative treatment options, informed consent was obtained. TIME OUT: A time out procedure was performed. The patient's identificationwas verified. Informed consent with agreement of procedure, site andposition was obtained. All necessary equipment was available prior toprocedure. CONTRAST: No contrast was administered. COMPLICATIONS: None. ANESTHESIA: Local lidocaine. IV Versed. IV Fentanyl. SEDATION TIME: Start to end: . Qualified nurse sedationobserver RYLAN Stevenson. MEDICATIONS: See MAR PROCEDURE DESCRIPTION: The right neck and chest were prepped and draped inthe usual sterile fashion. After local anesthesia, a small incision wasmade at the site of venous access in the neck. Using real-timeultrasound guidance, the internal jugular vein was punctured with a micropuncture needle. Digital ultrasound images were acquired and digitallyarchived. A wire and sheath were used to secure access to the internaljugular vein access using fluoroscopic guidance. A second incision was made in the upper chest and a pocket was created.The medical port catheter was tunneled from the pocket to the venotomysite. A peel-away sheath was placed through the venotomy over the wire andthe catheter was advanced through a peel-away sheath and positioned underfluoroscopic guidance. The catheter was then measured to 25 cm, cut, andattached to a power injectable port. Once the medical port and catheter were in satisfactory position, themedical port was accessed, had appropriate blood return, and easilyflushed and was locked with dilute heparin. The incision was then closedin layers with absorbable sutures and tissue adhesive. The venotomy sitewas closed with absorbable suture and tissue adhesive. I personally performed the procedure. FINDINGS: Ultrasound shows an anechoic and compressible right internal jugular vein.The medical port is in the upper chest with the catheter tip at the rightatrium IMPRESSION IMPRESSION: Successful placement of a chest power injectable medical port. Medhat Angel MD RAD SPECIAL PROCEDUR ES [facility] documented in this encounter Administered Medications Inactive Administered Medications - up to 3 most recent administrations Medication Order MAR Action Action Date Dose Rate Site ceFAZolin in dextrose (Ancef) ivpb 2 g 2 g, IV Piggyback, ONCE, 1 dose, On Thu07/17/23 at 1345, Pre-Op New Bag 07/17/2023 1:17 PM EDT 2 g 100 mL/hr isolyte-S pH 7.4 infusion Intravenous, at 10 mL/hr, Plasma-LYTE 148, isolyte-S, and isolyte-S pH 7.4 are considered equivalent - including for MAR barcode scanning., CONTINUOUS, Starting on Thu07/17/23 at 1245, Until Thu07/17/23 at 1822, Pre-Op New Bag 07/17/2023 12:45 PM EDT 10 mL/hr documented in this encounter Active and Recently Administered Medications Times are shown in EDT. Scheduled Medication Order 07/15/2023 07/16/2023 07/17/2023 ceFAZolin in dextrose (Ancef) ivpb 2 g (COMPLETED) 2 g, IV Piggyback, ONCE, 1 dose, On Thu07/17/23 at 1345, Pre-Op 1317 (New Bag - Prov ider: Inder Stevenson, RYLAN) Continuous Medication Order 07/15/2023 07/16/2023 07/17/2023 isolyte-S pH 7.4 infusion Intravenous, at 10 mL/hr, Plasma-LYTE 148, isolyte-S, and isolyte-S pH 7.4 are considered equivalent - including for MAR barcode scanning., CONTINUOUS, Starting on Thu07/17/23 at 1245, Until Thu07/17/23 at 1822, Pre-Op 1245 (New Bag - Prov ider: Lazaro Mahajan RN) PRN Medication Order 07/15/2023 07/16/2023 07/17/2023 buffered lidocaine 1 % inj (CANCELED) ONCE PRN INTRA PROCEDURE, Starting on Thu07/17/23 at 1337, Until Thu07/17/23 at 1349, Intra-Op 1337 (Given - Provid er: Medhat Angel MD) fentaNYL (PF) inj (CANCELED) ONCE PRN INTRA PROCEDURE, Starting on Thu07/17/23 at 1317, Until Thu07/17/23 at 1349, Intra-Op 1317 (Given - Provid er: Inder Stevenson RN) hEParin 100 UNIT/ML Lock Flush inj (CANCELED) ONCE PRN INTRA PROCEDURE, Starting on Thu07/17/23 at 1338, Until Thu07/17/23 at 1349, Intra-Op 1338 (Given - Provid er: Medhat Angel MD) midazolam (Versed) 2 MG/2ML inj (CANCELED) ONCE PRN INTRA PROCEDURE, Starting on Thu07/17/23 at 1318, Until Thu07/17/23 at 1349, Intra-Op 1318 (Given - Provid er: Inder Stevenson RN) documented in this encounter Advance Directives * [...] Relationship Healthcare Agent [facility] p Communication Trixie Le [facility] Repr esentative (appointed verbally by patient or by statute hierarchy) [email or web address] Care Teams Timber Mill Worker Relationship Specialty Start Date End Date Kayla Reeder DO [address] [place] [address] PCP - General Family Medicine 06/11/23 documented as of this encounter
--- OUTSIDE RECORDS SUMMARY | 2023-09-18 21:32 | External Medical Summary | Summary of Care ---
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)* Allergies No known active allergiesdocumented as of this encounter (statuses as of 07/20/2023) Medications Medication Sig Dispensed Refills Start Date [...] as of this encounter (statuses as of 07/20/2023) Active Problems Problem Noted Date Diagnosed Date [...] as of this encounter (statuses as of 07/20/2023) Resolved Problems Problem Noted Date Diagnosed Date [...] as of this encounter (statuses as of 07/20/2023) Immunizations Name Administration Dates Next Due DT [...] 9:00 AM EDT Office Visit Palliative Medicine [facility] [address] [place] [address] Aury Silva MD [address] [place] [address] 07/22/2023 2:00 PM EDT Hospital Encounter Radiology, [address] [address] 07/27/2023 8:00 AM EDT Laboratory Laboratory, [address] [address] [facility], Lab [address] [place] [address] 07/27/2023 9:00 AM EDT Office Visit Hematology/Oncology, [address] [address] Mike Chaudhary MD [facility] [place] [address] 08/12/2023 2:00 PM EDT Appointment Radiology, [address] [address] 08/26/2023 1:00 PM EDT Office Visit Sleep Disorders, [address] [address] Dave Daigle PA-C [address] [place] [address] 09/25/2023 2:40 PM EDT Office Visit Rheumatology [place] [address] [facility] [place], [place] [address] Oliver Zhang MD [facility] [place] [address] 02/19/2024 12:00 PM EST Office Visit Family Practice [address], [place] [address] [place] [phone] Kayla Reeder DO [address] [place] [address] Scheduled Orders Name Type Priority Associated Diagnoses Orde r Schedule CYTOLOGY Pathology Routine 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) Expected: 07/22/2023, Expires: 08/18/2024 FLOW CYTOMETRY, LEUKEMIA LYMPHOMA PANEL Lab STAT 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) Expected: 07/23/2023, Expires: 07/19/2024 Health Maintenance Due Date Last Done Comments COVID-19 Vaccine (#1) 1993 Influenza Vaccine (FLU shot) (Season Ended) 2023 11/17/2016, 11/17/2016, 11/30/2015, Additional history exists Depression Screening 07/07/2024 07/08/2023, 06/11/19 24 Albumin/Creatinine Ratio Discontinued 08/02/2021 documented as of this encounter Medical Devices Implanted Type Area Yarn Winder Device Identifier Shelf Expiration Date Model / Serial / Lot Mediport Pwr Mri 8fr [id number] - [id number] Implanted:Qty : 1 on 07/17/2023 by Medhat Angel MD at OR [facility] Right: Chest CR BARD : PERIPHERAL VASCULAR 07/16/2024 [id number] / / [id number] Port Implant W8f Poly Cath - [id number] Implanted:Qty : 1 on 07/17/2023 by Medhat Angel MD at OR [facility] CR BARD : PERIPHERAL VASCULAR [id number] 07/16/2024 [id number] / / [id number] documented as of this encounter Visit Diagnoses [...] Healthcare Agent Relationshi p Communication Trixie Le [facility] Care Repr esentative (appointed verbally by patient or by statute hierarchy) [email or web address] Care Teams Delivery Truck Driver Relationship Specialty Start Date End Date Kayla Reeder DO [address] [facility] [place] [address] PCP - General Family Medicine 06/11/23 documented as of this encounter
--- OUTSIDE RECORDS SUMMARY | 2023-09-18 21:32 | External Medical Summary | Summary of Care ---
Author Name Unknown Organization [facility] Address [address] [place] [address] Phone [phone] Care Team Providers Care Gaming Cage Cashier Name Role Phone Kayla Reeder DO Primary Care Provider +1- [phone] Reason for Visit * Reason Onset Date Comments Other 07/15/2023 Med RX issues an d questioning Neupogen Inj Encounter Details Date Type Department Care Team (Late st Contact Info) Description 07/15/2023 Telephone Hematology Oncology [facility] [address] [place] [address] Mike Chaudhary MD [address] [place] [address] Other (Med RX issues and questioning Neupo... Allergies No known active allergiesdocumented as of this encounter (statuses as of 07/15/2023) Medications Medication Sig Dispensed Refills Start Date [...] before bedtime. 60 Tablet 2 07/07/2023 Active Sennosides-Docusat e Sodium 8.6-50 MG Oral Tablet (Senokot-S) Take 2 Tablets by mouth in the morning and 2 Tablets in the evening. 60 Tablet 1 07/07/2023 Active Amoxicillin-Pot Clavulanate 875-125 MG Oral Tablet (Augmentin) Take 1 Tablet by mouth in the morning and 1 Tablet before bedtime. Do all this for 9 days. 18 Tablet 07/07/2023 07/16/2023 Active Allopurinol 300 MG Oral Tablet (Zyloprim) [...] other nostril. 2 Each 3 07/07/2023 Active Additional Information Patient not taking.Reported on 07/13/2023 Ondansetron HCl 4 MG Oral TabletIndications: Need [...] throat (oral pain). 900 mL 07/14/2023 Active documented as of this encounter (statuses as of 07/15/2023) Active Problems Problem Noted Date Diagnosed Date [...] pain 06/22/2023 Therapeutic opioid induced constipation 06/22/19 Palliative care encounter 06/22/2023 Goals of care, [...] as of this encounter (statuses as of 07/15/2023) Resolved Problems Problem Noted Date Diagnosed Date [...] as of this encounter (statuses as of 07/15/2023) Immunizations Name Administration Dates Next Due DT [...] Telephone Encounter - Shannon Kendall RN - 07/15/2023 2:16 PM EDT Lakeshia ordered compazine, lose dose and sent to pharmacy. Sent myG message as mother and patient confirmed they check often. * Telephone Encounter - Shannon Kendall RN - 07/15/2023 1:48 PM EDT Mother and patient made aware of the below message. Lakeshia - Mother stating the seizures have not been an issue since he was a senior in High School. State he had one focal seizure. Asking to review that again as they have never been told this before. Dr. Neena Haddad I double checked with Vanessa. There are no orders anywhere for the methotrexate. A supportive care plan was built but no orders were ever placed. According to the staff message sent while he was still inpatient by Vanessa Nunez RN "he will need the orders placed for the IT injection as well as orders to send his CSF once assigned a physician on discharge." There was something scanned in but that was not an order - just the dates needed. Please review. * Telephone Encounter - Shannon Kendall RN - 07/15/2023 1:45 PM EDT Message from NIK Cobb sent via teams: [1:43 PM] Lakeshia Stone, would you be able to call Farhad Franco , his mom, please? Let them know that they still need to go to [place] for the Methotrexate and also that I cannot order the Compazine due to his history of seizures - it lowers his seizure threshold and increases the likelihood that he mayhave one. They may have been able to give it [place] because he was monitored and in the hospital. * Telephone Encounter - Shannon Kendall RN - 07/15/2023 11:46 AM EDT Spoke with the patient and his family. Hao Schulte was called into the [facility] since they are the only local pharmacy that does compounds. Will be able to pick it up after their appointment. Address provided to the pharmacy. This was prescribed by the hospitalist but called in under Dr. Chaudhary just incase he needs refills. As for the shot - the mother apologized and didn't realize he got his "shot" last week because she did not bring him to that appointment. Mother concerned for his white blood cell count not increasing. Aware that is currently to be given 24 hours after treatment so no shot needed at this time. Mother made aware of the plan for tumor board meeting on 07/19 for further discuss of treatment. States she received calls to set up IT methotrexate. Aware nothing at this point can be scheduled until we know the plan which will better come together after 07/19. It appears there is an appointment in [place] radiology on 07/21 for the fluoro room which would be for the IT methotrexate. Upon reviewing his labs noted a jump in his WBC. Patient noted to be pale and diaphoretic in the waiting room while we were talking. Asked the MA's to obtain an oral temp to ensure no fever is occurring. Temp [address] Chaudhary/Lakeshia - just an FYI. Im assuming we should keep that IR appointment just incase we proceed with the current treatment but I do not believe there are active orders for the IT methotrexate so I'm not sure how he is scheduled. Please advise. * Telephone Encounter - Rebeca Piper OSA - 07/15/2023 11:28 AM EDT Pt here now for an appt and mother is asking if he is to be receiving the Nuepogen inj while here (says she was told they were). Not sure who discussed that with them and then she stated the Rx for Magic Swizzel is too hard to get .... Asking to have chlorhexidine instead... documented in this encounter Plan of Treatment Upcoming Encounters Date Type Department Care Team (Latest Contact Info) Description 07/17/2023 1:06 PM EDT Hospital Encounter OR [facility], Operating Room, [facility] - 4th Floor [address] [place] [address] Mehdat Angel MD [address] [place], [place] [address] [address] 07/17/2023 1:06 PM EDT - 07/17/2023 2:05 PM EDT Surgery OR [facility], Operating Room, [facility] - 4th Floor [address] [place] [address] Medhat Angel MD [address] [place], [place] [address] [address] INSERT TUNNELED CENTRAL VENOUS ACCESS WITH SUBQ PORT 07/20/2023 1:40 PM EDT Office Visit Pending [facility] [place] [address] [facility] [address] [facility] [place] [address] Kayla Reeder DO [address] [place] [address] 07/22/2023 9:00 AM EDT Office Visit Palliative Medicine [facility] [address] [place] [address] Aury Silva MD [address] [place] [address] [place] [address] 07/22/2023 2:00 PM EDT Appointment Radiology, [address] [address] 07/27/2023 8:00 AM EDT Laboratory Laboratory, [address] [place] [phone] [facility], Lab [address] [place], [place] [address] [address] 07/27/2023 9:00 AM EDT Office Visit Hematology/Oncolog y, [facility] [address] [place] [address] Mike Chaudhary MD [facility] [address] [place], [place] [phone] 08/12/2023 2:00 PM EDT Appointment Radiology, [address] [address] 08/26/2023 1:00 PM EDT Office Visit Sleep Disorders, [facility] [address] [place], [place] [phone] Dave Daigle PA-C [address] [place] [address] Scheduled Procedures Name Priority Associated Diagnoses Date/Ti me INSERT TUNNELED CENTRAL VENOUS ACCESS WITH SUBQ PORT B-cell lymphoma of intra-abdominal lymph nodes, unspecified B-cell lymphoma type (HCC) 07/17/2023 1:06 PM EDT Health Maintenance Due Date Last Done Comments COVID-19 Vaccine (#1) 1995 Influenza Vaccine (FLU shot) (Season Ended) 2023 11/17/2016, 11/17/2016, 11/30/2015, Additional history exists Depression Screening 07/07/2024 07/08/2023, 06/11/19 24 Albumin/Creatinine Ratio Discontinued 08/02/2021 documented as of this encounter Medical Devices Not on filedocumented as of this encounter Advance Directives * [...] Healthcare Agent Relationshi p Communication Trixie D [facility] Repr esentative (appointed verbally by patient or by statute hierarchy) [email or web address] Care Teams Gaming Cage Cashier Relationship Specialty Start Date End Date Kayla Reeder DO [address] [facility] [place] [address] PCP - General Family Medicine 06/11/23 documented as of this encounter
--- OUTSIDE RECORDS SUMMARY | 2023-09-18 21:32 | External Medical Summary | Summary of Care ---
Author Name Unknown Organization [facility] Address [address] [place] [address] Phone [phone] Care Team Providers Care Director Fixed Income Name Role Phone Kayla Reeder DO Primary Care Provider +1- [phone] Reason for Visit * Reason Onset Date Comments Other 07/15/2023 Med RX issues an d questioning Neupogen Inj Encounter Details Date Type Department Care Team (Late st Contact Info) Description 07/15/2023 Telephone Hematology Oncology [facility] [address] [place] [address] Mike Chaudhary MD [address] [place] [address] Other (Med RX issues and questioning Neupo... Allergies No known active allergiesdocumented as of this encounter (statuses as of 07/17/2023) Medications Medication Sig Dispensed Refills Start Date [...] throat (oral pain). 900 mL 07/14/2023 Active Amoxicillin-Pot Clavulanate 875-125 MG Oral Tablet (Augmentin) Take 1 Tablet by mouth in the morning and 1 Tablet before bedtime. Do all this for 9 days. 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 Overview: Follows in [place] q6m History of petit-mal seizures 03/07/2016 Tobacco use disorder 01/01/2016 Migraine with aura and witho ut status migrainosus, not intractable 12/18/2014 Gastroesophageal reflux disease with esophagitis 12/18/2014 Adjustment disorder with depressed mood 08/15/19 10 documented as of this encounter (statuses as of 07/17/2023) Resolved Problems Problem Noted Date Diagnosed Date [...] as of this encounter (statuses as of 07/17/2023) Immunizations Name Administration Dates Next Due DT [...] Telephone Encounter - Shannon Kendall RN - 07/17/2023 9:19 AM EDT Lakeshia - please see below message. Did you mention prescribing potassium to the patient? I did not review his labs nor discuss labs with him or his family at any point. If so, it was never sent to [facility]pharmacy. * Telephone Encounter - Shannon Kendall RN [...] have never been told this before. Dr. Chaudhary - Paulo double checked with Vanessa. There are no [...] that they still need to go to [place] for the Methotrexate and also that I cannot order the Compazine due to his history of seizures - it lowers his seizure threshold and increases the likelihood that he mayhave one. They may have been able to give it [place] because he was monitored and in the hospital. * Telephone Encounter - Shannon Kendall RN - 07/15/2023 11:46 AM EDT Spoke with the patient and his family. Hao Schulte was called into the [facility] since they are the only local [...] It appears there is an appointment in [place] radiology on 07/21 for the fluoro room [...] and then she stated the Rx for Hao Robertson is too hard to get .... Asking to have chlorhexidine instead... documented in this encounter Plan of Treatment Upcoming Encounters Date Type Department Care Team (Late st Contact Info) Description 07/20/2023 1:40 PM EDT Office Visit Family Practice [place] [address] [place] [address] Kayla Reeder DO [address] [facility] [place] [address] 07/22/2023 9:00 AM EDT Office Visit Palliative Medicine [facility] [address] [place] [address] Aury Silva MD [address] [place] [address] 07/22/2023 2:00 PM EDT Appointment Radiology, [address] [phone] 07/27/2023 8:00 AM EDT Laboratory Laboratory, [address] [phone] [facility], Lab [address] [place] [address] 07/27/2023 9:00 AM EDT Office Visit Hematology/Oncology, [address] [address] Mike Chaudhary MD [address] [place] [address] 08/12/2023 2:00 PM EDT Appointment Radiology, [address] [facility] [address] 08/26/2023 1:00 PM EDT Office Visit Sleep Disorders, [facility] [address] [facility] [place] [address] Dave Daigle PA-C [address] [facility] [place] [phone] 09/25/2023 2:40 PM EDT Office Visit Rheumatology [place] [address] [employer] [place] [address] Oliver Zhang MD [address] [employer] [place] [address] Scheduled Procedures Name Priority Associated Diagnoses Date/Ti [...] File Name Relationship Healthcare Agent [facility] p Communication [facility] Repr esentative (appointed verbally by patient or by statute hierarchy) [email or web address] Care Teams Director Fixed Income Relationship Specialty Start Date End Date Kayla Reeder DO [address] [facility] [place] [address] PCP - General Family Medicine 06/11/23 documented as of this encounter
--- OUTSIDE RECORDS SUMMARY | 2023-09-18 21:32 | External Medical Summary | Summary of Care ---
Author Name Unknown Organization [facility] Address [address] [place] [address] Phone [phone] Care Team Providers Care Environmental Resource Specialist Name Role Phone Kayla Reeder DO Primary Care Provider +1- [phone] Reason for Visit * Reason Onset Date Comments Hospital Follow-Up Pt home from [place], starting to eat a little bit, as his appetite allows. Doing Boost, one daily. 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 21 Tablet 07/07/2023 4 Active HYDROmorphone HCl 2 MG Oral [...] the morning. 60 Tablet 1 07/08/2023 Active Sennosides-Docusa te Sodium 8.6-50 MG [...] needed for Nausea. 30 Tablet 07/15/2023 Active Acyclovir 400 MG Oral Tablet (Zovirax) Take 1 Tablet by mouth in the morning and 1 Tablet before bedtime. 60 Tablet 2 07/07/2023 4 Discontinue d(End of Procedure) Potassium Chloride 20 MEQ Oral PacketIndications :Hypokalemia Take 20 mEq by mouth in the morning for 7 days. 7 Packet 07/17/2023 Discontinue d(End of Procedure) documented as of this encounter (statuses as [...] 04/22/2022 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 Overview: Follows in [place] q6m History of petit-mal seizures 03/07/2016 Tobacco [...] Sign Reading Time Taken Comments Blood Pressure 132/84 07/20/2023 1:33 PM EDT Pulse 82 07/20/2023 1:33 PM EDT Temperature 36.6 C (97.9 F) 07/20/2023 1:33 PM ED T Respiratory Rate 20 07/20/2023 1:33 PM EDT Oxygen Saturation 98% 07/20/2023 1:33 PM EDT Inhaled Oxygen Concentration - - Weight 113.7 kg (250 lb 9.6 oz) 07/20/2023 1:33 PM EDT Height 180.3 cm (5' 11") 07/20/2023 1:33 PM EDT Body Mass Index 34.95 07/20/2023 1:33 PM EDT documented in this encounter Functional [...] as of this encounter Progress Notes * Kayla Reeder, - 07/20/2023 1:46 PM EDT SUBJECTIVE: Farhad Franco is a 32 year old male. Chief Complaint Patient presents with Hospital Follow-Up Pt home from [place], starting to eat a little bit, as his appetite allows. Doing Boost, one daily. Hospital Follow-Up Recent Admission: Patient was recently admitted to [facility]. The date of discharge was 07/14/23. Discharge report received and reviewed. HPI: 32 yo male here today for hospital follow up Was admitted to [facility] and to [facility] recently Was admitted originally for retroperitoneal mass, diagnosed with burkitts lymphoma Started treatments Is following with oncology regularly, just recently had port placed He was admitted to [facility] and discharged recently on 07/14/23 He was having worsening headaches CTA and MRI of brain were done to rule out any cerebral lymphoma LP was negative at [facility] Headache at this time is improved Oncology was also consulted due to pancytopenia but no change was recommended at that time He is following with palliative care as well Has had follow up with oncology since discharge He overall is feeling better, pain is well controlled Has decreased appetite and nausea, but overall is stable as well He really has no new issues today Mom is POA and this was updated in chart today Component Latest Ref Rng 07/15/2023 WBC 4.00 - 10.80 K/uL 5.20 Neutrophils % 40.0 - 75.0 % 39.0 (L) Lymphocytes % 18.0 - 42.0 % 37.0 Monocytes % 1.0 - 11.0 % 18.0 (H) Eosinophils % 0.0 - 6.0 % 2.0 Basophils % 0.0 - 2.0 % 1.0 Metamyelocytes % <=0.0 % 2.0 (H) Myelocytes % <=0.0 % 1.0 (H) Absolute Neutrophils 1.80 - 7.70 K/uL 2.03 Absolute Lymphocytes 1.00 - 4.80 K/uL 1.92 Absolute Monocytes 0.00 - 1.10 K/uL 0.94 Absolute Eosinophils 0.00 - 0.70 K/uL 0.10 Absolute Basophils 0.00 - 0.20 K/uL 0.05 Absolute Metamyelocytes <=0.00 K/uL 0.10 (H) Absolute Myelocytes <=0.00 K/uL 0.05 (H) Dohle Bodies None Seen Present ! Reactive Lymphocytes None Seen Present ! Giant PLTs None Seen Present ! BUN 6 - 20 mg/dL 9 Creatinine 0.6 - 1.2 mg/dL 1.0 Estimated Glomerular Filtration Rate >=60 mL/min >90 Sodium 135 - 146 mmol/L 138 Potassium 3.5 - 5.1 mmol/L 3.3 (L) Chloride 98 - 107 mmol/L 103 CO2 22 - 32 mmol/L 23 Anion Gap 7 - 15 mmol/L 12 Glucose 70 - 120 mg/dL 150 (H) Albumin 3.8 - 5.0 g/dL 4.4 AST 10 - 50 U/L 26 Alkaline Phosphatase 35 - 130 U/L 126 Bilirubin, Total <=1.2 mg/dL 0.2 Calcium 8.4 - 10.2 mg/dL 9.8 Protein 6.0 - 8.3 g/dL 7.6 ALT 10 - 50 U/L 36 WBC 4.00 - 10.80 K/uL 5.20 RBC 4.50 - 5.25 M/uL 3.75 HGB 14.0 - 16.8 g/dL 11.3 (L) HCT 40.0 - 48.4 % 31.9 (L) MCV 82.0 - 99.5 fL 85.1 MCH 27.0 - 34.0 pg 30.1 MCHC 32.0 - 36.0 g/dL 35.4 RDW 11.5 - 15.5 % 12.7 PLT 140 - 400 K/uL 107 (L) MPV 6.6 - 11.1 fL 11.5 nRBCs <=0 /100 WBCs 2 (H) Uric Acid 3.4 - 7.0 mg/dL 4.5 LD <=250 U/L 362 (H) Patient Active Problem List Diagnosis Adjustment disorder with depressed mood Migraine with aura and without status migrainosus, not intractable Gastroesophageal reflux disease with esophagitis Tobacco use disorder History of petit-mal seizures 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) HTN, goal below 140/90 Kidney stones Hypokalemia Neoplasm related pain Goals of care, counseling/discussion 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 Do all this for 21 days. 21 Tablet 0 HYDROmorphone HCl 2 MG Oral [...] the morning. 30 Tablet 0 Magic Swizzle (Eadaphvkj-Bppktavz-Jgusjb) oral solution Swish and spit 15 mL 4 times a day as needed for Sore throat (oral pain). 900 mL 0 Prochlorperazine Maleate 5 MG Oral Tablet (Compazine) Take 1 Tablet by mouth every 8 hours as needed for Nausea. 30 Tablet 0 No current facility-administered medications for this visit. Current and discharge medications have been reconciled. Review of patient's allergies indicates: No Known Allergies OBJECTIVE: BP 132/84 | Pulse 82 | Temp 36.6 C (97.9 F) (Temporal Artery) | Resp 20 | Ht 1.803 m (5' 11") |Wt 113.7 kg (250 lb 9.6 oz) | SpO2 98% | BMI 34.95 kg/m | BSA 2.39 m REVIEW OF SYSTEMS: PHYSICAL EXAM: BP 132/84 | Pulse 82 | Temp 36.6 C (97.9 F) (Temporal Artery) | Resp 20 | Ht 1.803 m (5' 11") |Wt 113.7 kg (250 lb 9.6 oz) | SpO2 98% | BMI 34.95 kg/m | BSA 2.39 m Physical Exam Vitals and nursing note reviewed. Constitutional: General: He is not in acute distress. Appearance: Normal appearance. He is well-developed. He is ill-appearing. He is not diaphoretic. HENT: Head: Normocephalic and atraumatic. Right Ear: External ear normal. Left Ear: External ear normal. Eyes: General: No scleral icterus. Right eye: No discharge. Left eye: No discharge. Neck: Thyroid: No thyromegaly. Cardiovascular: Rate and Rhythm: Normal rate and regular rhythm. Heart sounds: Normal heart sounds. No murmur heard. Pulmonary: Effort: Pulmonary effort is normal. No respiratory distress. Breath sounds: Normal breath sounds. No wheezing, rhonchi or rales. Abdominal: General: Bowel sounds are normal. Palpations: Abdomen is soft. Musculoskeletal: Cervical back: Neck supple. Right lower leg: No edema. Left lower leg: No edema. Skin: General: Skin is warm and dry. Coloration: Skin is pale. Neurological: General: No focal deficit present. Mental Status: He is alert and oriented to person, place, and time. Gait: Gait normal. Psychiatric: Mood and Affect: Mood normal. Behavior: Behavior normal. Behavior is cooperative. Thought Content: Thought content normal. Judgment: Judgment normal. 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 I spent a total of 40-54 minutes (exact time 40 mins) minutes on the date of service in preparation, delivery, and documentation of the care provided to Farhad Franco excluding any time spent in performance of separately billed services. Kayla Reeder DO documented in this encounter Nursing Notes * Jeannette Selby LPN - 07/20/2023 1:31 PM EDT Chief Complaint Patient presents with Hospital Follow-Up Pt home from [place], starting to eat a little bit, as his appetite allows. Doing Boost, one daily. documented in this encounter Plan of Treatment Upcoming Encounters Date Type Department Care Team (Late st Contact Info) Description 07/22/2023 9:00 AM EDT Office Visit Palliative Medicine [facility] [address] [place] [address] Aury Silva MD [address] [place] [address] [place] [address] 07/22/2023 2:00 PM EDT Appointment Radiology, [address] [place] [address] 07/27/2023 8:00 AM EDT Laboratory Laboratory, [address] [phone] [facility], Lab [address] [place] [address] 07/27/2023 9:00 AM EDT Office Visit Hematology/Oncology, [address] [address] Mike Chaudhary MD [address] [place] [address] 08/12/2023 2:00 PM EDT Appointment Radiology, [place] [address] [place] [phone] 08/26/2023 1:00 PM EDT Office Visit Sleep Disorders, [address] [address] Dave Daigle PA-C [address] [place] [address] 09/25/2023 2:40 PM EDT Office Visit Rheumatology [address] [place] [address] Oliver Zhang MD [address] [place] [address], [place] [address] 02/19/2024 12:00 PM EST Office Visit Family Practice [address], [place] [address] [place] [address] Kayla Reeder DO [address] [place] [address] Health Maintenance Due Date Last Done Comments COVID-19 Vaccine (#1) 1993 Influenza Vaccine (FLU shot) (Season Ended) 2023 11/17/2016, 11/17/2016, 11/30/2015, Additional history exists Depression Screening 07/07/2024 07/08/2023, 06/11/19 24 Albumin/Creatinine Ratio Discontinued 08/02/2021 documented as of this encounter Medical Devices Implanted Type Area Welder Shielded Metal Arc Device Identifier Shelf Expiration Date Model / Serial / Lot Mediport Pwr Mri 8fr [id number] - [id number] Implanted:Qty : 1 on 07/17/2023 by Medhat Angel MD at OR [facility] Right: Chest CR BARD : PERIPHERAL VASCULAR 07/16/2024 [id number] / / [id number] Port Implant W8f Poly Cath - [id number] Implanted:Qty : 1 on 07/17/2023 by Medhat Angel MD at OR [facility] CR BARD : PERIPHERAL VASCULAR [id number] 07/16/2024 [id number] / / [id number] documented as of this encounter Visit Diagnoses Diagnosis Hospital discharge follow-up- Primary Other follow-up examination 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) Burkitt's tumor or lymphoma of intra-abdominal lymph nodes 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) Other malignant lymphomas of intra-abdominal lymph nodes Chemotherapy-induced neutropenia (HCC) Drug induced neutropenia Immunodeficiency (HCC) Unspecified immunity deficiency Pancytopenia (HCC) Other pancytopenia History of immunosuppression therapy Personal history of immunosuppressive therapy documented in this encounter Advance Directives * [...] Agent [facility] p Communication Trixie Le [facility] Repr esentative (appointed verbally by patient or by statute hierarchy) [email or web address] Care Teams Environmental Resource Specialist Relationship Specialty Start Date End Date Kayla Reeder DO [address] [facility] [place] [address] PCP - General Family Medicine 06/11/23 documented as of this encounter
--- OUTSIDE RECORDS SUMMARY | 2023-09-18 21:32 | External Medical Summary | Summary of Care ---
Author Name Unknown Organization [facility] Address [address] [place] [address] Phone [phone] Care Team Providers Care Primary Counselor Name Role Phone Kayla Reeder DO Primary Care Provider +1- [phone] Reason for Visit * Reason Onset Date Comments Other 07/15/2023 Med RX issues an d questioning Neupogen Inj Encounter Details Date Type Department Care Team (Late st Contact Info) Description 07/15/2023 Telephone Hematology Oncology [facility] [address] [place] [address] Mike Chaudhary MD [address] [place] [address] Other (Med RX issues and [...] 07/05/2021 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 Overview: Follows in [place] q6m History of petit-mal seizures 03/07/2016 Tobacco [...] Encounter - Shannon Kendall RN - 07/17/2023 9:48 AM EDT Lakeshia Stone CRNP You2 minutes ago (9:44 AM) We had discussed tablets during the office visit but I did find and order the packet with potassiumcrystals that should be easier to take as he has some difficulty with pills StoneLakeshia fuentes CRNP You5 minutes ago (9:41 AM) I sent potassium chloride 20 mEq to be taken once daily for 7 days to his pharmacy. Order is in. Pharmacy should be in touch when it is available. * Telephone Encounter - Shannon Kendall RN [...] that they still need to go to [place] for the Methotrexate and also that I cannot order the Compazine due to his history of seizures - it lowers his seizure threshold and increases the likelihood that he mayhave one. They may have been able to give it [place] because he was monitored and in the hospital. * Telephone Encounter - Shannon Kendall RN - 07/15/2023 11:46 AM EDT Spoke with the patient and his family. Hao Schulte was called into the [facility] since they are the only local [...] It appears there is an appointment in [place] radiology on 07/21 for the fluoro room [...] 1:40 PM EDT Office Visit Family Practice [facility] [address] [place] [address] Kayla Reeder DO [address] [place] [address] 07/22/2023 9:00 AM EDT Office Visit Palliative Medicine [facility] [address] [place] [phone] Aury Silva MD [address] [place] [address] [place] [address] 07/22/2023 2:00 PM EDT Appointment Radiology, [address] [address] 07/27/2023 8:00 AM EDT Laboratory Laboratory, [address] [place] [address] Gl, Lab [address] [place] [address] 07/27/2023 9:00 AM EDT Office Visit Hematology/Oncology, [facility] [address] [place] [address] Mike Chaudhary MD [address] [place] [address] 08/12/2023 2:00 PM EDT Appointment Radiology, [address] [phone] 08/26/2023 1:00 PM EDT Office Visit Sleep Disorders, [address] [address] Dave Daigle PA-C [address] [place] [address] 09/25/2023 2:40 PM EDT Office Visit Rheumatology [address] [address] Oliver Zhang MD [address] [place] [address], [place] [address] Scheduled Procedures Name Priority Associated Diagnoses Date/Ti [...] Agents on File Name Relationship Healthcare Agent [facility] p Communication Trixie Le [facility] Repr esentative (appointed verbally by patient or by statute hierarchy) [email or web address] Care Teams Primary Counselor Relationship Specialty Start Date End Date Kayla Reeder DO [address] [facility] [place] [address] PCP - General Family Medicine 06/11/23 documented as of this encounter
--- OUTSIDE RECORDS SUMMARY | 2023-09-18 21:32 | External Medical Summary | Summary of Care ---
Author Name Unknown Organization [facility] Address [address] [place] [address] Phone [phone] Care Team Providers Care Picture Hanger Name Role Phone VarinderBryanKaylaparth Clarke DO Primary Care Provider +1- [phone] Reason for Visit * Reason Onset Date Comments Appointment 07/21/2023 Encounter Details Date Type Department Care Team ([facility] st Contact Info) Description 07/21/2023 Telephone Hematology/Oncology Treatment, [facility] [address] [place] [address] Mike Chaudhary MD [address] [place] [address] Appointment Allergies No known active [...] Telephone Encounter - Shannon Kendall RN - 07/21/2023 10:49 AM EDT Called farhad - went to [facility]. Called Trixie - patient's mother. Updated her that Farhad needs labs on 07/23 at 0900 with an appointment with Lakeshia on 999 the same day to release the pump for Thursday. Appointment on Thursday stays the same with Dr. Chaudhary with treatment to follow. Verbalized understanding and aware to call at any point should she have any questions. documented in this encounter Plan of Treatment Upcoming Encounters Date Type Department Care Team (Late st Contact Info) Description 07/22/2023 9:00 AM EDT Office Visit Palliative Medicine [facility] [address] [place] [address] Aury Silva MD [address] [place] [address] 07/22/2023 2:00 PM EDT Hospital Encounter Radiology, [address] [address] 07/24/2023 9:10 AM EDT Laboratory Laboratory, [address] [phone] [facility], Lab [address] [place] [address] 07/24/2023 10:00 AM EDT Office Visit Hematology/Oncology, [address] [address] Lakeshia Stone CRNP [address] [place] [address] 07/27/2023 8:00 AM EDT Laboratory Laboratory, [address] [phone] [facility], Lab [address] [place] [address] 07/27/2023 9:00 AM EDT Office Visit Hematology/Oncology, [address] [address] Mike Chaudhary MD [address] [place] [address] 07/27/2023 10:00 AM EDT Hem/Onc Treatment Hematology/Oncology Treatment, [address] [address] Gl, Chair2 Hem Onc [address] [place] [address] 08/12/2023 2:00 PM EDT Appointment Radiology, [place] [address] [place] [phone] 08/26/2023 1:00 PM EDT Office Visit Sleep Disorders, [address] [address] Dave Daigle PA-C [address] [place] [address] 09/25/2023 2:40 PM EDT Office Visit Rheumatology [address] [place] [address] Oliver Zhang MD [address] [place] [address] 02/19/2024 12:00 PM EST Office Visit Family Practice [address], [place] [address] [place] [address] Kayla Reeder DO [address] [place] [address] Health Maintenance Due Date Last Done Comments COVID-19 Vaccine (#1) 1993 Influenza Vaccine (FLU shot) (Season Ended) 2023 11/17/2016, 11/17/2016, 11/30/2015, Additional history exists Depression Screening 07/07/2024 07/08/2023, 06/11/19 Albumin/Creatinine Ratio Discontinued 08/02/2021 documented as of this encounter Medical Devices Implanted Type Area Senior Systems Software Engineer Device Identifier Shelf Expiration Date Model / Serial / Lot Mediport Pwr Mri 8fr [id number] - [id number] Implanted:Qty : 1 on 07/17/2023 by Medhat Angel MD at OR [facility] Right: Chest CR BARD : PERIPHERAL VASCULAR 07/16/2024 [id number] / / [id number] Port Implant W8f Poly Cath - [id number] Implanted:Qty : 1 on 07/17/2023 by Medhat Angel MD at OR [facility] CR BARD : PERIPHERAL VASCULAR [id number] 07/16/2024 [id number] / / [id number] documented as of this encounter Advance Directives [...] Agents on File Name Relationship Healthcare Agent [facility] p Communication Trixie Le [facility] Care Repr esentative (appointed verbally by patient or by statute hierarchy) [email or web address] Care Teams Picture Hanger Relationship Specialty Start Date End Date Kayla Reeder DO [address] [facility] [place] [address] PCP - General Family Medicine 06/11/23 documented as of this encounter
--- OUTSIDE RECORDS SUMMARY | 2023-09-18 21:32 | External Medical Summary | Summary of Care ---
Author Name Unknown Organization [facility] Address [address] [place] [address] Phone [phone] Care Team Providers Care Motorized Squad Sergeant Name Role Phone Kayla Reeder DO Primary Care Provider +1- [phone] Reason for Referral * Evaluate & Treat - Unlimited Visits (Within 10 days (routine)) - Authorized Specialty Diagnoses / Procedures Referred By Kala villaseñor Referred To Contact Rheumatology Diagnoses Cerebral vasculitis Lakeshia Stone CRNP [address] [place] [address] Oliver Zhang MD [facility] [place] [address] Referral ID Status Reason Start Date Expiration Date Visits Requested Visits Authorized [id number] Authorized Specialty Services Required 07/15/2023 999 999 Question Answer Referral Priority Within 10 days (routine) Where should this appointment be scheduled? [facility] Reason for referral: Other Conditions - cerebral vasculitis Comments Had been following with [facility] for cerebral vasculitis but want to transfer care to [facility], family requesting Dr. Moreau Reason for Visit * Reason Comments Follow Up Encounter Details Date Type Department Care Team ([facility] st Contact Info) Description 07/15/2023 12:30 PM EDT Office Visit Hematology/Oncology, [facility] [address] [place] [address] Lakeshia Stone CRNP [address] [place] [address] Chemotherapy induced nausea and vomiting*; Cerebral vasculitis; Hypokalemia; Burkitt lymphoma of intra-abdominal lymph nodes (HCC); Hospital discharge follow-up; Encounter to discuss test results Allergies No [...] Additional Information Patient not taking.Reported on 07/17/2023 Fluticasone-Salme terol 250-50 MCG/ACT Inhalation Aerosol Powder Breath Activated (Advair Diskus)Indication s:Chronic cough INHALE ONE PUFF BY MOUTH EVERY MORNING AND ONE PUFF BEFORE BEDTIME 60 Each 5 06/11/2023 Active Buprenorphine HCl 2 MG Sublingual Tablet Sublingual (Subutex) Place one-half tablet under the tongue in the morning and one-half tablet in the evening. Do all this for 21 days. 21 Tablet 07/07/2023 Active HYDROmorphone HCl 2 MG Oral Tablet [...] Additional Information Patient not taking.Reported on 07/17/2023 Sennosides-Docusa te Sodium 8.6-50 MG Oral Tablet [...] mouth in the morning. 30 Tablet 07/15/2023 Active Magic Swizzle (Lidocaine-Benadr yl-Maalox) oral solution Swish and spit 15 mL 4 times a day as needed for Sore throat (oral pain). 900 mL 07/14/2023 Active Prochlorperazine Maleate 5 MG Oral Tablet (Compazine)Indica tions:Chemotherap y induced nausea and vomiting Take 1 Tablet by mouth every 8 hours as needed for Nausea. 30 Tablet 07/15/2023 Active Potassium Chloride 20 MEQ Oral PacketIndications :Hypokalemia Take 20 mEq by mouth in the morning for 7 days. 7 Packet 07/17/2023 Active Amoxicillin-Pot Clavulanate 875-125 MG Oral Tablet (Augmentin) Take 1 Tablet by mouth in the morning and 1 Tablet before bedtime. Do all this for 9 days. 18 Tablet 07/07/2023 Prochlorperazine Maleate 10 MG Oral Tablet (Compazine)Indica tions:Chemotherap y induced nausea and vomiting Take 1 Tablet by mouth every 6 hours as needed for Nausea or Vomiting. 30 Tablet 07/15/2023 4 Discontinued (Patient preference/d iscontinuati on) documented as of this encounter (statuses as [...] combined type 12/18/2014 03/07/2016 RIGHT OTITIS EXTERNA 08/14/200912/07/ 013 CEREBRAL VASCULITIS AGE 6 08/14/2009 PETITE [...] Sign Reading Time Taken Comments Blood Pressure 117/87 07/15/2023 11:48 AM EDT Pulse 94 07/15/2023 11:48 AM EDT Temperature 37 C (98.6 F) 07/15/2023 11: 48 AM EDT Respiratory Rate - - Oxygen Saturation 100% 07/15/2023 11: 48 AM EDT Inhaled Oxygen Concentration - - Weight 113.4 kg (249 lb 14.4 oz) 2023 11:48 AM EDT Height - - Body Mass Index 34.85 07/12/2023 10:24 PM EDT documented in this encounter Functional [...] Progress Notes * Lakeshia Stone CRNP - 07/15/2023 12:22 PM EDT Hematology/Oncology Outpatient Clinic note [facility] Hematology/Oncology, [address] [address] Name: Farhad Franco Date: 07/15/2023 CHIEF COMPLAINT: Farhad Franco is a 32 year old male patient of Dr. Mike Chaudhary here today for f/u visit today. From Patient chart confirmed with patient. From Dr. Elvis Villalobos note 07/14/2023. 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 CURRENT TREATMENT*: R- EPOCH x1 on 07/02/2023 - 07/06/2023 with G-CSF on 07/09/2023 Completed [place] [facility] DA-R-EPOCH every 21 days with G-CSF support Outpatient plan to start 07/28/2023 Intrathecal Methotrexate Day 1 and Day 5 (21 day cycle) Fist treatment 07/02/2023 while inpatient [place] [facility] *plan still being finalized Supportive Medications: Prophylaxis: Acyclovir 400 mg twice daily, Fluconazole 400 mg daily, bactrim. Allopurinol 300 mg daily. Needs Levofloxacin once ANC <500 ONCOLOGY HISTORY: [...] 6 mg was given on 07/09/2023 at [facility]. Headache is less severe. Patient denies nausea [...] see a AP in clinic on 07/14. HISTORY OF PRESENT ILLNESS: Farhad Franco is a 32 year old male with a history as outlined above. Currently here for f/u visit today, accompanied by his mother and father. He was recently admitted and transferred to [facility] [place]/2023 - 07/07/2023 during which biopsy results demonstrated aggressive CD10+ B cell lymphoma, with FISH showing MYC+, confirming Burkitt's Lymphoma. CSF was negative for lymphoma. He started treatment inpatient with R-EPOCH and IT Methotrexate. 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 Overall he feels that he did well while in the hospital. Since dischargehe has been experiencing chills, hot flashes, nausea, vomiting, and headaches accompanied by light sensitivity and dizziness. When he experiences the hot flashes he states he also feels SOB and like his chest is tight. His mom gave him 8 mg of zofran once to try and help his nausea because 4 mg wasnot working - do not believe the doubled dose helped either, his mother shares that the only thing that worked in the hospital was Compazine - which he received IV while inpatient at [facility]. Appetite has been very poor, mostly snacking. Drinks maybe three bottles of Gatorade a day, unsure of how many ounces they are. Has been experiencing a lot of difficulty swallowing pills, takes them one at a time and spaces them out throughout the entire day. He threw up his pills once and vomited after eatinga yogurt. Has not been been able to [...] satiety, bloating, constipation, hematuria, melena, and hematochezia. Past Medical History: Diagnosis Date Adjustment disorder with depressed mood 08/14/2009 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 Follows in [place] q6m Cerebrovascular accident (CVA) (HCC) Gastroesophageal reflux disease with esophagitis 12/18/2014 History of petit-mal seizures 03/07/2016 Migraine with aura and without status migrainosus, not intractable 12/18/2014 Tobacco use disorder 01/01/2016 Past Surgical History: Procedure Laterality Date COLONOSCOPY, DIAGNOSTIC (RECTUM) 02/05/2022 normal bx / COLONOSCOPY FLEXIBLE PROXIMAL DIAGNOSTIC performed by Laurence Dent MD at ENDOSCOPY [facility] EGD, FLEXIBLE, DIAGNOSTIC 02/05/2022 normal bx / ESOPHAGOGASTRODUODENOSCOPY (EGD), FLEXIBLE, TRANSORAL, DIAGNOSTIC performed by Laurence Dent MD at ENDOSCOPY [facility] INFORMATION Arteriograms. IR BIOPSY 06/22/2023 [place] ANESTH,OPEN HEAD SURGERY Social History Socioeconomic History [...] date: 05/17/2014 Quit date: 07/17/2021 Years since quittin.9 Passive exposure: Past Smokeless tobacco: Never Tobacco [...] mouth in the morning. 60 Tablet 1 Acyclovir 400 MG Oral Tablet (Zovirax) Take 1 Tablet by mouth in the morning and 1 Tablet before bedtime. 60 Tablet 2 Sennosides-Docusate Sodium 8.6-50 MG Oral Tablet (Senokot-S) Take 2 Tablets by mouth in the morningand 2 Tablets in the evening. 60 Tablet 1 Amoxicillin-Pot Clavulanate 875-125 MG Oral Tablet (Augmentin) Take 1 Tablet by mouth in the morning and 1 Tablet before bedtime. Do all this for 9 days. 18 Tablet 0 Allopurinol 300 MG Oral Tablet (Zyloprim) Take 1 Tablet by mouth daily in the morning. 30 Tablet 1 Naloxone HCl 4 MG/0.1ML Nasal Liquid (Narcan Nasal) Administer 1 nasal spray device into one nostril as needed for suspected opioid overdose. Seek medical help immediately. If no response after 2-3 minutes, administer second nasal spray device in other nostril. (Patient not taking: Reported on 07/13/2023) 2 Each 3 Ondansetron HCl 4 MG Oral Tablet Take 1 Tablet by mouth every 6 hours as needed for Nausea. 30 Tablet 0 levoFLOXacin 750 MG Oral Tablet (Levaquin) Take 1 Tablet by mouth in the morning. 30 Tablet 0 Magic Swizzle (Drkdgkpor-Yvjloxdq-Iacvdh) oral solution Swish and spit 15 mL 4 times a day as needed for Sore throat (oral pain). 900 mL 0 No current facility-administered medications for this visit. REVIEW OF SYSTEMS: See HPI - otherwise negative OBJECTIVE: Filed Vitals: 07/15/23 1148 BP: 117/87 Pulse: 94 Temp: 37 C (98.6 F) TempSrc: Oral SpO2: 100% Weight: 113.4 kg (249 lb 14.4 oz) Wt Readings from Last 5 Encounters: 07/15/23 113.4 kg (249 lb 14.4 oz) 07/12/23 122.5 kg (270 lb) 07/07/23 122.6 kg (270 lb 4.8 oz) 06/20/23 118.8 kg (262 lb) 06/11/23 124.5 kg (274 lb 6.4 oz) PHYSICAL EXAM: ECOG: Performance Status 1 [...] orders placed or performed in visit on 07/15/23 COMPREHENSIVE METABOLIC PANEL Result Value Ref Range BUN 9 6 - 20 mg/dL Creatinine 1.0 0.6 - 1.2 mg/dL Estimated Glomerular Filtration Rate >90 >=60 mL/min Sodium 138 135 - 146 mmol/L Potassium 3.3 (L) 3.5 - 5.1 mmol/L Chloride 103 98 - 107 mmol/L CO2 23 22 - 32 mmol/L Anion Gap 12 7 - 15 mmol/L Glucose 150 (H) 70 - 120 mg/dL Albumin 4.4 3.8 - 5.0 g/dL AST 26 10 - 50 U/L Alkaline Phosphatase 126 35 - 130 U/L Bilirubin, Total 0.2 <=1.2 mg/dL Calcium 9.8 8.4 - 10.2 mg/dL Protein 7.6 6.0 - 8.3 g/dL ALT 36 10 - 50 U/L URIC ACID Result Value Ref Range Uric Acid 4.5 3.4 - 7.0 mg/dL LD Result Value Ref Range LD 362 (H) <=250 U/L CBC Result Value Ref Range WBC 5.20 4.00 - 10.80 K/uL RBC 3.75 4.50 - 5.25 M/uL HGB 11.3 (L) 14.0 - 16.8 g/dL HCT 31.9 (L) 40.0 - 48.4 % MCV 85.1 82.0 - 99.5 fL MCH 30.1 27.0 - 34.0 pg MCHC 35.4 32.0 - 36.0 g/dL RDW 12.7 11.5 - 15.5 % PLT 107 (L) 140 - 400 K/uL MPV 11.5 6.6 - 11.1 fL nRBCs 2 (H) <=0 /100 WBCs IMAGING: MRI BRAIN W WO CONTRAST Result Date: 07/13/2023 IMPRESSION: No acute intracranial abnormality nor suspicious lesion. 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 CTA HEAD/CTA NECK Result [...] nodes Chemotherapy-induced pancytopenia Nausea and vomiting Hypokalemia Hospital discharge follow-up Encounter to discuss test results Reviewed results of CBC/diff, CMP, LDH, and Uric Acid with the patient and his parents today ANC 0.58 --> 1.92 Hgb 10.3 --> 11.3 PLT 71 --> 107 Fusion Analyst 1.0 GFR >90 Na 138 --> 138 K 3.9 --> 3.7 --> 3.3 AST 26 ALT 36 Uric Acid 3.8 --> 4.5 LDH 204 --> 362 Reviewed medication list in its entirety, patient has all supportive medications at home Start Potassium Chloride 20 mEq once daily for 7 days for hypokalemia Ordered crystal packets instead of tablet due to trouble swallowing pills Ordered Compazine 5 mg PO BID as needed for nausea and vomiting Lower dose ordered due to history of seizures, discussed with Dr. 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 Chaudhary, with CBC/diff, CMP, Uric Acid and LDH NIK Neville documented in this encounter Nursing Notes * Brayan Dempsey MED ASSIST - 07/15/2023 11:52 AM EDT Chief Complaint Patient presents with Follow Up Provider aware of VS. BP 117/87 | Pulse 94 | Temp 37 C (98.6 F) (Oral) | Wt 113.4 kg (249 lb 14.4 oz) | SpO2 100% | BMI 34.85 kg/m | BSA 2.38 m Patient was instructed to not get [...] 1:40 PM EDT Office Visit Family Practice [address], [place] [address] [place] [address] Kayla Reeder DO [address] [place] [address] 07/22/2023 9:00 AM EDT Office Visit Palliative Medicine [facility] [address] [place] [address] Aury Silva MD [address] [place] [address] [phone] 07/22/2023 2:00 PM EDT Appointment Radiology, [address] [address] 07/27/2023 8:00 AM EDT Laboratory Laboratory, [address] [phone] [facility], Lab [address] [place] [address] 07/27/2023 9:00 AM EDT Office Visit Hematology/Oncology, [address] [address] Mike Chaudhary MD [address] [place] [address] [phone] 08/12/2023 2:00 PM EDT Appointment Radiology, [address] [address] 08/26/2023 1:00 PM EDT Office Visit Sleep Disorders, [address] [id number] Dave Daigle PA-C [address] [place] [address] [phone] 09/25/2023 2:40 PM EDT Office Visit Rheumatology [facility] [address] [facility] [place] [address] Oliver Zhang MD [address] [email or web address] [address] Scheduled Procedures Name Priority Associated Diagnoses Date/Ti me INSERT TUNNELED CENTRAL VENOUS ACCESS WITH SUBQ PORT B-cell lymphoma of intra-abdominal lymph nodes, unspecified B-cell lymphoma type (HCC) 07/17/2023 12:57 PM EDT Scheduled Referrals Name Type Priority Associated Diagnoses Order Schedule RHEUMATOLOGY REFERRAL OP Referral Within 10 days (routine) Cerebral vasculitis Ordered: 07/15/2023 Health Maintenance Due Date Last Done Comments COVID-19 Vaccine (#1) 1993 Influenza Vaccine (FLU shot) (Season Ended) 2023 11/17/2016, 11/17/2016, 11/30/2015, Additional history exists Depression Screening 07/07/2024 07/08/2023, 06/11/19 24 Albumin/Creatinine Ratio Discontinued 08/02/2021 documented as of this encounter Medical Devices Implanted Type Area Gaming Dealer Device Identifier Shelf Expiration Date Model / Serial / Lot Mediport Pwr Mri 8fr [id number] - [id number] Implanted:Qty : 1 on 07/17/2023 by Medhat Angel MD at OR [facility] Right: Chest CR BARD : PERIPHERAL VASCULAR 07/16/2024 [id number] / / [id number] Port Implant W8f Poly Cath - [id number] Implanted:Qty : 1 on 07/17/2023 by Medhat Angel MD at OR [facility] CR BARD : PERIPHERAL VASCULAR [id number] 07/16/2024 [id number] / / [id number] documented as of this encounter Visit Diagnoses Diagnosis Chemotherapy induced nausea and vomiting- Primary Nausea with vomiting Cerebral vasculitis Giant cell arteritis Hypokalemia Hypopotassemia Burkitt lymphoma of intra-abdominal lymph nodes (HCC) Burkitt's tumor or lymphoma of intra-abdominal lymph nodes Hospital discharge follow-up Other follow-up examination Encounter to discuss test results Other specified [...] Name Relationship Healthcare Agent [facility] Communication Trixie Le [facility] Repr esentative (appointed verbally by patient or by statute hierarchy) [email or web address] Care Teams Motorized Squad Sergeant Relationship Specialty Start Date End Date Kayla Reeder DO [address] [facility] [place] [address] PCP - General Family Medicine 06/11/23 documented as of this encounter
--- OUTSIDE RECORDS SUMMARY | 2023-09-18 21:32 | External Medical Summary | Summary of Care ---
Author Name Unknown Organization [facility] Address [address] [place] [address] Phone [phone] Care Team Providers Care Log Chipper Operator Name Role Phone Kayla Reeder DO Primary Care Provider +1- [phone] Reason for Visit * Reason Onset Date Comments Other 07/15/2023 Med RX issues an d questioning Neupogen Inj Encounter Details Date Type Department Care Team (Late st Contact Info) Description 07/15/2023 Telephone Hematology Oncology [facility] [address] [place] [address] Mike Chaudhary MD [address] [place] [address] Other (Med RX issues and [...] patient made aware of the below message. [place] - Mother stating the seizures have not [...] that they still need to go to [place] for the Methotrexate and also that I cannot order the Compazine due to his history of seizures - it lowers his seizure threshold and increases the likelihood that he mayhave one. They may have been able to give it [place] because he was monitored and in the hospital. * Telephone Encounter - Shannon Kendall RN - 07/15/2023 11:46 AM EDT Spoke with the patient and his family. Hao Schulte was called into the [facility] since they are the only local [...] It appears there is an appointment in [place] radiology on 07/21 for the fluoro room [...] 07/17/2023 1:06 PM EDT Hospital Encounter OR GL, Operating Room, [facility] - 4th Floor [address] [place] [place] [address] Medhat Angel MD [address] [place] [address] 07/17/2023 1:06 PM EDT - 07/17/2023 2:05 PM EDT Surgery OR [facility], Operating Room, [facility] - 4th Floor [address] [place] [address] Medhat Angel MD [address] [place] [address] INSERT TUNNELED CENTRAL VENOUS ACCESS WITH SUBQ PORT 07/20/2023 1:40 PM EDT Office Visit [facility] [place] [address] [place] [address] Kayla Reeder DO [address] [facility] [place] [address] 07/22/2023 9:00 AM EDT Office Visit Palliative Medicine [facility] [address] [place] [address] Aury Silva MD [address] [place] [address] 07/22/2023 2:00 PM EDT Appointment Radiology, [address] [address] 07/27/2023 8:00 AM EDT Laboratory Laboratory, [address] [phone] [facility], Lab [address] [place] [address] 07/27/2023 9:00 AM EDT Office Visit Hematology/Oncolog y, [address] [address] Mike Chaudhary MD [address] [place] [address] 08/12/2023 2:00 PM EDT Appointment Radiology, [address] [place] [address] 08/26/2023 1:00 PM EDT Office Visit Sleep Disorders, [facility] [address] [facility] [place] [address] Dave Daigle PA-C [address] [place] [address] Scheduled Procedures Name Priority Associated [...] Healthcare Agent Relationshi p Communication Trixie Le [facility] Care Repr esentative (appointed verbally by patient or by statute hierarchy) [email or web address] Care Teams Log Chipper Operator Relationship Specialty Start Date End Date Kayla Reeder DO [address] [facility] [place] [address] PCP - General Family Medicine 06/11/23 documented as of this encounter
--- OUTSIDE RECORDS SUMMARY | 2023-09-18 21:32 | External Medical Summary | Summary of Care ---
Author Name Unknown Organization [facility] Address [address] [place] [address] Phone [phone] Care Team Providers Care Aviation Ordnance Officer Name Role Phone Kayla Reeder DO Primary Care Provider +1- [phone] Reason for Visit * Reason Onset Date Comments Other 07/15/2023 Med RX issues an d questioning Neupogen Inj Encounter Details Date Type Department Care Team (Late st Contact Info) Description 07/15/[address] [facility] [address] [place] [address] Mike Chaudhary MD [address] [place] [address] Other (Med RX issues and [...] have never been told this before. Dr. Chauhdary - Paulo double checked with Vanessa. There [...] that they still need to go to [place] for the Methotrexate and also that I cannot order the Compazine due to his history of seizures - it lowers his seizure threshold and increases the likelihood that he mayhave one. They may have been able to give it [place] because he was monitored and in the hospital. * Telephone Encounter - Shannon Kendall RN - 07/15/2023 11:46 AM EDT Spoke with the patient and his family. Hao Schulte was called into the [facility] since they are the only local [...] It appears there is an appointment in [place] radiology on 07/21 for the fluoro room [...] EDT Hospital Encounter OR GL, Operating Room, [facility] - 4th Floor [address] [place] [place] [address] Medhat Angel MD [address] [place] [place] [address] 07/17/2023 1:06 PM EDT - 07/17/2023 2:05 PM EDT Surgery OR [facility], Operating Room, [facility] - 4th Floor [address] [place] [address] Medhat Angel MD [address] [place] [address] INSERT TUNNELED CENTRAL VENOUS ACCESS WITH SUBQ PORT 07/20/2023 1:40 PM EDT Office Visit [facility] [place] [address] [place] [address] Kayla Reeder DO [address] [facility] [place] [address] 07/22/2023 9:00 AM EDT Office Visit Palliative Medicine [facility] [address] [place] [address] Aury Silva MD [address] [place] [address] 07/22/2023 2:00 PM EDT Appointment Radiology, [address] [address] 07/27/2023 8:00 AM EDT Laboratory Laboratory, [address] [phone] [facility], Lab [address] [place] [address] 07/27/2023 9:00 AM EDT Office Visit Hematology/Oncolog y, [address] [address] Mike Chaudhary MD [address] [place] [address] 08/12/2023 2:00 PM EDT Appointment Radiology, [address] [place] [address] 08/26/2023 1:00 PM EDT Office Visit Sleep Disorders, [facility] [address] [facility] [place] [address] Dave Daigle PA-C [address] [place] [address] Scheduled Procedures Name Priority Associated [...] Healthcare Agent Relationshi p Communication Trixie Le [facility] Care Repr esentative (appointed verbally by patient or by statute hierarchy) [email or web address] Care Teams Aviation Ordnance Officer Relationship Specialty Start Date End Date Kayla Reeder DO [address] [facility] [place] [address] PCP - General Family Medicine 06/11/23 documented as of this encounter
--- OUTSIDE RECORDS SUMMARY | 2023-09-18 21:32 | External Medical Summary | Summary of Care ---
Author Name Unknown Organization [facility] Address [address] [place] [address] Phone [phone] Care Team Providers Care Precise Winder Name Role Phone Kayla Reeder DO Primary Care Provider +1- [phone] Reason for Visit * Reason Onset Date Comments Other 07/15/2023 Med RX issues an d questioning Neupogen Inj Encounter Details Date Type Department Care Team (Late st Contact Info) Description 07/15/2023 Telephone Hematology Oncology [facility] [address] [place] [address] Mike Chaudhary MD [address] [place] [address] Other (Med RX issues and questioning Neupo... Allergies No known active allergiesdocumented as of this encounter (statuses as of 07/16/2023) Medications Medication Sig Dispensed Refills Start Date [...] as of this encounter (statuses as of 07/16/2023) Active Problems Problem Noted Date Diagnosed Date [...] as of this encounter (statuses as of 07/16/2023) Resolved Problems Problem Noted Date Diagnosed Date [...] as of this encounter (statuses as of 07/16/2023) Immunizations Name Administration Dates Next Due DT [...] that they still need to go to [place] for the Methotrexate and also that I cannot order the Compazine due to his history of seizures - it lowers his seizure threshold and increases the likelihood that he mayhave one. They may have been able to give it [place] because he was monitored and in the hospital. * Telephone Encounter - Shannon Kendall RN - 07/15/2023 11:46 AM EDT Spoke with the patient and his family. Hao Schulte was called into the [place] [facility] since they are the only local [...] It appears there is an appointment in [place] radiology on 07/21 for the fluoro room [...] 07/17/2023 1:06 PM EDT Hospital Encounter OR [facility], Operating Room, [facility] - 4th Floor [address] [place] [address] Medhat Angel MD [address] [place], [place] [address] [address] 07/17/2023 1:06 PM EDT - 07/17/2023 2:05 PM EDT Surgery OR [facility], Operating Room, [facility] - 4th Floor [address] [place] [address] Medhat Angel MD [address] [place], [place] [address]hubert [place]iss[place] [address] INSERT TUNNELED CENTRAL VENOUS ACCESS WITH SUBQ PORT 07/20/2023 1:40 PM EDT Office Visit [facility] Maribell Garcia [address] [place] [address] Kayla Reeder DO [address] [place] [address] 07/22/2023 9:00 AM EDT Office Visit [facility] [address] [place] [address] Aury Silva MD [address] [place] [address] [place] [address] 07/22/2023 2:00 PM EDT Appointment Radiology, [address] [address] 07/27/2023 8:00 AM EDT Laboratory Laboratory, [address] [place] [phone] [facility], Lab [address] [place], [place] [address] [address] 07/27/2023 9:00 AM EDT Office Visit Hematology/Oncolog y, [facility] [address] [place] [address] Mike Chaudhary MD [facility] [address] [place], [place] [id number] 08/12/2023 2:00 PM EDT Appointment Radiology, [address] [address] 08/26/2023 1:00 PM EDT Office Visit Sleep Disorders, [facility] [address] [place] [address] Dave Daigle PA-C [address] [place], [place] [phone] 09/25/2023 2:40 PM EDT Office Visit Rheumatology [place] [address] [employer] [place] [address] Oliver Zhang MD [facility] [address] Scheduled Procedures Name Priority Associated Diagnoses Date/Ti [...] Healthcare Agent Relationshi p Communication Trixie Le [facility] Repr esentative (appointed verbally by patient or by statute hierarchy) [email or web address] Care Teams Precise Winder Relationship Specialty Start Date End Date Kayla Reeder DO [address] [facility] [place] [address] PCP - General Family Medicine 06/11/23 documented as of this encounter
--- OUTSIDE RECORDS SUMMARY | 2023-09-18 21:33 | External Medical Summary ---
Author Name Unknown Address Unknown Organization K1F:[facility] - [address] [place] [address] Laboratory Report Ordering Provider Test Date Status MATTI BARAJAS 07/15/2023 11:13:29 Final Observation Date Value Abnormality Reference (Units ) Status LDH 07/15/2023 11:13:29 362 Above high normal <= 250 (U/L) Final Result may be falsely elevat ed due to hemolysis. Performing Location [facility] - [address] [place] [address]
--- OUTSIDE RECORDS SUMMARY | 2023-09-18 21:33 | External Medical Summary ---
Author Name Unknown Address Unknown Organization K1F:LAB[facility]ORY [facility] - [address] [place] [address] Laboratory Report Ordering Provider Test Date Status KASHIF ALDRIDGE 07/14/2023 04:48:00 Final Observation Date Value Abnormality Reference (Units ) Status WBC, Total 07/14/2023 04:48:00 0.95 Below lower panic limits 4.00-10.80 (K/uL) Final RBC 07/14/2023 04:48:00 3.52 4.50-5.25 (M/uL) Final Hemoglobin 07/14/2023 04:48:00 10.3 Below low normal 14.0-16.8 (g/dL) Final HCT 07/14/2023 04:48:00 30.0 Below low normal 40.0-48.4 (%) Final MCV 07/14/2023 04:48:00 85.2 82.0-99.5 (fL) Final MCH 07/14/2023 04:48:00 29.3 27.0-34.0 (pg) Final MCHC 07/14/2023 04:48:00 34.3 32.0-36.0 (g/dL) Final RDW 07/14/2023 04:48:00 12.5 11.5-15.5 (%) Final Platelets 07/14/2023 04:48:00 71 Below low normal 140-400 (K/uL) Final MPV 07/14/2023 04:48:00 12.1 6.6-11.1 (fL) Final Nucleated erythrocytes/100 leukocytes [Ratio] in Blood by Automated count 07/14/2023 04:48:00 0 <=0 (/100 WBCs) Final Performing Location [facility] - [address] [place] [address]
--- OUTSIDE RECORDS SUMMARY | 2023-09-18 21:33 | External Medical Summary ---
Author Name Unknown Address Unknown Organization K1F:[facility] - [address] [place] [address] Laboratory Report Ordering Provider Test Date Status KASHIF ALDRIDGE 07/13/2023 07:54:00 Final Observation Date Value Abnormality Reference (Units ) Status COMMENT 07/13/2023 07:54:00 WBC < 0.60, WBC differential cancelled. Please call Client Services if differential is required. Final Performing Location [facility] - [address] [place] [address]
--- OUTSIDE RECORDS SUMMARY | 2023-09-18 21:33 | External Medical Summary ---
Author Name Unknown Address Unknown Organization K1F:[facility]ORY [facility] - [address] [place] [address] Laboratory Report Ordering Provider Test Date Status MATTI BARAJAS 07/15/2023 11:13:29 Final Observation Date Value Abnormality Reference (Units ) Status Uric Acid 07/15/2023 11:13:29 4.5 3.4-7.0 (m g/dL) Final Performing Location [facility] - [address] [place] [address]
--- OUTSIDE RECORDS SUMMARY | 2023-09-18 21:33 | External Medical Summary ---
Author Name Unknown Address Unknown Organization K1F:[facility] - [address] [place] [address] Laboratory Report Ordering Provider Test Date Status KASHIF ALDRIDGE 07/13/2023 07:54:00 Final Observation Date Value Abnormality Reference (Units ) Status BUN 07/13/2023 07:54:00 13 6-20 (mg/dL) Final Creatinine 07/13/2023 07:54:00 0.8 0.6-1.2 (mg/dL) Final Glomerular filtration rate/1.73 sq M.predicted [Volume Rate/Area] in Serum, Plasma or Blood by Creatinine-based formula (CKD-EPI) 07/13/2023 07:54:00 >90 >=60 (mL/min) Final eGFR is calculated based on the CKD-EPI 2020 equation Sodium 07/13/2023 07:54:00 138 135-146 (m mol/L) Final Potassium 07/13/2023 07:54:00 3.9 3.5-5.1 (m mol/L) Final Cl 07/13/2023 07:54:00 105 98-107 (mm ol/L) Final CO2 07/13/2023 07:54:00 19 Below low normal 22- 32 (mmol/L) Final Anion gap 07/13/2023 07:54:00 14 7-15 (mmol /L) Final Glucose 07/13/2023 07:54:00 120 70-120 (mg /dL) Final Calcium 07/13/2023 07:54:00 9.1 8.4-10.2 ( mg/dL) Final Performing Location [facility] - [address] [place] [address]
--- OUTSIDE RECORDS SUMMARY | 2023-09-18 21:33 | External Medical Summary ---
Author Name Unknown Address Unknown Organization K1F:LABORATORY [facility] - [address] [facility] [place] [address] Laboratory Report Ordering Provider Test Date Status KASHIF ALDRIDGE 07/14/2023 04:48:00 Final Observation Date Value Abnormality Reference (Units ) Status SYNC LEUKOCYTES IN BLOOD BY AUTOMATED COUNT 07/14/2023 04:48:00 0.95 Below lower panic limits 4.00-10.80 (K/uL) Final Neutrophils/100 leukocytes in Blood by Manual count 07/14/2023 04:48:00 4.0 Below low normal 40.0-75.0 (%) Final Lymphocytes/100 leukocytes in Blood by Manual count 07/14/2023 04:48:00 61.0 Above high normal 18.0-42.0 (%) Final Monocytes/100 leukocytes in Blood by Manual count 07/14/2023 04:48:00 20.0 Above high normal 1.0-11.0 (%) Final Eosinophils/100 leukocytes in Blood by Manual count 07/14/2023 04:48:00 7.0 Above high normal 0.0-6.0 (%) Final Basophils/100 leukocytes in Blood by Manual count 07/14/2023 04:48:00 3.0 Above high normal 0.0-2.0 (%) Final Metamyelocytes/100 leukocytes in Blood by Manual count 07/14/2023 04:48:00 1.0 Above high normal <=0.0 (%) Final Myelocytes/100 leukocytes in Blood by Manual count 07/14/2023 04:48:00 4.0 Above high normal <=0.0 (%) Final Neutrophils [#/volume] in Blood by Manual count 07/14/2023 04:48:00 0.04 Below low normal 1.80-7.70 (K/uL) Final Lymphocytes [#/volume] in Blood by Manual count 07/14/2023 04:48:00 0.58 Below low normal 1.00-4.80 (K/uL) Final Monocytes [#/volume] in Blood by Manual count 07/14/2023 04:48:00 0.19 0.00-1.10 (K/uL) Final Eosinophils [#/volume] in Blood by Manual count 07/14/2023 04:48:00 0.07 0.00-0.70 (K/uL) Final Basophils [#/volume] in Blood by Manual count 07/14/2023 04:48:00 0.03 0.00-0.20 (K/uL) Final Metamyelocytes [#/volume] in Blood by Manual count 07/14/2023 04:48:00 0.01 Above high normal <=0.00 (K/uL) Final Myelocytes [#/volume] in Blood by Manual count 07/14/2023 04:48:00 0.04 Above high normal <=0.00 (K/uL) Final Performing Location LABORATORY [place] [address] [address] [place] [address]
--- OUTSIDE RECORDS SUMMARY | 2023-09-18 21:33 | External Medical Summary | Summary of Care ---
Author Name Unknown Organization [facility] Address [address] [place] [address] Phone [phone] Care Team Providers Care Make Up Worker Name Role Phone Kayla Reeder DO Primary Care Provider +1- [phone] Reason for Visit * Reason Onset Date Comments Hospital Follow-Up 07/15/2023 Encounter Details Date Type Department Care Team ([facility] st Contact Info) Description 07/15/2023 Telephone Hematology/Oncology Treatment, [facility] [address] [place] [address] Mike Chaudhary MD [address] [place] [address] Hospital Follow-Up Allergies No known active allergiesdocumented as of [...] 07/05/2021 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 Dates patient was admitted: 07/12/23 to 07/15/23 with a primary diagnosis of Headache. Currently has no complaints. All current medications reviewed with patient. Patient verbalizes understanding of regimen. Post discharge hospital visit is scheduled and patient is aware. Patient coming to the clinic today for an appointment with NIK Cobb at 1230. Lab before that visit. Will follow up with Dr. Chaudhary on 07/26. documented in this encounter Plan of Treatment Upcoming Encounters Date Type Department Care Team (Latest Contact Info) Description 07/15/2023 11:30 AM EDT Laboratory Laboratory, [address] [place] [address] [facility], Lab [address] [place] [address] 07/15/2023 12:30 PM EDT Office Visit Hematology/Oncolog y, [address] [place] [address] Lakeshia Stone CRNP [address] [place] [address] [place] [address] 07/17/2023 1:06 PM EDT Hospital Encounter OR [facility], Operating Room, [facility] - 4th Floor [address] [place] [address] [place] [address] Medhat Angel MD [address] [place], [place] [address]ER[place] [address] 07/17/2023 1:06 PM EDT - 07/17/2023 2:05 PM EDT Surgery OR [facility], Operating Room, [facility] - 4th Floor [address] [place] [address] [place] [address] Medhat Angel MD [address] [place], [place] [address] [address] INSERT TUNNELED CENTRAL VENOUS ACCESS WITH SUBQ PORT 07/20/2023 1:40 PM EDT Office Visit [facility], [place] [address] [place], [place] [address] Kayla Reeder DO [address] [place] [address] 07/22/2023 9:00 AM EDT Office Visit Palliative Medicine [facility] [address] [place] [address] Aury Silva MD [address] [place] [address] 07/22/2023 2:00 PM EDT Appointment Radiology, [address] [address] 07/27/2023 8:00 AM EDT Laboratory Laboratory, [address] [phone] [facility], Lab [address] [place] [address] 07/27/2023 9:00 AM EDT Office Visit Hematology/Oncolog y, [address] [address] Mike Chaudhary MD [address] [place] [address] 08/12/2023 2:00 PM EDT Appointment Radiology, [address] [phone] 08/26/2023 1:00 PM EDT Office Visit Sleep Disorders, [address] [address] Dave Daigle PA-C [address] [place] [address], [place] [address] Scheduled Procedures Name Priority Associated Diagnoses Date/Ti me INSERT TUNNELED CENTRAL VENOUS ACCESS WITH SUBQ PORT B-cell lymphoma of intra-abdominal lymph nodes, unspecified B-cell lymphoma type (HCC) 07/17/2023 1:06 PM EDT Health Maintenance Due Date Last Done Comments COVID-19 Vaccine (#1) 1993 Hepatitis B (1 of 3 - 19+ 3-dose series) 11/22/2007 Pneumococcal Vaccine: Pediatrics (0 to 5 Years) and At-Risk Patients (6 to 64 Years) (2 of 2 - PCV) 01/23/2018 01/23/2017 Influenza Vaccine (FLU shot) (Season Ended) 2023 11/17/2016, 11/17/2016, 11/30/2015, Additional history exists DTaP,Tdap,and Td Vaccines (7 - Td or Tdap) 10/20/2023 10/19/2013, 10/09/2005, 04/23/1994, Additional history exists Depression Screening 07/07/2024 07/08/2023, 06/11/19 MENINGOCOCCAL (MENACTRA/MENVEO) Completed 04/09/2007 Albumin/Creatinine Ratio Discontinued 08/02/2021 GARDASIL-HPV IMMUNIZATION SERIES Aged Out No longer eligible based on patient's age to complete this topic documented as of this encounter Medical Devices [...] on File Name Relationship Healthcare Agent [facility] p Communication Trixie Le [facility] [place][Note 2] Care Repr esentative (appointed verbally by patient or by statute hierarchy) [email or web address] Care Teams Make Up Worker Relationship Specialty Start Date End Date Kayla Reeder DO [address] [facility] [place] [address] PCP - General Family Medicine 06/11/23 documented as of this encounter
--- OUTSIDE RECORDS SUMMARY | 2023-09-18 21:33 | External Medical Summary ---
Author Name Unknown Address Unknown Organization K1F:[facility] - [address] [place] [address] Laboratory Report Ordering Provider Test Date Status OLYKASHIF 07/14/2023 04:48:00 Final Observation Date Value Abnormality Reference (Units ) Status BUN 07/14/2023 04:48:00 10 6-20 (mg/dL) Final Creatinine 07/14/2023 04:48:00 1.0 0.6-1.2 (mg/dL) Final Glomerular filtration rate/1.73 sq M.predicted [Volume Rate/Area] in Serum, Plasma or Blood by Creatinine-based formula (CKD-EPI) 07/14/2023 04:48:00 >90 >=60 (mL/min) Final eGFR is calculated based on the CKD-EPI 2020 equation Sodium 07/14/2023 04:48:00 138 135-146 (m mol/L) Final Potassium 07/14/2023 04:48:00 3.7 3.5-5.1 (m mol/L) Final Cl 07/14/2023 04:48:00 104 98-107 (mm ol/L) Final CO2 07/14/2023 04:48:00 23 22-32 (mmo l/L) Final Anion gap 07/14/2023 04:48:00 11 7-15 (mmol /L) Final Glucose 07/14/2023 04:48:00 103 70-120 (mg /dL) Final Calcium 07/14/2023 04:48:00 9.3 8.4-10.2 ( mg/dL) Final Performing Location [facility] - [address] [address]
--- OUTSIDE RECORDS SUMMARY | 2023-09-18 21:33 | External Medical Summary ---
Author Name Unknown Address Unknown Organization K1F:LABORATORY [facility] - [address] [place] [address] Laboratory Report Ordering Provider Test Date Status KASHIF ALDRIDGE 07/14/2023 11:47:00 Final Observation Date Value Abnormality Reference (Units ) Status WBC, Total 07/14/2023 11:47:00 0.99 Below lower panic limits 4.00-10.80 (K/uL) Final RBC 07/14/2023 11:47:00 3.63 4.50-5.25 (M/uL) Final Hemoglobin 07/14/2023 11:47:00 10.5 Below low normal 14.0-16.8 (g/dL) Final HCT 07/14/2023 11:47:00 30.4 Below low normal 40.0-48.4 (%) Final MCV 07/14/2023 11:47:00 83.7 82.0-99.5 (fL) Final MCH 07/14/2023 11:47:00 28.9 27.0-34.0 (pg) Final MCHC 07/14/2023 11:47:00 34.5 32.0-36.0 (g/dL) Final RDW 07/14/2023 11:47:00 12.2 11.5-15.5 (%) Final Platelets 07/14/2023 11:47:00 74 Below low normal 140-400 (K/uL) Final MPV 07/14/2023 11:47:00 10.5 6.6-11.1 (fL) Final Nucleated erythrocytes/100 leukocytes [Ratio] in Blood by Automated count 07/14/2023 11:47:00 0 <=0 (/100 WBCs) Final Performing Location [facility] - [address] [address]
--- OUTSIDE RECORDS SUMMARY | 2023-09-18 21:33 | External Medical Summary | Summary of Care ---
Author Name Unknown Organization [facility] Address [address] [place] [address] Phone [phone] Care Team Providers Care Tension Worker Name Role Phone Kayla Reeder DO Primary Care Provider +1- [phone] Reason for Visit * Reason Onset Date Comments Other 07/15/2023 Med RX issues an d questioning Neupogen Inj Encounter Details Date Type Department Care Team (Late st Contact Info) Description 07/15/2023 Telephone Hematology Oncology [facility] [address] [place] [address] Mike Chaudhary MD [address] [place] [address] Other (Med RX issues and [...] Spoke with the patient and his family. Magic Anna Mariezzle was called into the [place] [facility] since they are the only local [...] It appears there is an appointment in [place] radiology on 07/21 for the fluoro room [...] Care Team (Latest Contact Info) Description 07/15/2023 12:30 PM EDT Office Visit Hematology/Oncolog y, [facility] [address] [place] [address] Lakeshia Stone CRNP [address] [facility] [place] [address] Arrived 07/17/2023 1:06 PM EDT Hospital Encounter OR [facility], Operating Room, [facility] - 4th Floor [address] [facility] [address] Medhat Angel MD [address] [place], [place] [address] [place] [address] 07/17/2023 1:06 PM EDT - 07/17/2023 2:05 PM EDT Surgery OR [facility], Operating Room, [facility] - 4th Floor [address] [place] [address] [place] [address] Medhat Angel MD [address] [place], [place] [address] [place] [address] INSERT TUNNELED CENTRAL VENOUS ACCESS WITH SUBQ PORT 07/20/2023 1:40 PM EDT Office Visit Family Practice [facility], [place] [address] [facility] [place] [address] Kayla Reeder DO [address] [facility] [place] [address] 07/22/2023 9:00 AM EDT Office Visit Palliative Medicine [facility] [address] [place] [address] Aury Silva MD [address] [facility] [place] [address] 07/22/2023 2:00 PM EDT Appointment Radiology, [address] [place] [address] 07/27/2023 8:00 AM EDT Laboratory Laboratory, [address] [phone] [facility], Lab [address] [place] [address] 07/27/2023 9:00 AM EDT Office Visit Hematology/Oncolog y, [address] [address] Mike Chaudhary MD [facility] [place] [address] 08/12/2023 2:00 PM EDT Appointment Radiology, [address] [phone] 08/26/2023 1:00 PM EDT Office Visit Sleep Disorders, [address] [address] Dave Daigle PA-C [address] [place] [address] Scheduled Procedures Name Priority Associated Diagnoses Date/Ti [...] Agent [facility] p Communication Trixie Le [facility] Repr esentative (appointed verbally by patient or by statute hierarchy) [email or web address] Care Teams Tension Worker Relationship Specialty Start Date End Date Kayla Reeder DO [address] [facility] [place] [address] PCP - General Family Medicine 06/11/23 documented as of this encounter
--- OUTSIDE RECORDS SUMMARY | 2023-09-18 21:33 | External Medical Summary | Summary of Care ---
Author Name Unknown Organization [facility] Address [address] [place] [address] Phone [phone] Care Team Providers Care Assistant Manager Quality Management Name Role Phone Kayla Reeder DO Primary Care Provider [phone] Reason for Visit * Reason Comments Headache * Auth/Cert Specialty Diagnoses / Procedures Referred By Contac t Referred To Contact [facility] [address] [place] [address] Phone: [phone] Emergency Medicine [address] [address] Referral ID Status Reason Start Date Expiration Date Visits Re quested Visits Authorized [id number] Encounter Details Date Type Department Care Team (Late st Contact Info) Description 07/12/2023 10:27 PM EDT - 07/14/2023 3:38 PM EDT Emergency 5A [facility] 5th Floor [address] [place], [place] [id number] Jaquan Alonso DO [address] [place], [place] [phone] Aster Lacey MD [address] [place] [address] [id number] Yahir Beltran MD [address] [place] [address] Hospitalist Services [place], [place] [phone] Pt Handout (on AVS) Discharge Disposition: Home - Self Care Allergies [...] BEFORE BEDTIME) 180 Tablet 3 02/23/2023 Active hydroCHLOROthiaz chuck 12.5 MG Oral Capsule (Hydrodiuril)Ind ications:History of petit-mal seizures Take 1 Capsule by mouth in the morning. 90 Capsule 1 03/02/2023 Active Loratadine 10 MG Oral Tablet (Claritin)Indica tions:Chronic cough Take 1 Tablet by mouth in the morning. 30 Tablet 11 05/01/2023 Active Celecoxib 200 MG Oral Capsule (CeleBREX)Indica [...] or Cough. 18 g 1 06/09/2023 Active Fluticasone-Salm eterol 250-50 MCG/ACT Inhalation Aerosol [...] or severe pain 100 Tablet 07/07/2023 Active Sulfamethoxazole -Trimethoprim 400-80 MG Oral Tablet [...] before bedtime. 60 Tablet 2 07/07/2023 Active Sennosides-Docus ate Sodium 8.6-50 MG Oral Tablet (Senokot-S) Take 2 Tablets by mouth in the morning and 2 Tablets in the evening. 60 Tablet 1 07/07/2023 Active Amoxicillin-Pot Clavulanate 875-125 MG Oral Tablet (Augmentin) Take 1 Tablet by mouth in the morning and 1 Tablet before bedtime. Do all this for 9 days. 18 Tablet 07/07/2023 Active Allopurinol 300 MG Oral Tablet [...] on 07/13/2023 Ondansetron HCl 4 MG Oral TabletIndication s:Need for case management follow-up,Burkit t lymphoma of intra-abdominal lymph nodes (HCC) Take 1 Tablet by mouth every 6 hours as needed for Nausea. 30 Tablet 07/08/2023 Active levoFLOXacin 750 MG Oral Tablet (Levaquin) Take 1 Tablet by mouth in the morning. 30 Tablet 07/15/2023 Active Magic Swizzle (Lidocaine-Benad ryl-Maalox) oral solution Swish and spit 15 mL 4 times a day as needed for Sore throat (oral pain). 900 mL 07/14/2023 Active Buprenorphine HCl 2 MG Sublingual Tablet Sublingual (Subutex) Place 0.5 (one-half) tablet under the tongue three times a day (morning, noon, before bedtime) for 1 day. 2 Tablet 07/02/2023 Discontinued Ciprofloxacin HCl 500 MG Oral Tablet (Cipro) Take 1 Tablet by mouth in the morning and 1 Tablet before bedtime. 60 Tablet 07/07/2023 4 Discontinued Magic Swizzle (Lidocaine-Benad ryl-Maalox) oral solution Swish and spit 15 mL in the morning and 15 mL before bedtime. 900 mL 07/14/2023 4 Discontinued documented as of this encounter (statuses [...] Sign Reading Time Taken Comments Blood Pressure 108/61 07/14/2023 11:00 AM EDT Pulse 91 07/14/2023 11:00 AM EDT Temperature 35.8 C (96.4 F) 07/14/2023 11:00 AM E DT Respiratory Rate 18 07/14/2023 11:00 AM EDT Oxygen Saturation 98% 07/14/2023 11:00 AM EDT Inhaled Oxygen Concentration - - Weight 122.5 kg (270 lb) 07/12/2023 10:24 PM EDT Height 180.3 cm (5' 11") 07/12/2023 10:24 PM EDT Body Mass Index 37.66 07/12/2023 10:24 PM EDT documented in this [...] No 07/13/2023 documented as of this encounter Discharge Instructions * Discharge Instr - AVS* Yahir Beltran MD - 07/14/2023 11:47 AM EDT Discharge Date: 07/14/2023 The information below provides you with the instructions and the list of medications you need to betaking following discharge from the hospital. If you have any questions, please ask before leaving. If you have questions after leaving, you can reach us at the numbers below. YOUR HOSPITAL PROVIDERS: Discharging Provider: Yahir Beltran MD Provider Department: Hospital Medicine To reach this Provider Thursday through Thursday (8:00 AM to 4:30 PM) for any questions or test results: Call [phone] For after-hours concerns: Call [phone] and have your provider paged, or the provider environmental protection geologist for the Department of Hospital Medicine paged. Please note, the discharging provider will not be able to provide you with any medications refills.Please discuss these with your primary care provider. Worsening Symptoms: If you have new symptoms, or your symptoms get worse, please contact your Discharge Provider or Primary Care Provider (PCP). If these providers are not available, you can go to your local [email or web address] or Urgent Care Clinic during their business hours. In an EMERGENCY situation: Call 111 or go to the nearest emergency room. A BRIEF SUMMARY OF YOUR HOSPITAL STAY: You came to the hospital with: headache Your main diagnosis at discharge was: low white blood cell count, anemia Operations & Procedures performed: none Complications: none significant Inpatient test results that are pending at discharge: none Advance Directive Documented: Advance Directive Does the Patient have an Advance Directive? No YOUR FOLLOW UP APPOINTMENTS: Primary Care Provider Information: PCP: Kayla Reeder DO [address] [facility] / [place] [address] (office) [phone] (fax) An appointment was requested with your PCP (Kayla Reeder DO) within 7 days. (Please take this form to this visit with your primary care physician.) You need the following studies in the future: CBC: date - 1-3 days INSTRUCTIONS: Diet: Normal diet Activity: As tolerated Additional Instructions: - Call your primary care physician or seek medical attention if you experience worsening shortness of breath, chest pain, lightheadedness, dizziness. documented in this encounter Progress Notes * Yahir Beltran MD - 07/14/2023 10:03 AM EDT PROGRESS NOTE - Hospitalist [facility] [address] Name: Farhad Franco Location: [facility] [id number] Date: 07/14/2023 Time: 10:03 AM 32 year old male, HD# 0, admitted for headache in setting of recent EPOCH treatment for burkitt lymphoma SUBJECTIVE: NAEO. Denies present headache, CP, SOB. Afebrile, vitals appear stable, with intermittent, mild tachycardia ROS: As above. All other systems reviewed and negative PHYSICAL EXAMINATION: Most Recent Vital Signs: BP: 126 mmHg/88 mmHg (07/14/23731) Pulse: 98 (07/14/23731) Temp: 35.89 C (07/14/23731) Temp Summary: Temp Min: 35.9 C (96.6 F) Max: 36.5 C (97.7 F) SpO2: 99 % (07/14/23731) O2 flow rate: Supplemental O2 Delivery: Room Air, None (07/14/23731) General: WD/WN, NAD Head: NC/AT Eyes: EOMI, sclera anicteric, conjunctiva normal ENT: MMM Neck: supple Cardiac: RRR, no murmurs, rubs, gallops Lungs: CTAB, no wheezes, rales, rhonchi Abdomen: soft, nt, nd Extr: no pitting edema or bruising Skin: warm and dry, no jaundice Neuro: Aox3, no focal deficits Psych: mood and affect appropriate Intake/Output Summary (Last 24 hours) at 07/14/2023 1003 Last data filed at 07/13/2023 1826 Gross per 24 hour Intake 240 ml Output -- Net 240 ml STUDIES: Labs and other studies reviewed with pertinent findings noted below: Recent Results (from the past 24 hour(s)) CBC Collection Time: 07/13/23 11:53 AM Result Value Ref Range WBC 0.42 (LL) 4.00 - 10.80 K/uL RBC 3.54 4.50 - 5.25 M/uL HGB 10.6 (L) 14.0 - 16.8 g/dL HCT 30.3 (L) 40.0 - 48.4 % MCV 85.6 82.0 - 99.5 fL MCH 29.9 27.0 - 34.0 pg MCHC 35.0 32.0 - 36.0 g/dL RDW 12.3 11.5 - 15.5 % PLT 69 (L) 140 - 400 K/uL MPV 11.0 6.6 - 11.1 fL nRBCs 0 <=0 /100 WBCs CBC Collection Time: 07/13/23 5:20 PM Result Value Ref Range WBC 0.63 (LL) 4.00 - 10.80 K/uL RBC 3.62 4.50 - 5.25 M/uL HGB 10.7 (L) 14.0 - 16.8 g/dL HCT 30.8 (L) 40.0 - 48.4 % MCV 85.1 82.0 - 99.5 fL MCH 29.6 27.0 - 34.0 pg MCHC 34.7 32.0 - 36.0 g/dL RDW 12.4 11.5 - 15.5 % PLT 62 (L) 140 - 400 K/uL MPV 10.5 6.6 - 11.1 fL nRBCs 0 <=0 /100 WBCs CBC Collection Time: 07/13/23 11:30 PM Result Value Ref Range WBC 0.81 (LL) 4.00 - 10.80 K/uL RBC 3.78 4.50 - 5.25 M/uL HGB 11.3 (L) 14.0 - 16.8 g/dL HCT 31.8 (L) 40.0 - 48.4 % MCV 84.1 82.0 - 99.5 fL MCH 29.9 27.0 - 34.0 pg MCHC 35.5 32.0 - 36.0 g/dL RDW 12.5 11.5 - 15.5 % PLT 74 (L) 140 - 400 K/uL MPV 11.6 6.6 - 11.1 fL nRBCs 0 <=0 /100 WBCs BASIC METABOLIC PANEL Collection Time: 07/14/23 4:48 AM Result Value Ref Range BUN 10 6 - 20 mg/dL Creatinine 1.0 0.6 - 1.2 mg/dL Estimated Glomerular Filtration Rate >90 >=60 mL/min Sodium 138 135 - 146 mmol/L Potassium 3.7 3.5 - 5.1 mmol/L Chloride 104 98 - 107 mmol/L CO2 23 22 - 32 mmol/L Anion Gap 11 7 - 15 mmol/L Glucose 103 70 - 120 mg/dL Calcium 9.3 8.4 - 10.2 mg/dL CBC Collection Time: 07/14/23 4:48 AM Result Value Ref Range WBC 0.95 (LL) 4.00 - 10.80 K/uL RBC 3.52 4.50 - 5.25 M/uL HGB 10.3 (L) 14.0 - 16.8 g/dL HCT 30.0 (L) 40.0 - 48.4 % MCV 85.2 82.0 - 99.5 fL MCH 29.3 27.0 - 34.0 pg MCHC 34.3 32.0 - 36.0 g/dL RDW 12.5 11.5 - 15.5 % PLT 71 (L) 140 - 400 K/uL MPV 12.1 6.6 - 11.1 fL nRBCs 0 <=0 /100 WBCs DIFFERENTIAL, TECHNOLOGIST REVIEW Collection Time: 07/14/23 4:48 AM Result Value Ref Range WBC 0.95 (LL) 4.00 - 10.80 K/uL Neutrophils % 4.0 (L) 40.0 - 75.0 % Lymphocytes % 61.0 (H) 18.0 - 42.0 % Monocytes % 20.0 (H) 1.0 - 11.0 % Eosinophils % 7.0 (H) 0.0 - 6.0 % Basophils % 3.0 (H) 0.0 - 2.0 % Metamyelocytes % 1.0 (H) <=0.0 % Myelocytes % 4.0 (H) <=0.0 % Absolute Neutrophils 0.04 (L) 1.80 - 7.70 K/uL Absolute Lymphocytes 0.58 (L) 1.00 - 4.80 K/uL Absolute Monocytes 0.19 0.00 - 1.10 K/uL Absolute Eosinophils 0.07 0.00 - 0.70 K/uL Absolute Basophils 0.03 0.00 - 0.20 K/uL Absolute Metamyelocytes 0.01 (H) <=0.00 K/uL Absolute Myelocytes 0.04 (H) <=0.00 K/uL IMAGING: MRI BRAIN W WO CONTRAST Result Date: 07/13/2023 IMPRESSION: No acute intracranial abnormality nor suspicious lesion. Chronic left TRADE SPECIALIST territory infarct. CTA HEAD/CTA NECK Result Date: [...] brain could be considered for further evaluation. 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 * POA = Present On Admission 32yo male with primary cerebral angiitis (previously on cellcept, cytoxan, MTX until 2014), Burkitt's lymphoma diagnosed during admission to [facility] 06/19-07/06 for retroperitoneal mass, s/p 1 cycle R-EPOCH, single dose of intrathecal MTX, course complicated by TLS treated with rasburicase and allopurinol and PNA currently being treated with augmentin and cipro. Admitted for headache of unclear significance (which has resolved), and pancytopenia. Burkitt's lymphoma Pancytopenia -cell counts stable, though without significant recovery -MRI negative for lymphoma or acute process -s/p nyvepria injection 07/08 (pt and mother dispute that he received this, though it is documented) -oncology consulted -qD CMP/CBC with diff -qshift vitals -Ppx: bactrim/acyclovir/fluconazole PNA -will continue augmentin as prescribed for 3 days -continue levaquin Cancer Pain -continue subutex+dilaudid FEN/GI: regular VTE PPx: held CODE STATUS: Code Status: Full Code DISPO: Floor Time spent: 45 Mins, more than half with patient and remaining time for coordination of care with nurses and specialties Yahir Beltran MD documented in this encounter H&P Notes * Dean Mcgrath PA-C - 07/13/2023 4:09 AM EDT Images from the original note were not included. [facility] PRESENTING PROBLEM: Headache HPI: Mr. Farhad Franco is a 32 y/o male with PMHx significant for cerebral vasculitis (since 6 years old per patient's mother), HTN, EBV + lymphoma, Burkitt lymphoma, petit-mal seizures who presentsto the [facility] ED c/o headache. He was just admitted at [facility] from 06/20/2023 to 07/07/2023 for EBV + Burkitt lymphoma in the abdomen and was started on chemotherapy for this during that stay. Since his discharge, he had been doing relatively okay in terms of pain control and was on track to follow up with Oncology here on 07/14. However, he began to have a worsening headache starting last evening and noted that it felt different from what he was used to. He states that when he had headaches from his cerebral vasculitis in the past, the pain was primarily in the back of his head. He states that this time his headache is in the front and center of his head, different from past headaches. As his symptoms were causing him discomfort and he had recently had a significant diagnosis, he came to the ED for further evaluation. In the ED, workup was significant for leukopenia and otherwise unremarkable labs. CTA of the head and neck shows areas of irregular stenosis in the cerebral vascular similar to previous studies with no signs of acute pathology. His case was reviewed with neurology at [facility] who noted that he should get an MRI of the brain with/without contrast to rule out cerebral lymphoma (he had an LP that was negative for this at [facility] but neurology states it would take 3 negative LPs to rule this out). They reported that he should be transferred if MRI was positive for lymphoma, but otherwise that he should bestable at [facility]. Patient reports concerns as outlined above and denies additional concerns at this time. He was admitted for further evaluation and care. Subjective ROS: As above in HPI, otherwise negative Patient's past history, medications, and allergies were reviewed. Objective Physical Exam Most Recent Vital Signs: BP: 112 mmHg/59 mmHg (07/13/23 0230) Pulse: 95 (07/13/23 0230) Temp: 36.89 C (07/12/232223) Temp Summary: Temp Min: 36.9 C (98.4 F) Max: 36.9 C (98.4 F) SpO2: 100 % (07/12/232223) O2 flow rate: Supplemental O2 Delivery: Physical Exam Constitutional: General: He is not in acute distress. Appearance: Normal appearance. Comments: Lethargic appearing, tired but responds to verbal stimuli HENT: Head: Normocephalic and atraumatic. Mouth/Throat: Mouth: Mucous membranes are moist. Eyes: Extraocular Movements: Extraocular movements intact. Pupils: Pupils are equal, round, and reactive to light. Cardiovascular: Rate and Rhythm: Normal rate and regular rhythm. Heart sounds: No murmur heard. No friction rub. No gallop. Pulmonary: Effort: Pulmonary effort is normal. Breath sounds: Normal breath sounds. No wheezing, rhonchi or rales. Abdominal: General: Abdomen is flat. Bowel sounds are normal. There is no distension. Palpations: Abdomen is soft. There is no mass. Tenderness: There is no abdominal tenderness. Musculoskeletal: General: Normal range of motion. Cervical back: Normal range of motion and neck supple. Skin: General: Skin is warm and dry. Neurological: General: No focal deficit present. Mental Status: He is oriented to person, place, and time. Psychiatric: Mood and Affect: Mood normal. Behavior: Behavior normal. Peripheral Line Right 22 Gauge (Active) Number of days: 1 STUDIES: Encounter Orders Labs and other studies reviewed with pertinent findings noted below: Results for orders placed or performed during the hospital encounter of 07/12/23 COMPREHENSIVE METABOLIC PANEL Result Value Ref Range BUN 13 6 - 20 mg/dL Creatinine 0.7 0.6 - 1.2 mg/dL Estimated Glomerular Filtration Rate >90 >=60 mL/min Sodium 135 135 - 146 mmol/L Potassium 3.9 3.5 - 5.1 mmol/L Chloride 104 98 - 107 mmol/L CO2 18 (L) 22 - 32 mmol/L Anion Gap 13 7 - 15 mmol/L Glucose 124 (H) 70 - 120 mg/dL Albumin 4.3 3.8 - 5.0 g/dL AST 17 10 - 50 U/L Alkaline Phosphatase 117 35 - 130 U/L Bilirubin, Total 0.4 <=1.2 mg/dL Calcium 9.7 8.4 - 10.2 mg/dL Protein 7.6 6.0 - 8.3 g/dL ALT 44 10 - 50 U/L PHOSPHORUS Result Value Ref Range Phosphorus 2.6 2.5 - 4.8 mg/dL MAGNESIUM Result Value Ref Range Magnesium 2.0 1.5 - 2.6 mg/dL URIC ACID Result Value Ref Range Uric Acid 3.8 3.4 - 7.0 mg/dL PT INR Result Value Ref Range Prothrombin Time 13.7 11.6 - 15.2 seconds INR 1.1 0.8 - 1.2 CBC Result Value Ref Range WBC 0.47 (LL) 4.00 - 10.80 K/uL RBC 4.15 4.50 - 5.25 M/uL HGB 12.6 (L) 14.0 - 16.8 g/dL HCT 35.1 (L) 40.0 - 48.4 % MCV 84.6 82.0 - 99.5 fL MCH 30.4 27.0 - 34.0 pg MCHC 35.9 32.0 - 36.0 g/dL RDW 12.4 11.5 - 15.5 % PLT 79 (L) 140 - 400 K/uL MPV 10.5 6.6 - 11.1 fL nRBCs 0 <=0 /100 WBCs CRP (INFLAMMATORY MARKER) Result Value Ref Range CRP (Inflammatory Marker) 22 (H) <=5 mg/L CTA HEAD/CTA NECK Final Result EXAM CT HEAD WITHOUT CONTRAST - 07/13/2023 2:08 am CTA HEAD/CTA NECK - 07/13/2023 2:08 am HISTORY headache. 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 COMPARISON CT head 06/29/2023; thyroid ultrasound 04/23/2022; MRA head 08/28/2021 TECHNIQUE Axial images obtained through the head without contrast. CT angiography was performed using thin helical acquisition with dynamic bolus contrast injection of the head and neck, and 2-D and 3-D reconstructed images are provided. FINDINGS CT HEAD WITHOUT CONTRAST: No acute intracranial hemorrhage, focal edema, mass effect or midline shift is identified. Stable chronic encephalomalacia in the left occipital lobe. No space-occupying mass lesions are identified on noncontrast CT. There is no hydrocephalus. Stable minimal ex vacuo dilatation of the occipital horn of the left lateral ventricle. No abnormal extraaxial fluid collections are identified. Midline structures are normally developed and positioned. Chronic left temporal calvarial defect, possible prior craniotomy site, unchanged. The intraorbital contents show no acute abnormality. Mucous retention cyst in the left maxillary sinus. Minimal mucosal thickening in the bilateral maxillary sinuses.. Relatively hypopneumatized right mastoid. CTA HEAD AND NECK: Arch and mediastinum: The aortic arch is of normal caliber and there is normal anatomy of the great vessel origins. Anterior circulation: On the right side the common carotid artery is of normal caliber. There is no flow-limiting stenosis of the internal carotid artery. The distal right internal carotid artery segments, and the anterior and middle cerebral arteries are patent, and show no significant stenosis. On the left side, the common carotid artery is of normal caliber. There is no flow-limiting stenosis of the internal carotid artery. The distal left internal carotid artery segments and the anterior are patent, and show no significant stenosis. Redemonstrated pronounced hypoplasia or stenosis of all left MCA branches distal to the M1 branch, with relatively reduced vascularity in the left MCA distribution related to the right. Posterior circulation: There is a normal vertebrobasilar pattern. The basilar artery is of normal caliber. Both posterior cerebral arteries arise off the basilar tip. Question mild irregular beading/stenotic appearance of the P2B in distal segments of the right posterior cerebral artery, new or more conspicuous than prior, though this is hard to evaluate given small caliber of these vessels. Question mildly increased narrowing of the P1 segment of the left posterior cerebral artery. There is redemonstration of marked hypoplasia or narrowing of all left TRADE SPECIALIST branches distal to this with poor opacification distal to P2, similar to prior. There is satisfactory enhancement of the dural venous sinuses, superficial and deep systems. There is no evidence of aneurysm, vascular malformation, or hemodynamically significant stenosis. Additional findings: No acute osseous lesion is detected. No gross mass or adenopathy is detected in the upper mediastinum or neck. The lung apices show no suspicious nodules. IMPRESSION IMPRESSION CT HEAD WITHOUT CONTRAST shows: 1. No CT evidence for acute intracranial abnormality. 2. Stable chronic encephalomalacia in the left occipital lobe, likely sequela of chronic infarct. CTA HEAD AND NECK shows: 1. Redemonstration of multifocal areas of irregular stenosis or hypoplasia of the cerebral vasculature as above, left worse than right, stable to slightly worsened since prior and possibly representing sequela of reported cerebral vasculitis. There [...] brain could be considered for further evaluation. 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 * PLAN: - Admit with telemetry for observation - MRI brain with/without contrast - Heme/onc consult. Scheduled for follow up and possible neupogen on 07/14, but should see if possible as this schedule may change with his admission and current findings of leukopenia - Pain control for headache as directed - Continue home medications, including suppressive antiinfective agents - Continue home medications as directed - VTE prophylaxis: Lovenox, SCDs CODE STATUS: Full Code EXPECTED DISCHARGE DATE: 07/14/[address] Lacey I spent a total of 60 minutes coordinating, documenting, and providing care for this patient excluding time spent in the performance of separately billed services. Associated attestation - Aster Lacey MD - 07/13/2023 5:51 AM EDT I have reviewed the advanced practitioner's documentation on the date of service referenced in note, and I agree with, and take responsibility for the plan of care. I spent a total of 60 minutes coordinating, documenting, and providing care for this patient excluding time spent in the performance of separately billed services or time spent by another provider/QHP. Patient seen and evaluated with Dean Mcgrath PA-C Patient is a 32 yo gentleman with history of cerebral vasculitis, HTN, EBV lymphoma, Seizure who came with headache. Patient needs a brain MRI to rule out lymphoma. If MRI is positive for lymphoma, may need to be transfer to [facility] Aster Lacey MD MBA documented in this encounter Consult Notes * Elvis Villalobos MD - 07/14/2023 7:37 AM EDTAssociated Order(s): HEMATOLOGY CONSULT IP Images from the original note were not included. CONSULT - Oncology [facility] [id number] Name: Farhad Franco Location: [facility] [id number] Date: 07/14/2023 Time: 7:37 AM REQUESTING SERVICE: Hospitalist REASON FOR CONSULT: Neutropenia following chemotherapy, scheduled for follow up at Heme/onc office 07/14 REFERRING PHYSICIAN: Yahir Beltran MD DIAGNOSIS: 1. 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 2. Pancytopenia secondary to chemotherapy. 3. History of cerebral vasculitis followed by Rheumatology at [facility] and treated in the past with CellCept, Cytoxan, methotrexate for 1997 through 2014. 4. Symptoms of oral mucositis. HISTORY OF PRESENT ILLNESS: 32-year-old white male with recently diagnosed EBV [...] 6 mg was given on 07/09/2023 at [facility]. Headache is less severe. Patient denies nausea or vomiting but does have a sore throat without diarrhea. Patient denies peripheral paresthesias, cough, shortness of breath, abdominal pain, lower extremity swelling or redness, PND, orthopnea, palpitations. Patient denies peripheral paresthesias. . PAST MEDICAL HISTORY: Past Medical History: Diagnosis Date Adjustment disorder with depressed mood 08/14/2009 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 Follows in [place] q6m Cerebrovascular accident (CVA) (HCC) Gastroesophageal reflux disease with esophagitis 12/18/2014 History of petit-mal seizures 03/07/2016 Migraine with aura and without status migrainosus, not intractable 12/18/2014 Tobacco use disorder 01/01/2016 PAST SURGICAL HISTORY: Past Surgical History: Procedure Laterality Date COLONOSCOPY, DIAGNOSTIC (RECTUM) 02/05/2022 normal bx / COLONOSCOPY FLEXIBLE PROXIMAL DIAGNOSTIC performed by Laurence Dent MD at ENDOSCOPY [facility] EGD, FLEXIBLE, DIAGNOSTIC 02/05/2022 normal bx / ESOPHAGOGASTRODUODENOSCOPY (EGD), FLEXIBLE, TRANSORAL, DIAGNOSTIC performed by Laurence Dent MD at ENDOSCOPY [facility] INFORMATION Arteriograms. IR BIOPSY 06/22/2023 [place] ANESTH,OPEN HEAD SURGERY FAMILY HISTORY: No family history on file. SOCIAL HISTORY: Social History Tobacco Use Smoking status: Former [...] birthday and new years Drug use: Never ALLERGIES: Patient has no known allergies. REVIEW OF SYSTEMS: Review of systems other than that discussed above is non contributory. PHYSICAL EXAM: Most Recent Vital Signs: BP: 126 mmHg/88 mmHg (07/14/23731) Pulse: 98 (07/14/23731) Temp: 35.89 C (07/14/23731) Temp Summary: Temp Min: 35.9 C (96.6 F) Max: 36.5 C (97.7 F) SpO2: 99 % (07/14/23731) O2 flow rate: Supplemental O2 Delivery: Room Air, None (07/14/23731) PE: ECOG PS 2 PHYSICAL EXAMINATION: General Appearance: Healthy appearing patient in no acute distress, alert and oriented x3. Vitals were reviewed. HEENT: No oral or pharyngeal masses, ulceration or thrush noted, no sinus tenderness. Neck is supple with no thyromegaly or JVD noted. No plaques or vesicles in the oral cavity. Tongue not reddened. Lymph Nodes: No lymphadenopathy noted in the occipital, pre and post auricular, cervical, supra andinfraclavicular, axillary, epitrochlear, inguinal, and popliteal region. Breasts: No gynecomastia. Lungs/Thorax: Clear to auscultation, no accessory muscles of respiration being used. Heart: Regular rate and rhythm, normal S1, S2, no appreciable murmurs, rubs, gallops Abdomen: Obese, soft, no organomegaly, ascites, or CVA tenderness. es Extremities: Good pulses bilaterally, no peripheral edema, cyanosis, or clubbing. Skin: Normal skin tone with no rash, petechiae, ecchymosis noted. Musculoskeletal: No pain on palpation over bony prominence, no edema, no evidence of gout, no jointor bony deformity Neurologic: No focal sensory or motor deficits. LABS: Labs reviewed as indicated below: Latest Reference Range & Units 07/12/23 23:52 07/13/23 07:54 07/13/23 11:53 07/13/23 17:20 07/13/23 23:30 07/14/23 04:48 WBC 4.00 - 10.80 K/uL 0.47 (LL) 0.53 (LL) 0.42 (LL) 0.63 (LL) 0.81 (LL) 0.95 (LL) RBC 4.50 - 5.25 M/uL 4.15 3.53 3.54 3.62 3.78 3.52 HGB 14.0 - 16.8 g/dL 12.6 (L) 10.3 (L) 10.6 (L) 10.7 (L) 11.3 (L) 10.3 (L) HCT 40.0 - 48.4 % 35.1 (L) 29.8 (L) 30.3 (L) 30.8 (L) 31.8 (L) 30.0 (L) MCV 82.0 - 99.5 fL 84.6 84.4 85.6 85.1 84.1 85.2 MCH 27.0 - 34.0 pg 30.4 29.2 29.9 29.6 29.9 29.3 MCHC 32.0 - 36.0 g/dL 35.9 34.6 35.0 34.7 35.5 34.3 RDW 11.5 - 15.5 % 12.4 12.3 12.3 12.4 12.5 12.5 PLT 140 - 400 K/uL 79 (L) 60 (L) 69 (L) 62 (L) 74 (L) 71 (L) MPV 6.6 - 11.1 fL 10.5 10.7 11.0 10.5 11.6 12.1 CBC WITH WBC DIFFERENTIAL Rpt !! Rpt !! Rpt !! Absolute Neutrophils 1.80 - 7.70 K/uL 0.04 (L) Absolute Lymphocytes 1.00 - 4.80 K/uL 0.58 (L) Absolute Monocytes 0.00 - 1.10 K/uL 0.19 Absolute Eosinophils 0.00 - 0.70 K/uL 0.07 Absolute Basophils 0.00 - 0.20 K/uL 0.03 Latest Reference Range & Units 07/12/23 23:52 07/13/23 07:54 07/14/23 04:48 Sodium 135 - 146 mmol/L 135 138 138 Potassium 3.5 - 5.1 mmol/L 3.9 3.9 3.7 Chloride 98 - 107 mmol/L 104 105 104 CO2 22 - 32 mmol/L 18 (L) 19 (L) 23 BUN 6 - 20 mg/dL 13 13 10 Creatinine 0.6 - 1.2 mg/dL 0.7 0.8 1.0 Estimated Glomerular Filtration Rate >=60 mL/min >90 >90 >90 Anion Gap 7 - 15 mmol/L 13 14 11 Glucose 70 - 120 mg/dL 124 (H) 120 103 Calcium 8.4 - 10.2 mg/dL 9.7 9.1 9.3 Magnesium 1.5 - 2.6 mg/dL 2.0 Phosphorus 2.5 - 4.8 mg/dL 2.6 Protein 6.0 - 8.3 g/dL 7.6 Uric Acid 3.4 - 7.0 mg/dL 3.8 Latest Reference Range & Units 07/12/23 23:52 Albumin 3.8 - 5.0 g/dL 4.3 AST 10 - 50 U/L 17 ALT 10 - 50 U/L 44 Alkaline Phosphatase 35 - 130 U/L 117 Bilirubin, Total <=1.2 mg/dL 0.4 RADIOLOGY: IMPRESSION: MRI brain 07/13/2023 No acute intracranial abnormality nor suspicious lesion. Chronic left TRADE SPECIALIST territory infarct. IMPRESSION: CTA head and neck 06/29/2023 CT HEAD WITHOUT CONTRAST shows: 1. No CT evidence for acute intracranial abnormality. 2. Stable chronic encephalomalacia in the left occipital lobe, likely sequela of chronic infarct. CTA HEAD AND NECK 07/13/2023 1. Redemonstration of multifocal areas of irregular stenosis or hypoplasia of the cerebral vasculature as above, left worse than right, stable to slightly worsened since prior and possibly representing sequela of reported cerebral vasculitis. There is especially small caliber/poor opacification of the distal branches of the left posterior cerebral artery, though this finding is similar to prior. 2. Carotid and vertebral arterial systems are widely patent in the neck bilaterally. PATHOLOGY: BONE MARROW WITH REFLEX TESTING: [id number] 06/25/2023 Order: [id number] - Part of Panel Order [id number] Status: Final result Visible to patient: Yes (seen) Next appt: 07/15/2023 at 11:30 AM in Laboratory ([facility]) 0 Result Notes Component Diagnosis Bone marrow, left posterior iliac crest, aspirate, biopsy, clot, touch imprints and peripheral blood: - Normocellular marrow with trilineage hematopoiesis. Negative for lymphoma. CYTOLOGY: [id number] 06/22/2023 Order: [id number] Status: Edited Result - FINAL Visible to patient: Yes (seen) Next appt: 07/15/2023 at 11:30 AM in Laboratory ([facility]) 0 Result Notes Component Addendum 2 A. Retroperitoneum, CT guided fine needle aspiration: - [id number] B-cell lymphoma expressing EBV and t(8:14), consistent with Burkitt lymphoma. FISH studies BCL2 (18q21) Rearrangement Not Detected BCL6 (3q27) Rearrangement Not Detected MYC (8q24) Rearrangement Detected Flow Interpretation Retroperitoneum core biopsy: - [id number] B cell population expressing kappa light chains. See comment ASSESSMENT: 1. 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 2. Pancytopenia secondary to chemotherapy. 3. History of cerebral vasculitis followed by Rheumatology at [facility] and treated in the past with CellCept, Cytoxan, methotrexate for 1997 through 2014. 4. Symptoms of oral mucositis. PLAN: 1. Suggest magic mouthwash swish and swallow it as often as necessary to relieve oral pain to use primarily prior to meals. 2. Patient will need MediPort which will be set up as an outpatient. Next chemotherapy cycle as an outpatient probably begin on 07/27/2023 3. As long as the patient is afebrile, suggest discharge to keep appointment as an outpatient on 09/14/2023. I appreciate the opportunity of sharing in his care. documented in this encounter Nursing Notes * Mitzi Taylor RN - 07/13/2023 5:51 PM EDT Pt care without complication during this nurses shift. Headache and back pain controlled with PRN pain medication. Pt independent in room. All needs met at this time. * Preethi Mendez RN - 07/13/2023 5:55 AM EDT Dual Licensed Skin Assessment completed by Preethi Mendez RN and Ye Muse RN. The patient is/has a N/A Skin Breakdown (includes non blanchable erythema): No * Celina Do RN - 07/13/2023 5:41 AM EDT VIRTUAL RN [facility]-[address] [id number] Name: Farhad Franco Location: [facility] [id number] Date: 07/13/2023 Time: 5:41 AM I completed the Admission Navigator. The patient was in the hospital. I was not in a hospital or clinic location. After connecting through [employer], the patient was identified by name and date of and / or wristband checked. Patient (or authorized legal installation service representative) was then informed that this was a Virtual Nurse visit and was being conducted confidentially over secure lines. I used a headset and other methods to ensure confidentiality for the patient. Patient acknowledged consent and understanding of privacy and security of the Virtual Nurse visit. I presented the opportunity for the patient or authorized legal installation service representative to ask any questions regarding the visit today. The patient or authorized legal installation service representative agreed to participate. TT sent to bedside nurse Preethi Mendez RN noting completion of virtual admission with the exception for patient belongings, skin assessment, dysphagia screening and aggression scale. documented in this encounter ED Notes * Jaquan Alonso, - 07/13/2023 12:48 AM EDT HISTORY OF PRESENT ILLNESS Farhad Franco is a 32 year old male who presents to the ED for evaluation of Headache. The patient was seen at 07/13/23 0041. Headache Review of Systems Neurological: Positive for headaches. All other systems reviewed and are negative. Discharge summary from 07/06 at [facility]: "HOSPITAL COURSE (focused): Mr. Franco was admitted to medicine 06/19 [...] will see a AP in clinic on 07/14." The patient's allergies, past history, and medications were reviewed. PHYSICAL EXAM Initial Vitals (see all): BP 130/99 | Pulse 94 | Resp 16 | Temp 98.4 | O2 100 %, Room Air, None | Weight 122.47 kg | Height 180.3 cm | BMI 37.66 kg/m2 Initial Pain Assessment (see all): 4 (moderate pain)/10, Aching, location: headache ([facility] Adult Scale 0-10) Physical Exam Vitals and nursing note reviewed. Constitutional: General: He is not in acute distress. Appearance: He is well-developed. HENT: Head: Normocephalic and atraumatic. Eyes: Extraocular Movements: Extraocular movements intact. Conjunctiva/sclera: Conjunctivae normal. Pupils: Pupils are equal, round, and reactive to light. Cardiovascular: Rate and Rhythm: Normal rate and regular rhythm. Heart sounds: No murmur heard. Pulmonary: Effort: Pulmonary effort is normal. No respiratory distress. Breath sounds: Normal breath sounds. Abdominal: Palpations: Abdomen is soft. Tenderness: There is no abdominal tenderness. Musculoskeletal: General: No swelling. Cervical back: Neck supple. No rigidity. Skin: General: Skin is warm and dry. Capillary Refill: Capillary refill takes less than 2 seconds. Neurological: General: No focal deficit present. Mental Status: He is alert and oriented to person, place, and time. Cranial Nerves: No cranial nerve deficit. Sensory: No sensory deficit. Motor: No weakness. Coordination: Coordination normal. Psychiatric: Mood and Affect: Mood normal. PROCEDURES AND TREATMENTS ED Orders | ED Results MEDICAL DECISION MAKING Nursing notes and vital signs were reviewed. ED consults were placed. Differential Diagnoses Based on my history, physical exam, and evaluation, the differential includes, but is not limited, to the following diagnoses: LANG INTERPRETER lesion, malignancy, post LP headache, meningitis, encephalitis, migraine headache, tension headache, cluster headache, intracranial bleeding. Amount and/or Complexity of Data Reviewed Labs: ordered. Radiology: ordered. Risk OTC drugs. Prescription drug management. Decision regarding hospitalization. This is a 32-year-old male presenting to emergency department with a headache for the last 2 days. Vital signs normal on arrival. Physical exam as above. Neuro exam intact. CMP without significant abnormality. Phosphorus, uric acid, magnesium were all normal. CBC did show new leukopenia with white blood cell count of 470. Th[place]ocyt[place] [address]. Given this, bloodcultures were obtained. CTA head/neck did not show any acute findings. Patient did have improvementof pain with Toradol, Tylenol. He had improvement of nausea with Zofran. Case discussed with [facility], who recommended MRI of the brain with and without contrast to evaluatefor any potential metastatic lesions to the brain from patient's lymphoma. They stated that to definitively rule out LANG INTERPRETER lymphoma, patient was would require 3- LPs. I discussed patient's case with the hospitalist service, who accepted the patient for further workup and management. Patient remained s table while under my care in the emergency department. Clinical Impressions Headache History of B-cell lymphoma Chemotherapy-induced neutropenia (HCC) Disposition Admitted. I discussed the management of this patient with the admitting provider and I made a decision to admit the patient. Admission Order Ordered Status . 07/13/23 0430 Assign to Observation ONCE Completed Jaquan Alonso * Laquita Nguyen RN - 07/12/2023 10:26 PM EDT Pt had his first round chemo 4 days ago, pt developed a headache yesterday , is on subutext, and hydrocodone, took 2 hydrocodone this am documented in this encounter Miscellaneous Notes * Pt Handout (on AVS) - Khloe Stevenson RN - 07/14/2023 1:02 PM EDT Images from the original note were not included. [address] Neutropenia White blood cells (WBCs) help protect the body from infection. Neutrophils are a type of white blood cell. Their main job is to help the body fight bacterial and fungal infections. Neutropenia occurswhen there are fewer neutrophils in the blood than normal. It can range from mild to severe. This depends on the number of neutrophils in the blood. Severe neutropenia puts a person at higher risk for having more infections. Bacterial and fungal infections are most common. Your healthcare provider can tell you more about your condition and whether it needs to be treated. What causes neutropenia? There are two main types of neutropenia: congenital and acquired. Each type has many causes: Congenital neutropenia. These are the types that are present at . They are caused by certain rare genetic conditions, such as Kostmann syndrome. Most often the neutropenia is mild and normal for certain ethnic groups, including people of , , or Hinduism descent. Acquired neutropenia. This type is not present at . Causes include: o Certain medicines, such as antibiotics and chemotherapy medicines o Certain autoimmune conditions o Certain viral, bacterial, or parasitic infections o Too little folate or vitamin B-12 in the diet o Underlying bone marrow problem, such as leukemia or myelodysplastic syndrome (MDS) o Other causes How is neutropenia diagnosed? Your healthcare provider may check for neutropenia if you have frequent infections. Your provider may also check for neutropenia if you?re having certain treatments, such as chemotherapy, which is known to cause a lower neutrophil count. Neutropenia is often found when a routine complete blood count is drawn. Tests will be done to confirm the problem. These may include: A complete blood count (CBC). This test measures the amounts of the different types of cells in your blood. This includes the WBCs. The WBC count can be broken down further to find the number of neutrophils and immature neutrophils (bands) in your blood. This is called an absolute neutrophil count (ANC). A blood smear. This test checks for the different types of blood cells in your blood and how they appear. A sample of your blood is spread on a glass slide and viewed under a microscope. A stain is used so the blood cells can be seen. A bone marrow aspiration and biopsy. This test checks for problems with how your bone marrow makes blood cells. A needle is used to remove a sample of the bone marrow in your hip bone. The sample is then sent to a lab to be tested for problems. How is neutropenia treated? If there is a clear cause of neutropenia, it is addressed. For instance, if a medicine is the cause, it may be stopped or changed. Often no treatment is needed for mild cases, such as those linked to ethnicity. For moderate to severe cases, treatment is likely needed. This may include: o G-CSF (granulocyte-colony stimulating factor). This is a special type of protein. It helps promote the growth and activity of neutrophils. G-CSF is given by injection. o Bone marrow transplant. This treatment replaces diseased bone marrow cells with healthy cells from a matched donor. This treatment is done only in specific severe cases. What is the long-term outcome of neutropenia? The outcome of neutropenia varies for each person. For some people, neutropenia may resolve after afew weeks or months. For other people, it may be long- lasting. In these cases, ongoing care and treatment may be needed. Your healthcare provider will talk to you more about what to expect from your c ondition. When to call your healthcare provider Call your healthcare provider right away if you have any of the following: Cold sweat or chills Chest pain or trouble breathing Sore throat Cough Extreme tiredness or fatigue Nausea and vomiting Redness, warmth, or drainage from any open cuts or wounds Pain or burning with urination; frequent urination Pain, burning, or bleeding in the rectum Severe constipation or diarrhea Bloody stool or urine Call 911 Fever of 100.4F (38C) or higher. Call 911 or go to the emergency room. This is especially important if you have severe neutropenia. This puts you at higher risk for a life-threatening infection. How can I prevent infections? With neutropenia, take extra care to protect yourself from infection. Talk with your healthcare provider about what steps you need to take. What you do depends on how severe your neutropenia is. The following precautions help prevent infections: Wash your hands often, especially before eating and after using the bathroom. Use clean, runningwater and soap. Scrub for 20 seconds, or for as long as it takes to sing the Happy Birthday song from beginning to end, twice. Or use a hand gel that contains at least 60% alcohol. Stay away from crowds and close contact with others who may be ill. Cook meat and eggs all the way through to kill any germs. Carefully wash raw fruits and vegetables. Depending on how severe your neutropenia is, you may need to drop fresh fruits and vegetables from your diet. Clean items you use often with disinfectant wipes. This includes phones and computer keyboards. Don't touch your eyes, nose, and mouth, especially if your hands are not clean. Practice good oral hygiene. Use a soft toothbrush. Also, brush and floss your teeth gently. Always wipe from front to back after a bowel movement. Stay up to date on vaccines advised by your healthcare provider. Bathe every day and use an unscented lotion to prevent cracked skin. Keep cuts and scrapes clean and covered until they heal. Don't share items such as drinks, eating utensils, towels, toothbrushes, razors, clothing, and sports equipment. Store and handle foods safely to prevent food-borne illness. Protect yourself against pet waste (urine and stool) by using vinyl gloves when cleaning. Always use gloves when gardening. You may have to avoid having live plants in your home. Ask your healthcare provider if you need to take antibiotics before and after having any dental or medical procedures. Ask your healthcare provider if you need to wear a special mask near construction sites or farm areas. Last Reviewed Date: 01/16/202219994758-6346 [employer]. All rights reserved. This information is not intended as a substitute for professional medical care. Always follow your healthcare professional's instructions. * Pt Handout (on AVS) - Rula Carter RN - 07/14/2023 12:53 PM EDT Images from the original note were not included. [id number] Levofloxacin Oral Tablet Uses For treating bacterial infection. Instructions This medicine may be taken with or without food. Keep the medicine at room temperature. Avoid heat and direct light. Drink extra water while on this medicine. Adults should try to drink 6-8 cups (48 to 64 oz.) of water every day. Do not take any antacid or vitamins with magnesium, calcium, aluminum, or iron for 2 hours before and 2 hours after taking this medicine. This medicine can make you sensitive to the sun. Use sunscreen or protective clothing when in sun. If you forget to take a dose on time, take it as soon as you remember. If it is less than 8 hours to the next dose, do not take the missed dose. Return to your normal dosing schedule. Do not take 2 doses of this medicine at one time. Drug interactions can change how medicines work or increase risk for side effects. Tell your healthcare providers about all medicines taken. Include prescription and wfdk-sgi-rodszck medicines, vitamins, and herbal medicines. Speak with your doctor or pharmacist before starting or stopping any medicine. Tell your doctor if symptoms do not get better or if they get worse. Keep using this medicine for the full number of days that it is prescribed. Do not stop the medicine even if you start to feel better. This medicine may affect your blood sugar levels. If you have diabetes, talk to your doctor before changing the dose of your diabetes medicine. Keep all appointments for medical exams and tests while on this medicine. Cautions Tell your doctor and pharmacist if you ever had an allergic reaction to a medicine. Few patients may experience tendon problems. This is more common in patients older than 60. If you notice pain, swelling, or difficulty moving your joints, tell your doctor. This can happen even after stopping the medicine for a few months. Do not use the medication any more than instructed. Your ability to stay alert or to react quickly may be impaired by this medicine. Do not drive or operate machinery until you know how this medicine will affect you. Please check with your doctor before drinking alcohol while on this medicine. Speak with your health care provider before receiving any vaccinations. Please tell your doctor if you have moderate to severe diarrhea while on this medicine. Do not treat the diarrhea with [id number] diarrhea medicine. Tell the doctor or pharmacist if you are , planning to be , or . Do not share this medicine with anyone who has not been prescribed this medicine. Some patients have serious side effects from this medicine. Ask your pharmacist to show you the information from the Food and Drug Administration (FDA) and discuss it with you. Side Effects The following is a list of some common side effects from this medicine. Please speak with your doctor about what you should do if you experience these or other side effects. agitated feeling or trouble sleeping diarrhea dizziness headaches nausea and vomiting stomach upset or abdominal pain yeast infection of mouth vaginal itching or yeast infection Call your doctor or get medical help right away if you notice any of these more serious side effects: bleeding or bruising chest pain confusion severe, watery or bloody diarrhea fainting fever or chills numbness or tingling in hands and feet hallucinations (unusual thoughts, seeing or hearing things that are not real) severe or persistent headache fast or irregular heart beats pain in the joints signs of liver damage (such as yellowing of eye or skin, dark urine, or unusual tiredness) muscle trembling or weakness pale or blue skin, lips or fingernails seizures shortness of breath red, peeling or blistering skin light colored stool urinating less often difficulty or discomfort urinating blood in urine A few people may have an allergic reaction to this medicine. Symptoms can include difficulty breathing, skin rash, itching, swelling, or severe dizziness. If you notice any of these symptoms, seek medical help quickly. Extra Please speak with your doctor, nurse, or pharmacist if you have any questions about this medicine. [email or web address] IMPORTANT NOTE: This document tells you briefly how to take your medicine, but it does not tell youall there is to know about it. Your doctor or pharmacist may give you other documents about your medicine. Please talk to them if you have any questions. Always follow their advice. There is a more complete description of this medicine available in [place]. Scan this code on your smartphone or tablet or use the web address below. You can also ask your pharmacist for a printout. If you have any questions, please ask your pharmacist. The display and use of this drug information is subject to Terms of Use. Copyright(c) 2023 [employer]. [id number] [employer]. All rights reserved. This information is not intended as a substitute for professional medical care. Always follow your healthcare professional's instructions. * Communication - Khloe Stevenson RN - 07/14/2023 12:52 PM EDT Appointments: Please keep the scheduled appointment with Kayla Reeder July 20, 2023 at 1:40 pm. Family Practice [address] [place] [address] [place] [address] * Care Plan - Johanna Chowdhury RN - 07/14/2023 5:06 AM EDT Clinical Goal(s): Pt. will remain free from falls this shift (07/13/231956) Possible barriers to meeting goal(s)/advancing plan of care: admitting diagnosis Stability of the patient: Moderately stable - low risk of patient condition declining or worsening Summary regarding today's goal(s): Met: Pt. Remained free from falls this shift Recommendations: Continue fall precautions and neutropenic precautions * Care Plan - Mitzi Taylor RN - 07/13/2023 5:52 PM EDT Clinical Goal(s): Pt will be free of injury this shift (07/13/23 0900) Possible barriers to meeting goal(s)/advancing plan of care: PMHx Stability of the patient: Moderately stable - low risk of patient condition declining or worsening Summary regarding today's goal(s): Met: Pt free of injury this shift Recommendations: continue plan of care * Progress Notes - Non-Billable - Yahir Beltran MD - 07/13/2023 4:23 PM EDT 32yo male with primary cerebral angiitis (previously on cellcept, cytoxan, MTX until 2014), Burkitt's lymphoma diagnosed during admission to [facility] 06/19-07/06 for retroperitoneal mass, s/p 1 cycle R-EPOCH, course complicated by TLS treated with rasburicase and allopurinol and PNA currently being treated with augmentin and cipro. Admitted for headache of unclear significance which has subjectively improved since admission earlier. Single LP done during previous admission negative for lymphoma, s/pintrathecal MTX. MRI done today which was also negative. Burkitt's lymphoma Pancytopenia -cell counts stable, will continue to monitor CBC q6h -MRI negative for lymphoma or acute process -s/p nyvepria injection 07/08 -oncology consulted -qD CMP/CBC with diff -qshift vitals -Ppx: bactrim/acyclovir/fluconazole PNA -will continue augmentin as prescribed for 3 days -change cipro for levaquin, as pt is presently neutropenic Cancer Pain -continue subutex+dilaudid Yahir Beltran MD * Pt Handout (on AVS) - Xin Gracia RN - 07/13/2023 7:15 AM EDT Images from the original note were not included. [id number] Headache, Unspecified A number of things can cause headaches. The cause of your headache isn?t clear. But it doesn?t seemto be a sign of any serious illness. Headache affects almost everyone at some time. It's the most common reason people miss days from work or school. A physical and nervous system exam can help rule out any serious causes of headache. Sometimes you may need more testing. This could include blood work or imaging tests of the head, such as a CAT scan or MRI. You could have a tension headache or a migraine headache. Stress can cause a tension headache. This can happen if you tense the muscles of your shoulders, neck, and scalp without knowing it. If this stress lasts long enough, you may develop a tension headache. It's not clear why migraines occur, but certain things called triggers can raise the risk of havinga migraine attack. Migraine triggers may include emotional stress or depression, or by hormone changes during the menstrual cycle. Other triggers include control pills and other medicines, alcohol or caffeine, foods with tyramine, such as aged cheese or wine, eyestrain, weather changes, missed meals, and lack of sleep or oversleeping. Other causes of headache include: Viral illness with high fever Head injury with concussion Sinus, ear, or throat infection Dental pain and jaw joint (TMJ) pain More serious but less common causes of headache include stroke, brain hemorrhage, brain tumor, meningitis, and encephalitis. Home care Follow these tips when taking care of yourself at home: Don?t drive yourself home if you were given pain medicine for your headache. Instead, have someone else drive you home. Try to sleep when you get home. You should feel much better when you wake up. Apply heat to the back of your neck to ease a neck muscle spasm. Take care of a migraine headache by putting an ice pack on your forehead or at the base of your skull. If you have nausea or vomiting, eat a light diet until your headache eases. If you have a migraine headache, use sunglasses when in the daylight or around bright indoor lighting until your symptoms get better. Bright glaring light can make this type of headache worse. Follow-up care Follow up with your healthcare provider, or as advised. Talk with your provider if you have frequent headaches. They can help figure out a treatment plan. By knowing the earliest signs of headache, and starting treatment right away, you may be able to stop the pain yourself. When to get medical advice Call your healthcare provider right away if any of the following occur: Your head pain suddenly gets worse after sexual intercourse or strenuous activity Your head pain doesn?t get better within 24 hours You have new symptoms You aren?t able to keep liquids down (repeated vomiting) Fever of 100.4F (38C) or higher, or as directed by your healthcare provider Stiff neck Extreme drowsiness, confusion, or fainting Dizziness or dizziness with spinning sensation (vertigo) Weakness in an arm or leg or one side of your face You have trouble talking or seeing Last Reviewed Date: 04/16/202219998487-4475 [employer]. All rights reserved. This information is not intended as a substitute for professional medical care. Always follow your healthcare professional's instructions. * ED Oil Field Technician Note - Deborah Ortega RN - 07/13/2023 5:05 AM EDT Gave report to 5a staff * Medical Necessity - Alanis Marroquin RN - 07/13/2023 4:34 AM EDT AdmissionCare Guideline: Headache - OBS, Observation Based on the indications selected for the patient, the bed status of Observation was determined to be MET The following indications were selected as present at the time of evaluation of the patient: - Ability to maintain oral hydration unclear - Pain (ie, headache) insufficiently responsive to emergency department care AdmissionCare documentation entered by: Alanis Marroquin [facility] [employer], 27th edition, Copyright 2022 [employer] All Rights Reserved. [id number]:34:[id number]:00 Solely for purpose of utilization review and payment; not a diagnostic tool documented in this encounter Plan of Treatment Upcoming Encounters Date Type Department Care Team (Latest Contact Info) Description 07/15/2023 11:30 AM EDT Laboratory Laboratory, [address] [place] [id number] Gl, Lab [address] [place] [address] 07/15/2023 12:30 PM EDT Office Visit Hematology/Oncolog y, [address] [place] [address] Lakeshia Stone CRNP [address] [place] [address] 07/17/2023 1:06 PM EDT Hospital Encounter OR [facility], Operating Room, [facility] - 4th Floor [address] [place] [address] Medhat Angel MD [address] [place], [place] [address] [address] 07/17/2023 1:06 PM EDT - 07/17/2023 2:05 PM EDT Surgery OR [facility], Operating Room, [facility] - 4th Floor [address] [place], [place] [address] [address] Medhat Angel MD [address] [place], [place] [address] [address] INSERT TUNNELED CENTRAL VENOUS ACCESS WITH SUBQ PORT 07/20/2023 1:40 PM EDT Office Visit [facility] [address] [place] [address] Kayla Reeder DO [address] [place] [address] 07/22/2023 9:00 AM EDT Office Visit Palliative Medicine [facility] [address] [place] [address] Aury Silva MD [address] [place] [address] 07/22/2023 2:00 PM EDT Appointment Radiology, [address] [phone] 07/27/2023 8:00 AM EDT Laboratory Laboratory, [address] [phone] [facility], Lab [address] [place] [address] 07/27/2023 9:00 AM EDT Office Visit Hematology/Oncolog y, [address] [address] Mike Chaudhary MD [address] [place] [address] [phone] 08/12/2023 2:00 PM EDT Appointment Radiology, [address] [phone] 08/26/2023 1:00 PM EDT Office Visit Sleep Disorders, [address] [address] Dave Daigle PA-C [address] [place] [phone] Pending Results Name Type Priority Associated Diagnoses Date /Time CULTURE, BLOOD Lab Routine 07/13/2023 1:29 AM EDT CULTURE, BLOOD Lab Routine 07/13/2023 2:31 AM EDT Scheduled Procedures Name Priority Associated Diagnoses Date/Ti [...] Not on filedocumented as of this encounter Procedures Procedure Name Priority Date/Time Associated Diagnosis Comments CBC Routine 07/14/2023 11:47 AM EDT DIFFERENTIAL, AUTOMATED Routine 07/14/2023 4:48 AM EDT BASIC METABOLIC PANEL Routine 07/14/2023 4:48 AM EDT CBC Routine 07/14/2023 4:48 AM EDT CBC Routine 07/14/2023 4:48 AM EDT DIFFERENTIAL, TECHNOLOGIST REVIEW Routine 07/14/2023 4:48 AM EDT CBC Routine 07/13/2023 11:30 PM EDT CBC Routine 07/13/2023 5:20 PM EDT CBC Routine 07/13/2023 11:53 AM EDT MRI BRAIN W WO CONTRAST STAT 07/13/2023 10:39 AM EDT DIFFERENTIAL, AUTOMATED Routine 07/13/2023 7:54 AM EDT BASIC METABOLIC PANEL Routine 07/13/2023 7:54 AM EDT CBC Routine 07/13/2023 7:54 AM EDT CBC Routine 07/13/2023 7:54 AM EDT CULTURE, BLOOD Routine 07/13/2023 2:31 AM EDT CTA HEAD/CTA NECK STAT 07/13/2023 2:0 8 AM EDT CULTURE, BLOOD Routine 07/13/2023 1:29 AM EDT EXTRA REHMAN TOP Routine 07/12/2023 11:57 PM EDT EXTRA GREEN TOP WITH GEL Routine 07/12/2023 11:57 PM EDT EXTRA TUBES Routine 07/12/2023 11:57 PM EDT DIFFERENTIAL, AUTOMATED STAT 07/12/2023 11:52 PM EDT CRP (INFLAMMATORY MARKER) Add-on 07/12/2023 11:52 PM EDT COMPREHENSIVE METABOLIC PANEL STAT 07/12/2023 11:52 PM EDT CBC STAT 07/12/2023 11:52 PM EDT PT INR STAT 07/12/2023 11:52 PM EDT PHOSPHORUS Routine 07/12/2023 11:52 PM EDT CBC STAT 07/12/2023 11:52 PM EDT URIC ACID STAT 07/12/2023 11:52 PM EDT MAGNESIUM STAT 07/12/2023 11:52 PM EDT documented in this encounter Results * (ABNORMAL) CBC (07/14/2023 11:47 AM EDT) WBC 0.99(LL) 4.00 - 10.80 K/uL 07/14/2023 12:05 PM EDT LABORATORY [facility] RBC 3.63 4.50 - 5.25 M/uL 07/14/2023 12:05 PM EDT LABORATORY [facility] HGB 10.5(L) 14.0 - 16.8 g/dL 07/14/2023 12:05 PM EDT LABORATORY GL HCT 30.4(L) 40.0 - 48.4 % 07/14/2023 12:05 PM EDT LABORATORY [facility] MCV 83.7 82.0 - 99.5 fL 07/14/2023 12:05 PM EDT LABORATORY [facility] MCH 28.9 27.0 - 34.0 pg 07/14/2023 12:05 PM EDT LABORATORY [facility] MCHC 34.5 32.0 - 36.0 g/dL 07/14/2023 12:05 PM EDT LABORATORY [facility] RDW 12.2 11.5 - 15.5 % 07/14/2023 12:05 PM EDT LABORATORY [facility] PLT 74(L) 140 - 400 K/uL 07/14/2023 12:05 PM EDT LABORATORY [facility] MPV 10.5 6.6 - 11.1 fL 07/14/2023 12:05 PM EDT LABORATORY [facility] nRBCs 0 <=0 /100 WBCs 07/14/2023 12:05 PM EDT LABORATORY [facility] Blood Venous blood specimen / Unknown Venipuncture / Unknown 07/14/2023 11:47 AM EDT 07/14/2023 11:51 AM EDT Yahir Beltran MD LAB BLOOD ORDERABLE S LABORATORY [facility] [address] [place] [address] * (ABNORMAL) DIFFERENTIAL, TECHNOLOGIST REVIEW (07/14/2023 4:48 AM EDT) WBC 0.95(LL) 4.00 - 10.80 K/uL 07/14/2023 5:52 AM EDT LABORATORY GL Neutrophils % 4.0(L) 40.0 - 75.0 % 07/14/2023 5:52 AM EDT LABORATORY [facility] Lymphocytes % 61.0(H) 18.0 - 42.0 % 07/14/2023 5:52 AM EDT LABORATORY [facility] Monocytes % 20.0(H) 1.0 - 11.0 % 07/14/2023 5:52 AM EDT LABORATORY [facility] Eosinophils % 7.0(H) 0.0 - 6.0 % 07/14/2023 5:52 AM EDT LABORATORY [facility] Basophils % 3.0(H) 0.0 - 2.0 % 07/14/2023 5:52 AM EDT LABORATORY [facility] Metamyelocytes % 1.0(H) <=0.0 % 07/14/19 5:52 AM EDT LABORATORY GL Myelocytes % 4.0(H) <=0.0 % 07/14/2023 5:52 AM EDT LABORATORY GL Absolute Neutrophils 0.04(L) 1.80 - 7.70 K/uL 07/14/2023 5:52 AM EDT LABORATORY GL Absolute Lymphocytes 0.58(L) 1.00 - 4.80 K/uL 07/14/2023 5:52 AM EDT LABORATORY GL Absolute Monocytes 0.19 0.00 - 1.10 K/uL 07/14/2023 5:52 AM EDT LABORATORY GL Absolute Eosinophils 0.07 0.00 - 0.70 K/uL 07/14/2023 5:52 AM EDT LABORATORY GL Absolute Basophils 0.03 0.00 - 0.20 K/uL 07/14/2023 5:52 AM EDT LABORATORY GL Absolute Metamyelocytes 0.01(H) <=0.00 K/uL 07/14/2023 5:52 AM EDT LABORATORY GL Absolute Myelocytes 0.04(H) <=0.00 K/uL 07/14/2023 5:52 AM EDT LABORATORY GL Blood Venous blood specimen / Unknown Venipuncture / Unknown 07/14/2023 4:48 AM EDT 07/14/2023 5:04 AM EDT Yahir Beltran MD LAB BLOOD ORDERABLE S Performing Organization Address [facility]/ZIP Co de Phone Number LABORATORY [facility] [address] [place] [address] * DIFFERENTIAL, AUTOMATED (07/14/2023 4:48 AM EDT) Blood Venous blood specimen / Unknown Venipuncture / Unknown 07/14/2023 4:48 AM EDT 07/14/2023 5:04 AM EDT Yahir Beltran MD LAB BLOOD ORDERABLE S Performing Organization Address City/[facility]/ZIP Co de Phone Number LABORATORY [address] [address] * (ABNORMAL) CBC (07/14/2023 4:48 AM EDT) Pathologist [facility] WBC 0.95(LL) 4.00 - 10.80 K/uL 07/14/2023 5:36 AM EDT LABORATORY [facility] RBC 3.52 4.50 - 5.25 M/uL 07/14/2023 5:36 AM EDT LABORATORY [facility] HGB 10.3(L) 14.0 - 16.8 g/dL 07/14/2023 5:36 AM EDT LABORATORY [facility] HCT 30.0(L) 40.0 - 48.4 % 07/14/2023 5:36 AM EDT LABORATORY [facility] MCV 85.2 82.0 - 99.5 fL 07/14/2023 5:36 AM EDT LABORATORY GL MCH 29.3 27.0 - 34.0 pg 07/14/2023 5:36 AM EDT LABORATORY [facility] MCHC 34.3 32.0 - 36.0 g/dL 07/14/2023 5:36 AM EDT LABORATORY [facility] RDW 12.5 11.5 - 15.5 % 07/14/2023 5:36 AM EDT LABORATORY [facility] PLT 71(L) 140 - 400 K/uL 07/14/2023 5:36 AM EDT LABORATORY GL[facility] MPV 12.1 6.6 - 11.1 fL 07/14/2023 5:36 AM EDT LABORATORY [facility] nRBCs 0 <=0 /100 WBCs 07/14/2023 5:36 AM EDT LABORATORY [facility] Blood Venous blood specimen / Unknown Venipuncture / Unknown 07/14/2023 4:48 AM EDT 07/14/2023 5:04 AM EDT Yahir Beltran MD LAB BLOOD ORDERABLE S LABORATORY [facility] [address] [place] [address] * BASIC METABOLIC PANEL (07/14/2023 4:48 AM EDT) BUN 10 6 - 20 mg/dL 07/14/2023 5:31 AM EDT LABORATORY [facility] Creatinine 1.0 0.6 - 1.2 mg/dL 07/14/2023 5:31 AM EDT LABORATORY [facility] Estimated Glomerular Filtration Rate >90 >=60 mL/min 07/14/2023 5:31 AM EDT LABORATORY [facility] Comment:eGFR is calculated b ased on the CKD-EPI 2020 equation Sodium 138 135 - 146 mmol/L 07/14/2023 5:31 AM EDT LABORATORY [facility] Potassium 3.7 3.5 - 5.1 mmol/L 07/14/2023 5:31 AM EDT LABORATORY [facility] Chloride 104 98 - 107 mmol/L 07/14/2023 5:31 AM EDT LABORATORY [facility] CO2 23 22 - 32 mmol/L 07/14/2023 5:31 AM EDT LABORATORY [facility] Anion Gap 11 7 - 15 mmol/L 07/14/2023 5:31 AM EDT LABORATORY [facility] Glucose 103 70 - 120 mg/dL 07/14/2023 5:31 AM EDT LABORATORY [facility] Calcium 9.3 8.4 - 10.2 mg/dL 07/14/2023 5:31 AM EDT LABORATORY [facility] Blood Venous blood specimen / Unknown Venipuncture / Unknown 07/14/2023 4:48 AM EDT 07/14/2023 5:04 AM EDT Yahir Beltran MD LAB BLOOD ORDERABLE S Performing Organization Address City/[facility]/ZIP Co de Phone Number LABORATORY [facility] [address] [place] [address] * (ABNORMAL) CBC (07/13/2023 11:30 PM EDT) WBC 0.81(LL) 4.00 - 10.80 K/uL 07/13/2023 11:41 PM EDT LABORATORY GL RBC 3.78 4.50 - 5.25 M/uL 07/13/2023 11:41 PM EDT LABORATORY GL HGB 11.3(L) 14.0 - 16.8 g/dL 07/13/2023 11:41 PM EDT LABORATORY GL HCT 31.8(L) 40.0 - 48.4 % 07/13/2023 11:41 PM EDT LABORATORY GL MCV 84.1 82.0 - 99.5 fL 07/13/2023 11:41 PM EDT LABORATORY GL MCH 29.9 27.0 - 34.0 pg 07/13/2023 11:41 PM EDT LABORATORY GL MCHC 35.5 32.0 - 36.0 g/dL 07/13/2023 11:41 PM EDT LABORATORY GL RDW 12.5 11.5 - 15.5 % 07/13/2023 11:41 PM EDT LABORATORY GL PLT 74(L) 140 - 400 K/uL 07/13/2023 11:41 PM EDT LABORATORY [facility] MPV 11.6 6.6 - 11.1 fL 07/13/2023 11:41 PM EDT LABORATORY GL nRBCs 0 <=0 /100 WBCs 07/13/2023 11:41 PM EDT LABORATORY GL Blood Venous blood specimen / Unknown Venipuncture / Unknown 07/13/2023 11:30 PM EDT 07/13/2023 11:34 PM EDT Yahir Beltran MD LAB BLOOD ORDERABLE S LABORATORY [address] [address] * (ABNORMAL) CBC (07/13/2023 5:20 PM EDT) WBC 0.63(LL) 4.00 - 10.80 K/uL 07/13/2023 5:54 PM EDT LABORATORY [facility] RBC 3.62 4.50 - 5.25 M/uL 07/13/2023 5:54 PM EDT LABORATORY [facility] HGB 10.7(L) 14.0 - 16.8 g/dL 07/13/2023 5:54 PM EDT LABORATORY [facility] HCT 30.8(L) 40.0 - 48.4 % 07/13/2023 5:54 PM EDT LABORATORY [facility] MCV 85.1 82.0 - 99.5 fL 07/13/2023 5:54 PM EDT LABORATORY [facility] MCH 29.6 27.0 - 34.0 pg 07/13/2023 5:54 PM EDT LABORATORY [facility] MCHC 34.7 32.0 - 36.0 g/dL 07/13/2023 5:54 PM EDT LABORATORY [facility] RDW 12.4 11.5 - 15.5 % 07/13/2023 5:54 PM EDT LABORATORY [facility] PLT 62(L) 140 - 400 K/uL 07/13/2023 5:54 PM EDT LABORATORY [facility] MPV 10.5 6.6 - 11.1 fL 07/13/2023 5:54 PM EDT LABORATORY [facility] nRBCs 0 <=0 /100 WBCs 07/13/2023 5:54 PM EDT LABORATORY [facility] Blood Venous blood specimen / Unknown Venipuncture / Unknown 07/13/2023 5:20 PM EDT 07/13/2023 5:28 PM EDT Yahir Beltran MD LAB BLOOD ORDERABLE S LABORATORY [address] [place] [address] * (ABNORMAL) CBC (07/13/2023 11:53 AM EDT) WBC 0.42(LL) 4.00 - 10.80 K/uL 07/13/2023 12:12 PM EDT LABORATORY [facility] RBC 3.54 4.50 - 5.25 M/uL 07/13/2023 12:12 PM EDT LABORATORY [facility] HGB 10.6(L) 14.0 - 16.8 g/dL 07/13/2023 12:12 PM EDT LABORATORY [facility] HCT 30.3(L) 40.0 - 48.4 % 07/13/2023 12:12 PM EDT LABORATORY [facility] MCV 85.6 82.0 - 99.5 fL 07/13/2023 12:12 PM EDT LABORATORY [facility] MCH 29.9 27.0 - 34.0 pg 07/13/2023 12:12 PM EDT LABORATORY GL MCHC 35.0 32.0 - 36.0 g/dL 07/13/2023 12:12 PM EDT LABORATORY GL RDW 12.3 11.5 - 15.5 % 07/13/2023 12:12 PM EDT LABORATORY GL PLT 69(L) 140 - 400 K/uL 07/13/2023 12:12 PM EDT LABORATORY GL MPV 11.0 6.6 - 11.1 fL 07/13/2023 12:12 PM EDT LABORATORY GL nRBCs 0 <=0 /100 WBCs 07/13/2023 12:12 PM EDT LABORATORY GL Blood Venous blood specimen / Unknown Venipuncture / Unknown 07/13/2023 11:53 AM EDT 07/13/2023 12:07 PM EDT Yahir Beltran MD LAB BLOOD ORDERABLE S LABORATORY [facility] [address] [place] [address] * MRI BRAIN W WO CONTRAST (07/13/2023 10:39 AM EDT) Anatomical Region Laterality Modality Neuro, Head Magnetic Resonan ce 07/13/2023 10:5 1 AM EDT Impressions 07/13/2023 10:48 AM EDT IMPRESSION: No acute intracranial abnormality nor suspicious lesion. Chronic left TRADE SPECIALIST territory infarct. Narrative 07/13/2023 10:48 AM EDT EXAM: MRI BRAIN W WO CONTRAST 07/13/2023 HISTORY: Headache; Cancer/tumor, known or r/o; New MYERS; No known/automatically detected potential contraindications to imaging TECHNIQUE: Multiplanar multisequence magnetic resonance imaging of the brain was obtained before and after administration of intravenous contrast. COMPARISON: CT brain and CTA head 07/13/2023 FINDINGS: There is encephalomalacia and gliosis of the left occipital lobe likely on account of a chronic left TRADE SPECIALIST territory infarct. There is a small amount of chronic hemosiderin deposition in this region. There is no evidence of an acute infarct, hemorrhage, or mass lesion. No extra-axial fluid collection or midline shift. The basal cisterns are patent. The flow voids of the major intracranial arteries are grossly preserved. There are no suspicious enhancing abnormalities of the brain. No acute calvarial or orbital abnormality. There is a retention cyst along the floor of the left maxillary sinus. The mastoid air cells not demonstrate a significant abnormality. Procedure Note Luigi Edmond MD - 07/13/2023 EXAM: MRI BRAIN W WO CONTRAST 07/13/2023 HISTORY: Headache; Cancer/tumor, known or r/o; New MYERS; No known/automaticallydetected potential contraindications to imaging TECHNIQUE: Multiplanar multisequence magnetic resonance imaging of the brain wasobtained before and after administration of intravenous contrast. COMPARISON: CT brain and CTA head 07/13/2023 FINDINGS: There is encephalomalacia and gliosis of the left occipital lobe likely onaccount of a chronic left TRADE SPECIALIST territory infarct. There is a small amountof chronic hemosiderin deposition in this region. There is no evidence ofan acute infarct, hemorrhage, or mass lesion. No extra-axial fluidcollection or midline shift. The basal cisterns are patent. The flowvoids of the major intracranial arteries are grossly preserved. There areno suspicious enhancing abnormalities of the brain. No acute calvarial or orbital abnormality. There is a retention cystalong the floor of the left maxillary sinus. The mastoid air cells notdemonstrate a significant abnormality. IMPRESSION IMPRESSION: No acute intracranial abnormality nor suspicious lesion. Chronic left PCAterritory infarct. Yahir Beltran MD RAD MRI-MRA * DIFFERENTIAL, AUTOMATED (07/13/2023 7:54 AM EDT) Blood Venous blood specimen / Unknown Venipuncture / Unknown 07/13/2023 7:54 AM EDT 07/13/2023 8:12 AM EDT [facility] LABORATORY GL - 07/13/2023 8:18 AM EDT WBC < 0.60, WBC differential cancelled. Please call Client Services if differential is required. Yahir Beltran MD LAB BLOOD ORDERABLE S LABORATORY [facility] [address] [place] [address] * (ABNORMAL) CBC (07/13/2023 7:54 AM EDT) WBC 0.53(LL) 4.00 - 10.80 K/uL 07/13/2023 8:18 AM EDT LABORATORY [facility] RBC 3.53 4.50 - 5.25 M/uL 07/13/2023 8:18 AM EDT LABORATORY [facility] HGB 10.3(L) 14.0 - 16.8 g/dL 07/13/2023 8:18 AM EDT LABORATORY [facility] HCT 29.8(L) 40.0 - 48.4 % 07/13/2023 8:18 AM EDT LABORATORY [facility] MCV 84.4 82.0 - 99.5 fL 07/13/2023 8:18 AM EDT LABORATORY [facility] MCH 29.2 27.0 - 34.0 pg 07/13/2023 8:18 AM EDT LABORATORY [facility] MCHC 34.6 32.0 - 36.0 g/dL 07/13/2023 8:18 AM EDT LABORATORY [facility] RDW 12.3 11.5 - 15.5 % 07/13/2023 8:18 AM EDT LABORATORY [facility] PLT 60(L) 140 - 400 K/uL 07/13/2023 8:18 AM EDT LABORATORY [facility] MPV 10.7 6.6 - 11.1 fL 07/13/2023 8:18 AM EDT LABORATORY [facility] nRBCs 0 <=0 /100 WBCs 07/13/2023 8:18 AM EDT LABORATORY [facility] Blood Venous blood specimen / Unknown Venipuncture / Unknown 07/13/2023 7:54 AM EDT 07/13/2023 8:12 AM EDT Yahir Beltran MD LAB BLOOD ORDERABLE S Performing Organization Address City/[facility]/ZIP Co de Phone Number LABORATORY [facility] [address] [place] [address] * (ABNORMAL) BASIC METABOLIC PANEL (07/13/2023 7:54 AM EDT) Pathologist [facility] BUN 13 6 - 20 mg/dL 07/13/2023 8:35 AM EDT LABORATORY [facility] Creatinine 0.8 0.6 - 1.2 mg/dL 07/13/2023 8:35 AM EDT LABORATORY [facility] Estimated Glomerular Filtration Rate >90 >=60 mL/min 07/13/2023 8:35 AM EDT LABORATORY [facility] Comment:eGFR is calculated b ased on the CKD-EPI 2020 equation Sodium 138 135 - 146 mmol/L 07/13/2023 8:35 AM EDT LABORATORY [facility] Potassium 3.9 3.5 - 5.1 mmol/L 07/13/2023 8:35 AM EDT LABORATORY [facility] Chloride 105 98 - 107 mmol/L 07/13/2023 8:35 AM EDT LABORATORY [facility] CO2 19(L) 22 - 32 mmol/L 07/13/2023 8:35 AM EDT LABORATORY [facility] Anion Gap 14 7 - 15 mmol/L 07/13/2023 8:35 AM EDT LABORATORY [facility] Glucose 120 70 - 120 mg/dL 07/13/2023 8:35 AM EDT LABORATORY [facility] Calcium 9.1 8.4 - 10.2 mg/dL 07/13/2023 8:35 AM EDT LABORATORY [facility] Blood Venous blood specimen / Unknown Venipuncture / Unknown 07/13/2023 7:54 AM EDT 07/13/2023 8:12 AM EDT Yahir Beltran MD LAB BLOOD ORDERABLE S [facility] [address] [place] [address] * CTA HEAD/CTA NECK (07/13/2023 2:08 AM EDT) Anatomical Region Laterality Modality Neck, Head, Cspine, Spine Comput ed Tomography 07/13/2023 3:12 AM EDT Impressions 07/13/2023 3:[address] HEAD WITHOUT CONTRAST shows: 1. No CT evidence for acute intracranial abnormality. 2. Stable chronic encephalomalacia in the left occipital lobe, likely sequela of chronic infarct. CTA HEAD AND NECK shows: 1. Redemonstration of multifocal areas of irregular stenosis or hypoplasia of the cerebral vasculature as above, left worse than right, stable to slightly worsened since prior and possibly representing sequela of reported cerebral vasculitis. There [...] brain could be considered for further evaluation. Narrative 07/13/2023 3:[address] HEAD WITHOUT CONTRAST - 07/13/2023 2:08 am CTA HEAD/CTA NECK - 07/13/2023 2:08 am HISTORY headache. 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 COMPARISON CT head 06/29/2023; thyroid ultrasound 04/23/2022; MRA head 08/28/2021 TECHNIQUE Axial images obtained through the head without contrast. CT angiography was performed using thin helical acquisition with dynamic bolus contrast injection of the head and neck, and 2-D and 3-D reconstructed images are provided. FINDINGS CT HEAD WITHOUT CONTRAST: No acute intracranial hemorrhage, focal edema, mass effect or midline shift is identified. Stable chronic encephalomalacia in the left occipital lobe. No space-occupying mass lesions are identified on noncontrast CT. There is no hydrocephalus. Stable minimal ex vacuo dilatation of the occipital horn of the left lateral ventricle. No abnormal extraaxial fluid collections are identified. Midline structures are normally developed and positioned. Chronic left temporal calvarial defect, possible prior craniotomy site, unchanged. The intraorbital contents show no acute abnormality. Mucous retention cyst in the left maxillary sinus. Minimal mucosal thickening in the bilateral maxillary sinuses.. Relatively hypopneumatized right mastoid. CTA HEAD AND NECK: Arch and mediastinum: The aortic arch is of normal caliber and there is normal anatomy of the great vessel origins. Anterior circulation: On the right side the common carotid artery is of normal caliber. There is no flow-limiting stenosis of the internal carotid artery. The distal right internal carotid artery segments, and the anterior and middle cerebral arteries are patent, and show no significant stenosis. On the left side, the common carotid artery is of normal caliber. There is no flow-limiting stenosis of the internal carotid artery. The distal left internal carotid artery segments and the anterior are patent, and show no significant stenosis. Redemonstrated pronounced hypoplasia or stenosis of all left MCA branches distal to the M1 branch, with relatively reduced vascularity in the left MCA distribution related to the right. Posterior circulation: There is a normal vertebrobasilar pattern. The basilar artery is of normal caliber. Both posterior cerebral arteries arise off the basilar tip. Question mild irregular beading/stenotic appearance of the P2B in distal segments of the right posterior cerebral artery, new or more conspicuous than prior, though this is hard to evaluate given small caliber of these vessels. Question mildly increased narrowing of the P1 segment of the left posterior cerebral artery. There is redemonstration of marked hypoplasia or narrowing of all left [employer] branches distal to this with poor opacification distal to P2, similar to prior. There is satisfactory enhancement of the dural venous sinuses, superficial and deep systems. There is no evidence of aneurysm, vascular malformation, or hemodynamically significant stenosis. Additional findings: No acute osseous lesion is detected. No gross mass or adenopathy is detected in the upper mediastinum or neck. The lung apices show no suspicious nodules. Procedure Note Eleuterio Herrera MD - 07/13/[address] HEAD WITHOUT CONTRAST - 07/13/2023 2:08 am CTA HEAD/CTA NECK - 07/13/2023 2:08 am HISTORY headache. 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 COMPARISON CT head 06/29/2023; thyroid ultrasound 04/23/2022; MRA head 08/28/2021 TECHNIQUE Axial images obtained through the head without contrast. CT angiography was performed using thin helical acquisition with dynamicbolus contrast injection of the head and neck, and 2-D and 3-Dreconstructed images are provided. FINDINGS CT HEAD WITHOUT CONTRAST: No acute intracranial hemorrhage, focal edema, mass effect or midlineshift is identified. Stable chronic encephalomalacia in the leftoccipital lobe. No space-occupying mass lesions are identified onnoncontrast CT. There is no hydrocephalus. Stable minimal ex vacuodilatation of the occipital horn of the left lateral ventricle. Noabnormal extraaxial fluid collections are identified. Midline structuresare normally developed and positioned. Chronic left temporal calvarial defect, possible prior craniotomy site,unchanged. The intraorbital contents show no acute abnormality. Mucousretention cyst in the left maxillary sinus. Minimal mucosal thickening inthe bilateral maxillary sinuses.. Relatively hypopneumatized rightmastoid. CTA HEAD AND NECK: Arch and mediastinum: The aortic arch is of normal caliber and there is normal anatomy of thegreat vessel origins. Anterior circulation: On the right side the common carotid artery is of normal caliber. There is no flow-limiting stenosis of the internal carotid artery. The distal right internal carotid artery segments, and the anterior andmiddle cerebral arteries are patent, and show no significant stenosis. On the left side, the common carotid artery is of normal caliber. There is no flow-limiting stenosis of the internal carotid artery. The distal left internal carotid artery segments and the anterior arepatent, and show no significant stenosis. Redemonstrated pronouncedhypoplasia or stenosis of all left MCA branches distal to the M1 branch,with relatively reduced vascularity in the left MCA distribution relatedto the right. Posterior circulation: There is a normal vertebrobasilar pattern. The basilar artery is of normal caliber. Both posterior cerebral arteries arise off the basilar tip. Question mild irregular beading/stenotic appearance of the P2B in distalsegments of the right posterior cerebral artery, new or more conspicuousthan prior, though this is hard to evaluate given small caliber of thesevessels. Question mildly increased narrowing of the P1 segment of the leftposterior cerebral artery. There is redemonstration of marked hypoplasiaor narrowing of all left [employer] branches distal to this with pooropacification distal to P2, similar to prior. There is satisfactory enhancement of the dural venous sinuses, superficialand deep systems. There is no evidence of aneurysm, vascular malformation, orhemodynamically significant stenosis. Additional findings: No acute osseous lesion is detected. No gross mass or adenopathy is detected in the upper mediastinum orneck. The lung apices show no suspicious nodules. IMPRESSION IMPRESSION CT HEAD WITHOUT CONTRAST shows: 1. No CT evidence for acute intracranial abnormality. 2. Stable chronic encephalomalacia in the left occipital lobe, likelysequela of chronic infarct. CTA HEAD AND NECK shows: 1. Redemonstration of multifocal areas of irregular stenosis or hypoplasiaof the cerebral vasculature as above, left worse than right, stable toslightly worsened since prior and possibly representing sequela ofreported cerebral vasculitis. There is especially small caliber/pooropacification of the distal branches of the left posterior cerebralartery, though this finding is similar to prior. 2. Carotid and vertebral arterial systems are widely patent in the neckbilaterally. If there is concern for acute ischemia or other acute intracranialprocess, noncontrast MRI of the brain could be considered for furtherevaluation. Jaquan Alonso DO RAD CT * EXTRA REHMAN TOP (07/12/2023 11:57 PM EDT) Blood Venous blood specimen / Unknown 07/12/2023 11:57 PM EDT 07/12/2023 11:58 PM EDT Jaquan Alonso DO LAB BLOOD ORDERABLES Performing Organization Address [facility] de Phone Number LABORATORY [address] [address] * EXTRA GREEN TOP WITH GEL (07/12/2023 11:57 PM EDT) Blood Venous blood specimen / Unknown 07/12/2023 11:57 PM EDT 07/12/2023 11:58 PM EDT Jaquan Alonso DO LAB BLOOD ORDERABLES Performing Organization Address [facility] de Phone Number LABORATORY [address] [phone] * (ABNORMAL) CRP (INFLAMMATORY MARKER) (07/12/2023 11:52 PM EDT) CRP (Inflammatory Marker) 22(H) <=5 mg/L 07/13/2023 2:24 AM EDT LABORATORY GL Blood Venous blood specimen / Unknown Venipuncture / Unknown 07/12/2023 11:52 PM EDT 07/12/2023 11:57 PM EDT Jaquan Realiliya MALDONADO LAB BLOOD ORDERABLES Performing Organization Address [facility]/ZIP Co de Phone Number LABORATORY [address] [phone] * DIFFERENTIAL, AUTOMATED (07/12/2023 11:52 PM EDT) Blood Venous blood specimen / Unknown Venipuncture / Unknown 07/12/2023 11:52 PM EDT 07/12/2023 11:57 PM EDT Narrative LABORATORY [facility] - 07/13/2023 12:48 AM EDT WBC < 0.60, WBC differential cancelled. Please call Client Services if differential is required. Jaquan Alonso DO LAB BLOOD ORDERABLES Performing Organization Address [facility] de Phone Number LABORATORY [address] [phone] * (ABNORMAL) CBC (07/12/2023 11:52 PM EDT) WBC 0.47(LL) 4.00 - 10.80 K/uL 07/13/2023 12:48 AM EDT LABORATORY GL RBC 4.15 4.50 - 5.25 M/uL 07/13/2023 12:48 AM EDT LABORATORY [facility] HGB 12.6(L) 14.0 - 16.8 g/dL 07/13/2023 12:48 AM EDT LABORATORY [facility] HCT 35.1(L) 40.0 - 48.4 % 07/13/2023 12:48 AM EDT LABORATORY [facility] MCV 84.6 82.0 - 99.5 fL 07/13/2023 12:48 AM EDT LABORATORY [facility] MCH 30.4 27.0 - 34.0 pg 07/13/2023 12:48 AM EDT LABORATORY GL MCHC 35.9 32.0 - 36.0 g/dL 07/13/2023 12:48 AM EDT LABORATORY [facility] RDW 12.4 11.5 - 15.5 % 07/13/2023 12:48 AM EDT LABORATORY [facility] PLT 79(L) 140 - 400 K/uL 07/13/2023 12:48 AM EDT LABORATORY [facility] MPV 10.5 6.6 - 11.1 fL 07/13/2023 12:48 AM EDT LABORATORY [facility] nRBCs 0 <=0 /100 WBCs 07/13/2023 12:48 AM EDT LABORATORY [facility] Blood Venous blood specimen / Unknown Venipuncture / Unknown 07/12/2023 11:52 PM EDT 07/12/2023 11:57 PM EDT Jaquan Alonso DO LAB BLOOD ORDERABLES Performing Organization Address City/[facility]/ZIP Co de Phone Number LABORATORY [address] [address] * PT INR (07/12/2023 11:52 PM EDT) Prothrombin Time 13.7 11.6 - 15.2 seconds 07/13/2023 12:13 AM EDT LABORATORY [facility] INR 1.1 0.8 - 1.2 07/13/2023 12:13 AM EDT LABORATORY [facility] Blood Venous blood specimen / Unknown Venipuncture / Unknown 07/12/2023 11:52 PM EDT 07/12/2023 11:57 PM EDT Narrative LABORATORY [facility] - 07/13/2023 12:13 AM EDT Warfarin Therapy INR: 2.0-3.0 conventional anticoagulation INR: 2.5-3.5 high intensity anticoagulation Jaquan [employer] LAB BLOOD ORDERABLES Performing Organization Address City/[facility]/ZIP Co de Phone Number LABORATORY [address] [address] * URIC ACID (07/12/2023 11:52 PM EDT) Uric Acid 3.8 3.4 - 7.0 mg/dL 07/13/2023 12:15 AM EDT LABORATORY [facility] Blood Venous blood specimen / Unknown Venipuncture / Unknown 07/12/2023 11:52 PM EDT 07/12/2023 11:57 PM EDT Jaquan Alonso DO LAB BLOOD ORDERABLES Performing Organization Address [facility]/ZIP Co de Phone Number LABORATORY [address] [phone] * MAGNESIUM (07/12/2023 11:52 PM EDT) Magnesium 2.0 1.5 - 2.6 mg/dL 07/13/2023 12:15 AM EDT LABORATORY [facility] Blood Venous blood specimen / Unknown Venipuncture / Unknown 07/12/2023 11:52 PM EDT 07/12/2023 11:57 PM EDT Jaquan Alonso DO LAB BLOOD ORDERABLES Performing Organization Address [facility] Co de Phone Number LABORATORY [address] [phone] * PHOSPHORUS (07/12/2023 11:52 PM EDT) Phosphorus 2.6 2.5 - 4.8 mg/dL 07/13/2023 12:15 AM EDT LABORATORY [facility] Blood Venous blood specimen / Unknown Venipuncture / Unknown 07/12/2023 11:52 PM EDT 07/12/2023 11:57 PM EDT Jaquan Alonso DO LAB BLOOD ORDERABLES Performing Organization Address City/[facility] Co de Phone Number LABORATORY [address] [phone] * (ABNORMAL) COMPREHENSIVE METABOLIC PANEL (07/12/2023 11:52 PM EDT) BUN 13 6 - 20 mg/dL 07/13/2023 12:15 AM EDT LABORATORY [facility] Creatinine 0.7 0.6 - 1.2 mg/dL 07/13/2023 12:15 AM EDT LABORATORY [facility] Estimated Glomerular Filtration Rate >90 >=60 mL/min 07/13/2023 12:15 AM EDT LABORATORY [facility] Comment:eGFR is calculated b ased on the CKD-EPI 2020 equation Sodium 135 135 - 146 mmol/L 07/13/2023 12:15 AM EDT LABORATORY [facility] Potassium 3.9 3.5 - 5.1 mmol/L 07/13/2023 12:15 AM EDT LABORATORY [facility] Chloride 104 98 - 107 mmol/L 07/13/2023 12:15 AM EDT LABORATORY [facility] CO2 18(L) 22 - 32 mmol/L 07/13/2023 12:15 AM EDT LABORATORY [facility] Anion Gap 13 7 - 15 mmol/L 07/13/2023 12:15 AM EDT LABORATORY [facility] Glucose 124(H) 70 - 120 mg/dL 07/13/2023 12:15 AM EDT LABORATORY [facility] Albumin 4.3 3.8 - 5.0 g/dL 07/13/2023 12:15 AM EDT LABORATORY [facility] AST 17 10 - 50 U/L 07/13/2023 12:15 AM EDT LABORATORY [facility] Comment:Result may be falsel y elevated due to hemolysis. Alkaline Phosphatase 117 35 - 130 U/L 07/13/2023 12:15 AM EDT LABORATORY [facility] Bilirubin, Total 0.4 <=1.2 mg/dL 07/13/2023 12:15 AM EDT LABORATORY [facility] Calcium 9.7 8.4 - 10.2 mg/dL 07/13/2023 12:15 AM EDT LABORATORY [facility] Protein 7.6 6.0 - 8.3 g/dL 07/13/2023 12:15 AM EDT LABORATORY [facility] ALT 44 10 - 50 U/L 07/13/2023 12:15 AM EDT LABORATORY [facility] Blood Venous blood specimen / Unknown Venipuncture / Unknown 07/12/2023 11:52 PM EDT 07/12/2023 11:57 PM EDT Jaquan Alonso DO LAB BLOOD ORDERABLES LABORATORY [facility] [address] [place] [id number] documented in this encounter Visit Diagnoses Diagnosis Headache- Primary Headache History of B-cell lymphoma Chemotherapy-induced neutropenia (HCC) Drug induced neutropenia Chest pain Chest pain, unspecified 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) Burkitt's tumor or lymphoma of intra-abdominal lymph nodes 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) Other malignant lymphomas of intra-abdominal lymph nodes Cerebral vasculitis Giant cell arteritis HTN, goal below 140/90 Unspecified essential hypertension Gastroesophageal reflux disease with esophagitis Chemotherapy-induced neutropenia (HCC) Drug induced neutropenia Pancytopenia (HCC) Other pancytopenia B-cell lymphoma of intra-abdominal lymph nodes, unspecified B-cell lymphoma type (HCC) documented in this encounter Administered Medications Inactive Administered Medications - up to 3 most recent administrations Medication Order MAR Action Action Date Dose Rate Site Acetaminophen (Tylenol) tab 650 mg 650 mg, Oral, Q6H PRN Pain, Mild, Fever >38C(100.5F), Headache, Starting on Thu07/13/23 at 0444, Until Thu07/14/23 at 1938, Maximum of 4 grams (4000 mg) per day. Given 07/13/2023 9:08 AM EDT 650 mg Acetaminophen (Tylenol) tab 975 mg 975 mg, Oral, ONCE, On Thu07/13/23 at 0145, For 1 dose, Maximum of 4 grams (4000 mg) per day. Given 07/13/2023 1:33 AM EDT 975 mg Acyclovir (Zovirax) cap 400 mg 400 mg, Oral, BID (.AM/PM), First dose (after last modification) on Thu07/13/23 at 0900, Until Discontinued Given 07/14/2023 8:38 AM EDT 400 mg Given 07/13/2023 9:02 PM EDT 400 mg Given 07/13/2023 9:09 AM EDT 400 mg Allopurinol (Zyloprim) tab 300 mg 300 mg, Oral, Daily(AM), First dose on Thu07/13/23 at 0900, Until Discontinued Given 07/14/2023 8:34 AM EDT 300 mg Given 07/13/2023 9:09 AM EDT 300 mg amoxicillin-clavulanate (Augmentin) tab 875 mg 875 mg, Oral, Q12H, First dose on Thu07/13/23 at 0900, Last dose on Thu07/15/23 at 2100, For 3 days Given 07/14/2023 8:34 AM EDT 875 mg Given 07/13/2023 9:02 PM EDT 875 mg Given 07/13/2023 9:09 AM EDT 875 mg aspirin enteric coated tab 81 mg 81 mg, Oral, Daily(AM), First dose on Thu07/13/23 at 0900, Until Discontinued Given 07/14/2023 8:35 AM EDT 81 mg Given 07/13/2023 9:10 AM EDT 81 mg Bisacodyl (Dulcolax) supp 10 mg 10 mg, Rectal, DAILY PRN Constipation, Starting on Thu07/16/23 at 0437, Until Thu07/14/23 at 1938, Administer if no bowel movement within past 72 hours and patient unable to take oral medications. Bisacodyl (Dulcolax) tab 5 mg 5 mg, Oral, DAILY PRN Constipation, Starting on Thu07/16/23 at 0437, Until Thu07/14/23 at 1938, Administer in addition to polyethylene glycol and senna-docusate if no bowel movement in past 72 hours. buprenorphine HCL (Subutex) sublingual tab 1 mg 1 mg, Sublingual, AMPM, First dose on Thu07/13/23 at 0900, Until Discontinued Given 07/14/2023 8:35 AM EDT 1 mg Given 07/13/2023 7:57 PM EDT 1 mg Given 07/13/2023 9:09 AM EDT 1 mg celecoxib (CeleBREX) cap 200 mg 200 mg, Oral, Daily(AM), First dose on Thu07/13/23 at 0900, Until Discontinued, Do not use in patients with GFR <60 or patients receiving ketorolac. Given 07/14/2023 8:37 AM EDT 200 mg Given 07/13/2023 9:10 AM EDT 200 mg Cetirizine (ZyrTEC) tab 10 mg 10 mg, Oral, Daily(AM), First dose on Thu07/13/23 at 0900, Until Discontinued Given 07/14/2023 8:34 AM EDT 10 mg Given 07/13/2023 9:09 AM EDT 10 mg ciprofloxacin (Cipro) tab 500 mg 500 mg, Oral, Q12H, First dose on Thu07/13/23 at 0900, Until Discontinued, Hold antacids and iron for 3-4 hours before and after administration. Given 07/13/2023 9:10 AM EDT 500 mg divalproex ER (Depakote ER) extended release tab 500 mg 500 mg, Oral, QHS, First dose on Thu07/13/23 at 2200, Until Discontinued, Swallow whole. Do not crush, break or chew. Given 07/13/2023 9:02 PM EDT 500 mg Enoxaparin (Lovenox) inj 40 mg 40 mg, Subcutaneous, Daily(AM), First dose on Thu07/14/23 at 0900, Until Discontinued, If patient is on warfarin, inform provider if daily INR value is 2 or greater! Given 07/14/2023 8:38 AM EDT 40 mg Abdomen Left Lower Fluconazole (Diflucan) tab 400 mg 400 mg, Oral, Daily(AM), First dose on Thu07/13/23 at 0900, Until Discontinued Given 07/14/2023 8:37 AM EDT 400 mg Given 07/13/2023 9:09 AM EDT 400 mg fluticasone furoate-vilanterol (BREO ellipta) 100-25 MCG/ACT inhaler 1 Puff 1 Puff, Inhalation, Daily(AM), First dose on Thu07/13/23 at 0900, Until Discontinued Given 07/14/2023 7:26 AM EDT 1 Pu ff Given 07/13/2023 10:55 AM EDT 1 Puff gadobutrol (Gadavist) inj 12.3 mL 12.3 mL (rounded from 12.25 mL = 0.1 mL/kg 122.5 kg), Intravenous, ONCE, On Thu07/13/23 at 1030, For 1 dose, Radiology Medication Routing (Non-IR) Given 07/13/2023 10:26 AM EDT 12.3 mL Hand Right hydroCHLOROthiazide cap 12.5 mg 12.5 mg, Oral, Daily(AM), First dose on Thu07/13/23 at 0900, Until Discontinued Given 07/14/2023 8:35 AM EDT 12.5 mg Given 07/13/2023 9:09 AM EDT 12.5 mg HYDROmorphone (Dilaudid) tab 1 mg 1 mg, Oral, Q4H PRN Pain, Moderate, Starting on Thu07/13/23 at 1200, Until Thu07/14/23 at 1938 Given 07/14/2023 1: 36 PM EDT 1 mg Given 07/14/2023 9:08 AM EDT 1 mg Given 07/13/2023 11:31 PM EDT 1 mg HYDROmorphone (Dilaudid) tab 2 mg 2 mg, Oral, Q4H PRN Pain, Severe, Starting on Thu07/13/23 at 1200, Until Thu07/14/23 at 1938 Iopamidol (Isovue 370) inj 80 mL 80 mL, Intravenous, ONCE, On Thu07/13/23 at 0245, For 1 dose, Radiology Medication Routing (Non-IR) Given 07/13/2023 2:45 AM EDT 80 mL ketorolac (Toradol) 30 MG/ML inj 15 mg 15 mg, IV Push, ONCE, On Thu07/13/23 at 0145, For 1 dose Given 07/13/2023 1:32 AM EDT 15 mg levoFLOXacin (Levaquin) tab 750 mg 750 mg, Oral, Daily(AM), First dose on Thu07/14/23 at 0900, Until Discontinued, Hold antacids and iron for 3-4 hours before and after administration Given 07/14/2023 8:34 AM EDT 750 mg Menthol (Reynolds) cough drop 1 Lozenge 1 Lozenge, Oral, Q3H PRN Sore throat, Starting on Thu07/13/23 at 1732, Until Thu07/14/23 at 1938 Given 07/13/2023 6:35 PM EDT 1 Lozenge NSS 0.9% 1,000 mL bolus infusion Intravenous, at 1,000 mL/hr Administer over 60 Minutes, Administer entire volume within 60 minutes or less., ONCE, 1 dose, On Thu07/13/23 at 0145 New Bag 07/13/2023 1:38 AM EDT 1,000 mL 1000 mL/hr ondansetron (Zofran) inj 4 mg 4 mg, IV Push, ONCE, On Thu07/13/23 at 0215, For 1 dose Given 07/13/2023 1:43 AM EDT 4 mg ondansetron (Zofran) inj 4 mg 4 mg, IV Push, Q6H PRN Nausea, Starting on Thu07/13/23 at 0437, Until Thu07/14/23 at 1938 Given 07/14/2023 1:59 PM EDT 4 mg Given 07/13/2023 9:04 AM EDT 4 mg pantoprazole (Protonix) tab 40 mg 40 mg, Oral, Daily(AM), First dose on Thu07/13/23 at 0900, Until Discontinued, This med should NOT be Crushed or Chewed Given 07/14/2023 8:35 AM EDT 40 mg Given 07/13/2023 9:10 AM EDT 40 mg Polyethylene Glycol 3350 (Miralax) oral powder 17 g 17 g (1 Packet), Oral, DAILY PRN Constipation, Starting on Thu07/13/23 at 0437, Until Thu07/14/23 at 1938, Administer if no bowel movement within past 24 hours. propranolol (Inderal) tab 40 mg 40 mg, Oral, BID (.AM/PM), First dose on Thu07/13/23 at 0900, Until Discontinued, Hold for HR less than 60 or SBP below 100 and notify service if dose is held Given 07/14/2023 8:35 AM EDT 40 mg Given 07/13/2023 9:02 PM EDT 40 mg Given 07/13/2023 9:08 AM EDT 40 mg senna-docusate (Senokot-S) 2 Tablet 2 Tablet, Oral, BID (), First dose on Thu07/13/23 at 0800, Until Discontinued Given 07/14/2023 8:33 AM EDT 2 Tablets Given 07/13/2023 7:57 PM EDT 2 Tablets Given 07/13/2023 9:09 AM EDT 2 Tablets sodium chloride 0.9 % flush/inj 10 mL 10 mL, IV Push, ONCE, On Thu07/13/23 at 1030, For 1 dose, Do not flush if lock, PICC, or central line not in place; IV infusing or unable to flush., Radiology Medication Routing (Non-IR) Given 07/13/2023 10:30 AM EDT 10 mL Hand Right sulfamethoxazole-trimethoprim 400-80 mg per tab (Bactrim) 1 Tablet 1 Tablet, Oral, Daily(AM), First dose on Thu07/13/23 at 0900, Until Discontinued Given 07/14/2023 8:35 AM EDT 1 Tablet Given 07/13/2023 9:09 AM EDT 1 Tablet topiramate (topAMAX) tab 100 mg 100 mg, Oral, BID (.AM/PM), First dose on Thu07/13/23 at 0900, Until Discontinued Given 07/14/2023 8:34 AM EDT 100 mg Given 07/13/2023 9:02 PM EDT 100 mg Given 07/13/2023 9:09 AM EDT 100 mg documented in this encounter Active and Recently Administered Medications Times are shown in EDT. Scheduled Medication Order 07/12/2023 07/13/2023 07/14/2023 Acetaminophen (Tylenol) tab 975 mg (COMPLETED) 975 mg, Oral, ONCE, On Thu07/13/23 at 0145, For 1 dose, Maximum of 4 grams (4000 mg) per day. 0133 (Given - Provider: Deborah Ortega RN) Acyclovir (Zovirax) cap 400 mg 400 mg, Oral, BID (.AM/PM), First dose (after last modification) on Thu07/13/23 at 0900, Until Discontinued 908 (Given - Provider: Mitzi Taylor RN)2101 (Given - Provider: Johanna Chowdhury, RYLAN) 0838 (Given - Provider: Sandrine Roque, RYLAN) Allopurinol (Zyloprim) tab 300 mg 300 mg, Oral, Daily(AM), First dose on Thu07/13/23 at 0900, Until Discontinued 908 (Given - Provider: Mitzi Taylor RN) 0834 (Given - Provider: Sandrine Roque, RYLAN) amoxicillin-clavulanate (Augmentin) tab 875 mg 875 mg, Oral, Q12H, First dose on Thu07/13/23 at 0900, Last dose on Thu07/15/23 at 2100, For 3 days 908 (Given - Provider: Mitzi Taylor RN)2101 (Given - Provider: Johanna Chowdhury RN) 0834 (Given - Provider: Sandrine Roque RN) aspirin enteric coated tab 81 mg 81 mg, Oral, Daily(AM), First dose on Thu07/13/23 at 0900, Until Discontinued 909 (Given - Provider: Mitzi aTylor RN) 834 (Given - Provider: Sandrine Roque RN) buprenorphine HCL (Subutex) sublingual tab 1 mg 1 mg, Sublingual, AMPM, First dose on Thu07/13/23 at 0900, Until Discontinued 908 (Given - Provider: Mitzi Taylor RN)1956 (Given - Provider: Johanna Chowdhury, RYLAN) 35 (Given - Provider: Sandrine Roque RN) celecoxib (CeleBREX) cap 200 mg 200 mg, Oral, Daily(AM), First dose on Thu07/13/23 at 0900, Until Discontinued, Do not use in patients with GFR <60 or patients receiving ketorolac. 909 (Given - Provider: Mitzi Taylor RN) 836 (Given - Provider: Sandrine Roque RN) Cetirizine (ZyrTEC) tab 10 mg 10 mg, Oral, Daily(AM), First dose on Thu07/13/23 at 0900, Until Discontinued 908 (Given - Provider: Mitzi Taylor RN) 34 (Given - Provider: Sandrine Roque RN) ciprofloxacin (Cipro) tab 500 mg (CANCELED) 500 mg, Oral, Q12H, First dose on Thu07/13/23 at 0900, Until Discontinued, Hold antacids and iron for 3-4 hours before and after administration. 909 (Given - Provider: Mitzi Taylor RN) divalproex ER (Depakote ER) extended release tab 500 mg 500 mg, Oral, QHS, First dose on Thu07/13/23 at 2200, Until Discontinued, Swallow whole. Do not crush, break or chew. 2101 (Given - Provider: Johanna Chowdhury, RYLAN) Enoxaparin (Lovenox) inj 40 mg (CANCELED) 40 mg, Subcutaneous, Daily(AM), First dose on Thu07/14/23 at 0900, Until Discontinued, If patient is on warfarin, inform provider if daily INR value is 2 or greater! 0838 (Given - Provid er: Sandrine Roque RN) Fluconazole (Diflucan) tab 400 mg 400 mg, Oral, Daily(AM), First dose on Thu07/13/23 at 0900, Until Discontinued 908 (Given - Provider: Mitzi Taylor RN) 0837 (Given - Provider: Sandrine Roque RN) fluticasone furoate-vilanterol (BREO ellipta) 100-25 MCG/ACT inhaler 1 Puff 1 Puff, Inhalation, Daily(AM), First dose on Thu07/13/23 at 0900, Until Discontinued 1055 (Given - Provider: Julia Charles, WATCH REPAIR TECHNICIAN) 0726 (Given - Provider: Cielo Gomez, CONNOR) gadobutrol (Gadavist) inj 12.3 mL (COMPLETED) 12.3 mL (rounded from 12.25 mL = 0.1 mL/kg 122.5 kg), Intravenous, ONCE, On Thu07/13/23 at 1030, For 1 dose, Radiology Medication Routing (Non-IR) 1026 (Given - Provider: Kelin Valera, RT (R)) hydroCHLOROthiazide cap 12.5 mg 12.5 mg, Oral, Daily(AM), First dose on Thu07/13/23 at 0900, Until Discontinued 908 (Given - Provider: Mitzi Taylor RN) 0835 (Given - Provider: Sandrine Roque RN) Iopamidol (Isovue 370) inj 80 mL (COMPLETED) 80 mL, Intravenous, ONCE, On Thu07/13/23 at 0245, For 1 dose, Radiology Medication Routing (Non-IR) 0245 (Given - Provider: Roselyn Stevenson RT) ketorolac (Toradol) 30 MG/ML inj 15 mg (COMPLETED) 15 mg, IV Push, ONCE, On Thu07/13/23 at 0145, For 1 dose 0132 (Given - Provider: Deborah Ortega RN) levoFLOXacin (Levaquin) tab 750 mg 750 mg, Oral, Daily(AM), First dose on Thu07/14/23 at 0900, Until Discontinued, Hold antacids and iron for 3-4 hours before and after administration 0834 (Given - Provid er: Sandrine Roque RN) NSS 0.9% 1,000 mL bolus infusion (COMPLETED) Intravenous, at 1,000 mL/hr Administer over 60 Minutes, Administer entire volume within 60 minutes or less., ONCE, 1 dose, On Thu07/13/23 at 0145 0138 (New Bag - Provider: Deborah Ortega RN) ondansetron (Zofran) inj 4 mg (COMPLETED) 4 mg, IV Push, ONCE, On Thu07/13/23 at 0215, For 1 dose 0143 (Given - Provider: Deborah Ortega RN) pantoprazole (Protonix) tab 40 mg 40 mg, Oral, Daily(AM), First dose on Thu07/13/23 at 0900, Until Discontinued, This med should NOT be Crushed or Chewed 09 (Given - Provider: Mitzi Taylor RN) 0835 (Given - Provider: Sandrine Roque, RYLAN) propranolol (Inderal) tab 40 mg 40 mg, Oral, BID (.AM/PM), First dose on Thu07/13/23 at 0900, Until Discontinued, Hold for HR less than 60 or SBP below 100 and notify service if dose is held 907 (Given - Provider: Mitzi Taylor RN)2101 (Given - Provider: Johanna Chowdhury, RYLAN) 0835 (Given - Provider: Sandrine Roque, RYLAN) senna-docusate (Senokot-S) 2 Tablet 2 Tablet, Oral, BID (), First dose on Thu07/13/23 at 0800, Until Discontinued 908 (Given - Provider: Mitzi Taylor RN)1956 (Given - Provider: Johanna Chowdhury, RYLAN) 0833 (Given - Provider: Sandrine Roque, RYLAN) sodium chloride 0.9 % flush/inj 10 mL (COMPLETED) 10 mL, IV Push, ONCE, On Thu07/13/23 at 1030, For 1 dose, Do not flush if lock, PICC, or central line not in place; IV infusing or unable to flush., Radiology Medication Routing (Non-IR) 1030 (Given - Provider: Kelin Valera, RT (R)) sulfamethoxazole-trimethopri m 400-80 mg per tab (Bactrim) 1 Tablet 1 Tablet, Oral, Daily(AM), First dose on Thu07/13/23 at 0900, Until Discontinued 908 (Given - Provider: Mitzi Taylor RN) 834 (Given - Provider: Sandrine Roque, RYLAN) topiramate (topAMAX) tab 100 mg 100 mg, Oral, BID (.AM/PM), First dose on Thu07/13/23 at 0900, Until Discontinued 908 (Given - Provider: Mitzi Taylor RN)2101 (Given - Provider: Johanna Chowdhury RN) 833 (Given - Provider: Sandrine Roque, RYLAN) PRN Medication Order 07/12/2023 07/13/2023 07/14/2023 Acetaminophen (Tylenol) tab 650 mg 650 mg, Oral, Q6H PRN Pain, Mild, Fever >38C(100.5F), Headache, Starting on Thu07/13/23 at 0444, Until Thu07/14/23 at 193, Maximum of 4 grams (4000 mg) per day. 907 (Given - Provider: Mitzi Taylor RN) albuterol (VENTOLIN HFA/PROVENTIL HFA) inhaler 2 Puff, Inhalation, Q4H PRN Dyspnea, Starting on Thu07/13/23 at 0434, Until Thu07/14/23 at 193, SEND INHALER WITH PATIENT! WASTE INFO ( IF NOT SENT HOME WITH PATIENT) : Return unused medication to pharmacy in zip lock bag for disposal into black container labeled SP. Bisacodyl (Dulcolax) supp 10 mg(Linked Group 1) 10 mg, Rectal, DAILY PRN Constipation, Starting on Thu07/16/23 at 0437, Until Thu07/14/23 at 1938, Administer if no bowel movement within past 72 hours and patient unable to take oral medications. Bisacodyl (Dulcolax) tab 5 mg(Linked Group 1) 5 mg, Oral, DAILY PRN Constipation, Starting on Thu07/16/23 at 0437, Until Thu07/14/23 at 1938, Administer in addition to polyethylene glycol and senna-docusate if no bowel movement in past 72 hours. HYDROmorphone (Dilaudid) tab 1 mg(Linked Group 2) 1 mg, Oral, Q4H PRN Pain, Moderate, Starting on Thu07/13/23 at 1200, Until Thu07/14/23 at 1938 1350 (Given - Provider: Mitzi Taylor RN)1845 (Given - Provider: Mitzi Taylor RN)2331 (Given - Provider: Johanna Chowdhury RN) 0908 (Given - Provider: Sandrine Roque, RYLAN)1336 (Given - Provider: Sandrine Roque RN) HYDROmorphone (Dilaudid) tab 2 mg(Linked Group 2) 2 mg, Oral, Q4H PRN Pain, Severe, Starting on Thu07/13/23 at 1200, Until Thu07/14/23 at 1938 melatonin tab 3 mg 3 mg, Oral, HS PRN Insomnia, Starting on Thu07/13/23 at 0437, Until Thu07/14/23 at 1938 Menthol (Reynolds) cough drop 1 Lozenge 1 Lozenge, Oral, Q3H PRN Sore throat, Starting on Thu07/13/23 at 1732, Until Thu07/14/23 at 1938 1835 (Given - Provider: Mitzi Taylor RN) ondansetron (Zofran) inj 4 mg 4 mg, IV Push, Q6H PRN Nausea, Starting on Thu07/13/23 at 0437, Until Thu07/14/23 at 1938 0904 (Given - Provider: Mitzi Taylor RN) 1359 (Given - Provider: Sandrine Roque RN) Polyethylene Glycol 3350 (Miralax) oral powder 17 g(Linked Group 1) 17 g (1 Packet), Oral, DAILY PRN Constipation, Starting on Thu07/13/23 at 0437, Until Thu07/14/23 at 1938, Administer if no bowel movement within past 24 hours. sodium chloride 0.9 % flush/inj 3 mL 3 mL, IV Push, PRN Other, Line Patency, Starting on Thu07/13/23 at 0436, Until Thu07/14/23 at 1938, Do not flush if lock, PICC, or central line not in place, IV infusing or unable to flush Linked Groups Order Group 1: Polyethylene Glycol 3350 (Miralax) oral powder 17 gJump to med 17 g (1 Packet), Oral, DAILY PRN Constipation, Starting on Thu07/13/23 at 0437, Until Thu07/14/23 at 1938, Administer if no bowel movement within past 24 hours. And senna-docusate (Senokot-S) 1 Tablet (CANCELED) 1 Tablet, Oral, BID PRN Constipation, Starting on 07/15/23 at 0437, Until Thu07/13/23 at 0642, Administer in addition to polyethylene glycol if no bowel movement within past 48 hours. And Bisacodyl (Dulcolax) tab 5 mgJump to med 5 mg, Oral, DAILY PRN Constipation, Starting on Tess 07/16/23 at 0437, Until Thu07/14/23 at 1938, Administer in addition to polyethylene glycol and senna- docusate if no bowel movement in past 72 hours. And Bisacodyl (Dulcolax) supp 10 mgJump to med 10 mg, Rectal, DAILY PRN Constipation, Starting on Thu07/16/23 at 0437, Until Thu07/14/23 at 1938, Administer if no bowel movement within past 72 hours and patient unable to take oral medications. Group 2: HYDROmorphone (Dilaudid) tab 2 mgJump to med 2 mg, Oral, Q4H PRN Pain, Severe, Starting on Thu07/13/23 at 1200, Until Thu07/14/23 at 1938 And HYDROmorphone (Dilaudid) tab 1 mgJump to med 1 mg, Oral, Q4H PRN Pain, Moderate, Starting on Thu07/13/23 at 1200, Until Thu07/14/23 at 1938 documented in this encounter Advance Directives * [...] Healthcare Agent Relationshi p Communication Trixie Le [facility] Care Repr esentative (appointed verbally by patient or by statute hierarchy) [email or web address] Care Teams Assistant Manager Quality Management Relationship Specialty Start Date End Date Kayla Reeder DO [address] [facility] [place] [place] [address] PCP - General Family Medicine 06/11/23 documented as of this encounter
--- OUTSIDE RECORDS SUMMARY | 2023-09-18 21:33 | External Medical Summary | Summary of Care ---
Author Name Unknown Organization [facility] Address [address] [place] [address] Phone [phone] Care Team Providers Care Farmworker D[employer]ified Crops Name Role Phone Kayla Reeder DO Primary Care Provider +1- [phone] Reason for Visit * Reason Onset Date Comments Other 07/15/2023 Med RX issues an d questioning Neupogen Inj Encounter Details Date Type Department Care Team (Late st Contact Info) Description 07/15/2023 Telephone Hematology Oncology [facility] [address] [place] [address] Mike Chaudhary MD [address] [place] [address] Other (Med RX issues and [...] and then she stated the Rx for Magnolberto Potterel is too hard to get .... Asking to have chlorhexidine instead... documented in this encounter Plan of Treatment Upcoming Encounters Date Type Department Care Team (Latest Contact Info) Description 07/15/2023 12:30 PM EDT Office Visit [facility]ematology/Oncolog [facility] [address] [facility] [place] [address] Lakeshia Stone CRNP [address] [facility] [place] [address] Arrived 07/17/2023 1:06 PM EDT Hospital Encounter OR [facility], Operating Room, [facility] - 4th Floor [address] [facility] [place] [address] Medhat Angel MD [address] [facility] [place] [address] 07/17/2023 1:06 PM EDT - 07/17/2023 2:05 PM EDT Surgery OR [facility], Operating Room, [facility] - 4th Floor [address] [place] [place] [address] Medhat Angel MD [address] [facility] [place] [address] INSERT TUNNELED CENTRAL VENOUS ACCESS WITH SUBQ PORT 07/20/2023 1:40 PM EDT Office Visit Family Practice [address] [place] [address] Kayla Reeder DO [address] [place] [address] [address] 07/22/2023 9:00 AM EDT Office Visit Palliative Medicine [facility] [address] [place] [address] Aury Silva MD [address] [place], [place] [phone] 07/22/2023 2:00 PM EDT Appointment Radiology, [address] [address] 07/27/2023 8:00 AM EDT Laboratory Laboratory, [address] [phone] [facility], Lab [address] [place] [address] 07/27/2023 9:00 AM EDT Office Visit Hematology/Oncolog y, [address] [address] Mike Chaudhary MD [address] [place] [address] 08/12/2023 2:00 PM EDT Appointment Radiology, [address] [phone] 08/26/2023 1:00 PM EDT Office Visit Sleep Disorders, [address] [address] Dave Daigle PA-C [address] [place] [address] Scheduled Procedures Name Priority Associated Diagnoses Date/Ti [...] [facility] Communication Trixie Le [facility] Repr esentative (appointed verbally by patient or by statute hierarchy) [email or web address] Care Teams Farmworker Diversified Crops Relationship Specialty Start Date End Date Kayla Reeder DO [address] [facility] [place] [address] PCP - General Family Medicine 06/11/23 documented as of this encounter
--- OUTSIDE RECORDS SUMMARY | 2023-09-18 21:33 | External Medical Summary ---
Author Name Unknown Address Unknown Organization K1F:LABORATORY [facility] - [address] [facility]. [place] [address] Laboratory Report Ordering Provider Test Date Status MATTI BARAJAS 07/15/2023 11:13:29 Final Observation Date Value Abnormality Reference (Units ) Status SYNC LEUKOCYTES IN BLOOD BY AUTOMATED COUNT 07/15/2023 11:13:29 5.20 4.00-10.80 (K/uL) Final Neutrophils/100 leukocytes in Blood by Manual count 07/15/2023 11:13:29 39.0 Below low normal 40.0-75.0 (%) Final Lymphocytes/100 leukocytes in Blood by Manual count 07/15/2023 11:13:29 37.0 18.0-42.0 (%) Final Monocytes/100 leukocytes in Blood by Manual count 07/15/2023 11:13:29 18.0 Above high normal 1.0-11.0 (%) Final Eosinophils/100 leukocytes in Blood by Manual count 07/15/2023 11:13:29 2.0 0.0-6.0 (%) Final Basophils/100 leukocytes in Blood by Manual count 07/15/2023 11:13:29 1.0 0.0-2.0 (%) Final Metamyelocytes/100 leukocytes in Blood by Manual count 07/15/2023 11:13:29 2.0 Above high normal <=0.0 (%) Final Myelocytes/100 leukocytes in Blood by Manual count 07/15/2023 11:13:29 1.0 Above high normal <=0.0 (%) Final Neutrophils [#/volume] in Blood by Manual count 07/15/2023 11:13:29 2.03 1.80-7.70 (K/uL) Final Lymphocytes [#/volume] in Blood by Manual count 07/15/2023 11:13:29 1.92 1.00-4.80 (K/uL) Final Monocytes [#/volume] in Blood by Manual count 07/15/2023 11:13: 0.94 0.00-1.10 (K/uL) Final Eosinophils [#/volume] in Blood by Manual count 07/15/2023 11:: 0.10 0.00-0.70 (K/uL) Final Basophils [#/volume] in Blood by Manual count 07/15/2023 11:: 0.05 0.00-0.20 (K/uL) Final Metamyelocytes [#/volume] in Blood by Manual count 07/15/2023 11:: 0.10 Above high normal <=0.00 (K/uL) Final Myelocytes [#/volume] in Blood by Manual count 07/15/2023 11:: 0.05 Above high normal <=0.00 (K/uL) Final Dohle body [Presence] in Blood by Light microscopy 07/15/2023 11:13:29 Present Abnormal None Seen Final Variant lymphocytes [Presence] in Blood by Light microscopy 07/15/2023 11:13:29 Present Abnormal None Seen Final Giant platelets [Presence] in Blood by Light microscopy 07/15/2023 11:13:29 Present Abnormal None Seen Final Performing Location LABORATORY [facility] - [address] [place] [address]
--- OUTSIDE RECORDS SUMMARY | 2023-09-18 21:33 | External Medical Summary | Summary of Care ---
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); [...] 07/05/2021 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 Overview: Follows in [place] q6m History of petit-mal seizures 03/07/2016 Tobacco [...] 12:30 PM EDT Office Visit Hematology/Oncolog y, [facility] [address] [place] [place] [address] Lakeshia Stone CRNP [address] [facility] [address] Arrived 07/17/2023 1:06 PM EDT Hospital Encounter OR [facility], Operating Room, [facility] - 4th Floor [address] [place] [place] [address] Medhat Angel MD [address] [place] [address] 07/17/2023 1:06 PM EDT - 07/17/2023 2:05 PM EDT Surgery OR [facility], Operating Room, [facility] - 4th Floor [address] [place] [place] [address] Medhat Angel MD [address] [facility] [place] [address] INSERT TUNNELED CENTRAL VENOUS ACCESS WITH SUBQ PORT 07/20/2023 1:40 PM EDT Office Visit [facility], [place] [address] [facility] [place] [address] Kayla Reeder DO [address] [facility] [place] [address] 07/22/2023 9:00 AM EDT Office Visit Palliative Medicine [facility] [address] [place] [address] Aury Silva MD [address] [facility] [address] 07/22/2023 2:00 PM EDT Appointment Radiology, [address] [phone] 07/27/2023 8:00 AM EDT Laboratory Laboratory, [address] [phone] [facility], Lab [address] [place] [id number] 07/27/2023 9:00 AM EDT Office Visit Hematology/Oncolog y, [address] [address] Mike Chaudhary MD [address] [place] [address] 08/12/2023 2:00 PM EDT Appointment Radiology, [address] [phone] 08/26/2023 1:00 PM EDT Office Visit Sleep Disorders, [address] [address] Dave Daigle PA-C [address] [place] [address] Pending Results Name Type Priority Associated Diagnoses Date /Time CBC WITH WBC DIFFERENTIAL Lab STAT 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) 07/15/2023 11:13 AM EDT COMPREHENSIVE METABOLIC PANEL Lab STAT 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) 07/15/2023 11:13 AM EDT URIC ACID Lab STAT 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) 07/15/2023 11:13 AM EDT LD Lab STAT 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) 07/15/2023 11:13 AM EDT CBC Lab STAT 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) 07/15/2023 11:13 AM EDT DIFFERENTIAL, AUTOMATED Lab STAT 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) 07/15/2023 11:13 AM EDT Scheduled Procedures Name Priority Associated [...] Other malignant lymphomas of intra-abdominal lymph nodes B-cell lymphoma of intra-abdominal lymph nodes, unspecified B-cell lymphoma type (HCC) documented in this encounter Advance Directives * [...] [facility] p Communication Trixie Le [facility] Repr esentative (appointed verbally by patient or by statute hierarchy) [email or web address] Care Teams Humanities Professor Relationship Specialty Start Date End Date Kayla Reeder DO [address] [facility] [place] [address] PCP - General Family Medicine 06/11/23 documented as of this encounter
--- OUTSIDE RECORDS SUMMARY | 2023-09-18 21:33 | External Medical Summary ---
Author Name Unknown Address Unknown Organization K1F:LABORATORY [facility] - [address] [place] [address] Laboratory Report Ordering Provider Test Date Status KASHIF ALDRIDGE 07/13/2023 17:20:00 Final Observation Date Value Abnormality Reference (Units ) Status WBC, Total 07/13/2023 17:20:00 0.63 Below lower panic limits 4.00-10.80 (K/uL) Final RBC 07/13/2023 17:20:00 3.62 4.50-5.25 (M/uL) Final Hemoglobin 07/13/2023 17:20:00 10.7 Below low normal 14.0-16.8 (g/dL) Final HCT 07/13/2023 17:20:00 30.8 Below low normal 40.0-48.4 (%) Final MCV 07/13/2023 17:20:00 85.1 82.0-99.5 (fL) Final MCH 07/13/2023 17:20:00 29.6 27.0-34.0 (pg) Final MCHC 07/13/2023 17:20:00 34.7 32.0-36.0 (g/dL) Final RDW 07/13/2023 17:20:00 12.4 11.5-15.5 (%) Final Platelets 07/13/2023 17:20:00 62 Below low normal 140-400 (K/uL) Final MPV 07/13/2023 17:20:00 10.5 6.6-11.1 (fL) Final Nucleated erythrocytes/100 leukocytes [Ratio] in Blood by Automated count 07/13/2023 17:20:00 0 <=0 (/100 WBCs) Final Performing Location LABORATORY [facility] - [address] [address]
--- OUTSIDE RECORDS SUMMARY | 2023-09-18 21:33 | External Medical Summary | Summary of Care ---
Author Name Unknown Organization [facility] Address [address] [place] [address] Phone [phone] Care Team Providers Care Picked Edge Sewing Machine Operator Name Role Phone Kayla Reeder DO Primary Care Provider +1- [phone] Reason for Visit * Reason Onset Date Comments Other 07/15/2023 Med RX issues an d questioning Neupogen Inj Encounter Details Date Type Department Care Team (Late st Contact Info) Description 07/15/2023 Telephone Hematology Oncology [facility] [address] [place] [address] Mike Chaudhary MD [address] [place] [address] Other (Med RX issues and [...] family. Hao Schulte was called into the [facility] since they are the only local pharmacy that does compounds. Will be able to pick it up after their appointment. Address provided to the pharmacy. As for the shot - the mother [...] It appears there is an appointment in [place] [facility] on 07/21 for the fluoro room [...] 12:30 PM EDT Office Visit Hematology/Oncolog y, [facility] [address] [place] [place] [address] Lakeshia Stone CRNP [address] [facility] [address] Arrived 07/17/2023 1:06 PM EDT Hospital Encounter OR [facility], Operating Room, [facility] - 4th Floor [address] [place] [address] [place] [place] [address] Medhat Angel MD [address] [facility] [place] [address] 07/17/2023 1:06 PM EDT - 07/17/2023 2:05 PM EDT Surgery [facility], Operating Room, [facility] Floor [address] [place] [address] [place] [address] Medhat Angel MD [address] [place], [place] [address] [place] [address] INSERT TUNNELED CENTRAL VENOUS ACCESS WITH SUBQ PORT 07/20/2023 1:40 PM EDT Office Visit Family Practice [facility] [place] [address] [facility] [place] [address] Kayla Reeder DO [address] [facility] [place] [address] 07/22/2023 9:00 AM EDT Office Visit Palliative Medicine [facility] [address] [place] [phone] Aury Silva MD [address] [place] [address] [place] [address] 07/22/2023 2:00 PM EDT Appointment Radiology, [address] [address] 07/27/2023 8:00 AM EDT Laboratory Laboratory, [address] [phone] [facility], Lab [address] [place] [address] 07/27/2023 9:00 AM EDT Office Visit Hematology/Oncolog y, [address] [address] Mike Chaudhary MD [facility] [address] [place], [place] [phone] 08/12/2023 2:00 PM EDT Appointment Radiology, [address] [phone] 08/26/2023 1:00 PM EDT Office Visit Sleep Disorders, [address] [address] Dave Daigle PA-C [address] [place] [address] Scheduled Procedures Name Priority Associated Diagnoses Date/Ti [...] verbally by patient or by statute hierarchy) [email or web address] Care Teams Picked Edge Sewing Machine Operator Relationship Specialty Start Date End Date Kayla Reeder DO [address] [facility] [place] [address] PCP - General Family Medicine 06/11/23 documented as of this encounter
--- OUTSIDE RECORDS SUMMARY | 2023-09-18 21:33 | External Medical Summary ---
Author Name Unknown Address Unknown Organization K1F:LABORATORY [facility] - [address] [address] Laboratory Report Ordering Provider Test Date Status KASHIF ALDRIDGE 07/13/2023 07:54:00 Final Observation Date Value Abnormality Reference (Units ) Status WBC, Total 07/13/2023 07:54:00 0.53 Below lower panic limits 4.00-10.80 (K/uL) Final RBC 07/13/2023 07:54:00 3.53 4.50-5.25 (M/uL) Final Hemoglobin 07/13/2023 07:54:00 10.3 Below low normal 14.0-16.8 (g/dL) Final HCT 07/13/2023 07:54:00 29.8 Below low normal 40.0-48.4 (%) Final MCV 07/13/2023 07:54:00 84.4 82.0-99.5 (fL) Final MCH 07/13/2023 07:54:00 29.2 27.0-34.0 (pg) Final MCHC 07/13/2023 07:54:00 34.6 32.0-36.0 (g/dL) Final RDW 07/13/2023 07:54:00 12.3 11.5-15.5 (%) Final Platelets 07/13/2023 07:54:00 60 Below low normal 140-400 (K/uL) Final MPV 07/13/2023 07:54:00 10.7 6.6-11.1 (fL) Final Nucleated erythrocytes/100 leukocytes [Ratio] in Blood by Automated count 07/13/2023 07:54:00 0 <=0 (/100 WBCs) Final Performing Location LABORATORY [facility] - [address] [address]
--- OUTSIDE RECORDS SUMMARY | 2023-09-18 21:33 | External Medical Summary | Summary of Care ---
Author Name Unknown Organization [facility] Address [address] [place] [address] Phone [phone] Care Team Providers Care Sharepoint Manager Name Role Phone VarinderBryanKaylaparth Clarke DO Primary Care Provider [phone]- [phone] Encounter Details Date Type Department Care Team (Late st Contact Info) Description 07/13/2023 Population Health External Data Unspecified Department Allergies No known active allergiesdocumented as of this encounter (statuses as of 07/13/2023) Medications Medication Sig Dispensed Refills Start Date End Date Status ASPIRIN 81 MG PO TABS one tablet daily Suspende d Topiramate 100 MG Oral Tablet (topAMAX) TAKE ONE TABLET BY MOUTH TWICE A DAY (MORNING AND BEFORE BEDTIME) 180 Tablet 3 08/04/2022 Suspended Additional Information Divalproex Sodium ER 500 MG Oral Tablet Extended Release 24 Hour (Depakote ER) TAKE ONE TABLET BY MOUTH TWICE A DAY (MORNING AND BEFORE BEDTIME) -DO NOT CUT, CRUSH OR CHEW 180 Tablet 3 08/04/2022 Suspended Additional Information Patient taking differently: 500 mg Oral QHS, Reported on 06/02/2023 Propranolol HCl 40 MG Oral Tablet (Inderal)Indicati ons:Migraine with aura and without status migrainosus, not intractable,HTN, goal below 140/90 TAKE ONE TABLET BY MOUTH TWICE A DAY (IN THE MORNING AND BEFORE BEDTIME) 180 Tablet 3 02/23/2023 Suspended Additional Information hydroCHLOROthiazi de 12.5 MG Oral Capsule (Hydrodiuril)Michelle cations:History of petit-mal seizures Take 1 Capsule by mouth in the morning. 90 Capsule 1 03/02/2023 Suspended Additional Information Loratadine 10 MG Oral Tablet (Claritin)Indicat ions:Chronic cough Take 1 Tablet by mouth in the morning. 30 Tablet 11 05/01/2023 Suspended Additional Information Celecoxib 200 MG Oral Capsule (CeleBREX)Indicat ions:Migraine with aura and without status migrainosus, not intractable Take 1 Capsule by mouth in the morning. Every morning.. 30 Capsule 3 05/01/2023 Suspended Additional Information Pantoprazole Sodium 40 MG Oral Tablet Delayed Release (Protonix)Indicat ions:Gastroesopha geal reflux disease with esophagitis without hemorrhage TAKE ONE TABLET BY MOUTH EVERY MORNING 30 MINUTES BEFORE THE FIRST MEAL OF THE DAY. DO NOT CRUSH,SPLIT OR CHEW THE TABLET 30 Tablet 5 05/22/2023 Suspended Additional Information Proventil HFA 108 (90 Base) MCG/ACT Inhalation Aerosol SolutionIndicatio ns:Chronic cough Inhale 2 Puffs by mouth every 4 hours as needed for Wheezing, Shortness of Breath or Cough. 18 g 1 06/09/2023 Suspended Additional Information Fluticasone-Salme terol 250-50 MCG/ACT Inhalation Aerosol Powder Breath Activated (Advair Diskus)Indication s:Chronic cough INHALE ONE PUFF BY MOUTH EVERY MORNING AND ONE PUFF BEFORE BEDTIME 60 Each 5 06/11/2023 Suspended Additional Information Buprenorphine HCl 2 MG Sublingual Tablet Sublingual (Subutex) Place one-half tablet under the tongue in the morning and one-half tablet in the evening. Do all this for 21 days. 21 Tablet 07/07/2023 Suspended Additional Information HYDROmorphone HCl 2 MG Oral Tablet (Dilaudid) Take 1.5 Tablets by mouth every 4 hours as needed for moderate or severe pain 100 Tablet 07/07/2023 Suspended Additional Information Sulfamethoxazole- Trimethoprim 400-80 MG Oral Tablet (Bactrim) Take 1 Tablet by mouth in the morning. 30 Tablet 1 07/08/2023 Suspended Additional Information Fluconazole 200 MG Oral Tablet (Diflucan) Take 2 Tablets by mouth in the morning. 60 Tablet 1 07/08/2023 Suspended Additional Information Acyclovir 400 MG Oral Tablet (Zovirax) Take 1 Tablet by mouth in the morning and 1 Tablet before bedtime. 60 Tablet 2 07/07/2023 Suspended Additional Information Ciprofloxacin HCl 500 MG Oral Tablet (Cipro) Take 1 Tablet by mouth in the morning and 1 Tablet before bedtime. 60 Tablet 07/07/2023 Suspended Additional Information Sennosides-Docusa te Sodium 8.6-50 MG Oral Tablet (Senokot-S) Take 2 Tablets by mouth in the morning and 2 Tablets in the evening. 60 Tablet 1 07/07/2023 Suspended Additional Information Amoxicillin-Pot Clavulanate 875-125 MG Oral Tablet (Augmentin) Take 1 Tablet by mouth in the morning and 1 Tablet before bedtime. Do all this for 9 days. 18 Tablet 07/07/2023 Suspended Additional Information Allopurinol 300 MG Oral Tablet (Zyloprim) Take 1 Tablet by mouth daily in the morning. 30 Tablet 1 07/08/2023 Suspended Additional Information Naloxone HCl 4 MG/0.1ML Nasal Liquid (Narcan Nasal) Administer 1 nasal spray device into one nostril as needed for suspected opioid overdose. Seek medical help immediately. If no response after 2-3 minutes, administer second nasal spray device in other nostril. 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 30 Tablet 07/08/2023 Suspended Additional Information documented as of this encounter (statuses as of 07/13/2023) Active Problems Problem Noted Date Diagnosed Date Headache 07/13/2023 Chemotherapy-induced neutropenia 07/13/2023 Encounter for [...] as of this encounter (statuses as of 07/13/2023) Resolved Problems Problem Noted Date Diagnosed Date [...] as of this encounter (statuses as of 07/13/2023) Immunizations Name Administration Dates Next Due DT [...] Description 07/15/2023 11:30 AM EDT Laboratory Laboratory, [facility] [address] [place] [phone] [facility], Lab [address] [place] [address] 07/15/2023 12:30 PM EDT Office Visit Hematology/Oncolog y, [address] [place] [address] Lakeshia Stone CRNP [address] [place] [address] 07/17/2023 1:06 PM EDT Hospital Encounter OR [facility], Operating Room, [facility] - 4th Floor [address] [place] [address] Medhat Angel MD [address] [place] [address] [place] [address] 07/17/2023 1:06 PM EDT - 07/17/2023 2:05 PM EDT Surgery OR [facility], Operating Room, [facility] - 4th Floor [address] [place] [address] Medhat Angel MD [address] [place] [address] INSERT TUNNELED CENTRAL VENOUS ACCESS WITH SUBQ PORT 07/20/2023 1:40 PM EDT Office Visit Family Practice [facility], [place] [address] [place] [address] Kayla Reeder, [address] [facility] [place] [address] 07/22/2023 9:00 AM EDT Office Visit Palliative Medicine [facility] [address] [place] [address] Aury Silva MD [address] [place], [place] [address] [address] 07/22/2023 2:00 PM EDT Appointment Radiology, [address] [place] [address] 07/27/2023 8:00 AM EDT Laboratory Laboratory, [address] [place] [address] [facility], Lab [address] [place], [place] [address] [address] 07/27/2023 9:00 AM EDT Office Visit Hematology/Oncolog y, [facility] [address] [place] [address] Mike Chaudhary MD [address], [place] [phone] 08/12/2023 2:00 PM EDT Appointment Radiology, [place] [address] [place] [address] 08/26/2023 1:00 PM EDT Office Visit Sleep Disorders, [facility] [address] [place] [address] Dave Daigle PA-C [address] [place], [place] [phone] Scheduled Procedures Name Priority Associated Diagnoses Date/Ti [...] Activated Date Inactivated Comments 07/13/2023 4:38 AM This order ref lects the patients wishes and were consensually agreed upon. Question Answer Comments Discussion of Advance Directives occurred with: Patient * Full Code Date Activated Date Inactivated Comments 06/20/2023 10:27 PM 07/07/2023 5:41 PM This order r eflects the patients wishes and were consensually agreed upon. Question Answer Comments Discussion of Advance Directives occurred with: Patient Healthcare Agents on File Name Relationship Healthcare Agent [facility] Communication Trixie Le [facility] Repr esentative (appointed verbally by patient or by statute hierarchy) [email or web address] Care Teams Sharepoint Manager Relationship Specialty Start Date End Date Kayla Reeder DO [address] [facility] [place] [address] PCP - General Family Medicine 06/11/23 documented as of this encounter
--- OUTSIDE RECORDS SUMMARY | 2023-09-18 21:33 | External Medical Summary ---
Author Name Unknown Address Unknown Organization K1F:LABORATORY [facility] - [address] [place] [address] Laboratory Report Ordering Provider Test Date Status KASHIF ALDRIDGE 07/13/2023 11:53:00 Final Observation Date Value Abnormality Reference (Units ) Status WBC, Total 07/13/2023 11:53:00 0.42 Below lower panic limits 4.00-10.80 (K/uL) Final RBC 07/13/2023 11:53:00 3.54 4.50-5.25 (M/uL) Final Hemoglobin 07/13/2023 11:53:00 10.6 Below low normal 14.0-16.8 (g/dL) Final HCT 07/13/2023 11:53:00 30.3 Below low normal 40.0-48.4 (%) Final MCV 07/13/2023 11:53:00 85.6 82.0-99.5 (fL) Final MCH 07/13/2023 11:53:00 29.9 27.0-34.0 (pg) Final MCHC 07/13/2023 11:53:00 35.0 32.0-36.0 (g/dL) Final RDW 07/13/2023 11:53:00 12.3 11.5-15.5 (%) Final Platelets 07/13/2023 11:53:00 69 Below low normal 140-400 (K/uL) Final MPV 07/13/2023 11:53:00 11.0 6.6-11.1 (fL) Final Nucleated erythrocytes/100 leukocytes [Ratio] in Blood by Automated count 07/13/2023 11:53:00 0 <=0 (/100 WBCs) Final Performing Location LABORATORY [facility] - [address] [place] [address]
--- OUTSIDE RECORDS SUMMARY | 2023-09-18 21:33 | External Medical Summary ---
Author Name Unknown Address Unknown Organization K1F:LAB[facility]ATORY [facility] - [address] [place] [address] Laboratory Report Ordering Provider Test Date Status MATTI BARAJAS 07/15/2023 11:13:29 Final Observation Date Value Abnormality Reference (Units ) Status BUN 07/15/2023 11:13: 9 6-20 (mg/dL) Final Creatinine 07/15/2023 11:13: 1.0 0.6-1.2 (mg/dL) Final Glomerular filtration rate/1.73 sq M.predicted [Volume Rate/Area] in Serum, Plasma or Blood by Creatinine-based formula (CKD-EPI) 07/15/2023 11:13: >90 >=60 (mL/min) Final eGFR is calculated based on the CKD-EPI 2020 equation Sodium 07/15/2023 11:13: 138 135-146 (m mol/L) Final Potassium 07/15/2023 11:13:29 3.3 Below low normal 3.5 -5.1 (mmol/L) Final Cl 07/15/2023 11:13:29 103 98-107 (mm ol/L) Final CO2 07/15/2023 11:13:29 23 22-32 (mmo l/L) Final Anion gap 07/15/2023 11:13:29 12 7-15 (mmol /L) Final Glucose 07/15/2023 11:13:29 150 Above high normal 70 -120 (mg/dL) Final Albumin 07/15/2023 11:13:29 4.4 3.8-5.0 (g /dL) Final AST (Aspartate aminotransferase) 07/15/2023 11:13:29 26 10-50 (U/L) Fin al Result may be falsely elevat ed due to hemolysis. Alk Phos 07/15/2023 11:13: 126 35-130 (U/ L) Final Bilirubin, Total 07/15/2023 11:13:29 0.2 <=1 .2 (mg/dL) Final Calcium 07/15/2023 11:13:29 9.8 8.4-10.2 ( mg/dL) Final Protein 07/15/2023 11:13:29 7.6 6.0-8.3 (g /dL) Final ALT (Alanine aminotransferase) 07/15/2023 11:13:29 36 10-50 (U/L) Final Performing Location LABORATORY [facility] - [facility] [place] [address]
--- OUTSIDE RECORDS SUMMARY | 2023-09-18 21:33 | External Medical Summary ---
Author Name Unknown Address Unknown Organization K1F:LABORATORY [facility] - [address] [place] [address] Laboratory Report Ordering Provider Test Date Status KASHIF ALDRIDGE 07/13/2023 23:30:00 Final Observation Date Value Abnormality Reference (Units ) Status WBC, Total 07/13/2023 23:30:00 0.81 Below lower panic limits 4.00-10.80 (K/uL) Final RBC 07/13/2023 23:30:00 3.78 4.50-5.25 (M/uL) Final Hemoglobin 07/13/2023 23:30:00 11.3 Below low normal 14.0-16.8 (g/dL) Final HCT 07/13/2023 23:30:00 31.8 Below low normal 40.0-48.4 (%) Final MCV 07/13/2023 23:30:00 84.1 82.0-99.5 (fL) Final MCH 07/13/2023 23:30:00 29.9 27.0-34.0 (pg) Final MCHC 07/13/2023 23:30:00 35.5 32.0-36.0 (g/dL) Final RDW 07/13/2023 23:30:00 12.5 11.5-15.5 (%) Final Platelets 07/13/2023 23:30:00 74 Below low normal 140-400 (K/uL) Final MPV 07/13/2023 23:30:00 11.6 6.6-11.1 (fL) Final Nucleated erythrocytes/100 leukocytes [Ratio] in Blood by Automated count 07/13/2023 23:30:00 0 <=0 (/100 WBCs) Final Performing Location LAB[facility]ATORY [facility] - [address] [place] [address]
--- OUTSIDE RECORDS SUMMARY | 2023-09-18 21:33 | External Medical Summary ---
Author Name Unknown Address Unknown Organization K1F:LABORATORY [facility] - [address] [place] [address] Laboratory Report Ordering Provider Test Date Status MATTI BARAJAS 07/15/2023 11:13:29 Final Observation Date Value Abnormality Reference (Units ) Status WBC, Total 07/15/2023 11:13:29 5.20 4.00-10.80 (K/uL) Final RBC 07/15/2023 11:13:29 3.75 4.50-5.25 (M/uL) Final Hemoglobin 07/15/2023 11:13:29 11.3 Below low normal 14.0-16.8 (g/dL) Final HCT 07/15/2023 11:13:29 31.9 Below low normal 40.0-48.4 (%) Final MCV 07/15/2023 11:13:29 85.1 82.0-99.5 (fL) Final MCH 07/15/2023 11:13:29 30.1 27.0-34.0 (pg) Final MCHC 07/15/2023 11:13:29 35.4 32.0-36.0 (g/dL) Final RDW 07/15/2023 11:13:29 12.7 11.5-15.5 (%) Final Platelets 07/15/2023 11:13:29 107 Below low normal 140-400 (K/uL) Final MPV 07/15/2023 11:13:29 11.5 6.6-11.1 (fL) Final Nucleated erythrocytes/100 leukocytes [Ratio] in Blood by Automated count 07/15/2023 11:13:29 2 Above high normal <=0 (/100 WBCs) Final Performing Location LAB[facility]ATORY [facility] - [address] [place] [address]
--- OUTSIDE RECORDS SUMMARY | 2023-09-18 21:34 | External Medical Summary | Summary of Care ---
Author Name Unknown Organization [facility] Address [address] [place] [address] Phone [phone] Care Team Providers Care Registry Np Name Role Phone ReederMelissaie Tricia DO Primary Care Provider +1- [phone] Reason for Visit * Reason Onset Date Comments Scheduling 07/09/2023 Mediport inserti on Encounter Details Date Type Department Care Team ([facility] st Contact Info) Description 07/09/2023 Telephone Radiology, [facility] [address] [place] [address] Mirna Figueroa, RN Scheduling (Mediport insertion) Allergies No known active allergiesdocumented as of this encounter (statuses as of 07/09/2023) Medications Medication Sig Dispensed Refills Start Date [...] in the morning. 60 Tablet 07/08/2023 Active Acyclovir 400 MG Oral Tablet (Zovirax) Take 1 Tablet by mouth in the morning and 1 Tablet before bedtime. 60 Tablet 2 07/07/2023 Active Ciprofloxacin HCl 500 MG Oral Tablet (Cipro) Take 1 Tablet by mouth in the morning and 1 Tablet before bedtime. 60 Tablet 07/07/2023 Active Sennosides-Docusat e Sodium 8.6-50 MG [...] needed for Nausea. 30 Tablet 07/08/2023 Active documented as of this encounter (statuses as of 07/09/2023) Active Problems Problem Noted Date Diagnosed Date Encounter for palliative care 07/07/2023 Neoplastic (malignant) [...] as of this encounter (statuses as of 07/09/2023) Resolved Problems Problem Noted Date Diagnosed Date [...] as of this encounter (statuses as of 07/09/2023) Immunizations Name Administration Dates Next Due DT [...] No 06/20/2023 documented as of this encounter Miscellaneous Notes * Telephone Encounter - Mirna Figueroa RN - 07/09/2023 2:10 PM EDT Patient identified by: name and date of Person taught: Family member (Mother Trixie Bashir) METHOD: Lecture-telephone interview PATIENT INSTRUCTIONS GIVEN: - Medication Instructions Reviewed: May take all medications as usual morning of procedure - NPO Instructions Reviewed, pt to stop eating 8 hours prior to procedure and stop drinking 2 hoursprior to procedure. -Ur Coordinator required -Location and check-in instructions Verbalizes understanding of education: Yes Procedure date at time of Imaging Encounter: 07/17/23 What procedure is patient having? Mediport insertion Laterality confirmed as Not Applicable Does the patient have a yellow bar? did not The Family member was given the opportunity to ask questions concerning the procedure. Signature: Mirna Figueroa RN 07/09/2023 documented in this encounter Plan of Treatment Upcoming Encounters Date Type Department Care Team (Late st Contact Info) Description 07/15/2023 11:30 AM EDT Laboratory Laboratory, [address] [place] [phone] [facility], Lab [address] [place] [address] 07/15/2023 12:30 PM EDT Office Visit Hematology/Oncology, [address] [place] [address] Lakeshia Stone CRNP [address] [place] [address] 07/20/2023 1:40 PM EDT Office Visit Family Practice [address], [place] [address] [place] [address] Kayla Reeder DO [address] [place] [address] 07/22/2023 9:00 AM EDT Office Visit Palliative Medicine [facility] [address] [place] [address] Aury Silva MD [address] [place] [address] 07/22/2023 2:00 PM EDT Appointment Radiology, [address] [place] [phone] 07/27/2023 8:00 AM EDT Laboratory Laboratory, [address] [place] [address] [facility], Lab [address] [place] [address] 07/27/2023 9:00 AM EDT Office Visit Hematology/Oncology, [facility] [address] [place] [address] Mike Chaudhary MD [address] [place] [address] 08/12/2023 2:00 PM EDT Appointment Radiology, [place] [address] [place] [phone] 08/26/2023 1:00 PM EDT Office Visit Sleep Disorders, [facility] [address] [place] [address] Dave Daigle PA-C [address] [place] [address] Health Maintenance Due Date Last Done Comments [...] exists Depression Screening 07/07/2024 07/08/2023, 06/11/19 24 MENINGOCOCCAL (MENACTRA/MENVEO) Completed 04/09/2007 Albumin/Creatinine Ratio Discontinued 08/02/2021 GARDASIL-HPV IMMUNIZATION SERIES Aged Out No longer eligible based on patient's age to complete this topic documented as of this encounter Medical Devices Not on filedocumented as of this encounter Advance Directives * Full Code (Latest Code Status on File) Date Activated Date Inactivated Comments 06/20/2023 10:27 PM 07/07/2023 5:41 PM This order r eflects the patients wishes and were consensually agreed upon. Question Answer Comments Discussion of Advance Directives occurred with: Patient Healthcare Agents on File Name Relationship Healthcare Agent Relationshi p Communication Trixie Le [facility] Repr esentative (appointed verbally by patient or by statute hierarchy) [email or web address] Care Teams Registry Np Relationship Specialty Start Date End Date Kayla Reeder DO [address] [place] [place] [address] PCP - General Family Medicine 06/11/23 documented as of this encounter
--- OUTSIDE RECORDS SUMMARY | 2023-09-18 21:34 | External Medical Summary ---
Author Name Unknown Address Unknown Organization K1F:LAB[facility]ATORY [facility] - [address] [place] [address] Laboratory Report Ordering Provider Test Date Status RITA BUSTOS 07/12/2023 23:52:39 Final Observation Date Value Abnormality Reference (Units ) Status Magnesium 07/12/2023 23:52:39 2.0 1.5-2.6 (m g/dL) Final Performing Location LAB[facility]ATORY [facility] - [address] [place] [address]
--- OUTSIDE RECORDS SUMMARY | 2023-09-18 21:34 | External Medical Summary ---
Author Name Unknown Address Unknown Organization K1F:LABORATORY [facility] - [address] [place] [address] Laboratory Report Ordering Provider Test Date Status AKASHDIMASGiselle 07/12/2023 23:52:39 Final Observation Date Value Abnormality Reference (Units ) Status Uric Acid 07/12/2023 23:52:39 3.8 3.4-7.0 (m g/dL) Final Performing Location LAB[facility]ATORY [facility] - [address] [place] [address]
--- OUTSIDE RECORDS SUMMARY | 2023-09-18 21:34 | External Medical Summary ---
Author Name Unknown Address Unknown Organization K1F:LABORATORY [facility] - [address] [place] [address] Laboratory Report Ordering Provider Test Date Status RITA BUSTOS 07/12/2023 23:52:39 Final Observation Date Value Abnormality Reference (Units ) Status WBC, Total 07/12/2023 23:52:39 0.47 Below lower panic limits 4.00-10.80 (K/uL) Final RBC 07/12/2023 23:52:39 4.15 4.50-5.25 (M/uL) Final Hemoglobin 07/12/2023 23:52:39 12.6 Below low normal 14.0-16.8 (g/dL) Final HCT 07/12/2023 23:52:39 35.1 Below low normal 40.0-48.4 (%) Final MCV 07/12/2023 23:52:39 84.6 82.0-99.5 (fL) Final MCH 07/12/2023 23:52:39 30.4 27.0-34.0 (pg) Final MCHC 07/12/2023 23:52:39 35.9 32.0-36.0 (g/dL) Final RDW 07/12/2023 23:52:39 12.4 11.5-15.5 (%) Final Platelets 07/12/2023 23:52:39 79 Below low normal 140-400 (K/uL) Final MPV 07/12/2023 23:52:39 10.5 6.6-11.1 (fL) Final Nucleated erythrocytes/100 leukocytes [Ratio] in Blood by Automated count 07/12/2023 23:52:39 0 <=0 (/100 WBCs) Final Performing Location LABORATORY [facility] - [address] [place] [address]
--- OUTSIDE RECORDS SUMMARY | 2023-09-18 21:34 | External Medical Summary ---
Author Name Unknown Address Unknown Organization K1F:LAB[facility]ORY [facility] - [address] [place] [address] Laboratory Report Ordering Provider Test Date Status RITA BUSTOS 07/12/2023 23:52:39 Final Observation Date Value Abnormality Reference (Units ) Status Phosphate 07/12/2023 23:52:39 2.6 2.5-4.8 (m g/dL) Final Performing Location LAB[facility]ORY [facility] - [address] [place] [address]
--- OUTSIDE RECORDS SUMMARY | 2023-09-18 21:34 | External Medical Summary ---
Author Name Unknown Address Unknown Organization K1F:LABORATORY [address] [place] [address] Laboratory Report Ordering Provider Test Date Status RITA BUSTOS 07/13/2023 01:29:30 Final Observation Date Value Abnormality Reference (Units ) Status Bacteria identified in Specimen by Culture 07/13/2023 01:29:30 No growth Final Test: Culture, Blood
Sp ecimen Source: Blood, Venous
Specimen Type: Blood
Specimen Date: 07/13/2023128
Result Date: 07/18/2023 020
Result Status: Final result
Resulting Lab: LABORATORY [facility]
[address] [place] [address]
[place] [address]

CULTURE

No growth

null Performing Location LABORATORY [address] [place] [address]
--- OUTSIDE RECORDS SUMMARY | 2023-09-18 21:34 | External Medical Summary | Summary of Care ---
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) Procedures DC DOXORUBIC HCL 10 MG VL CHEMO DC VINCRISTINE SULFATE 1 MG INJ DC FOSAPREPITANT INJECTION DC ETOPOSIDE 10 MG INJ DC INJECTION, RITUXIMAB-PVVR, BIOSIMILAR, (RUXIENCE), 10 MG DC INJ, CYCLOPHOSPHAMIDE, NOS DC INJ, NYVEPRIA [id number],[id number],J1453,J9181,Q5119 ,[id number] [place] [id number] ONLY MED FOR OUTPATIENT IN THIS REFERRAL Yaz Molina MD [address] [place] [address] Anc Hem/Onc Gl 400 [place] [address] Referral ID Status Reason Start Date Expiration Date V isits Requested Visits Authorized [id number] Authorized 07/02/2023 01/02/2024 [id number] Encounter Details Date Type Department Care Team ([facility] st Contact Info) Description 07/09/2023 8:00 AM EDT Immunization/I njection Hematology/Oncology Treatment, [facility] 400 [place] [address] [facility], Chair1 Hem Onc [address] [place] [place] [address] Burkitt lymphoma of intra-abdominal [...] 07/05/2021 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 Overview: Follows in [place] q6m History of petit-mal seizures 03/07/2016 Tobacco [...] Description 07/15/2023 11:30 AM EDT Laboratory Laboratory, [facility] [address] [facility] [address] [facility] [place] [address] 07/15/2023 12:30 PM EDT Office Visit Hematology/Oncology, [facility] [place] [address] Lakeshia Stone CRNP [address] [facility] [place] [address] 07/20/2023 1:40 PM EDT Office Visit [facility] [address], [place] [address] [place] [address] Kayla Reeder DO [address] [facility] [place] [address] 07/22/2023 9:00 AM EDT Office Visit Palliative Medicine [facility] [address] [place] [address] Aury Silva MD [address] [place] [address] 07/22/2023 2:00 PM EDT Appointment Radiology, [address] [address] 07/27/2023 8:00 AM EDT Laboratory Laboratory, [address] [phone] [facility], Lab [address] [place] [address] 07/27/2023 9:00 AM EDT Office Visit Hematology/Oncology, [address] [address] Mike Chaudhary MD [address] [place] [phone] 08/12/2023 2:00 PM EDT Appointment Radiology, [address] [phone] 08/26/2023 1:00 PM EDT Office Visit Sleep Disorders, [address] [phone] Dave Daigle PA-C [address] [place] [phone] Health Maintenance Due Date Last Done Comments [...] Agents on File Name Relationship Healthcare Agent [facility] p Communication Trixie Le [facility] Care Repr esentative (appointed verbally by patient or by statute hierarchy) [email or web address] Care Teams Geographic Information Systems Director Relationship Specialty Start Date End Date Kayla Reeder DO [address] [facility] [place]ST [place] [address] PCP - General Family Medicine 06/11/23 documented as of this encounter
--- OUTSIDE RECORDS SUMMARY | 2023-09-18 21:34 | External Medical Summary ---
Author Name Unknown Address Unknown Organization K1F:LABORATORY [facility] - [address] [address] Laboratory Report Ordering Provider Test Date Status RITA BUSTOS 07/12/2023 23:52:39 Final Observation Date Value Abnormality Reference (Units ) Status CRP, low-sensitivity 07/12/2023 23:52:39 22 Above high normal <=5 (mg/L) Final Performing Location LABORATORY GL - [address] [address]
--- OUTSIDE RECORDS SUMMARY | 2023-09-18 21:34 | External Medical Summary ---
Author Name Unknown Address Unknown Organization K1F:LABORATORY [address] [address] Laboratory Report Ordering Provider Test Date Status RITA BUSTOS 07/13/2023 02:31:00 Final Observation Date Value Abnormality Reference (Units ) Status Bacteria identified in Specimen by Culture 07/13/2023 02:31:00 No growth Final Test: Culture, Blood (Site 2)
Specimen Source: Blood, Venous
Specimen Type: Blood
Specimen Date: 07/13/2023 0231
Result Date: 07/18/2023 0301
Result Status: Final result
Resulting Lab: LABORATORY [facility]
[address] [place] [address]
[place] [address]

CULTURE

No growth

null Performing Location LABORATORY [address] [place] [address]
--- OUTSIDE RECORDS SUMMARY | 2023-09-18 21:34 | External Medical Summary ---
Author Name Unknown Address Unknown Organization K1F:[facility]ORATORY [facility] - [address] [facility] [place] [address] Laboratory Report Ordering Provider Test Date Status RITA BUSTOS 07/12/2023 23:52:39 Final Observation Date Value Abnormality Reference (Units ) Status BUN 07/12/2023 23:52:39 13 6-20 (mg/dL) Final Creatinine 07/12/2023 23:52:39 0.7 0.6-1.2 (mg/dL) Final Glomerular filtration rate/1.73 sq M.predicted [Volume Rate/Area] in Serum, Plasma or Blood by Creatinine-based formula (CKD-EPI) 07/12/2023 23:52:39 >90 >=60 (mL/min) Final eGFR is calculated based on the CKD-EPI 2020 equation Sodium 07/12/2023 23:52:39 135 135-146 (m mol/L) Final Potassium 07/12/2023 23:52:39 3.9 3.5-5.1 (m mol/L) Final Cl 07/12/2023 23:52:39 104 98-107 (mm ol/L) Final CO2 07/12/2023 23:52:39 18 Below low normal 22- 32 (mmol/L) Final Anion gap 07/12/2023 23:52:39 13 7-15 (mmol /L) Final Glucose 07/12/2023 23:52:39 124 Above high normal 70 -120 (mg/dL) Final Albumin 07/12/2023 23:52:39 4.3 3.8-5.0 (g /dL) Final AST (Aspartate aminotransferase) 07/12/2023 23:52:39 17 10-50 (U/L) Fin al Result may be falsely elevat ed due to hemolysis. Alk Phos 07/12/2023 23:52:39 117 35-130 (U/ L) Final Bilirubin, Total 07/12/2023 23:52:39 0.4 <=1 .2 (mg/dL) Final Calcium 07/12/2023 23:52:39 9.7 8.4-10.2 ( mg/dL) Final Protein 07/12/2023 23:52:39 7.6 6.0-8.3 (g /dL) Final ALT (Alanine aminotransferase) 07/12/2023 23:52:39 44 10-50 (U/L) Final Performing Location LABORATORY [facility] - [facility] [place] [address]
--- OUTSIDE RECORDS SUMMARY | 2023-09-18 21:34 | External Medical Summary | Summary of Care ---
Author Name Unknown Organization [facility] Address [address] [place] [address] Phone [phone] Care Team Providers Care Route Cdl Driver Name Role Phone ReederMelissaie Tricia DO Primary Care Provider +1- [phone] Reason for Visit * Reason Onset Date Comments Information 07/03/2023 [facility] loca tion Encounter Details Date Type Department Care Team ([facility] Contact Info) Description 07/03/2023 Telephone Hematology Oncology [facility] [address] [place] [address] Mike Chaudhary MD [address] [place] [address] Information ([facility] location) Allergies No known active allergiesdocumented as of this encounter (statuses as of 07/10/2023) Medications Medication Sig Dispensed Refills Start Date [...] BEFORE BEDTIME 60 Each 5 4 Active Acetaminophen-Co deine 300-30 MG Oral TabletIndication s:Cerebral vasculitis 2 07/07/19 24 Discontinued oxyCODONE-Acetam inophen 5-325 MG Oral Tablet (Percocet)Indica tions:Retroperit jones mass Take 1 Tablet by mouth every 6 hours as needed (Pain). 30 Tablet 4 07/07/19 24 Discontinued Ondansetron HCl 4 MG Oral Tablet Take 1 Tablet by mouth every 6 hours as needed for Nausea. 30 Tablet 4 07/08/19 24 Discontinued(Ref ill) documented as of this encounter (statuses as of 07/10/2023) Active Problems Problem Noted Date Diagnosed Date [...] as of this encounter (statuses as of 07/10/2023) Resolved Problems Problem Noted Date Diagnosed Date [...] as of this encounter (statuses as of 07/10/2023) Immunizations Name Administration Dates Next Due DT [...] encounter Miscellaneous Notes * Telephone Encounter - Maricarmen Nunez RN - 07/03/2023 11:37 AM EDT Patient Name: Farhad Franco Cancer Diagnosis: Burkitt's Lymphoma C83.73 Attending Oncologist: Mike Chaudhary MD - [facility] location Medication Requested: EPOCH 5 cycles outpatient Route of Infusion: Mediport - to be placed on discharge Length of Infusion: 96 hours Start Date: 07/26/26 Home Care needed: No. Please note ----- for [facility] location documented in this encounter Plan of Treatment Upcoming Encounters Date Type Department Care Team (Latest Contact Info) Description 07/15/2023 11:30 AM EDT Laboratory Laboratory, [address] [address] [facility], Lab [address] [place] [address] 07/15/2023 12:30 PM EDT Office Visit Hematology/Oncolog y, [address] [place] [address] Lakeshia Stone CRNP [address] [place] [address] 07/17/2023 1:06 PM EDT Hospital Encounter OR [facility], Operating Room, [facility] - 4th Floor [facility] [place] [address] Medhat Angel MD [address] [place] [address] 07/17/2023 1:06 PM EDT - 07/17/2023 2:05 PM EDT Surgery OR [facility], Operating Room, [facility] - 4th Floor [address] [place] [address] Medhat Angel MD [address] [place] [address] INSERT TUNNELED CENTRAL VENOUS ACCESS WITH SUBQ PORT 07/20/2023 1:40 PM EDT Office Visit [facility] [address], [place] [address] [place] [address] Kayla Reeder DO [address] [place] [address] 07/22/2023 9:00 AM EDT Office Visit Palliative Medicine [facility] [address] [place] [address] Aury Silva MD [address] [place] [address] 07/22/2023 2:00 PM EDT Appointment Radiology, [address] [address] 07/27/2023 8:00 AM EDT Laboratory Laboratory, [address] [phone] [facility], Lab [address] [place] [address] 07/27/2023 9:00 AM EDT Office Visit Hematology/Oncolog y, [address] [address] Mike Chaudhary MD [address] [place] [address] 08/12/2023 2:00 PM EDT Appointment Radiology, [address] [phone] 08/26/2023 1:00 PM EDT Office Visit Sleep Disorders, [address] [address] Dave Daigle PA-C [address] [place] [address] Scheduled Procedures Name Priority Associated Diagnoses [...] Agents on File Name Relationship Healthcare Agent [facility] Communication Trixie Bashir [facility] Care Repr esentative (appointed verbally by patient or by statute hierarchy) [email or web address] Care Teams Route Cdl Driver Relationship Specialty Start Date End Date Kayla Reeder DO [address] [facility] ERNST [place] [phone] PCP - General Family Medicine 06/11/23 documented as of this encounter
--- OUTSIDE RECORDS SUMMARY | 2023-09-18 21:34 | External Medical Summary | Summary of Care ---
Author Name Unknown Organization [facility] Address [address] [place] [address] Phone [phone] Care Team Providers Care Cio Name Role Phone Kayla Reeder DO Primary Care Provider +1- [phone] Reason for Visit * Reason Onset Date Comments Hospital Follow-Up 07/08/2023 Encounter Details Date Type Department Care Team ([facility] st Contact Info) Description 07/08/2023 Telephone Hematology/Oncology Treatment, [facility] [address] [place] [address] Mike Chaudhary MD [address] [place] [address] Hospital Follow-Up Allergies No known active allergiesdocumented as of this encounter (statuses as of 07/08/2023) Medications Medication Sig Dispensed Refills Start Date [...] as of this encounter (statuses as of 07/08/2023) Active Problems Problem Noted Date Diagnosed Date [...] as of this encounter (statuses as of 07/08/2023) Resolved Problems Problem Noted Date Diagnosed Date [...] as of this encounter (statuses as of 07/08/2023) Immunizations Name Administration Dates Next Due DT [...] Telephone Encounter - Shannon Kendall RN - 07/08/2023 3:13 PM EDT HEMATOLOGY/ONCOLOGY HOSPITAL DISCHARGE FOLLOW-UP Call placed to patient to follow up after hospital discharge. Dates patient was admitted: 06/20/23 to 07/07/23 with a primary diagnosis of EBV + primary lymphoma ofintra-abdominal site, Burkitt Lymphoma. Currently has no complaints. All current medications reviewed with patient. Patient verbalizes understanding of regimen. Post discharge hospital visit is scheduled and patient is aware. Appointment in the clinic tomorrow at 0800 for injection. Appointment on 07/14 for labs at 1130, [place]hia at 1230. Appointment with Dr. Chaudhary 07/27/23 0900, labs at 0800. No additional needs/concerns voiced at this time. documented in this encounter Plan of Treatment Upcoming Encounters Date Type Department Care Team (Late st Contact Info) Description 07/09/2023 8:00 AM EDT Immunization/Injectio n Hematology/Oncology Treatment, [address] [address] [facility], Chair1 Hem Onc [address] [place] [address] 07/15/2023 11:30 AM EDT Laboratory Laboratory, [address] [place] [phone] [facility], Lab [address] [place] [address] 07/15/2023 12:30 PM EDT Office Visit Hematology/Oncology, [address] [place] [address] Lakeshia Stone CRNP [address] [place] [address] 07/20/2023 1:40 PM EDT Office Visit [facility] [place] [address] [place] [address] [place] [address] Kayla Reeder DO [address] [place] [address] [place] [address] 07/22/2023 9:00 AM EDT Office Visit Palliative Medicine [facility] 200 [place] [address] Aury Silva MD 400 [place] [address] 07/22/2023 2:00 PM EDT Appointment Radiology, [address] [phone] 07/27/2023 8:00 AM EDT Laboratory Laboratory, [address] [address] [facility], Lab [address] [place] [address] 07/27/2023 9:00 AM EDT Office Visit Hematology/Oncology, [address] [address] Mike Chaudhary MD [address] [place] [address] 08/12/2023 2:00 PM EDT Appointment Radiology, [address] [address] 08/26/2023 1:00 PM EDT Office Visit Sleep Disorders, [address] [address] Dave Daigle PA-C [address] [place] [address] Scheduled Orders Name Type Priority Associated Diagnoses Orde r Schedule CBC WITH WBC DIFFERENTIAL Lab STAT 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) Expected: 07/27/2023 (Approximate), Expires: 07/07/2024 COMPREHENSIVE METABOLIC PANEL Lab STAT 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) Expected: 07/27/2023 (Approximate), Expires: 07/07/2024 URIC ACID Lab STAT 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) Expected: 07/27/2023 (Approximate), Expires: 07/07/2024 LD Lab STAT 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
--- OUTSIDE RECORDS SUMMARY | 2023-09-18 21:34 | External Medical Summary | Summary of Care ---
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) [...] No 06/20/2023 documented as of this encounter Plan of Treatment Upcoming Encounters Date Type Department Care Team (Late st Contact Info) Description 07/09/2023 8:00 AM EDT Immunization/Injectio n Hematology/Oncology Treatment, [address] [place] [address] [facility], Chair1 Hem Onc [address] [place] [address] 07/15/2023 11:30 AM EDT Laboratory Laboratory, [address] [place] [phone] [facility], Lab [address] [place] [address] 07/15/2023 12:30 PM EDT Office Visit Hematology/Oncology, [address] [address] Lakeshia Stone CRNP [address] [place] [address] 07/20/2023 1:40 PM EDT Office Visit Family [facility] [address], [place] [address] [place] [address] Kayla Reeder DO [address] [place] [address] 07/22/2023 9:00 AM EDT Office Visit Palliative Medicine [facility] [address] [place] [address] Aury Silva MD [address] [place] [address] 07/22/2023 2:00 PM EDT Appointment Radiology, [place] [address] [place] [phone] 07/27/2023 8:00 AM EDT Laboratory Laboratory, [address] [address] [facility], Lab [address] [place] [address] 07/27/2023 9:00 AM EDT Office Visit Hematology/Oncology, [address] [address] Mike Chaudhary MD [address] [place] [address] 08/12/2023 2:00 PM EDT Appointment Radiology, [address] [address] 08/26/2023 1:00 PM EDT Office Visit Sleep Disorders, [facility] [address] [place] [address] Dave Daigle PA-C [address] [place], [place] [phone] Scheduled Orders Name Type Priority Associated Diagnoses Orde r Schedule CYTOLOGY Pathology Routine 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
--- OUTSIDE RECORDS SUMMARY | 2023-09-18 21:34 | External Medical Summary | Summary of Care ---
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 60 Tablet 07/07/2023 Active Sennosides-Docusa te Sodium 8.6-50 MG Oral [...] needed for Nausea. 30 Tablet 07/08/2023 Active Ondansetron HCl 4 MG Oral Tablet Take 1 Tablet by mouth every 6 hours as needed for Nausea. 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 He does not have any zofran at home. He will need a refill [place]. Thank you! documented in this encounter Plan of Treatment Upcoming Encounters Date Type Department Care Team (Late st Contact Info) Description 07/09/2023 8:00 AM EDT Immunization/Injectio n Hematology/Oncology Treatment, [address] [place] [address] [facility], Chair1 Hem Onc [address] [place], [place] [address] [place] [address] 07/15/2023 11:30 AM EDT Laboratory Laboratory, [address] [phone] [facility], Lab [address] [place], [place] [address] 07/15/2023 12:30 PM EDT Office Visit Hematology/Oncology, [address] [place] [address] Lakeshia Stone CRNP [address] [facility] [address] 07/20/2023 1:40 PM EDT Office Visit Family Practice [address], [place] [address] [place] [place] [address] Kayla Reeder DO [address] [place] [address] 07/22/2023 9:00 AM EDT Office Visit Palliative Medicine [facility] 200 [place] [address] Aury Silva MD 400 [facility] [place] [address] 07/22/2023 2:00 PM EDT Appointment Radiology, [address] [place] [phone] 07/27/2023 9:00 AM EDT Office Visit Hematology/Oncology, [facility] [address] [place] [address] Mike Chaudhary MD [address] [place] [address] 08/12/2023 2:00 PM EDT Appointment Radiology, [place] [address] [place] [address] 08/26/2023 1:00 PM EDT Office Visit Sleep Disorders, [address] [address] Dave Daigle PA-C [address] [place], [place] [phone] Health Maintenance Due Date Last Done Comments [...] as of this encounter Visit Diagnoses Diagnosis Need for case management follow-up- Primary Retroperitoneal mass Abdominal or pelvic swelling, mass or lump, unspecified site 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
--- OUTSIDE RECORDS SUMMARY | 2023-09-18 21:34 | External Medical Summary ---
Author Name Unknown Address Unknown Organization K1F:LABORATORY [facility] - [address] [address] Laboratory Report Ordering Provider Test Date Status RITA BUSTOS 07/12/2023 23:52:39 Final Warfarin Therapy
INR: 2 .0-3.0 conventional anticoagulation
INR: 2.5- 3.5 high intensity anticoagulation Observation Date Value Abnormality Reference (Units ) Status PT 07/12/2023 23:52:39 13.7 11.6-15.2 (seconds) Final INR 07/12/2023 23:52:39 1.1 0.8-1.2 Final Performing Location LABORATORY [facility] - [address] [address]
--- OUTSIDE RECORDS SUMMARY | 2023-09-18 21:34 | External Medical Summary ---
Author Name Unknown Address Unknown Organization K1F:LABORATORY [facility] - [address] [address] Laboratory Report Ordering Provider Test Date Status RITA BUSTOS 07/12/2023 23:52:39 Final Observation Date Value Abnormality Reference (Units ) Status COMMENT 07/12/2023 23:52:39 WBC < 0.60, WBC differential cancelled. Please call Client Services if differential is required. Final Performing Location LABORATORY [facility] - [address] [place] [address]
--- OUTSIDE RECORDS SUMMARY | 2023-09-18 21:34 | External Medical Summary | Summary of Care ---
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 He does not have any zofran at home. He will need a refill [place]. Thank you! documented in this encounter Plan of Treatment Upcoming Encounters Date Type Department Care Team (Late st Contact Info) Description 07/09/2023 8:00 AM EDT Immunization/Injectio n Hematology/Oncology Treatment, [address] [place] [address] [facility], Chair1 Hem Onc [address] [place], [place] [address] [address] 07/15/2023 11:30 AM EDT Laboratory Laboratory, [address] [id number] [facility], Lab [address] [place], [place] [address] [address] 07/15/2023 12:30 PM EDT Office Visit Hematology/Oncology, [address] [place] [address] Lakeshia Stone [facility] [address] [facility] [address] 07/20/2023 1:40 PM EDT Office Visit Family Practice [address], [place] [address] [place] [address] Kayla Reeder DO [address] [place] [address] 07/22/2023 9:00 AM EDT Office Visit Palliative Medicine [facility] [address] [facility] [place] [address] Aury Silva MD [address] [facility] [place] [address] 07/22/2023 2:00 PM EDT Appointment Radiology, [address] [place] [id number] 07/27/2023 9:00 AM EDT Office Visit Hematology/Oncology, [facility] [address] [place] [address] Mike Chaudhray MD [address] [place] [address] 08/12/2023 2:00 PM EDT Appointment Radiology, [place] [address] [place] [address] 08/26/2023 1:00 PM EDT Office Visit Sleep Disorders, [address] [address] Dave Daigle PA-C [address] [place], [place] [phone] Health Maintenance Due Date Last Done Comments [...] [facility] p Communication Trixie Le [employer] esentative (appointed verbally by patient or by statute hierarchy) [email or web address] Care Teams Cpo Relationship Specialty Start Date End Date Kayla Reeder DO [address] [facility] [place] [address] PCP - General Family Medicine 06/11/23 documented as of this encounter
--- OUTSIDE RECORDS SUMMARY | 2023-09-18 21:35 | External Medical Summary | Summary of Care ---
Author Name Unknown Organization [facility] Address [address] [place] [address] Phone [phone] Care Team Providers Care Outreach Nurse Name Role Phone Kayla Reeder DO Primary Care Provider [phone] Reason for Referral * Precert (Within 10 days (routine)) - Pending Review Specialty Diagnoses / Procedures Referred By Contac t Referred To Contact Radiology Diagnoses B-cell lymphoma of intra-abdominal lymph nodes, unspecified B-cell lymphoma type (HCC) Procedures IR VENOUS ACCESS Jamal Malcolm MD [address] [place] [address] Referral ID Status Reason Start Date Expiration Date V isits Requested Visits Authorized [id number] Pending Review 07/10/2023 999 999 * Precert (Within 10 days (routine)) - Pending Review Specialty Diagnoses / Procedures Referred By Contac t Referred To Contact Radiology Diagnoses B-cell lymphoma of intra-abdominal lymph nodes, unspecified B-cell lymphoma type (HCC) Procedures IR VENOUS ACCESS Kike Bach PA-C [address] [place] [address] Referral ID Status Reason Start Date Expiration Date V isits Requested Visits Authorized [id number] Pending Review 07/16/2023 999 999 Reason for Visit * Auth/Cert Specialty Diagnoses / Procedures Referred By Kala t Referred To Contact Diagnoses intraabdominal mass Inocente Villafuerte, [address] [place] [address] Admissions [facility] [place] [address] [place] [address] Referral ID Status Reason Start Date Expiration Date Visits Re quested Visits Authorized [id number] Encounter Details Date Type Department Care Team (Latest Contact Info) Description 06/20/2023 10:23 PM EDT - 07/07/2023 1:41 PM EDT Hospital En[id number] [address] [place] [address] Inocente Villafuerte, [address] [place] [phone] Na Fisher, [facility] [place] [address] Jakub Argueta [address] [place] [address] Jacob Sequeira [address] [place] [address] Rufus Lowe MD [address] [place] [id number] Tamiko Lowe MD [address] [place] [phone] Drake Pyle MD [facility] [place] [address] Yaz Molina MD [facility] [place] [address] EKG Report Discharge Disposition: Home - Self Care Allergies [...] BEFORE BEDTIME 60 Each 5 06/11/2023 Active Ondansetron HCl 4 MG Oral Tablet Take 1 Tablet by mouth every 6 hours as needed for Nausea. 30 Tablet 06/18/2023 Active Buprenorphine HCl 2 MG Sublingual Tablet [...] Tablet before bedtime. 60 Tablet 07/07/2023 Active Sennosides-Docus ate Sodium 8.6-50 MG [...] other nostril. 2 Each 3 07/07/2023 Active Acetaminophen-Co deine 300-30 MG Oral TabletIndication s:Cerebral vasculitis 09/20/2021 4 Discontinued oxyCODONE-Acetam inophen 5-325 MG Oral Tablet (Percocet)Indica tions:Retroperit jones mass Take 1 Tablet by mouth every 6 hours as needed (Pain). 30 Tablet 06/11/2023 4 Discontinued Buprenorphine HCl 2 MG Sublingual Tablet Sublingual (Subutex) Place 0.5 (one-half) tablet under the tongue three times a day (morning, noon, before bedtime) for 1 day. 2 Tablet 07/02/2023 4 documented as of this encounter (statuses [...] Answer Date Recorded PHQ Adult Total Score 0 06/11/2023 Hunger Vital Sign Answer Date Recorded Within the past 12 months, y ou worried that your food would run out before you got the money to buy more. Never true 06/11/19 24 Within the past 12 months, t he food you bought just didn't last and you didn't have money to get more. Never true 06/11/2023 Sex and Gender Information Value Date Recorded Sex Assigned at Male 06/11/2023 12:02 PM EDT Gender Identity Male 06/11/2023 12:02 PM EDT Sexual Orientation Straight 06/11/2023 12 :02 PM EDT Job Start Date Occupation Industry Not on file Not on file Not on file documented as of this encounter Last Filed Vital Signs Vital Sign Reading Time Taken Comments Blood Pressure 119/71 07/07/2023 10:17 AM EDT Pulse 95 07/07/2023 10:17 AM EDT Temperature 36.9 C (98.5 F) 07/07/2023 1 0:17 AM EDT Respiratory Rate 18 07/07/2023 10:1 7 AM EDT Oxygen Saturation 97% 07/07/2023 10: 17 AM EDT Inhaled Oxygen Concentration - - Weight 122.6 kg (270 lb 4.8 oz) 07/07/2023 2:37 AM EDT Height 180.3 cm (5' 11") 06/23/2023 6:17 PM EDT Body Mass Index 37.7 06/23/2023 6:17 PM EDT documented in this encounter Functional [...] Discharge Instructions * Discharge Instr - AVS* Jamal Retana MD - 07/07/2023 11:48 AM EDT Discharge Date: 07/07/2023 You may call Doctor of the department of Hematology and oncology at [phone] during business hours for any questions or test results. For after- hours emergencies call [phone] and have your doctor paged. The information below provides you with the instructions and the list of medications you need to betaking following discharge from the hospital. If you have any questions, please ask before leaving.Please carry this letter with you when you see your doctor in the clinic. If you have questions, you can reach us at the numbers above. 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 Before the diagnosis you are cytoreduced with pre phase cytoxan and steroids. Your doctors during this hospitalization included: , , Dr. Cabello Your primary diagnosis at discharge was Burkitt's Lymphoma Inpatient test results pending: None Operations & Procedures: None Complications: none significant Advance Directive Documented: Advance Directive Does the Patient have an Advance Directive? No Diet: Neutropenia diet Activity: As tolerated Driving: Do not drive. Date you may return to work or school: N/A See your primary care physician (Kayla Reeder DO) in 10 day(s). Follow up with [facility] for your G-CSF injection on 07/09/2023 Follow up with [facility] on . Follow up with on 07/27/2023 Special Instructions: Call if you have chills or a fever of greater than or equal to 100.5 degrees, any uncontrolled nausea, vomiting, bleeding, pain, diarrhea, constipation or shortness of breath. Thursday through Thursday, 8 am to 4 pm, call [phone] with any problems. After 4 pm and weekends, please call [phone] ([employer]) and ask for the Heater Operator or Oncologist branch operation evaluation manager. --- documented in this encounter Progress Notes * Mike Valdez MD - 07/07/2023 8:54 AM EDT PROGRESS NOTE - Palliative Medicine [facility] [address] Name: Farhad Franco Location: [facility] B846/A Date: 07/07/2023 Time: 8:54 AM SUBJECTIVE: Patient seen and chart reviewed. Family present: yes, mother Nane-Marie No acute events overnight. He is s/p RCHOP chemo late last week for Burkitts lymphoma and had last dose of Etoposide yesterday. Tolerating buprenorphine 1 mg SL BID (reduced this past weekend for sleepiness). He took 1 dose of hydromorphone 3 mg in the past 24 hours and did not need IV morphine (ordered for BTP only). He has been ambulating in his room throughout the day. Voiding well. Self-reported last BM 07/06 (not all BM being recorded). Not constipated. He is eating well. Nausea has not been an issue. No new complaints. OBJECTIVE: Most Recent Vital Signs: BP: 120 mmHg/77 mmHg (07/07/23 0849) Pulse: 97 (07/07/23 08) Temp: 36.67 C (07/07/23631) Temp Summary: Temp Min: 36.2 C (97.1 F) Max: 37 C (98.6 F) SpO2: 96 % (07/07/23631) O2 flow rate: 3 L/MIN (06/22/23 1230) Supplemental O2 Delivery: Room Air, None (07/07/23631) Vital Signs Last 24 Hours: Systolic BP: Most Recent Systolic BP Av.6 mmHg Min: 100 mmHg Max: 130 mmHg Temperature: Most Recent Temperature Av.7 C Min: 36.17 C Max: 37 C Pulse: Pulse Av.6 Min: 70 Max: 97 Respirations: Resp Av.3 Min: 18 Max: 20 SpO2: SpO2 Av.7 % Min: 94 % Max: 97 % Constitutional: No acute distress HEENT: Moist mucous membranes. Chest: No increased work of breathing Neuro: Mild intellectual disability, speaks fluently but slowly Psych: Flat affect LABS REVIEWED: yes, reviewed Latest Reference Range & Units 07/07/23 04:59 Sodium 135 - 146 mmol/L 139 Potassium 3.5 - 5.1 mmol/L 3.9 Chloride 98 - 107 mmol/L 106 CO2 22 - 32 mmol/L 25 BUN 6 - 20 mg/dL 16 Creatinine 0.6 - 1.2 mg/dL 0.8 Estimated Glomerular Filtration Rate >=60 mL/min >90 Anion Gap 7 - 15 mmol/L 8 Glucose 70 - 120 mg/dL 110 Calcium 8.4 - 10.2 mg/dL 9.4 Magnesium 1.5 - 2.6 mg/dL 2.3 Phosphorus 2.5 - 4.8 mg/dL 2.9 Protein 6.0 - 8.3 g/dL 6.4 LD <=250 U/L 204 Uric Acid 3.4 - 7.0 mg/dL 4.5 CBC Rpt ! WBC 4.00 - 10.80 K/uL 2.72 (L) RBC 4.50 - 5.25 M/uL 3.58 HGB 14.0 - 16.8 g/dL 10.7 (L) HCT 40.0 - 48.4 % 32.1 (L) MCV 82.0 - 99.5 fL 89.7 MCH 27.0 - 34.0 pg 29.9 MCHC 32.0 - 36.0 g/dL 33.3 RDW 11.5 - 15.5 % 12.5 PLT 140 - 400 K/uL 184 MPV 6.6 - 11.1 fL 9.6 CBC WITH WBC DIFFERENTIAL Rpt ! Absolute Neutrophils 1.80 - 7.70 K/uL 2.02 Absolute Lymphocytes 1.00 - 4.80 K/ul 0.51 (L) Absolute Monocytes 0.00 - 1.10 K/uL 0.06 Absolute Eosinophils 0.00 - 0.70 K/uL 0.10 Absolute Basophils 0.00 - 0.20 K/uL 0.01 Albumin 3.8 - 5.0 g/dL 3.9 AST 10 - 50 U/L 25 ALT 10 - 50 U/L 61 (H) Alkaline Phosphatase 35 - 130 U/L 70 Bilirubin, Total <=1.2 mg/dL 0.3 Bilirubin, Direct 0.0 - 0.3 mg/dL <0.2 !: Data is abnormal (L): Data is abnormally low (H): Data is abnormally high Rpt: View report in Results Review for more information IMAGING REVIEWED: no new studies ASSESSMENT/PLAN: Farhad Franco is a 32 year old male referred to Palliative Medicine with the primary diagnosis of: Longstanding history of cerebral vasculitis, 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 Secondary Diagnoses are: mild intellectual disability, GERD, migraine headaches, adjustment disorder with depressed mood, nephrolithiasis, tobacco use disorder, hypertension, bronchial asthma, obesity class 2, possible undiagnosed obstructive sleep apnea, ADHD Neoplasm related pain: Farhad's pain is complex: he has cancer pain, but he also has emotional and spiritual pain secondary to this cancer diagnosis and being away from his son. We have been talking to him about treating his pain more when he has functional difficulty rather than to dull the emotional pain. His mom is very much on board with this. Pain has improved in the past week. Discharge recommendations: Continue Subutex 1 mg SL BID - this does not need a prior auth per pharmacy Continue Hydromorphone 3 mg Q4H prn mod-severe pain - we will need to ensure he has a good supply of these when discharged because it is on back-order at many pharmacies, including the one his motherworks in Continue narcan prn, including upon discharge Opiate-induced constipation: Last BM today. Continue miralax daily and senna-S BID. Thank you for allowing us to participate in the ongoing care of this patient. Please don't hesitate to call or page with any additional concerns. Patient was seen and discussed with Dr. Valdez. Priscilla Navarro DO Fellow - Palliative Medicine 07/07/2023 I saw and evaluated the patient today. I have reviewed the trainee note and agree. His pain is significantly better and is use of hydromorphone as significantly reduced. * Kike Marquez PA-C - 07/06/2023 5:29 PM EDT Images from the original note were not included. PROGRESS NOTE - Hematology [facility] [address] Name: Farhad Franco Location: [facility] B846/A Date: 07/06/2023 Time: 5:29 PM SUBJECTIVE: No overnight events. No worsening pain with decreasing Subutex frequency. Later this morning and early afternoon he notes that it feels like his sternum is bruised. Denies any dyspnea, other chest pain, shortness of breath. He notes it is worse after eating as well. Drinking water sometimes make itworse as well. Does not have history of this. Denies any headaches, fevers/chills/sweats, abdominal pain, diarrhea, dysuria Review of Systems: Negative except as mentioned above Objective Physical Exam Most Recent Vital Signs: BP: 130 mmHg/82 mmHg (07/06/23 1414) Pulse: 87 (07/06/23 1414) Temp: 36.67 C (07/06/23 1414) Temp Summary: Temp Min: 36.3 C (97.4 F) Max: 36.9 C (98.5 F) SpO2: 97 % (07/06/23 1414) O2 flow rate: 3 L/MIN (06/22/23 1230) Supplemental O2 Delivery: Room Air, None (07/06/23 1414) Intake/Output Summary (Last 24 hours) at 07/06/2023 1729 Last data filed at 07/06/2023 1500 Gross per 24 hour Intake 2706.3 ml Output 2650 ml Net 56.3 ml Weight: 118.8 kg (262 lb) (06/20/23 2201) Weight: 122.7 kg (270 lb 9.6 oz) (07/06/23 0305) Constitutional: Young male, no acute distress, drowsy, sleeping in bed, easily arousable and conversational. HEENT: Moist mucous membranes, no oral lesions or thrush. Chest: Normal respiratory effort. Bilateral air entry equal with no crackles or wheezing heard. CVS: S1, S2 +, +2 pitting edema bilateral lower extremities Abdomen: Soft, tenderness On the lower abdomen. No rigidity or rebound tenderness. Bowel sounds positive Neuro: Alert, awake and following commands. Moving extremities. Musculoskeletal:no trauma or noticeable muscle lost, reproducible chest pain when pushing on sternum Psych: flat affect Power PICC Double Lumen Right;Upper Arm (Active) Number of days: 11 STUDIES: Encounter Orders Labs and other studies reviewed with pertinent findings noted below: LABS: I have personally reviewed the following labs CBC/DIFF CHEMISTRY Lab results within last 7 days (see chart for full results) Units 07/06/23 0322 BUN mg/dL 21* Creatinine mg/dL 0.8 Estimated Glomerular Filtration Rate mL/min >90 Sodium mmol/L 137 Potassium mmol/L 3.6 Chloride mmol/L 102 Calcium mg/dL 9.1 Phosphorus mg/dL 4.6 Magnesium mg/dL 2.3 CO2 mmol/L 26 Anion Gap mmol/L 9 Glucose mg/dL 106 Lab results within last 7 days (see chart for full results) Units 07/06/23 0322 WBC K/uL 4.87 HGB g/dL 10.4* PLT K/uL 179 Neutrophils % % 76.3* Monocytes % % 4.3 LFTs Lab results within last 7 days (see chart for full results) Units 07/06/23 0322 Albumin g/dL 3.7* Protein g/dL 5.9* AST U/L 21 ALT U/L 51* Alkaline Phosphatase U/L 62 Bilirubin, Total mg/dL 0.4 Bilirubin, Direct mg/dL <0.2 A. 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 See comment. at 1607 Sections show small core needle biopsies with [...] controls. CD3 stain background small sized T-cells. Melbeta-5 stains B-cells and is diffusely positive in [...] the B-cells. P53 shows weak diffuse staining. Assessment and Plan Burkitt's Lymphoma At risk for TLS - FISH with t(8: 14). EBV+ . EBV DNA positive in blood. - CTAP 06/24: Slightly enlarging mass from admission. - BMBx without any lymphoma involvement. US scrotum with no evidence of intratesticular lesion. CT head with no visible evidence of lymphoma.Appreciate ophthalmology consult, no ocular involvement. CSF studies to follow from 07/02/2023 - Pre phase Cytoxan with steroids: 06/26/23 to 06/30/2023. FISH panel suggest t(8,14) - DA-REPOCH Day 1 on 07/02/2023. - No steroids for cycle 1 as he got pre phase steroids. - Will complete 4 days on 07/06/2023 night. Needs G-CSF support. - LP and IT MTX 07/02/2023. Cytology and flow pending- IT chemo for a total of 8 doses. Can start with cycle 3 to cycle 6 on D1 and D5 - Prophylaxis: Acyclovir 400 mg twice daily, fluconazole 400 mg daily, bactrim. Allopurinol 300 mg daily. Needs Levofloxacin once ANC <500 - TLS labs daily, given stable labs and significant pitting edema we will stop IV fluids. Neoplasm related pain - Palliative on board: pain is complex. - Continue Subutex 1 mg SL BID (07/05/23). Doesn't need prior Auth per pharmacy. - Oral Hydromorphone 3 mg q.4 hours PRN moderate to severe pain. - Appreciate palliative med recommendations. - Naloxone in the hospital and also at home when he is discharged. - Continue Celebrex with close monitoring of platelets for now. NSAIDS will increase risk of kidneydysfunction and bleeding with TLS related to lymphoma and cytopenias related to chemo. 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 Left pneumonia on CXR 07/05 - No local symptoms and respiratory complaint - Discussed with attending regarding monitor vs treatment. With him going to be neutropenic from chemotherapy they favor treating for 10 days with augmentin/levaquin - this was discussed with the patient in his mother at bedside Cerebral vasculitis Migraines Seizure disorder - Continue aspirin, Depakote, Topamax, propranolol. ADHD - Discussed events of 06/29/2023, making him aware that destructive behavior will not be tolerated for the safety of staff. Mother was present during discussion Hypertension - Continue COMMUNITY AFFAIRS MANAGER hydrochlorothiazide. May need to hold if kidney dysfunction develops History of asthma - COMMUNITY AFFAIRS MANAGER Breo Ellipta, albuterol nebs q.6 hours p.r.n. Full Code: Discussed with patient and mom DVT ppx: lovenox. Disposition: - Patient was scheduled to see Dr. Chaudhary on 06/29/2023 but was canceled due to hospital admission. - Needs to arrange a follow-up with Dr. Chaudhary closer to discharge. After 5 days of DA-REPOCH. Probably 07/08/2023 . - Needs G-CSF support as outpatient. - IT chemo from cycle 3-6. Working on arranging this with Fluoroscopy - IR referral placed to get Mediport as outpatient . Discontinue PICC on discharge Pt discussed with Dr. Molina I spent a total of 45 minutes coordinating, documenting, and providing care for this patient excluding time spent in the performance of separately billed services or time spent by another provider/QHP. This note was completed using the dictation program Fluency Direct. As such, there may be misspellings, word substitutions, or other variations that should not change the essence of the clinical content of this encounter note. If there is need for further clarification, please direct questions to the provider listed above. Associated attestation - Yaz Molina MD - 07/06/2023 5:38 PM EDT I have reviewed the advanced practitioner's documentation on the date of service referenced in note, and I agree with, and take responsibility for the plan of care. I spent a total of 30 minutes coordinating, documenting, and providing care for this patient excluding time spent in the performance of separately billed services or time spent by another provider/QHP. * Mike Valdez MD - 07/06/2023 8:09 AM EDT PROGRESS NOTE - Palliative Medicine [facility] [address] Name: Farhad Franco Location: [facility] B846/A Date: 07/06/2023 Time: 8:09 AM SUBJECTIVE: Patient seen and chart reviewed. Family present: yes, mother Anne-Marie No acute events overnight. He is s/p RCHOP chemo late last week for lymphoma. Tolerating buprenorphine 1 mg SL BID (reduced this weekend for sleepiness). He took 2 doses of hydromorphone 3 mg in the past 24 hours and did not need IV morphine (ordered for BTP only). He had 1 dose of tylenol last night for a headache. He has been ambulating in his room throughout the day. Voiding well. Last 07/02. Not constipated. He is eating well. Nausea has not been an issue. No new complaints. OBJECTIVE: Most Recent Vital Signs: BP: 105 mmHg/61 mmHg (07/06/23634) Pulse: 74 (07/06/23634) Temp: 36.61 C (07/06/23634) Temp Summary: Temp Min: 36.3 C (97.4 F) Max: 37.1 C (98.8 F) SpO2: 96 % (07/06/23634) O2 flow rate: 3 L/MIN (06/22/23 1230) Supplemental O2 Delivery: Room Air, None (07/06/23634) Vital Signs Last 24 Hours: Systolic BP: Most Recent Systolic BP Av.6 mmHg Min: 100 mmHg Max: 138 mmHg Temperature: Most Recent Temperature Av.7 C Min: 36.33 C Max: 37.11 C Pulse: Pulse Av.3 Min: 69 Max: 91 Respirations: Resp Av.3 Min: 16 Max: 18 SpO2: SpO2 Av.6 % Min: 96 % Max: 99 % Constitutional: No acute distress HEENT: Moist mucous membranes. Chest: No increased work of breathing Neuro: Mild intellectual disability, speaks fluently but slowly Psych: Flat affect LABS REVIEWED: yes, reviewed Latest Reference Range & Units 07/06/23 03:22 Sodium 135 - 146 mmol/L 137 Potassium 3.5 - 5.1 mmol/L 3.6 Chloride 98 - 107 mmol/L 102 CO2 22 - 32 mmol/L 26 BUN 6 - 20 mg/dL 21 (H) Creatinine 0.6 - 1.2 mg/dL 0.8 Estimated Glomerular Filtration Rate >=60 mL/min >90 Anion Gap 7 - 15 mmol/L 9 Glucose 70 - 120 mg/dL 106 Calcium 8.4 - 10.2 mg/dL 9.1 Magnesium 1.5 - 2.6 mg/dL 2.3 Phosphorus 2.5 - 4.8 mg/dL 4.6 Protein 6.0 - 8.3 g/dL 5.9 (L) LD <=250 U/L 234 Uric Acid 3.4 - 7.0 mg/dL 4.2 CBC Rpt ! WBC 4.00 - 10.80 K/uL 4.87 RBC 4.50 - 5.25 M/uL 3.46 HGB 14.0 - 16.8 g/dL 10.4 (L) HCT 40.0 - 48.4 % 30.9 (L) MCV 82.0 - 99.5 fL 89.3 MCH 27.0 - 34.0 pg 30.1 MCHC 32.0 - 36.0 g/dL 33.7 RDW 11.5 - 15.5 % 12.7 PLT 140 - 400 K/uL 179 MPV 6.6 - 11.1 fL 9.8 CBC WITH WBC DIFFERENTIAL Rpt ! Absolute Neutrophils 1.80 - 7.70 K/uL 3.71 Absolute Lymphocytes 1.00 - 4.80 K/ul 0.78 (L) Absolute Monocytes 0.00 - 1.10 K/uL 0.21 Absolute Eosinophils 0.00 - 0.70 K/uL 0.09 Absolute Basophils 0.00 - 0.20 K/uL 0.01 Albumin 3.8 - 5.0 g/dL 3.7 (L) AST 10 - 50 U/L 21 ALT 10 - 50 U/L 51 (H) Alkaline Phosphatase 35 - 130 U/L 62 Bilirubin, Total <=1.2 mg/dL 0.4 Bilirubin, Direct 0.0 - 0.3 mg/dL <0.2 (H): Data is abnormally high (L): Data is abnormally low !: Data is abnormal Rpt: View report in Results Review for more information IMAGING REVIEWED: no new studies ASSESSMENT/PLAN: Farhad Franco is a 32 year old male referred to Palliative Medicine with the primary diagnosis of: Longstanding history of cerebral vasculitis, 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 Secondary Diagnoses are: mild intellectual disability, GERD, migraine headaches, adjustment disorder with depressed mood, nephrolithiasis, tobacco use disorder, hypertension, bronchial asthma, obesity class 2, possible undiagnosed obstructive sleep apnea, ADHD Neoplasm related pain: Farhad's pain is complex: he has cancer pain, but he also has emotional and spiritual pain secondary to this cancer diagnosis and being away from his son. We have been talking to him about treating his pain more when he has functional difficulty rather than to dull the emotional pain. His mom is very much on board with this. He has been doing much better over the past several days. 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 Continue miralax daily and senna-S BID. Thank you for allowing us to participate in the ongoing care of this patient. Please don't hesitate to call or page with any additional concerns. Patient was seen and discussed with Dr. Valdez. Priscilla Navarro DO Fellow - Palliative Medicine 07/06/2023 I saw and evaluated the patient today. I have reviewed the trainee note and agree. Farhad's pain appears to be under control with the Subutex. He has on a mg twice daily and has not required much breakthrough dose. He will be finishing his first cycle of chemotherapy on Thursday. * Kike Marquez PA-C - 07/05/2023 3:44 PM EDT Images from the original note were not included. PROGRESS NOTE - Hematology [address] [address] Name: Farhad Franco Location: [facility] B846/A Date: 07/05/2023 Time: 3:44 PM SUBJECTIVE: No overnight events. Patient fell asleep at 2 in the morning and did not have a restful night. He had Subutex at 6:00 a.m. and is very sleepy. He was arousable easily with voice. No major complaints or concerns. Denies any nausea or vomiting. States he has no pain. No difficulty breathing. Review of Systems: Negative except as mentioned above Objective Physical Exam Most Recent Vital Signs: BP: 116 mmHg/88 mmHg (07/05/23 1111) Pulse: 80 (07/05/23 1109) Temp: 37.11 C (07/05/23 1109) Temp Summary: Temp Min: 36.4 C (97.5 F) Max: 37.1 C (98.8 F) SpO2: 99 % (07/05/23 1109) O2 flow rate: 3 L/MIN (06/22/23 1230) Supplemental O2 Delivery: Room Air, None (07/05/23 1111) Intake/Output Summary (Last 24 hours) at 07/05/2023 1544 Last data filed at 07/05/2023 1400 Gross per 24 hour Intake 2423.42 ml Output 4575 ml Net -2151.58 ml Weight: 118.8 kg (262 lb) (06/20/23 2201) Weight: 124.4 kg (274 lb 4.8 oz) (07/05/23 1111) Constitutional: Young male, no acute distress, drowsy, sleeping in bed, easily arousable and conversational. HEENT: Moist mucous membranes, no oral lesions or thrush. Chest: Normal respiratory effort. Bilateral air entry equal with no crackles or wheezing heard. CVS: S1, S2 +, +2 pitting edema bilateral lower extremities Abdomen: Soft, tenderness On the lower abdomen. No rigidity or rebound tenderness. Bowel sounds positive Neuro: Alert, awake and following commands. Moving extremities. Extremities:no trauma or noticeable muscle lost Psych: flat affect Power PICC Double Lumen Right;Upper Arm (Active) Number of days: 10 STUDIES: Encounter Orders Labs and other studies reviewed with pertinent findings noted below: LABS: I have personally reviewed the following labs CBC/DIFF CHEMISTRY Lab results within last 7 days (see chart for full results) Units 07/05/23 0424 BUN mg/dL 21* Creatinine mg/dL 0.8 Estimated Glomerular Filtration Rate mL/min >90 Sodium mmol/L 138 Potassium mmol/L 3.7 Chloride mmol/L 104 Calcium mg/dL 9.2 Phosphorus mg/dL 4.1 Magnesium mg/dL 2.1 CO2 mmol/L 24 Anion Gap mmol/L 10 Glucose mg/dL 122* Lab results within last 7 days (see chart for full results) Units 07/05/23 0424 WBC K/uL 3.51* HGB g/dL 11.1* PLT K/uL 209 Neutrophils % % 64.9 Monocytes % % 7.7 LFTs Lab results within last 7 days (see chart for full results) Units 05/19/24 0424 Albumin g/dL 3.7* Protein g/dL 6.1 AST U/L 15 ALT U/L 48 Alkaline Phosphatase U/L 61 Bilirubin, Total mg/dL 0.3 Bilirubin, Direct mg/dL <0.2 A. 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 See comment. at 1607 Sections show small core needle biopsies with [...] controls. CD3 stain background small sized T-cells. Melbeta-5 stains B-cells and is diffusely positive in [...] the B-cells. P53 shows weak diffuse staining. Assessment and Plan Burkitt's Lymphoma At risk for TLS - FISH with t(8: 14). EBV+ . EBV DNA positive in blood. - CTAP 06/24: Slightly enlarging mass from admission. - BMBx without any lymphoma involvement. US scrotum with no evidence of intratesticular lesion. CT head with no visible evidence of lymphoma.Appreciate ophthalmology consult, no ocular involvement. CSF studies to follow from 07/02/2023 - Pre phase Cytoxan with steroids: 06/26/23 to 06/30/2023. FISH panel suggest t(8,14) - DA-REPOCH Day 1 on 07/02/2023. - No steroids for cycle 1 as he got pre phase steroids. - Will complete 4 days on 07/06/2023 night. Needs G-CSF support. - LP and IT MTX 07/02/2023. Cytology and flow pending- IT chemo for a total of 8 doses. Can start with cycle 3 to cycle 6 on D1 and D5 - Prophylaxis: Acyclovir 400 mg twice daily, fluconazole 400 mg daily, bactrim. Allopurinol 300 mg daily. Needs Levofloxacin once ANC <500 - TLS labs daily, given stable labs and significant pitting edema we will stop IV fluids. Neoplasm related pain - Palliative on board: pain is complex. - Continue Subutex 1 mg SL BID (07/05/23). Doesn't need prior Auth per pharmacy. - Oral Hydromorphone 3 mg q.4 hours PRN moderate to severe pain. - Appreciate palliative med recommendations. - Naloxone in the hospital and also at home when he is discharged. - Continue Celebrex with close monitoring of platelets for now. NSAIDS will increase risk of kidneydysfunction and bleeding with TLS related to lymphoma and cytopenias related to chemo. Cerebral vasculitis Migraines Seizure disorder - Continue aspirin, Depakote, Topamax, propranolol. ADHD - Discussed events of 06/29/2023, making him aware that destructive behavior will not be tolerated for the safety of staff. Mother was present during discussion Hypertension - Continue COMMUNITY AFFAIRS MANAGER hydrochlorothiazide. May need to hold if kidney dysfunction develops GERD - Continue COMMUNITY AFFAIRS MANAGER omeprazole History of asthma - COMMUNITY AFFAIRS MANAGER Breo Ellipta, albuterol nebs q.6 hours p.r.n. Full Code: Discussed with patient and mom DVT ppx: lovenox. Disposition: - Patient was scheduled to see Dr. Chaudhary on 06/29/2023 but was canceled due to hospital admission. - Needs to arrange a follow-up with Dr. Chaudhary closer to discharge. After 5 days of DA-REPOCH. Probably 07/08/2023 . - Needs G-CSF support as outpatient. - IT chemo from cycle 3-6. Working on arranging this with Fluoroscopy - IR referral placed to get Mediport as outpatient . Discontinue PICC on discharge Pt discussed with Dr. Molina I spent a total of 30 minutes coordinating, documenting, and providing care for this patient excluding time spent in the performance of separately billed services or time spent by another provider/QHP. This note was completed using the dictation program Fluency Direct. As such, there may be misspellings, word substitutions, or other variations that should not change the essence of the clinical content of this encounter note. If there is need for further clarification, please direct questions to the provider listed above. Associated attestation - Yaz Molina MD - 07/06/2023 7:48 AM EDT I have reviewed the advanced practitioner's documentation on the date of service referenced in note, and I agree with, and take responsibility for the plan of care. I spent a total of 30 minutes coordinating, documenting, and providing care for this patient excluding time spent in the performance of separately billed services or time spent by another provider/QHP. * Grover Mack MD - 07/05/2023 2:52 PM EDT PROGRESS NOTE - Palliative Medicine [facility] [place]-[address] [address] Name: Farhad Franco Location: [facility] B846/[id number] Date: 07/05/2023 Time: 2:52 PM SUBJECTIVE: This morning he feels that his legs were weak. He is more tired and because he did not have pain, he did not take the noontime dose of buprenorphine. He has pain again at this moment but it is not too bad. He tolerates p.o. intake. The last bowel movement was on 07/03/2023. He is on chemotherapy. Current Facility-Administered Medications: buprenorphine HCL (Subutex) sublingual tab 1 mg, 1 mg, Sublingual, AM & PM, Kike Marquez, MORGAN Fluconazole (Diflucan) tab 400 mg, 400 mg, Oral, Daily(AM), Yaz Molina MD, 400 mg at 07/05/23 0923 sulfamethoxazole-trimethoprim 400-80 mg per tab (Bactrim) 1 Tablet, 1 Tablet, Oral, Daily(AM), Yaz Molina MD, 1 Tablet at 07/05/23 0922 [START ON 07/06/2023] cycloPHOSphamide (Cytoxan) 1,880 mg in NSS 500 mL infusion, 750 mg/m2 (Treatment Plan Recorded), IV Piggyback, Once, Yaz Molina MD diphenhydrAMINE (Benadryl) inj 50 mg, 50 mg, IV Push, PRN, Yaz Molina MD EPINEPHrine 1 MG/ML inj 0.3 mg, 0.3 mg, Intramuscular, PRN, Yaz Molina MD etoposide (VEPESID) 130 mg, vinCRIStine sulfate 1 mg, DOXOrubicin (Adriamycin) 26 mg in NSS 1,000 mL infusion, , Intravenous, Q24H, Yaz Molina MD, Last Rate: 46 mL/hr at 07/05/23 1152, Rate Verifyat 07/05/23 1152 Hydrocortisone Sod Suc (PF) (Solu-Cortef) inj 100 mg, 100 mg, IV Push, PRN, Yaz Molina MD LORAzepam (Ativan) tab 0.5 mg, 0.5 mg, Oral, Once PRN, Yaz Molina MD morphine sulfate inj 2 mg, 2 mg, IV Push, Q4H PRN, Jamal Retana MD OLANZapine (zyPREXA) tab 10 mg, 10 mg, Oral, QHS, Yaz Molina MD, 10 mg at 07/04/232157 ondansetron (Zofran) tab 16 mg, 16 mg, Oral, Q24H, Yaz Molina MD, 16 mg at 07/04/232028 oxygen GAS, , Inhalation, Oxygen, Yaz Molina MD aspirin enteric coated tab 81 mg, 81 mg, Oral, Daily(AM), Kike Marquez PA-C, 81 mg at 07/05/23921 celecoxib (CeleBREX) cap 200 mg, 200 mg, Oral, Daily(AM), Kike Marquez PA-C, 200 mg at 07/05/23 0922 Enoxaparin (Lovenox) inj 40 mg, 40 mg, Subcutaneous, Daily(AM), Kike Marquez PA-C, 40 mg at 07/05/23 0921 HYDROmorphone (Dilaudid) tab 3 mg, 3 mg, Oral, Q4H PRN, Priscilla Navarro DO, 3 mg at 07/05/23 0411 Polyethylene Glycol 3350 (Miralax) oral powder 17 g, 1 Packet, Oral, Daily(AM), Priscilla Navarro, DO, 17 g at 07/05/23 0921 senna-docusate (Senokot-S) 1 Tablet, 1 Tablet, Oral, BID (08,1999), Lay Navarroly A, DO, 1 Tablet at 07/03/23 1547 prochlorperazine (Compazine) inj 10 mg, 10 mg, IV Push, Q6H PRN, Arnulfo Lowe PA-C Acetaminophen (Tylenol) tab 650 mg, 650 mg, Oral, Q6H PRN, Pepe Salgado PA-C, 650 mg at 06/30/23 0306 loperamide (Imodium) cap 4 mg, 4 mg, Oral, Q6H PRN, Pepe Salgado PA-C, 4 mg at 06/27/23 1125 Acyclovir (Zovirax) tab 400 mg, 400 mg, Oral, BID(AM/PM), Drake Pyle MD, 400 mg at 07/05/23 0922 dextrose 50% inj 25 mL, 25 mL, IV Push, PRN, Jamal Retana MD dextrose 50% inj 50 mL, 50 mL, IV Push, PRN, Jamal Retana MD glucagon (Glucagen) inj 1 mg, 1 mg, Intramuscular, PRN, Jamal Retana MD Glucose (Glutose 15) 40 % gel 15 g of glucose, 15 g of glucose, Oral, PRN, Jamal Retana MD Glucose (Glutose 15) 40 % gel 30 g of glucose, 30 g of glucose, Oral, PRN, Jamal Retana MD glucose chew tab 16 g, 16 g, Oral, PRN, Jamal Retana MD hEParin 100 UNIT/ML Lock Flush inj 300 Units, 3 mL, IV Push, PRN, Drake Pyle MD insulin aspart (NovoLOG) inj, , Subcutaneous, With Meals and HS, Jamal Retana MD, 1 Units at 07/03/23 1721 Oral Hygiene: Mouth Swab with dentifrice, , Oral, After Meals and at Bedtime, Drake Pyle MD, Given at 07/05/23 1300 sodium chloride 0.9 % flush/inj 10 mL, 10 mL, IV Push, Q8H, Drake Pyle MD, 10 mL at07/05/23 0412 Allopurinol (Zyloprim) tab 300 mg, 300 mg, Oral, BID(AM/PM), Arnulfo Lowe PA-C, 300 mg at07/05/23 0922 Alteplase (Cathflo Activase) inj 2 mg, 2 mg, IV Push, PRN, Jamal Retana MD chlorhexidine gluconate cloth 2 % pad, , External, Daily 1000, Jamal Retana MD, 1 Pad at 07/04/23 1656 Saline ([place]) nasal spray, 1 [place], Nasal, PRN, Melanie Alatorre CRNP, 1 [place] at 06/24/23 1723 naloxone (Narcan) 0.4 MG/ML inj 0.08 mg, 0.08 mg, IV Push, PRN, Andrea Coppola MD Albuterol Sulfate (Proventil) (2.5 MG/3ML) 0.083% inhalation solution 2.5 mg, 2.5 mg, Nebulizer, Q6H PRN, Muna Solitario DO divalproex ER (Depakote ER) extended release tab 500 mg, 500 mg, Oral, QHS, Muna Solitario DO, 500 mg at 07/04/23 2158 fluticasone furoate-vilanterol (BREO ellipta) 100-25 MCG/ACT inhaler 1 Puff, 1 Puff, Inhalation, BID(AM/PM), Muna Solitario DO, 1 Puff at 07/05/23 0923 hydroCHLOROthiazide cap 12.5 mg, 12.5 mg, Oral, Daily(AM), Muna Solitario DO, 12.5 mg at 07/05/23 0923 Loratadine (Claritin) tab 10 mg, 10 mg, Oral, Daily(AM), Labashosky, Muna, DO, 10 mg at 07/05/23 0922 omeprazole (PriLOSEC) cap 20 mg, 20 mg, Oral, Daily(AM), Labashosky, Muna, DO, 20 mg at 07/05/23 0922 ondansetron ODT (Zofran) tab 4 mg, 4 mg, On Tongue, Q8H PRN, Labashosky, Muna, DO, 4 mg at 06/28/23 223 propranolol (Inderal) tab 40 mg, 40 mg, Oral, BID(AM/PM), Labashosky, Muna, DO, 40 mg at 07/05/23 0922 sodium chloride 0.9 % flush/inj 3 mL, 3 mL, IV Push, PRN, Labashosky, Muna, DO topiramate (topAMAX) tab 100 mg, 100 mg, Oral, BID(AM/PM), Labashosky, Muna, DO, 100 mg at 07/05/23 0922 Hydromorphone 3 mg PO x 3 OBJECTIVE: Most Recent Vital Signs: BP: 116 mmHg/88 mmHg (07/05/23 1111) Pulse: 80 (07/05/23 1109) Temp: 37.11 C (07/05/23 1109) Temp Summary: Temp Min: 36.4 C (97.5 F) Max: 37.1 C (98.8 F) SpO2: 99 % (07/05/23 1109) O2 flow rate: 3 L/MIN (06/22/23 1230) Supplemental O2 Delivery: Room Air, None (07/05/23 1111) Vital Signs Last 24 Hours: Systolic BP: Most Recent Systolic BP Av.3 mmHg Min: 116 mmHg Max: 138 mmHg Temperature: Most Recent Temperature Av.6 C Min: 36.39 C Max: 37.11 C Pulse: Pulse Av.3 Min: 77 Max: 88 Respirations: Resp Av.7 Min: 16 Max: 18 SpO2: SpO2 Av.3 % Min: 94 % Max: 99 % Constitutional: no acute distress Chest: normal respiratory effort Neuro: Awake. Psych: normal mood and affect LABS REVIEWED: yes, reviewed IMAGING REVIEWED: yes, reviewed Creatinine Results: Lab Results Component Value Date/Time CREATININE - [facility] 0.8 07/05/2023 04:24 AM CREATININE - [facility] 1.1 07/04/2023 09:52 PM CREATININE - [facility] 0.8 07/04/2023 01:26 PM CREATININE - [facility] 1.1 11/11/2019 01:50 PM CREATININE - [facility] 1.0 11/15/2013 08:59 AM CREATININE, RANDOM URINE - [facility] 211 08/02/2021 09:59 AM CREATININE-OUTSIDE LAB 1.10 06/19/2023 12:00 AM CREATININE-OUTSIDE LAB 1.00 06/10/2023 12:00 AM CREATININE-OUTSIDE LAB 0.90 06/09/2023 12:00 AM Sodium Results: Lab Results Component Value Date/Time SODIUM - [facility] 138 07/05/2023 04:24 AM SODIUM - [facility] 139 07/04/2023 09:52 PM SODIUM - [facility] 141 07/04/2023 01:26 PM SODIUM - [facility] 140 11/11/2019 01:50 PM SODIUM - [facility] 139 11/15/2013 08:59 AM Hemoglobin Results: Lab Results Component Value Date/Time HGB 11.1 (L) 07/05/2023 04:24 AM HGB 10.4 (L) 07/04/2023 03:17 AM HGB 10.6 (L) 07/03/2023 06:21 AM HGB 13.8 (A) 06/19/2023 12:00 AM HGB 13.9 (A) 06/10/2023 12:00 AM HGB 13.6 (A) 06/09/2023 12:00 AM HGB 16.2 11/11/2019 01:50 PM HGB 15.4 11/15/2013 08:59 AM Sodium Results: Lab Results Component Value Date/Time SODIUM - [facility] 138 07/05/2023 04:24 AM SODIUM - [facility] 139 07/04/2023 09:52 PM SODIUM - [facility] 141 07/04/2023 01:26 PM SODIUM - [facility] 140 11/11/2019 01:50 PM SODIUM - [facility] 139 11/15/2013 08:59 AM US SCROTUM/TESTES Narrative: EXAM US SCROTUM/TESTES HISTORY Staging for high grade lymphoma COMPARISON CT abdomen/pelvis 06/25/2023. FINDINGS RIGHT: The testicle is homogeneous in echogenicity measuring 3.9 x 2.7 x 2.1 cm. No lesions identified. There is no hydrocele. Blood flow is identified to the testicle Epididymal head cyst measuring 0.6 x 0.5 x 0.7 cm. Varicocele. LEFT: The testicle is homogeneous in echogenicity measuring 3.7 x 2.9 x 1.9 cm. No lesions identified. There is no hydrocele. Blood flow is identified to the testicle Two, left epididymal head cysts measuring up to 0.3 x 0.5 x 0.3 cm. Varicocele. Scrotal amarjit. Bilateral testicular flow appears nearly symmetric. Impression: IMPRESSION 1. No sonographic evidence of intratesticular lesion. 2. Bilateral varicoceles. I have personally reviewed this examination and agree with the resident/fellow physician's interpretation. CT HEAD/BRAIN W WO CONTRAST Narrative: EXAM CT HEAD WITHOUT CONTRAST 06/29/2023 HISTORY 32 y/o M Staging for stage IV high grade lymphoma TECHNIQUE Pre and postcontrast CT of the head performed. COMPARISON 12/06/2013 in correlation made with FINDINGS No acute intracranial hemorrhage or abnormal extra-axial collection. There is generalized volume loss with prominence of the ventricles and sulci. No midline shift or mass effect. Scattered areas of patchy hypoattenuation are present within the cerebral white matter which are nonspecific but can beseen with chronic small vessel ischemia. An area of encephalomalacia and gliosis seen within the left occipital lobe no abnormal intracranial enhancement develops following intravenous contrast administration. If there is continued clinical concern for intracranial disease, MRI brain with and without contrast is suggested which is more sensitive. Mucous retention cyst is seen within the inferior left maxillary sinus. Impression: IMPRESSION 1. No acute intracranial abnormality. 2. No abnormal intracranial enhancement. If there is continued clinical concern for intracranial disease, MRI brain with and without contrast is suggested which is more sensitive. ASSESSMENT/PLAN: This is a 32-year-old man with Burkitt's lymphoma, history of cerebral vasculitis, migraines, seizure disorder, ADHD, mild intellectual disability. We are consulted for symptom management. Cancer pain/weakness/cancer fatigue: He is weaker he feels tired. It can be from chemotherapy or pain medications. We agreed to reduce the dose of buprenorphine because his pain is better. To continue taking hydromorphone as needed for breakthrough pain. Recommendations: Decrease buprenorphine to 1 mg sublingually bid. Continue hydromorphone 3 mg by mouth every 4 hours as needed for pain Suggest to have available naloxone in the hospital and also at home when he is discharged. Continue MiraLax and senna for opioid-induced constipation. I have discussed the case with the primary team. Thank you for allowing us to participate in the ongoing care of this patient. Please don't hesitate to call or page with any additional concerns. * Kike Marquez PA-C - 07/04/2023 4:25 PM EDT Images from the original note were not included. PROGRESS NOTE - Hematology [address] [address] Name: Farhad Franco Location: [facility] B846/A Date: 07/04/2023 Time: 4:26 PM SUBJECTIVE: No overnight events. I spoke to patient while he was standing at the foot side of his bed playing video game. He continued to play the game while I interviewed him. He denies any nausea or vomiting. No significant pain at this point in time. Denies any diarrhea. No f/c/s. Denies any side effects from the recent LP. He had not vocalize any other concerns at this point in time Review of Systems: Negative except as mentioned above Objective Physical Exam Most Recent Vital Signs: BP: 130 mmHg/88 mmHg (07/04/23 142) Pulse: 85 (07/04/23 142) Temp: 36.28 C (07/04/23 142) Temp Summary: Temp Min: 36.1 C (97 F) Max: 36.6 C (97.9 F) SpO2: 100 % (07/04/23 142) O2 flow rate: 3 L/MIN (06/22/23 1230) Supplemental O2 Delivery: Room Air, None (07/04/23 142) Intake/Output Summary (Last 24 hours) at 07/04/2023 1626 Last data filed at 07/04/2023 1438 Gross per 24 hour Intake 3952.36 ml Output 2700 ml Net 1252.36 ml Weight: 118.8 kg (262 lb) (06/20/23 220) Weight: 128.7 kg (283 lb 12.8 oz) (07/04/23 0644) Constitutional: Young male, standing at the foot of the bed playing a video game, No acute distress, mother at bedside HEENT: Moist mucous membranes, no oral lesions or thrush. Chest: Normal respiratory effort. Bilateral air entry equal with no crackles or wheezing heard. CVS: S1, S2 + Abdomen: Soft, tenderness On the lower abdomen. No rigidity or rebound tenderness. Bowel sounds positive Neuro: Alert, awake and following commands. Moving extremities. Extremities: pedal edema more prominent on foot bilaterally Psych: flat affect Power PICC Double Lumen Right;Upper Arm (Active) Number of days: 9 STUDIES: Encounter Orders Labs and other studies reviewed with pertinent findings noted below: LABS: I have personally reviewed the following labs CBC/DIFF CHEMISTRY Lab results within last 7 days (see chart for full results) Units 07/04/23 1326 07/04/23 0317 BUN mg/dL 16 18 Creatinine mg/dL 0.8 0.8 Estimated Glomerular Filtration Rate mL/min >90 >90 Sodium mmol/L 141 140 Potassium mmol/L 3.3* 3.9 Chloride mmol/L 109* 107 Calcium mg/dL 7.9* 8.8 Phosphorus mg/dL 3.3 3.6 Magnesium mg/dL -- 2.2 CO2 mmol/L 23 24 Anion Gap mmol/L 9 9 Glucose mg/dL 102 96 Lab results within last 7 days (see chart for full results) Units 07/04/23 0317 WBC K/uL 4.48 HGB g/dL 10.4* PLT K/uL 214 Neutrophils % % 65.9 Monocytes % % 9.8 LFTs Lab results within last 7 days (see chart for full results) Units 07/04/23 0317 Albumin g/dL 3.6* Protein g/dL 5.8* AST U/L 18 ALT U/L 57* Alkaline Phosphatase U/L 58 Bilirubin, Total mg/dL 0.2 Bilirubin, Direct mg/dL <0.2 A. 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 See comment. at 1607 Sections show small core needle biopsies with [...] controls. CD3 stain background small sized T-cells. Melbeta-5 stains B-cells and is diffusely positive in [...] the B-cells. P53 shows weak diffuse staining. Assessment and Plan Burkitt's Lymphoma At risk for TLS - FISH with t(8: 14). EBV+ . EBV DNA positive in blood. - CTAP 06/24: Slightly enlarging mass from admission. - BMBx without any lymphoma involvement. US scrotum with no evidence of intratesticular lesion. CT head with no visible evidence of lymphoma.Appreciate ophthalmology consult, no ocular involvement. CSF studies to follow from 07/02/2023 - Pre phase Cytoxan with steroids: 06/26/23 to 06/30/2023. FISH panel suggest t(8,14) - DA-REPOCH Day 1 on 07/02/2023. - No steroids for cycle 1 as he got pre phase steroids. - Will complete 4 days on 07/06/2023 night. Needs G-CSF support. - LP and IT MTX 07/02/2023. Cytology and flow pending- IT chemo for a total of 8 doses. Can start with cycle 3 to cycle 6 on D1 and D5 - Prophylaxis: Acyclovir 400 mg twice daily, fluconazole 400 mg daily, bactrim. NS 75 mL/hour, Allopurinol 300 mg BID. Needs Levofloxacin once ANC <500 - TLS labs Q12 hours, if they remain stable will continue to decrease frequency Neoplasm related pain - Palliative on board: pain is complex. - Continue Subutex 1 mg SL three times daily(07/01/23). Doesn't need prior Auth per pharmacy. - Oral Hydromorphone 3 mg q.4 hours PRN moderate to severe pain. - Appreciate palliative med recommendations. - Naloxone in the hospital and also at home when he is discharged. - Continue Celebrex with close monitoring of platelets for now. NSAIDS will increase risk of kidneydysfunction and bleeding with TLS related to lymphoma and cytopenias related to chemo. Cerebral vasculitis Migraines Seizure disorder - Continue aspirin, Depakote, Topamax, propranolol. ADHD - Discussed events of 06/29/2023, making him aware that destructive behavior will not be tolerated for the safety of staff. Mother was present during discussion Hypertension - Continue COMMUNITY AFFAIRS MANAGER hydrochlorothiazide. May need to hold if kidney dysfunction develops GERD - Continue COMMUNITY AFFAIRS MANAGER omeprazole History of asthma - COMMUNITY AFFAIRS MANAGER Breo Ellipta, albuterol nebs q.6 hours p.r.n. Full Code: Discussed with patient and mom DVT ppx: lovenox. Disposition: - Patient was scheduled to see Dr. Chaudhary on 06/29/2023 but was canceled due to hospital admission. - Needs to arrange a follow-up with Dr. Chaudhary closer to discharge. After 5 days of DA-REPOCH. Probably 07/08/2023 . - Needs G-CSF support as outpatient. - IT chemo from cycle 3-6. Working on arranging this with Fluoroscopy - IR referral placed to get Mediport as outpatient . Discontinue PICC on discharge Pt discussed with Dr. Molina I spent a total of 30 minutes coordinating, documenting, and providing care for this patient excluding time spent in the performance of separately billed services or time spent by another provider/QHP. This note was completed using the dictation program Fluency Direct. As such, there may be misspellings, word substitutions, or other variations that should not change the essence of the clinical content of this encounter note. If there is need for further clarification, please direct questions to the provider listed above. Associated attestation - Yaz Molina MD - 07/05/2023 7:25 AM EDT I have reviewed the advanced practitioner's documentation on the date of service referenced in note, and I agree with, and take responsibility for the plan of care. I spent a total of 30 minutes coordinating, documenting, and providing care for this patient excluding time spent in the performance of separately billed services or time spent by another provider/QHP. * Grover Mack MD - 07/04/2023 10:34 AM EDT PROGRESS NOTE - Palliative Medicine [address] [address] Name: Farhad Franco Location: [facility] B846/A Date: 07/04/2023 Time: 10:34 AM SUBJECTIVE: The pain is more manageable. He is calmer. He is more tired since he started chemotherapy. He eats.No constipation. Current Facility-Administered Medications: Furosemide (Lasix) inj 20 mg, 20 mg, IV Push, Once, Kike Marquez PA-C NSS infusion, , Intravenous, Continuous, Kike Marquez PA-C Fluconazole (Diflucan) tab 400 mg, 400 mg, Oral, Daily(AM), Yaz Molina MD, 400 mg at 07/04/23 0956 sulfamethoxazole-trimethoprim 400-80 mg per tab (Bactrim) 1 Tablet, 1 Tablet, Oral, Daily(AM), Yaz Molina MD, 1 Tablet at 07/04/23 0955 [START ON 07/06/2023] cycloPHOSphamide (Cytoxan) 1,880 mg in NSS 500 mL infusion, 750 mg/m2 (Treatment Plan Recorded), IV Piggyback, Once, Yaz Molina MD diphenhydrAMINE (Benadryl) inj 50 mg, 50 mg, IV Push, PRN, Yaz Molina MD EPINEPHrine 1 MG/ML inj 0.3 mg, 0.3 mg, Intramuscular, PRN, Yaz Molina MD etoposide (VEPESID) 130 mg, vinCRIStine sulfate 1 mg, DOXOrubicin (Adriamycin) 26 mg in NSS 1,000 mL infusion, , Intravenous, Q24H, Yaz Molina MD, Last Rate: 46 mL/hr at 07/04/23 0735, Nurse Change at 07/04/23 0735 Hydrocortisone Sod Suc (PF) (Solu-Cortef) inj 100 mg, 100 mg, IV Push, PRN, Yaz Molina MD LORAzepam (Ativan) tab 0.5 mg, 0.5 mg, Oral, Once PRN, Yaz Molina MD morphine sulfate inj 2 mg, 2 mg, IV Push, Q4H PRN, Jamal Retana MD OLANZapine (zyPREXA) tab 10 mg, 10 mg, Oral, QHS, Yaz Molina MD, 10 mg at 07/03/232122 ondansetron (Zofran) tab 16 mg, 16 mg, Oral, Q24H, Yaz Molina MD, 16 mg at 07/03/232122 oxygen GAS, , Inhalation, Oxygen, Yaz Molina MD aspirin enteric coated tab 81 mg, 81 mg, Oral, Daily(AM), Kike Marquez PA-C, 81 mg at 07/04/23 0956 buprenorphine HCL (Subutex) sublingual tab 1 mg, 1 mg, Sublingual, TID, Piscoleen, Priscilla A, DO, 1 mg at 07/04/23 0642 celecoxib (CeleBREX) cap 200 mg, 200 mg, Oral, Daily(AM), Kike Marquez PA-C, 200 mg at 07/04/23 0956 Enoxaparin (Lovenox) inj 40 mg, 40 mg, Subcutaneous, Daily(AM), Kike Marquez PA-C, 40 mg at 07/04/23 0954 HYDROmorphone (Dilaudid) tab 3 mg, 3 mg, Oral, Q4H PRN, Piscoleen, Priscilla A, DO, 3 mg at 07/04/23 0334 Polyethylene Glycol 3350 (Miralax) oral powder 17 g, 1 Packet, Oral, Daily(AM), Pish, Priscilla A, DO, 17 g at 07/04/23 0956 senna-docusate (Senokot-S) 1 Tablet, 1 Tablet, Oral, BID (799,1999), Priscilla Navarro DO, 1 Tablet at 07/03/23 1547 prochlorperazine (Compazine) inj 10 mg, 10 mg, IV Push, Q6H PRN, Arnulfo Lowe PA-C Acetaminophen (Tylenol) tab 650 mg, 650 mg, Oral, Q6H PRN, Pepe Salgado PA-C, 650 mg at 06/30/23 0306 loperamide (Imodium) cap 4 mg, 4 mg, Oral, Q6H PRN, Pepe Salgado PA-C, 4 mg at 06/27/23 1125 Acyclovir (Zovirax) tab 400 mg, 400 mg, Oral, BID(AM/PM), Drake Pyle MD, 400 mg at 07/04/23 0955 dextrose 50% inj 25 mL, 25 mL, IV Push, PRN, Jamal Retana MD dextrose 50% inj 50 mL, 50 mL, IV Push, PRN, Jamal Retana MD glucagon (Glucagen) inj 1 mg, 1 mg, Intramuscular, PRN, Jamal Retana MD Glucose (Glutose 15) 40 % gel 15 g of glucose, 15 g of glucose, Oral, PRN, Jamal Retana MD Glucose (Glutose 15) 40 % gel 30 g of glucose, 30 g of glucose, Oral, PRN, Jamal Retana MD glucose chew tab 16 g, 16 g, Oral, PRN, Jamal Retana MD hEParin 100 UNIT/ML Lock Flush inj 300 Units, 3 mL, IV Push, PRN, Drake Pyle MD insulin aspart (NovoLOG) inj, , Subcutaneous, With Meals and HS, Jamal Retana MD, 1 Units at 07/03/23 1721 Oral Hygiene: Mouth Swab with dentifrice, , Oral, After Meals and at Bedtime, Drake Pyle MD, Given at 07/04/23 0900 sodium chloride 0.9 % flush/inj 10 mL, 10 mL, IV Push, Q8H, Drake Pyle MD, 10 mL at07/04/23 0306 Allopurinol (Zyloprim) tab 300 mg, 300 mg, Oral, BID(AM/PM), Arnulfo Lowe PA-C, 300 mg at07/04/23 0956 Alteplase (Cathflo Activase) inj 2 mg, 2 mg, IV Push, PRN, Jamal Retana MD chlorhexidine gluconate cloth 2 % pad, , External, Daily 1000, Jamal Retana MD, 1 Pad at 07/03/23 212 Saline ([place]) nasal spray, 1 [place], Nasal, PRN, Melanie Alatorre CRNP, 1 [place] at 06/24/23 1723 naloxone (Narcan) 0.4 MG/ML inj 0.08 mg, 0.08 mg, IV Push, PRN, Andrea Coppola MD Albuterol Sulfate (Proventil) (2.5 MG/3ML) 0.083% inhalation solution 2.5 mg, 2.5 mg, Nebulizer, Q6H PRN, Muna Solitario DO divalproex ER (Depakote ER) extended release tab 500 mg, 500 mg, Oral, QHS, Muna Solitario DO, 500 mg at 07/03/23 2123 fluticasone furoate-vilanterol (BREO ellipta) 100-25 MCG/ACT inhaler 1 Puff, 1 Puff, Inhalation, BID(AM/PM), Muna Solitario DO, 1 Puff at 07/04/23 0957 hydroCHLOROthiazide cap 12.5 mg, 12.5 mg, Oral, Daily(AM), Muna Solitario DO, 12.5 mg at 07/04/23 0955 Loratadine (Claritin) tab 10 mg, 10 mg, Oral, Daily(AM), Muna Solitario DO, 10 mg at 07/04/23 0956 omeprazole (PriLOSEC) cap 20 mg, 20 mg, Oral, Daily(AM), Muna Solitario, DO, 20 mg at 07/04/23 0955 ondansetron ODT (Zofran) tab 4 mg, 4 mg, On Tongue, Q8H PRN, Muna Solitario, DO, 4 mg at 06/28/232231 propranolol (Inderal) tab 40 mg, 40 mg, Oral, BID(AM/PM), Labjose mariaosMuna lepe, DO, 40 mg at 07/04/23 0955 sodium chloride 0.9 % flush/inj 3 mL, 3 mL, IV Push, PRN, Muna Solitario, DO topiramate (topAMAX) tab 100 mg, 100 mg, Oral, BID(AM/PM), Muna Solitario, DO, 100 mg at 07/04/23 0956 Hydromorphone 3 mg PO x 2 OBJECTIVE: Most Recent Vital Signs: BP: 121 mmHg/66 mmHg (07/04/23716) Pulse: 64 (07/04/23716) Temp: 36.28 C (07/04/23716) Temp Summary: Temp Min: 36 C (96.8 F) Max: 36.6 C (97.8 F) SpO2: 96 % (07/04/23716) O2 flow rate: 3 L/MIN (06/22/23 1230) Supplemental O2 Delivery: Room Air, None (07/04/23716) Vital Signs Last 24 Hours: Systolic BP: Most Recent Systolic BP Av.6 mmHg Min: 101 mmHg Max: 141 mmHg Temperature: Most Recent Temperature Av.3 C Min: 36 C Max: 36.56 C Pulse: Pulse Av.1 Min: 64 Max: 83 Respirations: Resp Av.3 Min: 16 Max: 20 SpO2: SpO2 Av % Min: 95 % Max: 100 % Constitutional: no acute distress Chest: normal respiratory effort Neuro: Sleepy Psych: normal mood and affect LABS REVIEWED: yes, reviewed IMAGING REVIEWED: yes, reviewed Creatinine Results: Lab Results Component Value Date/Time CREATININE - [facility] 0.8 07/04/2023 03:17 AM CREATININE - [facility] 0.8 07/03/2023 10:53 PM CREATININE - [facility] 0.7 07/03/2023 01:35 PM CREATININE - [facility] 1.1 11/11/2019 01:50 PM CREATININE - [facility] 1.0 11/15/2013 08:59 AM CREATININE, RANDOM URINE - [facility] 211 08/02/2021 09:59 AM CREATININE-OUTSIDE LAB 1.10 06/19/2023 12:00 AM CREATININE-OUTSIDE LAB 1.00 06/10/2023 12:00 AM CREATININE-OUTSIDE LAB 0.90 06/09/2023 12:00 AM Sodium Results: Lab Results Component Value Date/Time SODIUM - [facility] 140 07/04/2023 03:17 AM SODIUM - [facility] 141 07/03/2023 10:53 PM SODIUM - [facility] 139 07/03/2023 01:35 PM SODIUM - [facility] 140 11/11/2019 01:50 PM SODIUM - [facility] 139 11/15/2013 08:59 AM Hemoglobin Results: Lab Results Component Value Date/Time HGB 10.4 (L) 07/04/2023 03:17 AM HGB 10.6 (L) 07/03/2023 06:21 AM HGB 10.4 (L) 07/02/2023 03:27 AM HGB 13.8 (A) 06/19/2023 12:00 AM HGB 13.9 (A) 06/10/2023 12:00 AM HGB 13.6 (A) 06/09/2023 12:00 AM HGB 16.2 11/11/2019 01:50 PM HGB 15.4 11/15/2013 08:59 AM Sodium Results: Lab Results Component Value Date/Time SODIUM - [facility] 140 07/04/2023 03:17 AM SODIUM - [facility] 141 07/03/2023 10:53 PM SODIUM - [facility] 139 07/03/2023 01:35 PM SODIUM - [facility] 140 11/11/2019 01:50 PM SODIUM - [facility] 139 11/15/2013 08:59 AM US SCROTUM/TESTES Narrative: EXAM US SCROTUM/TESTES HISTORY Staging for high grade lymphoma COMPARISON CT abdomen/pelvis 06/25/2023. FINDINGS RIGHT: The testicle is homogeneous in echogenicity measuring 3.9 x 2.7 x 2.1 cm. No lesions identified. There is no hydrocele. Blood flow is identified to the testicle Epididymal head cyst measuring 0.6 x 0.5 x 0.7 cm. Varicocele. LEFT: The testicle is homogeneous in echogenicity measuring 3.7 x 2.9 x 1.9 cm. No lesions identified. There is no hydrocele. Blood flow is identified to the testicle Two, left epididymal head cysts measuring up to 0.3 x 0.5 x 0.3 cm. Varicocele. Scrotal amarjit. Bilateral testicular flow appears nearly symmetric. Impression: IMPRESSION 1. No sonographic evidence of intratesticular lesion. 2. Bilateral varicoceles. I have personally reviewed this examination and agree with the resident/fellow physician's interpretation. CT HEAD/BRAIN W WO CONTRAST Narrative: EXAM CT HEAD WITHOUT CONTRAST 06/29/2023 HISTORY 32 y/o M Staging for stage IV high grade lymphoma TECHNIQUE Pre and postcontrast CT of the head performed. COMPARISON 12/06/2013 in correlation made with FINDINGS No acute intracranial hemorrhage or abnormal extra-axial collection. There is generalized volume loss with prominence of the ventricles and sulci. No midline shift or mass effect. Scattered areas of patchy hypoattenuation are present within the cerebral white matter which are nonspecific but can beseen with chronic small vessel ischemia. An area of encephalomalacia and gliosis seen within the left occipital lobe no abnormal intracranial enhancement develops following intravenous contrast administration. If there is continued clinical concern for intracranial disease, MRI brain with and without contrast is suggested which is more sensitive. Mucous retention cyst is seen within the inferior left maxillary sinus. Impression: IMPRESSION 1. No acute intracranial abnormality. 2. No abnormal intracranial enhancement. If there is continued clinical concern for intracranial disease, MRI brain with and without contrast is suggested which is more sensitive. ASSESSMENT/PLAN: This is a 32-year-old man with Burkitt's lymphoma, history of cerebral vasculitis, migraines, seizure disorder, ADHD, mild intellectual disability. We are consulted for symptom management. Cancer pain: The pain seems to be manageable at this moment with the combination of buprenorphine and hydromorphone as needed. He was sleepy during my assessment, but according to his mother, he had just woken up. We have agreed to continue the same management for now and to let us know if his condition changes. Recommendations: Continue buprenorphine 1 mg sublingually 3 times a day (to find out if it requires prior authorization) Continue hydromorphone 3 mg by mouth every 4 hours as needed for pain Suggest to have available naloxone in the hospital and also at home when he is discharged. Thank you for allowing us to participate in the ongoing care of this patient. Please don't hesitate to call or page with any additional concerns. * Priscilla Navarro, - 07/03/2023 8:58 AM EDT PROGRESS NOTE - Palliative Medicine [facility] [place]-[address] [address] Name: Farhad Franco Location: [facility] B846/A Date: 07/03/2023 Time: 8:58 AM SUBJECTIVE: Patient seen and chart reviewed. Family present: yes, mother Anne-Marie No acute events overnight. Tolerating buprenorphine 1 mg SL TID. He took 4 doses of hydromorphone 3mg in the past 24 hours and did not need IV morphine (ordered for BTP only). He has been ambulatingin his room throughout the day. Last BM 06/30. Not constipated. He is eating well. Nausea has not been an issue. No new complaints since our visit yesterday. OBJECTIVE: Most Recent Vital Signs: BP: 147 mmHg/80 mmHg (07/03/23599) Pulse: 72 (07/03/23599) Temp: 36.28 C (07/03/23 0344) Temp Summary: Temp Min: 36.2 C (97.2 F) Max: 36.8 C (98.3 F) SpO2: 86 % (07/03/23599) O2 flow rate: 3 L/MIN (06/22/23 1230) Supplemental O2 Delivery: Room Air, None (07/03/23599) Vital Signs Last 24 Hours: Systolic BP: Most Recent Systolic BP Av.7 mmHg Min: 113 mmHg Max: 163 mmHg Temperature: Most Recent Temperature Av.4 C Min: 36.22 C Max: 36.83 C Pulse: Pulse Av.8 Min: 65 Max: 92 Respirations: Resp Av Min: 16 Max: 16 SpO2: SpO2 Av.4 % Min: 86 % Max: 98 % Constitutional: No acute distress HEENT: Moist mucous membranes. Chest: No increased work of breathing Neuro: Mild intellectual disability, speaks fluently but slowly Psych: Flat affect LABS REVIEWED: yes, reviewed Latest Reference Range & Units 07/03/23 00:04 07/03/23 06:21 Sodium 135 - 146 mmol/L 137 Potassium 3.5 - 5.1 mmol/L 3.9 Chloride 98 - 107 mmol/L 103 CO2 22 - 32 mmol/L 23 BUN 6 - 20 mg/dL 15 Creatinine 0.6 - 1.2 mg/dL 0.7 Estimated Glomerular Filtration Rate >=60 mL/min >90 Anion Gap 7 - 15 mmol/L 11 Glucose 70 - 120 mg/dL 155 (H) Calcium 8.4 - 10.2 mg/dL 9.3 Magnesium 1.5 - 2.6 mg/dL 2.3 Phosphorus 2.5 - 4.8 mg/dL 4.1 3.8 Protein 6.0 - 8.3 g/dL 6.0 LD <=250 U/L 256 (H) 213 Uric Acid 3.4 - 7.0 mg/dL 2.1 (L) 2.3 (L) CBC Rpt ! WBC 4.00 - 10.80 K/uL 6.89 RBC 4.50 - 5.25 M/uL 3.51 HGB 14.0 - 16.8 g/dL 10.6 (L) HCT 40.0 - 48.4 % 31.5 (L) MCV 82.0 - 99.5 fL 89.7 MCH 27.0 - 34.0 pg 30.2 MCHC 32.0 - 36.0 g/dL 33.7 RDW 11.5 - 15.5 % 12.3 PLT 140 - 400 K/uL 219 MPV 6.6 - 11.1 fL 9.9 CBC WITH WBC DIFFERENTIAL Rpt ! Absolute Neutrophils 1.80 - 7.70 K/uL 5.90 Absolute Lymphocytes 1.00 - 4.80 K/ul 0.29 (L) Absolute Monocytes 0.00 - 1.10 K/uL 0.65 Absolute Eosinophils 0.00 - 0.70 K/uL 0.00 Absolute Basophils 0.00 - 0.20 K/uL 0.00 Albumin 3.8 - 5.0 g/dL 3.7 (L) AST 10 - 50 U/L 20 ALT 10 - 50 U/L 55 (H) Alkaline Phosphatase 35 - 130 U/L 60 Bilirubin, Total <=1.2 mg/dL 0.3 Bilirubin, Direct 0.0 - 0.3 mg/dL <0.2 (H): Data is abnormally high (L): Data is abnormally low !: Data is abnormal Rpt: View report in Results Review for more information IMAGING REVIEWED: no new studies ASSESSMENT/PLAN: Farhad Franco is a 32 year old male referred to Palliative Medicine with the primary diagnosis of: Longstanding history of cerebral vasculitis, stroke ischemic at age of 7, presenting with new onset back pain and weight loss with large retroperitoneal mass suggestive of lymphoma (Burkitts vs diffuse large B-cell). Secondary Diagnoses are: mild intellectual disability, GERD, migraine headaches, adjustment disorder with depressed mood, nephrolithiasis, tobacco use disorder, hypertension, bronchial asthma, obesity class 2, possible undiagnosed obstructive sleep apnea, ADHD Neoplasm related pain: Shantas pain is complex: he has cancer pain, but he also has emotional and spiritual pain secondary to this cancer diagnosis and being away from his son. We have been talking to him about treating his pain more when he has functional difficulty rather than to dull the emotional pain. His mom is very much on board with this. He has been doing much better in the past 2 days. 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 Continue miralax daily and senna-S BID. Thank you for allowing us to participate in the ongoing care of this patient. Please don't hesitate to call or page with any additional concerns. Patient was discussed with Dr. Mack. Priscilla Navarro DO Fellow - Palliative Medicine 07/03/2023 Associated attestation - Grover Mack MD - 07/03/2023 2:43 PM EDT I saw and evaluated the patient today. I have reviewed the trainee note and agree. * Jamal Retana MD - 07/03/2023 8:13 AM EDT Images from the original note were not included. PROGRESS NOTE - Hematology [address] [address] Name: Farhad Franco Location: [facility] B846/A Date: 07/03/2023 Time: 8:13 AM SUBJECTIVE: Mother at bedside. 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 BM 07/03/2023. Denies any active complaints as per the mother. Watching Long's anatomy on device and doesn't want to be disturbed Denies any nausea, vomiting, chest pain. Swelling of legs more prominent around the foot, encouraged ambulation Review of Systems: Negative except as mentioned above Objective Physical Exam Most Recent Vital Signs: BP: 147 mmHg/80 mmHg (07/03/23599) Pulse: 72 (07/03/23599) Temp: 36.28 C (07/03/23 0344) Temp Summary: Temp Min: 36.2 C (97.2 F) Max: 36.8 C (98.3 F) SpO2: 86 % (07/03/23599) O2 flow rate: 3 L/MIN (06/22/23 1230) Supplemental O2 Delivery: Room Air, None (07/03/23599) Intake/Output Summary (Last 24 hours) at 07/03/2023 0813 Last data filed at 07/03/2023 0600 Gross per 24 hour Intake 3197.87 ml Output 2250 ml Net 947.87 ml Weight: 118.8 kg (262 lb) (06/20/232200) Weight: 125.5 kg (276 lb 9.6 oz) (07/03/23599) Constitutional: Young male, sitting on chair. Watching his device. No acute distress HEENT: Moist mucous membranes, no oral lesions or thrush. Chest: Normal respiratory effort. Bilateral air entry equal with no crackles or wheezing heard. CVS: S1, S2 + Abdomen: Soft, tenderness On the lower abdomen. No rigidity or rebound tenderness. Bowel sounds positive Neuro: Alert, awake and following commands. Moving extremities. Extremities: pedal edema more prominent on foot bilaterally Psych: flat affect Power PICC Double Lumen Right;Upper Arm (Active) Number of days: 8 STUDIES: Encounter Orders Labs and other studies reviewed with pertinent findings noted below: LABS: I have personally reviewed the following labs CBC/DIFF CHEMISTRY Lab results within last 7 days (see chart for full results) Units 07/03/23 0621 07/03/23 0004 BUN mg/dL -- 15 Creatinine mg/dL -- 0.7 Estimated Glomerular Filtration Rate mL/min -- >90 Sodium mmol/L -- 137 Potassium mmol/L -- 3.9 Chloride mmol/L -- 103 Calcium mg/dL -- 9.3 Phosphorus mg/dL 3.8 4.1 Magnesium mg/dL 2.3 -- CO2 mmol/L -- 23 Anion Gap mmol/L -- 11 Glucose mg/dL -- 155* Lab results within last 7 days (see chart for full results) Units 07/03/23 0621 WBC K/uL 6.89 HGB g/dL 10.6* PLT K/uL 219 Neutrophils % % 85.7* Monocytes % % 9.4 LFTs Lab results within last 7 days (see chart for full results) Units 07/03/23 0621 Albumin g/dL 3.7* Protein g/dL 6.0 AST U/L 20 ALT U/L 55* Alkaline Phosphatase U/L 60 Bilirubin, Total mg/dL 0.3 Bilirubin, Direct mg/dL <0.2 A. 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 See comment. at 1607 Sections show small core needle biopsies with [...] controls. CD3 stain background small sized T-cells. Melbeta-5 stains B-cells and is diffusely positive in [...] the B-cells. P53 shows weak diffuse staining. Assessment and Plan Burkitt's Lymphoma At risk for TLS -FISH with t(8: 14). EBV+ . EBV DNA positive in blood. -CTAP 06/24: Slightly enlarging mass from admission. - BMBx without any lymphoma involvement. US scrotum with no evidence of intratesticular lesion. CT head with no visible evidence of lymphoma.Appreciate ophthalmology consult, no ocular involvement. CSF studies to follow from 07/02/2023 - Pre phase Cytoxan with steroids: 06/26/23 to 06/30/2023. FISH panel suggest t(8,14) --DA-REPOCH Day 1 on 07/02/2023. LP and IT MTX 07/02/2023. No steroids for cycle 1 as he got pre phase steroids. Will complete 4 days on 07/06/2023 night. Needs G- CSF support. -IT chemo for a total of 8 doses. Can start with cycle 3 to cycle 6 on D1 and D5 - Prophylaxis: Acyclovir 400 mg twice daily, fluconazole 400 mg daily, bactrim. NS 75 mL/hour, Allopurinol 300 mg BID. Needs Levofloxacin once ANC <500 - Uric acid improved after rasburicase - TLS labs Q 8 hours. Will change to BID and daily based on trend Neoplasm related pain - Palliative on board: pain is complex. Stop Belbuca and Continue Subutex 1 mg SL three times daily(07/01/23). Doesn't need prior Auth per pharmacy. 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 Oral Hydromorphone 3 mg q.4 hours PRN moderate to severe pain. Morphine 2 mg IV every 4 hours for breakthrough pain( pain that does not improve to oral hydromorphone). Appreciate recommendations. -naloxone in the hospital and also at home when he is discharged. -Add Celebrex with close monitoring of platelets for now. NSAIDS will increase risk of kidney dysfunction and bleeding with TLS related to lymphoma and cytopenias related to chemo. Cerebral vasculitis Migraines Seizure disorder - Continue aspirin, Depakote, Topamax, propranolol. ADHD - Discussed events of 06/29/2023, making him aware that destructive behavior will not be tolerated for the safety of staff. Mother was present during discussion. Patient assures this behavior will stop( was dicussed by Kike Marquez) Hypertension - Continue COMMUNITY AFFAIRS MANAGER hydrochlorothiazide. May need to hold if kidney dysfunction develops GERD - Continue COMMUNITY AFFAIRS MANAGER omeprazole History of asthma - COMMUNITY AFFAIRS MANAGER Breo Ellipta, albuterol nebs q.6 hours p.r.n. Full Code: Discussed with patient and mom DVT ppx: lovenox. Disposition: Patient was scheduled to see Dr. Chaudhary on 06/29/2023 but was canceled due to hospital admission. Needs to arrange a follow-up with Dr. Chaudhary closer to discharge. After 5 days of DA-REPOCH. Probably 07/08/2023 . Needs G-CSF support as outpatient. IT chemo from cycle 3-6. Working on arranging this with Fluoroscopy IR referral placed to get Mediport as outpatient . Discontinue PICC on discharge Pt discussed with Dr. Jesse Retana MD Hematology and Oncology, PGY-5 [facility] This note was completed using the dictation program Fluency Direct. As such, there may be misspellings, word substitutions, or other variations that should not change the essence of the clinical content of this encounter note. If there is need for further clarification, please direct questions to the provider listed above. Associated attestation - Yaz Molina MD - 07/03/2023 4:37 PM EDT I saw and evaluated the patient today. I have reviewed the trainee note and agree. I spent a total of 30 minutes coordinating, documenting, and providing care for this patient excluding time spent in the performance of separately billed services. * Jamal Retana MD - 07/02/2023 3:08 PM EDT Images from the original note were not included. PROGRESS NOTE - Hematology [address] [address] Name: Farhad Franco Location: [facility] B846/A Date: 07/02/2023 Time: 3:08 PM SUBJECTIVE: Mother at bedside. 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 Palliative team titrating the medication. Last BM 07/01/2023. Underwent LP procedure and IT chemo today Denies any nausea, vomiting, chest pain. Noticed swelling of legs more prominent in the foot. Review of Systems: Negative except as mentioned above Objective Physical Exam Most Recent Vital Signs: BP: 144 mmHg/93 mmHg (07/02/23 1432) Pulse: 85 (07/02/23 1432) Temp: 36.44 C (07/02/23 143) Temp Summary: Temp Min: 36.1 C (97 F) Max: 37 C (98.6 F) SpO2: 96 % (07/02/23 143) O2 flow rate: 3 L/MIN (06/22/23 1230) Supplemental O2 Delivery: Room Air, None (07/02/23 143) Intake/Output Summary (Last 24 hours) at 07/02/2023 1508 Last data filed at 07/02/2023 0600 Gross per 24 hour Intake 1572.35 ml Output 200 ml Net 1372.35 ml Weight: 118.8 kg (262 lb) (06/20/23 2201) Weight: 125.4 kg (276 lb 7.3 oz) (07/02/23 0900) Constitutional: Young male, sitting on the bed. Playing on his electronic device. No acute distress HEENT: Moist mucous membranes, no oral lesions or thrush. Chest: Normal respiratory effort. Bilateral air entry equal with no crackles or wheezing heard. CVS: S1, S2 + Abdomen: Soft, tenderness On the lower abdomen. No rigidity or rebound tenderness. Bowel sounds positive Neuro: Alert, awake and following commands. Moving extremities. Extremities: pedal edema more prominent on foot bilaterally Psych: flat affect Power PICC Double Lumen Right;Upper Arm (Active) Number of days: 7 STUDIES: Encounter Orders Labs and other studies reviewed with pertinent findings noted below: LABS: I have personally reviewed the following labs CBC/DIFF CHEMISTRY Lab results within last 7 days (see chart for full results) Units 07/02/23 0327 BUN mg/dL 16 Creatinine mg/dL 0.6 Estimated Glomerular Filtration Rate mL/min >90 Sodium mmol/L 138 Potassium mmol/L 3.4* Chloride mmol/L 104 Calcium mg/dL 8.9 Phosphorus mg/dL 4.2 Magnesium mg/dL 2.2 CO2 mmol/L 25 Anion Gap mmol/L 9 Glucose mg/dL 105 Lab results within last 7 days (see chart for full results) Units 07/02/23 0327 WBC K/uL 7.05 HGB g/dL 10.4* PLT K/uL 237 Neutrophils % % 62.8 Monocytes % % 14.3* LFTs Lab results within last 7 days (see chart for full results) Units 07/02/23 0327 Albumin g/dL 3.7* Protein g/dL 6.2 AST U/L 17 ALT U/L 53* Alkaline Phosphatase U/L 62 Bilirubin, Total mg/dL 0.2 Bilirubin, Direct mg/dL <0.2 A. 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 See comment. at 1607 Sections show small core needle biopsies with [...] controls. CD3 stain background small sized T-cells. Melbeta-5 stains B-cells and is diffusely positive in [...] the B-cells. P53 shows weak diffuse staining. Assessment and Plan Burkitt's Lymphoma At risk for TLS -FISH with t(8: 14). EBV+ -CTAP 06/24: Slightly enlarging mass from admission. - BMBx without any lymphoma involvement. US scrotum with no evidence of intratesticular lesion. CT head with no visible evidence of lymphoma.Appreciate ophthalmology consult, no ocular involvement. CSF studies to follow from 07/02/2023 - Started pre phase Cytoxan with steroids: 06/26/23 to 06/30/2023. FISH panel suggest t(8,14) --DA-REPOCH Day 1 on 07/02/2023. LP and IT MTX 07/02/2023. No steroids for cycle 1 as he got pre phase steroids. - Prophylaxis: Acyclovir 400 mg twice daily, NS 75 mL/hour, Allopurinol 300 mg BID. - Uric acid improved after rasburicase - TLS labs Q 8 hours for D1 of R-EPOCH . Will change to BID and daily based on trend Neoplasm related pain - Palliative on board: pain is complex. Stop Belbuca and Continue Subutex 1 mg SL three times daily(07/01/23). 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 Stop PO MSIR. Oral Hydromorphone 3 mg q.4 hours PRN moderate tosevere pain. Appreciate recommendations. Morphine 2 mg IV every 4 hours for breakthrough pain, painthat does not improve to oral hydromorphone. -naloxone in the hospital and also at home when he is discharged. -Add Celebrex with close monitoring of platelets for now. NSAIDS will increase risk of kidney dysfunction and bleeding with TLS related to lymphoma and cytopenias related to chemo. Hypokalemia this AM which may correct with lysis Cerebral vasculitis Migraines Seizure disorder - Continue aspirin(Hold for LP today), Depakote, Topamax, propranolol. ADHD - Discussed events of 06/29/2023, making him aware that destructive behavior will not be tolerated for the safety of staff. Mother was present during discussion. Patient assures this behavior will stop( was dicussed by Kike Marquez) Hypertension - Continue COMMUNITY AFFAIRS MANAGER hydrochlorothiazide. May need to hold if kidney dysfunction develops GERD - Continue COMMUNITY AFFAIRS MANAGER omeprazole History of asthma - COMMUNITY AFFAIRS MANAGER Breo Ellipta, albuterol nebs q.6 hours p.r.n. Full Code: Discussed with patient and mom DVT ppx: lovenox. Hold Celebrex, Lovenox, aspirin on 07/02/2023 for LP Disposition: Patient was scheduled to see Dr. Chaudhary on 06/29/2023 but was canceled due to hospital admission. Needs to arrange a follow-up with Dr. Chaudhary closer to discharge. After 5 days of DA-REPOCH. Probably 07/08/[address] Jesse Retana MD Hematology and Oncology, PGY-5 [facility] This note was completed using the dictation program Fluency Direct. As such, there may be misspellings, word substitutions, or other variations that should not change the essence of the clinical content of this encounter note. If there is need for further clarification, please direct questions to the provider listed above. Associated attestation - Yaz Molina MD - 07/02/2023 5:25 PM EDT I saw and evaluated the patient today. I have reviewed the trainee note and agree. I spent a total of 30 minutes coordinating, documenting, and providing care for this patient excluding time spent in the performance of separately billed services. * Grover Mack MD - 07/02/2023 9:10 AM EDT PROGRESS NOTE - Palliative Medicine [address] [address] Name: Farhad Franco Location: [facility] B846/[id number] Date: 07/02/2023 Time: 9:10 AM SUBJECTIVE: He still has pain but it is unchanged from before. He only used 6 mg of IV morphine in the last 23 hours. He is able to eat and drink. He does not have nausea or vomiting. His bowels move. He ambulates. He is calmer than yesterday. Current Facility-Administered Medications: Acetaminophen (Tylenol) tab 650 mg, 650 mg, Oral, Once, Yaz Molina MD [START ON 07/06/2023] cycloPHOSphamide (Cytoxan) 1,880 mg in NSS 500 mL infusion, 750 mg/m2 (Treatment Plan Recorded), IV Piggyback, Once, Yaz Molina MD diphenhydrAMINE (Benadryl) cap 50 mg, 50 mg, Oral, Once, Yaz Molina MD diphenhydrAMINE (Benadryl) inj 50 mg, 50 mg, IV Push, PRN, Yaz Molina MD EPINEPHrine 1 MG/ML inj 0.3 mg, 0.3 mg, Intramuscular, PRN, Yaz Molina MD etoposide (VEPESID) 130 mg, vinCRIStine sulfate 1 mg, DOXOrubicin (Adriamycin) 26 mg in NSS 1,000 mL infusion, , Intravenous, Q24H, Yaz Molina MD Famotidine (Pepcid) tab 20 mg, 20 mg, Oral, Once, Yaz Molina MD Fosaprepitant Dimeglumine (Emend) 150 mg, ondansetron (Zofran) 16 mg in NSS 250 mL Infusion, 150 mg, IV Piggyback, Once, Yaz Molina MD Hydrocortisone Sod Suc (PF) (Solu-Cortef) inj 100 mg, 100 mg, IV Push, PRN, Yaz Molina MD LORAzepam (Ativan) tab 0.5 mg, 0.5 mg, Oral, Once PRN, Yaz Molina MD OLANZapine (zyPREXA) tab 10 mg, 10 mg, Oral, QHS, Yaz Molina MD [START ON 07/03/2023] ondansetron (Zofran) tab 16 mg, 16 mg, Oral, Q24H, Yaz Molina MD oxygen GAS, , Inhalation, Oxygen, Yaz Molina MD predniSONE (Deltasone) tab 150 mg, 60 mg/m2 (Treatment Plan Recorded), Oral, BID (0900,1600), Yaz Molina MD riTUXimab-pvvr (Ruxience) 900 mg in NSS 500 mL ivpb, 375 mg/m2 (Treatment Plan Recorded), IV Piggyback, Once, Yaz Molina MD [START ON 07/03/2023] aspirin enteric coated tab 81 mg, 81 mg, Oral, Daily(AM), Kike Marquez PA-C buprenorphine HCL (Subutex) sublingual tab 1 mg, 1 mg, Sublingual, TID, Lay Navarroly A, DO, 1 mg at 07/02/23 0617 [START ON 07/03/2023] celecoxib (CeleBREX) cap 200 mg, 200 mg, Oral, Daily(AM), Kike Marquez PA-C [START ON 07/03/2023] Enoxaparin (Lovenox) inj 40 mg, 40 mg, Subcutaneous, Daily(AM), Kike Marquez PA-C HYDROmorphone (Dilaudid) tab 3 mg, 3 mg, Oral, Q4H PRN, Priscilla Navarro A, DO, 3 mg at 07/01/23 2235 morphine 1 mg/mL GROUNDSKEEPING MAINTENANCE WORKER infusion, , GROUNDSKEEPING MAINTENANCE WORKER IV Infusion, Continuous, Priscilla Navarro A DO, Nurse Change at07/01/23 1926 Polyethylene Glycol 3350 (Miralax) oral powder 17 g, 1 Packet, Oral, Daily(AM), Priscilla Navarro A, DO, 17 g at 07/01/23 0956 senna-docusate (Senokot-S) 1 Tablet, 1 Tablet, Oral, BID (0800,2000), Priscilla Navarro A, DO, 1 Tablet at 07/01/23 2235 NSS infusion, , Intravenous, Continuous, Kike Marquez PA-C, Last Rate: 75 mL/hr at 07/02/23 0630, Rate Verify at 07/02/23 0630 prochlorperazine (Compazine) inj 10 mg, 10 mg, IV Push, Q6H PRN, Arnulfo Lowe PA-C Acetaminophen (Tylenol) tab 650 mg, 650 mg, Oral, Q6H PRN, Pepe Salgado PA-C, 650 mg at 06/30/23 0306 loperamide (Imodium) cap 4 mg, 4 mg, Oral, Q6H PRN, Pepe Salgado PA-C, 4 mg at 06/27/23 1125 predniSONE (Deltasone) tab 145 mg, 145 mg, Oral, Q24H, Pepe Salgado PA-C, 145 mg at 07/01/23 0850 Acyclovir (Zovirax) tab 400 mg, 400 mg, Oral, BID(AM/PM), Drake Pyle MD, 400 mg at 07/01/23 2235 dextrose 50% inj 25 mL, 25 mL, IV Push, PRN, Jamal Retana MD dextrose 50% inj 50 mL, 50 mL, IV Push, PRN, Jamal Retana MD glucagon (Glucagen) inj 1 mg, 1 mg, Intramuscular, PRN, Jamal Retana MD Glucose (Glutose 15) 40 % gel 15 g of glucose, 15 g of glucose, Oral, PRN, Jamal Retana MD Glucose (Glutose 15) 40 % gel 30 g of glucose, 30 g of glucose, Oral, PRN, Jamal Retana MD glucose chew tab 16 g, 16 g, Oral, PRN, Jamal Retana MD hEParin 100 UNIT/ML Lock Flush inj 300 Units, 3 mL, IV Push, PRN, Drake Pyle MD insulin aspart (NovoLOG) inj, , Subcutaneous, With Meals and HS, Jamal Retana MD, 1 Units at 07/01/23 1818 Oral Hygiene: Mouth Swab with dentifrice, , Oral, After Meals and at Bedtime, Drake Pyle MD, Given at 06/29/23 2200 sodium chloride 0.9 % flush/inj 10 mL, 10 mL, IV Push, Q8H, Drake Pyle MD, 10 mL at07/02/23 0600 Allopurinol (Zyloprim) tab 300 mg, 300 mg, Oral, BID(AM/PM), Arnulfo Lowe PA-C, 300 mg at07/01/23 2235 Alteplase (Cathflo Activase) inj 2 mg, 2 mg, IV Push, PRN, Carrington Retanala, MD chlorhexidine gluconate cloth 2 % pad, , External, Daily 1000, Jamal Retana MD, Given at 07/01/23 2000 Saline ([place]) nasal spray, 1 [place], Nasal, PRN, Melanie Alatorre CRNP, 1 [place] at 06/24/23 1723 naloxone (Narcan) 0.4 MG/ML inj 0.08 mg, 0.08 mg, IV Push, PRN, Andrea Coppola MD Albuterol Sulfate (Proventil) (2.5 MG/3ML) 0.083% inhalation solution 2.5 mg, 2.5 mg, Nebulizer, Q6H PRN, Muna Solitario DO divalproex ER (Depakote ER) extended release tab 500 mg, 500 mg, Oral, QHS, LabMuna adam, DO, 500 mg at 07/01/23 2235 fluticasone furoate-vilanterol (BREO ellipta) 100-25 MCG/ACT inhaler 1 Puff, 1 Puff, Inhalation, BID(AM/PM), Muna Solitario DO, 1 Puff at 07/01/23 2240 hydroCHLOROthiazide cap 12.5 mg, 12.5 mg, Oral, Daily(AM), Labjose mariaosMuna lepe, DO, 12.5 mg at 07/01/23 0850 Loratadine (Claritin) tab 10 mg, 10 mg, Oral, Daily(AM), Muna Solitario, DO, 10 mg at 07/01/23 0852 omeprazole (PriLOSEC) cap 20 mg, 20 mg, Oral, Daily(AM), LabMuna adam, DO, 20 mg at 07/01/23 0852 ondansetron ODT (Zofran) tab 4 mg, 4 mg, On Tongue, Q8H PRN, Muna Solitario DO, 4 mg at 06/28/23 2232 propranolol (Inderal) tab 40 mg, 40 mg, Oral, BID(AM/PM), Muna Solitario DO, 40 mg at 07/01/23 2235 sodium chloride 0.9 % flush/inj 3 mL, 3 mL, IV Push, PRN, Muna Solitario DO topiramate (topAMAX) tab 100 mg, 100 mg, Oral, BID(AM/PM), Muna Solitario DO, 100 mg at 07/01/232234 Hydromorphone 3 mg PO x 2 OBJECTIVE: Most Recent Vital Signs: BP: 120 mmHg/63 mmHg (07/02/23 030) Pulse: 74 (07/02/23299) Temp: 36.11 C (07/02/23299) Temp Summary: Temp Min: 36.1 C (97 F) Max: 37 C (98.6 F) SpO2: 100 % (07/02/23299) O2 flow rate: 3 L/MIN (06/22/23 1230) Supplemental O2 Delivery: Room Air, None (07/02/23299) Vital Signs Last 24 Hours: Systolic BP: Most Recent Systolic BP Av.3 mmHg Min: 120 mmHg Max: 153 mmHg Temperature: Most Recent Temperature Av.6 C Min: 36.11 C Max: 37 C Pulse: Pulse Av.5 Min: 74 Max: 96 Respirations: Resp Av Min: 14 Max: 16 SpO2: SpO2 Av.4 % Min: 96 % Max: 100 % Constitutional: no acute distress Chest: normal respiratory effort Neuro: alert Psych: normal mood and affect LABS REVIEWED: yes, reviewed IMAGING REVIEWED: yes, reviewed Creatinine Results: Lab Results Component Value Date/Time CREATININE - [facility] 0.6 07/02/2023 03:27 AM CREATININE - [facility] 0.7 07/01/2023 03:27 AM CREATININE - [facility] 0.7 06/30/2023 03:19 AM CREATININE - [facility] 1.1 11/11/2019 01:50 PM CREATININE - [facility] 1.0 11/15/2013 08:59 AM CREATININE, RANDOM URINE - [facility] 211 08/02/2021 09:59 AM CREATININE-OUTSIDE LAB 1.10 06/19/2023 12:00 AM CREATININE-OUTSIDE LAB 1.00 06/10/2023 12:00 AM CREATININE-OUTSIDE LAB 0.90 06/09/2023 12:00 AM Sodium Results: Lab Results Component Value Date/Time SODIUM - [facility] 138 07/02/2023 03:27 AM SODIUM - [facility] 140 07/01/2023 03:27 AM SODIUM - [facility] 139 06/30/2023 03:19 AM SODIUM - [facility] 140 11/11/2019 01:50 PM SODIUM - [facility] 139 11/15/2013 08:59 AM Hemoglobin Results: Lab Results Component Value Date/Time HGB 10.4 (L) 07/02/2023 03:27 AM HGB 11.2 (L) 07/01/2023 03:27 AM HGB 10.8 (L) 06/30/2023 03:19 AM HGB 13.8 (A) 06/19/2023 12:00 AM HGB 13.9 (A) 06/10/2023 12:00 AM HGB 13.6 (A) 06/09/2023 12:00 AM HGB 16.2 11/11/2019 01:50 PM HGB 15.4 11/15/2013 08:59 AM Sodium Results: Lab Results Component Value Date/Time SODIUM - [facility] 138 07/02/2023 03:27 AM SODIUM - [facility] 140 07/01/2023 03:27 AM SODIUM - [facility] 139 06/30/2023 03:19 AM SODIUM - [facility] 140 11/11/2019 01:50 PM SODIUM - [facility] 139 11/15/2013 08:59 AM US SCROTUM/TESTES Narrative: EXAM US SCROTUM/TESTES HISTORY Staging for high grade lymphoma COMPARISON CT abdomen/pelvis 06/25/2023. FINDINGS RIGHT: The testicle is homogeneous in echogenicity measuring 3.9 x 2.7 x 2.1 cm. No lesions identified. There is no hydrocele. Blood flow is identified to the testicle Epididymal head cyst measuring 0.6 x 0.5 x 0.7 cm. Varicocele. LEFT: The testicle is homogeneous in echogenicity measuring 3.7 x 2.9 x 1.9 cm. No lesions identified. There is no hydrocele. Blood flow is identified to the testicle Two, left epididymal head cysts measuring up to 0.3 x 0.5 x 0.3 cm. Varicocele. Scrotal amarjit. Bilateral testicular flow appears nearly symmetric. Impression: IMPRESSION 1. No sonographic evidence of intratesticular lesion. 2. Bilateral varicoceles. I have personally reviewed this examination and agree with the resident/fellow physician's interpretation. CT HEAD/BRAIN W WO CONTRAST Narrative: EXAM CT HEAD WITHOUT CONTRAST 06/29/2023 HISTORY 32 y/o M Staging for stage IV high grade lymphoma TECHNIQUE Pre and postcontrast CT of the head performed. COMPARISON 12/06/2013 in correlation made with FINDINGS No acute intracranial hemorrhage or abnormal extra-axial collection. There is generalized volume loss with prominence of the ventricles and sulci. No midline shift or mass effect. Scattered areas of patchy hypoattenuation are present within the cerebral white matter which are nonspecific but can beseen with chronic small vessel ischemia. An area of encephalomalacia and gliosis seen within the left occipital lobe no abnormal intracranial enhancement develops following intravenous contrast administration. If there is continued clinical concern for intracranial disease, MRI brain with and without contrast is suggested which is more sensitive. Mucous retention cyst is seen within the inferior left maxillary sinus. Impression: IMPRESSION 1. No acute intracranial abnormality. 2. No abnormal intracranial enhancement. If there is continued clinical concern for intracranial disease, MRI brain with and without contrast is suggested which is more sensitive. ASSESSMENT/PLAN: This is a 32-year-old man with Burkitt's lymphoma, history of cerebral vasculitis, migraines, seizure disorder, ADHD, mild intellectual disability. We are consulted for symptom management. Cancer pain: The pain is bearable and the amount that he is using of IV morphine is relatively small. He is motivated to continue trying oral hydromorphone and to discontinue the GROUNDSKEEPING MAINTENANCE WORKER. I am hoping this will allow him more movement. His goal is to go back home. He is going to get chemotherapy later today. To monitor for toxicity. Recommendations: Continue buprenorphine 1 mg sublingually 3 times a day (to find out if it requires prior authorization) Continue hydromorphone 3 mg by mouth every 4 hours as needed for pain Discontinue morphine GROUNDSKEEPING MAINTENANCE WORKER To have available morphine 2 mg IV every 4 hours breakthrough pain - pain that does not respond to oral hydromorphone. Suggest to have available naloxone in the hospital and also at home when he is discharged. Thank you for allowing us to participate in the ongoing care of this patient. Please don't hesitate to call or page with any additional concerns. * Jamal Retana MD - 07/01/2023 5:42 PM EDT Images from the original note were not included. PROGRESS NOTE - Hematology [address] [address] Name: Farhad Franco Location: [facility] B846/A Date: 07/01/2023 Time: 5:43 PM SUBJECTIVE: Mother at bedside. He continues to be on GROUNDSKEEPING MAINTENANCE WORKER, reports sub optimal pain control. Palliative following to adjust the medications. At first, He is concerned about chemotherapy side effects. Later after discussion with the family he consented for the chemotherapy. Review of Systems: Negative except as mentioned above Objective Physical Exam Most Recent Vital Signs: BP: 138 mmHg/87 mmHg (07/01/23 153) Pulse: 87 (07/01/23 153) Temp: 36.83 C (07/01/231533) Temp Summary: Temp Min: 36.5 C (97.7 F) Max: 36.8 C (98.3 F) SpO2: 97 % (07/01/23 153) O2 flow rate: 3 L/MIN (06/22/23 1230) Supplemental O2 Delivery: Room Air, None (07/01/23 153) Intake/Output Summary (Last 24 hours) at 07/01/2023 1743 Last data filed at 07/01/2023 1200 Gross per 24 hour Intake 2548.8 ml Output 2250 ml Net 298.8 ml Weight: 118.8 kg (262 lb) (06/20/23 220) Weight: 125.2 kg (276 lb) (06/27/232104) Constitutional: Young male, no acute distress sitting on bed mother at bedside HEENT: Moist mucous membranes, no oral lesions or thrush. Chest: Normal respiratory effort. Bilateral air entry equal with no crackles or wheezing heard. CVS: S1, S2 + Abdomen: Soft, tenderness On the lower abdomen. No rigidity or rebound tenderness. Bowel sounds positive Neuro: Alert, awake and following commands. Moving extremities. Power PICC Double Lumen Right;Upper Arm (Active) Number of days: 6 STUDIES: Encounter Orders Labs and other studies reviewed with pertinent findings noted below: LABS: I have personally reviewed the following labs CBC/DIFF CHEMISTRY Lab results within last 7 days (see chart for full results) Units 07/01/23 0327 BUN mg/dL 15 Creatinine mg/dL 0.7 Estimated Glomerular Filtration Rate mL/min >90 Sodium mmol/L 140 Potassium mmol/L 3.6 Chloride mmol/L 106 Calcium mg/dL 9.4 Phosphorus mg/dL 3.7 Magnesium mg/dL 2.3 CO2 mmol/L 24 Anion Gap mmol/L 10 Glucose mg/dL 112 Lab results within last 7 days (see chart for full results) Units 07/01/23 0327 WBC K/uL 7.05 HGB g/dL 11.2* PLT K/uL 241 Neutrophils % % 65.9 Monocytes % % 11.9* LFTs Lab results within last 7 days (see chart for full results) Units 07/01/23 0327 Albumin g/dL 4.0 Protein g/dL 6.7 AST U/L 21 ALT U/L 56* Alkaline Phosphatase U/L 68 Bilirubin, Total mg/dL 0.3 Bilirubin, Direct mg/dL <0.2 A. 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 See comment. at 1607 Sections show small core needle biopsies with [...] controls. CD3 stain background small sized T-cells. Melbeta-5 stains B-cells and is diffusely positive in [...] the B-cells. P53 shows weak diffuse staining. Assessment and Plan Burkitt's Lymphoma -FISH with t(8: 14) -CTAP 06/24: Slightly enlarging mass from admission. - BMBx without any lymphoma involvement. US scrotum with no evidence of intratesticular lesion. CT head with no visible evidence of lymphoma.Appreciate ophthalmology consult, no ocular involvement - Started pre phase Cytoxan with steroids- 06/25-completed day 5 on 06/30/2023 - Prophylaxis: Acyclovir 400 mg twice daily, NS 75 mL/hour, Allopurinol 300 mg BID. -Start on DA-REPOCH on 07/02/2023. Needs LP and IT MTX tomorrow. Chemo consent obtained today Controlled TLS - Uric acid improved after rasburicase - TLS labs daily and allopurinol, IVF Neoplasm related pain - Palliative on board: pain is complex. Stop Belbuca and start Subutex 1 mg SL three times daily. GROUNDSKEEPING MAINTENANCE WORKER morphine 2 mg IV every 60 minutes as needed for breakthrough pain. Stop PO MSIR. Had hydromorphone 3 mg q.4 hours PRN moderate to severe pain. Appreciate recommendations -Add Celebrex with close monitoring of platelets for now. NSAIDS will increase risk of kidney dysfunction and bleeding with TLS related to lymphoma and cytopenias related to chemo. Cerebral vasculitis Migraines Seizure disorder - Continue aspirin, Depakote, Topamax, propranolol. ADHD - Discussed events of 06/29/2023, making him aware that destructive behavior will not be tolerated for the safety of staff. Mother was present during discussion. Patient assures this behavior will stop( was dicussed by Kike Marquez) Hypertension - Continue COMMUNITY AFFAIRS MANAGER hydrochlorothiazide GERD - Continue COMMUNITY AFFAIRS MANAGER omeprazole History of asthma - COMMUNITY AFFAIRS MANAGER Breo Ellipta, albuterol nebs q.6 hours p.r.n. Full Code: Discussed with patient and mom DVT ppx: lovenox. Hold Celebrex, Lovenox, aspirin on 07/02/2023 for LP Disposition: Patient was scheduled to see Dr. Chaudhary on 06/29/2023 but was canceled due to hospital admission. Needs to arrange a follow-up with Dr. Chaudhary closer to discharge. After 5 days of DA-REPOCH. Pt discussed with Dr. Jesse Retana, MD Hematology and Oncology, PGY-5 [facility] This note was completed using the dictation program Fluency Direct. As such, there may be misspellings, word substitutions, or other variations that should not change the essence of the clinical content of this encounter note. If there is need for further clarification, please direct questions to the provider listed above. Associated attestation - Yaz Molina MD - 07/02/2023 8:36 AM EDT I saw and evaluated the patient 07/01/23 . I have reviewed the trainee note and agree. I spent a total of 30 minutes coordinating, documenting, and providing care for this patient excluding time spent in the performance of separately billed services. * Jasmine Richardson [facility] - 07/01/2023 11:00 AM EDT Images from the original note were not included. PHARMACIST: REGIMEN NOTE Physician Listed Hematology/Oncology Diagnosis Code: C85.13 Communication Order: Completed [place] Plan: Completed Signed consent: Completed Pre-cert complete: Not completed for inpatient administration Heater Operator/Oncologist: Dr. Cleveland on discharge Current Treatment Protocol/Regimen Name: DA-EPOCH Cycle: 1 Treatment plan medications: Rituximab: IV: 375 mg/m2 day 1 Doxorubicin 10 mg/m2/day over 96 hours Etoposide 50 mg/m2/day over 96 hours Vincristine 0.4 mg/m2/day over 96 hours Cyclophosphamide: IV: 750 mg/m2 day 5 Prednisone 60 mg/m2 Twice daily (hold for cycle 1 as already received prephase) Reference: Anette Desai, Melanie S, Linda Law, et al. Low-intensity therapy in adults with Burkitt's lymphoma. N Engl J Med 2013;369:6807-4276. Maryam Law, Anette Desai, Julia MUÑOZ, et al. Multicenter study of risk-adapted therapy with dose-adjusted EPOCH-R in adults with untreated Burkitt lymphoma. J Clin Oncol 2020;38:2624-3484. Supportive Care: Emesis prophylaxis: Ondansetron 16 mg PO daily, given 30 minutes prior to chemotherapy Hypersensitivity prophylaxis: Diphenhydramine 50 mg IV Push once PRN Hydrocortisone 100 mg IV Push once PRN Epinephrine 0.3 mg IM once PRN Antimicrobial prophylaxis: Acyclovir 400 mg PO BID Hydration: NSS @ 125 mL/hour TLS prophylaxis: Allopurinol 300 mg PO BID [employer]PER[employer]OR [employer]ATE [employer]MING prophylaxis IT Methotrexate 12 mg Days 1& 5 Take home medication compliance: Date Last Comprehensive Medication Review Performed: 06/26/2023 Medication Compliant: yes Medication Refills: No refills needed Patient Description: Weight: 120.2 kg Height: 180.3 cm BSA: body surface area is 2.45 meters squared. BMI: Body mass index is 38.49 kg/m. Comments regarding dose calculations: Actual Body Weight Monitoring Parameters CBC and CMP reviewed. Estimated ClCr = Serum creatinine: 0.7 mg/dL 07/01/23 0327 Estimated creatinine clearance: 200.4 mL/min EF: 55% (06/24/2023) Anthracycline cumulative dose: 0% doxorubicin equivalents Hepatitis panel (date): Hepatin A, B, and C negative on 06/24/2023 Drug interaction assessment: Treatment plan and current medication list evaluated for drug-drug interactions. No clinically significant drug interaction identified Oncology Treatment History: 06/22/2023: A. 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, Ki-67 shows a high proliferation rate of 80-90%; BcL-2 negative, Bcl-6 and Myc arrangements detected: 06/26/2023: CALGB 1002 Pre-phase cytoxan 07/01/2023: DA-REPOCH Chemotherapy note completed by: Jasmine Richardson, PharmD, BCOP Clinical Pharmacist, [facility] Oral Chemotherapy [facility] 07/01/23 4:03 PM * Priscilla Navarro DO - 07/01/2023 8:16 AM EDT PROGRESS NOTE - Palliative Medicine [address] [address] Name: Farhad Franco Location: [facility] B846/A Date: 07/01/2023 Time: 8:16 AM SUBJECTIVE: Patient seen and chart reviewed. Family present: yes, mother Anne-Marie Llamas had another difficult night. He was upset about today's plan to start chemo and refused to talk to the nurses. In the last 18 hours he has received total GROUNDSKEEPING MAINTENANCE WORKER 18 mg (9 doses of morphine 2 mg).He took 2 doses of MSIR 15 mg and told us that this was not effective - he feels the IV medication is more helpful. Tolerating belbuca micro-dosing regimen, currently 750 mcg BID. When asked about his pain, he reported his pain had risen from 5/10 to 8/10 when he asked for the morphine tablet, and as it did not help, he then dosed with the GROUNDSKEEPING MAINTENANCE WORKER. The pain is similar to when he was admitted: locatedacross lower back, sharp at times. He has been ambulating in his room throughout the day. His diarrhea is resolved and in fact it has been a few days since his last BM (06/27). He is eating okay. Nausea has not been an issue. No new complaints since our visit yesterday. OBJECTIVE: Most Recent Vital Signs: BP: 145 mmHg/82 mmHg (07/01/23 07) Pulse: 88 (07/01/23734) Temp: 36.5 C (07/01/23734) Temp Summary: Temp Min: 36.4 C (97.5 F) Max: 37.8 C (100.1 F) SpO2: 100 % (07/01/23734) O2 flow rate: 3 L/MIN (06/22/23 1230) Supplemental O2 Delivery: Room Air, None (07/01/23734) Vital Signs Last 24 Hours: Systolic BP: Most Recent Systolic BP Av.2 mmHg Min: 126 mmHg Max: 146 mmHg Temperature: Most Recent Temperature Av.8 C Min: 36.39 C Max: 37.83 C Pulse: Pulse Av.4 Min: 80 Max: 91 Respirations: Resp Av.4 Min: 14 Max: 20 SpO2: SpO2 Av.9 % Min: 93 % Max: 100 % Constitutional: No acute distress HEENT: Moist mucous membranes. Chest: No increased work of breathing Neuro: Mild intellectual disability, speaks fluently but slowly Psych: Flat affect LABS REVIEWED: yes, reviewed Latest Reference Range & Units 07/01/23 03:27 Sodium 135 - 146 mmol/L 140 Potassium 3.5 - 5.1 mmol/L 3.6 Chloride 98 - 107 mmol/L 106 CO2 22 - 32 mmol/L 24 BUN 6 - 20 mg/dL 15 Creatinine 0.6 - 1.2 mg/dL 0.7 Estimated Glomerular Filtration Rate >=60 mL/min >90 Anion Gap 7 - 15 mmol/L 10 Glucose 70 - 120 mg/dL 112 Calcium 8.4 - 10.2 mg/dL 9.4 Magnesium 1.5 - 2.6 mg/dL 2.3 Phosphorus 2.5 - 4.8 mg/dL 3.7 Protein 6.0 - 8.3 g/dL 6.7 LD <=250 U/L 244 Uric Acid 3.4 - 7.0 mg/dL 2.1 (L) Uric Acid, Rasburicase User 3.4 - 7.0 mg/dL 2.1 (L) CBC Rpt ! WBC 4.00 - 10.80 K/uL 7.05 RBC 4.50 - 5.25 M/uL 3.73 HGB 14.0 - 16.8 g/dL 11.2 (L) HCT 40.0 - 48.4 % 33.3 (L) MCV 82.0 - 99.5 fL 89.3 MCH 27.0 - 34.0 pg 30.0 MCHC 32.0 - 36.0 g/dL 33.6 RDW 11.5 - 15.5 % 12.5 PLT 140 - 400 K/uL 241 MPV 6.6 - 11.1 fL 10.0 CBC WITH WBC DIFFERENTIAL Rpt ! Absolute Neutrophils 1.80 - 7.70 K/uL 4.65 Absolute Lymphocytes 1.00 - 4.80 K/ul 1.52 Absolute Monocytes 0.00 - 1.10 K/uL 0.84 Absolute Eosinophils 0.00 - 0.70 K/uL 0.00 Absolute Basophils 0.00 - 0.20 K/uL 0.00 Albumin 3.8 - 5.0 g/dL 4.0 AST 10 - 50 U/L 21 ALT 10 - 50 U/L 56 (H) Alkaline Phosphatase 35 - 130 U/L 68 Bilirubin, Total <=1.2 mg/dL 0.3 Bilirubin, Direct 0.0 - 0.3 mg/dL <0.2 (L): Data is abnormally low !: Data is abnormal (H): Data is abnormally high Rpt: View report in Results Review for more information IMAGING REVIEWED: no new studies CT HEAD WITHOUT CONTRAST 06/29/2023 HISTORY 32 y/o M Staging for stage IV high grade lymphoma TECHNIQUE Pre and postcontrast CT of the head performed. COMPARISON 12/06/2013 in correlation made with FINDINGS No acute intracranial hemorrhage or abnormal extra-axial collection. There is generalized volume loss with prominence of the ventricles and sulci. No midline shift or mass effect. Scattered areas of patchy hypoattenuation are present within the cerebral white matter which are nonspecific but can beseen with chronic small vessel ischemia. An area of encephalomalacia and gliosis seen within the left occipital lobe no abnormal intracranial enhancement develops following intravenous contrast administration. If there is continued clinical concern for intracranial disease, MRI brain with and without contrast is suggested which is more sensitive. Mucous retention cyst is seen within the inferior left maxillary sinus. IMPRESSION 1. No acute intracranial abnormality. 2. No abnormal intracranial enhancement. If there is continued clinical concern for intracranial disease, MRI brain with and without contrast is suggested which is more sensitive. ASSESSMENT/PLAN: Farhad Franco is a 32 year old male referred to Palliative Medicine with the primary diagnosis of: Longstanding history of cerebral vasculitis, stroke ischemic at age of 7, presenting with new onset back pain and weight loss with large retroperitoneal mass suggestive of lymphoma (Burkitts vs diffuse large B-cell). Secondary Diagnoses are: mild intellectual disability, GERD, migraine headaches, adjustment disorder with depressed mood, nephrolithiasis, tobacco use disorder, hypertension, bronchial asthma, obesity class 2, possible undiagnosed obstructive sleep apnea, ADHD Neoplasm related pain: Farhad's pain is complex: he has cancer pain, but he also likely has emotional and spiritual pain secondary to this cancer diagnosis and being away from his son. We talked to him for some time abouttreating his pain more when he has functional difficulty rather than to dull the emotional pain. His mom is very much on board with this. Stop Belbuca and start Subutex 1 mg SL TID GROUNDSKEEPING MAINTENANCE WORKER morphine 2 mg IV every 60 minutes as needed for breakthrough pain. Stopped basal infusion 06/28. Stop PO MSIR as he feels it is not helping Add Hydromorphone 3 mg Q4H prn mod-severe pain - he did feel hydromorphone was effective previously Opiate-induced constipation: Bowel movements back to being constipated. Changed miralax to daily and senna-S to BID. Thank you for allowing us to participate in the ongoing care of this patient. Please don't hesitate to call or page with any additional concerns. Patient was seen and discussed with Dr. Mack. Priscilla Navarro, Fellow - Palliative Medicine 07/01/2023 Associated attestation - Grover Mack MD - 07/01/2023 12:03 PM EDT I saw and evaluated the patient today. I have reviewed the trainee note and agree. * Jamal Retana MD - 06/30/2023 3:40 PM EDT Images from the original note were not included. PROGRESS NOTE - Hematology [facility] [place]-[address] [address] Name: Farhda Franco Location: [facility] B846/A Date: 06/30/2023 Time: 3:40 PM SUBJECTIVE: Mother at bedside. Abdominal pain is better this AM, describes it more during the night. Most of the time he rates pain as 6-7/10 and sometimes can get to 5/10. Good bowel movement this AM. Able to eat food. No headaches, dizziness, chest pain, shortness of breath. He wanted to be started on Celebrex which is his home medication. Discussed about NSAIDs are contraindicated with the risk of kidney dysfunction and now with new diagnosis of lymphoma. He is on Belbuca on morphine which can take care of his pain. Review of Systems: Negative except as mentioned above Objective Physical Exam Most Recent Vital Signs: BP: 139 mmHg/89 mmHg (06/30/23 1449) Pulse: 91 (06/30/23 1449) Temp: 36.72 C (06/30/23 1449) Temp Summary: Temp Min: 35.9 C (96.7 F) Max: 37.1 C (98.7 F) SpO2: 93 % (06/30/23 1449) O2 flow rate: 3 L/MIN (06/22/23 1230) Supplemental O2 Delivery: Room Air, None (06/30/23 1449) Intake/Output Summary (Last 24 hours) at 06/30/2023 1540 Last data filed at 06/30/2023 1400 Gross per 24 hour Intake 3950.44 ml Output 1550 ml Net 2400.44 ml Weight: 118.8 kg (262 lb) (06/20/232200) Weight: 125.2 kg (276 lb) (06/27/232104) Constitutional: Young male, in no acute distress sitting on bed mother at bedside HEENT: Moist mucous membranes, no oral lesions or thrush. Chest: Normal respiratory effort. Bilateral air entry equal with no crackles or wheezing heard. CVS: S1, S2 + Abdomen: Soft, normal bowel sounds. Neuro: Alert, awake and following commands. Moving extremities. Power PICC Double Lumen Right;Upper Arm (Active) Number of days: 5 STUDIES: Encounter Orders Labs and other studies reviewed with pertinent findings noted below: LABS: I have personally reviewed the following labs CBC/DIFF CHEMISTRY Lab results within last 7 days (see chart for full results) Units 06/30/23 0319 BUN mg/dL 12 Creatinine mg/dL 0.7 Estimated Glomerular Filtration Rate mL/min >90 Sodium mmol/L 139 Potassium mmol/L 3.7 Chloride mmol/L 108* Calcium mg/dL 9.1 Phosphorus mg/dL 3.3 Magnesium mg/dL 2.2 CO2 mmol/L 23 Anion Gap mmol/L 8 Glucose mg/dL 99 Lab results within last 7 days (see chart for full results) Units 06/30/23 0319 WBC K/uL 7.65 HGB g/dL 10.8* PLT K/uL 237 Neutrophils % % 66.7 Monocytes % % 12.9* LFTs Lab results within last 7 days (see chart for full results) Units 06/30/23 0319 Albumin g/dL 3.7* Protein g/dL 6.4 AST U/L 21 ALT U/L 45 Alkaline Phosphatase U/L 65 Bilirubin, Total mg/dL 0.2 Bilirubin, Direct mg/dL <0.2 A. 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 See comment. at 1607 Sections show small core needle biopsies with [...] controls. CD3 stain background small sized T-cells. Melbeta-5 stains B-cells and is diffusely positive in [...] the B-cells. P53 shows weak diffuse staining. 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 mIPI : 1 Differentials include Burkitt lymphoma, transformed diffuse large B-cell lymphoma. Await FISH -FISH may take 3-5 days and earliest we can expect results is on Thursday -CTAP 06/24: Slightly enlarging mass from admission. Overall pathology and clinical picture more suggestive of Aggressive B cell lymphoma with possible DLBCL rather than Burkitt. Follow FISH - BMBx without any lymphoma involvement. US scrotum with no evidence of intratesticular lesion. CT head with no visible evidence of lymphoma.Appreciate ophthalmology consult, no ocular involvement - Started pre phase Cytoxan with steroids- 06/25-currently day 5 - Prophylaxis: Acyclovir 400 mg twice daily, NS 75 mL/hour, Allopurinol 300 mg BID. -Plan for [facility] 06/30/2023. Controlled TLS - Uric acid improved after rasburicase - TLS labs daily and allopurinol, IVF -- if they remain well will make them daily Neoplasm related pain - Palliative on board: Continue Belbuca 750 mcg every 12 hours. - GROUNDSKEEPING MAINTENANCE WORKER morphine: Basal rate removed, prn 2mg q30 minutes - PRN MSIR 7.5mg q4h prn moderate pain and 15mg q4h prn severe pain - Miralax prn -NSAIDS will increase risk of kidney dysfunction and bleeding with TLS related to lymphoma and cytopenias related to chemo. Cerebral vasculitis Migraines Seizure disorder - Continue aspirin, Depakote, Topamax, propranolol. ADHD - Discussed events of 06/29/2023, making him aware that destructive behavior will not be tolerated for the safety of staff. Mother was present during discussion. Patient assures this behavior will stop( was dicussed by Kike Marquez) Hypertension - Continue COMMUNITY AFFAIRS MANAGER hydrochlorothiazide GERD - Continue COMMUNITY AFFAIRS MANAGER omeprazole History of asthma - COMMUNITY AFFAIRS MANAGER Breo Ellipta, albuterol nebs q.6 hours p.r.n. Full Code: Discussed with patient and mom DVT ppx: lovenox. Disposition: Patient was scheduled to see Dr. Chaudhary on 06/29/2023 but was canceled due to hospital admission. Needs to arrange a follow-up with Dr. Chaudhary closer to discharge Pt discussed with Dr. Jesse Retana MD Hematology and Oncology, PGY-5 [facility] This note was completed using the dictation program Fluency Direct. As such, there may be misspellings, word substitutions, or other variations that should not change the essence of the clinical content of this encounter note. If there is need for further clarification, please direct questions to the provider listed above. Associated attestation - Yaz Molina MD - 06/30/2023 4:36 PM EDT I saw and evaluated the patient today. I have reviewed the trainee note and agree. I spent a total of 30 minutes coordinating, documenting, and providing care for this patient excluding time spent in the performance of separately billed services. * Priscilla Navarro DO - 06/30/2023 8:14 AM EDT PROGRESS NOTE - Palliative Medicine [address] [address] Name: Farhad Franco Location: [address] Date: 06/30/2023 Time: 8:14 AM SUBJECTIVE: Patient seen and chart reviewed. Family present: yes, mother Anne-Marie No acute events overnight. Farhad was sleeping at the time of my visit as he had a fitful night, so spoke to mom who was sitting up at the bedside. In the last 18 hours he has received total GROUNDSKEEPING MAINTENANCE WORKER 14 mg (7 doses of morphine 2 mg). He did not ask for any PO MSIR. Pain has been mostly controlled, worst at night. Tolerating belbuca micro-dosing regimen, currently 750 mcg BID. His diarrhea is better. He is moving around and going to bathroom on his own. Last BM 06/27. He is eating okay. Nausea has not been an issue. No new complaints since our visit yesterday. Mom notes that he was upset last evening because he wants to see his 4-yr-old son today but it would require a 5 hour roundtrip car ride. OBJECTIVE: Most Recent Vital Signs: BP: 112 mmHg/72 mmHg (06/30/23626) Pulse: 73 (06/30/23626) Temp: 36.67 C (06/30/23626) Temp Summary: Temp Min: 35.9 C (96.7 F) Max: 37.1 C (98.7 F) SpO2: 97 % (06/30/23626) O2 flow rate: 3 L/MIN (06/22/23 1230) Supplemental O2 Delivery: Room Air, None (06/30/23626) Vital Signs Last 24 Hours: Systolic BP: Most Recent Systolic BP Av mmHg Min: 112 mmHg Max: 150 mmHg Temperature: Most Recent Temperature Av.6 C Min: 35.94 C Max: 37.06 C Pulse: Pulse Av.2 Min: 73 Max: 99 Respirations: Resp Av.4 Min: 11 Max: 20 SpO2: SpO2 Av.1 % Min: 94 % Max: 100 % Constitutional: No acute distress HEENT: Moist mucous membranes. Chest: No increased work of breathing Neuro: Mild intellectual disability, sleeping comfortably but did wake when nurse came in with medications Psych: Normal affect LABS REVIEWED: yes, reviewed Latest Reference Range & Units 06/30/23 03:19 Sodium 135 - 146 mmol/L 139 Potassium 3.5 - 5.1 mmol/L 3.7 Chloride 98 - 107 mmol/L 108 (H) CO2 22 - 32 mmol/L 23 BUN 6 - 20 mg/dL 12 Creatinine 0.6 - 1.2 mg/dL 0.7 Estimated Glomerular Filtration Rate >=60 mL/min >90 Anion Gap 7 - 15 mmol/L 8 Glucose 70 - 120 mg/dL 99 Calcium 8.4 - 10.2 mg/dL 9.1 Magnesium 1.5 - 2.6 mg/dL 2.2 Phosphorus 2.5 - 4.8 mg/dL 3.3 Protein 6.0 - 8.3 g/dL 6.4 LD <=250 U/L 228 Uric Acid 3.4 - 7.0 mg/dL 1.9 (L) CBC Rpt ! WBC 4.00 - 10.80 K/uL 7.65 RBC 4.50 - 5.25 M/uL 3.74 HGB 14.0 - 16.8 g/dL 10.8 (L) HCT 40.0 - 48.4 % 33.6 (L) MCV 82.0 - 99.5 fL 89.8 MCH 27.0 - 34.0 pg 28.9 MCHC 32.0 - 36.0 g/dL 32.1 RDW 11.5 - 15.5 % 12.7 PLT 140 - 400 K/uL 237 MPV 6.6 - 11.1 fL 10.1 CBC WITH WBC DIFFERENTIAL Rpt ! Absolute Neutrophils 1.80 - 7.70 K/uL 5.09 Absolute Lymphocytes 1.00 - 4.80 K/ul 1.51 Absolute Monocytes 0.00 - 1.10 K/uL 0.99 Absolute Eosinophils 0.00 - 0.70 K/uL 0.01 Absolute Basophils 0.00 - 0.20 K/uL 0.01 Albumin 3.8 - 5.0 g/dL 3.7 (L) AST 10 - 50 U/L 21 ALT 10 - 50 U/L 45 Alkaline Phosphatase 35 - 130 U/L 65 Bilirubin, Total <=1.2 mg/dL 0.2 Bilirubin, Direct 0.0 - 0.3 mg/dL <0.2 (H): Data is abnormally high (L): Data is abnormally low !: Data is abnormal Rpt: View report in Results Review for more information IMAGING REVIEWED: yes, reviewed CT HEAD WITHOUT CONTRAST 06/29/2023 HISTORY 32 y/o M Staging for stage IV high grade lymphoma TECHNIQUE Pre and postcontrast CT of the head performed. COMPARISON 12/06/2013 in correlation made with FINDINGS No acute intracranial hemorrhage or abnormal extra-axial collection. There is generalized volume loss with prominence of the ventricles and sulci. No midline shift or mass effect. Scattered areas of patchy hypoattenuation are present within the cerebral white matter which are nonspecific but can beseen with chronic small vessel ischemia. An area of encephalomalacia and gliosis seen within the left occipital lobe no abnormal intracranial enhancement develops following intravenous contrast administration. If there is continued clinical concern for intracranial disease, MRI brain with and without contrast is suggested which is more sensitive. Mucous retention cyst is seen within the inferior left maxillary sinus. IMPRESSION 1. No acute intracranial abnormality. 2. No abnormal intracranial enhancement. If there is continued clinical concern for intracranial disease, MRI brain with and without contrast is suggested which is more sensitive. ASSESSMENT/PLAN: Farhad Franco is a 32 year old male referred to Palliative Medicine with the primary diagnosis of: Longstanding history of cerebral vasculitis, stroke ischemic at age of 7, presenting with new onset back pain and weight loss with large retroperitoneal mass suggestive of lymphoma (Burkitts vs diffuse large B-cell). Secondary Diagnoses are: mild intellectual disability, GERD, migraine headaches, adjustment disorder with depressed mood, nephrolithiasis, tobacco use disorder, hypertension, bronchial asthma, obesity class 2, possible undiagnosed obstructive sleep apnea, ADHD Neoplasm related pain: Belbuca 750 mcg every 12 hours (started 5/12 PM) - continue this dose Keep GROUNDSKEEPING MAINTENANCE WORKER morphine regimen the same, maintaining GROUNDSKEEPING MAINTENANCE WORKER bolus dose of 2 mg IV every 30 minutes as needed for breakthrough pain. Stopped basal infusion 06/28. Encouraged to use MSIR 7.5 mg Q4H prn mod pain and 15 mg Q4H prn severe pain - mom and nursing to remind him to ask for this before he pushes the pump button as we are trying to transition off GROUNDSKEEPING MAINTENANCE WORKER Opiate-induced constipation: Bowel movements normalized without diarrhea. Can continue as needed Miralax Thank you for allowing us to participate in the ongoing care of this patient. Please don't hesitate to call or page with any additional concerns. Patient was discussed with Dr. Angeles. Priscilla Navarro DO Fellow - Palliative Medicine 06/30/2023 Associated attestation - Les Angeles MD - 06/30/2023 2:20 PM EDT I saw and evaluated the patient today. I have reviewed the trainee note and agree. * Kike Marquez PA-C - 06/29/2023 5:29 PM EDT Images from the original note were not included. PROGRESS NOTE - Hematology [address] [address] Name: Farhad Franco Location: [facility] B846/A Date: 06/29/2023 Time: 5:29 PM SUBJECTIVE: No significant overnight events. Continues to have left upper quadrant pain that radiates to his back crossing his spine. Pain seems to be controlled with current analgesic regimen. Tolerating chemotherapy fairly well. He is having some nausea. Denies any vomiting. Still eating food. Ambulating around room without any difficulty. No sob, chest pain, n/v/d. No bleeding, ayala, dizziness, confusion. Review of Systems: Negative except as mentioned above Objective Physical Exam Most Recent Vital Signs: BP: 119 mmHg/74 mmHg (06/29/231621) Pulse: 82 (06/29/23 162) Temp: 37.06 C (06/29/23 162) Temp Summary: Temp Min: 36 C (96.8 F) Max: 37.1 C (98.7 F) SpO2: 96 % (06/29/231621) O2 flow rate: 3 L/MIN (06/22/23 1230) Supplemental O2 Delivery: Room Air, None (06/29/231621) Intake/Output Summary (Last 24 hours) at 06/29/2023 1729 Last data filed at 06/29/2023 1400 Gross per 24 hour Intake 3144.97 ml Output 1750 ml Net 1394.97 ml Weight: 118.8 kg (262 lb) (06/20/232200) Weight: 125.2 kg (276 lb) (05/11/24 2105) Constitutional: Young male, in no acute distress sitting at bedside after showering, mother at bedside HEENT: Moist mucous membranes, no oral lesions or thrush. Chest: Normal respiratory effort. Bilateral air entry equal with no crackles or wheezing heard. CVS: S1, S2 + Abdomen: Soft, normal bowel sounds. Neuro: Alert, awake and following commands. Moving extremities. Strength: 5/5 on proximal and distal lower extremities bilaterally. Power PICC Double Lumen Right;Upper Arm (Active) Number of days: 4 STUDIES: Encounter Orders Labs and other studies reviewed with pertinent findings noted below: LABS: I have personally reviewed the following labs CBC/DIFF CHEMISTRY Lab results within last 7 days (see chart for full results) Units 06/29/23 0339 BUN mg/dL 10 Creatinine mg/dL 0.6 Estimated Glomerular Filtration Rate mL/min >90 Sodium mmol/L 143 Potassium mmol/L 3.1* Chloride mmol/L 114* Calcium mg/dL 8.0* Phosphorus mg/dL 2.9 Magnesium mg/dL 1.6 CO2 mmol/L 21* Anion Gap mmol/L 8 Glucose mg/dL 102 Lab results within last 7 days (see chart for full results) Units 06/29/23 0339 WBC K/uL 7.44 HGB g/dL 9.5* PLT K/uL 182 Neutrophils % % 64.3 Monocytes % % 14.0* LFTs Lab results within last 7 days (see chart for full results) Units 06/29/23 0339 Albumin g/dL 3.1* Protein g/dL 5.3* AST U/L 16 ALT U/L 31 Alkaline Phosphatase U/L 57 Bilirubin, Total mg/dL 0.2 Bilirubin, Direct mg/dL <0.2 A. 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 See comment. at 1607 Sections show small core needle biopsies with [...] controls. CD3 stain background small sized T-cells. Melbeta-5 stains B-cells and is diffusely positive in [...] the B-cells. P53 shows weak diffuse staining. 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 Needs FISH before initiating definitive chemotherapy. -FISH may take 3-5 days and earliest we can expect results is on Thursday -CTAP 06/24: Slightly enlarging mass from admission. - BMBx without any lymphoma invovlement - Appreciate ophthalmology consult, no ocular involvement - CT head ordered to rule out any SUPERVISOR PLATE FORMING involvement, testicular US ordered to rule out any involvement - Started pre phase Cytoxan with steroids- 06/25-currently day 4 - Prophylaxis: Acyclovir 400 mg twice daily, NS 125 mL/hour, Allopurinol 300 mg BID. Controlled TLS - Uric acid improved after rasburicase - TLS labs BID and allopurinol, IVF -- if they remain well will make them daily Neoplasm related pain - Palliative on board: Continue Belbuca 750 mcg every 12 hours. - GROUNDSKEEPING MAINTENANCE WORKER morphine: Basal rate removed, prn 2mg q30 minutes - PRN MSIR 7.5mg q4h prn moderate pain and 15mg q4h prn severe pain - Miralax prn Cerebral vasculitis Migraines Seizure disorder - Continue aspirin, Depakote, Topamax, propranolol. ADHD - Discussed events of last night with patient making him aware that destructive behavior will not be tolerated for the safety of staff. Mother was present during discussion. Patient assures me this behavior will stop. Hypertension - Continue COMMUNITY AFFAIRS MANAGER hydrochlorothiazide GERD - Continue COMMUNITY AFFAIRS MANAGER omeprazole History of asthma - COMMUNITY AFFAIRS MANAGER Breo Ellipta, albuterol nebs q.6 hours p.r.n. Full Code: Discussed with patient and mom DVT ppx: lovenox. Pt discussed with Dr. Molina I spent a total of 50 minutes coordinating, documenting, and providing care for this patient excluding time spent in the performance of separately billed services or time spent by another provider/QHP. Associated attestation - Yaz Molina MD - 06/30/2023 7:54 AM EDT I have reviewed the advanced practitioner's documentation on the date of service referenced in note, and I agree with, and take responsibility for the plan of care. I spent a total of 30 minutes coordinating, documenting, and providing care for this patient excluding time spent in the performance of separately billed services or time spent by another provider/QHP. * Priscilla Navarro DO - 06/29/2023 10:00 AM EDT PROGRESS NOTE - Palliative Medicine [facility] [place] [address] Name: Farhad Franco Location: [facility] B846/A Date: 06/29/2023 Time: 10:00 AM SUBJECTIVE: Patient seen and chart reviewed. Family present: yes, mother Anne-Marie No acute events. In the last 24 hours he has received total GROUNDSKEEPING MAINTENANCE WORKER 28.4 mg (26 mg bolus and 2.4 mg basal). Pain has been mostly controlled, and he notes it is worst at night. Tolerating belbuca micro-dosing regimen, currently 750 mcg BID. His diarrhea is better. He is moving around and going to bathroom on his own. He is eating okay. Nausea not an issue today. He has no acute complaints. OBJECTIVE: Most Recent Vital Signs: BP: 132 mmHg/81 mmHg (06/29/23844) Pulse: 83 (06/29/23844) Temp: 36.67 C (06/29/23844) Temp Summary: Temp Min: 36 C (96.8 F) Max: 36.7 C (98 F) SpO2: 97 % (06/29/23844) O2 flow rate: 3 L/MIN (06/22/23 1230) Supplemental O2 Delivery: Room Air, None (05/13/24 0845) Vital Signs Last 24 Hours: Systolic BP: Most Recent Systolic BP Av.9 mmHg Min: 105 mmHg Max: 148 mmHg Temperature: Most Recent Temperature Av.4 C Min: 36 C Max: 36.67 C Pulse: Pulse Av.5 Min: 65 Max: 105 Respirations: Resp Av Min: 16 Max: 20 SpO2: SpO2 Av.1 % Min: 96 % Max: 100 % Constitutional: No acute distress HEENT: Moist mucous membranes. Anicteric sclera Chest: Bilateral air entry equal. No increased work of breathing Neuro: Alert, oriented x 3, moving all extremities. Psych: normal affect LABS REVIEWED: yes, reviewed Latest Reference Range & Units 06/29/23 03:39 Sodium 135 - 146 mmol/L 143 Potassium 3.5 - 5.1 mmol/L 3.1 (L) Chloride 98 - 107 mmol/L 114 (H) CO2 22 - 32 mmol/L 21 (L) BUN 6 - 20 mg/dL 10 Creatinine 0.6 - 1.2 mg/dL 0.6 Estimated Glomerular Filtration Rate >=60 mL/min >90 Anion Gap 7 - 15 mmol/L 8 Glucose 70 - 120 mg/dL 102 Calcium 8.4 - 10.2 mg/dL 8.0 (L) Magnesium 1.5 - 2.6 mg/dL 1.6 Phosphorus 2.5 - 4.8 mg/dL 2.9 Protein 6.0 - 8.3 g/dL 5.3 (L) LD <=250 U/L 225 Uric Acid, Rasburicase User 3.4 - 7.0 mg/dL 1.6 (L) CBC Rpt ! WBC 4.00 - 10.80 K/uL 7.44 RBC 4.50 - 5.25 M/uL 3.30 HGB 14.0 - 16.8 g/dL 9.5 (L) HCT 40.0 - 48.4 % 29.4 (L) MCV 82.0 - 99.5 fL 89.1 MCH 27.0 - 34.0 pg 28.8 MCHC 32.0 - 36.0 g/dL 32.3 RDW 11.5 - 15.5 % 12.6 PLT 140 - 400 K/uL 182 MPV 6.6 - 11.1 fL 10.1 CBC WITH WBC DIFFERENTIAL Rpt ! Absolute Neutrophils 1.80 - 7.70 K/uL 4.78 Absolute Lymphocytes 1.00 - 4.80 K/ul 1.58 Absolute Monocytes 0.00 - 1.10 K/uL 1.04 Absolute Eosinophils 0.00 - 0.70 K/uL 0.01 Absolute Basophils 0.00 - 0.20 K/uL 0.01 Albumin 3.8 - 5.0 g/dL 3.1 (L) AST 10 - 50 U/L 16 ALT 10 - 50 U/L 31 Alkaline Phosphatase 35 - 130 U/L 57 Bilirubin, Total <=1.2 mg/dL 0.2 Bilirubin, Direct 0.0 - 0.3 mg/dL <0.2 (L): Data is abnormally low (H): Data is abnormally high !: Data is abnormal Rpt: View report in Results Review for more information IMAGING REVIEWED: no new studies ASSESSMENT/PLAN: Farhad Franco is a 32 year old male referred to Palliative Medicine with the primary diagnosis of: Longstanding history of cerebral vasculitis, stroke ischemic at age of 7, presenting with new onset back pain and weight loss with large retroperitoneal mass suggestive of lymphoma (Burkitts vs diffuse large B-cell). Secondary Diagnoses are: GERD, migraine headaches, adjustment disorder with depressed mood, nephrolithiasis, tobacco use disorder, hypertension, bronchial asthma, obesity class 2, possible undiagnosed obstructive sleep apnea, ADHD Neoplasm related pain: Microdosing regimen: Belbuca 750 mcg every 12 hours (started 5/12 PM) - continue this dose Keep GROUNDSKEEPING MAINTENANCE WORKER morphine regimen the same, maintaining GROUNDSKEEPING MAINTENANCE WORKER bolus dose of 2 mg IV every 30 minutes as needed for breakthrough but stop basal infusion Start MSIR 7.5 mg Q4H prn mod pain and 15 mg Q4H prn severe pain Opiate-induced constipation: Bowel movements firming up with less liquid stoold. Can continue as needed Miralax Thank you for allowing us to participate in the ongoing care of this patient. Please don't hesitate to call or page with any additional concerns. Patient was seen, discussed, and examined with Dr. Mcak. Priscilla Navarro, Fellow - Palliative Medicine 06/29/2023 Associated attestation - Grover Mack MD - 06/29/2023 3:43 PM EDT I saw and evaluated the patient today. I have reviewed the trainee note and agree. * Arnulfo Lowe PA-C - 06/28/2023 1:49 PM EDT Images from the original note were not included. PROGRESS NOTE - Hematology [address] [address] Name: Farhad Franco Location: [facility] B846/A Date: 06/28/2023 Time: 1:49 PM SUBJECTIVE: Overnight got frustrated and threw call shafer into wall. Was tired of pump beeping. This am not much pain in abd. Denies mouth sores. Eating/drinking well. No sob, chest pain, n/v/d. No bleeding, ayala, dizziness, confusion. Review of Systems: Negative except as mentioned above Objective Physical Exam Most Recent Vital Signs: BP: 129 mmHg/82 mmHg (06/28/23 1247) Pulse: 105 (06/28/23 1247) Temp: 36.67 C (06/28/23 1247) Temp Summary: Temp Min: 36.4 C (97.5 F) Max: 37 C (98.6 F) SpO2: 96 % (06/28/23 1247) O2 flow rate: 3 L/MIN (06/22/23 1230) Supplemental O2 Delivery: Room Air, None (06/28/23 1247) Intake/Output Summary (Last 24 hours) at 06/28/2023 1349 Last data filed at 06/28/2023 1239 Gross per 24 hour Intake 3380.51 ml Output 900 ml Net 2480.51 ml Weight: 118.8 kg (262 lb) (06/20/23 220) Weight: 125.2 kg (276 lb) (06/27/232104) Constitutional: In no acute distress sitting at bedside eating breakfast. HEENT: Moist mucous membranes, no oral lesions or thrush. Chest: Normal respiratory effort. Bilateral air entry equal with no crackles or wheezing heard. CVS: S1, S2 + Abdomen: Soft, normal bowel sounds. Neuro: Alert, awake and following commands. Moving extremities. Strength: 5/5 on proximal and distal lower extremities bilaterally. Power PICC Double Lumen Right;Upper Arm (Active) Number of days: 3 STUDIES: Encounter Orders Labs and other studies reviewed with pertinent findings noted below: LABS: I have personally reviewed the following labs CBC/DIFF CHEMISTRY Lab results within last 7 days (see chart for full results) Units 06/28/23 0905 BUN mg/dL 11 Creatinine mg/dL 0.7 Estimated Glomerular Filtration Rate mL/min >90 Sodium mmol/L 140 Potassium mmol/L 4.2 Chloride mmol/L 107 Calcium mg/dL 9.8 Phosphorus mg/dL 3.2 Magnesium mg/dL 1.9 CO2 mmol/L 22 Anion Gap mmol/L 11 Glucose mg/dL 119 Lab results within last 7 days (see chart for full results) Units 06/28/23 0905 WBC K/uL 9.99 HGB g/dL 11.4* PLT K/uL 237 Neutrophils % % 67.9 Monocytes % % 14.1* LFTs Lab results within last 7 days (see chart for full results) Units 06/28/23 0905 Albumin g/dL 4.1 Protein g/dL 6.9 AST U/L 27 ALT U/L 44 Alkaline Phosphatase U/L 73 Bilirubin, Total mg/dL 0.2 Bilirubin, Direct mg/dL <0.2 A. 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 See comment. at 1607 Sections show small core needle biopsies with [...] controls. CD3 stain background small sized T-cells. Melbeta-5 stains B-cells and is diffusely positive in [...] the B-cells. P53 shows weak diffuse staining. 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 Needs FISH before initiating definitive chemotherapy. -FISH may take 3-5 days and earliest we can expect results is on Thursday -CTAP 06/24: Slightly enlarging mass from admission. -started pre phase Cytoxan with steroids- 06/25-currently day 3 -prophylaxis: Acyclovir 400 mg twice daily, NS 125 mL/hour, Allopurinol 300 mg BID. ?LP Controlled TLS Uric acid improved after rasburicase TLS labs BID and allopurinol, IVF Neoplasm related pain Palliative on board: discussed with them today, increase Belbuca to 750 mcg every 12 hours. GROUNDSKEEPING MAINTENANCE WORKER morphine: basal rate of 0.1 mg/hr.Demand dose of 2 mg Q 30 minutes. Miralax prn Cerebral vasculitis Migraines Seizure disorder Continue aspirin, Depakote, Topamax, propranolol. ADHD -discussed events of last night with patient making him aware that destructive behavior will not betolerated for the safety of staff. Mother was present during discussion. Patient assures me this behavior will stop. Hypertension Continue COMMUNITY AFFAIRS MANAGER hydrochlorothiazide GERD Continue COMMUNITY AFFAIRS MANAGER omeprazole History of asthma COMMUNITY AFFAIRS MANAGER Breo Ellipta, albuterol nebs q.6 hours p.r.n. Full Code: Discussed with patient and mom DVT ppx: lovenox. Pt discussed with Dr. Pyle I spent a total of 50 minutes coordinating, documenting, and providing care for this patient excluding time spent in the performance of separately billed services or time spent by another provider/QHP. Associated attestation - Drake Pyle MD - 06/28/2023 2:25 PM EDT I saw and evaluated the patient today. I have reviewed the trainee note and agree. Assessment/Plan Summary: (Please refer to full note below for details) Principle Problem: Retroperitoneal mass, FNA cytology suggestive of CD10 positive B cell lymphoma, cytogenetics and FISH awaited for definite diagnosis ( Burkitt's vs DLBCL vs follicular) before definitive treatment is decided. Ongoing pre-phase Cyclophosphamide-Prednisone while waiting for FISH results and definitive chemotherapy, with goal to prevent further progression and complications. Will continue supportive care and monitor for TLS. BMBx result awaited Heme:Transfusion support as needed for cytopenias ID: No active issues today. 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 Encourage light physical activity and ambulation as tolerated. Neuro/Psych: H/o cerebral vasculaitis, seizure, stroke- continue ASA, depakote, topamax, propranolol Resp: Asthma- cont Breo ellipta, albuterol prn CVS: HTN- cont HCTZ GI/Liver/Nutrition: GERD-continue on omeprazole. Nausea/vomiting from chemotherapy- controlled adequately on current regimen. Continue nutritional support. FEN/Renal: Risk of TLS, monitoring, hydration , allopurinol. Electrolyte repletion as needed. Medication dosing reviewed and adjusted appropriate for renal functions Disposition: Stay inpatient for new lymphoma and close monitoring and supportive care through engraftment. Risk of infection due to severe neutropenia and immunocompromised state. Risk of adverse effects due to chemotherapy and /or therapeutic immunosuppression, drug interactions, needs close monitoring. Inactive/Resolved issues- None Pending/To follow :GER, BMBx, Drake Pyle MD * Juana Kenny MD - 06/28/2023 8:51 AM EDT PROGRESS NOTE - Palliative Medicine [facility] [place]-[address] [address] Name: aFrhad Franco Location: [facility] B846/A Date: 06/28/2023 Time: 8:52 AM SUBJECTIVE: Patient seen and chart reviewed. Family present: yes mother In last 24 hours he has received total GROUNDSKEEPING MAINTENANCE WORKER 36.4 mg (34 mg bolus and 2.4 mg basal). He states he feels pretty same as yesterday, pain is controlled on current regimen. He had an episode of worsening abdominal pain last night though when he was in bed. His diarrhea is better. He is moving around, going to bathroom. He is eating okay. He has no any other complaints to offer OBJECTIVE: Most Recent Vital Signs: BP: 139 mmHg/82 mmHg (06/28/23820) Pulse: 86 (06/28/23820) Temp: 36.39 C (06/28/23820) Temp Summary: Temp Min: 36.4 C (97.5 F) Max: 37 C (98.6 F) SpO2: 100 % (06/28/23820) O2 flow rate: 3 L/MIN (06/22/23 1230) Supplemental O2 Delivery: Room Air, None (06/28/23820) Vital Signs Last 24 Hours: Systolic BP: Most Recent Systolic BP Av.1 mmHg Min: 115 mmHg Max: 140 mmHg Temperature: Most Recent Temperature Av.7 C Min: 36.39 C Max: 37 C Pulse: Pulse Av Min: 77 Max: 100 Respirations: Resp Av.2 Min: 18 Max: 20 SpO2: SpO2 Av.3 % Min: 95 % Max: 100 % Constitutional: Not in acute distress HEENT: Moist mucous membranes. Anicteric sclera Chest: Bilateral air entry equal. No increased work of breathing Neuro: Alert, oriented x3, moving all extremities. Psych: normal affect LABS REVIEWED: yes, reviewed no new labs this am IMAGING REVIEWED: no new studies ASSESSMENT/PLAN: Farhad Franco is a/an 32 year old male referred for consultation to Palliative Medicine with theprimary diagnosis of: Longstanding history of cerebral vasculitis, stroke ischemic at age of 7, presenting with new onset back pain and weight loss with large retroperitoneal mass suggestive of lymphoma. Secondary Diagnoses are: GERD, migraine headaches, adjustment disorder with depressed mood, nephrolithiasis, tobacco use disorder, hypertension, bronchial asthma, obesity class 2, possible undiagnosed obstructive sleep apnea Neoplasm related pain: We will continue with the micro dosing regimen, recommend increasing the dose of Belbuca to 750 mcgevery 12 hours. (order placed) first dose tonight Keep GROUNDSKEEPING MAINTENANCE WORKER morphine regimen the same, maintaining GROUNDSKEEPING MAINTENANCE WORKER bolus dose of 2 mg IV every 30 minutes as needed. (Required 36.4 mg morphine in 24 hrs) Opiate induced constipation: He had diarrhea yesterday which is better now. Can continue as needed Miralax Patient seen, reviewed and discussed with Dr. Ibrahim Thank you for allowing us to participate in the ongoing care of this patient. Please don't hesitate to call or page with any additional concerns. Associated attestation - Gilda Ibrahim MD - 06/28/2023 2:03 PM EDT I saw and evaluated the patient today. I have reviewed the trainee note and agree. In 1-2 days it is likely that buprenorphine buccal film will be change it to buprenorphine sublingually tablet. Reassurance provided to the patient and his mother regarding finding out insurance coverage of Subutex, buprenorphine sublingually tablets if that is the plan before discharge and assist with prior Auth if necessary. Continue GROUNDSKEEPING MAINTENANCE WORKER morphine as it is for now. Once optimal dose of buprenorphine is determine then plan is to discontinue GROUNDSKEEPING MAINTENANCE WORKER morphine and switch it to oral opioid regimen for breakthrough pain. * Juana Kenny MD - 06/27/2023 9:26 AM EDT PROGRESS NOTE - Palliative Medicine [facility] [place]-[address] [address] Name: Farhad Franco Location: [facility] B846/A Date: 06/27/2023 Time: 9:26 AM SUBJECTIVE: Patient seen and chart reviewed. Family present: yes, reviewed Mother present at bedside. He states he is still in pain, mainly in back. HE is using his manual machinist dose pretty much every 30 mins. In last 24 hrs he has received 42 mg morphine GROUNDSKEEPING MAINTENANCE WORKER dose and 2.4 mg basal dose (total 44.4 mg). He doesn't have constipation anymore and complains of diarrhea. He is moving around, going to bathroom. OBJECTIVE: Most Recent Vital Signs: BP: 110 mmHg/64 mmHg (06/27/23656) Pulse: 89 (06/27/23656) Temp: 36.39 C (06/27/23656) Temp Summary: Temp Min: 36.4 C (97.5 F) Max: 37.3 C (99.2 F) SpO2: 98 % (06/27/23656) O2 flow rate: 3 L/MIN (06/22/23 1230) Supplemental O2 Delivery: Room Air, None (06/27/23 0657) Vital Signs Last 24 Hours: Systolic BP: Most Recent Systolic BP Av mmHg Min: 110 mmHg Max: 132 mmHg Temperature: Most Recent Temperature Av.8 C Min: 36.39 C Max: 37.33 C Pulse: Pulse Av.6 Min: 83 Max: 100 Respirations: Resp Av.8 Min: 16 Max: 18 SpO2: SpO2 Av.4 % Min: 94 % Max: 98 % Constitutional: Not in acute distress HEENT: Moist mucous membranes. Anicteric sclera Chest: Bilateral air entry equal. No increased work of breathing Neuro: Alert, oriented x3, moving all extremities. Psych: normal affect LABS REVIEWED: yes, reviewed Latest Reference Range & Units 06/27/23 08:12 Sodium 135 - 146 mmol/L 138 Potassium 3.5 - 5.1 mmol/L 4.0 Chloride 98 - 107 mmol/L 106 CO2 22 - 32 mmol/L 22 BUN 6 - 20 mg/dL 12 Creatinine 0.6 - 1.2 mg/dL 0.7 Estimated Glomerular Filtration Rate >=60 mL/min >90 Anion Gap 7 - 15 mmol/L 10 Glucose 70 - 120 mg/dL 114 Calcium 8.4 - 10.2 mg/dL 9.5 Magnesium 1.5 - 2.6 mg/dL 1.8 Phosphorus 2.5 - 4.8 mg/dL 3.0 LD <=250 U/L 282 (H) Uric Acid 3.4 - 7.0 mg/dL 1.2 (L) (H): Data is abnormally high (L): Data is abnormally low Latest Reference Range & Units 06/27/23 08:12 CBC Rpt ! WBC 4.00 - 10.80 K/uL 9.21 RBC 4.50 - 5.25 M/uL 3.92 HGB 14.0 - 16.8 g/dL 11.4 (L) HCT 40.0 - 48.4 % 34.9 (L) MCV 82.0 - 99.5 fL 89.0 MCH 27.0 - 34.0 pg 29.1 MCHC 32.0 - 36.0 g/dL 32.7 RDW 11.5 - 15.5 % 12.5 PLT 140 - 400 K/uL 227 MPV 6.6 - 11.1 fL 10.0 CBC WITH WBC DIFFERENTIAL Rpt ! Absolute Neutrophils 1.80 - 7.70 K/uL 6.14 Absolute Lymphocytes 1.00 - 4.80 K/ul 1.70 Absolute Monocytes 0.00 - 1.10 K/uL 1.30 (H) Absolute Eosinophils 0.00 - 0.70 K/uL 0.01 Absolute Basophils 0.00 - 0.20 K/uL 0.02 !: Data is abnormal (L): Data is abnormally low (H): Data is abnormally high Rpt: View report in Results Review for more information IMAGING REVIEWED: No new images ASSESSMENT/PLAN: Farhad Franco is a/an 32 year old male referred for consultation to Palliative Medicine with theprimary diagnosis of: Longstanding history of cerebral vasculitis, stroke ischemic at age of 7, presenting with new onset back pain and weight loss with large retroperitoneal mass suggestive of lymphoma. Secondary Diagnoses are: GERD, migraine headaches, adjustment disorder with depressed mood, nephrolithiasis, tobacco use disorder, hypertension, bronchial asthma, obesity class 2, possible undiagnosed obstructive sleep apnea Neoplasm related pain: We will continue with the micro dosing regimen, recommend increasing the dose of Belbuca to 600 mcgevery 12 hours. (order placed) Keep GROUNDSKEEPING MAINTENANCE WORKER morphine regimen the same, maintaining GROUNDSKEEPING MAINTENANCE WORKER bolus dose of 2 mg IV every 30 minutes as needed. (Required 44.4 mg morphine in 24 hrs) Opiate induced constipation: Resolved. He complains of diarrhea today. Will monitor. Hold bowel regimen Patient seen, reviewed and discussed with Dr. Ibrahim Thank you for allowing us to participate in the ongoing care of this patient. Please don't hesitate to call or page with any additional concerns. Associated attestation - Gilda Ibrahim MD - 06/27/2023 2:44 PM EDT I saw and evaluated the patient today. I have reviewed the trainee note and agree. Continue dose titration of Belbuca to achieve effective analgesia and continue current dose of GROUNDSKEEPING MAINTENANCE WORKER morphine. This plan reviewed with the patient and patient's mom at the bedside. * Pepe Salgado PA-C - 06/27/2023 8:05 AM EDT Images from the original note were not included. PROGRESS NOTE - Hematology [facility] [place]-[address] [place] [address] Name: Farhad Franco Location: [facility] B846/A Date: 06/27/2023 Time: 8:05 AM SUBJECTIVE: Doing ok this am and slept ok but still w a lot of pain and using GROUNDSKEEPING MAINTENANCE WORKER 42 mg in last 24 hrs. Denies recent f/c/s/n/v/d/cp/sob. Review of Systems: Negative except as mentioned above Objective Physical Exam Most Recent Vital Signs: BP: 110 mmHg/64 mmHg (06/27/23656) Pulse: 89 (06/27/23656) Temp: 36.39 C (06/27/23656) Temp Summary: Temp Min: 36.4 C (97.5 F) Max: 37.3 C (99.2 F) SpO2: 98 % (06/27/23656) O2 flow rate: 3 L/MIN (06/22/23 1230) Supplemental O2 Delivery: Room Air, None (06/27/23656) Intake/Output Summary (Last 24 hours) at 06/27/2023 0805 Last data filed at 06/27/2023 0718 Gross per 24 hour Intake 1380.38 ml Output 1525 ml Net -144.62 ml Weight: 118.8 kg (262 lb) (06/20/23 2201) Weight: 120.2 kg (265 lb) (06/26/23 0337) Constitutional: In no acute distress with flat affect sitting in chair HEENT: Moist mucous membranes Chest: Normal respiratory effort. Bilateral air entry equal with no crackles or wheezing heard. CVS: S1, S2 + Abdomen: Soft, slight tenderness on lower left and right quadrants.Bowel sounds present Neuro: Alert, awake and following commands. Moving extremities. Strength: 5/5 on proximal and distal lower extremities bilaterally. No changes in the sensation on bilateral lower extremities. Peripheral Line Left;Lower (Active) Number of days: 5 Power PICC Double Lumen Right;Upper Arm (Active) Number of days: 2 STUDIES: Encounter Orders Labs and other studies reviewed with pertinent findings noted below: LABS: I have personally reviewed the following labs CBC/DIFF CHEMISTRY Lab results within last 7 days (see chart for full results) Units 06/26/23 2045 06/26/23 0834 BUN mg/dL 10 8 Creatinine mg/dL 0.8 0.7 Estimated Glomerular Filtration Rate mL/min >90 >90 Sodium mmol/L 133* 137 Potassium mmol/L 3.7 3.9 Chloride mmol/L 101 103 Calcium mg/dL 9.5 9.4 Phosphorus mg/dL 1.7* 3.4 Magnesium mg/dL -- 1.9 CO2 mmol/L 22 25 Anion Gap mmol/L 10 9 Glucose mg/dL 171* 155* Lab results within last 7 days (see chart for full results) Units 06/26/23 0834 WBC K/uL 7.10 HGB g/dL 11.6* PLT K/uL 224 Neutrophils % % 58.7 Monocytes % % 13.0* LFTs Lab results within last 7 days (see chart for full results) Units 06/26/23 0834 Albumin g/dL 3.9 Protein g/dL 7.0 AST U/L 35 ALT U/L 42 Alkaline Phosphatase U/L 78 Bilirubin, Total mg/dL 0.3 Bilirubin, Direct mg/dL <0.2 A. 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 See comment. at 1607 Sections show small core needle biopsies with [...] controls. CD3 stain background small sized T-cells. Melbeta-5 stains B-cells and is diffusely positive in [...] the B-cells. P53 shows weak diffuse staining. 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 Needs FISH before initiating definitive chemotherapy. -No TLS: elevation of uric acid improved with rasburicase. Does not satisfy [place]- Webb criteria. -Symptoms: Pain requiring GROUNDSKEEPING MAINTENANCE WORKER and Belbuca. FISH may take 3-5 days and earliest we can expect results is on Thursday -CTAP: Slightly enlarging mass from admission. -start pre phase Cytoxan with steroids- 06/25 -Monitor TLS labs BID -prophylaxis: Acyclovir 400 mg twice daily, NS 125 mL/hour, Allopurinol 300 mg BID. Controlled TLS Controlled after rasburicase, TLS labs and allopurinol IVF Neoplasm related pain Palliative on board: Belbuca to 300 mcg every 12 hours. GROUNDSKEEPING MAINTENANCE WORKER morphine: basal rate of 0.1 mg/hr.Demand dose of 2 mg Q 30 minutes. Senokot 2 tablets by mouth twice daily and as needed. Cerebral vasculitis Migraines Seizure disorder Continue aspirin, Depakote, Topamax, propranolol. Hypertension Continue COMMUNITY AFFAIRS MANAGER hydrochlorothiazide GERD Continue COMMUNITY AFFAIRS MANAGER omeprazole History of asthma COMMUNITY AFFAIRS MANAGER Breo Ellipta, albuterol nebs q.6 hours p.r.n. Full Code: Discussed with patient and mom DVT ppx: Lovenox. Held in the anticipation of LP. Will restart as there is no plan for LP until FISH results are back Pt discussed with Dr. Pyle I spent a total of 50 minutes coordinating, documenting, and providing care for this patient excluding time spent in the performance of separately billed services or time spent by another provider/QHP. Associated attestation - Drake Pyle MD - 06/27/2023 4:07 PM EDT I saw and evaluated the patient today. I have reviewed the trainee note and agree. Assessment/Plan Summary: (Please refer to full note below for details) Principle Problem: Retroperitoneal mass, FNA cytology suggestive of CD10 positive B cell lymphoma, cytogenetics and FISH awaited for definite diagnosis ( Burkitt's vs DLBCL vs follicular) before definitive treatment is decided. Ongoing pre-phase Cyclophosphamide-Prednisone while waiting for FISH results and definitive chemotherapy, with goal to prevent further progression and complications. Will continue supportive care and monitor for TLS. BMBx result awaited Heme:Transfusion support as needed for cytopenias ID: No active issues today. 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 Encourage light physical activity and ambulation as tolerated. Neuro/Psych: H/o cerebral vasculaitis, seizure, stroke- continue ASA, depakote, topamax, propranolol Resp: Asthma- cont Breo ellipta, albuterol prn CVS: HTN- cont HCTZ GI/Liver/Nutrition: GERD-continue on omeprazole. Continue nutritional support. FEN/Renal: Risk of TLS, monitoring, hydration , allopurinol. Electrolyte repletion as needed. Medication dosing reviewed and adjusted appropriate for renal functions Disposition: Stay inpatient for new lymphoma and close monitoring and supportive care through engraftment. Risk of infection due to severe neutropenia and immunocompromised state. Risk of adverse effects due to chemotherapy and /or therapeutic immunosuppression, drug interactions, needs close monitoring. Inactive/Resolved issues- None Pending/To follow :GER, BMBx, Drake Pyle MD * Jamal Retana MD - 06/26/2023 5:45 PM EDT Images from the original note were not included. PROGRESS NOTE - Hematology [address] [address] Name: Farhad Franco Location: [facility] B846/A Date: 06/26/2023 Time: 5:45 PM SUBJECTIVE: Was noted to have some increased pain at the bone marrow biopsy site yesterday night. He felt his left lower extremity was stiff for some time when he was about to stand up. Denies any falls. This morning symptoms are improved and he is back to his normal baseline. Denies any sensation changes or weakness this morning. Mom at bedside who provides most of the history. Review of Systems: Negative except as mentioned above Objective Physical Exam Most Recent Vital Signs: BP: 127 mmHg/87 mmHg (06/26/23 151) Pulse: 93 (06/26/23 151) Temp: 37.33 C (06/26/23 151) Temp Summary: Temp Min: 36.4 C (97.6 F) Max: 37.3 C (99.2 F) SpO2: 98 % (06/26/23 151) O2 flow rate: 3 L/MIN (06/22/23 1230) Supplemental O2 Delivery: Room Air, None (06/26/23 1900) Intake/Output Summary (Last 24 hours) at 06/26/2023 1745 Last data filed at 06/26/2023 1721 Gross per 24 hour Intake 1088.51 ml Output 1320 ml Net -231.49 ml Weight: 118.8 kg (262 lb) (06/20/23 2201) Weight: 120.2 kg (265 lb) (06/26/23 0337) Constitutional: In no acute distress with flat affect HEENT: Moist mucous membranes Chest: Normal respiratory effort. Bilateral air entry equal with no crackles or wheezing heard. CVS: S1, S2 + Abdomen: Soft, slight tenderness on lower left and right quadrants.Bowel sounds present Neuro: Alert, awake and following commands. Moving extremities. Strength: 5/5 on proximal and distal lower extremities bilaterally. No changes in the sensation on bilateral lower extremities. Peripheral Line Left;Lower (Active) Number of days: 4 Power PICC Double Lumen Right;Upper Arm (Active) Number of days: 1 STUDIES: Encounter Orders Labs and other studies reviewed with pertinent findings noted below: LABS: I have personally reviewed the following labs CBC/DIFF CHEMISTRY Lab results within last 7 days (see chart for full results) Units 06/26/23 0834 BUN mg/dL 8 Creatinine mg/dL 0.7 Estimated Glomerular Filtration Rate mL/min >90 Sodium mmol/L 137 Potassium mmol/L 3.9 Chloride mmol/L 103 Calcium mg/dL 9.4 Phosphorus mg/dL 3.4 Magnesium mg/dL 1.9 CO2 mmol/L 25 Anion Gap mmol/L 9 Glucose mg/dL 155* Lab results within last 7 days (see chart for full results) Units 06/26/23 0834 WBC K/uL 7.10 HGB g/dL 11.6* PLT K/uL 224 Neutrophils % % 58.7 Monocytes % % 13.0* LFTs Lab results within last 7 days (see chart for full results) Units 06/20/23 1541 Albumin g/dL 4.7 Protein g/dL 7.9 AST U/L 32 ALT U/L 47 Alkaline Phosphatase U/L 95 Bilirubin, Total mg/dL 0.6 A. 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 See comment. at 1607 Sections show small core needle biopsies with [...] controls. CD3 stain background small sized T-cells. Melbeta-5 stains B-cells and is diffusely positive in [...] the B-cells. P53 shows weak diffuse staining. Assessment and Plan Farhad Franco is being admitted to Hematology on 06/25/2023 for possible initiation of chemotherapy for a newly diagnosed CD10 positive aggressive B-cell lymphoma. CD 10+ aggressive B-cell lymphoma Differentials include Burkitt lymphoma, transformed diffuse large B-cell lymphoma. Needs FISH before initiating definitive chemotherapy. -No TLS: elevation of uric acid improved with rasburicase. Does not satisfy Laclede- Webb criteria. -Symptoms: Pain requiring GROUNDSKEEPING MAINTENANCE WORKER and Belbuca. FISH may take 3-5 days and earliest we can expect results is on Thursday -CTAP: Slightly enlarging mass from admission. -start pre phase Cytoxan with steroids(06/26/2023). Cyclophosphamide for 5 days and steroids for 7 days. Indications, alternatives and side effects which includes but not limited to cytopenias, increased risk of infection, increased risk of transfusion, worsening blood glucose levels with frequent monitoring , gastric ulceration discussed with the patient and mom. Chemo consent obtained from the patient. Monitor glucose levels with sliding scale. -Monitor TLS labs BID -prophylaxis: Acyclovir 400 mg twice daily, NS 125 mL/hour, Allopurinol 300 mg BID. Neoplasm related pain Palliative on board: Belbuca to 300 mcg every 12 hours. GROUNDSKEEPING MAINTENANCE WORKER morphine: basal rate of 0.1 mg/hr.Demand dose of 2 mg Q 30 minutes. Senokot 2 tablets by mouth twice daily and as needed. Cerebral vasculitis Migraines Seizure disorder Continue aspirin, Depakote, Topamax, propranolol. Hypertension Continue COMMUNITY AFFAIRS MANAGER hydrochlorothiazide GERD Continue COMMUNITY AFFAIRS MANAGER omeprazole History of asthma COMMUNITY AFFAIRS MANAGER Breo Ellipta, albuterol nebs q.6 hours p.r.n. Full Code: Discussed with patient and mom DVT ppx: Lovenox. Held in the anticipation of LP. Will restart as there is no plan for LP until FISH results are back Pt discussed with Dr. Edenilson Retana MD Hematology and Oncology, PGY-5 [facility] This chart was completed in part utilizing [employer] Speech Voice Recognition Software. Grammatical errors, random word insertions, pronoun errors, and incomplete sentences are an occasional consequence of this system due to software limitations, ambient noise, and hardware issues. Any formal questions or concerns about the content, text, or information contained within the body of this dictation should be directly addressed to the provider for clarification. Associated attestation - Drake Pyle MD - 06/26/2023 6:25 PM EDT I saw and evaluated the patient today. I have reviewed the trainee note and agree. Assessment/Plan Summary: (Please refer to full note below for details) Principle Problem: Retroperitoneal mass, FNA cytology suggestive of CD10 positive B cell lymphoma, cytogenetics and FISH awaited for definite diagnosis ( Burkitt's vs DLBCL vs follicular) before definitive treatment is decided. CT abdomen overnight showed increased side of tumor mass, decision was made to start pre-phase Cyclophosphamide-Prednisone in the interim while waiting for FISH results and definitive chemotherapy, with goal to prevent further progression and complications. Will continuesupportive care and monitor for TLS. BMBx for staging Heme:Transfusion support as needed for cytopenias ID: No active issues today. 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 Encourage light physical activity and ambulation as tolerated. Neuro/Psych: H/o cerebral vasculaitis, seizure, stroke- continue ASA, depakote, topamax, propranolol Resp: Asthma- cont Breo ellipta, albuterol prn CVS: HTN- cont HCTZ GI/Liver/Nutrition: GERD-continue on omeprazole. Continue nutritional support. FEN/Renal: Risk of TLS, monitoring, hydration , allopurinol. Electrolyte repletion as needed. Medication dosing reviewed and adjusted appropriate for renal functions Disposition: Stay inpatient for new lymphoma and close monitoring and supportive care through engraftment. Risk of infection due to severe neutropenia and immunocompromised state. Risk of adverse effects due to chemotherapy and /or therapeutic immunosuppression, drug interactions, needs close monitoring. Inactive/Resolved issues- None Pending/To follow :GER, BMBx, Drake Pyle MD * Jolie Kulkarni [facility] - 06/26/2023 2:40 PM EDT PHARMACIST: REGIMEN NOTE Physician Listed Hematology/Oncology Diagnosis Code: C85.13 Communication Order: Completed [place] Plan: Completed Signed consent: Completed Pre-cert complete: Not completed for inpatient administration Heater Operator/Oncologist: Dr. Pyle Current Treatment Protocol/Regimen Name: [facility] 1002 Pre-phase Cycle: 1 Treatment plan medications: Cyclophosphamide 200 mg/m2 IV days 1-5 Prednisone 60 mg/m2 PO days 1-7 Reference: Blood Res. 2020;56(4):279-284. doi:[id number] Supportive Care: Emesis prophylaxis: Ondansetron 16 mg PO daily, given 30 minutes prior to chemotherapy Hypersensitivity prophylaxis: Diphenhydramine 50 mg IV Push once PRN Hydrocortisone 100 mg IV Push once PRN Epinephrine 0.3 mg IM once PRN Antimicrobial prophylaxis: Acyclovir 400 mg PO BID Hydration: NSS @ 125 mL/hour TLS prophylaxis: Allopurinol 300 mg PO BID Take home medication compliance: Date Last Comprehensive Medication Review Performed: 06/26/2023 Medication Compliant: yes Medication Refills: No refills needed Patient Description: Weight: 120.2 kg Height: 180.3 cm BSA: body surface area is 2.45 meters squared. BMI: Body mass index is 36.96 kg/m. Comments regarding dose calculations: Actual Body Weight Monitoring Parameters CBC and CMP reviewed. Estimated ClCr = Serum creatinine: 0.7 mg/dL 06/26/23 0834 Estimated creatinine clearance: 196.2 mL/min EF: 55% (06/24/2023) Anthracycline cumulative dose: 0% doxorubicin equivalents Hepatitis panel (date): Hepatin A, B, and C negative on 06/24/2023 Drug interaction assessment: Treatment plan and current medication list evaluated for drug-drug interactions. No clinically significant drug interaction identified Oncology Treatment History: 06/22/2023: A. 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 Ki-67 shows a high proliferation rate of 80-90%. 06/26/2023: [facility] 1002 Pre-phase cytoxan Chemotherapy note completed by: Jolie Kulkarni PharmD, BCOP Hematology/Oncology Clinical Pharmacist [facility] 06/26/2023, 2:40 PM Time Spent on Encounter: 21 - 25 minutes Encounter Group: Hematology Encounter Interventions Item Category: Chemotherapy Cyclophosphamide Problem/Rationale: [place] Plan Review: Clinical Review Pharmacist Intervention(s): Lab monitoring and Toxicity monitoring Magnitude of Intervention: Modification of medication for asymtomatic patients (Level 2) * Pillo Jimenez MD - 06/25/2023 5:01 PM EDT PROGRESS NOTE - Palliative Medicine [facility]-[address] [address] Name: Farhad Franco Location: [facility] B846/A Date: 06/25/2023 Time: 5:01 PM SUBJECTIVE: Patient seen and chart reviewed. Family present: yes, reviewed - mom at bedside She was found asleep, snoring, mom at bedside. He had just come back from his bone marrow biopsy. OBJECTIVE: Most Recent Vital Signs: BP: 104 mmHg/62 mmHg (06/25/23 164) Pulse: 84 (06/25/23 164) Temp: 36.56 C (06/25/231645) Temp Summary: Temp Min: 35.6 C (96.1 F) Max: 36.9 C (98.5 F) SpO2: 96 % (06/25/231645) O2 flow rate: 3 L/MIN (06/22/23 1230) Supplemental O2 Delivery: Room Air, None (06/25/23 1900) Vital Signs Last 24 Hours: Systolic BP: Most Recent Systolic BP Av.2 mmHg Min: 104 mmHg Max: 140 mmHg Temperature: Most Recent Temperature Av.6 C Min: 35.61 C Max: 36.94 C Pulse: Pulse Av Min: 67 Max: 100 Respirations: Resp Av Min: 14 Max: 20 SpO2: SpO2 Av % Min: 92 % Max: 98 % On exam chronically ill appearing, well developed, obese, normocephalic, atraumatic, anicteric sclerae, normal respiratory effort. Asleep LABS REVIEWED: yes, reviewed IMAGING REVIEWED: yes, reviewed ASSESSMENT/PLAN: Farhad Franco is a/an 32 year old male referred for consultation to Palliative Medicine with theprimary diagnosis of: Longstanding history of cerebral vasculitis, stroke ischemic at age of 7, subsequent development of fatigue mouth seizures, presenting with new onset back pain and weight loss with large retroperitoneal mass suggestive of lymphoma. Secondary Diagnoses are: GERD, migraine headaches, adjustment disorder with depressed mood, nephrolithiasis, tobacco use disorder, hypertension, bronchial asthma, obesity class 2, possible undiagnosed obstructive sleep apnea Neoplasm related pain: We will continue with the micro dosing regimen, recommend increasing the dose of Belbuca to 300 mcg every 12 hours. Keep GROUNDSKEEPING MAINTENANCE WORKER morphine regimen the same, maintaining GROUNDSKEEPING MAINTENANCE WORKER bolus dose of 2 mg IV every 30 minutes as needed. Opiate induced constipation: Continue with Senokot 2 tablets by mouth twice daily and as needed [id number]. Last bowel movement was yesterday medium-sized than loose. Palliative care: Provided emotional support mom at bedside through reflective listening and empathetic engagement. High-risk patient at high-risk of life threatening complications in the immediate future. Time spent 43 minutes. 27 minutes in complex [id number] patient counseling, education and care coordination Thank you for allowing us to participate in the ongoing care of this patient. Please don't hesitate to call or page with any additional concerns. * Melanie Alatorre CRNP - 06/25/2023 9:10 AM EDT TRANSFER SENDING NOTE - Hospital Medicine [facility]-[address] [address] Name: Farhad Franco Current Location: [facility] B84/ HANDOFF COMMUNICATION: Sending patient service: Hospital Medicine Accepting service: Hematology Sending attending aware of patient and transfer: yes Receiving attending aware of patient and transfer: yes Name of receiving attending provider: Edenilson Patient care is being assumed by receiving service: 9:11 AM in current location Reason for transfer: Transfer to hematology service to initiate chemotherapy for b-cell lymphoma Care during the described time interval was provided by me. I have reviewed this patient's available data, including medical history, events of note, physical examination and test results. INTERVAL HISTORY: In brief, patient was transferred from [facility] on 06/20/2023for IR biopsy of enlarging retroperitoneal mass seen on CT imaging. Underwent IR biopsy on 06/21. Flow cytometry concerning for b-cell lymphoma, cytology is pending. Patient has ongoing R flank and RLQpain, currently on GROUNDSKEEPING MAINTENANCE WORKER morphine, belbuca with moderate pain control. TRANSFER MEDICATION RECONCILIATION COMPLETED? no, because will be completed by accepting service CONSTITUTIONAL DATA: BP: 128 mmHg/82 mmHg (06/25/23 07) Pulse: 100 (06/25/23 07) Temp: 36.72 C (06/25/23 07) Temp Summary: Temp Min: 35.6 C (96.1 F) Max: 37 C (98.6 F) SpO2: 94 % (06/25/23 07) O2 flow rate: 3 L/MIN (06/22/23 1230) Supplemental O2 Delivery: Room Air, None (06/25/23 0900) PHYSICAL EXAM: GENERAL: Sitting in bed comfortably. NAD. SKIN: Warm. Dry. Intact. HEENT: Normocephalic. Atraumatic. Sclera white. PERRLA. CARDIAC: No JVD. RRR. No murmurs, rubs, or gallops. CHEST/PULM: Normal rate and effort of breathing. Lungs CTA in all lobes. No rales, wheezes, or crackles. ABDOMINAL: No distention. Normal bowel sounds in all quadrants. Abdomen soft and nontender. + R CVAtenderness MSK/EXTREMITIES: Extremities warm. No edema VASCULAR: Pulses GIDEON - radial 2+, pedal 2+ PSYCH: Normal mood and affect NEURO: Appearance: No acute distress Mental Status: alert and oriented x 4 LABORATORY VALUES: reviewed RADIOGRAPHIC STUDIES: reviewed Principal Problem: Retroperitoneal mass (POA: Yes) Active Problems: Adjustment disorder with depressed mood (POA: Yes) Gastroesophageal reflux disease with esophagitis (POA: Yes) Tobacco use disorder (POA: Yes) History of petit-mal seizures (POA: Yes) Cerebral vasculitis (POA: Yes) HTN, goal below 140/90 (POA: Yes) Kidney stones (POA: Yes) Hypokalemia (POA: Yes) Neoplasm related pain (POA: Unknown) Therapeutic opioid induced constipation (POA: Unknown) Palliative care encounter (POA: Unknown) Goals of care, counseling/discussion (POA: Unknown) POA = Present On Admission ASSESSMENT and PLAN: DIFFERENTIAL AND PLAN: Farhad Franco is a 32 yo M with GERD, migraines, adjustment disorder withdepressed mood, h/o petit-mal seizures, cerebral vasculitis (c/b history of stroke), HTN, asthma, nephrolithiasis, and tobacco use disorder who initially presented to [facility] on 06/20/2023 with c/o abdominal pain, and was transferred to [facility] this evening to assess for IR biopsy in the setting of a rapidly enlarging retroperitoneal mass (8 x 8 x 8 cm) most suggestive of lymphoma as per radiology read; awaiting definitive tissue diagnosis. Retroperitoneal mass (8 x 8 x 8 cm), suspect B-Cell lymphoma Severe, uncontrolled abdominal pain (improved) Nausea/vomiting (resolved) S/p biopsy IR biopsy. Cytology pending Heme/Onc consulted for recommendations and input May initiate chemotherapy while IP pending cyto On Allopurinol tomorrow in anticipation of treatment. Palliative on board for pain control Belbuca 150 mcg BID Continue Morphine GROUNDSKEEPING MAINTENANCE WORKER. patient on Morphine GROUNDSKEEPING MAINTENANCE WORKER Basal 0.1 mg GROUNDSKEEPING MAINTENANCE WORKER 2 mg, every 30 minutes prn Appreciate further input and recommendations regarding transition to PO regimen. Continue Zofran ODT 4 mg Q8H PRN Chronic problems: - Cerebral vasculitis (c/b history of stroke); migraines - continue COMMUNITY AFFAIRS MANAGER ASA 81 mg PO daily, Depakote ER 500 mg PO HS, Propranolol 40 mg PO BID, Topamax 100 mg PO BID - HTN - continue COMMUNITY AFFAIRS MANAGER HCTZ 12.5 mg PO daily - Allergies - continue COMMUNITY AFFAIRS MANAGER Claritin 10 mg PO daily - GERD - continue COMMUNITY AFFAIRS MANAGER Omeprazole 20 mg PO daily - H/o Asthma - continue COMMUNITY AFFAIRS MANAGER Breo ellipta, Albuterol nebs Q6H PRN Patient's decisional capacity: has capacity to make decisions Communication with Patient/Family: Discussed plan to transfer to hematology service with patient and mother at bedside. All questions and concerns addressed. * Melanie Alatorre CRNP - 06/24/2023 11:12 AM EDT Images from the original note were not included. Hospital Day: 5 Admission Date: 06/20/23 INTERVAL HISTORY: In brief, patient was transferred from [facility] on 06/20/2023for IR biopsy of enlarging retroperitoneal mass seen on CT imaging. Underwent IR biopsy on 06/21. Flow cytometry concerning for b-cell lymphoma, cytology is pending. Patient has ongoing R flank and RLQpain, currently on GROUNDSKEEPING MAINTENANCE WORKER morphine, belbuca with moderate pain control. On exam patient is comfortable appearing, sitting in bed eating breakfast. Reports no acute events overnight. Constitutional: (-) fever chills sweats or weight loss Cardiovascular: (-) negative: no chest pain, dyspnea, syncope, or palpitations Pulmonary: (-) negative: no cough, wheezing, or shortness of breath Objective Physical Exam Most Recent Vital Signs: BP: 120 mmHg/63 mmHg (06/24/23 1025) Pulse: 94 (06/24/23 1025) Temp: 36.78 C (06/24/23 1025) Temp Summary: Temp Min: 36.3 C (97.3 F) Max: 37.1 C (98.8 F) SpO2: 92 % (06/24/23 1025) O2 flow rate: 3 L/MIN (06/22/23 1230) Supplemental O2 Delivery: Room Air, None (06/24/23 102) GENERAL: Sitting in bed comfortably. NAD. SKIN: Warm. Dry. Intact. HEENT: Normocephalic. Atraumatic. Sclera white. PERRLA. CARDIAC: No JVD. RRR. No murmurs, rubs, or gallops. CHEST/PULM: Normal rate and effort of breathing. Lungs CTA in all lobes. No rales, wheezes, or crackles. ABDOMINAL: No distention. Normal bowel sounds in all quadrants. Abdomen soft and nontender. + R CVAtenderness MSK/EXTREMITIES: Extremities warm. No edema VASCULAR: Pulses GIDEON - radial 2+, pedal 2+ PSYCH: Normal mood and affect NEURO: Appearance: No acute distress Mental Status: alert and oriented x 4 STUDIES: Labs and other studies reviewed with pertinent findings noted below: K stable 3.5, goal is 4. PO replacement ordered Latest Reference Range & Units 06/24/23 08:01 Sodium 135 - 146 mmol/L 137 Potassium 3.5 - 5.1 mmol/L 3.5 Chloride 98 - 107 mmol/L 100 CO2 22 - 32 mmol/L 25 BUN 6 - 20 mg/dL 13 Creatinine 0.6 - 1.2 mg/dL 0.8 Estimated Glomerular Filtration Rate >=60 mL/min >90 Anion Gap 7 - 15 mmol/L 12 Glucose 70 - 120 mg/dL 99 Calcium 8.4 - 10.2 mg/dL 9.9 Magnesium 1.5 - 2.6 mg/dL 2.0 Phosphorus 2.5 - 4.8 mg/dL 4.1 INR 0.8 - 1.2 1.0 Prothrombin Time 11.6 - 15.2 seconds 13.4 CBC Rpt WBC 4.00 - 10.80 K/uL 7.75 RBC 4.50 - 5.25 M/uL 4.81 HGB 14.0 - 16.8 g/dL 14.0 HCT 40.0 - 48.4 % 40.6 MCV 82.0 - 99.5 fL 84.4 MCH 27.0 - 34.0 pg 29.1 MCHC 32.0 - 36.0 g/dL 34.5 RDW 11.5 - 15.5 % 12.3 PLT 140 - 400 K/uL 248 MPV 6.6 - 11.1 fL 10.1 Rpt: View report in Results Review for more information Assessment and Plan IMPRESSION : Principal Problem: Retroperitoneal mass Active Problems: Adjustment disorder with depressed mood Gastroesophageal reflux disease with esophagitis Tobacco use disorder History of petit-mal seizures Cerebral vasculitis HTN, goal below 140/90 Kidney stones Hypokalemia Neoplasm related pain Therapeutic opioid induced constipation Palliative care encounter Goals of care, counseling/discussion Resolved Problems: * No resolved hospital problems. * I have examined the patient and consistent with the dietitian's findings found malnutrition presentof Severe (06/22/23 1516) degree. This is consistent with such due to Weight loss;Inadequate energyintake (06/22/23 1516). I have also reviewed and agree with the dietitian's plan of care which include Continued current care plan (06/22/23 1516). DIFFERENTIAL AND PLAN: Farhad Franco is a 32 yo M with GERD, migraines, adjustment disorder withdepressed mood, h/o petit-mal seizures, cerebral vasculitis (c/b history of stroke), HTN, asthma, nephrolithiasis, and tobacco use disorder who initially presented to [facility] on 06/20/2023 with c/o abdominal pain, and was transferred to [facility] this evening to assess for IR biopsy in the setting of a rapidly enlarging retroperitoneal mass (8 x 8 x 8 cm) most suggestive of lymphoma as per radiology read; awaiting definitive tissue diagnosis. Retroperitoneal mass (8 x 8 x 8 cm), suspect B-Cell lymphoma Severe, uncontrolled abdominal pain (improved) Nausea/vomiting (resolved) S/p biopsy IR biopsy. Cytology pending Heme/Onc consulted for recommendations and input May initiate chemotherapy while IP pending cyto On Allopurinol tomorrow in anticipation of treatment. Palliative on board for pain control Belbuca 150 mcg BID Continue Morphine GROUNDSKEEPING MAINTENANCE WORKER. patient on Morphine GROUNDSKEEPING MAINTENANCE WORKER Basal 0.1 mg GROUNDSKEEPING MAINTENANCE WORKER 2 mg, every 30 minutes prn Appreciate further input and recommendations regarding transition to PO regimen. Continue Zofran ODT 4 mg Q8H PRN Chronic problems: - Cerebral vasculitis (c/b history of stroke); migraines - continue COMMUNITY AFFAIRS MANAGER ASA 81 mg PO daily, Depakote ER 500 mg PO HS, Propranolol 40 mg PO BID, Topamax 100 mg PO BID - HTN - continue COMMUNITY AFFAIRS MANAGER HCTZ 12.5 mg PO daily - Allergies - continue COMMUNITY AFFAIRS MANAGER Claritin 10 mg PO daily - GERD - continue COMMUNITY AFFAIRS MANAGER Omeprazole 20 mg PO daily - H/o Asthma - continue COMMUNITY AFFAIRS MANAGER Breo ellipta, Albuterol nebs Q6H PRN Diet: Regular VTE PPX: Lovenox GI PPX: PPI Bowel Regimen: None Lines/Devices: PIV PT/OT: Not consulted Dispo: Med/Surg Code Status: Full Code Expected Discharge: +2 days pending clinical course I spent a total of Greater than 55 mins (exact time 60 mins) on the date of service in preparation,delivery, and documentation of the care provided to Farhad Franco excluding any time spent in the performance of separately billed services. Associated attestation - Tamiko Lowe MD - 06/24/2023 1:55 PM EDT I have reviewed the advanced practitioner's documentation on the date of service referenced in note, and I agree with, and take responsibility for the plan of care. Patient seen with patient's mother at bedside. States that pain is suboptimally controlled with a GROUNDSKEEPING MAINTENANCE WORKER pump, pain is controlled for about 20-25 minutes and is able to get some sleep. Cytology pending for retroperitoneal mass - suspicion of B-cell lymphoma. If confirmed to be initiate chemotherapy with the Oncology while inpatient I spent a total of 21 minutes coordinating, documenting, and providing care for this patient excluding time spent in the performance of separately billed services or time spent by another provider/QHP. * Andrea Coppola MD - 06/23/2023 1:18 PM EDT Images from the original note were not included. [facility] B325/A INTERVAL HISTORY: Overnight: No acute events reported overnight Patient states that he continued to have pain last night, could rest for about 15 - 20 minutes before having to turn in bed due to his back pain. States that medication has not been helping. Discussion held with patient and mother regarding disposition. Patient has PET CT tomorrow that he would like to go for; however, given current uncontrolled pain, unsure if he can be discharged given he has not yet been transitioned to an oral regimen. Objective Physical Exam Most Recent Vital Signs: BP: 132 mmHg/101 mmHg (06/23/23 1146) Pulse: 83 (06/23/23 1146) Temp: 37.11 C (06/23/23 1146) Temp Summary: Temp Min: 36.7 C (98.1 F) Max: 37.3 C (99.1 F) SpO2: 97 % (06/23/23 1146) O2 flow rate: 3 L/MIN (06/22/23 1230) Supplemental O2 Delivery: Room Air, None (06/23/23 114) Physical Examination: Const: Sitting up in bed. Does not appear to be in acute distress HEENT: Moist mucous membranes. Neck: Symmetric, trachea midline. No thyromegaly CVS: RRR. Normal S1/S2, No murmurs or gallops. Peripheral pulses 2+ and equal in all extremities RESP: Unlabored respiratory effort. Clear to auscultation bilaterally (CTAB) GI: Non tender to light palpation. No rebound, rigidity, or guarding. MSK: Tender in the right lower lumbar region of the back as well as in the left lumbar region near biopsy site Skin: Warm, Dry. No rashes or lesions. Neuro: Alert and oriented x 3. Moves all four extremities independently. No focal neurologic deficits. Psych: Normal mood, appropriate affect. Conversational. Peripheral Line Left;Lower (Active) Number of days: 1 STUDIES: Laboratory Values: reviewed Latest Reference Range & Units 06/23/23 06:33 Sodium 135 - 146 mmol/L 137 Potassium 3.5 - 5.1 mmol/L 3.7 Chloride 98 - 107 mmol/L 99 CO2 22 - 32 mmol/L 27 BUN 6 - 20 mg/dL 9 Creatinine 0.6 - 1.2 mg/dL 0.9 Estimated Glomerular Filtration Rate >=60 mL/min >90 Anion Gap 7 - 15 mmol/L 11 Glucose 70 - 120 mg/dL 97 Calcium 8.4 - 10.2 mg/dL 10.2 Magnesium 1.5 - 2.6 mg/dL 2.1 Phosphorus 2.5 - 4.8 mg/dL 3.6 Latest Reference Range & Units 06/23/23 06:33 06/23/23 12:32 LD <=250 U/L 272 (H) Uric Acid 3.4 - 7.0 mg/dL 8.4 (H) (H): Data is abnormally high Latest Reference Range & Units 06/23/23 06:33 WBC 4.00 - 10.80 K/uL 9.13 RBC 4.50 - 5.25 M/uL 4.87 HGB 14.0 - 16.8 g/dL 14.4 HCT 40.0 - 48.4 % 41.8 MCV 82.0 - 99.5 fL 85.8 MCH 27.0 - 34.0 pg 29.6 MCHC 32.0 - 36.0 g/dL 34.4 RDW 11.5 - 15.5 % 12.3 PLT 140 - 400 K/uL 257 MPV 6.6 - 11.1 fL 10.1 Radiographic & Other Studies: reviewed None new. Assessment and Plan IMPRESSION : Principal Problem: Retroperitoneal mass Active Problems: Adjustment disorder with depressed mood Gastroesophageal reflux disease with esophagitis Tobacco use disorder History of petit-mal seizures Cerebral vasculitis HTN, goal below 140/90 Kidney stones Hypokalemia Neoplasm related pain Therapeutic opioid induced constipation Palliative care encounter Goals of care, counseling/discussion Resolved Problems: * No resolved hospital problems. * I have examined the patient and consistent with the dietitian's findings found malnutrition presentof Severe (06/22/231515) degree. This is consistent with such due to Weight loss;Inadequate energyintake (06/22/231515). I have also reviewed and agree with the dietitian's plan of care which include Continued current care plan (06/22/231515). DIFFERENTIAL AND PLAN: Farhad Franco is a 32 yo M with GERD, migraines, adjustment disorder with depressed mood, h/o petit-mal seizures, cerebral vasculitis (c/b history of stroke), HTN, asthma, nephrolithiasis, and tobacco use disorder who initially presented to [facility] on 06/20/2023 with c/o abdominal pain, and was transferred to [facility] this evening to assess for IR biopsy in the setting of a rapidly enlarging retroperitoneal mass (8 x 8 x 8 cm) most suggestive of lymphoma as per radiology read; awaiting definitive tissue diagnosis. Rapidly enlarging Retroperitoneal mass (8 x 8 x 8 cm) Severe, uncontrolled abdominal pain Nausea/vomiting Concern for lymphoma. S/p IR biopsy yesterday. Cytology pending. Heme/Onc consulted for further recommendations. Palliative following for pain control. Started Belbuca this morning with up titration of Morphine GROUNDSKEEPING MAINTENANCE WORKER bolus. Continue following for further recommendations. S/p biopsy IR biopsy. Cytology pending Heme/Onc consulted for recommendations and input Will plan to start Allopurinol tomorrow in anticipation of treatment. Palliative on board Started Belbuca 75 mcg daily Continue Morphine GROUNDSKEEPING MAINTENANCE WORKER. patient on Morphine GROUNDSKEEPING MAINTENANCE WORKER Basal 0.1 mg GROUNDSKEEPING MAINTENANCE WORKER 2 mg, every 30 minutes prn Appreciate further input and recommendations regarding transition to PO regimen. Continue Zofran ODT 4 mg Q8H PRN Chronic problems: - Cerebral vasculitis (c/b history of stroke); migraines - continue COMMUNITY AFFAIRS MANAGER ASA 81 mg PO daily, Depakote ER 500 mg PO HS, Propranolol 40 mg PO BID, Topamax 100 mg PO BID - HTN - continue COMMUNITY AFFAIRS MANAGER HCTZ 12.5 mg PO daily - Allergies - continue COMMUNITY AFFAIRS MANAGER Claritin 10 mg PO daily - GERD - continue COMMUNITY AFFAIRS MANAGER Omeprazole 20 mg PO daily - H/o Asthma - continue COMMUNITY AFFAIRS MANAGER Breo ellipta, Albuterol nebs Q6H PRN PHARMACOLOGIC VTE PROPHYLAXIS: Enoxaparin CODE STATUS: Full Code EXPECTED DISCHARGE DATE: No information available Patient was seen, was examined, and was discussed with Dr. Argueta. Associated attestation - Jakub Argueta DO - 06/23/2023 4:46 PM EDT I saw and evaluated the patient today. I have reviewed the trainee note and agree. Principal Problem: Retroperitoneal mass (POA: Yes) Active Problems: Adjustment disorder with depressed mood (POA: Yes) Gastroesophageal reflux disease with esophagitis (POA: Yes) Tobacco use disorder (POA: Yes) History of petit-mal seizures (POA: Yes) Cerebral vasculitis (POA: Yes) HTN, goal below 140/90 (POA: Yes) Kidney stones (POA: Yes) Hypokalemia (POA: Yes) Neoplasm related pain (POA: Unknown) Therapeutic opioid induced constipation (POA: Unknown) Palliative care encounter (POA: Unknown) Goals of care, counseling/discussion (POA: Unknown) Resolved Problems: * No resolved hospital problems. * POA = Present On Admission Pain remains suboptimally controlled this morning which required an increase in his GROUNDSKEEPING MAINTENANCE WORKER dose. Afebrile and hemodynamically stable. I discussed with Oncology today, the preliminary tissue seems to suggest a lymphoproliferative process but needs further studies to confirm. He may benefit from acute inpatient initiation of chemotherapy once results are confirmed. I discussed in detail with the patient as well as his mother about the preliminary results. They expressed understanding and appreciate the possibility of starting treatment sooner rather than later. Appreciate palliative recommendations and help with analgesic management. * Andrea Coppola MD - 06/22/2023 12:57 PM EDT Images from the original note were not included. [facility] RADIOLOGY WAITING ROOM/IR INTERVAL HISTORY: Overnight, patient uncontrolled pain. Night time increased GROUNDSKEEPING MAINTENANCE WORKER bolus settings from 0.5 to 1 mg Morphine and from hourly to twice hourly availability. Patient seen and evaluated at bedside this morning. Continue to complain of pain. Noted frequent periods of being awakened during sleep which was not helpful given the pain prevents him from resting.Did sleep briefly after GROUNDSKEEPING MAINTENANCE WORKER boluses. Objective Physical Exam Most Recent Vital Signs: BP: 188 mmHg/107 mmHg (06/22/23 1230) Pulse: 80 (06/22/23 1230) Temp: 36.39 C (06/22/23 1015) Temp Summary: Temp Min: 36.2 C (97.2 F) Max: 37.4 C (99.3 F) SpO2: 100 % (06/22/23 1230) O2 flow rate: 3 L/MIN (06/22/23 1230) Supplemental O2 Delivery: Nasal Cannula (06/22/23 1230) Physical Examination: Const: Standing, appears uncomfortably in intermittent distress. HEENT: Moist mucous membranes. Neck: Symmetric, trachea midline. No thyromegaly CVS: RRR. Normal S1/S2, No murmurs or gallops. Peripheral pulses 2+ and equal in all extremities RESP: Unlabored respiratory effort. Clear to auscultation bilaterally (CTAB) GI: Tender to deep palpation throughout. No rebound, rigidity, or guarding. MSK: No spinal tenderness. No edema Skin: Warm, Dry. No rashes or lesions. Neuro: Alert and oriented x 3. Moves all four extremities independently. No focal neurologic deficits. Psych: Normal mood, appropriate affect. Conversational. Peripheral Line Lower;Right Arm 22 Gauge (Active) Number of days: 1 STUDIES: Laboratory Values: reviewed Latest Reference Range & Units 06/22/23 07:31 Sodium 135 - 146 mmol/L 137 Potassium 3.5 - 5.1 mmol/L 3.0 (L) Chloride 98 - 107 mmol/L 99 CO2 22 - 32 mmol/L 25 BUN 6 - 20 mg/dL 10 Creatinine 0.6 - 1.2 mg/dL 0.9 Estimated Glomerular Filtration Rate >=60 mL/min >90 Anion Gap 7 - 15 mmol/L 13 Glucose 70 - 120 mg/dL 98 Calcium 8.4 - 10.2 mg/dL 9.5 Magnesium 1.5 - 2.6 mg/dL 1.9 Phosphorus 2.5 - 4.8 mg/dL 3.3 (L): Data is abnormally low Latest Reference Range & Units 06/22/23 07:31 WBC 4.00 - 10.80 K/uL 9.47 RBC 4.50 - 5.25 M/uL 4.37 HGB 14.0 - 16.8 g/dL 13.1 (L) HCT 40.0 - 48.4 % 37.2 (L) MCV 82.0 - 99.5 fL 85.1 MCH 27.0 - 34.0 pg 30.0 MCHC 32.0 - 36.0 g/dL 35.2 RDW 11.5 - 15.5 % 12.2 PLT 140 - 400 K/uL 217 MPV 6.6 - 11.1 fL 10.0 (L): Data is abnormally low Radiographic & Other Studies: reviewed None new. Assessment and Plan IMPRESSION : Principal Problem: Retroperitoneal mass Active Problems: Adjustment disorder with depressed mood Gastroesophageal reflux disease with esophagitis Tobacco use disorder History of petit-mal seizures Cerebral vasculitis HTN, goal below 140/90 Kidney stones Hypokalemia Resolved Problems: * No resolved hospital problems. * DIFFERENTIAL AND PLAN: Farhad Franco is a 32 yo M with GERD, migraines, adjustment disorder with depressed mood, h/o petit-mal seizures, cerebral vasculitis (c/b history of stroke), HTN, asthma, nephrolithiasis, and tobacco use disorder who initially presented to [facility] on 06/20/2023 with c/o abdominal pain, and was transferred to [facility] this evening to assess for IR biopsy in the setting of a rapidly enlarging retroperitoneal mass (8 x 8 x 8 cm) most suggestive of lymphoma as per radiology read; awaiting definitive tissue diagnosis. Rapidly enlarging Retroperitoneal mass (8 x 8 x 8 cm) Severe, uncontrolled abdominal pain Nausea/vomiting Concern for lymphoma or other malignancy. Patient to go for IR biopsy today. Pain better controlledon Morphine GROUNDSKEEPING MAINTENANCE WORKER, but still sub-optimal. Palliative consulted in regards to transitioning patient from pump to oral analgesic regimen. IR Biopsy today. Can resume DVT ppx and diet once patient returns. Continue Morphine GROUNDSKEEPING MAINTENANCE WORKER. patient on Morphine GROUNDSKEEPING MAINTENANCE WORKER Basal 0.1 mg GROUNDSKEEPING MAINTENANCE WORKER 1 mg, every 30 minutes prn Palliative consult placed; appreciate recommendations regarding transition to PO regimen for discharge. Continue Zofran ODT 4 mg Q8H PRN Patient already has outpatient heme/onc appointment scheduled Chronic problems: - Cerebral vasculitis (c/b history of stroke); migraines - continue COMMUNITY AFFAIRS MANAGER ASA 81 mg PO daily, Depakote ER 500 mg PO HS, Propranolol 40 mg PO BID, Topamax 100 mg PO BID - HTN - continue COMMUNITY AFFAIRS MANAGER HCTZ 12.5 mg PO daily - Allergies - continue COMMUNITY AFFAIRS MANAGER Claritin 10 mg PO daily - GERD - continue COMMUNITY AFFAIRS MANAGER Omeprazole 20 mg PO daily - H/o Asthma - continue COMMUNITY AFFAIRS MANAGER Breo ellipta, Albuterol nebs Q6H PRN PHARMACOLOGIC VTE PROPHYLAXIS: This patient does not have an active medication from one of the medication groupers. CODE STATUS: Full Code EXPECTED DISCHARGE DATE: 06/23/2023 Patient was seen, was examined, and was discussed with Dr. Argueta. Associated attestation - Jakub Argueta DO Bert - 06/22/2023 1:34 PM EDT I saw and evaluated the patient today. I have reviewed the trainee note and agree. I spent a total of 38 minutes providing care for this patient. Management included assessment and examination of thepatient and detailed review and preparation of records. More than half of my time was spent counseling the patient or family and coordinating care for the patient on the floor. To IR for RP mass biopsy today Analgesic regimen remains an issue - discussed at length with mother at bedside as well regarding deleterious side effects of high dose of opioids, especially parenteral * Andrea Coppola MD - 06/21/2023 8:00 AM EDT Images from the original note were not included. [facility] B325/A INTERVAL HISTORY: Patient seen and evaluated at bedside in the presence of patient's mother. Patient still with considerable back pain on morning examination on the right lower side. Nausea had improved. Dilaudid is effective in controlling pain, but does not last for long. Discussed plan to biopsy with patient and family. All question and concerns were addressed. Objective Physical Exam Most Recent Vital Signs: BP: 130 mmHg/97 mmHg (06/21/23 1042) Pulse: 72 (06/21/23 1042) Temp: 36.61 C (06/21/23 104) Temp Summary: Temp Min: 36.2 C (97.2 F) Max: 36.6 C (97.9 F) SpO2: 97 % (06/21/23 1042) O2 flow rate: Supplemental O2 Delivery: Physical Examination: Const: Sitting up in bed with eyes closely, intermittently grimacing, in discomfort. Answers questions appropriately. HEENT: Moist mucous membranes. Neck: Symmetric, trachea midline. No thyromegaly CVS: RRR. Normal S1/S2, No murmurs or gallops. Peripheral pulses 2+ and equal in all extremities RESP: Unlabored respiratory effort. Clear to auscultation bilaterally (CTAB) GI: Tender to deep palpation throughout. No rebound, rigidity, or guarding. MSK: Tender to palpation in the right lower lumbar area. No spinal tenderness. No edema Skin: Warm, Dry. No rashes or lesions. Neuro: Alert and oriented x3. Moves all four extremities independently. No focal neurologic deficits. Psych: Normal mood, appropriate affect. Conversational. Peripheral Line Right;Upper 20 Gauge (Active) Number of days: 1 STUDIES: Laboratory Values: reviewed Latest Reference Range & Units 06/21/23 07:08 Sodium 135 - 146 mmol/L 138 Potassium 3.5 - 5.1 mmol/L 2.9 (L) Chloride 98 - 107 mmol/L 100 CO2 22 - 32 mmol/L 28 BUN 6 - 20 mg/dL 10 Creatinine 0.6 - 1.2 mg/dL 1.0 Estimated Glomerular Filtration Rate >=60 mL/min >90 Anion Gap 7 - 15 mmol/L 10 Glucose 70 - 120 mg/dL 107 Calcium 8.4 - 10.2 mg/dL 9.2 Magnesium 1.5 - 2.6 mg/dL 2.0 Phosphorus 2.5 - 4.8 mg/dL 3.7 (L): Data is abnormally low Latest Reference Range & Units 06/21/23 07:08 WBC 4.00 - 10.80 K/uL 8.21 RBC 4.50 - 5.25 M/uL 4.47 HGB 14.0 - 16.8 g/dL 13.1 (L) HCT 40.0 - 48.4 % 37.8 (L) MCV 82.0 - 99.5 fL 84.6 MCH 27.0 - 34.0 pg 29.3 MCHC 32.0 - 36.0 g/dL 34.7 RDW 11.5 - 15.5 % 12.3 PLT 140 - 400 K/uL 222 MPV 6.6 - 11.1 fL 10.1 (L): Data is abnormally low Radiographic & Other Studies: reviewed None new. Assessment and Plan IMPRESSION : Active Problems: Retroperitoneal mass Resolved Problems: * No resolved hospital problems. * DIFFERENTIAL AND PLAN: Farhad Franco is a 32 yo M with GERD, migraines, adjustment disorder with depressed mood, h/o petit-mal seizures, cerebral vasculitis (c/b history of stroke), HTN, asthma, nephrolithiasis, and tobacco use disorder who initially presented to [facility] on 06/20/2023 with c/o abdominal pain, and was transferred to [facility] this evening to assess for IR biopsy in the setting of a rapidly enlarging retroperitoneal mass (8 x 8 x 8 cm) most suggestive of lymphoma as per radiology read; awaiting definitive tissue diagnosis. Rapidly enlarging Retroperitoneal mass (8 x 8 x 8 cm) Severe, uncontrolled abdominal pain Nausea/vomiting Concern for lymphoma or other malignancy. Touched base with IR, they are planning on biopsy tomorrow. Patient with significant pain on presentation requiring full PRN dilaudid usage + additional break through doses. We have transitioned patient to Morphine GROUNDSKEEPING MAINTENANCE WORKER for improved analgesic control. NPO after midnight for biopsy with IR tomorrow. Will hold DVT prophylaxis as well. Started patient on Morphine GROUNDSKEEPING MAINTENANCE WORKER Basal 0.1 mg GROUNDSKEEPING MAINTENANCE WORKER 0.5 mg, once per hour Continue Zofran ODT 4 mg Q8H PRN Patient already has outpatient heme/onc appointment scheduled Given pain and other symptoms in the setting of suspected malignancy, would likely benefit from palliative referral on discharge. Chronic problems: - Cerebral vasculitis (c/b history of stroke); migraines - continue COMMUNITY AFFAIRS MANAGER ASA 81 mg PO daily, Depakote ER 500 mg PO HS, Propranolol 40 mg PO BID, Topamax 100 mg PO BID - HTN - continue COMMUNITY AFFAIRS MANAGER HCTZ 12.5 mg PO daily - Allergies - continue COMMUNITY AFFAIRS MANAGER Claritin 10 mg PO daily - GERD - continue COMMUNITY AFFAIRS MANAGER Omeprazole 20 mg PO daily - H/o Asthma - continue COMMUNITY AFFAIRS MANAGER Breo ellipta, Albuterol nebs Q6H PRN PHARMACOLOGIC VTE PROPHYLAXIS: Enoxaparin CODE STATUS: Full Code EXPECTED DISCHARGE DATE: No information available Patient was seen, was examined, and was discussed with Dr. Argueta. Associated attestation - Jakub Argueta DO - 06/22/2023 7:44 AM EDT I saw and evaluated the patient 06/21/23. I have reviewed the trainee note and agree. I spent a totalof 50 minutes providing care for this patient. Management included assessment and examination of the patient and detailed review and preparation of records. More than half of my time was spent counseling the patient or family and coordinating care for the patient on the floor. Transferred from [facility] with enlarging RP mass with associated back pain and weight loss. IR plans forhopeful biopsy tomorrow. Suspicion for possible lymphoma. Needs better pain control - was receivingIV hydromorphone. To attempt better control, will try GROUNDSKEEPING MAINTENANCE WORKER morphine to provide basal rate as well. Lengthy discussion with the patient, mother, and sister at bedside re: plan of care. documented in this encounter H&P Notes * Jamal Retana MD - 06/25/2023 11:16 AM EDT Images from the original note were not included. 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 Transferred to [facility] to assess for IR biopsy in the setting of rapidly enlarging retroperitoneal mass on CT imaging. As per mother, he was on number of medications for his vasculitis like CellCept, Cytoxan, methotrexate from 1997 through 2014. Biopsy of retroperitoneal mass consistent with CD10 positive high-grade lymphoma with continued abdominal pain requiring morphine GROUNDSKEEPING MAINTENANCE WORKER pump. His uric acid was elevated s/p rasburicase. Transferred to inpatient service for initiating chemotherapy. Subjective Flat affect, as per mother he is at his baseline. He is very anxious about bone marrow procedure and agreeable to it if he gets morphine and Ativan to calm him down before procedure. He didn't have great experience with IR guided biopsy for retroperitoneal mass and apprehensive about any procedure. Patient's past history, medications, and allergies were reviewed. Objective Physical Exam Most Recent Vital Signs: BP: 104 mmHg/62 mmHg (06/25/23 164) Pulse: 84 (06/25/231645) Temp: 36.56 C (06/25/231645) Temp Summary: Temp Min: 35.6 C (96.1 F) Max: 36.9 C (98.5 F) SpO2: 96 % (06/25/23 1646) O2 flow rate: 3 L/MIN (06/22/23 1230) Supplemental O2 Delivery: Room Air, None (06/25/23 1900) Constitutional: Alert calm with flat affect. HEENT: Moist mucous membranes. Anicteric sclera CVS: Regular rate and rhythm. S1, S2 positive. Chest: Bilateral air entry equal. No crackles or wheezing heard. Abdomen: Soft, tenderness to palpation on the lower quadrant of the abdomen bilaterally. Bowel sounds positive. No guarding or rigidity. Extremities: Trace edema bilateral lower extremities. Neuro: Alert, oriented x3, moving all extremities. Psych: Flat affect Peripheral Line Left;Lower (Active) Number of days: 3 STUDIES: Encounter Orders Labs and other studies reviewed with pertinent findings noted below: LABS: I have personally reviewed the following labs CBC/DIFF CHEMISTRY Lab results within last 7 days (see chart for full results) Units 06/25/23 0820 BUN mg/dL 13 Creatinine mg/dL 0.7 Estimated Glomerular Filtration Rate mL/min >90 Sodium mmol/L 137 Potassium mmol/L 4.0 Chloride mmol/L 102 Calcium mg/dL 9.3 Phosphorus mg/dL 3.4 Magnesium mg/dL 1.8 CO2 mmol/L 23 Anion Gap mmol/L 12 Glucose mg/dL 118 Lab results within last 7 days (see chart for full results) Units 06/25/23 0820 WBC K/uL 7.06 HGB g/dL 12.1* PLT K/uL 232 Neutrophils % % 50.0 Monocytes % % 16.0* LFTs Lab results within last 7 days (see chart for full results) Units 06/20/23 1541 Albumin g/dL 4.7 Protein g/dL 7.9 AST U/L 32 ALT U/L 47 Alkaline Phosphatase U/L 95 Bilirubin, Total mg/dL 0.6 A. 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 See comment. at 1607 Sections show small core needle biopsies with [...] controls. CD3 stain background small sized T-cells. Melbeta-5 stains B-cells and is diffusely positive in [...] the B-cells. P53 shows weak diffuse staining. 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 * I have examined the patient and consistent with the dietitian's findings found malnutrition presentof Severe (06/22/23 1516) degree. This is consistent with such due to Weight loss;Inadequate energyintake (06/22/23 1516). I have also reviewed and agree with the dietitian's plan of care which include Continued current care plan (06/22/23 1516). DIFFERENTIAL AND PLAN: Farhad Franco is being admitted to Hematology on 06/25/2023 for possible initiation of chemotherapy for a newly diagnosed CD10 positive aggressive B-cell lymphoma. CD 10+ aggressive B-cell lymphoma Differentials include Burkitt lymphoma, transformed diffuse large B-cell lymphoma. Needs FISH before initiating definitive chemotherapy. -No TLS: elevation of uric acid improved with rasburicase. Does not satisfy [place]- Webb criteria. -Symptoms: Pain requiring GROUNDSKEEPING MAINTENANCE WORKER. Will hold chemo until FISH results are back. Asked to expedite the process. Probably takes 3 days. -If need for emergent chemotherapy arise: will cytoreduce with pre phase steroids and cytoxan. -Monitor TLS labs daily. Hepatitis labs and TTE Done -Continue allopurinol 300 mg BID. Neoplasm related pain Palliative on board: Bel[place]uca to 300 mcg every 12 hours. GROUNDSKEEPING MAINTENANCE WORKER morphine: basal rate of 0.1 mg/hr.Demand dose of 2 mg Q 30 minutes. Senokot 2 tablets by mouth twice daily and as needed. Cerebral vasculitis Migraines Seizure disorder Continue aspirin, Depakote, Topamax, propranolol. Hypertension Continue COMMUNITY AFFAIRS MANAGER hydrochlorothiazide GERD Continue COMMUNITY AFFAIRS MANAGER omeprazole History of asthma COMMUNITY AFFAIRS MANAGER Breo Ellipta, albuterol nebs q.6 hours p.r.n. Full Code: Discussed with patient and mom DVT ppx: Lovenox. Hold for tomorrow in the anticipation of LP Discharge Planning: Anticipated Discharge Date: TBD Disposition: Probably home Line Care and Services: \\needs a PICC line for chemotherapy. Orders placed Discharge Medications: Pre-Certifications/Prior Authorizations: TBD (include copay) MTM referral TBD Outpatient Follow-Up: Follow-up with hematology/oncology : TBD Pt discussed with Dr. Edenilson Retana MD Hematology and Oncology, PGY-5 [facility] This chart was completed in part utilizing Vdan[employer] Speech Voice Recognition Software. Grammatical errors, random word insertions, pronoun errors, and incomplete sentences are an occasional consequence of this system due to software limitations, ambient noise, and hardware issues. Any formal questions or concerns about the content, text, or information contained within the body of this dictation should be directly addressed to the provider for clarification. Associated attestation - Drake Pyle MD - 06/26/2023 4:22 PM EDT I saw and evaluated the patient on 06/25/2023. I have reviewed the trainee note and agree. 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 Will continue supportive care and monitor for TLS. BMBx for staging Heme:Transfusion support as needed for cytopenias ID: No active issues today. 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 Repeat CT abdomen to rule out infection. Encourage light physical activity and ambulation as tolerated. Neuro/Psych: H/o cerebral vasculaitis, seizure, stroke- continue ASA, depakote, topamax, propranolol Resp: Asthma- cont Breo ellipta, albuterol prn CVS: HTN- cont HCTZ GI/Liver/Nutrition: GERD-continue on omeprazole. Continue nutritional support. FEN/Renal: Risk of TLS, monitoring, hydration , allopurinol. Electrolyte repletion as needed. Medication dosing reviewed and adjusted appropriate for renal functions Disposition: Stay inpatient for new lymphoma and close monitoring and supportive care through engraftment. Risk of infection due to severe neutropenia and immunocompromised state. Risk of adverse effects due to chemotherapy and /or therapeutic immunosuppression, drug interactions, needs close monitoring. Inactive/Resolved issues- None Pending/To follow :GER, BMBx, CT Drake Pyle MD * Janice Drew MD - 06/22/2023 10:38 AM EDT PRE-SEDATION ASSESSMENT: Retroperitoneal Biopsy Level of sedation planned: Moderate Patient's allergies reviewed: Yes H&P Review / Interval Note Documentation: I have reviewed the H&P previously performed, examined the patient today, and there are no new findings. Retroperitoneal mass Difficulty with sedation / anesthesia: No Sleep apnea: No History of snoring: Yes History of difficult intubation: No Decreased ROM neck flexion/extension: No Tracheal deviation: No Decreased ability to open mouth / TMJ: No Loose teeth / dentures / partial: No Congenital deformities / abnormalities: No Dysphagia: No Mallampati Classification: III - soft palate, base of uvula visible ASA Risk Stratification (Select One): ASA 2 - Mild systemic disease, no functional limitations The patient was identified and the procedure verified: Yes Ok to proceed with biopsy under moderate sedation. * Muna Solitario, - 06/20/2023 10:28 PM EDT Images from the original note were not included. [facility] B325/A PRESENTING PROBLEM: Abdominal pain HPI: Farhad Franco is a 32 yo M with GERD, migraines, adjustment disorder with depressed mood, h/o petit-mal seizures, cerebral vasculitis (c/b history of stroke), HTN, asthma, nephrolithiasis, and tobacco use disorder who initially presented to [facility] on 06/20/2023 with c/o abdominal pain, and was transferred to [facility] this evening to assess for IR biopsy in the setting of a rapidly enlarging retroperitoneal mass appreciated on CT imaging. Upon arrival to [facility], patient's T 98.8 deg F, HR 74, RR 18, BP 147/111 mmHg, and SpO2 100% on RA. Lab work showed K 3.4 without any other significant abnormalities. CTA a/p showed no acute arterial pathology, however presence of an 8 x 8 x 8 cm upper retroperitoneal lesion most suggestive of lymphoma and probably minor multilobar pneumonitis with non-obstructive L nephrolithiasis. He was give a 1 x dose Tylenol, Zofran, and Dilaudid in [facility] ED for symptom management prior to transfer. Patient received an additional Fentanyl 100 mcg x1 en route due to refractory pain symptoms. Patient was seen and examined at bedside upon arrival to [facility]. He is accompanied by his parents, whoreport that patient often times has trouble communicating and relaying information as a result of his prior stroke. His parents state that he has been experiencing intermittent pain symptoms across the lower abdomen and into the back for about one year now which was attributed primarily to kidney st ones. Over the past 9 days, he has been experiencing a significant increase in this pain, and when his family went to see him earlier in the day they found him lying on the floor crying. They broughthim into the ED because of this. They state that they knew there was a mass previously (first diagnosed in 05/2023) and he was to get a PET scan and biopsy outpatient, however it has markedly increased in size since his last imaging was done. His parents report that he does have a history of cerebral vasculitis with prior stroke, and he was on a number of immunomodulating medications in the past including Cellcept, Cytoxan, and Methotrexate from 1997 through 2014, and then in 2014 these medications were discontinued altogether as his vasculitis remained stable. Patient states that presently his pain is around 6/10 severity, and describes it as a sharp pain mostly across the lower abdomen. Patient and family report about a 26 lb weight loss over the past month. He has been more nauseated and constipated. He has also been experiencing poor PO intake as a result of nausea and reduced appetite, and states that he will often times only eat soup. He has had one episode of emesis this week but reports feeling nauseated frequently. Patient and family deny anyurinary symptoms or hematuria. He reports feeling warm "on and off" but denies any night sweats. Hereports some chest discomfort when straining to have a BM; but states that it is difficult for him to say if he is more constipated than usual. He and his family attributed his less frequent bowel movements to his poor PO intake. Patient wishes to remain Full Code this admission. Subjective Patient's past history, medications, and allergies were reviewed. Objective Physical Exam Most Recent Vital Signs: BP: 147 mmHg/107 mmHg (06/20/232217) Pulse: 64 (06/20/232217) Temp: 36.22 C (06/20/232217) Temp Summary: Temp Min: 36.2 C (97.2 F) Max: 36.2 C (97.2 F) SpO2: 98 % (06/20/232217) O2 flow rate: Supplemental O2 Delivery: Constitutional: Resting in bed; appears uncomfortable HEENT: NC/AT Cardiovascular: RRR, no murmurs appreciated. Lungs: Clear to auscultation b/l. No wheezes, rales, or rhonchi. Abdomen: Soft with diffuse tenderness most prominent at lower quadrants; no rebound or guarding Extremities: No LE edema b/l. Distal pulses intact in LE b/l. Skin: Warm, dry, intact. No appreciable rashes or lesions. Neurologic: Slow to respond/answer questions; residual deficit from prior stroke as per patient's parents. At cognitive baseline. Psych: Appropriate mood and affect. Peripheral Line Right;Upper 20 Gauge (Active) Number of days: 1 STUDIES: Encounter Orders Labs and other studies reviewed with pertinent findings noted below: Lab results within last 7 days (see chart for full results) Units 06/20/23 1541 HGB g/dL 14.3 HCT % 40.5 WBC K/uL 7.53 PLT K/uL 234 Neutrophils % % 56.6 Monocytes % % 12.7* Eosinophils % % 0.5 Lab results within last 7 days (see chart for full results) Units 06/20/23 1541 Sodium mmol/L 138 Potassium mmol/L 3.4* Chloride mmol/L 98 CO2 mmol/L 24 BUN mg/dL 10 Creatinine mg/dL 1.0 Lab results within last 7 days (see chart for full results) Units 06/20/23 1541 Protein g/dL 7.9 Bilirubin, Total mg/dL 0.6 Alkaline Phosphatase U/L 95 AST U/L 32 ALT U/L 47 Lab results within last 7 days (see chart for full results) Units 06/20/23 1541 Lactate mmol/L 1.1 Latest Reference Range & Units 06/20/23 15:41 Lipase 13 - 60 U/L 14 Latest Reference Range & Units 06/20/23 17:18 Color, Urine Light Yellow, Yellow, Dark Yellow Yellow Clarity, Urine Clear Clear Glucose, Urine Negative mg/dL Negative Bilirubin, Urine Negative Negative Ketone, Urine Negative mg/dL Trace ! Specific [place], Urine 1.003 - 1.030 1.049 (H) Blood, Urine Negative Trace ! pH, Urine 5.0 - 7.5 Units 5.5 Protein, Urine Negative mg/dL Negative Urobilinogen, Urine 0.2, 1.0 mg/dL 0.2 Nitrite, Urine Negative Negative Esterase, Urine Negative Negative Bacteria, Urine 0 - 25 /HPF 0-25 WBC, Urine 0 - 2 /HPF 0-2 RBC, Urine 0 - 2 /HPF 0-2 CTA a/p (06/20/2023): IMPRESSION: 1. No acute arterial pathology. 2. 8 x 8 x 8 cm upper retroperitoneal lesion, most suggestive of lymphoma. 3. Probable minor multilobar pneumonitis. 4. Nonobstructive left nephrolithiasis. Assessment and Plan IMPRESSION: Active Problems: Retroperitoneal mass Resolved Problems: * No resolved hospital problems. * Farhad Franco is a 32 yo M with GERD, migraines, adjustment disorder with depressed mood, h/o petit-mal seizures, cerebral vasculitis (c/b history of stroke), HTN, asthma, nephrolithiasis, and tobacco use disorder who initially presented to [facility] on 06/20/2023 with c/o abdominal pain, and was transferred to [facility] this evening to assess for IR biopsy in the setting of a rapidly enlarging retroperitoneal mass (8 x 8 x 8 cm) most suggestive of lymphoma as per radiology read; awaiting definitive tissue diagnosis. DIFFERENTIAL AND PLAN: Rapidly enlarging Retroperitoneal mass (8 x 8 x 8 cm) -- concern for ?lymphoma; awaiting definitivetissue diagnosis Severe, uncontrolled abdominal pain Nausea/vomiting Patient is s/p 1x dose dilaudid 0.5 mg at [facility] ED; 1x dose fentanyl 100 mcg en route. He reports most relief from administration of dilaudid but is still experiencing 6/10 pain on presentation. Will continue dilaudid 0.2 mg IV Q6H PRN for moderate pain, dilaudid 0.5 mg Q6H PRN for severe pain. 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 Villafuerte at the time of admission. Associated attestation - Inocente Villafuerte DO - 06/21/2023 5:17 PM EDT I saw and evaluated the patient on 06/20/23. I have reviewed the trainee note and agree. I spent a total of 58 minutes coordinating, documenting, and providing care for this patient excluding time spent in the performance of separately billed services. documented in this encounter Procedure Notes * Kike Marquez PA-C - 07/02/2023 2:44 PM EDT PROCEDURE - Lumbar Puncture with Chemotherapy - Hematology Service [address] [place] [address] Name: Farhad Franco Location: [facility] B846/A Date: 07/02/2023 Time: 2:44 PM PRIOR TO PROCEDURE: Verify Correct Patient: Yes Verify Correct Site: Yes Verify Procedure Matches Verbalized Consent: Yes Verify Correct Position: Yes Availability of Necessary Equipment: Yes Other Healthcare Professional(s) Verbalize(s) Agreement with Timeout: Yes Anticoagulation / Antiplatelet: Lovenox and aspirin given on 07/01/2023 AM. Held 07/02/2023 AM Platelet Evaluation: 237 PT: was not checked PTT: was not checked PROCEDURE NOTE: Procedure: Lumbar puncture with chemotherapy Indication: Burkitt's Lymphoma, assessing if there is any CSF involvement and prophylactic treatment while obtained diagnostic CSF sample Body Wirer/Aviation Boatswain'S Mate: Kike Marquez PA-C Complication/Corrective Action: Difficulty obtaining access at L3-L4 and moved to L4-L5 and obtained access. Comments/Findings: Patient identified and verified with medical record, name, and/or . After informed consent was obtained the patient was positioned, and an area was identified in the L4-5 interspace. Using sterile technique, the area was prepped with betadine and infiltrated with 1% lidocaine without epinephrine. The patient specifically denied an allergy to lidocaine. Using a 20 gauge spinal needle 6 milliliters of clear spinal fluid was obtained. 12mg in 5 milliliters of preserv ative free methotrexate was slowly instilled intrathecally. The needle was then removed, and a dressing was applied. The patient tolerated the procedure well. Specimens were sent to lab for: Cell count and quantitative differential Cytology Protein Glucose Flow cytometry The patient was provided with written and verbal instructions. Minimal blood loss. Associated attestation - Yaz Molina MD - 07/02/2023 5:22 PM EDT I have reviewed the advanced practitioner's documentation on the date of service referenced in note, and I agree with, and take responsibility for the plan of care. I spent a total of 30 minutes coordinating, documenting, and providing care for this patient excluding time spent in the performance of separately billed services or time spent by another provider/QHP. * Maryjo Joe RN - 06/25/2023 6:57 PM EDTAssociated Order(s): Central Line PROCEDURE NOTE [facility] [address] Name: Farhad Franco Location: [facility] B846/A Date: 06/25/2023 Time: 6:57 PM Central Line General Information and Staff: Performed by: Maryjo Joe RN Assisted by: Mirna Gutierrez RN Supervised by: Mirna Gutierrez RN Patient Location: Med/Surg Indication: Chemotherapy Patient identity confirmed: Verbally with patient and arm band Verbal confirmation: MRN, name and date of Verbal consent obtained: Yes Written consent obtained: Yes Written consent obtained as part of Anesthesia consent: No Consent given by: Patient and parent Understanding of procedure being performed: Yes Understanding of procedure matches verbalized consent: Yes Procedure consent matches procedure scheduled: Yes Allergies reviewed: Yes Site marked: yes Verify correct position: Yes Radiology Studies available/reviewed: yes Relevant Lab Results available/reviewed: yes Required items available: yes Other healthcare professional(s) verbalize(s) agreement with time out: Yes Name(s): Mirna Del Rio RN Time out: Immediately prior to the procedure a time out was completed Anticoagulation therapy: Yes Medication: Heparin and Other (comment) (Aspirin) Procedure Detail: Sterility Preparation: mask worn, sterile gloves worn, cap worn, sterile sheet used, sterile gown worn and full body drape Provider Hand Hygiene: alcohol-based hand rub Medical Reason for Not Performing Maximal Sterile Barrier Technique: No Placement conditions: Elective Patient Position: Supine Prep: Chlorhexidine Local Anesthetic Used: Yes Catheter Type: Power PICC PICC Laterality: Right and Upper PICC Site: Arm PICC Vessel: Basilic Catheter size: 4 Fr Catheter Total Length (cm): 48 Catheter Internal Length (cm): 48 Catheter External Length (cm): 0 Lot Number: [id number] Number of Lumens: Double lumen Oximetric Catheter?: No Number of Needle Passes: 1 Placement: target vein identified, needle advanced into vein and blood aspirated and guidewire advanced into vein Radiologic Support with Sterile Technique: ultrasound guidance used Sterile gel and probe cover used for ultrasound?: Yes Other: X-ray ordered Outcomes/Complications: patient tolerated procedure well with no complications Estimated blood loss (mL): 1 ml PA Catheter Placed?: No Post Insertion: Post Insertion Details: all ports aspirated, all ports flushed easily, guidewire was removed, examined and appears intact and dressing was applied Site cleansed: Chlorhexidine Line secured with: Adhesive Securement Device and Tissue Adhesive Dressing applied: Gel Chlorhexidine Gluconate, Transparent and Occlusive Tip Confirmation: Other Confirmation Other: X-ray pending Tip Location: Pending Attestation: Attestation: I personally performed the procedure myself Additional Comments: Prior to insertion both guide wire and PICC Line wire inspected and found to be intact. Upon completion of procedure again both wires inspected and found to be intact (Guide wiremeasuring 50.25cm in total and completely intact). All witnessed by myself and my PICC Assist. * Jamal Retana MD - 06/25/2023 4:37 PM EDT PROCEDURE - Bone Marrow Biopsy/Aspiration - Hematology [facility] [address] Name: Farhad Franco Location: [facility] B846/A Date: 06/25/2023 Time: 4:37 PM Bone Marrow Biopsy/Aspiration: PRIOR TO PROCEDURE: Verify Correct Patient: Yes Verify Correct Site: Yes Verify Procedure Matches Verbalized Consent: Yes Verify Correct Position: Yes Availability of Necessary Equipment: Yes Other Healthcare Professional(s) Verbalize(s) Agreement with Timeout: Yes Anticoagulation / Antiplatelet: Yes - Lovenox PROCEDURE NOTE: Procedure: Bone marrow biopsy/aspiration Indication: Lymphoma, BM involvement Body Wirer/Aviation Boatswain'S Mate: Arnulfo Lowe PA-C Complication/Corrective Action: None Comments/Findings: Patient identified and verified with medical record, name, and /or . After informed consent was obtained an area was identified in the left posterior iliac crest. Usingsterile technique, the area was prepped with betadine and then infiltrated with 1% lidocaine without epinephrine. The patient specifically denied allergy to lidocaine. Only a small biopsy sample obtained. A bone marrow aspirate, biopsy, and specimens of flow cytometry and cytogenetics were easily obtained. The patient tolerated the procedure well. A pressure dressing was applied, and the patient was advised to leave this in place for 48 hours and to keep the area dry during that period. The patient was provided with written and verbal instructions. Minimal blood loss. * Dylan Sharif MD - 06/21/2023 5:46 PM EDTAssociated Order(s): EKG REASON FOR STUDY: Notify provider if obtaining EKG;Chest pain CONCLUSIONS: Normal sinus rhythm Normal ECG When compared with ECG of 20-Jun-2023 15:11, No significant change was found Ventricular Rate: 72 Atrial Rate: 72 NM Interval: 162 QRS Duration: 88 QT/QTc: 402/440 ms P-R-T Carson: 31 : 34 : 56 degrees documented in this encounter Consult Notes * Roula Robins DO - 06/29/2023 3:12 PM EDTAssociated Order(s): OPHTHALMOLOGY CONSULT IP CONSULT - Ophthalmology [facility] [address] Name: Farhad Franco Location: [facility] B846/A Date: 06/29/2023 Time: 3:12 PM Date and Time Patient was Seen: 06/29/2023 at 3:12 PM REQUESTING SERVICE: Hematology REASON FOR CONSULT: 32yoM with newly diagnosed high grade lymphoma. Please evaluate eyes for any potential lymphoma HISTORY OF PRESENT ILLNESS: Farhad is a 32 year old male. Denies any changes to the vision. No floaters, no pain, no blurred spots in the vision. Denies any episodes of redness. Nursing notes reviewed. OPHTHALMOLOGY PAST HISTORY: Cerebral Vasculitis OPHTHALMOLOGY FAMILY HISTORY: Denies CURRENT OPHTHALMIC MEDICATIONS: Denies PAST MEDICAL HISTORY: Past Medical History: Diagnosis Date Adjustment disorder with depressed mood 08/14/2009 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 Follows in [place] q6m Cerebrovascular accident (CVA) (HCC) Gastroesophageal reflux disease with esophagitis 12/18/2014 History of petit-mal seizures 03/07/2016 Migraine with aura and without status migrainosus, not intractable 12/18/2014 Tobacco use disorder 01/01/2016 PAST SURGICAL HISTORY: Past Surgical History: Procedure Laterality Date COLONOSCOPY, DIAGNOSTIC (RECTUM) 02/05/2022 normal bx / COLONOSCOPY FLEXIBLE PROXIMAL DIAGNOSTIC performed by Laurence Dent MD at [facility] EGD, FLEXIBLE, DIAGNOSTIC 02/05/2022 normal bx / ESOPHAGOGASTRODUODENOSCOPY (EGD), FLEXIBLE, TRANSORAL, DIAGNOSTIC performed by Laurence Dent MD at [facility] INFORMATION Arteriograms. IR BIOPSY 06/22/2023 NM ANESTH,OPEN HEAD SURGERY FAMILY HISTORY: No family history on file. SOCIAL HISTORY: Social History Tobacco Use Smoking status: Former Current packs/day: 0.00 Average packs/day: 2.0 packs/day for 7.2 years (14.3 ttl pk-yrs) Types: Cigarettes Start date: 05/17/2014 Quit date: 07/17/2021 Years since quittin.9 Smokeless tobacco: Never Tobacco comments: 4-5 cigs/day Vaping Use Vaping Use: Former Substance Use Topics Alcohol use: Yes Comment: rarely Drug use: No ALLERGIES: Patient has no known allergies. REVIEW OF SYSTEMS: As above, otherwise negative VISUAL EXAMINATION: Visual Acuity: Right: 20/20 Left: 20/20 Visual Acuity Checked: without correction Intraocular Pressure: Right: 18 Left: 14 Motility: Full ductions and versions Pupils: PERRL, no Relative Afferent Pupillary Defect (RAPD), and no anisocoria Visual Burch: full to count fingers both eyes Color Plates: equal credit negotiator desaturation ANTERIOR SEGMENT EXAMINATION: Adnexa/Lids: Right: no erythema and non-tender Left: no erythema and non-tender Conjunctiva/Sclera: Right: clear, no discharge Left: clear, no discharge Cornea: Right: clear Left: clear Anterior Chamber: Right: deep and quiet Left: deep and quiet Iris: Right: normal stroma Left: normal stroma Lens: Right: clear Left: clear FUNDUS EXAMINATION: Right: Dilated Left: Dilated Vitreous: Right: clear Left: clear Optic Nerve Cup to Disc Ratio: Right: No edema, no pallor Left: No edema, no pallor Right Retina: Macula: good foveal reflex, macula flat, and no heme/exudate/drusen Vessels: Normal, nevus < 1DD off arcade Periphery: Normal, no white / yellow retinal lesions Left Retina: Macula: good foveal reflex, macula flat, and no heme/exudate/drusen Vessels: Normal, nevus < 1DD off arcade Periphery: Normal, no white / yellow retinal lesions LABS: reviewed Imaging: reviewed IMPRESSION / PLAN: Eye Exam in Setting High Grade Lymphoma - no signs or orbital / intraocular involvement - discussed warning signs and symptoms with patient - has primary eye doctor he routinely follows with - no other intervention from the ophthalmology standpoint To be discussed with Dr. Mackay. Roula Robins, * Brittany Islas MD - 06/24/2023 10:03 AM EDTAssociated Order(s): HEMATOLOGY CONSULT IP CONSULT NOTE - Hematology [facility]-[address] [id number] Name: Farhad Franco Location: [facility] B846/A Date: 06/24/2023 Time: 10:04 AM REQUESTING SERVICE: Med W REASON FOR CONSULT: 32 M rapidly enlarging retroperitoneal mass with concern for lymphoma s/p IR biopsy. Appreciate input and recommendations PAST HISTORY: Past Medical History: Past Medical History: Diagnosis Date Adjustment disorder with depressed mood 08/14/2009 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 Follows in [place] q6m Cerebrovascular accident (CVA) (HCC) Gastroesophageal reflux disease with esophagitis 12/18/2014 History of petit-mal seizures 03/07/2016 Migraine with aura and without status migrainosus, not intractable 12/18/2014 Tobacco use disorder 01/01/2016 HPI: Farhad Franco is a 32 year old male with PMH of cerebral vasculitis (primary cerebral angiitis, following with Rheumatology in [place]), complicated by stroke at the age of 7, migraine with aura, nephrolithiasis, tobacco use and prior petit-mal seizures for whom Hematology was consulted for concern of enlarging para-aortic lymphoma. Patient's retroperitoneal mass was first identified on CT A/P on 06/09/23 when he presented to [facility] ER for increasing abdominal pain with CT showing heterogeneously enhancing nodular mass lesion in the left para-aortic region which is partially encasing the aorta, 5.6 x 6 cm in size. Oncology was consulted and recommended testing for Alpha fetoprotein LDH (both normal) and Beta HCG (negative) as work for testicular cancer as primary. Of note patient has a known history of nephrolithiasis and reported to have a left kidney stone which was under evaluation for lithotripsy in the near future. CT A/P in 03/2023 had not mention of a retroperitoneal mass (report only, no images available). Patient was seen in Family Practice in [place] on 06/11/23 for ER follow up and Hematology Ask-A-Doc was placed. Patient was scheduled for PET CT and Hematology appt on 06/28 [facility] CT[facility] C/A/P done on 06/19 showed interval increase in size with now [id number] mass in upper retroperitoneum. Patient was transferred to [facility] was done for expedited IR biopsy of mass which was completed on 06/21.FISH panel done on biopsied tissue shows MF42-olfquuul B cell population expressing EBV. FISH studies pending. 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 Patient reports that he has lower abdominal pain and back pain. Has been using GROUNDSKEEPING MAINTENANCE WORKER doses regularly in for pain control. REVIEW OF SYSTEMS: As per HPI and otherwise negative PHYSICAL EXAMINATION: Most Recent Vital Signs: BP: 117 mmHg/93 mmHg (06/24/23822) Pulse: 100 (06/24/23822) Temp: 36.5 C (06/24/23822) Temp Summary: Temp Min: 36.3 C (97.3 F) Max: 37.1 C (98.8 F) SpO2: 95 % (06/24/23822) O2 flow rate: 3 L/MIN (06/22/23 1230) Supplemental O2 Delivery: Room Air, None (06/24/23822) Vital Signs Last 24 Hours: Systolic BP: Most Recent Systolic BP Av.3 mmHg Min: 115 mmHg Max: 149 mmHg Temperature: Most Recent Temperature Av.7 C Min: 36.28 C Max: 37.11 C Pulse: Pulse Av.7 Min: 76 Max: 100 Respirations: Resp Av.3 Min: 14 Max: 24 SpO2: SpO2 Av.8 % Min: 94 % Max: 100 % PHYSICAL EXAM General: obese built female, in no apparent distress HEENT: Sclerae anicteric, atraumatic, normocephalic, Neck: No cervical LAD, normal JVP Cardiovascular: regular rate and regular rhythm with no audible murmurs Respiratory: clear to auscultation bilaterally Abdomen: Soft, positive tenderness to palpation in bilateral lower quadrants, non-distended, normalbowel sounds Musculoskeletal: No visible joint deformity Extremities: trace pitting lower extremity edema bilaterally Neuro: Alert, oriented x3, moves all extremities Skin: No rashes, warm, dry and intact LABS: Labs reviewed as indicated below: Laboratory Values: reviewed. -- Brief labs below include the 7 most recent results over the past week. Blood Gas: No results in the last 7 days - inpatent use only Chemistry Panel: Lab results within last 7 days (see chart for full results) Units 06/24/23 0801 06/23/23 0633 06/22/23 0731 06/21/23 0708 06/20/23 1541 06/19/23 0000 Sodium mmol/L 137 137 137 138 138 -- Potassium mmol/L 3.5 3.7 3.0* 2.9* 3.4* -- POTASSIUM-OUTSIDE LAB MMOL/L -- -- -- -- -- 3.2* Chloride mmol/L 100 99 99 100 98 -- CO2 mmol/L 25 27 25 28 24 -- EGFR-OUTSIDE LAB ML/MIN/1.73M2 -- -- -- -- -- 90 BUN mg/dL 13 9 10 10 10 -- Creatinine mg/dL 0.8 0.9 0.9 1.0 1.0 -- CREATININE-OUTSIDE LAB MG/DL -- -- -- -- -- 1.10 Estimated Glomerular Filtration Rate mL/min >90 >90 >90 >90 >90 -- Glucose mg/dL 99 97 98 107 112 -- GLUCOSE-OUTSIDE LAB MG/DL -- -- -- -- -- 97 Calcium mg/dL 9.9 10.2 9.5 9.2 9.9 -- Magnesium mg/dL 2.0 2.1 1.9 2.0 -- -- Phosphorus mg/dL 4.1 3.6 3.3 3.7 -- -- Anion Gap mmol/L 12 11 13 10 16* -- Complete Blood Count: Lab results within last 7 days (see chart for full results) Units 06/24/23 0801 06/23/23 0633 06/22/23 0731 06/21/23 0708 06/20/23 1541 06/19/23 0000 WBC K/uL 7.75 9.13 9.47 8.21 7.53 -- HGB g/dL 14.0 14.4 13.1* 13.1* 14.3 13.8* HCT % 40.6 41.8 37.2* 37.8* 40.5 -- PLT K/uL 248 257 217 222 234 -- MCV fL 84.4 85.8 85.1 84.6 83.0 -- Cardiac Studies: No results in the last 7 days - inpatent use only Coagulation Studies: Lab results within last 7 days (see chart for full results) Units 06/24/23 0801 06/23/23 0633 06/22/23 0731 06/21/23 0708 Prothrombin Time seconds 13.4 13.2 13.9 14.3 INR 1.0 1.0 1.1 1.1 Liver Function Panel: Lab results within last 7 days (see chart for full results) Units 06/20/23 1541 Albumin g/dL 4.7 Protein g/dL 7.9 Bilirubin, Total mg/dL 0.6 AST U/L 32 ALT U/L 47 Alkaline Phosphatase U/L 95 Infectious Studies: Lab results within last 7 days (see chart for full results) Units 06/20/23 1541 Lactate mmol/L 1.1 Cultures: reviewed. No results in the last 7 days - inpatent use only Recent Cultures (2 Weeks) 06/01/2023 09/11/2021 9:02 AM 11:08 AM GASTROINTESTINAL STOOL CULTURE GROWTH -- No Aeromonas species or Plesiomonas species isolated. QUANT URINE CULTURE GROWTH No significant growth -- Radiographic Studies (last 72 hours): reviewed. IR BIOPSY Result Date: 06/23/2023 IMPRESSION: CT-guided percutaneous fine needle aspiration and core biopsy of retroperitoneal mass. PLAN: Ordering clinician to follow-up results with patient. Flow cytometry: JR15-nkzxeiat B cell population expressing kappa light chains IMPRESSION: Farhad Franco is a 32 year old male with an enlarging retroperitoneal mass, first detected on imaging in 05/2023 now status post IR biopsy of mass with flow cytometry showing positive CD10 B cell population consistent with a B cell lymphoma. Differential diagnosis includes Burkitt lymphoma, and diffuse large B cell lymphoma. Patient has a history of prolonged use of immunosuppressants in the setting of cerebral angiitis for several yearswhich likely contributed to development of lymphoma. No history of HIV. 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 K and phos are within normal limits. Currently does not meet Juan F-Webb criteria for TLS though does require prophylaxis Pending return of final studies, recommend obtaining work up in anticipation of completing staging inpatient and possible inpatient chemotherapy. ASSESSMENT RECOMMENDATIONS/PLAN: Will add on EBV Quant PCR (ordered) Test for HIV, HepBSAg, HepB Ag, Core IgG and IgM and acute hepatitis panel (ordered) One time dose of rasburicase 3mg indicated for elevated uric acid(ordered) Agree with continuing allopurinol Patient will need bone marrow biopsy for staging. Will discuss with patient regarding this ECHO TTE for baseline EF prior to possible anticipation of anthracycline therapy Will also discuss fertility preservation with patient NS 100cc/hr for 24 hrs Agree with daily labs for monitoring for TLS Check BMP (for potassium and calcium, and Cr), phosphorus Associated attestation - Barron Cabello MD - 06/25/2023 10:32 AM EDT I saw and evaluated the patient 06/24/23. I have reviewed the trainee note and agree. * Pillo Jimenez MD - 06/22/2023 10:02 PM EDT CONSULT NOTE - Palliative Medicine [facility]-[address] [id number] Name: Farhad Franco Location: [facility] B325/A Date: 06/22/2023 Time: 4:03 PM REQUESTING SERVICE: General Internal Medicine REASON FOR CONSULT: We have been asked to see this patient for pain management. " 06/22/23 1120 Palliative Medicine Consult IP ONCE, Routine Complete Discontinue Comments: 32 M Hx cerebral vasculitis and stroke presents w/ rapidly increasing retroperitoneal mass - suspect malignancy. 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 with need to transition to oral regimen Provider: (Not yet assigned) Question Answer Comment Reason for Consult: Cancer Palliative Medicine To Address: Pain & Symptom Metal Baler Provider: [facility] Provider " HPI: "Farhad Franco is a 32 yo M with GERD, migraines, adjustment disorder with depressed mood, h/o petit-mal seizures, cerebral vasculitis (c/b history of stroke), HTN, asthma, nephrolithiasis, and tobacco use disorder who initially presented to [facility] on 06/20/2023 with c/o abdominal pain, and wastransferred to [facility] this evening to assess for IR biopsy in the setting of a rapidly enlarging retroperitoneal mass appreciated on CT imaging. Upon arrival to [facility], patient's T 98.8 deg F, HR 74, RR 18, BP 147/111 mmHg, and SpO2 100% on RA. Lab work showed K 3.4 without any other significant abnormalities. CTA a/p showed no acute arterial pathology, however presence of an 8 x 8 x 8 cm upper retroperitoneal lesion most suggestive of lymphoma and probably minor multilobar pneumonitis with non-obstructive L nephrolithiasis. He was give a 1 x dose Tylenol, Zofran, and Dilaudid in [facility] ED for symptom management prior to transfer. Patient received an additional Fentanyl 100 mcg x1 en route due to refractory pain symptoms. Patient was seen and examined at bedside upon arrival to [facility]. He is accompanied by his parents, whoreport that patient often times has trouble communicating and relaying information as a result of his prior stroke. His parents state that he has been experiencing intermittent pain symptoms across the lower abdomen and into the back for about one year now which was attributed primarily to kidney st ones. Over the past 9 days, he has been experiencing a significant increase in this pain, and when his family went to see him earlier in the day they found him lying on the floor crying. They broughthim into the ED because of this. They state that they knew there was a mass previously (first diagnosed in 05/2023) and he was to get a PET scan and biopsy outpatient, however it has markedly increased in size since his last imaging was done. His parents report that he does have a history of cerebral vasculitis with prior stroke, and he was on a number of immunomodulating medications in the past including Cellcept, Cytoxan, and Methotrexate from 1997 through 2014, and then in 2014 these medications were discontinued altogether as his vasculitis remained stable. Patient states that presently his pain is around 6/10 severity, and describes it as a sharp pain mostly across the lower abdomen. Patient and family report about a 26 lb weight loss over the past month. He has been more nauseated and constipated. He has also been experiencing poor PO intake as a result of nausea and reduced appetite, and states that he will often times only eat soup. He has had one episode of emesis this week but reports feeling nauseated frequently. Patient and family deny anyurinary symptoms or hematuria. He reports feeling warm "on and off" but denies any night sweats. Hereports some chest discomfort when straining to have a BM; but states that it is difficult for him to say if he is more constipated than usual. He and his family attributed his less frequent bowel movements to his poor PO intake. Patient wishes to remain Full Code this admission. " This note was copy/pasted from Dr. Solitario, dated 06/19 PALLIATIVE ENCOUNTER FROM TODAY'S VISIT: 06/22/2023 very pleasant gentleman, had just returned from Interventional Radiology, still under the effects of fentanyl and midazolam. He was able to recount to me that he had been suffering from worsening back pain radiating to lower abdomen, though sometimes it feels like they are 2 separate pains, both are described as achy to sharp, persistent, 6 to 10/10, limited analgesic benefit with oxycodone/APAP, hydromorphone and initial doses of morphine. 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 There has been partial relief only with bolus doses that were administered. He does not endorse any associated shortness of breath, nausea, vomiting. It is difficult to conduct a a formal and complete review of systems due to his significant somnolence at time of my visit. His mother does recount significant challenges in his health care following his diagnosed ischemic stroke at the age of 7, with a subsequent development of seizure disorder and need for management ofcerebral vasculitis with use of immunosuppressant drugs, initially requiring Cytoxan and subsequently CellCept. Last dose was and 2014. FUNCTIONALITY: 40% - Ambulation: Mainly in bed, Unable to do most activity / Extensive disease. Self-care: Mainly assistance. Intake: Normal or reduced. Conscious level: Full or drowsy +/- confusion. ADVANCED DIRECTIVES AND [place] ORDERS FOR LIFE-SUSTAINING TREATMENT: Patient has not completed PAST MEDICAL HISTORY: Past Medical History: Diagnosis Date Adjustment disorder with depressed mood 08/14/2009 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 Follows in [place] q6m Cerebrovascular accident (CVA) (HCC) Gastroesophageal reflux disease with esophagitis 12/18/2014 History of petit-mal seizures 03/07/2016 Migraine with aura and without status migrainosus, not intractable 12/18/2014 Tobacco use disorder 01/01/2016 PAST SURGICAL HISTORY: Past Surgical History: Procedure Laterality Date COLONOSCOPY, DIAGNOSTIC (RECTUM) 02/05/2022 normal bx / COLONOSCOPY FLEXIBLE PROXIMAL DIAGNOSTIC performed by Laurence Dent MD at [facility] EGD, FLEXIBLE, DIAGNOSTIC 02/05/2022 normal bx / ESOPHAGOGASTRODUODENOSCOPY (EGD), FLEXIBLE, TRANSORAL, DIAGNOSTIC performed by Laurence Dent MD at [facility] INFORMATION Arteriograms. NM ANESTH,OPEN HEAD SURGERY FAMILY HISTORY: No family history on file. SOCIAL HISTORY: Social History Tobacco Use Smoking status: Former Current packs/day: 0.00 Average packs/day: 2.0 packs/day for 7.2 years (14.3 ttl pk-yrs) Types: Cigarettes Start date: 05/17/2014 Quit date: 07/17/2021 Years since quittin.9 Smokeless tobacco: Never Tobacco comments: 4-5 cigs/day Vaping Use Vaping Use: Former Substance Use Topics Alcohol use: Yes Comment: rarely Drug use: No Family Support: Significant Other: Secondary and Parent: Primary PSYCHOSOCIAL ASSESSMENT: At times, I worry I will be a burden to my family: Unknown Pertinent Social Factors: Patient lives with his 4-year-old son in his own home. Mother lives closeby, as well as his significant other who has been helping out. Patient's stepfather also has been assisting financially with his care. Both patient and mother [facility] the [facility]'s uncle pre resides as institutional cook. ALLERGIES: Patient has no known allergies. PHYSICAL EXAMINATION: Most Recent Vital Signs: BP: 148 mmHg/98 mmHg (06/22/232199) Pulse: 77 (06/22/232199) Temp: 36.72 C (06/22/232199) Temp Summary: Temp Min: 36.2 C (97.2 F) Max: 37.4 C (99.3 F) SpO2: 99 % (06/22/232199) O2 flow rate: 3 L/MIN (06/22/23 1230) Supplemental O2 Delivery: Room Air, None (06/22/232199) Vital Signs Last 24 Hours: Systolic BP: Most Recent Systolic BP Av mmHg Min: 140 mmHg Max: 188 mmHg Temperature: Most Recent Temperature Av.8 C Min: 36.22 C Max: 37.39 C Pulse: Pulse Av.4 Min: 57 Max: 96 Respirations: Resp Av.5 Min: 14 Max: 20 SpO2: SpO2 Av.4 % Min: 94 % Max: 100 % Body mass index is 36.54 kg/m. Constitutional: no acute distress, (+) chronically ill, obese, pleasant and cooperative, breathing ambient air with no difficulties HENT: normocephalic, no adenopathy, atraumatic; no masses or tenderness. No thrush or oropharyngeallesions. Mucus membranes moist Eyes: anicteric, Sclera and conjunctiva normal and conjugate gaze, no eye discharge Neck: supple, no stridor and no adenopathy CV: regular rate and rhythm, no murmur, gallops or rub Chest: normal respiratory effort, no wheezing, or crackles Abdominal: soft, normal bowel sounds, no mass, tenderness to deep palpation throughout abdomen and non-distended Extremities: no edema, no clubbing, no cyanosis, good peripheral pulses Musculoskeletal: (+) lower back pain, no CVA tenderness Skin: warm, dry, intact: Neuro: alert, oriented to person, place, and time Psych: euphoric mood and affect appropriate to context LABS REVIEWED: yes, reviewed Latest Reference Range & Units 06/22/23 07:31 Sodium 135 - 146 mmol/L 137 Potassium 3.5 - 5.1 mmol/L 3.0 (L) Chloride 98 - 107 mmol/L 99 CO2 22 - 32 mmol/L 25 BUN 6 - 20 mg/dL 10 Creatinine 0.6 - 1.2 mg/dL 0.9 Estimated Glomerular Filtration Rate >=60 mL/min >90 Anion Gap 7 - 15 mmol/L 13 Glucose 70 - 120 mg/dL 98 Calcium 8.4 - 10.2 mg/dL 9.5 Magnesium 1.5 - 2.6 mg/dL 1.9 Phosphorus 2.5 - 4.8 mg/dL 3.3 INR 0.8 - 1.2 1.1 Prothrombin Time 11.6 - 15.2 seconds 13.9 CBC Rpt ! WBC 4.00 - 10.80 K/uL 9.47 RBC 4.50 - 5.25 M/uL 4.37 HGB 14.0 - 16.8 g/dL 13.1 (L) HCT 40.0 - 48.4 % 37.2 (L) MCV 82.0 - 99.5 fL 85.1 MCH 27.0 - 34.0 pg 30.0 MCHC 32.0 - 36.0 g/dL 35.2 RDW 11.5 - 15.5 % 12.2 PLT 140 - 400 K/uL 217 MPV 6.6 - 11.1 fL 10.0 (L): Data is abnormally low !: Data is abnormal Rpt: View report in Results Review for more information IMAGING REVIEWED: yes, reviewed PROCEDURE INFORMATION: Exam: CTA Chest Without And With Contrast CTA Abdomen Without And With Contrast Exam date and time: 06/20/2023 16:10 Age: 32 years old Clinical indication: Other: Pain; Additional info: Severe lower abdominal pain, intermittent epigastric pain, scan from April does not show mass that was seen on scan at the end of May, HX vasculitis, concern for aortic pathology TECHNIQUE: Imaging protocol: Computed tomographic angiography of the chest without and with contrast. Exam focused on the arteries. Computed tomographic angiography of the abdomen without and with contrast, including non-contrast images if performed. Exam focused on the arteries. 3D rendering (Not supervised by radiologist): MIP and/or 3D reconstructed images were created x the technologist. Radiation optimization: All CT scans at this facility use at least one of these dose optimization techniques: automated exposure control; mA and/or kV adjustment per patient size (includes targeted exams where dose is matched to clinical indication); or iterative reconstruction. Contrast material: ISOVUE 370; Contrast volume: 80 ml; Contrast route: INTRAVENOUS (IV); COMPARISON: DX XR ABDOMEN 1 VIEW 05/21/2023 14:16 FINDINGS: VASCULATURE: Pulmonary arteries: Normal. No pulmonary emboli. Aorta: Patent with no aneurysm or dissection. Celiac trunk and mesenteric arteries: Patent surrounded by material described below. Pattern characteristic of lymphoma Renal arteries: 8 x 8 x 8 cm intermediate density material in the upper retroperitoneum surrounding SMA, celiac trunk, portions of aorta, nytn-uovfjai-hniy-right renal arteries and veins. Renal arteries are widely patent. CHEST: Lungs: Minimal scattered lingular and bilateral lower lobe ground-glass opacities. No airspace consolidation. Pleural spaces: Unremarkable. No pneumothorax. No pleural effusion. Heart: Unremarkable. No cardiomegaly. No pericardial effusion. ABDOMEN AND PELVIS: Liver: No mass. Gallbladder and bile ducts: Unremarkable. No calcified stones. No ductal dilation. Pancreas: Unremarkable. No mass. No ductal dilation. Spleen: Unremarkable. No splenomegaly. Adrenal glands: Unremarkable. No mass. Kidneys and ureters: Subcentimeter obstructive left nephrolithiasis. Stomach and bowel: Submucosal fat deposition in the colon, likely habitus and or diet related. No colitis or diverticular disease. No focal pathology in the small bowel. Intraperitoneal space: Unremarkable. No free air. No significant fluid collection. Retroperitoneal space: The retroperitoneal lesion is new since prior as previously partially imaged. Lymph nodes: Unremarkable. No enlarged lymph nodes. Bones/joints: Incomplete L5 pars defects without listhesis. No acute fracture or subluxation. Soft tissues: Unremarkable. IMPRESSION IMPRESSION: 1. No acute arterial pathology. 2. 8 x 8 x 8 cm upper retroperitoneal lesion, most suggestive of lymphoma. 3. Probable minor multilobar pneumonitis. 4. Nonobstructive left nephrolithiasis. THIS DOCUMENT HAS BEEN ELECTRONICALLY SIGNED BY ANUP NO MD Specimen Collected: 06/20/23 16:10 Last Resulted: 06/20/23 18:07 ASSESSMENT/PLAN: Farhad Franco is a/an 32 year old male referred for consultation to Palliative Medicine with theprimary diagnosis of: Longstanding history of cerebral vasculitis, stroke ischemic at age of 7, subsequent development of fatigue mouth seizures, presenting with new onset back pain and weight loss with large retroperitoneal mass suggestive of lymphoma. Secondary Diagnoses are: GERD, migraine headaches, adjustment disorder with depressed mood, nephrolithiasis, tobacco use disorder, hypertension, bronchial asthma, obesity class 2, possible undiagnosed obstructive sleep apnea Neoplasm related pain: Most likely related to lymphoma that has been progressing. If proven by biopsy, patient would be eligible for treatment that may result in significant tumor reduction in a short period of time. Favor at this point initiation of micro dosing with buprenorphine to minimize the risk of respiratory depression inpatient with possible sleep apnea, as well as bronchial asthma. 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 Opiate induced constipation: Keeping Senokot 2 tablets by mouth twice daily and adding as needed PEG 3350 would be recommended. Explained relationship with opioid associated slowing of the gut to mother. Palliative Care/goals of care: Desire is now to proceed with disease directed therapies. Patient initially was negative about pursuing diagnostic testing, but given likelihood of lymphoma being the diagnosis, this would be potentially very amenable to treatment. I introduced Palliative Care services to both patient and mom, and provided emotional support via reflective listening and empathetic eng agement. We appreciate your consult request and the opportunity to assist in the care of your patient. Please do not hesitate to call or page with additional questions or concerns. We will always try to remain available. * Melanie De La Rosa RDN - 06/22/2023 2:54 PM EDT CLINICAL NUTRITION CONSULT/PROGRESS NOTE [address] [address] Name: Farhad rFanco Location: [facility] B325/A Date: 06/22/2023 Time: 2:54 PM How patient was identified (select 2): Medical record number and Name Discussed in interdisciplinary rounds: No Farhad Franco is a 32 year old male being seen for reduced dietary intake and significant unintentional weight loss. Primary Diagnosis: Retroperitoneal mass. Other pertinent information: The pt was not eating well prior to admission. The pt reported having nausea with some vomiting. Often only consuming soup. Abdominal pain noted prior to admission. Also reported being constipated. Last bowel movement was prior to admission. No known food allergies. NUTRITION ASSESSMENT: Past medical/surgical history and medications reviewed. Food/Nutrition-Related History Diet: Regular Previously followed diet: Regular Food Allergies/Intolerances: None Adult Energy Intake: Less than 75% of estimated energy requirement for greater than 1 month (moderate/severe, chronic illness). Oral Nutrition Supplement (ONS): None Pertinent medications/vitamins/minerals/supplements: Morphine (GROUNDSKEEPING MAINTENANCE WORKER), Potassium Chloride (40 mEq), Senokot Pertinent Biochemical Data: Latest Reference Range & Units 06/20/23 15:41 06/21/23 07:08 06/22/23 07:31 Potassium 3.5 - 5.1 mmol/L 3.4 (L) 2.9 (L) 3.0 (L) - hypokalemia, supplemented Nutrition-Focused Physical Findings: Appearance: Obese Respiratory support: Supplemental O2 Delivery: Room Air, None Nasal/Oral: No issues identified Digestive: Abdominal pain/tenderness and Appetite poor Cognition: Awake, alert Skin: Intact Nutrition Focused Physical Exam: NFPE unable to be completed at time of visit, will complete at follow up. Anthropometrics Measurements Height: 180.3 cm (5' 11") (06/20/232200) Admission weight: 118.8 kg Weight: 118.8 kg (262 lb) (06/20/232200) BMI: 36.56 (06/20/232200) Usual Body Weight: 124-127 kg [place] weight: 81 kg [place] Weight Based on BMI: 24.9 Adjusted ideal weight: 90.4 kg - adjusted for obesity Interpretation of Weight Change Prior to Admission: Greater than 5% weight loss in 1 month (Severe)- 7% loss over past month (May 2023 127 kg) Nutrition Prescription: Energy needs: 20-25 Kcal/kg Kcal/day: 2102-5158 Based on admission weight (118.8 kg) Protein needs: 1.0-1.2 gm/kg Protein: 81-97 Based on [place] weight (81 kg) Fluid needs: 1 ml/1 kcal ml/kg Fluid: 9353-3385 ml/day Based on admission weight (118.8 kg) Malnutrition: Malnutrition Present: Yes (06/22/231515) Adult Malnutrition Classification: Severe (06/22/231515) Malnutrition Characteristics: Weight loss;Inadequate energy intake (06/22/231515) NUTRITION DIAGNOSIS: Malnutrition severe related to acute illness or injury as evidenced by patient consuming less than 75% of estimated energy requirements x 1 month and greater than 5% weight loss x 1 month. Goals: Patient will consume 75% estimated nutrient needs within 3-5 days. NUTRITION INTERVENTION/PLAN: Continue current care plan Clinical Nutrition Recommendations: Diet: Continue current nutrition plan NUTRITION MONITORING AND EVALUATION: Nursing documentation flowsheets for percent meal intake Lab values warranting change with MNT Weight for trends Plan follow-up: Will follow and adjust nutrition plan of care as medical condition requires. Please contact for change(s) in patient condition requiring earlier intervention. Melanie De La Rosa RDN, IRISN Clinical Nutrition Services Phone: [phone] Formerly Named [facility] documented in this encounter Nursing Notes * Mirna Gutierrez RN - 07/07/2023 1:24 PM EDT VAT: Order for PICC line to be discontinued at this time. Process explained to patient. On removal,48___ cm PICC removed which was also total length documented on insertion. Pressure held until hemostasis occurred. Occlusive gauze dressing with antibiotic ointment applied. Instructed to keep site clean and dry for 48 hours or until previous insertion site is dry. 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 Wasted 32.5mL of residual from previous bag with Katy Og RN. * Laurel Gill RN - 06/22/2023 1:02 PM EDT SBAR FOR POST INTERVENTIONAL RADIOLOGY PROCEDURE Patient Name: Farhad Franco Age:[age] year old Sending to: BP3 Procedure: CT Guided Retroperitoneal Mass Biopsy Medications Administered: yes: 200 mcg Fentanyl Special Instructions: no Concerns: no Report from: Laurel Phone extension: [phone] Patient sent via: Bed Reason for SBAR handoff: Transfer Patient meets discharge criteria for Interventional Radiology. Vital signs stable. Dressing clean, dry, and intact. Patient awake and oriented to pre procedure baseline. Patient with no nausea/vomiting. All belongings sent with patient. Vital Signs: BP: 155/94 (06/22/231299) Temp: 36.2 C (97.2 F) (06/22/231299) Pulse: 82 (06/22/231299) Resp: 18 (06/22/231299) SpO2: 98 % (06/22/231299) Weight: 118.8 kg (262 lb) (06/20/232200) Height: 180.3 cm (5' 11") (06/20/232200) Neurological: [place]ha Coma Scale Eyes Open: Spontaneous (06/22/231299) Best Verbal Response: Verbally appropriate for age (06/22/231299) Best Motor Response: Obeys commands appropriate for age (06/22/231299) Coma Score: 15 (06/22/231299) Activity: Four Extremities LOC: Fully Awake or Pre-Anesthetic Level of Consciousness BP: Less than (+/-) 20% Resp: Deep Breathe and Cough Freely (06/21 1254) Respiratory: Pain Assessment Flowsheet Row Most Recent Value [facility]-10 Pain Score 0 (no pain) FLACC Total 0 PAINAD Total 0 Lines: Peripheral Line Lower;Right Arm 22 Gauge (Active) Status Fluids infusing 06/22/23799 Tubing Changed No 06/22/23799 Phlebitis Scale 0 06/22/23799 Infiltration Scale 0 06/22/23799 Site Description (Other) Without redness, swelling or drainage 06/22/23799 Site Intervention None required 06/22/23799 Dressing Assessment Dressing clean, dry, and intact 06/22/23799 Dressing Intervention None required 06/22/23799 Number of days: 1 * Laurel Gill RN - 06/22/2023 11:00 AM EDT district wildlife manager note Name: Farhad Franco Procedure: CT Guided Retroperitoneal Mass Biopsy Patient ID band checked using two identifiers. Patient placed on procedure table in the prone position with comfort measures intact and safety strap in place. Hemodynamic monitoring placed. Patient denies any complaints at current time. RT staff preparing patient for procedure. Transmission Rebuilder imaging obtained. 11:03 AM 50 mcg Fentanyl administered. 11:31 AM 50 mcg Fentanyl administered. 11:35 AM Attempted x [address] peripheral 20G IV and was unsuccessful. IV team paged for assistance. 11:48 AM IV placed by IV team. 11:[address] imaging obtained. 11:57 AM Report given to RYLAN Jansen. district wildlife manager note 11:57 AM Report received from RYLAN Barragan. Site marked by Dr. Janice Drew. 11:59 AM Timeout performed by Dr. Janice Drew. 12:05 PM Procedure started by Dr. Janice Drew and Andrea, RT. 1% buffered lidocaine given at left back site. 50 mcg of Fentanyl given per order of physician. Order was verbalized and verified with Dr. Janice Drew prior to administration. 12:08 PM Needle being placed under CT fluoroscopy guidance. 12:[address] imaging with contrast obtained. 12:29 PM 50 mcg of Fentanyl given per order of physician. Order was verbalized and verified with Dr. Janice Drew prior to administration. 12:30 PM Biopsy obtained and given to cytology fellow. 12:31 PM Biopsy obtained and given to cytology fellow. Report given to RYLAN Barragan. 12:39 PM Biopsy obtained and given to cytology fellow. 12:41 PM Biopsy obtained and given to cytology fellow. 12:43 PM Biopsy obtained and given to cytology fellow. 12:47 PM Biopsy obtained and given to cytology fellow. 12:50 PM Access removed and manual pressure to site. 12:51 PM Hemostasis obtained. Area cleaned. Gauze and tegaderm dressing applied. All specimens taken by Padmini Key cytology fellow. All wires, catheters, sheaths and other devices have been inspected prior to the procedure for damage. This has been confirmed by the scrubbed RT and the operating physician. All items not intended to remain in the patient have been inspected, accounted for and have been removed from the patient atthe end of the procedure. This has been confirmed by the scrubbed RT and the operating physician. Pt did not receive conscious sedation. Total Medications Fentanyl: 200 mcg 1% buffered lidocaine: 10 mL Please see doctor's operative note for additional details. * Mago Samuel RN - 06/22/2023 8:49 AM EDT INPATIENT TO INTERVENTIONAL RADIOLOGY (IR) HANDOFF COMMUNICATION NOTE [facility] [address] [facility] [id number] Name: Farhad Franco Age: [age] year old Location: [facility] B325/A Date: 06/22/2023 Safety Concerns: None Allergies: Patient has no known allergies. Contrast Dye Allergy? no Allergy prepped? N/A Code Status: Full Code Isolation: none Report from: Mago Samuel RN at phone extension [phone] Patient arriving via: Bed Reason for SBAR handoff: Procedure Patient is alert and oriented and able to sign consent (if not, contact center team lead and number): Yes Patient NPO: yes Patient NPO since: 2400 Patient wears CPAP, BiPAP, or oxygen overnight: no Patient has difficulty breathing when lying flat? no Emotional/Personal Anxiety? 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 Problem list: Principal Problem: Retroperitoneal mass Active Problems: Adjustment disorder with depressed mood Gastroesophageal reflux disease with esophagitis Tobacco use disorder History of petit-mal seizures Cerebral vasculitis HTN, goal below 140/90 Kidney stones Hypokalemia Resolved Problems: * No resolved hospital problems. * Level of Care: Med Surg [3] Vital Signs: BP: 145/101 (06/22/23599) Temp: 37.3 C (99.1 F) (06/22/23599) Pulse: 73 (06/22/23599) Resp: 18 (06/22/23599) SpO2: 98 % (06/22/23599) Weight: 118.8 kg (262 lb) (06/20/232200) Height: 180.3 cm (5' 11") (06/20/232200) Labs: Please see Lab Flowsheet for lab values. Lab comments: no Lines: Peripheral Line Lower;Right Arm 22 Gauge (Active) Status Fluids infusing 06/22/23799 Tubing Changed No 06/22/23799 Phlebitis Scale 0 06/22/23799 Infiltration Scale 0 06/22/23799 Site Description (Other) Without redness, swelling or drainage 06/22/23799 Site Intervention None required 06/22/23799 Dressing Assessment Dressing clean, dry, and intact 06/22/23799 Dressing Intervention None required 06/22/23799 Number of days: 1 Fall Scale: Fall Score: 45 (06/22/23799) Fall Interventions: Bed at low level;Non-skid foot covering on;Floor free of clutter;Walk path freeof obstacles (06/22/23799) Neurological: [place] Coma Scale Eyes Open: Spontaneous (06/22/23799) Best Verbal Response: Verbally appropriate for age (06/22/23799) Best Motor Response: Obeys commands appropriate for age (06/22/23799) Coma Score: 15 (06/22/23799) Additional Neurological Information: no Respiratory: Respiratory WNL: WNL- within normal limits (06/22/23799) Depth/Rhythm: Regular (06/21/23699) Dyspnea Occurance: None (06/21/23699) Effort: Unlabored (06/22/23799) Oxygen therapy/ Mechanical vent Supplemental O2 Delivery: Room Air, None (06/22/23599) Additional Respiratory Information: no Cardiac: Cardiovascular WNL: WNL - within normal limits (06/22/23799) Rhythm: NSR (06/22/2399) NM interval: 0.17 seconds (06/22/2399) QRS: 0.08 seconds (06/22/2399) Additional Cardiac Information: no GI/: GI WNL: X - Exceptions to WNL as documented below (06/22/23799) Abdomen: Tender (06/22/23799) Additional GI/ Information: no Integumentary: Integumentary WNL: WNL - within normal limits (06/22/23799) Tacho Score (auto-calculation): 22 (06/22/23799) Skin Breakdown (including Red, Non-Blanchable Areas) Present on Admission?: No (06/20/232200) Additional Integumentary Information: no Restraints: No orders of the defined types were placed in this encounter. * Benita Calvillo RN - 06/20/2023 11:40 PM EDT Dual Licensed Skin Assessment completed by Diya Bryant RN and Benita Hernandez RN. The patient is/has a N/A Skin Breakdown (includes non blanchable erythema): No documented in this encounter Miscellaneous Notes * Ancillary Progress Note - Marina Hernandez LSW - 07/07/2023 8:48 AM EDT CARE MANAGEMENT - ADULT DISCHARGE NOTE [facility]-[address] [address] Name: Farhad Franco Location: [facility] B846/A Date: 07/07/2023 Time: 8:48 AM The following coordination of care and discharge plan has been coordinated with the care team, patient, family and/or caregiver according to the patients needs and preferences. Discharge Discharge Second Notice Important Message from Medicare delivered: Not Applicable (07/07/23846) Was Caregiver/Family/Facility contacted regarding discharge: Yes (07/07/23846) Discharge Transportation: Family/Friends drive (07/07/23846) Date of scheduled discharge transportation: 07/08/23 (07/07/23846) Final Discharge Plan (Complete only at time of Discharge): Home - Self Care (07/07/23846) Narrative: Per service, anticipate dc tomorrow. GL aware of DC and follow up arranged. Service confirmed PICC to be removed and port outpatient. Pt will return home with family assist. Pt's family is providing transportation home. Pt declined any DC needs including HC. No other skilled needs identified. Please contact CM if any changes to d/c plans. Per service, chemo ended last night and able to DC today. [facility] made aware. Please contact CM if any changes to d/c plans. * Care Plan - Anne Daniel RN - 07/06/2023 10:16 PM EDT Clinical Goal(s): Patient will report pain to nursing staff (07/06/23 3454) Possible barriers to meeting goal(s)/advancing plan of care: none Stability of the patient: Moderately stable - low risk of patient condition declining or worsening Summary regarding today's goal(s): Met: patient reported any pain he had to staff Recommendations: continue assessing pain and administering pain medication as needed * Care Plan - Saira Ahn RN - 07/05/2023 9:22 PM EDT Clinical Goal(s): pt will report pain above comfort level (07/05/23 0900) Possible barriers to meeting goal(s)/advancing plan of care: pain control Stability of the patient: Moderately stable - low risk of patient condition declining or worsening Summary regarding today's goal(s): Met: Patient reported pain and requested medication appropriately. Recommendations: Continue to monitor. * Care Plan - Saira Ahn RN - 07/04/2023 10:58 PM EDT Clinical Goal(s): pt will take shower (07/04/23 1000) Possible barriers to meeting goal(s)/advancing plan of care: fatigue Stability of the patient: Moderately stable - low risk of patient condition declining or worsening Summary regarding today's goal(s): Met: Patient showered today. Recommendations: Continue to monitor. * Care Plan - Saira Ahn RN - 07/03/2023 10:44 PM EDT Clinical Goal(s): the patient will report pain to nursing staff (07/03/23 0945) Possible barriers to meeting goal(s)/advancing plan of care: pain control Stability of the patient: Moderately stable - low risk of patient condition declining or worsening Summary regarding today's goal(s): Met: Patient reported pain appropriately. Recommendations: Continue to monitor. * Ancillary Progress Note - Marina Hernandez LSW - 07/03/2023 11:18 AM EDT CARE MANAGEMENT - ADULT TRANSITION NOTE [facility] [address] Name: Farhad Franco Location: [facility] B846/A Date: 07/03/2023 Time: 11:18 AM Risk Stratification Risk Stratification Psycho Social / Medical Concerns Identified: Adjustment to illness/injury (06/22/23899) Accessed [facility] to connect patients to social care resources: No (06/22/23899) Readmission Risk Score: 22.26 (07/03/23799) AM-PAC Score With Stairs : 24 (07/02/232012) Caregiver Information Patient Contacts Name Relation Home Work Mobile Trixie Bashir Mother [phone] Transition of Care Checklist Narrative: SW met with Pt and mother for a supportive visit. Pt and mother reported of no questions, needs, or concerns. SW discussed d/c planning. Pt plans to return home with family and friend support once medically cleared and anticipate no needs at this time. Mother declined the need for HC. SWencouraged if the Pt or family has any questions, needs, or concerns to contact . 214- SW made aware Pt and family requesting for handicap placard. Application completed and signed by medical team. Pt's mother has completed form. Anticipated Transportation at Discharge: family Patient/Family Expectations: home Transition Planning Transition Planning Transition Plan/Considerations: Needs uncertain at this time - Continue monitoring for needs (06/22/23899) Additional Considerations: NA Care Management will continue to monitor and assist with discharge planning needs * Care Plan - Gracie Juan RN - 07/02/2023 10:37 PM EDT Clinical Goal(s): patient will receive chemotherapy (07/02/23 0915) Possible barriers to meeting goal(s)/advancing plan of care: disease process Stability of the patient: Moderately stable - low risk of patient condition declining or worsening Summary regarding today's goal(s): Met: patient tolerated chemotherapy today Recommendations: call shafer in reach and hourly rounding * Ancillary Progress Note - Marina Hernandez LSW - 07/02/2023 10:26 AM EDT CARE MANAGEMENT - ADULT TRANSITION NOTE [facility] [address] Name: Farhad Franco Location: [facility] B846/A Date: 07/02/2023 Time: 10:26 AM Risk Stratification Risk Stratification Psycho Social / Medical Concerns Identified: Adjustment to illness/injury (06/22/23 0900) Accessed [employer] to connect patients to social care resources: No (06/22/23 09) Readmission Risk Score: 19.69 (07/02/23 0800) AM-PAC Score With Stairs : 24 (07/01/23 2140) Caregiver Information Patient Contacts Name Relation Home Work Mobile Trixie Bashir Mother [phone] Transition of Care Checklist Narrative: Per Service, Pt is not medically ready and will be here through the weekend. Pt to [facility] (5 days total). SW will continue to follow along and provide support with d/c planning. Anticipated Transportation at Discharge: family Patient/Family Expectations: home Transition Planning Transition Planning Transition Plan/Considerations: Needs uncertain at this time - Continue monitoring for needs (06/22/23 0900) Additional Considerations: NA Care Management will continue to monitor and assist with discharge planning needs * ACP (Advance Care Planning) - Anne-Marie Byrd LCSW - 07/02/2023 9:38 AM EDT Images from the original note were not included. Advance Care Planning Patient-centered Communication 07/02/2023 The patient/surrogate voluntarily agreed to participate in advance care planning discussion. Location: [facility] Individual(s) present for conversation: Patient and Mother Decisions Additional Comments Synopsis [employer]Link Most Recent Value Past ~10 years 07/02/2023 10:39 Additional Comments Additional Comments: I introduced self, [employer] and my role to assist patients in consideringnaming a health care agent (surrogate decision maker) should a sudden event (car accident, etc.) leave them unable to make their own medical decisions. Farhad and his mom, Anne-Marie, (at beside) were open to this conversation and allowed me to provide information on the Durable Health Care Power of Underwater Photographer, the [place] Law/hierarchy of decision makers if no Advance Directive exists,and learn more about nez perce of support. Upon reviewing the characteristics of a health care agent (Choosing a Healthcare Agent card reviewed and left), Farhad shares that preference would be his Mom as Health Care Woven Paper Hat Mender. Farhad is SINGLE, HAS ONE CHILD (4 YEARS OLD) and we discussed that [place] Law would dictate that his parents would be his surrogate decision makers in lieu of having an Advance Directive on file. I provided [employer] brochure and my business card and encouraged reaching out to me directly when ready to complete document (if assistance is desired) or if help is needed to provide copy ofcompleted document to electronic health record (written Document Instructions provided). 07/02/2023 I introduced self, [employer] and my role to assist patients in considering naming a health care agent (surrogate decision maker) should a sudden event (car accident, etc.) leave them unable to make their own medical decisions. Farhad and his mom, Anne-Marie, (at beside) were open to this c onversation and allowed me to provide information on the Durable Health Care Power of Underwater Photographer, the[place] Law/hierarchy of decision makers if no Advance Directive exists,and learn more about nez perce of support. Upon reviewing the characteristics of a health care agent (Choosing a Healthcare Agent card r eviewed and left), Farhad shares that preference would be his Mom as Health Care Woven Paper Hat Mender. Farhad is SINGLE, HAS ONE CHILD (4 YEARS OLD) and we discussed that [place] Law would dictate that his parents would be his surrogate decision makers in lieu of having an Advance Directive on file. I provided [employer] brochure and my business card and encouraged reaching out to me directly when ready to complete document (if assistance is desired) or if help is needed to provide copy of completed document to electronic health record (written Document Instructions provided). Discerning What Matters Most to the Patient: Source: Content from Respecting Choices Program Aligning Care With What Matters Most: No data to display Rationale for Decisions Source: Content from Respecting Choices Program 11 minutes spent in direct [id number] discussion today. Anne-Marie Byrd LCSW * Care Plan - Cassia Camara RN - 07/01/2023 8:26 PM EDT Problem: Pain & Impaired Comfort Goal: Patient's pain & discomfort is manageable. Outcome: Progressing Problem: Risk for Impaired Physical Mobility Goal: Patient will maintain optimal mobility level. Outcome: Progressing Problem: Potential Activity Intolerance Goal: Patient will maintain optimal activity level. Outcome: Progressing Clinical Goal(s): Patient will have adequate pain control. (07/01/232019) Possible barriers to meeting goal(s)/advancing plan of care: present condition. Stability of the patient: Moderately stable - low risk of patient condition declining or worsening Summary regarding today's goal(s): Met: Pt with adequate pain control. Recommendations: Continue pain control and POC. * Care Plan - Nano Cochran RN - 06/30/2023 8:36 PM EDT Clinical Goal(s): Patient will toelrate chemotherapy (06/30/23 0850) Possible barriers to meeting goal(s)/advancing plan of care: There is a risk of side effects of chemotherapy. Stability of the patient: Moderately stable - low risk of patient condition declining or worsening Summary regarding today's goal(s): Met: Patient is tolerating chemotherapy and reported no s/s. Recommendations: Continue plan of care. Monitor for side effects of chemotherapy. * Ancillary Progress Note - Maureen Ortega MSW - 06/30/2023 2:00 PM EDT CARE MANAGEMENT - ADULT TRANSITION NOTE [facility]-[address] [address] Name: Farhad Franco Location: [place] [address]/A Date: 06/30/2023 Time: 2:00 PM Risk Stratification Risk Stratification Psycho Social / Medical Concerns Identified: Adjustment to illness/injury (06/22/23899) Accessed Ne[employer] to connect patients to social care resources: No (06/22/23899) Readmission Risk Score: 25.74 (06/30/23 1200) AM-PAC Score With Stairs : 23 (06/30/23 0850) Caregiver Information Patient Contacts Name Relation Home Work Mobile Trixie Bashir Mother [phone] Transition of Care Checklist Narrative: SW was contacted by [facility] Nurse Navigator with outpatient Palliative Medicine to ask if Ptwould prefer to follow them outpatient at [facility] in [place] or [facility] in [place]. ERNST informed SW that Pt wished to follow up in [place]; SW informed the [facility] Nurse Navigator. CM will continue to address evolving needs, aid in discharge planning, and provide psychosocial support. Anticipated Transportation at Discharge: family Patient/Family Expectations: home w/ OP follow up Transition Planning Transition Planning Transition Plan/Considerations: Needs uncertain at this time - Continue monitoring for needs (06/22/23899) Additional Considerations: Care Management will continue to monitor and assist with discharge planning needs * Ancillary Progress Note - Krystyna Nguyen RDN - 06/30/2023 10:30 AM EDT CLINICAL NUTRITION PROGRESS NOTE [facility] [address] Name: Farhad Franco Location: [facility] B846/A Date: 06/30/2023 Time: 12:21 PM How patient was identified (select 2): date and Name Discussed in interdisciplinary rounds: Yes Farhad Franco is a 32 year old male being seen for follow-up Primary Diagnosis: 32 year old male was admitted on 06/20/2023 and presents with a abdominal pain 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 Other pertinent information: The patient and his mother were present during the interview today. The patient reports that his appetite has been better since the start of this admission. He reports that he is consuming what he can at mealtimes. Most of his meals are documented between 25-100% (most are at 100%). In addition to his meals, he is also drinking the supplement shakes being provided. Nausea was reported earlier in this admission, but none has been reported recently. Will continue to monitor the patient's weight status, laboratory values, and oral intakes. NUTRITION ASSESSMENT: Past medical/surgical history and medications reviewed. Food/Nutrition-Related History Nutrition Support: N/A Diet: Regular Previously followed diet: Regular Food Allergies/Intolerances: None. Adult Energy Intake: No significant decrease Percentage of meal intake: 25-100% Oral Nutrition Supplement (ONS): Supplement Shake (1/2 cup provides 200 calories, 6 grams protein, 34 grams carbohydrate) BID Pertinent medications/vitamins/minerals/supplements: NSS infusion, Belbuca, Cytoxan, Depakote, Hydrochlorothiazide, Novolog, Prilosec, Zofran, Deltasone, Pertinent Biochemical Data: Labs Reviewed. There are no biochemical abnormalities requiring a change in the nutrition plan of care. Nutrition-Focused Physical Findings: Appearance: Obese Respiratory support: Supplemental O2 Delivery: Room Air, None Nasal/Oral: No issues identified Digestive: Appetite good Last Bowel Movement: 06/28/23 (06/29/23 0800) Cognition: Awake, alert and Oriented Skin: Intact Enteral access: N/A Nutrition Focused Physical Exam: NFPE completed on 06/26/23 Subcutaneous Fat Loss: No significant subcutaneous fat loss noted. Muscle Loss: Temples: WNL Clavicles: WNL Shoulders: WNL Interosseous: WNL Anthropometrics Measurements Height: 180.3 cm (5' 11") (06/23/231816) Admission weight: 118.8 kg Weight: 125.2 kg (276 lb) (06/27/232104) BMI: 36.61 (06/23/231816) Usual Body Weight: 124-127 kg [place] weight: 81 kg [place] Weight Based on BMI: 24.9 Adjusted ideal weight: 90.4 kg - adjusted for obesity Interpretation of Weight Change Prior to Admission: Greater than 5% weight loss in 1 month (Severe)- 7% loss over past month (May 2023 127 kg) Weight Changes Since Admission: weight gain-likely fluid related- 7 kg gain since admitted. 12L fluid positive at this time. Nutrition Prescription: Energy needs: 20-25 Kcal/kg Kcal/day: 0877-8225 Based on admission weight Protein needs: 1.0-1.2 gm/kg Protein: 81-97 Based on [place] weight Fluid needs: 1 ml/1 kcal ml/kg Fluid: 3984-0579 ml/day Based on admission weight Malnutrition: Malnutrition Present: Yes (06/22/231515) Adult Malnutrition Classification: Severe (06/22/231515) Malnutrition Characteristics: Weight loss;Inadequate energy intake (06/22/23 151) Malnutrition Care Plan: Patient meets ASPEN/AND criteria for severe malnutrition. Currently able to meet 75% estimated nutrition requirements, consuming 75% of meals and 75% of oralnutrition supplements. Enteral and parenteral nutrition are contraindicated at this time as patient's oral intake is meeting their estimated nutrition needs. Clinical nutrition to follow for sustained adequate oral intake and adjust malnutrition care plan accordingly. Dietitian Action: Continued current care plan (06/30/23 1226) NUTRITION DIAGNOSIS: Malnutrition severe related to acute illness or injury as evidenced by patient consuming less than 75% of estimated energy requirements x 1 month and greater than 5% weight loss x 1 month. Increased nutrient needs (protein and calories) related to cancer as evidenced by the nutrient demand of the condition Goals: Patient to consume greater than 75 % of daily meals and 75% of daily supplements within 5-7 days. Previous diagnosis/Goals: Patient to consume greater than 75 % of daily meals and 75% of daily supplements within 5 days. Improving NUTRITION INTERVENTION/PLAN: Continue current care plan Clinical Nutrition Recommendations: Diet: Continue current nutrition plan NUTRITION MONITORING AND EVALUATION: Nursing documentation flowsheets for percent meal intake Tolerance of supplement per patient/nursing report Lab values warranting change with MNT Weight for trends Plan follow-up: Will follow and adjust nutrition plan of care as medical condition requires. Please contact for change(s) in patient condition requiring earlier intervention. Krystyna Nguyen RDN, LDN Registered Dietitian [phone] Available via [employer] * Care Plan - Saira Ahn RN - 06/29/2023 9:47 PM EDT Clinical Goal(s): Patient will utilize call shafer and ring for assistance (06/28/23736) Possible barriers to meeting goal(s)/advancing plan of care: none Stability of the patient: Moderately stable - low risk of patient condition declining or worsening Summary regarding today's goal(s): Met: Patient utilized call shafer appropriately. Recommendations: Continue to monitor. * Ancillary Progress Note - Maureen Ortega MSW - 06/29/2023 12:04 PM EDT CARE MANAGEMENT - ADULT TRANSITION NOTE [facility]-[address] [address] Name: Farhad Franco Location: [facility] B846/A Date: 06/29/2023 Time: 12:04 PM Risk Stratification Risk Stratification Psycho Social / Medical Concerns Identified: Adjustment to illness/injury (06/22/23899) Accessed Mobile [employer] to connect patients to social care resources: No (06/22/23899) Readmission Risk Score: 28.88 (06/29/23799) AM-PAC Score With Stairs : 23 (06/29/23799) Caregiver Information Patient Contacts Name Relation Home Work Mobile Trixie Bashir Mother [phone] Transition of Care Checklist Narrative: Pt discussed during IDTs and is not medically ready for d/c. CM will continue to addressevolving needs, aid in discharge planning, and provide psychosocial support. Anticipated Transportation at Discharge: family Patient/Family Expectations: home Transition Planning Transition Planning Transition Plan/Considerations: Needs uncertain at this time - Continue monitoring for needs (06/22/23899) Additional Considerations: Care Management will continue to monitor and assist with discharge planning needs * Care Plan - Anne Daniel RN - 06/28/2023 10:36 PM EDT Clinical Goal(s): Patient will utilize call shafer and ring for assistance (05/12/24 0737) Possible barriers to meeting goal(s)/advancing plan of care: none Stability of the patient: Moderately stable - low risk of patient condition declining or worsening Summary regarding today's goal(s): Met: patient rang call shafer for assistance as needed Recommendations: continue plan of care * Care Plan - Anne Daniel RN - 06/27/2023 11:20 PM EDT Clinical Goal(s): Patient will report pain at a tolerable level (06/27/23 0911) Possible barriers to meeting goal(s)/advancing plan of care: none Stability of the patient: Moderately stable - low risk of patient condition declining or worsening Summary regarding today's goal(s): Met: patient reported pain was tolerable throughout the day Recommendations: continue plan of care * Care Plan - Anne Daniel RN - 06/26/2023 11:53 PM EDT Clinical Goal(s): safety (06/26/23 0800) Possible barriers to meeting goal(s)/advancing plan of care: none Stability of the patient: Moderately stable - low risk of patient condition declining or worsening Summary regarding today's goal(s): Met: patient remained safe throughout shift Recommendations: continue plan of care * Ancillary Progress Note - Veena Miranda RDN - 06/26/2023 2:22 PM EDT CLINICAL NUTRITION CONSULT/PROGRESS NOTE [facility] [address] Name: Farhad Franco Location: [facility] B846/A Date: 06/26/2023 Time: 9:55 AM How patient was identified (select 2): date and Name Discussed in interdisciplinary rounds: No Farhad Franco is a 32 year old male being seen for follow-up Primary Diagnosis: Retroperitoneal mass. Other pertinent information: patient sitting in chair. Mom at bedside. He stated he has had taste changes and sometimes has no taste which is impacting PO intake. Overall he thinks he is eating ~50% of meals on most days. Sometimes mother will get food from cafeteria. Intake documenation limited--pt eating 25- 90% meals. He is receptive to trial of supplement shake BID NUTRITION ASSESSMENT: Past medical/surgical history and medications reviewed. Food/Nutrition-Related History Diet: Regular Previously followed diet: regular Food Allergies/Intolerances: none Adult Energy Intake: Less than 75% of estimated energy requirement for greater than 1 month (moderate/severe, chronic illness). Percentage of meal intake: 25-50% Oral Nutrition Supplement (ONS): none Pertinent medications/vitamins/minerals/supplements: novolog, NSS infusion,prednisone, cytoxin, senna, HCTZ Pertinent Biochemical Data: Nutrition related labs reviewed. There are no biochemical abnormalitiesrequiring a change in the nutrition plan of care at this time. Nutrition-Focused Physical Findings: Appearance: Obese Respiratory support: Supplemental O2 Delivery: Room Air, None Nasal/Oral: Taste alterations Digestive: appetite poor to fair-varies Last Bowel Movement: 06/24/23 (06/24/23 2200) Cognition: Awake, alert and Oriented Skin: Intact Nutrition Focused Physical Exam: NFPE completed on 06/26/23 Subcutaneous Fat Loss: No significant subcutaneous fat loss noted. Muscle Loss: Temples: WNL Clavicles: WNL Shoulders: WNL Interosseous: WNL Anthropometrics Measurements Height: 180.3 cm (5' 11") (06/23/231816) Admission weight: 118.8 kg Weight: 120.2 kg (265 lb) (06/26/23336) BMI: 36.61 (06/23/231816) Usual Body Weight: 124-127 kg [place] weight: 81 kg [place] Weight Based on BMI: 24.9 Adjusted ideal weight: 90.4 kg - adjusted for obesity Interpretation of Weight Change Prior to Admission: Greater than 5% weight loss in 1 month (Severe)- 7% loss over past month (May 2023 127 kg) Weight Changes Since Admission: weight gain-likely fluid related Nutrition Prescription: Energy needs: 20-25 Kcal/kg Kcal/day: 7856-9714 Based on admission weight Protein needs: 1.0-1.2 gm/kg Protein: 81-97 Based on [place] weight Fluid needs: 1 ml/1 kcal ml/kg Fluid: 0157-8652 ml/day Based on admission weight Malnutrition: Malnutrition Present: Yes (06/22/231515) Adult Malnutrition Classification: Severe (06/22/231515) Malnutrition Characteristics: Weight loss;Inadequate energy intake (06/22/231515) Malnutrition Care Plan: Patient meets ASPEN/AND criteria for severe malnutrition. Plan to meet 75% of estimated calorie and 75% of estimated protein requirements via therapeutic diet and a nutrition intervention of oral nutrition supplements. If patient unable to achieve estimatedrequirements over next 5 days, will need to consider enteral nutrition. Dietitian Action: Oral nutritional supplement ordered/adjusted (06/26/23 1433) Supplement Shake (1/2 cup provides 200 calories, 6 grams protein, 34 grams carbohydrate) BID NUTRITION DIAGNOSIS: Malnutrition severe related to acute illness or injury as evidenced by patient consuming less than 75% of estimated energy requirements x 1 month and greater than 5% weight loss x 1 month. Goals: Patient to consume greater than 75 % of daily meals and 75% of daily supplements within 5 days. Previous diagnosis/Goals: No improvement Patient will consume 75% estimated nutrient needs within 3-5 days. NUTRITION INTERVENTION/PLAN: Orders: Oral nutrition supplement added Supplement Shake (1/2 cup provides 200 calories, 6 grams protein, 34 grams carbohydrate) BID Clinical Nutrition Recommendations: Diet: Continue current nutrition plan NUTRITION MONITORING AND EVALUATION: Nursing documentation flowsheets for percent meal intake Tolerance of supplement per patient/nursing report Lab values warranting change with MNT Weight for trends Plan follow-up: Will follow and adjust nutrition plan of care as medical condition requires. Please contact for change(s) in patient condition requiring earlier intervention. Veena Miranda, MS, RD, LDN, FNKF Clinical Dietitian [facility] Extension: [id number] [place] Text * Care Plan - Anne Daniel RN - 06/25/2023 10:05 PM EDT Clinical Goal(s): safety (06/25/23 0800) Possible barriers to meeting goal(s)/advancing plan of care: none Stability of the patient: Moderately stable - low risk of patient condition declining or worsening Summary regarding today's goal(s): Met: patient remained safe today Recommendations: continue plan of care * Ancillary Progress Note - Marina Hernandez LSW - 06/25/2023 12:06 PM EDT CARE MANAGEMENT - ADULT TRANSITION NOTE [facility] [address] Name: Farhad Franco Location: [facility] B846/A Date: 06/25/2023 Time: 12:06 PM Risk Stratification Risk Stratification Psycho Social / Medical Concerns Identified: Adjustment to illness/injury (06/22/23 09) Accessed Neighborly to connect patients to social care resources: No (06/22/23899) Readmission Risk Score: 16.49 (06/25/23 1201) AM-PAC Score With Stairs : 24 (06/25/23 0800) Caregiver Information Patient Contacts Name Relation Home Work Mobile Trixie Bashir Mother [phone] Transition of Care Checklist Narrative: Per Service, Pt is not medically ready and will be here through the weekend. 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 Pt needs BMB and treatment plan before DC as well. SW will continue to follow along and provide support with d/c planning. Anticipated Transportation at Discharge: family Patient/Family Expectations: home Transition Planning Transition Planning Transition Plan/Considerations: Needs uncertain at this time - Continue monitoring for needs (06/22/23 09) Additional Considerations: NA Care Management will continue to monitor and assist with discharge planning needs * Care Plan - Violet Webster RN - 06/24/2023 11:18 PM EDT Clinical Goal(s): the patient will remain free from injuries (06/24/23 0830) Possible barriers to meeting goal(s)/advancing plan of care: fall risk Stability of the patient: Moderately stable - low risk of patient condition declining or worsening Summary regarding today's goal(s): Met: Patient remained free from injuries Recommendations: Continue current care plan * Care Plan - Anne Daniel RN - 06/23/2023 11:39 PM EDT Clinical Goal(s): pt will have adequate pain control this shift (06/23/23 08) Possible barriers to meeting goal(s)/advancing plan of care: none Stability of the patient: Moderately stable - low risk of patient condition declining or worsening Summary regarding today's goal(s): Met: patient had adequate pain control Recommendations: continue plan of care * Communication - Inder Gonzalez PA-C - 06/23/2023 9:44 PM EDT Patient refusing tele. Will discontinue order. * Care Plan - Mago Samuel RN - 06/23/2023 2:22 PM EDT Clinical Goal(s): pt will have adequate pain control this shift (06/23/23 08) Possible barriers to meeting goal(s)/advancing plan of care: severe pain and discomfort Stability of the patient: Moderately stable - low risk of patient condition declining or worsening Summary regarding today's goal(s): Met: pt's pain and discomfort is manageable Recommendations: continue to monitor * Ancillary Progress Note - Lazara Zhu BSW - 06/23/2023 9:26 AM EDT CARE MANAGEMENT - ADULT TRANSITION NOTE [facility] [address] Name: Farhad Franco Location: [address] Date: 06/23/2023 Time: 9:26 AM Risk Stratification Risk Stratification Psycho Social / Medical Concerns Identified: Adjustment to illness/injury (06/22/23899) Accessed [employer] to connect patients to social care resources: No (06/22/23899) Readmission Risk Score: 11.15 (06/23/23799) AM-PAC Score With Stairs : 24 (06/23/23799) Caregiver Information Patient Contacts Name Relation Home Work Mobile Trixie Bashir Mother [phone] Transition of Care Checklist Narrative: Pt discussed at IDT's, per service, pt not medically ready to dc on this date. Pts barrier is pain mgmt, service discussing options with palliative. Cm to follow. Anticipated Transportation at Discharge: family Patient/Family Expectations: return home Transition Planning Transition Planning Transition Plan/Considerations: Needs uncertain at this time - Continue monitoring for needs (06/22/23899) Additional Considerations: na Care Management will continue to monitor and assist with discharge planning needs * Ancillary Progress Note - Lazara Zhu BSW - 06/22/2023 9:41 AM EDT CARE MANAGEMENT - ADULT TRANSITION NOTE [facility] [address] Name: Farhad Franco Location: [facility] B325/A Date: 06/22/2023 Time: 9:41 AM Risk Stratification Risk Stratification Psycho Social / Medical Concerns Identified: Adjustment to illness/injury (06/22/23899) Accessed [employer] to connect patients to social care resources: No (06/22/23899) Readmission Risk Score: 11.95 (06/22/23801) AM-PAC Score With Stairs : 24 (06/22/23799) Caregiver Information Patient Contacts Name Relation Home Work Trixie Cox Mother [phone] Transition of Care Checklist Narrative: Pt discussed at IDT's, per service, pt not medically ready to dc on this date. Pt to have biopsy today. CM met with pt and pts mother at bedside, pts mother is requesting a Palliative consult due to medication needs. CM to update service. Anticipated Transportation at Discharge: family Patient/Family Expectations: home Transition Planning Transition Planning Transition Plan/Considerations: Needs uncertain at this time - Continue monitoring for needs (06/22/23899) Additional Considerations: na Care Management will continue to monitor and assist with discharge planning needs * Ancillary Progress Note - Lazara Zhu BSW - 06/22/2023 9:29 AM EDT CARE MANAGEMENT - ADULT INITIAL SCREENING [facility] [address] Name: Farhad Franco Location: [facility] B325/A Date: 06/22/2023 Time: 9:29 AM Discussed patient with the interdisciplinary care team. This [employer] [facility] Worker performed a chart review and met with pt and mother at bedside to complete admission screen and assessed needs for transitionplanning. The palliative care nurse role and services were explained and emotional support was provided. Chief Complaint: No chief complaint on file. Prior Living Arrangements What was your living situation prior to admission/observation?: With Child (06/20/232200) Living Quarters: Apartment (06/22/23899) Number of steps to enter living quarters:: 0 (06/22/23899) Do you have serious difficulty walking or climbing stairs? (5 years old or older): Yes (06/20/232200) History of falling: No (06/22/23799) Prior Level of Functioning Describe the patient's ability prior to admission/observation to perform ADLs: Performs independently (06/20/232200) Describe the patient's mobility status prior to admission: Patient ambulates independently (06/20/232200) Patient uses assistive device: No (06/20/232200) Caregiver Information Patient Contacts Name Relation Home Work Mobile MckayGenesis barahonaa Mimi Mother [phone] Risk Stratification/Psychosocial/Care Gaps Risk Stratification Psycho Social / Medical Concerns Identified: Adjustment to illness/injury (06/22/23899) Accessed [employer] to connect patients to social care resources: No (06/22/23899) Readmission Risk Score: 11.95 (06/22/23 0802) AM-PAC Score With Stairs : 24 (06/22/23 0800) Prior to Admission Services Services Prior to Admission COMMUNITY AFFAIRS MANAGER Services (Services received within the last 30 days with exception, Psych within last two years): N/A (06/22/23 09) COMMUNITY AFFAIRS MANAGER Transportation (Services received within the last 30 days): Family/Friends Personal Vehicle (06/22/23 09) Outpatient [place] [facility] Worker: No care teamcenter solution architect to display Patient/Family Expectations: return home For further screening information, please refer to the Care Management flow document. * Care Plan - Benita Calvillo RN - 06/22/2023 5:31 AM EDT Clinical Goal(s): Patient will utilize call shafer when gettting out of bed. (06/22/23 0000) Possible barriers to meeting goal(s)/advancing plan of care: Pain Stability of the patient: Moderately stable - low risk of patient condition declining or worsening Summary regarding today's goal(s): Not Met: Patient needed frequent reminders to call when getting out of bed. Recommendations: Continue hourly rounding. * [facility] - Kylah Bishop RN - 06/21/2023 7:50 PM EDT pain Clinical Goal(s): pt will have sats >92 (06/21/23 0700) Possible barriers to meeting goal(s)/advancing plan of care: weakness pain Stability of the patient: Moderately stable - low risk of patient condition declining or worsening Summary regarding today's goal(s): Met: pt had adequate sats Recommendations: monitor * [facility] - Benita Calvillo RN - 06/21/2023 5:26 AM EDT Clinical Goal(s): Patient will remain free from falls during this shift. (06/20/23 2300) Possible barriers to meeting goal(s)/advancing plan of care: Pain Stability of the patient: Moderately stable - low risk of patient condition declining or worsening Summary regarding today's goal(s): Met: Patient had no falls during this shift. Recommendations: Continue hourly rounding and safety precautions. documented in this encounter Plan of Treatment Upcoming Encounters Date Type Department Care Team (Late st Contact Info) Description 07/09/2023 8:00 AM EDT Immunization/Injectio n Hematology/Oncology Treatment, [address] [place] [address] [facility], Chair1 Hem Onc [address] [place] [address] [place] [address] 07/15/2023 11:30 AM EDT Laboratory Laboratory, [address] [place] [id number] [facility], Lab [address] [place] [address] [place] [address] 07/15/2023 12:30 PM EDT Office Visit Hematology/Oncology, [address] [place] [address] Lakeshia Stone CRNP [address] [facility] [place] [address] 07/22/2023 9:00 AM EDT Office Visit Palliative Medicine [facility] [address] [facility] [place] [address] Aury Silva MD [address] [facility] [place] [address] 07/22/2023 2:00 PM EDT Appointment Radiology, [place] [address] [place] [address] 07/24/2023 12:40 PM EDT [facility] Visit [facility] [place] [address] [facility] [place] [address] Calin Galloway PA-C [address] [facility] [place] [address] 07/27/2023 9:00 AM EDT Office Visit Hematology/Oncology, [facility] [address] [place] [address] Mike Chaudhary MD [address] [place] [address] 08/12/2023 2:00 PM EDT Appointment Radiology, [place] [address] [place] [address] 08/26/2023 1:00 PM EDT Office Visit Sleep Disorders, [facility] [address] [place] [address] Dave Daigle PA-C [address] [place] [address] Pending Results Name Type Priority Associated Diagnoses Date /Time BONE MARROW PANEL Lab STAT 024 2:17 PM EDT BONE MARROW ASPIRATE LAVENDER (MOLECULAR) - 2 TUB* Lab STAT 06/25/2023 2:17 PM EDT BONE MARROW ASPIRATE GREEN (REFERRED) Lab STAT 06/25/2023 2:17 PM EDT Scheduled Orders Name Type Priority Associated Diagnoses Orde r Schedule SURGICAL PATHOLOGY Pathology Routine One Ti me for 1 Occurrences starting 06/22/2023 until 06/22/2023 IR BIOPSY Medical Imaging Routine One Time for 1 Occurrences starting 06/25/2023 until 06/25/2023 BONE MARROW PANEL Lab STAT One Adan e for 1 Occurrences starting 06/25/2023 until 06/25/2023 BONE MARROW ASPIRATE LAVENDER (MOLECULAR) - 2 TUB* Lab STAT Once for 1 Occurrences starting 06/25/2023 until 06/25/2023, 1 completed BONE MARROW ASPIRATE GREEN (REFERRED) Lab STAT Once for 1 Occurrences starting 06/25/2023 until 06/25/2023 PICC CATHETER AUTHORIZED FOR USE Procedures Routine One Time for 1 Occurrences starting 06/25/2023 until 06/25/2023 IR VENOUS ACCESS MEDIPORT Medical Imaging Routine B-cell lymphoma of intra-abdominal lymph nodes, unspecified B-cell lymphoma type (HCC) Expected: 07/16/2023, Expires: 08/01/2024 CELL COUNT WITH DIFFERENTIAL, CSF Lab STAT B-cell lymphoma of intra-abdominal lymph nodes, unspecified B-cell lymphoma type (HCC) Expected: 07/02/2023 (Approximate), Expires: 12/29/2023 CYTOLOGY Pathology Routine B-cell lymphoma of intra-abdominal lymph nodes, unspecified B-cell lymphoma type (HCC) Expected: 07/02/2023 (Approximate), Expires: 12/29/2023 FLOW CYTOMETRY, LEUKEMIA LYMPHOMA PANEL Lab STAT B-cell lymphoma of intra-abdominal lymph nodes, unspecified B-cell lymphoma type (HCC) Expected: 07/02/2023 (Approximate), Expires: 12/29/2023 IR VENOUS ACCESS MEDIPORT Medical Imaging Routine B-cell lymphoma of intra-abdominal lymph nodes, unspecified B-cell lymphoma type (HCC) Expected: 07/10/2023, Expires: 08/02/2024 EKG EKG Routine Chest pain One Time for 1 Occurrences starting 07/06/2023 until 07/06/2023 Health Maintenance Due Date Last Done Comments [...] 10/09/2005, 04/23/1994, Additional history exists Depression Screening 06/10/2024 06/11/2023 MENINGOCOCCAL (MENACTRA/MENVEO) Completed 04/09/2007 Albumin/Creatinine Ratio Discontinued 08/02/2021 GARDASIL-HPV IMMUNIZATION SERIES Aged Out No longer eligible based on patient's age to complete this topic documented as of this encounter Medical Devices Not on filedocumented as of this encounter Procedures Procedure Name Priority Date/Time Associated Diagnosis Comments GLUCOSE METER, POINT OF CARE ELIEL 07/07/2023 11:20 AM EDT GLUCOSE METER, POINT OF CARE [facility] 07/07/2023 6:35 AM EDT DIFFERENTIAL, AUTOMATED Routine 07/07/19 4:59 AM EDT TROPONIN T, HIGH SENSITIVITY Routine 07/07/2023 4:59 AM EDT HEPATIC FUNCTION PANEL Routine 4:59 AM EDT BASIC METABOLIC PANEL Routine 07/07/2023 4:59 AM EDT CBC Routine 07/07/2023 4:59 AM EDT PHOSPHORUS Routine 07/07/2023 4:59 AM EDT LD Routine 07/07/2023 4:59 AM EDT CBC Routine 07/07/2023 4:59 AM EDT URIC ACID Routine 07/07/2023 4:59 AM EDT MAGNESIUM Routine 07/07/2023 4:59 AM EDT GLUCOSE METER, POINT OF CARE [facility] 07/06/2023 9:07 PM EDT GLUCOSE METER, POINT OF CARE ELIEL 07/06/2023 4:21 PM EDT XR CHEST 1 VIEW STAT 07/06/2023 3:08 PM EDT GLUCOSE METER, POINT OF CARE [facility] 07/06/2023 11:14 AM EDT GLUCOSE METER, POINT OF CARE [facility] 07/06/2023 6:37 AM EDT DIFFERENTIAL, AUTOMATED Routine 07/06/19 3:22 AM EDT TROPONIN T, HIGH SENSITIVITY Add-on 07/06/2023 3:22 AM EDT HEPATIC FUNCTION PANEL Routine 3:22 AM EDT BASIC METABOLIC PANEL Routine 07/06/2023 3:22 AM EDT CBC Routine 07/06/2023 3:22 AM EDT PHOSPHORUS Routine 07/06/2023 3:22 AM EDT LD Routine 07/06/2023 3:22 AM EDT CBC Routine 07/06/2023 3:22 AM EDT URIC ACID Routine 07/06/2023 3:22 AM EDT MAGNESIUM Routine 07/06/2023 3:22 AM EDT GLUCOSE METER, POINT OF CARE ELIEL 07/05/2023 9:34 PM EDT GLUCOSE METER, POINT OF CARE [facility] 07/05/2023 4:03 PM EDT GLUCOSE METER, POINT OF CARE ELIEL 07/05/2023 11:09 AM EDT GLUCOSE METER, POINT OF CARE [facility] 07/05/2023 7:02 AM EDT DIFFERENTIAL, AUTOMATED Routine 07/05/19 4:24 AM EDT HEPATIC FUNCTION PANEL Routine 4:24 AM EDT BASIC METABOLIC PANEL Routine 07/05/2023 4:24 AM EDT CBC Routine 07/05/2023 4:24 AM EDT PHOSPHORUS Routine 07/05/2023 4:24 AM EDT LD Routine 07/05/2023 4:24 AM EDT CBC Routine 07/05/2023 4:24 AM EDT URIC ACID Routine 07/05/2023 4:24 AM EDT MAGNESIUM Routine 07/05/2023 4:24 AM EDT BASIC METABOLIC PANEL Routine 07/04/2023 9:52 PM EDT PHOSPHORUS Routine 07/04/2023 9:52 PM EDT LD Routine 07/04/2023 9:52 PM EDT URIC ACID Routine 07/04/2023 9:52 PM EDT GLUCOSE METER, POINT OF CARE ELI[facility] 07/04/2023 9:47 PM EDT GLUCOSE METER, POINT OF CARE [facility] 07/04/2023 4:18 PM EDT BASIC METABOLIC PANEL Routine 07/04/2023 1:26 PM EDT PHOSPHORUS Routine 07/04/2023 1:26 PM EDT LD Routine 07/04/2023 1:26 PM EDT URIC ACID Routine 07/04/2023 1:26 PM EDT GLUCOSE METER, POINT OF CARE ELIEL 07/04/2023 11:19 AM EDT GLUCOSE METER, POINT OF CARE [facility] 07/04/2023 6:43 AM EDT DIFFERENTIAL, AUTOMATED Routine 07/04/19 3:17 AM EDT HEPATIC FUNCTION PANEL Routine 3:17 AM EDT BASIC METABOLIC PANEL Routine 07/04/2023 3:17 AM EDT CBC Routine 07/04/2023 3:17 AM EDT PHOSPHORUS Routine 07/04/2023 3:17 AM EDT LD Routine 07/04/2023 3:17 AM EDT CBC Routine 07/04/2023 3:17 AM EDT URIC ACID Routine 07/04/2023 3:17 AM EDT MAGNESIUM Routine 07/04/2023 3:17 AM EDT BASIC METABOLIC PANEL Routine 07/03/2023 10:53 PM EDT PHOSPHORUS Routine 07/03/2023 10:53 PM EDT LD Routine 07/03/2023 10:53 PM EDT URIC ACID Routine 07/03/2023 10:53 PM EDT GLUCOSE METER, POINT OF CARE ELIEL 07/03/2023 9:23 PM EDT GLUCOSE METER, POINT OF CARE [facility] 07/03/2023 4:13 PM EDT FLOW CYTOMETRY, LEUKEMIA LYMPHOMA PANEL Routine 07/03/2023 1:35 PM EDT BASIC METABOLIC PANEL Routine 07/03/2023 1:35 PM EDT PHOSPHORUS Routine 07/03/2023 1:35 PM EDT LD Routine 07/03/2023 1:35 PM EDT URIC ACID Routine 07/03/2023 1:35 PM EDT GLUCOSE METER, POINT OF CARE ELIEL 07/03/2023 11:19 AM EDT GLUCOSE METER, POINT OF CARE ELIEL 07/03/2023 6:36 AM EDT DIFFERENTIAL, AUTOMATED Routine 07/03/19 6:21 AM EDT HEPATIC FUNCTION PANEL Routine 6:21 AM EDT CBC Routine 07/03/2023 6:21 AM EDT PHOSPHORUS Add-on 07/03/2023 6:21 AM EDT LD Add-on 07/03/2023 6:21 AM EDT CBC Routine 07/03/2023 6:21 AM EDT URIC ACID Add-on 07/03/2023 6:21 AM EDT MAGNESIUM Routine 07/03/2023 6:21 AM EDT BASIC METABOLIC PANEL Routine 07/03/2023 12:04 AM EDT PHOSPHORUS Routine 07/03/2023 12:04 AM EDT LD Routine 07/03/2023 12:04 AM EDT URIC ACID Routine 07/03/2023 12:04 AM EDT GLUCOSE METER, POINT OF CARE ELIEL 07/02/2023 9:32 PM EDT GLUCOSE METER, POINT OF CARE [facility] 07/02/2023 4:19 PM EDT FLOW CYTOMETRY, LEUKEMIA LYMPHOMA PANEL Routine 07/02/2023 2:25 PM EDT MANUAL DIFFERENTIAL, CSF STAT 07/02/2023 2:25 PM EDT CELL COUNT WITH DIFFERENTIAL, CSF STAT 07/02/2023 2:25 PM EDT CELL COUNT, CSF STAT 07/02/2023 2:25 PM EDT PROTEIN, CSF Routine 07/02/2023 2:25 PM EDT CYTOLOGY Routine 07/02/2023 2:25 PM EDT GLUCOSE METER, POINT OF CARE [facility] 07/02/2023 11:17 AM EDT GLUCOSE METER, POINT OF CARE [facility] 07/02/2023 6:35 AM EDT DIFFERENTIAL, AUTOMATED Routine 07/02/19 24 3:27 AM EDT HEPATIC FUNCTION PANEL Routine 3:27 AM EDT BASIC METABOLIC PANEL Routine 07/02/2023 3:27 AM EDT CBC Routine 07/02/2023 3:27 AM EDT PHOSPHORUS Routine 07/02/2023 3:27 AM EDT LD Routine 07/02/2023 3:27 AM EDT CBC Routine 07/02/2023 3:27 AM EDT URIC ACID Routine 07/02/2023 3:27 AM EDT MAGNESIUM Routine 07/02/2023 3:27 AM EDT GLUCOSE METER, POINT OF CARE ELIEL 07/01/2023 9:34 PM EDT GLUCOSE METER, POINT OF CARE [facility] 07/01/2023 4:11 PM EDT GLUCOSE METER, POINT OF CARE ELI[facility] 07/01/2023 4:08 PM EDT GLUCOSE METER, POINT OF CARE ELI[facility] 07/01/2023 11:14 AM EDT GLUCOSE METER, POINT OF CARE ELI[facility] 07/01/2023 7:34 AM EDT DIFFERENTIAL, AUTOMATED Routine 07/01/19 3:27 AM EDT URIC ACID, RASBURICASE USER Routine 07/01/2023 3:27 AM EDT HEPATIC FUNCTION PANEL Routine 3:27 AM EDT BASIC METABOLIC PANEL Routine 07/01/2023 3:27 AM EDT CBC Routine 07/01/2023 3:27 AM EDT PHOSPHORUS Routine 07/01/2023 3:27 AM EDT LD Routine 07/01/2023 3:27 AM EDT CBC Routine 07/01/2023 3:27 AM EDT URIC ACID Routine 07/01/2023 3:27 AM EDT MAGNESIUM Routine 07/01/2023 3:27 AM EDT GLUCOSE METER, POINT OF CARE [facility] 06/30/2023 9:59 PM EDT GLUCOSE METER, POINT OF CARE ELI[facility] 06/30/2023 4:32 PM EDT GLUCOSE METER, POINT OF CARE [facility] 06/30/2023 10:40 AM EDT GLUCOSE METER, POINT OF CARE [facility] 06/30/2023 6:30 AM EDT DIFFERENTIAL, AUTOMATED Routine 06/30/19 3:19 AM EDT HEPATIC FUNCTION PANEL Routine 3:19 AM EDT BASIC METABOLIC PANEL Routine 06/30/2023 3:19 AM EDT CBC Routine 06/30/2023 3:19 AM EDT PHOSPHORUS Routine 06/30/2023 3:19 AM EDT LD Routine 06/30/2023 3:19 AM EDT CBC Routine 06/30/2023 3:19 AM EDT URIC ACID Routine 06/30/2023 3:19 AM EDT MAGNESIUM Routine 06/30/2023 3:19 AM EDT GLUCOSE METER, POINT OF CARE [facility] 06/29/2023 9:13 PM EDT US SCROTUM/TESTES Routine 06/29/2023 7:[address] HEAD/BRAIN W WO CONTRAST Routine 06/29/2023 6:33 PM EDT GLUCOSE METER, POINT OF CARE [facility] 06/29/2023 4:21 PM EDT GLUCOSE METER, POINT OF CARE [facility] 06/29/2023 10:50 AM EDT GLUCOSE METER, POINT OF CARE [facility] 06/29/2023 6:41 AM EDT DIFFERENTIAL, AUTOMATED Routine 06/29/19 3:39 AM EDT URIC ACID, RASBURICASE USER Routine 06/29/2023 3:39 AM EDT HEPATIC FUNCTION PANEL Routine 3:39 AM EDT BASIC METABOLIC PANEL Routine 06/29/2023 3:39 AM EDT CBC Routine 06/29/2023 3:39 AM EDT PHOSPHORUS Routine 06/29/2023 3:39 AM EDT LD Routine 06/29/2023 3:39 AM EDT CBC Routine 06/29/2023 3:39 AM EDT MAGNESIUM Routine 06/29/2023 3:39 AM EDT GLUCOSE METER, POINT OF CARE [facility] 06/29/2023 2:25 AM EDT GLUCOSE METER, POINT OF CARE [facility] 06/28/2023 9:32 PM EDT URIC ACID, RASBURICASE USER Routine 06/28/2023 6:18 PM EDT BASIC METABOLIC PANEL Routine 06/28/2023 6:18 PM EDT PHOSPHORUS Routine 06/28/2023 6:18 PM EDT GLUCOSE METER, POINT OF CARE [facility] 06/28/2023 4:20 PM EDT GLUCOSE METER, POINT OF CARE [facility] 06/28/2023 11:29 AM EDT DIFFERENTIAL, AUTOMATED Routine 06/28/19 9:05 AM EDT URIC ACID, RASBURICASE USER Routine 06/28/2023 9:05 AM EDT HEPATIC FUNCTION PANEL Routine 9:05 AM EDT BASIC METABOLIC PANEL Routine 06/28/2023 9:05 AM EDT CBC Routine 06/28/2023 9:05 AM EDT PHOSPHORUS Routine 06/28/2023 9:05 AM EDT LD Routine 06/28/2023 9:05 AM EDT CBC Routine 06/28/2023 9:05 AM EDT MAGNESIUM Routine 06/28/2023 9:05 AM EDT GLUCOSE METER, POINT OF CARE [facility] 06/28/2023 6:30 AM EDT GLUCOSE METER, POINT OF CARE [facility] 06/27/2023 9:10 PM EDT URIC ACID, RASBURICASE USER Routine 06/27/2023 5:32 PM EDT BASIC METABOLIC PANEL Routine 06/27/2023 5:31 PM EDT PHOSPHORUS Routine 06/27/2023 5:31 PM EDT GLUCOSE METER, POINT OF CARE [facility] 06/27/2023 4:11 PM EDT GLUCOSE METER, POINT OF CARE [facility] 06/27/2023 10:55 AM EDT DIFFERENTIAL, AUTOMATED Routine 06/27/19 8:12 AM EDT BASIC METABOLIC PANEL Routine 06/27/2023 8:12 AM EDT CBC Routine 06/27/2023 8:12 AM EDT PHOSPHORUS Routine 06/27/2023 8:12 AM EDT LD Routine 06/27/2023 8:12 AM EDT CBC Routine 06/27/2023 8:12 AM EDT URIC ACID Routine 06/27/2023 8:12 AM EDT MAGNESIUM Routine 06/27/2023 8:12 AM EDT EXTRA GREEN TOP WITH GEL Routine 06/27/2023 8:07 AM EDT EXTRA TUBES Routine 06/27/2023 8:07 AM EDT GLUCOSE METER, POINT OF CARE [facility] 06/27/2023 6:59 AM EDT GLUCOSE METER, POINT OF CARE ELIEL 06/26/2023 10:17 PM EDT BASIC METABOLIC PANEL Routine 06/26/2023 8:45 PM EDT PHOSPHORUS Routine 06/26/2023 8:45 PM EDT LD Routine 06/26/2023 8:45 PM EDT URIC ACID Routine 06/26/2023 8:45 PM EDT LD Routine 06/26/2023 6:35 PM EDT GLUCOSE METER, POINT OF CARE ELIEL 06/26/2023 1:06 PM EDT DIFFERENTIAL, AUTOMATED Routine 06/26/19 8:34 AM EDT URIC ACID, RASBURICASE USER Routine 06/26/2023 8:34 AM EDT HEPATIC FUNCTION PANEL Add-on 8:34 AM EDT BASIC METABOLIC PANEL Routine 06/26/2023 8:34 AM EDT PT INR Routine 06/26/2023 8:34 AM EDT PHOSPHORUS Routine 06/26/2023 8:34 AM EDT LD Add-on 06/26/2023 8:34 AM EDT CBC Routine 06/26/2023 8:34 AM EDT URIC ACID Routine 06/26/2023 8:34 AM EDT MAGNESIUM Routine 06/26/2023 8:[address] ABD/PELVIS WO IV/ORAL CONTRAST Routine 06/25/2023 11:26 PM EDT XR CHEST 1 VIEW STAT 06/25/2023 9:44 PM EDT ANE GHS CENTRAL LINE Routine 06/25/2023 6:57 PM EDT FLOW CYTOMETRY, LEUKEMIA LYMPHOMA PANEL STAT 06/25/2023 2:17 PM EDT BONE MARROW ASPIRATE GREEN (FLOW) STAT 06/25/2023 2:17 PM EDT BONE MARROW WITH REFLEX TESTING STAT 06/25/2023 2:17 PM EDT DIFFERENTIAL, AUTOMATED Routine 06/25/19 8:20 AM EDT HEPATITIS B SURFACE ANTIBODY Routine 06/25/2023 8:20 AM EDT BASIC METABOLIC PANEL Routine 06/25/2023 8:20 AM EDT HEPATITIS B CORE ANTIBODIES IGG AND IGM Routine 06/25/2023 8:20 AM EDT HEPATITIS B SURFACE ANTIGEN Routine 06/25/2023 8:20 AM EDT SERUM FREE LIGHT CHAINS Routine 06/25/19 8:20 AM EDT PHOSPHORUS Routine 06/25/2023 8:20 AM EDT CBC Routine 06/25/2023 8:20 AM EDT URIC ACID Routine 06/25/2023 8:20 AM EDT MAGNESIUM Routine 06/25/2023 8:20 AM EDT URIC ACID, RASBURICASE USER Routine 06/25/2023 8:19 AM EDT PT INR Routine 06/25/2023 8:19 AM EDT GASTROINTESTINAL PATHOGEN PANEL, STOOL Routine 06/24/2023 6:48 PM EDT GASTROINTESTINAL PATHOGEN PANEL CULTURE Routine 06/24/2023 6:48 PM EDT GASTROINTESTINAL PATHOGEN PANEL PCR Routine 06/24/2023 6:48 PM EDT CLOSTRIDIUM DIFFICILE, PCR Routine 06/24/2023 6:48 PM EDT HIV ANTIGEN & ANTIBODY SCREEN W/ CONFIRMATION Routine 06/24/2023 4:18 PM EDT ACUTE HEPATITIS PANEL Add-on 06/24/2023 4:18 PM EDT ECHO, COMPLETE (2D), TRANS-THORACIC Routine 06/24/2023 3:47 PM EDT Encounter for antineoplastic chemotherapy BASIC METABOLIC PANEL Routine 06/24/2023 8:01 AM EDT PT INR Routine 06/24/2023 8:01 AM EDT PHOSPHORUS Routine 06/24/2023 8:01 AM EDT CBC Routine 06/24/2023 8:01 AM EDT URIC ACID Add-on 06/24/2023 8:01 AM EDT MAGNESIUM Routine 06/24/2023 8:01 AM EDT LD Routine 06/23/2023 12:32 PM EDT BASIC METABOLIC PANEL Routine 06/23/2023 6:33 AM EDT PT INR Routine 06/23/2023 6:33 AM EDT PHOSPHORUS Routine 06/23/2023 6:33 AM EDT CBC Routine 06/23/2023 6:33 AM EDT URIC ACID Add-on 06/23/2023 6:33 AM EDT MAGNESIUM Routine 06/23/2023 6:33 AM EDT FLOW CYTOMETRY, LEUKEMIA LYMPHOMA PANEL Routine 06/22/2023 12:37 PM EDT HIGH-GRADE/LARGE B-CELL LYMPHOMA FISH PANEL Routine 06/22/2023 12:37 PM EDT CYTOLOGY Routine 06/22/2023 12:37 PM EDT IR BIOPSY Routine 06/22/2023 11:38 AM EDT PAOLA-RYAN VIRUS DNA, QUANTITATIVE REAL-TIME PCR Add-on 06/22/2023 7:31 AM EDT BASIC METABOLIC PANEL Routine 06/22/2023 7:31 AM EDT PT INR Routine 06/22/2023 7:31 AM EDT PHOSPHORUS Routine 06/22/2023 7:31 AM EDT CBC Routine 06/22/2023 7:31 AM EDT MAGNESIUM Routine 06/22/2023 7:31 AM EDT HC ECG TRACING ONLY STAT 06/21/2023 5 :46 PM EDT Chest pain BASIC METABOLIC PANEL Routine 06/21/2023 7:08 AM EDT PT INR Routine 06/21/2023 7:08 AM EDT PHOSPHORUS Routine 06/21/2023 7:08 AM EDT CBC Routine 06/21/2023 7:08 AM EDT MAGNESIUM Routine 06/21/2023 7:08 AM EDT documented in this encounter Results * GLUCOSE METER, POINT OF CARE (07/07/2023 11:20 AM EDT) Glucose Meter 100 70 - 120 mg/dL 07/07/2023 11:28 AM EDT [facility] Blood Whole blood specimen / Unknown 07/07/2023 11:20 AM EDT 07/07/2023 11:28 AM EDT Yaz Molina MD LAB POINT OF CARE TE ST DOCKED DEVICE UNSOLICITED RESULTS [facility] [address] [place] [address] * GLUCOSE METER, POINT OF CARE (07/07/2023 6:35 AM EDT) Glucose Meter 106 70 - 120 mg/dL 07/07/2023 6:46 AM EDT [facility] Blood Whole blood specimen / Unknown 07/07/2023 6:35 AM EDT 07/07/2023 6:46 AM EDT Yaz Molina MD LAB POINT OF CARE TE ST DOCKED DEVICE UNSOLICITED RESULTS [facility] [address] [place] [address] * (ABNORMAL) DIFFERENTIAL, AUTOMATED (07/07/2023 4:59 AM EDT) WBC 2.72(L) 4.00 - 10.80 K/uL 07/07/2023 5:16 AM EDT [facility] Neutrophils % 74.2 40.0 - 75.0 % 07/07/2023 5:16 AM EDT [facility] Lymphocytes % 18.8 18.0 - 42.0 % 07/07/2023 5:16 AM EDT [facility] Monocytes % 2.2 1.0 - 11.0 % 07/07/2023 5:16 AM EDT [facility] Eosinophils % 3.7 0.0 - 6.0 % 07/07/2023 5:16 AM EDT [facility] Basophils % 0.4 0.0 - 2.0 % 07/07/2023 5:16 AM EDT [facility] Immature Granulocytes % 0.7 0.0 - 2.0 % 07/07/2023 5:16 AM EDT [facility] Absolute Neutrophils 2.02 1.80 - 7.70 K/uL 07/07/2023 5:16 AM EDT [facility] Absolute Lymphocytes 0.51(L) 1.00 - 4.80 K/ul 07/07/2023 5:16 AM EDT [facility] Absolute Monocytes 0.06 0.00 - 1.10 K/uL 07/07/2023 5:16 AM EDT [facility] Absolute Eosinophils 0.10 0.00 - 0.70 K/uL 07/07/2023 5:16 AM EDT [facility] Absolute Basophils 0.01 0.00 - 0.20 K/uL 07/07/2023 5:16 AM EDT [facility] Absolute Immature Granulocytes 0.02 0.00 - 0.20 K/uL 07/07/2023 5:16 AM EDT [facility] Blood Blood sample taken from central line / Unknown Venipuncture / Unknown 07/07/2023 4:59 AM EDT 07/07/2023 5:07 AM EDT Arnulfo Lowe PA-C LAB BLOOD EMA [facility] Organization Address City/State/ZIP Co de Phone Number [facility] [address] [place] [address] * (ABNORMAL) CBC (07/07/2023 4:59 AM EDT) WBC 2.72(L) 4.00 - 10.80 K/uL 07/07/2023 5:16 AM EDT [facility] RBC 3.58 4.50 - 5.25 M/uL 07/07/2023 5:16 AM EDT [facility] HGB 10.7(L) 14.0 - 16.8 g/dL 07/07/2023 5:16 AM EDT [facility] HCT 32.1(L) 40.0 - 48.4 % 07/07/2023 5:16 AM EDT [facility] MCV 89.7 82.0 - 99.5 fL 07/07/2023 5:16 AM EDT [facility] MCH 29.9 27.0 - 34.0 pg 07/07/2023 5:16 AM EDT [facility] MCHC 33.3 32.0 - 36.0 g/dL 07/07/2023 5:16 AM EDT [facility] RDW 12.5 11.5 - 15.5 % 07/07/2023 5:16 AM EDT [facility] PLT 184 140 - 400 K/uL 07/07/2023 5:16 AM EDT [facility] MPV 9.6 6.6 - 11.1 fL 07/07/2023 5:16 AM EDT [facility] nRBCs 0 <=0 /100 WBCs 07/07/2023 5:16 AM EDT [facility] Blood Blood sample taken from central line / Unknown Venipuncture / Unknown 07/07/2023 4:59 AM EDT 07/07/2023 5:07 AM EDT Arnulfo Lowe PA-C LAB BLOOD [facility] [address] [place] [address] * URIC ACID (07/07/2023 4:59 AM EDT) Uric Acid 4.5 3.4 - 7.0 mg/dL 07/07/2023 5:39 AM EDT LABORATORY [facility] Blood Blood sample taken from central line / Unknown Venipuncture / Unknown 07/07/2023 4:59 AM EDT 07/07/2023 5:07 AM EDT Kike Marquez PA-C LAB BLOOD ORDERABLES Performing Organization Address [facility]/ZIP Co de Phone Number LABORATORY [facility] [address] [place] [address] * PHOSPHORUS (07/07/2023 4:59 AM EDT) Phosphorus 2.9 2.5 - 4.8 mg/dL 07/07/2023 5:39 AM EDT LABORATORY [facility] Blood Blood sample taken from central line / Unknown Venipuncture / Unknown 07/07/2023 4:59 AM EDT 07/07/2023 5:07 AM EDT Kike Marquez PA-C LAB BLOOD ORDERABLES Performing Organization Address City/[facility]/ZIP Co de Phone Number LABORATORY [facility] [address] [place] [address] * LD (07/07/2023 4:59 AM EDT) LD 204 <=250 U/L 07/07/2023 5:3 9 AM EDT LABORATORY [facility] Blood Blood sample taken from central line / Unknown Venipuncture / Unknown 07/07/2023 4:59 AM EDT 07/07/2023 5:07 AM EDT Kike Marquez PA-C LAB BLOOD ORDERABLES Performing Organization Address City/[facility]/ZIP Co de Phone Number LABORATORY [facility] [address] [place] [address] * BASIC METABOLIC PANEL (07/07/2023 4:59 AM EDT) BUN 16 6 - 20 mg/dL 07/07/2023 5:39 AM EDT LABORATORY [facility] Creatinine 0.8 0.6 - 1.2 mg/dL 07/07/2023 5:39 AM EDT LAB[facility]ATORY [facility] Estimated Glomerular Filtration Rate >90 >=60 mL/min 07/07/2023 5:39 AM EDT LABORATORY [facility] Comment:eGFR is calculated b ased on the CKD-EPI 2020 equation Sodium 139 135 - 146 mmol/L 07/07/2023 5:39 AM EDT LABORATORY [facility] Potassium 3.9 3.5 - 5.1 mmol/L 07/07/2023 5:39 AM EDT LABORATORY [facility] Chloride 106 98 - 107 mmol/L 07/07/2023 5:39 AM EDT LAB[facility]ATORY [facility] CO2 25 22 - 32 mmol/L 07/07/2023 5:39 AM EDT LAB[facility]ATORY [facility] Anion Gap 8 7 - 15 mmol/L 07/07/2023 5:39 AM EDT LABORATORY [facility] Glucose 110 70 - 120 mg/dL 07/07/2023 5:39 AM EDT LABORATORY [facility] Calcium 9.4 8.4 - 10.2 mg/dL 07/07/2023 5:39 AM EDT LABORATORY C Blood Blood sample taken from central line / Unknown Venipuncture / Unknown 07/07/2023 4:59 AM EDT 07/07/2023 5:07 AM EDT Kike Marquez PA-C LAB BLOOD ORDERABLES Performing Organization Address [facility]/ZIP Co de Phone Number LABORATORY [facility] [address] [place] [address] * (ABNORMAL) HEPATIC FUNCTION PANEL (07/07/2023 4:59 AM EDT) Albumin 3.9 3.8 - 5.0 g/dL 07/07/2023 5:39 AM EDT LABORATORY [facility] AST 25 10 - 50 U/L 07/07/2023 5:39 AM EDT LABORATORY [facility] Alkaline Phosphatase 70 35 - 130 U/L 07/07/2023 5:39 AM EDT LABORATORY [facility] ALT 61(H) 10 - 50 U/L 07/07/2023 5:39 AM EDT LABORATORY [facility] Bilirubin, Total 0.3 <=1.2 mg/dL 07/07/2023 5:39 AM EDT LABORATORY [facility] Bilirubin, Direct <0.2 0.0 - 0.3 mg/dL 07/07/2023 5:39 AM EDT LAB[facility]ATORY [facility] Protein 6.4 6.0 - 8.3 g/dL 07/07/2023 5:39 AM EDT LABORATORY [facility] Blood Blood sample taken from central line / Unknown Venipuncture / Unknown 07/07/2023 4:59 AM EDT 07/07/2023 5:07 AM EDT Pepe Salgado PA-C LAB BLOOD [facility] [address] [place] [address] * MAGNESIUM (07/07/2023 4:59 AM EDT) Pathologist [facility] Magnesium 2.3 1.5 - 2.6 mg/dL 07/07/2023 5:39 AM EDT LABORATORY [facility] Blood Blood sample taken from central line / Unknown Venipuncture / Unknown 07/07/2023 4:59 AM EDT 07/07/2023 5:07 AM EDT Mnua Solitario DO LAB BLOOD ORDERABLES LABORATORY [facility] [address] [place] [address] * TROPONIN T, HIGH SENSITIVITY (07/07/2023 4:59 AM EDT) Troponin T, High Sensitivity <6 <=22 ng/L 07/07/2023 5:39 AM EDT LABORATORY [facility] Blood Blood sample taken from central line / Unknown Venipuncture / Unknown 07/07/2023 4:59 AM EDT 07/07/2023 5:07 AM EDT Kike Marquez PA-C LAB BLOOD ORDERABLES LABORATORY [facility] [address] [place] [address] * (ABNORMAL) GLUCOSE METER, POINT OF CARE (07/06/2023 9:07 PM EDT) Glucose Meter 121(H) 70 - 120 mg/dL 07/06/2023 9:13 PM EDT [facility] Blood Whole blood specimen / Unknown 07/06/2023 9:07 PM EDT 07/06/2023 9:13 PM EDT Yaz Molina MD LAB POINT OF CARE TE ST DOCKED DEVICE UNSOLICITED RESULTS Performing Organization Address City/[facility]/ZIP Co de Phone Number [facility] [address] [place] [address] * GLUCOSE METER, POINT OF CARE (07/06/2023 4:21 PM EDT) Glucose Meter 120 70 - 120 mg/dL 07/06/2023 4:26 PM EDT [facility] Blood Whole blood specimen / Unknown 07/06/2023 4:21 PM EDT 07/06/2023 4:25 PM EDT Yaz Molina MD LAB POINT OF CARE TE ST DOCKED DEVICE UNSOLICITED RESULTS Performing Organization Address City/[facility]/ZIP Co de Phone Number [facility] [address] [place] [address] * XR CHEST 1 VIEW (07/06/2023 3:08 PM EDT) Anatomical Region Laterality Modality Chest Computed Radiogr aphy 07/06/2023 3:13 PM EDT Impressions 07/06/2023 3:11 PM EDT IMPRESSION Left-sided infiltrate, compatible with pneumonia. Narrative 07/06/2023 3:11 PM EDT EXAM XR CHEST 1 VIEW- 07/06/2023 3:08 pm HISTORY "chest pain" TECHNIQUE Single AP portable view of the chest was obtained. COMPARISON 06/25/2023 FINDINGS A right PICC extends into the cavoatrial junction. Infiltrate in the left mid to lower lung. No pleural effusion or pneumothorax. Procedure Note Luis Miguel Batres MD - 07/06/2023 EXAM XR CHEST 1 VIEW- 07/06/2023 3:08 pm HISTORY "chest pain" TECHNIQUE Single AP portable view of the chest was obtained. COMPARISON 06/25/2023 FINDINGS A right PICC extends into the cavoatrial junction. Infiltrate in the left mid to lower lung. No pleural effusion orpneumothorax. IMPRESSION IMPRESSION Left-sided infiltrate, compatible with pneumonia. Kike DUKES-C RADIOLOGY (RAD GENER AL) * GLUCOSE METER, POINT OF CARE (07/06/2023 11:14 AM EDT) Glucose Meter 106 70 - 120 mg/dL 07/06/2023 11:22 AM EDT [facility] Blood Whole blood specimen / Unknown 07/06/2023 11:14 AM EDT 07/06/2023 11:22 AM EDT Yaz Molina MD LAB POINT OF CARE TE ST DOCKED DEVICE UNSOLICITED RESULTS [facility] [address] [place] [address] * GLUCOSE METER, POINT OF CARE (07/06/2023 6:37 AM EDT) Glucose Meter 112 70 - 120 mg/dL 07/06/2023 6:51 AM EDT [facility] Blood Whole blood specimen / Unknown 07/06/2023 6:37 AM EDT 07/06/2023 6:51 AM EDT Yaz Molina MD LAB POINT OF CARE TE ST DOCKED DEVICE UNSOLICITED RESULTS [facility] [address] [place] [address] * TROPONIN T, HIGH SENSITIVITY (07/06/2023 3:22 AM EDT) Pathologist [facility] Troponin T, High Sensitivity <6 <=22 ng/L 07/06/2023 2:57 PM EDT LAB[facility]ATORY [facility] Blood Blood sample taken from central line / Unknown Venipuncture / Unknown 07/06/2023 3:22 AM EDT 07/06/2023 3:28 AM EDT Kike Marquez PA-C LAB BLOOD ORDERABLES Performing Organization Address City/[facility]/ZIP Co de Phone Number LABORATORY [facility] [address] [place] [address] * (ABNORMAL) DIFFERENTIAL, AUTOMATED (07/06/2023 3:22 AM EDT) Pathologist [facility] WBC 4.87 4.00 - 10.80 K/uL 07/06/2023 3:39 AM EDT LAB[facility]ATORY [facility] Neutrophils % 76.3(H) 40.0 - 75.0 % 07/06/2023 3:39 AM EDT LAB[facility]ORY [facility] Lymphocytes % 16.0(L) 18.0 - 42.0 % 07/06/2023 3:39 AM EDT LAB[facility]ORY [facility] Monocytes % 4.3 1.0 - 11.0 % 07/06/2023 3:39 AM EDT LAB[facility]ORY [facility] Eosinophils % 1.8 0.0 - 6.0 % 07/06/2023 3:39 AM EDT [facility] Basophils % 0.2 0.0 - 2.0 % 07/06/2023 3:39 AM EDT LAB[facility]ORY [facility] Immature Granulocytes % 1.4 0.0 - 2.0 % 07/06/2023 3:39 AM EDT LAB[facility]ORY [facility] Absolute Neutrophils 3.71 1.80 - 7.70 K/uL 07/06/2023 3:39 AM EDT LAB[facility]ATORY [facility] Absolute Lymphocytes 0.78(L) 1.00 - 4.80 K/ul 07/06/2023 3:39 AM EDT LAB[facility]ATORY [facility] Absolute Monocytes 0.21 0.00 - 1.10 K/uL 07/06/2023 3:39 AM EDT LAB[facility]ATORY [facility] Absolute Eosinophils 0.09 0.00 - 0.70 K/uL 07/06/2023 3:39 AM EDT LAB[facility] Absolute Basophils 0.01 0.00 - 0.20 K/uL 07/06/2023 3:39 AM EDT LAB[facility]ORY [facility] Absolute Immature Granulocytes 0.07 0.00 - 0.20 K/uL 07/06/2023 3:39 AM EDT LAB[facility]ATORY [facility] Blood Blood sample taken from central line / Unknown Venipuncture / Unknown 07/06/2023 3:22 AM EDT 07/06/2023 3:28 AM EDT Arnulfo Lowe PA-C LAB BLOOD [facility] Organization Address City/State/ZIP Co de Phone Number LABORATORY [facility] [address] [place] [address] * (ABNORMAL) CBC (07/06/2023 3:22 AM EDT) WBC 4.87 4.00 - 10.80 K/uL 07/06/2023 3:39 AM EDT LAB[facility]ATORY [facility] RBC 3.46 4.50 - 5.25 M/uL 07/06/2023 3:39 AM EDT LAB[facility]ATORY [facility] HGB 10.4(L) 14.0 - 16.8 g/dL 07/06/2023 3:39 AM EDT LAB[facility]ORY [facility] HCT 30.9(L) 40.0 - 48.4 % 07/06/2023 3:39 AM EDT LAB[facility]ATORY [facility] MCV 89.3 82.0 - 99.5 fL 07/06/2023 3:39 AM EDT LAB[facility]ORY [facility] MCH 30.1 27.0 - 34.0 pg 07/06/2023 3:39 AM EDT LAB[facility]ORY [facility] MCHC 33.7 32.0 - 36.0 g/dL 07/06/2023 3:39 AM EDT LABORATORY [facility] RDW 12.7 11.5 - 15.5 % 07/06/2023 3:39 AM EDT LABORATORY [facility] PLT 179 140 - 400 K/uL 07/06/2023 3:39 AM EDT LABORATORY [facility] MPV 9.8 6.6 - 11.1 fL 07/06/2023 3:39 AM EDT LABORATORY [facility] nRBCs 0 <=0 /100 WBCs 07/06/2023 3:39 AM EDT LABORATORY [facility] Blood Blood sample taken from central line / Unknown Venipuncture / Unknown 07/06/2023 3:22 AM EDT 07/06/2023 3:28 AM EDT Arnulfo Lowe PA-C LAB BLOOD ORDE RABLES Performing Organization Address City/[facility] Co de Phone Number LABORATORY [facility] [address] [place] [address] * URIC ACID (07/06/2023 3:22 AM EDT) Uric Acid 4.2 3.4 - 7.0 mg/dL 07/06/2023 4:01 AM EDT LABORATORY [facility] Blood Blood sample taken from central line / Unknown Venipuncture / Unknown 07/06/2023 3:22 AM EDT 07/06/2023 3:28 AM EDT Kike Marquez PA-C LAB BLOOD ORDERABLES Performing Organization Address City/[facility] Co de Phone Number LABORATORY [facility] [address] [place] [address] * PHOSPHORUS (07/06/2023 3:22 AM EDT) Phosphorus 4.6 2.5 - 4.8 mg/dL 07/06/2023 4:01 AM EDT LABORATORY [facility] Blood Blood sample taken from central line / Unknown Venipuncture / Unknown 07/06/2023 3:22 AM EDT 07/06/2023 3:28 AM EDT Kike Man Alma DUKES-C LAB BLOOD ORDERABLES Performing Organization Address City/[facility]/ZIP Co de Phone Number LABORATORY [facility] [address] [place] [address] * LD (07/06/2023 3:22 AM EDT) LD 234 <=250 U/L 07/06/2023 4:0 1 AM EDT LAB[facility]ATORY [facility] Blood Blood sample taken from central line / Unknown Venipuncture / Unknown 07/06/2023 3:22 AM EDT 07/06/2023 3:28 AM EDT Kike Marquez ERNST-C LAB BLOOD ORDERABLES Performing Organization Address [facility] Co de Phone Number LABORATORY [facility] [address] [place] [address] * (ABNORMAL) BASIC METABOLIC PANEL (07/06/2023 3:22 AM EDT) BUN 21(H) 6 - 20 mg/dL 07/06/2023 4:01 AM EDT LAB[facility]ATORY [facility] Creatinine 0.8 0.6 - 1.2 mg/dL 07/06/2023 4:01 AM EDT LAB[facility]ATORY [facility] Estimated Glomerular Filtration Rate >90 >=60 mL/min 07/06/2023 4:01 AM EDT LAB[facility]ATORY [facility] Comment:eGFR is calculated b ased on the CKD-EPI 2020 equation Sodium 137 135 - 146 mmol/L 07/06/2023 4:01 AM EDT LAB[facility]ATORY [facility] Potassium 3.6 3.5 - 5.1 mmol/L 07/06/2023 4:01 AM EDT LAB[facility]ATORY [facility] Chloride 102 98 - 107 mmol/L 07/06/2023 4:01 AM EDT [facility] CO2 26 22 - 32 mmol/L 07/06/2023 4:01 AM EDT [facility] Anion Gap 9 7 - 15 mmol/L 07/06/2023 4:01 AM EDT LAB[facility]ATORY [facility] Glucose 106 70 - 120 mg/dL 07/06/2023 4:01 AM EDT LAB[facility]ATORY [facility] Calcium 9.1 8.4 - 10.2 mg/dL 07/06/2023 4:01 AM EDT LABORATORY C Blood Blood sample taken from central line / Unknown Venipuncture / Unknown 07/06/2023 3:22 AM EDT 07/06/2023 3:28 AM EDT Kike Marquez PA-C LAB BLOOD ORDERABLES Performing Organization Address [facility]/ZIP Co de Phone Number LABORATORY [facility] [address] [place] [address] * (ABNORMAL) HEPATIC FUNCTION PANEL (07/06/2023 3:22 AM EDT) Albumin 3.7(L) 3.8 - 5.0 g/dL 07/06/2023 4:01 AM EDT LAB[facility]ATORY [facility] AST 21 10 - 50 U/L 07/06/2023 4:01 AM EDT LAB[facility]ATORY [facility] Alkaline Phosphatase 62 35 - 130 U/L 07/06/2023 4:01 AM EDT LAB[facility] ALT 51(H) 10 - 50 U/L 07/06/2023 4:01 AM EDT LAB[facility] Bilirubin, Total 0.4 <=1.2 mg/dL 07/06/2023 4:01 AM EDT LAB[facility] Bilirubin, Direct <0.2 0.0 - 0.3 mg/dL 07/06/2023 4:01 AM EDT LAB[facility] Protein 5.9(L) 6.0 - 8.3 g/dL 07/06/2023 4:01 AM EDT LABORATORY [facility] Blood Blood sample taken from central line / Unknown Venipuncture / Unknown 07/06/2023 3:22 AM EDT 07/06/2023 3:28 AM EDT Pepe Salgado PA-C LAB BLOOD ORDE RABKATIE Performing Organization Address City/[facility]/ZIP Co de Phone Number LABORATORY [facility] [address] [place] [address] * MAGNESIUM (07/06/2023 3:22 AM EDT) Magnesium 2.3 1.5 - 2.6 mg/dL 07/06/2023 4:01 AM EDT LABORATORY [facility] Blood Blood sample taken from central line / Unknown Venipuncture / Unknown 07/06/2023 3:22 AM EDT 07/06/2023 3:28 AM EDT Muna Solitario DO LAB BLOOD ORDERABLES LABORATORY [facility] [address] [place] [address] * GLUCOSE METER, POINT OF CARE (07/05/2023 9:34 PM EDT) Glucose Meter 109 70 - 120 mg/dL 07/05/2023 9:41 PM EDT [facility] Blood Whole blood specimen / Unknown 07/05/2023 9:34 PM EDT 07/05/2023 9:40 PM EDT Yaz Molina MD LAB POINT OF CARE TE ST DOCKED DEVICE UNSOLICITED RESULTS [facility] [address] [place] [address] * GLUCOSE METER, POINT OF CARE (07/05/2023 4:03 PM EDT) Glucose Meter 87 70 - 120 mg/dL 07/05/2023 4:29 PM EDT [facility] Blood Whole blood specimen / Unknown 07/05/2023 4:03 PM EDT 07/05/2023 4:29 PM EDT Yaz Molina MD LAB POINT OF CARE TE ST DOCKED DEVICE UNSOLICITED RESULTS [facility] [address] [place] [address] * GLUCOSE METER, POINT OF CARE (07/05/2023 11:09 AM EDT) Glucose Meter 89 70 - 120 mg/dL 07/05/2023 11:28 AM EDT [facility] Blood Whole blood specimen / Unknown 07/05/2023 11:09 AM EDT 07/05/2023 11:28 AM EDT Yaz Molina MD LAB POINT OF CARE TE ST DOCKED DEVICE UNSOLICITED RESULTS Performing Organization Address City/[facility] Co de Phone Number [facility] [address] [place] [address] * GLUCOSE METER, POINT OF CARE (07/05/2023 7:02 AM EDT) Glucose Meter 90 70 - 120 mg/dL 07/05/2023 7:05 AM EDT [email or web address] [employer] [facility] Blood Whole blood specimen / Unknown 07/05/2023 7:02 AM EDT 07/05/2023 7:05 AM EDT Yaz Molina MD LAB POINT OF CARE TE ST DOCKED DEVICE UNSOLICITED RESULTS Performing Organization Address City/[facility] Co de Phone Number [facility] [address] [place] [address] * (ABNORMAL) DIFFERENTIAL, AUTOMATED (07/05/2023 4:24 AM EDT) WBC 3.51(L) 4.00 - 10.80 K/uL 07/05/2023 4:40 AM EDT LAB[facility]ATORY [facility] Neutrophils % 64.9 40.0 - 75.0 % 07/05/2023 4:40 AM EDT LAB[facility]ORY [facility] Lymphocytes % 23.6 18.0 - 42.0 % 07/05/2023 4:40 AM EDT LAB[facility]ORY [facility] Monocytes % 7.7 1.0 - 11.0 % 07/05/2023 4:40 AM EDT LAB[facility] Eosinophils % 2.6 0.0 - 6.0 % 07/05/2023 4:40 AM EDT LAB[facility]ORY [facility] Basophils % 0.3 0.0 - 2.0 % 07/05/2023 4:40 AM EDT LAB[facility]ATORY [facility] Immature Granulocytes % 0.9 0.0 - 2.0 % 07/05/2023 4:40 AM EDT LAB[facility]ORY [facility] Absolute Neutrophils 2.28 1.80 - 7.70 K/uL 07/05/2023 4:40 AM EDT LAB[facility]ATORY [facility] Absolute Lymphocytes 0.83(L) 1.00 - 4.80 K/ul 07/05/2023 4:40 AM EDT LAB[facility]ATORY [facility] Absolute Monocytes 0.27 0.00 - 1.10 K/uL 07/05/2023 4:40 AM EDT LAB[facility]ORY [facility] Absolute Eosinophils 0.09 0.00 - 0.70 K/uL 07/05/2023 4:40 AM EDT LAB[facility] Absolute Basophils 0.01 0.00 - 0.20 K/uL 07/05/2023 4:40 AM EDT LAB[facility]ORY [facility] Absolute Immature Granulocytes 0.03 0.00 - 0.20 K/uL 07/05/2023 4:40 AM EDT LAB[facility]ATORY [facility] Blood Blood sample taken from central line / Unknown Venipuncture / Unknown 07/05/2023 4:24 AM EDT 07/05/2023 4:32 AM EDT Arnulfo Lowe PA-C [facility] Organization Address City/State/ZIP Co de Phone Number LABORATORY [facility] [address] [place] [address] * (ABNORMAL) CBC (07/05/2023 4:24 AM EDT) WBC 3.51(L) 4.00 - 10.80 K/uL 07/05/2023 4:40 AM EDT LAB[facility]ATORY [facility] RBC 3.74 4.50 - 5.25 M/uL 07/05/2023 4:40 AM EDT LAB[facility]ORY [facility] HGB 11.1(L) 14.0 - 16.8 g/dL 07/05/2023 4:40 AM EDT LAB[facility] HCT 33.7(L) 40.0 - 48.4 % 07/05/2023 4:40 AM EDT LAB[facility] MCV 90.1 82.0 - 99.5 fL 07/05/2023 4:40 AM EDT LAB[facility] MCH 29.7 27.0 - 34.0 pg 07/05/2023 4:40 AM EDT LAB[facility] MCHC 32.9 32.0 - 36.0 g/dL 07/05/2023 4:40 AM EDT LAB[facility]ORY [facility] RDW 12.6 11.5 - 15.5 % 07/05/2023 4:40 AM EDT LAB[facility]ORY [facility] PLT 209 140 - 400 K/uL 07/05/2023 4:40 AM EDT [facility] MPV 9.7 6.6 - 11.1 fL 07/05/2023 4:40 AM EDT LAB[facility]ORY [facility] nRBCs 0 <=0 /100 WBCs 07/05/2023 4:40 AM EDT LABORATORY [facility] Blood Blood sample taken from central line / Unknown Venipuncture / Unknown 07/05/2023 4:24 AM EDT 07/05/2023 4:32 AM EDT Arnulfo Lowe PA-C LAB BLOOD EMA [facility] Organization Address City/State/ZIP Co de Phone Number LABORATORY [facility] [address] [place] [address] * (ABNORMAL) BASIC METABOLIC PANEL (07/05/2023 4:24 AM EDT) BUN 21(H) 6 - 20 mg/dL 07/05/2023 5:03 AM EDT LAB[facility] Creatinine 0.8 0.6 - 1.2 mg/dL 07/05/2023 5:03 AM EDT LAB[facility]ORY [facility] Estimated Glomerular Filtration Rate >90 >=60 mL/min 07/05/2023 5:03 AM EDT LAB[facility] Comment:eGFR is calculated b ased on the CKD-EPI 2020 equation Sodium 138 135 - 146 mmol/L 07/05/2023 5:03 AM EDT LAB[facility] Potassium 3.7 3.5 - 5.1 mmol/L 07/05/2023 5:03 AM EDT [facility] Chloride 104 98 - 107 mmol/L 07/05/2023 5:03 AM EDT [facility] CO2 24 22 - 32 mmol/L 07/05/2023 5:03 AM EDT [facility] Anion Gap 10 7 - 15 mmol/L 07/05/2023 5:03 AM EDT LAB[facility] Glucose 122(H) 70 - 120 mg/dL 07/05/2023 5:03 AM EDT LAB[facility] Calcium 9.2 8.4 - 10.2 mg/dL 07/05/2023 5:03 AM EDT LABORATORY C Blood Blood sample taken from central line / Unknown Venipuncture / Unknown 07/05/2023 4:24 AM EDT 07/05/2023 4:32 AM EDT Kike Marquez PA-C LAB BLOOD ORDERABLES Performing Organization Address [facility] Co de Phone Number LABORATORY [facility] [address] [place] [address] * (ABNORMAL) URIC ACID (07/05/2023 4:24 AM EDT) Uric Acid 3.1(L) 3.4 - 7.0 mg/dL 07/05/2023 5:03 AM EDT LABORATORY C Blood Blood sample taken from central line / Unknown Venipuncture / Unknown 07/05/2023 4:24 AM EDT 07/05/2023 4:32 AM EDT Kike Marquez PA-C LAB BLOOD ORDERABLES Performing Organization Address [email or web address]] de Phone Number LABORATORY [facility] [address] [place] [address] * PHOSPHORUS (07/05/2023 4:24 AM EDT) Phosphorus 4.1 2.5 - 4.8 mg/dL 07/05/2023 5:03 AM EDT LABORATORY [facility] Blood Blood sample taken from central line / Unknown Venipuncture / Unknown 07/05/2023 4:24 AM EDT 07/05/2023 4:32 AM EDT Kike Aler PA-C LAB BLOOD ORDERABLES Performing Organization Address [facility] Co de Phone Number LABORATORY [facility] [address] [place] [address] * LD (07/05/2023 4:24 AM EDT) LD 202 <=250 U/L 07/05/2023 5:0 3 AM EDT [facility]ORY [facility] Blood Blood sample taken from central line / Unknown Venipuncture / Unknown 07/05/2023 4:24 AM EDT 07/05/2023 4:32 AM EDT Kike Marquez PA-C LAB BLOOD ORDERABLES Performing Organization Address [facility] Co de Phone Number LAB[facility]ATORY [facility] [address] [place] [address] * (ABNORMAL) HEPATIC FUNCTION PANEL (07/05/2023 4:24 AM EDT) Pathologist [facility] Albumin 3.7(L) 3.8 - 5.0 g/dL 07/05/2023 5:03 AM EDT LAB[facility] AST 15 10 - 50 U/L 07/05/2023 5:03 AM EDT [facility] Alkaline Phosphatase 61 35 - 130 U/L 07/05/2023 5:03 AM EDT [facility] ALT 48 10 - 50 U/L 07/05/2023 5:03 AM EDT [facility] Bilirubin, Total 0.3 <=1.2 mg/dL 07/05/2023 5:03 AM EDT [facility] Bilirubin, Direct <0.2 0.0 - 0.3 mg/dL 07/05/2023 5:03 AM EDT [facility] Protein 6.1 6.0 - 8.3 g/dL 07/05/2023 5:03 AM EDT LABORATORY C Blood Blood sample taken from central line / Unknown Venipuncture / Unknown 07/05/2023 4:24 AM EDT 07/05/2023 4:32 AM EDT Pepe Salgado PA-C LAB BLOOD ORDE RABLES Performing Organization Address [facility] Co de Phone Number LABORATORY [facility] [address] [place] [address] * MAGNESIUM (07/05/2023 4:24 AM EDT) Magnesium 2.1 1.5 - 2.6 mg/dL 07/05/2023 5:03 AM EDT LABORATORY C Blood Blood sample taken from central line / Unknown Venipuncture / Unknown 07/05/2023 4:24 AM EDT 07/05/2023 4:32 AM EDT Muna Solitario DO LAB BLOOD ORDERABLES Performing Organization Address City/State/[facility] Co de Phone Number LABORATORY [facility] [address] [place] [address] * (ABNORMAL) BASIC METABOLIC PANEL (07/04/2023 9:52 PM EDT) BUN 20 6 - 20 mg/dL 07/04/2023 10:18 PM EDT LABORATORY [facility] Creatinine 1.1 0.6 - 1.2 mg/dL 07/04/2023 10:18 PM EDT LABORATORY [facility] Estimated Glomerular Filtration Rate 90 >=60 mL/min 07/04/2023 10:18 PM EDT LABORATORY [facility] Comment:eGFR is calculated b ased on the CKD-EPI 2020 equation Sodium 139 135 - 146 mmol/L 07/04/2023 10:18 PM EDT LABORATORY C Potassium 4.3 3.5 - 5.1 mmol/L 07/04/2023 10:18 PM EDT LABORATORY C Chloride 105 98 - 107 mmol/L 07/04/2023 10:18 PM EDT LABORATORY C CO2 21(L) 22 - 32 mmol/L 07/04/2023 10:18 PM EDT LABORATORY C Anion Gap 13 7 - 15 mmol/L 07/04/2023 10:18 PM EDT LABORATORY C Glucose 113 70 - 120 mg/dL 07/04/2023 10:18 PM EDT LABORATORY C Calcium 9.2 8.4 - 10.2 mg/dL 07/04/2023 10:18 PM EDT LABORATORY [facility] Blood Venous blood specimen / Unknown Venipuncture / Unknown 07/04/2023 9:52 PM EDT 07/04/2023 9:59 PM EDT Kike Aljhonathan DUKES-C LAB BLOOD ORDERABLES Performing Organization Address [facility]/ZIP Co de Phone Number LABORATORY [facility] [address] [place] [address] * (ABNORMAL) URIC ACID (07/04/2023 9:52 PM EDT) Uric Acid 3.1(L) 3.4 - 7.0 mg/dL 07/04/2023 10:18 PM EDT LAB[facility]ORY [facility] Blood Venous blood specimen / Unknown Venipuncture / Unknown 07/04/2023 9:52 PM EDT 07/04/2023 9:59 PM EDT Kike Aler PA-C LAB BLOOD ORDERABLES Performing Organization Address [facility] Co de Phone Number LABORATORY [facility] [address] [place] [address] * PHOSPHORUS (07/04/2023 9:52 PM EDT) Phosphorus 4.3 2.5 - 4.8 mg/dL 07/04/2023 10:18 PM EDT LAB[facility]ORY [facility] Blood Venous blood specimen / Unknown Venipuncture / Unknown 07/04/2023 9:52 PM EDT 07/04/2023 9:59 PM EDT Kike Man Alma PA-C LAB BLOOD ORDERABLES Performing Organization Address City/[facility]/ZIP Co de Phone Number LABORATORY [facility] [address] [place] [address] * LD (07/04/2023 9:52 PM EDT) LD 209 <=250 U/L 07/04/2023 10:18 PM EDT LAB[facility] Blood Venous blood specimen / Unknown Venipuncture / Unknown 07/04/2023 9:52 PM EDT 07/04/2023 9:59 PM EDT Kike Aler PA-C LAB BLOOD ORDERABLES LABORATORY [facility] [address] [place] [address] * GLUCOSE METER, POINT OF CARE (07/04/2023 9:47 PM EDT) Glucose Meter 115 70 - 120 mg/dL 07/04/2023 10:08 PM EDT [facility] Blood Whole blood specimen / Unknown 07/04/2023 9:47 PM EDT 07/04/2023 10:08 PM EDT Yaz Molina MD LAB POINT OF CARE TE ST DOCKED DEVICE UNSOLICITED RESULTS Performing Organization Address [facility]/ZIP Co de Phone Number [facility] [address] [place] [address] * GLUCOSE METER, POINT OF CARE (07/04/2023 4:18 PM EDT) Glucose Meter 107 70 - 120 mg/dL 07/04/2023 4:25 PM EDT [facility] Blood Whole blood specimen / Unknown 07/04/2023 4:18 PM EDT 07/04/2023 4:25 PM EDT Yaz Molina MD LAB POINT OF CARE TE ST DOCKED DEVICE UNSOLICITED RESULTS Performing Organization Address City/[facility]/ZIP Co de Phone Number [facility] [address] [place] [address] * (ABNORMAL) URIC ACID (07/04/2023 1:26 PM EDT) Uric Acid 2.6(L) 3.4 - 7.0 mg/dL 07/04/2023 2:13 PM EDT LABORATORY [facility] Blood Venous blood specimen / Unknown Venipuncture / Unknown 07/04/2023 1:26 PM EDT 07/04/2023 1:41 PM EDT Kike Marquez PA-C LAB BLOOD ORDERABLES LABORATORY [facility] [address] [place] [address] * LD (07/04/2023 1:26 PM EDT) [facility] LD 211 <=250 U/L 07/04/2023 2:1 3 PM EDT LABORATORY [facility] Blood Venous blood specimen / Unknown Venipuncture / Unknown 07/04/2023 1:26 PM EDT 07/04/2023 1:41 PM EDT Kike Marquez PA-C LAB BLOOD ORDERABLES LABORATORY [facility] [address] [place] [address] * PHOSPHORUS (07/04/2023 1:26 PM EDT) [facility] Phosphorus 3.3 2.5 - 4.8 mg/dL 07/04/2023 2:13 PM EDT LABORATORY [facility] Blood Venous blood specimen / Unknown Venipuncture / Unknown 07/04/2023 1:26 PM EDT 07/04/2023 1:41 PM EDT Kike Marquez PA-C LAB BLOOD ORDERABLES LABORATORY [facility] [address] [place] [address] * (ABNORMAL) BASIC METABOLIC PANEL (07/04/2023 1:26 PM EDT) [facility] BUN 16 6 - 20 mg/dL 07/04/2023 2:13 PM EDT LABORATORY [facility] Creatinine 0.8 0.6 - 1.2 mg/dL 07/04/2023 2:13 PM EDT LABORATORY [facility] Estimated Glomerular Filtration Rate >90 >=60 mL/min 07/04/2023 2:13 PM EDT LABORATORY [facility] Comment:eGFR is calculated b ased on the CKD-EPI 2020 equation Sodium 141 135 - 146 mmol/L 07/04/2023 2:13 PM EDT LABORATORY [facility] Potassium 3.3(L) 3.5 - 5.1 mmol/L 07/04/2023 2:13 PM EDT LAB[facility]ATORY [facility] Chloride 109(H) 98 - 107 mmol/L 07/04/2023 2:13 PM EDT [facility] CO2 23 22 - 32 mmol/L 07/04/2023 2:13 PM EDT [facility] Anion Gap 9 7 - 15 mmol/L 07/04/2023 2:13 PM EDT LABORATORY C Glucose 102 70 - 120 mg/dL 07/04/2023 2:13 PM EDT LABORATORY C Calcium 7.9(L) 8.4 - 10.2 mg/dL 07/04/2023 2:13 PM EDT LABORATORY [facility] Blood Venous blood specimen / Unknown Venipuncture / Unknown 07/04/2023 1:26 PM EDT 07/04/2023 1:41 PM EDT Kike Marquez PA-C LAB BLOOD ORDERABLES LABORATORY [facility] [address] [place] [address] * GLUCOSE METER, POINT OF CARE (07/04/2023 11:19 AM EDT) Glucose Meter 95 70 - 120 mg/dL 07/04/2023 11:25 AM EDT [facility] [employer] [facility] Blood Whole blood specimen / Unknown 07/04/2023 11:19 AM EDT 07/04/2023 11:25 AM EDT Yaz Molina MD LAB POINT OF CARE TE ST DOCKED DEVICE UNSOLICITED RESULTS [facility] [address] [place] [address] * GLUCOSE METER, POINT OF CARE (07/04/2023 6:43 AM EDT) Glucose Meter 73 70 - 120 mg/dL 07/04/2023 6:50 AM EDT [facility] Blood Whole blood specimen / Unknown 07/04/2023 6:43 AM EDT 07/04/2023 6:50 AM EDT Yaz Molina MD LAB POINT OF CARE TE ST DOCKED DEVICE UNSOLICITED RESULTS [facility] [address] [place] [address] * (ABNORMAL) DIFFERENTIAL, AUTOMATED (07/04/2023 3:17 AM EDT) WBC 4.48 4.00 - 10.80 K/uL 07/04/2023 3:31 AM EDT [facility] Neutrophils % 65.9 40.0 - 75.0 % 07/04/2023 3:31 AM EDT [facility] Lymphocytes % 20.1 18.0 - 42.0 % 07/04/2023 3:31 AM EDT [facility] Monocytes % 9.8 1.0 - 11.0 % 07/04/2023 3:31 AM EDT [facility] Eosinophils % 3.1 0.0 - 6.0 % 07/04/2023 3:31 AM EDT [facility] Basophils % 0.2 0.0 - 2.0 % 07/04/2023 3:31 AM EDT [facility] Immature Granulocytes % 0.9 0.0 - 2.0 % 07/04/2023 3:31 AM EDT [facility] Absolute Neutrophils 2.95 1.80 - 7.70 K/uL 07/04/2023 3:31 AM EDT [facility] Absolute Lymphocytes 0.90(L) 1.00 - 4.80 K/ul 07/04/2023 3:31 AM EDT [facility] Absolute Monocytes 0.44 0.00 - 1.10 K/uL 07/04/2023 3:31 AM EDT [facility] Absolute Eosinophils 0.14 0.00 - 0.70 K/uL 07/04/2023 3:31 AM EDT [facility] Absolute Basophils 0.01 0.00 - 0.20 K/uL 07/04/2023 3:31 AM EDT [facility] Absolute Immature Granulocytes 0.04 0.00 - 0.20 K/uL 07/04/2023 3:31 AM EDT [facility] Blood Blood sample taken from central line / Unknown Venipuncture / Unknown 07/04/2023 3:17 AM EDT 07/04/2023 3:24 AM EDT Arnulfo Lowe PA-C LAB BLOOD EMA ROBLES [facility] Organization Address City/State/ZIP Co de Phone Number [facility]ATORY [facility] [address] [place] [address] * (ABNORMAL) CBC (07/04/2023 3:17 AM EDT) Pathologist [facility] WBC 4.48 4.00 - 10.80 K/uL 07/04/2023 3:31 AM EDT [facility] RBC 3.48 4.50 - 5.25 M/uL 07/04/2023 3:31 AM EDT [facility] HGB 10.4(L) 14.0 - 16.8 g/dL 07/04/2023 3:31 AM EDT [facility] HCT 31.4(L) 40.0 - 48.4 % 07/04/2023 3:31 AM EDT [facility] MCV 90.2 82.0 - 99.5 fL 07/04/2023 3:31 AM EDT [facility] MCH 29.9 27.0 - 34.0 pg 07/04/2023 3:31 AM EDT [facility] MCHC 33.1 32.0 - 36.0 g/dL 07/04/2023 3:31 AM EDT [facility] RDW 12.7 11.5 - 15.5 % 07/04/2023 3:31 AM EDT [facility] PLT 214 140 - 400 K/uL 07/04/2023 3:31 AM EDT [facility] MPV 9.7 6.6 - 11.1 fL 07/04/2023 3:31 AM EDT [facility] nRBCs 0 <=0 /100 WBCs 07/04/2023 3:31 AM EDT [facility] Blood Blood sample taken from central line / Unknown Venipuncture / Unknown 07/04/2023 3:17 AM EDT 07/04/2023 3:24 AM EDT Arnulfo Lowe PA-C LAB BLOOD ORDE RABLES Performing Organization Address City/[facility]/ZIP Co de Phone Number LABORATORY [facility] [address] [place] [address] * (ABNORMAL) URIC ACID (07/04/2023 3:17 AM EDT) Uric Acid 2.5(L) 3.4 - 7.0 mg/dL 07/04/2023 3:53 AM EDT [facility] Blood Blood sample taken from central line / Unknown Venipuncture / Unknown 07/04/2023 3:17 AM EDT 07/04/2023 3:24 AM EDT Kike Marquez PA-C LAB BLOOD ORDERABLES Performing Organization Address [facility] Co de Phone Number LABORATORY [facility] [address] [place] [address] * LD (07/04/2023 3:17 AM EDT) LD 178 <=250 U/L 07/04/2023 3:5 3 AM EDT LABORATORY C Blood Blood sample taken from central line / Unknown Venipuncture / Unknown 07/04/2023 3:17 AM EDT 07/04/2023 3:24 AM EDT Kike Marquez PA-C LAB BLOOD ORDERABLES Performing Organization Address [facility] Co de Phone Number LABORATORY [facility] [address] [place] [address] * PHOSPHORUS (07/04/2023 3:17 AM EDT) Phosphorus 3.6 2.5 - 4.8 mg/dL 07/04/2023 3:53 AM EDT [facility] Blood Blood sample taken from central line / Unknown Venipuncture / Unknown 07/04/2023 3:17 AM EDT 07/04/2023 3:24 AM EDT Kike H Alma PA-C LAB BLOOD ORDERABLES Performing Organization Address City/[facility]/ZIP Co de Phone Number LAB[facility]ATORY [facility] [address] [place] [address] * BASIC METABOLIC PANEL (07/04/2023 3:17 AM EDT) BUN 18 6 - 20 mg/dL 07/04/2023 3:53 AM EDT [facility] Creatinine 0.8 0.6 - 1.2 mg/dL 07/04/2023 3:53 AM EDT [facility] Estimated Glomerular Filtration Rate >90 >=60 mL/min 07/04/2023 3:53 AM EDT [facility] Comment:eGFR is calculated b ased on the CKD-EPI 2020 equation Sodium 140 135 - 146 mmol/L 07/04/2023 3:53 AM EDT [facility] Potassium 3.9 3.5 - 5.1 mmol/L 07/04/2023 3:53 AM EDT [facility] Chloride 107 98 - 107 mmol/L 07/04/2023 3:53 AM EDT [facility] CO2 24 22 - 32 mmol/L 07/04/2023 3:53 AM EDT [facility] Anion Gap 9 7 - 15 mmol/L 07/04/2023 3:53 AM EDT [facility] Glucose 96 70 - 120 mg/dL 07/04/2023 3:53 AM EDT [facility] Calcium 8.8 8.4 - 10.2 mg/dL 07/04/2023 3:53 AM EDT LABORATORY C Blood Blood sample taken from central line / Unknown Venipuncture / Unknown 07/04/2023 3:17 AM EDT 07/04/2023 3:24 AM EDT Kike Marquez PA-C LAB BLOOD ORDERABLES Performing Organization Address City/[facility] Co de Phone Number LABORATORY [facility] [address] [place] [address] * (ABNORMAL) HEPATIC FUNCTION PANEL (07/04/2023 3:17 AM EDT) Albumin 3.6(L) 3.8 - 5.0 g/dL 07/04/2023 3:53 AM EDT [facility] AST 18 10 - 50 U/L 07/04/2023 3:53 AM EDT [facility] Alkaline Phosphatase 58 35 - 130 U/L 07/04/2023 3:53 AM EDT [facility] ALT 57(H) 10 - 50 U/L 07/04/2023 3:53 AM EDT [facility] Bilirubin, Total 0.2 <=1.2 mg/dL 07/04/2023 3:53 AM EDT LAB[facility] Bilirubin, Direct <0.2 0.0 - 0.3 mg/dL 07/04/2023 3:53 AM EDT [facility] Protein 5.8(L) 6.0 - 8.3 g/dL 07/04/2023 3:53 AM EDT [facility] Blood Blood sample taken from central line / Unknown Venipuncture / Unknown 07/04/2023 3:17 AM EDT 07/04/2023 3:24 AM EDT Pepe Salgado PA-C LAB BLOOD ORDE RABKATIE LABORATORY [facility] [address] [place] [address] * MAGNESIUM (07/04/2023 3:17 AM EDT) Pathologist [facility] Magnesium 2.2 1.5 - 2.6 mg/dL 07/04/2023 3:53 AM EDT LABORATORY C Blood Blood sample taken from central line / Unknown Venipuncture / Unknown 07/04/2023 3:17 AM EDT 07/04/2023 3:24 AM EDT Muna Solitario DO LAB BLOOD ORDERABLES LABORATORY [facility] [address] [place] [address] * (ABNORMAL) URIC ACID (07/03/2023 10:53 PM EDT) Uric Acid 2.5(L) 3.4 - 7.0 mg/dL 07/03/2023 11:26 PM EDT [facility] Blood Venous blood specimen / Unknown Venipuncture / Unknown 07/03/2023 10:53 PM EDT 07/03/2023 10:58 PM EDT Kike Marquez PA-C LAB BLOOD ORDERABLES Performing Organization Address [facility] Co de Phone Number LAB[facility]ATORY [facility] [address] [place] [address] * (ABNORMAL) LD (07/03/2023 10:53 PM EDT) LD 252(H) <=250 U/L 07/03/2023 11:26 PM EDT LABORATORY [facility] Comment:Result may be falsel y elevated due to hemolysis. Blood Venous blood specimen / Unknown Venipuncture / Unknown 07/03/2023 10:53 PM EDT 07/03/2023 10:58 PM EDT Kike Marquez PA-C LAB BLOOD ORDERABLES Performing Organization Address [facility] Co de Phone Number LAB[facility]ATORY [facility] [address] [place] [address] * PHOSPHORUS (07/03/2023 10:53 PM EDT) Phosphorus 3.5 2.5 - 4.8 mg/dL 07/03/2023 11:26 PM EDT LABORATORY [facility] Blood Venous blood specimen / Unknown Venipuncture / Unknown 07/03/2023 10:53 PM EDT 07/03/2023 10:58 PM EDT Kike Marquez PA-C LAB BLOOD ORDERABLES Performing Organization Address [email or web address]] de Phone Number LABORATORY [facility] [address] [place] [address] * (ABNORMAL) BASIC METABOLIC PANEL (07/03/2023 10:53 PM EDT) BUN 18 6 - 20 mg/dL 07/03/2023 11:26 PM EDT LABORATORY [facility] Creatinine 0.8 0.6 - 1.2 mg/dL 07/03/2023 11:26 PM EDT LAB[facility]ORY [facility] Estimated Glomerular Filtration Rate >90 >=60 mL/min 07/03/2023 11:26 PM EDT [facility] Comment:eGFR is calculated b ased on the CKD-EPI 2020 equation Sodium 141 135 - 146 mmol/L 07/03/2023 11:26 PM EDT LAB[facility]ORY [facility] Potassium 3.9 3.5 - 5.1 mmol/L 07/03/2023 11:26 PM EDT LAB[facility]ORY [facility] Chloride 108(H) 98 - 107 mmol/L 07/03/2023 11:26 PM EDT LAB[facility] CO2 24 22 - 32 mmol/L 07/03/2023 11:26 PM EDT LAB[facility] Anion Gap 9 7 - 15 mmol/L 07/03/2023 11:26 PM EDT [facility] Glucose 99 70 - 120 mg/dL 07/03/2023 11:26 PM EDT LAB[facility] Calcium 8.8 8.4 - 10.2 mg/dL 07/03/2023 11:26 PM EDT [facility] Blood Venous blood specimen / Unknown Venipuncture / Unknown 07/03/2023 10:53 PM EDT 07/03/2023 10:58 PM EDT Kike Marquez PA-C LAB BLOOD ORDERABLES LABORATORY [facility] [address] [place] [address] * (ABNORMAL) GLUCOSE METER, POINT OF CARE (07/03/2023 9:23 PM EDT) [facility] Signature Glucose Meter 132(H) 70 - 120 mg/dL 07/03/2023 9:54 PM EDT [facility] Blood Whole blood specimen / Unknown 07/03/2023 9:23 PM EDT 07/03/2023 9:54 PM EDT Yaz Molina MD LAB POINT OF CARE TE ST DOCKED DEVICE UNSOLICITED RESULTS [facility] [address] [place] [address] * (ABNORMAL) GLUCOSE METER, POINT OF CARE (07/03/2023 4:13 PM EDT) Glucose Meter 157(H) 70 - 120 mg/dL 07/03/2023 4:19 PM EDT [facility] Blood Whole blood specimen / Unknown 07/03/2023 4:13 PM EDT 07/03/2023 4:19 PM EDT Yaz Molina MD LAB POINT OF CARE TE ST DOCKED DEVICE UNSOLICITED RESULTS [facility] [address] [place] [address] * (ABNORMAL) URIC ACID (07/03/2023 1:35 PM EDT) Pathologist [facility] Uric Acid 2.4(L) 3.4 - 7.0 mg/dL 07/03/2023 2:38 PM EDT LABORATORY [facility] Blood Blood sample taken from central line / Unknown Venipuncture / Unknown 07/03/2023 1:35 PM EDT 07/03/2023 1:49 PM EDT Kike DUKES-C LAB BLOOD ORDERABLES Performing Organization Address City/[facility]/ZIP Co de Phone Number LABORATORY [place] [address] [place] [address] * LD (07/03/2023 1:35 PM EDT) Pathologist [facility] LD 227 <=250 U/L 07/03/2023 2:3 8 PM EDT LABORATORY [facility] Blood Blood sample taken from central line / Unknown Venipuncture / Unknown 07/03/2023 1:35 PM EDT 07/03/2023 1:49 PM EDT Kike Marquez PA-C LAB BLOOD ORDERABLES Performing Organization Address City/[facility]/ZIP Co de Phone Number LABORATORY [place] [address] [place] [address] * PHOSPHORUS (07/03/2023 1:35 PM EDT) Phosphorus 3.7 2.5 - 4.8 mg/dL 07/03/2023 2:38 PM EDT [facility]ORY [facility] Blood Blood sample taken from central line / Unknown Venipuncture / Unknown 07/03/2023 1:35 PM EDT 07/03/2023 1:49 PM EDT Kike Marquez PA-C LAB BLOOD ORDERABLES LABORATORY [facility] [address] [place] [address] * BASIC METABOLIC PANEL (07/03/2023 1:35 PM EDT) BUN 17 6 - 20 mg/dL 07/03/2023 2:38 PM EDT LAB[facility]ORY [facility] Creatinine 0.7 0.6 - 1.2 mg/dL 07/03/2023 2:38 PM EDT LAB[facility]ORY [facility] Estimated Glomerular Filtration Rate >90 >=60 mL/min 07/03/2023 2:38 PM EDT LAB[facility] Comment:eGFR is calculated b ased on the CKD-EPI 2020 equation Sodium 139 135 - 146 mmol/L 07/03/2023 2:38 PM EDT LAB[facility]ORY [facility] Potassium 3.6 3.5 - 5.1 mmol/L 07/03/2023 2:38 PM EDT LAB[facility] Chloride 105 98 - 107 mmol/L 07/03/2023 2:38 PM EDT LAB[facility] CO2 24 22 - 32 mmol/L 07/03/2023 2:38 PM EDT [facility] Anion Gap 10 7 - 15 mmol/L 07/03/2023 2:38 PM EDT [facility] Glucose 120 70 - 120 mg/dL 07/03/2023 2:38 PM EDT LAB[facility] Calcium 8.9 8.4 - 10.2 mg/dL 07/03/2023 2:38 PM EDT LAB[facility]ORY [facility] Blood Blood sample taken from central line / Unknown Venipuncture / Unknown 07/03/2023 1:35 PM EDT 07/03/2023 1:49 PM EDT Kike H Alma MORA LAB BLOOD ORDERABLES LABORATORY [facility] [address] [place] [address] * FLOW CYTOMETRY, LEUKEMIA LYMPHOMA PANEL (07/03/2023 1:35 PM EDT) Indication for Flow Testing H/O treated lymphoma, 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 Blood, Venous. Specimen: A, Source: Blood, Venous Dilution (if performed): See Case Number: 07/06/2023 8:25 AM EDT LAB[facility]ATORY [facility] Flow Interpretation Whole blood: - No significant immunophenotypic abnormalities. See comment. Comment: The analysis is performed by multi-parameter flow cytometry. On CD45 versus side light scatter, the gated lymphocyte population comprises approximately 9% of total events. The majority of these lymphocytes are heterogeneous T cells with a CD4 and CD8 ratio of 3.3:1. There is a small fraction of natural killer (NK) cells. There is no B cell population. Granulocytic and monocytic populations comprise 7% and 83% of events respectively without any apparent immunophenotypic abnormalities. 07/06/2023 8:25 AM EDT LAB[facility]ATORY [facility] Markers Performed A1: KAPPA (FITC), LAMBDA (PE), CD5 ([id number]), CD19 (PE-CY7), CD20 (APC), CD23 (APC R700), CD45 (APCH7), FMC7 (BV450), CD43 RUO (BV510), CD10 (BV605). A2: CD8 (FITC), CD16 (PE), CD3 (IKLITGE23), CD5 (PE-CY7), CD14 (APC), CD56 (APC R700), CD45 (APCH7), CD2 (BV450), CD4 (BV510), CD7 (BV605). 07/06/2023 8:25 AM EDT LABORATORY [facility] Performing Labs 8:25 AM EDT LABORATORY [facility] Comment:Performed at [facility] ([facility]), [facility] [place] [address]. Flow Disclaimer Photographic images and diagrams represent garcia findings in this case; they are not intended to replace a complete review of the final diagnostic report. The following statement applies to Flow Cytometry, Histology, In situ Hybridization Assays and Molecular Genetics. This test was developed and performed at [facility] and its performance characteristics determined by [facility]. It has not been cleared or approved [...] with appropriate positive and negative control reactions. 07/06/2023 8:25 AM EDT LABORATORY [facility] Blood Venous blood specimen / Unknown Venipuncture / Unknown 07/03/2023 1:35 PM EDT 07/03/2023 1:50 PM EDT Kike Marquez PA-C LAB PATHOLOGY ORDERA BLES LABORATORY [place] [address] [place] [address] * GLUCOSE METER, POINT OF CARE (07/03/2023 11:19 AM EDT) Glucose Meter 117 70 - 120 mg/dL 07/03/2023 11:24 AM EDT [facility] [employer] Blood Whole blood specimen / Unknown 07/03/2023 11:19 AM EDT 07/03/2023 11:24 AM EDT Yaz Molina MD LAB POINT OF CARE TE ST DOCKED DEVICE UNSOLICITED RESULTS [facility] [address] [place] [address] * GLUCOSE METER, POINT OF CARE (07/03/2023 6:36 AM EDT) Glucose Meter 120 70 - 120 mg/dL 07/03/2023 7:08 AM EDT [facility] Blood Whole blood specimen / Unknown 07/03/2023 6:36 AM EDT 07/03/2023 7:08 AM EDT Yaz Molina MD LAB POINT OF CARE TE ST DOCKED DEVICE UNSOLICITED RESULTS Performing Organization Address City/[facility]/ZIP Co de Phone Number [facility] [address] [place] [address] * PHOSPHORUS (07/03/2023 6:21 AM EDT) Phosphorus 3.8 2.5 - 4.8 mg/dL 07/03/2023 8:11 AM EDT LAB[facility]ATORY [facility] Blood Blood sample taken from central line / Unknown Venipuncture / Unknown 07/03/2023 6:21 AM EDT 07/03/2023 6:30 AM EDT Kike Marquez PA-C LAB BLOOD ORDERABLES Performing Organization Address City/[facility]/ZIP Co de Phone Number LABORATORY [facility] [address] [place] [address] * LD (07/03/2023 6:21 AM EDT) LD 213 <=250 U/L 07/03/2023 8:1 1 AM EDT LAB[facility]ORY [facility] Blood Blood sample taken from central line / Unknown Venipuncture / Unknown 07/03/2023 6:21 AM EDT 07/03/2023 6:30 AM EDT Kike Aler PA-C LAB BLOOD ORDERABLES Performing Organization Address City/[facility]/ZIP Co de Phone Number LABORATORY [facility] [address] [place] [address] * (ABNORMAL) URIC ACID (07/03/2023 6:21 AM EDT) Uric Acid 2.3(L) 3.4 - 7.0 mg/dL 07/03/2023 8:11 AM EDT LAB[facility]ORY [facility] Blood Blood sample taken from central line / Unknown Venipuncture / Unknown 07/03/2023 6:21 AM EDT 07/03/2023 6:30 AM EDT Kike Marquez PA-C LAB BLOOD ORDERABLES LAB[facility] [address] [place] [address] * (ABNORMAL) DIFFERENTIAL, AUTOMATED (07/03/2023 6:21 AM EDT) Pathologist [facility] WBC 6.89 4.00 - 10.80 K/uL 07/03/2023 6:44 AM EDT LAB[facility]ATORY [facility] Neutrophils % 85.7(H) 40.0 - 75.0 % 07/03/2023 6:44 AM EDT LAB[facility]ORY [facility] Lymphocytes % 4.2(L) 18.0 - 42.0 % 07/03/2023 6:44 AM EDT LAB[facility]ORY [facility] Monocytes % 9.4 1.0 - 11.0 % 07/03/2023 6:44 AM EDT LAB[facility]ORY [facility] Eosinophils % 0.0 0.0 - 6.0 % 07/03/2023 6:44 AM EDT LAB[facility]ORY [facility] Basophils % 0.0 0.0 - 2.0 % 07/03/2023 6:44 AM EDT LAB[facility]ORY [facility] Immature Granulocytes % 0.7 0.0 - 2.0 % 07/03/2023 6:44 AM EDT LAB[facility]ORY [facility] Absolute Neutrophils 5.90 1.80 - 7.70 K/uL 07/03/2023 6:44 AM EDT LAB[facility]ATORY [facility] Absolute Lymphocytes 0.29(L) 1.00 - 4.80 K/ul 07/03/2023 6:44 AM EDT LAB[facility]ATORY [facility] Absolute Monocytes 0.65 0.00 - 1.10 K/uL 07/03/2023 6:44 AM EDT LAB[facility]ATORY [facility] Absolute Eosinophils 0.00 0.00 - 0.70 K/uL 07/03/2023 6:44 AM EDT LAB[facility]ATORY [facility] Absolute Basophils 0.00 0.00 - 0.20 K/uL 07/03/2023 6:44 AM EDT LAB[facility]ATORY [facility] Absolute Immature Granulocytes 0.05 0.00 - 0.20 K/uL 07/03/2023 6:44 AM EDT LAB[facility]ORY [facility] Blood Blood sample taken from central line / Unknown Venipuncture / Unknown 07/03/2023 6:21 AM EDT 07/03/2023 6:30 AM EDT Arnulfo Lowe PA-C LAB BLOOD SHAHIDAE TRAVIS [facility] Organization Address City/State/ZIP Co de Phone Number LABORATORY [facility] [address] [place] [address] * (ABNORMAL) CBC (07/03/2023 6:21 AM EDT) WBC 6.89 4.00 - 10.80 K/uL 07/03/2023 6:44 AM EDT LAB[facility]ATORY [facility] RBC 3.51 4.50 - 5.25 M/uL 07/03/2023 6:44 AM EDT LAB[facility]ORY [facility] HGB 10.6(L) 14.0 - 16.8 g/dL 07/03/2023 6:44 AM EDT LAB[facility]ORY [facility] HCT 31.5(L) 40.0 - 48.4 % 07/03/2023 6:44 AM EDT LAB[facility]ORY [facility] MCV 89.7 82.0 - 99.5 fL 07/03/2023 6:44 AM EDT LAB[facility]ORY [facility] MCH 30.2 27.0 - 34.0 pg 07/03/2023 6:44 AM EDT LAB[facility]ORY [facility] MCHC 33.7 32.0 - 36.0 g/dL 07/03/2023 6:44 AM EDT LAB[facility]ORY [facility] RDW 12.3 11.5 - 15.5 % 07/03/2023 6:44 AM EDT LAB[facility]ORY [facility] PLT 219 140 - 400 K/uL 07/03/2023 6:44 AM EDT LAB[facility] MPV 9.9 6.6 - 11.1 fL 07/03/2023 6:44 AM EDT LAB[facility]ORY [facility] nRBCs 0 <=0 /100 WBCs 07/03/2023 6:44 AM EDT LAB[facility] Blood Blood sample taken from central line / Unknown Venipuncture / Unknown 07/03/2023 6:21 AM EDT 07/03/2023 6:30 AM EDT Arnulfo Lowe PA-C LAB BLOOD ORDJuan ROBLES Performing Organization Address [facility]/ZIP Co de Phone Number LABORATORY [facility] [address] [place] [address] * (ABNORMAL) HEPATIC FUNCTION PANEL (07/03/2023 6:21 AM EDT) [facility] Albumin 3.7(L) 3.8 - 5.0 g/dL 07/03/2023 7:03 AM EDT LAB[facility]ORY [facility] AST 20 10 - 50 U/L 07/03/2023 7:03 AM EDT LAB[facility]ORY [facility] Alkaline Phosphatase 60 35 - 130 U/L 07/03/2023 7:03 AM EDT [facility] ALT 55(H) 10 - 50 U/L 07/03/2023 7:03 AM EDT [facility] Bilirubin, Total 0.3 <=1.2 mg/dL 07/03/2023 7:03 AM EDT LAB[facility] Bilirubin, Direct <0.2 0.0 - 0.3 mg/dL 07/03/2023 7:03 AM EDT [facility] Protein 6.0 6.0 - 8.3 g/dL 07/03/2023 7:03 AM EDT [facility] Blood Blood sample taken from central line / Unknown Venipuncture / Unknown 07/03/2023 6:21 AM EDT 07/03/2023 6:30 AM EDT Pepe Salgado PA-C LAB BLOOD ORDJuan ROBLES Performing Organization Address [facility]/ZIP Co de Phone Number LABORATORY [facility] [address] [place] [address] * MAGNESIUM (07/03/2023 6:21 AM EDT) Magnesium 2.3 1.5 - 2.6 mg/dL 07/03/2023 7:03 AM EDT LAB[facility]ORY [facility] Blood Blood sample taken from central line / Unknown Venipuncture / Unknown 07/03/2023 6:21 AM EDT 07/03/2023 6:30 AM EDT Muna Solitario DO LAB BLOOD ORDERABLES Performing Organization Address City/[facility]/ZIP Co de Phone Number LABORATORY [facility] [address] [place] [address] * (ABNORMAL) URIC ACID (07/03/2023 12:04 AM EDT) Uric Acid 2.1(L) 3.4 - 7.0 mg/dL 07/03/2023 12:46 AM EDT [facility]ORY [facility] Blood Blood sample taken from central line / Unknown Venipuncture / Unknown 07/03/2023 12:04 AM EDT 07/03/2023 12:12 AM EDT Jamal Retana MD LAB BLOOD ORDE TRAVIS Performing Organization Address [facility] Co de Phone Number LABORATORY [facility] [address] [place] [address] * PHOSPHORUS (07/03/2023 12:04 AM EDT) Phosphorus 4.1 2.5 - 4.8 mg/dL 07/03/2023 12:46 AM EDT LABORATORY C Blood Blood sample taken from central line / Unknown Venipuncture / Unknown 07/03/2023 12:04 AM EDT 07/03/2023 12:12 AM EDT Jamal Retana MD LAB BLOOD ORDE RABKATIE Performing Organization Address [facility]/ZIP Co de Phone Number LABORATORY [facility] [address] [place] [address] * (ABNORMAL) LD (07/03/2023 12:04 AM EDT) LD 256(H) <=250 U/L 07/03/2023 12:46 AM EDT LABORATORY [facility] Blood Blood sample taken from central line / Unknown Venipuncture / Unknown 07/03/2023 12:04 AM EDT 07/03/2023 12:12 AM EDT Jamal Retana MD LAB BLOOD EMA [facility] Organization Address City/State/ZIP Co de Phone Number LABORATORY C [address] [place] [address] * (ABNORMAL) BASIC METABOLIC PANEL (07/03/2023 12:04 AM EDT) BUN 15 6 - 20 mg/dL 07/03/2023 12:46 AM EDT LABORATORY [facility] Creatinine 0.7 0.6 - 1.2 mg/dL 07/03/2023 12:46 AM EDT LABORATORY [facility] Estimated Glomerular Filtration Rate >90 >=60 mL/min 07/03/2023 12:46 AM EDT LABORATORY [facility] Comment:eGFR is calculated b ased on the CKD-EPI 2020 equation Sodium 137 135 - 146 mmol/L 07/03/2023 12:46 AM EDT LABORATORY [facility] Potassium 3.9 3.5 - 5.1 mmol/L 07/03/2023 12:46 AM EDT LAB[facility]ATORY [facility] Chloride 103 98 - 107 mmol/L 07/03/2023 12:46 AM EDT LABORATORY [facility] CO2 23 22 - 32 mmol/L 07/03/2023 12:46 AM EDT LAB[facility]ATORY [facility] Anion Gap 11 7 - 15 mmol/L 07/03/2023 12:46 AM EDT LABORATORY [facility] Glucose 155(H) 70 - 120 mg/dL 07/03/2023 12:46 AM EDT LABORATORY [facility] Calcium 9.3 8.4 - 10.2 mg/dL 07/03/2023 12:46 AM EDT LABORATORY C Blood Blood sample taken from central line / Unknown Venipuncture / Unknown 07/03/2023 12:04 AM EDT 07/03/2023 12:12 AM EDT Jamal Retana MD LAB BLOOD ORDJuan ROBL[facility] [address] [place] [address] * (ABNORMAL) GLUCOSE METER, POINT OF CARE (07/02/2023 9:32 PM EDT) Glucose Meter 180(H) 70 - 120 mg/dL 07/02/2023 9:36 PM EDT [id number] Blood Whole blood specimen / Unknown 07/02/2023 9:32 PM EDT 07/02/2023 9:36 PM EDT Yaz Molina MD LAB POINT OF CARE TE ST DOCKED DEVICE UNSOLICITED RESULTS Performing Organization Address [facility]/ZIP Co de Phone Number [facility] [address] [place] [address] * (ABNORMAL) GLUCOSE METER, POINT OF CARE (07/02/2023 4:19 PM EDT) Glucose Meter 175(H) 70 - 120 mg/dL 07/02/2023 4:27 PM EDT [facility] [employer] [facility] Blood Whole blood specimen / Unknown 07/02/2023 4:19 PM EDT 07/02/2023 4:27 PM EDT Yaz Molina MD LAB POINT OF CARE TE ST DOCKED DEVICE UNSOLICITED RESULTS [facility] [address] [place] [address] * FLOW CYTOMETRY, LEUKEMIA LYMPHOMA PANEL (07/02/2023 2:25 PM EDT) Indication for Flow Testing Burkitt lymphoma 07/06/2023 9:15 AM EDT LABORATORY [facility] Viability (%) Specimen A: 100 % 07/06/2023 9:15 AM EDT LAB[facility]ATORY [facility] Cell Count Specimen A: 10 Cells/uL in 0.5 mL of fluid Cells/u L in mL of Fluid 07/06/2023 9:15 AM EDT LABORATORY [facility] Gross Description A. CSF, Lumbar puncture. Specimen: A, Source: CSF, Lumbar puncture See 07/06/2023 9:15 AM EDT LABORATORY [facility] Flow Interpretation Cerebrospinal fluid: - Paucicellular specimen consists primarily of small T-cells, debris, and insufficient B-cells for analysis. No evidence of clonal or aberrant cells. Comment: The absence of a monoclonal or aberrant population by flow cytometry does not exclude the presence of a hematopoietic neoplasm. Hematopoietic neoplasms may be lost during processing or difficult to distinguish from normal cells when small or minimally aberrant. BLASTS: No blast population identified. LYMPHOCYTES: Lymphocytes (identified by CD45 vs. SSC) comprise 3% of total events analyzed. No CD19+/CD20+ B-cell population identified. CD3+ T-cells comprise 94% of total lymphocytes and show a CD4:CD8 ratio of [1.2:1]. No aberrant T-cell antigen expression is identified with the antibodies examined. No NK cells (CD3- CD56+). MYELOID/MONOCYTIC CELLS: Granulocytes (identified by CD45 vs. SSC) comprise <1% of total events analyzed. Monocytes (identified by CD45 vs. SSC) comprise <1% of total events analyzed. 07/06/2023 9:15 AM EDT LABORATORY [facility] Markers Performed A1: KAPPA (FITC), LAMBDA (PE), CD5 (GPRGCXD51), CD19 (PE-CY7), CD20 (APC), CD23 (APC R700), CD45 (APCH7), FMC7 (BV450), CD43 RUO (BV510), CD10 (BV605). A2: CD8 (FITC), CD16 (PE), CD3 (ELTHPCQ08), CD5 (PE-CY7), CD14 (APC), CD56 (APC R700), CD45 (APCH7), CD2 (BV450), CD4 (BV510), CD7 (BV605). 07/06/2023 9:15 AM EDT LABORATORY [facility] Performing Labs 9:15 AM EDT LABORATORY [facility] Comment:Performed at [facility] ([facility] [address] [place] [address]. Flow Disclaimer Photographic images and diagrams represent garcia findings in this case; they are not intended to replace a complete review of the final diagnostic report. The following statement applies to Flow Cytometry, Histology, In situ Hybridization Assays and Molecular Genetics. This test was developed and performed at [facility] and its performance characteristics determined by [facility] [employer]. It has not been cleared or approved [...] with appropriate positive and negative control reactions. 07/06/2023 9:15 AM EDT LABORATORY [facility] Cerebrospinal Fluid Cerebrospinal fluid specimen / Unknown Non-blood Collection / Unknown 07/02/2023 2:25 PM EDT 07/03/2023 1:00 PM EDT Kike Marquez PA-C LAB PATHOLOGY ORDERA SARA LABORATORY [facility] [address] [place] [address] * MANUAL DIFFERENTIAL, CSF (07/02/2023 2:25 PM EDT) Neutrophils % 6 0 - 6 % 07/02/2023 4:23 PM EDT LABORATORY [facility] Lymphocytes % 56 40 - 80 % 07/02/2023 4:23 PM EDT LABORATORY [facility] Monocytes % 38 15 - 45 % 07/02/2023 4:23 PM EDT LABORATORY [facility] Cerebrospinal Fluid Cerebrospinal fluid specimen / Unknown Non-blood Collection / Unknown 07/02/2023 2:25 PM EDT 07/02/2023 2:45 PM EDT Narrative LABORATORY [facility] - 07/02/2023 4:23 PM EDT Some reference ranges and other method performance specifications have not been established for this fluid. The test results must be integrated into the clinical context for interpretation. Kike H Alma PA-C LAB FLUID AND STOOL ORDERABLES Performing Organization Address [facility] Co de Phone Number LABORATORY [facility] [address] [place] [address] * (ABNORMAL) CELL COUNT, CSF (07/02/2023 2:25 PM EDT) Color, CSF Colorless Colorless 07/02/2023 4:23 PM EDT LABORATORY [facility] Clarity, CSF Clear Clear 07/02/2023 4:23 PM EDT LABORATORY [facility] Color, Supernatant CSF Colorless Colorless 07/02/2023 4:23 PM EDT LABORATORY [facility] Tube Number, CSF 2 07/02/2023 4:23 PM EDT LABORATORY [facility] Total Nucleated Cell Count, CSF 1,215(H) <5 cells/uL 07/02/2023 4:23 PM EDT LABORATORY [facility] RBC, CSF 3,358(H) <5 cells/uL 07/02/2023 4:23 PM EDT LABORATORY [facility] Cerebrospinal Fluid Cerebrospinal fluid specimen / Unknown Non-blood Collection / Unknown 07/02/2023 2:25 PM EDT 07/02/2023 2:45 PM EDT Narrative LABORATORY [facility] - 07/02/2023 4:23 PM EDT Some reference ranges and other method performance specifications have not been established for this fluid. The test results must be integrated into the clinical context for interpretation. Kike Marquez ERNST-C LAB FLUID AND STOOL ORDERABLES Performing Organization Address [facility] Co de Phone Number LABORATORY [facility] [address] [place] [address] * (ABNORMAL) PROTEIN, CSF (07/02/2023 2:25 PM EDT) Protein, CSF 69(H) 15 - 45 mg/dL 07/02/2023 4:49 PM EDT LABORATORY [facility] Cerebrospinal Fluid Cerebrospinal fluid specimen / Unknown Non-blood Collection / Unknown 07/02/2023 2:25 PM EDT 07/02/2023 2:45 PM EDT Kike Marquez PA-C LAB FLUID AND STOOL ORDERABLES LABORATORY [place] [address] [place] [address] * CYTOLOGY (07/02/2023 2:25 PM EDT) Final Diagnosis A. CSF, Lumbar puncture, Cytology: Adequacy: Satisfactory for evaluation. Category: Atypical. Interpretation: Rare atypical lymphocytes with small lymphocytes, monocytes, and red blood cells. Special studies: Flow cytometry results was attempted and is limited, but shows T-cells with insufficient B-cells for analysis (see linked procedure report). The limited findings favor a reactive lymphomonocytosis. Recommend clinical correlation. 07/06/2023 10:40 AM EDT LABORATORY [facility] Prior Cancer Lymphoma 07/06/2023 10:40 AM EDT LABORATORY [facility] Indication for Procedure burkitt's lymphoma, access if there is any csf involvement 07/06/2023 10:40 AM EDT LABORATORY [facility] Gross Description A. CSF, Lumbar puncture. Received fresh labeled with name: Farhad Franco and csf, lumbar puncture and verified with the patient's name and date of . Received 2mls of clear colored fluid. The specimen is prepared for cytospin(s) at [facility]. Prepared by: XIMENA 07/06/2023 10:40 AM EDT LABORATORY [facility] Performing Labs Bundler screening performed at [facility] ([facility]), [facility] [place] [address]. Pathologist sign out performed at [facility] ([facility]), [facility] [place] [place] [address]. 07/06/2023 10:40 AM EDT LABORATORY [facility] Photographic images and diagrams represent garcia findings in this case; they are not intended to replace a complete review of the final diagnostic report. The following statement applies to Flow Cytometry, Histology, In situ Hybridization Assays and Molecular Genetics. This test was developed and performed at [facility] and its performance characteristics determined by [employer]. It has not been cleared or approved [...] with appropriate positive and negative control reactions. 07/06/2023 10:40 AM EDT LABORATORY [facility] Cerebrospinal Fluid Cerebrospinal fluid specimen / Unknown Non-blood Collection / Unknown 07/02/2023 2:25 PM EDT 07/02/2023 7:32 PM EDT Kike Marquez PA-C LAB CYTOLOGY ORDERAB LES LABORATORY [facility] [address] [place] [address] * GLUCOSE METER, POINT OF CARE (07/02/2023 11:17 AM EDT) Glucose Meter 106 70 - 120 mg/dL 07/02/2023 11:28 AM EDT [employer] [facility] Blood Whole blood specimen / Unknown 07/02/2023 11:17 AM EDT 07/02/2023 11:28 AM EDT Yaz Molina MD LAB POINT OF CARE TE ST DOCKED DEVICE UNSOLICITED RESULTS Performing Organization Address City/[facility]/ZIP Co de Phone Number [facility] [address] [place] [address] * GLUCOSE METER, POINT OF CARE (07/02/2023 6:35 AM EDT) Glucose Meter 98 70 - 120 mg/dL 07/02/2023 6:38 AM EDT [employer] [facility] Blood Whole blood specimen / Unknown 07/02/2023 6:35 AM EDT 07/02/2023 6:38 AM EDT Yaz Molina MD LAB POINT OF CARE TE ST DOCKED DEVICE UNSOLICITED RESULTS Performing Organization Address City/[facility]/ZIP Co de Phone Number [facility] [address] [place] [address] * (ABNORMAL) DIFFERENTIAL, AUTOMATED (07/02/2023 3:27 AM EDT) WBC 7.05 4.00 - 10.80 K/uL 07/02/2023 3:41 AM EDT LABORATORY [facility] Neutrophils % 62.8 40.0 - 75.0 % 07/02/2023 3:41 AM EDT LABORATORY [facility] Lymphocytes % 22.4 18.0 - 42.0 % 07/02/2023 3:41 AM EDT LABORATORY [facility] Monocytes % 14.3(H) 1.0 - 11.0 % 07/02/2023 3:41 AM EDT LABORATORY [facility] Eosinophils % 0.1 0.0 - 6.0 % 07/02/2023 3:41 AM EDT LABORATORY [facility] Basophils % 0.0 0.0 - 2.0 % 07/02/2023 3:41 AM EDT LABORATORY [facility] Immature Granulocytes % 0.4 0.0 - 2.0 % 07/02/2023 3:41 AM EDT LABORATORY [facility] Absolute Neutrophils 4.42 1.80 - 7.70 K/uL 07/02/2023 3:41 AM EDT LABORATORY [facility] Absolute Lymphocytes 1.58 1.00 - 4.80 K/ul 07/02/2023 3:41 AM EDT LABORATORY [facility] Absolute Monocytes 1.01 0.00 - 1.10 K/uL 07/02/2023 3:41 AM EDT LABORATORY [facility] Absolute Eosinophils 0.01 0.00 - 0.70 K/uL 07/02/2023 3:41 AM EDT LABORATORY [facility] Absolute Basophils 0.00 0.00 - 0.20 K/uL 07/02/2023 3:41 AM EDT LABORATORY [facility] Absolute Immature Granulocytes 0.03 0.00 - 0.20 K/uL 07/02/2023 3:41 AM EDT LABORATORY [facility] Blood Blood sample taken from central line / Unknown Venipuncture / Unknown 07/02/2023 3:27 AM EDT 07/02/2023 3:32 AM EDT Arnulfo Lowe PA-C LAB BLOOD EMA ROBLES LABORATORY [facility] [address] [place] [address] * (ABNORMAL) CBC (07/02/2023 3:27 AM EDT) WBC 7.05 4.00 - 10.80 K/uL 07/02/2023 3:41 AM EDT LABORATORY [facility] RBC 3.55 4.50 - 5.25 M/uL 07/02/2023 3:41 AM EDT LABORATORY [facility] HGB 10.4(L) 14.0 - 16.8 g/dL 07/02/2023 3:41 AM EDT LABORATORY [facility] HCT 31.4(L) 40.0 - 48.4 % 07/02/2023 3:41 AM EDT LABORATORY [facility] MCV 88.5 82.0 - 99.5 fL 07/02/2023 3:41 AM EDT LABORATORY [facility] MCH 29.3 27.0 - 34.0 pg 07/02/2023 3:41 AM EDT LABORATORY [facility] MCHC 33.1 32.0 - 36.0 g/dL 07/02/2023 3:41 AM EDT LABORATORY [facility] RDW 12.1 11.5 - 15.5 % 07/02/2023 3:41 AM EDT LABORATORY [facility] PLT 237 140 - 400 K/uL 07/02/2023 3:41 AM EDT LABORATORY [facility] MPV 9.9 6.6 - 11.1 fL 07/02/2023 3:41 AM EDT LABORATORY GM nRBCs 0 <=0 /100 WBCs 07/02/2023 3:41 AM EDT LABORATORY [facility] Blood Blood sample taken from central line / Unknown Venipuncture / Unknown 07/02/2023 3:27 AM EDT 07/02/2023 3:32 AM EDT Arnulfo Lowe PA-C LAB BLOOD EMA ROBLES LAB[facility] [address] [place] [address] * (ABNORMAL) URIC ACID (07/02/2023 3:27 AM EDT) Pathologist [facility] Uric Acid 2.3(L) 3.4 - 7.0 mg/dL 07/02/2023 4:03 AM EDT LABORATORY [facility] Blood Blood sample taken from central line / Unknown Venipuncture / Unknown 07/02/2023 3:27 AM EDT 07/02/2023 3:32 AM EDT Arnulfo Lowe PA-C LAB BLOOD ORDJuan ROBLES Performing Organization Address [facility] [[email or web address]] de Phone Number LABORATORY [facility] [address] [place] [address] * PHOSPHORUS (07/02/2023 3:27 AM EDT) Pathologist [facility] Phosphorus 4.2 2.5 - 4.8 mg/dL 07/02/2023 4:03 AM EDT LABORATORY [facility] Blood Blood sample taken from central line / Unknown Venipuncture / Unknown 07/02/2023 3:27 AM EDT 07/02/2023 3:32 AM EDT Arnulfo Lowe PA-C LAB BLOOD ORDJuan ROBLES Performing Organization Address [facility] [[email or web address]] de Phone Number LABORATORY [facility] [address] [place] [address] * (ABNORMAL) BASIC METABOLIC PANEL (07/02/2023 3:27 AM EDT) Pathologist [facility] BUN 16 6 - 20 mg/dL 07/02/2023 4:03 AM EDT LABORATORY [facility] Creatinine 0.6 0.6 - 1.2 mg/dL 07/02/2023 4:03 AM EDT LABORATORY [facility] Estimated Glomerular Filtration Rate >90 >=60 mL/min 07/02/2023 4:03 AM EDT LABORATORY [facility] Comment:eGFR is calculated b ased on the CKD-EPI 2020 equation Sodium 138 135 - 146 mmol/L 07/02/2023 4:03 AM EDT LABORATORY [facility] Potassium 3.4(L) 3.5 - 5.1 mmol/L 07/02/2023 4:03 AM EDT LABORATORY [facility] Chloride 104 98 - 107 mmol/L 07/02/2023 4:03 AM EDT LABORATORY [facility] CO2 25 22 - 32 mmol/L 07/02/2023 4:03 AM EDT LABORATORY [facility] Anion Gap 9 7 - 15 mmol/L 07/02/2023 4:03 AM EDT LABORATORY [facility] Glucose 105 70 - 120 mg/dL 07/02/2023 4:03 AM EDT LABORATORY [facility] Calcium 8.9 8.4 - 10.2 mg/dL 07/02/2023 4:03 AM EDT LABORATORY [facility] Blood Blood sample taken from central line / Unknown Venipuncture / Unknown 07/02/2023 3:27 AM EDT 07/02/2023 3:32 AM EDT Arnulfo Lowe PA-C LAB BLOOD EMA ROBLES [facility] Organization Address City/State/ZIP Co de Phone Number LABORATORY [facility] [address] [place] [address] * (ABNORMAL) HEPATIC FUNCTION PANEL (07/02/2023 3:27 AM EDT) [facility] Albumin 3.7(L) 3.8 - 5.0 g/dL 07/02/2023 4:03 AM EDT LABORATORY [facility] AST 17 10 - 50 U/L 07/02/2023 4:03 AM EDT LABORATORY [facility] Alkaline Phosphatase 62 35 - 130 U/L 07/02/2023 4:03 AM EDT LABORATORY [facility] ALT 53(H) 10 - 50 U/L 07/02/2023 4:03 AM EDT LABORATORY [facility] Bilirubin, Total 0.2 <=1.2 mg/dL 07/02/2023 4:03 AM EDT LABORATORY [facility] Bilirubin, Direct <0.2 0.0 - 0.3 mg/dL 07/02/2023 4:03 AM EDT LABORATORY [facility] Protein 6.2 6.0 - 8.3 g/dL 07/02/2023 4:03 AM EDT LABORATORY C Blood Blood sample taken from central line / Unknown Venipuncture / Unknown 07/02/2023 3:27 AM EDT 07/02/2023 3:32 AM EDT Pepe Salgado PA-C LAB BLOOD ORDJuan ALVARENGAKATIE Performing Organization Address [facility] Co de Phone Number LABORATORY [facility] [address] [place] [address] * LD (07/02/2023 3:27 AM EDT) LD 213 <=250 U/L 07/02/2023 4:0 3 AM EDT LABORATORY [facility] Blood Blood sample taken from central line / Unknown Venipuncture / Unknown 07/02/2023 3:27 AM EDT 07/02/2023 3:32 AM EDT Pepe Salgado PA-C LAB BLOOD EMA TRAVIS Performing Organization Address [facility] [[email or web address]] de Phone Number LABORATORY [facility] [address] [place] [address] * MAGNESIUM (07/02/2023 3:27 AM EDT) Magnesium 2.2 1.5 - 2.6 mg/dL 07/02/2023 4:03 AM EDT LABORATORY [facility] Blood Blood sample taken from central line / Unknown Venipuncture / Unknown 07/02/2023 3:27 AM EDT 07/02/2023 3:32 AM EDT Muna Solitario DO LAB BLOOD ORDERABLES Performing Organization Address [facility] [[email or web address]] de Phone Number LABORATORY [facility] [address] [place] [address] * (ABNORMAL) GLUCOSE METER, POINT OF CARE (07/01/2023 9:34 PM EDT) Glucose Meter 129(H) 70 - 120 mg/dL 07/01/2023 10:03 PM EDT [employer] Blood Whole blood specimen / Unknown 07/01/2023 9:34 PM EDT 07/01/2023 10:03 PM EDT Yaz Molina MD LAB POINT OF CARE TE ST DOCKED DEVICE UNSOLICITED RESULTS [facility] [address] [place] [address] * (ABNORMAL) GLUCOSE METER, POINT OF CARE (07/01/2023 4:11 PM EDT) Glucose Meter 191(H) 70 - 120 mg/dL 07/01/2023 4:13 PM EDT [employer] Blood Whole blood specimen / Unknown 07/01/2023 4:11 PM EDT 07/01/2023 4:13 PM EDT Yaz Molina MD LAB POINT OF CARE TE ST DOCKED DEVICE UNSOLICITED RESULTS Performing Organization Address City/[facility]/ZIP Co de Phone Number [facility] [address] [place] [address] * (ABNORMAL) GLUCOSE METER, POINT OF CARE (07/01/2023 4:08 PM EDT) Glucose Meter 181(H) 70 - 120 mg/dL 07/01/2023 4:13 PM EDT [employer] Blood Whole blood specimen / Unknown 07/01/2023 4:08 PM EDT 07/01/2023 4:13 PM EDT Yaz Moilna MD LAB POINT OF CARE TE ST DOCKED DEVICE UNSOLICITED RESULTS [facility] [address] [place] [address] * (ABNORMAL) GLUCOSE METER, POINT OF CARE (07/01/2023 11:14 AM EDT) Glucose Meter 123(H) 70 - 120 mg/dL 07/01/2023 4:13 PM EDT [employer] Blood Whole blood specimen / Unknown 07/01/2023 11:14 AM EDT 07/01/2023 4:13 PM EDT Yaz Molina MD LAB POINT OF CARE TE ST DOCKED DEVICE UNSOLICITED RESULTS [facility] [address] [place] [address] * GLUCOSE METER, POINT OF CARE (07/01/2023 7:34 AM EDT) Glucose Meter 83 70 - 120 mg/dL 07/01/2023 7:45 AM EDT [facility] Blood Whole blood specimen / Unknown 07/01/2023 7:34 AM EDT 07/01/2023 7:45 AM EDT Yaz Molina MD LAB POINT OF CARE TE ST DOCKED DEVICE UNSOLICITED RESULTS Performing Organization Address City/[facility]/ZIP Co de Phone Number [facility] [address] [place] [address] * (ABNORMAL) DIFFERENTIAL, AUTOMATED (07/01/2023 3:27 AM EDT) WBC 7.05 4.00 - 10.80 K/uL 07/01/2023 3:46 AM EDT LABORATORY [facility] Neutrophils % 65.9 40.0 - 75.0 % 07/01/2023 3:46 AM EDT LABORATORY [facility] Lymphocytes % 21.6 18.0 - 42.0 % 07/01/2023 3:46 AM EDT LABORATORY [facility] Monocytes % 11.9(H) 1.0 - 11.0 % 07/01/2023 3:46 AM EDT LABORATORY [facility] Eosinophils % 0.0 0.0 - 6.0 % 07/01/2023 3:46 AM EDT LABORATORY [facility] Basophils % 0.0 0.0 - 2.0 % 07/01/2023 3:46 AM EDT LABORATORY [facility] Immature Granulocytes % 0.6 0.0 - 2.0 % 07/01/2023 3:46 AM EDT LABORATORY [facility] Absolute Neutrophils 4.65 1.80 - 7.70 K/uL 07/01/2023 3:46 AM EDT LABORATORY [facility] Absolute Lymphocytes 1.52 1.00 - 4.80 K/ul 07/01/2023 3:46 AM EDT LABORATORY [facility] Absolute Monocytes 0.84 0.00 - 1.10 K/uL 07/01/2023 3:46 AM EDT LABORATORY [facility] Absolute Eosinophils 0.00 0.00 - 0.70 K/uL 07/01/2023 3:46 AM EDT LABORATORY [facility] Absolute Basophils 0.00 0.00 - 0.20 K/uL 07/01/2023 3:46 AM EDT LABORATORY [facility] Absolute Immature Granulocytes 0.04 0.00 - 0.20 K/uL 07/01/2023 3:46 AM EDT LABORATORY [facility] Blood Blood sample taken from central line / Unknown Venipuncture / Unknown 07/01/2023 3:27 AM EDT 07/01/2023 3:37 AM EDT Arnulfo Lowe PA-C LAB BLOOD EMA ROBLES [facility] Organization Address City/State/ZIP Co de Phone Number LABORATORY [facility] [address] [place] [address] * (ABNORMAL) CBC (07/01/2023 3:27 AM EDT) WBC 7.05 4.00 - 10.80 K/uL 07/01/2023 3:46 AM EDT LABORATORY [facility] RBC 3.73 4.50 - 5.25 M/uL 07/01/2023 3:46 AM EDT LABORATORY [facility] HGB 11.2(L) 14.0 - 16.8 g/dL 07/01/2023 3:46 AM EDT LABORATORY [facility] HCT 33.3(L) 40.0 - 48.4 % 07/01/2023 3:46 AM EDT LABORATORY [facility] MCV 89.3 82.0 - 99.5 fL 07/01/2023 3:46 AM EDT LABORATORY [facility] MCH 30.0 27.0 - 34.0 pg 07/01/2023 3:46 AM EDT LABORATORY [facility] MCHC 33.6 32.0 - 36.0 g/dL 07/01/2023 3:46 AM EDT LABORATORY [facility] RDW 12.5 11.5 - 15.5 % 07/01/2023 3:46 AM EDT LABORATORY [facility] PLT 241 140 - 400 K/uL 07/01/2023 3:46 AM EDT LABORATORY [facility] MPV 10.0 6.6 - 11.1 fL 07/01/2023 3:46 AM EDT LABORATORY [facility] nRBCs 0 <=0 /100 WBCs 07/01/2023 3:46 AM EDT LABORATORY [facility] Blood Blood sample taken from central line / Unknown Venipuncture / Unknown 07/01/2023 3:27 AM EDT 07/01/2023 3:37 AM EDT Arnulfo Lowe PA-C LAB BLOOD ORDJuan ROBLES Performing Organization Address [facility]/ZIP Co de Phone Number LABORATORY [facility] [address] [place] [address] * (ABNORMAL) URIC ACID (07/01/2023 3:27 AM EDT) Uric Acid 2.1(L) 3.4 - 7.0 mg/dL 07/01/2023 4:13 AM EDT LABORATORY [facility] Blood Blood sample taken from central line / Unknown Venipuncture / Unknown 07/01/2023 3:27 AM EDT 07/01/2023 3:37 AM EDT Arnuflo oLwe PA-C LAB BLOOD ORDJuan ROBLES Performing Organization Address [facility]/ZIP Co de Phone Number LABORATORY [facility] [address] [place] [address] * (ABNORMAL) HEPATIC FUNCTION PANEL (07/01/2023 3:27 AM EDT) Albumin 4.0 3.8 - 5.0 g/dL 07/01/2023 4:13 AM EDT LABORATORY [facility] AST 21 10 - 50 U/L 07/01/2023 4:13 AM EDT LABORATORY [facility] Alkaline Phosphatase 68 35 - 130 U/L 07/01/2023 4:13 AM EDT LABORATORY C ALT 56(H) 10 - 50 U/L 07/01/2023 4:13 AM EDT LABORATORY [facility] Bilirubin, Total 0.3 <=1.2 mg/dL 07/01/2023 4:13 AM EDT LABORATORY [facility] Bilirubin, Direct <0.2 0.0 - 0.3 mg/dL 07/01/2023 4:13 AM EDT LABORATORY [facility] Protein 6.7 6.0 - 8.3 g/dL 07/01/2023 4:13 AM EDT LABORATORY [facility] Blood Blood sample taken from central line / Unknown Venipuncture / Unknown 07/01/2023 3:27 AM EDT 07/01/2023 3:37 AM EDT Pepe Salgado PA-C LAB BLOOD ORDJuan ROBLES Performing Organization Address City/[facility]/ZIP Co de Phone Number LABORATORY [facility] [address] [place] [address] * LD (07/01/2023 3:27 AM EDT) LD 244 <=250 U/L 07/01/2023 4:1 3 AM EDT LABORATORY [facility] Blood Blood sample taken from central line / Unknown Venipuncture / Unknown 07/01/2023 3:27 AM EDT 07/01/2023 3:37 AM EDT Pepe Salgado PA-C LAB BLOOD ORDE TRAVIS Performing Organization Address [facility] Co de Phone Number LABORATORY [facility] [address] [place] [address] * MAGNESIUM (07/01/2023 3:27 AM EDT) Magnesium 2.3 1.5 - 2.6 mg/dL 07/01/2023 4:13 AM EDT LAB[facility]ATORY [facility] Blood Blood sample taken from central line / Unknown Venipuncture / Unknown 07/01/2023 3:27 AM EDT 07/01/2023 3:37 AM EDT Muna Solitario DO LAB BLOOD ORDERABLES Performing Organization Address City/[facility]/ZIP Co de Phone Number LABORATORY [facility] [address] [place] [address] * (ABNORMAL) URIC ACID, RASBURICASE USER (07/01/2023 3:27 AM EDT) Pathologist [facility] Uric Acid, Rasburicase User 2.1(L) 3.4 - 7.0 mg/dL 07/01/2023 4:04 AM EDT LABORATORY [facility] Blood Blood sample taken from central line / Unknown Venipuncture / Unknown 07/01/2023 3:27 AM EDT 07/01/2023 3:36 AM EDT Pepe Salgado PA-C LAB BLOOD EMA RO[facility] LABORATORY [facility] [address] [place] [address] * BASIC METABOLIC PANEL (07/01/2023 3:27 AM EDT) [facility] BUN 15 6 - 20 mg/dL 07/01/2023 4:13 AM EDT LABORATORY [facility] Creatinine 0.7 0.6 - 1.2 mg/dL 07/01/2023 4:13 AM EDT LABORATORY [facility] Estimated Glomerular Filtration Rate >90 >=60 mL/min 07/01/2023 4:13 AM EDT LABORATORY [facility] Comment:eGFR is calculated b ased on the CKD-EPI 2020 equation Sodium 140 135 - 146 mmol/L 07/01/2023 4:13 AM EDT LABORATORY C Potassium 3.6 3.5 - 5.1 mmol/L 07/01/2023 4:13 AM EDT LABORATORY C Chloride 106 98 - 107 mmol/L 07/01/2023 4:13 AM EDT LABORATORY C CO2 24 22 - 32 mmol/L 07/01/2023 4:13 AM EDT LABORATORY C Anion Gap 10 7 - 15 mmol/L 07/01/2023 4:13 AM EDT LABORATORY [facility] Glucose 112 70 - 120 mg/dL 07/01/2023 4:13 AM EDT LABORATORY C Calcium 9.4 8.4 - 10.2 mg/dL 07/01/2023 4:13 AM EDT LABORATORY [facility] Blood Blood sample taken from central line / Unknown Venipuncture / Unknown 07/01/2023 3:27 AM EDT 07/01/2023 3:37 AM EDT Eleuterio DUKES-Randi LAB BLOOD ORDJuan ALVARENGAKATIE Performing Organization Address [facility]/ZIP Co de Phone Number LABORATORY [facility] [address] [place] [address] * PHOSPHORUS (07/01/2023 3:27 AM EDT) Phosphorus 3.7 2.5 - 4.8 mg/dL 07/01/2023 4:13 AM EDT LABORATORY [facility] Blood Blood sample taken from central line / Unknown Venipuncture / Unknown 07/01/2023 3:27 AM EDT 07/01/2023 3:37 AM EDT Eleuterio DUKES-Randi LAB BLOOD ORDJuan ALVARENGAKATIE Performing Organization Address [facility]/ZIP Co de Phone Number LABORATORY [facility] [address] [place] [address] * (ABNORMAL) GLUCOSE METER, POINT OF CARE (06/30/2023 9:59 PM EDT) Glucose Meter 124(H) 70 - 120 mg/dL 06/30/2023 10:04 PM EDT [facility] [employer] [facility] Blood Whole blood specimen / Unknown 06/30/2023 9:59 PM EDT 06/30/2023 10:04 PM EDT Yaz Molina MD LAB POINT OF CARE TE ST DOCKED DEVICE UNSOLICITED RESULTS Performing Organization Address City/[facility]/ZIP Co de Phone Number [facility] [address] [place] [address] * (ABNORMAL) GLUCOSE METER, POINT OF CARE (06/30/2023 4:32 PM EDT) Glucose Meter 140(H) 70 - 120 mg/dL 06/30/2023 4:37 PM EDT [email or web address] Blood Whole blood specimen / Unknown 06/30/2023 4:32 PM EDT 06/30/2023 4:37 PM EDT Yaz Molina MD LAB POINT OF CARE TE ST DOCKED DEVICE UNSOLICITED RESULTS Performing Organization Address City/[facility]/ZIP Co de Phone Number [facility] [address] [place] [address] * GLUCOSE METER, POINT OF CARE (06/30/2023 10:40 AM EDT) Glucose Meter 97 70 - 120 mg/dL 06/30/2023 10:46 AM EDT [facility] [employer] [facility] Blood Whole blood specimen / Unknown 06/30/2023 10:40 AM EDT 06/30/2023 10:46 AM EDT Yaz Molina MD LAB POINT OF CARE TE ST DOCKED DEVICE UNSOLICITED RESULTS Performing Organization Address City/[facility]/ZIP Co de Phone Number [facility] [address] [place] [address] * GLUCOSE METER, POINT OF CARE (06/30/2023 6:30 AM EDT) Glucose Meter 101 70 - 120 mg/dL 06/30/2023 6:40 AM EDT [facility] [employer] [facility] Blood Whole blood specimen / Unknown 06/30/2023 6:30 AM EDT 06/30/2023 6:40 AM EDT Yaz Molina MD LAB POINT OF CARE TE ST DOCKED DEVICE UNSOLICITED RESULTS Performing Organization Address City/[facility]/ZIP Co de Phone Number [facility] [address] [place] [address] * (ABNORMAL) DIFFERENTIAL, AUTOMATED (06/30/2023 3:19 AM EDT) WBC 7.65 4.00 - 10.80 K/uL 06/30/2023 3:49 AM EDT LABORATORY [facility] Neutrophils % 66.7 40.0 - 75.0 % 06/30/2023 3:49 AM EDT LABORATORY [facility] Lymphocytes % 19.7 18.0 - 42.0 % 06/30/2023 3:49 AM EDT LABORATORY [facility] Monocytes % 12.9(H) 1.0 - 11.0 % 06/30/2023 3:49 AM EDT LABORATORY [facility] Eosinophils % 0.1 0.0 - 6.0 % 06/30/2023 3:49 AM EDT LABORATORY [facility] Basophils % 0.1 0.0 - 2.0 % 06/30/2023 3:49 AM EDT LABORATORY [facility] Immature Granulocytes % 0.5 0.0 - 2.0 % 06/30/2023 3:49 AM EDT LABORATORY [facility] Absolute Neutrophils 5.09 1.80 - 7.70 K/uL 06/30/2023 3:49 AM EDT LABORATORY [facility] Absolute Lymphocytes 1.51 1.00 - 4.80 K/ul 06/30/2023 3:49 AM EDT LABORATORY [facility] Absolute Monocytes 0.99 0.00 - 1.10 K/uL 06/30/2023 3:49 AM EDT LABORATORY [facility] Absolute Eosinophils 0.01 0.00 - 0.70 K/uL 06/30/2023 3:49 AM EDT LABORATORY [facility] Absolute Basophils 0.01 0.00 - 0.20 K/uL 06/30/2023 3:49 AM EDT LABORATORY [facility] Absolute Immature Granulocytes 0.04 0.00 - 0.20 K/uL 06/30/2023 3:49 AM EDT LABORATORY [facility] Blood Blood sample taken from central line / Unknown Venipuncture / Unknown 06/30/2023 3:19 AM EDT 06/30/2023 3:27 AM EDT Arnulfo Lowe PA-C LAB BLOOD EMA ROBLES [facility] Organization Address City/State/ZIP Co de Phone Number LABORATORY [facility] [address] [place] [address] * (ABNORMAL) CBC (06/30/2023 3:19 AM EDT) [facility] WBC 7.65 4.00 - 10.80 K/uL 06/30/2023 3:49 AM EDT LABORATORY [facility] RBC 3.74 4.50 - 5.25 M/uL 06/30/2023 3:49 AM EDT LABORATORY [facility] HGB 10.8(L) 14.0 - 16.8 g/dL 06/30/2023 3:49 AM EDT LABORATORY [facility] HCT 33.6(L) 40.0 - 48.4 % 06/30/2023 3:49 AM EDT LABORATORY [facility] MCV 89.8 82.0 - 99.5 fL 06/30/2023 3:49 AM EDT LABORATORY [facility] MCH 28.9 27.0 - 34.0 pg 06/30/2023 3:49 AM EDT LABORATORY [facility] MCHC 32.1 32.0 - 36.0 g/dL 06/30/2023 3:49 AM EDT LABORATORY [facility] RDW 12.7 11.5 - 15.5 % 06/30/2023 3:49 AM EDT LABORATORY [facility] PLT 237 140 - 400 K/uL 06/30/2023 3:49 AM EDT LABORATORY [facility] MPV 10.1 6.6 - 11.1 fL 06/30/2023 3:49 AM EDT LABORATORY [facility] nRBCs 0 <=0 /100 WBCs 06/30/2023 3:49 AM EDT LABORATORY [facility] Blood Blood sample taken from central line / Unknown Venipuncture / Unknown 06/30/2023 3:19 AM EDT 06/30/2023 3:27 AM EDT Arnulfo Lowe PA-C LAB BLOOD ORDJuan ROBLES [facility] Organization Address City/State/ZIP Co de Phone Number LABORATORY [facility] [address] [place] [address] * (ABNORMAL) URIC ACID (06/30/2023 3:19 AM EDT) [facility] Uric Acid 1.9(L) 3.4 - 7.0 mg/dL 06/30/2023 4:04 AM EDT LABORATORY [facility] Blood Blood sample taken from central line / Unknown Venipuncture / Unknown 06/30/2023 3:19 AM EDT 06/30/2023 3:27 AM EDT Arnulfo Lowe PA-C LAB BLOOD ORDJuan ROBLES Performing Organization Address [facility] [[email or web address]] de Phone Number LABORATORY [facility] [address] [place] [address] * PHOSPHORUS (06/30/2023 3:19 AM EDT) Phosphorus 3.3 2.5 - 4.8 mg/dL 06/30/2023 4:04 AM EDT LABORATORY [facility] Blood Blood sample taken from central line / Unknown Venipuncture / Unknown 06/30/2023 3:19 AM EDT 06/30/2023 3:27 AM EDT Arnulfo Lowe PA-C LAB BLOOD EMA ROBLES Performing Organization Address [facility] [[email or web address]] de Phone Number LABORATORY [facility] [address] [place] [address] * (ABNORMAL) BASIC METABOLIC PANEL (06/30/2023 3:19 AM EDT) BUN 12 6 - 20 mg/dL 06/30/2023 4:04 AM EDT LABORATORY [facility] Creatinine 0.7 0.6 - 1.2 mg/dL 06/30/2023 4:04 AM EDT LABORATORY [facility] Estimated Glomerular Filtration Rate >90 >=60 mL/min 06/30/2023 4:04 AM EDT LABORATORY C Comment:eGFR is calculated b ased on the CKD-EPI 2020 equation Sodium 139 135 - 146 mmol/L 06/30/2023 4:04 AM EDT LABORATORY [facility] Potassium 3.7 3.5 - 5.1 mmol/L 06/30/2023 4:04 AM EDT LABORATORY [facility] Chloride 108(H) 98 - 107 mmol/L 06/30/2023 4:04 AM EDT LABORATORY [facility] CO2 23 22 - 32 mmol/L 06/30/2023 4:04 AM EDT LABORATORY [facility] Anion Gap 8 7 - 15 mmol/L 06/30/2023 4:04 AM EDT LABORATORY [facility] Glucose 99 70 - 120 mg/dL 06/30/2023 4:04 AM EDT LABORATORY [facility] Calcium 9.1 8.4 - 10.2 mg/dL 06/30/2023 4:04 AM EDT LABORATORY [facility] Blood Blood sample taken from central line / Unknown Venipuncture / Unknown 06/30/2023 3:19 AM EDT 06/30/2023 3:27 AM EDT Arnulfo Lowe PA-C LAB BLOOD ORDJuan ROBLES Performing Organization Address [facility] Co de Phone Number LABORATORY [facility] [address] [place] [address] * (ABNORMAL) HEPATIC FUNCTION PANEL (06/30/2023 3:19 AM EDT) [facility] Albumin 3.7(L) 3.8 - 5.0 g/dL 06/30/2023 4:04 AM EDT LABORATORY [facility] AST 21 10 - 50 U/L 06/30/2023 4:04 AM EDT LABORATORY [facility] Alkaline Phosphatase 65 35 - 130 U/L 06/30/2023 4:04 AM EDT LABORATORY [facility] ALT 45 10 - 50 U/L 06/30/2023 4:04 AM EDT LABORATORY [facility] Bilirubin, Total 0.2 <=1.2 mg/dL 06/30/2023 4:04 AM EDT LABORATORY [facility] Bilirubin, Direct <0.2 0.0 - 0.3 mg/dL 06/30/2023 4:04 AM EDT LABORATORY [facility] Protein 6.4 6.0 - 8.3 g/dL 06/30/2023 4:04 AM EDT LABORATORY [facility] Blood Blood sample taken from central line / Unknown Venipuncture / Unknown 06/30/2023 3:19 AM EDT 06/30/2023 3:27 AM EDT Pepe Salgado PA-C LAB BLOOD ORDJuan ROBLES Performing Organization Address [facility]/ZIP Co de Phone Number LABORATORY [facility] [address], [place] [id number] * LD (06/30/2023 3:19 AM EDT) LD 228 <=250 U/L 06/30/2023 4:0 4 AM EDT LABORATORY [facility] Blood Blood sample taken from central line / Unknown Venipuncture / Unknown 06/30/2023 3:19 AM EDT 06/30/2023 3:27 AM EDT Pepe Salgado PA-C LAB BLOOD ORDE RABKATIE LABORATORY [facility] [address] [place] [address] * MAGNESIUM (06/30/2023 3:19 AM EDT) [facility] Magnesium 2.2 1.5 - 2.6 mg/dL 06/30/2023 4:04 AM EDT LABORATORY [facility] Blood Blood sample taken from central line / Unknown Venipuncture / Unknown 06/30/2023 3:19 AM EDT 06/30/2023 3:27 AM EDT Muna Solitario DO LAB BLOOD ORDERABLES Performing Organization Address [facility]/ZIP Co de Phone Number LABORATORY [facility] [address] [place] [address] * GLUCOSE METER, POINT OF CARE (06/29/2023 9:13 PM EDT) [facility] Glucose Meter 117 70 - 120 mg/dL 06/29/2023 9:18 PM EDT [id number] Blood Whole blood specimen / Unknown 06/29/2023 9:13 PM EDT 06/29/2023 9:18 PM EDT Yaz Molina MD LAB POINT OF CARE TE ST DOCKED DEVICE UNSOLICITED RESULTS Performing Organization Address City/[facility]/ZIP Co de Phone Number [facility] [address] [place] [address] * US SCROTUM/TESTES (06/29/2023 7:01 PM EDT) Anatomical Region Laterality Modality Pelvis, Body Ultrasound 06/29/2023 8:33 PM EDT Impressions 06/29/2023 8:40 PM EDT IMPRESSION 1. No sonographic evidence of intratesticular lesion. 2. Bilateral varicoceles. I have personally reviewed this examination and agree with the resident/fellow physician's interpretation. Narrative 06/29/2023 8:40 PM EDT EXAM US SCROTUM/TESTES HISTORY Staging for high grade lymphoma COMPARISON CT abdomen/pelvis 06/25/2023. FINDINGS RIGHT: The testicle is homogeneous in echogenicity measuring 3.9 x 2.7 x 2.1 cm. No lesions identified. There is no hydrocele. Blood flow is identified to the testicle Epididymal head cyst measuring 0.6 x 0.5 x 0.7 cm. Varicocele. LEFT: The testicle is homogeneous in echogenicity measuring 3.7 x 2.9 x 1.9 cm. No lesions identified. There is no hydrocele. Blood flow is identified to the testicle Two, left epididymal head cysts measuring up to 0.3 x 0.5 x 0.3 cm. Varicocele. Scrotal amarjit. Bilateral testicular flow appears nearly symmetric. Procedure Note Ankur Kulkarni MD - 06/29/2023 EXAM US SCROTUM/TESTES HISTORY Staging for high grade lymphoma COMPARISON CT abdomen/pelvis 06/25/2023. FINDINGS RIGHT: The testicle is homogeneous in echogenicity measuring 3.9 x 2.7 x 2.1 cm.No lesions identified. There is no hydrocele. Blood flow is identified to the testicle Epididymal head cyst measuring 0.6 x 0.5 x 0.7 cm. Varicocele. LEFT: The testicle is homogeneous in echogenicity measuring 3.7 x 2.9 x 1.9 cm.No lesions identified. There is no hydrocele. Blood flow is identified to the testicle Two, left epididymal head cysts measuring up to 0.3 x 0.5 x 0.3 cm. Varicocele. Scrotal amarjit. Bilateral testicular flow appears nearly symmetric. IMPRESSION IMPRESSION 1. No sonographic evidence of intratesticular lesion. 2. Bilateral varicoceles. I have personally reviewed this examination and agree with the resident/fellow physician's interpretation. Kike Marquez PA-C RAD ULTRASOUND * CT HEAD/BRAIN W WO CONTRAST (06/29/2023 6:33 PM EDT) Anatomical Region Laterality Modality Head Computed Tomogra phy 06/29/2023 6:43 PM EDT Impressions 06/29/2023 6:41 PM EDT IMPRESSION 1. No acute intracranial abnormality. 2. No abnormal intracranial enhancement. If there is continued clinical concern for intracranial disease, MRI brain with and without contrast is suggested which is more sensitive. 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 COMPARISON 12/06/2013 in correlation made with FINDINGS No acute intracranial hemorrhage or abnormal extra-axial collection. There is generalized volume loss with prominence of the ventricles and sulci. No midline shift or mass effect. Scattered areas of patchy hypoattenuation are present within the cerebral white matter which are nonspecific but can be seen with chronic small vessel ischemia. An area of encephalomalacia and gliosis seen within the left occipital lobe no abnormal intracranial enhancement develops following intravenous contrast administration. If there is continued clinical concern for intracranial disease, MRI brain with and without contrast is suggested which is more sensitive. Mucous retention cyst is seen within the inferior left maxillary sinus. 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 COMPARISON 12/06/2013 in correlation made with FINDINGS No acute intracranial hemorrhage or abnormal extra-axial collection. Thereis generalized volume loss with prominence of the ventricles and sulci. Nomidline shift or mass effect. Scattered areas of patchy hypoattenuationare present within the cerebral white matter which are nonspecific but canbe seen with chronic small vessel ischemia. An area of encephalomalaciaand gliosis seen within the left occipital lobe no abnormal intracranialenhancement develops following intravenous contrast administration. Ifthere is continued clinical concern for intracranial disease, MRI brainwith and without contrast is suggested which is more sensitive. Mucous retention cyst is seen within the inferior left maxillary sinus. IMPRESSION IMPRESSION 1. No acute intracranial abnormality. 2. No abnormal intracranial enhancement. If there is continued clinicalconcern for intracranial disease, MRI brain with and without contrast issuggested which is more sensitive. Kike Marquez PA-C RAD CT * (ABNORMAL) GLUCOSE METER, POINT OF CARE (06/29/2023 4:21 PM EDT) Glucose Meter 135(H) 70 - 120 mg/dL 06/29/2023 4:[address] [employer] Blood Whole blood specimen / Unknown 06/29/2023 4:21 PM EDT 06/29/2023 4:29 PM EDT Yaz Molina MD LAB POINT OF CARE TE ST DOCKED DEVICE UNSOLICITED RESULTS [facility] [address] [place] [address] * GLUCOSE METER, POINT OF CARE (06/29/2023 10:50 AM EDT) Glucose Meter 120 70 - 120 mg/dL 06/29/2023 11:15 AM EDT [employer] Blood Whole blood specimen / Unknown 06/29/2023 10:50 AM EDT 06/29/2023 11:15 AM EDT Yaz Molina MD LAB POINT OF CARE TE ST DOCKED DEVICE UNSOLICITED RESULTS [facility] [address] [place] [address] * GLUCOSE METER, POINT OF CARE (06/29/2023 6:41 AM EDT) Glucose Meter 107 70 - 120 mg/dL 06/29/2023 6:57 AM EDT [employer] Blood Whole blood specimen / Unknown 06/29/2023 6:41 AM EDT 06/29/2023 6:57 AM EDT Drake Pyle MD LAB POINT OF CARE TEST DOCKED DEVICE UNSOLICITED RESULTS [facility] [address] [place] [address] * (ABNORMAL) DIFFERENTIAL, AUTOMATED (06/29/2023 3:39 AM EDT) WBC 7.44 4.00 - 10.80 K/uL 06/29/2023 3:56 AM EDT LABORATORY [facility] Neutrophils % 64.3 40.0 - 75.0 % 06/29/2023 3:56 AM EDT LABORATORY [facility] Lymphocytes % 21.2 18.0 - 42.0 % 06/29/2023 3:56 AM EDT LABORATORY [facility] Monocytes % 14.0(H) 1.0 - 11.0 % 06/29/2023 3:56 AM EDT LABORATORY [facility] Eosinophils % 0.1 0.0 - 6.0 % 06/29/2023 3:56 AM EDT LABORATORY [facility] Basophils % 0.1 0.0 - 2.0 % 06/29/2023 3:56 AM EDT LABORATORY [facility] Immature Granulocytes % 0.3 0.0 - 2.0 % 06/29/2023 3:56 AM EDT LABORATORY [facility] Absolute Neutrophils 4.78 1.80 - 7.70 K/uL 06/29/2023 3:56 AM EDT LABORATORY [facility] Absolute Lymphocytes 1.58 1.00 - 4.80 K/ul 06/29/2023 3:56 AM EDT LABORATORY [facility] Absolute Monocytes 1.04 0.00 - 1.10 K/uL 06/29/2023 3:56 AM EDT LABORATORY [facility] Absolute Eosinophils 0.01 0.00 - 0.70 K/uL 06/29/2023 3:56 AM EDT LABORATORY [facility] Absolute Basophils 0.01 0.00 - 0.20 K/uL 06/29/2023 3:56 AM EDT LABORATORY [facility] Absolute Immature Granulocytes 0.02 0.00 - 0.20 K/uL 06/29/2023 3:56 AM EDT LABORATORY [facility] Blood Blood sample taken from central line / Unknown Venipuncture / Unknown 06/29/2023 3:39 AM EDT 06/29/2023 3:47 AM EDT Arnulfo Lowe PA-C LAB BLOOD EMA ROBLES LABORATORY [facility] [address] [place] [address] * (ABNORMAL) CBC (06/29/2023 3:39 AM EDT) [facility] WBC 7.44 4.00 - 10.80 K/uL 06/29/2023 3:56 AM EDT LABORATORY [facility] RBC 3.30 4.50 - 5.25 M/uL 06/29/2023 3:56 AM EDT LABORATORY [facility] HGB 9.5(L) 14.0 - 16.8 g/dL 06/29/2023 3:56 AM EDT LABORATORY [facility] HCT 29.4(L) 40.0 - 48.4 % 06/29/2023 3:56 AM EDT LABORATORY [facility] MCV 89.1 82.0 - 99.5 fL 06/29/2023 3:56 AM EDT LABORATORY [facility] MCH 28.8 27.0 - 34.0 pg 06/29/2023 3:56 AM EDT LABORATORY [facility] MCHC 32.3 32.0 - 36.0 g/dL 06/29/2023 3:56 AM EDT LABORATORY [facility] RDW 12.6 11.5 - 15.5 % 06/29/2023 3:56 AM EDT LABORATORY [facility] PLT 182 140 - 400 K/uL 06/29/2023 3:56 AM EDT LABORATORY [facility] MPV 10.1 6.6 - 11.1 fL 06/29/2023 3:56 AM EDT LABORATORY [facility] nRBCs 0 <=0 /100 WBCs 06/29/2023 3:56 AM EDT LABORATORY GM Blood Blood sample taken from central line / Unknown Venipuncture / Unknown 06/29/2023 3:39 AM EDT 06/29/2023 3:47 AM EDT Arnulfo Lowe PA-C LAB BLOOD ORDE LYLEKATIE Performing Organization Address City/[facility]/ZIP Co de Phone Number LABORATORY [facility] [address] [place] [address] * (ABNORMAL) URIC ACID, RASBURICASE USER (06/29/2023 3:39 AM EDT) Uric Acid, Rasburicase User 1.6(L) 3.4 - 7.0 mg/dL 06/29/2023 4:16 AM EDT LABORATORY [facility] Blood Blood sample taken from central line / Unknown Venipuncture / Unknown 06/29/2023 3:39 AM EDT 06/29/2023 3:48 AM EDT Pepe Salgado PA-C LAB BLOOD EMA ROBLES Performing Organization Address [facility] Co de Phone Number LABORATORY [facility] [address] [place] [address] * (ABNORMAL) HEPATIC FUNCTION PANEL (06/29/2023 3:39 AM EDT) Albumin 3.1(L) 3.8 - 5.0 g/dL 06/29/2023 4:18 AM EDT LABORATORY [facility] AST 16 10 - 50 U/L 06/29/2023 4:18 AM EDT LABORATORY [facility] Alkaline Phosphatase 57 35 - 130 U/L 06/29/2023 4:18 AM EDT LABORATORY [facility] ALT 31 10 - 50 U/L 06/29/2023 4:18 AM EDT LABORATORY [facility] Bilirubin, Total 0.2 <=1.2 mg/dL 06/29/2023 4:18 AM EDT LABORATORY [facility] Bilirubin, Direct <0.2 0.0 - 0.3 mg/dL 06/29/2023 4:18 AM EDT LABORATORY [facility] Protein 5.3(L) 6.0 - 8.3 g/dL 06/29/2023 4:18 AM EDT LABORATORY [facility] Blood Blood sample taken from central line / Unknown Venipuncture / Unknown 06/29/2023 3:39 AM EDT 06/29/2023 3:47 AM EDT Pepe Salgado PA-C LAB BLOOD ORDJuan ALVARENGAKATIE Performing Organization Address [facility]/ZIP Co de Phone Number LABORATORY [facility] [address] [place] [address] * LD (06/29/2023 3:39 AM EDT) LD 225 <=250 U/L 06/29/2023 4:1 8 AM EDT LABORATORY [facility] Blood Blood sample taken from central line / Unknown Venipuncture / Unknown 06/29/2023 3:39 AM EDT 06/29/2023 3:47 AM EDT Pepe Salgado PA-C LAB BLOOD EMA ROBLES Performing Organization Address [facility] [[email or web address]] de Phone Number LABORATORY [facility] [address] [place] [address] * (ABNORMAL) BASIC METABOLIC PANEL (06/29/2023 3:39 AM EDT) BUN 10 6 - 20 mg/dL 06/29/2023 4:18 AM EDT LABORATORY C Creatinine 0.6 0.6 - 1.2 mg/dL 06/29/2023 4:18 AM EDT LABORATORY [facility] Estimated Glomerular Filtration Rate >90 >=60 mL/min 06/29/2023 4:18 AM EDT LABORATORY C Comment:eGFR is calculated b ased on the CKD-EPI 2020 equation Sodium 143 135 - 146 mmol/L 06/29/2023 4:18 AM EDT LABORATORY [facility] Potassium 3.1(L) 3.5 - 5.1 mmol/L 06/29/2023 4:18 AM EDT LABORATORY [facility] Chloride 114(H) 98 - 107 mmol/L 06/29/2023 4:18 AM EDT LABORATORY [facility] CO2 21(L) 22 - 32 mmol/L 06/29/2023 4:18 AM EDT LABORATORY [facility] Anion Gap 8 7 - 15 mmol/L 06/29/2023 4:18 AM EDT LABORATORY [facility] Glucose 102 70 - 120 mg/dL 06/29/2023 4:18 AM EDT LABORATORY [facility] Calcium 8.0(L) 8.4 - 10.2 mg/dL 06/29/2023 4:18 AM EDT LABORATORY [facility] Blood Blood sample taken from central line / Unknown Venipuncture / Unknown 06/29/2023 3:39 AM EDT 06/29/2023 3:47 AM EDT Eleuterio Hermosillo PA-C LAB BLOOD ORDE TRAVIS Performing Organization Address City/[facility]/ZIP Co de Phone Number LABORATORY [facility] [address] [place] [address] * PHOSPHORUS (06/29/2023 3:39 AM EDT) Phosphorus 2.9 2.5 - 4.8 mg/dL 06/29/2023 4:18 AM EDT LABORATORY [facility] Blood Blood sample taken from central line / Unknown Venipuncture / Unknown 06/29/2023 3:39 AM EDT 06/29/2023 3:47 AM EDT Eleuterio Hermosillo PA-C LAB BLOOD ORDE TRAVIS Performing Organization Address [facility] Co de Phone Number LABORATORY [facility] [address] [place] [address] * MAGNESIUM (06/29/2023 3:39 AM EDT) Magnesium 1.6 1.5 - 2.6 mg/dL 06/29/2023 4:18 AM EDT LABORATORY [facility] Blood Blood sample taken from central line / Unknown Venipuncture / Unknown 06/29/2023 3:39 AM EDT 06/29/2023 3:47 AM EDT Muna Solitario DO LAB BLOOD ORDERABLES Performing Organization Address [facility] Co de Phone Number LABORATORY [facility] [address] [place] [address] * GLUCOSE METER, POINT OF CARE (06/29/2023 2:25 AM EDT) Glucose Meter 104 70 - 120 mg/dL 06/29/2023 2:29 AM EDT [facility] Blood Whole blood specimen / Unknown 06/29/2023 2:25 AM EDT 06/29/2023 2:29 AM EDT Drake Pyle MD LAB POINT OF CARE TEST DOCKED DEVICE UNSOLICITED RESULTS [facility] [address] [place] [address] * (ABNORMAL) GLUCOSE METER, POINT OF CARE (06/28/2023 9:32 PM EDT) Glucose Meter 143(H) 70 - 120 mg/dL 06/28/2023 9:34 PM EDT [facility] Blood Whole blood specimen / Unknown 06/28/2023 9:32 PM EDT 06/28/2023 9:34 PM EDT Drake Pyle MD LAB POINT OF CARE TEST DOCKED DEVICE UNSOLICITED RESULTS Performing Organization Address [facility] Co de Phone Number [facility] [address] [place] [address] * (ABNORMAL) URIC ACID, RASBURICASE USER (06/28/2023 6:18 PM EDT) Uric Acid, Rasburicase User 1.8(L) 3.4 - 7.0 mg/dL 06/28/2023 6:43 PM EDT LABORATORY [facility] Blood Venous blood specimen / Unknown Venipuncture / Unknown 06/28/2023 6:18 PM EDT 06/28/2023 6:25 PM EDT Pepe Salgado PA-C LAB BLOOD [facility] [address] [place] [address] * (ABNORMAL) BASIC METABOLIC PANEL (06/28/2023 6:18 PM EDT) BUN 12 6 - 20 mg/dL 06/28/2023 6:51 PM EDT [facility] Creatinine 0.7 0.6 - 1.2 mg/dL 06/28/2023 6:51 PM EDT [facility] Estimated Glomerular Filtration Rate >90 >=60 mL/min 06/28/2023 6:51 PM EDT [facility] Comment:eGFR is calculated b ased on the CKD-EPI 2020 equation Sodium 138 135 - 146 mmol/L 06/28/2023 6:51 PM EDT [facility] Potassium 3.9 3.5 - 5.1 mmol/L 06/28/2023 6:51 PM EDT [facility] Chloride 107 98 - 107 mmol/L 06/28/2023 6:51 PM EDT [facility] CO2 22 22 - 32 mmol/L 06/28/2023 6:51 PM EDT [facility] Anion Gap 9 7 - 15 mmol/L 06/28/2023 6:51 PM EDT [facility] Glucose 158(H) 70 - 120 mg/dL 06/28/2023 6:51 PM EDT [facility] Calcium 8.8 8.4 - 10.2 mg/dL 06/28/2023 6:51 PM EDT LABORATORY C Blood Venous blood specimen / Unknown Venipuncture / Unknown 06/28/2023 6:18 PM EDT 06/28/2023 6:25 PM EDT Eleuterio Hermosillo PA-C LAB BLOOD EMA ROBLES LABORATORY [facility] [address] [place] [address] * PHOSPHORUS (06/28/2023 6:18 PM EDT) Phosphorus 3.1 2.5 - 4.8 mg/dL 06/28/2023 6:51 PM EDT LABORATORY [facility] Blood Venous blood specimen / Unknown Venipuncture / Unknown 06/28/2023 6:18 PM EDT 06/28/2023 6:25 PM EDT Eleuterio Hermosillo PA-C LAB BLOOD ORDE TRAVIS LABORATORY [facility] [address] [place] [address] * (ABNORMAL) GLUCOSE METER, POINT OF CARE (06/28/2023 4:20 PM EDT) Glucose Meter 168(H) 70 - 120 mg/dL 06/28/2023 4:23 PM EDT [employer] Blood Whole blood specimen / Unknown 06/28/2023 4:20 PM EDT 06/28/2023 4:23 PM EDT Drake Pyle MD LAB POINT OF CARE TEST DOCKED DEVICE UNSOLICITED RESULTS Performing Organization Address [facility] Co de Phone Number [facility] [address] [place] [address] * (ABNORMAL) GLUCOSE METER, POINT OF CARE (06/28/2023 11:29 AM EDT) Glucose Meter 135(H) 70 - 120 mg/dL 06/28/2023 11:32 AM EDT [employer] [facility] Blood Whole blood specimen / Unknown 06/28/2023 11:29 AM EDT 06/28/2023 11:32 AM EDT Drake Pyle MD LAB POINT OF CARE TEST DOCKED DEVICE UNSOLICITED RESULTS Performing Organization Address [facility]/ZIP Co de Phone Number [facility] [address] [place] [address] * (ABNORMAL) DIFFERENTIAL, AUTOMATED (06/28/2023 9:05 AM EDT) WBC 9.99 4.00 - 10.80 K/uL 06/28/2023 9:35 AM EDT LABORATORY [facility] Neutrophils % 67.9 40.0 - 75.0 % 06/28/2023 9:35 AM EDT LABORATORY [facility] Lymphocytes % 17.3(L) 18.0 - 42.0 % 06/28/2023 9:35 AM EDT LABORATORY [facility] Monocytes % 14.1(H) 1.0 - 11.0 % 06/28/2023 9:35 AM EDT LABORATORY [facility] Eosinophils % 0.0 0.0 - 6.0 % 06/28/2023 9:35 AM EDT LABORATORY [facility] Basophils % 0.2 0.0 - 2.0 % 06/28/2023 9:35 AM EDT LABORATORY [facility] Immature Granulocytes % 0.5 0.0 - 2.0 % 06/28/2023 9:35 AM EDT LABORATORY [facility] Absolute Neutrophils 6.78 1.80 - 7.70 K/uL 06/28/2023 9:35 AM EDT LABORATORY [facility] Absolute Lymphocytes 1.73 1.00 - 4.80 K/ul 06/28/2023 9:35 AM EDT LABORATORY [facility] Absolute Monocytes 1.41(H) 0.00 - 1.10 K/uL 06/28/2023 9:35 AM EDT LABORATORY [facility] Absolute Eosinophils 0.00 0.00 - 0.70 K/uL 06/28/2023 9:35 AM EDT LABORATORY [facility] Absolute Basophils 0.02 0.00 - 0.20 K/uL 06/28/2023 9:35 AM EDT LABORATORY [facility] Absolute Immature Granulocytes 0.05 0.00 - 0.20 K/uL 06/28/2023 9:35 AM EDT LABORATORY [facility] Blood Venous blood specimen / Unknown Venipuncture / Unknown 06/28/2023 9:05 AM EDT 06/28/2023 9:22 AM EDT Arnulfo Lowe PA-C LAB BLOOD EMA ROBLES [facility] Organization Address City/State/ZIP Co de Phone Number LABORATORY [facility] [address] [place] [address] * (ABNORMAL) CBC (06/28/2023 9:05 AM EDT) WBC 9.99 4.00 - 10.80 K/uL 06/28/2023 9:35 AM EDT LABORATORY [facility] RBC 3.81 4.50 - 5.25 M/uL 06/28/2023 9:35 AM EDT LABORATORY [facility] HGB 11.4(L) 14.0 - 16.8 g/dL 06/28/2023 9:35 AM EDT LABORATORY [facility] HCT 34.5(L) 40.0 - 48.4 % 06/28/2023 9:35 AM EDT LABORATORY [facility] MCV 90.6 82.0 - 99.5 fL 06/28/2023 9:35 AM EDT LABORATORY [facility] MCH 29.9 27.0 - 34.0 pg 06/28/2023 9:35 AM EDT LABORATORY [facility] MCHC 33.0 32.0 - 36.0 g/dL 06/28/2023 9:35 AM EDT LABORATORY [facility] RDW 12.7 11.5 - 15.5 % 06/28/2023 9:35 AM EDT LABORATORY [facility] PLT 237 140 - 400 K/uL 06/28/2023 9:35 AM EDT LABORATORY [facility] MPV 10.1 6.6 - 11.1 fL 06/28/2023 9:35 AM EDT LABORATORY [facility] nRBCs 0 <=0 /100 WBCs 06/28/2023 9:35 AM EDT LABORATORY [facility] Blood Venous blood specimen / Unknown Venipuncture / Unknown 06/28/2023 9:05 AM EDT 06/28/2023 9:22 AM EDT Arnulfo Lowe PA-C [facility] Organization Address City/State/[facility] Co de Phone Number LABORATORY [facility] [address] [place] [address] * (ABNORMAL) URIC ACID, RASBURICASE USER (06/28/2023 9:05 AM EDT) Uric Acid, Rasburicase User 1.5(L) 3.4 - 7.0 mg/dL 06/28/2023 9:43 AM EDT LABORATORY [facility] Blood Venous blood specimen / Unknown Venipuncture / Unknown 06/28/2023 9:05 AM EDT 06/28/2023 9:14 AM EDT Pepe Salgado PA-C LAB BLOOD ORDJuan TRAVIS Performing Organization Address [facility] [[email or web address]] de Phone Number LABORATORY [facility] [address] [place] [address] * HEPATIC FUNCTION PANEL (06/28/2023 9:05 AM EDT) Albumin 4.1 3.8 - 5.0 g/dL 06/28/2023 9:51 AM EDT LABORATORY [facility] AST 27 10 - 50 U/L 06/28/2023 9:51 AM EDT LABORATORY [facility] Alkaline Phosphatase 73 35 - 130 U/L 06/28/2023 9:51 AM EDT LABORATORY [facility] ALT 44 10 - 50 U/L 06/28/2023 9:51 AM EDT LABORATORY [facility] Bilirubin, Total 0.2 <=1.2 mg/dL 06/28/2023 9:51 AM EDT LABORATORY [facility] Bilirubin, Direct <0.2 0.0 - 0.3 mg/dL 06/28/2023 9:51 AM EDT LABORATORY [facility] Protein 6.9 6.0 - 8.3 g/dL 06/28/2023 9:51 AM EDT LABORATORY [facility] Blood Venous blood specimen / Unknown Venipuncture / Unknown 06/28/2023 9:05 AM EDT 06/28/2023 9:22 AM EDT Pepe Salgado PA-C LAB BLOOD EMA ROBLES Performing Organization Address [facility] [[email or web address]] de Phone Number LABORATORY [facility] [address] [place] [address] * (ABNORMAL) LD (06/28/2023 9:05 AM EDT) LD 395(H) <=250 U/L 06/28/2023 9:51 AM EDT LABORATORY [facility] Blood Venous blood specimen / Unknown Venipuncture / Unknown 06/28/2023 9:05 AM EDT 06/28/2023 9:22 AM EDT Pepe Salgado PA-C LAB BLOOD ORDJuan ROBLES LABORATORY [facility] [address] [place] [address] * BASIC METABOLIC PANEL (06/28/2023 9:05 AM EDT) BUN 11 6 - 20 mg/dL 06/28/2023 9:51 AM EDT LABORATORY [facility] Creatinine 0.7 0.6 - 1.2 mg/dL 06/28/2023 9:51 AM EDT LABORATORY [facility] Estimated Glomerular Filtration Rate >90 >=60 mL/min 06/28/2023 9:51 AM EDT LABORATORY [facility] Comment:eGFR is calculated b ased on the CKD-EPI 2020 equation Sodium 140 135 - 146 mmol/L 06/28/2023 9:51 AM EDT LABORATORY [facility] Potassium 4.2 3.5 - 5.1 mmol/L 06/28/2023 9:51 AM EDT LABORATORY [facility] Chloride 107 98 - 107 mmol/L 06/28/2023 9:51 AM EDT LABORATORY [facility] CO2 22 22 - 32 mmol/L 06/28/2023 9:51 AM EDT LABORATORY [facility] Anion Gap 11 7 - 15 mmol/L 06/28/2023 9:51 AM EDT LABORATORY [facility] Glucose 119 70 - 120 mg/dL 06/28/2023 9:51 AM EDT LABORATORY [facility] Calcium 9.8 8.4 - 10.2 mg/dL 06/28/2023 9:51 AM EDT LABORATORY [facility] Blood Venous blood specimen / Unknown Venipuncture / Unknown 06/28/2023 9:05 AM EDT 06/28/2023 9:22 AM EDT Eleuterio Hermosillo PA-C LAB BLOOD ORDJuan ROBLES LABORATORY [facility] [address] [place] [address] * PHOSPHORUS (06/28/2023 9:05 AM EDT) Phosphorus 3.2 2.5 - 4.8 mg/dL 06/28/2023 9:51 AM EDT LABORATORY [facility] Blood Venous blood specimen / Unknown Venipuncture / Unknown 06/28/2023 9:05 AM EDT 06/28/2023 9:22 AM EDT Eleuterio Hermosillo PA-C LAB BLOOD ORDE RABLES LABORATORY [facility] [address] [place] [address] * MAGNESIUM (06/28/2023 9:05 AM EDT) Magnesium 1.9 1.5 - 2.6 mg/dL 06/28/2023 9:51 AM EDT LABORATORY [facility] Blood Venous blood specimen / Unknown Venipuncture / Unknown 06/28/2023 9:05 AM EDT 06/28/2023 9:22 AM EDT Muna Solitario DO LAB BLOOD ORDERABLES LABORATORY [facility] [address] [place] [address] * GLUCOSE METER, POINT OF CARE (06/28/2023 6:30 AM EDT) Glucose Meter 110 70 - 120 mg/dL 06/28/2023 6:44 AM EDT [facility] Blood Whole blood specimen / Unknown 06/28/2023 6:30 AM EDT 06/28/2023 6:44 AM EDT Drake Pyle MD LAB POINT OF CARE TEST DOCKED DEVICE UNSOLICITED RESULTS Performing Organization Address City/[facility]/ZIP Co de Phone Number [facility] [address] [place] [address] * (ABNORMAL) GLUCOSE METER, POINT OF CARE (06/27/2023 9:10 PM EDT) Glucose Meter 200(H) 70 - 120 mg/dL 06/27/2023 9:29 PM EDT [facility] Blood Whole blood specimen / Unknown 06/27/2023 9:10 PM EDT 06/27/2023 9:29 PM EDT Drake Pyle MD LAB POINT OF CARE TEST DOCKED DEVICE UNSOLICITED RESULTS Performing Organization Address City/[facility]/ZIP Co de Phone Number [facility] [address] [place] [address] * (ABNORMAL) URIC ACID, RASBURICASE USER (06/27/2023 5:32 PM EDT) Uric Acid, Rasburicase User 1.3(L) 3.4 - 7.0 mg/dL 06/27/2023 6:13 PM EDT LABORATORY [facility] Blood Venous blood specimen / Unknown Venipuncture / Unknown 06/27/2023 5:32 PM EDT 06/27/2023 5:38 PM EDT Brittany Islas MD LAB BLOOD O RDERABLES LABORATORY [facility] [address] [place] [address] * (ABNORMAL) BASIC METABOLIC PANEL (06/27/2023 5:31 PM EDT) BUN 13 6 - 20 mg/dL 06/27/2023 6:08 PM EDT LABORATORY [facility] Creatinine 0.6 0.6 - 1.2 mg/dL 06/27/2023 6:08 PM EDT LABORATORY [facility] Estimated Glomerular Filtration Rate >90 >=60 mL/min 06/27/2023 6:08 PM EDT LABORATORY [facility] Comment:eGFR is calculated b ased on the CKD-EPI 2020 equation Sodium 135 135 - 146 mmol/L 06/27/2023 6:08 PM EDT LABORATORY [facility] Potassium 3.7 3.5 - 5.1 mmol/L 06/27/2023 6:08 PM EDT LABORATORY [facility] Chloride 105 98 - 107 mmol/L 06/27/2023 6:08 PM EDT LABORATORY [facility] CO2 19(L) 22 - 32 mmol/L 06/27/2023 6:08 PM EDT LABORATORY [facility] Anion Gap 11 7 - 15 mmol/L 06/27/2023 6:08 PM EDT LABORATORY [facility] Glucose 168(H) 70 - 120 mg/dL 06/27/2023 6:08 PM EDT LABORATORY [facility] Calcium 9.4 8.4 - 10.2 mg/dL 06/27/2023 6:08 PM EDT LABORATORY [facility] Blood Venous blood specimen / Unknown Venipuncture / Unknown 06/27/2023 5:31 PM EDT 06/27/2023 5:38 PM EDT Eleuterio Hermosillo PA-C LAB BLOOD ORDJuan ALVARENGAKATIE LABORATORY [facility] [address] [place] [address] * PHOSPHORUS (06/27/2023 5:31 PM EDT) Phosphorus 2.7 2.5 - 4.8 mg/dL 06/27/2023 6:08 PM EDT LABORATORY [facility] Blood Venous blood specimen / Unknown Venipuncture / Unknown 06/27/2023 5:31 PM EDT 06/27/2023 5:38 PM EDT Eleuterio Hermosillo PA-C LAB BLOOD ORDE TRAVIS Performing Organization Address [facility]/ZIP Co de Phone Number LABORATORY [place] [address] [place] [address] * (ABNORMAL) GLUCOSE METER, POINT OF CARE (06/27/2023 4:11 PM EDT) Glucose Meter 131(H) 70 - 120 mg/dL 06/27/2023 4:47 PM EDT [employer] Blood Whole blood specimen / Unknown 06/27/2023 4:11 PM EDT 06/27/2023 4:47 PM EDT Drake Pyle MD LAB POINT OF CARE TEST DOCKED DEVICE UNSOLICITED RESULTS [facility] [address] [place] [address] * GLUCOSE METER, POINT OF CARE (06/27/2023 10:55 AM EDT) Glucose Meter 99 70 - 120 mg/dL 06/27/2023 11:47 AM EDT [facility] Blood Whole blood specimen / Unknown 06/27/2023 10:55 AM EDT 06/27/2023 11:47 AM EDT Drake Pyle MD LAB POINT OF CARE TEST DOCKED DEVICE UNSOLICITED RESULTS Performing Organization Address [facility] Co de Phone Number [facility] [address] [place] [address] * (ABNORMAL) DIFFERENTIAL, AUTOMATED (06/27/2023 8:12 AM EDT) WBC 9.21 4.00 - 10.80 K/uL 06/27/2023 8:22 AM EDT LABORATORY [facility] Neutrophils % 66.7 40.0 - 75.0 % 06/27/2023 8:22 AM EDT LABORATORY [facility] Lymphocytes % 18.5 18.0 - 42.0 % 06/27/2023 8:22 AM EDT LABORATORY [facility] Monocytes % 14.1(H) 1.0 - 11.0 % 06/27/2023 8:22 AM EDT LABORATORY [facility] Eosinophils % 0.1 0.0 - 6.0 % 06/27/2023 8:22 AM EDT LABORATORY [facility] Basophils % 0.2 0.0 - 2.0 % 06/27/2023 8:22 AM EDT LABORATORY [facility] Immature Granulocytes % 0.4 0.0 - 2.0 % 06/27/2023 8:22 AM EDT LABORATORY [facility] Absolute Neutrophils 6.14 1.80 - 7.70 K/uL 06/27/2023 8:22 AM EDT LABORATORY [facility] Absolute Lymphocytes 1.70 1.00 - 4.80 K/ul 06/27/2023 8:22 AM EDT LABORATORY [facility] Absolute Monocytes 1.30(H) 0.00 - 1.10 K/uL 06/27/2023 8:22 AM EDT LABORATORY [facility] Absolute Eosinophils 0.01 0.00 - 0.70 K/uL 06/27/2023 8:22 AM EDT LABORATORY [facility] Absolute Basophils 0.02 0.00 - 0.20 K/uL 06/27/2023 8:22 AM EDT LABORATORY [facility] Absolute Immature Granulocytes 0.04 0.00 - 0.20 K/uL 06/27/2023 8:22 AM EDT LABORATORY [facility] Blood Venous blood specimen / Unknown Venipuncture / Unknown 06/27/2023 8:12 AM EDT 06/27/2023 8:17 AM EDT Arnulfo Lowe PA-C LAB BLOOD EMA ROBLES [facility] Organization Address City/State/ZIP Co de Phone Number LABORATORY [facility] [address] [place] [address] * (ABNORMAL) CBC (06/27/2023 8:12 AM EDT) Pathologist [facility] WBC 9.21 4.00 - 10.80 K/uL 06/27/2023 8:22 AM EDT LABORATORY [facility] RBC 3.92 4.50 - 5.25 M/uL 06/27/2023 8:22 AM EDT LABORATORY [facility] HGB 11.4(L) 14.0 - 16.8 g/dL 06/27/2023 8:22 AM EDT LABORATORY [facility] HCT 34.9(L) 40.0 - 48.4 % 06/27/2023 8:22 AM EDT LABORATORY [facility] MCV 89.0 82.0 - 99.5 fL 06/27/2023 8:22 AM EDT LABORATORY [facility] MCH 29.1 27.0 - 34.0 pg 06/27/2023 8:22 AM EDT LABORATORY [facility] MCHC 32.7 32.0 - 36.0 g/dL 06/27/2023 8:22 AM EDT LABORATORY [facility] RDW 12.5 11.5 - 15.5 % 06/27/2023 8:22 AM EDT LABORATORY [facility] PLT 227 140 - 400 K/uL 06/27/2023 8:22 AM EDT LABORATORY [facility] MPV 10.0 6.6 - 11.1 fL 06/27/2023 8:22 AM EDT LABORATORY [facility] nRBCs 0 <=0 /100 WBCs 06/27/2023 8:22 AM EDT LABORATORY [facility] Blood Venous blood specimen / Unknown Venipuncture / Unknown 06/27/2023 8:12 AM EDT 06/27/2023 8:17 AM EDT Arnulfo Lowe PA-C LAB BLOOD EMA ROBLES LABORATORY [facility] [address] [place] [address] * BASIC METABOLIC PANEL (06/27/2023 8:12 AM EDT) BUN 12 6 - 20 mg/dL 06/27/2023 8:53 AM EDT LABORATORY [facility] Creatinine 0.7 0.6 - 1.2 mg/dL 06/27/2023 8:53 AM EDT LABORATORY [facility] Estimated Glomerular Filtration Rate >90 >=60 mL/min 06/27/2023 8:53 AM EDT LABORATORY C Comment:eGFR is calculated b ased on the CKD-EPI 2020 equation Sodium 138 135 - 146 mmol/L 06/27/2023 8:53 AM EDT LABORATORY C Potassium 4.0 3.5 - 5.1 mmol/L 06/27/2023 8:53 AM EDT LABORATORY C Chloride 106 98 - 107 mmol/L 06/27/2023 8:53 AM EDT LABORATORY C CO2 22 22 - 32 mmol/L 06/27/2023 8:53 AM EDT LABORATORY C Anion Gap 10 7 - 15 mmol/L 06/27/2023 8:53 AM EDT LABORATORY C Glucose 114 70 - 120 mg/dL 06/27/2023 8:53 AM EDT LABORATORY C Calcium 9.5 8.4 - 10.2 mg/dL 06/27/2023 8:53 AM EDT LABORATORY [facility] Blood Venous blood specimen / Unknown Venipuncture / Unknown 06/27/2023 8:12 AM EDT 06/27/2023 8:17 AM EDT Eleuterio Gilltawana ERNST-Randi LAB BLOOD ORDJuan ROBLES Performing Organization Address [facility] Co de Phone Number LABORATORY [facility] [address] [place] [address] * (ABNORMAL) LD (06/27/2023 8:12 AM EDT) LD 282(H) <=250 U/L 06/27/2023 8:53 AM EDT LABORATORY [facility] Blood Venous blood specimen / Unknown Venipuncture / Unknown 06/27/2023 8:12 AM EDT 06/27/2023 8:17 AM EDT Eleuteriomor Gilltawana DUKES-C LAB BLOOD ORDJuan ROBLES Performing Organization Address [facility] [[email or web address]] de Phone Number LABORATORY [facility] [address] [place] [address] * PHOSPHORUS (06/27/2023 8:12 AM EDT) Phosphorus 3.0 2.5 - 4.8 mg/dL 06/27/2023 8:53 AM EDT LABORATORY C Blood Venous blood specimen / Unknown Venipuncture / Unknown 06/27/2023 8:12 AM EDT 06/27/2023 8:17 AM EDT Eleuteriomor Gilltawana DUKES-C LAB BLOOD ORDJuan ROBLES Performing Organization Address [facility] Co de Phone Number LABORATORY [facility] [address] [place] [address] * (ABNORMAL) URIC ACID (06/27/2023 8:12 AM EDT) Uric Acid 1.2(L) 3.4 - 7.0 mg/dL 06/27/2023 8:53 AM EDT LABORATORY [facility] Blood Venous blood specimen / Unknown Venipuncture / Unknown 06/27/2023 8:12 AM EDT 06/27/2023 8:17 AM EDT Eleuterio Hermosillo PA-C LAB BLOOD ORDE RABLES Performing Organization Address [facility] Co de Phone Number LABORATORY [facility] [address] [place] [address] * MAGNESIUM (06/27/2023 8:12 AM EDT) Magnesium 1.8 1.5 - 2.6 mg/dL 06/27/2023 8:53 AM EDT LABORATORY [facility] Blood Venous blood specimen / Unknown Venipuncture / Unknown 06/27/2023 8:12 AM EDT 06/27/2023 8:17 AM EDT Muna Solitario DO LAB BLOOD ORDERABLES Performing Organization Address [facility] Co de Phone Number LABORATORY [facility] [address] [place] [address] * EXTRA GREEN TOP WITH GEL (06/27/2023 8:07 AM EDT) Blood Venous blood specimen / Unknown 06/27/2023 8:07 AM EDT 06/27/2023 9:02 AM EDT Drake Pyle MD LAB BLOOD OR DERABLES Performing Organization Address [facility] Co de Phone Number LABORATORY [facility] [address] [place] [address] * (ABNORMAL) GLUCOSE METER, POINT OF CARE (06/27/2023 6:59 AM EDT) Glucose Meter 136(H) 70 - 120 mg/dL 06/27/2023 7:06 AM EDT [email or web address] Blood Whole blood specimen / Unknown 06/27/2023 6:59 AM EDT 06/27/2023 7:06 AM EDT Drake Pyle MD LAB POINT OF CARE TEST DOCKED DEVICE UNSOLICITED RESULTS Performing Organization Address City/[facility] Co de Phone Number [facility] [address] [place] [address] * (ABNORMAL) GLUCOSE METER, POINT OF CARE (06/26/2023 10:17 PM EDT) Glucose Meter 196(H) 70 - 120 mg/dL 06/26/2023 11:13 PM EDT [facility] Blood Whole blood specimen / Unknown 06/26/2023 10:17 PM EDT 06/26/2023 11:13 PM EDT Drake Pyle MD LAB POINT OF CARE TEST DOCKED DEVICE UNSOLICITED RESULTS [facility] [address] [place] [address] * (ABNORMAL) LD (06/26/2023 8:45 PM EDT) [facility] LD 257(H) <=250 U/L 06/26/2023 9:23 PM EDT LABORATORY [facility] Blood Venous blood specimen / Unknown Venipuncture / Unknown 06/26/2023 8:45 PM EDT 06/26/2023 8:50 PM EDT Jamal Retana MD LAB BLOOD ORDE RABLES LABORATORY [facility] [address] [place] [address] * (ABNORMAL) BASIC METABOLIC PANEL (06/26/2023 8:45 PM EDT) BUN 10 6 - 20 mg/dL 06/26/2023 9:23 PM EDT LABORATORY [facility] Creatinine 0.8 0.6 - 1.2 mg/dL 06/26/2023 9:23 PM EDT LABORATORY [facility] Estimated Glomerular Filtration Rate >90 >=60 mL/min 06/26/2023 9:23 PM EDT LABORATORY C Comment:eGFR is calculated b ased on the CKD-EPI 2020 equation Sodium 133(L) 135 - 146 mmol/L 06/26/2023 9:23 PM EDT LABORATORY [facility] Potassium 3.7 3.5 - 5.1 mmol/L 06/26/2023 9:23 PM EDT LABORATORY [facility] Chloride 101 98 - 107 mmol/L 06/26/2023 9:23 PM EDT LABORATORY [facility] CO2 22 22 - 32 mmol/L 06/26/2023 9:23 PM EDT LABORATORY [facility] Anion Gap 10 7 - 15 mmol/L 06/26/2023 9:23 PM EDT LABORATORY C Glucose 171(H) 70 - 120 mg/dL 06/26/2023 9:23 PM EDT LABORATORY [facility] Calcium 9.5 8.4 - 10.2 mg/dL 06/26/2023 9:23 PM EDT LABORATORY C Blood Venous blood specimen / Unknown Venipuncture / Unknown 06/26/2023 8:45 PM EDT 06/26/2023 8:50 PM EDT Arnulfo Lowe PA-C LAB BLOOD ORDJuan ROBLES Performing Organization Address City/[facility]/ZIP Co de Phone Number LABORATORY [facility] [address] [place] [address] * (ABNORMAL) PHOSPHORUS (06/26/2023 8:45 PM EDT) Phosphorus 1.7(L) 2.5 - 4.8 mg/dL 06/26/2023 9:23 PM EDT LABORATORY C Blood Venous blood specimen / Unknown Venipuncture / Unknown 06/26/2023 8:45 PM EDT 06/26/2023 8:50 PM EDT Arnulfo oLwe PA-C LAB BLOOD ORDE TRAVIS Performing Organization Address City/[facility]/ZIP Co de Phone Number LABORATORY [facility] [address] [place] [address] * (ABNORMAL) URIC ACID (06/26/2023 8:45 PM EDT) Uric Acid 1.2(L) 3.4 - 7.0 mg/dL 06/26/2023 9:23 PM EDT LABORATORY [facility] Blood Venous blood specimen / Unknown Venipuncture / Unknown 06/26/2023 8:45 PM EDT 06/26/2023 8:50 PM EDT Arnulfo Lowe PA-C LAB BLOOD ORDJuan ROBLES Performing Organization Address [facility] Co de Phone Number LABORATORY [facility] [address] [place] [address] * (ABNORMAL) LD (06/26/2023 6:35 PM EDT) LD 276(H) <=250 U/L 06/26/2023 7:23 PM EDT LABORATORY [facility] Comment:Result may be falsel y elevated due to hemolysis. Blood Venous blood specimen / Unknown Venipuncture / Unknown 06/26/2023 6:35 PM EDT 06/26/2023 6:46 PM EDT Arnulfo Lowe PA-C LAB BLOOD EMA ALVARENGAKATIE Performing Organization Address [facility] Co de Phone Number LABORATORY [facility] [address] [place] [address] * GLUCOSE METER, POINT OF CARE (06/26/2023 1:06 PM EDT) [facility] Glucose Meter 113 70 - 120 mg/dL 06/26/2023 1:08 PM EDT [facility] Blood Whole blood specimen / Unknown 06/26/2023 1:06 PM EDT 06/26/2023 1:08 PM EDT Drake Pyle MD LAB POINT OF CARE TEST DOCKED DEVICE UNSOLICITED RESULTS Performing Organization Address [facility] Co de Phone Number [facility] [address] [place] [address] * HEPATIC FUNCTION PANEL (06/26/2023 8:34 AM EDT) [facility] Signature Albumin 3.9 3.8 - 5.0 g/dL 06/26/2023 7:15 PM EDT LABORATORY [facility] AST 35 10 - 50 U/L 06/26/2023 7:15 PM EDT LABORATORY [facility] Comment:Result may be falsel y elevated due to hemolysis. Alkaline Phosphatase 78 35 - 130 U/L 06/26/2023 7:15 PM EDT LABORATORY [facility] ALT 42 10 - 50 U/L 06/26/2023 7:15 PM EDT LABORATORY [facility] Bilirubin, Total 0.3 <=1.2 mg/dL 06/26/2023 7:15 PM EDT LABORATORY [facility] Bilirubin, Direct <0.2 0.0 - 0.3 mg/dL 06/26/2023 7:15 PM EDT LABORATORY [facility] Protein 7.0 6.0 - 8.3 g/dL 06/26/2023 7:15 PM EDT LABORATORY [facility] Blood Venous blood specimen / Unknown Venipuncture / Unknown 06/26/2023 8:34 AM EDT 06/26/2023 8:45 AM EDT Jamal Retana MD LAB BLOOD ORDJuan ROBLES Performing Organization Address City/[facility]/ZIP Co de Phone Number LABORATORY [facility] [address] [place] [address] * (ABNORMAL) LD (06/26/2023 8:34 AM EDT) Pathologist [facility] LD 278(H) <=250 U/L 06/26/2023 11:19 AM EDT LABORATORY [facility] Comment:Result may be falsel y elevated due to hemolysis. Blood Venous blood specimen / Unknown Venipuncture / Unknown 06/26/2023 8:34 AM EDT 06/26/2023 8:45 AM EDT Arnulfo Lowe PA-C LAB BLOOD ORDE TRAVIS Performing Organization Address [facility] Co de Phone Number LABORATORY [facility] [address] [place] [address] * (ABNORMAL) DIFFERENTIAL, AUTOMATED (06/26/2023 8:34 AM EDT) Pathologist [facility] WBC 7.10 4.00 - 10.80 K/uL 06/26/2023 8:57 AM EDT LABORATORY [facility] Neutrophils % 58.7 40.0 - 75.0 % 06/26/2023 8:57 AM EDT LABORATORY [facility] Lymphocytes % 26.3 18.0 - 42.0 % 06/26/2023 8:57 AM EDT LABORATORY [facility] Monocytes % 13.0(H) 1.0 - 11.0 % 06/26/2023 8:57 AM EDT LABORATORY [facility] Eosinophils % 1.3 0.0 - 6.0 % 06/26/2023 8:57 AM EDT LAB[facility]ATORY [facility] Basophils % 0.4 0.0 - 2.0 % 06/26/2023 8:57 AM EDT LAB[facility]ATORY [facility] Immature Granulocytes % 0.3 0.0 - 2.0 % 06/26/2023 8:57 AM EDT LAB[facility]ATORY [facility] Absolute Neutrophils 4.14 1.80 - 7.70 K/uL 06/26/2023 8:57 AM EDT LAB[facility]ATORY [facility] Absolute Lymphocytes 1.86 1.00 - 4.80 K/ul 06/26/2023 8:57 AM EDT LABORATORY [facility] Absolute Monocytes 0.92 0.00 - 1.10 K/uL 06/26/2023 8:57 AM EDT LABORATORY [facility] Absolute Eosinophils 0.09 0.00 - 0.70 K/uL 06/26/2023 8:57 AM EDT LABORATORY [facility] Absolute Basophils 0.03 0.00 - 0.20 K/uL 06/26/2023 8:57 AM EDT LABORATORY [facility] Absolute Immature Granulocytes 0.02 0.00 - 0.20 K/uL 06/26/2023 8:57 AM EDT LAB[facility]ATORY [facility] Blood Venous blood specimen / Unknown Venipuncture / Unknown 06/26/2023 8:34 AM EDT 06/26/2023 8:45 AM EDT Drake Pyle MD LAB BLOOD OR DERABLES [facility] [address] [place] [address] * (ABNORMAL) URIC ACID, RASBURICASE USER (06/26/2023 8:34 AM EDT) Uric Acid, Rasburicase User 1.1(L) 3.4 - 7.0 mg/dL 06/26/2023 9:06 AM EDT LABORATORY [facility] Blood Venous blood specimen / Unknown Venipuncture / Unknown 06/26/2023 8:34 AM EDT 06/26/2023 8:41 AM EDT Brittany Islas MD LAB BLOOD O RDERABLES LABORATORY [facility] [address] [place] [address] * (ABNORMAL) URIC ACID (06/26/2023 8:34 AM EDT) Pathologist [facility] Uric Acid 1.1(L) 3.4 - 7.0 mg/dL 06/26/2023 9:15 AM EDT LABORATORY [facility] Blood Venous blood specimen / Unknown Venipuncture / Unknown 06/26/2023 8:34 AM EDT 06/26/2023 8:45 AM EDT Pepe Salgado PA-C LAB BLOOD ORDE RABKATIE Performing Organization Address [facility] Co de Phone Number LABORATORY [facility] [address] [place] [address] * PHOSPHORUS (06/26/2023 8:34 AM EDT) Pathologist [facility] Phosphorus 3.4 2.5 - 4.8 mg/dL 06/26/2023 9:15 AM EDT LABORATORY [facility] Blood Venous blood specimen / Unknown Venipuncture / Unknown 06/26/2023 8:34 AM EDT 06/26/2023 8:45 AM EDT Muna Solitario DO LAB BLOOD ORDERABLES Performing Organization Address [facility]/ZIP Co de Phone Number LABORATORY [facility] [address] [place] [address] * MAGNESIUM (06/26/2023 8:34 AM EDT) Magnesium 1.9 1.5 - 2.6 mg/dL 06/26/2023 9:15 AM EDT LABORATORY [facility] Blood Venous blood specimen / Unknown Venipuncture / Unknown 06/26/2023 8:34 AM EDT 06/26/2023 8:45 AM EDT [facility] LAB BLOOD ORDERABLES Performing Organization Address [facility] Co de Phone Number LABORATORY [facility] [address] [place] [address] * PT INR (06/26/2023 8:34 AM EDT) Prothrombin Time 13.4 11.6 - 15.2 seconds 06/26/2023 9:06 AM EDT LABORATORY [facility] INR 1.0 0.8 - 1.2 06/26/2023 9:06 AM EDT LABORATORY [facility] Blood Venous blood specimen / Unknown Venipuncture / Unknown 06/26/2023 8:34 AM EDT 06/26/2023 8:45 AM EDT Narrative LABORATORY [facility] - 06/26/2023 9:06 AM EDT Warfarin Therapy INR: 2.0-3.0 conventional anticoagulation INR: 2.5-3.5 high intensity [facility] ORDERABLES Performing Organization Address [facility] [[email or web address]] de Phone Number LABORATORY [facility] [address] [place] [address] * (ABNORMAL) CBC (06/26/2023 8:34 AM EDT) WBC 7.10 4.00 - 10.80 K/uL 06/26/2023 8:54 AM EDT LABORATORY GM RBC 3.96 4.50 - 5.25 M/uL 06/26/2023 8:54 AM EDT LABORATORY GM HGB 11.6(L) 14.0 - 16.8 g/dL 06/26/2023 8:54 AM EDT LABORATORY GM HCT 35.0(L) 40.0 - 48.4 % 06/26/2023 8:54 AM EDT LABORATORY [facility] MCV 88.4 82.0 - 99.5 fL 06/26/2023 8:54 AM EDT LABORATORY [facility] MCH 29.3 27.0 - 34.0 pg 06/26/2023 8:54 AM EDT LABORATORY [facility] MCHC 33.1 32.0 - 36.0 g/dL 06/26/2023 8:54 AM EDT LAB[facility]ATORY [facility] RDW 12.5 11.5 - 15.5 % 06/26/2023 8:54 AM EDT LABORATORY [facility] PLT 224 140 - 400 K/uL 06/26/2023 8:54 AM EDT LAB[facility]ATORY [facility] MPV 10.3 6.6 - 11.1 fL 06/26/2023 8:54 AM EDT LABORATORY [facility] nRBCs 0 <=0 /100 WBCs 06/26/2023 8:54 AM EDT LABORATORY GM Blood Venous blood specimen / Unknown Venipuncture / Unknown 06/26/2023 8:34 AM EDT 06/26/2023 8:45 AM EDT Muna Solitario DO LAB BLOOD ORDERABLES LABORATORY [facility] [address] [place] [address] * (ABNORMAL) BASIC METABOLIC PANEL (06/26/2023 8:34 AM EDT) BUN 8 6 - 20 mg/dL 06/26/2023 9:15 AM EDT LABORATORY [facility] Creatinine 0.7 0.6 - 1.2 mg/dL 06/26/2023 9:15 AM EDT LAB[facility]ATORY [facility] Estimated Glomerular Filtration Rate >90 >=60 mL/min 06/26/2023 9:15 AM EDT LABORATORY [facility] Comment:eGFR is calculated b ased on the CKD-EPI 2020 equation Sodium 137 135 - 146 mmol/L 06/26/2023 9:15 AM EDT LABORATORY [facility] Potassium 3.9 3.5 - 5.1 mmol/L 06/26/2023 9:15 AM EDT LAB[facility]ATORY [facility] Chloride 103 98 - 107 mmol/L 06/26/2023 9:15 AM EDT LABORATORY [facility] CO2 25 22 - 32 mmol/L 06/26/2023 9:15 AM EDT LABORATORY [facility] Anion Gap 9 7 - 15 mmol/L 06/26/2023 9:15 AM EDT LABORATORY [facility] Glucose 155(H) 70 - 120 mg/dL 06/26/2023 9:15 AM EDT LABORATORY [facility] Calcium 9.4 8.4 - 10.2 mg/dL 06/26/2023 9:15 AM EDT LABORATORY [facility] Blood Venous blood specimen / Unknown Venipuncture / Unknown 06/26/2023 8:34 AM EDT 06/26/2023 8:45 AM EDT Muna Solitario DO LAB BLOOD ORDERABLES LABORATORY [facility] [address] [place] [address] * CT ABD/PELVIS WO IV/ORAL CONTRAST (06/25/2023 11:26 PM EDT) Anatomical Region Laterality Modality Body, Abdomen, Pelvis Computed T omography 06/26/2023 9:07 AM EDT Impressions 06/26/2023 9:05 AM EDT IMPRESSION 1. There is a confluent lobulated [...] 6. Nonobstructing calculi in the left kidney. Narrative 06/26/2023 9:05 AM EDT EXAM EXAM: CT ABD/PELVIS WO IV/ORAL CONTRAST DATE and TIME: 06/25/2023 11:26 pm HISTORY CLINICAL INFORMATION: Abdominal pain with High grade lymphoma. Interval changes in abdominal mass. TECHNIQUE Oral Contrast: Oral contrast was not administered. IV Contrast: No IV Contrast used. Abdomen/Pelvis: without intravenous contrast Evaluation of the viscera and vasculature is limited without the benefit of oral and IV contrast. COMPARISON Compared with CT scan of the abdomen and pelvis from 06/20/2023 FINDINGS LOWER CHEST: HEART(visualized): There is a catheter whose tip is in the right ventricle. LUNG BASES: There are patchy ill-defined infiltrates in the lung bases. There is a left lower lobe nodule measuring 7 mm. These do not appear significantly changed from 06/20/2023. ABDOMEN/PELVIS: LINES AND DEVICES: Catheter tip in the right ventricle. LIVER: Unremarkable BILE DUCTS: Unremarkable GALLBLADDER: Unremarkable PANCREAS: Unremarkable SPLEEN: The spleen has a transverse dimension of 14 cm and is mildly enlarged. ADRENALS: Unremarkable KIDNEYS/URETERS: Again noted are nonobstructing calculi in the left kidney. There is no hydronephrosis. BLADDER: Unremarkable BOWEL: There is no evidence for bowel obstruction. LYMPH NODES: Again noted is a confluent lobulated mass in the retroperitoneum compatible with adenopathy. This measures approximately 7.3 x 7.4 x 7.6 cm (previously 7.1 x 6.7 x 8.0 cm when measured in similar fashion). This may be slightly increased from the previous examination. There is also increased fat stranding noted around the mass. There is encasement of the vasculature which is suboptimally assessed given the lack of IV contrast. VESSELS: There is vascular encasement by the retroperitoneal ronald mass but suboptimally assessed due to lack of IV contrast. REPRODUCTIVE ORGANS: Unremarkable PERITONEUM/RETROPERITONEUM: There is increased retroperitoneal fat stranding compared to the prior examination. There is some stranding in the root of the small bowel mesentery as well. There is no free intraperitoneal air or fluid. ABDOMINAL WALL/SOFT TISSUES: Unremarkable BONES: Unremarkable Procedure Note Jose Eduardo Pino MD - 06/26/2023 EXAM EXAM: CT ABD/PELVIS WO IV/ORAL CONTRAST DATE and TIME: 06/25/2023 11:26 pm HISTORY CLINICAL INFORMATION: Abdominal pain with High grade lymphoma. Intervalchanges in abdominal mass. TECHNIQUE Oral Contrast: Oral contrast was not administered. IV Contrast: No IV Contrast used. Abdomen/Pelvis: without intravenous contrast Evaluation of the viscera and vasculature is limited without the benefitof oral and IV contrast. COMPARISON Compared with CT scan of the abdomen and pelvis from 06/20/2023 FINDINGS LOWER CHEST: HEART(visualized): There is a catheter whose tip is in the rightventricle. LUNG BASES: There are patchy ill-defined infiltrates in the lung bases.There is a left lower lobe nodule measuring 7 mm. These do not appearsignificantly changed from 06/20/2023. ABDOMEN/PELVIS: LINES AND DEVICES: Catheter tip in the right ventricle. LIVER: Unremarkable BILE DUCTS: Unremarkable GALLBLADDER: Unremarkable PANCREAS: Unremarkable SPLEEN: The spleen has a transverse dimension of 14 cm and is mildlyenlarged. ADRENALS: Unremarkable KIDNEYS/URETERS: Again noted are nonobstructing calculi in the leftkidney. There is no hydronephrosis. BLADDER: Unremarkable BOWEL: There is no evidence for bowel obstruction. LYMPH NODES: Again noted is a confluent lobulated mass in theretroperitoneum compatible with adenopathy. This measures approximately7.3 x 7.4 x 7.6 cm (previously 7.1 x 6.7 x 8.0 cm when measured in similarfashion). This may be slightly increased from the previous examination.There is also increased fat stranding noted around the mass. There isencasement of the vasculature which is suboptimally assessed given thelack of IV contrast. VESSELS: There is vascular encasement by the retroperitoneal ronald massbut suboptimally assessed due to lack of IV contrast. REPRODUCTIVE ORGANS: Unremarkable PERITONEUM/RETROPERITONEUM: There is increased retroperitoneal fatstranding compared to the prior examination. There is some stranding inthe root of the small bowel mesentery as well. There is no freeintraperitoneal air or fluid. ABDOMINAL WALL/SOFT TISSUES: Unremarkable BONES: Unremarkable IMPRESSION IMPRESSION 1. There is a confluent lobulated mass in the retroperitoneum compatiblewith adenopathy. This may be slightly increased in size from the previousexamination. There is also increased fat stranding noted around the mass.There is encasement of the vasculature which is suboptimally assessed dueto lack of IV contrast. 2. There is some stranding in the root of the small bowel mesentery aswell. 3. There are patchy ill-defined infiltrates in the lung bases. There is aleft lower lobe nodule measuring 7 mm. These do not appear significantlychanged from 06/20/2023. 4. There is a catheter whose tip is in the right ventricle. 5. The spleen is mildly enlarged. 6. Nonobstructing calculi in the left kidney. Jamal Retana MD RAD CT * XR CHEST 1 VIEW (06/25/2023 9:44 PM EDT) Anatomical Region Laterality Modality Chest Computed Radiogr aphy 06/26/2023 7:48 AM EDT Impressions 06/26/2023 7:45 AM EDT IMPRESSION Right PICC with tip at the mid right atrium. Narrative 06/26/2023 7:45 AM EDT EXAM XR CHEST 1 VIEW-06/25/2023 9:44 pm HISTORY picc tip eval COMPARISON XR chest 04/23/2022. TECHNIQUE Single portable frontal view of the chest. FINDINGS Lines/Tubes: Right PICC with tip at the mid right atrium. Lungs/Pleura: Low lung volumes with bibasilar atelectasis. No discernible pleural effusion or pneumothorax. Heart/Mediastinum: Size and contours are within normal limits. Bones/Soft Tissues: Unremarkable. Upper Abdomen: Visualized portions are unremarkable. Procedure Note TriffoEmeka MD - 06/26/2023 EXAM XR CHEST 1 VIEW-06/25/2023 9:44 pm HISTORY picc tip eval COMPARISON XR chest 04/23/2022. TECHNIQUE Single portable frontal view of the chest. FINDINGS Lines/Tubes: Right PICC with tip at the mid right atrium. Lungs/Pleura: Low lung volumes with bibasilar atelectasis. No discerniblepleural effusion or pneumothorax. Heart/Mediastinum: Size and contours are within normal limits. Bones/Soft Tissues: Unremarkable. Upper Abdomen: Visualized portions are unremarkable. IMPRESSION IMPRESSION Right PICC with tip at the mid right atrium. Drake Pyle MD RADIOLOGY (R AD GENERAL) * Central Line (06/25/2023 6:57 PM EDT) Narrative Maryjo Joe RN - 06/25/2023 6:57 PM EDT Maryjo Joe RN 06/25/2023 7:07 PM Central Line General Information and Staff: Performed by: Maryjo Joe RN Assisted by: Mirna Gutierrez RN Supervised by: Mirna Gutierrez RN Patient Location: Med/Surg Indication: Chemotherapy Patient identity confirmed: Verbally with patient and arm band Verbal confirmation: MRN, name and date of Verbal consent obtained: Yes Written consent obtained: Yes Written consent obtained as part of Anesthesia consent: No Consent given by: Patient and parent Understanding of procedure being performed: Yes Understanding of procedure matches verbalized consent: Yes Procedure consent matches procedure scheduled: Yes Allergies reviewed: Yes Site marked: yes Verify correct position: Yes Radiology Studies available/reviewed: yes Relevant Lab Results available/reviewed: yes Required items available: yes Other healthcare professional(s) verbalize(s) agreement with time out: Yes Name(s): Mirna Del Rio RN Time out: Immediately prior to the procedure a time out was completed Anticoagulation therapy: Yes Medication: Heparin and Other (comment) (Aspirin) Procedure Detail: Sterility Preparation: mask worn, sterile gloves worn, cap worn, sterile sheet used, sterile gown worn and full body drape Provider Hand Hygiene: alcohol-based hand rub Medical Reason for Not Performing Maximal Sterile Barrier Technique: No Placement conditions: Elective Patient Position: Supine Prep: Chlorhexidine Local Anesthetic Used: Yes Catheter Type: Power PICC PICC Laterality: Right and Upper PICC Site: Arm PICC Vessel: Basilic Catheter size: 4 Fr Catheter Total Length (cm): 48 Catheter Internal Length (cm): 48 Catheter External Length (cm): 0 Lot Number: [id number] Number of Lumens: Double lumen Oximetric Catheter?: No Number of Needle Passes: 1 Placement: target vein identified, needle advanced into vein and blood aspirated and guidewire advanced into vein Radiologic Support with Sterile Technique: ultrasound guidance used Sterile gel and probe cover used for ultrasound?: Yes Other: X-ray ordered Outcomes/Complications: patient tolerated procedure well with no complications Estimated blood loss (mL): 1 ml PA Catheter Placed?: No Post Insertion: Post Insertion Details: all ports aspirated, all ports flushed easily, guidewire was removed, examined and appears intact and dressing was applied Site cleansed: Chlorhexidine Line secured with: Adhesive Securement Device and Tissue Adhesive Dressing applied: Gel Chlorhexidine Gluconate, Transparent and Occlusive Tip Confirmation: Other Confirmation Other: X-ray pending Tip Location: Pending Attestation: Attestation: I personally performed the procedure myself Additional Comments: Prior to insertion both guide wire and PICC Line wire inspected and found to be intact. Upon completion of procedure again both wires inspected and found to be intact (Guide wire measuring 50.25cm in total and completely intact). All witnessed by myself and my PICC Assist. Jamal Retana MD ANESTHESIA * FLOW CYTOMETRY, LEUKEMIA LYMPHOMA PANEL (06/25/2023 2:17 PM EDT) Indication for Flow Testing Rule out lymphoma 06/26/2023 3:18 PM EDT LABORATORY [facility] Viability (%) Specimen A: 96 % 06/26/2023 3:18 PM EDT LABORATORY [facility] Cell Count Specimen A: 4580 Cells/uL in 2.0 mL of fluid Cells/u L in mL of Fluid 06/26/2023 3:18 PM EDT LABORATORY [facility] Gross Description A. Bone Marrow, Aspirate. Specimen: A, Source: Bone Marrow, Aspirate See 06/26/2023 3:18 PM EDT LABORATORY [facility] Flow Interpretation Flow cytometry analysis of bone marrow aspirate reveals no evidence of lymphoma or acute leukemia. See Comment. COMMENT: Please refer to the corresponding bone marrow report ([id number]) for additional diagnostic information. Clinical correlation is recommended. The analysis is performed by multi-parameter flow cytometry. Lymphocyte population is traditional lymphocyte gating is composed of approximately 16% of the total, is composed of mostly benign heterogeneous T cells with CD4 and CD8 subsets and about 20% polyclonal B cells. There is no abnormal expansion of natural killer cells On CD45 versus dot plot histogram, the blast population on blast window is not expanded, and comprises about 1% to 2% of the total. There is a small fraction of hematogones. Myeloid population comprises approximately 61% of the total, which shows no apparent phenotypic aberrancy. There is no increased basophils or eosinophils. Monocytic population is about 10% of the total, which shows no apparent phenotypic abnormalities. 06/26/2023 3:18 PM EDT LABORATORY [facility] Markers Performed A1: KAPPA (FITC), LAMBDA (PE), CD5 (SIAPIII53), CD19 (PE-CY7), CD20 (APC), CD23 (APC R700), CD45 (APCH7), FMC7 (BV450), CD43 RUO (BV510), CD10 (BV605). A2: CD8 (FITC), CD16 (PE), CD3 (VPJSGCB21), CD5 (PE-CY7), CD14 (APC), CD56 (APC R700), CD45 (APCH7), CD2 (BV450), CD4 (BV510), CD7 (BV605). 06/26/2023 3:18 PM EDT LABORATORY [facility] Performing Labs 3:18 PM EDT LABORATORY [facility] Comment:Performed at [facility] ([facility]), [address] [place] [id number]. Flow Disclaimer Photographic images and diagrams represent garcia findings in this case; they are not intended to replace a complete review of the final diagnostic report. The following statement applies to Flow Cytometry, Histology, In situ Hybridization Assays and Molecular Genetics. This test was developed and performed at [facility] and its performance characteristics determined by [facility] [employer]. It has not been cleared or approved [...] with appropriate positive and negative control reactions. 06/26/2023 3:18 PM EDT LABORATORY [facility] Bone Marrow Specimen from bone marrow obtained by aspiration / Unknown 06/25/2023 2:17 PM EDT 06/26/2023 12:14 PM EDT Jamal Retana MD LAB PATHOLOGY ORDERABLES LABORATORY [address] [address] * BONE MARROW WITH REFLEX TESTING (06/25/2023 2:17 PM EDT) Diagnosis Bone marrow, left posterior iliac crest, aspirate, biopsy, clot, touch imprints and peripheral blood: - Normocellular marrow with trilineage hematopoiesis. Negative for lymphoma. 06/26/2023 3:17 PM EDT LABORATORY [facility] Clinical History Lymphoma, rule out BM involvement 06/26/2023 3:17 PM EDT LABORATORY [facility] Bone Marrow Aspirate Microscopic Findings Aspirate Adequacy: adequate. Core Touch Imprint Adequacy: adeqaute. Blasts: within normal limits. Myelopoiesis: full spectrum of maturation; no dysplasia identified. Erythropoiesis: full spectrum of maturation; no dysplasia identified. Megakaryocytes: unremarkable morphology. Lymphocytes: within normal limits. Plasma Cells: within normal limits. 06/26/2023 3:17 PM EDT LABORATORY [facility] Iron Status No ringed sideroblasts. 06/26/2023 3:17 PM EDT LABORATORY [facility] Bone Marrow Biopsy and Clot Microscopic Findings [...] cells: not increased. Monocytic cells: not increased. 06/26/2023 3:17 PM EDT LABORATORY [facility] Peripheral Blood Microscopic Findings CBC resulted date/time: 06/25/2023 0842 EDT. WBC: 7.06 K/uL, HGB: 12.1 g/dL, MCV: 88.2 fL, RDW: 12.5 %, PLT: 232 K/uL Red Blood Cells: normocytic/normoc hromic red blood cells. White Blood Cells: normal white blood cell morphology. Platelets: normal in number; normal platelet morphology. 06/26/2023 3:17 PM EDT LABORATORY [facility] Immunostains and Special Stains Flow cytometry analysis of the bone marrow aspirate demonstrated no evidence of monotypic or abnormal T-cell population consistent with a benign lymphoid population (linked report [id number]). 06/26/2023 3:17 PM EDT LABORATORY [facility] Bone Marrow Aspirate Differential Value % Reference Range % Blasts 1 0-3 Early myeloid precursors 13 11-15 Neutrophils and other late precursors 34 22-40 Eosinophils and precursors 1 1-5 Monocytes 5 0-2 Erythroid precursors 30 15-25 Lymphocytes 15 10-15 Plasma Cells 1 0-1 06/26/2023 3:17 PM EDT LABORATORY [facility] Peripheral Blood Differential Value % Reference Range % Neutrophils 50 40-75 Lymphocytes 31 18-42 Monocytes 16 1-11 Eosinophils 2 0-6 Metamyelocytes 1 <=0 06/26/2023 3:17 PM EDT LABORATORY [facility] Gross Description A. Bone Marrow Biopsy, Left Iliac Crest. Received in B+ fixative with a container labeled with "Farhad [employer] Joan", "[id number]", "1990" and "left iliac crest". Received is a red-brown cylindrical portion of bone measuring 0.5 x 0.2 cm. The specimen is wrapped and submitted in A1 following decalcification. Grossed By: RINKU Church Bone Marrow Clot, Left Iliac Crest. Received in B plus fixative with a container labeled with "Farhad M Joan", "[id number]", "1990" and " left iliac crest". Received is a 0.8 x 0.9 cm aggregate of red-brown blood clot. The specimen is wrapped and submitted entirely in E1 .Gross By: RINKU 06/26/2023 3:17 PM EDT LABORATORY [facility] Sign Out Location Pathologist sign out performed at [facility] ([facility]), [address] [place] [address]. 06/26/2023 3:17 PM EDT LABORATORY [facility] Photographic images and diagrams represent garcia findings in this case; they are not intended to replace a complete review of the final diagnostic report. The following statement applies to Flow Cytometry, Histology, In situ Hybridization Assays and Molecular Genetics. This test was developed and performed at [facility] and its performance characteristics determined by [employer]. It has not been cleared or approved [...] with appropriate positive and negative control reactions. 06/26/2023 3:17 PM EDT LABORATORY C Bone Marrow (Bone Marrow Biopsy, Left Iliac Crest) Non-blood Collection / Unknown 06/25/2023 2:17 PM EDT 06/25/2023 3:18 PM EDT Bone marrow specimen (specimen) (Bone Marrow Aspirate, Left Iliac Crest) Non-blood Collection / Unknown 06/25/2023 2:17 PM EDT 06/25/2023 3:21 PM EDT Bone marrow specimen (specimen) Venous blood specimen / Unknown 06/25/2023 2:17 PM EDT 06/25/2023 3:21 PM EDT Bone marrow specimen (specimen) (Bone Marrow Clot, Left Iliac Crest) 06/25/2023 2:17 PM EDT 06/25/2023 3:29 PM EDT Jamal Retana MD LAB PATHOLOGY ORDERABLES Performing Organization Address City/[facility]/ZIP Co de Phone Number LABORATORY [facility] [address] [place] [address] * BONE MARROW ASPIRATE GREEN (FLOW) (06/25/2023 2:17 PM EDT) Pathologist [facility] Bone Marrow for Flow Cytometry Yes 06/26/2023 12:14 PM EDT LABORATORY [facility] Bone Marrow Specimen from bone marrow obtained by aspiration / Unknown 06/25/2023 2:17 PM EDT 06/25/2023 3:11 PM EDT Jamal Retana MD LAB MOLECULAR ORDERABLES LABORATORY [facility] [address] [place] [address] * (ABNORMAL) DIFFERENTIAL, AUTOMATED (06/25/2023 8:20 AM EDT) Pathologist [facility] WBC 7.06 4.00 - 10.80 K/uL 06/25/2023 3:05 PM EDT LABORATORY [facility] Neutrophils % 50.0 40.0 - 75.0 % 06/25/2023 3:05 PM EDT LABORATORY [facility] Lymphocytes % 31.3 18.0 - 42.0 % 06/25/2023 3:05 PM EDT LABORATORY [facility] Monocytes % 16.0(H) 1.0 - 11.0 % 06/25/2023 3:05 PM EDT LABORATORY [facility] Eosinophils % 1.8 0.0 - 6.0 % 06/25/2023 3:05 PM EDT LABORATORY [facility] Basophils % 0.6 0.0 - 2.0 % 06/25/2023 3:05 PM EDT LABORATORY [facility] Immature Granulocytes % 0.3 0.0 - 2.0 % 06/25/2023 3:05 PM EDT LABORATORY [facility] Absolute Neutrophils 3.56 1.80 - 7.70 K/uL 06/25/2023 3:05 PM EDT LABORATORY [facility] Absolute Lymphocytes 2.23 1.00 - 4.80 K/ul 06/25/2023 3:05 PM EDT LABORATORY [facility] Absolute Monocytes 1.14(H) 0.00 - 1.10 K/uL 06/25/2023 3:05 PM EDT LABORATORY [facility] Absolute Eosinophils 0.13 0.00 - 0.70 K/uL 06/25/2023 3:05 PM EDT LABORATORY [facility] Absolute Basophils 0.04 0.00 - 0.20 K/uL 06/25/2023 3:05 PM EDT LABORATORY [facility] Absolute Immature Granulocytes 0.02 0.00 - 0.20 K/uL 06/25/2023 3:05 PM EDT LABORATORY [facility] Blood Venous blood specimen / Unknown Venipuncture / Unknown 06/25/2023 8:20 AM EDT 06/25/2023 8:25 AM EDT Drake Pyle MD LAB BLOOD OR DERABLES LABORATORY [facility] [address] [place] [address] * (ABNORMAL) URIC ACID (06/25/2023 8:20 AM EDT) Uric Acid 1.8(L) 3.4 - 7.0 mg/dL 06/25/2023 9:57 AM EDT LABORATORY [facility] Blood Venous blood specimen / Unknown Venipuncture / Unknown 06/25/2023 8:20 AM EDT 06/25/2023 8:25 AM EDT Pepe Salgado PA-C LAB BLOOD ORDE TRAVIS Performing Organization Address [facility] Co de Phone Number LABORATORY C [address] [place] [address] * PHOSPHORUS (06/25/2023 8:20 AM EDT) Phosphorus 3.4 2.5 - 4.8 mg/dL 06/25/2023 9:57 AM EDT LABORATORY [facility] Blood Venous blood specimen / Unknown Venipuncture / Unknown 06/25/2023 8:20 AM EDT 06/25/2023 8:25 AM EDT Muna Oakesjose mariatamela DO LAB BLOOD ORDERABLES Performing Organization Address [facility] Co de Phone Number LABORATORY [facility] [address] [place] [address] * MAGNESIUM (06/25/2023 8:20 AM EDT) Magnesium 1.8 1.5 - 2.6 mg/dL 06/25/2023 9:57 AM EDT LABORATORY [facility] Blood Venous blood specimen / Unknown Venipuncture / Unknown 06/25/2023 8:20 AM EDT 06/25/2023 8:25 AM EDT Muna Solitario DO LAB BLOOD ORDERABLES Performing Organization Address [facility] [[email or web address]] de Phone Number LABORATORY [facility] [address] [place] [address] * (ABNORMAL) CBC (06/25/2023 8:20 AM EDT) WBC 7.06 4.00 - 10.80 K/uL 06/25/2023 8:42 AM EDT LABORATORY [facility] RBC 4.16 4.50 - 5.25 M/uL 06/25/2023 8:42 AM EDT LABORATORY [facility] HGB 12.1(L) 14.0 - 16.8 g/dL 06/25/2023 8:42 AM EDT LABORATORY [facility] HCT 36.7(L) 40.0 - 48.4 % 06/25/2023 8:42 AM EDT LABORATORY [facility] MCV 88.2 82.0 - 99.5 fL 06/25/2023 8:42 AM EDT LABORATORY [facility] MCH 29.1 27.0 - 34.0 pg 06/25/2023 8:42 AM EDT LABORATORY [facility] MCHC 33.0 32.0 - 36.0 g/dL 06/25/2023 8:42 AM EDT LABORATORY [facility] RDW 12.5 11.5 - 15.5 % 06/25/2023 8:42 AM EDT LABORATORY [facility] PLT 232 140 - 400 K/uL 06/25/2023 8:42 AM EDT LABORATORY [facility] MPV 10.2 6.6 - 11.1 fL 06/25/2023 8:42 AM EDT LABORATORY [facility] nRBCs 0 <=0 /100 WBCs 06/25/2023 8:42 AM EDT LABORATORY [facility] Blood Venous blood specimen / Unknown Venipuncture / Unknown 06/25/2023 8:20 AM EDT 06/25/2023 8:25 AM EDT Muna Solitario DO LAB BLOOD ORDERABLES LABORATORY [facility] [address] [place] [address] * BASIC METABOLIC PANEL (06/25/2023 8:20 AM EDT) BUN 13 6 - 20 mg/dL 06/25/2023 9:57 AM EDT LABORATORY [facility] Creatinine 0.7 0.6 - 1.2 mg/dL 06/25/2023 9:57 AM EDT LABORATORY [facility] Estimated Glomerular Filtration Rate >90 >=60 mL/min 06/25/2023 9:57 AM EDT LABORATORY [facility] Comment:eGFR is calculated b ased on the CKD-EPI 2020 equation Sodium 137 135 - 146 mmol/L 06/25/2023 9:57 AM EDT LABORATORY [facility] Potassium 4.0 3.5 - 5.1 mmol/L 06/25/2023 9:57 AM EDT LABORATORY [facility] Chloride 102 98 - 107 mmol/L 06/25/2023 9:57 AM EDT LAB[facility]ATORY [facility] CO2 23 22 - 32 mmol/L 06/25/2023 9:57 AM EDT LABORATORY [facility] Anion Gap 12 7 - 15 mmol/L 06/25/2023 9:57 AM EDT LABORATORY [facility] Glucose 118 70 - 120 mg/dL 06/25/2023 9:57 AM EDT LABORATORY [facility] Calcium 9.3 8.4 - 10.2 mg/dL 06/25/2023 9:57 AM EDT LABORATORY C Blood Venous blood specimen / Unknown Venipuncture / Unknown 06/25/2023 8:20 AM EDT 06/25/2023 8:25 AM EDT Muna Solitario DO LAB BLOOD ORDERABLES Performing Organization Address City/[facility] Co de Phone Number LABORATORY [facility] [address] [place] [address] * HEPATITIS B SURFACE ANTIGEN (06/25/2023 8:20 AM EDT) Hepatitis B Surface Antigen Negative Negative 06/25/2023 11:09 AM EDT LABORATORY [facility] Blood Venous blood specimen / Unknown Venipuncture / Unknown 06/25/2023 8:20 AM EDT 06/25/2023 8:25 AM EDT Brittany Islas MD LAB BLOOD O RDERABLES Performing Organization Address City/[facility]/ZIP Co de Phone Number LABORATORY [facility] [address] [place] [address] * HEPATITIS B SURFACE ANTIBODY (06/25/2023 8:20 AM EDT) Hepatitis B Surface Antibody, Quantitative <3.5 mIU/mL 06/25/2023 11:09 AM EDT LABORATORY [facility] Hepatitis B Surface Antibody, Qualitative Negative 06/25/2023 11:09 AM EDT LABORATORY [facility] Hepatitis B Surface Antibody, Interpretation NOT immune to Hepatitis B Virus 06/25/2023 11:09 AM EDT LABORATORY [facility] Comment: POSITIVE: >=11.5 mIU/mL INDETERMINATE: 8.5-<11.5 mIU/mL NEGATIVE: <8.5 mIU/mL Blood Venous blood specimen / Unknown Venipuncture / Unknown 06/25/2023 8:20 AM EDT 06/25/2023 8:25 AM EDT Brittany Islas MD LAB BLOOD O RDERABLES Performing Organization Address City/[facility]/ZIP Co de Phone Number LABORATORY [facility] [address] [place] [address] * HEPATITIS B CORE ANTIBODIES IGG AND IGM (06/25/2023 8:20 AM EDT) Pathologist [facility] Hepatitis B Core Antibodies IgG and IgM Negative Negative 06/25/2023 11:09 AM EDT LABORATORY [facility] Blood Venous blood specimen / Unknown Venipuncture / Unknown 06/25/2023 8:20 AM EDT 06/25/2023 8:25 AM EDT Brittany Islas MD LAB BLOOD O RDERABLES Performing Organization Address [facility] Co de Phone Number LABORATORY [facility] [address] [place] [address] * (ABNORMAL) SERUM FREE LIGHT CHAINS (06/25/2023 8:20 AM EDT) [place] Free Light Chains, Serum 31.69(H) 3.30 - 19.40 mg/L 06/25/2023 11:32 AM EDT LABORATORY [facility] [place] Free Light Chains, Serum 20.49 5.71 - 26.30 mg/L 06/25/2023 11:32 AM EDT LABORATORY [facility] [place] Lambda Free Light Chains Ratio 1.55 0.26 - 1.65 06/25/2023 11:32 AM EDT LABORATORY [facility] Blood Venous blood specimen / Unknown Venipuncture / Unknown 06/25/2023 8:20 AM EDT 06/25/2023 8:25 AM EDT Pepe Salgado PA-C LAB BLOOD EMA ROBLES Performing Organization Address City/[facility]/ZIP Co de Phone Number LABORATORY [facility] [address] [place] [address] * (ABNORMAL) URIC ACID, RASBURICASE USER (06/25/2023 8:19 AM EDT) Uric Acid, Rasburicase User 2.5(L) 3.4 - 7.0 mg/dL 06/25/2023 8:52 AM EDT LABORATORY C Blood Venous blood specimen / Unknown Venipuncture / Unknown 06/25/2023 8:19 AM EDT 06/25/2023 8:25 AM EDT Brittany Islas MD LAB BLOOD O RDERABLES Performing Organization Address [facility] Co de Phone Number LABORATORY [facility] [address] [place] [address] * PT INR (06/25/2023 8:19 AM EDT) Prothrombin Time 13.4 11.6 - 15.2 seconds 06/25/2023 8:59 AM EDT LABORATORY [facility] INR 1.0 0.8 - 1.2 06/25/2023 8:59 AM EDT LABORATORY C Blood Venous blood specimen / Unknown Venipuncture / Unknown 06/25/2023 8:19 AM EDT 06/25/2023 8:25 AM EDT Narrative LABORATORY [facility] - 06/25/2023 8:59 AM EDT Warfarin Therapy INR: 2.0-3.0 conventional anticoagulation INR: 2.5-3.5 high intensity anticoagulation Muna Solitario DO LAB BLOOD ORDERABLES Performing Organization Address City/[facility] Co de Phone Number LABORATORY [facility] [address] [place] [address] * GASTROINTESTINAL PATHOGEN PANEL CULTURE (06/24/2023 6:48 PM EDT) Culture Growth No Aeromonas species or Plesiomonas species isolated. 06/26/2023 11:53 AM EDT LABORATORY [facility] Stool Stool specimen / Unknown Non-blood Collection / Unknown 06/24/2023 6:48 PM EDT 06/24/2023 7:01 PM EDT Melanie ZARAGOZA LAB MICRO - GENE RAL ORDERABLES Performing Organization Address [facility]/ZIP Co de Phone Number LABORATORY [facility] [address] [place] [address] * GASTROINTESTINAL PATHOGEN PANEL PCR (06/24/2023 6:48 PM EDT) Campylobacter group by PCR Negative Negative 06/24/2023 10:45 PM EDT LABORATORY [facility] Salmonella species by PCR Negative Negative 06/24/2023 10:45 PM EDT LABORATORY [facility] Shigella species by PCR Negative Negative 06/24/2023 10:45 PM EDT LABORATORY [facility] Vibrio group by PCR Negative Negative 06/24/2023 10:45 PM EDT LABORATORY [facility] Yersinia enterocolitica by PCR Negative Negative 06/24/2023 10:45 PM EDT LABORATORY [facility] Shiga Toxin 1 Gene by PCR Negative Negative 06/24/2023 10:45 PM EDT LABORATORY [facility] Shiga Toxin 2 Gene by PCR Negative Negative 06/24/2023 10:45 PM EDT LABORATORY [facility] Norovirus by PCR Negative Negative 06/24/19 10:45 PM EDT LABORATORY [facility] Rotavirus by PCR Negative Negative 06/24/19 10:45 PM EDT LABORATORY [facility] Stool Stool specimen / Unknown Non-blood Collection / Unknown 06/24/2023 6:48 PM EDT 06/24/2023 7:01 PM EDT Melanie ZARAGOZA LAB MICRO - GENE RAL ORDERABLES Performing Organization Address [facility]/ZIP Co de Phone Number LABORATORY [facility] [address] [place] [address] * CLOSTRIDIUM DIFFICILE, PCR (06/24/2023 6:48 PM EDT) Pathologist [facility] Stool Consistency Liquid 06/24/2023 8:27 PM EDT LABORATORY [facility] Clostridium difficile Result Negative. No C. difficile toxin B gene DNA detected by PCR (Amplified Probe). Negative 06/24/2023 8:27 PM EDT LABORATORY [facility] Stool Stool specimen / Unknown Non-blood Collection / Unknown 06/24/2023 6:48 PM EDT 06/24/2023 7:01 PM EDT Melanie ZARAGOZA LAB MICRO - GENE RAL ORDERABLES Performing Organization Address [facility] [[email or web address]] de Phone Number LABORATORY [address] [address] * ACUTE HEPATITIS PANEL (06/24/2023 4:18 PM EDT) [facility] Hepatitis A Antibody IgM Negative Negative 06/25/2023 3:45 AM EDT LABORATORY [facility] Hepatitis B Core Antibody IgM Negative Negative 06/25/2023 3:45 AM EDT LABORATORY [facility] Hepatitis B Surface Antigen Negative Negative 06/25/2023 3:45 AM EDT LABORATORY [facility] Hepatitis C Antibody Negative Negative 06/25/2023 3:45 AM EDT LABORATORY [facility] Blood Venous blood specimen / Unknown Venipuncture / Unknown 06/24/2023 4:18 PM EDT 06/24/2023 4:24 PM EDT Brittany Islas MD LAB BLOOD O RDERABLES Performing Organization Address [facility] Co de Phone Number LABORATORY [place] [address] [place] [address] * HIV ANTIGEN & ANTIBODY SCREEN W/ CONFIRMATION (06/24/2023 4:18 PM EDT) [facility] HIV Antigen & Antibody Negative Negative 06/25/2023 12:30 AM EDT LABORATORY [facility] Comment:Negative HIV-1/2 ant igen and antibody screening tset results usually indicate the absence of HIV-1 and HIV-2 infection. However, such negative results do not rule-out acute HIV infection. If acute HIV-1 infection is highly suspected, it is recommended that a specimen be submitted for detection of HIV-1 RNA. Blood Venous blood specimen / Unknown Venipuncture / Unknown 06/24/2023 4:18 PM EDT 06/24/2023 4:24 PM EDT Brittany Islas MD LAB BLOOD O RDERABLES Performing Organization Address [facility] Co de Phone Number LABORATORY [facility] [address] [place] [address] * ECHO, COMPLETE (2D), TRANS-THORACIC (06/24/2023 3:47 PM EDT) Pathologist [facility] LEFT VENTRICULAR EJECTION FRACTION 55 % [facility] CARDIOLOGY 06/24/2023 3:17 PM EDT Pepe Salgado PA-C ECHOCARDIOLOGY Performing Organization Address [facility] [[email or web address]] de Phone Number [facility] * (ABNORMAL) URIC ACID (06/24/2023 8:01 AM EDT) Uric Acid 8.7(H) 3.4 - 7.0 mg/dL 06/24/2023 3:09 PM EDT LABORATORY [facility] Blood Venous blood specimen / Unknown Venipuncture / Unknown 06/24/2023 8:01 AM EDT 06/24/2023 8:09 AM EDT Pepe Salgado PA-C LAB BLOOD ORDE RABLES Performing Organization Address [facility] [[email or web address]] de Phone Number LABORATORY [facility] [address] [place] [address] * PHOSPHORUS (06/24/2023 8:01 AM EDT) Phosphorus 4.1 2.5 - 4.8 mg/dL 06/24/2023 8:38 AM EDT LABORATORY [facility] Blood Venous blood specimen / Unknown Venipuncture / Unknown 06/24/2023 8:01 AM EDT 06/24/2023 8:09 AM EDT Muna Solitario DO LAB BLOOD ORDERABLES Performing Organization Address [facility] Co de Phone Number LABORATORY [facility] [address] [place] [address] * MAGNESIUM (06/24/2023 8:01 AM EDT) Magnesium 2.0 1.5 - 2.6 mg/dL 06/24/2023 8:38 AM EDT LABORATORY [facility] Blood Venous blood specimen / Unknown Venipuncture / Unknown 06/24/2023 8:01 AM EDT 06/24/2023 8:09 AM EDT Muna Solitario LAB BLOOD ORDERABLES Performing Organization Address [facility] Phone Number LABORATORY [place] [address] [place] [address] * PT INR (06/24/2023 8:01 AM EDT) Prothrombin Time 13.4 11.6 - 15.2 seconds 06/24/2023 9:09 AM EDT LABORATORY [facility] INR 1.0 0.8 - 1.2 06/24/2023 9:09 AM EDT LABORATORY [facility] Blood Venous blood specimen / Unknown Venipuncture / Unknown 06/24/2023 8:01 AM EDT 06/24/2023 8:10 AM EDT Narrative LABORATORY C - 06/24/2023 9:09 AM EDT Warfarin Therapy INR: 2.0-3.0 conventional anticoagulation INR: 2.5-3.5 high intensity anticoagulation Muna Solitario DO LAB BLOOD ORDERABLES Performing Organization Address [facility] Co de Phone Number LABORATORY [facility] [address] [place] [address] * CBC (06/24/2023 8:01 AM EDT) WBC 7.75 4.00 - 10.80 K/uL 06/24/2023 8:17 AM EDT LABORATORY [facility] RBC 4.81 4.50 - 5.25 M/uL 06/24/2023 8:17 AM EDT LABORATORY [facility] HGB 14.0 14.0 - 16.8 g/dL 06/24/2023 8:17 AM EDT LABORATORY [facility] HCT 40.6 40.0 - 48.4 % 06/24/2023 8:17 AM EDT LABORATORY [facility] MCV 84.4 82.0 - 99.5 fL 06/24/2023 8:17 AM EDT LABORATORY [facility] MCH 29.1 27.0 - 34.0 pg 06/24/2023 8:17 AM EDT LABORATORY [facility] MCHC 34.5 32.0 - 36.0 g/dL 06/24/2023 8:17 AM EDT LABORATORY [facility] RDW 12.3 11.5 - 15.5 % 06/24/2023 8:17 AM EDT LABORATORY [facility] PLT 248 140 - 400 K/uL 06/24/2023 8:17 AM EDT LABORATORY [facility] MPV 10.1 6.6 - 11.1 fL 06/24/2023 8:17 AM EDT LABORATORY [facility] nRBCs 0 <=0 /100 WBCs 06/24/2023 8:17 AM EDT LABORATORY [facility] Blood Venous blood specimen / Unknown Venipuncture / Unknown 06/24/2023 8:01 AM EDT 06/24/2023 8:10 AM EDT Muna Solitario DO LAB BLOOD ORDERABLES Performing Organization Address City/State/[facility] Co de Phone Number LABORATORY [facility] [address] [place] [address] * BASIC METABOLIC PANEL (06/24/2023 8:01 AM EDT) BUN 13 6 - 20 mg/dL 06/24/2023 8:38 AM EDT LABORATORY [facility] Creatinine 0.8 0.6 - 1.2 mg/dL 06/24/2023 8:38 AM EDT LABORATORY [facility] Estimated Glomerular Filtration Rate >90 >=60 mL/min 06/24/2023 8:38 AM EDT LABORATORY [facility] Comment:eGFR is calculated b ased on the CKD-EPI 2020 equation Sodium 137 135 - 146 mmol/L 06/24/2023 8:38 AM EDT LABORATORY [facility] Potassium 3.5 3.5 - 5.1 mmol/L 06/24/2023 8:38 AM EDT LABORATORY [facility] Chloride 100 98 - 107 mmol/L 06/24/2023 8:38 AM EDT LABORATORY [facility] CO2 25 22 - 32 mmol/L 06/24/2023 8:38 AM EDT LABORATORY [facility] Anion Gap 12 7 - 15 mmol/L 06/24/2023 8:38 AM EDT LABORATORY [facility] Glucose 99 70 - 120 mg/dL 06/24/2023 8:38 AM EDT LABORATORY [facility] Calcium 9.9 8.4 - 10.2 mg/dL 06/24/2023 8:38 AM EDT LABORATORY C Blood Venous blood specimen / Unknown Venipuncture / Unknown 06/24/2023 8:01 AM EDT 06/24/2023 8:09 AM EDT Muna Solitario DO LAB BLOOD ORDERABLES LABORATORY [facility] [address] [place] [address] * (ABNORMAL) LD (06/23/2023 12:32 PM EDT) LD 272(H) <=250 U/L 06/23/2023 1:23 PM EDT LABORATORY [facility] Blood Venous blood specimen / Unknown Venipuncture / Unknown 06/23/2023 12:32 PM EDT 06/23/2023 12:54 PM EDT Pepe Salgado PA-C LAB BLOOD ORDE RABKATIE LABORATORY [facility] [address] [place] [address] * (ABNORMAL) URIC ACID (06/23/2023 6:33 AM EDT) Uric Acid 8.4(H) 3.4 - 7.0 mg/dL 06/23/2023 1:17 PM EDT LABORATORY C Blood Venous blood specimen / Unknown Venipuncture / Unknown 06/23/2023 6:33 AM EDT 06/23/2023 6:45 AM EDT Pepe Salgado PA-C LAB BLOOD ORDE RABLES Performing Organization Address [facility] Co de Phone Number LABORATORY [facility] [address] [place] [address] * PHOSPHORUS (06/23/2023 6:33 AM EDT) Phosphorus 3.6 2.5 - 4.8 mg/dL 06/23/2023 7:15 AM EDT LABORATORY [facility] Blood Venous blood specimen / Unknown Venipuncture / Unknown 06/23/2023 6:33 AM EDT 06/23/2023 6:45 AM EDT Muna Montalvoroberth DO LAB BLOOD ORDERABLES Performing Organization Address [facility] Co de Phone Number LABORATORY [facility] [address] [place] [address] * MAGNESIUM (06/23/2023 6:33 AM EDT) Magnesium 2.1 1.5 - 2.6 mg/dL 06/23/2023 7:15 AM EDT LABORATORY C Blood Venous blood specimen / Unknown Venipuncture / Unknown 06/23/2023 6:33 AM EDT 06/23/2023 6:45 AM EDT Muna Fuentestamela MALDONADO LAB BLOOD ORDERABLES Performing Organization Address [facility] [[email or web address]] de Phone Number LABORATORY [facility] [address] [place] [address] * PT INR (06/23/2023 6:33 AM EDT) Prothrombin Time 13.2 11.6 - 15.2 seconds 06/23/2023 7:09 AM EDT LABORATORY C INR 1.0 0.8 - 1.2 06/23/2023 7:09 AM EDT LABORATORY [facility] Blood Venous blood specimen / Unknown Venipuncture / Unknown 06/23/2023 6:33 AM EDT 06/23/2023 6:45 AM EDT [facility] LABORATORY [facility] - 06/23/2023 7:09 AM EDT Warfarin Therapy INR: 2.0-3.0 conventional anticoagulation INR: 2.5-3.5 high intensity anticoagulation Muna Solitario DO LAB BLOOD ORDERABLES LABORATORY [address] [place] [address] * CBC (06/23/2023 6:33 AM EDT) WBC 9.13 4.00 - 10.80 K/uL 06/23/2023 7:00 AM EDT LABORATORY [facility] RBC 4.87 4.50 - 5.25 M/uL 06/23/2023 7:00 AM EDT LABORATORY [facility] HGB 14.4 14.0 - 16.8 g/dL 06/23/2023 7:00 AM EDT LABORATORY [facility] HCT 41.8 40.0 - 48.4 % 06/23/2023 7:00 AM EDT LABORATORY [facility] MCV 85.8 82.0 - 99.5 fL 06/23/2023 7:00 AM EDT LABORATORY [facility] MCH 29.6 27.0 - 34.0 pg 06/23/2023 7:00 AM EDT LABORATORY GM MCHC 34.4 32.0 - 36.0 g/dL 06/23/2023 7:00 AM EDT LABORATORY [facility] RDW 12.3 11.5 - 15.5 % 06/23/2023 7:00 AM EDT LABORATORY [facility] PLT 257 140 - 400 K/uL 06/23/2023 7:00 AM EDT LABORATORY [facility] MPV 10.1 6.6 - 11.1 fL 06/23/2023 7:00 AM EDT LABORATORY [facility] nRBCs 0 <=0 /100 WBCs 06/23/2023 7:00 AM EDT LABORATORY GM Blood Venous blood specimen / Unknown Venipuncture / Unknown 06/23/2023 6:33 AM EDT 06/23/2023 6:45 AM EDT Muna Labjose mariaosky DO LAB BLOOD ORDERABLES [facility] [address] [place] [address] * BASIC METABOLIC PANEL (06/23/2023 6:33 AM EDT) BUN 9 6 - 20 mg/dL 06/23/2023 7:15 AM EDT [facility] Creatinine 0.9 0.6 - 1.2 mg/dL 06/23/2023 7:15 AM EDT [facility] Estimated Glomerular Filtration Rate >90 >=60 mL/min 06/23/2023 7:15 AM EDT [facility] Comment:eGFR is calculated b ased on the CKD-EPI 2020 equation Sodium 137 135 - 146 mmol/L 06/23/2023 7:15 AM EDT [facility] Potassium 3.7 3.5 - 5.1 mmol/L 06/23/2023 7:15 AM EDT [facility] Chloride 99 98 - 107 mmol/L 06/23/2023 7:15 AM EDT [facility] CO2 27 22 - 32 mmol/L 06/23/2023 7:15 AM EDT [facility] Anion Gap 11 7 - 15 mmol/L 06/23/2023 7:15 AM EDT [facility] Glucose 97 70 - 120 mg/dL 06/23/2023 7:15 AM EDT [facility] Calcium 10.2 8.4 - 10.2 mg/dL 06/23/2023 7:15 AM EDT [facility] Blood Venous blood specimen / Unknown Venipuncture / Unknown 06/23/2023 6:33 AM EDT 06/23/2023 6:45 AM EDT Munagisele Solitario DO LAB BLOOD ORDERABLES [facility] [address] [place] [address] * HIGH-GRADE/LARGE B-CELL LYMPHOMA FISH PANEL (06/22/2023 12:37 PM EDT) External Lab Report See Scanned Report 06/30/2023 1:51 PM EDT [facility] Tissue 06/22/2023 12:3 7 PM EDT 06/24/2023 12:28 PM EDT Muna Solitario DO LAB CYTOGENETICS ORD ERABLES [facility] [id number] [facility] [address] [place] [address], [facility] * FLOW CYTOMETRY, LEUKEMIA LYMPHOMA PANEL (06/22/2023 12:37 PM EDT) Indication for Flow Testing Retroperitoneum mass 06/23/2023 5:22 PM EDT LAB[facility]ORY [facility] Viability (%) Specimen A: 96 % 06/23/2023 5:22 PM EDT [facility] Cell Count Specimen A: 480 Cells/uL in 0.4 mL of fluid Cells/u L in mL of Fluid 06/23/2023 5:22 PM EDT [facility] Gross Description A. Retroperitoneum. Specimen: A, Source: Retroperitoneum See 06/23/2023 5:22 PM EDT LAB[facility] Flow Interpretation Retroperitoneum core biopsy: - [id number] B cell population expressing kappa light chains. [...] cytometry. On CD45 versus dot plot histogram, the lymphoid population comprises approximately 62% of the total events, which contains a monotypic B cell population (51% of lymphocytes) that are medium to large in size based on forward light scattered properties. The monotypic B cells are positive for CD45, CD19, CD20, CD10, CD43, and FMC7 and kappa immunoglobulin light chain. They monotypic B-cells show equivocal CD5 and CD3 expression in a subset of cells and are negative for other markers performed in this study. The remaining cells in the gate are T cells and NK cells. The remaining events (43%) are granulocytic. 06/23/2023 5:22 PM EDT LABORATORY [facility] Markers Performed A1: KAPPA (FITC), LAMBDA (PE), CD5 (FDSGRIG26), CD19 (PE-CY7), CD20 (APC), CD23 (APC R700), CD45 (APCH7), FMC7 (BV450), CD43 RUO (BV510), CD10 (BV605). A2: CD8 (FITC), CD16 (PE), CD3 ([id number]), CD5 (PE-CY7), CD14 (APC), CD56 (APC R700), CD45 (APCH7), CD2 (BV450), CD4 (BV510), CD7 (BV605). A3: CD7 (FITC), CD64 (PE), CD38 (JYDSHIQ17), CD33 (PE-CY7), CD13 (APC), CD34 (APC R700), CD45 (APCH7), CD14 (BV450), ZR52-L123 (BV510), CD117 (BV605). 06/23/2023 5:22 PM EDT LABORATORY [facility] Performing Labs 5:22 PM EDT LABORATORY [facility] Comment:Performed at [facility] ([facility]), [address] [place] [address]. Flow Disclaimer Photographic images and diagrams represent garcia findings in this case; they are not intended to replace a complete review of the final diagnostic report. The following statement applies to Flow Cytometry, Histology, In situ Hybridization Assays and Molecular Genetics. This test was developed and performed at [facility] and its performance characteristics determined by [facility] [employer]. It has not been cleared or approved [...] with appropriate positive and negative control reactions. 06/23/2023 5:22 PM EDT LABORATORY [facility] Tissue Specimen from retroperitoneum / Unknown 06/22/2023 12:37 PM EDT 06/23/2023 2:20 PM EDT Muna Montalvoroberth LAB PATHOLOGY ORDERA SARA Performing Organization Address City/State/[facility] Co de Phone Number LABORATORY [facility] [address] [place] [address] * CYTOLOGY (06/22/2023 12:37 PM EDT) Addendum 2 A. 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 FISH studies BCL2 (18q21) Rearrangement Not Detected BCL6 (3q27) Rearrangement Not Detected MYC (8q24) Rearrangement Detected MYC/IgH/CEN8 t(8;14) Detected Dr. Retana was notified of the updated diagnosis on 07/01/23 at 3:45 PM via secure messaging. 4 3:49 PM EDT LABORATORY [facility] Addendum electronically signed by Ritika Mane DO on 07/01/2023 at 3:49 PM Final Diagnosis A. 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 See comment. 4 3:49 PM EDT LABORATORY [facility] Cytology Diagnostic Comment The differential includes diffuse large B-cell lymphoma with EBV expression, Burkitt's lymphoma, or high grade B-cell lymphoma. Final categorization requires correlation of FISH studies to morphologic evaluation. 4 3:49 PM EDT LABORATORY [facility] Prior Cancer None 4 3:49 PM EDT LABORATORY [facility] Indication for Procedure rapidly enlarging retroperitoneal mass 4 3:49 PM EDT LABORATORY [facility] Gross Description A. Retroperitoneum. Received are 2 air dried and 1 fixed slides and specimen in RPMI labeled with name: Farhad Farnco and retroperitoneum and verified with the patient's name and date of . Specimen A1 contains 3 cores measuring up to 1.5 cm. Specimen A3 contains 2 cores measuring up to 1.5 cm. Specimen sent for cell block and Specimen held for FLOW cytometry. The slides are stained and specimens are prepared for cell blocks at [facility]. The cell blocks are submitted in cassettes A1/A3 and processed at [facility]./MZ Prepared by: XIMENA Formalin fixation time: 10 hours 4 3:49 PM EDT LABORATORY [facility] Microscopic Description B. Sections show small core needle biopsies with small foci of medium-sized to large lymphoid cells. The lymphoid cells have variable amounts of cytoplasm, round to oval nuclei, fine to vesicular chromatin, and several small to medium nucleoli often adjacent to the nuclear membrane. Tingible-body macrophages and variable numbers of small lymphocytes and histiocytes are also present. Immunohistochemica l staining is performed on block A3 to characterize the cells with appropriate staining noted in controls. CD3 stain background small sized T-cells. Melbeta-5 stains B-cells and is diffusely positive in [...] the B-cells. P53 shows weak diffuse staining. 4 3:49 PM EDT LABORATORY [facility] Intraprocedural Assessment A. Retroperitoneum. Collecting Physician: Dr Drew Type of Assessment: Telecytology used Onsite Personnel: Padmini Villafuerte DO Time: 12:37 Source: Retroperitoneum Part: [id number] Pass(es): 1 Adequacy: Less than optimal/Material collected for ancillary studies Preliminary: Defer Additional tube for molecular/Flow: Yes Reason for terminating procedure: Procedure endpoint (reasonable number of passes made) Additional Information: End Time: 13:38 Intraprocedural assessment performed by: Emir Cantu MD Specimen sent for: Specimen sent for cell block and Specimen held for FLOW cytometry 4 3:49 PM EDT LABORATORY [facility] Performing Labs Bundler screening performed at [facility] ([facility]), [address] [place] [address]. Pathologist sign out performed at [facility] ([facility]), [address] [place] [address]. 4 3:49 PM EDT LABORATORY [facility] Photographic images and diagrams represent garcia findings in this case; they are not intended to replace a complete review of the final diagnostic report. The following statement applies to Flow Cytometry, Histology, In situ Hybridization Assays and Molecular Genetics. This test was developed and performed at [facility] and its performance characteristics determined by [facility] [employer]. It has not been cleared or approved [...] with appropriate positive and negative control reactions. 4 3:49 PM EDT LABORATORY [facility] Tissue Specimen from retroperitoneum / Unknown 06/22/2023 12:37 PM EDT 06/22/2023 1:33 PM EDT Muna Labashtamela MALDONADO LAB CYTOLOGY ORDERAB LES Performing Organization Address City/State/[facility] Co de Phone Number LABORATORY [facility] [address] [place] [address] * IR BIOPSY (06/22/2023 11:38 AM EDT) Anatomical Region Laterality Modality Any Computed Tomogra phy 06/23/2023 7:25 AM EDT Impressions 06/23/2023 7:23 AM EDT IMPRESSION: CT-guided percutaneous fine needle aspiration and core biopsy of retroperitoneal mass. PLAN: Ordering clinician to follow-up results with patient. Narrative 06/23/2023 7:23 AM EDT PROCEDURE: CT-guided percutaneous retroperitoneal mass biopsy. INDICATION: Rapidly enlarging retroperitoneal mass. ATTENDING (OPERATING PHYSICIAN): Janice Drew MD SCRUBBED RESIDENT (OPERATING PHYSICIAN): None. SUPPORTING PROVIDER (DOUBLE END TENONER SETTER): RT Lauri CONSENT: After a detailed discussion of the procedure, risks, benefits and alternative treatment options, informed consent was obtained. TIME OUT: A time out procedure was performed. The patient's identification was verified. Informed consent with agreement of procedure, site and position was obtained. All necessary equipment was available prior to procedure. CONTRAST: No contrast administered. COMPLICATIONS: None. ANESTHESIA: Local lidocaine. IV Fentanyl. SEDATION TIME: N/A MEDICATIONS: See MAR PROCEDURE DESCRIPTION: The patient was positioned prone. After survey CT images of the abdomen were performed, the retroperitoneal mass was studied. Then the left flank access site was selected and prepped and draped in the usual sterile fashion. The skin and deep soft tissues were anesthetized and under CT guidance a 17 gauge coaxial needle was advanced just within the mass margin. CTA was performed to confirm safe trajectory for biopsy. After satisfactory positioning was confirmed, the inner stylet was removed and two fine needle aspirations were performed using 22 gauge needles. Four 18 gauge core biopsy specimens were obtained and placed in a vial of sterile saline. All specimen samples were given to the transportation department head. The cannula was then removed, hemostasis was achieved and the site was dressed. The patient tolerated the procedure well. The procedure was performed by Dr. Drew. FINDINGS: Limited CT scan images for the purposes of biopsy demonstrate retroperitoneal mass. Further imaging shows the coaxial needle is seen within the margin of the target with more than adequate distance for the fine needle aspiration. Further imaging shows the biopsy needle within the margin of the target. No immediate complication on post biopsy imaging. Procedure Note Janice Drew MD - 06/23/2023 PROCEDURE: CT-guided percutaneous retroperitoneal mass biopsy. INDICATION: Rapidly enlarging retroperitoneal mass. ATTENDING (OPERATING PHYSICIAN): Janice Drew MD SCRUBBED RESIDENT (OPERATING PHYSICIAN): None. SUPPORTING PROVIDER (DOUBLE END TENONER SETTER): RT Lauri CONSENT: After a detailed discussion of the procedure, risks, benefits andalternative treatment options, informed consent was obtained. TIME OUT: A time out procedure was performed. The patient's identificationwas verified. Informed consent with agreement of procedure, site andposition was obtained. All necessary equipment was available prior toprocedure. CONTRAST: No contrast administered. COMPLICATIONS: None. ANESTHESIA: Local lidocaine. IV Fentanyl. SEDATION TIME: N/A MEDICATIONS: See MAR PROCEDURE DESCRIPTION: The patient was positioned prone. After survey CTimages of the abdomen were performed, the retroperitoneal mass wasstudied. Then the left flank access site was selected and prepped anddraped in the usual sterile fashion. The skin and deep soft tissues wereanesthetized and under CT guidance a 17 gauge coaxial needle was advancedjust within the mass margin. CTA was performed to confirm safe trajectoryfor biopsy. After satisfactory positioning was confirmed, the innerstylet was removed and two fine needle aspirations were performed using 22gauge needles. Four 18 gauge core biopsy specimens were obtained andplaced in a vial of sterile saline. All specimen samples were given to thecytologist. The cannula was then removed, hemostasis was achieved and thesite was dressed. The patient tolerated the procedure well. The procedure was performed by Dr. Drew. FINDINGS: Limited CT scan images for the purposes of biopsy demonstrateretroperitoneal mass. Further imaging shows the coaxial needle is seenwithin the margin of the target with more than adequate distance for thefine needle aspiration. Further imaging shows the biopsy needle within themargin of the target. No immediate complication on post biopsy imaging. IMPRESSION IMPRESSION: CT-guided percutaneous fine needle aspiration and core biopsy ofretroperitoneal mass. PLAN: Ordering clinician to follow-up results with patient. Muna Solitario DO RAD SPECIAL PROCEDUR ES * (ABNORMAL) PAOLA-RYAN VIRUS DNA, QUANTITATIVE REAL-TIME PCR (06/22/2023 7:31 AM EDT) Source Whole Blood 06/26/2023 1:14 PM EDT [facility] EBV DNA, QN PCR 81579(H) copies/mL 1:14 PM EDT [facility] EBV DNA, QN PCR 4.91(H) Log cps/mL 06/26/2023 1:14 PM EDT [facility] Comment: Reference Range: Not Detected For additional information, please refer to http://education.Bulb.Bioclones/faq/CMVandEBVPCR (This link is being provided for informational/ educational purposes only.) This test was developed and its analytical performance characteristics have been determined by [facility] [place], [place]. It has not been cleared or approved by the U.S. Food and Drug Administration. This assay has been validated pursuant to the CLIA regulations and is used for clinical purposes. Test Performed at: [facility] [address] Mayco Buchanan M.D., Ph.D.,Director of Laboratories Blood Venous blood specimen / Unknown Venipuncture / Unknown 06/22/2023 7:31 AM EDT 06/22/2023 7:51 AM EDT Brittany Islas MD LAB BLOOD O RDERABLES Performing Organization Address [facility]/ZIP Co de Phone Number [facility] [address] [address] * PHOSPHORUS (06/22/2023 7:31 AM EDT) Phosphorus 3.3 2.5 - 4.8 mg/dL 06/22/2023 8:19 AM EDT LABORATORY [facility] Blood Venous blood specimen / Unknown Venipuncture / Unknown 06/22/2023 7:31 AM EDT 06/22/2023 7:52 AM EDT Muna Solitario DO LAB BLOOD ORDERABLES Performing Organization Address City/[facility]/ZIP Co de Phone Number LABORATORY [facility] [address] [place] [address] * MAGNESIUM (06/22/2023 7:31 AM EDT) Magnesium 1.9 1.5 - 2.6 mg/dL 06/22/2023 8:19 AM EDT LABORATORY [facility] Blood Venous blood specimen / Unknown Venipuncture / Unknown 06/22/2023 7:31 AM EDT 06/22/2023 7:52 AM EDT Muna Solitario DO LAB BLOOD ORDERABLES LABORATORY [facility] [address] [place] [address] * PT INR (06/22/2023 7:31 AM EDT) Prothrombin Time 13.9 11.6 - 15.2 seconds 06/22/2023 8:13 AM EDT LABORATORY [facility] INR 1.1 0.8 - 1.2 06/22/2023 8:13 AM EDT LABORATORY [facility] Blood Venous blood specimen / Unknown Venipuncture / Unknown 06/22/2023 7:31 AM EDT 06/22/2023 7:52 AM EDT Narrative LABORATORY [facility] - 06/22/2023 8:13 AM EDT Warfarin Therapy INR: 2.0-3.0 conventional anticoagulation INR: 2.5-3.5 high intensity anticoagulation Muna Solitario LAB BLOOD ORDERABLES LABORATORY [facility] [address] [place] [address] * (ABNORMAL) CBC (06/22/2023 7:31 AM EDT) WBC 9.47 4.00 - 10.80 K/uL 06/22/2023 8:00 AM EDT LABORATORY GM RBC 4.37 4.50 - 5.25 M/uL 06/22/2023 8:00 AM EDT LABORATORY [facility] HGB 13.1(L) 14.0 - 16.8 g/dL 06/22/2023 8:00 AM EDT LABORATORY [facility] HCT 37.2(L) 40.0 - 48.4 % 06/22/2023 8:00 AM EDT LABORATORY [facility] MCV 85.1 82.0 - 99.5 fL 06/22/2023 8:00 AM EDT LABORATORY [facility] MCH 30.0 27.0 - 34.0 pg 06/22/2023 8:00 AM EDT LABORATORY [facility] MCHC 35.2 32.0 - 36.0 g/dL 06/22/2023 8:00 AM EDT LABORATORY [facility] RDW 12.2 11.5 - 15.5 % 06/22/2023 8:00 AM EDT LABORATORY [facility] PLT 217 140 - 400 K/uL 06/22/2023 8:00 AM EDT LABORATORY [facility] MPV 10.0 6.6 - 11.1 fL 06/22/2023 8:00 AM EDT LABORATORY [facility] nRBCs 0 <=0 /100 WBCs 06/22/2023 8:00 AM EDT LABORATORY [facility] Blood Venous blood specimen / Unknown Venipuncture / Unknown 06/22/2023 7:31 AM EDT 06/22/2023 7:51 AM EDT Muna Solitario DO LAB BLOOD ORDERABLES LABORATORY [facility] [address] [place] [address] * (ABNORMAL) BASIC METABOLIC PANEL (06/22/2023 7:31 AM EDT) BUN 10 6 - 20 mg/dL 06/22/2023 8:19 AM EDT LABORATORY [facility] Creatinine 0.9 0.6 - 1.2 mg/dL 06/22/2023 8:19 AM EDT LABORATORY [facility] Estimated Glomerular Filtration Rate >90 >=60 mL/min 06/22/2023 8:19 AM EDT LABORATORY [facility] Comment:eGFR is calculated b ased on the CKD-EPI 2020 equation Sodium 137 135 - 146 mmol/L 06/22/2023 8:19 AM EDT LABORATORY [facility] Potassium 3.0(L) 3.5 - 5.1 mmol/L 06/22/2023 8:19 AM EDT LABORATORY [facility] Chloride 99 98 - 107 mmol/L 06/22/2023 8:19 AM EDT LABORATORY [facility] CO2 25 22 - 32 mmol/L 06/22/2023 8:19 AM EDT LABORATORY [facility] Anion Gap 13 7 - 15 mmol/L 06/22/2023 8:19 AM EDT LABORATORY [facility] Glucose 98 70 - 120 mg/dL 06/22/2023 8:19 AM EDT LABORATORY [facility] Calcium 9.5 8.4 - 10.2 mg/dL 06/22/2023 8:19 AM EDT LABORATORY [facility] Blood Venous blood specimen / Unknown Venipuncture / Unknown 06/22/2023 7:31 AM EDT 06/22/2023 7:52 AM EDT Muna Solitario DO LAB BLOOD ORDERABLES Performing Organization Address [facility] Co de Phone Number LABORATORY [facility] [address] [place] [address] * EKG (06/21/2023 5:46 PM EDT) 06/21/2023 5:46 PM EDT Narrative Procedure Note Dylan Sharif MD - 06/21/2023 5:46 PM EDT REASON FOR STUDY: Notify provider if obtaining EKG;Chest pain CONCLUSIONS: Normal sinus rhythm Normal ECG When compared with ECG of 20-Jun-2023 15:11, No significant change was found Ventricular Rate: 72 Atrial Rate: 72 NM Interval: 162 QRS Duration: 88 QT/QTc: 402/440 ms P-R-T Carson: 31 : 34 : 56 degrees Muna Labjose mariatamela DO EKG Performing Organization Address [facility] Co de Phone Number [facility] * PHOSPHORUS (06/21/2023 7:08 AM EDT) Phosphorus 3.7 2.5 - 4.8 mg/dL 06/21/2023 7:57 AM EDT LABORATORY [facility] Blood Venous blood specimen / Unknown Venipuncture / Unknown 06/21/2023 7:08 AM EDT 06/21/2023 7:30 AM EDT Muna Solitario DO LAB BLOOD ORDERABLES Performing Organization Address [facility] Co de Phone Number LABORATORY [facility] [address] [place] [address] * MAGNESIUM (06/21/2023 7:08 AM EDT) Magnesium 2.0 1.5 - 2.6 mg/dL 06/21/2023 7:57 AM EDT LABORATORY [facility] Blood Venous blood specimen / Unknown Venipuncture / Unknown 06/21/2023 7:08 AM EDT 06/21/2023 7:30 AM EDT Muna Solitario LAB BLOOD ORDERABLES Performing Organization Address [facility] Co de Phone Number LABORATORY [facility] [address] [place] [address] * PT INR (06/21/2023 7:08 AM EDT) Prothrombin Time 14.3 11.6 - 15.2 seconds 06/21/2023 7:54 AM EDT LABORATORY [facility] INR 1.1 0.8 - 1.2 06/21/2023 7:54 AM EDT LABORATORY [facility] Blood Venous blood specimen / Unknown Venipuncture / Unknown 06/21/2023 7:08 AM EDT 06/21/2023 7:30 AM EDT Narrative LABORATORY [facility] - 06/21/2023 7:54 AM EDT Warfarin Therapy INR: 2.0-3.0 conventional anticoagulation INR: 2.5-3.5 high intensity anticoagulation Muna Soltiario LAB BLOOD ORDERABLES Performing Organization Address [facility] Co de Phone Number LABORATORY [facility] [address] [place] [address] * (ABNORMAL) CBC (06/21/2023 7:08 AM EDT) WBC 8.21 4.00 - 10.80 K/uL 06/21/2023 7:40 AM EDT LABORATORY [facility] RBC 4.47 4.50 - 5.25 M/uL 06/21/2023 7:40 AM EDT LABORATORY [facility] HGB 13.1(L) 14.0 - 16.8 g/dL 06/21/2023 7:40 AM EDT LABORATORY [facility] HCT 37.8(L) 40.0 - 48.4 % 06/21/2023 7:40 AM EDT LABORATORY [facility] MCV 84.6 82.0 - 99.5 fL 06/21/2023 7:40 AM EDT LABORATORY [facility] MCH 29.3 27.0 - 34.0 pg 06/21/2023 7:40 AM EDT LABORATORY [facility] MCHC 34.7 32.0 - 36.0 g/dL 06/21/2023 7:40 AM EDT LABORATORY [facility] RDW 12.3 11.5 - 15.5 % 06/21/2023 7:40 AM EDT LABORATORY [facility] PLT 222 140 - 400 K/uL 06/21/2023 7:40 AM EDT LABORATORY [facility] MPV 10.1 6.6 - 11.1 fL 06/21/2023 7:40 AM EDT LABORATORY [facility] nRBCs 0 <=0 /100 WBCs 06/21/2023 7:40 AM EDT LABORATORY [facility] Blood Venous blood specimen / Unknown Venipuncture / Unknown 06/21/2023 7:08 AM EDT 06/21/2023 7:30 AM EDT Muna Solitario DO LAB BLOOD ORDERABLES LABORATORY [facility] [address] [place] [address] * (ABNORMAL) BASIC METABOLIC PANEL (06/21/2023 7:08 AM EDT) BUN 10 6 - 20 mg/dL 06/21/2023 7:57 AM EDT LABORATORY [facility] Creatinine 1.0 0.6 - 1.2 mg/dL 06/21/2023 7:57 AM EDT LABORATORY [facility] Estimated Glomerular Filtration Rate >90 >=60 mL/min 06/21/2023 7:57 AM EDT LABORATORY [facility] Comment:eGFR is calculated b ased on the CKD-EPI 2020 equation Sodium 138 135 - 146 mmol/L 06/21/2023 7:57 AM EDT LABORATORY [facility] Potassium 2.9(L) 3.5 - 5.1 mmol/L 06/21/2023 7:57 AM EDT LABORATORY [facility] Chloride 100 98 - 107 mmol/L 06/21/2023 7:57 AM EDT LABORATORY [facility] CO2 28 22 - 32 mmol/L 06/21/2023 7:57 AM EDT LABORATORY [facility] Anion Gap 10 7 - 15 mmol/L 06/21/2023 7:57 AM EDT LABORATORY [facility] Glucose 107 70 - 120 mg/dL 06/21/2023 7:57 AM EDT LABORATORY [facility] Calcium 9.2 8.4 - 10.2 mg/dL 06/21/2023 7:57 AM EDT LABORATORY [facility] Blood Venous blood specimen / Unknown Venipuncture / Unknown 06/21/2023 7:08 AM EDT 06/21/2023 7:30 AM EDT Muna Kassi MALDONADO LAB BLOOD ORDERABLES LABORATORY [facility] [address] [place] [address] documented in this encounter Visit Diagnoses Diagnosis 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)- Primary Other malignant lymphomas of intra-abdominal lymph nodes Retroperitoneal mass Abdominal or pelvic swelling, mass or lump, unspecified site Chest pain Chest pain, unspecified Encounter for antineoplastic chemotherapy B-cell lymphoma of intra-abdominal lymph nodes, unspecified B-cell lymphoma type (HCC) Retroperitoneal mass Abdominal or pelvic swelling, mass or lump, unspecified site Hypokalemia Hypopotassemia Adjustment disorder with depressed mood Tobacco use disorder History of petit-mal seizures Personal history of other disorders of nervous system and sense organs Cerebral vasculitis Giant cell arteritis HTN, goal below 140/90 Unspecified essential hypertension Kidney stones Calculus of kidney Gastroesophageal reflux disease with esophagitis Neoplasm related pain Neoplasm related pain (acute) (chronic) Therapeutic opioid induced constipation Palliative care encounter Encounter for palliative care Goals of care, counseling/discussion Other specified counseling Burkitt lymphoma of intra-abdominal lymph nodes (HCC) Burkitt's tumor or lymphoma of intra-abdominal lymph nodes Hyperuricemia Other abnormal blood chemistry At high risk of tumor lysis syndrome Other specified conditions influencing health status History of immunosuppression therapy Personal history of immunosuppressive therapy Cancer related pain Neoplasm related pain (acute) (chronic) Admission for antineoplastic chemotherapy Encounter for antineoplastic chemotherapy Therapeutic opioid-induced constipation (OIC) Neoplastic (malignant) related fatigue Pneumonia of left lower lobe due to infectious organism documented in this encounter Administered Medications Inactive Administered Medications - up to 3 most recent administrations Medication Order MAR Action Action Date Dose Rate Site Acetaminophen (Tylenol) tab 650 mg 650 mg, Oral, ONCE, On 06/21/23 at 0315, For 1 dose, Maximum of 4 grams (4000 mg) per day. Given 06/21/2023 3:16 AM EDT 650 mg Acetaminophen (Tylenol) tab 650 mg 650 mg, Oral, Q6H, First dose (after last modification) on 06/21/23 at 1200, Until Discontinued, Maximum of 4 grams (4000 mg) per day. Given 06/27/2023 11:25 AM EDT 325 mg Given 06/27/2023 6:06 AM EDT 650 mg Given 06/26/2023 10:59 PM EDT 650 mg Acetaminophen (Tylenol) tab 650 mg 650 mg, Oral, ONCE, On Tess 06/25/23 at 0200, For 1 dose, Maximum of 4 grams (4000 mg) per day. Given 06/25/2023 1:31 AM EDT 650 mg Acetaminophen (Tylenol) tab 650 mg 650 mg, Oral, Q6H PRN Pain, Mild, Fever >38C(100.5F), Headache, Starting on 06/27/23 at 1545, Until Thu07/07/23 at 1741, Maximum of 4 grams (4000 mg) per day. Given 07/06/2023 12:54 AM EDT 650 m g Given 06/30/2023 3:06 AM EDT 650 mg Given 06/29/2023 3:04 AM EDT 650 mg Acetaminophen (Tylenol) tab 650 mg 650 mg, Oral, ONCE, On 06/29/23 at 0645, For 1 dose, Maximum of 4 grams (4000 mg) per day. Given 06/29/2023 6:25 AM EDT 650 mg Acetaminophen (Tylenol) tab 650 mg 650 mg, Oral, ONCE, On Tess 07/02/23 at 0945, For 1 dose, Maximum of 4 grams (4000 mg) per day. Given 07/02/2023 2:50 PM EDT 650 mg Acyclovir (Zovirax) tab 400 mg 400 mg, Oral, BID (.AM/PM), First dose on Thu06/26/23 at 2100, Until Discontinued Given 07/07/2023 8:45 AM EDT 400 mg Given 07/06/2023 9:11 PM EDT 400 mg Given 07/06/2023 8:27 AM EDT 400 mg Allopurinol (Zyloprim) tab 300 mg 300 mg, Oral, Daily(AM), First dose (after last modification) on Thu06/24/23 at 0900, Until Discontinued Given 06/25/2023 8:18 AM EDT 300 mg Given 06/24/2023 9:33 AM EDT 300 mg Allopurinol (Zyloprim) tab 300 mg 300 mg, Oral, BID (.AM/PM), First dose (after last modification) on Thu06/25/23 at 2100, Until Discontinued Given 07/05/2023 9:22 AM EDT 300 mg Given 07/04/2023 9:58 PM EDT 300 mg Given 07/04/2023 9:56 AM EDT 300 mg Allopurinol (Zyloprim) tab 300 mg 300 mg, Oral, Daily(AM), First dose (after last modification) on Thu07/06/23 at 0900, Until Discontinued Given 07/07/2023 8:45 AM EDT 300 mg Given 07/06/2023 8:27 AM EDT 300 mg Alteplase (Cathflo Activase) inj 2 mg 2 mg, IV Push, PRN line occlusion , Starting on Thu06/25/23 at 1652, Until Thu07/07/23 at 1741, For 15 doses, For use in Catheter occlusion to be administered by IV Therapy nurses only at [facility]. At [facility]: IV Therapy PICC RN, Nursing Aviation Boatswain'S Mate, MSICU RN's and Emergency Department RN's *Obtain Alteplase (CathFlo Activase) *Reconstitute Alteplase (CathFlo Activase) 2mg in 2.2ml sterile water *Instill Alteplase (CathFlo Activase) into occluded lumen(s) *After 30 minutes dwell time in catheter, assess catheter patency by attempting to aspirate blood. If catheter is patent withdraw 4-5 ml of blood to remove Alteplase (CathFlo Activase) and residual clot. Flush lumen with 10ml 0.9% normal saline *If catheter function is not restored allow for further dwell up to 120 minutes. *If catheter function is not restored, a second dose of Alteplase (CathFlo Activase) may be administered. *if catheter is stll not restored call a physician amoxicillin-clavulanate (Augmentin) tab 875 mg 875 mg, Oral, Q12H, First dose on Thu07/06/23 at 2100, Last dose on Thu07/16/23 at 0900, For 10 days Given 07/07/2023 8:45 AM EDT 875 mg Given 07/06/2023 9:11 PM EDT 875 mg aspirin enteric coated tab 81 mg 81 mg, Oral, Daily(AM), First dose (after last modification) on Thu06/22/23 at 0900, Until Discontinued Given 07/01/2023 8:52 AM EDT 81 mg Given 06/30/2023 9:23 AM EDT 81 mg Given 06/29/2023 8:26 AM EDT 81 mg aspirin enteric coated tab 81 mg 81 mg, Oral, Daily(AM), First dose (after last modification) on Thu07/03/23 at 0900, Until Discontinued Given 07/07/2023 8:45 AM EDT 81 mg Given 07/06/2023 8:27 AM EDT 81 mg Given 07/05/2023 9:22 AM EDT 81 mg buffered lidocaine 1 % inj 10 mL 10 mL, Intradermal, Q15 MINUTES, First dose on Thu06/25/23 at 1430, Last dose on Thu06/25/23 at 1445, For 2 doses, Buffered with sodium bicarbonate to be used for bone marrow only Given 06/25/2023 2:30 PM EDT 10 mL buprenorphine hcl (Belbuca) buccal film 150 mcg 150 mcg, Buccal, Q12H, First dose on Thu06/23/23 at 2145, Until Discontinued Given 06/25/2023 11:01 AM EDT 150 mcg Given 06/24/2023 9:32 PM EDT 150 mcg Given 06/24/2023 9:32 AM EDT 150 mcg buprenorphine hcl (Belbuca) buccal film 300 mcg 300 mcg, Buccal, Q12H, First dose on Thu06/25/23 at 2100, Until Discontinued Given 06/27/2023 9:39 AM EDT 300 mcg Given 06/26/2023 10:10 PM EDT 300 mcg Given 06/26/2023 8:01 AM EDT 300 mcg buprenorphine hcl (Belbuca) buccal film 300 mcg 300 mcg, Buccal, ONCE, On Thu06/27/23 at 1200, For 1 dose, Do now Given 06/27/2023 11:25 AM EDT 300 mcg buprenorphine hcl (Belbuca) buccal film 600 mcg 600 mcg, Buccal, Q12H, First dose on Thu06/27/23 at 2100, Until Discontinued Given 06/28/2023 9:57 AM EDT 600 mcg Given 06/27/2023 10:26 PM EDT 600 mcg buprenorphine hcl (Belbuca) buccal film 75 mcg 75 mcg, Buccal, Daily(AM), First dose on Thu06/23/23 at 0900, Until Discontinued Given 06/23/2023 7:42 AM EDT 75 mcg buprenorphine hcl (Belbuca) buccal film 750 mcg 750 mcg, Buccal, Q12H, First dose on Thu06/28/23 at 2100, Until Discontinued Given 07/01/2023 9:56 AM EDT 750 mcg Given 06/30/2023 9:59 PM EDT 750 mcg Given 06/30/2023 9:18 AM EDT 750 mcg buprenorphine HCL (Subutex) sublingual tab 1 mg 1 mg, Sublingual, TID 06;12;18, First dose on Thu07/01/23 at 1200, Until Discontinued Given 07/05/2023 7:04 AM EDT 1 mg Given 07/04/2023 6:36 PM EDT 1 mg Given 07/04/2023 12:51 PM EDT 1 mg buprenorphine HCL (Subutex) sublingual tab 1 mg 1 mg, Sublingual, AMPM, First dose (after last modification) on Thu07/05/23 at 2100, Until Discontinued, He would like to take it at 9 am and 9 pm. Given 07/07/2023 8:45 AM EDT 1 mg Given 07/06/2023 9:11 PM EDT 1 mg Given 07/06/2023 8:51 AM EDT 1 mg celecoxib (CeleBREX) cap 200 mg 200 mg, Oral, Daily(AM), First dose (after last modification) on Thu07/01/23 at 1045, Until Discontinued, Do not use in patients with GFR <60 or patients receiving ketorolac. Given 07/01/2023 11:02 AM EDT 200 mg celecoxib (CeleBREX) cap 200 mg 200 mg, Oral, Daily(AM), First dose (after last modification) on Thu07/03/23 at 0900, Until Discontinued, Do not use in patients with GFR <60 or patients receiving ketorolac. Given 07/07/2023 8:44 AM EDT 200 mg Given 07/06/2023 8:26 AM EDT 200 mg Given 07/05/2023 9:22 AM EDT 200 mg chlorhexidine gluconate cloth 2 % pad External, [id number], First dose on Thu06/26/23 at 1000, Until Discontinued, Applied to appropriate patients per tabulating clerk's recommendations following daily care. May use more than one Pad (cloth/wipe) as needed to complete care. Given 07/06/2023 10:45 PM EDT 1 Pad Given 07/04/2023 4:56 PM EDT 1 Pad Given 07/03/2023 9:27 PM EDT 1 Pad ciprofloxacin (Cipro) tab 500 mg 500 mg, Oral, Q12H, First dose on Thu07/07/23 at 2000, Until Discontinued, Hold antacids and iron for 3-4 hours before and after administration. cycloPHOSphamide (Cytoxan) 1,880 mg in NSS 500 mL infusion 1,880 mg (rounded from 1,875 mg = 750 mg/m2 2.5 m2 Treatment Plan BSA from Recorded weight), IV Piggyback, ONCE, On Thu07/06/23 at 1400, For 1 dose, Cyclophosphamide doses over 1g should be in 500 mL.May extend infusion to 1 hour if not tolerated. Administer on Day 5 New Bag 07/06/2023 1:56 PM EDT 1,880 mg 1000 mL/hr cycloPHOSphamide (Cytoxan) 490 mg in NSS 100 mL infusion 490 mg (200 mg/m2 2.45 m2 Treatment Plan BSA from Recorded weight), IV Piggyback, Q24H, First dose on Thu06/26/23 at 1415, Last dose on Thu06/30/23 at 1445, For 5 doses, Days 1-5 Cyclophosphamide doses over 1 g should be in 500 mL. May extend infusion to 1 hour if not tolerated. New Bag 06/30/2023 3:08 PM EDT 490 mg 224.9 mL/hr New Bag 06/29/2023 2:57 PM EDT 490 mg 224.9 mL/hr New Bag 06/28/2023 2:52 PM EDT 490 mg 224.9 mL/hr dextrose 50% inj 25 mL 25 mL, IV Push, PRN Hypoglycemia, Other, For blood glucose 54 - 69 mg/dL or 70 - 100 mg/dL with symptoms AND patient is unresponsive, NPO, OR unable to swallow, Starting on Thu06/26/23 at 1216, Until Thu07/07/23 at 1741, Administer IV. Recheck blood glucose after 15 minutes. Notify provider. dextrose 50% inj 50 mL 50 mL, IV Push, PRN Hypoglycemia, Other, For blood glucose below 54 mg/dL AND patient unresponsive, NPO, OR unable to swallow, Starting on Thu06/26/23 at 1216, Until Thu07/07/23 at 1741, Administer IV. Recheck blood glucose in 15 minutes. Notify provider. diphenhydrAMINE (Benadryl) cap 50 mg 50 mg, Oral, ONCE, On Thu07/02/23 at 0945, For 1 dose Given 07/02/2023 2:50 PM EDT 50 mg diphenhydrAMINE (Benadryl) inj 50 mg 50 mg, IV Push, PRN Other, Hypersensitivity Reaction, Starting on Thu07/02/23 at 0838, Until Thu07/07/23 at 1741 divalproex ER (Depakote ER) extended release tab 500 mg 500 mg, Oral, QHS, First dose on Thu06/21/23 at 2200, Until Discontinued, Swallow whole. Do not crush, break or chew. Given 07/06/2023 9:11 PM EDT 500 mg Given 07/05/2023 8:52 PM EDT 500 mg Given 07/04/2023 9:58 PM EDT 500 mg Enoxaparin (Lovenox) inj 40 mg 40 mg, Subcutaneous, ONCE, On Thu06/21/23 at 1500, For 1 dose, If patient is on warfarin, inform provider if daily INR value is 2 or greater! Given 06/21/2023 5:40 PM EDT 40 mg Abdom en Right Upper Enoxaparin (Lovenox) inj 40 mg 40 mg, Subcutaneous, Daily(AM), First dose on Thu06/22/23 at 1530, Until Discontinued, If patient is on warfarin, inform provider if daily INR value is 2 or greater! Given 06/25/2023 8:21 AM EDT 40 mg Abdom en Left Lower Given 06/24/2023 9:30 AM EDT 40 mg Ab domen Left Lower Given 06/23/2023 7:42 AM EDT 40 mg Ab domen Right Upper Enoxaparin (Lovenox) inj 40 mg 40 mg, Subcutaneous, Daily(AM), First dose on Thu06/27/23 at 0900, Until Discontinued, If patient is on warfarin, inform provider if daily INR value is 2 or greater! Given 07/01/2023 8:53 AM EDT 40 mg Abdom en Left Lower Given 06/30/2023 9:23 AM EDT 40 mg Ab domen Right Lower Given 06/29/2023 8:32 AM EDT 40 mg Ab domen Left Lower Enoxaparin (Lovenox) inj 40 mg 40 mg, Subcutaneous, Daily(AM), First dose (after last modification) on Thu07/03/23 at 0900, Until Discontinued, If patient is on warfarin, inform provider if daily INR value is 2 or greater! Given 07/07/2023 8:45 AM EDT 40 mg Abdom en Right Lower Given 07/06/2023 8:25 AM EDT 40 mg Ab domen Left Lower Given 07/05/2023 9:21 AM EDT 40 mg Ab domen Right Lower EPINEPHrine 1 MG/ML inj 0.3 mg 0.3 mg, Intramuscular, PRN Other, Hypersensitivity Reaction or Anaphylaxis, Starting on Thu07/02/23 at 0838, Until Thu07/07/23 at 1741 etoposide (VEPESID) 130 mg, vinCRIStine sulfate 1 mg, DOXOrubicin (Adriamycin) 26 mg in NSS 1,000 mL infusion Intravenous, at 46 mL/hr, PROTECT FROM LIGHT! Administer through 0.22 micron low protein binding filter! Administer on Days 1-4 To run over 24 hours x 4 days for total of 96 hours., Q24H, 4 doses, First dose on Thu07/02/23 at 1400, Last dose on Thu07/05/23 at 1400 Nurse Change 07/06/2023 7:22 AM EDT 46 mL/benchroom shop optician Infusion Pump 07/06/2023 2:17 AM EDT 46 mL/hr Rate Verify 07/05/2023 10:22 PM EDT 46 mL/hr Famotidine (Pepcid) tab 20 mg 20 mg, Oral, ONCE, On Tess 07/02/23 at 0945, For 1 dose Given 07/02/2023 2:50 PM EDT 20 mg fentaNYL (PF) inj ONCE PRN INTRA PROCEDURE, Starting on Thu06/22/23 at 1103, Until Thu06/22/23 at 1229, Intra-Op Given 06/22/2023 12:29 PM EDT 50 mcg Given 06/22/2023 12:05 PM EDT 50 mcg Given 06/22/2023 11:31 AM EDT 50 mcg Fluconazole (Diflucan) tab 400 mg 400 mg, Oral, Daily(AM), First dose on Thu07/03/23 at 1100, Until Discontinued Given 07/07/2023 8:44 AM EDT 400 mg Given 07/06/2023 8:26 AM EDT 400 mg Given 07/05/2023 9:23 AM EDT 400 mg fluticasone furoate-vilanterol (BREO ellipta) 100-25 MCG/ACT inhaler 1 Puff 1 Puff, Inhalation, BID (.AM/PM), First dose on [place] 06/21/23 at 0900, Until Discontinued, NURSING TO FOLLOW PATIENT WITH MDI/DPI ADMINISTRATION Given 07/07/2023 8:48 AM EDT 1 Puff Given 07/06/2023 10:45 PM EDT 1 Puff Given 07/06/2023 8:28 AM EDT 1 Puff Fosaprepitant Dimeglumine (Emend) 150 mg, ondansetron (Zofran) 16 mg in NSS 250 mL Infusion 150 mg, IV Piggyback, ONCE, 1 dose, On Tess 07/02/23 at 1330, Administer over 30 Minutes, Infuse over 30 minutes New Bag 07/02/2023 3:34 PM EDT 150 mg 576 mL/h r Furosemide (Lasix) inj 20 mg 20 mg, IV Push, ONCE, On 07/04/23 at 1100, For 1 dose Given 07/04/2023 11:17 AM EDT 20 mg Furosemide (Lasix) inj 40 mg 40 mg, IV Push, ONCE, On 07/05/23 at 1130, For 1 dose Given 07/05/2023 11:28 AM EDT 40 mg glucagon (Glucagen) inj 1 mg 1 mg, Intramuscular, PRN Hypoglycemia, Other, If patient is unresponsive, or NPO and has no IV access, Starting on Thu06/26/23 at 1216, Until Thu07/07/23 at 1741, NPO and no IV access with either 1) blood glucose less than 100 mg/dL and symptomatic OR 2) blood glucose less than 70 mg/dL and asymptomatic Glucose (Glutose 15) 40 % gel 15 g of glucose 15 g of glucose, Oral, PRN Hypoglycemia (low sugar), Other, For blood glucose 54 - 69 mg/dL or 70 - 100 mg/dL with symptoms AND patient alert WITH difficulty chewing/swallowing, Starting on Thu06/26/23 at 1216, Until Thu07/07/23 at 1741, Administer gel. Recheck blood glucose after 15 minutes. Notify provider. 37.5 gram tube = 15 grams glucose = 1 each Glucose (Glutose 15) 40 % gel 30 g of glucose 30 g of glucose, Oral, PRN Hypoglycemia (low sugar), Other, For blood glucose below 54 mg/dL AND patient alert WITH difficulty chewing/swallowing, Starting on Thu06/26/23 at 1216, Until Thu07/07/23 at 1741, Administer gel. Recheck blood glucose after 15 minutes. Notify provider. 37.5 gram tube = 15 grams glucose = 1 each glucose chew tab 16 g 16 g, Oral, PRN Hypoglycemia, Other, For blood glucose 54 - 69 mg/dL or 70 - 100 mg/dL with symptoms and patient alert without difficulty chewing/swallowing., Starting on Thu06/26/23 at 1216, Until Thu07/07/23 at 1741 hEParin 100 UNIT/ML Lock Flush inj 300 Units 300 Units (3 mL), IV Push, PRN Other, Flush before discharge, Starting on Thu06/26/23 at 1026, Until Thu07/07/23 at 1741, For 1 dose, Prior to discharge, to each lumen house antacid (Mi-Acid II) oral susp 30 mL 30 mL, Oral, Q6H PRN Indigestion, Nausea, Starting on 07/06/23 at 1432, Until Thu07/07/23 at 1741, SHAKE WELL Given 07/06/2023 3:05 PM EDT 30 mL hydroCHLOROthiazide cap 12.5 mg 12.5 mg, Oral, Daily(AM), First dose on 06/21/23 at 0900, Until Discontinued Given 07/07/2023 8:44 AM EDT 12.5 mg Given 07/06/2023 8:27 AM EDT 12.5 mg Given 07/05/2023 9:23 AM EDT 12.5 mg Hydrocortisone Sod Suc (PF) (Solu-Cortef) inj 100 mg 100 mg, IV Push, PRN Other, Hypersensitivity Reaction, Starting on Tess 07/02/23 at 0838, Until 07/07/23 at 1741 HYDROmorphone (Dilaudid) inj 0.2 mg 0.2 mg, IV Push, Q6H PRN Pain, Moderate, Starting on 06/20/23 at 2333, Until 06/21/23 at 1142 Given 06/21/2023 12:29 AM EDT 0.2 mg HYDROmorphone (Dilaudid) inj 0.2 mg 0.2 mg, IV Push, ONCE, On 06/21/23 at 1145, For 1 dose Given 06/21/2023 11:53 AM EDT 0.2 mg HYDROmorphone (Dilaudid) inj 0.5 mg 0.5 mg, IV Push, ONCE, On 06/20/23 at 2345, For 1 dose Given 06/20/2023 11:28 PM EDT 0.5 mg HYDROmorphone (Dilaudid) inj 0.5 mg 0.5 mg, IV Push, Q6H PRN Pain, Severe, Starting on 06/20/23 at 2333, Until 06/21/23 at 1142 Given 06/21/2023 9:27 AM EDT 0.5 mg Given 06/21/2023 1:50 AM EDT 0.5 mg HYDROmorphone (Dilaudid) inj 0.5 mg 0.5 mg, IV Push, ONCE, On 06/21/23 at 0315, For 1 dose Given 06/21/2023 3:16 AM EDT 0.5 mg HYDROmorphone (Dilaudid) tab 3 mg 3 mg, Oral, Q4H PRN Pain, Moderate, Pain, Severe, Starting on Thu07/01/23 at 1048, Until Thu07/07/23 at 1741 Given 07/06/2023 2:19 PM EDT 3 mg Given 07/05/2023 11:04 PM EDT 3 mg Given 07/05/2023 2:51 PM EDT 3 mg insulin aspart (NovoLOG) inj Subcutaneous, W/MEALS AND HS, First dose on Thu06/26/23 at 1300, Until Discontinued, LOW DOSE (Elderly insulin sensitive patient): Sliding Scale Correctional insulin may be given if the patient is NPO. Dose based on standard build from Insulin Calculator. Do not modify insulin doses in administration instructions! , Glucose less than 70 instructions: Obtain STAT lab blood glucose and call covering provider., Glucose 80-150 (units): 0, Glucose 151-200 (units): 1, Glucose 201-250 (units): 2, Glucose 251-300 (units): 3, Glucose greater than 300 (units): 4, Glucose greater than 300 instructions: Give suggested insulin dose and call covering provider. Given 07/03/2023 5:21 PM EDT 1 Units Arm Left Upper Given 07/02/2023 9:41 PM EDT 1 Units Ar m Right Upper Given 07/01/2023 6:18 PM EDT 1 Units Ar m Left Upper Iopamidol (Isovue 370) inj 80 mL 80 mL, Intravenous, ONCE, On Thu06/29/23 at 1915, For 1 dose, Radiology Medication Routing (Non-IR) Given 06/29/2023 7:15 PM EDT 75 mL ketorolac (Toradol) 30 MG/ML inj 30 mg 30 mg, IV Push, ONCE, On Thu06/21/23 at 0630, For 1 dose Given 06/21/2023 6:02 AM EDT 30 mg levoFLOXacin (Levaquin) tab 750 mg 750 mg, Oral, Daily(AM), First dose (after last modification) on Thu07/06/23 at 1745, Last dose on Thu07/15/23 at 0900, For 10 days, Hold antacids and iron for 3-4 hours before and after administration Given 07/07/2023 8:44 AM EDT 750 mg Given 07/06/2023 5:19 PM EDT 750 mg Lidocaine (Aspercreme) 4 % patch 1 Patch 1 Patch, Transdermal, QHS, First dose on Thu06/23/23 at 2200, Until Discontinued, Apply patch for 12 hours then remove for 12 hours! Remove any Lidocaine patches the patient may currently be wearing prior to applying the new patch Patch Applied 06/23/2023 10:21 PM EDT 1 Patch Back Middle Lidocaine 1 % (PF) inj 1 mL 1 mL, Intradermal, PRN Other, Line Insertion, Starting on Thu06/25/23 at 1652, Until Thu06/25/23 at 1829, For 1 dose Given 06/25/2023 6:29 PM EDT 1 mL Arm Right Upper loperamide (Imodium) cap 4 mg 4 mg, Oral, Q6H PRN Diarrhea, Starting on [facility] 06/27/23 at 1030, Until Thu07/07/23 at 1741, Maximum of 16 mg per day recommended Given 06/27/2023 11:25 AM EDT 4 mg Loratadine (Claritin) tab 10 mg 10 mg, Oral, Daily(AM), First dose on Thu06/21/23 at 0900, Until Discontinued Given 07/07/2023 8:45 AM EDT 10 mg Given 07/06/2023 8:27 AM EDT 10 mg Given 07/05/2023 9:22 AM EDT 10 mg LORazepam (Ativan) inj 0.5 mg 0.5 mg, IV Push, ONCE, On Thu06/28/23 at 1715, For 1 dose, MUST FURTHER DILUTE FOR IV PUSH WITH EQUAL VOLUME OF NSS Given 06/28/2023 4:59 PM EDT 0.5 mg LORazepam (Ativan) inj 1 mg 1 mg, IV Push, ONCE PRN for bone marrow procedure, Starting on Thu06/25/23 at 1318, Until Thu06/25/23 at 1348, For 1 dose, MUST FURTHER DILUTE FOR IV PUSH WITH EQUAL VOLUME OF NSS Given 06/25/2023 1:48 PM EDT 1 mg LORAzepam (Ativan) tab 0.5 mg 0.5 mg, Oral, ONCE PRN Anxiety, Nausea, Starting on Thu07/02/23 at 0915, Until Thu07/07/23 at 1741 magnesium sulfate 1 g in d5w 100mL LOCKED DOSE 1 g, IV Piggyback, Q1H, 2 doses, First dose on 06/29/23 at 0500, Last dose on Thu06/29/23 at 0600, Administer over 60 Minutes, Total dose is 2g New Bag 06/29/2023 7:18 AM EDT 1 g 100 mL/hr Rate Verify 06/29/2023 6:29 AM EDT 1 g/hr 100 mL/hr New Bag 06/29/2023 5:59 AM EDT 1 g 100 mL/hr METHOtrexate Sodium (PF) 50 MG/2ML 12 mg in sodium chloride 0.9 % 5 mL intrathecal 12 mg, Intrathecal, Administer over 3 Minutes, FOR INTRATHECAL ADMINISTRATION Protect from Light!, ONCE, 1 dose, On Tess 07/02/23 at 1300 Given 07/02/2023 1:43 PM EDT 12 mg morphine 1 mg/mL GROUNDSKEEPING MAINTENANCE WORKER infusion GROUNDSKEEPING MAINTENANCE WORKER IV Infusion, Final Concentration = 1 mg/mL If Loading Dose (bolus dose) is not ordered by the physician, the nurse may give the first GROUNDSKEEPING MAINTENANCE WORKER dose as bolus after pain assessment. Use CADD Pump with lock box! New Bag 06/21/2023 3:42 PM EDT morphine 1 mg/mL GROUNDSKEEPING MAINTENANCE WORKER infusion GROUNDSKEEPING MAINTENANCE WORKER IV Infusion, Final Concentration = 1 mg/mL If Loading Dose (bolus dose) is not ordered by the physician, the nurse may give the first GROUNDSKEEPING MAINTENANCE WORKER dose as bolus after pain assessment. Use CADD Pump with lock box! Rate Change 06/21/2023 7:09 PM EDT morphine 1 mg/mL GROUNDSKEEPING MAINTENANCE WORKER infusion GROUNDSKEEPING MAINTENANCE WORKER IV Infusion, Final Concentration = 1 mg/mL If Loading Dose (bolus dose) is not ordered by the physician, the nurse may give the first GROUNDSKEEPING MAINTENANCE WORKER dose as bolus after pain assessment. Use CADD Pump with lock box! Nurse Change 06/23/2023 7:15 AM EDT Nurse Change 06/22/2023 7:24 PM EDT Nurse Change 06/22/2023 3:09 PM EDT morphine 1 mg/mL GROUNDSKEEPING MAINTENANCE WORKER infusion GROUNDSKEEPING MAINTENANCE WORKER IV Infusion, Final Concentration = 1 mg/mL If Loading Dose (bolus dose) is not ordered by the physician, the nurse may give the first GROUNDSKEEPING MAINTENANCE WORKER dose as bolus after pain assessment. Use CADD Pump with lock box! Nurse Change 06/29/2023 7:19 AM EDT Nurse Change 06/28/2023 7:20 PM EDT Nurse Change 06/28/2023 7:14 AM EDT morphine 1 mg/mL GROUNDSKEEPING MAINTENANCE WORKER infusion GROUNDSKEEPING MAINTENANCE WORKER IV Infusion, Final Concentration = 1 mg/mL If Loading Dose (bolus dose) is not ordered by the physician, the nurse may give the first GROUNDSKEEPING MAINTENANCE WORKER dose as bolus after pain assessment. Use CADD Pump with lock box! Nurse Change 07/01/2023 8:06 AM EDT Nurse Change 06/30/2023 6:00 PM EDT Nurse Change 06/30/2023 7:19 AM EDT morphine 1 mg/mL GROUNDSKEEPING MAINTENANCE WORKER infusion GROUNDSKEEPING MAINTENANCE WORKER IV Infusion, Final Concentration = 1 mg/mL If Loading Dose (bolus dose) is not ordered by the physician, the nurse may give the first GROUNDSKEEPING MAINTENANCE WORKER dose as bolus after pain assessment. Use CADD Pump with lock box! Nurse Change 07/01/2023 7:26 PM EDT Rate Change 07/01/2023 11:54 AM EDT Morphine Sulfate (Msir) tab 15 mg 15 mg, Oral, Q4H PRN Pain, Severe, Starting on Thu06/29/23 at 1437, Until Thu07/01/23 at 1056 Given 06/30/2023 6: 06 PM EDT 15 mg Given 06/30/2023 12:44 PM EDT 15 mg morphine sulfate inj 2 mg 2 mg, IV Push, ONCE PRN bone marrow procedure, Starting on Tess 06/25/23 at 1317, Until Tess 06/25/23 at 1348, For 1 dose Given 06/25/2023 1:48 PM EDT 2 mg naloxone (Narcan) 0.4 MG/ML inj 0.08 mg 0.08 mg, IV Push, PRN Other, RR less than 8, Starting on 06/21/23 at 1133, Until Tu07/07/23 at 1741, Stop and call Chief Underwriter, may repeat 0.04 mg IVP q1 minute NSS infusion Intravenous, at 100 mL/hr, CONTINUOUS, Starting on Thu06/24/23 at 1645, Until [place] 06/25/23 at 1644 Rate Verify 06/25/2023 3:17 PM EDT 100 mL/hr Rate Verify 06/25/2023 2:10 PM EDT 100 mL/hr Rate Verify 06/25/2023 11:55 AM EDT 100 mL/hr NSS infusion Intravenous, at 125 mL/hr, CONTINUOUS, Starting on Thu06/26/23 at 1315, Until Thu06/30/23 at 1002 Rate Verify 06/30/2023 6:40 AM EDT 125 mL/hr New Bag 06/30/2023 3:21 AM EDT 125 mL/hr Restarted 06/30/2023 3:18 AM EDT 125 mL/hr NSS infusion Intravenous, at 75 mL/hr, CONTINUOUS, Starting on Thu06/30/23 at 1045, Until Thu07/04/23 at 1027 Rate Verify 07/04/2023 6:49 AM EDT 75 mL /hr Restarted 07/04/2023 3:16 AM EDT 75 mL/hr Rate Verify 07/04/2023 2:07 AM EDT 75 mL/hr NSS infusion Intravenous, at 40 mL/hr, CONTINUOUS, Starting on Thu07/04/23 at 1100, Until Thu07/05/23 at 1046 Rate Verify 07/05/2023 6:49 AM EDT 40 mL /hr Restarted 07/05/2023 4:23 AM EDT 40 mL/hr Rate Verify 07/04/2023 11:09 PM EDT 40 mL/hr OLANZapine (zyPREXA) tab 10 mg 10 mg, Oral, QHS, First dose on Thu07/02/23 at 2200, Last dose on Thu07/06/23 at 2200, For 5 doses Given 07/06/2023 9:11 PM EDT 10 mg Given 07/05/2023 8:52 PM EDT 10 mg Given 07/04/2023 9:58 PM EDT 10 mg omeprazole (PriLOSEC) cap 20 mg 20 mg, Oral, Daily(AM), First dose on Thu06/21/23 at 0900, Until Discontinued Given 07/06/2023 8:27 AM EDT 20 mg Given 07/05/2023 9:22 AM EDT 20 mg Given 07/04/2023 9:55 AM EDT 20 mg omeprazole (PriLOSEC) cap 40 mg 40 mg, Oral, Daily(AM), First dose (after last modification) on Thu07/07/23 at 0900, Until Discontinued Given 07/07/2023 8:44 AM EDT 40 mg ondansetron (Zofran) tab 16 mg 16 mg, Oral, Q24H, First dose (after last modification) on Thu06/27/23 at 1400, Last dose on Thu06/30/23 at 1400, For 4 days, Premedication prior to chemotherapy Given 06/30/2023 2:32 PM EDT 16 mg Given 06/29/2023 2:15 PM EDT 16 mg Given 06/28/2023 2:22 PM EDT 16 mg ondansetron (Zofran) tab 16 mg 16 mg, Oral, Q24H, First dose on Thu07/03/23 at 1330, Last dose on Thu07/06/23 at 1330, For 4 doses, Give 30 minutes prior to chemotherapy Given 07/06/2023 1: 24 PM EDT 16 mg Given 07/05/2023 7:20 PM EDT 16 mg Given 07/04/2023 8:29 PM EDT 16 mg ondansetron ODT (Zofran) tab 4 mg 4 mg, On Tongue, Q8H PRN Nausea, Vomiting, Starting on Thu06/20/23 at 2335, Until Thu07/07/23 at 1741 Given 06/28/2023 10:32 PM EDT 4 mg Given 06/24/2023 4:43 AM EDT 4 mg Given 06/22/2023 11:12 PM EDT 4 mg ondansetron ODT (Zofran) tab 4 mg 4 mg, On Tongue, ONCE, On Thu06/21/23 at 0630, For 1 dose Given 06/21/2023 6:02 AM EDT 4 mg Oral Hygiene: Mouth Swab with dentifrice Oral, PCHS, First dose on Thu06/26/23 at 1300, Until Discontinued, To be used with 1.5% hydrogen peroxide solution or 0.05% cetylpyridium chloride oral rinse Given 07/06/2023 10:00 PM EDT Given 07/06/2023 6:00 PM EDT Given 07/06/2023 1:00 PM EDT Polyethylene Glycol 3350 (Miralax) oral powder 17 g 17 g (1 Packet), Oral, DAILY PRN Constipation, Starting on Thu06/23/23 at 0047, Until Thu07/01/23 at 0819, Mix in 8 oz of water, juice, soda, coffee, or tea. Given 06/30/2023 3:24 AM EDT 17 g Polyethylene Glycol 3350 (Miralax) oral powder 17 g 17 g (1 Packet), Oral, Daily(AM), First dose (after last modification) on Thu07/01/23 at 0900, Until Discontinued, Mix in 8 oz of water, juice, soda, coffee, or tea. Given 07/07/2023 8:43 AM EDT 17 g Given 07/06/2023 8:26 AM EDT 17 g Given 07/05/2023 9:21 AM EDT 17 g Polyethylene Glycol 3350 (Miralax) oral powder 17 g 17 g (1 Packet), Oral, ONCE, On Thu07/01/23 at 2315, For 1 dose, Mix in 8 oz of water, juice, soda, coffee, or tea. Given 07/01/2023 10:43 PM EDT 17 g Polyethylene Glycol 3350 (Miralax) oral powder 17 g 17 g (1 Packet), Oral, BID (0900,2100), First dose (after last modification) on Thu07/07/23 at 2100, Until Discontinued, Mix in 8 oz of water, juice, soda, coffee, or tea. potassium chloride ER tab 40 mEq 40 mEq, Oral, Q1H, First dose on 06/21/23 at 1300, Last dose on Thu06/21/23 at 1400, For 2 doses, This med should NOT be Crushed or Chewed Given 06/21/2023 12:43 PM EDT 40 mEq Given 06/21/2023 11:59 AM EDT 40 mEq potassium chloride ER tab 40 mEq 40 mEq, Oral, Q1H, First dose on Thu06/22/23 at 1500, Last dose on Thu06/22/23 at 1600, For 2 doses, This med should NOT be Crushed or Chewed Given 06/22/2023 4:24 PM EDT 40 mEq Given 06/22/2023 2:31 PM EDT 40 mEq potassium chloride ER tab 40 mEq 40 mEq, Oral, ONCE, On Thu06/24/23 at 1200, For 1 dose, This med should NOT be Crushed or Chewed Given 06/24/2023 12:06 PM EDT 40 mEq potassium chloride ER tab 40 mEq 40 mEq, Oral, ONCE, On 06/29/23 at 0500, For 1 dose, This med should NOT be Crushed or Chewed Given 06/29/2023 6:00 AM EDT 40 mEq potassium chloride ER tab 40 mEq 40 mEq, Oral, ONCE, On Thu07/04/23 at 1500, For 1 dose, This med should NOT be Crushed or Chewed Given 07/04/2023 4:54 PM EDT 40 mEq predniSONE (Deltasone) tab 145 mg 145 mg, Oral, Q24H, First dose on Thu06/26/23 at 1415, Last dose on Thu07/02/23 at 1415, For 7 doses, Days 1-7 Dose basis = 60 mg/m2 Given 06/27/2023 2:35 PM EDT 145 mg Given 06/26/2023 1:20 PM EDT 145 mg predniSONE (Deltasone) tab 145 mg 145 mg, Oral, Q24H, First dose (after last modification) on Thu06/28/23 at 0800, Last dose on Thu07/02/23 at 0800, For 5 doses, Days 1-7 Dose basis = 60 mg/m2 Given 07/01/2023 8:50 AM EDT 145 mg Given 06/30/2023 9:23 AM EDT 145 mg Given 06/29/2023 8:25 AM EDT 145 mg predniSONE (Deltasone) tab 150 mg 150 mg (60 mg/m2 2.5 m2 Treatment Plan BSA from Recorded weight), Oral, BID (0900, 1600), First dose on Thu07/02/23 at 0945, Last dose on Thu07/06/23 at 1600, For 10 doses, round to the nearest tab Given 07/02/2023 11:12 AM EDT 150 mg prochlorperazine (Compazine) inj 10 mg 10 mg, IV Push, Q6H PRN Nausea, Vomiting, Starting on Thu06/28/23 at 1639, Until Thu07/07/23 at 1741, Not relieved with zofran propranolol (Inderal) tab 40 mg 40 mg, Oral, BID (.AM/PM), First dose on Thu06/21/23 at 0900, Until Discontinued, Hold for HR less than 60 or SBP below 100 and notify service if dose is held Given 07/07/2023 8:44 AM EDT 40 mg Given 07/06/2023 9:12 PM EDT 40 mg Given 07/06/2023 8:26 AM EDT 40 mg Rasburicase (Elitek) 3 mg in NSS 50 mL ivpb 3 mg, IV Piggyback, ONCE, 1 dose, On Thu06/24/23 at 1645, Administer over 30 Minutes, Rasburicase should not be mixed or administered concurrently via the same infusion catheter with other intravenous medications or solutions. If use of a separate line is not possible, the line should be flushed with at least 15 mL of normal saline prior to and after the infusion of rasburicase. PROTECT FROM LIGHT New Bag 06/24/2023 6:11 PM EDT 3 mg 114 mL/hr [id number]-[id number] (Ruxience) 900 mg in NSS 500 mL ivpb 900 mg (rounded from 937.5 mg = 375 mg/m2 2.5 m2 Treatment Plan BSA from Recorded weight), IV Piggyback, ONCE, 1 dose, On Thu07/02/23 at 1000, Initial Infusions: Start at an infusion rate of 50 mg/hour. If no reaction, rate may be increased by 50 mg/hour increments every 30-minutes to a maximum of 400 mg/hour. Initial Infusion Rates: 27 mL/hr for 60-minutes (VTBI = 27 mL) then increase to 54 mL/hr for 30-minutes (VTBI = 27 mL) then increase to 81 mL/hr for 30-minutes (VTBI = 40.5 mL) then increase to 108 mL/hr for 30-minutes (VTBI = 54 mL) then increase to 135 mL/hr for 30-minutes (VTBI = 67.5 mL) then increase to 162 mL/hr for 30-minutes (VTBI = 81 mL) then increase to 189 mL/hr for 30-minutes (VTBI = 94.5 mL) then increase to 220 mL/hr Maximum Rate Change 07/02/2023 9:17 PM EDT 5 mL/hr Rate Change 07/02/2023 8:50 PM EDT 220 mL/hr Rate Change 07/02/2023 8:47 PM EDT 5 mL/hr Saline ([place]) nasal spray 1 [place], Nasal, PRN Other, Starting on Thu06/24/23 at 1608, Until Thu07/07/23 at 1741 Given 06/24/2023 5:23 PM EDT 1 [place] senna (Senokot) 2 Tablet 2 Tablet, Oral, Daily(AM), First dose on Thu06/22/23 at 0300, Until Discontinued Given 06/23/2023 7:41 AM EDT 2 Tab lets Given 06/22/2023 5:50 AM EDT 2 Tablets senna (Senokot) 2 Tablet 2 Tablet, Oral, BID (.AM/PM), First dose (after last modification) on Thu06/23/23 at 2145, Until Discontinued Given 06/26/2023 10:10 PM EDT 2 Tablets Given 06/25/2023 9:13 PM EDT 2 Tablets Given 06/25/2023 8:18 AM EDT 2 Tablets senna-docusate (Senokot-S) 1 Tablet 1 Tablet, Oral, BID PRN Constipation, Starting on Thu06/21/23 at 1136, Until Thu07/01/23 at 0819 Given 06/30/2023 10:25 AM EDT 1 Tablet Given 06/29/2023 9:01 PM EDT 1 Tablet senna-docusate (Senokot-S) 1 Tablet 1 Tablet, Oral, BID (799,1999), First dose (after last modification) on Thu07/01/23 at 2000, Until Discontinued Given 07/07/2023 8:45 AM EDT 1 Tablet Given 07/06/2023 9:11 PM EDT 1 Tablet Given 07/06/2023 10:31 AM EDT 1 Tablet senna-docusate (Senokot-S) 2 Tablet 2 Tablet, Oral, BID (799,1999), First dose (after last modification) on Thu07/07/23 at 2000, Until Discontinued sodium chloride 0.9 % flush central line 10 mL 10 mL, IV Push, Q8H, First dose on Thu06/26/23 at 1400, Until Discontinued, TO UNUSED PORTS Do not flush if lock, PICC, or central line not in place; IV infusing or unable to flush. Given 06/26/2023 2:0 0 PM EDT 10 mL sodium chloride 0.9 % flush/inj 10 mL 10 mL, IV Push, Q8H, First dose on Tess 06/25/23 at 2200, Until Discontinued, To each lumen if no medications are ordered. And before and after drawing labs from PICC catheter. Given 06/26/2023 6:18 AM EDT 10 mL Given 06/25/2023 10:00 PM EDT 10 mL sodium chloride 0.9 % flush/inj 10 mL 10 mL, IV Push, Q8H, First dose on Thu06/26/23 at 1400, Until Discontinued, To each lumen if no medications are ordered. Flush before and after all port access. Given 07/07/2023 6:00 AM EDT 10 mL Given 07/06/2023 10:00 PM EDT 10 mL Given 07/06/2023 2:00 PM EDT 10 mL sodium chloride 0.9 % flush/inj 3 mL 3 mL, IV Push, PRN Other, Line Patency, Starting on 06/20/23 at 2227, Until Tu07/07/23 at 1741, Do not flush if lock, PICC, or central line not in place, IV infusing or unable to flush sulfamethoxazole-trimethoprim 400-80 mg per tab (Bactrim) 1 Tablet 1 Tablet, Oral, Daily(AM), First dose on Thu07/03/23 at 1100, Until Discontinued Given 07/07/2023 8:45 AM EDT 1 [place] b[place] Given 07/06/2023 8:27 AM EDT 1 Tablet Given 07/05/2023 9:22 AM EDT 1 Tablet topiramate (topAMAX) tab 100 mg 100 mg, Oral, BID (.AM/PM), First dose on Thu06/21/23 at 0900, Until Discontinued Given 07/07/2023 8:44 AM EDT 100 mg Given 07/06/2023 9:12 PM EDT 100 mg Given 07/06/2023 8:26 AM EDT 100 mg trimethobenzamide (Tigan) inj 100 mg 100 mg, Intramuscular, ONCE, On Thu06/21/23 at 0315, For 1 dose Given 06/21/2023 3:19 AM EDT 100 mg D eltoid Left Upper trimethobenzamide (Tigan) inj 100 mg 100 mg, Intramuscular, ONCE, On Thu06/21/23 at 1230, For 1 dose Given 06/21/2023 12:42 PM EDT 100 mg Arm Left Upper documented in this encounter Active and Recently Administered Medications Times are shown in EDT. Scheduled Medication Order 07/05/2023 07/06/2023 07/07/2023 Acyclovir (Zovirax) tab 400 mg 400 mg, Oral, BID (.AM/PM), First dose on Thu06/26/23 at 2100, Until Discontinued 921 (Given - Provider: Linda Machado RN)2051 (Given - Provider: Saira Ahn RN) 826 (Given - Provider: Nano Cochran, RYLAN)2110 (Given - Provider: Anne Daniel RN) 0845 (Given - Provider: Jaydn Wilks, RN) Allopurinol (Zyloprim) tab 300 mg (CANCELED) 300 mg, Oral, BID (.AM/PM), First dose (after last modification) on Thu06/25/23 at 2100, Until Discontinued 921 (Given - Provider: Linda Machado RN) Allopurinol (Zyloprim) tab 300 mg 300 mg, Oral, Daily(AM), First dose (after last modification) on Thu07/06/23 at 0900, Until Discontinued 826 (Given - Provider: Nano Cochran, RYLAN) 0845 (Given - Provider: Jadyn Wilks, RN) amoxicillin-clavulanate (Augmentin) tab 875 mg 875 mg, Oral, Q12H, First dose on Thu07/06/23 at 2100, Last dose on Thu07/16/23 at 0900, For 10 days 2110 (Given - Provider: Anne Daniel, RN) 0845 (Given - Provider: Jadyn Wilks, RN) aspirin enteric coated tab 81 mg 81 mg, Oral, Daily(AM), First dose (after last modification) on Thu07/03/23 at 0900, Until Discontinued 921 (Given - Provider: Linda Machado RN) 826 (Given - Provider: Nano Cochran RN) 0845 (Given - Provider: Jadyn Wilks, RYLAN) buprenorphine HCL (Subutex) sublingual tab 1 mg (CANCELED) 1 mg, Sublingual, TID 06;12;18, First dose on Thu07/01/23 at 1200, Until Discontinued 0654 (Wasted - Provider: Saira Ahn RN - Comment: pill dropped on floor after giving to patient; wasted in [facility]ell with Melissa Carvalho RN)0704 (Given - Provider: Saira Ahn RN - Comment: prior dose dropped)1200 (Not Given - Provider: Linda Machado RN - Reason: Refused-Notify Provider - Comment: ERNST Sage) buprenorphine HCL (Subutex) sublingual tab 1 mg 1 mg, Sublingual, AMPM, First dose (after last modification) on Thu07/05/23 at 2100, Until Discontinued, He would like to take it at 9 am and 9 pm. 2049 (Given - Provider: Siara Ahn RN) 850 (Given - Provider: Nano Cochran, RYLAN)2110 (Given - Provider: Anne Daniel RN) 844 (Given - Provider: Jadyn Wilks, RYLAN) celecoxib (CeleBREX) cap 200 mg 200 mg, Oral, Daily(AM), First dose (after last modification) on Thu07/03/23 at 0900, Until Discontinued, Do not use in patients with GFR <60 or patients receiving ketorolac. 921 (Given - Provider: Linda Machado RN) 825 (Given - Provider: Nano Cochran, RYLAN) 44 (Given - Provider: Jadyn Wilks, RYLAN) chlorhexidine gluconate cloth 2 % pad External, [id number], First dose on Thu06/26/23 at 1000, Until Discontinued, Applied to appropriate patients per tabulating clerk's recommendations following daily care. May use more than one Pad (cloth/wipe) as needed to complete care. 1999 (Not Given - Provider: Saira Ahn RN - Reason: Refused-Notify Provider - Comment: patient showered but refused wipes, "will do tomorrow") 2244 (Given - Provider: Anne Daniel RN) 1000 (Due) ciprofloxacin (Cipro) tab 500 mg 500 mg, Oral, Q12H, First dose on Thu07/07/23 at 2000, Until Discontinued, Hold antacids and iron for 3-4 hours before and after administration. cycloPHOSphamide (Cytoxan) 1,880 mg in NSS 500 mL infusion (COMPLETED) 1,880 mg (rounded from 1,875 mg = 750 mg/m2 2.5 m2 Treatment Plan BSA from Recorded weight), IV Piggyback, ONCE, On 07/06/23 at 1400, For 1 dose, Cyclophosphamide doses over 1g should be in 500 mL.May extend infusion to 1 hour if not tolerated. Administer on Day 5 1356 (New Bag - Provider: Nano Cochran RN - Comment: (+) blood return from R PICC line) divalproex ER (Depakote ER) extended release tab 500 mg 500 mg, Oral, QHS, First dose on Thu06/21/23 at 2200, Until Discontinued, Swallow whole. Do not crush, break or chew. 2051 (Given - Provider: Saira hAn RN) 2110 (Given - Provider: Anne Daniel RN) Enoxaparin (Lovenox) inj 40 mg 40 mg, Subcutaneous, Daily(AM), First dose (after last modification) on Thu07/03/23 at 0900, Until Discontinued, If patient is on warfarin, inform provider if daily INR value is 2 or greater! 0921 (Given - Provider: Linda Machado RN) 0825 (Given - Provider: Nano Cochran RN) 0845 (Given - Provider: Jadyn Wilks RN) etoposide (VEPESID) 130 mg, vinCRIStine sulfate 1 mg, DOXOrubicin (Adriamycin) 26 mg in NSS 1,000 mL infusion (COMPLETED) Intravenous, at 46 mL/hr, PROTECT FROM LIGHT! Administer through 0.22 micron low protein binding filter! Administer on Days 1-4 To run over 24 hours x 4 days for total of 96 hours., Q24H, 4 doses, First dose on Thu07/02/23 at 1400, Last dose on Thu07/05/23 at 1400 0414 (Paused - Provider: Saira Ahn RN)0423 (Restarted - Provider: Saira Ahn RN)0649 (Rate Verify - Provider: Saira Ahn RN)0707 (Nurse Change - Provider: Saira Ahn RN)1152 (Rate Verify - Provider: Linda Machado RN)1650 (Paused - Provider: Saira Ahn RN)1654 (Restarted - Provider: Saira Ahn RN)1920 (Rate Verify - Provider: Saira Ahn RN - Comment: [Action automatically changed])1943 (Stopped - Provider: Saira Ahn RN)2000 (New Bag - Provider: Saira Ahn RN - Comment: + blood return from PICC)2221 (Rate Verify - Provider: Saira Ahn RN) 021 (Associate Infusion Pump - Provider: Saira Ahn RN)07 (Nurse Change - Provider: Nano Cochran RN) Fluconazole (Diflucan) tab 400 mg 400 mg, Oral, Daily(AM), First dose on Thu07/03/23 at 1100, Until Discontinued 922 (Given - Provider: Linda Machado RN) 825 (Given - Provider: Nano Cochran RN) 08 (Given - Provider: Jadyn Wilks, RYLAN) fluticasone furoate-vilanterol (BREO ellipta) 100-25 MCG/ACT inhaler 1 Puff 1 Puff, Inhalation, BID (.AM/PM), First dose on Thu06/21/23 at 0900, Until Discontinued, NURSING TO FOLLOW PATIENT WITH MDI/DPI ADMINISTRATION 922 (Given - Provider: Linda Machado RN)2052 (Given - Provider: Saira Ahn RN) 827 (Given - Provider: Nano Cochran RN)2244 (Given - Provider: Anne Daniel RN) 08 (Given - Provider: Jadyn Wilks, RYLAN) Furosemide (Lasix) inj 40 mg (COMPLETED) 40 mg, IV Push, ONCE, On Thu07/05/23 at 1130, For 1 dose 112 (Given - Provider: Linda Machado RN) hydroCHLOROthiazide cap 12.5 mg 12.5 mg, Oral, Daily(AM), First dose on Thu06/21/23 at 0900, Until Discontinued 922 (Given - Provider: Linda Machado RN) 826 (Given - Provider: Nano Cochran RN) 0844 (Given - Provider: Jadyn Wilks, RN) insulin aspart (NovoLOG) inj Subcutaneous, W/MEALS AND HS, First dose on Thu06/26/23 at 1300, Until Discontinued, LOW DOSE (Elderly insulin sensitive patient): Sliding Scale Correctional insulin may be given if the patient is NPO. Dose based on standard build from Insulin Calculator. Do not modify insulin doses in administration instructions! , Glucose less than 70 instructions: Obtain STAT lab blood glucose and call covering provider., Glucose 80-150 (units): 0, Glucose 151-200 (units): 1, Glucose 201-250 (units): 2, Glucose 251-300 (units): 3, Glucose greater than 300 (units): 4, Glucose greater than 300 instructions: Give suggested insulin dose and call covering provider. 0800 (Not Given - Provider: Linda Machado RN - Reason: Parameter(s) Not Met)1200 (Not Given - Provider: Linda Machado RN - Reason: Parameter(s) Not Met)1700 (Not Given - Provider: Linda Machado RN - Reason: Parameter(s) Not Met)2200 (No Insulin - Provider: Saira Ahn RN - Reason: Parameter(s) Not Met) 0800 (No Insulin - Provider: Saira Ahn RN - Reason: Parameter(s) Not Met)1200 (No Insulin - Provider: Nano Cochran RN - Reason: Parameter(s) Not Met)1700 (No Insulin - Provider: Nano Cochran RN - Reason: Parameter(s) Not Met)2200 (No Insulin - Provider: Anne Daniel RN - Reason: Parameter(s) Not Met) 0700 (No Insulin - Provider: Anne Daniel RN - Reason: Parameter(s) Not Met)1200 (Not Given - Provider: Jadyn Wilks RN - Reason: Parameter(s) Not Met) levoFLOXacin (Levaquin) tab 750 mg (CANCELED) 750 mg, Oral, Daily(AM), First dose (after last modification) on Thu07/06/23 at 1745, Last dose on Thu07/15/23 at 0900, For 10 days, Hold antacids and iron for 3-4 hours before and after administration 1719 (Given - Provider: Nano Cochran RN) 0844 (Given - Provider: Jadyn Wilks, RYLAN) Loratadine (Claritin) tab 10 mg 10 mg, Oral, Daily(AM), First dose on Thu06/21/23 at 0900, Until Discontinued 921 (Given - Provider: Linda Machado RN) 08 (Given - Provider: Nano Cochran RN) 0845 (Given - Provider: Jadyn Wilks, RYLAN) OLANZapine (zyPREXA) tab 10 mg (COMPLETED) 10 mg, Oral, QHS, First dose on Thu07/02/23 at 2200, Last dose on Thu07/06/23 at 2200, For 5 doses 2051 (Given - Provider: Saira Ahn RN) 2110 (Given - Provider: Anne Daniel RN) omeprazole (PriLOSEC) cap 20 mg (CANCELED) 20 mg, Oral, Daily(AM), First dose on Thu06/21/23 at 0900, Until Discontinued 921 (Given - Provider: Linda Machado RN) 826 (Given - Provider: Nano Cochran RN) omeprazole (PriLOSEC) cap 40 mg 40 mg, Oral, Daily(AM), First dose (after last modification) on Thu07/07/23 at 0900, Until Discontinued 843 (Given - Provider: Jadyn Wilks, RYLAN) ondansetron (Zofran) tab 16 mg (COMPLETED) 16 mg, Oral, Q24H, First dose on Thu07/03/23 at 1330, Last dose on Thu07/06/23 at 1330, For 4 doses, Give 30 minutes prior to chemotherapy 1920 (Given - Provider: Saira Ahn RN) 1324 (Given - Provider: Nano Cochran RN) Oral Hygiene: Mouth Swab with dentifrice Oral, PCHS, First dose on Thu06/26/23 at 1300, Until Discontinued, To be used with 1.5% hydrogen peroxide solution or 0.05% cetylpyridium chloride oral rinse 0900 (Given - Provider: Linda Machado RN - Comment: pts own toothbrush)1300 (Given - Provider: Linda Machado RN - Comment: pt own toothbrush)1800 (Given - Provider: Linda Machado RN - Comment: pts own toothbrush)2200 (Given - Provider: Saira Ahn RN) 0900 (Given - Provider: Nano Cochran RN)1300 (Given - Provider: Nano Cochran RN)1800 (Given - Provider: Nano Cochran RN)2200 (Given - Provider: Anne Daniel RN) 0900 (Not Given - Provider: Jadyn Wilks RN - Reason: Parameter(s) Not Met - Comment: Patient uses own tooth brush)1300 (Due) Polyethylene Glycol 3350 (Miralax) oral powder 17 g (CANCELED) 17 g (1 Packet), Oral, Daily(AM), First dose (after last modification) on Thu07/01/23 at 0900, Until Discontinued, Mix in 8 oz of water, juice, soda, coffee, or tea. 920 (Given - Provider: Linda Machado RN) 825 (Given - Provider: Nano Cochran RN) 842 (Given - Provider: Jadyn Wilks RN) Polyethylene Glycol 3350 (Miralax) oral powder 17 g 17 g (1 Packet), Oral, BID (899,2099), First dose (after last modification) on Thu07/07/23 at 2100, Until Discontinued, Mix in 8 oz of water, juice, soda, coffee, or tea. propranolol (Inderal) tab 40 mg 40 mg, Oral, BID (.AM/PM), First dose on Thu06/21/23 at 0900, Until Discontinued, Hold for HR less than 60 or SBP below 100 and notify service if dose is held 921 (Given - Provider: Linda Machado RN)2051 (Given - Provider: Saira Ahn RN) 825 (Given - Provider: Nano Cochran RN)2111 (Given - Provider: Anne Daniel RN) 44 (Given - Provider: Jadyn Wilks, RYLAN) senna-docusate (Senokot-S) 1 Tablet (CANCELED) 1 Tablet, Oral, BID (799,1999), First dose (after last modification) on Thu07/01/23 at 1999, Until Discontinued 799 (Not Given - Provider: Linda Machado RN - Reason: Parameter(s) Not Met)1999 (Not Given - Provider: Saira Ahn RN - Reason: Parameter(s) Not Met) 08 (Not Given - Provider: Nano Cochran RN - Reason: Parameter(s) Not Met)103 (Given - Provider: Nano Cochran RN)2110 (Given - Provider: Anne Daniel RN) 0845 (Given - Provider: Jadyn Wilks, RYLAN) senna-docusate (Senokot-S) 2 Tablet 2 Tablet, Oral, BID (799,1999), First dose (after last modification) on Thu07/07/23 at 1999, Until Discontinued sodium chloride 0.9 % flush/inj 10 mL 10 mL, IV Push, Q8H, First dose on Thu06/26/23 at 1400, Until Discontinued, To each lumen if no medications are ordered. Flush before and after all port access. 0412 (Given - Provider: Saira Ahn RN)1400 (Not Given - Provider: Linda Machado RN - Reason: Parameter(s) Not Met)2001 (Given - Provider: Saira Ahn RN) 0308 (Given - Provider: Saira Ahn RN)1400 (Given - Provider: Nano Cochran RN)2200 (Given - Provider: Anne Daniel RN) 0600 (Given - Provider: Anne Daniel RN) sulfamethoxazole-trimetho prim 400-80 mg per tab (Bactrim) 1 Tablet 1 Tablet, Oral, Daily(AM), First dose on Thu07/03/23 at 1100, Until Discontinued 921 (Given - Provider: Linda Machado RN) 08 (Given - Provider: Nano Cochran RN) 0845 (Given - Provider: Jadyn Wilks, RYLAN) topiramate (topAMAX) tab 100 mg 100 mg, Oral, BID (.AM/PM), First dose on Thu06/21/23 at 0900, Until Discontinued 921 (Given - Provider: Linda Machado RN)2051 (Given - Provider: Saira Ahn RN) 08 (Given - Provider: Nano Cochran, RN)2111 (Given - Provider: Anne Daniel RN) 0844 (Given - Provider: Jadyn Wilks, RYLAN) Continuous Medication Order 07/05/2023 07/06/2023 07/07/2023 NSS infusion (CANCELED) Intravenous, at 40 mL/hr, CONTINUOUS, Starting on 07/04/23 at 1100, Until 07/05/23 at 1046 0414 (Paused - Provider: Saira Ahn RN)0423 (Restarted - Provider: Saira Ahn RN)0649 (Rate Verify - Provider: Saira Ahn RN)1046 (Stopped - Provider: Linda Machado RN) PRN Medication Order 07/05/2023 07/06/2023 07/07/2023 Acetaminophen (Tylenol) tab 650 mg 650 mg, Oral, Q6H PRN Pain, Mild, Fever >38C(100.5F), Headache, Starting on 06/27/23 at 1545, Until 07/07/23 at 1741, Maximum of 4 grams (4000 mg) per day. 0054 (Given - Provider: Saira Ahn RN) Albuterol Sulfate (Proventil) (2.5 MG/3ML) 0.083% inhalation solution 2.5 mg 2.5 mg, Nebulizer, Q6H PRN Dyspnea, Starting on 06/20/23 at 2342, Until 07/07/23 at 1741 Alteplase (Cathflo Activase) inj 2 mg 2 mg, IV Push, PRN line occlusion , Starting on Tess 06/25/23 at 1652, Until 07/07/23 at 1741, For 15 doses, For use in Catheter occlusion to be administered by IV Therapy nurses only at [facility]. At [facility]: IV Therapy PICC RN, Nursing [employer], MSICU RN's and Emergency Department RN's *Obtain Alteplase (CathFlo Activase) *Reconstitute Alteplase (CathFlo Activase) 2mg in 2.2ml sterile water *Instill Alteplase (CathFlo Activase) into occluded lumen(s) *After 30 minutes dwell time in catheter, assess catheter patency by attempting to aspirate blood. If catheter is patent withdraw 4-5 ml of blood to remove Alteplase (CathFlo Activase) and residual clot. Flush lumen with 10ml 0.9% normal saline *If catheter function is not restored allow for further dwell up to 120 minutes. *If catheter function is not restored, a second dose of Alteplase (CathFlo Activase) may be administered. *if catheter is stll not restored call a physician dextrose 50% inj 25 mL 25 mL, IV Push, PRN Hypoglycemia, Other, For blood glucose 54 - 69 mg/dL or 70 - 100 mg/dL with symptoms AND patient is unresponsive, NPO, OR unable to swallow, Starting on Thu06/26/23 at 1216, Until Thu07/07/23 at 1741, Administer IV. Recheck blood glucose after 15 minutes. Notify provider. dextrose 50% inj 50 mL 50 mL, IV Push, PRN Hypoglycemia, Other, For blood glucose below 54 mg/dL AND patient unresponsive, NPO, OR unable to swallow, Starting on Thu06/26/23 at 1216, Until Thu07/07/23 at 1741, Administer IV. Recheck blood glucose in 15 minutes. Notify provider. diphenhydrAMINE (Benadryl) inj 50 mg 50 mg, IV Push, PRN Other, Hypersensitivity Reaction, Starting on Thu07/02/23 at 0838, Until Thu07/07/23 at 1741 EPINEPHrine 1 MG/ML inj 0.3 mg 0.3 mg, Intramuscular, PRN Other, Hypersensitivity Reaction or Anaphylaxis, Starting on Thu07/02/23 at 0838, Until Thu07/07/23 at 1741 glucagon (Glucagen) inj 1 mg 1 mg, Intramuscular, PRN Hypoglycemia, Other, If patient is unresponsive, or NPO and has no IV access, Starting on Thu06/26/23 at 1216, Until Thu07/07/23 at 1741, NPO and no IV access with either 1) blood glucose less than 100 mg/dL and symptomatic OR 2) blood glucose less than 70 mg/dL and asymptomatic Glucose (Glutose 15) 40 % gel 15 g of glucose 15 g of glucose, Oral, PRN Hypoglycemia (low sugar), Other, For blood glucose 54 - 69 mg/dL or 70 - 100 mg/dL with symptoms AND patient alert WITH difficulty chewing/swallowing, Starting on Thu06/26/23 at 1216, Until Thu07/07/23 at 1741, Administer gel. Recheck blood glucose after 15 minutes. Notify provider. 37.5 gram tube = 15 grams glucose = 1 each Glucose (Glutose 15) 40 % gel 30 g of glucose 30 g of glucose, Oral, PRN Hypoglycemia (low sugar), Other, For blood glucose below 54 mg/dL AND patient alert WITH difficulty chewing/swallowing, Starting on Thu06/26/23 at 1216, Until Thu07/07/23 at 1741, Administer gel. Recheck blood glucose after 15 minutes. Notify provider. 37.5 gram tube = 15 grams glucose = 1 each glucose chew tab 16 g 16 g, Oral, PRN Hypoglycemia, Other, For blood glucose 54 - 69 mg/dL or 70 - 100 mg/dL with symptoms and patient alert without difficulty chewing/swallowing., Starting on Thu06/26/23 at 1216, Until Thu07/07/23 at 1741 hEParin 100 UNIT/ML Lock Flush inj 300 Units 300 Units (3 mL), IV Push, PRN Other, Flush before discharge, Starting on Thu06/26/23 at 1026, Until Thu07/07/23 at 1741, For 1 dose, Prior to discharge, to each lumen house antacid (Mi-Acid II) oral susp 30 mL 30 mL, Oral, Q6H PRN Indigestion, Nausea, Starting on 07/06/23 at 1432, Until Thu07/07/23 at 1741, SHAKE WELL 1505 (Given - Provider: Nano Cochran, RYLAN) Hydrocortisone Sod Suc (PF) (Solu-Cortef) inj 100 mg 100 mg, IV Push, PRN Other, Hypersensitivity Reaction, Starting on Thu07/02/23 at 0838, Until Thu07/07/23 at 1741 HYDROmorphone (Dilaudid) tab 3 mg 3 mg, Oral, Q4H PRN Pain, Moderate, Pain, Severe, Starting on Thu07/01/23 at 1048, Until Thu07/07/23 at 1741 0411 (Given - Provider: Saira Ahn, RN)1451 (Given - Provider: Linda Machado, RN)2304 (Given - Provider: Saira Ahn, RN) 1419 (Given - Provider: Nano Cochran, RYLAN) loperamide (Imodium) cap 4 mg 4 mg, Oral, Q6H PRN Diarrhea, Starting on 06/27/23 at 1030, Until Thu07/07/23 at 1741, Maximum of 16 mg per day recommended LORAzepam (Ativan) tab 0.5 mg 0.5 mg, Oral, ONCE PRN Anxiety, Nausea, Starting on Tess 07/02/23 at 0915, Until Thu07/07/23 at 1741 naloxone (Narcan) 0.4 MG/ML inj 0.08 mg 0.08 mg, IV Push, PRN Other, RR less than 8, Starting on 06/21/23 at 1133, Until Thu07/07/23 at 1741, Stop and call Chief Underwriter, may repeat 0.04 mg IVP q1 minute ondansetron ODT (Zofran) tab 4 mg 4 mg, On Tongue, Q8H PRN Nausea, Vomiting, Starting on 06/20/23 at 2335, Until Thu07/07/23 at 1741 prochlorperazine (Compazine) inj 10 mg 10 mg, IV Push, Q6H PRN Nausea, Vomiting, Starting on 06/28/23 at 1639, Until Thu07/07/23 at 1741, Not relieved with zofran Saline ([place]) nasal spray 1 [place], Nasal, PRN Other, Starting on 06/24/23 at 1608, Until Thu07/07/23 at 1741 sodium chloride 0.9 % flush/inj 3 mL 3 mL, IV Push, PRN Other, Line Patency, Starting on 06/20/23 at 2227, Until Thu07/07/23 at 1741, Do not flush if lock, PICC, or central line not in place, IV infusing or unable to flush documented in this encounter Additional Health Concerns [...] Discussion of Advance Directives occurred with: Patient Care Teams Outreach Nurse Relationship Specialty Start Date End Date Kayla Reeder DO [address] [facility] [place] [place] [address] PCP - General Family Medicine 06/11/23 documented as of this encounter
--- OUTSIDE RECORDS SUMMARY | 2023-09-18 21:36 | External Medical Summary ---
Author Name Unknown Address Unknown Organization [id number]:LABORATORY [facility] - [address] [place] [address] Laboratory Report Ordering Provider Test Date Status TIMO SUTTON 07/06/2023 03:22:31 Final Observation Date Value Abnormality Reference (Units ) Status Uric Acid 07/06/2023 03:22:31 4.2 3.4-7.0 (m g/dL) Final Performing Location [facility] - [address] [place] [address]
--- OUTSIDE RECORDS SUMMARY | 2023-09-18 21:36 | External Medical Summary ---
Author Name Unknown Address Unknown Organization [id number]:LABORATORY [facility] [place] - [address] [place] [address] Laboratory Report Ordering Provider Test Date Status TIMO SUTTON 07/06/2023 03:22:31 Final Observation Date Value Abnormality Reference (Units ) Status Troponin T 07/06/2023 03:22:31 <6 <=22 (ng/ L) Final Performing Location [facility] - [address] [place] [address]
--- OUTSIDE RECORDS SUMMARY | 2023-09-18 21:36 | External Medical Summary ---
Author Name Unknown Address Unknown Organization [id number]:[place] [facility] [place] [address] [facility] [address] Laboratory Report Ordering Provider Test Date Status WILMAN PRADO 07/05/2023 04:24:53 Final Observation Date Value Abnormality Reference (Units ) Status WBC, Total 07/05/2023 04:24:53 3.51 Below low normal 4.00-10.80 (K/uL) Final RBC 07/05/2023 04:24:53 3.74 4.50-5.25 (M/uL) Final Hemoglobin 07/05/2023 04:24:53 11.1 Below low normal 14.0-16.8 (g/dL) Final HCT 07/05/2023 04:24:53 33.7 Below low normal 40.0-48.4 (%) Final MCV 07/05/2023 04:24:53 90.1 82.0-99.5 (fL) Final MCH 07/05/2023 04:24:53 29.7 27.0-34.0 (pg) Final MCHC 07/05/2023 04:24:53 32.9 32.0-36.0 (g/dL) Final RDW 07/05/2023 04:24:53 12.6 11.5-15.5 (%) Final Platelets 07/05/2023 04:24:53 209 140-400 (K/uL) Final MPV 07/05/2023 04:24:53 9.7 6.6-11.1 (fL) Final Nucleated erythrocytes/100 leukocytes [Ratio] in Blood by Automated count 07/05/2023 04:24:53 0 <=0 (/100 WBCs) Final Performing Location [facility] [address] [place] [address]
--- OUTSIDE RECORDS SUMMARY | 2023-09-18 21:36 | External Medical Summary ---
Author Name Unknown Address Unknown Organization [id number]:[facility]ORY [facility] [place] [address] [place] [address] Laboratory Report Ordering Provider Test Date Status CHANELL FIORE 07/07/2023 04:59:34 Final Observation Date Value Abnormality Reference (Units ) Status Albumin 07/07/2023 04:59:34 3.9 3.8-5.0 (g/dL) Final AST (Aspartate aminotransferase) 07/07/2023 04:59:34 25 10-50 (U/L) Final Alk Phos 07/07/2023 04:59:34 70 35-130 (U/L) Final ALT (Alanine aminotransferase) 07/07/2023 04:59:34 61 Above high normal 10-50 (U/L) Final Bilirubin, Total 07/07/2023 04:59:34 0.3 <=1.2 (mg/dL) Final Bilirubin, Direct 07/07/2023 04:59:34 <0.2 0.0-0.3 (mg/dL) Final Protein 07/07/2023 04:59:34 6.4 6.0-8.3 (g/dL) Final Performing Location LAB[facility]ATORY [facility] [place] [address] [place] [address]
--- OUTSIDE RECORDS SUMMARY | 2023-09-18 21:36 | External Medical Summary ---
Author Name Unknown Address Unknown Organization [id number]:[place] [facility] [place] [address] [facility] [address] Laboratory Report Ordering Provider Test Date Status WILMAN PRADO 07/05/2023 04:24:53 Final Observation Date Value Abnormality Reference (Units ) Status SYNC LEUKOCYTES IN BLOOD BY AUTOMATED COUNT 07/05/2023 04:24:53 3.51 Below low normal 4.00-10.80 (K/uL) Final Segs 07/05/2023 04:24:53 64.9 40.0-75.0 (%) Final Lymphs % 07/05/2023 04:24:53 23.6 18.0-42.0 (%) Final Monos 07/05/2023 04:24:53 7.7 1.0-11.0 (%) Final Eosinophils 07/05/2023 04:24:53 2.6 0.0-6.0 (%) Final Basos 07/05/2023 04:24:53 0.3 0.0-2.0 (%) Final Immature Granulocyte, Percent 07/05/2023 04:24:53 0.9 0.0-2.0 (%) Final Absolute Segs 07/05/2023 04:24:53 2.28 1.80-7.70 (K/uL) Final Lymphs, absolute 07/05/2023 04:24:53 0.83 Below low normal 1.00-4.80 (K/ul) Final Monos, Abs 07/05/2023 04:24:53 0.27 0.00-1.10 (K/uL) Final Eos, Abs 07/05/2023 04:24:53 0.09 0.00-0.70 (K/uL) Final Basos, Abs 07/05/2023 04:24:53 0.01 0.00-0.20 (K/uL) Final Immature Granulocytes, Number 07/05/2023 04:24:53 0.03 0.00-0.20 (K/uL) Final Performing Location LAB[facility]ORY [facility] [place] [address] [facility] [address]
--- OUTSIDE RECORDS SUMMARY | 2023-09-18 21:36 | External Medical Summary ---
Author Name Unknown Address Unknown Organization K01:[facility] - [address] [place] [address] Laboratory Report Ordering Provider Test Date Status JAMES LOPEZ 07/07/2023 04:59:34 Final Observation Date Value Abnormality Reference (Units ) Status Magnesium 07/07/2023 04:59:34 2.3 1.5-2.6 (m g/dL) Final Performing Location [facility] - [address] [place] [address]
--- OUTSIDE RECORDS SUMMARY | 2023-09-18 21:36 | External Medical Summary ---
Author Name Unknown Address Unknown Organization K01:LAB[facility]ATORY [facility] - [address] [place] [address] Laboratory Report Ordering Provider Test Date Status TIMO SUTTON 07/07/2023 04:59:34 Final Observation Date Value Abnormality Reference (Units ) Status Uric Acid 07/07/2023 04:59:34 4.5 3.4-7.0 (m g/dL) Final Performing Location [facility] - [address] [place] [address]
--- OUTSIDE RECORDS SUMMARY | 2023-09-18 21:36 | External Medical Summary ---
Author Name Unknown Address Unknown Organization K01:[facility] - [address] [place] [address] Laboratory Report Ordering Provider Test Date Status TIMO SUTTON 07/07/2023 04:59:34 Final Observation Date Value Abnormality Reference (Units ) Status Phosphate 07/07/2023 04:59:34 2.9 2.5-4.8 (m g/dL) Final Performing Location [facility] - [address] [place] [address]
--- OUTSIDE RECORDS SUMMARY | 2023-09-18 21:36 | External Medical Summary ---
Author Name Unknown Address Unknown Organization : Laboratory Report Ordering Provider Test Date Status CHINYERE RODRIGUES 07/06/2023 11:14:24 Final Observation Date Value Abnormality Reference (Units ) Status Glucose Point of Care 07/06/2023 11:14:24 106 70-120 (mg/dL) Final Performing Location
--- OUTSIDE RECORDS SUMMARY | 2023-09-18 21:36 | External Medical Summary ---
Author Name Unknown Address Unknown Organization K01:[facility] - [address] [place] [address] Laboratory Report Ordering Provider Test Date Status TIMO SUTTON 07/05/2023 04:24:53 Final Observation Date Value Abnormality Reference (Units ) Status LDH 07/05/2023 04:24:53 202 <=250 (U/L ) Final Performing Location [facility] - [address] [place] [address]
--- OUTSIDE RECORDS SUMMARY | 2023-09-18 21:36 | External Medical Summary ---
Author Name Unknown Address Unknown Organization K01:[facility] - [address] [place] [address] Laboratory Report Ordering Provider Test Date Status TIMO SUTTON 07/04/2023 21:52:00 Final Observation Date Value Abnormality Reference (Units ) Status Phosphate 07/04/2023 21:52:00 4.3 2.5-4.8 (m g/dL) Final Performing Location [facility] - [address] [place] [address]
--- OUTSIDE RECORDS SUMMARY | 2023-09-18 21:36 | External Medical Summary ---
Author Name Unknown Address Unknown Organization K01:LABORATORY [facility] [place] - [address] [facility] [address] Laboratory Report Ordering Provider Test Date Status WILMAN PRADO 07/07/2023 04:59:34 Final Observation Date Value Abnormality Reference (Units ) Status SYNC LEUKOCYTES IN BLOOD BY AUTOMATED COUNT 07/07/2023 04:59:34 2.72 Below low normal 4.00-10.80 (K/uL) Final Segs 07/07/2023 04:59:34 74.2 40.0-75.0 (%) Final Lymphs % 07/07/2023 04:59:34 18.8 18.0-42.0 (%) Final Monos 07/07/2023 04:59:34 2.2 1.0-11.0 (%) Final Eosinophils 07/07/2023 04:59:34 3.7 0.0-6.0 (%) Final Basos 07/07/2023 04:59:34 0.4 0.0-2.0 (%) Final Immature Granulocyte, Percent 07/07/2023 04:59:34 0.7 0.0-2.0 (%) Final Absolute Segs 07/07/2023 04:59:34 2.02 1.80-7.70 (K/uL) Final Lymphs, absolute 07/07/2023 04:59:34 0.51 Below low normal 1.00-4.80 (K/ul) Final Monos, Abs 07/07/2023 04:59:34 0.06 0.00-1.10 (K/uL) Final Eos, Abs 07/07/2023 04:59:34 0.10 0.00-0.70 (K/uL) Final Basos, Abs 07/07/2023 04:59:34 0.01 0.00-0.20 (K/uL) Final Immature Granulocytes, Number 07/07/2023 04:59:34 0.02 0.00-0.20 (K/uL) Final Performing Location LABORATORY [facility] [place] - [address] [facility] [address]
--- OUTSIDE RECORDS SUMMARY | 2023-09-18 21:36 | External Medical Summary ---
Author Name Unknown Address Unknown Organization K01:LABORATORY [facility] - [address] [facility] [address] Laboratory Report Ordering Provider Test Date Status WILMAN PRADO 07/06/2023 03:22:31 Final Observation Date Value Abnormality Reference (Units ) Status SYNC LEUKOCYTES IN BLOOD BY AUTOMATED COUNT 07/06/2023 03:22:31 4.87 4.00-10.80 (K/uL) Final Segs 07/06/2023 03:22:31 76.3 Above high normal 40.0-75.0 (%) Final Lymphs % 07/06/2023 03:22:31 16.0 Below low normal 18.0-42.0 (%) Final Monos 07/06/2023 03:22:31 4.3 1.0-11.0 (%) Final Eosinophils 07/06/2023 03:22:31 1.8 0.0-6.0 (%) Final Basos 07/06/2023 03:22:31 0.2 0.0-2.0 (%) Final Immature Granulocyte, Percent 07/06/2023 03:22:31 1.4 0.0-2.0 (%) Final Absolute Segs 07/06/2023 03:22:31 3.71 1.80-7.70 (K/uL) Final Lymphs, absolute 07/06/2023 03:22:31 0.78 Below low normal 1.00-4.80 (K/ul) Final Monos, Abs 07/06/2023 03:22:31 0.21 0.00-1.10 (K/uL) Final Eos, Abs 07/06/2023 03:22:31 0.09 0.00-0.70 (K/uL) Final Basos, Abs 07/06/2023 03:22:31 0.01 0.00-0.20 (K/uL) Final Immature Granulocytes, Number 07/06/2023 03:22:31 0.07 0.00-0.20 (K/uL) Final Performing Location LABORATORY [facility] [place] [facility] [address] [facility] [address]
--- OUTSIDE RECORDS SUMMARY | 2023-09-18 21:36 | External Medical Summary ---
Author Name Unknown Address Unknown Organization K01:[place]ORY [facility] [place] [facility] [address] [place] [address] Laboratory Report Ordering Provider Test Date Status CHANELL FIORE 07/06/2023 03:22:31 Final Observation Date Value Abnormality Reference (Units ) Status Albumin 07/06/2023 03:22:31 3.7 Below low normal 3.8-5.0 (g/dL) Final AST (Aspartate aminotransferase) 07/06/2023 03:22:31 21 10-50 (U/L) Final Alk Phos 07/06/2023 03:22:31 62 35-130 (U/L) Final ALT (Alanine aminotransferase) 07/06/2023 03:22:31 51 Above high normal 10-50 (U/L) Final Bilirubin, Total 07/06/2023 03:22:31 0.4 <=1.2 (mg/dL) Final Bilirubin, Direct 07/06/2023 03:22:31 <0.2 0.0-0.3 (mg/dL) Final Protein 07/06/2023 03:22:31 5.9 Below low normal 6.0-8.3 (g/dL) Final Performing Location LABORATORY [facility] [place] [address] [place] [address]
--- OUTSIDE RECORDS SUMMARY | 2023-09-18 21:36 | External Medical Summary ---
Author Name Unknown Address Unknown Organization K01:[facility] - [address] [place] [address] Laboratory Report Ordering Provider Test Date Status TIMO SUTTON 07/05/2023 04:24:53 Final Observation Date Value Abnormality Reference (Units ) Status Phosphate 07/05/2023 04:24:53 4.1 2.5-4.8 (m g/dL) Final Performing Location [facility] - [address] [place] [address]
--- OUTSIDE RECORDS SUMMARY | 2023-09-18 21:36 | External Medical Summary ---
Author Name Unknown Address Unknown Organization : Laboratory Report Ordering Provider Test Date Status CHINYERE RODRIGUES 07/05/2023 21:34:11 Final Observation Date Value Abnormality Reference (Units ) Status Glucose Point of Care 07/05/2023 21:34:11 109 70-120 (mg/dL) Final Performing Location
--- OUTSIDE RECORDS SUMMARY | 2023-09-18 21:36 | External Medical Summary ---
Author Name Unknown Address Unknown Organization : Laboratory Report Ordering Provider Test Date Status CHINYERE RODRIGUES 07/06/2023 16:21:42 Final Observation Date Value Abnormality Reference (Units ) Status Glucose Point of Care 07/06/2023 16:21:42 120 70-120 (mg/dL) Final Performing Location
--- OUTSIDE RECORDS SUMMARY | 2023-09-18 21:36 | External Medical Summary ---
Author Name Unknown Address Unknown Organization K01:LABORATORY [facility] [place] - [address] [place] [address] Laboratory Report Ordering Provider Test Date Status TIMO SUTTON 07/07/2023 04:59:34 Final Observation Date Value Abnormality Reference (Units ) Status Troponin T 07/07/2023 04:59:34 <6 <=22 (ng/ L) Final Performing Location [facility] - [address] [place] [address]
--- OUTSIDE RECORDS SUMMARY | 2023-09-18 21:36 | External Medical Summary ---
Author Name Unknown Address Unknown Organization K01:[place]ORY [facility] [place] [address] [facility] [address] Laboratory Report Ordering Provider Test Date Status WILMAN PRADO 07/07/2023 04:59:34 Final Observation Date Value Abnormality Reference (Units ) Status WBC, Total 07/07/2023 04:59:34 2.72 Below low normal 4.00-10.80 (K/uL) Final RBC 07/07/2023 04:59:34 3.58 4.50-5.25 (M/uL) Final Hemoglobin 07/07/2023 04:59:34 10.7 Below low normal 14.0-16.8 (g/dL) Final HCT 07/07/2023 04:59:34 32.1 Below low normal 40.0-48.4 (%) Final MCV 07/07/2023 04:59:34 89.7 82.0-99.5 (fL) Final MCH 07/07/2023 04:59:34 29.9 27.0-34.0 (pg) Final MCHC 07/07/2023 04:59:34 33.3 32.0-36.0 (g/dL) Final RDW 07/07/2023 04:59:34 12.5 11.5-15.5 (%) Final Platelets 07/07/2023 04:59:34 184 140-400 (K/uL) Final MPV 07/07/2023 04:59:34 9.6 6.6-11.1 (fL) Final Nucleated erythrocytes/100 leukocytes [Ratio] in Blood by Automated count 07/07/2023 04:59:34 0 <=0 (/100 WBCs) Final Performing Location LABORATORY [facility] - [address] [facility] [address] [place] [place] [address]
--- OUTSIDE RECORDS SUMMARY | 2023-09-18 21:36 | External Medical Summary | Summary of Care ---
Author Name Unknown Organization [facility] Address [address] [place] [address] Phone [phone] Care Team Providers Care Extruding Press Adjuster Name Role Phone ReederKaylasnehal MALDONADO Primary Care Provider [phone] Reason for Visit * Reason Onset Date Comments Order Request 07/06/2023 Encounter Details Date Type Department Care Team ([facility] st Contact Info) Description 07/06/2023 Telephone Hematology/Oncology Treatment, [facility] [address] [place] [address] Mike Chaudhary MD [address] [place] [address] Order Request Allergies No known active allergiesdocumented as of this encounter (statuses as of 07/06/2023) Medications Medication Sig Dispensed Refills Start Date End Date Status ASPIRIN 81 MG PO TABS one tablet daily Suspende d Acetaminophen-Cod eine 300-30 MG Oral TabletIndications :Cerebral vasculitis 09/20/2021 Suspended Topiramate 100 MG Oral Tablet (topAMAX) TAKE [...] 60 Each 5 06/11/2023 Suspended Additional Information oxyCODONE-Acetami nophen 5-325 MG Oral Tablet (Percocet)Indicat ions:Retroperiton eal mass Take 1 Tablet by mouth every 6 hours as needed (Pain). 30 Tablet 06/11/2023 Suspended Additional Information Ondansetron HCl 4 MG Oral Tablet Take 1 Tablet by mouth every 6 hours as needed for Nausea. 30 Tablet 06/18/2023 Suspended Additional Information documented as of this encounter (statuses as of 07/06/2023) Active Problems Problem Noted Date Diagnosed Date [...] as of this encounter (statuses as of 07/06/2023) Resolved Problems Problem Noted Date Diagnosed Date Resolved Date Aspiration pneumonitis 06/04/202204/19 Pneumonia of right upper lob e due to infectious organism 07/05/2021 10/11/2021 Muscle spasm 11/29/2020 11/29/2020 Tenosynovitis of ankle [...] as of this encounter (statuses as of 07/06/2023) Immunizations Name Administration Dates Next Due DT [...] money to buy more. Never true 06/11/19 Within the past 12 months, t he [...] Telephone Encounter - Shannon Kendall RN - 07/06/2023 1:38 PM EDT Lab orders placed for cbcd, cmp, uric acid, LD. documented in this encounter Plan of Treatment Upcoming Encounters Date Type Department Care Team (Late st Contact Info) Description 07/15/2023 11:30 AM EDT Laboratory Laboratory, [address] [address] [facility], Lab [address] [place] [address] 07/15/2023 12:30 PM EDT Office Visit Hematology/Oncology, [address] [place] [address] Lakeshia Stone CRNP [address] [place] [address] 07/22/2023 9:00 AM EDT Office Visit Palliative Medicine [facility] [address] [place] [address] Aury Silva MD [address] [place] [address] 07/23/2023 2:00 PM EDT Appointment Radiology, [address] [phone] 07/24/2023 12:40 PM EDT Office Visit Family Practice [address] [place] [address] [place] [place] [address] Calin Galloway PA-C [address] [place] [address] 07/27/2023 9:00 AM EDT Office Visit Hematology/Oncology, [address] [address] Mike Chaudhary MD [address] [place] [address] 08/26/2023 1:00 PM EDT Office Visit Sleep Disorders, [facility] [address] [place] [address] Dave Daigle PA-C [address] [place], [place] [id number] 09/03/2023 2:00 PM EDT Appointment Radiology, [address] [phone] 09/24/2023 2:00 PM EDT Appointment Radiology, [address] [phone] 10/15/2023 2:00 PM EDT Appointment Radiology, [address] [phone] Scheduled Orders Name Type Priority Associated Diagnoses Orde r Schedule CBC WITH WBC DIFFERENTIAL Lab STAT 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) Expected: 07/15/2023 (Approximate), Expires: 07/05/2024 COMPREHENSIVE METABOLIC PANEL Lab STAT 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) Expected: 07/15/2023 (Approximate), Expires: 07/05/2024 URIC ACID Lab STAT 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) Expected: 07/15/2023 (Approximate), Expires: 07/05/2024 LD Lab STAT 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) Expected: 07/15/2023 (Approximate), Expires: 07/05/2024 Health Maintenance Due Date Last Done Comments [...] as of this encounter Visit Diagnoses Diagnosis Retroperitoneal mass- Primary Abdominal or pelvic swelling, mass or lump, unspecified site 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 Question Answer Comments Discussion of Advance Directives occurred with: Patient Care Teams Extruding Press Adjuster Relationship Specialty Start Date End Date Kayla Reeder DO [address] [facility] [address] [place] [address] PCP - General Family Medicine 06/11/23 documented as of this encounter
--- OUTSIDE RECORDS SUMMARY | 2023-09-18 21:36 | External Medical Summary ---
Author Name Unknown Address Unknown Organization : Laboratory Report Ordering Provider Test Date Status CHINYERE RODRIGUES 07/05/2023 07:02:48 Final Observation Date Value Abnormality Reference (Units ) Status Glucose Point of Care 07/05/2023 07:02:48 90 70-120 (mg/dL) Final Performing Location
--- OUTSIDE RECORDS SUMMARY | 2023-09-18 21:36 | External Medical Summary ---
Author Name Unknown Address Unknown Organization K01:LABORATORY [facility] [place] [address] [place] [address] Laboratory Report Ordering Provider Test Date Status TIMO SUTTON 07/06/2023 03:22:31 Final Observation Date Value Abnormality Reference (Units ) Status BUN 07/06/2023 03:22:31 21 Above high normal 6-20 (mg/dL) Final Creatinine 07/06/2023 03:22:31 0.8 0.6-1.2 (mg/dL) Final Glomerular filtration rate/1.73 sq M.predicted [Volume Rate/Area] in Serum, Plasma or Blood by Creatinine-based formula (CKD-EPI) 07/06/2023 03:22:31 >90 >=60 (mL/min) Final eGFR is calculated based on the CKD-EPI 2020 equation Sodium 07/06/2023 03:22:31 137 135-146 (m mol/L) Final Potassium 07/06/2023 03:22:31 3.6 3.5-5.1 (m mol/L) Final Cl 07/06/2023 03:22:31 102 98-107 (mm ol/L) Final CO2 07/06/2023 03:22:31 26 22-32 (mmo l/L) Final Anion gap 07/06/2023 03:22:31 9 7-15 (mmol /L) Final Glucose 07/06/2023 03:22:31 106 70-120 (mg /dL) Final Calcium 07/06/2023 03:22:31 9.1 8.4-10.2 ( mg/dL) Final Performing Location LABORATORY [facility] [place] - [address] [place] [address]
--- OUTSIDE RECORDS SUMMARY | 2023-09-18 21:36 | External Medical Summary ---
Author Name Unknown Address Unknown Organization : Laboratory Report Ordering Provider Test Date Status CHINYERE RODRIGUES 07/06/2023 06:37:39 Final Observation Date Value Abnormality Reference (Units ) Status Glucose Point of Care 07/06/2023 06:37:39 112 70-120 (mg/dL) Final Performing Location
--- OUTSIDE RECORDS SUMMARY | 2023-09-18 21:36 | External Medical Summary ---
Author Name Unknown Address Unknown Organization K01:[facility]ORY [facility] - [address] [place] [address] Laboratory Report Ordering Provider Test Date Status JAMES LOPEZ 07/06/2023 03:22:31 Final Observation Date Value Abnormality Reference (Units ) Status Magnesium 07/06/2023 03:22:31 2.3 1.5-2.6 (m g/dL) Final Performing Location LAB[facility]ATORY [facility] - [address] [place] [address]
--- OUTSIDE RECORDS SUMMARY | 2023-09-18 21:36 | External Medical Summary ---
Author Name Unknown Address Unknown Organization : Laboratory Report Ordering Provider Test Date Status CHINYERE RODRIGUES 07/07/2023 11:20:05 Final Observation Date Value Abnormality Reference (Units ) Status Glucose Point of Care 07/07/2023 11:20:05 100 70-120 (mg/dL) Final Performing Location
--- OUTSIDE RECORDS SUMMARY | 2023-09-18 21:36 | External Medical Summary ---
Author Name Unknown Address Unknown Organization : Laboratory Report Ordering Provider Test Date Status CHINYERE RODRIGUES 07/06/2023 21:07:04 Final Observation Date Value Abnormality Reference (Units ) Status Glucose Point of Care 07/06/2023 21:07:04 121 Above high normal 70-120 (mg/dL) Final Performing Location
--- OUTSIDE RECORDS SUMMARY | 2023-09-18 21:36 | External Medical Summary ---
Author Name Unknown Address Unknown Organization K01:LABORATORY [facility] [place] - [address] [place] [address] Laboratory Report Ordering Provider Test Date Status CHANELL FIORE 07/05/2023 04:24:53 Final Observation Date Value Abnormality Reference (Units ) Status Albumin 07/05/2023 04:24:53 3.7 Below low normal 3.8-5.0 (g/dL) Final AST (Aspartate aminotransferase) 07/05/2023 04:24:53 15 10-50 (U/L) Final Alk Phos 07/05/2023 04:24:53 61 35-130 (U/L) Final ALT (Alanine aminotransferase) 07/05/2023 04:24:53 48 10-50 (U/L) Final Bilirubin, Total 07/05/2023 04:24:53 0.3 <=1.2 (mg/dL) Final Bilirubin, Direct 07/05/2023 04:24:53 <0.2 0.0-0.3 (mg/dL) Final Protein 07/05/2023 04:24:53 6.1 6.0-8.3 (g/dL) Final Performing Location LABORATORY C - [address] [place] [address]
--- OUTSIDE RECORDS SUMMARY | 2023-09-18 21:36 | External Medical Summary ---
Author Name Unknown Address Unknown Organization [id number]:[facility] - [address] [place] [address] Laboratory Report Ordering Provider Test Date Status TIMO SUTTON 07/06/2023 03:22:31 Final Observation Date Value Abnormality Reference (Units ) Status Phosphate 07/06/2023 03:22:31 4.6 2.5-4.8 (m g/dL) Final Performing Location [facility] - [address] [place] [address]
--- OUTSIDE RECORDS SUMMARY | 2023-09-18 21:36 | External Medical Summary ---
Author Name Unknown Address Unknown Organization [id number]:[facility] - [address] [place] [address] Laboratory Report Ordering Provider Test Date Status JAMES LOPEZ 07/05/2023 04:24:53 Final Observation Date Value Abnormality Reference (Units ) Status Magnesium 07/05/2023 04:24:53 2.1 1.5-2.6 (m g/dL) Final Performing Location [facility] - [address] [place] [address]
--- OUTSIDE RECORDS SUMMARY | 2023-09-18 21:36 | External Medical Summary ---
Author Name Unknown Address Unknown Organization [id number]:LABORATORY [facility] [place] - [address] [facility] [address] Laboratory Report Ordering Provider Test Date Status WILMAN PRADO 07/06/2023 03:22:31 Final Observation Date Value Abnormality Reference (Units ) Status WBC, Total 07/06/2023 03:22:31 4.87 4.00-10.80 (K/uL) Final RBC 07/06/2023 03:22:31 3.46 4.50-5.25 (M/uL) Final Hemoglobin 07/06/2023 03:22:31 10.4 Below low normal 14.0-16.8 (g/dL) Final HCT 07/06/2023 03:22:31 30.9 Below low normal 40.0-48.4 (%) Final MCV 07/06/2023 03:22:31 89.3 82.0-99.5 (fL) Final MCH 07/06/2023 03:22:31 30.1 27.0-34.0 (pg) Final MCHC 07/06/2023 03:22:31 33.7 32.0-36.0 (g/dL) Final RDW 07/06/2023 03:22:31 12.7 11.5-15.5 (%) Final Platelets 07/06/2023 03:22:31 179 140-400 (K/uL) Final MPV 07/06/2023 03:22:31 9.8 6.6-11.1 (fL) Final Nucleated erythrocytes/100 leukocytes [Ratio] in Blood by Automated count 07/06/2023 03:22:31 0 <=0 (/100 WBCs) Final Performing Location LABORATORY C - [address] [place] [address]
--- OUTSIDE RECORDS SUMMARY | 2023-09-18 21:36 | External Medical Summary ---
Author Name Unknown Address Unknown Organization : Laboratory Report Ordering Provider Test Date Status CHINYERE RODRIGUES 07/05/2023 11:09:47 Final Observation Date Value Abnormality Reference (Units ) Status Glucose Point of Care 07/05/2023 11:09:47 89 70-120 (mg/dL) Final Performing Location
--- OUTSIDE RECORDS SUMMARY | 2023-09-18 21:36 | External Medical Summary ---
Author Name Unknown Address Unknown Organization [id number]:LABORATORY [facility] [place] [address] [place] [address] Laboratory Report Ordering Provider Test Date Status TIMO SUTTON 07/05/2023 04:24:53 Final Observation Date Value Abnormality Reference (Units ) Status Uric Acid 07/05/2023 04:24:53 3.1 Below low normal 3.4 -7.0 (mg/dL) Final Performing Location LABORATORY C - [address] [place] [address]
--- OUTSIDE RECORDS SUMMARY | 2023-09-18 21:36 | External Medical Summary | Summary of Care ---
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 [...] as of this encounter (statuses as of 07/07/2023) Resolved Problems Problem Noted Date Diagnosed Date [...] as of this encounter (statuses as of 07/07/2023) Immunizations Name Administration Dates Next Due DT [...] 8:00 AM EDT Immunization/Injectio n Hematology/[address] [address] [facility], Chair1 Hem Onc [address] [place], [place] [address] [address] 07/15/2023 11:30 AM EDT Laboratory Laboratory, [address] [phone] [facility], Lab [address] [place], [place] [address] [place] [address] 07/15/2023 12:30 PM EDT Office Visit Hematology/Oncology, [address] [address] Lakeshia Stone CRNP [address] [place] [address] 07/22/2023 9:00 AM EDT Office Visit Palliative Medicine [facility] [address] [facility] [place] [address] Aury Silva MD [address] [place] [address] 07/22/2023 2:00 PM EDT Appointment Radiology, [address] [phone] 07/24/2023 12:40 PM EDT Office Visit [facility] [address] [place] [address] [place] [address] Calin Galloway PA-C [address] [place] [address] 07/27/2023 9:00 AM EDT Office Visit Hematology/Oncology, [address] [address] Mike Chaudhary MD [facility] [place] [address] 08/12/2023 2:00 PM EDT Appointment Radiology, [address] [phone] 08/26/2023 1:00 PM EDT Office Visit Sleep Disorders, [address] [address] Dave Daigle PA-C [address] [place] [address] Scheduled Orders Name Type Priority Associated Diagnoses Orde r Schedule FLUORO GUIDED CHEMO ADMIN INTO DRY CLEANER HAND Medical Imaging Routine 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
--- OUTSIDE RECORDS SUMMARY | 2023-09-18 21:36 | External Medical Summary ---
Author Name Unknown Address Unknown Organization K01:LABORATORY [facility] - [address] [place] [address] Laboratory Report Ordering Provider Test Date Status TIMO SUTTON 07/07/2023 04:59:34 Final Observation Date Value Abnormality Reference (Units ) Status BUN 07/07/2023 04:59:34 16 6-20 (mg/dL) Final Creatinine 07/07/2023 04:59:34 0.8 0.6-1.2 (mg/dL) Final Glomerular filtration rate/1.73 sq M.predicted [Volume Rate/Area] in Serum, Plasma or Blood by Creatinine-based formula (CKD-EPI) 07/07/2023 04:59:34 >90 >=60 (mL/min) Final eGFR is calculated based on the CKD-EPI 2020 equation Sodium 07/07/2023 04:59:34 139 135-146 (m mol/L) Final Potassium 07/07/2023 04:59:34 3.9 3.5-5.1 (m mol/L) Final Cl 07/07/2023 04:59:34 106 98-107 (mm ol/L) Final CO2 07/07/2023 04:59:34 25 22-32 (mmo l/L) Final Anion gap 07/07/2023 04:59:34 8 7-15 (mmol /L) Final Glucose 07/07/2023 04:59:34 110 70-120 (mg /dL) Final Calcium 07/07/2023 04:59:34 9.4 8.4-10.2 ( mg/dL) Final Performing Location LABORATORY [facility] - [address] [place] [address]
--- OUTSIDE RECORDS SUMMARY | 2023-09-18 21:36 | External Medical Summary ---
Author Name Unknown Address Unknown Organization K01:LAB[facility]ATORY [facility] - [address] [place] [address] Laboratory Report Ordering Provider Test Date Status TIMO SUTTON 07/07/2023 04:59:34 Final Observation Date Value Abnormality Reference (Units ) Status LDH 07/07/2023 04:59:34 204 <=250 (U/L ) Final Performing Location [facility] - [address] [place] [address]
--- OUTSIDE RECORDS SUMMARY | 2023-09-18 21:36 | External Medical Summary ---
Author Name Unknown Address Unknown Organization K01:LAB[facility]ATORY [facility] - [address] [place] [address] Laboratory Report Ordering Provider Test Date Status TIMO SUTTON 07/06/2023 03:22:31 Final Observation Date Value Abnormality Reference (Units ) Status LDH 07/06/2023 03:22:31 234 <=250 (U/L ) Final Performing Location [facility] - [address] [place] [address]
--- OUTSIDE RECORDS SUMMARY | 2023-09-18 21:36 | External Medical Summary ---
Author Name Unknown Address Unknown Organization : Laboratory Report Ordering Provider Test Date Status CHINYERE RODRIGUES 07/05/2023 16:03:51 Final Observation Date Value Abnormality Reference (Units ) Status Glucose Point of Care 07/05/2023 16:03:51 87 70-120 (mg/dL) Final Performing Location
--- OUTSIDE RECORDS SUMMARY | 2023-09-18 21:36 | External Medical Summary ---
Author Name Unknown Address Unknown Organization : Laboratory Report Ordering Provider Test Date Status CHINYERE RODRIGUES 07/07/2023 06:35:42 Final Observation Date Value Abnormality Reference (Units ) Status Glucose Point of Care 07/07/2023 06:35:42 106 70-120 (mg/dL) Final Performing Location
--- OUTSIDE RECORDS SUMMARY | 2023-09-18 21:36 | External Medical Summary ---
Author Name Unknown Address Unknown Organization K01:LABORATORY [facility] [place] - [address] [place] [address] Laboratory Report Ordering Provider Test Date Status TIMO SUTTON 07/05/2023 04:24:53 Final Observation Date Value Abnormality Reference (Units ) Status BUN 07/05/2023 04:24:53 21 Above high normal 6-20 (mg/dL) Final Creatinine 07/05/2023 04:24:53 0.8 0.6-1.2 (mg/dL) Final Glomerular filtration rate/1.73 sq M.predicted [Volume Rate/Area] in Serum, Plasma or Blood by Creatinine-based formula (CKD-EPI) 07/05/2023 04:24:53 >90 >=60 (mL/min) Final eGFR is calculated based on the CKD-EPI 2020 equation Sodium 07/05/2023 04:24:53 138 135-146 (m mol/L) Final Potassium 07/05/2023 04:24:53 3.7 3.5-5.1 (m mol/L) Final Cl 07/05/2023 04:24:53 104 98-107 (mm ol/L) Final CO2 07/05/2023 04:24:53 24 22-32 (mmo l/L) Final Anion gap 07/05/2023 04:24:53 10 7-15 (mmol /L) Final Glucose 07/05/2023 04:24:53 122 Above high normal 70 -120 (mg/dL) Final Calcium 07/05/2023 04:24:53 9.2 8.4-10.2 ( mg/dL) Final Performing Location LABORATORY [facility] [place] - [address] [place] [address]
--- OUTSIDE RECORDS SUMMARY | 2023-09-18 21:37 | External Medical Summary ---
Author Name Unknown Address Unknown Organization K01:LAB[facility]ORY [facility] - [address] [place] [address] Laboratory Report Ordering Provider Test Date Status TIMO SUTTON 07/03/2023 22:53:00 Final Observation Date Value Abnormality Reference (Units ) Status Phosphate 07/03/2023 22:53:00 3.5 2.5-4.8 (m g/dL) Final Performing Location [facility] - [address] [place] [address]
--- OUTSIDE RECORDS SUMMARY | 2023-09-18 21:37 | External Medical Summary ---
Author Name Unknown Address Unknown Organization K01:LAB[facility]ATORY [facility] - [address] [place] [address] Laboratory Report Ordering Provider Test Date Status JAMES LOPEZ 07/04/2023 03:17:57 Final Observation Date Value Abnormality Reference (Units ) Status Magnesium 07/04/2023 03:17:57 2.2 1.5-2.6 (m g/dL) Final Performing Location [facility] - [address] [place] [address]
--- OUTSIDE RECORDS SUMMARY | 2023-09-18 21:37 | External Medical Summary ---
Author Name Unknown Address Unknown Organization K01:LABORATORY [facility] [place] - [address] [place] [address] Laboratory Report Ordering Provider Test Date Status TIMO SUTTON 07/04/2023 13:26:28 Final Observation Date Value Abnormality Reference (Units ) Status Uric Acid 07/04/2023 13:26:28 2.6 Below low normal 3.4 -7.0 (mg/dL) Final Performing Location LABORATORY C - [address] [place] [address]
--- OUTSIDE RECORDS SUMMARY | 2023-09-18 21:37 | External Medical Summary ---
Author Name Unknown Address Unknown Organization : Laboratory Report Ordering Provider Test Date Status CHINYERE RODRIGUES 07/04/2023 16:18:56 Final Observation Date Value Abnormality Reference (Units ) Status Glucose Point of Care 07/04/2023 16:18:56 107 70-120 (mg/dL) Final Performing Location
--- OUTSIDE RECORDS SUMMARY | 2023-09-18 21:37 | External Medical Summary ---
Author Name Unknown Address Unknown Organization K01:LAB[facility]ATORY [facility] - [address] [place] [address] Laboratory Report Ordering Provider Test Date Status TIMO SUTTON 07/03/2023 06:21:09 Final Observation Date Value Abnormality Reference (Units ) Status LDH 07/03/2023 06:21:09 213 <=250 (U/L ) Final Performing Location [facility] - [address] [place] [address]
--- OUTSIDE RECORDS SUMMARY | 2023-09-18 21:37 | External Medical Summary ---
Author Name Unknown Address Unknown Organization K01:LAB[facility]ATORY [facility] - [address] [place] [address] Laboratory Report Ordering Provider Test Date Status TIMO SUTTON 07/04/2023 03:17:57 Final Observation Date Value Abnormality Reference (Units ) Status LDH 07/04/2023 03:17:57 178 <=250 (U/L ) Final Performing Location [facility] - [address] [place] [address]
--- OUTSIDE RECORDS SUMMARY | 2023-09-18 21:37 | External Medical Summary ---
Author Name Unknown Address Unknown Organization K01:LABORATORY [facility] [place] - [address] [place] [address] Laboratory Report Ordering Provider Test Date Status TIMO SUTTON 07/04/2023 03:17:57 Final Observation Date Value Abnormality Reference (Units ) Status Uric Acid 07/04/2023 03:17:57 2.5 Below low normal 3.4 -7.0 (mg/dL) Final Performing Location LABORATORY C - [address] [place] [address]
--- OUTSIDE RECORDS SUMMARY | 2023-09-18 21:37 | External Medical Summary ---
Author Name Unknown Address Unknown Organization K01:[facility]ATORY [facility] [place] [address] [place] [address] Laboratory Report Ordering Provider Test Date Status LESLEYTIMO 07/04/2023 21:52:00 Final Observation Date Value Abnormality Reference (Units ) Status Uric Acid 07/04/2023 21:52:00 3.1 Below low normal 3.4 -7.0 (mg/dL) Final Performing Location LABORATORY C - [address] [place] [address]
--- OUTSIDE RECORDS SUMMARY | 2023-09-18 21:37 | External Medical Summary ---
Author Name Unknown Address Unknown Organization K01:LAB[facility]ORY [facility] - [address] [place] [address] Laboratory Report Ordering Provider Test Date Status WILMAN PRADO 07/02/2023 03:27:04 Final Observation Date Value Abnormality Reference (Units ) Status Phosphate 07/02/2023 03:27:04 4.2 2.5-4.8 (m g/dL) Final Performing Location LAB[facility] - [address] [place] [address]
--- OUTSIDE RECORDS SUMMARY | 2023-09-18 21:37 | External Medical Summary ---
Author Name Unknown Address Unknown Organization : Laboratory Report Ordering Provider Test Date Status CHINYERE RODRIGUES 07/04/2023 06:43:28 Final Observation Date Value Abnormality Reference (Units ) Status Glucose Point of Care 07/04/2023 06:43:28 73 70-120 (mg/dL) Final Performing Location
--- OUTSIDE RECORDS SUMMARY | 2023-09-18 21:37 | External Medical Summary ---
Author Name Unknown Address Unknown Organization K01:[place] [place] [address] [place] [address] Laboratory Report Ordering Provider Test Date Status TIMO SUTTON 07/03/2023 06:21:09 Final Observation Date Value Abnormality Reference (Units ) Status Uric Acid 07/03/2023 06:21:09 2.3 Below low normal 3.4 -7.0 (mg/dL) Final Performing Location LABORATORY C - [address] [place] [address]
--- OUTSIDE RECORDS SUMMARY | 2023-09-18 21:37 | External Medical Summary ---
Author Name Unknown Address Unknown Organization K01:LAB[facility]ORY [facility] [place] [address] [place] [address] Laboratory Report Ordering Provider Test Date Status TIMO SUTTON 07/03/2023 22:53:00 Final Observation Date Value Abnormality Reference (Units ) Status BUN 07/03/2023 22:53:00 18 6-20 (mg/dL) Final Creatinine 07/03/2023 22:53:00 0.8 0.6-1.2 (mg/dL) Final Glomerular filtration rate/1.73 sq M.predicted [Volume Rate/Area] in Serum, Plasma or Blood by Creatinine-based formula (CKD-EPI) 07/03/2023 22:53:00 >90 >=60 (mL/min) Final eGFR is calculated based on the CKD-EPI 2020 equation Sodium 07/03/2023 22:53:00 141 135-146 (m mol/L) Final Potassium 07/03/2023 22:53:00 3.9 3.5-5.1 (m mol/L) Final Cl 07/03/2023 22:53:00 108 Above high normal 98 -107 (mmol/L) Final CO2 07/03/2023 22:53:00 24 22-32 (mmo l/L) Final Anion gap 07/03/2023 22:53:00 9 7-15 (mmol /L) Final Glucose 07/03/2023 22:53:00 99 70-120 (mg /dL) Final Calcium 07/03/2023 22:53:00 8.8 8.4-10.2 ( mg/dL) Final Performing Location LABOR[facility]ORY [facility] [place] [address] [place] [address]
--- OUTSIDE RECORDS SUMMARY | 2023-09-18 21:37 | External Medical Summary ---
Author Name Unknown Address Unknown Organization K01:LAB[facility]ATORY [facility] - [address] [place] [address] Laboratory Report Ordering Provider Test Date Status JAMES LOPEZ 07/03/2023 06:21:09 Final Observation Date Value Abnormality Reference (Units ) Status Magnesium 07/03/2023 06:21:09 2.3 1.5-2.6 (m g/dL) Final Performing Location [facility] - [address] [place] [address]
--- OUTSIDE RECORDS SUMMARY | 2023-09-18 21:37 | External Medical Summary ---
Author Name Unknown Address Unknown Organization K01:[place] [facility] [place] [address] [place] [address] Laboratory Report Ordering Provider Test Date Status TILA PETERSEN 07/03/2023 00:04:40 Final Observation Date Value Abnormality Reference (Units ) Status BUN 07/03/2023 00:04:40 15 6-20 (mg/dL) Final Creatinine 07/03/2023 00:04:40 0.7 0.6-1.2 (mg/dL) Final Glomerular filtration rate/1.73 sq M.predicted [Volume Rate/Area] in Serum, Plasma or Blood by Creatinine-based formula (CKD-EPI) 07/03/2023 00:04:40 >90 >=60 (mL/min) Final eGFR is calculated based on the CKD-EPI 2020 equation Sodium 07/03/2023 00:04:40 137 135-146 (m mol/L) Final Potassium 07/03/2023 00:04:40 3.9 3.5-5.1 (m mol/L) Final Cl 07/03/2023 00:04:40 103 98-107 (mm ol/L) Final CO2 07/03/2023 00:04:40 23 22-32 (mmo l/L) Final Anion gap 07/03/2023 00:04:40 11 7-15 (mmol /L) Final Glucose 07/03/2023 00:04:40 155 Above high normal 70 -120 (mg/dL) Final Calcium 07/03/2023 00:04:40 9.3 8.4-10.2 ( mg/dL) Final Performing Location [place] [facility] [place] [address] [place] [address]
--- OUTSIDE RECORDS SUMMARY | 2023-09-18 21:37 | External Medical Summary ---
Author Name Unknown Address Unknown Organization K01:LABORATORY [facility] - [address] [place] [address] Laboratory Report Ordering Provider Test Date Status CHANELL FIORE 07/02/2023 03:27:04 Final Observation Date Value Abnormality Reference (Units ) Status Albumin 07/02/2023 03:27:04 3.7 Below low normal 3.8-5.0 (g/dL) Final AST (Aspartate aminotransferase) 07/02/2023 03:27:04 17 10-50 (U/L) Final Alk Phos 07/02/2023 03:27:04 62 35-130 (U/L) Final ALT (Alanine aminotransferase) 07/02/2023 03:27:04 53 Above high normal 10-50 (U/L) Final Bilirubin, Total 07/02/2023 03:27:04 0.2 <=1.2 (mg/dL) Final Bilirubin, Direct 07/02/2023 03:27:04 <0.2 0.0-0.3 (mg/dL) Final Protein 07/02/2023 03:27:04 6.2 6.0-8.3 (g/dL) Final Performing Location LABORATORY [facility] - [address] [place] [address]
--- OUTSIDE RECORDS SUMMARY | 2023-09-18 21:37 | External Medical Summary ---
Author Name Unknown Address Unknown Organization K01:LABORATORY [facility] - [address] [place] [address] Laboratory Report Ordering Provider Test Date Status WILMAN PRADO 07/02/2023 03:27:04 Final Observation Date Value Abnormality Reference (Units ) Status BUN 07/02/2023 03:27:04 16 6-20 (mg/dL) Final Creatinine 07/02/2023 03:27:04 0.6 0.6-1.2 (mg/dL) Final Glomerular filtration rate/1.73 sq M.predicted [Volume Rate/Area] in Serum, Plasma or Blood by Creatinine-based formula (CKD-EPI) 07/02/2023 03:27:04 >90 >=60 (mL/min) Final eGFR is calculated based on the CKD-EPI 2020 equation Sodium 07/02/2023 03:27:04 138 135-146 (m mol/L) Final Potassium 07/02/2023 03:27:04 3.4 Below low normal 3.5 -5.1 (mmol/L) Final Cl 07/02/2023 03:27:04 104 98-107 (mm ol/L) Final CO2 07/02/2023 03:27:04 25 22-32 (mmo l/L) Final Anion gap 07/02/2023 03:27:04 9 7-15 (mmol /L) Final Glucose 07/02/2023 03:27:04 105 70-120 (mg /dL) Final Calcium 07/02/2023 03:27:04 8.9 8.4-10.2 ( mg/dL) Final Performing Location LABORATORY [facility] - [address] [place] [address]
--- OUTSIDE RECORDS SUMMARY | 2023-09-18 21:37 | External Medical Summary ---
Author Name Unknown Address Unknown Organization K01:LABORATORY [facility] [place] - [address] [place] [address] Laboratory Report Ordering Provider Test Date Status TIMO SUTTON 07/04/2023 03:17:57 Final Observation Date Value Abnormality Reference (Units ) Status BUN 07/04/2023 03:17:57 18 6-20 (mg/dL) Final Creatinine 07/04/2023 03:17:57 0.8 0.6-1.2 (mg/dL) Final Glomerular filtration rate/1.73 sq M.predicted [Volume Rate/Area] in Serum, Plasma or Blood by Creatinine-based formula (CKD-EPI) 07/04/2023 03:17:57 >90 >=60 (mL/min) Final eGFR is calculated based on the CKD-EPI 2020 equation Sodium 07/04/2023 03:17:57 140 135-146 (m mol/L) Final Potassium 07/04/2023 03:17:57 3.9 3.5-5.1 (m mol/L) Final Cl 07/04/2023 03:17:57 107 98-107 (mm ol/L) Final CO2 07/04/2023 03:17:57 24 22-32 (mmo l/L) Final Anion gap 07/04/2023 03:17:57 9 7-15 (mmol /L) Final Glucose 07/04/2023 03:17:57 96 70-120 (mg /dL) Final Calcium 07/04/2023 03:17:57 8.8 8.4-10.2 ( mg/dL) Final Performing Location LABORATORY [facility] [place] - [address] [place] [address]
--- OUTSIDE RECORDS SUMMARY | 2023-09-18 21:37 | External Medical Summary ---
Author Name Unknown Address Unknown Organization K01:LABORATORY [facility] [place] - [address] [place] [address] [place] [address] Laboratory Report Ordering Provider Test Date Status TIMO SUTTON 07/03/2023 13:35:56 Final Observation Date Value Abnormality Reference (Units ) Status Uric Acid 07/03/2023 13:35:56 2.4 Below low normal 3.4 -7.0 (mg/dL) Final Performing Location LABORATORY C - [address] [place] [address]
--- OUTSIDE RECORDS SUMMARY | 2023-09-18 21:37 | External Medical Summary ---
Author Name Unknown Address Unknown Organization [id number]:LAB[facility]ATORY [facility] [place] [address] [place] [address] Laboratory Report Ordering Provider Test Date Status WILMAN PRADO 07/02/2023 03:27:04 Final Observation Date Value Abnormality Reference (Units ) Status Uric Acid 07/02/2023 03:27:04 2.3 Below low normal 3.4 -7.0 (mg/dL) Final Performing Location LABORATORY C - [address] [place] [address]
--- OUTSIDE RECORDS SUMMARY | 2023-09-18 21:37 | External Medical Summary ---
Author Name Unknown Address Unknown Organization : Laboratory Report Ordering Provider Test Date Status CHINYERE RODRIGUES 07/02/2023 21:32:52 Final Observation Date Value Abnormality Reference (Units ) Status Glucose Point of Care 07/02/2023 21:32:52 180 Above high normal 70-120 (mg/dL) Final Performing Location
--- OUTSIDE RECORDS SUMMARY | 2023-09-18 21:37 | External Medical Summary ---
Author Name Unknown Address Unknown Organization [id number]:[facility] - [address] [place] [address] Laboratory Report Ordering Provider Test Date Status TIMO SUTTON 07/03/2023 13:35:56 Final Observation Date Value Abnormality Reference (Units ) Status LDH 07/03/2023 13:35:56 227 <=250 (U/L ) Final Performing Location [facility] - [address] [place] [address]
--- OUTSIDE RECORDS SUMMARY | 2023-09-18 21:37 | External Medical Summary ---
Author Name Unknown Address Unknown Organization [id number]:[place] [place] [facility] [address] [facility] [address] Laboratory Report Ordering Provider Test Date Status TIMO SUTTON 07/02/2023 14:25:13 Final Some reference ranges and ot her method performance specifications have not been established for this fluid. The test results must be integrated into the clinical context for interpretation. Observation Date Value Abnormality Reference (Units ) Status CSF, color 07/02/2023 14:25:13 Colorless Colorless Final CSF, clarity 07/02/2023 14:25:13 Clear Clear Final Color of Spun Cerebral spinal fluid 07/02/2023 14:25:13 Colorless Colorless Final Tube number of Cerebral spinal fluid 07/02/2023 14:25:13 2 Final Nucleated cells [#/volume] in Body fluid by Automated count 07/02/2023 14:25:13 1215 Above high normal <5 (cells/uL) Final Erythrocytes [#/volume] in Cerebral spinal fluid 07/02/2023 14:25:13 3358 Above high normal <5 (cells/uL) Final Performing Location [facility] [place] [address] [place] [address]
--- OUTSIDE RECORDS SUMMARY | 2023-09-18 21:37 | External Medical Summary ---
Author Name Unknown Address Unknown Organization : Laboratory Report Ordering Provider Test Date Status CHINYERE RODRIGUES 07/02/2023 06:35:12 Final Observation Date Value Abnormality Reference (Units ) Status Glucose Point of Care 07/02/2023 06:35:12 98 70-120 (mg/dL) Final Performing Location
--- OUTSIDE RECORDS SUMMARY | 2023-09-18 21:37 | External Medical Summary ---
Author Name Unknown Address Unknown Organization [id number]:[facility]ATORY [facility] - [address] [place] [address] Laboratory Report Ordering Provider Test Date Status CHANELL FIORE 07/02/2023 03:27:04 Final Observation Date Value Abnormality Reference (Units ) Status LDH 07/02/2023 03:27:04 213 <=250 (U/L ) Final Performing Location [facility] - [address] [place] [address]
--- OUTSIDE RECORDS SUMMARY | 2023-09-18 21:37 | External Medical Summary ---
Author Name Unknown Address Unknown Organization [id number]:LABORATORY [facility] [place] - [address] [place] [address] Laboratory Report Ordering Provider Test Date Status CHANELL FIORE 07/04/2023 03:17:57 Final Observation Date Value Abnormality Reference (Units ) Status Albumin 07/04/2023 03:17:57 3.6 Below low normal 3.8-5.0 (g/dL) Final AST (Aspartate aminotransferase) 07/04/2023 03:17:57 18 10-50 (U/L) Final Alk Phos 07/04/2023 03:17:57 58 35-130 (U/L) Final ALT (Alanine aminotransferase) 07/04/2023 03:17:57 57 Above high normal 10-50 (U/L) Final Bilirubin, Total 07/04/2023 03:17:57 0.2 <=1.2 (mg/dL) Final Bilirubin, Direct 07/04/2023 03:17:57 <0.2 0.0-0.3 (mg/dL) Final Protein 07/04/2023 03:17:57 5.8 Below low normal 6.0-8.3 (g/dL) Final Performing Location LABORATORY [facility] [place] - [address] [place] [address]
--- OUTSIDE RECORDS SUMMARY | 2023-09-18 21:37 | External Medical Summary ---
Author Name Unknown Address Unknown Organization K01:[facility] - [address] [place] [address] Laboratory Report Ordering Provider Test Date Status TIMO SUTTON 07/04/2023 03:17:57 Final Observation Date Value Abnormality Reference (Units ) Status Phosphate 07/04/2023 03:17:57 3.6 2.5-4.8 (m g/dL) Final Performing Location [facility] - [address] [place] [address]
--- OUTSIDE RECORDS SUMMARY | 2023-09-18 21:37 | External Medical Summary ---
Author Name Unknown Address Unknown Organization : Laboratory Report Ordering Provider Test Date Status CHINYERE RODRIGUES 07/03/2023 06:36:00 Final Observation Date Value Abnormality Reference (Units ) Status Glucose Point of Care 07/03/2023 06:36:00 120 70-120 (mg/dL) Final Performing Location
--- OUTSIDE RECORDS SUMMARY | 2023-09-18 21:37 | External Medical Summary ---
Author Name Unknown Address Unknown Organization : Laboratory Report Ordering Provider Test Date Status CHINYERE RODRIGUES 07/03/2023 16:13:02 Final Observation Date Value Abnormality Reference (Units ) Status Glucose Point of Care 07/03/2023 16:13:02 157 Above high normal 70-120 (mg/dL) Final Performing Location
--- OUTSIDE RECORDS SUMMARY | 2023-09-18 21:37 | External Medical Summary ---
Author Name Unknown Address Unknown Organization K01:LABORATORY [facility] - [address] [place] [address] Laboratory Report Ordering Provider Test Date Status TIMO SUTTON 07/03/2023 22:53:00 Final Observation Date Value Abnormality Reference (Units ) Status LDH 07/03/2023 22:53:00 252 Above high normal <= 250 (U/L) Final Result may be falsely elevat ed due to hemolysis. Performing Location [facility] - [address] [place] [address]
--- OUTSIDE RECORDS SUMMARY | 2023-09-18 21:37 | External Medical Summary ---
Author Name Unknown Address Unknown Organization K01:LABORATORY [facility] - [address] [place] [address] Laboratory Report Ordering Provider Test Date Status CHANELL FIORE 07/03/2023 06:21:09 Final Observation Date Value Abnormality Reference (Units ) Status Albumin 07/03/2023 06:21:09 3.7 Below low normal 3.8-5.0 (g/dL) Final AST (Aspartate aminotransferase) 07/03/2023 06:21:09 20 10-50 (U/L) Final Alk Phos 07/03/2023 06:21:09 60 35-130 (U/L) Final ALT (Alanine aminotransferase) 07/03/2023 06:21:09 55 Above high normal 10-50 (U/L) Final Bilirubin, Total 07/03/2023 06:21:09 0.3 <=1.2 (mg/dL) Final Bilirubin, Direct 07/03/2023 06:21:09 <0.2 0.0-0.3 (mg/dL) Final Protein 07/03/2023 06:21:09 6.0 6.0-8.3 (g/dL) Final Performing Location LABORATORY [facility] - [address] [place] [address]
--- OUTSIDE RECORDS SUMMARY | 2023-09-18 21:37 | External Medical Summary ---
Author Name Unknown Address Unknown Organization [id number]:[facility]ORY [facility] - [address] [place] [address] Laboratory Report Ordering Provider Test Date Status TMIO SUTTON 07/03/2023 13:35:56 Final Observation Date Value Abnormality Reference (Units ) Status Phosphate 07/03/2023 13:35:56 3.7 2.5-4.8 (m g/dL) Final Performing Location [facility] - [address] [place] [address]
--- OUTSIDE RECORDS SUMMARY | 2023-09-18 21:37 | External Medical Summary ---
Author Name Unknown Address Unknown Organization K01:[facility] - [address] [place] [address] Laboratory Report Ordering Provider Test Date Status TIMO SUTTON 07/04/2023 21:52:00 Final Observation Date Value Abnormality Reference (Units ) Status LDH 07/04/2023 21:52:00 209 <=250 (U/L ) Final Performing Location [facility] - [address] [place] [address]
--- OUTSIDE RECORDS SUMMARY | 2023-09-18 21:37 | External Medical Summary ---
Author Name Unknown Address Unknown Organization K01:LABORATORY [facility] – [place] - [address] [facility] [address] Laboratory Report Ordering Provider Test Date Status WILMAN PRADO 07/03/2023 06:21:09 Final Observation Date Value Abnormality Reference (Units ) Status WBC, Total 07/03/2023 06:21:09 6.89 4.00-10.80 (K/uL) Final RBC 07/03/2023 06:21:09 3.51 4.50-5.25 (M/uL) Final Hemoglobin 07/03/2023 06:21:09 10.6 Below low normal 14.0-16.8 (g/dL) Final HCT 07/03/2023 06:21:09 31.5 Below low normal 40.0-48.4 (%) Final MCV 07/03/2023 06:21:09 89.7 82.0-99.5 (fL) Final MCH 07/03/2023 06:21:09 30.2 27.0-34.0 (pg) Final MCHC 07/03/2023 06:21:09 33.7 32.0-36.0 (g/dL) Final RDW 07/03/2023 06:21:09 12.3 11.5-15.5 (%) Final Platelets 07/03/2023 06:21:09 219 140-400 (K/uL) Final MPV 07/03/2023 06:21:09 9.9 6.6-11.1 (fL) Final Nucleated erythrocytes/100 leukocytes [Ratio] in Blood by Automated count 07/03/2023 06:21:09 0 <=0 (/100 WBCs) Final Performing Location [facility] - [address] [place] [address]
--- OUTSIDE RECORDS SUMMARY | 2023-09-18 21:37 | External Medical Summary ---
Author Name Unknown Address Unknown Organization K01:LAB[facility]ATORY [facility] - [address] [place] [address] Laboratory Report Ordering Provider Test Date Status TILA PETERSEN 07/03/2023 00:04:40 Final Observation Date Value Abnormality Reference (Units ) Status Phosphate 07/03/2023 00:04:40 4.1 2.5-4.8 (m g/dL) Final Performing Location LAB[facility] - [address] [place] [address]
--- OUTSIDE RECORDS SUMMARY | 2023-09-18 21:37 | External Medical Summary ---
Author Name Unknown Address Unknown Organization : Laboratory Report Ordering Provider Test Date Status CHINYERE RODRIGUES 07/04/2023 11:19:32 Final Observation Date Value Abnormality Reference (Units ) Status Glucose Point of Care 07/04/2023 11:19:32 95 70-120 (mg/dL) Final Performing Location
--- OUTSIDE RECORDS SUMMARY | 2023-09-18 21:37 | External Medical Summary ---
Author Name Unknown Address Unknown Organization K01:LAB[place]ATORY [facility] [place] [address] [place] [address] Laboratory Report Ordering Provider Test Date Status LESLEYTIMO 07/03/2023 22:53:00 Final Observation Date Value Abnormality Reference (Units ) Status Uric Acid 07/03/2023 22:53:00 2.5 Below low normal 3.4 -7.0 (mg/dL) Final Performing Location LABORATORY [facility] - [address] [place] [address]
--- OUTSIDE RECORDS SUMMARY | 2023-09-18 21:37 | External Medical Summary ---
Author Name Unknown Address Unknown Organization : Laboratory Report Ordering Provider Test Date Status CHINYERE RODRIGUES 07/02/2023 16:19:34 Final Observation Date Value Abnormality Reference (Units ) Status Glucose Point of Care 07/02/2023 16:19:34 175 Above high normal 70-120 (mg/dL) Final Performing Location
--- OUTSIDE RECORDS SUMMARY | 2023-09-18 21:37 | External Medical Summary ---
Author Name Unknown Address Unknown Organization K01:[place]ORY [facility] [place] [address] [place] [address] Laboratory Report Ordering Provider Test Date Status TIMO SUTTON 07/03/2023 13:35:56 Final Observation Date Value Abnormality Reference (Units ) Status BUN 07/03/2023 13:35:56 17 6-20 (mg/dL) Final Creatinine 07/03/2023 13:35:56 0.7 0.6-1.2 (mg/dL) Final Glomerular filtration rate/1.73 sq M.predicted [Volume Rate/Area] in Serum, Plasma or Blood by Creatinine-based formula (CKD-EPI) 07/03/2023 13:35:56 >90 >=60 (mL/min) Final eGFR is calculated based on the CKD-EPI 2020 equation Sodium 07/03/2023 13:35:56 139 135-146 (m mol/L) Final Potassium 07/03/2023 13:35:56 3.6 3.5-5.1 (m mol/L) Final Cl 07/03/2023 13:35:56 105 98-107 (mm ol/L) Final CO2 07/03/2023 13:35:56 24 22-32 (mmo l/L) Final Anion gap 07/03/2023 13:35:56 10 7-15 (mmol /L) Final Glucose 07/03/2023 13:35:56 120 70-120 (mg /dL) Final Calcium 07/03/2023 13:35:56 8.9 8.4-10.2 ( mg/dL) Final Performing Location LABORATORY [facility] [place] [address] [place] [address]
--- OUTSIDE RECORDS SUMMARY | 2023-09-18 21:37 | External Medical Summary ---
Author Name Unknown Address Unknown Organization K01:[facility] - [address] [place] [address] Laboratory Report Ordering Provider Test Date Status LESLEYTIMO 07/02/2023 14:25:13 Final Observation Date Value Abnormality Reference (Units ) Status Protein, CSF 07/02/2023 14:25:13 69 Above high normal 15-45 (mg/dL) Final Performing Location [facility] - [address] [place] [address]
--- OUTSIDE RECORDS SUMMARY | 2023-09-18 21:37 | External Medical Summary ---
Author Name Unknown Address Unknown Organization K01:[place] [facility] [place] [address] [address] Laboratory Report Ordering Provider Test Date Status WILMAN PRADO 07/04/2023 03:17:57 Final Observation Date Value Abnormality Reference (Units ) Status SYNC LEUKOCYTES IN BLOOD BY AUTOMATED COUNT 07/04/2023 03:17:57 4.48 4.00-10.80 (K/uL) Final Segs 07/04/2023 03:17:57 65.9 40.0-75.0 (%) Final Lymphs % 07/04/2023 03:17:57 20.1 18.0-42.0 (%) Final Monos 07/04/2023 03:17:57 9.8 1.0-11.0 (%) Final Eosinophils 07/04/2023 03:17:57 3.1 0.0-6.0 (%) Final Basos 07/04/2023 03:17:57 0.2 0.0-2.0 (%) Final Immature Granulocyte, Percent 07/04/2023 03:17:57 0.9 0.0-2.0 (%) Final Absolute Segs 07/04/2023 03:17:57 2.95 1.80-7.70 (K/uL) Final Lymphs, absolute 07/04/2023 03:17:57 0.90 Below low normal 1.00-4.80 (K/ul) Final Monos, Abs 07/04/2023 03:17:57 0.44 0.00-1.10 (K/uL) Final Eos, Abs 07/04/2023 03:17:57 0.14 0.00-0.70 (K/uL) Final Basos, Abs 07/04/2023 03:17:57 0.01 0.00-0.20 (K/uL) Final Immature Granulocytes, Number 07/04/2023 03:17:57 0.04 0.00-0.20 (K/uL) Final Performing Location [place] [facility] [place] [address] [facility] [address]
--- OUTSIDE RECORDS SUMMARY | 2023-09-18 21:37 | External Medical Summary ---
Author Name Unknown Address Unknown Organization : Laboratory Report Ordering Provider Test Date Status CHINYERE RODRIGUES 07/03/2023 11:19:07 Final Observation Date Value Abnormality Reference (Units ) Status Glucose Point of Care 07/03/2023 11:19:07 117 70-120 (mg/dL) Final Performing Location
--- OUTSIDE RECORDS SUMMARY | 2023-09-18 21:37 | External Medical Summary ---
Author Name Unknown Address Unknown Organization K01:LAB[facility]ATORY [facility] - [address] [place] [address] Laboratory Report Ordering Provider Test Date Status TILA PETERSEN 07/03/2023 00:04:40 Final Observation Date Value Abnormality Reference (Units ) Status LDH 07/03/2023 00:04:40 256 Above high normal <= 250 (U/L) Final Performing Location [facility] - [address] [place] [address]
--- OUTSIDE RECORDS SUMMARY | 2023-09-18 21:37 | External Medical Summary ---
Author Name Unknown Address Unknown Organization K01:LABORATORY [facility] [place] [address] [place] [address] Laboratory Report Ordering Provider Test Date Status TIMO SUTTON 07/04/2023 21:52:00 Final Observation Date Value Abnormality Reference (Units ) Status BUN 07/04/2023 21:52:00 20 6-20 (mg/dL) Final Creatinine 07/04/2023 21:52:00 1.1 0.6-1.2 (mg/dL) Final Glomerular filtration rate/1.73 sq M.predicted [Volume Rate/Area] in Serum, Plasma or Blood by Creatinine-based formula (CKD-EPI) 07/04/2023 21:52:00 90 >=60 (mL/min) Final eGFR is calculated based on the CKD-EPI 2020 equation Sodium 07/04/2023 21:52:00 139 135-146 (m mol/L) Final Potassium 07/04/2023 21:52:00 4.3 3.5-5.1 (m mol/L) Final Cl 07/04/2023 21:52:00 105 98-107 (mm ol/L) Final CO2 07/04/2023 21:52:00 21 Below low normal 22- 32 (mmol/L) Final Anion gap 07/04/2023 21:52:00 13 7-15 (mmol /L) Final Glucose 07/04/2023 21:52:00 113 70-120 (mg /dL) Final Calcium 07/04/2023 21:52:00 9.2 8.4-10.2 ( mg/dL) Final Performing Location LABORATORY [facility] [place] - [address] [place] [address]
--- OUTSIDE RECORDS SUMMARY | 2023-09-18 21:37 | External Medical Summary ---
Author Name Unknown Address Unknown Organization K01:LABORATORY [facility] [place] - [address] [place] [address] [place] [address] Laboratory Report Ordering Provider Test Date Status TIMO SUTTON 07/04/2023 13:26:28 Final Observation Date Value Abnormality Reference (Units ) Status BUN 07/04/2023 13:26:28 16 6-20 (mg/dL) Final Creatinine 07/04/2023 13:26:28 0.8 0.6-1.2 (mg/dL) Final Glomerular filtration rate/1.73 sq M.predicted [Volume Rate/Area] in Serum, Plasma or Blood by Creatinine-based formula (CKD-EPI) 07/04/2023 13:26:28 >90 >=60 (mL/min) Final eGFR is calculated based on the CKD-EPI 2020 equation Sodium 07/04/2023 13:26:28 141 135-146 (m mol/L) Final Potassium 07/04/2023 13:26:28 3.3 Below low normal 3.5 -5.1 (mmol/L) Final Cl 07/04/2023 13:26:28 109 Above high normal 98 -107 (mmol/L) Final CO2 07/04/2023 13:26:28 23 22-32 (mmo l/L) Final Anion gap 07/04/2023 13:26:28 9 7-15 (mmol /L) Final Glucose 07/04/2023 13:26:28 102 70-120 (mg /dL) Final Calcium 07/04/2023 13:26:28 7.9 Below low normal 8.4 -10.2 (mg/dL) Final Performing Location LABORATORY [facility] [place] - [address] [place] [address]
--- OUTSIDE RECORDS SUMMARY | 2023-09-18 21:37 | External Medical Summary ---
Author Name Unknown Address Unknown Organization K01:LAB[facility]ORY [facility] - [address] [place] [address] Laboratory Report Ordering Provider Test Date Status TIMO SUTTON 07/04/2023 13:26:28 Final Observation Date Value Abnormality Reference (Units ) Status LDH 07/04/2023 13:26:28 211 <=250 (U/L ) Final Performing Location LAB[facility] - [address] [place] [address]
--- OUTSIDE RECORDS SUMMARY | 2023-09-18 21:37 | External Medical Summary ---
Author Name Unknown Address Unknown Organization : Laboratory Report Ordering Provider Test Date Status CHINYERE RODRIGUES 07/02/2023 11:17:46 Final Observation Date Value Abnormality Reference (Units ) Status Glucose Point of Care 07/02/2023 11:17:46 106 70-120 (mg/dL) Final Performing Location
--- OUTSIDE RECORDS SUMMARY | 2023-09-18 21:37 | External Medical Summary ---
Author Name Unknown Address Unknown Organization K01:LAB[facility]ATORY [facility] - [address] [facility] [address] Laboratory Report Ordering Provider Test Date Status TIMO SUTTON 07/02/2023 14:25:13 Final Some reference ranges and ot her method performance specifications have not been established for this fluid. The test results must be integrated into the clinical context for interpretation. Observation Date Value Abnormality Reference (Units ) Status Neutrophils/100 leukocytes in Cerebral spinal fluid 07/02/2023 14:25:13 6 0-6 (%) Final Lymphocytes/100 leukocytes in Cerebral spinal fluid 07/02/2023 14:25:13 56 40-80 (%) Final Monocytes/100 leukocytes in Cerebral spinal fluid 07/02/2023 14:25:13 38 15-45 (%) Final Performing Location [facility]ORY [facility] - [address] [facility] [address]
--- OUTSIDE RECORDS SUMMARY | 2023-09-18 21:37 | External Medical Summary ---
Author Name Unknown Address Unknown Organization : Laboratory Report Ordering Provider Test Date Status CHINYERE RODRIGUES 07/04/2023 21:47:57 Final Observation Date Value Abnormality Reference (Units ) Status Glucose Point of Care 07/04/2023 21:47:57 115 70-120 (mg/dL) Final Performing Location
--- OUTSIDE RECORDS SUMMARY | 2023-09-18 21:37 | External Medical Summary ---
Author Name Unknown Address Unknown Organization K01:[place] [facility] [place] [address] [facility] [address] Laboratory Report Ordering Provider Test Date Status WILMAN PRADO 07/04/2023 03:17:57 Final Observation Date Value Abnormality Reference (Units ) Status WBC, Total 07/04/2023 03:17:57 4.48 4.00-10.80 (K/uL) Final RBC 07/04/2023 03:17:57 3.48 4.50-5.25 (M/uL) Final Hemoglobin 07/04/2023 03:17:57 10.4 Below low normal 14.0-16.8 (g/dL) Final HCT 07/04/2023 03:17:57 31.4 Below low normal 40.0-48.4 (%) Final MCV 07/04/2023 03:17:57 90.2 82.0-99.5 (fL) Final MCH 07/04/2023 03:17:57 29.9 27.0-34.0 (pg) Final MCHC 07/04/2023 03:17:57 33.1 32.0-36.0 (g/dL) Final RDW 07/04/2023 03:17:57 12.7 11.5-15.5 (%) Final Platelets 07/04/2023 03:17:57 214 140-400 (K/uL) Final MPV 07/04/2023 03:17:57 9.7 6.6-11.1 (fL) Final Nucleated erythrocytes/100 leukocytes [Ratio] in Blood by Automated count 07/04/2023 03:17:57 0 <=0 (/100 WBCs) Final Performing Location LABORATORY [facility] - [address] [place] [address]
--- OUTSIDE RECORDS SUMMARY | 2023-09-18 21:37 | External Medical Summary ---
Author Name Unknown Address Unknown Organization K01:LAB[facility]ORY [facility] - [address] [place] [address] Laboratory Report Ordering Provider Test Date Status TIMO SUTTON 07/03/2023 06:21:09 Final Observation Date Value Abnormality Reference (Units ) Status Phosphate 07/03/2023 06:21:09 3.8 2.5-4.8 (m g/dL) Final Performing Location [facility] - [address] [place] [address]
--- OUTSIDE RECORDS SUMMARY | 2023-09-18 21:37 | External Medical Summary ---
Author Name Unknown Address Unknown Organization : Laboratory Report Ordering Provider Test Date Status CHINYERE RODRIGUES 07/03/2023 21:23:22 Final Observation Date Value Abnormality Reference (Units ) Status Glucose Point of Care 07/03/2023 21:23:22 132 Above high normal 70-120 (mg/dL) Final Performing Location
--- OUTSIDE RECORDS SUMMARY | 2023-09-18 21:37 | External Medical Summary ---
Author Name Unknown Address Unknown Organization K01:LAB[facility]ATORY [facility] - [address] [place] [address] Laboratory Report Ordering Provider Test Date Status TIMO SUTTON 07/04/2023 13:26:28 Final Observation Date Value Abnormality Reference (Units ) Status Phosphate 07/04/2023 13:26:28 3.3 2.5-4.8 (m g/dL) Final Performing Location [facility] - [address] [place] [address]
--- OUTSIDE RECORDS SUMMARY | 2023-09-18 21:37 | External Medical Summary ---
Author Name Unknown Address Unknown Organization K01:LABORATORY [facility] [place] - [address] [facility] [address] Laboratory Report Ordering Provider Test Date Status WILMAN PRADO 07/03/2023 06:21:09 Final Observation Date Value Abnormality Reference (Units ) Status SYNC LEUKOCYTES IN BLOOD BY AUTOMATED COUNT 07/03/2023 06:21:09 6.89 4.00-10.80 (K/uL) Final Segs 07/03/2023 06:21:09 85.7 Above high normal 40.0-75.0 (%) Final Lymphs % 07/03/2023 06:21:09 4.2 Below low normal 18.0-42.0 (%) Final Monos 07/03/2023 06:21:09 9.4 1.0-11.0 (%) Final Eosinophils 07/03/2023 06:21:09 0.0 0.0-6.0 (%) Final Basos 07/03/2023 06:21:09 0.0 0.0-2.0 (%) Final Immature Granulocyte, Percent 07/03/2023 06:21:09 0.7 0.0-2.0 (%) Final Absolute Segs 07/03/2023 06:21:09 5.90 1.80-7.70 (K/uL) Final Lymphs, absolute 07/03/2023 06:21:09 0.29 Below low normal 1.00-4.80 (K/ul) Final Monos, Abs 07/03/2023 06:21:09 0.65 0.00-1.10 (K/uL) Final Eos, Abs 07/03/2023 06:21:09 0.00 0.00-0.70 (K/uL) Final Basos, Abs 07/03/2023 06:21:09 0.00 0.00-0.20 (K/uL) Final Immature Granulocytes, Number 07/03/2023 06:21:09 0.05 0.00-0.20 (K/uL) Final Performing Location LABORATORY [facility] [place] - [facility] [address] [facility] [address]
--- OUTSIDE RECORDS SUMMARY | 2023-09-18 21:37 | External Medical Summary ---
Author Name Unknown Address Unknown Organization K01:LABORATORY [facility] [place] [address] [place] [address] Laboratory Report Ordering Provider Test Date Status LEWISJONATHANTILA 07/03/2023 00:04:40 Final Observation Date Value Abnormality Reference (Units ) Status Uric Acid 07/03/2023 00:04:40 2.1 Below low normal 3.4 -7.0 (mg/dL) Final Performing Location LAB[facility]ORY [facility] [place] [address] [place] [address]
--- OUTSIDE RECORDS SUMMARY | 2023-09-18 21:38 | External Medical Summary ---
Author Name Unknown Address Unknown Organization [id number][facility] [address] [place] [address] Laboratory Report Ordering Provider Test Date Status JAMES LOPEZ 06/28/2023 09:05:00 Final Observation Date Value Abnormality Reference (Units ) Status Magnesium 06/28/2023 09:05:00 1.9 1.5-2.6 (m g/dL) Final Performing Location [facility] - [address] [place] [address]
--- OUTSIDE RECORDS SUMMARY | 2023-09-18 21:38 | External Medical Summary ---
Author Name Unknown Address Unknown Organization [id number]:[facility] [place] [address] [place] [address] Laboratory Report Ordering Provider Test Date Status MARA ASENCIO 06/29/2023 03:39:27 Final Observation Date Value Abnormality Reference (Units ) Status BUN 06/29/2023 03:39:27 10 6-20 (mg/dL) Final Creatinine 06/29/2023 03:39:27 0.6 0.6-1.2 (mg/dL) Final Glomerular filtration rate/1.73 sq M.predicted [Volume Rate/Area] in Serum, Plasma or Blood by Creatinine-based formula (CKD-EPI) 06/29/2023 03:39:27 >90 >=60 (mL/min) Final eGFR is calculated based on the CKD-EPI 2020 equation Sodium 06/29/2023 03:39:27 143 135-146 (m mol/L) Final Potassium 06/29/2023 03:39:27 3.1 Below low normal 3.5 -5.1 (mmol/L) Final Cl 06/29/2023 03:39:27 114 Above high normal 98 -107 (mmol/L) Final CO2 06/29/2023 03:39:27 21 Below low normal 22- 32 (mmol/L) Final Anion gap 06/29/2023 03:39:27 8 7-15 (mmol /L) Final Glucose 06/29/2023 03:39:27 102 70-120 (mg /dL) Final Calcium 06/29/2023 03:39:27 8.0 Below low normal 8.4 -10.2 (mg/dL) Final Performing Location [facility] [place] [address] [place] [address]
--- OUTSIDE RECORDS SUMMARY | 2023-09-18 21:38 | External Medical Summary ---
Author Name Unknown Address Unknown Organization [id number]:[place] [address] [facility] [address] Laboratory Report Ordering Provider Test Date Status WILMAN PRADO 06/30/2023 03:19:32 Final Observation Date Value Abnormality Reference (Units ) Status WBC, Total 06/30/2023 03:19:32 7.65 4.00-10.80 (K/uL) Final RBC 06/30/2023 03:19:32 3.74 4.50-5.25 (M/uL) Final Hemoglobin 06/30/2023 03:19:32 10.8 Below low normal 14.0-16.8 (g/dL) Final HCT 06/30/2023 03:19:32 33.6 Below low normal 40.0-48.4 (%) Final MCV 06/30/2023 03:19:32 89.8 82.0-99.5 (fL) Final MCH 06/30/2023 03:19:32 28.9 27.0-34.0 (pg) Final MCHC 06/30/2023 03:19:32 32.1 32.0-36.0 (g/dL) Final RDW 06/30/2023 03:19:32 12.7 11.5-15.5 (%) Final Platelets 06/30/2023 03:19:32 237 140-400 (K/uL) Final MPV 06/30/2023 03:19:32 10.1 6.6-11.1 (fL) Final Nucleated erythrocytes/100 leukocytes [Ratio] in Blood by Automated count 06/30/2023 03:19:32 0 <=0 (/100 WBCs) Final Performing Location [facility] - [address] [place] [address]
--- OUTSIDE RECORDS SUMMARY | 2023-09-18 21:38 | External Medical Summary ---
Author Name Unknown Address Unknown Organization : Laboratory Report Ordering Provider Test Date Status CHINYERE RODRIGUES 07/01/2023 21:34:27 Final Observation Date Value Abnormality Reference (Units ) Status Glucose Point of Care 07/01/2023 21:34:27 129 Above high normal 70-120 (mg/dL) Final Performing Location
--- OUTSIDE RECORDS SUMMARY | 2023-09-18 21:38 | External Medical Summary ---
Author Name Unknown Address Unknown Organization [id number]:[facility] [place] [address] [place] [address] Laboratory Report Ordering Provider Test Date Status WIMLAN PRADO 07/01/2023 03:27:44 Final Observation Date Value Abnormality Reference (Units ) Status Uric Acid 07/01/2023 03:27:44 2.1 Below low normal 3.4 -7.0 (mg/dL) Final Performing Location [facility] - [address] [place] [address]
--- OUTSIDE RECORDS SUMMARY | 2023-09-18 21:38 | External Medical Summary ---
Author Name Unknown Address Unknown Organization : Laboratory Report Ordering Provider Test Date Status CHINYERE RODRIGUES 07/01/2023 07:34:25 Final Observation Date Value Abnormality Reference (Units ) Status Glucose Point of Care 07/01/2023 07:34:25 83 70-120 (mg/dL) Final Performing Location
--- OUTSIDE RECORDS SUMMARY | 2023-09-18 21:38 | External Medical Summary ---
Author Name Unknown Address Unknown Organization [id number]:[facility] [place] [address] [facility] [address] Laboratory Report Ordering Provider Test Date Status WILMAN PRADO 07/01/2023 03:27:44 Final Observation Date Value Abnormality Reference (Units ) Status SYNC LEUKOCYTES IN BLOOD BY AUTOMATED COUNT 07/01/2023 03:27:44 7.05 4.00-10.80 (K/uL) Final Segs 07/01/2023 03:27:44 65.9 40.0-75.0 (%) Final Lymphs % 07/01/2023 03:27:44 21.6 18.0-42.0 (%) Final Monos 07/01/2023 03:27:44 11.9 Above high normal 1.0-11.0 (%) Final Eosinophils 07/01/2023 03:27:44 0.0 0.0-6.0 (%) Final Basos 07/01/2023 03:27:44 0.0 0.0-2.0 (%) Final Immature Granulocyte, Percent 07/01/2023 03:27:44 0.6 0.0-2.0 (%) Final Absolute Segs 07/01/2023 03:27:44 4.65 1.80-7.70 (K/uL) Final Lymphs, absolute 07/01/2023 03:27:44 1.52 1.00-4.80 (K/ul) Final Monos, Abs 07/01/2023 03:27:44 0.84 0.00-1.10 (K/uL) Final Eos, Abs 07/01/2023 03:27:44 0.00 0.00-0.70 (K/uL) Final Basos, Abs 07/01/2023 03:27:44 0.00 0.00-0.20 (K/uL) Final Immature Granulocytes, Number 07/01/2023 03:27:44 0.04 0.00-0.20 (K/uL) Final Performing Location [facility]ATORY [facility] [place] [address] [facility] [address]
--- OUTSIDE RECORDS SUMMARY | 2023-09-18 21:38 | External Medical Summary ---
Author Name Unknown Address Unknown Organization [id number]:[facility] [place] [address] [address] Laboratory Report Ordering Provider Test Date Status WILMAN PRADO 07/02/2023 03:27:04 Final Observation Date Value Abnormality Reference (Units ) Status SYNC LEUKOCYTES IN BLOOD BY AUTOMATED COUNT 07/02/2023 03:27:04 7.05 4.00-10.80 (K/uL) Final Segs 07/02/2023 03:27:04 62.8 40.0-75.0 (%) Final Lymphs % 07/02/2023 03:27:04 22.4 18.0-42.0 (%) Final Monos 07/02/2023 03:27:04 14.3 Above high normal 1.0-11.0 (%) Final Eosinophils 07/02/2023 03:27:04 0.1 0.0-6.0 (%) Final Basos 07/02/2023 03:27:04 0.0 0.0-2.0 (%) Final Immature Granulocyte, Percent 07/02/2023 03:27:04 0.4 0.0-2.0 (%) Final Absolute Segs 07/02/2023 03:27:04 4.42 1.80-7.70 (K/uL) Final Lymphs, absolute 07/02/2023 03:27:04 1.58 1.00-4.80 (K/ul) Final Monos, Abs 07/02/2023 03:27:04 1.01 0.00-1.10 (K/uL) Final Eos, Abs 07/02/2023 03:27:04 0.01 0.00-0.70 (K/uL) Final Basos, Abs 07/02/2023 03:27:04 0.00 0.00-0.20 (K/uL) Final Immature Granulocytes, Number 07/02/2023 03:27:04 0.03 0.00-0.20 (K/uL) Final Performing Location [facility] [place] [address] [facility] [address]
--- OUTSIDE RECORDS SUMMARY | 2023-09-18 21:38 | External Medical Summary ---
Author Name Unknown Address Unknown Organization : Laboratory Report Ordering Provider Test Date Status CHINYERE RDORIGUES 06/30/2023 16:32:01 Final Observation Date Value Abnormality Reference (Units ) Status Glucose Point of Care 06/30/2023 16:32:01 140 Above high normal 70-120 (mg/dL) Final Performing Location
--- OUTSIDE RECORDS SUMMARY | 2023-09-18 21:38 | External Medical Summary ---
Author Name Unknown Address Unknown Organization [id number]:[facility] [place] [address] [place] [address] Laboratory Report Ordering Provider Test Date Status CHANELL FIORE 06/29/2023 03:39:27 Final Observation Date Value Abnormality Reference (Units ) Status Albumin 06/29/2023 03:39:27 3.1 Below low normal 3.8-5.0 (g/dL) Final AST (Aspartate aminotransferase) 06/29/2023 03:39:27 16 10-50 (U/L) Final Alk Phos 06/29/2023 03:39:27 57 35-130 (U/L) Final ALT (Alanine aminotransferase) 06/29/2023 03:39:27 31 10-50 (U/L) Final Bilirubin, Total 06/29/2023 03:39:27 0.2 <=1.2 (mg/dL) Final Bilirubin, Direct 06/29/2023 03:39:27 <0.2 0.0-0.3 (mg/dL) Final Protein 06/29/2023 03:39:27 5.3 Below low normal 6.0-8.3 (g/dL) Final Performing Location [facility] [place] [address] [place] [address]
--- OUTSIDE RECORDS SUMMARY | 2023-09-18 21:38 | External Medical Summary ---
Author Name Unknown Address Unknown Organization K01:[facility] [place] [address] [place] [address] Laboratory Report Ordering Provider Test Date Status CHANELL FIORE 06/30/2023 03:19:32 Final Observation Date Value Abnormality Reference (Units ) Status Albumin 06/30/2023 03:19:32 3.7 Below low normal 3.8-5.0 (g/dL) Final AST (Aspartate aminotransferase) 06/30/2023 03:19:32 21 10-50 (U/L) Final Alk Phos 06/30/2023 03:19:32 65 35-130 (U/L) Final ALT (Alanine aminotransferase) 06/30/2023 03:19:32 45 10-50 (U/L) Final Bilirubin, Total 06/30/2023 03:19:32 0.2 <=1.2 (mg/dL) Final Bilirubin, Direct 06/30/2023 03:19:32 <0.2 0.0-0.3 (mg/dL) Final Protein 06/30/2023 03:19:32 6.4 6.0-8.3 (g/dL) Final Performing Location [facility] [place] - [address] [place] [address]
--- OUTSIDE RECORDS SUMMARY | 2023-09-18 21:38 | External Medical Summary ---
Author Name Unknown Address Unknown Organization K01:[facility] - [address] [place] [address] Laboratory Report Ordering Provider Test Date Status CHNAELL FIORE 06/30/2023 03:19:32 Final Observation Date Value Abnormality Reference (Units ) Status LDH 06/30/2023 03:19:32 228 <=250 (U/L ) Final Performing Location [facility] - [address] [place] [address]
--- OUTSIDE RECORDS SUMMARY | 2023-09-18 21:38 | External Medical Summary ---
Author Name Unknown Address Unknown Organization K01:[facility] [place] [address] [place] [address] Laboratory Report Ordering Provider Test Date Status MACARENACHANELL 06/28/2023 18:18:00 Final Observation Date Value Abnormality Reference (Units ) Status Uric Acid 06/28/2023 18:18:00 1.8 Below low normal 3.4 -7.0 (mg/dL) Final Performing Location [facility] [place] [address] [place] [address]
--- OUTSIDE RECORDS SUMMARY | 2023-09-18 21:38 | External Medical Summary ---
Author Name Unknown Address Unknown Organization K01:[facility] - [address] [place] [address] Laboratory Report Ordering Provider Test Date Status CHANELL FIORE 06/29/2023 03:39:27 Final Observation Date Value Abnormality Reference (Units ) Status LDH 06/29/2023 03:39:27 225 <=250 (U/L ) Final Performing Location [facility] - [address] [place] [address]
--- OUTSIDE RECORDS SUMMARY | 2023-09-18 21:38 | External Medical Summary ---
Author Name Unknown Address Unknown Organization : Laboratory Report Ordering Provider Test Date Status MOLLY FLORES 06/28/2023 21:32:02 Final Observation Date Value Abnormality Reference (Units ) Status Glucose Point of Care 06/28/2023 21:32:02 143 Above high normal 70-120 (mg/dL) Final Performing Location
--- OUTSIDE RECORDS SUMMARY | 2023-09-18 21:38 | External Medical Summary ---
Author Name Unknown Address Unknown Organization : Laboratory Report Ordering Provider Test Date Status CHINYERE RODRIGUES 06/30/2023 06:30:07 Final Observation Date Value Abnormality Reference (Units ) Status Glucose Point of Care 06/30/2023 06:30:07 101 70-120 (mg/dL) Final Performing Location
--- OUTSIDE RECORDS SUMMARY | 2023-09-18 21:38 | External Medical Summary ---
Author Name Unknown Address Unknown Organization K01:[facility] - [address] [place] [address] Laboratory Report Ordering Provider Test Date Status MARA ASENCIO 07/01/2023 03:27:44 Final Observation Date Value Abnormality Reference (Units ) Status Phosphate 07/01/2023 03:27:44 3.7 2.5-4.8 (m g/dL) Final Performing Location [facility] - [address] [place] [address]
--- OUTSIDE RECORDS SUMMARY | 2023-09-18 21:38 | External Medical Summary ---
Author Name Unknown Address Unknown Organization K01:[facility] - [address] [place] [address] Laboratory Report Ordering Provider Test Date Status WILMAN PRADO 06/30/2023 03:19:32 Final Observation Date Value Abnormality Reference (Units ) Status Phosphate 06/30/2023 03:19:32 3.3 2.5-4.8 (m g/dL) Final Performing Location [facility] - [address] [place] [address]
--- OUTSIDE RECORDS SUMMARY | 2023-09-18 21:38 | External Medical Summary ---
Author Name Unknown Address Unknown Organization K01:[facility] [place] [address] [facility] [address] Laboratory Report Ordering Provider Test Date Status WILMAN PRADO 06/30/2023 03:19:32 Final Observation Date Value Abnormality Reference (Units ) Status SYNC LEUKOCYTES IN BLOOD BY AUTOMATED COUNT 06/30/2023 03:19:32 7.65 4.00-10.80 (K/uL) Final Segs 06/30/2023 03:19:32 66.7 40.0-75.0 (%) Final Lymphs % 06/30/2023 03:19:32 19.7 18.0-42.0 (%) Final Monos 06/30/2023 03:19:32 12.9 Above high normal 1.0-11.0 (%) Final Eosinophils 06/30/2023 03:19:32 0.1 0.0-6.0 (%) Final Basos 06/30/2023 03:19:32 0.1 0.0-2.0 (%) Final Immature Granulocyte, Percent 06/30/2023 03:19:32 0.5 0.0-2.0 (%) Final Absolute Segs 06/30/2023 03:19:32 5.09 1.80-7.70 (K/uL) Final Lymphs, absolute 06/30/2023 03:19:32 1.51 1.00-4.80 (K/ul) Final Monos, Abs 06/30/2023 03:19:32 0.99 0.00-1.10 (K/uL) Final Eos, Abs 06/30/2023 03:19:32 0.01 0.00-0.70 (K/uL) Final Basos, Abs 06/30/2023 03:19:32 0.01 0.00-0.20 (K/uL) Final Immature Granulocytes, Number 06/30/2023 03:19:32 0.04 0.00-0.20 (K/uL) Final Performing Location LAB[facility]ATORY [facility] [place] - [address] [facility] [address]
--- OUTSIDE RECORDS SUMMARY | 2023-09-18 21:38 | External Medical Summary ---
Author Name Unknown Address Unknown Organization : Laboratory Report Ordering Provider Test Date Status CHINYERE RODRIGUES 07/01/2023 16:08:56 Final Observation Date Value Abnormality Reference (Units ) Status Glucose Point of Care 07/01/2023 16:08:56 181 Above high normal 70-120 (mg/dL) Final Performing Location
--- OUTSIDE RECORDS SUMMARY | 2023-09-18 21:38 | External Medical Summary ---
Author Name Unknown Address Unknown Organization K01:[facility] - [address] [place] [address] Laboratory Report Ordering Provider Test Date Status MARA ASENCIO 06/28/2023 09:05:00 Final Observation Date Value Abnormality Reference (Units ) Status Phosphate 06/28/2023 09:05:00 3.2 2.5-4.8 (m g/dL) Final Performing Location [facility] - [address] [place] [address]
--- OUTSIDE RECORDS SUMMARY | 2023-09-18 21:38 | External Medical Summary ---
Author Name Unknown Address Unknown Organization : Laboratory Report Ordering Provider Test Date Status MOLLY FLORES 06/28/2023 16:20:11 Final Observation Date Value Abnormality Reference (Units ) Status Glucose Point of Care 06/28/2023 16:20:11 168 Above high normal 70-120 (mg/dL) Final Performing Location
--- OUTSIDE RECORDS SUMMARY | 2023-09-18 21:38 | External Medical Summary ---
Author Name Unknown Address Unknown Organization K01:LABORATORY [facility] [place] [address] [place] [address] Laboratory Report Ordering Provider Test Date Status MARA ASENCIO 06/28/2023 18:18:00 Final Observation Date Value Abnormality Reference (Units ) Status BUN 06/28/2023 18:18:00 12 6-20 (mg/dL) Final Creatinine 06/28/2023 18:18:00 0.7 0.6-1.2 (mg/dL) Final Glomerular filtration rate/1.73 sq M.predicted [Volume Rate/Area] in Serum, Plasma or Blood by Creatinine-based formula (CKD-EPI) 06/28/2023 18:18:00 >90 >=60 (mL/min) Final eGFR is calculated based on the CKD-EPI 2020 equation Sodium 06/28/2023 18:18:00 138 135-146 (m mol/L) Final Potassium 06/28/2023 18:18:00 3.9 3.5-5.1 (m mol/L) Final Cl 06/28/2023 18:18:00 107 98-107 (mm ol/L) Final CO2 06/28/2023 18:18:00 22 22-32 (mmo l/L) Final Anion gap 06/28/2023 18:18:00 9 7-15 (mmol /L) Final Glucose 06/28/2023 18:18:00 158 Above high normal 70 -120 (mg/dL) Final Calcium 06/28/2023 18:18:00 8.8 8.4-10.2 ( mg/dL) Final Performing Location LAB[facility]ORY [facility] [place] [address] [place] [address]
--- OUTSIDE RECORDS SUMMARY | 2023-09-18 21:38 | External Medical Summary ---
Author Name Unknown Address Unknown Organization : Laboratory Report Ordering Provider Test Date Status MOLLY FLORES 06/29/2023 02:25:39 Final Observation Date Value Abnormality Reference (Units ) Status Glucose Point of Care 06/29/2023 02:25:39 104 70-120 (mg/dL) Final Performing Location
--- OUTSIDE RECORDS SUMMARY | 2023-09-18 21:38 | External Medical Summary ---
Author Name Unknown Address Unknown Organization : Laboratory Report Ordering Provider Test Date Status CHINYERE RODRIGUES 06/30/2023 21:59:53 Final Observation Date Value Abnormality Reference (Units ) Status Glucose Point of Care 06/30/2023 21:59:53 124 Above high normal 70-120 (mg/dL) Final Performing Location
--- OUTSIDE RECORDS SUMMARY | 2023-09-18 21:38 | External Medical Summary ---
Author Name Unknown Address Unknown Organization K01:LABORATORY [facility] [place] - [address] [place] [address] Laboratory Report Ordering Provider Test Date Status WILMAN PRADO 06/30/2023 03:19:32 Final Observation Date Value Abnormality Reference (Units ) Status BUN 06/30/2023 03:19:32 12 6-20 (mg/dL) Final Creatinine 06/30/2023 03:19:32 0.7 0.6-1.2 (mg/dL) Final Glomerular filtration rate/1.73 sq M.predicted [Volume Rate/Area] in Serum, Plasma or Blood by Creatinine-based formula (CKD-EPI) 06/30/2023 03:19:32 >90 >=60 (mL/min) Final eGFR is calculated based on the CKD-EPI 2020 equation Sodium 06/30/2023 03:19:32 139 135-146 (m mol/L) Final Potassium 06/30/2023 03:19:32 3.7 3.5-5.1 (m mol/L) Final Cl 06/30/2023 03:19:32 108 Above high normal 98 -107 (mmol/L) Final CO2 06/30/2023 03:19:32 23 22-32 (mmo l/L) Final Anion gap 06/30/2023 03:19:32 8 7-15 (mmol /L) Final Glucose 06/30/2023 03:19:32 99 70-120 (mg /dL) Final Calcium 06/30/2023 03:19:32 9.1 8.4-10.2 ( mg/dL) Final Performing Location LABORATORY [facility] [place] - [address] [place] [address]
--- OUTSIDE RECORDS SUMMARY | 2023-09-18 21:38 | External Medical Summary ---
Author Name Unknown Address Unknown Organization : Laboratory Report Ordering Provider Test Date Status MOLLY FLORES 06/29/2023 06:41:44 Final Observation Date Value Abnormality Reference (Units ) Status Glucose Point of Care 06/29/2023 06:41:44 107 70-120 (mg/dL) Final Performing Location
--- OUTSIDE RECORDS SUMMARY | 2023-09-18 21:38 | External Medical Summary ---
Author Name Unknown Address Unknown Organization K01:[facility] - [address] [place] [address] Laboratory Report Ordering Provider Test Date Status JAMES LOPEZ 06/29/2023 03:39:27 Final Observation Date Value Abnormality Reference (Units ) Status Magnesium 06/29/2023 03:39:27 1.6 1.5-2.6 (m g/dL) Final Performing Location [facility] - [address] [place] [address]
--- OUTSIDE RECORDS SUMMARY | 2023-09-18 21:38 | External Medical Summary ---
Author Name Unknown Address Unknown Organization K01:[facility] - [address] [place] [address] Laboratory Report Ordering Provider Test Date Status JAMES LOPEZ 06/30/2023 03:19:32 Final Observation Date Value Abnormality Reference (Units ) Status Magnesium 06/30/2023 03:19:32 2.2 1.5-2.6 (m g/dL) Final Performing Location [facility] - [address] [place] [address]
--- OUTSIDE RECORDS SUMMARY | 2023-09-18 21:38 | External Medical Summary ---
Author Name Unknown Address Unknown Organization K01:LABORATORY [facility] [place] - [address] [place] [address] [place] [address] Laboratory Report Ordering Provider Test Date Status WILMAN PRADO 06/28/2023 09:05:00 Final Observation Date Value Abnormality Reference (Units ) Status WBC, Total 06/28/2023 09:05:00 9.99 4.00-10.80 (K/uL) Final RBC 06/28/2023 09:05:00 3.81 4.50-5.25 (M/uL) Final Hemoglobin 06/28/2023 09:05:00 11.4 Below low normal 14.0-16.8 (g/dL) Final HCT 06/28/2023 09:05:00 34.5 Below low normal 40.0-48.4 (%) Final MCV 06/28/2023 09:05:00 90.6 82.0-99.5 (fL) Final MCH 06/28/2023 09:05:00 29.9 27.0-34.0 (pg) Final MCHC 06/28/2023 09:05:00 33.0 32.0-36.0 (g/dL) Final RDW 06/28/2023 09:05:00 12.7 11.5-15.5 (%) Final Platelets 06/28/2023 09:05:00 237 140-400 (K/uL) Final MPV 06/28/2023 09:05:00 10.1 6.6-11.1 (fL) Final Nucleated erythrocytes/100 leukocytes [Ratio] in Blood by Automated count 06/28/2023 09:05:00 0 <=0 (/100 WBCs) Final Performing Location LABORATORY [facility] - [address] [place] [address]
--- OUTSIDE RECORDS SUMMARY | 2023-09-18 21:38 | External Medical Summary ---
Author Name Unknown Address Unknown Organization : Laboratory Report Ordering Provider Test Date Status CHINYERE RODRIGUES 06/30/2023 10:40:26 Final Observation Date Value Abnormality Reference (Units ) Status Glucose Point of Care 06/30/2023 10:40:26 97 70-120 (mg/dL) Final Performing Location
--- OUTSIDE RECORDS SUMMARY | 2023-09-18 21:38 | External Medical Summary ---
Author Name Unknown Address Unknown Organization K01:[facility]ORY [facility] [place] [address] [place] [address] Laboratory Report Ordering Provider Test Date Status CHANELL FIORE 07/01/2023 03:27:44 Final Observation Date Value Abnormality Reference (Units ) Status Uric Acid 07/01/2023 03:27:44 2.1 Below low normal 3.4 -7.0 (mg/dL) Final Performing Location [facility] [place] [address] [place] [address]
--- OUTSIDE RECORDS SUMMARY | 2023-09-18 21:38 | External Medical Summary ---
Author Name Unknown Address Unknown Organization K01:[facility]ORY [facility] [place] [address] [facility] [address] Laboratory Report Ordering Provider Test Date Status WILMAN PRADO 07/02/2023 03:27:04 Final Observation Date Value Abnormality Reference (Units ) Status WBC, Total 07/02/2023 03:27:04 7.05 4.00-10.80 (K/uL) Final RBC 07/02/2023 03:27:04 3.55 4.50-5.25 (M/uL) Final Hemoglobin 07/02/2023 03:27:04 10.4 Below low normal 14.0-16.8 (g/dL) Final HCT 07/02/2023 03:27:04 31.4 Below low normal 40.0-48.4 (%) Final MCV 07/02/2023 03:27:04 88.5 82.0-99.5 (fL) Final MCH 07/02/2023 03:27:04 29.3 27.0-34.0 (pg) Final MCHC 07/02/2023 03:27:04 33.1 32.0-36.0 (g/dL) Final RDW 07/02/2023 03:27:04 12.1 11.5-15.5 (%) Final Platelets 07/02/2023 03:27:04 237 140-400 (K/uL) Final MPV 07/02/2023 03:27:04 9.9 6.6-11.1 (fL) Final Nucleated erythrocytes/100 leukocytes [Ratio] in Blood by Automated count 07/02/2023 03:27:04 0 <=0 (/100 WBCs) Final Performing Location [facility] - [address] [place] [address]
--- OUTSIDE RECORDS SUMMARY | 2023-09-18 21:38 | External Medical Summary ---
Author Name Unknown Address Unknown Organization K01:[facility] - [address] [place] [address] Laboratory Report Ordering Provider Test Date Status CHANELL FIORE 06/28/2023 09:05:00 Final Observation Date Value Abnormality Reference (Units ) Status LDH 06/28/2023 09:05:00 395 Above high normal <= 250 (U/L) Final Performing Location [facility] - [address] [place] [address]
--- OUTSIDE RECORDS SUMMARY | 2023-09-18 21:38 | External Medical Summary ---
Author Name Unknown Address Unknown Organization : Laboratory Report Ordering Provider Test Date Status MOLLY FLORES 06/28/2023 11:29:37 Final Observation Date Value Abnormality Reference (Units ) Status Glucose Point of Care 06/28/2023 11:29:37 135 Above high normal 70-120 (mg/dL) Final Performing Location
--- OUTSIDE RECORDS SUMMARY | 2023-09-18 21:38 | External Medical Summary ---
Author Name Unknown Address Unknown Organization K01:[facility] [place] [address] [place] [id number] Laboratory Report Ordering Provider Test Date Status CHANELL FIORE 06/29/2023 03:39:27 Final Observation Date Value Abnormality Reference (Units ) Status Uric Acid 06/29/2023 03:39:27 1.6 Below low normal 3.4 -7.0 (mg/dL) Final Performing Location [facility] [place] [address] [place] [id number]
--- OUTSIDE RECORDS SUMMARY | 2023-09-18 21:38 | External Medical Summary ---
Author Name Unknown Address Unknown Organization K01:LAB[facility]ORY [facility] [place] [address] [address] Laboratory Report Ordering Provider Test Date Status CHANELL FIORE 06/28/2023 09:05:00 Final Observation Date Value Abnormality Reference (Units ) Status Albumin 06/28/2023 09:05:00 4.1 3.8-5.0 (g/dL) Final AST (Aspartate aminotransferase) 06/28/2023 09:05:00 27 10-50 (U/L) Final Alk Phos 06/28/2023 09:05:00 73 35-130 (U/L) Final ALT (Alanine aminotransferase) 06/28/2023 09:05:00 44 10-50 (U/L) Final Bilirubin, Total 06/28/2023 09:05:00 0.2 <=1.2 (mg/dL) Final Bilirubin, Direct 06/28/2023 09:05:00 <0.2 0.0-0.3 (mg/dL) Final Protein 06/28/2023 09:05:00 6.9 6.0-8.3 (g/dL) Final Performing Location LAB[facility]ORY [facility] [place] [address] [address]
--- OUTSIDE RECORDS SUMMARY | 2023-09-18 21:38 | External Medical Summary ---
Author Name Unknown Address Unknown Organization : Laboratory Report Ordering Provider Test Date Status CHINYERE RODRIGUES 07/01/2023 11:14:29 Final Observation Date Value Abnormality Reference (Units ) Status Glucose Point of Care 07/01/2023 11:14:29 123 Above high normal 70-120 (mg/dL) Final Performing Location
--- OUTSIDE RECORDS SUMMARY | 2023-09-18 21:38 | External Medical Summary ---
Author Name Unknown Address Unknown Organization [id number]:[facility] - [address] [place] [address] Laboratory Report Ordering Provider Test Date Status MARA ASENCIO 06/29/2023 03:39:27 Final Observation Date Value Abnormality Reference (Units ) Status Phosphate 06/29/2023 03:39:27 2.9 2.5-4.8 (m g/dL) Final Performing Location [facility] - [address] [place] [address]
--- OUTSIDE RECORDS SUMMARY | 2023-09-18 21:38 | External Medical Summary ---
Author Name Unknown Address Unknown Organization [id number]:[facility] - [address] [place] [address] Laboratory Report Ordering Provider Test Date Status JAMES LOPEZ 07/02/2023 03:27:04 Final Observation Date Value Abnormality Reference (Units ) Status Magnesium 07/02/2023 03:27:04 2.2 1.5-2.6 (m g/dL) Final Performing Location [facility] - [address] [place] [address]
--- OUTSIDE RECORDS SUMMARY | 2023-09-18 21:38 | External Medical Summary ---
Author Name Unknown Address Unknown Organization [id number]:LABORATORY [facility] [place] - [address] [place] [address] Laboratory Report Ordering Provider Test Date Status WILMAN PRADO 06/30/2023 03:19:32 Final Observation Date Value Abnormality Reference (Units ) Status Uric Acid 06/30/2023 03:19:32 1.9 Below low normal 3.4 -7.0 (mg/dL) Final Performing Location LABORATORY [facility] - [address] [place] [address]
--- OUTSIDE RECORDS SUMMARY | 2023-09-18 21:38 | External Medical Summary ---
Author Name Unknown Address Unknown Organization : Laboratory Report Ordering Provider Test Date Status CHINYERE RODRIGUES 06/29/2023 16:21:58 Final Observation Date Value Abnormality Reference (Units ) Status Glucose Point of Care 06/29/2023 16:21:58 135 Above high normal 70-120 (mg/dL) Final Performing Location
--- OUTSIDE RECORDS SUMMARY | 2023-09-18 21:38 | External Medical Summary ---
Author Name Unknown Address Unknown Organization : Laboratory Report Ordering Provider Test Date Status CHINYERE RODRIGUES 06/29/2023 10:50:17 Final Observation Date Value Abnormality Reference (Units ) Status Glucose Point of Care 06/29/2023 10:50:17 120 70-120 (mg/dL) Final Performing Location
--- OUTSIDE RECORDS SUMMARY | 2023-09-18 21:38 | External Medical Summary ---
Author Name Unknown Address Unknown Organization [id number]:[place] [place] [address] [facility] [address] Laboratory Report Ordering Provider Test Date Status WILMAN PRADO 07/01/2023 03:27:44 Final Observation Date Value Abnormality Reference (Units ) Status WBC, Total 07/01/2023 03:27:44 7.05 4.00-10.80 (K/uL) Final RBC 07/01/2023 03:27:44 3.73 4.50-5.25 (M/uL) Final Hemoglobin 07/01/2023 03:27:44 11.2 Below low normal 14.0-16.8 (g/dL) Final HCT 07/01/2023 03:27:44 33.3 Below low normal 40.0-48.4 (%) Final MCV 07/01/2023 03:27:44 89.3 82.0-99.5 (fL) Final MCH 07/01/2023 03:27:44 30.0 27.0-34.0 (pg) Final MCHC 07/01/2023 03:27:44 33.6 32.0-36.0 (g/dL) Final RDW 07/01/2023 03:27:44 12.5 11.5-15.5 (%) Final Platelets 07/01/2023 03:27:44 241 140-400 (K/uL) Final MPV 07/01/2023 03:27:44 10.0 6.6-11.1 (fL) Final Nucleated erythrocytes/100 leukocytes [Ratio] in Blood by Automated count 07/01/2023 03:27:44 0 <=0 (/100 WBCs) Final Performing Location [facility] - [address] [place] [address]
--- OUTSIDE RECORDS SUMMARY | 2023-09-18 21:38 | External Medical Summary ---
Author Name Unknown Address Unknown Organization K01:[place] [facility] [place] [address] [facility] [facility] [address] Laboratory Report Ordering Provider Test Date Status WILMAN PRADO 06/29/2023 03:39:27 Final Observation Date Value Abnormality Reference (Units ) Status SYNC LEUKOCYTES IN BLOOD BY AUTOMATED COUNT 06/29/2023 03:39:27 7.44 4.00-10.80 (K/uL) Final Segs 06/29/2023 03:39:27 64.3 40.0-75.0 (%) Final Lymphs % 06/29/2023 03:39:27 21.2 18.0-42.0 (%) Final Monos 06/29/2023 03:39:27 14.0 Above high normal 1.0-11.0 (%) Final Eosinophils 06/29/2023 03:39:27 0.1 0.0-6.0 (%) Final Basos 06/29/2023 03:39:27 0.1 0.0-2.0 (%) Final Immature Granulocyte, Percent 06/29/2023 03:39:27 0.3 0.0-2.0 (%) Final Absolute Segs 06/29/2023 03:39:27 4.78 1.80-7.70 (K/uL) Final Lymphs, absolute 06/29/2023 03:39:27 1.58 1.00-4.80 (K/ul) Final Monos, Abs 06/29/2023 03:39:27 1.04 0.00-1.10 (K/uL) Final Eos, Abs 06/29/2023 03:39:27 0.01 0.00-0.70 (K/uL) Final Basos, Abs 06/29/2023 03:39:27 0.01 0.00-0.20 (K/uL) Final Immature Granulocytes, Number 06/29/2023 03:39:27 0.02 0.00-0.20 (K/uL) Final Performing Location [facility] [facility] [place] [address] [facility] [address]
--- OUTSIDE RECORDS SUMMARY | 2023-09-18 21:38 | External Medical Summary ---
Author Name Unknown Address Unknown Organization : Laboratory Report Ordering Provider Test Date Status CHINYERE RODRIGUES 06/29/2023 21:13:39 Final Observation Date Value Abnormality Reference (Units ) Status Glucose Point of Care 06/29/2023 21:13:39 117 70-120 (mg/dL) Final Performing Location
--- OUTSIDE RECORDS SUMMARY | 2023-09-18 21:38 | External Medical Summary ---
Author Name Unknown Address Unknown Organization K01:[facility]ATORY [facility] [place] [address] [facility] [address] Laboratory Report Ordering Provider Test Date Status MARA ASENCIO 07/01/2023 03:27:44 Final Observation Date Value Abnormality Reference (Units ) Status BUN 07/01/2023 03:27:44 15 6-20 (mg/dL) Final Creatinine 07/01/2023 03:27:44 0.7 0.6-1.2 (mg/dL) Final Glomerular filtration rate/1.73 sq M.predicted [Volume Rate/Area] in Serum, Plasma or Blood by Creatinine-based formula (CKD-EPI) 07/01/2023 03:27:44 >90 >=60 (mL/min) Final eGFR is calculated based on the CKD-EPI 2020 equation Sodium 07/01/2023 03:27:44 140 135-146 (m mol/L) Final Potassium 07/01/2023 03:27:44 3.6 3.5-5.1 (m mol/L) Final Cl 07/01/2023 03:27:44 106 98-107 (mm ol/L) Final CO2 07/01/2023 03:27:44 24 22-32 (mmo l/L) Final Anion gap 07/01/2023 03:27:44 10 7-15 (mmol /L) Final Glucose 07/01/2023 03:27:44 112 70-120 (mg /dL) Final Calcium 07/01/2023 03:27:44 9.4 8.4-10.2 ( mg/dL) Final Performing Location LAB[facility]ATORY [facility] [place] - [address] [facility] [address]
--- OUTSIDE RECORDS SUMMARY | 2023-09-18 21:38 | External Medical Summary ---
Author Name Unknown Address Unknown Organization K01:LABORATORY [facility] [place] - [address] [place] [address] Laboratory Report Ordering Provider Test Date Status CHANELL FIORE 07/01/2023 03:27:44 Final Observation Date Value Abnormality Reference (Units ) Status Albumin 07/01/2023 03:27:44 4.0 3.8-5.0 (g/dL) Final AST (Aspartate aminotransferase) 07/01/2023 03:27:44 21 10-50 (U/L) Final Alk Phos 07/01/2023 03:27:44 68 35-130 (U/L) Final ALT (Alanine aminotransferase) 07/01/2023 03:27:44 56 Above high normal 10-50 (U/L) Final Bilirubin, Total 07/01/2023 03:27:44 0.3 <=1.2 (mg/dL) Final Bilirubin, Direct 07/01/2023 03:27:44 <0.2 0.0-0.3 (mg/dL) Final Protein 07/01/2023 03:27:44 6.7 6.0-8.3 (g/dL) Final Performing Location LABORATORY [facility] [place] - [address] [place] [address]
--- OUTSIDE RECORDS SUMMARY | 2023-09-18 21:38 | External Medical Summary ---
Author Name Unknown Address Unknown Organization K01:LABORATORY [facility] [place] [address] [place] [address] Laboratory Report Ordering Provider Test Date Status CHANELL FIORE 06/28/2023 09:05:00 Final Observation Date Value Abnormality Reference (Units ) Status Uric Acid 06/28/2023 09:05:00 1.5 Below low normal 3.4 -7.0 (mg/dL) Final Performing Location LABORATORY [facility] [place] [address] [place] [address]
--- OUTSIDE RECORDS SUMMARY | 2023-09-18 21:38 | External Medical Summary ---
Author Name Unknown Address Unknown Organization K01:[place] [facility] [place] [place] [address] [facility] [address] Laboratory Report Ordering Provider Test Date Status WILMAN PRADO 06/29/2023 03:39:27 Final Observation Date Value Abnormality Reference (Units ) Status WBC, Total 06/29/2023 03:39:27 7.44 4.00-10.80 (K/uL) Final RBC 06/29/2023 03:39:27 3.30 4.50-5.25 (M/uL) Final Hemoglobin 06/29/2023 03:39:27 9.5 Below low normal 14.0-16.8 (g/dL) Final HCT 06/29/2023 03:39:27 29.4 Below low normal 40.0-48.4 (%) Final MCV 06/29/2023 03:39:27 89.1 82.0-99.5 (fL) Final MCH 06/29/2023 03:39:27 28.8 27.0-34.0 (pg) Final MCHC 06/29/2023 03:39:27 32.3 32.0-36.0 (g/dL) Final RDW 06/29/2023 03:39:27 12.6 11.5-15.5 (%) Final Platelets 06/29/2023 03:39:27 182 140-400 (K/uL) Final MPV 06/29/2023 03:39:27 10.1 6.6-11.1 (fL) Final Nucleated erythrocytes/100 leukocytes [Ratio] in Blood by Automated count 06/29/2023 03:39:27 0 <=0 (/100 WBCs) Final Performing Location [place] [facility] [place] [address] [place] [address]
--- OUTSIDE RECORDS SUMMARY | 2023-09-18 21:38 | External Medical Summary ---
Author Name Unknown Address Unknown Organization K01:[facility] - [address] [place] [address] Laboratory Report Ordering Provider Test Date Status MARA ASENCIO 06/28/2023 18:18:00 Final Observation Date Value Abnormality Reference (Units ) Status Phosphate 06/28/2023 18:18:00 3.1 2.5-4.8 (m g/dL) Final Performing Location [facility] [address] [facility] [address]
--- OUTSIDE RECORDS SUMMARY | 2023-09-18 21:38 | External Medical Summary ---
Author Name Unknown Address Unknown Organization K01:[facility] - [address] [place] [address] Laboratory Report Ordering Provider Test Date Status JAMES LOPEZ 07/01/2023 03:27:44 Final Observation Date Value Abnormality Reference (Units ) Status Magnesium 07/01/2023 03:27:44 2.3 1.5-2.6 (m g/dL) Final Performing Location [facility] - [address] [place] [address]
--- OUTSIDE RECORDS SUMMARY | 2023-09-18 21:38 | External Medical Summary ---
Author Name Unknown Address Unknown Organization : Laboratory Report Ordering Provider Test Date Status CHINYERE RODRIGUES 07/01/2023 16:11:01 Final Observation Date Value Abnormality Reference (Units ) Status Glucose Point of Care 07/01/2023 16:11:01 191 Above high normal 70-120 (mg/dL) Final Performing Location
--- OUTSIDE RECORDS SUMMARY | 2023-09-18 21:39 | External Medical Summary ---
Author Name Unknown Address Unknown Organization K01:LABORATORY [facility] [place] - [address] [address] Laboratory Report Ordering Provider Test Date Status MARA ASENCIO 06/27/2023 17:31:00 Final Observation Date Value Abnormality Reference (Units ) Status BUN 06/27/2023 17:31:00 13 6-20 (mg/dL) Final Creatinine 06/27/2023 17:31:00 0.6 0.6-1.2 (mg/dL) Final Glomerular filtration rate/1.73 sq M.predicted [Volume Rate/Area] in Serum, Plasma or Blood by Creatinine-based formula (CKD-EPI) 06/27/2023 17:31:00 >90 >=60 (mL/min) Final eGFR is calculated based on the CKD-EPI 2020 equation Sodium 06/27/2023 17:31:00 135 135-146 (m mol/L) Final Potassium 06/27/2023 17:31:00 3.7 3.5-5.1 (m mol/L) Final Cl 06/27/2023 17:31:00 105 98-107 (mm ol/L) Final CO2 06/27/2023 17:31:00 19 Below low normal 22- 32 (mmol/L) Final Anion gap 06/27/2023 17:31:00 11 7-15 (mmol /L) Final Glucose 06/27/2023 17:31:00 168 Above high normal 70 -120 (mg/dL) Final Calcium 06/27/2023 17:31:00 9.4 8.4-10.2 ( mg/dL) Final Performing Location LABORATORY [facility] [place] - [address] [place] [address]
--- OUTSIDE RECORDS SUMMARY | 2023-09-18 21:39 | External Medical Summary ---
Author Name Unknown Address Unknown Organization K01:LABORATORY [facility] [place] - [address] [place] [address] Laboratory Report Ordering Provider Test Date Status DREW GARAY 06/27/2023 17:32:00 Final Observation Date Value Abnormality Reference (Units ) Status Uric Acid 06/27/2023 17:32:00 1.3 Below low normal 3.4 -7.0 (mg/dL) Final Performing Location LABORATORY [facility] - [address] [place] [address]
--- OUTSIDE RECORDS SUMMARY | 2023-09-18 21:39 | External Medical Summary ---
Author Name Unknown Address Unknown Organization K01:LABORATORY [place] - [address] [address] Laboratory Report Ordering Provider Test Date Status JAMES LOPEZ 06/25/2023 08:19:00 Final Warfarin Therapy
INR: 2 .0-3.0 conventional anticoagulation
INR: 2.5- 3.5 high intensity anticoagulation Observation Date Value Abnormality Reference (Units ) Status PT 06/25/2023 08:19:00 13.4 11.6-15.2 (seconds) Final INR 06/25/2023 08:19:00 1.0 0.8-1.2 Final Performing Location LABORATORY [facility] - [address] [place] [address]
--- OUTSIDE RECORDS SUMMARY | 2023-09-18 21:39 | External Medical Summary ---
Author Name Unknown Address Unknown Organization K01:[place]ATORY [facility] [place] [address] [place] [address] Laboratory Report Ordering Provider Test Date Status JAMES LOPEZ 06/25/2023 08:20:00 Final Observation Date Value Abnormality Reference (Units ) Status BUN 06/25/2023 08:20:00 13 6-20 (mg/dL) Final Creatinine 06/25/2023 08:20:00 0.7 0.6-1.2 (mg/dL) Final Glomerular filtration rate/1.73 sq M.predicted [Volume Rate/Area] in Serum, Plasma or Blood by Creatinine-based formula (CKD-EPI) 06/25/2023 08:20:00 >90 >=60 (mL/min) Final eGFR is calculated based on the CKD-EPI 2020 equation Sodium 06/25/2023 08:20:00 137 135-146 (m mol/L) Final Potassium 06/25/2023 08:20:00 4.0 3.5-5.1 (m mol/L) Final Cl 06/25/2023 08:20:00 102 98-107 (mm ol/L) Final CO2 06/25/2023 08:20:00 23 22-32 (mmo l/L) Final Anion gap 06/25/2023 08:20:00 12 7-15 (mmol /L) Final Glucose 06/25/2023 08:20:00 118 70-120 (mg /dL) Final Calcium 06/25/2023 08:20:00 9.3 8.4-10.2 ( mg/dL) Final Performing Location LABORATORY [facility] [place] [address] [facility] [address]
--- OUTSIDE RECORDS SUMMARY | 2023-09-18 21:39 | External Medical Summary ---
Author Name Unknown Address Unknown Organization K01:[facility] - [address] [place] [address] Laboratory Report Ordering Provider Test Date Status JAMES LOPEZ 06/26/2023 08:34:00 Final Observation Date Value Abnormality Reference (Units ) Status Phosphate 06/26/2023 08:34:00 3.4 2.5-4.8 (m g/dL) Final Performing Location [facility] - [address] [place] [address]
--- OUTSIDE RECORDS SUMMARY | 2023-09-18 21:39 | External Medical Summary ---
Author Name Unknown Address Unknown Organization K01:[place] [facility] [place] [address] [address] Laboratory Report Ordering Provider Test Date Status JAMES LOPEZ 06/26/2023 08:34:00 Final Warfarin Therapy
INR: 2 .0-3.0 conventional anticoagulation
INR: 2.5- 3.5 high intensity anticoagulation Observation Date Value Abnormality Reference (Units ) Status PT 06/26/2023 08:34:00 13.4 11.6-15.2 (seconds) Final INR 06/26/2023 08:34:00 1.0 0.8-1.2 Final Performing Location LABORATORY [facility] - [address] [place] [address]
--- OUTSIDE RECORDS SUMMARY | 2023-09-18 21:39 | External Medical Summary | Summary of Care ---
Author Name Unknown Organization [facility] Address [address] [place] [address] Phone [phone] Care Team Providers Care System Architect Name Role Phone Kayla Reeder DO Primary Care Provider [phone]- [phone] Reason for Visit * Auth/Cert Specialty Diagnoses / Procedures Referred By Contac t Referred To Contact Diagnoses intraabdominal mass Inocente Villafuerte DO [address] [facility] [place] [address] Admissions [facility] [address] [place] [address] Referral ID Status Reason Start Date Expiration Date Visits Re quested Visits Authorized [id number] Encounter Details Date Type Department Care Team (Latest Contact Info) Description 06/24/2023 2:50 PM EDT - 06/24/2023 11:59 PM EDT Hospital Encounter Cardiac Studies [facility] [address], [place] [id number] Discharge Disposition: Home - Self Care Allergies No known active allergiesdocumented as of this encounter (statuses as of 06/25/2023) Medications Medication Sig Dispensed Refills Start Date End Date Status ASPIRIN 81 MG PO TABS one tablet daily 0 Suspende d Acetaminophen-Cod eine 300-30 MG Oral TabletIndications :Cerebral vasculitis 0 09/20/2021 Suspended Topiramate 100 MG Oral Tablet [...] 6 hours as needed (Pain). 30 Tablet 0 06/11/2023 Suspended Additional Information Ondansetron HCl 4 MG Oral Tablet Take 1 Tablet by mouth every 6 hours as needed for Nausea. 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..] as of this encounter (statuses as of 06/25/2023) Immunizations Name Administration Dates Next Due DT [...] Care Team (Late st Contact Info) Description 06/29/2023 1:00 PM EDT Office Visit Hematology/Oncology, [address] [place] [address] Mike Chaudhary MD [address] [place] [address] 07/24/2023 12:40 PM EDT Office Visit [facility] [address], [place] [address] [place] [address] Calin Galloway PA-C [address] [place] [address] 08/26/2023 1:00 PM EDT Office Visit Sleep Disorders, [facility] [address] [place] [address] Dave Daigle PA-C [address] [place] [address] Health Maintenance Due Date Last Done Comments [...] Procedure Name Priority Date/Time Associated Diagnosis Comments ECHO, COMPLETE (2D), TRANS-THORACIC Routine 06/24/2023 3:47 PM EDT Encounter for antineoplastic chemotherapy documented in this encounter Visit Diagnoses Diagnosis HTN, goal below 140/90- Primary Unspecified essential hypertension documented in this encounter Additional Health Concerns Infection Onset Date Last Indicated Resolved Time C. difficile Rule-Out 06/24/2023 06/24/20232023 8:27 PM EDT Gastrointestinal Rule-Out 06/24/2023 06/24/2023 10:45 PM EDT documented as of this encounter Advance Directives Latest Code Status on File Code Status Date Activated Date Inactivated Comments Full Code 06/20/2023 10:27 PM This order reflects the patients wishes and were consensually agreed upon. Question Answer Comments Discussion of Advance Directives occurred with: Patient Care Teams System Architect Relationship Specialty Start Date End Date Kayla Reeder DO [address] [facility] [place] [address] PCP - General Family Medicine 06/11/23 documented as of this encounter
--- OUTSIDE RECORDS SUMMARY | 2023-09-18 21:39 | External Medical Summary ---
Author Name Unknown Address Unknown Organization K01:LABORATORY [facility] [place] - [address] [address] Laboratory Report Ordering Provider Test Date Status WILMAN PRADO 06/27/2023 08:12:00 Final Observation Date Value Abnormality Reference (Units ) Status SYNC LEUKOCYTES IN BLOOD BY AUTOMATED COUNT 06/27/2023 08:12:00 9.21 4.00-10.80 (K/uL) Final Segs 06/27/2023 08:12:00 66.7 40.0-75.0 (%) Final Lymphs % 06/27/2023 08:12:00 18.5 18.0-42.0 (%) Final Monos 06/27/2023 08:12:00 14.1 Above high normal 1.0-11.0 (%) Final Eosinophils 06/27/2023 08:12:00 0.1 0.0-6.0 (%) Final Basos 06/27/2023 08:12:00 0.2 0.0-2.0 (%) Final Immature Granulocyte, Percent 06/27/2023 08:12:00 0.4 0.0-2.0 (%) Final Absolute Segs 06/27/2023 08:12:00 6.14 1.80-7.70 (K/uL) Final Lymphs, absolute 06/27/2023 08:12:00 1.70 1.00-4.80 (K/ul) Final Monos, Abs 06/27/2023 08:12:00 1.30 Above high normal 0.00-1.10 (K/uL) Final Eos, Abs 06/27/2023 08:12:00 0.01 0.00-0.70 (K/uL) Final Basos, Abs 06/27/2023 08:12:00 0.02 0.00-0.20 (K/uL) Final Immature Granulocytes, Number 06/27/2023 08:12:00 0.04 0.00-0.20 (K/uL) Final Performing Location LABORATORY [facility] [place] - [address] [facility] [address]
--- OUTSIDE RECORDS SUMMARY | 2023-09-18 21:39 | External Medical Summary ---
Author Name Unknown Address Unknown Organization K01:LABORATORY [facility] - [address] [place] [facility] [place] [address] Laboratory Report Ordering Provider Test Date Status MOLLY FLORES 06/25/2023 08:20:00 Final Observation Date Value Abnormality Reference (Units ) Status SYNC LEUKOCYTES IN BLOOD BY AUTOMATED COUNT 06/25/2023 08:20:00 7.06 4.00-10.80 (K/uL) Final Segs 06/25/2023 08:20:00 50.0 40.0-75.0 (%) Final Lymphs % 06/25/2023 08:20:00 31.3 18.0-42.0 (%) Final Monos 06/25/2023 08:20:00 16.0 Above high normal 1.0-11.0 (%) Final Eosinophils 06/25/2023 08:20:00 1.8 0.0-6.0 (%) Final Basos 06/25/2023 08:20:00 0.6 0.0-2.0 (%) Final Immature Granulocyte, Percent 06/25/2023 08:20:00 0.3 0.0-2.0 (%) Final Absolute Segs 06/25/2023 08:20:00 3.56 1.80-7.70 (K/uL) Final Lymphs, absolute 06/25/2023 08:20:00 2.23 1.00-4.80 (K/ul) Final Monos, Abs 06/25/2023 08:20:00 1.14 Above high normal 0.00-1.10 (K/uL) Final Eos, Abs 06/25/2023 08:20:00 0.13 0.00-0.70 (K/uL) Final Basos, Abs 06/25/2023 08:20:00 0.04 0.00-0.20 (K/uL) Final Immature Granulocytes, Number 06/25/2023 08:20:00 0.02 0.00-0.20 (K/uL) Final Performing Location LABORATORY [facility] [place] - [address] [facility] [address]
--- OUTSIDE RECORDS SUMMARY | 2023-09-18 21:39 | External Medical Summary ---
Author Name Unknown Address Unknown Organization [id number]:LABORATORY [facility] [place] - [address] [place] [address] Laboratory Report Ordering Provider Test Date Status WILMAN PRADO 06/26/2023 20:45:00 Final Observation Date Value Abnormality Reference (Units ) Status BUN 06/26/2023 20:45:00 10 6-20 (mg/dL) Final Creatinine 06/26/2023 20:45:00 0.8 0.6-1.2 (mg/dL) Final Glomerular filtration rate/1.73 sq M.predicted [Volume Rate/Area] in Serum, Plasma or Blood by Creatinine-based formula (CKD-EPI) 06/26/2023 20:45:00 >90 >=60 (mL/min) Final eGFR is calculated based on the CKD-EPI 2020 equation Sodium 06/26/2023 20:45:00 133 Below low normal 135 -146 (mmol/L) Final Potassium 06/26/2023 20:45:00 3.7 3.5-5.1 (m mol/L) Final Cl 06/26/2023 20:45:00 101 98-107 (mm ol/L) Final CO2 06/26/2023 20:45:00 22 22-32 (mmo l/L) Final Anion gap 06/26/2023 20:45:00 10 7-15 (mmol /L) Final Glucose 06/26/2023 20:45:00 171 Above high normal 70 -120 (mg/dL) Final Calcium 06/26/2023 20:45:00 9.5 8.4-10.2 ( mg/dL) Final Performing Location LABORATORY [facility] [place] - [address] [place] [address]
--- OUTSIDE RECORDS SUMMARY | 2023-09-18 21:39 | External Medical Summary ---
Author Name Unknown Address Unknown Organization [id number]:[facility] - [address] [place] [address] Laboratory Report Ordering Provider Test Date Status WILMAN PRADO 06/26/2023 20:45:00 Final Observation Date Value Abnormality Reference (Units ) Status Phosphate 06/26/2023 20:45:00 1.7 Below low normal 2.5 -4.8 (mg/dL) Final Performing Location [facility] - [address] [place] [address]
--- OUTSIDE RECORDS SUMMARY | 2023-09-18 21:39 | External Medical Summary ---
Author Name Unknown Address Unknown Organization [id number]:LABORATORY [facility] - [address] [place] [address] Laboratory Report Ordering Provider Test Date Status WILMAN PRDAO 06/26/2023 08:34:00 Final Observation Date Value Abnormality Reference (Units ) Status LDH 06/26/2023 08:34:00 278 Above high normal <= 250 (U/L) Final Result may be falsely elevat ed due to hemolysis. Performing Location [facility] - [address] [place] [address]
--- OUTSIDE RECORDS SUMMARY | 2023-09-18 21:39 | External Medical Summary ---
Author Name Unknown Address Unknown Organization [id number]:[facility] - [address] [place] [address] Laboratory Report Ordering Provider Test Date Status JAMES LOPEZ 06/26/2023 08:34:00 Final Observation Date Value Abnormality Reference (Units ) Status Magnesium 06/26/2023 08:34:00 1.9 1.5-2.6 (m g/dL) Final Performing Location [facility] - [address] [place] [address]
--- OUTSIDE RECORDS SUMMARY | 2023-09-18 21:39 | External Medical Summary ---
Author Name Unknown Address Unknown Organization [id number]:LABORATORY [facility] [place] - [facility] [address] [place] [address] Laboratory Report Ordering Provider Test Date Status KEMAR GARAYMARCELLECESILIA 06/25/2023 08:20:00 Final Observation Date Value Abnormality Reference (Units) Status Hepatitis B virus surface Ab [Units/volume] in Serum or Plasma by Immunoassay 06/25/2023 08:20:00 <3.5 (mIU/mL) Final Hepatitis B virus surface Ab [Presence] in Serum by Immunoassay 06/25/2023 08:20:00 Negative Final HEPATITIS B SURFACE ANTIBODY, INTERPRETATION 06/25/2023 08:20:00 NOT immune to Hepatitis B Virus Final POSITIVE: >=11.5 mIU/mL
INDETERMINATE: 8.5-<11.5 mIU/mL
NEGATIVE: <8.5 mIU/mL Performing Location LABORATORY [facility] [place] - [address] [place] [address]
--- OUTSIDE RECORDS SUMMARY | 2023-09-18 21:39 | External Medical Summary ---
Author Name Unknown Address Unknown Organization [id number]:[facility] - [address] [place] [address] Laboratory Report Ordering Provider Test Date Status JAMES LOPEZ 06/27/2023 08:12:00 Final Observation Date Value Abnormality Reference (Units ) Status Magnesium 06/27/2023 08:12:00 1.8 1.5-2.6 (m g/dL) Final Performing Location [facility] - [address] [place] [address]
--- OUTSIDE RECORDS SUMMARY | 2023-09-18 21:39 | External Medical Summary ---
Author Name Unknown Address Unknown Organization [id number]:[facility] - [address] [place] [address] Laboratory Report Ordering Provider Test Date Status MARA ASENCIO 06/27/2023 08:12:00 Final Observation Date Value Abnormality Reference (Units ) Status LDH 06/27/2023 08:12:00 282 Above high normal <= 250 (U/L) Final Performing Location [facility] - [address] [place] [address]
--- OUTSIDE RECORDS SUMMARY | 2023-09-18 21:39 | External Medical Summary ---
Author Name Unknown Address Unknown Organization [id number]:LABORATORY [facility] - [address] [place] [address] Laboratory Report Ordering Provider Test Date Status WILMAN PRADO 06/26/2023 18:35:00 Final Observation Date Value Abnormality Reference (Units ) Status LDH 06/26/2023 18:35:00 276 Above high normal <= 250 (U/L) Final Result may be falsely elevat ed due to hemolysis. Performing Location [facility] - [address] [place] [address]
--- OUTSIDE RECORDS SUMMARY | 2023-09-18 21:39 | External Medical Summary ---
Author Name Unknown Address Unknown Organization [id number]:[facility] - [address] [place] [address] Laboratory Report Ordering Provider Test Date Status MARA ASENCIO 06/27/2023 17:31:00 Final Observation Date Value Abnormality Reference (Units ) Status Phosphate 06/27/2023 17:31:00 2.7 2.5-4.8 (m g/dL) Final Performing Location [facility] - [address] [place] [address]
--- OUTSIDE RECORDS SUMMARY | 2023-09-18 21:39 | External Medical Summary ---
Author Name Unknown Address Unknown Organization [id number]:LABORATORY [facility] [place] - [address] [facility] [address] Laboratory Report Ordering Provider Test Date Status JAMES LOPEZ 06/26/2023 08:34:00 Final Observation Date Value Abnormality Reference (Units ) Status WBC, Total 06/26/2023 08:34:00 7.10 4.00-10.80 (K/uL) Final RBC 06/26/2023 08:34:00 3.96 4.50-5.25 (M/uL) Final Hemoglobin 06/26/2023 08:34:00 11.6 Below low normal 14.0-16.8 (g/dL) Final HCT 06/26/2023 08:34:00 35.0 Below low normal 40.0-48.4 (%) Final MCV 06/26/2023 08:34:00 88.4 82.0-99.5 (fL) Final MCH 06/26/2023 08:34:00 29.3 27.0-34.0 (pg) Final MCHC 06/26/2023 08:34:00 33.1 32.0-36.0 (g/dL) Final RDW 06/26/2023 08:34:00 12.5 11.5-15.5 (%) Final Platelets 06/26/2023 08:34:00 224 140-400 (K/uL) Final MPV 06/26/2023 08:34:00 10.3 6.6-11.1 (fL) Final Nucleated erythrocytes/100 leukocytes [Ratio] in Blood by Automated count 06/26/2023 08:34:00 0 <=0 (/100 WBCs) Final Performing Location LABORATORY [facility] [place] - [address] [place] [address]
--- OUTSIDE RECORDS SUMMARY | 2023-09-18 21:39 | External Medical Summary ---
Author Name Unknown Address Unknown Organization : Laboratory Report Ordering Provider Test Date Status MOLLY FLORES 06/27/2023 16:11:18 Final Observation Date Value Abnormality Reference (Units ) Status Glucose Point of Care 06/27/2023 16:11:18 131 Above high normal 70-120 (mg/dL) Final Performing Location
--- OUTSIDE RECORDS SUMMARY | 2023-09-18 21:39 | External Medical Summary ---
Author Name Unknown Address Unknown Organization : Laboratory Report Ordering Provider Test Date Status MOLLY FLORES 06/27/2023 21:10:50 Final Observation Date Value Abnormality Reference (Units ) Status Glucose Point of Care 06/27/2023 21:10:50 200 Above high normal 70-120 (mg/dL) Final Performing Location
--- OUTSIDE RECORDS SUMMARY | 2023-09-18 21:39 | External Medical Summary ---
Author Name Unknown Address Unknown Organization : Laboratory Report Ordering Provider Test Date Status TILA PETERSEN 06/25/2023 14:17:00 Final Observation Date Value Abnormality Reference (Units) Status BONE MARROW COLLECTION 06/25/2023 14:17:00 Sent to [facility] Final Performing Location
--- OUTSIDE RECORDS SUMMARY | 2023-09-18 21:39 | External Medical Summary ---
Author Name Unknown Address Unknown Organization : Laboratory Report Ordering Provider Test Date Status MOLLY FLORES 06/28/2023 06:30:35 Final Observation Date Value Abnormality Reference (Units ) Status Glucose Point of Care 06/28/2023 06:30:35 110 70-120 (mg/dL) Final Performing Location
--- OUTSIDE RECORDS SUMMARY | 2023-09-18 21:39 | External Medical Summary ---
Author Name Unknown Address Unknown Organization [id number]:LAB[facility]ATORY [facility] [place] - [address] [place] [address] [place] [address] Laboratory Report Ordering Provider Test Date Status MOLLY FLORES 06/26/2023 08:34:00 Final Observation Date Value Abnormality Reference (Units ) Status SYNC LEUKOCYTES IN BLOOD BY AUTOMATED COUNT 06/26/2023 08:34:00 7.10 4.00-10.80 (K/uL) Final Segs 06/26/2023 08:34:00 58.7 40.0-75.0 (%) Final Lymphs % 06/26/2023 08:34:00 26.3 18.0-42.0 (%) Final Monos 06/26/2023 08:34:00 13.0 Above high normal 1.0-11.0 (%) Final Eosinophils 06/26/2023 08:34:00 1.3 0.0-6.0 (%) Final Basos 06/26/2023 08:34:00 0.4 0.0-2.0 (%) Final Immature Granulocyte, Percent 06/26/2023 08:34:00 0.3 0.0-2.0 (%) Final Absolute Segs 06/26/2023 08:34:00 4.14 1.80-7.70 (K/uL) Final Lymphs, absolute 06/26/2023 08:34:00 1.86 1.00-4.80 (K/ul) Final Monos, Abs 06/26/2023 08:34:00 0.92 0.00-1.10 (K/uL) Final Eos, Abs 06/26/2023 08:34:00 0.09 0.00-0.70 (K/uL) Final Basos, Abs 06/26/2023 08:34:00 0.03 0.00-0.20 (K/uL) Final Immature Granulocytes, Number 06/26/2023 08:34:00 0.02 0.00-0.20 (K/uL) Final Performing Location LABORATORY [facility] [place] - [address] [facility] [address]
--- OUTSIDE RECORDS SUMMARY | 2023-09-18 21:39 | External Medical Summary ---
Author Name Unknown Address Unknown Organization K01:[facility] - [address] [place] [address] Laboratory Report Ordering Provider Test Date Status TILA PETERSEN 06/26/2023 20:45:00 Final Observation Date Value Abnormality Reference (Units ) Status LDH 06/26/2023 20:45:00 257 Above high normal <= 250 (U/L) Final Performing Location [facility] - [address] [place] [address]
--- OUTSIDE RECORDS SUMMARY | 2023-09-18 21:39 | External Medical Summary ---
Author Name Unknown Address Unknown Organization [id number]:LAB[facility]ATORY [facility] [place] [address] [place] [address] Laboratory Report Ordering Provider Test Date Status DREW GARAY 06/25/2023 08:19:00 Final Observation Date Value Abnormality Reference (Units ) Status Uric Acid 06/25/2023 08:19:00 2.5 Below low normal 3.4 -7.0 (mg/dL) Final Performing Location LABORATORY [facility] - [address] [place] [address]
--- OUTSIDE RECORDS SUMMARY | 2023-09-18 21:39 | External Medical Summary ---
Author Name Unknown Address Unknown Organization K01:LABORATORY [facility] - [address] [place] [address] Laboratory Report Ordering Provider Test Date Status TILA PETERSEN 06/25/2023 14:17:00 Final Observation Date Value Abnormality Reference (Units ) Status BONE MARROW FOR FLOW CYTOMETRY 06/25/2023 14:17:00 Yes Final Performing Location [facility] - [address] [place] [address]
--- OUTSIDE RECORDS SUMMARY | 2023-09-18 21:39 | External Medical Summary ---
Author Name Unknown Address Unknown Organization K01:LAB[facility]ATORY [facility] [place] - [address] [place] [address] Laboratory Report Ordering Provider Test Date Status MARA ASENCIO 06/27/2023 08:12:00 Final Observation Date Value Abnormality Reference (Units ) Status Uric Acid 06/27/2023 08:12:00 1.2 Below low normal 3.4 -7.0 (mg/dL) Final Performing Location LABORATORY [facility] - [address] [place] [address]
--- OUTSIDE RECORDS SUMMARY | 2023-09-18 21:39 | External Medical Summary ---
Author Name Unknown Address Unknown Organization [id number]:[facility]ATORY [facility] [place] [address] [place] [address] Laboratory Report Ordering Provider Test Date Status JAMES LOPEZ 06/25/2023 08:20:00 Final Observation Date Value Abnormality Reference (Units ) Status WBC, Total 06/25/2023 08:20:00 7.06 4.00-10.80 (K/uL) Final RBC 06/25/2023 08:20:00 4.16 4.50-5.25 (M/uL) Final Hemoglobin 06/25/2023 08:20:00 12.1 Below low normal 14.0-16.8 (g/dL) Final HCT 06/25/2023 08:20:00 36.7 Below low normal 40.0-48.4 (%) Final MCV 06/25/2023 08:20:00 88.2 82.0-99.5 (fL) Final MCH 06/25/2023 08:20:00 29.1 27.0-34.0 (pg) Final MCHC 06/25/2023 08:20:00 33.0 32.0-36.0 (g/dL) Final RDW 06/25/2023 08:20:00 12.5 11.5-15.5 (%) Final Platelets 06/25/2023 08:20:00 232 140-400 (K/uL) Final MPV 06/25/2023 08:20:00 10.2 6.6-11.1 (fL) Final Nucleated erythrocytes/100 leukocytes [Ratio] in Blood by Automated count 06/25/2023 08:20:00 0 <=0 (/100 WBCs) Final Performing Location LABORATORY [facility] [place] - [address] [place] [address]
--- OUTSIDE RECORDS SUMMARY | 2023-09-18 21:39 | External Medical Summary ---
Author Name Unknown Address Unknown Organization K01:[facility] - [address] [place] [address] Laboratory Report Ordering Provider Test Date Status JAMES LOPEZ 06/25/2023 08:20:00 Final Observation Date Value Abnormality Reference (Units ) Status Magnesium 06/25/2023 08:20:00 1.8 1.5-2.6 (m g/dL) Final Performing Location [facility] - [address] [place] [address]
--- OUTSIDE RECORDS SUMMARY | 2023-09-18 21:39 | External Medical Summary ---
Author Name Unknown Address Unknown Organization K01:[place] [facility] [facility] [place] [address] [place] [address] [place] [address] Laboratory Report Ordering Provider Test Date Status WILMAN PRADO 06/28/2023 09:05:00 Final Observation Date Value Abnormality Reference (Units ) Status SYNC LEUKOCYTES IN BLOOD BY AUTOMATED COUNT 06/28/2023 09:05:00 9.99 4.00-10.80 (K/uL) Final Segs 06/28/2023 09:05:00 67.9 40.0-75.0 (%) Final Lymphs % 06/28/2023 09:05:00 17.3 Below low normal 18.0-42.0 (%) Final Monos 06/28/2023 09:05:00 14.1 Above high normal 1.0-11.0 (%) Final Eosinophils 06/28/2023 09:05:00 0.0 0.0-6.0 (%) Final Basos 06/28/2023 09:05:00 0.2 0.0-2.0 (%) Final Immature Granulocyte, Percent 06/28/2023 09:05:00 0.5 0.0-2.0 (%) Final Absolute Segs 06/28/2023 09:05:00 6.78 1.80-7.70 (K/uL) Final Lymphs, absolute 06/28/2023 09:05:00 1.73 1.00-4.80 (K/ul) Final Monos, Abs 06/28/2023 09:05:00 1.41 Above high normal 0.00-1.10 (K/uL) Final Eos, Abs 06/28/2023 09:05:00 0.00 0.00-0.70 (K/uL) Final Basos, Abs 06/28/2023 09:05:00 0.02 0.00-0.20 (K/uL) Final Immature Granulocytes, Number 06/28/2023 09:05:00 0.05 0.00-0.20 (K/uL) Final Performing Location [place] [facility] [place] [facility] [place] [facility] [place] [address]
--- OUTSIDE RECORDS SUMMARY | 2023-09-18 21:39 | External Medical Summary ---
Author Name Unknown Address Unknown Organization K01:[place] [facility] [place] [address] [place] [address] [place] [address] Laboratory Report Ordering Provider Test Date Status KEMAR GARAYMARCELLECESILIA 06/25/2023 08:20:00 Final Observation Date Value Abnormality Reference (Units ) Status Hepatitis B virus core Ab [Presence] in Serum 06/25/2023 08:20:00 Negative Negative Final Performing Location LABORATORY [facility] - [address] [facility] [place] [address]
--- OUTSIDE RECORDS SUMMARY | 2023-09-18 21:39 | External Medical Summary ---
Author Name Unknown Address Unknown Organization K01:LABORATORY [facility] [place] - [facility] [place] [address] Laboratory Report Ordering Provider Test Date Status CHANELL FIORE 06/25/2023 08:20:00 Final Observation Date Value Abnormality Reference (Units ) Status Kent light chains, Free, Serum 06/25/2023 08:20:00 31.69 Above high normal 3.30-19.40 (mg/L) Final Lambda light chains, free, Serum 06/25/2023 08:20:00 20.49 5.71-26.30 (mg/L) Final KAPPA LAMBDA FLC RATIO 06/25/2023 08:20:00 1.55 0.26-1.65 Final Performing Location LABORATORY [facility] [place] - [address] [place] [address]
--- OUTSIDE RECORDS SUMMARY | 2023-09-18 21:39 | External Medical Summary ---
Author Name Unknown Address Unknown Organization K01:[facility]ATORY [facility] [place] [address] [place] [address] Laboratory Report Ordering Provider Test Date Status CHANELL FIORE 06/25/2023 08:20:00 Final Observation Date Value Abnormality Reference (Units ) Status Uric Acid 06/25/2023 08:20:00 1.8 Below low normal 3.4 -7.0 (mg/dL) Final Performing Location LAB[facility] [place] [address] [place] [address]
--- OUTSIDE RECORDS SUMMARY | 2023-09-18 21:39 | External Medical Summary ---
Author Name Unknown Address Unknown Organization : Laboratory Report Ordering Provider Test Date Status MOLLY FLORES 06/27/2023 06:59:50 Final Observation Date Value Abnormality Reference (Units ) Status Glucose Point of Care 06/27/2023 06:59:50 136 Above high normal 70-120 (mg/dL) Final Performing Location
--- OUTSIDE RECORDS SUMMARY | 2023-09-18 21:39 | External Medical Summary ---
Author Name Unknown Address Unknown Organization : Laboratory Report Ordering Provider Test Date Status MOLLY FLORES 06/26/2023 13:06:31 Final Observation Date Value Abnormality Reference (Units ) Status Glucose Point of Care 06/26/2023 13:06:31 113 70-120 (mg/dL) Final Performing Location
--- OUTSIDE RECORDS SUMMARY | 2023-09-18 21:39 | External Medical Summary ---
Author Name Unknown Address Unknown Organization K01:LABORATORY [facility] [place] - [address] [address] Laboratory Report Ordering Provider Test Date Status MARA ASENCIO 06/28/2023 09:05:00 Final Observation Date Value Abnormality Reference (Units ) Status BUN 06/28/2023 09:05:00 11 6-20 (mg/dL) Final Creatinine 06/28/2023 09:05:00 0.7 0.6-1.2 (mg/dL) Final Glomerular filtration rate/1.73 sq M.predicted [Volume Rate/Area] in Serum, Plasma or Blood by Creatinine-based formula (CKD-EPI) 06/28/2023 09:05:00 >90 >=60 (mL/min) Final eGFR is calculated based on the CKD-EPI 2020 equation Sodium 06/28/2023 09:05:00 140 135-146 (m mol/L) Final Potassium 06/28/2023 09:05:00 4.2 3.5-5.1 (m mol/L) Final Cl 06/28/2023 09:05:00 107 98-107 (mm ol/L) Final CO2 06/28/2023 09:05:00 22 22-32 (mmo l/L) Final Anion gap 06/28/2023 09:05:00 11 7-15 (mmol /L) Final Glucose 06/28/2023 09:05:00 119 70-120 (mg /dL) Final Calcium 06/28/2023 09:05:00 9.8 8.4-10.2 ( mg/dL) Final Performing Location LABORATORY [facility] [place] - [address] [place] [address]
--- OUTSIDE RECORDS SUMMARY | 2023-09-18 21:39 | External Medical Summary ---
Author Name Unknown Address Unknown Organization : Laboratory Report Ordering Provider Test Date Status MOLLY FLORES 06/27/2023 10:55:23 Final Observation Date Value Abnormality Reference (Units ) Status Glucose Point of Care 06/27/2023 10:55:23 99 70-120 (mg/dL) Final Performing Location
--- OUTSIDE RECORDS SUMMARY | 2023-09-18 21:39 | External Medical Summary ---
Author Name Unknown Address Unknown Organization K01:[place] [facility] [place] [address] [place] [address] Laboratory Report Ordering Provider Test Date Status JAMES LOPEZ 06/26/2023 08:34:00 Final Observation Date Value Abnormality Reference (Units ) Status BUN 06/26/2023 08:34:00 8 6-20 (mg/dL) Final Creatinine 06/26/2023 08:34:00 0.7 0.6-1.2 (mg/dL) Final Glomerular filtration rate/1.73 sq M.predicted [Volume Rate/Area] in Serum, Plasma or Blood by Creatinine-based formula (CKD-EPI) 06/26/2023 08:34:00 >90 >=60 (mL/min) Final eGFR is calculated based on the CKD-EPI 2020 equation Sodium 06/26/2023 08:34:00 137 135-146 (m mol/L) Final Potassium 06/26/2023 08:34:00 3.9 3.5-5.1 (m mol/L) Final Cl 06/26/2023 08:34:00 103 98-107 (mm ol/L) Final CO2 06/26/2023 08:34:00 25 22-32 (mmo l/L) Final Anion gap 06/26/2023 08:34:00 9 7-15 (mmol /L) Final Glucose 06/26/2023 08:34:00 155 Above high normal 70 -120 (mg/dL) Final Calcium 06/26/2023 08:34:00 9.4 8.4-10.2 ( mg/dL) Final Performing Location [place] [facility] [place] [address] [place] [address]
--- OUTSIDE RECORDS SUMMARY | 2023-09-18 21:39 | External Medical Summary ---
Author Name Unknown Address Unknown Organization K01:LABORATORY [facility] [place] - [address] [place] [address] Laboratory Report Ordering Provider Test Date Status CHANELL FIORE 06/26/2023 08:34:00 Final Observation Date Value Abnormality Reference (Units ) Status Uric Acid 06/26/2023 08:34:00 1.1 Below low normal 3.4 -7.0 (mg/dL) Final Performing Location LABORATORY [facility] [place] - [address] [place] [address]
--- OUTSIDE RECORDS SUMMARY | 2023-09-18 21:39 | External Medical Summary ---
Author Name Unknown Address Unknown Organization K01:LABORATORY [facility] [place] [address] [place] [address] Laboratory Report Ordering Provider Test Date Status WILMAN PRADO 06/26/2023 20:45:00 Final Observation Date Value Abnormality Reference (Units ) Status Uric Acid 06/26/2023 20:45:00 1.2 Below low normal 3.4 -7.0 (mg/dL) Final Performing Location LABORATORY C - [address] [place] [address]
--- OUTSIDE RECORDS SUMMARY | 2023-09-18 21:39 | External Medical Summary ---
Author Name Unknown Address Unknown Organization K01:[place] [facility] [place] [address] [place] [address] Laboratory Report Ordering Provider Test Date Status WILMAN PRADO 06/27/2023 08:12:00 Final Observation Date Value Abnormality Reference (Units ) Status WBC, Total 06/27/2023 08:12:00 9.21 4.00-10.80 (K/uL) Final RBC 06/27/2023 08:12:00 3.92 4.50-5.25 (M/uL) Final Hemoglobin 06/27/2023 08:12:00 11.4 Below low normal 14.0-16.8 (g/dL) Final HCT 06/27/2023 08:12:00 34.9 Below low normal 40.0-48.4 (%) Final MCV 06/27/2023 08:12:00 89.0 82.0-99.5 (fL) Final MCH 06/27/2023 08:12:00 29.1 27.0-34.0 (pg) Final MCHC 06/27/2023 08:12:00 32.7 32.0-36.0 (g/dL) Final RDW 06/27/2023 08:12:00 12.5 11.5-15.5 (%) Final Platelets 06/27/2023 08:12:00 227 140-400 (K/uL) Final MPV 06/27/2023 08:12:00 10.0 6.6-11.1 (fL) Final Nucleated erythrocytes/100 leukocytes [Ratio] in Blood by Automated count 06/27/2023 08:12:00 0 <=0 (/100 WBCs) Final Performing Location [place] [facility] [place] [address] [place] [address]
--- OUTSIDE RECORDS SUMMARY | 2023-09-18 21:39 | External Medical Summary ---
Author Name Unknown Address Unknown Organization K01:LABORATORY [facility] [place] - [address] [place] [address] Laboratory Report Ordering Provider Test Date Status MARA ASENCIO 06/27/2023 08:12:00 Final Observation Date Value Abnormality Reference (Units ) Status BUN 06/27/2023 08:12:00 12 6-20 (mg/dL) Final Creatinine 06/27/2023 08:12:00 0.7 0.6-1.2 (mg/dL) Final Glomerular filtration rate/1.73 sq M.predicted [Volume Rate/Area] in Serum, Plasma or Blood by Creatinine-based formula (CKD-EPI) 06/27/2023 08:12:00 >90 >=60 (mL/min) Final eGFR is calculated based on the CKD-EPI 2020 equation Sodium 06/27/2023 08:12:00 138 135-146 (m mol/L) Final Potassium 06/27/2023 08:12:00 4.0 3.5-5.1 (m mol/L) Final Cl 06/27/2023 08:12:00 106 98-107 (mm ol/L) Final CO2 06/27/2023 08:12:00 22 22-32 (mmo l/L) Final Anion gap 06/27/2023 08:12:00 10 7-15 (mmol /L) Final Glucose 06/27/2023 08:12:00 114 70-120 (mg /dL) Final Calcium 06/27/2023 08:12:00 9.5 8.4-10.2 ( mg/dL) Final Performing Location LABORATORY [facility] [place] - [address] [place] [address]
--- OUTSIDE RECORDS SUMMARY | 2023-09-18 21:39 | External Medical Summary ---
Author Name Unknown Address Unknown Organization K01:LABORATORY [facility] [place] - [address] [place] [address] Laboratory Report Ordering Provider Test Date Status DREW GARAY 06/26/2023 08:34:00 Final Observation Date Value Abnormality Reference (Units ) Status Uric Acid 06/26/2023 08:34:00 1.1 Below low normal 3.4 -7.0 (mg/dL) Final Performing Location LABORATORY C - [address] [place] [address]
--- OUTSIDE RECORDS SUMMARY | 2023-09-18 21:39 | External Medical Summary ---
Author Name Unknown Address Unknown Organization [id number][facility] [address] [place] [address] Laboratory Report Ordering Provider Test Date Status MARA ASENCIO 06/27/2023 08:12:00 Final Observation Date Value Abnormality Reference (Units ) Status Phosphate 06/27/2023 08:12:00 3.0 2.5-4.8 (m g/dL) Final Performing Location [facility] - [address] [place] [address]
--- OUTSIDE RECORDS SUMMARY | 2023-09-18 21:39 | External Medical Summary ---
Author Name Unknown Address Unknown Organization [id number]:[facility] - [address] [place] [address] [place] [address] Laboratory Report Ordering Provider Test Date Status DREW GARAY 06/25/2023 08:20:00 Final Observation Date Value Abnormality Reference (Units ) Status Hep B surface Ag 06/25/2023 08:20:00 Negative Neg ative Final Performing Location [facility] - [address] [place] [address]
--- OUTSIDE RECORDS SUMMARY | 2023-09-18 21:39 | External Medical Summary ---
Author Name Unknown Address Unknown Organization [id number]:[facility] [place] - [address] [place] [address] Laboratory Report Ordering Provider Test Date Status TILA PETERSEN 06/26/2023 08:34:00 Final Observation Date Value Abnormality Reference (Units ) Status Albumin 06/26/2023 08:34:00 3.9 3.8-5.0 (g/dL) Final AST (Aspartate aminotransferase) 06/26/2023 08:34:00 35 10-50 (U/L) Final Result may be falsely elevat ed due to hemolysis. Alk Phos 06/26/2023 08:34:00 78 35-130 (U/ L) Final ALT (Alanine aminotransferase) 06/26/2023 08:34:00 42 10-50 (U/L) Final Bilirubin, Total 06/26/2023 08:34:00 0.3 <=1 .2 (mg/dL) Final Bilirubin, Direct 06/26/2023 08:34:00 <0.2 0. 0-0.3 (mg/dL) Final Protein 06/26/2023 08:34:00 7.0 6.0-8.3 (g /dL) Final Performing Location [facility] - [address] [place] [address]
--- OUTSIDE RECORDS SUMMARY | 2023-09-18 21:39 | External Medical Summary ---
Author Name Unknown Address Unknown Organization : Laboratory Report Ordering Provider Test Date Status TILA PETERSEN 06/25/2023 14:17:00 Final Observation Date Value Abnormality Reference (Units ) Status Performing Location
--- OUTSIDE RECORDS SUMMARY | 2023-09-18 21:40 | External Medical Summary ---
Author Name Unknown Address Unknown Organization [id number]:[facility] [place] - [address] [place] [address] Laboratory Report Ordering Provider Test Date Status JAMES LOPEZ 06/21/2023 07:08:00 Final Observation Date Value Abnormality Reference (Units ) Status BUN 06/21/2023 07:08:00 10 6-20 (mg/dL) Final Creatinine 06/21/2023 07:08:00 1.0 0.6-1.2 (mg/dL) Final Glomerular filtration rate/1.73 sq M.predicted [Volume Rate/Area] in Serum, Plasma or Blood by Creatinine-based formula (CKD-EPI) 06/21/2023 07:08:00 >90 >=60 (mL/min) Final eGFR is calculated based on the CKD-EPI 2020 equation Sodium 06/21/2023 07:08:00 138 135-146 (m mol/L) Final Potassium 06/21/2023 07:08:00 2.9 Below low normal 3.5 -5.1 (mmol/L) Final Cl 06/21/2023 07:08:00 100 98-107 (mm ol/L) Final CO2 06/21/2023 07:08:00 28 22-32 (mmo l/L) Final Anion gap 06/21/2023 07:08:00 10 7-15 (mmol /L) Final Glucose 06/21/2023 07:08:00 107 70-120 (mg /dL) Final Calcium 06/21/2023 07:08:00 9.2 8.4-10.2 ( mg/dL) Final Performing Location [facility] [place] - [address] [place] [address]
--- OUTSIDE RECORDS SUMMARY | 2023-09-18 21:40 | External Medical Summary ---
Author Name Unknown Address Unknown Organization [id number]:[facility] - [address] [place] [address] Laboratory Report Ordering Provider Test Date Status JAMES LOPEZ 06/24/2023 08:01:00 Final Observation Date Value Abnormality Reference (Units ) Status Phosphate 06/24/2023 08:01:00 4.1 2.5-4.8 (m g/dL) Final Performing Location [facility] - [address] [place] [address]
--- OUTSIDE RECORDS SUMMARY | 2023-09-18 21:40 | External Medical Summary ---
Author Name Unknown Address Unknown Organization [id number]:[facility] [place] - [address] [place] [address] Laboratory Report Ordering Provider Test Date Status JAMES LOPEZ 06/22/2023 07:31:00 Final Warfarin Therapy
INR: 2 .0-3.0 conventional anticoagulation
INR: 2.5- 3.5 high intensity anticoagulation Observation Date Value Abnormality Reference (Units ) Status PT 06/22/2023 07:31:00 13.9 11.6-15.2 (seconds) Final INR 06/22/2023 07:31:00 1.1 0.8-1.2 Final Performing Location [facility] - [address] [place] [address]
--- OUTSIDE RECORDS SUMMARY | 2023-09-18 21:40 | External Medical Summary ---
Author Name Unknown Address Unknown Organization [id number]:[facility]ATORY [facility] [place] - [address] [place] [address] Laboratory Report Ordering Provider Test Date Status JAMES LOPEZ 06/23/2023 06:33:00 Final Observation Date Value Abnormality Reference (Units ) Status BUN 06/23/2023 06:33:00 9 6-20 (mg/dL) Final Creatinine 06/23/2023 06:33:00 0.9 0.6-1.2 (mg/dL) Final Glomerular filtration rate/1.73 sq M.predicted [Volume Rate/Area] in Serum, Plasma or Blood by Creatinine-based formula (CKD-EPI) 06/23/2023 06:33:00 >90 >=60 (mL/min) Final eGFR is calculated based on the CKD-EPI 2020 equation Sodium 06/23/2023 06:33:00 137 135-146 (m mol/L) Final Potassium 06/23/2023 06:33:00 3.7 3.5-5.1 (m mol/L) Final Cl 06/23/2023 06:33:00 99 98-107 (mm ol/L) Final CO2 06/23/2023 06:33:00 27 22-32 (mmo l/L) Final Anion gap 06/23/2023 06:33:00 11 7-15 (mmol /L) Final Glucose 06/23/2023 06:33:00 97 70-120 (mg /dL) Final Calcium 06/23/2023 06:33:00 10.2 8.4-10.2 ( mg/dL) Final Performing Location [facility] [place] - [address] [facility] [address]
--- OUTSIDE RECORDS SUMMARY | 2023-09-18 21:40 | External Medical Summary ---
Author Name Unknown Address Unknown Organization K01:[facility] - [address] [place] [address] Laboratory Report Ordering Provider Test Date Status JAMES LOPEZ 06/21/2023 07:08:00 Final Observation Date Value Abnormality Reference (Units ) Status Magnesium 06/21/2023 07:08:00 2.0 1.5-2.6 (m g/dL) Final Performing Location [facility] - [address] [place] [address]
--- OUTSIDE RECORDS SUMMARY | 2023-09-18 21:40 | External Medical Summary | Summary of Care ---
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 Name Role Phone Kayla Reeder DO Primary Care Provider [phone] Reason for Visit * Reason Comments Abdominal Pain * Auth/Cert Specialty Diagnoses / Procedures Referred By Contac t Referred To Contact [facility] [address] [place] [address] Phone: [phone] Emergency Medicine [facility] [address] [place] [address] Referral ID Status Reason Start Date Expiration Date Visits Re quested Visits Authorized [id number] Encounter Details Date Type Department Care Team ([facility] Contact Info) Description 06/20/2023 3:21 PM EDT - 06/20/2023 8:23 PM EDT Emergency [facility] Emergency Department ([facility]) [address] [place] [address] Bryn Gunter DO [address] [place] [address] Abdominal mass, unspecified abdominal location (Primary Dx); Chest pain; Abdominal pain, unspecified abdominal location; Hypertension, unspecified type; Decreased oral intake Discharge Disposition: Short Term Hospital Allergies No known active allergiesdocumented as of this encounter (statuses as of 06/21/2023) Medications Medication Sig Dispensed Refills Start Date [...] as of this encounter (statuses as of 06/21/2023) Active Problems Problem Noted Date Diagnosed Date Kidney stones 05/21/2023 HTN, goal below 140/90 04/20/2023 Visual field defect due to a nd not concurrent with cerebrovascular accident (CVA) 04/22/2022 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 Overview: Follows in [place] q6m History of petit-mal seizures 03/07/2016 Tobacco use disorder 01/01/2016 Migraine with aura and witho ut status migrainosus, not intractable 12/18/2014 Gastroesophageal reflux disease with esophagitis 12/18/2014 Adjustment disorder with depressed mood 08/15/19 10 documented as of this encounter (statuses as of 06/21/2023) Resolved Problems Problem Noted Date Diagnosed Date [...] as of this encounter (statuses as of 06/21/2023) Immunizations Name Administration Dates Next Due DT [...] Sign Reading Time Taken Comments Blood Pressure 154/112 06/20/2023 7:30 PM EDT Pulse 77 06/20/2023 7:30 PM EDT Temperature 37.1 C (98.8 F) 06/20/2023 3:11 PM ED T Respiratory Rate 18 06/20/2023 7:30 PM EDT Oxygen Saturation 100% 06/20/2023 3:11 PM EDT Inhaled Oxygen Concentration - - Weight 118.8 kg (262 lb) 06/20/2023 3:11 PM EDT Height - - Body Mass Index 36.54 06/11/2023 12:02 PM EDT documented in this encounter ED Notes * Bryn Gunter DO - 06/20/2023 4:16 PM EDT HISTORY OF PRESENT ILLNESS Farhad Franco is a 32 year old male who presents to the ED for evaluation of Abdominal Pain. Thepatient was seen at 06/20/23 1537. 32-year-old male with a history of migraines, reflux, cerebral vasculitis, hypertension presenting to the emergency depart with abdominal pain. For about 8 days he has been dealing with abdominal pain. He reports that his pain is a little bit better when standing but otherwise is severe. He has had episodes where it is "12." He had a CT scan done at an outside hospital and it saw a mass. He is scheduled to have PET scans and biopsies done this coming week but his pain is out of control. He is tried the Percocet without relief. He has not having any vomitin g. He denies any abnormal bowel movements but he has had decreased bowel movements with decreased oral intake. He has had small amounts of stool intermittently which are brown and nonbloody. Denies urinary symptoms. He has not had any fevers, coughing, shortness of breath, chest pain, headaches or l ightheadedness. History provided by: patient and parent historical interpreter used: No Abdominal Pain Review of Systems Gastrointestinal: Positive for abdominal pain. The patient's allergies, past history, and medications were reviewed. PHYSICAL EXAM Initial Vitals (see all): BP 166/113 | Pulse 84 | Resp 18 | Temp 98.8 | O2 100 %Weight 118.84 kg | Height 180.3 cm | BMI 36.54 kg/m2 Initial Pain Assessment (see all): 5 (moderate pain)/10, Stabbing , Sharp, location: lower abdomen ([facility] Adult Scale 0-10) Physical Exam Vitals and nursing note reviewed. Constitutional: General: He is in acute distress (mild due to pain). Appearance: Normal appearance. He is well-developed. He is not ill-appearing. HENT: Head: Normocephalic and atraumatic. Nose: Nose normal. Mouth/Throat: Mouth: Mucous membranes are moist. Pharynx: Oropharynx is clear. Eyes: Extraocular Movements: Extraocular movements intact. Pupils: Pupils are equal, round, and reactive to light. Cardiovascular: Rate and Rhythm: Normal rate and regular rhythm. Comments: Pedal pulses are intact Pulmonary: Effort: Pulmonary effort is normal. No respiratory distress. Breath sounds: Normal breath sounds. No wheezing, rhonchi or rales. Abdominal: General: Abdomen is flat. There is no distension. Palpations: Abdomen is soft. Tenderness: There is abdominal tenderness in the epigastric area, periumbilical area and suprapubicarea. There is no guarding. Musculoskeletal: Cervical back: Normal range of motion. Right lower leg: No edema. Left lower leg: No edema. Comments: There is mild muscular tenderness over the musculature of the lower thoracic region and lumbar region Skin: General: Skin is warm and dry. Neurological: General: No focal deficit present. Mental Status: He is alert. Comments: Sensation and strength intact in all extremities Psychiatric: Mood and Affect: Mood normal. Behavior: Behavior normal. PROCEDURES AND TREATMENTS ED Orders | ED Results MEDICAL DECISION MAKING Nursing notes and vital signs were reviewed. ED Course as of 06/20/231919 Sat June 20, 2023 1626 On my independent review of the CTA the vessels including the aortic, SMA, celiac arteries areintact and appear patent without obvious dissection but the mass is much larger compared to the scan from about a week ago. [AT] 1628 On my independent review the patient's EKG he has a normal sinus rhythm at a rate of 67. No obvious ST changes to suggest ischemia. No available prior for comparison. Intervals are within normallimits. [AT] 1717 Patient's pain has improved after the Dilaudid. He remains hypertensive. [AT] 1814 Patient's said his pain is coming and going. I am reaching out to the transfer center to discuss transferring this patient with the medicine service. [AT] 181 CTA read as a mass with an appearance that could represent lymphoma. I have updated the motherand patient at bedside. [AT] 182 I am ordering maintenance fluids for the patient. [AT] 1825 Patient does have some ketones in his urine. [AT] 1920 I have ordered the patient's nightly meds after going over them with the patient and his mother. Patient has been accepted by Dr. Inocente Villafuerte at [facility] in [facility]. He will be transferred this evening. [AT] ED Course User Index [AT] Bryn Gunter, Differential Diagnoses Based on my history, physical exam, and evaluation, the differential includes, but is not limited, to the following diagnoses: Abdominal mass, aortic obstruction/dissection, vasculitis, gastritis, reflux, AAA unlikely, dehydration, electrolyte abnormality, viral illness, mesenteric ischemia unlikely, bowel obstruction unlikely, appendicitis unlikely, diverticulitis, colitis, cancer going to. 32-year-old male presenting to the emergency department with persistent and severe abdominal pain. He is hypertensive. He does have a history of vasculitis. Reviewing images but not the report of prior studies done at outside hospitals he has a mass and he is set up for further imaging and biopsy but his pain is out of control. He has been trying his Percocet without relief. I will give him Dilaudid, Zofran and fluids. Given the location of the mass and his history of vasculitis I am going to obtain a CT angiogram today especially since he is very hypertensive and tender on exam. Pedal pulsesare intact, sensation and strength intact in lower extremities. Amount and/or Complexity of Data Reviewed Independent Historian: parent Labs: ordered. Radiology: ordered. ECG/medicine tests: ordered. Risk OTC drugs. Prescription drug management. Clinical Impressions Abdominal mass, unspecified abdominal location Abdominal pain, unspecified abdominal location Hypertension, unspecified type Decreased oral intake Disposition Transferred. The patient's condition at disposition was: stable. Comments ED Disposition Transferred Comment Initial facility contacted: [facility] Initial contact date/time: 06/20/2023, Accepting provider: Dr. Villafuerte Accepting date/time: 06/20/2023, Reason for transfer: Medicine services along with any surgical/Oncology services for fu rther diagnosis and treatment Bryn Gunter * Tanya Jasso RN - 06/20/2023 3:08 PM EDT Pt here for abdominal pain that wraps around the RLQ and LLQ. Urology was to do surgery on Thursday for kidney stones. Went to ER the night before and they did a CT that found a mass beside L kidney. Has PET scan on 23 june and sees oncology on 28 june. Does c/o CP, states he has hx of hypertension Per chart review has had significant weight loss since his most recent appt. documented in this encounter Miscellaneous Notes * ED Body And Frame Man Note - Lida Fuller RN - 06/20/2023 4:17 PM EDT Pt has diffuse worsening chest, back and abdominal pain. Pt recently has kidney stones and had a CTthat showed a tumor near his kidney. Pt was to have his kidney stones removed last week but did notdue to the new mass. Pt has had some nausea, vomiting and diarrhea. Pt believes his nausea and vomiting is from the pain. Pt has been taking percocet and zofran as needed but it does not seem to help. Pt has a hx of cerebral vasculitis. documented in this encounter Plan of Treatment Upcoming Encounters Date Type Department Care Team (Late st Contact Info) Description 06/24/2023 9:45 AM EDT Imaging Radiology, [place] [address] [address] [place] [address] 06/29/2023 1:00 PM EDT Office Visit Hematology/Oncology, [address] [address] Mike Chaudhary MD [address], [place] [id number] 07/24/2023 12:40 PM EDT Office Visit Family [facility], [address] [place] [address] Calin Galloway PA-C [address] [place] [address] 08/26/2023 1:00 PM EDT Office Visit Sleep Disorders, [address] [address] Dave Daigle PA-C [address] [place] [address] Health Maintenance Due Date Last Done Comments Hepatitis C Screening 2006 Hepatitis B (1 of 3 - 19+ 3-dose series) 11/22/2007 Pneumococcal Vaccine: Pediatrics (0 to 5 Years) and At-Risk Patients (6 to 64 Years) (2 of 2 - PCV) 01/23/2018 01/23/2017 COVID-19 Vaccine ( - 2022-24 season) 2022 Influenza Vaccine (FLU shot) (Season Ended) 2023 11/17/2016, 11/17/2016, 11/30/2015, Additional history exists DTaP,Tdap,and Td Vaccines (7 - Td or Tdap) 10/20/2023 10/19/2013, 10/09/2005, 04/23/1994, Additional history exists Depression Screening 06/10/2024 06/11/2023 GFR 06/20/2024 06/21/2023, 05/0 05/2023, 06/10/2023, Additional history exists Albumin/Creatinine Ratio 08/02/2024 08/02/2021 MENINGOCOCCAL (MENACTRA/MENVEO) Completed 04/09/2007 GARDASIL-HPV IMMUNIZATION SERIES Aged Out No longer eligible based on patient's age to complete this topic documented as of this encounter Medical Devices Not on filedocumented as of this encounter Procedures Procedure Name Priority Date/Time Associated Diagnosis Comments URINALYSIS, REFLEX TO CULTURE STAT 06/20/2023 5:18 PM EDT URINALYSIS, REFLEX TO CULTURE (CUP ONLY) STAT 06/20/2023 5:18 PM EDT URINALYSIS, REFLEX TO CULTURE (NOT FOR NEUTROPENIC PATIENTS) STAT 06/20/2023 5:18 PM EDT CTA CHEST/ABDOMEN/PELVIS STAT 06/20/2023 4:25 PM EDT LACTATE WITH REFLEX IF ABNORMAL Add-on 06/20/2023 3:41 PM EDT EXTRA REHMAN TOP Routine 06/20/2023 3:41 PM EDT EXTRA LIGHT BLUE TOP STAT 06/20/2023 3:41 PM EDT EXTRA TUBES Routine 06/20/2023 3:41 PM EDT DIFFERENTIAL, AUTOMATED STAT 06/20/2023 3:41 PM EDT COMPREHENSIVE METABOLIC PANEL STAT 06/20/2023 3:41 PM EDT CBC STAT 06/20/2023 3:41 PM EDT LIPASE STAT 06/20/2023 3:41 PM EDT CBC STAT 06/20/2023 3:41 PM EDT documented in this encounter Results * (ABNORMAL) URINALYSIS, REFLEX TO CULTURE (06/20/2023 5:18 PM EDT) Color, Urine Yellow Light Yellow, Yellow, Dark Yellow 06/20/2023 5:58 PM EDT LAB[facility] Clarity, Urine Clear Clear 06/20/2023 5:58 PM EDT [facility] Glucose, Urine Negative Negative mg/dL 06/20/2023 5:58 PM EDT [facility] Bilirubin, Urine Negative Negative 06/20/2023 5:58 PM EDT [facility] Ketone, Urine Trace(A) Negative mg/dL 06/20/2023 5:58 PM EDT [facility] Specific [place], Urine 1.049(H) 1.003 - 1.030 06/20/2023 5:58 PM EDT [facility] Blood, Urine Trace(A) Negative 06/20/2023 5:58 PM EDT [facility] pH, Urine 5.5 5.0 - 7.5 Units 06/20/2023 5:58 PM EDT [facility] Protein, Urine Negative Negative mg/dL 06/20/2023 5:58 PM EDT [facility] Urobilinogen, Urine 0.2 0.2, 1.0 mg/dL 06/20/2023 5:58 PM EDT [facility] Nitrite, Urine Negative Negative 06/20/2023 5:58 PM EDT [facility] Esterase, Urine Negative Negative 06/20/2023 5:58 PM EDT [facility] RBC, Urine 0-2 0 - 2 /HPF 06/20/2023 5:58 PM EDT [facility] WBC, Urine 0-2 0 - 2 /HPF 06/20/2023 5:58 PM EDT [facility] Bacteria, Urine 0-25 0 - 25 /HPF 06/20/2023 5:58 PM EDT [facility] Culture, Urine 06/20/2023 5:58 PM EDT [facility] Comment:Culture not indicate d by urinalysis results Urine Urine specimen obtained by clean catch procedure / Unknown Non-blood Collection / Unknown 06/20/2023 5:18 PM EDT 06/20/2023 5:22 PM EDT [facility] LAB URINE ORDERABLE S Performing Organization Address [facility] Co de Phone Number LABORATORY [address] [address] * URINALYSIS, REFLEX TO CULTURE (CUP ONLY) (06/20/2023 5:18 PM EDT) Urinalysis, Reflex to Culture Specimen Specimen collected and received 06/20/2023 7:01 PM EDT LABORATORY [facility] Urine Urine specimen obtained by clean catch procedure / Unknown Non-blood Collection / Unknown 06/20/2023 5:18 PM EDT 06/20/2023 5:22 PM EDT [facility] LAB URINE ORDERABLE S Performing Organization Address [facility] de Phone Number LABORATORY [address] [address] * CTA CHEST/ABDOMEN/PELVIS (06/20/2023 4:25 PM EDT) Anatomical Region Laterality Modality Chest, Abdomen, Pelvis, Body, Cardio Computed Tomography 06/20/2023 4:10 PM EDT Impressions 06/20/2023 6:07 PM EDT IMPRESSION: 1. No acute arterial pathology. 2. 8 x 8 x 8 cm upper retroperitoneal lesion, most suggestive of lymphoma. 3. Probable minor multilobar pneumonitis. 4. Nonobstructive left nephrolithiasis. THIS DOCUMENT HAS BEEN ELECTRONICALLY SIGNED BY NICOLETTE NO MD Narrative 06/20/2023 6:07 PM EDT PROCEDURE INFORMATION: Exam: CTA Chest Without And [...] surrounding SMA, celiac trunk, portions of aorta, hbxe-[id number]-gmeu-right renal arteries and veins. Renal arteries are [...] acute fracture or subluxation. Soft tissues: Unremarkable. Procedure Note Nicolette No MD - 05/04/2024 PROCEDURE INFORMATION: Exam: CTA Chest Without And With Contrast CTA Abdomen Without And With Contrast Exam date and time: 06/20/2023 16:10 Age: 32 years old Clinical indication: Other: Pain; Additional info: Severe lower abdominalpain, intermittent epigastric pain, scan from April does not show mass that wasseen on scan at the end of May, HX vasculitis, concern for aortic pathology TECHNIQUE: Imaging protocol: Computed tomographic angiography of the chest withoutand with contrast. Exam focused on the arteries. Computed tomographicangiography of the abdomen without and with contrast, including non-contrast images if performed. Exam focused on the arteries. 3D rendering (Not supervised by radiologist): MIP and/or 3D reconstructed images were created x the technologist. Radiation optimization: All CT scans at this facility use at least one ofthese dose optimization techniques: automated exposure control; mA and/or kV adjustment per patient size (includes targeted exams where dose is matchedto clinical indication); or iterative reconstruction. Contrast material: ISOVUE 370; Contrast volume: 80 ml; Contrast route: INTRAVENOUS (IV); COMPARISON: DX XR ABDOMEN 1 VIEW 05/21/2023 14:16 FINDINGS: VASCULATURE: Pulmonary arteries: Normal. No pulmonary emboli. Aorta: Patent with no aneurysm or dissection. Celiac trunk and mesenteric arteries: Patent surrounded by materialdescribed below. Pattern characteristic of lymphoma Renal arteries: 8 x 8 x 8 cm intermediate density material in the upper retroperitoneum surrounding SMA, celiac trunk, portions of aorta, veul-xaizryf-fmtn-right renal arteries and veins. Renal arteries arewidely patent. CHEST: Lungs: Minimal scattered lingular and [...] Submucosal fat deposition in the colon, likely habitusand or diet related. No colitis or diverticular disease. No focal pathology inthe small bowel. Intraperitoneal space: Unremarkable. No free air. No significant fluid collection. Retroperitoneal space: The retroperitoneal lesion is new since prior as previously partially imaged. Lymph nodes: Unremarkable. No enlarged lymph nodes. Bones/joints: Incomplete L5 pars defects without listhesis. No acutefracture or subluxation. Soft tissues: Unremarkable. IMPRESSION IMPRESSION: 1. No acute arterial pathology. 2. 8 x 8 x 8 cm upper retroperitoneal lesion, most suggestive oflymphoma. 3. Probable minor multilobar pneumonitis. 4. Nonobstructive left nephrolithiasis. THIS DOCUMENT HAS BEEN ELECTRONICALLY SIGNED BY NICOLETTE NO MD [facility] RAD CT * LACTATE WITH REFLEX IF ABNORMAL (06/20/2023 3:41 PM EDT) Lactate 1.1 0.4 - 2.0 mmol/L 06/20/2023 4:19 PM EDT LABORATORY [facility] Blood Venous blood specimen / Unknown 06/20/2023 3:41 PM EDT 06/20/2023 3:49 PM EDT [facility] LAB BLOOD ORDERABLE S Performing Organization Address [facility] de Phone Number LABORATORY [address] [address] * EXTRA REHMAN TOP (06/20/2023 3:41 PM EDT) Blood Venous blood specimen / Unknown 06/20/2023 3:41 PM EDT 06/20/2023 3:49 PM EDT [facility] LAB BLOOD ORDERABLE S Performing Organization Address [facility] de Phone Number LABORATORY [address] [phone] * (ABNORMAL) DIFFERENTIAL, AUTOMATED (06/20/2023 3:41 PM EDT) WBC 7.53 4.00 - 10.80 K/uL 06/20/2023 3:49 PM EDT LABORATORY [facility] Neutrophils % 56.6 40.0 - 75.0 % 06/20/2023 3:49 PM EDT LABORATORY GL Lymphocytes % 29.2 18.0 - 42.0 % 06/20/2023 3:49 PM EDT LABORATORY GL Monocytes % 12.7(H) 1.0 - 11.0 % 06/20/2023 3:49 PM EDT LABORATORY GL Eosinophils % 0.5 0.0 - 6.0 % 06/20/2023 3:49 PM EDT LABORATORY GL Basophils % 0.7 0.0 - 2.0 % 06/20/2023 3:49 PM EDT LABORATORY GL Immature Granulocytes % 0.3 0.0 - 2.0 % 06/20/2023 3:49 PM EDT LABORATORY GL Absolute Neutrophils 4.26 1.80 - 7.70 K/uL 06/20/2023 3:49 PM EDT LABORATORY [facility] Absolute Lymphocytes 2.20 1.00 - 4.80 K/ul 06/20/2023 3:49 PM EDT LABORATORY [facility] Absolute Monocytes 0.96 0.00 - 1.10 K/uL 06/20/2023 3:49 PM EDT LABORATORY [facility] Absolute Eosinophils 0.04 0.00 - 0.70 K/uL 06/20/2023 3:49 PM EDT LABORATORY [facility] Absolute Basophils 0.05 0.00 - 0.20 K/uL 06/20/2023 3:49 PM EDT LABORATORY GL Absolute Immature Granulocytes 0.02 0.00 - 0.20 K/uL 06/20/2023 3:49 PM EDT LABORATORY [facility] Blood Venous blood specimen / Unknown Venipuncture / Unknown 06/20/2023 3:41 PM EDT 06/20/2023 3:47 PM EDT Bryn Gunter LAB BLOOD ORDERABLE S LABORATORY [facility] [address] [place] [address] * CBC (06/20/2023 3:41 PM EDT) Pathologist [facility] WBC 7.53 4.00 - 10.80 K/uL 06/20/2023 3:49 PM EDT [facility] RBC 4.88 4.50 - 5.25 M/uL 06/20/2023 3:49 PM EDT LABORATORY GL HGB 14.3 14.0 - 16.8 g/dL 06/20/2023 3:49 PM EDT LABORATORY [facility] HCT 40.5 40.0 - 48.4 % 06/20/2023 3:49 PM EDT LABORATORY [facility] MCV 83.0 82.0 - 99.5 fL 06/20/2023 3:49 PM EDT LABORATORY [facility] MCH 29.3 27.0 - 34.0 pg 06/20/2023 3:49 PM EDT LABORATORY [facility] MCHC 35.3 32.0 - 36.0 g/dL 06/20/2023 3:49 PM EDT LABORATORY [facility] RDW 12.1 11.5 - 15.5 % 06/20/2023 3:49 PM EDT LABORATORY [facility] PLT 234 140 - 400 K/uL 06/20/2023 3:49 PM EDT LABORATORY [facility] MPV 9.8 6.6 - 11.1 fL 06/20/2023 3:49 PM EDT LABORATORY [facility] nRBCs 0 <=0 /100 WBCs 06/20/2023 3:49 PM EDT LABORATORY [facility] Blood Venous blood specimen / Unknown Venipuncture / Unknown 06/20/2023 3:41 PM EDT 06/20/2023 3:47 PM EDT Bryn Lopes [facility] LAB BLOOD ORDERABLE S Performing Organization Address City/[facility]/ZIP Co de Phone Number LABORATORY [address] [address] * EXTRA LIGHT BLUE TOP (06/20/2023 3:41 PM EDT) Blood Venous blood specimen / Unknown Venipuncture / Unknown 06/20/2023 3:41 PM EDT 06/20/2023 3:47 PM EDT Bryn Lopes [facility] LAB BLOOD ORDERABLE S Performing Organization Address City/[facility]/ZIP Co de Phone Number LABORATORY [address] [phone] * LIPASE (06/20/2023 3:41 PM EDT) Lipase 14 13 - 60 U/L 06/20/2023 4:04 PM EDT [facility] Blood Venous blood specimen / Unknown Venipuncture / Unknown 06/20/2023 3:41 PM EDT 06/20/2023 3:45 PM EDT Bryn Gunter DO LAB BLOOD ORDERABLE S LABORATORY GL [address] [place] [address] * (ABNORMAL) COMPREHENSIVE METABOLIC PANEL (06/20/2023 3:41 PM EDT) BUN 10 6 - 20 mg/dL 06/20/2023 4:04 PM EDT [facility] Creatinine 1.0 0.6 - 1.2 mg/dL 06/20/2023 4:04 PM EDT [facility] Estimated Glomerular Filtration Rate >90 >=60 mL/min 06/20/2023 4:04 PM EDT [facility] Comment:eGFR is calculated b ased on the CKD-EPI 2020 equation Sodium 138 135 - 146 mmol/L 06/20/2023 4:04 PM EDT [facility] Potassium 3.4(L) 3.5 - 5.1 mmol/L 06/20/2023 4:04 PM EDT [facility] Chloride 98 98 - 107 mmol/L 06/20/2023 4:04 PM EDT [facility] CO2 24 22 - 32 mmol/L 06/20/2023 4:04 PM EDT [facility] Anion Gap 16(H) 7 - 15 mmol/L 06/20/2023 4:04 PM EDT [facility] Glucose 112 70 - 120 mg/dL 06/20/2023 4:04 PM EDT [facility] Albumin 4.7 3.8 - 5.0 g/dL 06/20/2023 4:04 PM EDT [facility] AST 32 10 - 50 U/L 06/20/2023 4:04 PM EDT [facility] Alkaline Phosphatase 95 35 - 130 U/L 06/20/2023 4:04 PM EDT [facility] Bilirubin, Total 0.6 <=1.2 mg/dL 06/20/2023 4:04 PM EDT [facility] Calcium 9.9 8.4 - 10.2 mg/dL 06/20/2023 4:04 PM EDT [facility] Protein 7.9 6.0 - 8.3 g/dL 06/20/2023 4:04 PM EDT [facility] ALT 47 10 - 50 U/L 06/20/2023 4:04 PM EDT [facility] Blood Venous blood specimen / Unknown Venipuncture / Unknown 06/20/2023 3:41 PM EDT 06/20/2023 3:45 PM EDT Bryn Gunter DO LAB BLOOD ORDERABLE S [facility] [address] [place] [address] documented in this encounter Visit Diagnoses Diagnosis Abdominal mass, unspecified abdominal location- Primary Chest pain Chest pain, unspecified Abdominal pain, unspecified abdominal location Hypertension, unspecified type Decreased oral intake Other symptoms concerning nutrition, metabolism, and development documented in this encounter Administered Medications Inactive Administered Medications - up to 3 most recent administrations Medication Order MAR Action Action Date Dose Rate Site Acetaminophen (Tylenol) tab 975 mg 975 mg, Oral, ONCE, On 06/20/23 at 1900, For 1 dose, Maximum of 4 grams (4000 mg) per day. Given 06/20/2023 6:41 PM EDT 975 mg divalproex ER (Depakote ER) extended release tab 500 mg 500 mg, Oral, ONCE, On 06/20/23 at 2000, For 1 dose, Swallow whole. Do not crush, break or chew. Given 06/20/2023 7:37 PM EDT 500 mg HYDROmorphone (Dilaudid) inj 0.25 mg 0.25 mg, IV Push, Q30 MIN PRN Pain, Severe, Pain, Breakthrough, Starting on 06/20/23 at 1823, Until 06/20/23 at 2223, For 3 doses Given 06/20/2023 8:12 PM EDT 0.25 mg Given 06/20/2023 6:38 PM EDT 0.25 mg HYDROmorphone (Dilaudid) inj 0.5 mg 0.5 mg, IV Push, ONCE, On 06/20/23 at 1630, For 1 dose Given 06/20/2023 4:33 PM EDT 0.5 mg Iopamidol (Isovue 370) inj 80 mL 80 mL, Intravenous, ONCE, On 06/20/23 at 1700, For 1 dose, Radiology Medication Routing (Non-IR) Given 06/20/2023 5:00 PM EDT 80 mL NSS 0.9% 500 mL bolus infusion Peripheral IV, at 500 mL/hr Administer over 60 Minutes, Administer entire volume within 60 minutes or less., ONCE, 1 dose, On 06/20/23 at 1630 New Bag 06/20/2023 4:36 PM EDT 500 mL 500 mL/hr NSS infusion Intravenous, at 150 mL/hr, CONTINUOUS, Starting on 06/20/23 at 1900, Until 06/20/23 at 2223 ondansetron (Zofran) inj 4 mg 4 mg, IV Push, ONCE, On 06/20/23 at 1700, For 1 dose Given 06/20/2023 4:32 PM EDT 4 mg potassium chloride 10 mEq in 100 mL ivpb LOCKED DOSE 10 mEq, Peripheral IV, ONCE, 1 dose, On 06/20/23 at 1900, Administer over 60 Minutes, Standard infusion duration is 60 minutes. New Bag 06/20/2023 6:53 PM EDT 10 mEq 100 mL/hr propranolol (Inderal) tab 40 mg 40 mg, Oral, ONCE, On 06/20/23 at 2000, For 1 dose, Hold for HR less than 60 or SBP below 100 and notify service if dose is held Given 06/20/2023 7:37 PM EDT 40 mg topiramate (topAMAX) tab 100 mg 100 mg, Oral, ONCE, On 06/20/23 at 2000, For 1 dose Given 06/20/2023 7:37 PM EDT 100 mg documented in this encounter Active and Recently Administered Medications Times are shown in EDT. Scheduled Medication Order 06/18/2023 06/19/2023 06/20/2023 Acetaminophen (Tylenol) tab 975 mg (COMPLETED) 975 mg, Oral, ONCE, On 06/20/23 at 1900, For 1 dose, Maximum of 4 grams (4000 mg) per day. 1841 (Given - Provid er: Lida Fuller RN) divalproex ER (Depakote ER) extended release tab 500 mg (COMPLETED) 500 mg, Oral, ONCE, On 06/20/23 at 2000, For 1 dose, Swallow whole. Do not crush, break or chew. 1936 (Given - Provid er: Matthew Felton, RYLAN) HYDROmorphone (Dilaudid) inj 0.5 mg (COMPLETED) 0.5 mg, IV Push, ONCE, On 06/20/23 at 1630, For 1 dose 163 (Given - Provid er: Lida Fuller RN) Iopamidol (Isovue 370) inj 80 mL (COMPLETED) 80 mL, Intravenous, ONCE, On 06/20/23 at 1700, For 1 dose, Radiology Medication Routing (Non-IR) 1700 (Given - Provid er: Mary Grove, RT) NSS 0.9% 500 mL bolus infusion (COMPLETED) Peripheral IV, at 500 mL/hr Administer over 60 Minutes, Administer entire volume within 60 minutes or less., ONCE, 1 dose, On 06/20/23 at 1630 163 (New Bag - Prov ider: Lida Fuller RN)1953 (Stopped - Provider: Matthew Felton, RYLAN) ondansetron (Zofran) inj 4 mg (COMPLETED) 4 mg, IV Push, ONCE, On 06/20/23 at 1700, For 1 dose 163 (Given - Provid er: Lida Fuller RN) potassium chloride 10 mEq in 100 mL ivpb LOCKED DOSE (COMPLETED) 10 mEq, Peripheral IV, ONCE, 1 dose, On 06/20/23 at 1900, Administer over 60 Minutes, Standard infusion duration is 60 minutes. 185 (New Bag - Prov ider: Lida Fuller RN)1953 (Stopped - Provider: Matthew Felton, RN) propranolol (Inderal) tab 40 mg (COMPLETED) 40 mg, Oral, ONCE, On 06/20/23 at 2000, For 1 dose, Hold for HR less than 60 or SBP below 100 and notify service if dose is held 1936 (Given - Provid er: Matthew Felton, RYLAN) topiramate (topAMAX) tab 100 mg (COMPLETED) 100 mg, Oral, ONCE, On 06/20/23 at 2000, For 1 dose 1937 (Given - Provid er: Matthew Felton RN) Continuous Medication Order 06/18/2023 06/19/2023 06/20/2023 NSS infusion Intravenous, at 150 mL/hr, CONTINUOUS, Starting on 06/20/23 at 1900, Until 06/20/23 at 2223 1900 (Due) PRN Medication Order 06/18/2023 06/19/2023 06/20/2023 HYDROmorphone (Dilaudid) inj 0.25 mg 0.25 mg, IV Push, Q30 MIN PRN Pain, Severe, Pain, Breakthrough, Starting on 06/20/23 at 1823, Until 06/20/23 at 2223, For 3 doses 1838 (Given - Provid er: Lida Fuller RN)2011 (Given - Provider: Matthew Felton RN) documented in this encounter Advance Directives Latest Code Status on File Code Status Date Activated Date Inactivated Comments Full Code 06/20/2023 10:27 PM This order reflects the patients wishes and were consensually agreed upon. Question Answer Comments Discussion of Advance Directives occurred with: Patient Care Teams Dehydration Plant Operator Relationship Specialty Start Date End Date Kayla Reeder DO [address] [facility] [place] [address] PCP - General Family Medicine 06/11/23 documented as of this encounter
--- OUTSIDE RECORDS SUMMARY | 2023-09-18 21:40 | External Medical Summary ---
Author Name Unknown Address Unknown Organization K01:LABORATORY [facility] [place] - [address] [place] [address] Laboratory Report Ordering Provider Test Date Status JAMES LOPEZ 06/22/2023 07:31:00 Final Observation Date Value Abnormality Reference (Units ) Status BUN 06/22/2023 07:31:00 10 6-20 (mg/dL) Final Creatinine 06/22/2023 07:31:00 0.9 0.6-1.2 (mg/dL) Final Glomerular filtration rate/1.73 sq M.predicted [Volume Rate/Area] in Serum, Plasma or Blood by Creatinine-based formula (CKD-EPI) 06/22/2023 07:31:00 >90 >=60 (mL/min) Final eGFR is calculated based on the CKD-EPI 2020 equation Sodium 06/22/2023 07:31:00 137 135-146 (m mol/L) Final Potassium 06/22/2023 07:31:00 3.0 Below low normal 3.5 -5.1 (mmol/L) Final Cl 06/22/2023 07:31:00 99 98-107 (mm ol/L) Final CO2 06/22/2023 07:31:00 25 22-32 (mmo l/L) Final Anion gap 06/22/2023 07:31:00 13 7-15 (mmol /L) Final Glucose 06/22/2023 07:31:00 98 70-120 (mg /dL) Final Calcium 06/22/2023 07:31:00 9.5 8.4-10.2 ( mg/dL) Final Performing Location LABORATORY [facility] [place] - [address] [place] [address]
--- OUTSIDE RECORDS SUMMARY | 2023-09-18 21:40 | External Medical Summary | Summary of Care ---
Author Name Unknown Organization [facility] Address [address] [place] [address] Phone [phone] Care Team Providers Care Interface Control Officer Name Role Phone Kayla Reeder DO Primary Care Provider [phone]- [phone] Encounter Details Date Type Department Care Team (Late st Contact Info) Description 06/22/[address] 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 Farhad was admitted to [place]. 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 They're going to biopsy and send us home. Pain medication has been changed again. Will need a prior auth....just a heads up. He still has kidney stones as well. Begging team to take care of those before discharge. Plan is to keep current appointments with PET scan and oncology. Theyalso mentioned a referral to palliative care. FYI documented in this encounter Plan of Treatment Upcoming Encounters Date Type Department Care Team (Late st Contact Info) Description 06/24/2023 9:45 AM EDT Imaging Radiology, [facility] [address] [place] [place] [id number] 06/29/2023 1:00 PM EDT Office Visit Hematology/Oncology, [address] [address] Mike Chaudhary MD [address] [place] [address] 07/24/2023 12:40 PM EDT Office Visit On License Of [facility], [place] [address] [place] [address] Calin Galloway PA-C [address] [place] [address] 08/26/2023 1:00 PM EDT Office Visit Sleep Disorders, [address] [address] Dave Daigle PA-C [address] [place] [address] Health Maintenance Due Date Last Done Comments Hepatitis C Screening 2006 Hepatitis B (1 of 3 - 19+ 3-dose series) 11/22/2007 Pneumococcal Vaccine: Pediatrics (0 to 5 Years) and At-Risk Patients (6 to 64 Years) (2 of 2 - PCV) 01/23/2018 01/23/2017 COVID-19 Vaccine (1 - season) 2022 Influenza Vaccine (FLU shot) (Season Ended) 2023 11/17/2016, 11/17/2016, 11/30/2015, Additional history exists DTaP,Tdap,and Td Vaccines (7 - Td or Tdap) 10/20/2023 10/19/2013, 10/09/2005, 04/23/1994, Additional history exists Depression Screening 06/10/2024 06/11/2023 GFR 06/21/2024 06/22/2023, 05/0 06/2023, 06/20/2023, Additional history exists Albumin/Creatinine Ratio 08/02/2024 08/02/2021 MENINGOCOCCAL (MENACTRA/MENVEO) Completed 04/09/2007 GARDASIL-HPV IMMUNIZATION SERIES Aged Out No longer eligible based on patient's age to complete this topic documented as of this encounter Medical Devices Not on filedocumented as of this encounter Advance Directives Latest Code Status on File Code Status Date Activated Date Inactivated Comments Full Code 06/20/2023 10:27 PM This order reflects the patients wishes and were consensually agreed upon. Question Answer Comments Discussion of Advance Directives occurred with: Patient Care Teams Interface Control Officer Relationship Specialty Start Date End Date Kayla Reeder DO [address] [facility] ([place], [place]) [place] [address] PCP - General Family Medicine 06/11/23 documented as of this encounter
--- OUTSIDE RECORDS SUMMARY | 2023-09-18 21:40 | External Medical Summary ---
Author Name Unknown Address Unknown Organization K01:LABORATORY [facility] [place] - [address] [place] [address] Laboratory Report Ordering Provider Test Date Status CHANELL FIORE 06/23/2023 06:33:00 Final Observation Date Value Abnormality Reference (Units ) Status Uric Acid 06/23/2023 06:33:00 8.4 Above high normal 3. 4-7.0 (mg/dL) Final Performing Location LABORATORY C - [address] [place] [address]
--- OUTSIDE RECORDS SUMMARY | 2023-09-18 21:40 | External Medical Summary ---
Author Name Unknown Address Unknown Organization K01:[place] [facility] [place] [address] [place] [address] Laboratory Report Ordering Provider Test Date Status JAMES LOPEZ 06/23/2023 06:33:00 Final Warfarin Therapy
INR: 2 .0-3.0 conventional anticoagulation
INR: 2.5- 3.5 high intensity anticoagulation Observation Date Value Abnormality Reference (Units ) Status PT 06/23/2023 06:33:00 13.2 11.6-15.2 (seconds) Final INR 06/23/2023 06:33:00 1.0 0.8-1.2 Final Performing Location LABORATORY C - [address] [place] [address]
--- OUTSIDE RECORDS SUMMARY | 2023-09-18 21:40 | External Medical Summary ---
Author Name Unknown Address Unknown Organization K1F:[facility]ORY [facility] [address] [facility] [address] [place] [address] Laboratory Report Ordering Provider Test Date Status ANNELIESE HENAO 06/20/2023 15:41:00 Final Observation Date Value Abnormality Reference (Units ) Status BUN 06/20/2023 15:41:00 10 6-20 (mg/dL) Final Creatinine 06/20/2023 15:41:00 1.0 0.6-1.2 (mg/dL) Final Glomerular filtration rate/1.73 sq M.predicted [Volume Rate/Area] in Serum, Plasma or Blood by Creatinine-based formula (CKD-EPI) 06/20/2023 15:41:00 >90 >=60 (mL/min) Final eGFR is calculated based on the CKD-EPI 2020 equation Sodium 06/20/2023 15:41:00 138 135-146 (m mol/L) Final Potassium 06/20/2023 15:41:00 3.4 Below low normal 3.5 -5.1 (mmol/L) Final Cl 06/20/2023 15:41:00 98 98-107 (mm ol/L) Final CO2 06/20/2023 15:41:00 24 22-32 (mmo l/L) Final Anion gap 06/20/2023 15:41:00 16 Above high normal 7- 15 (mmol/L) Final Glucose 06/20/2023 15:41:00 112 70-120 (mg /dL) Final Albumin 06/20/2023 15:41:00 4.7 3.8-5.0 (g /dL) Final AST (Aspartate aminotransferase) 06/20/2023 15:41:00 32 10-50 (U/L) Fin al Alk Phos 06/20/2023 15:41:00 95 35-130 (U/ L) Final Bilirubin, Total 06/20/2023 15:41:00 0.6 <=1 .2 (mg/dL) Final Calcium 06/20/2023 15:41:00 9.9 8.4-10.2 ( mg/dL) Final Protein 06/20/2023 15:41:00 7.9 6.0-8.3 (g /dL) Final ALT (Alanine aminotransferase) 06/20/2023 15:41:00 47 10-50 (U/L) Jaswinder mullen Performing Location LABORATORY [facility] [address] [place] [address]
--- OUTSIDE RECORDS SUMMARY | 2023-09-18 21:40 | External Medical Summary ---
Author Name Unknown Address Unknown Organization K01:LABORATORY [facility] - [address] [place] [address] Laboratory Report Ordering Provider Test Date Status JAMES LOPEZ 06/22/2023 07:31:00 Final Observation Date Value Abnormality Reference (Units ) Status Phosphate 06/22/2023 07:31:00 3.3 2.5-4.8 (m g/dL) Final Performing Location LABORATORY [facility] - [address] [place] [address]
--- OUTSIDE RECORDS SUMMARY | 2023-09-18 21:40 | External Medical Summary ---
Author Name Unknown Address Unknown Organization : Laboratory Report Ordering Provider Test Date Status DREW GARAY 06/22/2023 07:31:00 Final Observation Date Value Abnormality Reference (Units ) Status Source 06/22/2023 07:31:00 Whole Blood Final EBV DNA 06/22/2023 07:31:00 [id number] Above high normal (copies/mL) Final EBV DNA 06/22/2023 07:31:00 4.91 Above high normal (Log cps/mL) Final Reference Range: Not Detecte d
For additional information, please refer to
http://education.[employer]/faq/CMVandEBVPCR
(This link is being provided for informational/
educational purposes only.)
This test was developed and its analytical performance
characteristics have been determined by [employer] [facility] [place] It has
not been cleared or approved by the U.S. Food and Drug
Administration. This assay has been validated pursuant
to the CLIA regulations and is used for clinical
purposes.

Test Performed at:
[address]
[address] [facility]
[place], [place] [address]
Mayco Buchanan M.D., Ph.D.,Director of Laboratories Performing Location
--- OUTSIDE RECORDS SUMMARY | 2023-09-18 21:40 | External Medical Summary ---
Author Name Unknown Address Unknown Organization K01:LABORATORY [facility] [place] - [address] [place] [address] Laboratory Report Ordering Provider Test Date Status JAMES LOPEZ 06/24/2023 08:01:00 Final Observation Date Value Abnormality Reference (Units ) Status BUN 06/24/2023 08:01:00 13 6-20 (mg/dL) Final Creatinine 06/24/2023 08:01:00 0.8 0.6-1.2 (mg/dL) Final Glomerular filtration rate/1.73 sq M.predicted [Volume Rate/Area] in Serum, Plasma or Blood by Creatinine-based formula (CKD-EPI) 06/24/2023 08:01:00 >90 >=60 (mL/min) Final eGFR is calculated based on the CKD-EPI 2020 equation Sodium 06/24/2023 08:01:00 137 135-146 (m mol/L) Final Potassium 06/24/2023 08:01:00 3.5 3.5-5.1 (m mol/L) Final Cl 06/24/2023 08:01:00 100 98-107 (mm ol/L) Final CO2 06/24/2023 08:01:00 25 22-32 (mmo l/L) Final Anion gap 06/24/2023 08:01:00 12 7-15 (mmol /L) Final Glucose 06/24/2023 08:01:00 99 70-120 (mg /dL) Final Calcium 06/24/2023 08:01:00 9.9 8.4-10.2 ( mg/dL) Final Performing Location LABORATORY [facility] [place] - [address] [facility] [address]
--- OUTSIDE RECORDS SUMMARY | 2023-09-18 21:40 | External Medical Summary ---
Author Name Unknown Address Unknown Organization K1F:LABORATORY [facility] - [address] [place] [address] Laboratory Report Ordering Provider Test Date Status ANNELIESE HENAO 06/20/2023 15:41:00 Final Observation Date Value Abnormality Reference (Units ) Status WBC, Total 06/20/2023 15:41:00 7.53 4.00-10.80 (K/uL) Final RBC 06/20/2023 15:41:00 4.88 4.50-5.25 (M/uL) Final Hemoglobin 06/20/2023 15:41:00 14.3 14.0-16.8 (g/dL) Final HCT 06/20/2023 15:41:00 40.5 40.0-48.4 (%) Final MCV 06/20/2023 15:41:00 83.0 82.0-99.5 (fL) Final MCH 06/20/2023 15:41:00 29.3 27.0-34.0 (pg) Final MCHC 06/20/2023 15:41:00 35.3 32.0-36.0 (g/dL) Final RDW 06/20/2023 15:41:00 12.1 11.5-15.5 (%) Final Platelets 06/20/2023 15:41:00 234 140-400 (K/uL) Final MPV 06/20/2023 15:41:00 9.8 6.6-11.1 (fL) Final Nucleated erythrocytes/100 leukocytes [Ratio] in Blood by Automated count 06/20/2023 15:41:00 0 <=0 (/100 WBCs) Final Performing Location LABORATORY [facility] - [address] [place] [address]
--- OUTSIDE RECORDS SUMMARY | 2023-09-18 21:40 | External Medical Summary ---
Author Name Unknown Address Unknown Organization K1F:LABORATORY [facility] - [address] [place] [address] Laboratory Report Ordering Provider Test Date Status JULIANOANNELIESE 06/20/2023 15:41:00 Final Observation Date Value Abnormality Reference (Units ) Status Lipase 06/20/2023 15:41:00 14 13-60 (U/L ) Final Performing Location LABORATORY [facility] - [address] [place] [address]
--- OUTSIDE RECORDS SUMMARY | 2023-09-18 21:40 | External Medical Summary ---
Author Name Unknown Address Unknown Organization K01:LABORATORY [facility] - [address] [place] [address] Laboratory Report Ordering Provider Test Date Status JAMES LOPEZ 06/23/2023 06:33:00 Final Observation Date Value Abnormality Reference (Units ) Status Phosphate 06/23/2023 06:33:00 3.6 2.5-4.8 (m g/dL) Final Performing Location LABORATORY [facility] - [address] [place] [address]
--- OUTSIDE RECORDS SUMMARY | 2023-09-18 21:40 | External Medical Summary ---
Author Name Unknown Address Unknown Organization K01:LABORATORY [facility] [place] [address] [place] [address] Laboratory Report Ordering Provider Test Date Status JAMES LOPEZ 06/21/2023 07:08:00 Final Warfarin Therapy
INR: 2 .0-3.0 conventional anticoagulation
INR: 2.5- 3.5 high intensity anticoagulation Observation Date Value Abnormality Reference (Units ) Status PT 06/21/2023 07:08:00 14.3 11.6-15.2 (seconds) Final INR 06/21/2023 07:08:00 1.1 0.8-1.2 Final Performing Location LABORATORY C - [address] [place] [address]
--- OUTSIDE RECORDS SUMMARY | 2023-09-18 21:40 | External Medical Summary ---
Author Name Unknown Address Unknown Organization K1F:LABORATORY [facility] - [address] [facility] [place] [address] Laboratory Report Ordering Provider Test Date Status ANNELIESE HENAO 06/20/2023 17:18:48 Final Observation Date Value Abnormality Reference (Units ) Status Color of Urine by Auto 06/20/2023 17:18:48 Yellow Light Yellow, Yellow, Dark Yellow Final Clarity, Urine 06/20/2023 17:18:48 Clear Clear Final Glucose [Mass/volume] in Urine by Automated test strip 06/20/2023 17:18:48 Negative Negative (mg/dL) Final Bilirubin.total [Presence] in Urine by Automated test strip 06/20/2023 17:18:48 Negative Negative Final Ketones [Mass/volume] in Urine by Automated test strip 06/20/2023 17:18:48 Trace Abnormal Negative (mg/dL) Final Specific gravity, Urine 06/20/2023 17:18:48 1.049 Above high normal 1.003-1.030 Final Hemoglobin [Presence] in Urine by Automated test strip 06/20/2023 17:18:48 Trace Abnormal Negative Final pH, Urine 06/20/2023 17:18:48 5.5 5.0-7.5 (Units) Final Protein [Mass/volume] in Urine by Automated test strip 06/20/2023 17:18:48 Negative Negative (mg/dL) Final Urobilinogen [Mass/volume] in Urine by Automated test strip 06/20/2023 17:18:48 0.2 0.2, 1.0 (mg/dL) Final Nitrite [Presence] in Urine by Automated test strip 06/20/2023 17:18:48 Negative Negative Final Leukocyte esterase [Presence] in Urine by Automated test strip 06/20/2023 17:18:48 Negative Negative Final RBC, Urine 06/20/2023 17:18:48 0-2 0-2 (/HPF) Final WBC, Urine 06/20/2023 17:18:48 0-2 0-2 (/HPF) Final Bacteria [#/area] in Urine sediment by Microscopy high power field 06/20/2023 17:18:48 0-25 0-25 (/HPF) Final CULTURE, URINE - [facility] 06/20/2023 17:18:48 Final Culture not indicated by uri nalysis results\X09\ Performing Location LABORATORY [address] [place] [address]
--- OUTSIDE RECORDS SUMMARY | 2023-09-18 21:40 | External Medical Summary ---
Author Name Unknown Address Unknown Organization K1F:LABORATORY [facility] - [address] [place] [address] Laboratory Report Ordering Provider Test Date Status ANNELIESE HENAO 06/20/2023 15:41:00 Final Observation Date Value Abnormality Reference (Units ) Status Lactic Acid 06/20/2023 15:41:00 1.1 0.4-2.0 (mmol/L) Final Performing Location LABORATORY [facility] - [address] [place] [address]
--- OUTSIDE RECORDS SUMMARY | 2023-09-18 21:40 | External Medical Summary ---
Author Name Unknown Address Unknown Organization K01:LABORATORY [facility] - [address] [place] [address] Laboratory Report Ordering Provider Test Date Status CHANELL FIORE 06/23/2023 12:32:00 Final Observation Date Value Abnormality Reference (Units ) Status LDH 06/23/2023 12:32:00 272 Above high normal <= 250 (U/L) Final Performing Location LABORATORY [facility] - [address] [place] [address]
--- OUTSIDE RECORDS SUMMARY | 2023-09-18 21:40 | External Medical Summary ---
Author Name Unknown Address Unknown Organization K01:LABORATORY [facility] - [address] [place] [address] Laboratory Report Ordering Provider Test Date Status JAMES LOPEZ 06/22/2023 07:31:00 Final Observation Date Value Abnormality Reference (Units ) Status Magnesium 06/22/2023 07:31:00 1.9 1.5-2.6 (m g/dL) Final Performing Location LABORATORY [facility] - [address] [place] [address]
--- OUTSIDE RECORDS SUMMARY | 2023-09-18 21:40 | External Medical Summary ---
Author Name Unknown Address Unknown Organization K01:LABORATORY [facility] [place] - [address] [place] [address] Laboratory Report Ordering Provider Test Date Status DREW GARAY 06/24/2023 16:18:00 Final Observation Date Value Abnormality Reference (Units ) Status Hep A IgM 06/24/2023 16:18:00 Negative Negative Final Hep B Core IgM 06/24/2023 16:18:00 Negative Negat jung Final Hep B surface Ag 06/24/2023 16:18:00 Negative Neg ative Final Hep C Ab 06/24/2023 16:18:00 Negative Negative Final Performing Location LABORATORY C - [address] [place] [address]
--- OUTSIDE RECORDS SUMMARY | 2023-09-18 21:40 | External Medical Summary ---
Author Name Unknown Address Unknown Organization K1F:LABORATORY [facility] - [address] [facility]. [place] [address] Laboratory Report Ordering Provider Test Date Status ANNELIESE HENAO 06/20/2023 15:41:00 Final Observation Date Value Abnormality Reference (Units ) Status SYNC LEUKOCYTES IN BLOOD BY AUTOMATED COUNT 06/20/2023 15:41:00 7.53 4.00-10.80 (K/uL) Final Segs 06/20/2023 15:41:00 56.6 40.0-75.0 (%) Final Lymphs % 06/20/2023 15:41:00 29.2 18.0-42.0 (%) Final Monos 06/20/2023 15:41:00 12.7 Above high normal 1.0-11.0 (%) Final Eosinophils 06/20/2023 15:41:00 0.5 0.0-6.0 (%) Final Basos 06/20/2023 15:41:00 0.7 0.0-2.0 (%) Final Immature Granulocyte, Percent 06/20/2023 15:41:00 0.3 0.0-2.0 (%) Final Absolute Segs 06/20/2023 15:41:00 4.26 1.80-7.70 (K/uL) Final Lymphs, absolute 06/20/2023 15:41:00 2.20 1.00-4.80 (K/ul) Final Monos, Abs 06/20/2023 15:41:00 0.96 0.00-1.10 (K/uL) Final Eos, Abs 06/20/2023 15:41:00 0.04 0.00-0.70 (K/uL) Final Basos, Abs 06/20/2023 15:41:00 0.05 0.00-0.20 (K/uL) Final Immature Granulocytes, Number 06/20/2023 15:41:00 0.02 0.00-0.20 (K/uL) Final Performing Location LABORATORY [facility] - [address] [place] [address]
--- OUTSIDE RECORDS SUMMARY | 2023-09-18 21:40 | External Medical Summary ---
Author Name Unknown Address Unknown Organization [id number]:LABORATORY [facility] [place] - [address] [facility] [address] Laboratory Report Ordering Provider Test Date Status RADHA HERRING 06/24/2023 18:48:15 Final Observation Date Value Abnormality Reference (Units ) Status Campylobacter sp DNA.diarrheagenic [Presence] in Stool by FARIDA with probe detection 06/24/2023 18:48:15 Negative Negative Final Salmonella sp rpoD gene [Presence] in Stool by FARIDA with probe detection 06/24/2023 18:48:15 Negative Negative Final Shigella species+EIEC invasion plasmid antigen H ipaH gene [Presence] in Stool by FARIDA with probe detection 06/24/2023 18:48:15 Negative Negative Final Vibrio sp DNA [Identifier] in Specimen by FARIDA with probe detection 06/24/2023 18:48:15 Negative Negative Final Yersinia enterocolitica recN gene [Presence] in Stool by FARIDA with probe detection 06/24/2023 18:48:15 Negative Negative Final Escherichia coli Stx1 toxin stx1 gene [Presence] in Stool by FARIDA with probe detection 06/24/2023 18:48:15 Negative Negative Final Escherichia coli Stx2 toxin stx2 gene [Presence] in Stool by FARIDA with probe detection 06/24/2023 18:48:15 Negative Negative Final Norovirus genogroups I and II RNA panel - Stool by FARIDA with probe detection 06/24/2023 18:48:15 Negative Negative Final Rotavirus A RNA [Presence] in Stool by FARIDA with probe detection 06/24/2023 18:48:15 Negative Negative Final Performing Location LABORATORY [facility] [place] - [address] [facility] [address]
--- OUTSIDE RECORDS SUMMARY | 2023-09-18 21:40 | External Medical Summary ---
Author Name Unknown Address Unknown Organization [id number]:[place]ORY [facility] [place] [facility] [address] [facility] [address] Laboratory Report Ordering Provider Test Date Status DREW GARAY 06/24/2023 16:18:00 Final Observation Date Value Abnormality Reference (Units ) Status HIV 1+2 Ab+HIV1 p24 Ag [Presence] in Serum or Plasma by Immunoassay 06/24/2023 16:18:00 Negative Negative Final Negative HIV-1/2 antigen and antibody screening tset results usually indicate the absence of HIV-1 and HIV-2 infection. However, such negative results do not rule-out acute HIV infection. If acute HIV-1 infection is highly suspected, it is recommended that a specimen be submitted for detection of HIV-1 RNA. Performing Location LAB[place]ATORY [facility] [place] [address] [facility] [address]
--- OUTSIDE RECORDS SUMMARY | 2023-09-18 21:40 | External Medical Summary ---
Author Name Unknown Address Unknown Organization [id number]:[place] [facility] [place] [address] [place] [address] Laboratory Report Ordering Provider Test Date Status JAMES LOPEZ 06/23/2023 06:33:00 Final Observation Date Value Abnormality Reference (Units ) Status WBC, Total 06/23/2023 06:33:00 9.13 4.00-10.80 (K/uL) Final RBC 06/23/2023 06:33:00 4.87 4.50-5.25 (M/uL) Final Hemoglobin 06/23/2023 06:33:00 14.4 14.0-16.8 (g/dL) Final HCT 06/23/2023 06:33:00 41.8 40.0-48.4 (%) Final MCV 06/23/2023 06:33:00 85.8 82.0-99.5 (fL) Final MCH 06/23/2023 06:33:00 29.6 27.0-34.0 (pg) Final MCHC 06/23/2023 06:33:00 34.4 32.0-36.0 (g/dL) Final RDW 06/23/2023 06:33:00 12.3 11.5-15.5 (%) Final Platelets 06/23/2023 06:33:00 257 140-400 (K/uL) Final MPV 06/23/2023 06:33:00 10.1 6.6-11.1 (fL) Final Nucleated erythrocytes/100 leukocytes [Ratio] in Blood by Automated count 06/23/2023 06:33:00 0 <=0 (/100 WBCs) Final Performing Location LAB[facility]ORY [facility] [place] [address] [place] [address]
--- OUTSIDE RECORDS SUMMARY | 2023-09-18 21:40 | External Medical Summary | Summary of Care ---
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 [address] [place] [place] [address] 06/29/2023 1:00 PM EDT Office Visit Hematology/Oncology, [facility] [address] [place] [address] Mike Chaudhary MD [address] [place] [address] 07/24/2023 12:40 PM EDT Office Visit [facility] [place] [address] [place] [address] Calin Galloway PA-C [address] [place] [address] 08/26/2023 1:00 PM EDT Office Visit Sleep Disorders, [address] [address] Dave Daigle PA-C [address] [place] [address] Health Maintenance Due Date Last Done Comments Hepatitis C Screening 2006 Hepatitis B (1 of 3 - 19+ 3-dose series) 11/22/2007 Pneumococcal Vaccine: Pediatrics (0 to 5 Years) and At-Risk Patients (6 to 64 Years) (2 of 2 - PCV) 01/23/2018 01/23/2017 COVID-19 Vaccine (1 - 2022- season) 2022 Influenza Vaccine (FLU shot) (Season Ended) 2023 11/17/2016, 11/17/2016, 11/30/2015, Additional history exists DTaP,Tdap,and Td Vaccines (7 - Td or Tdap) 10/20/2023 10/19/2013, 10/09/2005, 04/23/1994, Additional history exists Depression Screening 06/10/2024 06/11/2023 GFR 06/20/2024 06/21/2023, 05/0 05/2023, 06/19/2023, Additional history exists Albumin/Creatinine Ratio 08/02/2024 08/02/2021 MENINGOCOCCAL (MENACTRA/MENVEO) Completed 04/09/2007 GARDASIL-HPV IMMUNIZATION SERIES Aged Out No longer eligible based on patient's age to complete this topic documented as of this encounter Medical Devices Not on filedocumented as of this encounter Procedures Procedure Name Priority Date/Time Associated Diagnosis Comments RADIOLOGY SCANNED RESULT 06/19/2023 documented in this encounter Results * RADIOLOGY SCANNED RESULT (06/19/2023) 06/19/2023 No Physician Data Unknown DIAGNOSTIC RAD IOLOGY SERVICES documented in this encounter Advance Directives Latest Code Status on File Code Status Date Activated Date Inactivated Comments Full Code 06/20/2023 10:27 PM This order reflects the patients wishes and were consensually agreed upon. Question Answer Comments Discussion of Advance Directives occurred with: Patient Care Teams Aesthetics Instructor Relationship Specialty Start Date End Date Kayla Reeder DO [address] [facility] [place] [place] [address] PCP - General Family Medicine 06/11/23 documented as of this encounter
--- OUTSIDE RECORDS SUMMARY | 2023-09-18 21:40 | External Medical Summary | Summary of Care ---
Author Name Unknown Organization [facility] Address [address] [place] [address] Phone [phone] Care Team Providers Care Sequins Spooler Name Role Phone aKyla Reeder DO Primary Care Provider +1- [phone] Encounter Details Date Type Department Care Team (Late st Contact Info) Description 06/22/2023 Orders Only Family Practice [facility] [place] [address] [place] [address] Kayla Reeder DO [address] [place] [address] Allergies No known active allergiesdocumented [...] Description 06/24/2023 9:45 AM EDT Imaging Radiology, [address] [place] [id number] 06/29/2023 1:00 PM EDT Office Visit Hematology/Oncology, [address] [place] [address] Mike Chaudhary MD [address] [facility] [place] [address] 07/24/2023 12:40 PM EDT Office Visit Family Practice [address] [place] [address] Calin Galloway PA-C [address] [place] [address] 08/26/2023 1:00 PM EDT Office Visit Sleep Disorders, [facility] [address] [facility] [place] [address] Dave Daigle PA-C [address] [place] [address] Health Maintenance Due Date Last Done Comments Hepatitis C Screening 2006 Hepatitis B (1 of 3 - 19+ 3-dose series) 11/22/2007 Pneumococcal Vaccine: Pediatrics (0 to 5 Years) and At-Risk Patients (6 to 64 Years) (2 of 2 - PCV) 01/23/2018 01/23/2017 COVID-19 Vaccine ( - season) 2022 Influenza Vaccine (FLU shot) [...] Priority Date/Time Associated Diagnosis Comments CHEMISTRY-OUTSIDE Routine 06/19/2023 documented in this encounter Results * (ABNORMAL) CHEMISTRY-OUTSIDE (06/19/2023) Not all results display below - see scan for full detail OUTSIDE LAB (SEE SCANNED REPORT) Comment:SCAN INCLUDES - E.R. LABS: CBCD, LACTIC ACID, CMP, LIPASE, MAGNESIUM CREATININE-OUTSID E LAB 1.10 0.40 - 1.50 MG/DL OUTSIDE LAB (SEE SCANNED REPORT) EGFR-OUTSIDE LAB 90 >=60 ML/MIN/1.7 3M2 OUTSIDE LAB (SEE SCANNED REPORT) POTASSIUM-OUTSIDE LAB 3.2(A) 3.6 - 5.0 MMOL/L OUTSIDE LAB (SEE SCANNED REPORT) GLUCOSE-OUTSIDE LAB 97 65 - 110 MG/DL OUTSIDE LAB (SEE [...] LAB OUTSIDE LAB (SEE SCANNED REPORT) HEMOGLOBIN, [id number] LAB OUTSIDE LAB (SEE SCANNED REPORT) PHOSPHORUS-OUTSID E LAB OUTSIDE LAB (SEE SCANNED REPORT) PTH-OUTSIDE LAB OUTS [place] LAB (SEE SCANNED REPORT) MICROALBUMIN RATIO-OUTSIDE LAB OUTSIDE LA B (SEE SCANNED REPORT) PROTEIN, UA-OUTSIDE LAB OUTSIDE LAB (SEE SCANNED REPORT) HGB 13.8(A) 14.0 - 18.0 GM/DL OUTSIDE LAB (SEE SCANNED REPORT) 06/19/2023 Abdullahi Mohamud MD LABORATORY OUTSIDE LAB (SEE SCANNED REPORT) documented in this encounter Advance Directives Latest Code Status on File Code Status Date Activated Date Inactivated Comments Full Code 06/20/2023 10:27 PM This order reflects the patients wishes and were consensually agreed upon. Question Answer Comments Discussion of Advance Directives occurred with: Patient Care Teams Sequins Spooler Relationship Specialty Start Date End Date Kayla Reeder DO [address] [facility] [place] [place] [address] PCP - General Family Medicine 06/11/23 documented as of this encounter
--- OUTSIDE RECORDS SUMMARY | 2023-09-18 21:40 | External Medical Summary ---
Author Name Unknown Address Unknown Organization [id number]:LABORATORY [facility] [place] - [address] [place] [address] Laboratory Report Ordering Provider Test Date Status RADHA HERRING 06/24/2023 18:48:15 Final Observation Date Value Abnormality Reference (Units) Status Bacteria identified in Specimen by Culture 06/24/2023 18:48:15 No Aeromonas species or Plesiomonas species isolated. Final Test: Gastrointestinal Patho gen Panel Culture
Specimen Source: Stool
Specimen Type: Stool
Specimen Date: 06/24/2023 6:48 PM
Result Date: 06/26/2023 11:53 AM
Result Status: Final result
Resulting Lab: LABORATORY [facility] [place]
[address]
[place] [address]

CULTURE

No Aeromonas species or Plesiomonas species isolated.

null Performing Location LABORATORY [facility] [place] - [address] [place] [address]
--- OUTSIDE RECORDS SUMMARY | 2023-09-18 21:40 | External Medical Summary ---
Author Name Unknown Address Unknown Organization : Laboratory Report Ordering Provider Test Date Status JAMES LOPEZ 06/22/2023 12:37:00 Final Observation Date Value Abnormality Reference (Units ) Status REFERENCE LAB SCANNED REPORT 06/22/2023 12:37:00 See Scanned Report Final Performing Location
--- OUTSIDE RECORDS SUMMARY | 2023-09-18 21:40 | External Medical Summary ---
Author Name Unknown Address Unknown Organization [id number]:[place] [facility] [place] [address] [place] [address] Laboratory Report Ordering Provider Test Date Status CHANELL FIORE 06/24/2023 08:01:00 Final Observation Date Value Abnormality Reference (Units ) Status Uric Acid 06/24/2023 08:01:00 8.7 Above high normal 3. 4-7.0 (mg/dL) Final Performing Location LABORATORY [facility] - [address] [place] [address]
--- OUTSIDE RECORDS SUMMARY | 2023-09-18 21:40 | External Medical Summary ---
Author Name Unknown Address Unknown Organization [id number]:LABORATORY [facility] [place] - [address] [place] [address] Laboratory Report Ordering Provider Test Date Status JAMES LOPEZ 06/24/2023 08:01:00 Final Observation Date Value Abnormality Reference (Units ) Status WBC, Total 06/24/2023 08:01:00 7.75 4.00-10.80 (K/uL) Final RBC 06/24/2023 08:01:00 4.81 4.50-5.25 (M/uL) Final Hemoglobin 06/24/2023 08:01:00 14.0 14.0-16.8 (g/dL) Final HCT 06/24/2023 08:01:00 40.6 40.0-48.4 (%) Final MCV 06/24/2023 08:01:00 84.4 82.0-99.5 (fL) Final MCH 06/24/2023 08:01:00 29.1 27.0-34.0 (pg) Final MCHC 06/24/2023 08:01:00 34.5 32.0-36.0 (g/dL) Final RDW 06/24/2023 08:01:00 12.3 11.5-15.5 (%) Final Platelets 06/24/2023 08:01:00 248 140-400 (K/uL) Final MPV 06/24/2023 08:01:00 10.1 6.6-11.1 (fL) Final Nucleated erythrocytes/100 leukocytes [Ratio] in Blood by Automated count 06/24/2023 08:01:00 0 <=0 (/100 WBCs) Final Performing Location LABORATORY [facility] - [address] [place] [address]
--- OUTSIDE RECORDS SUMMARY | 2023-09-18 21:40 | External Medical Summary ---
Author Name Unknown Address Unknown Organization K01:LABORATORY [facility] - [address] [place] [address] Laboratory Report Ordering Provider Test Date Status RADHA HERRING 06/24/2023 18:48:15 Final Observation Date Value Abnormality Reference (Units) Status Source 06/24/2023 18:48:15 Liquid Final Clostridioides difficile toxin and [id number] strain DNA panel - Stool by FARIDA with probe detection 06/24/2023 18:48:15 Negative. No C. difficile toxin B gene DNA detected by PCR (Amplified Probe). Negative Final Performing Location LABORATORY [facility] - [address] [place] [address]
--- OUTSIDE RECORDS SUMMARY | 2023-09-18 21:40 | External Medical Summary ---
Author Name Unknown Address Unknown Organization K01:LABORATORY [facility] - [address] [place] [address] Laboratory Report Ordering Provider Test Date Status JAMES LOPEZ 06/24/2023 08:01:00 Final Observation Date Value Abnormality Reference (Units ) Status Magnesium 06/24/2023 08:01:00 2.0 1.5-2.6 (m g/dL) Final Performing Location LABORATORY [facility] - [address] [place] [address]
--- OUTSIDE RECORDS SUMMARY | 2023-09-18 21:40 | External Medical Summary ---
Author Name Unknown Address Unknown Organization K01:[place] [facility] [place] [address] [place] [address] Laboratory Report Ordering Provider Test Date Status JAMES LOPEZ 06/24/2023 08:01:00 Final Warfarin Therapy
INR: 2 .0-3.0 conventional anticoagulation
INR: 2.5- 3.5 high intensity anticoagulation Observation Date Value Abnormality Reference (Units ) Status PT 06/24/2023 08:01:00 13.4 11.6-15.2 (seconds) Final INR 06/24/2023 08:01:00 1.0 0.8-1.2 Final Performing Location LABORATORY [facility] - [address] [place] [address]
--- OUTSIDE RECORDS SUMMARY | 2023-09-18 21:40 | External Medical Summary ---
Author Name Unknown Address Unknown Organization K01:LABORATORY [facility] - [address] [place] [address] Laboratory Report Ordering Provider Test Date Status JAMES LOPEZ 06/23/2023 06:33:00 Final Observation Date Value Abnormality Reference (Units ) Status Magnesium 06/23/2023 06:33:00 2.1 1.5-2.6 (m g/dL) Final Performing Location LABORATORY [facility] - [address] [place] [address]
--- OUTSIDE RECORDS SUMMARY | 2023-09-18 21:40 | External Medical Summary ---
Author Name Unknown Address Unknown Organization [id number]:LABORATORY [facility] [place] - [address] [place] [address] Laboratory Report Ordering Provider Test Date Status JAMES LOPEZ 06/22/2023 07:31:00 Final Observation Date Value Abnormality Reference (Units ) Status WBC, Total 06/22/2023 07:31:00 9.47 4.00-10.80 (K/uL) Final RBC 06/22/2023 07:31:00 4.37 4.50-5.25 (M/uL) Final Hemoglobin 06/22/2023 07:31:00 13.1 Below low normal 14.0-16.8 (g/dL) Final HCT 06/22/2023 07:31:00 37.2 Below low normal 40.0-48.4 (%) Final MCV 06/22/2023 07:31:00 85.1 82.0-99.5 (fL) Final MCH 06/22/2023 07:31:00 30.0 27.0-34.0 (pg) Final MCHC 06/22/2023 07:31:00 35.2 32.0-36.0 (g/dL) Final RDW 06/22/2023 07:31:00 12.2 11.5-15.5 (%) Final Platelets 06/22/2023 07:31:00 217 140-400 (K/uL) Final MPV 06/22/2023 07:31:00 10.0 6.6-11.1 (fL) Final Nucleated erythrocytes/100 leukocytes [Ratio] in Blood by Automated count 06/22/2023 07:31:00 0 <=0 (/100 WBCs) Final Performing Location LABORATORY [facility] [place] - [address] [place] [address]
--- OUTSIDE RECORDS SUMMARY | 2023-09-18 21:40 | External Medical Summary ---
Author Name Unknown Address Unknown Organization K01:[facility]ORY [facility] [place] [address] [facility] [address] Laboratory Report Ordering Provider Test Date Status JAMES LOPEZ 06/21/2023 07:08:00 Final Observation Date Value Abnormality Reference (Units ) Status WBC, Total 06/21/2023 07:08:00 8.21 4.00-10.80 (K/uL) Final RBC 06/21/2023 07:08:00 4.47 4.50-5.25 (M/uL) Final Hemoglobin 06/21/2023 07:08:00 13.1 Below low normal 14.0-16.8 (g/dL) Final HCT 06/21/2023 07:08:00 37.8 Below low normal 40.0-48.4 (%) Final MCV 06/21/2023 07:08:00 84.6 82.0-99.5 (fL) Final MCH 06/21/2023 07:08:00 29.3 27.0-34.0 (pg) Final MCHC 06/21/2023 07:08:00 34.7 32.0-36.0 (g/dL) Final RDW 06/21/2023 07:08:00 12.3 11.5-15.5 (%) Final Platelets 06/21/2023 07:08:00 222 140-400 (K/uL) Final MPV 06/21/2023 07:08:00 10.1 6.6-11.1 (fL) Final Nucleated erythrocytes/100 leukocytes [Ratio] in Blood by Automated count 06/21/2023 07:08:00 0 <=0 (/100 WBCs) Final Performing Location LABORATORY [facility] - [address] [place] [address]
--- OUTSIDE RECORDS SUMMARY | 2023-09-18 21:41 | External Medical Summary | Summary of Care ---
Author Name Unknown Organization [facility] Address [address] [place] [address] Phone [phone] Care Team Providers Care Programming Development Project Manager Name Role Phone Kayla Reeder DO Primary Care Provider +1- [phone] Reason for Visit * Reason Onset Date Comments Pre Cert/Prior Auth 06/12/2023 Encounter Details Date Type Department Care Team ([facility] Contact Info) Description 06/12/2023 [facility] [address] [place] [address] Kayla Reeder DO [address] [place] [address] Pre Cert/Prior Auth Allergies No known active allergiesdocumented as of this encounter (statuses as of 06/18/2023) Medications Medication Sig Dispensed Refills Start Date End Date Status ASPIRIN 81 MG PO TABS one tablet daily 0 Active Acetaminophen-Codei ne 300-30 MG Oral TabletIndications:C erebral vasculitis 0 09/20/2021 Active Topiramate 100 MG Oral Tablet (topAMAX) [...] BEFORE BEDTIME 60 Each 5 06/11/2023 Active oxyCODONE-Acetamino phen 5-325 MG Oral Tablet (Percocet)Indicatio ns:Retroperitoneal mass Take 1 Tablet by mouth every 6 hours as needed (Pain). 30 Tablet 0 06/11/2023 Active documented as of this encounter (statuses as of 06/18/2023) Active Problems Problem Noted Date Diagnosed Date [...] as of this encounter (statuses as of 06/18/2023) Resolved Problems Problem Noted Date Diagnosed Date [...] as of this encounter (statuses as of 06/18/2023) Immunizations Name Administration Dates Next Due DT [...] encounter Miscellaneous Notes * Telephone Encounter - Mahsa Pascual CPhT - 06/18/2023 10:09 AM EDT [facility] is calling with concerns about patients Oxycodone RX, states that there is now a PA pending through an outside rheumatology office for Tylenol with codeine. Transferred [facility] to [place] in office after consulting [facility]. Thank you, Mahsa Pascual Computer Help Desk Representative [facility]ized Clinical Pharmacy Services (CCPS) (Formerly Telepharmacy) 06/18/2023,10:20 AM * Telephone Encounter - Fransisco Cano keysmith - 06/16/2023 12:11 PM EDT Patients insurance would like to inform the office that Oxycodone is approved until 12/16/2023. Patient and pharmacy made aware by [facility]. Information will be faxed to the office. Thank You, Fransisco Cano [facility] Computer Help Desk Representative II Centralized Clinical Pharmacy Services (Formerly Telepharmacy) 06/16/2023, 12:11 PM * Telephone Encounter - Jeannette Selby LPN - 06/16/2023 12:01 PM EDT Called and spoke to mother, after Dr. Reeder completed the call. Plan has approved pain medication for pt. Mother aware, and very appreciative. * Telephone Encounter - Jeannette Selby LPN - 06/16/2023 11:03 AM EDT Logged on to cover my meds, does show as being completed, waiting for decision from health plan. Gave all info, they see a denial on yesterday, denial for not knowing moderate to severe, no documentation that pt failed tylenol and anti inflammatories. They will offer a peer to peer, must speak to Dr. Reeder. Doctor will call the office directly, on the back line, and will ask to speak with Jeannette. Please get me, even if I am in a room with anotherpatient. Ref [id number] Longest is 48 hours, so this should happen very quickly. This is an urgent request. Called and spoke to pts mother to update her. She is very tearful, but very appreciative. * Telephone Encounter - Navya Oliver LPN - 06/16/2023 10:37 AM EDT Mother calling, she is very upset that the prior auth has not come back for his pain medication. Pt has a mass and dealing with a lot of pain. He can't keep going back to the ER for pain medication. "It makes him look like a drug seeker." She states this needs done or she will come into the office to make a compliant. I tried to explain the prior auth was started and waiting for reply from insurance but she interrupted me, "Get it done now!" She then disconnected call. * Telephone Encounter - Xin Dominguez LPN - 06/15/2023 10:25 AM EDT Prior auth completed on Cover My Meds * Telephone Encounter - Radha Vanegas PHARM Tech - 06/15/2023 9:35 AM EDT Upon review of this prior authorization request, I verified [facility] is not delegated to complete priorauthorizations for this medication. Forwarding request to appropriate location. Thank you, Radha Vanegas, [facility] Garageman Natural Foods Clerk Centralized Clinical Pharmacy Services (CCPS)(formerly Telepharmacy) 06/15/2023,9:35 AM * Telephone Encounter - Kayla Reeder DO - 06/15/2023 8:59 AM EDT Can we please follow up with this today Thank you * Telephone Encounter - Ramila Vasquez LPN - 06/15/2023 8:38 AM EDT Patients mother, Anne-Marie is calling. Her son had to go all weekend without pain medicine. She is veryupset. He is a single dad looking at a diagnosis of cancer. Wants the prior auth done today. He has had no percocet since . She bought him tylenol and ibuprofen. Has him alternating maximum doses of each every 3 hours. It is not helping at all. His pain is an 8 or 9 out of 10. She was set up for [place] when she specifically requested [place] for oncology and a PET scan. Offered to send [facility] to [facility]. Wants this message sent to [place] and wants a call back from them. * Telephone Encounter - Jeannette Selby LPN - 06/12/2023 3:31 PM EDT Requested prior auth from insurance company. Will also send to prior auth pool. * Telephone Encounter - Navya Oliver LPN - 06/12/2023 1:39 PM EDT Mom calling, pt's percocet sent to the pharmacy yesterday needs a prior auth. He will be out of medication from the hospital Rx. documented in this encounter Plan of Treatment Upcoming Encounters Date Type Department Care Team (Late Contact Info) Description 06/24/2023 9:45 AM EDT Imaging Radiology, [facility] [address] [place] [id number] 06/29/2023 1:00 PM EDT Office Visit Hematology/Oncology, [address] [address] Mike Chaudhary MD [address] [place], [place] [id number] 07/24/2023 12:40 PM EDT Office Visit [facility], [place] [address] [place] [address] Calin Galloway PA-C [address] [place] [address] 08/26/2023 1:00 PM EDT Office Visit Sleep Disorders, [address] [address] Dave Daigle PA-C [address] [place] [address] Health Maintenance Due Date Last Done Comments [...] 10/20/2023 10/19/2013, 10/09/2005, 04/23/1994, Additional history exists GFR 06/09/2024 06/10/2023, 05/18, 06/01/2023, Additional history exists Depression Screening 06/10/2024 06/11/2023 Albumin/Creatinine Ratio 08/02/2024 08/02/2021 MENINGOCOCCAL (MENACTRA/MENVEO) Completed 04/09/2007 GARDASIL-HPV IMMUNIZATION SERIES Aged Out No longer eligible based on patient's age to complete this topic documented as of this encounter Medical Devices Not on filedocumented as of this encounter Care Teams Programming Development Project Manager Relationship Specialty Start Date End Date Kayla Reeder DO [address] [facility] [place] [place] [address] PCP - General Family Medicine 06/11/23 documented as of this encounter
--- OUTSIDE RECORDS SUMMARY | 2023-09-18 21:41 | External Medical Summary | Summary of Care ---
Author Name Unknown Organization [facility] Address [address] [place] [address] Phone [phone] Care Team Providers Care Credit Report Checker Name Role Phone Kayla Reeder DO Primary Care Provider +1- [phone] Encounter Details Date Type Department Care Team ([facility] st Contact Info) Description 06/18/2023 Telephone Family Practice [facility] [address] [place] [address] Kayla Reeder DO [address] [place] [address] Allergies No known active allergiesdocumented [...] encounter Miscellaneous Notes * Telephone Encounter - Kayla Reeder DO - 06/18/2023 10:34 AM EDT Patient should be taking oxycodone Please call rheum and inform them of 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 At this point T3 has not been filled but oxycodone claim did come through on the . Asking what medication pt should be on, please advise. Direct line for Dr Gray [phone] ext [phone] Will need to contact [facility] with what recommendation is: [phone] documented in this encounter Plan of Treatment Upcoming Encounters Date Type Department Care Team (Late st Contact Info) Description 06/24/2023 9:45 AM EDT [facility] Rad[facility], [facility] [address] [place] [address] [place] [id number] 06/29/2023 1:00 PM EDT Office Visit Hematology/Oncology, [facility] [address] [place] [place] [address] Mike Chaudhary MD [address] [facility] ER[address]ST [place] [address] 07/24/2023 12:40 PM EDT Office Visit [facility] Mar[place] Garcia [address] [place] [address] Calin Galloway PA-C [address] [place] [address] 08/26/2023 1:00 PM EDT Office Visit Sleep Disorders, [facility] [address] [place] [address] Dave Daigle PA-C [address] [place] [address] Health Maintenance Due Date Last Done Comments [...] filedocumented as of this encounter Care Teams Credit Report Checker Relationship Specialty Start Date End Date Kayla Reeder DO [address] [place] [address] PCP - General Family Medicine 06/11/23 documented as of this encounter
--- OUTSIDE RECORDS SUMMARY | 2023-09-18 21:41 | External Medical Summary | Summary of Care ---
Author Name Unknown Organization [facility] Address [address] [place] [address] Phone [phone] Care Team Providers Care Float Phlebotomist Name Role Phone VarinderMelissaie Tricia DO Primary Care Provider +1- [phone] Reason for Visit * Reason Onset Date Comments Scheduling 06/17/2023 Encounter Details Date Type Department Care Team ([facility] st Contact Info) Description 06/17/2023 Telephone Interventional Radiology, [facility] [address] [place], [place] [id number] Inocente Rutherford MD [address] [place] [address] Scheduling Allergies No known active allergiesdocumented as of this encounter (statuses as of 06/17/2023) Medications Medication Sig Dispensed Refills Start Date [...] as of this encounter (statuses as of 06/17/2023) Active Problems Problem Noted Date Diagnosed Date [...] as of this encounter (statuses as of 06/17/2023) Resolved Problems Problem Noted Date Diagnosed Date [...] as of this encounter (statuses as of 06/17/2023) Immunizations Name Administration Dates Next Due DT [...] encounter Miscellaneous Notes * Telephone Encounter - Jaelyn Watson OSA - 06/17/2023 8:52 AM EDT Called patient to schedule Retroperitoneal biopsy. No answer. Left message for patient to return call. documented in this encounter Plan of Treatment Upcoming Encounters Date Type Department Care Team (Latest Contact Info) Description 06/23/2023 9:40 AM EDT Hospital Encounter OR [facility], Operating Room, [facility] - 4th Floor [address] [place] [place] [address] Tree Stout MD [address] [facility] [address] [place] [place] [address] 06/23/2023 9:40 AM EDT - 06/23/2023 10:50 AM EDT Surgery OR [facility], Operating Room, [facility] - 4th Floor [address] [place] [address] [place] [address] Tree Stout MD 27 [facility] [address] [place] [address] LEFT LITHOTRIPSY EXTRACORPOREAL SHOCK WAVE 06/24/2023 9:45 AM EDT Imaging Radiology, [address] [place] [place] [address] 06/29/2023 1:00 PM EDT Office Visit Hematology/Oncolog , [address] [place] [address] Mike [facility]audhary MD [address] [facility] [place] [address] 07/24/2023 12:40 PM EDT Office Visit [facility] [place], [place] [address] [place] [address] [place] [place] [address] Calin Galloway PA-C [address] [place] [place] [address] 08/26/2023 1:00 PM EDT Office Visit Sleep Disorders, [facility] [address] [facility] [place] [id number] Dave Daigle PA-C [address] [facility] [address] Scheduled Procedures Name Priority Associated Diagnoses Date/Ti me LITHOTRIPSY EXTRACORPOREAL S HOCK WAVE Kidney stones 06/23/2023 9:40 AM EDT Health Maintenance Due Date Last [...] filedocumented as of this encounter Care Teams Float Phlebotomist Relationship Specialty Start Date End Date Kayla Reeder DO [address] [place] [place] [address] PCP - General Family Medicine 06/11/23 documented as of this encounter
--- OUTSIDE RECORDS SUMMARY | 2023-09-18 21:41 | External Medical Summary | Summary of Care ---
Author Name Unknown Organization [facility] Address [address] [place] [address] Phone [phone] Care Team Providers Care Senior Data Modeler Name Role Phone Kayla Reeder DO Primary Care Provider +1- [phone] Reason for Visit * Reason Onset Date Comments Pre Cert/Prior Auth 06/12/2023 Encounter Details Date Type Department Care Team ([facility] Contact Info) Description 06/12/2023 [facility] [address] [place] [address] Kayla Reeder DO [address] [place] [address] Pre Cert/Prior Auth Allergies No known active allergiesdocumented as of this encounter (statuses as of 06/15/2023) Medications Medication Sig Dispensed Refills Start Date [...] as of this encounter (statuses as of 06/15/2023) Active Problems Problem Noted Date Diagnosed Date [...] as of this encounter (statuses as of 06/15/2023) Resolved Problems Problem Noted Date Diagnosed Date [...] as of this encounter (statuses as of 06/15/2023) Immunizations Name Administration Dates Next Due DT [...] of this prior authorization request, I verified [facility] is not delegated to complete priorauthorizations for this medication. Forwarding request to appropriate location. Thank you, Radha Vanegas [facility] Family Engagement Specialist Machine Cementer And Folder Centralized Clinical Pharmacy Services (CCPS)(formerly Telepharmacy) 06/15/2023,9:35 [...] of 10. She was set up for [place] when she specifically requested [place] for oncology and a PET scan. Offered to send her to scheduling. Wants this message sent to [place] and wants a call back from them. [...] 06/23/2023 9:40 AM EDT Hospital Encounter OR [facility], Operating Room, [facility] - 4th Floor [address] [place] [address] [place] [address] Tree Stout MD [address] [facility] [address] [place] [address] 06/23/2023 9:40 AM EDT - 06/23/2023 10:50 AM EDT Surgery OR [facility], Operating Room, [facility] 4th Floor [address] [place] [address] [place] [address] Tree Stout MD [address] [place] [address] [place] [address] LEFT LITHOTRIPSY EXTRACORPOREAL SHOCK WAVE 06/24/2023 9:45 AM EDT Imaging Radiology, [place] [place] [address] 06/29/2023 1:00 PM EDT Office Visit Hematology/Oncolog , [address] [place] [place] [address] Mike Chaudhary MD [address] [place] [address] 07/16/2023 1:30 PM EDT [place] [facility] [place] [address] [place] [address] [place] [address] Namrata Jorgensen PA-C [address] [place] [address] [place] [address] 07/24/2023 12:40 PM EDT Office Visit Family Practice [place] [address] [place] [address] Calin Galloway PA-C [address] [place] [address] 08/26/2023 1:00 PM EDT Office Visit Sleep Disorders, [facility] 400 [facility] [place] [address] Dave Daigle PA-C [address] [place] [address] Scheduled Procedures Name Priority Associated Diagnoses Date/Ti [...] PCV) 01/23/2018 01/23/2017 COVID-19 Vaccine (1 - 2022-24 season) 2022 Influenza Vaccine (FLU [...] filedocumented as of this encounter Care Teams Senior Data Modeler Relationship Specialty Start Date End Date Kayla Reeder DO [address] [facility] [place] [place] [address] PCP - General Family Medicine 06/11/23 documented as of this encounter
--- OUTSIDE RECORDS SUMMARY | 2023-09-18 21:41 | External Medical Summary | Summary of Care ---
Author Name Unknown Organization [facility] Address [address] [place] [address] Phone [phone] Care Team Providers Care Medical Transcription Radiology Name Role Phone Kayla Reeder DO Primary Care Provider +1- [phone] Reason for Visit * Reason Onset Date Comments Pre Cert/Prior Auth 06/12/2023 Encounter Details Date Type Department Care Team ([facility] Contact Info) Description 06/12/2023 [facility] [address] [place] [address] Kayla Reeder DO [address] [place] [address] Pre Cert/Prior Auth Allergies No [...] Miscellaneous Notes * Telephone Encounter - Radha Vanegas PHARM Tech - 06/15/2023 9:35 AM EDT Upon review of this prior authorization request, I verified [facility] is not delegated to complete priorauthorizations for this medication. Forwarding request to appropriate location. Thank you, Radha Vanegas [facility] Assistant Public Defender Aeronautical Engineering Teacher Centralized Clinical Pharmacy Services (CCPS)(formerly Telepharmacy) 06/15/2023,9:35 [...] of 10. She was set up for [place] when she specifically requested [place] for oncology and a PET scan. Offered to send [facility] to [facility]. Wants this message sent to [place] and wants a call back from them. [...] 06/23/2023 9:40 AM EDT Hospital Encounter OR [facility], Operating Room, [facility] - 4th Floor [address] [facility] [place] [address] Tree Stout MD [address] [place] [address] 06/23/2023 9:40 AM EDT - 06/23/2023 10:50 AM EDT Surgery OR [facility], Operating Room, [facility] Floor [address] [place] [address] [place]ST [place] [address] Tree Stout MD [address] [facility] 270 [address] [place] [address] LEFT LITHOTRIPSY EXTRACORPOREAL SHOCK WAVE 06/24/2023 9:45 AM EDT Imaging Radiology, [place] [address] [place] [place] [address] 06/29/2023 1:00 PM EDT Office Visit Hematology/Oncolog , [address] [place]ST [place] [address] Mike Chaudhary MD [address] [place] [address] 07/16/2023 1:30 PM EDT Office Visit Urology Jarek Winslow [address] [place] [place] [address] Namrata Jorgensen PA-C [address] [place] [address] [place] [address] 07/24/2023 12:40 PM EDT Office Visit [facility] [place], [place] [address] [place] [place] [address] Calin Galloway PA-C [address] [place] [address] 08/26/2023 1:00 PM EDT Office Visit Sleep Disorders, [facility] 400 [place] [address] Dave Daigle PA-C [address] [place] [address] Scheduled Procedures Name Priority Associated Diagnoses Date/Ti [...] filedocumented as of this encounter Care Teams Medical Transcription Radiology Relationship Specialty Start Date End Date Kayla Reeder DO [address] [facility] ERNST [place] [address] PCP - General Family Medicine 06/11/23 documented as of this encounter
--- OUTSIDE RECORDS SUMMARY | 2023-09-18 21:41 | External Medical Summary | Summary of Care ---
Author Name Unknown Organization [facility] Address [address] [place] [address] Phone [phone] Care Team Providers Care Gantry Crane Operator Name Role Phone Kayla Reeder DO Primary Care Provider +1- [phone] Reason for Visit * Reason Onset Date Comments Surgery 06/16/2023 Encounter Details Date Type Department Care Team ([facility] st Contact Info) Description 06/16/2023 Telephone Urology Jarek Winslow [address] [place] [address] [place] [address] Services, Scheduling [address] [place] [address] Surgery Allergies No known active allergiesdocumented as of [...] encounter Miscellaneous Notes * Telephone Encounter - Chelsey Larsen OSA - 06/17/2023 4:02 PM EDT Message sent to the or to cancel surgery. * Telephone Encounter - Maricarmen Baer OSA - 06/16/2023 3:53 PM EDT Pt calling to cancel surgery and Post Op due to unexpected finding of possible cancer. Pt has PET scan scheduled. He would like to cancel his Urology surgery for now and will call back later to reschedule documented in this encounter Plan of Treatment Upcoming Encounters Date Type Department Care Team (Latest Contact Info) Description 06/23/2023 9:40 AM EDT Hospital Encounter OR [facility], Operating Room, [facility] Floor 400 [facility] ERNST [place] [address] Tree Stout MD 27 Do [facility] 270 [place] [place] [address] 06/23/2023 9:40 AM EDT - 06/23/2023 10:50 AM EDT Surgery OR [facility], Operating Room, [address] [place] [address] ERNST [place] [address] Tree Stout MD [address] Do [facility] [address] [place] [place] [address] LEFT LITHOTRIPSY EXTRACORPOREAL SHOCK WAVE 06/24/2023 9:45 AM EDT Imaging Radiology, [place] ER[place]ST [place] [address] 06/29/2023 1:00 PM EDT Office Visit Hematology/Oncolog , [address] [place] [place] [address] Mike Chaudhary MD [address] [place] [address] 07/24/2023 12:40 PM EDT Office Visit Family Practice [address], [place] [address] [place] [address] Calin Galloway PA-C [address] [place] [address] 08/26/2023 1:00 PM EDT Office Visit Sleep Disorders, [facility] [address] [place] [address] Dave Daigle PA-C [address] [place] [address] Scheduled Procedures Name Priority Associated [...] filedocumented as of this encounter Care Teams Gantry Crane Operator Relationship Specialty Start Date End Date Kayla Reeder DO [address] [facility] [place]ST [place] [address] PCP - General Family Medicine 06/11/23 documented as of this encounter
--- OUTSIDE RECORDS SUMMARY | 2023-09-18 21:41 | External Medical Summary | Summary of Care ---
Author Name Unknown Organization [facility] Address [address] [place] [address] Phone [phone] Care Team Providers Care Senior Quantity Surveyor Name Role Phone Kayla Reeder DO Primary Care Provider +1- [phone] Reason for Visit * Reason Onset Date Comments FYI 06/18/2023 Encounter Details Date Type Department Care Team ([facility] st Contact Info) Description 06/18/2023 [facility] [address] [place] [address] Kayla Reeder DO [address] [place] [address] FY Allergies No known active allergiesdocumented as of [...] Telephone Encounter - Jeannette Selby LPN - 06/18/2023 2:38 PM EDT Called Gege at [facility]. She verbalized her understanding. She would agree with the use of the Oxycodone, and is in agreement. Called Dr. Gray at the number below, no answer, but gave me the [phone]. Spoke to nurse at Dr. Gray's office, she verbalized her understanding. She will speak with Dr. Gray to make him aware. They will not prescribe the T3 at this point, but in the future, when the acute condition is resolved, they can restart after new eval. * Telephone Encounter - Kayla Reeder DO [...] telepharmacy, pt has another prior auth now, [facility] reports Xin Gray from rheumatology for TYL [...] please advise. Direct line for Dr Gray [phone] ext [phone] Will need to contact Gege with health plan back with what recommendation is: [phone] documented in this encounter Plan of Treatment Upcoming Encounters Date Type Department Care Team (Late st Contact Info) Description 06/24/2023 9:45 AM EDT Imaging Radiology, [address] [place] [id number] 06/29/2023 1:00 PM EDT Office Visit Hematology/Oncology, [address] [address] Mike Chaudhary MD [address] [place] [address] 07/24/2023 12:40 PM EDT Office Visit [facility] [address] [place] [address] Calin Galloway PA-C [address] [place] [address] 08/26/2023 1:00 PM EDT Office Visit Sleep Disorders, [address] [address] Dave Daigle PA-C [address] [place] [address] Health Maintenance Due Date Last Done Comments [...] as of this encounter Care Teams Senior Quantity Surveyor Relationship Specialty Start Date End Date Kayla Reeder DO [address] [facility] [place] [address] PCP - General Family Medicine 06/11/23 documented as of this encounter
--- OUTSIDE RECORDS SUMMARY | 2023-09-18 21:41 | External Medical Summary | Summary of Care ---
Author Name Unknown Organization [facility] Address [address] [place] [address] Phone [phone] Care Team Providers Care Train Director Name Role Phone Kayla Reeder DO Primary Care Provider +1- [phone] Reason for Visit * Reason Onset Date Comments Pre Cert/Prior Auth 06/12/2023 Encounter Details Date Type Department Care Team ([facility] Contact Info) Description 06/12/2023 [facility] [address] [place] [address] Kayla Reeder DO [address] [place] [address] Pre Cert/Prior Auth Allergies No known active allergiesdocumented as of this encounter (statuses as of 06/16/2023) Medications Medication Sig Dispensed Refills Start Date [...] as of this encounter (statuses as of 06/16/2023) Active Problems Problem Noted Date Diagnosed Date [...] as of this encounter (statuses as of 06/16/2023) Resolved Problems Problem Noted Date Diagnosed Date [...] as of this encounter (statuses as of 06/16/2023) Immunizations Name Administration Dates Next Due DT [...] encounter Miscellaneous Notes * Telephone Encounter - Navya Oliver LPN [...] of this prior authorization request, I verified [facility] is not delegated to complete priorauthorizations for this medication. Forwarding request to appropriate location. Thank you, Radha Vanegas automatic blocker Children'S Librarian Steel Detailer Centralized Clinical Pharmacy Services (CCPS)(formerly Telepharmacy) 06/15/2023,9:35 [...] of 10. She was set up for [place] when she specifically requested [place] for oncology and a PET scan. Offered to send her to [facility]. Wants this message sent to [place] and wants a call back from them. [...] 06/23/2023 9:40 AM EDT Hospital Encounter [facility], Operating Room, [facility] - 4th Floor 400 [facility] [place] [id number] Tree Stout MD 27 [facility] [address] [place] [id number] 06/23/2023 9:40 AM EDT - 06/23/2023 10:50 AM EDT Surgery OR [facility], Operating Room, [facility] - 4th Floor 400 [facility] [place] [address] Tree Stout MD [address] [place] [address] [place] [address] LEFT LITHOTRIPSY EXTRACORPOREAL SHOCK WAVE 06/24/2023 9:45 AM EDT Imaging Radiology, [facility] [address] [place] [address] 06/29/2023 1:00 PM EDT Office Visit Hematology/Oncolog y, [address] [place] [address] Mike Chaudhary MD [address] [place] [address] 07/16/2023 1:30 PM EDT Office Visit Urology Izaiah Winslowwn [address] [place] [address] [place] [address] Namrata Jorgensen PA-C [address] [place] [address] [place] [address] 07/24/2023 12:40 PM EDT Office Visit [facility] Maribell Garcia [address] [place] [address] Calin Galloway PA-C 6[address] [facility] [place] [address] 08/26/2023 1:00 PM EDT Office Visit Sleep Disorders, [address] [place] [address] Dave Daigle PA-C 400 [facility] [place] [address] Scheduled Procedures Name Priority Associated Diagnoses Date/Ti [...] filedocumented as of this encounter Care Teams Train Director Relationship Specialty Start Date End Date Kayla Reeder DO [address] [facility] [place] [address] PCP - General Family Medicine 06/11/23 documented as of this encounter
--- OUTSIDE RECORDS SUMMARY | 2023-09-18 21:41 | External Medical Summary | Summary of Care ---
Author Name Unknown Organization [facility] Address [address] [place] [address] Phone [phone] Care Team Providers Care Director Hr Communications Name Role Phone Kayla Reeder DO Primary Care Provider +1- [phone] Reason for Visit * Reason Onset Date Comments Pre Cert/Prior Auth 06/12/2023 Encounter Details Date Type Department Care Team ([facility] Contact Info) Description 06/12/2023 Telephone [facility] [address] [place] [address] Kayla Reeder DO [address] [place] [address] Pre Cert/Prior Auth Allergies No [...] encounter Miscellaneous Notes * Telephone Encounter - Fransisco Cano PHARM Tech - 06/16/2023 12:11 PM EDT Patients insurance would like to inform the office that Oxycodone is approved until 12/16/2023. Patient and pharmacy made aware by [facility]. Information will be faxed to the office. Thank You, Fransisco Cano [facility] Relay Telegrapher II Centralized Clinical Pharmacy Services (Formerly Telepharmacy) [...] am in a room with anotherpatient. Ref [id number] Longest is 48 hours, so this should [...] of this prior authorization request, I verified [facility] is not delegated to complete priorauthorizations for this medication. Forwarding request to appropriate location. Thank you, Radha Vanegas [facility] Case Coordinator Electrical And Instrument Engineer Centralized Clinical Pharmacy Services (CCPS)(formerly Telepharmacy) 06/15/2023,9:35 AM * Telephone Encounter - Kayla Reeder DO - 06/15/2023 8:59 AM EDT Can we please follow up with this today Thank you * Telephone Encounter - Ramila Vasquez LPN - 06/15/2023 8:38 AM EDT Patients motherAnne-Marie is calling. Her son had to go [...] of 10. She was set up for [place] when she specifically requested [place] for oncology and a PET scan. [facility]. Wants this message sent to [place] and wants a call back from them. [...] 06/23/2023 9:40 AM EDT Hospital Encounter OR [facility], Operating Room, [facility] - 4th Floor [address] [place] [address] Tree Stout MD [place] [address] [place] [address] 06/23/2023 9:40 AM EDT - 06/23/2023 10:50 AM EDT Surgery OR [facility], Operating Room, [facility] - 4th Floor [address] [place] [address] Tree Stout MD [address] [place] [address] [place] [address] LEFT LITHOTRIPSY EXTRACORPOREAL SHOCK WAVE 06/24/2023 9:45 AM EDT Imaging Radiology, [facility] [address] [place] [id number] 06/29/2023 1:00 PM EDT Office Visit Hematology/Oncolog y, [facility] 400 [place] [address] Mike Chaudhary MD [address] [place] [address] 07/16/2023 1:30 PM EDT Office Visit Urology Do [facility]ese [place] [facility] 270 [place] [address] Namrata Jorgensen PA-C [address] [place] [place] [address] 07/24/2023 12:40 PM EDT Office Visit [facility] [place] [address] [place] [address] Calin Galloway PA-C [address] [place] [address] 08/26/2023 1:00 PM EDT Office Visit Sleep Disorders, [facility] 400 [place] [address] Dave Daigle PA-C 400 [place] [address] Scheduled Procedures Name Priority Associated Diagnoses Date/Ti [...] filedocumented as of this encounter Care Teams Director Hr Communications Relationship Specialty Start Date End Date Kayla Reeder DO [address] [facility] [place] [address] PCP - General Family Medicine 06/11/23 documented as of this encounter
--- OUTSIDE RECORDS SUMMARY | 2023-09-18 21:41 | External Medical Summary | Summary of Care ---
Author Name Unknown Organization [facility] Address [address] [place] [address] Phone [phone] Care Team Providers Care Stamp Clerk Name Role Phone Kayla Reeder DO Primary Care Provider +1- [phone] Reason for Visit * Reason Onset Date Comments Pre Cert/Prior Auth 06/12/2023 Encounter Details Date Type Department Care Team ([facility] Contact Info) Description 06/12/2023 Telephone [facility] [address] [place] [address] Kayla Reeder DO [address] [place] [address] Pre Cert/Prior Auth Allergies No [...] of 10. She was set up for [place] when she specifically requested [place] for oncology and a PET scan. Offered to send her to [facility]. Wants this message sent to [place] and wants a call back from them. [...] 06/23/2023 9:40 AM EDT Hospital Encounter OR [facility], Operating Room, [facility] - 4th Floor [address] [place] [address] Tree Stout MD [address] [place] [address] [place] [address] 06/23/2023 9:40 AM EDT - 06/23/2023 10:50 AM EDT Surgery OR [facility], Operating Room, [facility] - 4th Floor [address] [facility] [place] [address] Tree Stout MD [address] [place] [address] LEFT LITHOTRIPSY EXTRACORPOREAL SHOCK WAVE 06/24/2023 9:45 AM EDT Imaging Radiology, [address] [place] [address] 06/29/2023 1:00 PM EDT Office Visit Hematology/Oncolog [facility] [address] [facility] [place] [address] Mike Chaudhary MD Formerly named [facility] [place] [address] 07/16/2023 1:30 PM EDT Office Visit Urology Jarek Winslow [address] [facility] 270 [place] [address] Namrata Jorgensen PA-C [address] [place] [address] [place] [address] 07/24/2023 12:40 PM EDT Office Visit [facility] Maribell Garcia [address] [place] [address] Calin Galloway PA-C [address] [place] [address] 08/26/2023 1:00 PM EDT Office Visit Sleep Disorders, [facility] [address] [place] [id number] Dave Daigle PA-C [address] [place] [id number] Scheduled Procedures Name Priority Associated Diagnoses Date/Ti [...] - PCV) 01/23/2018 01/23/2017 COVID-19 Vaccine ( season) 2022 Influenza Vaccine (FLU shot) (Season [...] filedocumented as of this encounter Care Teams Stamp Clerk Relationship Specialty Start Date End Date Kayla Reeder DO [address] [facility] [place] [address] PCP - General Family Medicine 06/11/23 documented as of this encounter
--- OUTSIDE RECORDS SUMMARY | 2023-09-18 21:41 | External Medical Summary | Summary of Care ---
Author Name Unknown Organization [facility] Address [address] [place] [address] Phone [phone] Care Team Providers Care Barrel Polisher Inside Name Role Phone Kayla Reeder DO Primary Care Provider +1- [phone] Reason for Visit * Reason Onset Date Comments Pre Cert/Prior Auth 06/12/2023 Encounter Details Date Type Department Care Team ([facility] Contact Info) Description 06/12/2023 Telephone [facility] [address] [place] [address] Kayla Reeder DO [address] [place] [address] Pre Cert/Prior Auth Allergies No [...] am in a room with anotherpatient. Ref [id number] Longest is 48 hours, so this should [...] of this prior authorization request, I verified [facility] is not delegated to complete priorauthorizations for this medication. Forwarding request to appropriate location. Thank you, Radha Vanegas, [facility] Wealth Management Director Sports Medicine Coordinator Centralized Clinical Pharmacy Services (CCPS)(formerly Telepharmacy) 06/15/2023,9:35 [...] of 10. She was set up for [place] when she specifically requested [place] for oncology and a PET scan. Offered to send her to [facility]. Wants this message sent to [place] and wants a call back from them. [...] 06/23/2023 9:40 AM EDT Hospital Encounter OR [facility], Operating Room, [facility] - 4th Floor 400 [facility] [place] [address] Tree Stout MD [address] [facility] 270 [place] [address] 06/23/2023 9:40 AM EDT - 06/23/2023 10:50 AM EDT Surgery OR [facility], Operating Room, [facility] Floor 400 [facility] [place] [address] Tree Stout MD [address] [facility] 270 [place] [address] LEFT LITHOTRIPSY EXTRACORPOREAL SHOCK WAVE 06/24/2023 9:45 AM EDT Imaging Radiology, Roderick Sargeant [place] [address] 06/29/2023 1:00 PM EDT Office Visit Hematology/Oncolog [address] [place] [address] Mike Chaudhary MD [address] [place] [address] 07/16/2023 1:30 PM EDT Office Visit Urology Do Reese [place] [address] [place] [place] [address] Namrata Jorgensen PA-C [address] [place] [place] [address] 07/24/2023 12:40 PM EDT Office Visit Family [facility] [place] [address] [place] [address] Calin Galloway PA-C [address] [place] [address] 08/26/2023 1:00 PM EDT Office Visit Sleep Disorders, [facility] [address] [place] [address] Dave Daigle PA-C 400 [place] [address] Scheduled Procedures Name Priority Associated Diagnoses Date/Ti [...] PCV) 01/23/2018 01/23/2017 COVID-19 Vaccine ( - 2022- season) 2022 Influenza Vaccine (FLU [...] filedocumented as of this encounter Care Teams Barrel Polisher Inside Relationship Specialty Start Date End Date Kayla Reeder DO 3[address] [facility] [place] [address] PCP - General Family Medicine 06/11/23 documented as of this encounter
--- OUTSIDE RECORDS SUMMARY | 2023-09-18 21:41 | External Medical Summary | Summary of Care ---
Author Name Unknown Organization [facility] Address [address] [place] [address] Phone [phone] Care Team Providers Care Portable Sawyer Name Role Phone Kayla Reeder DO Primary Care Provider +1- [phone] Reason for Visit * Reason Onset Date Comments Pre Cert/Prior Auth 06/12/2023 Encounter Details Date Type Department Care Team ([facility] Contact Info) Description 06/12/2023 Telephone [facility] [address] [place] [address] Kayla Reeder DO [address] [place] [address] Pre Cert/Prior Auth Allergies No [...] am in a room with anotherpatient. Ref [id number] Longest is 48 hours, so this should [...] this prior authorization request, I verified [facility] is not delegated to complete priorauthorizations for this medication. Forwarding request to appropriate location. Thank you, Radha Vanegas [facility] Cable Maker Retail Gift Card Merchandising Centralized Clinical Pharmacy Services (CCPS)(formerly Telepharmacy) 06/15/2023,9:35 [...] of 10. She was set up for [place] when she specifically requested [place] for oncology and a PET scan. Offered to send her to scheduling. Wants this message sent to [place] and wants a call back from them. [...] 9:40 AM EDT Hospital Encounter OR [facility], Operating Room, [facility] - 4th Floor 400 [facility] [place] [address] Tree Stout MD [facility] [address] [place] [address] 06/23/2023 9:40 AM EDT - 06/23/2023 10:50 AM EDT Surgery OR [facility], Operating Room, [facility] - 4th Floor 400 [facility] [place] [address] Tree Stout MD [facility] [address] [place] [address] LEFT LITHOTRIPSY EXTRACORPOREAL SHOCK WAVE 06/24/2023 9:45 AM EDT Imaging Radiology, [address] [place] [address] 06/29/2023 1:00 PM EDT Office Visit Hematology/Oncolog , [address] [place] [address] Mike Chaudhary MD [address] [facility] [place] [id number] 07/16/2023 1:30 PM EDT Office Visit Urology Jarek [place] [address] [place] [address] [place] [address] Namrata Jorgensen PA-C [address] [place] [address] [place] [address] 07/24/2023 12:40 PM EDT Office Visit Family Practice [address], [place] [address] [place] [address] Calin Galloway PA-C [address] [place] [address] 08/26/2023 1:00 PM EDT Office Visit Sleep Disorders, [facility] 400 [facility] [place] [id number] Dave Daigle PA-C 400 [facility] [place] [address] Scheduled Procedures Name Priority Associated Diagnoses Date/Ti [...] filedocumented as of this encounter Care Teams Portable Sawyer Relationship Specialty Start Date End Date Kayla Reeder DO 3[address] [facility] [place] [address] PCP - General Family Medicine 06/11/23 documented as of this encounter
--- OUTSIDE RECORDS SUMMARY | 2023-09-18 21:41 | External Medical Summary | Summary of Care ---
Author Name Unknown Organization [facility] Address [address] [place] [address] Phone [phone] Care Team Providers Care Quality Assurance Specialist Name Role Phone Kayla Reeder DO Primary Care Provider +1- [phone] Encounter Details Date Type Department Care Team ([facility] st Contact Info) Description 06/18/2023 Telephone Family Practice [facility] [address] [place] [address] Kayla Reeder DO [address] [place] [address] Allergies No known active allergiesdocumented [...] telepharmacy, pt has another prior auth now, [facility] reports Xin Gray from rheumatology [...] please advise. Direct line for Dr Gray [phone] ext [phone] Will need to contact Gege [facility] back with what recommendation is: [phone] documented in this encounter Plan of Treatment Upcoming Encounters Date Type Department Care Team (Late st Contact Info) Description 06/24/2023 9:45 AM EDT [facility], [facility] [address] [place] [id number] 06/29/2023 1:00 PM EDT Office Visit Hematology/Oncology, [facility] [address] [place] [address] Mike Chaudhary MD [address] [facility] [place] [address] 07/24/2023 12:40 PM EDT Office Visit [facility] Maribell Garcia [address] [place] [address] Calin Galloway PA-C [address] [place] [address] 08/26/2023 1:00 PM EDT Office Visit Sleep Disorders, [facility] 400 [place] [address] Dave Daigle PA-C 400 [place] [address] Health Maintenance Due Date Last Done Comments [...] filedocumented as of this encounter Care Teams Quality Assurance Specialist Relationship Specialty Start Date End Date Kayla Reeder DO [address] [place] [address] PCP - General Family Medicine 06/11/23 documented as of this encounter
[2023-09-18] MEDS ORDERED: VANCOMYCIN CONSULT ACTIVE PRN (23:41)
[2023-09-18] MEDS: CEFEPIME 2,000 MG/20 ML VIAL IV STA (23:58)
[2023-09-18] MEDS: ACETAMINOPHEN 1,000 MG/100 ML VIAL IV STA (23:58)
[2023-09-19] MEDS: VANCOMYCIN HCL 2,250 MG in SODIUM CHLORIDE 0.9% 500 ML IV ONE (00:51)
--- NOTE | 2023-09-19 01:48 | History & Physical Report ---
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 After transfusion he went to local Swimming pool to see his friends. Today morning he woke up complaining of swelling under the tongue, nausea and vomited a couple of times and not feeling well and mother brought him here t [place]. In the ER he was spiking temperature. And also has pancytopenia. Was given IV cefepime and Vanco for febrile neutropenia. No diarrhea. No blood in the stools or black stools as per mother. Micturating okay. No chest pain or shortness of breath. No cough. No chills. Currently patient is sleeping. Arousable but goes back to sleep. All the history From mother. Because of the swelling of the tongue and soreness in mouth on soft food currently.. Hemodynamics are okay. Febrile neutropenia Neutropenia precautions Empiric IV cefepime and Vanco Will follow cultures Close monitor Pancytopenia Chemo induced pancytopenia Hemoglobin 6.4, WBC 0.1, platelets 14 K Getting PRBC and platelet transfusions Follow repeat labs Hematology/oncology consulted Close monitor Burkitt's lymphoma On chemo Continue chronic suppressive antibiotics Continue home pain medications and close monitor Follow-up with hematology/oncology Swelling under tongue Sore mouth Continue Magic mouthwash Can consider GI consult Close monitor History of seizures On Depakote and Topamax Migraines On Topamax Hypertension On propranolol Hypokalemia Replace Continue home potassium supplements Follow labs GERD Protonix and famotidine History of primary MIDDLEWARE SYSTEMS ARCHITECT angiitis/occipital CVA at age 7 S/p cyclophosphamide, azathioprine, mycophenolate, methotrexate from [id number] S/p craniotomy at age 10 in [place] Currently off of immunosuppressive medications more than 10 years and follows with [facility] History of gout On allopurinol DVT prophylaxis SCDs Disposition Close monitoring telemetry Full code. 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 After transfusion he went to local [place]imming pool to see his friends. Today morning he woke up complaining of swelling under the tongue, n ausea and vomited a couple of times and not feeling well and mother brought him here today. In the ER he was spiking temperature. And also has pancytopenia. Was given IV cefepime and Vanco for febrile neutropenia. No diarrhea. No blood in the stools or black stools as per mother. Micturating okay. No chest pain or shortness of breath. No cough. No chills. Currently patient is sleeping. Arousable but goes back to sleep. All the history got From mother. Because of the swelling of the tongue and soreness in mouth on soft food currently.. Hemodynamics are okay. Past medical history. As mentioned above Past surgical history. Colonoscopy and EGD. IR biopsy. Open had surgery. Social history. Former smoker. Smoked 2 pack a day for 7 years. Quit smoking 2021. Alcohol rarely. No drug use. Family history. Mother had cervical cancer. Maternal aunt had uterine cancer. Maternal grandmother had uterine cancer. Allergies Allergy/AdvReac Type Severity Reaction Status Date / Time No Known Allergies Allergy Verified 09/18/23 20:24 Home Medications Medication Instructions Recorded Confirmed Type celecoxib 200 mg capsule 200 mg PO QAM 07/02/21 09/18/23 History hydrochlorothiazide 12.5 mg tablet 12.5 mg PO DAILY 07/02/21 09/18/23 History aspirin 81 mg tablet,delayed 81 mg PO DAILY 12/03/21 09/18/23 History release (Brad Low Dose Aspirin) divalproex 500 mg tablet,extended 500 mg PO BID 12/03/21 09/18/23 History release 24 hr (Depakote ER) propranolol 40 mg tablet 40 mg PO BID 12/03/21 09/18/23 History topiramate 100 mg tablet (Topamax) 100 mg PO BID 12/03/21 09/18/23 History Magic Swizzle 15 ml mucous membrane QID MOUTH 09/18/23 09/18/23 History IRRITATION acyclovir 400 mg tablet 400 mg PO BID 09/18/23 09/18/23 History albuterol sulfate 90 mcg/actuation 2 inh inhalation Q4H PRN Shortness 09/18/23 09/18/23 History aerosol inhaler Of Breath Or Wheezing allopurinol 300 mg tablet 300 mg PO QAM 09/18/23 09/18/23 History buprenorphine HCl 2 mg sublingual 1 mg sublingual BID 09/18/23 09/18/23 History tablet cetirizine 10 mg tablet 10 mg PO QAM 09/18/23 09/18/23 History famotidine 20 mg tablet 20 mg PO DAILY 09/18/23 09/18/23 History fluconazole 200 mg tablet 400 mg PO QAM 09/18/23 09/18/23 History fluticasone 250 mcg-salmeterol 50 1 inh inhalation BID 09/18/23 09/18/23 History mcg/dose blistr powdr for inhalation levofloxacin 750 mg tablet 750 mg PO QAM PRN IF ANC <500. 09/18/23 09/18/23 History morphine 15 mg immediate release 15 mg PO Q6H PRN Pain 09/18/23 09/18/23 History tablet ondansetron HCl 4 mg tablet 4 mg PO Q6H PRN NAUSEA/VOMTING 09/18/23 09/18/23 History ondansetron HCl 8 mg tablet 8 mg PO Q8H PRN NAUSEA/VOMITING 09/18/23 09/18/23 History pantoprazole 40 mg tablet,delayed 40 mg PO DAILYBB 09/18/23 09/18/23 History release potassium chloride 10 mEq 20 meq PO BID 09/18/23 09/18/23 History tablet,extended release(part/cryst) sulfamethoxazole 400 1 tab PO QAM 09/18/23 09/18/23 History mg-trimethoprim 80 mg tablet 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) Hypertension Cerebral vasculitis Surgical History S/P tonsillectomy Family History Mother Hypertension Social History Smoking Status: Former smoker Tobacco Type: Cigarettes Age Quit Using Tobacco: 30; Cigarettes Per Day: 10; Smoking End Date: quit 2 years ago; Second Hand Exposure: No; Do You Dip or Chew Tobacco: No; Tobacco Cessation Education Requested by Patient: No Hx Alcohol Use: No Hx Substance Use: No Preferred Language: Citizen Of [place] Communication Ability: Effective Flow Worker Required: No Beliefs That Will Affect Care: None marital status: Single Current Living Situation: Family Current Living Situation Comment: lives with s/o current occupational status: disabled Other Information That Helps Us Care for You: No Feels Safe at Home: Yes Safety Concerns: Feels Safe At This Time Assistive Devices: None Assistive Devices Comment: right chest port Review of Systems Review of Systems: Other As per HPI as patient currently drowsy Physical Exam Physical Exam: General- Drowsy Head- atraumatic Eyes- PERRL. ENT- oropharynx clear, Swelling under tounge seen Neck- supple, no JVD. Lungs- clear to auscultation, no wheezing or crackles Heart- regular rhythm; no murmur, no gallop. Abdomen- normal bowel sounds, soft, nontender, no distension Extremities- mild pretibial edema present, no erythema see Neuro- Drowsy but arousable PERRL,no facial palsy; no dysarthria; moves extremities Results & Data Results & Data Vital Signs (Past 12 Hours) Vital Signs Temp Pulse Resp BP Pulse Ox O2 Del Method 09/19/23 01:35 37.6 C 107 H 14 134/74 100 09/19/23 01:05 37.4 C 108 H 19 108/65 98 09/19/23 00:50 36.6 C 102 H 17 129/65 99 09/19/23 00:30 36.8 C 103 H 14 132/73 98 09/18/23 23:28 38.1 C H 104 H 17 136/83 100 09/18/23 22:28 37.8 C H 98 H 16 123/71 99 09/18/23 21:28 37.3 C 100 H 16 147/77 H 100 09/18/23 21:28 37.3 C 103 H 18 147/77 H 100 09/18/23 20:58 37.7 C H 102 H 16 159/87 H 100 09/18/23 20:43 37.4 C 105 H 16 140/93 100 09/18/23 20:24 135/77 09/18/23 20:24 36.9 C 102 H 17 135/77 100 09/18/23 20:12 97 H 17 100 Room Air 09/18/23 20:00 95 H 14 09/18/23 19:30 126/78 09/18/23 19:30 126/78 09/18/23 19:30 126/78 09/18/23 19:30 94 H 17 09/18/23 19:20 127/84 09/18/23 19:06 99 H 9 L 09/18/23 19:00 99 09/18/23 18:30 138/78 09/18/23 18:30 138/78 09/18/23 18:30 138/78 09/18/23 18:30 96 H 14 100 09/18/23 18:18 92 H 14 99 09/18/23 17:33 108 H 19 09/18/23 17:03 90 15 100 09/18/23 17:00 126/80 09/18/23 17:00 126/80 09/18/23 16:54 85 14 100 09/18/23 16:30 89 15 99 09/18/23 16:30 111/67 09/18/23 16:30 111/67 09/18/23 16:06 94 H 15 97 09/18/23 15:42 100 H 17 98 09/18/23 15:41 99 H 09/18/23 15:40 128/79 09/18/23 15:40 128/79 09/18/23 15:15 36.6 C 103 H 20 127/87 100 Room Air Diagnostic Findings Laboratory Results WBC 0.11 K/ul (4.8-10.8) L* 09/18/23 15:40 RBC 2.13 M/uL (4.70-6.10) L 09/18/23 15:40 Hgb 6.4 g/dl (14.0-18.0) L* 09/18/23 15:40 Hct 18.8 % (42.0-52.0) L* 09/18/23 15:40 MCV 88.3 fL (80.0-100.0) 09/18/23 15:40 MCH 30.0 pg (25.0-34.0) 09/18/23 15:40 MCHC 34.0 g/dL (32.0-36.0) 09/18/23 15:40 RDW Std Deviation 54.6 fL (36.4-46.3) H 09/18/23 15:40 RDW Coeff of Anastasiia 17.0 % (11.5-14.5) H 09/18/23 15:40 Plt Count 14 K/uL (130-400) L* 09/18/23 15:40 Neut # (Auto) < 0.50 K/uL (1.40-6.50) L* 09/18/23 15:40 Sodium 138 mmol/L (136-145) 09/18/23 15:40 Potassium 3.2 mmol/L (3.5-5.1) L 09/18/23 15:40 Chloride 107 mmol/L (98-107) 09/18/23 15:40 Carbon Dioxide 24 mmol/L (21-32) 09/18/23 15:40 Anion Gap 7 (3-11) 09/18/23 15:40 BUN 11 mg/dl (6-23) 09/18/23 15:40 Creatinine 0.55 mg/dl (0.6-1.4) L 09/18/23 15:40 Est Cr Clr Drug Dosing 236.6 ml/min 09/18/23 15:40 Est GFR ( Amer) > 150.0 ml/min 09/18/23 15:40 Est GFR (Non-Af Amer) 136.0 ml/min 09/18/23 15:40 BUN/Creatinine Ratio 20.0 (10-20) 09/18/23 15:40 Glucose 134 mg/dl (70-99(Fasting)) H 09/18/23 15:40 Calcium 9.3 mg/dl (8.6-10.3) 09/18/23 15:40 Magnesium 1.7 mg/dl (1.7-2.4) 09/18/23 15:40 Total Bilirubin 0.8 mg/dl (0.2-1.0) 09/18/23 15:40 AST 10 U/L (13-39) L 09/18/23 15:40 ALT 20 U/L (7-52) 09/18/23 15:40 Alkaline Phosphatase 70 U/L (34-104) 09/18/23 15:40 Total Protein 6.0 gm/dl (6.0-8.3) 09/18/23 15:40 Albumin 3.9 gm/dl (3.4-5.0) 09/18/23 15:40 Globulin 2.1 gm/dl (2.5-4.0) L 09/18/23 15:40 Albumin/Globulin Ratio 1.9 (0.9-2) 09/18/23 15:40 Urine Color Yellow 09/18/23 18:55 Urine Appearance Clear (Clear) 09/18/23 18:55 Urine pH 7.0 (4.5-7.5) 09/18/23 18:55 Ur Specific [place] 1.015 (1.000-1.030) 09/18/23 18:55 Urine Protein Negative (Negative) 09/18/23 18:55 Urine Glucose (UA) Negative (Negative) 09/18/23 18:55 Urine Ketones Negative (Negative) 09/18/23 18:55 Urine Blood Negative (Negative) 09/18/23 18:55 Urine Nitrite Negative (Negative) 09/18/23 18:55 Urine Bilirubin Negative (Negative) 09/18/23 18:55 Urine Urobilinogen Negative (Negative) 09/18/23 18:55 Ur Leukocyte Esterase Negative (Negative) 09/18/23 18:55 Adenovirus (PCR) Not Detected (NotDetected) 09/18/23 18:55 B. pertussis DNA (PCR) Not Detected (NotDetected) 09/18/23 18:55 B.parapertussis DNA PCR Not Detected (NotDetected) 09/18/23 18:55 C. pneumoniae DNA (PCR) Not Detected (NotDetected) 09/18/23 18:55 Coronavirus OC43 (PCR) Not Detected (NotDetected) 09/18/23 18:55 Coronavirus HKU1 (PCR) Not Detected (NotDetected) 09/18/23 18:55 Coronavirus 229E (PCR) Not Detected (NotDetected) 09/18/23 18:55 SARS-CoV-2 (PCR) Not Detected (NotDetected) 09/18/23 18:55 Coronavirus NL63 (PCR) Not Detected (NotDetected) 09/18/23 18:55 Human Metapneumovir PCR Not Detected (NotDetected) 09/18/23 18:55 Influenza Type A (PCR) Not Detected (NotDetected) 09/18/23 18:55 Influenza Type B (PCR) Not Detected (NotDetected) 09/18/23 18:55 M. pneumoniae (PCR) Not Detected (NotDetected) 09/18/23 18:55 Parainfluenza 1 (PCR) Not Detected (NotDetected) 09/18/23 18:55 Parainfluenza 2 (PCR) Not Detected (NotDetected) 09/18/23 18:55 Parainfluenza 3 (PCR) Not Detected (NotDetected) 09/18/23 18:55 Parainfluenza 4 (PCR) Not Detected (NotDetected) 09/18/23 18:55 RSV (PCR) Not Detected (NotDetected) 09/18/23 18:55 Entero/Rhino (PCR) Not Detected (NotDetected) 09/18/23 18:55 Blood Type O Positive 09/18/23 18:51 Blood Type Recheck O Positive 09/18/23 19:21 Antibody Screen NEGATIVE 09/18/23 18:51 Crossmatch See Detail 09/18/23 18:51 Impressions Chest X-Ray 09/18/23 18:29 XR chest 1V portable HISTORY: weakness COMPARISON: Chest 04/19/2023. FINDINGS: There are low lung volumes. The patient's head partially obscures the lung apices. No pneumothorax. No pleural effusions. The lungs are clear. The cardiac silhouette remains top normal in size. A right jugular Port-A-Cath terminates in the SVC. No acute fractures. IMPRESSION: No acute process. ACT 112: Negative or not required by law. Electronically signed by: Mayco Mcmillan M.D. 09/18/2023 6:58 PM ECG Additional Comments: ECG. Normal sinus rhythm with rate of 90. No significant change was found. Code Status & VTE Plan VTE Prophylaxis Plan VTE Prophylaxis will be ordered: Yes
[2023-09-19] MEDS ORDERED: NITROGLYCERIN SL 0.4 MG/TAB TAB SL PRN (04:37)
[2023-09-19] MEDS ORDERED: ALBUTEROL HFA 8 GM INHALER INH PRN (04:37)
[2023-09-19] MEDS: POTASSIUM CHLORIDE / WTR 10 MEQ/100 ML PLCT IV SCH (05:42)
[2023-09-19] MEDS: SODIUM CHLORIDE 0.9% 1,000 ML IV SCH (05:43)
[2023-09-19 05:52] LABS: Anion Gap 6 (3-11); BUN Creatinine Ratio 15.3 (10-20); Blood Urea Nitrogen 9 mg/dl (6-23); Calcium 8.6 mg/dl (8.6-10.3); Carbon Dioxide 24 mmol/L (21-32); Chloride 108 mmol/L (98-107); Creatinine Clr Calc Pharmacy 220.1 ml/min; Est GFR (African American) > 150.0 ml/min; Est GFR (Non-African American) 132.1 ml/min; Glucose 111 mg/dl (70-99(Fasting)); Magnesium 1.7 mg/dl (1.7-2.4); Potassium 3.1 mmol/L (3.5-5.1); Sodium 138 mmol/L (136-145)
[2023-09-19] MEDS ORDERED: SODIUM CHLORIDE 0.9% 250 ML IV PRN ×3 (05:57→12:02)
[2023-09-19 05:58] LABS: Hematocrit (blood only) 18.7 % (42.0-52.0); Hemoglobin 6.6 g/dl (14.0-18.0); Mean Corpuscular Hemoglobin 31.4 pg (25.0-34.0); Mean Corpuscular Hgb Conc 35.3 g/dL (32.0-36.0); Mean Platelet Volume 12.1 fL (9.4-12.4); Neutrophils # (auto) < 0.50 K/uL (1.40-6.50); Platelet Count 25 K/uL (130-400); RDW Coefficient of Variation 15.8 % (11.5-14.5); RDW Standard Deviation 51.8 fL (36.4-46.3); White Blood Count 0.18 K/ul (4.8-10.8)
[2023-09-19] MEDS: MAGNESIUM SULFATE / D5W 1 GM/100 ML BAG IV ONE (06:22)
[2023-09-19] MEDS: POTASSIUM CHLORIDE CRTAB 20 MEQ TABCR PO STA ×2 (06:24→12:29)
[2023-09-19] MEDS: ACETAMINOPHEN 325 MG TAB PO ONE (06:24)
[2023-09-19] MEDS: PANTOprazole 40 MG TAB PO SCH (06:24)
[2023-09-19] MEDS: FUROSEMIDE INJ 20 MG/2 ML VIAL IV ONE (06:41)
[2023-09-19] MEDS: FLUTICASONE/VILANTEROL 200/25MCG 14 PUFFS/INHALER INH SCH (07:54)
[2023-09-19] MEDS: FIRST - Mouthwash BLM 119 ML PO SCH (07:54)
[2023-09-19] MEDS: CEFEPIME 2,000 MG in SYRINGE 0 ML IV SCH (07:55)
[2023-09-19] MEDS: VANCOMYCIN HCL 1,500 MG in SODIUM CHLORIDE 0.9% 500 ML IV SCH (07:56)
[2023-09-19] MEDS: ACYCLOVIR 400 MG TAB PO SCH (08:05)
[2023-09-19] MEDS: DIVALPROEX EXTENDED RELEASE 500 MG TAB PO SCH (08:05)
[2023-09-19] MEDS: PROPRANOLOL HCL 20 MG TAB PO SCH (08:06)
[2023-09-19] MEDS: TOPIRAMATE 100 MG TAB PO SCH (08:06)
[2023-09-19] MEDS: POTASSIUM CHLORIDE CRTAB 20 MEQ TABCR PO SCH (08:06)
[2023-09-19] MEDS: CETIRIZINE HCL 10 MG TABLET PO SCH (08:06)
[2023-09-19] MEDS: FAMOTIDINE 20 MG TAB PO SCH (08:06)
[2023-09-19] MEDS: allopurinoL 300 MG TAB PO SCH (08:06)
[2023-09-19] MEDS: FLUCONAZOLE 100 MG TAB PO SCH (08:06)
[2023-09-19] MEDS: buprenorphine HCL 2 MG SUBL SL SCH (08:15)
[2023-09-19] MEDS: ASPIRIN 81 MG ECTAB PO SCH (08:56)
--- NOTE | 2023-09-19 09:04 | Pharmacy Report ---
Pharmacy PK ABX Note - Date of Service September 19, 2023 - Assessment and Plan Assessment 32 year old M receiving vancomycin/cefepime for treatment of febrile neutropenia. Pertinent microbiologic data includes: Blood cultures pending. Patient is pancytopenic, last chemo received last week. Tmax 38.1 Plan Vancomycin * Loading dose: 2250 mg IV x 1 * Maintenance dose: 1500 mg IV every 8 hours * Regimen is predicted to achieve target AUC/SAMANTHA of 400-600 mg/L.hr for first 8 doses * Trough level ordered for 09/19 @ 0730 Pharmacy will continue to follow and will adjust dose/frequency as necessary. Thank you. Pharmacy has transitioned to AUC monitoring for vancomycin. AUC/SAMANTHA is the preferred PK/PD target and is associated with decreased risk of nephrotoxicity compared to traditional trough targets.
[2023-09-19] MEDS: ACETAMINOPHEN 325 MG TAB PO PRN (09:07)
--- NOTE | 2023-09-19 09:18 | Oncology Consultation ---
Date of Consultation September 19, 2023 Assessment & Plan (1) Febrile neutropenia: (2) Burkitt lymphoma: (3) Pancytopenia: Plan Pancytopenia due to chemotherapy -Continue broad spectrum antibiotics pending blood cultures. If blood cultures are negative, can discontinue antibiotics when fever free for 24 hours -No indication for GCSF since he already received GCSF post chemotherapy. -Nutritional labs including B12, folate levels -Transfuse to maintain Hb above 7 and platelet count above 15,000 Thanks for the consult. Patient will follow up with outptient integration lead upon discharge. Please feel free to call if you have questions History of Present Illness Reason for Consultation: Pancytopenia, burkitts lymphoma Attending Physician: Kim Gongora MD History of Present Illness 32 year old with multiple comorbidities including recent diagnosis of burkitts lymphoma currently receiving treatment with [facility] hematology. Patient was admitted for neutropenic fever. Labs obtained in ER revealed pancytopenia with wbc of 0.11, Hb of 6.4, platelet count of 14,000. Patient not seen in person today so most of clinical history was obtained from reviewing chart and discussion with ED physician. Per history, he last received chemotherapy on Thursday with GCSF support. Also transfused with 1 unit PRBC for anemia outpatient prior to admission. While in ER was febrile with temp of 38.1 Currently on broad spectrum antibiotics with vancomycin cefepime. Urinalysis, respiratory panel, chest x ray have been negative. Blood cultures pending Allergies Allergy/AdvReac Type Severity Reaction Status Date / Time No Known Allergies Allergy Verified 09/18/23 20:24 Home Medications Medication Instructions Recorded Confirmed Type celecoxib 200 mg capsule 200 mg PO QAM 07/02/21 09/18/23 History hydrochlorothiazide 12.5 mg tablet 12.5 mg PO DAILY 07/02/21 09/18/23 History aspirin 81 mg tablet,delayed 81 mg PO DAILY 12/03/21 09/18/23 History release (Brad Low Dose Aspirin) divalproex 500 mg tablet,extended 500 mg PO BID 12/03/21 09/18/23 History release 24 hr (Depakote ER) propranolol 40 mg tablet 40 mg PO BID 12/03/21 09/18/23 History topiramate 100 mg tablet (Topamax) 100 mg PO BID 12/03/21 09/18/23 History Magic Swizzle 15 ml mucous membrane QID MOUTH 09/18/23 09/18/23 History IRRITATION acyclovir 400 mg tablet 400 mg PO BID 09/18/23 09/18/23 History albuterol sulfate 90 mcg/actuation 2 inh inhalation Q4H PRN Shortness 09/18/23 09/18/23 History aerosol inhaler Of Breath Or Wheezing allopurinol 300 mg tablet 300 mg PO QAM 09/18/23 09/18/23 History buprenorphine HCl 2 mg sublingual 1 mg sublingual BID 09/18/23 09/18/23 History tablet cetirizine 10 mg tablet 10 mg PO QAM 09/18/23 09/18/23 History famotidine 20 mg tablet 20 mg PO DAILY 09/18/23 09/18/23 History fluconazole 200 mg tablet 400 mg PO QAM 09/18/23 09/18/23 History fluticasone 250 mcg-salmeterol 50 1 inh inhalation BID 09/18/23 09/18/23 History mcg/dose blistr powdr for inhalation levofloxacin 750 mg tablet 750 mg PO QAM PRN IF ANC <500. 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) Hypertension Cerebral vasculitis Surgical History S/P tonsillectomy Family History Mother Hypertension Social History Smoking Status: Former smoker Tobacco Type: Cigarettes Age Quit Using Tobacco: 30; Cigarettes Per Day: 10; Smoking End Date: quit 2 years ago; Second Hand Exposure: No; Do You Dip or Chew Tobacco: No; Tobacco Cessation Education Requested by Patient: No Hx Alcohol Use: No Hx Substance Use: No Preferred Language: [place] Communication Ability: Effective 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 Beliefs That Will Affect Care: None marital status: Single Current Living Situation: Family Current Living Situation Comment: lives with s/o current occupational status: disabled Other Information That Helps Us Care for You: No Feels Safe at Home: Yes Safety Concerns: Feels Safe At This Time Assistive Devices: None Assistive Devices Comment: right chest port Results & Data Vital Signs (Past 12 Hours) Vital Signs Temp Pulse Pulse Resp BP BP Pulse Ox 09/19/23 08:48 37.9 C H 103 H 18 131/87 97 09/19/23 08:15 20 123/75 96 09/19/23 08:00 109 H 20 133/78 93 09/19/23 07:48 37.5 C 119 H 20 137/86 99 09/19/23 07:47 108 H 15 95 09/19/23 07:45 140/94 09/19/23 07:45 140/94 09/19/23 07:45 37.3 C 108 H 20 140/53 L 95 09/19/23 07:44 112 H 20 97 09/19/23 07:30 145/83 H 09/19/23 07:30 145/83 H 09/19/23 07:30 145/83 H 09/19/23 07:20 107 H 19 97 09/19/23 07:17 114 H 19 99 09/19/23 07:15 124/83 09/19/23 07:15 124/83 09/19/23 07:15 124/83 09/19/23 07:15 124/83 09/19/23 07:09 113 H 27 H 99 09/19/23 07:00 128/108 H 09/19/23 06:54 108 H 15 100 09/19/23 06:46 37 C 106 H 18 140/87 99 09/19/23 06:45 140/87 09/19/23 05:20 37.1 C 09/19/23 04:37 09/19/23 04:37 37.5 C 102 H 19 139/80 97 09/19/23 04:12 37.2 C 105 H 18 125/70 97 09/19/23 03:35 37.5 C 99 H 16 131/87 100 09/19/23 02:35 37.1 C 96 H 14 114/65 96 09/19/23 01:35 37.6 C 107 H 14 134/74 100 09/19/23 01:05 37.4 C 108 H 19 108/65 98 09/19/23 00:50 36.6 C 102 H 17 129/65 99 09/19/23 00:30 36.8 C 103 H 14 132/73 98 09/18/23 23:28 38.1 C H 104 H 17 136/83 100 09/18/23 22:28 37.8 C H 98 H 16 123/71 99 09/18/23 21:28 37.3 C 100 H 16 147/77 H 100 09/18/23 21:28 37.3 C 103 H 18 147/77 H 100 Pulse Ox O2 Del Method O2 Del Method 09/19/23 08:48 09/19/23 08:15 09/19/23 08:00 09/19/23 07:48 09/19/23 07:47 09/19/23 07:45 09/19/23 07:45 09/19/23 07:45 09/19/23 07:44 09/19/23 07:30 09/19/23 07:30 09/19/23 07:30 09/19/23 07:20 09/19/23 07:17 09/19/23 07:15 09/19/23 07:15 09/19/23 07:15 09/19/23 07:15 09/19/23 07:09 09/19/23 07:00 09/19/23 06:54 09/19/23 06:46 09/19/23 06:45 09/19/23 05:20 09/19/23 04:37 98 Room Air 09/19/23 04:37 Room Air 09/19/23 04:12 09/19/23 03:35 09/19/23 02:35 09/19/23 01:35 09/19/23 01:05 09/19/23 00:50 09/19/23 00:30 09/18/23 23:28 09/18/23 22:28 09/18/23 21:28 09/18/23 21:28
[2023-09-19 11:53] LABS: Hematocrit (blood only) 19.9 % (42.0-52.0); Hemoglobin 6.9 g/dl (14.0-18.0); Mean Corpuscular Hemoglobin 30.9 pg (25.0-34.0); Mean Corpuscular Hgb Conc 34.7 g/dL (32.0-36.0); Mean Corpuscular Volume 89.2 fL (80.0-100.0); Mean Platelet Volume 12.8 fL (9.4-12.4); Neutrophils # (auto) < 0.50 K/uL (1.40-6.50); Platelet Count 23 K/uL (130-400); RDW Coefficient of Variation 15.4 % (11.5-14.5); RDW Standard Deviation 50.2 fL (36.4-46.3); Red Blood Count 2.23 M/uL (4.70-6.10); White Blood Count 0.22 K/ul (4.8-10.8)
[2023-09-19 12:01] LABS: Potassium 3.4 mmol/L (3.5-5.1)
[2023-09-19 12:27] LABS: Folate (Folic Acid),Ser orPlas 3.26 ng/ml (>5.38)
--- NOTE | 2023-09-19 13:18 | Hospitalist Progress Note ---
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 After transfusion he went to local [place] pool to see his friends. Today morning he woke up complaining of swelling under the tongue, nausea and vomited a couple of times and not feeling well and mother brought him here today. In the ER he was spiking temperature. And also has pancytopenia. Was given IV cefepime and Vanco for febrile neutropenia. No diarrhea. No blood in the stools or black stools as per mother. Micturating okay. No chest pain or shortness of breath. No cough. No chills. Currently patient is sleeping. Arousable but goes back to sleep. All the history From mother. Because of the swelling of the tongue and soreness in mouth on soft food currently.. Hemodynamics are okay. Febrile neutropenia Neutropenia precautions Empiric IV cefepime and Vanco Temperature of 38.1 at presentation and since then afebrile except 37.9 noted to be this morning Blood culture is pending He has been feeling little better Will continue current intravenous antibiotic Temperature went up to 37.8 as of early this morning without any sweating Blood cultures have been negative which was taken on second of this month Will continue current intravenous antibiotic and repeat blood culture Pancytopenia Chemo induced pancytopenia-received chemo last Thursday Hemoglobin 6.4, WBC 0.1, platelets 14 K Received 2 units of PRBC and 1 unit of platelet pheresis Hemoglobin remains low at 6.9 and platelet slightly improved at 23 Appreciate hematology oncology input and recommendation Will give another unit of blood transfusion Will administer 40 of intravenous Lasix as he is having positive balance so far No evidence of acute bleeding Will continue to monitor White count is slightly better at 1.56 and hemoglobin remains low at 7.6 and platelet is 24 unchanged Will monitor CBC and platelet Burkitt's lymphoma On chemo Continue chronic suppressive antibiotics Continue home pain medications and close monitor Follow-up with hematology/oncology Swelling under tongue Sore mouth Continue Magic mouthwash Can consider GI consult No significant swelling of the tongue and no bleeding on examination Will monitor-still has minimal swelling but has been eating and drinking reasonably well History of seizures On Depakote and Topamax Migraines On Topamax Hypertension On propranolol Hypokalemia Replace Continue home potassium supplements Follow labs GERD Protonix and famotidine 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 Admission and Anticipated Discharge Date Admission Date: September 19, 2023 Subjective 09/19/2023 The patient was seen and examined in ICU He complains to have some swelling and has had nausea vomiting prior to admission Noted to have neutropenic fever with severe pancytopenia status post chemotherapy for Burkitt's lymphoma He has been feeling a little better with persistence of the tongue swelling Denies any shortness of breath, fever, chills or sweating 09/20/2023 The patient was seen and examined in telemetry unit He still complains some tongue swelling and generalized weakness No fever and no chills no sweating Has had nausea related to with medication Review of Systems Review of Systems: All systems reviewed and are unremarkable except as noted below Physical Exam Physical Exam: Sitting at the side of the bed without any acute distress Constitutional: well developed, well nourished, + ill appearing and + obese Eyes: PERRL, conjunctivae normal, anicteric sclerae ENMT: external ear and nose normal, oropharynx normal Neck: trachea midline, no thyromegaly Respiratory: no respiratory distress Auscultation: lungs clear to auscultation bilaterally Cardiovascular: Rate/Rhythm: regular rate and regular rhythm; not tachycardic Heart Sounds: normal S1 and normal S2; no murmur Extremities: + edema (1+ edema bilaterally hello no neurology. No it is not emergent setting I c) Gastrointestinal (Abdomen): Inspection/Auscultation: normal bowel sounds; abdomen not distended Percussion/Palpation: abdomen soft; abdomen nontender Musculoskeletal: No acute arthritis involving any of the joint Neurologic: normal touch/pain/proprioception and moves all extremities; no focal motor deficits Psychiatric: A+Ox3, euthymic affect Lymphatic: no cervical or axillary lymphadenopathy Results & Data Results & Data Vital Signs (Past 12 Hours) Vital Signs Temp Pulse Pulse Resp BP BP Pulse Ox 09/19/23 10:53 36.9 C 81 18 123/74 97 09/19/23 10:22 09/19/23 09:48 37.1 C 84 18 116/71 96 09/19/23 09:41 88 09/19/23 08:48 37.9 C H 103 H 18 131/87 97 09/19/23 08:15 20 123/75 96 09/19/23 08:00 109 H 20 133/78 93 09/19/23 07:48 37.5 C 119 H 20 137/86 99 09/19/23 07:47 108 H 15 95 09/19/23 07:45 140/94 09/19/23 07:45 140/94 09/19/23 07:45 37.3 C 108 H 20 140/53 L 95 09/19/23 07:44 112 H 20 97 09/19/23 07:30 145/83 H 09/19/23 07:30 145/83 H 09/19/23 07:30 145/83 H 09/19/23 07:20 107 H 19 97 09/19/23 07:17 114 H 19 99 09/19/23 07:15 124/83 09/19/23 07:15 124/83 09/19/23 07:15 124/83 09/19/23 07:15 124/83 09/19/23 07:09 113 H 27 H 99 09/19/23 07:00 128/108 H 09/19/23 06:54 108 H 15 100 09/19/23 06:46 37 C 106 H 18 140/87 99 09/19/23 06:45 140/87 09/19/23 05:20 37.1 C 09/19/23 04:37 09/19/23 04:37 37.5 C 102 H 19 139/80 97 09/19/23 04:12 37.2 C 105 H 18 125/70 97 09/19/23 03:35 37.5 C 99 H 16 131/87 100 09/19/23 02:35 37.1 C 96 H 14 114/65 96 09/19/23 01:35 37.6 C 107 H 14 134/74 100 Pulse Ox O2 Del Method O2 Del Method 09/19/23 10:53 09/19/23 10:22 Room Air 09/19/23 09:48 09/19/23 09:41 09/19/23 08:48 09/19/23 08:15 09/19/23 08:00 09/19/23 07:48 09/19/23 07:47 09/19/23 07:45 09/19/23 07:45 09/19/23 07:45 09/19/23 07:44 09/19/23 07:30 09/19/23 07:30 09/19/23 07:30 09/19/23 07:20 09/19/23 07:17 09/19/23 07:15 09/19/23 07:15 09/19/23 07:15 09/19/23 07:15 09/19/23 07:09 09/19/23 07:00 09/19/23 06:54 09/19/23 06:46 09/19/23 06:45 09/19/23 05:20 09/19/23 04:37 98 Room Air 09/19/23 04:37 Room Air 09/19/23 04:12 09/19/23 03:35 09/19/23 02:35 09/19/23 01:35 Laboratory Results Short CBC 09/18/23 09/19/23 09/19/23 Range/Units 15:40 04:44 10:58 WBC 0.11 L* 0.18 L* 0.22 L* (4.8-10.8) K/ul Hgb 6.4 L* 6.6 L* 6.9 L* (14.0-18.0) g/dl Hct 18.8 L* 18.7 L* 19.9 L* (42.0-52.0) % Plt Count 14 L* 25 L* D 23 L* (130-400) K/uL [facility] 09/18/23 09/19/23 09/19/23 15:40 04:44 10:58 Sodium 138 138 Potassium 3.2 L 3.1 L 3.4 L Chloride 107 108 H Carbon Dioxide 24 24 BUN 11 9 Creatinine 0.55 L 0.59 L Glucose 134 H 111 H Calcium 9.3 8.6 Liver Function 09/18/23 Range/Units 15:40 Total Bilirubin 0.8 (0.2-1.0) mg/dl AST 10 L (13-39) U/L ALT 20 (7-52) U/L Alkaline Phosphatase 70 (34-104) U/L Albumin 3.9 (3.4-5.0) gm/dl Urine 09/18/23 Range/Units 18:55 Urine Color Yellow Urine Appearance Clear (Clear) Urine pH 7.0 (4.5-7.5) Ur Specific [place] 1.015 (1.000-1.030) Urine Protein Negative (Negative) Urine Glucose (UA) Negative (Negative) Short CBC 09/19/23 09/20/23 Range/Units 17:09 07:21 WBC 0.27 L* 0.56 L* (4.8-10.8) K/ul Hgb 8.3 L 7.6 L (14.0-18.0) g/dl Hct 23.5 L 21.8 L (42.0-52.0) % Plt Count 23 L* 24 L* (130-400) K/uL [facility] 09/19/23 09/20/23 17:09 07:21 Sodium 137 140 Potassium 3.4 L 3.5 Chloride 107 111 H Carbon Dioxide 23 23 BUN 8 7 Creatinine 0.63 0.61 Glucose 137 H 103 H Calcium 9.2 8.4 L Medications Administered Current Inpatient Medications Acetaminophen (Acetaminophen 325 Mg Tab) 650 mg PO Q4H PRN PRN Reason: Pain or Fever Stop: 10/19/23 04:36 Last Admin: 09/19/23 09:07 Dose: 650 mg Acyclovir (Acyclovir 400 Mg Tab) 400 mg PO BID [facility] Stop: 10/19/23 08:59 Last Admin: 09/19/23 08:05 Dose: 400 mg Albuterol (Albuterol Hfa 8 Gm Inhaler) 2 puffs INH Q4H PRN PRN Reason: Shortness Of Breath Or Wheezin Stop: 10/19/23 04:36 Allopurinol (Allopurinol 300 Mg Tab) 300 mg PO QAM [facility] Stop: 10/19/23 08:59 Last Admin: 09/19/23 08:06 Dose: 300 mg Aspirin (Aspirin 81 Mg Ectab) 81 mg PO DAILY [facility] Stop: 10/19/23 08:59 Last Admin: 09/19/23 08:56 Dose: Not Given Buprenorphine HCl (Buprenorphine Hcl 2 Mg Subl) 1 mg SL BID [facility] Stop: 10/19/23 08:59 Last Admin: 09/19/23 08:15 Dose: 1 mg Cetirizine HCl (Cetirizine Hcl 10 Mg Tablet) 10 mg PO QAM [facility] Stop: 10/19/23 08:59 Last Admin: 09/19/23 08:06 Dose: 10 mg Divalproex Sodium (Divalproex Extended Release 500 Mg Tab) 500 mg PO BID [facility] Stop: 10/19/23 08:59 Last Admin: 09/19/23 08:05 Dose: 500 mg Famotidine (Famotidine 20 Mg Tab) 20 mg PO DAILY [facility] Stop: 10/19/23 08:59 Last Admin: 09/19/23 08:06 Dose: 20 mg Fluconazole (Fluconazole 100 Mg Tab) 400 mg PO QAM [facility] Stop: 10/19/23 08:59 Last Admin: 09/19/23 08:06 Dose: 400 mg Fluticasone/Vilanterol (Fluticasone/Vilanterol 200/25mcg 14 Puffs/Inhaler) 1 puffs INH DAILY [facility] Stop: 10/19/23 08:59 Last Admin: 09/19/23 07:54 Dose: 1 puffs Sodium Chloride (Nss) 1,000 mls @ 80 mls/hr IV .[id number] [facility] Stop: 10/19/23 04:36 Last Admin: 09/19/23 05:43 Dose: 80 mls/hr Cefepime HCl 2,000 mg/ Syringe 20 mls @ 5 mls/min IV Q8H [facility]; Protocol Stop: 09/26/23 07:59 Last Admin: 09/19/23 07:55 Dose: 5 mls/min Sodium Chloride (Nss) 250 mls @ 15 mls/hr IV .[id number] PRN PRN Reason: For Transfusion Duration Stop: 09/19/23 15:57 Sodium Chloride (Nss) 250 mls @ 15 mls/hr IV .[id number] PRN PRN Reason: For Transfusion Duration Stop: 09/19/23 16:18 Vancomycin HCl 1,500 mg/ (Sodium Chloride) 530 mls @ 200 mls/hr IV Q8H [facility] Stop: 09/21/23 07:59 Last Infusion: 09/19/23 10:54 Dose: Infused Sodium Chloride (Nss) 250 mls @ 15 mls/hr IV .[id number] PRN PRN Reason: For Transfusion Duration Stop: 09/19/23 22:02 Miscellaneous Information (Vancomycin Consult Active) 1 each N/A UD PRN PRN Reason: Consult Stop: 10/18/23 23:40 Morphine Sulfate (Morphine Sulfate Ir 15 Mg Tab (Immediate Release)) 15 mg PO Q6H PRN PRN Reason: Pain Stop: 10/03/23 04:36 Multi-Ingredient Mouthwash/Gargle (First - Mouthwash Blm 119 Ml) 15 ml PO QID [facility] Stop: 10/19/23 08:59 Last Admin: 09/19/23 07:54 Dose: 15 ml Nitroglycerin (Nitroglycerin Sl 0.4 Mg/Tab Tab) 0.4 mg SL Q5M PRN PRN Reason: Chest Pain Stop: 10/19/23 04:36 Pantoprazole Sodium ([facility] 40 Mg Tab) [facility]: 10/19/23 06:29 Last Admin: 09/19/23 06:24 Dose: 40 mg Potassium Chloride (Potassium Chloride Crtab 20 Meq Tabcr) 20 meq PO BID [facility] Stop: 10/19/23 08:59 Last Admin: 09/19/23 08:06 Dose: 20 meq Propranolol HCl (Propranolol Hcl 20 Mg Tab) 40 mg PO BID [facility] Stop: 10/19/23 08:59 Last Admin: 09/19/23 08:06 Dose: 40 mg Topiramate (Topiramate 100 Mg Tab) 100 mg PO BID [facility] Stop: 10/19/23 08:59 Last Admin: 09/19/23 08:06 Dose: 100 mg
[2023-09-19] MEDS: FUROSEMIDE 40 MG/4 ML VIAL IV ONE (15:17)
[2023-09-19 17:52] LABS: BUN Creatinine Ratio 12.7 (10-20); Calcium 9.2 mg/dl (8.6-10.3); Creatinine Clr Calc Pharmacy 206.2 ml/min; Est GFR (Non-African American) 128.6 ml/min; Magnesium 1.7 mg/dl (1.7-2.4); Potassium 3.4 mmol/L (3.5-5.1)
[2023-09-19 17:54] LABS: Hematocrit (blood only) 23.5 % (42.0-52.0); Hemoglobin 8.3 g/dl (14.0-18.0); Mean Corpuscular Hgb Conc 35.3 g/dL (32.0-36.0); Mean Corpuscular Volume 87.7 fL (80.0-100.0); RDW Coefficient of Variation 15.5 % (11.5-14.5); RDW Standard Deviation 49.5 fL (36.4-46.3); Red Blood Count 2.68 M/uL (4.70-6.10)
[2023-09-19 17:55] LABS: Mean Platelet Volume 9.3 fL (9.4-12.4); Neutrophils # (auto) < 0.50 K/uL (1.40-6.50); Platelet Count 23 K/uL (130-400); White Blood Count 0.27 K/ul (4.8-10.8)
[2023-09-19] MEDS ORDERED: POTASSIUM PHOS 3 MMOL/1 ML INFUSION IV STA (18:03)
[2023-09-19] MEDS: POTASSIUM PHOSPHATE 24 MMOL in SODIUM CHLORIDE 0.9% 500 ML IV ONE (18:50)
[2023-09-19] MEDS: MoRPHine SULFATE IR 15 MG TAB (IMMEDIATE RELEASE) PO PRN (19:53)
[2023-09-20] MEDS: VANCOMYCIN LEVEL ONE (07:33)
[2023-09-20 07:52] LABS: Hematocrit (blood only) 21.8 % (42.0-52.0); Hemoglobin 7.6 g/dl (14.0-18.0); Mean Corpuscular Hemoglobin 30.3 pg (25.0-34.0); Mean Corpuscular Hgb Conc 34.9 g/dL (32.0-36.0); Mean Corpuscular Volume 86.9 fL (80.0-100.0); Platelet Count 24 K/uL (130-400); RDW Coefficient of Variation 15.9 % (11.5-14.5); RDW Standard Deviation 50.4 fL (36.4-46.3); Red Blood Count 2.51 M/uL (4.70-6.10); White Blood Count 0.56 K/ul (4.8-10.8)
[2023-09-20 08:01] LABS: Anion Gap 6 (3-11); BUN Creatinine Ratio 11.5 (10-20); Blood Urea Nitrogen 7 mg/dl (6-23); Calcium 8.4 mg/dl (8.6-10.3); Carbon Dioxide 23 mmol/L (21-32); Chloride 111 mmol/L (98-107); Creatinine Clr Calc Pharmacy 212.6 ml/min; Est GFR (African American) > 150.0 ml/min; Est GFR (Non-African American) 130.3 ml/min; Glucose 103 mg/dl (70-99(Fasting)); Magnesium 1.6 mg/dl (1.7-2.4); Phosphorus 2.4 mg/dl (2.5-4.9); Potassium 3.5 mmol/L (3.5-5.1); Sodium 140 mmol/L (136-145)
[2023-09-20] MEDS: PROMETHAZINE HCL 12.5 MG in SODIUM CHLORIDE 0.9% 50 ML IV PRN (08:24)
[2023-09-20 08:27] LABS: Basophils # (auto) 0.01 K/uL (0.00-0.20); Basophils % (auto) 1.8 %; Lymphocytes % (auto) 35.7 %; Monocytes # (auto) 0.27 K/uL (0.11-0.59); Monocytes % (auto) 48.2 %; Neutrophils # (auto) 0.08 K/uL (1.40-6.50); Neutrophils % (auto) 14.3 %; Polychromasia 1+; Tear Drop Cells 1+
--- NOTE | 2023-09-20 09:20 | Pharmacy Report ---
Pharmacy PK ABX Note - Date of Service September 20, 2023 - Assessment and Plan Assessment 09/20/23 * BC with no growth to date. Fever improving. * Vancomycin trough level obtained this morning, 17.4 mcg/mL. AUC dosing software indicates current dose will exceed target AUC/SAMANTHA of 400-600. Will decrease vancomycin dose. 32 year old M receiving vancomycin/cefepime for treatment of febrile neutropenia. Pertinent microbiologic data includes: Blood cultures pending. Patient is pancytopenic, last chemo received last week. Tmax 38.1 Plan Vancomycin * Change to 1250 mg IV every 8 hours * Regimen is predicted to achieve target AUC/SAMANTHA of 400-600 mg/L.hr * est. AUC/SAMANTHA at steady state: 511 mg/L.hr * Will repeat level in the next 48-72 hours if therapy is continued (currently ordered x 48 hours only) and/or change in patient clinical status Pharmacy will continue to follow and will adjust dose/frequency as necessary. Thank you.
[2023-09-20] MEDS: VANCOMYCIN HCL 1,250 MG in SODIUM CHLORIDE 0.9% 250 ML IV SCH (16:07)
[2023-09-21 07:07] LABS: Anion Gap 6 (3-11); BUN Creatinine Ratio 9.1 (10-20); Blood Urea Nitrogen 5 mg/dl (6-23); Calcium 8.8 mg/dl (8.6-10.3); Carbon Dioxide 23 mmol/L (21-32); Chloride 110 mmol/L (98-107); Creatinine Clr Calc Pharmacy 234.2 ml/min; Est GFR (African American) > 150.0 ml/min; Glucose 89 mg/dl (70-99(Fasting)); Magnesium 1.5 mg/dl (1.7-2.4); Phosphorus 2.7 mg/dl (2.5-4.9); Potassium 3.5 mmol/L (3.5-5.1); Sodium 139 mmol/L (136-145)
[2023-09-21 07:14] LABS: Hematocrit (blood only) 22.4 % (42.0-52.0); Hemoglobin 7.6 g/dl (14.0-18.0); Mean Corpuscular Hemoglobin 30.5 pg (25.0-34.0); Mean Corpuscular Hgb Conc 33.9 g/dL (32.0-36.0); Nucleated RBC # (auto) 0.04 K/uL (0.00-0.12); Nucleated RBC % (auto) 1.4 %; Platelet Count 20 K/uL (130-400); RDW Standard Deviation 53.3 fL (36.4-46.3); Red Blood Count 2.49 M/uL (4.70-6.10)
[2023-09-21 08:17] LABS: ALC (manual) 0.55 K/uL (1.2-3.4); ANC (manual) 1.25 K/uL (1.4-6.5); Basophils # (manual) 0.09 K/uL (0-0.2); Basophils % (manual) 3 %; Dohle Bodies 2+; Lymphocytes # (manual) 0.55 K/uL (1.2-3.4); Lymphocytes % (manual) 19 %; Metamyelocytes # (manual) 0.09 K/uL (0-0); Metamyelocytes % (manual) 3 %; Monocytes # (manual) 0.84 K/uL (0.11-0.59); Monocytes % (manual) 29 %; Myelocytes # (manual) 0.09 K/uL (0-0); Myelocytes % (manual) 3 %; Neutrophils # (manual) 1.25 K/uL (1.40-6.50); Neutrophils % (manual) 43 %; Ovalocytes 1+; Polychromasia 1+; Tear Drop Cells 1+
[2023-09-21] MEDS: MAGNESIUM SULFATE / D5W 1 GM/100 ML BAG IV ONE (09:55)
[2023-09-21] MEDS ORDERED: ACETAMINOPHEN 1,000 MG/100 ML VIAL IV PRN (10:23)
[2023-09-21] MEDS: POTASSIUM CHLORIDE CRTAB 20 MEQ TABCR PO STA (10:27)
--- NOTE | 2023-09-21 16:00 | Hospitalist Progress Note ---
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, history of high risk of tumor lysis syndrome,t history of primary [employer]CIAL UNDERWR[employer] angiitis/occipital CVA in his childhood at the age of 7, had treatments from [id number], s/p craniotomy at age 10 in [place] and has been off immunosuppressive medication for more than 10 years: Following with [facility], cognitive and learning disabilities, patient recently in June of this year was diagnosed with Burkitt's lymphoma of intra-abdominal lymph nodes ,on chemotherapy finished 4 cycles and 2 more cycles left, chemotherapy- induced pancytopenia, last chemo last Thursday ,patient also had Neulasta after chemo and needed blood transfusion yesterday as outpatient due to blood counts being low. After transfusion he went to local [place] to see his friends. Today morning he woke up complaining of swelling under the tongue, nausea and vomited a couple of times and not feeling well and mother brought him here t [place]. In the ER he was spiking temperature. And also has pancytopenia. Was given IV cefepime and Vanco for febrile neutropenia. No diarrhea. No blood in the stools or black stools as per mother. Micturating okay. No chest pain or shortness of breath. No cough. No chills. Currently patient is sleeping. Arousable but goes back to sleep. All the history From mother. Because of the swelling of the tongue and soreness in mouth on soft food currently.. Hemodynamics are okay. Febrile neutropenia Neutropenia precautions Empiric IV cefepime and Vanco Temperature of 38.1 at presentation and since then afebrile except 37.9 noted to be this morning Blood culture is pending He has been feeling little better Will continue current intravenous antibiotic Temperature went up to 37.8 as of early this morning without any sweating Blood cultures have been negative which was taken on second of this month Will continue current intravenous antibiotic and repeat blood culture No more fever and chills and the white count has been improving Clinically better and awaiting blood culture to come back Pancytopenia Chemo induced pancytopenia-received chemo last Thursday Hemoglobin 6.4, WBC 0.1, platelets 14 K Received 2 units of PRBC and 1 unit of platelet pheresis Hemoglobin remains low at 6.9 and platelet slightly improved at 23 Appreciate hematology oncology input and recommendation Will give another unit of blood transfusion Will administer 40 of intravenous Lasix as he is having positive balance so far No evidence of acute bleeding Will continue to monitor White count is slightly better at 1.56 and hemoglobin remains low at 7.6 and platelet is 24 unchanged White blood cell count has improved a lot and hemoglobin remains stable but platelet is not showing any improvement Will continue to monitor Burkitt's lymphoma On chemo Continue chronic suppressive antibiotics Continue home pain medications and close monitor Follow-up with hematology/oncology Swelling under tongue Sore mouth Continue Magic mouthwash Can consider GI consult No significant swelling of the tongue and no bleeding on examination Will monitor-still has minimal swelling but has been eating and drinking reaso nably well No obvious swelling of the tongue but he still feels tongue to be swollen Has been eating reasonably History of seizures On Depakote and Topamax Migraines On Topamax Hypertension On propranolol Hypokalemia Replace Continue home potassium supplements Follow labs GERD Protonix and famotidine 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 Admission and Anticipated Discharge Date Admission Date: September 19, 2023 Subjective 09/19/2023 The patient was seen and examined in ICU He complains to have some swelling and has had nausea vomiting prior to admission Noted to have neutropenic fever with severe pancytopenia status post chemotherapy for Burkitt's lymphoma He has been feeling a little better with persistence of the tongue swelling Denies any shortness of breath, fever, chills or sweating 09/20/2023 The patient was seen and examined in telemetry unit He still complains some tongue swelling and generalized weakness No fever and no chills no sweating Has had nausea related to with medication 09/21/2023 The patient was seen and examined in telemetry unit He was noted to be very drowsy this morning and mentioned that he was given morphine for pain control Did not have any apparent distress No more fever and no chills and he has been feeling little better Review of Systems Review of Systems: All systems reviewed and are unremarkable except as noted below Physical Exam Physical Exam: Sitting at the side of the bed without any acute distress Constitutional: well developed, well nourished, + ill appearing and + obese Eyes: PERRL, conjunctivae normal, anicteric sclerae ENMT: external ear and nose normal, oropharynx normal Neck: trachea midline, no thyromegaly Respiratory: no respiratory distress Auscultation: lungs clear to auscultation bilaterally Cardiovascular: Rate/Rhythm: regular rate and regular rhythm; not tachycardic Heart Sounds: normal S1 and normal S2; no murmur Extremities: + edema (1+ edema bilaterally hello no neurology. No it is not emergent setting I c) Gastrointestinal (Abdomen): Inspection/Auscultation: normal bowel sounds; abdomen not distended Percussion/Palpation: abdomen soft; abdomen nontender Neurologic: normal touch/pain/proprioception and moves all extremities; no focal motor deficits Psychiatric: A+Ox3, euthymic affect Lymphatic: no cervical or axillary lymphadenopathy Results & Data Results & Data Vital Signs (Past 12 Hours) Vital Signs Temp Pulse Pulse Resp BP Pulse Ox O2 Del Method 09/21/23 15:18 36.9 C 86 17 122/77 98 Room Air 09/21/23 15:11 92 H 09/21/23 11:27 36.8 C 97 H 18 125/79 99 Room Air 09/21/23 09:00 Room Air 09/21/23 08:00 85 09/21/23 07:57 37.1 C 72 20 108/71 98 Room Air Laboratory Results Short CBC 09/21/23 Range/Units 06:00 WBC 2.90 L (4.8-10.8) K/ul Hgb 7.6 L (14.0-18.0) g/dl Hct 22.4 L (42.0-52.0) % Plt Count 20 L* (130-400) K/uL [facility] 09/21/23 06:00 Sodium 139 Potassium 3.5 Chloride 110 H Carbon Dioxide 23 BUN 5 L Creatinine 0.55 L Glucose 89 Calcium 8.8 Medications Administered Current Inpatient Medications Acetaminophen (Acetaminophen 325 Mg Tab) 650 mg PO Q4H PRN PRN Reason: Pain or Fever Stop: 10/19/23 04:36 Last Admin: 09/20/23 22:34 Dose: 650 mg Acyclovir (Acyclovir 400 Mg Tab) 400 mg PO BID [facility] Stop: 10/19/23 08:59 Last Admin: 09/21/23 10:27 Dose: 400 mg Albuterol (Albuterol Hfa 8 Gm Inhaler) 2 puffs INH Q4H PRN PRN Reason: Shortness Of Breath Or Wheezin Stop: 10/19/23 04:36 Allopurinol (Allopurinol 300 Mg Tab) 300 mg PO QAM [facility] Stop: 10/19/23 08:59 Last Admin: 09/21/23 10:26 Dose: 300 mg Aspirin (Aspirin 81 Mg Ectab) 81 mg PO DAILY [facility] Stop: 10/19/23 08:59 Last Admin: 09/20/23 09:41 Dose: Not Given Buprenorphine HCl (Buprenorphine Hcl 2 Mg Subl) 1 mg SL BID [facility] Stop: 10/19/23 08:59 Last Admin: 09/21/23 10:35 Dose: 1 mg Cetirizine HCl (Cetirizine Hcl 10 Mg Tablet) 10 mg PO QAM [facility] Stop: 10/19/23 08:59 Last Admin: 09/21/23 10:26 Dose: 10 mg Divalproex Sodium (Divalproex Extended Release 500 Mg Tab) 500 mg PO BID [facility] Stop: 10/19/23 08:59 Last Admin: 09/21/23 10:26 Dose: 500 mg Famotidine (Famotidine 20 Mg Tab) 20 mg PO DAILY [facility] Stop: 10/19/23 08:59 Last Admin: 09/21/23 10:26 Dose: 20 mg Fluconazole (Fluconazole 100 Mg Tab) 400 mg PO QAM [facility] Stop: 10/19/23 08:59 Last Admin: 09/21/23 10:26 Dose: 400 mg Fluticasone/Vilanterol (Fluticasone/Vilanterol 200/25mcg 14 Puffs/Inhaler) 1 puffs INH DAILY [facility] Stop: 10/19/23 08:59 Last Admin: 09/21/23 10:27 Dose: 1 puffs Cefepime HCl 2,000 mg/ Syringe 20 mls @ 5 mls/min IV Q8H [facility]; Protocol Stop: 09/26/23 07:59 Last Admin: 09/21/23 08:16 Dose: 5 mls/min Promethazine HCl 12.5 mg/ (Sodium Chloride) 50.5 mls @ 202 mls/hr IV Q6H PRN PRN Reason: Nausea And Vomiting Stop: 10/20/23 07:55 Last Admin: 09/21/23 15:15 Dose: 202 mls/hr Vancomycin HCl 1,250 mg/ (Sodium Chloride) 275 mls @ 200 mls/hr IV Q8H [facility] Stop: 09/23/23 15:59 Last Infusion: 09/21/23 09:56 Dose: Infused Acetaminophen (Ofirmev) 1,000 mg in 100 mls @ 400 mls/hr IV Q8H PRN PRN Reason: Pain Stop: 09/24/23 10:22 Miscellaneous Information (Vancomycin Consult Active) 1 each N/A UD PRN PRN Reason: Consult Stop: 10/18/23 23:40 Multi-Ingredient Mouthwash/Gargle (First - Mouthwash Blm 119 Ml) 15 ml PO QID [facility] Stop: 10/19/23 08:59 Last Admin: 09/21/23 12:59 Dose: 15 ml Nitroglycerin (Nitroglycerin Sl 0.4 Mg/Tab Tab) 0.4 mg SL Q5M PRN PRN Reason: Chest Pain Stop: 10/19/23 04:36 Pantoprazole Sodium (Pantoprazole 40 Mg Tab) 40 mg PO DAILYBB [facility] Stop: 10/19/23 06:29 Last Admin: 09/21/23 06:09 Dose: 40 mg Potassium Chloride (Potassium Chloride Crtab 20 Meq Tabcr) 20 meq PO BID [facility] Stop: 10/19/23 08:59 Last Admin: 09/21/23 10:28 Dose: 20 meq Propranolol HCl (Propranolol Hcl 20 Mg Tab) 40 mg PO BID [facility] Stop: 10/19/23 08:59 Last Admin: 09/21/23 10:26 Dose: 40 mg Topiramate (Topiramate 100 Mg Tab) 100 mg PO BID [facility] Stop: 10/19/23 08:59 Last Admin: 09/21/23 10:25 Dose: 100 mg
[2023-09-22 06:12] LABS: Anion Gap 4 (3-11); BUN Creatinine Ratio 6.9 (10-20); Blood Urea Nitrogen 4 mg/dl (6-23); Calcium 8.5 mg/dl (8.6-10.3); Carbon Dioxide 24 mmol/L (21-32); Chloride 111 mmol/L (98-107); Creatinine Clr Calc Pharmacy 221.9 ml/min; Est GFR (African American) > 150.0 ml/min; Glucose 108 mg/dl (70-99(Fasting)); Magnesium 1.8 mg/dl (1.7-2.4); Phosphorus 2.8 mg/dl (2.5-4.9); Potassium 3.6 mmol/L (3.5-5.1); Sodium 139 mmol/L (136-145)
[2023-09-22 06:44] LABS: Hematocrit (blood only) 22.2 % (42.0-52.0); Hemoglobin 7.5 g/dl (14.0-18.0); Mean Corpuscular Hemoglobin 30.7 pg (25.0-34.0); Mean Corpuscular Hgb Conc 33.8 g/dL (32.0-36.0); Nucleated RBC # (auto) 0.04 K/uL (0.00-0.12); Nucleated RBC % (auto) 0.5 %; Platelet Count 32 K/uL (130-400); RDW Coefficient of Variation 16.2 % (11.5-14.5); RDW Standard Deviation 54.1 fL (36.4-46.3); Red Blood Count 2.44 M/uL (4.70-6.10); White Blood Count 7.81 K/ul (4.8-10.8)
[2023-09-22 06:52] LABS: ALC (manual) 0.86 K/uL (1.2-3.4); ANC (manual) 4.76 K/uL (1.4-6.5); Basophils # (manual) 0.08 K/uL (0-0.2); Basophils % (manual) 1 %; Lymphocytes # (manual) 0.86 K/uL (1.2-3.4); Lymphocytes % (manual) 11 %; Metamyelocytes # (manual) 0.47 K/uL (0-0); Metamyelocytes % (manual) 6 %; Monocytes # (manual) 1.02 K/uL (0.11-0.59); Monocytes % (manual) 13 %; Myelocytes # (manual) 0.62 K/uL (0-0); Myelocytes % (manual) 8 %; Neutrophils # (manual) 4.76 K/uL (1.40-6.50); Neutrophils % (manual) 61 %; Polychromasia 2+; Tear Drop Cells 1+; Toxic Granulation 1+
[2023-09-22] MEDS: buprenorphine HCL 2 MG SUBL ONE (09:19)
--- NOTE | 2023-09-22 11:55 | Hospitalist Progress Note ---
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, history of high risk of tumor lysis syndrome,t history of primary [employer] angiitis/occipital CVA in his childhood at the age of 7, had treatments from [id number], s/p craniotomy at age 10 in [place] and has been off immunosuppressive medication for more than 10 years: Following with [facility], cognitive and learning disabilities, patient recently in June of this year was diagnosed with Burkitt's lymphoma of intra-abdominal lymph nodes ,on chemotherapy finished 4 cycles and 2 more cycles left, chemotherapy- induced pancytopenia, last chemo last Thursday ,patient also had Neulasta after chemo and needed blood transfusion yesterday as outpatient due to blood counts being low. After transfusion he went to local Sw[place] pool to see his friends. Today morning he woke up complaining of swelling under the tongue, nausea and vomited a couple of times and not feeling well and mother brought him here t [place]. In the ER he was spiking temperature. And also has pancytopenia. Was given IV cefepime and Vanco for febrile neutropenia. No diarrhea. No blood in the stools or black stools as per mother. Micturating okay. No chest pain or shortness of breath. No cough. No chills. Currently patient is sleeping. Arousable but goes back to sleep. All the history From mother. Because of the swelling of the tongue and soreness in mouth on soft food currently.. Hemodynamics are okay. Febrile neutropenia Neutropenia precautions Empiric IV cefepime and Vanco Temperature of 38.1 at presentation and since then afebrile except 37.9 noted to be this morning Blood culture is pending He has been feeling little better Will continue current intravenous antibiotic Temperature went up to 37.8 as of early this morning without any sweating Blood cultures have been negative which was taken on second of this month Will continue current intravenous antibiotic and repeat blood culture No more fever and chills and the white count has been improving Much better today without any significant symptoms Blood cultures x 2 have been negative No more fever for more than 24 hours Discussed with the pet house sitter, antibiotics will be discontinued and will be discharged home this afternoon Pancytopenia Chemo induced pancytopenia-received chemo last Thursday Hemoglobin 6.4, WBC 0.1, platelets 14 K Received 2 units of PRBC and 1 unit of platelet pheresis Hemoglobin remains low at 6.9 and platelet slightly improved at 23 Appreciate hematology oncology input and recommendation Will give another unit of blood transfusion Will administer 40 of intravenous Lasix as he is having positive balance so far No evidence of acute bleeding Will continue to monitor White count is slightly better at 1.56 and hemoglobin remains low at 7.6 and platelet is 24 unchanged White blood cell count has improved a lot and hemoglobin remains stable but platelet is not showing any improvement White count improved to normality and the platelet is minimally improved at 30 He has an appointment with his outpatient pet house sitter in about 2 to 3 days Discussed with the pet house sitter and he can be discharged Burkitt's lymphoma On chemo Continue chronic suppressive antibiotics Continue home pain medications and close monitor Follow-up with hematology/oncology Swelling under tongue Sore mouth Continue Magic mouthwash Can consider GI consult No significant swelling of the tongue and no bleeding on examination Will monitor-still has minimal swelling but has been eating and drinking reasonably well No obvious swelling of the tongue but he still feels tongue to be swollen Has been eating reasonably-denies any symptoms today History of seizures On Depakote and Topamax Migraines On Topamax Hypertension On propranolol Hypokalemia Replace Continue home potassium supplements Follow labs GERD Protonix and famotidine 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 Admission and Anticipated Discharge Date Admission Date: September 19, 2023 Subjective 09/19/2023 The patient was seen and examined in ICU He complains to have some swelling and has had nausea vomiting prior to admission Noted to have neutropenic fever with severe pancytopenia status post chemotherapy for Burkitt's lymphoma He has been feeling a little better with persistence of the tongue swelling Denies any shortness of breath, fever, chills or sweating 09/20/2023 The patient was seen and examined in telemetry unit He still complains some tongue swelling and generalized weakness No fever and no chills no sweating Has had nausea related to with medication 09/21/2023 The patient was seen and examined in telemetry unit He was noted to be very drowsy this morning and mentioned that he was given morphine for pain control Did not have any apparent distress No more fever and no chills and he has been feeling little better 09/22/2023 The patient was seen and examined in telemetry unit He has been weak and a little drowsy and does not have any other significant symptoms Remains afebrile the last more than 24 hours He has been ambulating in the room without any difficulties Review of Systems Review of Systems: All systems reviewed and are unremarkable except as noted below Physical Exam Physical Exam: Sitting at the side of the bed without any acute distress Constitutional: well developed, well nourished, + ill appearing and + obese Eyes: PERRL, conjunctivae normal, anicteric sclerae ENMT: external ear and nose normal, oropharynx normal Neck: trachea midline, no thyromegaly Respiratory: no respiratory distress Auscultation: lungs clear to auscultation bilaterally Cardiovascular: Rate/Rhythm: regular rate and regular rhythm; not tachycardic Heart Sounds: normal S1 and normal S2; no murmur Extremities: no edema (Trace edema bilaterally) Gastrointestinal (Abdomen): Inspection/Auscultation: normal bowel sounds; abdomen not distended Percussion/Palpation: abdomen soft; abdomen nontender Neurologic: normal touch/pain/proprioception and moves all extremities; no focal motor deficits Psychiatric: A+Ox3, euthymic affect Lymphatic: no cervical or axillary lymphadenopathy Results & Data Results & Data Vital Signs (Past 12 Hours) Vital Signs Temp Pulse Resp BP Pulse Ox O2 Del Method 09/22/23 11:35 36.9 C 85 18 130/75 99 Room Air 09/22/23 08:32 36.6 C 82 18 138/81 99 Room Air 09/22/23 02:55 36.9 C 77 17 120/63 98 Room Air Laboratory Results Short CBC 09/22/23 Range/Units 05:29 WBC 7.81 (4.8-10.8) K/ul Hgb 7.5 L (14.0-18.0) g/dl Hct 22.2 L (42.0-52.0) % Plt Count 32 L D (130-400) K/uL BMP 09/22/23 05:29 Sodium 139 Potassium 3.6 Chloride 111 H Carbon Dioxide 24 BUN 4 L Creatinine 0.58 L Glucose 108 H Calcium 8.5 L Medications Administered Current Inpatient Medications Acetaminophen (Acetaminophen 325 Mg Tab) 650 mg PO Q4H PRN PRN Reason: Pain or Fever Stop: 10/19/23 04:36 Last Admin: 09/20/23 22:34 Dose: 650 mg Acyclovir (Acyclovir 400 Mg Tab) 400 mg PO BID ON LICENSE OF [facility] Stop: 10/19/23 08:59 Last Admin: 09/22/23 08:18 Dose: 400 mg Albuterol (Albuterol Hfa 8 Gm Inhaler) 2 puffs INH Q4H PRN PRN Reason: Shortness Of Breath Or Wheezin Stop: 10/19/23 04:36 Allopurinol (Allopurinol 300 Mg Tab) 300 mg PO QAM ON LICENSE OF [facility] Stop: 10/19/23 08:59 Last Admin: 09/22/23 08:21 Dose: 300 mg Aspirin (Aspirin 81 Mg Ectab) 81 mg PO DAILY ON LICENSE OF [facility] Stop: 10/19/23 08:59 Last Admin: 09/20/23 09:41 Dose: Not Given Buprenorphine HCl (Buprenorphine Hcl 2 Mg Subl) 1 mg SL BID ON LICENSE OF [facility] Stop: 10/19/23 08:59 Last Admin: 09/22/23 08:34 Dose: 1 mg Cetirizine HCl (Cetirizine Hcl 10 Mg Tablet) 10 mg PO QAM ON LICENSE OF [facility] Stop: 10/19/23 08:59 Last Admin: 09/22/23 08:34 Dose: Not Given Divalproex Sodium (Divalproex Extended Release 500 Mg Tab) 500 mg PO BID ON LICENSE OF [facility] Stop: 10/19/23 08:59 Last Admin: 09/22/23 08:18 Dose: 500 mg Famotidine (Famotidine 20 Mg Tab) 20 mg PO DAILY ON LICENSE OF [facility] Stop: 10/19/23 08:59 Last Admin: 09/22/23 08:21 Dose: 20 mg Fluconazole (Fluconazole 100 Mg Tab) 400 mg PO QAM ON LICENSE OF [facility] Stop: 10/19/23 08:59 Last Admin: 09/22/23 08:20 Dose: 400 mg Fluticasone/Vilanterol (Fluticasone/Vilanterol 200/25mcg 14 Puffs/Inhaler) 1 puffs INH DAILY JARETH Stop: 10/19/23 08:59 Last Admin: 09/22/23 08:21 Dose: 1 puffs Cefepime HCl 2,000 mg/ Syringe 20 mls @ 5 mls/min IV Q8H ON LICENSE OF [facility]; Protocol Stop: 09/26/23 07:59 Last Admin: 09/22/23 08:34 Dose: 5 mls/min Promethazine HCl 12.5 mg/ (Sodium Chloride) 50.5 mls @ 202 mls/hr IV Q6H PRN PRN Reason: Nausea And Vomiting Stop: 10/20/23 07:55 Last Infusion: 09/21/23 16:15 Dose: Infused Acetaminophen (Ofirmev) 1,000 mg in 100 mls @ 400 mls/hr IV Q8H PRN PRN Reason: Pain Stop: 09/24/23 10:22 Multi-Ingredient Mouthwash/Gargle (First - Mouthwash Blm 119 Ml) 15 ml PO QID ON LICENSE OF [facility] Stop: 10/19/23 08:59 Last Admin: 09/22/23 08:18 Dose: 15 ml Nitroglycerin (Nitroglycerin Sl 0.4 Mg/Tab Tab) 0.4 mg SL Q5M PRN PRN Reason: Chest Pain Stop: 10/19/23 04:36 Pantoprazole Sodium (Pantop[facility]ole 40 Mg Tab) [facility] Stop: 10/19/23 06:29 Last Admin: 09/22/23 05:39 Dose: 40 mg Potassium Chloride (Potassium Chloride Crtab 20 Meq Tabcr) 20 meq PO BID ON LICENSE OF [facility] Stop: 10/19/23 08:59 Last Admin: 09/22/23 08:34 Dose: 20 meq Propranolol HCl (Propranolol Hcl 20 Mg Tab) 40 mg PO BID ON LICENSE OF [facility] Stop: 10/19/23 08:59 Last Admin: 09/22/23 08:20 Dose: 40 mg Topiramate (Topiramate 100 Mg Tab) 100 mg PO BID ON LICENSE OF [facility] Stop: 10/19/23 08:59 Last Admin: 09/22/23 08:18 Dose: 100 mg
--- NOTE | 2023-09-23 09:06 | Discharge Summary ---
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, history of high risk of tumor lysis syndrome, history of primary [employer] angiitis/occipital CVA in his childhood at the age of 7, had treatments from [id number], s/p craniotomy at age 10 in [place] and has been off immunosuppressive medication for more than 10 years: Following with [facility], cognitive and learning disabilities, patient recently in June of this year was diagnosed with Burkitt's lymphoma of intra-abdominal lymph nodes ,on chemotherapy finished 4 cycles and 2 more cycles left, chemotherapy- induced pancytopenia, last chemo was on last Thursday ,patient also had Neulasta after chemo and needed blood transfusion yesterday as outpatient due to blood counts being low. After transfusion he went to local Swimming pool to see his friends. Today morning he woke up complaining of swelling under the tongue, nausea and vomited a couple of times and not feeling well and mother brought him here today. In the ER he was spiking temperature. And also has pancytopenia. Was given IV cefepime and Vanco for febrile neutropenia. No diarrhea. No blood in the stools or black stools as per mother. Micturating okay. No chest pain or shortness of breath. No cough. No chills. Currently patient is sleeping. Arousable but goes back to sleep. All the history got From mother. Because of the swelling of the tongue and soreness in mouth on soft food currently.. Hemodynamics are okay. Past medical history. As mentioned above Past surgical history. Colonoscopy and EGD. IR biopsy. Open had surgery. Social history. Former smoker. Smoked 2 pack a day for 7 years. Quit smoking 2021. Alcohol rarely. No drug use. Family history. Mother had cervical cancer. Maternal aunt had uterine cancer. Maternal grandmother had uterine cancer. Admission Exam Per Admitting Provider Physical Exam: General- Drowsy Head- atraumatic Eyes- PERRL. ENT- oropharynx clear, Swelling under tounge seen Neck- supple, no JVD. Lungs- clear to auscultation, no wheezing or crackles Heart- regular rhythm; no murmur, no gallop. Abdomen- normal bowel sounds, soft, nontender, no distension Extremities- mild pretibial edema present, no erythema see Neuro- Drowsy but arousable PERRL,no facial palsy; no dysarthria; moves extremities Principal Diagnosis Febrile neutropenia, pancytopenia secondary to chemo, Burkitt's lymphoma with ongoing chemo Discharge Exam Sitting at the side of the bed without any acute distress Constitutional well developed, well nourished, + ill appearing and + obese Eyes PERRL, conjunctivae normal, anicteric sclerae ENMT external ear and nose normal, oropharynx normal Neck trachea midline, no thyromegaly Respiratory no respiratory distress Auscultation: lungs clear to auscultation bilaterally Cardiovascular Rate/Rhythm: regular rate and regular rhythm; not tachycardic Heart Sounds: normal S1 and normal S2; no murmur Extremities: no edema (Trace edema bilaterally) Gastrointestinal (Abdomen) Inspection/Auscultation: normal bowel sounds; abdomen not distended Percussion/Palpation: abdomen soft; abdomen nontender Neurologic normal touch/pain/proprioception and moves all extremities; no focal motor deficits Psychiatric A+Ox3, euthymic affect Lymphatic no cervical or axillary lymphadenopathy Discharge Data Allergies Allergy/AdvReac Type Severity Reaction Status Date / Time No Known Allergies Allergy Verified 09/18/23 20:24 Consultations 09/18/23 23:42 ED Decision to Admit Stat 09/19/23 08:00 Consult Hematology Routine Hospital Course (1) Febrile neutropenia: 32-year-old male with past medical history significant for cerebral vasculitis ,hypertension, GERD, therapeutic opioid-induced constipation, kidney stones, migraine, depression, tobacco use disorder, history of petit mall seizures, 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, history of high risk of tumor lysis syndrome,t history of primary SU[employer] angiitis/occipital CVA in his childhood at the age of 7, had treatments from [id number], s/p craniotomy at age 10 in [place] and has been off immunosuppressive medication for more than 10 years: Following with [facility], cognitive and learning disabilities, patient recently in June of this year was diagnosed with Burkitt's lymphoma of intra-abdominal lymph nodes ,on chemotherapy finished 4 cycles and 2 more cycles left, chemotherapy- induced pancytopenia, last chemo last Thursday ,patient also had Neulasta after chemo and needed blood transfusion yesterday as outpatient due to blood counts being low. After transfusion he went to local Sw[place] pool to see his friends. Today morning he woke up complaining of swelling under the tongue, nausea and vomited a couple of times and not feeling well and mother brought him here today. In the ER he was spiking temperature. And also has pancytopenia. Was given IV cefepime and Vanco for febrile neutropenia. No diarrhea. No blood in the stools or black stools as per mother. Micturating okay. No chest pain or shortness of breath. No cough. No chills. Currently patient is sleeping. Arousable but goes back to sleep. All the history From mother. Because of the swelling of the tongue and soreness in mouth on soft food currently.. Hemodynamics are okay. Febrile neutropenia Neutropenia precautions Empiric IV cefepime and Vanco Temperature of 38.1 at presentation and since then afebrile except 37.9 noted to be this morning Blood culture is pending He has been feeling little better Will continue current intravenous antibiotic Temperature went up to 37.8 as of early this morning without any sweating Blood cultures have been negative which was taken on second of this month Will continue current intravenous antibiotic and repeat blood culture No more fever and chills and the white count has been improving Much better today without any significant symptoms Blood cultures x 2 have been negative No more fever for more than 24 hours Discussed with the centre[employer] radio operator, antibiotics will be discontinued and will be discharged home this afternoon Pancytopenia Chemo induced pancytopenia-received chemo last Thursday Hemoglobin 6.4, WBC 0.1, platelets 14 K Received 2 units of PRBC and 1 unit of platelet pheresis Hemoglobin remains low at 6.9 and platelet slightly improved at 23 Appreciate hematology oncology input and recommendation Will give another unit of blood transfusion Will administer 40 of intravenous Lasix as he is having positive balance so far No evidence of acute bleeding Will continue to monitor White count is slightly better at 1.56 and hemoglobin remains low at 7.6 and platelet is 24 unchanged White blood cell count has improved a lot and hemoglobin remains stable but platelet is not showing any improvement White count improved to normality and the platelet is minimally improved at 30 He has an appointment with his outpatient [employer] radio operator in about 2 to 3 days Discussed with the centre[employer] radio operator and he can be discharged Burkitt's lymphoma On chemo Continue chronic suppressive antibiotics Continue home pain medications and close monitor Follow-up with hematology/oncology Swelling under tongue Sore mouth Continue Magic mouthwash Can consider GI consult No significant swelling of the tongue and no bleeding on examination Will monitor-still has minimal swelling but has been eating and drinking reasonably well No obvious swelling of the tongue but he still feels tongue to be swollen Has been eating reasonably-denies any symptoms today History of seizures On Depakote and Topamax Migraines On Topamax Hypertension On propranolol Hypokalemia Replace Continue home potassium supplements Follow labs GERD Protonix and famotidine History of primary [employer] angiitis/occipital CVA at age 7 S/p cyclophosphamide, azathioprine, mycophenolate, methotrexate from [id number] S/p craniotomy at age 10 in [place] Currently off of immunosuppressive medications more than 10 years and follows with [facility] History of gout On allopurinol DVT prophylaxis SCDs Disposition Close monitoring telemetry Full code. Total Time Total Time Spent Total Time Spent (In Minutes): 35 minutes Discharge Plan Discharge Items Patient Disposition: Home - Self-Care Reason For Visit: FEBRILE NEUTROPENIA, PANCYTOPENIA Discharge Diagnosis: Febrile neutropenia, pancytopenia secondary to chemo, Burkitt's lymphoma with ongoing chemo Condition on Discharge: Fair Activity: Resume your previous activity Non-emergency contact: Primary Care Provider Call non-emergency contact if: you have any medication questions and your symptoms worsen Follow-up/Referrals: Kayla Reeder DO [Primary Care Provider] - (Date & Time 09/24/2023 10:40 AM Provider Calin Galloway PA-C Department Family Practice [facility] ) Diet: Regular Addtl Attending Provider Instructions: Please take precautions to avoid falls No change in your current medications Please keep follow-up appointments with your healthcare providers Pending Studies at Discharge: No Stand-Alone Forms: My exoro system, Smoking Cessation Medications and DC Order Prescriptions: Continued propranolol 40 mg tablet 40 mg PO BID aspirin [Brad Low Dose Aspirin] 81 mg tablet,delayed release (DR/EC) 81 mg PO DAILY celecoxib 200 mg capsule 200 mg PO QAM hydrochlorothiazide 12.5 mg tablet 12.5 mg PO DAILY divalproex [Depakote ER] 500 mg tablet extended release 24 hr 500 mg PO BID topiramate [Topamax] 100 mg tablet 100 mg PO BID fluticasone propion-salmeterol 250-50 mcg/dose Blister With Device 1 inh INHALATION BID cetirizine 10 mg tablet 10 mg PO QAM sulfamethoxazole-trimethoprim 400-80 mg tablet 1 tab PO QAM ondansetron HCl 8 mg Tablet 8 mg PO Q8H PRN (Reason: NAUSEA/VOMITING) fluconazole 200 mg tablet 400 mg PO QAM ondansetron HCl 4 mg Tablet 4 mg PO Q6H PRN (Reason: NAUSEA/VOMTING) acyclovir 400 mg Tablet 400 mg PO BID famotidine 20 mg Tablet 20 mg PO DAILY pantoprazole 40 mg tablet,delayed release (DR/EC) 40 mg PO DAILYBB allopurinol 300 mg tablet 300 mg PO QAM levofloxacin 750 mg tablet 750 mg PO QAM PRN (Reason: IF ANC <500.) albuterol sulfate 90 mcg/actuation HFA aerosol inhaler 2 inh INHALATION Q4H PRN (Reason: Shortness Of Breath Or Wheezing) morphine 15 mg tablet 15 mg PO Q6H PRN (Reason: Pain) buprenorphine HCl 2 mg tablet, sublingual 1 mg SUBLINGUAL BID potassium chloride 10 mEq tablet,ER particles/crystals 20 meq PO BID Magic Swizzle 15 ml mucous membrane QID Rx Instructions: SWISH AND SPIT Discharge Orders: Discharge Order (Routine); Ordered 09/22/23 Ordered By: Kim Vizcaino/Other Patient Handouts: Neutropenia Admission Data Admit Date/Time: 09/19/23 01:41 Attending Provider: Kim Gongora Admit Provider: Francis Benjamin Primary Care Provider: Kayla Reeder Other Providers: Francis Benjamin; Alyssa Jason Other Interventions: Discharge Summary Assessment (RN) Last Done: 09/22/23 13:14
== END 2023-09-22 14:59 | disposition home or self-care (01) | DRG 809 ==
LOC: ED 15:11 → 1E 09-19 01:41 → 2E 09-19 18:46
DX: Z86.73 Personal history of transient ischemic attack (TIA), and cerebral infarction without residual deficits; E87.6 Hypokalemia; D61.810 Antineoplastic chemotherapy induced pancytopenia; K21.9 Gastro-esophageal reflux disease without esophagitis; G43.909 Migraine, unspecified, not intractable, without status migrainosus; I77.6 Arteritis, unspecified; Z87.891 Personal history of nicotine dependence; Z79.82 Long term (current) use of aspirin; C83.70 Burkitt lymphoma, unspecified site; I10 Essential (primary) hypertension